=== PATIENT | male | born 1960 | race Caucasian/White ===

== ENCOUNTER → 2017-05-19 09:45 | Outpatient (CLI) | payer MEDICAID, SELFPAY ==
[2017-05-19 12:29] LABS: Hematocrit 40.3 % (40-54); Hemoglobin 13.6 g/dl (13.0-16.5); Mean Corp Hgb Conc 33.7 g/gl (32-36); Mean Corpuscular Hgb 33.9 pg (27.0-32.0); Mean Corpuscular Volume 100.5 fL (80-94); Mean Platelet Vol. 9.8 fl (6.2-12.0); Platelet Count 263 K/mm3 (150-450); RBC Distribution Width CV 12.7 % (11.6-14.6); RBC Distribution Width SD 46.2 fl (35.1-43.9); Red Blood Count 4.01 M/mm3 (4.6-6.2)
[2017-05-19 12:30] LABS: Scan Indicated on CBC? Y/N NO
[2017-05-19 12:51] LABS: Albumin, Serum 3.4 g/dL (3.2-5.0); BUN 17 mg/dL (7-18); BUN/Creat Ratio 13.9 RATIO (10-20); Calcium,Total 8.7 mg/dL (8.5-10.1); Chloride 99 mmol/L (98-107); Creatinine, Serum 1.22 mg/dL (0.70-1.30); EST Glomerular Filtration Rate 65 mL/min (>60); Est Glom Filt Rate - Afr Amer 79 mL/min (>60); Glucose 118 mg/dL (74-106); Phosphorus 2.2 mg/dL (2.5-4.9); Potassium 3.8 mmol/L (3.5-5.1); Sodium Level 135 mmol/L (136-145)
== END ==
PROVIDERS: Visit Provider Internal Medicine Nephrology
DX: N17.0 Acute kidney failure with tubular necrosis (principal); D64.9 Anemia, unspecified
CPT/HCPCS: 36415; 80069; 85027

== ENCOUNTER 2017-06-15 19:30 | Emergency (ER) | payer OTHER, MEDICAID, SELFPAY ==
[2017-06-15 19:32] VITALS: BP 148/76; PULSE 99; RESP 25; TEMP 36.9; O2SAT 96; BMI 31.8
[2017-06-15 20:15] VITALS: BP 141/80; PULSE 99; RESP 24; O2SAT 97
[2017-06-15] MEDS: Ondansetron 4 MG/2 ML Vial IV (20:15)
[2017-06-15 20:31] LABS: Absolute Neutrophil Count 4.4 X10^3/uL (2.0-7.7); Basophil# 0.04 X10^3/uL; Basophil% 0.6 % (0-1); Eosinophil# 0.06 X10^3/uL; Eosinophils% 0.9 % (0-5); Hematocrit 35.9 % (40-54); Hemoglobin 12.1 g/dl (13.0-16.5); Lymphocyte % 22.4 % (19-41); Mean Corp Hgb Conc 33.7 g/gl (32-36); Mean Corpuscular Volume 97.8 fL (80-94); Mean Platelet Vol. 9.1 fl (6.2-12.0); Monocyte# 0.71 X10^3/uL; Monocyte% 10.6 % (0-10); Neutrophil # 4.39 X10^3/uL (2.7-7.7); Neutrophil % 65.4 % (47-70); POSITIVE COUNT NO; POSITIVE DIFFERENTIAL NO; POSITIVE MORPHOLOGY NO; Platelet Count 213 K/mm3 (150-450); RBC Distribution Width SD 46.5 fl (35.1-43.9); Red Blood Count 3.67 M/mm3 (4.6-6.2); White Blood Count 6.7 K/mm3 (4.4-11.0)
[2017-06-15 20:44] LABS: ALB/GLOB Ratio 0.7 RATIO (0.9-2.4); AST(SGOT) 183 U/L (15-37); Alanine Aminotransfer ALT/SGPT 63 U/L (16-61); Alkaline Phosphatase 316 U/L (45-117); Anion Gap 12 (5-15); BUN 21 mg/dL (7-18); BUN/Creat Ratio 15.6 RATIO (10-20); Calcium,Total 7.7 mg/dL (8.5-10.1); Chloride 99 mmol/L (98-107); Creatinine, Serum 1.35 mg/dL (0.70-1.30); EST Glomerular Filtration Rate 58 mL/min (>60); Est Glom Filt Rate - Afr Amer 70 mL/min (>60); Estimated Creatinine Clearance 55.14 ml/min; Globulin 4.3 g/dL (2.2-4.2); Glucose 87 mg/dL (74-106); Lipase 420 U/L (73-393); Potassium 4.1 mmol/L (3.5-5.1); Protein, Total 7.3 g/dL (6.4-8.2); Sodium Level 132 mmol/L (136-145)
[2017-06-15 20:54] VITALS: BP 102/69; PULSE 99; RESP 15; O2SAT 94
--- NOTE | 2017-06-15 21:12 | ED.DCSUM_ITS ---
- ER Visit Summary Date of Service: 06/15/17 Chief Complaint: Abdominal pain History of Present Illness: The patient is a 56 M who has been having abdominal pain for the past 5 days. He describes sharp diffuse pain. He has also concerned about pain in his rectal area. He has had multiple episodes of diarrhea per day. They are now bloody. He has had nausea with vomiting. He took no medications for this at home. He denies any fevers. Physical Examination: Vital signs reviewed. HEENT exam unremarkable. Heart is regular rate and rhythm without murmurs. Lungs are clear to auscultation. Abdomen is soft diffuse tenderness to palpation. His rectal exam reveals significant tenderness with macerated skin around the anal area. Extremities reveal no edema. Skin exam normal. Neurologic exam normal. Test Results: Hemoglobin is 12.1 which is improved from his baseline. Sodium 132 ALT 63 AST 183 lipase 420. These are all significantly improved from his last visit Emergency Department Course and Treatment: She was given morphine and Zofran. He feels much better. I will send him home with Bentyl and cream for his anal area. He will follow up with his primary care physician Treatment Plan: [] Disposition: Discharge Impression: Abdominal pain This note was generated with [employer]ettaCore dictation software. It may contain incorrect words, spelling, and punctuation that were not noted in review of the chart prior to signing ED Disposition - Plan for ED Patient: Chief Complaint: Nausea/Vomiting/Diarrhea [facility] [[facility] -
--- NOTE | 2017-06-15 21:12 | ED.DEP ---
ED Disposition - Plan for ED Patient: Disposition: Home or Assisted Living Chief Complaint: Nausea/Vomiting/Diarrhea Instructions: ED Diet Vomiting Diarrhea Prescriptions: Dicyclomine HCl [Bentyl] 20 mg PO TIDAC #20 cap Vits A and D/White Pet/Lanolin [A and D Ointment] 113 gm TP TID #1 oint...g. [facility] [[facility] Provider] -
[2017-06-15 21:18] VITALS: BP 119/75; PULSE 95; RESP 16; O2SAT 93
== END 2017-06-15 21:23 | disposition home or self-care (01) ==
PROVIDERS: Emergency Provider Emergency Medicine
DX: R10.9 Unspecified abdominal pain (principal); R11.2 Nausea with vomiting, unspecified; R19.7 Diarrhea, unspecified; Z72.0 Tobacco use
CPT/HCPCS: 80053; 83690; 85025; 96374; 96375; 99285; A4216; J2405

== ENCOUNTER 2017-06-18 12:10 | Emergency (ER) | payer OTHER, MEDICAID, SELFPAY ==
[2017-06-18 12:12] VITALS: BP 169/93; PULSE 95; RESP 16; TEMP 36.6; O2SAT 98; BMI 31.2
--- NOTE | 2017-06-18 12:48 | ED.RN ---
PT WAS UP TO BSC AND C/O FAINT FEELING, PT WAS DIAPHORETIC, PALE, COOL COMPRESS APPLIED, VITAL SIGNS 148/73 82,22,96%
--- NOTE | 2017-06-18 12:50 | ED.RN ---
PRIMARY NURSE, DAILY PINORN INFORMED OF PT'S C/O FEELING FAINT.
--- NOTE | 2017-06-18 13:00 | CT_ITS ---
STUDY: CT ABDOMEN AND PELVIS WITH CONTRAST REASON FOR EXAM: Male, 56 years old. Rectal bleeding. Ethanol abuse. RADIATION DOSAGE (If Supplied By Facility): CTDIvol = ( 16.30 ) mGy, DLP = ( 1232.14 ) mGycm TECHNIQUE: Transaxial images were obtained from the dome of the diaphragm to the symphysis pubis without oral contrast. 100mL ml of Isovue 300 contrast was administered. Sagittal and coronal images were reconstructed. Individualized dose optimization techniques were used for this CT. COMPARISON: Comparison is made with prior study November 17, 2015. FINDINGS: The visualized lung bases are unremarkable. The visualized portions of the heart are within normal limits. There is decreased attenuation of the liver consistent with steatosis. Hepatomegaly. Normal gallbladder and extrahepatic biliary system. Normal spleen. Normal pancreas. Normal bilateral adrenal glands. Normal right kidney. Normal left kidney. There is a small hiatal hernia. Normal small intestine. There is evidence of diffuse circumferential thickening of the colon suggestive of diffuse colitis. Increased markings are seen in the surrounding peritoneal fat. There are surgical clips in the region of the appendix consistent with a prior appendectomy. There is diffuse atherosclerotic calcification of the abdominal aorta, without a demonstrated aneurysm. Normal inferior vena cava. There is borderline retroperitoneal lymphadenopathy with enlarged nodes no greater than 10mm in the short axis diameter. Normal urinary bladder. Normal abdominal wall. There are mild degenerative changes of the visualized lumbar spine. CT/Abdomen/Pelvis W IV Cont ONLY IMPRESSION: Hepatomegaly and diffuse fatty liver. Diffuse colitis. Electronically Signed: Remy Trivedi MD at 14:25 EST Tel [phone], Service support ,
[2017-06-18 13:09] LABS: Absolute Lymphocyte Count 1.51 X10^3/ul (0.83-4.51); Absolute Neutrophil Count 5.1 X10^3/uL (2.0-7.7); Basophil# 0.03 X10^3/uL; Basophil% 0.4 % (0-1); Eosinophil# 0.04 X10^3/uL; Eosinophils% 0.6 % (0-5); Hematocrit 38.4 % (40-54); Hemoglobin 13.2 g/dl (13.0-16.5); Lymphocyte # 1.51 X10^3/ul (4.0); Lymphocyte % 20.8 % (19-41); Mean Corp Hgb Conc 34.4 g/gl (32-36); Mean Corpuscular Hgb 33.2 pg (27.0-32.0); Mean Corpuscular Volume 96.7 fL (80-94); Mean Platelet Vol. 9.3 fl (6.2-12.0); Monocyte# 0.62 X10^3/uL; Monocyte% 8.5 % (0-10); Neutrophil # 5.05 X10^3/uL (2.7-7.7); Neutrophil % 69.6 % (47-70); Platelet Count 231 K/mm3 (150-450); RBC Distribution Width CV 12.5 % (11.6-14.6); Red Blood Count 3.97 M/mm3 (4.6-6.2); White Blood Count 7.3 K/mm3 (4.4-11.0)
[2017-06-18 13:10] LABS: POSITIVE COUNT NO; POSITIVE DIFFERENTIAL NO; POSITIVE MORPHOLOGY NO
[2017-06-18] MEDS: Ondansetron 4 MG/2 ML Vial IV (13:17)
[2017-06-18] MEDS: 0.9% Normal Saline 1,000 ML 150 ML IV (13:17)
[2017-06-18 13:19] LABS: International Normalized Ratio 1.2; Prothrombin Time (Protime)PT. 15.3 SECONDS (11.7-14.9)
[2017-06-18 13:20] LABS: Partial Thromboplast Time 32.2 Seconds (24.1-36.2)
[2017-06-18 13:21] LABS: AST(SGOT) 257 U/L (15-37); Alanine Aminotransfer ALT/SGPT 86 U/L (16-61); Albumin, Serum 3.3 g/dL (3.2-5.0); Alkaline Phosphatase 371 U/L (45-117); Anion Gap 14 (5-15); BUN 20 mg/dL (7-18); Bilirubin, Direct 0.29 mg/dL (0.00-0.30); Calcium,Total 8.2 mg/dL (8.5-10.1); Chloride 99 mmol/L (98-107); Creatinine, Serum 1.05 mg/dL (0.70-1.30); EST Glomerular Filtration Rate 77 mL/min (>60); Est Glom Filt Rate - Afr Amer 94 mL/min (>60); Estimated Creatinine Clearance 73.44 ml/min; Globulin 4.4 g/dL (2.2-4.2); Glucose 84 mg/dL (74-106); Potassium 3.7 mmol/L (3.5-5.1); Protein, Total 7.7 g/dL (6.4-8.2); Sodium Level 132 mmol/L (136-145)
[2017-06-18 13:55] VITALS: BP 127/84; PULSE 94; RESP 16; O2SAT 98
--- NOTE | 2017-06-18 15:34 | ED.DCSUM_ITS ---
- ER Visit Summary Date of Service: 06/18/17 Chief Complaint: Rectal bleeding History of Present Illness: The patient is a 56 M who was seen on June 15 for nausea, vomiting, diarrhea with bloody stools. Patient states he initially improved but is now worsened again. He denies nausea with dry heaves and states he has not been able to eat the last couple days. He does report passing blood rectally with bowel movements. He states he is only passing approximately 2 teaspoons of blood at the time. He is a history of an upper GI bleed secondary to Excedrin use in the past. He does have a history of alcoholism and is continuing to drink. Physical Examination: Vital signs on arrival include a blood pressure 169/93, otherwise normal. Patient's lying in bed no acute distress. He appears uncomfortable but not toxic. Heart is regular rate and rhythm. Lung sounds are clear. Abdomen is soft, distended, with mild diffuse tenderness palpation. There is no guarding or rebound. Hypoactive bowel sounds are present. Patient does appear anxious. I do not appreciate tremor. Test Results: CBC was normal white count with hemoglobin 13.2. This is improved when compared to his labs from a few days ago. Chemistry studies reveal sodium of 132 and a bicarb of 19. LFTs reveal alk phos of 371, ALT 86, AST 257. INR is 1.2. EtOH is 111. CT scan of the abdomen pelvis with IV contrast reveals hepatomegaly. There is diffuse colitis. Emergency Department Course and Treatment: Patient was given morphine, Zofran, and IV fluids. On repeat evaluation he is resting comfortably. Patient will prefer not to stay in the hospital. His blood counts are improved in a sound like he is only passing a small amount of blood at a time. I do feel that patient should be put on antibiotics and he will be started on Augmentin. He did asked to help with his anxiety and he will be given a dose of Ativan here. I think a lot of his anxiety stems from not been able to drink as much alcohol as he normally does. Patient does not want to attempt a p.o. challenge here and states he will eat something when he gets home. Treatment Plan: [] Disposition: Discharge Impression: Colitis This note was generated with BloomThat dictation software. It may contain incorrect words, spelling, and punctuation that were not noted in review of the chart prior to signing ED Disposition - Plan for ED Patient: Chief Complaint: GI Bleed [facility] [[facility]] -
--- NOTE | 2017-06-18 15:34 | ED.DEP ---
ED Disposition - Plan for ED Patient: Disposition: Home or Assisted Living Chief Complaint: GI Bleed Instructions: ED Gastroenteritis Bacterial Prescriptions: Amox/Clavulanate Tablet [Augmentin Tablet] 875 mg PO Q12H #20 tablet Referrals: [facility] [Primary Care Provider] - 1 Week
[2017-06-18] MEDS: Amox/Clavulanate 875 MG Tablet PO (15:48)
[2017-06-18] MEDS: LORazepam 2 MG/ML Syringe 1 MG IV (15:48)
[2017-06-18 15:49] VITALS: BP 159/99; PULSE 105; RESP 20
[2017-06-18 15:55] VITALS: BP 120/89; PULSE 78; RESP 21; O2SAT 96
== END 2017-06-18 15:56 | disposition home or self-care (01) ==
PROVIDERS: Emergency Provider Emergency Medicine
DX: K52.9 Noninfective gastroenteritis and colitis, unspecified (principal); F10.21 Alcohol dependence, in remission; E66.9 Obesity, unspecified; R16.0 Hepatomegaly, not elsewhere classified; I10 Essential (primary) hypertension; E78.00 Pure hypercholesterolemia, unspecified; J44.9 Chronic obstructive pulmonary disease, unspecified; K21.9 Gastro-esophageal reflux disease without esophagitis; Z86.73 Personal history of transient ischemic attack (TIA), and cerebral infarction without residual deficits; Z72.0 Tobacco use; Z86.19 Personal history of other infectious and parasitic diseases; Y90.5 Blood alcohol level of 100-119 mg/100 ml; Z79.899 Other long term (current) drug therapy
CPT/HCPCS: 74177; 80048; 80076; 80320; 85025; 85610; 85730; 96361; 96374; 96375; 99285; J7030; J7040; Q9967; A4216; G0480; J2405

== ENCOUNTER → 2017-11-18 10:53 | Outpatient (CLI) | payer MEDICAID, SELFPAY ==
[2017-11-18 13:02] LABS: Albumin, Serum 3.1 g/dL (3.2-5.0); BUN 7 mg/dL (7-18); BUN/Creat Ratio 9.1 RATIO (10-20); Calcium,Total 8.3 mg/dL (8.5-10.1); Chloride 98 mmol/L (98-107); Creatinine, Serum 0.77 mg/dL (0.70-1.30); EST Glomerular Filtration Rate 111 mL/min (>60); Est Glom Filt Rate - Afr Amer 134 mL/min (>60); Glucose 104 mg/dL (74-106); Phosphorus 2.2 mg/dL (2.5-4.9); Potassium 4.1 mmol/L (3.5-5.1); Sodium Level 130 mmol/L (136-145)
== END ==
PROVIDERS: Visit Provider Internal Medicine Nephrology
DX: N17.0 Acute kidney failure with tubular necrosis (principal)
CPT/HCPCS: 36415; 80069

== ENCOUNTER 2017-11-24 22:14 | Emergency (ER) | payer OTHER, MEDICAID, SELFPAY ==
[2017-11-24 22:15] VITALS: BP 93/57; PULSE 108; RESP 22; TEMP 37.3; O2SAT 96; BMI 31.2
[2017-11-24] MEDS: 0.9% Normal Saline 1,000 ML 1000 ML IV ×2 (22:15→23:15)
--- NOTE | 2017-11-24 23:03 | ED.VISSUMM ---
- ER Visit Summary Date of Service: 11/24/17 Chief Complaint: Weakness, near syncope History of Present Illness: The patient is a 57 M presents by EMS for weakness and near syncope at home. States almost blacked out, however recalls the events. Did have been vomiting for the last 3 days, mostly yesterday today only couple times. No hematemesis. No diarrhea. Nausea improved and tolerating some fluids. Complains of sweats. States decreased urine output over last 2 hours. States he was in dialysis a year ago short-term for rhabdomyolysis. Denied chest pains or shortness of breath. No cough. Does admit to continued alcohol daily, however only drink 2 beers today. No injuries. Denies any abdominal pain. Physical Examination: General: Alert and oriented ?3, no acute distress HEENT: Normocephalic, atraumatic. Dry mucosa membranes Neck: supple, nontender. Cardiovascular: Regular tachycardic rate and rhythm, no murmurs Respiratory: Normal breath sounds, symmetric, no distress Abdomen: Soft, nontender, nondistended, no guarding or rebound Extremities: Nontender, no edema, pulses intact ?4 Neuro: no focal neurological deficits. Test Results: WBC 9, hemoglobin 12.8. Potassium 5.3. Sodium 129. Creatinine 1.56. ALP 382. AST 162. Lactic acid 3.3. Blood culture ?2 pending. EKG sinus rate [address] or T-wave changes. Chest x-ray reviewed negative. Emergency Department Course and Treatment: Patient given 2 L of fluid. Dry mucosa membranes. Lab workup noted acute kidney injury creatinine 1.56, up from 0.7 previously. Sodium 129, potassium 5.3. Slightly elevated transaminitis. Sodium and liver enzymes similar to previous lab. Lactate 3.3. Likely from his vomiting over the past day. He has a nonsurgical abdomen. Reevaluation had improving symptoms, discussed with patient he is having multiple abnormal electrolytes including kidney injury and lactic acidosis. I recommend him stay overnight for hydration and recheck labs, however he declines this. Risks and benefits discussed. He is alert and oriented ?3. He does have capabilities of making his own decisions. He states he has an appointment with kitchen help handyman in 2 days. He will keep his appointment, however any worsening symptoms he understands to return. AMA papers were signed. Treatment Plan: [] Disposition: AGAINST MEDICAL ADVICE Impression: 1. Acute kidney injury 2. Lactic acidosis 3. Hyponatremia 4. Transaminitis This note was generated with W[employer] dictation software. It may contain incorrect words, spelling, and punctuation that were not noted in review of the chart prior to signing ED Disposition - Plan for ED Patient: Disposition: Home or Assisted Living Chief Complaint: Weakness Diagnosis: Acute kidney injury, Lactic acidosis, Hyponatremia, Transaminitis Instructions: ED Insufficiency Renal, ED Diet Vomiting Diarrhea Referrals: [facility] [Primary Care Provider] - Additional Instructions: Creatinine 1.56. Sodium 129. Potassium 5.3. ALP 382. AST 162. Continue oral hydration, follow with your kidney doctor. Return if worsening symptoms.
[2017-11-24 23:13] VITALS: BP 119/63; PULSE 102; RESP 21; O2SAT 95
[2017-11-24 23:16] LABS: Absolute Lymphocyte Count 1.47 X10^3/ul (0.83-4.51); Absolute Neutrophil Count 6.7 X10^3/uL (2.0-7.7); Basophil# 0.03 X10^3/uL; Basophil% 0.3 % (0-1); Eosinophil# 0.09 X10^3/uL; Hematocrit 37.9 % (40-54); Hemoglobin 12.8 g/dl (13.0-16.5); Lymphocyte # 1.47 X10^3/ul (4.0); Lymphocyte % 16.3 % (19-41); Mean Corp Hgb Conc 33.8 g/gl (32-36); Mean Corpuscular Hgb 31.6 pg (27.0-32.0); Mean Corpuscular Volume 93.6 fL (80-94); Mean Platelet Vol. 9.9 fl (6.2-12.0); Monocyte# 0.69 X10^3/uL; Monocyte% 7.7 % (0-10); Neutrophil # 6.72 X10^3/uL (2.7-7.7); Neutrophil % 74.6 % (47-70); Platelet Count 161 K/mm3 (150-450); RBC Distribution Width CV 13.5 % (11.6-14.6); RBC Distribution Width SD 46.3 fl (35.1-43.9); Red Blood Count 4.05 M/mm3 (4.6-6.2)
[2017-11-24 23:17] LABS: POSITIVE COUNT NO; POSITIVE DIFFERENTIAL NO; POSITIVE MORPHOLOGY NO
[2017-11-24 23:36] LABS: ALB/GLOB Ratio 0.5 RATIO (0.9-2.4); AST(SGOT) 162 U/L (15-37); Alanine Aminotransfer ALT/SGPT 38 U/L (16-61); Albumin, Serum 2.6 g/dL (3.2-5.0); Alkaline Phosphatase 382 U/L (45-117); Anion Gap 11 (5-15); BUN 6 mg/dL (7-18); BUN/Creat Ratio 3.8 RATIO (10-20); Chloride 95 mmol/L (98-107); Creatinine, Serum 1.56 mg/dL (0.70-1.30); EST Glomerular Filtration Rate 49 mL/min (>60); Est Glom Filt Rate - Afr Amer 59 mL/min (>60); Estimated Creatinine Clearance 48.85 ml/min; Glucose 80 mg/dL (74-106); Potassium 5.3 mmol/L (3.5-5.1); Protein, Total 7.6 g/dL (6.4-8.2); Sodium Level 129 mmol/L (136-145)
[2017-11-24 23:38] LABS: Lactic Acid 3.3 mmol/L (0.4-2.0)
--- NOTE | 2017-11-24 23:39 | ED.RN ---
LAB CALLED TO REPORT LACTIC ACID 3.3. DR. DANG NOTIFIED.
[2017-11-25] MEDS: diazePAM 2 MG Tablet PO (00:39)
[2017-11-25 00:49] VITALS: BP 111/63; PULSE 106; RESP 20; O2SAT 96
--- NOTE | 2017-11-25 00:50 | ED.RN ---
AFTER DR. DANG CONVERSATION WITH PT ABOUT ADMISSION TO HOSPITAL, PT DECIDED TO LEAVE AMA. PT WAS EXPLAINED THE RISK OF LEAVING AND IS CALLING A CAB.
[2017-11-25 03:04] LABS: Reflex Lactate? Y
== END 2017-11-25 00:52 | disposition left against medical advice (07) ==
PROVIDERS: Emergency Provider Emergency Medicine
DX: N17.9 Acute kidney failure, unspecified (principal); E87.2 Acidosis; E87.1 Hypo-osmolality and hyponatremia; I10 Essential (primary) hypertension; E78.00 Pure hypercholesterolemia, unspecified; J44.9 Chronic obstructive pulmonary disease, unspecified; Z72.0 Tobacco use
CPT/HCPCS: 71046; 80053; 83605; 85025; 87040; 93005; 94760; 96360; 99285; J7030; A4216

== ENCOUNTER → 2017-11-26 10:47 | Outpatient (CLI) | payer MEDICAID, SELFPAY ==
[2017-11-26 12:32] LABS: Urine Sodium 18 mmol/L (Not Establ.)
[2017-11-26 12:38] LABS: Osmolality, Urine 92 mOsm/KG
[2017-11-26 12:50] LABS: ALB/GLOB Ratio 0.6 RATIO (0.9-2.4); AST(SGOT) 111 U/L (15-37); Alanine Aminotransfer ALT/SGPT 41 U/L (16-61); Albumin, Serum 2.7 g/dL (3.2-5.0); Alkaline Phosphatase 370 U/L (45-117); Anion Gap 13 (5-15); BUN 9 mg/dL (7-18); BUN/Creat Ratio 9.6 RATIO (10-20); Calcium,Total 8.2 mg/dL (8.5-10.1); Chloride 103 mmol/L (98-107); Creatinine, Serum 0.94 mg/dL (0.70-1.30); EST Glomerular Filtration Rate 88 mL/min (>60); Est Glom Filt Rate - Afr Amer 107 mL/min (>60); Globulin 4.6 g/dL (2.2-4.2); Glucose 92 mg/dL (74-106); Potassium 3.4 mmol/L (3.5-5.1); Protein, Total 7.3 g/dL (6.4-8.2); Sodium Level 136 mmol/L (136-145)
== END ==
PROVIDERS: Visit Provider Internal Medicine Nephrology
DX: N17.9 Acute kidney failure, unspecified (principal); E87.1 Hypo-osmolality and hyponatremia
CPT/HCPCS: 36415; 80053; 83935; 84300

== ENCOUNTER → 2018-01-26 14:34 | Outpatient (CLI) | payer OTHER, MEDICAID, SELFPAY ==
[2018-01-26 16:54] LABS: ALB/GLOB Ratio 0.7 RATIO (0.9-2.4); AST(SGOT) 48 U/L (15-37); Alanine Aminotransfer ALT/SGPT 24 U/L (16-61); Albumin, Serum 3.2 g/dL (3.2-5.0); Alkaline Phosphatase 253 U/L (45-117); Anion Gap 12 (5-15); BUN 9 mg/dL (7-18); BUN/Creat Ratio 8.7 RATIO (10-20); Calcium,Total 8.9 mg/dL (8.5-10.1); Chloride 97 mmol/L (98-107); Creatinine, Serum 1.04 mg/dL (0.70-1.30); EST Glomerular Filtration Rate 78 mL/min (>60); Est Glom Filt Rate - Afr Amer 95 mL/min (>60); Globulin 4.9 g/dL (2.2-4.2); Glucose 97 mg/dL (74-106); Potassium 4.1 mmol/L (3.5-5.1); Protein, Total 8.1 g/dL (6.4-8.2); Sodium Level 131 mmol/L (136-145)
== END ==
PROVIDERS: Visit Provider Internal Medicine Nephrology
DX: N17.9 Acute kidney failure, unspecified (principal)
CPT/HCPCS: 36415; 80053

== ENCOUNTER → 2018-05-27 14:12 | Outpatient (CLI) | payer MEDICAID, SELFPAY ==
[2018-05-27 16:31] LABS: Albumin, Serum 3.4 g/dL (3.2-5.0); BUN 9 mg/dL (7-18); BUN/Creat Ratio 7.7 RATIO (10-20); Calcium,Total 8.9 mg/dL (8.5-10.1); Chloride 100 mmol/L (98-107); Creatinine, Serum 1.17 mg/dL (0.70-1.30); EST Glomerular Filtration Rate 68 mL/min (>60); Est Glom Filt Rate - Afr Amer 82 mL/min (>60); Glucose 95 mg/dL (74-106); Phosphorus 1.8 mg/dL (2.5-4.9); Potassium 4.1 mmol/L (3.5-5.1); Sodium Level 134 mmol/L (136-145)
== END ==
PROVIDERS: Visit Provider Internal Medicine Nephrology
DX: N17.0 Acute kidney failure with tubular necrosis (principal)
CPT/HCPCS: 36415; 80069

== ENCOUNTER 2018-08-17 17:52 | Emergency (ER) | payer OTHER, MEDICAID, SELFPAY ==
[2018-08-17 17:54] VITALS: BP 185/87; PULSE 89; RESP 16; TEMP 36.7; O2SAT 93; BMI 31.3
--- NOTE | 2018-08-17 17:59 | ED.RN ---
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 PT IS UNABLE TO DRIVE HOME. CALL TAMMI FOR RIDE.
[2018-08-17 18:16] VITALS: BP 185/87; PULSE 89; RESP 16; TEMP 36.7; O2SAT 93
[2018-08-17 18:19] LABS: Absolute Lymphocyte Count 1.22 X10^3/ul (0.83-4.51); Absolute Neutrophil Count 5.6 X10^3/uL (2.0-7.7); Basophil# 0.03 X10^3/uL; Basophil% 0.4 % (0-1); Eosinophil# 0.03 X10^3/uL; Eosinophils% 0.4 % (0-5); Hemoglobin 13.5 g/dl (13.0-16.5); Lymphocyte # 1.22 X10^3/ul (4.0); Lymphocyte % 16.5 % (19-41); Mean Corp Hgb Conc 33.8 g/gl (32-36); Mean Corpuscular Hgb 29.3 pg (27.0-32.0); Mean Corpuscular Volume 86.8 fL (80-94); Mean Platelet Vol. 9.3 fl (6.2-12.0); Monocyte# 0.54 X10^3/uL; Monocyte% 7.3 % (0-10); Neutrophil # 5.57 X10^3/uL (2.7-7.7); Neutrophil % 75.3 % (47-70); Platelet Count 183 K/mm3 (150-450); RBC Distribution Width CV 15.2 % (11.6-14.6); RBC Distribution Width SD 48.3 fl (35.1-43.9); Red Blood Count 4.61 M/mm3 (4.6-6.2); White Blood Count 7.4 K/mm3 (4.4-11.0)
[2018-08-17 18:21] LABS: POSITIVE COUNT NO; POSITIVE DIFFERENTIAL NO
[2018-08-17 18:22] LABS: POSITIVE MORPHOLOGY NO
[2018-08-17 18:32] LABS: Anion Gap 5 (5-15); BUN 12 mg/dL (7-18); BUN/Creat Ratio 12.8 RATIO (10-20); Calcium,Total 8.8 mg/dL (8.5-10.1); Chloride 101 mmol/L (98-107); Creatinine, Serum 0.94 mg/dL (0.70-1.30); EST Glomerular Filtration Rate 88 mL/min (>60); Est Glom Filt Rate - Afr Amer 107 mL/min (>60); Estimated Creatinine Clearance 81.06 ml/min; Glucose 95 mg/dL (74-106); Potassium 4.3 mmol/L (3.5-5.1); Sodium Level 133 mmol/L (136-145)
[2018-08-17 18:47] LABS: Bacteria 0 SEEN /hpf (None Seen); Mucous, Urine 0 SEEN /hpf (<or=2+); Red Blood Cells-Urine 0 SEEN /hpf (0-5); Squamous Epithelial Cells - UA 0 SEEN /hpf (0-5); White Blood Cells 0 SEEN /hpf (0-5)
[2018-08-17 19:02] LABS: Color, Urine Yellow (Yellow); Glucose, Dipstick Normal (Normal); Ketone-Dipstick Negative (Negative); Leukocyte Esterase-Dipstick Negative /ul (Negative); Nitrite-Dipstick Negative (Negative); Occult Blood-Urine 10 /ul (Negative); Protein-Dipstick 100 mg/dl (Negative); Urine Bilirubin Dipstick Negative (Negative); Urine Clarity Clear (Clear); Urine Urobilinogen Normal (Normal)
[2018-08-17 19:22] VITALS: BP 185/104; PULSE 90; RESP 16; TEMP 36.8; O2SAT 94
--- NOTE | 2018-08-17 19:25 | ED.DCSUM_ITS ---
History of Present Illness Chief Complaint: General Illness Informant: Patient Onset: Yesterday Context: Gradual Onset Timing: Continuous Narrative: Patient states since yesterday he has had a constellation of symptoms including nonproductive cough, nausea with dry heaving, and left-sided mid abdominal cramping, myalgias, malaise, sweats, subjective fevers, increased anxiety, swelling of both legs, and some shortness of breath that does not feel like wheezing/COPD which she has a history of. He is on no home oxygen. Denies any chest pain. No diarrhea or changes in bowel movements, no blood or melena. No urinary symptoms. States he is able to eat and drink, simply had dry heaving only. States he is otherwise always compliant with his medications but has not taken them today which includes his anxiety medicine. - Past Medical History (1) Anxiety Status: Chronic (2) Alcohol abuse Status: Chronic (3) Atrial fibrillation with RVR Status: Resolved (4) COPD (chronic obstructive pulmonary disease) Status: Chronic (5) Carotid stenosis Status: Chronic (6) Colon, diverticulosis Status: Chronic (7) Depression Status: Chronic (8) GERD (gastroesophageal reflux disease) Status: Chronic (9) HTN (hypertension) Status: Chronic (10) Hepatitis C Status: Chronic (11) Hyperlipemia Status: Chronic (12) Pancreatitis Status: Chronic (13) Stroke Status: Chronic (14) RENETTA (obstructive sleep apnea) Status: Chronic Past Medical History - Allergies and Home Meds Allergies/Adverse Reactions: Allergies No Known Allergies Allergy (Verified 08/17/18 17:56) Primary Care Physician: [place] [Primary [facility] Provider] - Surgical History: - - surgery on left foot due to accident, carotid endarterectemy on the right side. Smoking Status: Current every day smoker - Family History Maternal Family History: Reports: No pertinent history Paternal Family History: Reports: - - alcoholism Review of Systems General: Reports: Chills, Fever, Malaise, Subjective, Sweats Eyes: Denies: Visual changes - bilaterally, Diplopia ENT: Denies: Rhinorrhea, Sore throat Cardiovascular: Denies: Chest pain, Palpitations Respiratory: Reports: Dyspnea, Cough, Dyspnea on exertion. Denies: Sputum, Orthopnea, Paroxysmal nocturnal dyspnea Gastrointestinal: Reports: Abdominal pain, Nausea, Vomiting. Denies: Diarrhea, Melena, Hematochezia Genitourinary: Denies: Dysuria, Hematuria, Frequency Musculoskeletal: Reports: Myalgias, Swelling. Denies: Back pain, Extremity Pain Skin: Denies: Rash, Abscess, Wounds Neurological: Denies: Headache, Weakness, Numbness Physical Exam Vital Signs/Narrative: Vital Signs Temp Pulse Resp BP Pulse Ox 08/17/18 18:16 98.1 F 89 16 185/87 H 93 08/17/18 17:54 98.1 F 89 16 185/87 H 93 Inital Vital Signs reviewed: Yes General: Well nourished, Well developed, No Acute Distress Head: Normocephalic, Atraumatic Eyes: Perrl, EOMI ENT: Moist mucous membranes, No rhinorrhea. Negative for: Sinus tenderness Neck: Supple, Nontender, No lymphadenopathy, No JVD Cardiovascular: Regular rate, Regular rhythm, No murmurs, Normal S1, Normal S2. Negative for: Tachycardia Respiratory: No distress, CTA bilaterally, Chest nontender Abdomen: Soft, Nondistended, Normal bowel sounds, Tender - mild LUQ and across upper abd Back: Nontender, Normal Inspection. Negative for: CVA tenderness Extremities: Nontender, No edema. Negative for: Calf Tenderness Skin: Normal color, No rash, No Trauma Neurological: Alert, Oriented x3, Cranial nerves II-XII grossly intact, Normal Strength, Normal Sensation Psychological: Normal Mood, Agitated - and anxious Diagnostic/Tx/Re-eval Impressions Chest X-Ray 08/17/18 19:40 IMPRESSION: No acute cardiopulmonary pathology Electronically Signed: Peter Amaral MD at 20:06 EDT , Service support , 08/17/18 19:40 CXR [Chest PA and Lateral] [RAD] Stat Laboratory Results 08/17/18 08/17/18 08/17/18 18:10 18:10 18:10 WBC 7.4 RBC 4.61 Hgb 13.5 Hct 40.0 MCV 86.8 MCH 29.3 MCHC 33.8 RDW 15.2 H RDW Differential 48.3 H Plt Count 183 MPV 9.3 Immature Gran % (Auto) 0.100 Neut % (Auto) 75.3 H Lymph % (Auto) 16.5 L [place] % (Auto) 7.3 Eos % (Auto) 0.4 Baso % (Auto) 0.4 Absolute Neuts (auto) 5.6 Absolute Lymphs (auto) 1.22 Total Counted Not Reportable Sodium 133 L Potassium 4.3 Chloride 101 Carbon Dioxide 27.0 Anion Gap 5 BUN 12 Creatinine 0.94 Estim Creat Clear Calc 81.06 Est GFR (MDRD) Af Amer 107 Est GFR (MDRD) Non-Af 88 BUN/Creatinine Ratio 12.8 Glucose 95 Calcium 8.8 Total Bilirubin Direct Bilirubin AST ALT Alkaline Phosphatase Troponin I B-Natriuretic Peptide 802.2 H Total Protein Albumin Globulin Urine Color Urine Clarity Urine pH Ur Specific [place] Urine Protein Urine Glucose (UA) Urine Ketones Urine Occult Blood Urine Nitrite Urine Bilirubin Urine Urobilinogen Ur Leukocyte Esterase Urine RBC Urine WBC Ur Squamous Epith Cells Urine Bacteria Urine Mucus 08/17/18 08/17/18 18:10 18:40 WBC RBC Hgb Hct MCV MCH MCHC RDW RDW Differential Plt Count MPV Immature Gran % (Auto) Neut % (Auto) Lymph % (Auto) [place] % (Auto) Eos % (Auto) Baso % (Auto) Absolute Neuts (auto) Absolute Lymphs (auto) Total Counted Sodium Potassium Chloride Carbon Dioxide Anion Gap BUN Creatinine Estim Creat Clear Calc Est GFR (MDRD) Af Amer Est GFR (MDRD) Non-Af BUN/Creatinine Ratio Glucose Calcium Total Bilirubin 0.50 Direct Bilirubin 0.24 AST 196 H ALT 47 Alkaline Phosphatase 403 H Troponin I < 0.015 B-Natriuretic Peptide Total Protein 8.1 Albumin 3.5 Globulin 4.6 H Urine Color Yellow Urine Clarity Clear Urine pH 6.0 Ur Specific [place] 1.010 Urine Protein 100 H Urine Glucose (UA) Normal Urine Ketones Negative Urine Occult Blood 10 H Urine Nitrite Negative Urine Bilirubin Negative Urine Urobilinogen Normal Ur Leukocyte Esterase Negative Urine RBC 0 SEEN Urine WBC 0 SEEN Ur Squamous Epith Cells 0 SEEN Urine Bacteria 0 SEEN Urine Mucus 0 SEEN - Medical Decision Making Other than slight elevations of AST and alkaline phosphatase, which she has had chronically in the past, his work-up is unremarkable showing no pneumonia cardiac etiology. He was treated with Zofran, fluids, Toradol, GI cocktail. On reevaluation he is feeling much better and on reexamination, his abdomen is soft nontender and he states the pain is gone. Therefore I do not think he needs a CT of the abdomen and pelvis. He has no leukocytosis. I suspect he has a viral syndrome. Prescribed Zofran, supportive care advised as well as follow-up if he does not have resolution or improvement after a week. He is comfortable with that plan going home. ED Disposition - Plan for ED Patient: Disposition: Home or Assisted Living Diagnosis: Viral syndrome, Left sided abdominal pain, Anxiety Instructions: ED Viral Syndrome Prescriptions: Ondansetron [Zofran] 8 mg PO Q8H PRN PRN #10 tablet PRN Reason: Nausea [facility] - 1 Week if not improving
--- NOTE | 2018-08-17 19:40 | RAD_ITS ---
STUDY: X-RAY CHEST REASON FOR EXAM: Male, 57 years old. Cough with nausea TECHNIQUE: PA and lateral COMPARISON: November 24, 2017 FINDINGS: Nonspecific elevation of the right hemidiaphragm. Lungs are clear. There is no demonstrated pleural abnormality. Normal size heart. Normal mediastinum and emma. Normal visualized pulmonary arteries. Normal visualized aortic arch and descending thoracic aorta. Vascular stent noted within the right apical region Normal visualized thoracic spine. Normal visualized ribs, clavicles, and shoulders. There is no demonstrated abnormality of the visualized soft tissue structures of the upper abdomen. No significant change since prior study RAD/Chest PA and Lateral IMPRESSION: No acute cardiopulmonary pathology Electronically Signed: Peter Amaral MD at 20:06 EDT , Service support ,
[2018-08-17] MEDS: Ketorolac 30 MG/ML Syringe IV (19:42)
[2018-08-17] MEDS: LORazepam 2 MG/ML Syringe 0.5 MG IV (19:42)
[2018-08-17] MEDS: Ondansetron 4 MG/2 ML Vial IV (19:42)
[2018-08-17] MEDS: Mag Hydrox/Al Hydrox/Simeth 30 ML UDC PO (19:44)
[2018-08-17 19:57] LABS: AST(SGOT) 196 U/L (15-37); Alanine Aminotransfer ALT/SGPT 47 U/L (16-61); Albumin, Serum 3.5 g/dL (3.2-5.0); Alkaline Phosphatase 403 U/L (45-117); Bilirubin, Direct 0.24 mg/dL (0.00-0.30); Globulin 4.6 g/dL (2.2-4.2); Protein, Total 8.1 g/dL (6.4-8.2)
[2018-08-17 20:00] VITALS: BP 186/101; PULSE 94; RESP 16; TEMP 36.8; O2SAT 94
[2018-08-17 20:07] LABS: BNP,B-Type NATRIURETIC PEPTIDE 802.2 pg/mL (0-100)
[2018-08-17 21:28] VITALS: BP 169/81; PULSE 78; RESP 17; O2SAT 97
== END 2018-08-17 21:30 | disposition home or self-care (01) ==
PROVIDERS: Emergency Provider Emergency Medicine
DX: B34.9 Viral infection, unspecified (principal); F41.9 Anxiety disorder, unspecified; R10.9 Unspecified abdominal pain; F17.200 Nicotine dependence, unspecified, uncomplicated; G47.33 Obstructive sleep apnea (adult) (pediatric); E78.5 Hyperlipidemia, unspecified; I10 Essential (primary) hypertension; K21.9 Gastro-esophageal reflux disease without esophagitis; B18.2 Chronic viral hepatitis C; J44.9 Chronic obstructive pulmonary disease, unspecified; I48.91 Unspecified atrial fibrillation; F10.10 Alcohol abuse, uncomplicated; Y90.9 Presence of alcohol in blood, level not specified; Z86.73 Personal history of transient ischemic attack (TIA), and cerebral infarction without residual deficits
CPT/HCPCS: 71046; 80048; 80076; 81001; 83880; 84484; 85025; 96361; 96374; 96375; 99284; J7040; A4216; J2405

== ENCOUNTER 2018-08-30 19:37 | Emergency (ER) | payer OTHER, MEDICAID, SELFPAY ==
[2018-08-30 19:38] VITALS: BP 145/82; PULSE 83; RESP 15; TEMP 36.6; O2SAT 94; BMI 30.4
--- NOTE | 2018-08-30 20:18 | ED.VISSUMM ---
- ER Visit Summary Date of Service: 08/30/18 Chief Complaint: Anxiety History of Present Illness: The patient is a 57 M dates for 3 weeks he has had body aches with associated nausea, vomiting, diarrhea and shakes. [facility] Was seen here 2 weeks ago had a negative work-up at that time. He has had 2 prior strokes from right carotid disease with a carotid endarterectomy. He had prior pancreatitis. Denies any fever. No dysuria. No melena. Physical Examination: Well-appearing middle-age male. Vital signs stable afebrile. H EENT exam unremarkable. Neck nontender no lymphadenopathy. Lungs clear to auscultation bilaterally. Heart regular rhythm no murmur. Abdomen is soft and nontender normal bowel sounds no peritoneal signs. Patient is moving all 4 extremities. Neurovascularly intact. Calves are nontender without edema or cords. Neurologically he is awake and alert with no focal motor deficits. Equal symmetrical automobile contract clerk strength bilaterally. Dorsi plantarflexion intact. Test Results: CBC unremarkable white count 7. Hemoglobin 13. No bands. Chemistries sodium 133. Gap of 10. Creatinine 1. Emergency Department Course and Treatment: Clinically patient has an unremarkable exam I did screening labs. I will get a liter normal saline due to his vomiting and diarrhea. Patient was given a milligram of Ativan per his request for anxiety. On repeat 2240 is doing well. Treatment Plan: Follow-up with the MD in [place]. Disposition: discharge Impression: Nausea, vomiting and diarrhea Anxiety This note was generated with [employer] dictation software. It may contain incorrect words, spelling, and punctuation that were not noted in review of the chart prior to signing ED Disposition - Plan for ED Patient: Disposition: Home or Assisted Living Diagnosis: Anxiety Instructions: ED Stress React [facility] - 3-5 Days if not improving Additional Instructions: Plenty of fluids and rest., Follow-up with your MD doctor.
--- NOTE | 2018-08-30 20:45 | ED.DEP ---
ED Disposition - Plan for ED Patient: Disposition: Home or Assisted Living Diagnosis: Anxiety Instructions: ED Stress React [facility] - 3-5 Days if not improving Additional Instructions: Plenty of fluids and rest., [facility].
[2018-08-30 20:52] LABS: Absolute Lymphocyte Count 1.16 X10^3/ul (0.83-4.51); Absolute Neutrophil Count 5.4 X10^3/uL (2.0-7.7); Basophil# 0.04 X10^3/uL; Basophil% 0.5 % (0-1); Eosinophil# 0.05 X10^3/uL; Eosinophils% 0.7 % (0-5); Hematocrit 38.6 % (40-54); Hemoglobin 13.2 g/dl (13.0-16.5); Lymphocyte # 1.16 X10^3/ul (4.0); Lymphocyte % 15.6 % (19-41); Mean Corp Hgb Conc 34.2 g/gl (32-36); Mean Corpuscular Hgb 30.1 pg (27.0-32.0); Mean Corpuscular Volume 88.1 fL (80-94); Mean Platelet Vol. 9.5 fl (6.2-12.0); Monocyte# 0.72 X10^3/uL; Monocyte% 9.7 % (0-10); Neutrophil # 5.44 X10^3/uL (2.7-7.7); Neutrophil % 73.4 % (47-70); Platelet Count 166 K/mm3 (150-450); RBC Distribution Width CV 15.6 % (11.6-14.6); RBC Distribution Width SD 50.1 fl (35.1-43.9); Red Blood Count 4.38 M/mm3 (4.6-6.2); White Blood Count 7.4 K/mm3 (4.4-11.0)
[2018-08-30] MEDS: 0.9% Normal Saline 1,000 ML 1000 ML IV (20:53)
[2018-08-30 20:54] VITALS: BP 141/73; PULSE 82; RESP 15; O2SAT 93
[2018-08-30 20:57] LABS: POSITIVE COUNT NO; POSITIVE DIFFERENTIAL NO; POSITIVE MORPHOLOGY NO
[2018-08-30] MEDS: LORazepam 1 MG Tablet PO (21:03)
[2018-08-30 21:37] LABS: Anion Gap 10 (5-15); BUN 14 mg/dL (7-18); BUN/Creat Ratio 12.5 RATIO (10-20); Calcium,Total 8.5 mg/dL (8.5-10.1); Chloride 100 mmol/L (98-107); Creatinine, Serum 1.12 mg/dL (0.70-1.30); EST Glomerular Filtration Rate 72 mL/min (>60); Est Glom Filt Rate - Afr Amer 87 mL/min (>60); Estimated Creatinine Clearance 68.03 ml/min; Glucose 89 mg/dL (74-106); Potassium 3.8 mmol/L (3.5-5.1); Sodium Level 133 mmol/L (136-145)
[2018-08-30 22:00] VITALS: RESP 15; O2SAT 97
[2018-08-30 23:06] VITALS: BP 141/73; PULSE 82; RESP 15; O2SAT 93
== END 2018-08-30 23:07 | disposition home or self-care (01) ==
PROVIDERS: Emergency Provider Emergency Medicine
DX: R11.2 Nausea with vomiting, unspecified (principal); R19.7 Diarrhea, unspecified; F41.9 Anxiety disorder, unspecified; Z86.73 Personal history of transient ischemic attack (TIA), and cerebral infarction without residual deficits; Z72.0 Tobacco use
CPT/HCPCS: 80048; 85025; 96360; 99285; J7030; A4216

== ENCOUNTER 2019-04-25 09:38 | Inpatient (IN) | payer MEDICARE, SELFPAY ==
[2019-04-25] VITALS (14 sets, daily range): BP systolic 115–172; BP diastolic 76–98; PULSE 83–115; RESP 16–19; TEMP 36.4–36.9; O2SAT 92–100; BMI 30.4; BMI 29.0
--- NOTE | 2019-04-25 09:58 | EKG12_ITS ---
Test Reason : DIZZINESS Blood Pressure : / mmHG Vent. Rate : 088 BPM Atrial Rate : 088 BPM P-R Int : 152 ms QRS Dur : 088 ms QT Int : 402 ms P-R-T Axes : 037 054 051 degrees QTc Int : 486 ms Normal sinus rhythm Prolonged QT Abnormal ECG Confirmed by WILFRED WASHINGTON, ANGELES ([id number]), purchasing expeditor LENY SARMIENTO ([id number]) on 04/27/2019 10:03:40 AM Referred By: Luci Moore Confirmed By:ANGELES HARDIN MD
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
[2019-04-25 10:13] LABS: Absolute Lymphocyte Count 1.04 X10^3/uL (0.83-4.51); Absolute Neutrophil Count 3.8 X10^3/uL (2.0-7.7); Basophil# 0.03 X10^3/uL; Basophil% 0.5 % (0-1); Eosinophil# 0.05 X10^3/uL; Eosinophils% 0.9 % (0-5); Hematocrit 27.3 % (40-54); Hemoglobin 8.8 g/dL (13.0-16.5); Lymphocyte # 1.04 X10^3/ul (4.0); Mean Corp Hgb Conc 32.2 g/dL (32-36); Mean Corpuscular Hgb 28.7 pg (27.0-32.0); Mean Corpuscular Volume 88.9 fL (80-94); Mean Platelet Vol. 9.2 fl (6.2-12.0); Monocyte# 0.53 X10^3/uL; Monocyte% 9.7 % (0-10); NRBC Flagged by Analyzer 0 % (0-5); Neutrophil % 69.5 % (47-70); Platelet Count 100 K/mm3 (150-450); RBC Distribution Width CV 17.9 % (11.6-14.6); RBC Distribution Width SD 58.1 fl (35.1-43.9); Red Blood Count 3.07 M/mm3 (4.6-6.2); White Blood Count 5.5 K/mm3 (4.4-11.0)
[2019-04-25] MEDS: 0.9% Normal Saline 1,000 ML 1000 ML IV (10:26)
[2019-04-25 10:32] LABS: AST(SGOT) 107 U/L (15-37); Alanine Aminotransfer ALT/SGPT 27 U/L (16-61); Albumin, Serum 2.3 g/dL (3.2-5.0); Alkaline Phosphatase 276 U/L (45-117); Anion Gap 10 (5-15); BUN 12 mg/dL (7-18); BUN/Creat Ratio 10.3 RATIO (10-20); Calcium,Total 8.4 mg/dL (8.5-10.1); Chloride 99 mmol/L (98-107); Creatinine, Serum 1.17 mg/dL (0.70-1.30); EST Glomerular Filtration Rate 68 mL/min (>60); Est Glom Filt Rate - Afr Amer 82 mL/min (>60); Estimated Creatinine Clearance 64.34 ml/min; Globulin 4.4 g/dL (2.2-4.2); Glucose 87 mg/dL (74-106); Lipase 222 U/L (73-393); Potassium 4.2 mmol/L (3.5-5.1); Protein, Total 6.7 g/dL (6.4-8.2); Sodium Level 131 mmol/L (136-145)
[2019-04-25 10:41] LABS: Bacteria 0 SEEN /hpf (None Seen); Mucous, Urine 0 SEEN /hpf (<or=2+); Red Blood Cells-Urine 0 SEEN /hpf (0-5); Squamous Epithelial Cells - UA 0 SEEN /hpf (0-5); White Blood Cells 0 SEEN /hpf (0-5)
[2019-04-25 10:58] LABS: Color, Urine Yellow (Yellow); Glucose, Dipstick Normal (Normal); Ketone-Dipstick Negative (Negative); Leukocyte Esterase-Dipstick Negative /ul (Negative); Nitrite-Dipstick Negative (Negative); Occult Blood-Urine Negative /ul (Negative); Protein-Dipstick Negative (Negative); Specific Gravity, Urine 1.005 (1.002-1.030); Urine Bilirubin Dipstick Negative (Negative); Urine Clarity Clear (Clear); Urine Urobilinogen Normal (Normal)
[2019-04-25] MEDS: LORazepam 2 MG/ML Syringe 0.5 MG IV (11:11)
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
--- NOTE | 2019-04-25 12:29 | ED.RN ---
keys, shoes, shirt and a bag of medication were placed in pts belonging bag and taken to floor.
[2019-04-25 13:19] LABS: International Normalized Ratio 1.1; Prothrombin Time (Protime)PT. 14.4 SECONDS (11.7-14.9)
[2019-04-25 13:20] LABS: Magnesium 1.9 mg/dL (1.6-2.6)
[2019-04-25 13:46] LABS: Hemoglobin 9.3 g/dL (13.0-16.5)
[2019-04-25] MEDS: Lactated Ringers 1,000 ML 100 ML IV ×2 (13:49→23:12)
[2019-04-25] MEDS: LORazepam 1 MG Tablet 2 MG PO ×3 (13:55→23:18)
[2019-04-25] MEDS: Gabapentin 300 MG Capsule PO (13:59)
--- NOTE | 2019-04-25 17:42 | NURSING ---
pt had a small amt of bright red blood in toilet after having a bm.
[2019-04-25] MEDS: Acetaminophen 325 MG Tablet 650 MG PO (18:21)
[2019-04-25] MEDS: Ipratropium/Albuterol Sulfate 3 ML AMPUL.NEB INHALATION (18:52)
[2019-04-25 21:33] LABS: Hematocrit 28.4 % (40-54); Hemoglobin 9.1 g/dL (13.0-16.5)
[2019-04-25] MEDS: Metoprolol Tartrate 50 MG Tablet PO (21:46)
[2019-04-25] MEDS: Gabapentin 600 MG Tablet PO (21:46)
[2019-04-25] MEDS: busPIRone 5 MG Tablet 20 MG PO (21:46)
[2019-04-26] VITALS (18 sets, daily range): BP systolic 106–170; BP diastolic 64–122; PULSE 93–113; RESP 16–20; TEMP 36.5–37; O2SAT 92–98; BMI 29.0
[2019-04-26] MEDS: LORazepam 2 MG/ML Syringe IV ×2 (02:58→07:08)
[2019-04-26] MEDS: 0.9% Saline Lock 10 ML Syringe IV (03:03)
[2019-04-26 06:02] LABS: Absolute Lymphocyte Count 0.33 X10^3/uL (0.83-4.51); Absolute Neutrophil Count 3.4 X10^3/uL (2.0-7.7); Basophil# 0.03 X10^3/uL; Basophil% 0.7 % (0-1); Eosinophil# 0.07 X10^3/uL; Eosinophils% 1.7 % (0-5); Hematocrit 29.1 % (40-54); Hemoglobin 9.1 g/dL (13.0-16.5); Lymphocyte # 0.33 X10^3/ul (4.0); Lymphocyte % 7.8 % (19-41); Mean Corp Hgb Conc 31.3 g/dL (32-36); Mean Corpuscular Hgb 27.8 pg (27.0-32.0); Mean Platelet Vol. 9.8 fl (6.2-12.0); Monocyte# 0.37 X10^3/uL; Monocyte% 8.8 % (0-10); NRBC Flagged by Analyzer 0 % (0-5); Neutrophil # 3.38 X10^3/uL (2.7-7.7); Neutrophil % 80.3 % (47-70); POSITIVE COUNT YES; POSITIVE DIFFERENTIAL YES; Platelet Count 88 K/mm3 (150-450); RBC Distribution Width CV 17.9 % (11.6-14.6); RBC Distribution Width SD 58.3 fl (35.1-43.9); Red Blood Count 3.27 M/mm3 (4.6-6.2); White Blood Count 4.2 K/mm3 (4.4-11.0)
[2019-04-26 06:08] LABS: Differential Indicated SCAN CRITERIA MET
[2019-04-26 06:39] LABS: Anion Gap 6 (5-15); BUN 9 mg/dL (7-18); BUN/Creat Ratio 8.3 RATIO (10-20); Chloride 107 mmol/L (98-107); Creatinine, Serum 1.09 mg/dL (0.70-1.30); EST Glomerular Filtration Rate 74 mL/min (>60); Est Glom Filt Rate - Afr Amer 89 mL/min (>60); Estimated Creatinine Clearance 69.06 ml/min; Glucose 121 mg/dL (74-106); Potassium 3.9 mmol/L (3.5-5.1); Sodium Level 138 mmol/L (136-145)
[2019-04-26] MEDS: Ipratropium/Albuterol Sulfate 3 ML AMPUL.NEB INHALATION ×2 (06:49→13:19)
[2019-04-26 07:00] LABS: Differential Comment SCANNED
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
[2019-04-26] MEDS: Lisinopril 5 MG Tablet PO (08:11)
[2019-04-26] MEDS: Metoprolol Tartrate 50 MG Tablet PO (08:11)
[2019-04-26] MEDS: busPIRone 5 MG Tablet 20 MG PO (08:11)
[2019-04-26] MEDS: Multivitamins,Therapeutic Tablet 1 TABLET PO (08:11)
[2019-04-26] MEDS: Citalopram 20 MG Tablet 40 MG PO (08:12)
[2019-04-26 08:14] LABS: Amphetamine Urine VISTA NEGATIVE (<1000 ng/mL); Barbiturate Urine VISTA NEGATIVE (< 200 ng/mL); Benzodiazepine Urine VISTA NEGATIVE (< 200 ng/mL); Cocaine Urine VISTA NEGATIVE (< 300 ng/mL); Ecstacy Urine VISTA NEGATIVE (< 500 ng/mL); Methadone Urine VISTA NEGATIVE (< 300 ng/mL); PCP Urine VISTA NEGATIVE (< 25 ng/mL); THC Urine VISTA NEGATIVE (< 50 ng/mL); Vista UDS pH Range 6
[2019-04-26] MEDS: Acetaminophen 325 MG Tablet 650 MG PO (08:17)
[2019-04-26] MEDS: Lactated Ringers 1,000 ML 100 ML IV (08:25)
--- NOTE | 2019-04-26 09:02 | PN_ITS ---
Patient Problems: Active and Suspected Problems GI bleed (Acute) Anemia (Acute) Subjective: Chief complaint: Follow-up after admission for acute on chronic blood loss anemia, probable GI bleed and acute alcohol withdrawal. Patient seen and examined. No acute events overnight. This morning, he is jittery, anxious and probably is an acute alcohol withdrawal. Still complained of dizziness. Denied abdominal pain, nausea or vomiting. Denied chest pain or shortness of breath. He is afebrile, slightly tachycardic, blood pressure slightly better, pulse ox is maintained on room air. - Physical Exam Vitals/I&O's: Vital Signs Temp Pulse Resp BP Pulse Ox 98.1 F 113 H 18 158/122 H 95 04/26/19 08:05 04/26/19 08:11 04/26/19 08:05 04/26/19 08:05 04/26/19 08:05 Oxygen Delivery Method Room Air Weight: 185 lb Body Mass Index (BMI) 29.0 Finger Stick Blood Glucose 120 Intake and Output for Last 24 Hours 04/24/19 04/25/19 04/26/19 23:59 23:59 23:59 Intake Total 2066. / 1224.84 / 1224.84 Balance / 1224.84 / 1224.84 General: Alert, Oriented x3, Cooperative, - - Anxious, jittery. HEENT: Atraumatic, PERRLA, EOMI, Normocephalic Oral: Moist Mucosa, No Gingival or Mucosal Lesions/ Ulcerations Neck: Supple, No JVD, Negative Carotid Bruits, Trachea Midline, Thyroid Normal Size and Texture Lungs: Clear to auscultation, Normal air movement, No rhonchi, No wheeze, No rales, Diminished Cardiovascular: Regular rate, Regular Rhythm, Normal S1, Normal S2, No murmurs, PMI Normal, Tachycardic Abdomen: Bowel Sounds Present, Soft, Non Tender, Non-Distended, No Hepato- splenomegaly Extremities: No clubbing, No cyanosis, Edema Skin: No rashes, No breakdown Lymphatic: No Cervical, Supraclavicular, or Inguinal Adenopathy Neurological: Cranial nerves II-XII grossly intact, Motor Exam 5/5 strength throughout Psych/Mental Status: Normal Affect, Anxious Microbiology Past 72 Hours 04/25/19 10:30 Stool Stool Occult Blood (OLAYINKA) - Final Occult Blood Positive Laboratory Results 04/25/19 10:08: WBC 5.5, RBC 3.07 L, Hgb 8.8 L, Hct 27.3 L, MCV 88.9, MCH 28.7, MCHC 32.2, RDW Std Deviation 58.1 H, RDW Coeff of Donnie 17.9 H, Plt Count 100 L, MPV 9.2, Immature Gran % (Auto) 0.400, Neut % (Auto) 69.5, Lymph % (Auto) 19.0, Maverick % (Auto) 9.7, Eos % (Auto) 0.9, Baso % (Auto) 0.5, Absolute Neuts (auto) 3.8, Absolute Lymphs (auto) 1.04, Nucleated RBC % 0 04/25/19 10:08: Sodium 131 L, Potassium 4.2, Chloride 99, Carbon Dioxide 22.0, Anion Gap 10, BUN 12, Creatinine 1.17, Estim Creat Clear Calc 64.34, Est GFR (MDRD) Af Amer 82, Est GFR (MDRD) Non-Af 68, BUN/Creatinine Ratio 10.3, Glucose 87, Calcium 8.4 L, Total Bilirubin 0.40, Direct Bilirubin 0.30, AST 107 H, ALT 27, Alkaline Phosphatase 276 H, Troponin I < 0.015, Total Protein 6.7, Albumin 2.3 L, Globulin 4.4 H, Lipase 222 04/25/19 10:08: PT 14.4, INR 1.1 04/25/19 10:08: Magnesium 1.9 04/25/19 10:30: Urine Color Yellow, Urine Clarity Clear, Urine pH 6.0, Ur Specific [place] 1.005, Urine Protein Negative, Urine Glucose (UA) Normal, Urine Ketones Negative, Urine Occult Blood Negative, Urine Nitrite Negative, Urine Bilirubin Negative, Urine Urobilinogen Normal, Ur Leukocyte Esterase Negative, Urine RBC 0 SEEN, Urine WBC 0 SEEN, Ur Squamous Epith Cells 0 SEEN, Urine Bacteria 0 SEEN, Urine Mucus 0 SEEN 04/25/19 13:25: Hgb 9.3 L, Hct 29.0 L 04/25/19 13:25: Ethyl Alcohol 105.0 04/25/19 13:25: Blood Type O POSITIVE, Antibody Screen NEGATIVE, Crossmatch See Detail 04/25/19 21:26: Hgb 9.1 L, Hct 28.4 L 04/26/19 05:35: WBC 4.2 L, RBC 3.27 L, Hgb 9.1 L, Hct 29.1 L, MCV 89.0, MCH 27.8, MCHC 31.3 L, RDW Std Deviation 58.3 H, RDW Coeff of Donnie 17.9 H, Plt Count 88 L, MPV 9.8, Immature Gran % (Auto) 0.700, Neut % (Auto) 80.3 H, Lymph % (Auto) 7.8 L, Maverick % (Auto) 8.8, Eos % (Auto) 1.7, Baso % (Auto) 0.7, Absolute Neuts (auto) 3.4, Absolute Lymphs (auto) 0.33 L, Nucleated RBC % 0, Differential Comment SCANNED 04/26/19 05:35: Sodium 138, Potassium 3.9, Chloride 107, Carbon Dioxide 25.0, Anion Gap 6, BUN 9, Creatinine 1.09, Estim Creat Clear Calc 69.06, Est GFR (MDRD) Af Amer 89, Est GFR (MDRD) Non-Af 74, BUN/Creatinine Ratio 8.3 L, Glucose 121 H, Calcium 9.0 04/26/19 07:30: Urine Opiates Screen NEGATIVE, Urine Methadone Screen NEGATIVE, Ur Barbiturates Screen NEGATIVE, Ur Phencyclidine Scrn NEGATIVE, Ur Amphetamines Screen NEGATIVE, U Methamphetamin-MDMA NEGATIVE, U Benzodiazepines Scrn NEGATIVE, Urine Cocaine Screen NEGATIVE, U Cannabinoids Screen NEGATIVE, Ur Drug Screen Comment Current Medications Acetaminophen (Tylenol) 650 mg PO Q6H PRN PRN PRN Reason: Pain Score 1-3/Temp > 100.7 F Last Admin: 04/26/19 08:17 Dose: 650 mg Documented by: Albuterol Sulfate (Ventolin Aerosols) 2.5 mg INHALATION Q4H PRN PRN PRN Reason: Shortness of breath, wheezing Albuterol/Ipratropium (Duoneb) 3 ml INHALATION Q6H.RT [facility] Last Admin: 04/26/19 06:49 Dose: 3 ml Documented by: Buspirone HCl (Buspar) 20 mg PO BID [facility] Last Admin: 01/13/20 08:11 Dose: 20 mg Documented by: Citalopram Hydrobromide (Celexa) 40 mg PO DAILY [facility] Last Admin: 04/26/19 08:12 Dose: 40 mg Documented by: Gabapentin (Neurontin) 300 mg PO 0600,1400 [facility] Last Admin: 04/26/19 05:12 Dose: Not Given Documented by: Gabapentin (Neurontin) 600 mg PO QHS [facility] Last Admin: 04/25/19 21:46 Dose: 600 mg Documented by: Lactated Ringer's () 1,000 mls @ 100 mls/hr IV .Q10H [facility] Last Infusion: 04/26/19 08:31 Dose: 0 mls/hr Documented by: Pantoprazole Sodium 80 mg/ (Sodium Chloride) 100 mls @ 10 mls/hr CONT INF Q10H [facility] Last Infusion: 04/26/19 08:30 Dose: Infused Documented by: Thiamine HCl 100 mg/ Sodium (Chloride) 51 mls @ 200 mls/hr IV DAILY [facility] Folic Acid 1 mg/ Sodium (Chloride) 50.2 mls @ 200 mls/hr IV DAILY [facility] Last Admin: 04/26/19 08:17 Dose: 200 mls/hr Documented by: Lisinopril (Zestril) 5 mg PO DAILY [facility] Last Admin: 04/26/19 08:11 Dose: 5 mg Documented by: Lorazepam (Ativan) 2 mg PO Q2H PRN PRN; Protocol PRN Reason: CIWA score > 8 but <15 Last Admin: 04/25/19 23:18 Dose: 2 mg Documented by: Lorazepam (Ativan) 2 mg PO UD PRN; Protocol PRN Reason: CIWA score >/=15. Lorazepam (Ativan) 2 mg IV Q2H PRN PRN; Protocol PRN Reason: CIWA score > 8 but <15 Last Admin: 04/26/19 07:08 Dose: 2 mg Documented by: Lorazepam (Ativan) 2 mg IV UD PRN; Protocol PRN Reason: CIWA score >/=15. Metoprolol Tartrate (Lopressor (Beta Olga)) 50 mg PO BID [facility] Last Admin: 04/26/19 08:11 Dose: 50 mg Documented by: [facility]it[facility] ([facility]) [facility] Last Admin: 04/26/19 08:11 Dose: 1 tablet Documented by: Nicotine (Nicoderm Cq (Pbkc)) 21 mg TRANSDERM. DAILY [place] Last Admin: 04/26/19 08:11 Dose: 21 mg Documented by: Nicotine Polacrilex (Rugby Nicotine (Bkc)) 2 mg PO Q2H PRN PRN PRN Reason: Nicotine Craving Ondansetron HCl (Zofran) 4 mg IV Q8H PRN PRN PRN Reason: NAUSEA/VOMITING Sodium Chloride () 10 - 40 ml IV UD PRN PRN Reason: SALINE FLUSH Last Admin: 04/26/19 03:03 Dose: 10 ml Documented by: Medical Necessity - Tobacco Use Smoking Status: Current every day smoker Tobacco Use: Cigarettes Assessment/Plan All Active Problems GI bleed (Acute) Anemia (Acute) This is a 58 years old male patient presented to the emergency room because of dizziness, lightheadedness and profound weakness and fatigue, found to have acute on chronic blood loss symptomatic anemia probably due to GI bleed and he is being admitted for evaluation and treatment. #1 acute on chronic blood loss symptomatic anemia: Attributed to probable GI bleed. Stool was positive for occult blood. Today's hemoglobin is 9.1 g/dL. On January,, hemoglobin has been around 11 to 13 g/dL, most recently was 13.2 g/dL on Aug, 2018. Back in early 2016 and 2015, hemoglobin was around 8 g/dL. Plan for upper EGD today, repeat CBC tomorrow morning. #2 probable GI bleed: Likely due to alcohol abuse, Excedrin and being on Plavix. He is on IV Protonix drip. He is tachycardic but it is probably due to alcohol withdrawal. Plan for upper EGD today. #3 acute alcohol withdrawal: On admission, blood alcohol level was 105. Urine drug screen is negative. Today, patient is anxious, jittery, tachycardic. He is on thiamine, folic acid, multivitamin and Ativan. Plan to continue same treatment. #4 thrombocytopenia: This is probably due to chronic liver disease. Today's platelet count is 88,000. INR is 1.1. No evidence of active bleeding. #5 COPD: Clinically stable, pulse ox is maintained on room air. Continue DuoNeb every 6 hours, albuterol PRN. #6 hypertension: Blood pressure slightly elevated, continue lisinopril and metoprolol. Start IV adenosine PRN. #7 GERD/history of peptic ulcer disease: He is on IV Protonix drip, plan for upper endoscopy today.. #8 hepatitis C: With chronic elevated LFTs, stable. Recommend follow-up with infectious disease as outpatient. #9 carotid stenosis: Status post right carotid endarterectomy. Keep holding Plavix for now. #10 DVT prophylaxis: SCDs. This note was generated with [email or web address] dictation software. It may contain incorrect words, spelling, and punctuation that were not noted in checking the note before signing. Code Visit Inpatient E&M: 06698 Subs Hosp L2
--- NOTE | 2019-04-26 10:04 | CASEMGMT ---
Clinicals faxed to [place] transfer center at this time. Ramon VALENZUELA CM
--- NOTE | 2019-04-26 10:59 | NURSING ---
pt being taken to Endo for scope with Dr ramos
--- NOTE | 2019-04-26 12:00 | EGD_PTH ---
PATIENT: LUCIO YOUSIF LOC: [facility] U#:[id number] AGE/SX: 58/M ROOM: [facility] RE04/25/[address]: Dr. Luci Moore MD : 1960 BED: 1 DIS: 04/26/2019 SPEC #: [id number] RECD: 04/26/19 12:47 STATUS: ALEXANDRA REQ #: [id number] BRITTNEY: 04/26/19 12:[address]: Summer Abdullahi DEPT: SURGICAL PATHOLOGY RECD BY: Cuate Turk ENTERED: 04/26/19 13:06 SP TYPE: EGD BIOPSY OTHR DR: MD Dr. Summer Giang MD [facility] Tissues: Gastric mucous membrane Procedures: Surgery Specimen Level IV Comments: @ Ordering doctor for SUIV edited from to @ by VIKKI at 04/26/19 1420 @ Submitting doctor edited from to @ by JESSEOD at 04/26/19 1420 HEADER OPERATION: [place] PRE-OP DIAGNOSIS: Anemia, history duodenal ulcer TISSUE SUBMITTED: Antrum biopsy for histo and H. pylori MICROSCOPIC DIAGNOSIS Antrum biopsy: Mild gastritis. See microscopic description and comment. MILANA:candido 04/27/19 COMMENT The results of immunohistochemistry for Helicobacter pylori will be reported separately ([id number]). MICROSCOPIC DESCRIPTION Slides are reviewed. The specimen shows fragments of gastric mucosa with chronic inflammatory cell infiltrates in the lamina propria consisting of lymphocytes and plasma cells, consistent with mild chronic gastritis. GROSS DESCRIPTION Received in fixative is one container labeled with the patient's name and designated antrum biopsy. The specimen consists of one irregular fragment of light [place] soft tissue that measures 0.3 x 0.3 x 0.1 cm. The specimen is totally submitted in one cassette. / MILANA:candido 04/26/19 TC:5 CPT: 46328
--- NOTE | 2019-04-26 12:00 | IMM_PTH ---
PATIENT: LUCIO YOUSIF LOC: [facility] U#:[id number] AGE/SX: 58/M ROOM: [facility] RE04/25/[address]: Dr. Luci Moore MD : 1960 BED: 1 DIS: 04/26/2019 SPEC #: [id number] RECD: 04/26/19 13:10 STATUS: ALEXANDRA REElie #: [id number] BRITTNEY: 04/26/19 12:[address]: Summer Abdullahi DEPT: IMMUNOHISTOCHEMISTRY RECD BY: Katt Coy ENTERED: 04/26/19 13:10 SP TYPE: IMMUNO OTHR DR: Dr. Luci Moore MD [facility] Tissues: Stomach, NOS Procedures: H Pylori (initial) PHYSICIAN & INSTITUTION [place] [address] SPECIMEN INFORMATION: Tissue Source: Antrum biopsy Clinical Info: Anemia, history duodenal ulcer Specimen Number: [id number] CPT code: 77198 METHODOLOGY: Deparaffinized sections of prefer/formalin-fixed tissue or PAP/DQ stained slides are incubated with monoclonal/polyclonal antibodies/oligonucleotide probes. Localization is made via biotin free immunoperoxidase method. Appropriate controls are performed and reacted as expected. Results on target cell population are indicated in the following table: RESULTS: ANTIBODY / CLONE RESULT H Pylori (polyclonal) negative These tests were developed and their performance characteristics determined by [facility]. They may not have been cleared or approved by the U.S. Food and Drug Administration. The FDA has determined that such clearance or approval is not necessary. INTERPRETATION: Antrum biopsy: Negative for Helicobacter pylori organisms. SJ:candido 04/28/19
[2019-04-26] MEDS: Gabapentin 300 MG Capsule PO (13:10)
[2019-04-26 13:33] LABS: Hematocrit 28.1 % (40-54)
--- NOTE | 2019-04-26 14:19 | NURSING ---
Pt threatening to leave AMA. Educated on safety. pt is alert and oriented x3 but is unstable on his feet. Requiring x1 assist to walk to the bathroom. Dr. Cox notified and came back to talk to patient about safety and possibilities of falling. Asked pt to stay one more night to trend hgb to unsure no more bleeding. Pt refused stated that he has no much to do and is leaving tonight.
--- NOTE | 2019-04-26 14:39 | PCM.DC.SUM ---
Discharge Date and Diagnosis Date of Admission: 04/25/19 Date of Discharge: 04/26/19 - Primary Discharge Diagnosis Active and Suspected Problem #1 acute on chronic blood loss symptomatic anemia, no blood transfusion required. #2 Nonbleeding grade 2 esophageal varices. #3 gastritis. #4 acute alcohol withdrawal. #5 chronic thrombocytopenia. #6 left the hospital AGAINST MEDICAL ADVICE. - Secondary Discharge Diagnosis Chronic Problems Anxiety (Chronic) Pancreatitis (Chronic) Stroke (Chronic) Alcohol abuse (Chronic) Tobacco abuse (Chronic) Hepatitis C (Chronic) Depression (Chronic) COPD (chronic obstructive pulmonary disease) (Chronic) Hyperlipemia (Chronic) GERD (gastroesophageal reflux disease) (Chronic) HTN (hypertension) (Chronic) Colonic polyp (Chronic) Colon, diverticulosis (Chronic) Nicotine addiction (Chronic) RENETTA (obstructive sleep apnea) (Chronic) Carotid stenosis (Chronic) Hospital Course and Treatment Dr. Abdullahi, general surgery. Operations: None Procedures: EGD, EKG Summary of Care Provided: The patient is a 58 year old M patient presented to the emergency room because of dizziness, lightheadedness and fatigue as well as weakness and he was found to have acute on chronic blood loss anemia which is attributed to probable GI bleed. This patient had a history of alcohol abuse and he continues to drink and he has been using Excedrin, Plavix as well. His stool was positive for occult blood. Admission hemoglobin was 8.8 g/dL and his hemoglobin stayed above 9 g/dL afterwards. There was no indication for blood transfusion. Patient was treated with IV Protonix drip. General surgery consulted and he went for upper EGD that revealed findings consistent with antral gastritis and grade 2 nonbleeding esophageal varices. This patient had a history of alcohol abuse and on admission, his blood alcohol level was 105. He was started on thiamine, folic acid and Ativan as needed. On the second day post admission, patient was jittery, anxious and restless. He underwent upper EGD and later, nursing staff called me and mentioned that patient wants to leave the hospital AGAINST MEDICAL ADVICE. I went to see the patient in his room, patient was anxious and clearly he was withdrawing from alcohol. I explained to him that he is on the right medication for acute withdrawal symptoms including Ativan as needed, folic acid, thiamine and multivitamins. I informed the patient that I need to keep him overnight to make sure his blood counts are not dropping but he insisted to leave the hospital. I comforted the patient by saying that you wanted to go home and start drinking again and he admitted that yes he will be drinking again. I counseled him about the side effects of continuous drinking and complications but he insisted to leave the hospital now. I offered the patient to stay for alcohol detoxification but he refused. Patient left the hospital AGAINST MEDICAL ADVICE. - Physical Exam Vitals/I&O's: Vital Signs Temp Pulse Resp BP Pulse Ox 98.0 F 94 16 145/88 H 98 04/26/19 13:03 04/26/19 13:19 04/26/19 13:19 04/26/19 13:03 04/26/19 13:03 Oxygen Delivery Method Room Air Weight: 185 lb Body Mass Index (BMI) 29.0 Finger Stick Blood Glucose 120 Intake and Output for Last 24 Hours 04/24/19 04/25/19 04/26/19 23:59 23:59 23:59 Intake Total 2066. / 2831.54 / 2831.54 Balance / 2831.54 / 2831.54 General: Alert, Oriented x3, Cooperative, - - Restless, anxious. HEENT: Atraumatic, PERRLA, EOMI, Normocephalic Oral: Moist Mucosa, No Gingival or Mucosal Lesions/ Ulcerations Neck: Supple, No JVD, Negative Carotid Bruits, Trachea Midline, Thyroid Normal Size and Texture Lungs: Clear to auscultation, Normal air movement, No rhonchi, No wheeze, No rales, Diminished Cardiovascular: Regular rate, Regular Rhythm, Normal S1, Normal S2, PMI Normal, Tachycardic Abdomen: Bowel Sounds Present, Soft, Non Tender, Non-Distended, No Hepato-splenomegaly Extremities: No clubbing, No cyanosis, No edema Skin: No rashes, No breakdown Lymphatic: No Cervical, Supraclavicular, or Inguinal Adenopathy Neurological: Cranial nerves II-XII grossly intact, Neuro grossly intact Psych/Mental Status: Anxious, Restless Microbiology Past 72 Hours 04/25/19 10:30 Stool Stool Occult Blood (OLAYINKA) - Final Occult Blood Positive Laboratory Results 04/25/19 13:25: Blood Type O POSITIVE, Antibody Screen NEGATIVE, Crossmatch See Detail 04/25/19 21:26: Hgb 9.1 L, Hct 28.4 L 04/26/19 05:35: WBC 4.2 L, RBC 3.27 L, Hgb 9.1 L, Hct 29.1 L, MCV 89.0, MCH 27.8, MCHC 31.3 L, RDW Std Deviation 58.3 H, RDW Coeff of Donnie 17.9 H, Plt Count 88 L, MPV 9.8, Immature Gran % (Auto) 0.700, Neut % (Auto) 80.3 H, Lymph % (Auto) 7.8 L, Garvin % (Auto) 8.8, Eos % (Auto) 1.7, Baso % (Auto) 0.7, Absolute Neuts (auto) 3.4, Absolute Lymphs (auto) 0.33 L, Nucleated RBC % 0, Differential Comment SCANNED 04/26/19 05:35: Sodium 138, Potassium 3.9, Chloride 107, Carbon Dioxide 25.0, Anion Gap 6, BUN 9, Creatinine 1.09, Estim Creat Clear Calc 69.06, Est GFR (MDRD) Af Amer 89, Est GFR (MDRD) Non-Af 74, BUN/Creatinine Ratio 8.3 L, Glucose 121 H, Calcium 9.0 04/26/19 07:30: Urine Opiates Screen NEGATIVE, Urine Methadone Screen NEGATIVE, Ur Barbiturates Screen NEGATIVE, Ur Phencyclidine Scrn NEGATIVE, Ur Amphetamines Screen NEGATIVE, U Methamphetamin-MDMA NEGATIVE, U Benzodiazepines Scrn NEGATIVE, Urine Cocaine Screen NEGATIVE, U Cannabinoids Screen NEGATIVE, Ur Drug Screen Comment 04/26/19 13:20: Hgb 9.0 L, Hct 28.1 L Current Medications Acetaminophen (Tylenol) 650 mg PO Q6H PRN PRN PRN Reason: Pain Score 1-3/Temp > 100.7 F Last Admin: 04/26/19 08:17 Dose: 650 mg Documented by: Albuterol Sulfate (Ventolin Aerosols) 2.5 mg INHALATION Q4H PRN PRN PRN Reason: Shortness of breath, wheezing Albuterol/Ipratropium (Duoneb) 3 ml INHALATION Q6H.RT [place] Last Admin: 04/26/19 13:19 Dose: 3 ml Documented by: Buspirone HCl (Buspar) 20 mg PO BID [place] Last Admin: 04/26/19 08:11 Dose: 20 mg Documented by: Citalopram Hydrobromide (Celexa) 40 mg PO DAILY [facility] Last Admin: 04/26/19 08:12 Dose: 40 mg Documented by: Gabapentin (Neurontin) 300 mg PO 0600,1400 [facility] Last Admin: 04/26/19 13:10 Dose: 300 mg Documented by: Gabapentin (Neurontin) 600 mg PO QHS [facility] Last Admin: 04/25/19 21:46 Dose: 600 mg Documented by: Hydralazine HCl (Apresoline Iv) 10 mg IV Q6H PRN PRN PRN Reason: for SBP>160 Lactated Ringer's () 1,000 mls @ 100 mls/hr IV .Q10H [facility] Last Infusion: 04/26/19 14:25 Dose: Infused Documented by: Pantoprazole Sodium 80 mg/ (Sodium Chloride) 100 mls @ 10 mls/hr CONT INF Q10H [facility] Last Infusion: 04/26/19 14:25 Dose: Infused Documented by: Thiamine HCl 100 mg/ Sodium (Chloride) 51 mls @ 200 mls/hr IV DAILY [facility] Last Infusion: 04/26/19 09:31 Dose: Infused Documented by: Folic Acid 1 mg/ Sodium (Chloride) 50.2 mls @ 200 mls/hr IV DAILY [facility] Last Infusion: 04/26/19 09:02 Dose: Infused Documented by: Lisinopril (Zestril) 5 mg PO DAILY [facility] Last Admin: 04/26/19 08:11 Dose: 5 mg Documented by: Lorazepam (Ativan) 2 mg PO Q2H PRN PRN; Protocol PRN Reason: CIWA score > 8 but <15 Last Admin: 04/25/19 23:18 Dose: 2 mg Documented by: Lorazepam (Ativan) 2 mg PO UD PRN; Protocol PRN Reason: CIWA score >/=15. Lorazepam (Ativan) 2 mg IV Q2H PRN PRN; Protocol PRN Reason: CIWA score > 8 but <15 Last Admin: 04/26/19 07:08 Dose: 2 mg Documented by: Lorazepam (Ativan) 2 mg IV UD PRN; Protocol PRN Reason: CIWA score >/=15. Metoprolol Tartrate (Lopressor (Beta Olga)) 50 mg PO BID [facility] Last Admin: 04/26/19 08:11 Dose: 50 mg Documented by: Multivitamins (Multivitamin) 1 tablet PO DAILYCM [facility] Last Admin: 04/26/19 08:11 Dose: 1 tablet Documented by: Nicotine (Nicoderm Cq (Pbkc)) 21 mg TRANSDERM. DAILY [facility] Last Admin: 04/26/19 08:11 Dose: 21 mg Documented by: Nicotine Polacrilex (Rugby Nicotine (Bkc)) 2 mg PO Q2H PRN PRN PRN Reason: Nicotine Craving Ondansetron HCl (Zofran) 4 mg IV Q8H PRN PRN PRN Reason: NAUSEA/VOMITING Sodium Chloride () 10 - 40 ml IV UD PRN PRN Reason: SALINE FLUSH Last Admin: 04/26/19 03:03 Dose: 10 ml Documented by: Home Medications: Medications to take at Discharge Clopidogrel Bisulfate [Plavix] 75 mg PO DAILY 09/10/16 Folic Acid 1 mg PO DAILY@0800 09/10/16 Metoprolol Tartrate [Lopressor (beta olga)] 50 mg PO BID 09/10/16 Pantoprazole Sodium [Protonix] 20 mg PO BID 09/10/16 Rosuvastatin Calcium 40 mg PO QHS 09/23/16 Citalopram Hydrobromide [Celexa] 40 mg PO DAILY 06/15/17 Gabapentin [Neurontin] 600 mg PO QHS 08/17/18 busPIRone [Buspar] 20 mg PO BID 08/17/18 Gabapentin [Neurontin] 300 mg PO BID 08/30/18 Albuterol IH (ProAir) [Proair Hfa (SP)Vent Pts] 1 - 2 puff INHALATION Q4H PRN PRN 04/25/19 Budesonide/Formoterol Fumarate [Symbicort 160-4.5 Mcg Inhaler] 2 puff IH BID 04/25/19 Cholecalciferol (VIT D3) [Vitamin D] 2,000 unit PO DAILY 04/25/19 Lisinopril 5 mg PO DAILY 04/25/19 Magnesium Oxide [Mag-Ox 400] 420 mg PO DAILY 04/25/19 Tizanidine HCl 4 mg PO TID PRN PRN 04/25/19 [facility] Care Physician: [facility] [Primary Care Provider] - Disposition: Against Medical Advice Minutes spent on discharge:: 28 Patient Condition:: Stable Medical Necessity - Tobacco Use Smoking Status: Current every day smoker Tobacco Use: Cigarettes Meaningful Use Info Meaningful Use Diagnoses (Choose all that apply): None applicable Code Visit Inpatient E&M: 32501 Disch Hosp
--- NOTE | 2019-04-26 15:03 | CASEMGMT ---
RN CM Assessment Introduced role of RN CM to patient.?Patient just returned from having procedure- EGD, staff just at bedside getting patient dressed and states patient is leaving AMA, patient appears with slight swaying when sitting up from bed and while sitting up- attempting to lean back. Appears possibly drowsy but able to maintain eye opening and continuous conversation to assessment questions. Patient is alert, oriented and able?to participate in RN CM Assessment. ?Care providers, pharmacy, and demographics verified. Presentation: Dizziness, Lightheaded Admit Dx: AoC Symptomatic Anemia, possible GIB Re-Admit: No Barriers/Issues: Patient oriented and rational in discussion for assessment. States seeks care at [facility] and specialist in [facility]. Denies wanting to be transferred to [facility] and signed [place] declination which was faxed by other primary RNCM Berta Julio. Patient wishes to sign out against medical advice (AMA) and states rather just be in the comfort of his own home. Patient states that his apartment is with [employer] [place] housing and it is too big-3br and they just raised the rent. Inquiring about any assistance to help- this chief underwriter advised patient to discuss with [facility] contact personnel regarding finding alternative home that is lower in cost and smaller per his request or discussing with [facility] for assistance. Patient states that he will be safe for plan to return home and denies any additional needs or concerns. Patient states that he just wants to get up and walk and leave, this CM advised patient to stay in bed until staff assist him to ensure safety. This chief underwriter notified MA's near patient room to assist patient. PCP: At [facility]- Dr Anaya? Specialists: [facility] sees about six different specialist at [facility]. [facility] has seen Vascular surgery in the past and things related to skin such as Boils but could not think of exact specialist or provider names as he states does not go to specialist much d/t he uses [place] transportation to get to the appointments which take like 6hrs for them to see him for a few minutes. Preferred Pharmacy: [place]- states that he can call anytime and get immediate fill prescriptions through the [place] Insurance: [place], [place] only. Patient states that he has MERON as well, however is not reflected with registration this visit. Rx Benefit:?Yes with the [facility] ?LNOK: Friend Mariajose NIEVES/FABIANO: Both on file with [facility], [facility]- friend Mariajose Mccann Living Arrangements:? Lives alone on top of lower level apartment with 8 steps to enter ADL?s: Independent with ambulation and ADLs Transportation: Patient states that he does not drive. Uses [facility] transportation for medical appointments or a cab. States various friends transport him around and has a good support system and denies transportation issues. DME: Shower Chair that he does not use, HHC: None SNF: None Goal: Home and denies any needs. Denies any issues, concerns, needs or questions with DC planning at this time. Aware CM remains available for any emerging needs. DC PLAN: Home and no anticipated needs identified at this time. VIRGINIA Soler
--- NOTE | 2019-04-28 10:42 | OP.EGD_ITS ---
Patient Name: Dominic Najera Procedure Date: 04/26/2019 11:29 AM Date of : 1960 Age: 58 Procedure: Upper GI endoscopy Indications: Unexplained iron deficiency anemia Providers: Summer Abdullahi MD Referring MD: Luci Moore Medicines: See the Anesthesia note for documentation of the administered medications Patient Profile: Refer to note in patient chart for documentation of history and physical. Complications: No immediate complications. Procedure: Pre-Anesthesia Assessment: - see anesthesia note After obtaining informed consent, the endoscope was passed under direct vision. Throughout the procedure, the patient's blood pressure, pulse, and oxygen saturations were monitored continuously. The gastroscope was introduced through the mouth, and advanced to the second part of duodenum. The upper GI endoscopy was accomplished without difficulty. The patient tolerated the procedure well. Scope In: 11:53:20 AM Scope Out: 12:05:09 PM Total Procedure Duration Time 0 hours 11 minutes 49 seconds Findings: The first portion of the duodenum and second portion of the duodenum were normal. Diffuse mildly erythematous mucosa without bleeding was found in the gastric antrum. Biopsies were taken with a cold forceps for histology. To prevent bleeding after the biopsy, one hemostatic clip was successfully placed. There was no bleeding at the end of the procedure. A small hiatal hernia was present. Non-bleeding grade II varices were found in the lower third of the esophagus,. No stigmata of recent bleeding were evident. Impression: - Normal first portion of the duodenum and second portion of the duodenum. - Erythematous mucosa in the antrum. Biopsied. Clip was placed. - Small hiatal hernia. - Non-bleeding grade II esophageal varices. Recommendation: - Return patient to hospital [facility] for ongoing care. - Continue present medications. Procedure Code(s): --- Professional --- 18728, Esophagogastroduodenoscopy, flexible, transoral; with biopsy, single or multiple Diagnosis Code(s): --- Professional --- K31.89, Other diseases of stomach and duodenum K44.9, Diaphragmatic hernia without obstruction or gangrene I85.00, Esophageal varices without bleeding CPT copyright 2017 [employer]. All rights reserved. The codes documented in this report are preliminary and upon web content coordinator review may be revised to meet current compliance requirements. MD Summer Howe MD 04/26/2019 12:11:01 PM This report has been signed electronically. Number of Addenda: 0 Note Initiated On: 04/26/2019 11:29 AM
== END 2019-04-26 15:00 | disposition left against medical advice (07) | DRG 378 ==
LOC: ED 11:30 → PCU 12:08
PROVIDERS: Surgery; Admitting Provider Hospitalist; Emergency Provider Emergency Medicine; Referring Provider Hospitalist; Visit Provider Hospitalist
PROC: 0DJ08ZZ Inspection of Upper Intestinal Tract, Via Natural or Artificial Opening Endoscopic (ICD-10-PCS; CPT 43235; principal; 2019-04-26 11:55)
DX: K92.2 Gastrointestinal hemorrhage, unspecified (principal); D62 Acute posthemorrhagic anemia; F10.239 Alcohol dependence with withdrawal, unspecified; I85.00 Esophageal varices without bleeding; F41.9 Anxiety disorder, unspecified; J44.9 Chronic obstructive pulmonary disease, unspecified; G47.33 Obstructive sleep apnea (adult) (pediatric); Y90.5 Blood alcohol level of 100-119 mg/100 ml; F17.210 Nicotine dependence, cigarettes, uncomplicated; D69.59 Other secondary thrombocytopenia; K44.9 Diaphragmatic hernia without obstruction or gangrene; K29.70 Gastritis, unspecified, without bleeding; E78.5 Hyperlipidemia, unspecified; K21.9 Gastro-esophageal reflux disease without esophagitis; I10 Essential (primary) hypertension; B19.20 Unspecified viral hepatitis C without hepatic coma; K29.60 Other gastritis without bleeding; F32.9 Major depressive disorder, single episode, unspecified; R19.5 Other fecal abnormalities
CPT/HCPCS: 36415; 80048; 80076; 80307; 80320; 81001; 82274; 83690; 83735; 84484; 85014; 85018; 85025; 85610; 86850; 86900; 86901; 86920; 86922; 88305; 88342; 93005; 94640; 97162; 97166; 99285; J7120; A4216; G0480; J2405; J3490

== ENCOUNTER 2019-05-08 14:52 | Emergency (ER) | payer OTHER, SELFPAY ==
[2019-04-26 11:28] VITALS: BMI 29.0
[2019-05-08 14:52] VITALS: BP 157/82; PULSE 86; RESP 17; TEMP 37.2; O2SAT 96; BMI 32.1
--- NOTE | 2019-05-08 15:18 | EKG12_ITS ---
Test Reason : WEAKNESS Blood Pressure : / mmHG Vent. Rate : 083 BPM Atrial Rate : 083 BPM P-R Int : 142 ms QRS Dur : 088 ms QT Int : 392 ms P-R-T Axes : 051 084 032 degrees QTc Int : 460 ms Normal sinus rhythm Normal ECG Confirmed by WILFRED WASHINGTON, ANGELES ([id number]), index editor LENY SARMIENTO ([id number]) on 05/10/2019 12:24:03 PM Referred By: CRYSTAL/EVAN Confirmed By:ANGELES HARDIN MD
--- NOTE | 2019-05-08 15:19 | ED.DCSUM_ITS ---
- ER Visit Summary Date of Service: 05/08/19 Chief Complaint: Generalized weakness History of Present Illness: The patient is a 58 M history of anemia, anxiety, renal sufficiency, COPD, prior stroke, prior hypertension and alcoholism. Patient states the last 3) been generally weak. He was hospitalized a week or 2 ago but states he never was transfused. He was diagnosed with anemia. He also suffers from anxiety and is just been nervous. He denies any nausea, vomiting, diarrhea or melena. Physical Examination: Vital signs are stable afebrile. Middle-aged male no acute distress. HEENT exam poor dentition. Moist membranes. Neck nontender no lymphadenopathy. Lungs clear to auscultation bilaterally. Heart regular rhythm no murmur. Abdomen soft nontender. Extremities moves all 4. He does have 1+ pitting edema in his feet and lower extremities. Calves are nontender there is no cords. Neurologically is awake and alert with no focal motor deficits. Skin he does appear to be pale. Test Results: CBC shows a white count of 7. Hemoglobin 9.5 which is actually better than when he left the hospital his most recent admission at 9.0. His electrolytes show sodium 130. Normal gap of 7 BUN of 7 creatinine of 1. EKG sinus rhythm rate 83 with no acute abnormality. Emergency Department Course and Treatment: Patient generalized weakness. Clinically appears pale. Repeat exam at 1615 p.m. he is doing well. He is up ambulating about his room. He has had no rectal bleeding or black stool. His blood counts are higher than they were. He is comfortable being discharged to home. Treatment Plan: Follow-up with his primary care physician in the [facility]. Disposition: Discharge Impression: Acute generalized weakness History of alcohol abuse Chronic anemia History of alcoholism This note was generated with [employer] dictation software. It may contain incorrect words, spelling, and punctuation that were not noted in review of the chart prior to signing ED Disposition - Plan for ED Patient: [facility]errals: [facility] [Primary Care Provider] -
[2019-05-08 15:26] LABS: Absolute Lymphocyte Count 1.43 X10^3/uL (0.83-4.51); Basophil# 0.06 X10^3/uL; Basophil% 0.8 % (0-1); Eosinophil# 0.09 X10^3/uL; Eosinophils% 1.2 % (0-5); Hematocrit 30.1 % (40-54); Hemoglobin 9.5 g/dL (13.0-16.5); Lymphocyte # 1.43 X10^3/ul (4.0); Lymphocyte % 19.4 % (19-41); Mean Corp Hgb Conc 31.6 g/dL (32-36); Mean Corpuscular Hgb 28.2 pg (27.0-32.0); Mean Corpuscular Volume 89.3 fL (80-94); Monocyte# 0.79 X10^3/uL; Monocyte% 10.7 % (0-10); NRBC Flagged by Analyzer 0 % (0-5); Neutrophil # 4.99 X10^3/uL (2.7-7.7); Neutrophil % 67.6 % (47-70); Platelet Count 189 K/mm3 (150-450); RBC Distribution Width CV 17.6 % (11.6-14.6); RBC Distribution Width SD 57.5 fl (35.1-43.9); Red Blood Count 3.37 M/mm3 (4.6-6.2); White Blood Count 7.4 K/mm3 (4.4-11.0)
[2019-05-08 15:36] LABS: Anion Gap 7 (5-15); BUN 7 mg/dL (7-18); BUN/Creat Ratio 6.9 RATIO (10-20); Calcium,Total 8.7 mg/dL (8.5-10.1); Chloride 98 mmol/L (98-107); Creatinine, Serum 1.01 mg/dL (0.70-1.30); EST Glomerular Filtration Rate 81 mL/min (>60); Est Glom Filt Rate - Afr Amer 97 mL/min (>60); Estimated Creatinine Clearance 74.54 ml/min; Glucose 97 mg/dL (74-106); Potassium 4.2 mmol/L (3.5-5.1); Sodium Level 130 mmol/L (136-145)
[2019-05-08] MEDS: LORazepam 2 MG/ML Syringe 1 MG IV (15:39)
[2019-05-08 16:15] VITALS: BP 145/80; PULSE 89; RESP 16; O2SAT 95
--- NOTE | 2019-05-08 16:20 | ED.DEP ---
ED Disposition - Plan for ED Patient: Disposition: Home or Assisted Living Instructions: WEAKNESS, Unk Cause [facility] [Primary [facility] Provider[facility] - 3-5 Days Additional Instructions: Plenty of fluids and rest. Stop smoking. Decrease your alcohol use and strongly consider detox program. [facility].
== END 2019-05-08 16:45 | disposition home or self-care (01) ==
PROVIDERS: Emergency Provider Emergency Medicine
DX: R53.1 Weakness (principal); D64.9 Anemia, unspecified; F10.20 Alcohol dependence, uncomplicated; F41.9 Anxiety disorder, unspecified; I10 Essential (primary) hypertension; J44.9 Chronic obstructive pulmonary disease, unspecified; Z86.73 Personal history of transient ischemic attack (TIA), and cerebral infarction without residual deficits; Z72.0 Tobacco use
CPT/HCPCS: 80048; 85025; 86850; 86900; 86901; 93005; 96374; 99285; A4216

== ENCOUNTER 2019-05-22 14:23 | Inpatient (IN) | payer MEDICARE, OTHER, SELFPAY ==
[2019-05-22] VITALS (12 sets, daily range): BP systolic 153–184; BP diastolic 62–104; PULSE 85–96; RESP 18–24; TEMP 36.5–36.9; O2SAT 92–98; BMI 29.1; BMI 30.2
--- NOTE | 2019-05-22 15:05 | EKG12_ITS ---
Test Reason : SOB Blood Pressure : / mmHG Vent. Rate : 091 BPM Atrial Rate : 091 BPM P-R Int : 176 ms QRS Dur : 092 ms QT Int : 368 ms P-R-T Axes : 057 099 025 degrees QTc Int : 452 ms Sinus rhythm with occasional Premature ventricular complexes Rightward axis Borderline ECG Confirmed by AMANUEL WASHINGTON, MARTHA ([id number]), photograph editor RAJ ANN ([id number]) on 05/27/2019 2:52:42 PM Referred By: HARI Confirmed By:SHABBIR VITAL MD
--- NOTE | 2019-05-22 15:05 | RAD_ITS ---
STUDY: X-RAY CHEST REASON FOR EXAM: Male, 58 years old. SOB STARTING LAST NIGHT, COUGH TODAY. TECHNIQUE: 2 views of the chest were obtained COMPARISON: None. FINDINGS: No lung consolidation, pleural effusion or pneumothorax. Mild pulmonary congestive changes. Platelike atelectasis in the right lower lobe. IMPRESSION: Mild cardiomegaly and platelike atelectasis in right lower lobe. No consolidative process Electronically Signed: Jovanny Rock, at 16:56 EST Tel , Service support , RAD/Chest PA and Lateral
--- NOTE | 2019-05-22 15:18 | ED.VIS.GEN ---
History of Present Illness Chief Complaint: Shortness of Breath Informant: Patient Onset: Today Context: Gradual Onset Timing: Continuous Narrative: Patient is a 58-year-old male with history of anemia, anxiety, chronic kidney disease, COPD, history of stroke with residual right-sided paresthesias, hypertension, alcoholism and pancreatitis presenting with chest pain and shortness of breath. Triage note says the symptoms are last night but patient states that it started this morning to me. He states started around 7 AM. They started around the same time. He has had associated cough that is intermittently productive. The pain is in his bilateral upper chest. Does not radiate. He denies any fever but is having sweats. Denies any abdominal pain or urinary symptoms. He notes he has a headache from all the coughing. Patient denies any myalgias. He denies any other complaints at this time. Past Medical History - Allergies and Home Meds Allergies/Adverse Reactions: Allergies No Known Allergies Allergy (Verified 05/08/19 14:54) [facility] Care Phys[facility] [place] [[facility] - Past Medical History: - - Chronic anemia, anxiety, COPD, stroke, alcohol abuse, pancreatitis, hypertension Surgical History: noncontributory, - - surgery on left foot due to accident, carotid endarterectemy on the right side. Smoking Status: Current every day smoker - Family History Maternal Family History: Reports: No pertinent history Paternal Family History: Reports: - - alcoholism Review of Systems General: Reports: Malaise, Sweats. Denies: Chills, Fever Eyes: Denies: Visual changes - bilaterally, Diplopia ENT: Denies: Rhinorrhea, Sore throat Cardiovascular: Reports: Chest pain. Denies: Palpitations Respiratory: Reports: Dyspnea, Cough, Sputum. Denies: Dyspnea on exertion Gastrointestinal: Denies: Abdominal pain, Nausea, Vomiting, Diarrhea, Melena, Hematochezia Genitourinary: Denies: Dysuria, Hematuria, Frequency Musculoskeletal: Denies: Back pain, Extremity Pain Skin: Denies: Rash, Wounds Neurological: Reports: Headache. Denies: Weakness, Numbness Physical Exam Vital Signs/Narrative: Vital Signs Temp Pulse Resp BP Pulse Ox 05/22/19 14:26 98.4 F 91 20 H 184/87 H 98 Inital Vital Signs reviewed: Yes General: Well nourished, Well developed, No Acute Distress Head: Normocephalic, Atraumatic Eyes: Perrl, EOMI ENT: Moist mucous membranes, No rhinorrhea Neck: Supple, Nontender, No JVD Cardiovascular: Regular rate, Regular rhythm, No murmurs Respiratory: No distress, Chest nontender, Rhonchi - Bilateral. Negative for: Retractions Abdomen: Soft, Nontender, Nondistended, Normal bowel sounds Back: Nontender, Normal Inspection Extremities: Nontender, No edema Skin: Normal color, No rash, Diaphoresis Neurological: Alert, Oriented x3, Cranial nerves II-XII grossly intact, Normal Strength, Normal Sensation Psychological: Normal affect, Normal Mood, - - Anxious Diagnostic/Tx/Re-eval Chest X-Ray - ED: 2 View, Read by ED Physician, Read by Radiologist, No Acute Disease Clinical Impression(s) from Imaging Studies Chest X-Ray 05/22/19 15:05 Laboratory Data 05/22/19 05/22/19 05/22/19 14:35 14:35 14:35 WBC 7.7 RBC 3.03 L Hgb 8.6 L Hct 27.0 L MCV 89.1 MCH 28.4 MCHC 31.9 L RDW Std Deviation 50.4 H RDW Coeff of Donnie 15.6 H Plt Count 199 MPV 9.5 Immature Gran % (Auto) 0.500 Neut % (Auto) 77.2 H Lymph % (Auto) 13.8 L [place] % (Auto) 7.7 Eos % (Auto) 0.5 Baso % (Auto) 0.3 Absolute Neuts (auto) 5.9 Absolute Lymphs (auto) 1.06 Nucleated RBC % 0 Sodium 119 L* Potassium 5.0 Chloride 90 L Carbon Dioxide 22.0 Anion Gap 7 BUN 9 Creatinine 0.97 Estim Creat Clear Calc 77.61 Est GFR (MDRD) Af Amer 102 Est GFR (MDRD) Non-Af 84 BUN/Creatinine Ratio 9.2 L Glucose 92 Lactic Acid 1.8 Calcium 9.0 Troponin I 0.158 H - Rhythm Strip Rhythm Strip: Sinus Rhythm Rate: 91 Ectopy: None - EKG Initial EKG Interpretation: Sinus Rhythm, - - Sinus rhythm at a rate of 91 Normal axis Normal intervals Nonspecific T wave inversion in lead III - Medical Decision Making Patient is evaluated for chest pain shortness of breath. Symptoms seem to be mostly respiratory. His flu swab is negative. He does have bilateral rhonchi. Patient is given DuoNeb and albuterol and seems have improvement of his symptoms. At rest patient's O2 sat is dropping to 92% with good waveform. Lab work is significant for hyponatremia of 119 as well as an elevated troponin of 0.158. Chart review shows patient had an elevated troponin up to 0.2 however normally his troponin is negative. He his last sodium level was 130 about 2 weeks ago. Patient does drink a 12 pack of beer daily. His hyponatremia might be from his alcohol intake. Patient is given 500 cc of fluid as well as aspirin the emergency room. I did add on Solu-Medrol because I believe his respiratory symptoms are more of a COPD exacerbation. Patient will be admitted to PCU for further treatment. He is agreeable this plan. He is stable at time of disposition. ED Disposition - Plan for ED Patient: Disposition: Acute Care [facility] Diagnosis: Hyponatremia, Elevated troponin, Chest pain, Shortness of breath, COPD exacerbation [facility] [Primary [facility] Provider] -
[2019-05-22] MEDS: Ipratropium/Albuterol Sulfate 3 ML AMPUL.NEB INHALATION ×2 (15:22→19:37)
[2019-05-22] MEDS: Albuterol 2.5 MG/3 ML VIAL.NEB. INHALATION (15:22)
[2019-05-22 15:37] LABS: Absolute Lymphocyte Count 1.06 X10^3/uL (0.83-4.51); Absolute Neutrophil Count 5.9 X10^3/uL (2.0-7.7); Basophil# 0.02 X10^3/uL; Basophil% 0.3 % (0-1); Eosinophil# 0.04 X10^3/uL; Eosinophils% 0.5 % (0-5); Hemoglobin 8.6 g/dL (13.0-16.5); Lymphocyte # 1.06 X10^3/ul (4.0); Lymphocyte % 13.8 % (19-41); Mean Corp Hgb Conc 31.9 g/dL (32-36); Mean Corpuscular Hgb 28.4 pg (27.0-32.0); Mean Corpuscular Volume 89.1 fL (80-94); Mean Platelet Vol. 9.5 fl (6.2-12.0); Monocyte# 0.59 X10^3/uL; Monocyte% 7.7 % (0-10); NRBC Flagged by Analyzer 0 % (0-5); Neutrophil # 5.91 X10^3/uL (2.7-7.7); Neutrophil % 77.2 % (47-70); Platelet Count 199 K/mm3 (150-450); RBC Distribution Width CV 15.6 % (11.6-14.6); RBC Distribution Width SD 50.4 fl (35.1-43.9); Red Blood Count 3.03 M/mm3 (4.6-6.2); White Blood Count 7.7 K/mm3 (4.4-11.0)
[2019-05-22 15:52] LABS: Lactic Acid 1.8 mmol/L (0.4-1.9)
[2019-05-22 16:01] LABS: Anion Gap 7 (5-15); BUN 9 mg/dL (7-18); BUN/Creat Ratio 9.2 RATIO (10-20); Chloride 90 mmol/L (98-107); Creatinine, Serum 0.97 mg/dL (0.70-1.30); EST Glomerular Filtration Rate 84 mL/min (>60); Est Glom Filt Rate - Afr Amer 102 mL/min (>60); Estimated Creatinine Clearance 77.61 ml/min; Glucose 92 mg/dL (74-106); Sodium Level 119 mmol/L (136-145)
[2019-05-22] MEDS: Aspirin 325 MG Tablet PO (16:33)
--- NOTE | 2019-05-22 17:15 | NURSING ---
109 TERESSA HYPONATREMIA, CP, COPD EXAC
[2019-05-22] MEDS: MethylPREDNISolone 125 MG/2 ML Vial 60 MG IV (17:18)
[2019-05-22 17:22] LABS: AST(SGOT) 41 U/L (15-37); Alanine Aminotransfer ALT/SGPT 19 U/L (16-61); Albumin, Serum 2.9 g/dL (3.2-5.0); Alkaline Phosphatase 211 U/L (45-117); Bilirubin, Direct 0.37 mg/dL (0.00-0.30); Globulin 4.7 g/dL (2.2-4.2); Protein, Total 7.6 g/dL (6.4-8.2)
--- NOTE | 2019-05-22 17:29 | HP.PCM_ITS ---
<Jack Hutson - Last Filed: 05/22/19 17:29> Problem List (1) COPD exacerbation Status: Acute (2) Hyponatremia Status: Acute (3) Elevated troponin Status: Acute (4) Anemia Status: Chronic (5) Alcohol abuse Status: Chronic (6) Anxiety Status: Chronic (7) Depression Status: Chronic (8) GERD (gastroesophageal reflux disease) Status: Chronic (9) HTN (hypertension) Status: Chronic (10) Hepatitis C Status: Chronic (11) Hyperlipemia Status: Chronic (12) Nicotine addiction Status: Chronic (13) RENETTA (obstructive sleep apnea) Status: Chronic (14) Stroke Status: Chronic History of Present Illness Date of Admission: 05/22/19 Chief Complaint: SOB The patient is a 58 year old M wtih pmhx of COPD, alcoholism, nicotine abuse, hx DTs, pancreatitis, esophageal varices, thrombocytopenia, RENETTA, carotid stenosis, GERD, HTN, prior stroke who presented to the ER with c/o SOB. The patient states he was doing well until this AM. He woke up SOB. He has increased wheezing. He has a cough productive of greenish sputum. He has no hemoptysis. No nausea/vomiting/diarrhea.. No fever/chills. He was in the hospital in april for anemia, had an EGD, was found to have nonbleeding varices and left AMA. He denies sick contacts. He currently denies withdrawal symptoms. Last drink was this AM - beer. He drinks about 12 beers per day. He does not use drugs. He smokes about 1/2 ppd. He has no intention to stop drinking. [] Past Medical History Past Medical History (Chronic Problems): Chronic Problems Anxiety (Chronic) Anemia (Chronic) Pancreatitis (Chronic) Stroke (Chronic) Alcohol abuse (Chronic) Tobacco abuse (Chronic) Hepatitis C (Chronic) Depression (Chronic) COPD (chronic obstructive pulmonary disease) (Chronic) Hyperlipemia (Chronic) GERD (gastroesophageal reflux disease) (Chronic) HTN (hypertension) (Chronic) Colonic polyp (Chronic) Colon, diverticulosis (Chronic) Nicotine addiction (Chronic) RENETTA (obstructive sleep apnea) (Chronic) Carotid stenosis (Chronic) Allergies No Known Allergies Allergy (Verified 05/08/19 14:54) Home Medications: Ambulatory Orders Medication Instructions Recorded Clopidogrel Bisulfate [Plavix] 75 mg PO DAILY 09/10/16 Folic Acid 1 mg PO DAILY@0800 09/10/16 Metoprolol Tartrate [Lopressor 50 mg PO BID 09/10/16 (beta ran)] Pantoprazole Sodium [Protonix] 20 mg PO BID 09/10/16 Rosuvastatin Calcium 40 mg PO QHS 09/23/16 Citalopram Hydrobromide [Celexa] 40 mg PO DAILY 06/15/17 Gabapentin [Neurontin] 600 mg PO QHS 08/17/18 busPIRone [Buspar] 20 mg PO BID 08/17/18 Gabapentin [Neurontin] 300 mg PO DAILY 08/30/18 Albuterol IH (ProAir) [Proair Hfa 1 - 2 puff INHALATION Q4H PRN PRN 04/25/19 (SP)Vent Pts] Budesonide/Formoterol Fumarate 2 puff IH BID 04/25/19 [Symbicort 160-4.5 Mcg Inhaler] Cholecalciferol (VIT D3) [Vitamin 2,000 unit PO DAILY 04/25/19 D] Lisinopril 5 mg PO DAILY 04/25/19 Magnesium Oxide [Mag-Ox 400] 400 mg PO DAILY 04/25/19 Tizanidine HCl 4 mg PO TID PRN PRN 04/25/19 Surgical History: - - surgery on left foot due to accident, carotid endarterectemy on the right side. Psychiatric History: Depression Lives: Alone Smoking Status: Current every day smoker - *Family History Maternal History Items: No pertinent history - denies cancer, cad, DM, stroke Paternal History Items: - - alcoholism, of suicide Review of Systems Constitutional: Denies: Chills, Fever, Weight Change HEENT: Denies: Head Aches, Sinus Congestion, Sinus Drainage Cardiovascular: Denies: Chest Pain, Palpitations Respiratory: Denies: Cough, Shortness of breath at rest, Sputum production Gastrointestinal: Denies: Abdominal Pain, Nausea, Vomiting Genitourinary: Denies: Dysuria Musculoskeletal: Denies: Joint Pain, Joint Tenderness Skin: Denies: Rash, Wounds Neurological: Denies: Numbness, Tingling, Focal weakness Psychiatric: Denies: Anxiety, Depression, Homicidal Ideations, Suicidal Ideations Hematologic/ Lymphatic: Denies: Easy Bruising, Easy Bleeding VTE Information - Inpt Only VTE Present on Admission: No VTE Mechan Device Prophylaxis: SCD's VTE Pharm Prophylaxis ordered?: No - Physical Exam Vitals/I&O's: Vital Signs Temp Pulse Resp BP Pulse Ox 98.4 F 95 19 H 180/62 H 93 05/22/19 14:26 05/22/19 17:23 05/22/19 17:23 05/22/19 17:23 05/22/19 17:23 Oxygen Delivery Method Room Air Weight: 186 lb Body Mass Index (BMI) 29.1 Finger Stick Blood Glucose 120 General: Alert, Oriented x3, Cooperative HEENT: Atraumatic, PERRLA, EOMI, Normocephalic Neck: Supple, No JVD, Negative Carotid Bruits Lungs: Diminished, Wheezes Cardiovascular: Regular rate, No murmurs Abdomen: Bowel Sounds Present, Soft, Non Tender Extremities: No edema, Capillary Refill Less than 3 Seconds Skin: No rashes, No breakdown Musculoskeletal: No Tenderness to Palpation of Joints or Extremities Neurological: Cranial nerves II-XII grossly intact Psych/Mental Status: Normal Affect, Appropriate, Alert and oriented to time, place, person, mood and affect Microbiology Past 72 Hours 05/22/19 15:23 Mucosa - Nose Influenza Types A,B Direct FA (OLAYINKA) - Final Laboratory Results 05/22/19 14:35: WBC 7.7, RBC 3.03 L, Hgb 8.6 L, Hct 27.0 L, MCV 89.1, MCH 28.4, MCHC 31.9 L, RDW Std Deviation 50.4 H, RDW Coeff of Donnie 15.6 H, Plt Count 199, MPV 9.5, Immature Gran % (Auto) 0.500, Neut % (Auto) 77.2 H, Lymph % (Auto) 13.8 L, [place] % (Auto) 7.7, Eos % (Auto) 0.5, Baso % (Auto) 0.3, Absolute Neuts (auto) 5.9, Absolute Lymphs (auto) 1.06, Nucleated RBC % 0 05/22/19 14:35: Sodium 119 L*, Potassium 5.0, Chloride 90 L, Carbon Dioxide 22.0, Anion Gap 7, BUN 9, Creatinine 0.97, Estim Creat Clear Calc 77.61, Est GFR (MDRD) Af Amer 102, Est GFR (MDRD) Non-Af 84, BUN/Creatinine Ratio 9.2 L, Glucose 92, Calcium 9.0, Troponin I 0.158 H 05/22/19 14:35: Lactic Acid 1.8 05/22/19 14:35: Total Bilirubin 0.60, Direct Bilirubin 0.37 H, AST 41 H, ALT 19, Alkaline Phosphatase 211 H, Total Protein 7.6, Albumin 2.9 L, Globulin 4.7 H Assessment/Plan All Active Problems Hyponatremia (Acute) Elevated troponin (Acute) Chest pain (Acute) Shortness of breath (Acute) COPD exacerbation (Acute) GI bleed (Acute) 1. COPD exacerbation - no fever/leukocytosis. CXR with platelike atelectasis. Very wheezy. Improved after breathing tx in ER. Solumedrol, duonebs, incentive spirometer. Flu negative. No hypoxia. LA neg. 2. Hyponatremia - 2/2 beer potomania - IV NaCl. chronic however worse than us ual. Trend. 3. Alcoholism - no current withdrawal symptoms. He does not want to stop drinking and would rather have beer while here. Will also give thiamine, multivitamin, folate. CIWA protocol. Hx DT. Denies withdrawal seizures. Has had hallucinations. Avoid aspirin with hx alcoholism, prior thrombocytopenia, and hx GI bleed. LFTs mildly elevated. 4. Indeterminate trop - unclear etiology. Some CP. EKG neg. Will cycle enzymes and repeat AM EKG. No hx CAD. May be demand mediated with anemia and COPD exacerbation. Obtain Echo. Hold on asa/plavix as he has significant anemia, hx GI bleed, esophageal varices, gastritis, hx thrombocytopenia. He is already on metoprolol, lisinopril, and metoprolol. 5. Chronic Anemia - recently here with hemoccult + stools. Had EGD with Dr. Abdullahi with nonbleeding grade 2 varices. Platelets improved. check INR. Trend. Check iron/tibc. Hold plavix. Also has diaphragmatic hernia and gastritis. 6. Hx pancreatitis - currently no abd pain/nausea / vomiting 7. Hx esophageal varices - continue PPI 8. Hx stroke - on statin, hold plavix. 9. Anxiety - buspar 10. Htn - lisinopril, lopressor. DVT ppx: SCDs This patient was seen by Jack Hutson PA-C under the supervision of Dr. Gant. <Negro Gant Neil - Last Filed: 05/22/19 18:21> History of Present Illness The patient is a 58 year old M [] Past Medical History Allergies No Known Allergies Allergy (Verified 05/08/19 14:54) - Physical Exam Vitals/I&O's: Vital Signs Temp Pulse Resp BP Pulse Ox 97.7 F L 95 18 181/100 H 97 05/22/19 17:58 05/22/19 17:58 05/22/19 17:58 05/22/19 17:58 05/22/19 17:58 Oxygen Delivery Method Room Air Weight: 193 lb 1.999 oz Body Mass Index (BMI) 30.2 Finger Stick Blood Glucose 120 Microbiology Past 72 Hours 05/22/19 15:23 Mucosa - Nose Influenza Types A,B Direct FA (OLAYINKA) - Final Laboratory Results 05/22/19 14:33: PT 14.0, INR 1.1 05/22/19 14:35: WBC 7.7, RBC 3.03 L, Hgb 8.6 L, Hct 27.0 L, MCV 89.1, MCH 28.4, MCHC 31.9 L, RDW Std Deviation 50.4 H, RDW Coeff of Donnie 15.6 H, Plt Count 199, MPV 9.5, Immature Gran % (Auto) 0.500, Neut % (Auto) 77.2 H, Lymph % (Auto) 13.8 L, [place] % (Auto) 7.7, Eos % (Auto) 0.5, Baso % (Auto) 0.3, Absolute Neuts (auto) 5.9, Absolute Lymphs (auto) 1.06, Nucleated RBC % 0 05/22/19 14:35: Sodium 119 L*, Potassium 5.0, Chloride 90 L, Carbon Dioxide 22.0, Anion Gap 7, BUN 9, Creatinine 0.97, Estim Creat Clear Calc 77.61, Est GFR (MDRD) Af Amer 102, Est GFR (MDRD) Non-Af 84, BUN/Creatinine Ratio 9.2 L, Glucose 92, Calcium 9.0, Troponin I 0.158 H 05/22/19 14:35: Lactic Acid 1.8 05/22/19 14:35: Total Bilirubin 0.60, Direct Bilirubin 0.37 H, AST 41 H, ALT 19, Alkaline Phosphatase 211 H, Total Protein 7.6, Albumin 2.9 L, Globulin 4.7 H Current Medications Albuterol/Ipratropium (Duoneb) 3 ml INHALATION Q4HWA.RT MARIETTA Enoxaparin Sodium (Lovenox) 40 mg SC DAILY MAR[place] Sodium Chloride () 500 mls @ 999 mls/hr IV .Q31M ONE Last Admin: 05/22/19 16:00 Dose: 999 mls/hr Documented by: Sodium Chloride () 1,000 mls @ 100 mls/hr IV .Q10H [place] Melatonin (Melatonin) 3 mg PO QHS PRN PRN PRN Reason: INSOMNIA Methylprednisolone (Solu-Medrol) 40 mg IV Q8 [place] Nitroglycerin (Nitrostat) 0.4 mg SUBLINGUAL Q5M PRN PRN Reason: CARDIAC/CHEST PAIN Ondansetron HCl (Zofran) 4 mg IV Q8H PRN PRN PRN Reason: NAUSEA/VOMITING Sodium Chloride () 10 - 40 ml IV UD PRN PRN Reason: SALINE FLUSH Code Visit Addendum: Dr. Gant I personally examined the patient and reviewed the chart. I agree with the above. 58-year-old male who is an alcoholic and has a history of COPD presents with what appears to be a COPD exacerbation and chest pain. He says his symptoms started last night. He is not hypoxic however he has significant wheezing and rhonchi. He says that he is also been having nasal congestion and he swab negative for the flu. He does not have an elevated white count, however he is anemic and hyponatremic likely secondary to his chronic alcoholism. Also he has significant liver disease which is improved compared to previous levels. He has no interest in quitting therefore he will be provided beer prevent withdrawals, he will continue with DuoNeb as well as his home inhalers and Solu- Medrol. Will serialized troponins and obtain an echo. If he continues to rise may need to consult cardiology. Inpatient E&M: 53804 Init Hosp L3
[2019-05-22 17:55] LABS: International Normalized Ratio 1.1
[2019-05-22] MEDS: 0.9% Normal Saline 1,000 ML 100 ML IV (18:30)
[2019-05-22] MEDS: Ondansetron 4 MG/2 ML Vial IV (18:30)
[2019-05-22] MEDS: Acetaminophen 325 MG Tablet 650 MG PO (21:09)
[2019-05-22] MEDS: busPIRone 5 MG Tablet PO (21:10)
[2019-05-22] MEDS: Metoprolol Tartrate 50 MG Tablet PO (21:10)
[2019-05-22] MEDS: busPIRone 15 MG TABLET PO (21:10)
[2019-05-22] MEDS: Pantoprazole Sodium 20 MG Tablet PO (21:11)
[2019-05-22] MEDS: Atorvastatin Calcium 80 MG Tablet PO (21:11)
[2019-05-22] MEDS: Gabapentin 600 MG Tablet PO (21:11)
[2019-05-22] MEDS: MELATONIN 3 MG TABLET PO (23:50)
[2019-05-23] VITALS (25 sets, daily range): BP systolic 158–202; BP diastolic 92–112; PULSE 93–109; RESP 15–20; TEMP 36.6–36.9; O2SAT 94–98
[2019-05-23] MEDS: Acetaminophen 325 MG Tablet 650 MG PO ×2 (02:57→11:28)
[2019-05-23] MEDS: 0.9% Normal Saline 1,000 ML 100 ML IV (02:58)
[2019-05-23] MEDS: Ipratropium/Albuterol Sulfate 3 ML AMPUL.NEB INHALATION ×5 (03:12→19:05)
[2019-05-23] MEDS: hydrALAZINE 20 MG/ML Vial 5 MG IV ×3 (04:23→15:53)
--- NOTE | 2019-05-23 05:55 | ECHOD_ITS ---
Reason For Study: Elevated Troponin Procedure This was a 2D Doppler, Color Flow transthoracic echocardiogram. Exam performed in department. Left Ventricle Normal LV size. Left ventricular systolic function is normal. The estimated ejection fraction is 65 %. Stage 3 diastolic dysfunction. No regional wall motion abnormalities noted. Right Ventricle Normal RV size. Normal systolic function. Atria Normal left atrium. Normal right atrium. Mitral Valve Bileaflet diffuse mitral valve thickening. Mild-Moderate (1-2+) eccentric mitral valve insufficiency. Tricuspid Valve Normal tricuspid valve. Moderate (2+) tricuspid valve insufficiency. Pulmonary artery systolic pressure is 60 mmHg. Moderate pulmonary hypertension. Aortic Valve Normal aortic valve. Pulmonic Valve Normal pulmonic valve. Great Vessels Normal aortic root. The pulmonary artery is normal size. Normal inferior vena cava. Pericardium/Pleural No pericardial effusion. MMode/2D Measurements & Calculations LVIDd: 4.4 cm IVSd: 1.2 cm Ao root diam: 3.0 cm LVIDs: 2.9 cm LVPWd: 1.2 cm RVDd: 3.8 cm FS: 34.4 % LAV(MOD-bp): 61.0 ml LVAd ap4: 22.5 cm2 SV(MOD-sp4): 31.7 ml LAV(MOD-bp) Indexed: 31.1 ml/m2 EDV(MOD-sp4): 56.2 ml LAV(MOD-sp2): 53.0 ml EDV(sp4-el): 57.3 ml LAV(MOD-sp4): 58.0 ml LVAs ap4: 13.1 cm2 ESV(MOD-sp4): 24.5 ml ESV(sp4-el): 24.2 ml EF(MOD-sp4): 56.4 % EF(sp4-el): 57.7 % SV(sp4-el): 33.1 ml LA A4 area: 21.0 cm2 LA dimension(2D): 4.3 cm RA A4 area: 19.0 cm2 Time Measurements MV dec time: 0.11 sec Doppler Measurements & Calculations MV E max hollis: 163.6 cm/sec Lat Peak E' Hollis: 11.0 cm/sec Med Peak E' Hollis: 8.5 cm/sec MV A max hollis: 88.7 cm/sec E/E' lat: 14.8 E/E' med: 19.2 MV E/A: 1.8 MV V2 max: 184.2 cm/sec MV P1/2t max hollis: 183.4 cm/sec Ao V2 max: 145.3 cm/sec MV max P.6 mmHg MV P1/2t: 54.7 msec Ao max P.4 mmHg MV V2 mean: 109.3 cm/sec Ao V2 mean: 105.4 cm/sec MV mean P.5 mmHg MV dec slope: 981.7 cm/sec2 Ao mean P.8 mmHg MV V2 VTI: 35.3 cm MVA(P1/2t): 4.0 cm2 Ao V2 VTI: 27.1 cm LV V1 max: 124.4 cm/sec PA V2 max: 79.3 cm/sec TR max hollis: 377.3 cm/sec LV V1 max P.2 mmHg TR max P.9 mmHg Interpretation Summary Normal LV size. Left ventricular systolic function is normal. The estimated ejection fraction is 65 %. Stage 3 diastolic dysfunction. Mild-Moderate (1-2+) eccentric mitral valve insufficiency. Pulmonary artery systolic pressure is 60 mmHg. Moderate pulmonary hypertension. Ordering Physician: Negro Gant Referring Physician: [facility] Performed By: Kate Waller, GLADYS, RVT
[2019-05-23 06:08] LABS: Absolute Lymphocyte Count 0.12 X10^3/uL (0.83-4.51); Absolute Neutrophil Count 2.9 X10^3/uL (2.0-7.7); Hematocrit 26.5 % (40-54); Hemoglobin 8.6 g/dL (13.0-16.5); Lymphocyte # 0.12 X10^3/ul (4.0); Lymphocyte % 3.9 % (19-41); Mean Corp Hgb Conc 32.5 g/dL (32-36); Mean Corpuscular Hgb 28.3 pg (27.0-32.0); Mean Corpuscular Volume 87.2 fL (80-94); Mean Platelet Vol. 9.8 fl (6.2-12.0); Monocyte# 0.04 X10^3/uL; Monocyte% 1.3 % (0-10); NRBC Flagged by Analyzer 0 % (0-5); Neutrophil # 2.93 X10^3/uL (2.7-7.7); Neutrophil % 94.2 % (47-70); POSITIVE DIFFERENTIAL YES; Platelet Count 146 K/mm3 (150-450); RBC Distribution Width CV 15.5 % (11.6-14.6); RBC Distribution Width SD 49.2 fl (35.1-43.9); Red Blood Count 3.04 M/mm3 (4.6-6.2); White Blood Count 3.1 K/mm3 (4.4-11.0)
[2019-05-23 06:27] LABS: Differential Indicated SCAN CRITERIA MET
[2019-05-23 06:36] LABS: ALB/GLOB Ratio 0.6 RATIO (0.9-2.4); AST(SGOT) 40 U/L (15-37); Alanine Aminotransfer ALT/SGPT 20 U/L (16-61); Alkaline Phosphatase 204 U/L (45-117); Anion Gap 11 (5-15); BUN 11 mg/dL (7-18); BUN/Creat Ratio 10.4 RATIO (10-20); Calcium,Total 8.9 mg/dL (8.5-10.1); Chloride 95 mmol/L (98-107); Cholesterol 144 mg/dL (200); Creatinine, Serum 1.06 mg/dL (0.70-1.30); EST Glomerular Filtration Rate 76 mL/min (>60); Est Glom Filt Rate - Afr Amer 92 mL/min (>60); Estimated Creatinine Clearance 71.02 ml/min; Globulin 4.7 g/dL (2.2-4.2); Glucose 144 mg/dL (74-106); High Density Lipoprotein 112 mg/dL; Magnesium 1.5 mg/dL (1.6-2.6); Potassium 4.2 mmol/L (3.5-5.1); Protein, Total 7.7 g/dL (6.4-8.2); Sodium Level 125 mmol/L (136-145); Triglycerides 56 mg/dL; Very Low Density Lipoprotein 11 mg/dL (5-40)
[2019-05-23] MEDS: busPIRone 15 MG TABLET PO ×2 (09:31→22:23)
[2019-05-23] MEDS: Pantoprazole Sodium 20 MG Tablet PO ×2 (09:32→22:25)
[2019-05-23] MEDS: Gabapentin 300 MG Capsule PO (09:32)
[2019-05-23] MEDS: Magnesium Oxide 400 MG Tablet PO (09:32)
[2019-05-23] MEDS: Citalopram 40 MG TABLET PO (09:32)
[2019-05-23] MEDS: Folic Acid 1 MG Tablet PO (09:32)
[2019-05-23] MEDS: Clopidogrel Bisulfate 75 MG Tablet PO (09:32)
[2019-05-23] MEDS: Lisinopril 5 MG Tablet PO (09:32)
[2019-05-23] MEDS: Metoprolol Tartrate 50 MG Tablet PO ×2 (09:33→11:19)
[2019-05-23] MEDS: Enoxaparin 40 MG/0.4 ML Syringe SC (09:34)
[2019-05-23] MEDS: busPIRone 5 MG Tablet PO ×2 (09:35→22:23)
[2019-05-23] MEDS: hydrOXYzine PAM 25 MG Capsule 50 MG PO ×2 (11:16→22:25)
--- NOTE | 2019-05-23 12:34 | PCM.PN.HOSP ---
<Jack Hutson - Last Filed: 05/23/19 12:34> Patient Problems: Active and Suspected Problems Hyponatremia (Acute) Elevated troponin (Acute) Chest pain (Acute) Shortness of breath (Acute) COPD exacerbation (Acute) Reason for Visit: SOB Subjective: SOB and wheezing resolved. No cough today. Chest pain occurred with cough yesterday. No CP today. Pt is anxious stating he is agoraphobic and never leaves his house. He is agreeable to stress test in AM. Vitals/I&O's: Vital Signs Temp Pulse Resp BP Pulse Ox 98 F 101 H 18 197/107 H 98 05/23/19 10:56 05/23/19 11:19 05/23/19 10:56 05/23/19 11:19 05/23/19 10:56 Oxygen Delivery Method Room Air Weight: 193 lb 1.999 oz Body Mass Index (BMI) 30.2 Finger Stick Blood Glucose 120 Intake and Output for Last 24 Hours 05/21/19 05/22/19 05/23/19 23:59 23:59 23:59 Intake Total 500 / 500 3035.00 / 3035.00 Output Total 300 / 300 Balance 500 / 200 2735.00 / 2735.00 General: Alert, Oriented x3, Cooperative HEENT: Atraumatic, PERRLA, EOMI, Normocephalic Neck: Supple, No JVD, Negative Carotid Bruits Lungs: Clear to auscultation, Diminished Cardiovascular: Regular rate, No murmurs Abdomen: Bowel Sounds Present, Soft, Non Tender Extremities: No edema, Capillary Refill Less than 3 Seconds Skin: No rashes, No breakdown Musculoskeletal: No Tenderness to Palpation of Joints or Extremities Neurological: Cranial nerves II-XII grossly intact Psych/Mental Status: Appropriate, Anxious, Alert and oriented to time, place, person, mood and affect Microbiology Past 72 Hours 05/22/19 15:23 Mucosa - Nose Influenza Types A,B Direct FA (OLAYINKA) - Final Laboratory Results 05/22/19 14:33: PT 14.0, INR 1.1 05/22/19 14:35: WBC 7.7, RBC 3.03 L, Hgb 8.6 L, Hct 27.0 L, MCV 89.1, MCH 28.4, MCHC 31.9 L, RDW Std Deviation 50.4 H, RDW Coeff of Donnie 15.6 H, Plt Count 199, MPV 9.5, Immature Gran % (Auto) 0.500, Neut % (Auto) 77.2 H, Lymph % (Auto) 13.8 L, [place] % (Auto) 7.7, Eos % (Auto) 0.5, Baso % (Auto) 0.3, Absolute Neuts (auto) 5.9, Absolute Lymphs (auto) 1.06, Nucleated RBC % 0 05/22/19 14:35: Sodium 119 L*, Potassium 5.0, Chloride 90 L, Carbon Dioxide 22.0, Anion Gap 7, BUN 9, Creatinine 0.97, Estim Creat Clear Calc 77.61, Est GFR (MDRD) Af Amer 102, Est GFR (MDRD) Non-Af 84, BUN/Creatinine Ratio 9.2 L, Glucose 92, Calcium 9.0, Troponin I 0.158 H 05/22/19 14:35: Lactic Acid 1.8 05/22/19 14:35: Total Bilirubin 0.60, Direct Bilirubin 0.37 H, AST 41 H, ALT 19, Alkaline Phosphatase 211 H, Total Protein 7.6, Albumin 2.9 L, Globulin 4.7 H 05/22/19 18:17: Troponin I 0.161 H 05/22/19 23:00: Troponin I 0.118 H 05/23/19 05:48: WBC 3.1 L, RBC 3.04 L, Hgb 8.6 L, Hct 26.5 L, MCV 87.2, MCH 28.3, MCHC 32.5, RDW Std Deviation 49.2 H, RDW Coeff of Donnie 15.5 H, Plt Count 146 L, MPV 9.8, Immature Gran % (Auto) 0.600, Neut % (Auto) 94.2 H, Lymph % (Auto) 3.9 L, [place] % (Auto) 1.3, Eos % (Auto) 0.0, Baso % (Auto) 0.0, Absolute Neuts (auto) 2.9, Absolute Lymphs (auto) 0.12 L, Nucleated RBC % 0, Diff Path Review August05/23/19 05:48: Sodium 125 L, Potassium 4.2, Chloride 95 L, Carbon Dioxide 19.0 L, Anion Gap 11, BUN 11, Creatinine 1.06, Estim Creat Clear Calc 71.02, Est GFR (MDRD) Af Amer 92, Est GFR (MDRD) Non-Af 76, BUN/Creatinine Ratio 10.4, Glucose 144 H, Calcium 8.9, Magnesium 1.5 L, Total Bilirubin 1.30 H, AST 40 H, ALT 20, Alkaline Phosphatase 204 H, Total Protein 7.7, Albumin 3.0 L, Globulin 4.7 H, Albumin/Globulin Ratio 0.6 L, Triglycerides 56, Cholesterol 144, LDL Cholesterol 21, VLDL Cholesterol 11, HDL Cholesterol 112 05/23/19 05:48: Phosphorus 3.0 Current Medications Acetaminophen (Tylenol) 650 mg PO Q6H PRN PRN PRN Reason: Pain Score -01/21 Last Admin: 05/23/19 11:28 Dose: 650 mg Documented by: Albuterol/Ipratropium (Duoneb) 3 ml INHALATION Q4HWA.RT [facility] Last Admin: 05/23/19 10:24 Dose: 3 ml Documented by: Atorvastatin Calcium (Lipitor) 80 mg PO QHS [facility] Last Admin: 05/22/19 21:11 Dose: 80 mg Documented by: Buspirone HCl (Buspar) 15 mg PO BID [facility] Last Admin: 05/23/19 09:31 Dose: 15 mg Documented by: Buspirone HCl (Buspar) 5 mg PO BID [facility] Last Admin: 05/23/19 09:35 Dose: 5 mg Documented by: Citalopram Hydrobromide (Celexa) 40 mg PO DAILY [facility] Last Admin: 05/23/19 09:32 Dose: 40 mg Documented by: Clopidogrel Bisulfate (Plavix) 75 mg PO DAILY [facility] Last Admin: 05/23/19 09:32 Dose: 75 mg Documented by: Enoxaparin Sodium (Lovenox) 40 mg SC DAILY [facility] Last Admin: 05/23/19 09:34 Dose: 40 mg Documented by: Folic Acid (Folic Acid) 1 mg PO DAILY@0800 [facility] Last Admin: 05/23/19 09:32 Dose: 1 mg Documented by: Gabapentin (Neurontin) 300 mg PO DAILY [facility] Last Admin: 05/23/19 09:32 Dose: 300 mg Documented by: Gabapentin (Neurontin) 600 mg PO QHS [facility] Last Admin: 05/22/19 21:11 Dose: 600 mg Documented by: Hydralazine HCl (Apresoline Iv) 5 mg IV Q4H PRN PRN PRN Reason: SBP > 160 Last Admin: 05/23/19 09:43 Dose: 5 mg Documented by: Hydroxyzine Pamoate (Vistaril Pamoate Capsule) 50 mg PO TID PRN PRN PRN Reason: ANXIETY Last Admin: 05/23/19 11:16 Dose: 50 mg Documented by: Sodium Chloride () 500 mls @ 999 mls/hr IV .Q31M ONE Last Infusion: 05/22/19 16:40 Dose: Infused Documented by: Magnesium Sulfate 2 gm/ Sodium (Chloride) 104 mls @ 52 mls/hr IV X1 ONE Stop: 05/23/19 12:59 Last Admin: 05/23/19 10:53 Dose: 52 mls/hr Documented by: Lisinopril (Zestril) 5 mg PO DAILY [facility] Last Admin: 05/23/19 09:32 Dose: 5 mg Documented by: [facility] 400[facility] Last Admin: 05/23/19 09:32 Dose: 400 mg Documented by: Melatonin (Melatonin) 3 mg PO QHS PRN PRN PRN Reason: INSOMNIA Last Admin: 05/22/19 23:50 Dose: 3 mg Documented by: Methylprednisolone (Solu-Medrol) 40 mg IV Q8 [facility] Last Admin: 05/23/19 05:17 Dose: 40 mg Documented by: Metoprolol Tartrate (Lopressor (Beta Olga)) 100 mg PO BID [facility] Nicotine (Nicoderm Cq (Pbkc)) 21 mg TRANSDERM. DAILY [facility] Last Admin: 05/23/19 09:33 Dose: 21 mg Documented by: Nitroglycerin (Nitrostat) 0.4 mg SUBLINGUAL Q5M PRN PRN Reason: CARDIAC/CHEST PAIN Ondansetron HCl (Zofran) 4 mg IV Q8H PRN PRN PRN Reason: NAUSEA/VOMITING Last Admin: 05/22/19 18:30 Dose: 4 mg Documented by: Pantoprazole Sodium (Protonix) 20 mg PO BID [facility] Last Admin: 05/23/19 09:32 Dose: 20 mg Documented by: Sodium Chloride () 10 - 40 ml IV UD PRN PRN Reason: SALINE FLUSH Tizanidine HCl (Zanaflex) 4 mg PO TID PRN PRN PRN Reason: SPASMS STROKE Vital Signs/Narrative: Vital Signs Temp Pulse Resp BP Pulse Ox 05/23/19 11:19 101 H 197/107 H 05/23/19 11:04 101 H 05/23/19 10:56 98 F 100 18 197/107 H 98 05/23/19 10:24 101 H 18 05/23/19 09:43 109 H 202/112 H 05/23/19 09:33 109 H 202/112 H 05/23/19 09:29 97.9 F 109 H 17 202/112 H 98 Medical Necessity - Tobacco Use Smoking Status: Current every day smoker Assessment/Plan All Active Problems Hyponatremia (Acute) Elevated troponin (Acute) Chest pain (Acute) Shortness of breath (Acute) COPD exacerbation (Acute) GI bleed (Acute) 1. COPD exacerbation - improving. Continue solumedrol, aerosols, IS. 2. Hyponatremia - 2/2 beer potomania - improved. fluids held for LE edema. YOSEF wraps added. 3. Alcoholism - no current withdrawal symptoms. He does not want to stop drinking and would rather have beer while here. Will also give thiamine, multivitamin, folate. CIWA protocol. Hx DT. Denies withdrawal seizures. Has had w/d hallucinations in past. Avoid aspirin with hx alcoholism, prior thrombocytopenia, and hx GI bleed. LFTs mildly elevated. INR 1.1. 4. Indeterminate trop - unclear etiology. Some CP with coughing yesterday, none today. EKG neg. Echo pending. Severe HTN - hydralazine prn, increased metoprolol. Asa/plavix are held with anemia and hx hemoccult + stools, low platelets, and 5. Chronic Anemia - recently here with hemoccult + stools. Had EGD with Dr. Abdullahi with nonbleeding grade 2 varices. Platelets improved. check INR. Trend. Hold plavix. Also has diaphragmatic hernia and gastritis. 6. Hx pancreatitis - currently no abd pain/nausea / vomiting 7. Hx esophageal varices - continue PPI 8. Hx stroke - on statin, hold plavix. 9. Anxiety - buspar, vistaril prn 10. HTN - as per #4. DVT ppx: SCDs DC planning: stress in AM. This patient was seen by Jack Hutson PA-C under the supervision of Dr. Gant. <Negro Gant F - Last Filed: 05/23/19 14:07> Vitals/I&O's: Vital Signs Temp Pulse Resp BP Pulse Ox 97.8 F 94 17 162/92 H 98 05/23/19 13:35 05/23/19 13:35 05/23/19 13:35 05/23/19 13:35 05/23/19 13:35 Oxygen Delivery Method Room Air Weight: 193 lb 1.999 oz Body Mass Index (BMI) 30.2 Finger Stick Blood Glucose 120 Intake and Output for Last 24 Hours 05/21/19 05/22/19 05/23/19 23:59 23:59 23:59 Intake Total 500 / 500 3139.00 / 3139.00 Output Total 300 / 300 Balance 500 / 200 2839.00 / 2839.00 Microbiology Past 72 Hours 05/22/19 15:23 Mucosa - Nose Influenza Types A,B Direct FA (OLAYINKA) - Final Laboratory Results 05/22/19 14:33: PT 14.0, INR 1.1 05/22/19 14:35: WBC 7.7, RBC 3.03 L, Hgb 8.6 L, Hct 27.0 L, MCV 89.1, MCH 28.4, MCHC 31.9 L, RDW Std Deviation 50.4 H, RDW Coeff of Donnie 15.6 H, Plt Count 199, MPV 9.5, Immature Gran % (Auto) 0.500, Neut % (Auto) 77.2 H, Lymph % (Auto) 13.8 L, [place] % (Auto) 7.7, Eos % (Auto) 0.5, Baso % (Auto) 0.3, Absolute Neuts (auto) 5.9, Absolute Lymphs (auto) 1.06, Nucleated RBC % 0 05/22/19 14:35: Sodium 119 L*, Potassium 5.0, Chloride 90 L, Carbon Dioxide 22.0, Anion Gap 7, BUN 9, Creatinine 0.97, Estim Creat Clear Calc 77.61, Est GFR (MDRD) Af Amer 102, Est GFR (MDRD) Non-Af 84, BUN/Creatinine Ratio 9.2 L, Glucose 92, Calcium 9.0, Troponin I 0.158 H 05/22/19 14:35: Lactic Acid 1.8 05/22/19 14:35: Total Bilirubin 0.60, Direct Bilirubin 0.37 H, AST 41 H, ALT 19, Alkaline Phosphatase 211 H, Total Protein 7.6, Albumin 2.9 L, Globulin 4.7 H 05/22/19 18:17: Troponin I 0.161 H 05/22/19 23:00: Troponin I 0.118 H 05/23/19 05:48: WBC 3.1 L, RBC 3.04 L, Hgb 8.6 L, Hct 26.5 L, MCV 87.2, MCH 28.3, MCHC 32.5, RDW Std Deviation 49.2 H, RDW Coeff of Donnie 15.5 H, Plt Count 146 L, MPV 9.8, Immature Gran % (Auto) 0.600, Neut % (Auto) 94.2 H, Lymph % (Auto) 3.9 L, [place] % (Auto) 1.3, Eos % (Auto) 0.0, Baso % (Auto) 0.0, Absolute Neuts (auto) 2.9, Absolute Lymphs (auto) 0.12 L, Nucleated RBC % 0, Diff Path Review August05/23/19 05:48: Sodium 125 L, Potassium 4.2, Chloride 95 L, Carbon Dioxide 19.0 L, Anion Gap 11, BUN 11, Creatinine 1.06, Estim Creat Clear Calc 71.02, Est GFR (MDRD) Af Amer 92, Est GFR (MDRD) Non-Af 76, BUN/Creatinine Ratio 10.4, Glucose 144 H, Calcium 8.9, Magnesium 1.5 L, Total Bilirubin 1.30 H, AST 40 H, ALT 20, Alkaline Phosphatase 204 H, Total Protein 7.7, Albumin 3.0 L, Globulin 4.7 H, Albumin/Globulin Ratio 0.6 L, Triglycerides 56, Cholesterol 144, LDL Cholesterol 21, VLDL Cholesterol 11, HDL Cholesterol 112 05/23/19 05:48: Phosphorus 3.0 Current Medications Acetaminophen (Tylenol) 650 mg PO Q6H PRN PRN PRN Reason: Pain Score 1-10/ Last Admin: 05/23/19 11:28 Dose: 650 mg Documented by: Albuterol/Ipratropium (Duoneb) 3 ml INHALATION Q4HWA.RT [place] Last Admin: 05/23/19 10:24 Dose: 3 ml Documented by: Atorvastatin Calcium (Lipitor) 80 mg PO QHS [facility] Last Admin: 05/22/19 21:11 Dose: 80 mg Documented by: Buspirone HCl (Buspar) 15 mg PO BID [facility] Last Admin: 05/23/19 09:31 Dose: 15 mg Documented by: Buspirone HCl (Buspar) 5 mg PO BID [facility] Last Admin: 05/23/19 09:35 Dose: 5 mg Documented by: Citalopram Hydrobromide (Celexa) 40 mg PO DAILY [facility] Last Admin: 05/23/19 09:32 Dose: 40 mg Documented by: Clopidogrel Bisulfate (Plavix) 75 mg PO DAILY [facility] Last Admin: 05/23/19 09:32 Dose: 75 mg Documented by: Enoxaparin Sodium (Lovenox) 40 mg SC DAILY [facility] Last Admin: 05/23/19 09:34 Dose: 40 mg Documented by: Folic Acid (Folic Acid) 1 mg PO DAILY@0800 [facility] Last Admin: 05/23/19 09:32 Dose: 1 mg Documented by: Gabapentin (Neurontin) 300 mg PO DAILY [facility] Last Admin: 05/23/19 09:32 Dose: 300 mg Documented by: Gabapentin (Neurontin) 600 mg PO QHS [facility] Last Admin: 05/22/19 21:11 Dose: 600 mg Documented by: Hydralazine HCl (Apresoline Iv) 5 mg IV Q4H PRN PRN PRN Reason: SBP > 160 Last Admin: 05/23/19 09:43 Dose: 5 mg Documented by: Hydroxyzine Pamoate (Vistaril Pamoate Capsule) 50 mg PO TID PRN PRN PRN Reason: ANXIETY Last Admin: 05/23/19 11:16 Dose: 50 mg Documented by: Sodium Chloride () 500 mls @ 999 mls/hr IV .Q31M ONE Last Infusion: 05/22/19 16:40 Dose: Infused Documented by: Lisinopril (Zestril) 5 mg PO DAILY [facility] Last Admin: 05/23/19 09:32 Dose: 5 mg Documented by: [facility] ([facility]Ox 400) [facility] Last Admin: 05/23/19 09:32 Dose: 400 mg Documented by: Melatonin (Melatonin) 3 mg PO QHS PRN PRN PRN Reason: INSOMNIA Last Admin: 05/22/19 23:50 Dose: 3 mg Documented by: Methylprednisolone (Solu-Medrol) 40 mg IV Q8 [facility] Last Admin: 05/23/19 13:07 Dose: 40 mg Documented by: Metoprolol Tartrate (Lopressor (Beta Olga)) 100 mg PO BID [facility] Nicotine (Nicoderm Cq (Pbkc)) 21 mg TRANSDERM. DAILY [facility] Last Admin: 05/23/19 09:33 Dose: 21 mg Documented by: Nitroglycerin (Nitrostat) 0.4 mg SUBLINGUAL Q5M PRN PRN Reason: CARDIAC/CHEST PAIN Ondansetron HCl (Zofran) 4 mg IV Q8H PRN PRN PRN Reason: NAUSEA/VOMITING Last Admin: 05/22/19 18:30 Dose: 4 mg Documented by: Pantoprazole Sodium (Protonix) 20 mg PO BID [facility] Last Admin: 05/23/19 09:32 Dose: 20 mg Documented by: Sodium Chloride () 10 - 40 ml IV UD PRN PRN Reason: SALINE FLUSH Last Admin: 05/23/19 13:07 Dose: 20 ml Documented by: Tizanidine HCl (Zanaflex) 4 mg PO TID PRN PRN PRN Reason: SPASMS STROKE Vital Signs/Narrative: Vital Signs Temp Pulse Resp BP Pulse Ox 05/23/19 13:35 97.8 F 94 17 162/92 H 98 05/23/19 11:19 101 H 197/107 H 05/23/19 11:04 101 H 05/23/19 10:56 98 F 100 18 197/107 H 98 05/23/19 10:24 101 H 18 Code Visit Insert addendum 58-year-old male presents with chest pain and a cough secondary to COPD. Wheezing has resolved as has the shortness of breath. He states that he also gets anxious because he is agoraphobic. His troponin was elevated and therefore he was admitted for chest pain rule out. His troponin initially went up and then they went back down, given his age and his history will plan for an echo and a stress test in the morning and then discharge home. He has an alcoholic and he refuses to quit therefore he was started on 3 beers with meals every day he drinks about 12/day at home. Also hyponatremia is resolving with IV fluids. Inpatient E&M: 10619 Subs Hosp L2
[2019-05-23] MEDS: 0.9% Saline Lock 10 ML Syringe IV ×3 (13:07→22:31)
[2019-05-23] MEDS: Atorvastatin Calcium 80 MG Tablet PO (22:23)
[2019-05-23] MEDS: Metoprolol Tartrate 100 MG Tablet PO (22:24)
[2019-05-23] MEDS: Gabapentin 600 MG Tablet PO (22:25)
[2019-05-24] VITALS (9 sets, daily range): BP systolic 143–171; BP diastolic 79–125; PULSE 85–98; RESP 16–20; TEMP 36.3–36.8; O2SAT 97–99
[2019-05-24] MEDS: Clopidogrel Bisulfate 75 MG Tablet PO (05:43)
[2019-05-24] MEDS: Lisinopril 5 MG Tablet PO (05:44)
[2019-05-24] MEDS: Pantoprazole Sodium 20 MG Tablet PO (05:44)
[2019-05-24] MEDS: 0.9% Saline Lock 10 ML Syringe IV ×2 (05:46→08:42)
[2019-05-24 06:00] LABS: Absolute Lymphocyte Count 0.14 X10^3/uL (0.83-4.51); Absolute Neutrophil Count 5.5 X10^3/uL (2.0-7.7); Hemoglobin 7.5 g/dL (13.0-16.5); Lymphocyte # 0.14 X10^3/ul (4.0); Lymphocyte % 2.4 % (19-41); Mean Corp Hgb Conc 32.6 g/dL (32-36); Mean Corpuscular Hgb 28.3 pg (27.0-32.0); Mean Corpuscular Volume 86.8 fL (80-94); Mean Platelet Vol. 9.5 fl (6.2-12.0); Monocyte# 0.25 X10^3/uL; Monocyte% 4.3 % (0-10); NRBC Flagged by Analyzer 0 % (0-5); Neutrophil # 5.45 X10^3/uL (2.7-7.7); Neutrophil % 92.6 % (47-70); POSITIVE DIFFERENTIAL YES; Platelet Count 116 K/mm3 (150-450); RBC Distribution Width CV 15.8 % (11.6-14.6); RBC Distribution Width SD 50.3 fl (35.1-43.9); Red Blood Count 2.65 M/mm3 (4.6-6.2); White Blood Count 5.9 K/mm3 (4.4-11.0)
[2019-05-24 06:12] LABS: Differential Indicated SCAN CRITERIA MET
[2019-05-24 06:14] LABS: Anion Gap 9 (5-15); BUN 12 mg/dL (7-18); BUN/Creat Ratio 12.8 RATIO (10-20); Calcium,Total 8.7 mg/dL (8.5-10.1); Chloride 90 mmol/L (98-107); Creatinine, Serum 0.94 mg/dL (0.70-1.30); EST Glomerular Filtration Rate 87 mL/min (>60); Est Glom Filt Rate - Afr Amer 106 mL/min (>60); Estimated Creatinine Clearance 80.09 ml/min; Glucose 111 mg/dL (74-106); Potassium 4.4 mmol/L (3.5-5.1); Sodium Level 120 mmol/L (136-145)
[2019-05-24] MEDS: Ipratropium/Albuterol Sulfate 3 ML AMPUL.NEB INHALATION (06:29)
[2019-05-24 06:39] LABS: Differential Comment SCANNED
[2019-05-24] MEDS: Acetaminophen 325 MG Tablet 650 MG PO (07:43)
[2019-05-24] MEDS: hydrALAZINE 20 MG/ML Vial 5 MG IV (08:42)
[2019-05-24] MEDS: Magnesium Oxide 400 MG Tablet PO (11:54)
[2019-05-24] MEDS: Folic Acid 1 MG Tablet PO (11:54)
[2019-05-24] MEDS: Gabapentin 300 MG Capsule PO (11:54)
[2019-05-24] MEDS: hydrOXYzine PAM 25 MG Capsule 50 MG PO (11:54)
[2019-05-24] MEDS: Metoprolol Tartrate 100 MG Tablet PO (11:54)
[2019-05-24] MEDS: busPIRone 15 MG TABLET PO (11:55)
[2019-05-24] MEDS: Citalopram 40 MG TABLET PO (11:55)
[2019-05-24] MEDS: busPIRone 5 MG Tablet PO (11:55)
--- NOTE | 2019-05-24 12:07 | STRESSREP ---
Stress Test Report Pharmacologic myocardial perfusion stress test. 58-year-old man with a history of abnormal cardiac enzymes, anemia, and chest pain. Stress protocol: Resting EKG demonstrates normal sinus rhythm with a rate of 90 bpm normal intervals are noted resting blood pressures 160/90 mmHg. 0.4 mg of regadenoson was infused per usual protocol followed by rapid intravenous saline infusion. The maximum heart rate obtained was noted to be 102 bpm which was 62% of maximum predicted heart rate the maximum workload was 1 metabolic equivalent. At rest there were no ST or T wave changes noted to suggest abnormal flow reserve and at peak infusion nonspecific ST-T wave changes were noted with no meet the criteria for abnormal flow reserve. No clinical angina was noted. Myocardial perfusion protocol. 11.4 mCi of technetium 99m sestamibi was injected at rest. 0.4 mg of regadenoson was infused per usual protocol peak infusion 32.0 mCi of technetium 99m sestamibi was injected stress images were obtained stress and rest images were reconstructed and compared in the short axis vertical long horizontal long axis. Gated images were also obtained per Perfusion SPECT analysis: Review of the stress images demonstrate normal uptake of tracer noted in all areas of the myocardium the resting images similar demonstrate normal uptake of tracer noted in all areas of the myocardium. No areas of reversibility are noted suggest ischemia no previous infarct is noted. Gated SPECT analysis: The gated ejection fraction is 71%. Conclusion: Normal pharmacologic myocardial perfusion stress test. Preserved ejection fraction.
--- NOTE | 2019-05-24 12:11 | PCM.DC ---
- Discharge Diagnoses Current Active Problems: Current Active and Chronic Problems Hyponatremia (Acute) Elevated troponin (Acute) Chest pain (Acute) Shortness of breath (Acute) COPD exacerbation (Acute) You will use the following diet at home:: Cardiac Your food should be the consistency of: Regular Your liquids should be the consistency of: Regular/Thin Discharge Activity: Return to Normal Activity Additional Instructions: You will need to have a blood work (CBC, BMP) checked within 1 week. Call your PCP to arrange this. Allergies/Adverse Reactions: Allergies No Known Allergies Allergy (Verified 05/08/19 14:54) Medications to take at Discharge Clopidogrel Bisulfate [Plavix] 75 mg PO DAILY 09/10/16 Folic Acid 1 mg PO DAILY@0800 09/10/16 Metoprolol Tartrate [Lopressor (beta ran)] 50 mg PO BID 09/10/16 Pantoprazole Sodium [Protonix] 20 mg PO BID 09/10/16 Rosuvastatin Calcium 40 mg PO QHS 09/23/16 Citalopram Hydrobromide [Celexa] 40 mg PO DAILY 06/15/17 Gabapentin [Neurontin] 600 mg PO QHS 08/17/18 busPIRone [Buspar] 20 mg PO BID 08/17/18 Gabapentin [Neurontin] 300 mg PO DAILY 08/30/18 Albuterol IH (ProAir) [Proair Hfa] 1 - 2 puff INHALATION Q4H PRN PRN 04/25/19 Budesonide/Formoterol Fumarate [Symbicort 160-4.5 Mcg Inhaler] 2 puff IH BID 04/25/19 Cholecalciferol (VIT D3) [Vitamin D3] 2,000 unit PO DAILY 04/25/19 Lisinopril 5 mg PO DAILY 04/25/19 Magnesium Oxide [Mag-Ox 400] 400 mg PO DAILY 04/25/19 Tizanidine HCl 4 mg PO TID PRN PRN 04/25/19 Prednisone 10 mg PO UD #30 tab 05/24/19 The following prescriptions were given: Prednisone 10 mg PO UD #30 tab Transmission Status: Pending to [facility] Primary Care Physician: [facility] [Primary Care Provider] - Please follow up with your Primary Care Physician in: 1-2 weeks Test Results: Test results from this visit will be discussed in further detail at your follow-up appointment, if applicable. Proposed Discharge Date: 05/24/19
--- NOTE | 2019-05-24 12:16 | CASEMGMT ---
SW met with patient, introduced self and role at [facility]. SW asked patient if he would like any resources to help him quit drinking. He said he does not want any help. He said he does not plan on stopping. He thanked MALIA for checking in with him. Alexandria ARAUJO
--- NOTE | 2019-05-24 12:32 | CASEMGMT ---
Patient has a Healthcare Power of D[employer] and Healthcare Living Will on file at [facility]. However, patient's living will is not signed by witnesses nor is it signed by a notary. SW did let patient know this information. Alexandria ARAUJO
--- NOTE | 2019-05-24 12:36 | NURSING ---
Gave one beer per patient request with meal at this time
--- NOTE | 2019-05-24 12:43 | CASEMGMT ---
Case Management Readmission Note: Last Admit 04/25-04/26/2019 for AoC Symptomatic Anemia, signed out AMA on 04/26/2019 after EGD completed. Met with patient at bedside, sitting up in bed. Introduced self and role. Confirmed no changes from previous admission assessment by this chief underwriter on 04/26/2019 in which patient signed out AMA. Patient confirms [facility] and denies any issues/concerns or barriers encountered from last admission with DC. Admitted this time on 05/22/2019 for COPD and Hyponatremia. States goal is to DC home and denies any concerns, issues, needs, or questions with DC planning at this time. Aware CM remains available for any emerging needs. Kimberly Wynne RNCM
[2019-05-24 14:01] LABS: Pathologist Review Reviewed
--- NOTE | 2019-05-24 15:33 | DS.PCM_ITS ---
<Jack Hutson - Last Filed: 05/24/19 15:33> Discharge Date and Diagnosis Date of Admission: 05/22/19 Date of Discharge: 05/24/19 - Primary Discharge Diagnosis COPD exacerbation Chest pain indeterminate troponin Alcoholism Normocytic anemia thrombocytopenia hx GI bleed uncontrolled HTN hx pancreatitis hx esophageal varices hx stroke hx hep C anxiety, agoraphobia htn - Secondary Discharge Diagnosis Chronic Problems Anxiety (Chronic) Anemia (Chronic) Pancreatitis (Chronic) Stroke (Chronic) Alcohol abuse (Chronic) Tobacco abuse (Chronic) Hepatitis C (Chronic) Depression (Chronic) COPD (chronic obstructive pulmonary disease) (Chronic) Hyperlipemia (Chronic) GERD (gastroesophageal reflux disease) (Chronic) HTN (hypertension) (Chronic) Colonic polyp (Chronic) Colon, diverticulosis (Chronic) Nicotine addiction (Chronic) RENETTA (obstructive sleep apnea) (Chronic) Carotid stenosis (Chronic) Hospital Course and Treatment Imaging Results: IMPRESSION: Mild cardiomegaly and platelike atelectasis in right lower lobe. No consolidative process Echo: Interpretation Summary Normal LV size. Left ventricular systolic function is normal. The estimated ejection fraction is 65 %. Stage 3 diastolic dysfunction. Mild-Moderate (1-2+) eccentric mitral valve insufficiency. Pulmonary artery systolic pressure is 60 mmHg. Moderate pulmonary hypertension. Stress test: Gated SPECT analysis: The gated ejection fraction is 71%. Operations: None Procedures: 2-D Echocardiogram, Stress test Summary of Care Provided: Hospital Course: The patient is a 58 year old M with pmhx of COPD, alcoholism, hep c, pancreatitis, esophageal varices, GI bleeding, stroke, htn, hld, nicotine abuse, carotid stenosis, who presented to the ER with c/o SOB. The patient woke up very SOB the AM of presentation and was severely wheezy with a productive cough, and chest pain. He came to the ER, was not hypoxic, had CXR with atelectasis and cardiomegaly, had indeterminate troponin, significant HTN, and marked hyponatremia at 119. He was admitted to the hospital for COPD exacerbation and treated with solumedrol, aerosols, and given IV NaCl, which did somewhat improve his sodium (felt to be beer potomania - drinks at least 12 beers per day). He improved significantly overnight. As he had marked HTN, chest pain, and indeterminate trop with a high risk hx he went for a stress test the following day - this was negative. He had an echocardiogram showing EF 65%, St 3 diastolic dysfunction, and PASP of 60 mmHg. At the time of discharge he had full resolution of his SOB and wheezing. He was transitioned to a prednisone taper. His metoprolol was increased while he was here. His Hgb declined from 8.6 to 7.5 however he declined a blood transfusion. He was advised to have a CBC and BMP checked this week as an outpatient. He will need to follow up with his PCP in 1- 2 weeks. This patient was seen by Jack Hutson PA-C under the supervision of Dr. Gant [] - Physical Exam Vitals/I&O's: Vital Signs Temp Pulse Resp BP Pulse Ox 97.4 F L 93 16 171/98 H 98 05/24/19 11:46 05/24/19 11:54 05/24/19 11:46 05/24/19 11:46 05/24/19 11:46 Oxygen Delivery Method Room Air Weight: 193 lb 1.999 oz Body Mass Index (BMI) 30.2 Finger Stick Blood Glucose 120 Intake and Output for Last 24 Hours 05/22/19 05/23/19 05/24/19 23:59 23:59 23:59 Intake Total 500 / 500 3789.00 / 3789.00 770 / 770 Output Total 300 / 300 1125 / 1125 Balance 500 / 200 3489.00 / 3489.00 -355 / -355 General: Alert, Oriented x3, Cooperative HEENT: Atraumatic, PERRLA, EOMI, Normocephalic Neck: Supple, No JVD, Negative Carotid Bruits Lungs: Clear to auscultation, Normal air movement Cardiovascular: Regular rate, No murmurs Abdomen: Bowel Sounds Present, Soft, Non Tender Extremities: No edema, Capillary Refill Less than 3 Seconds Skin: No rashes, No breakdown Musculoskeletal: No Tenderness to Palpation of Joints or Extremities Neurological: Cranial nerves II-XII grossly intact Psych/Mental Status: Anxious, Alert and oriented to time, place, person, mood and affect Microbiology Past 72 Hours 05/22/19 15:23 Mucosa - Nose Influenza Types A,B Direct FA ([facility]) - Final Laboratory Results 05/23/19 05:48: Diff Path Review Reviewed 05/24/19 05:25: WBC 5.9, RBC 2.65 L, Hgb 7.5 L, Hct 23.0 L, MCV 86.8, MCH 28.3, MCHC 32.6, RDW Std Deviation 50.3 H, RDW Coeff of Donnie 15.8 H, Plt Count 116 L, MPV 9.5, Immature Gran % (Auto) 0.700, Neut % (Auto) 92.6 H, Lymph % (Auto) 2.4 L, Bay % (Auto) 4.3, Eos % (Auto) 0.0, Baso % (Auto) 0.0, Absolute Neuts (auto) 5.5, Absolute Lymphs (auto) 0.14 L, Nucleated RBC % 0, Differential Comment SCANNED 05/24/19 05:25: Sodium 120 L, Potassium 4.4, Chloride 90 L, Carbon Dioxide 21.0, Anion Gap 9, BUN 12, Creatinine 0.94, Estim Creat Clear Calc 80.09, Est GFR (MDRD) Af Amer 106, Est GFR (MDRD) Non-Af 87, BUN/Creatinine Ratio 12.8, Glucose 111 H, Calcium 8.7 Discharge Diet: Low fat/ Low Cholesterol, 2000 mg Sodium Diet Discharge Activity: Return to Normal Activity Home Medications: Medications to take at Discharge Clopidogrel Bisulfate [Plavix] 75 mg PO DAILY 09/10/16 Folic Acid 1 mg PO DAILY@0800 09/10/16 Pantoprazole Sodium [Protonix] 20 mg PO BID 09/10/16 Rosuvastatin Calcium 40 mg PO QHS 09/23/16 Citalopram Hydrobromide [Celexa] 40 mg PO DAILY 06/15/17 Gabapentin [Neurontin] 600 mg PO QHS 08/17/18 busPIRone [Buspar] 20 mg PO BID 08/17/18 Gabapentin [Neurontin] 300 mg PO DAILY 08/30/18 Albuterol IH (ProAir) [Proair Hfa] 1 - 2 puff INHALATION Q4H PRN PRN 04/25/19 Budesonide/Formoterol Fumarate [Symbicort 160-4.5 Mcg Inhaler] 2 puff IH BID 04/25/19 Cholecalciferol (VIT D3) [Vitamin D3] 2,000 unit PO DAILY 04/25/19 Lisinopril 5 mg PO DAILY 04/25/19 Magnesium Oxide [Mag-Ox 400] 400 mg PO DAILY 04/25/19 Tizanidine HCl 4 mg PO TID PRN PRN 04/25/19 Metoprolol Tartrate [Lopressor (beta ran)] 100 mg PO BID #60 tab 05/24/19 Prednisone 10 mg PO UD #30 tab 05/24/19 Following Prescrptions Were Given to Patient: Metoprolol Tartrate [Lopressor (beta ran)] 100 mg PO BID #60 tab Transmission Status: Received by [facility] [place] #30 Prednisone 10 mg PO UD #30 tab Transmission Status: Received by [facility] [place] [facility] Primary Care Physician: [facility] [Primary Care Provider] - Please follow up with your Primary Care Physician in: 1-2 weeks Disposition: Home Minutes spent on discharge:: 35 Patient Condition:: Stable Medical Necessity - Tobacco Use Smoking Status: Current every day smoker Meaningful Use Info Meaningful Use Diagnoses (Choose all that apply): None applicable <Negro Gant - Last Filed: 05/24/19 19:14> Discharge Date and Diagnosis - Secondary Discharge Diagnosis Chronic Problems Anxiety (Chronic) Anemia (Chronic) Pancreatitis (Chronic) Stroke (Chronic) Alcohol abuse (Chronic) Tobacco abuse (Chronic) Hepatitis C (Chronic) Depression (Chronic) COPD (chronic obstructive pulmonary disease) (Chronic) Hyperlipemia (Chronic) GERD (gastroesophageal reflux disease) (Chronic) HTN (hypertension) (Chronic) Colonic polyp (Chronic) Colon, diverticulosis (Chronic) Nicotine addiction (Chronic) RENETTA (obstructive sleep apnea) (Chronic) Carotid stenosis (Chronic) Hospital Course and Treatment Summary of Care Provided: The patient is a 58 year old M [] - Physical Exam Vitals/I&O's: Vital Signs Temp Pulse Resp BP Pulse Ox 97.4 F L 93 16 171/98 H 98 05/24/19 11:46 05/24/19 11:54 05/24/19 11:46 05/24/19 11:46 05/24/19 11:46 Oxygen Delivery Method Room Air Weight: 193 lb 1.999 oz Body Mass Index (BMI) 30.2 Finger Stick Blood Glucose 120 Intake and Output for Last 24 Hours 05/22/19 05/23/19 05/24/19 23:59 23:59 23:59 Intake Total 500 / 500 3789.00 / 3789.00 770 / 770 Output Total 300 / 300 1125 / 1125 Balance 500 / 200 3489.00 / 3489.00 -355 / -355 Microbiology Past 72 Hours 05/22/19 15:23 Mucosa - Nose Influenza Types A,B Direct FA ([facility]) - Final Laboratory Results 05/23/19 05:48: Diff Path Review Reviewed 05/24/19 05:25: WBC 5.9, RBC 2.65 L, Hgb 7.5 L, Hct 23.0 L, MCV 86.8, MCH 28.3, MCHC 32.6, RDW Std Deviation 50.3 H, RDW Coeff of Donnie 15.8 H, Plt Count 116 L, MPV 9.5, Immature Gran % (Auto) 0.700, Neut % (Auto) 92.6 H, Lymph % (Auto) 2.4 L, Bay % (Auto) 4.3, Eos % (Auto) 0.0, Baso % (Auto) 0.0, Absolute Neuts (auto) 5.5, Absolute Lymphs (auto) 0.14 L, Nucleated RBC % 0, Differential Comment SCANNED 05/24/19 05:25: Sodium 120 L, Potassium 4.4, Chloride 90 L, Carbon Dioxide 21.0, Anion Gap 9, BUN 12, Creatinine 0.94, Estim Creat Clear Calc 80.09, Est GFR (MDRD) Af Amer 106, Est GFR (MDRD) Non-Af 87, BUN/Creatinine Ratio 12.8, Glucose 111 H, Calcium 8.7 Code Visit Addendum: Dr. Gant I personally examined the patient and reviewed the chart. I agree with the above. 58-year-old male with history of alcoholism as well as pancreatitis, esophageal varices and a GI bleed presented with chest pain, cough, and a COPD exacerbation. He was initially found to have wheezing on admission as well as an elevated troponin. By the next day his wheezing had resolved and he was breathing much better however he was waiting for an echo and a stress test to evaluate his chest pain. At the time that the orders were put in his hemoglobin was at its baseline in the mid eights. He denies having any signs of bleeding, denies any dark tarry stools or bright red blood. Denies throwing up any blood. He denies any lightheadedness or dizziness. On the day of discharge his hemoglobin was 7.5 he did not want to wait for blood to be given and since he had no symptoms or signs of acute bleeding he was okay for discharge. He did p romise to follow-up with his PCP for outpatient CBC to evaluate his hemoglobin. There is a component of dilution given that he was started on IV fluids for hyponatremia with a sodium of 119. Echo showed stage III diastolic dysfunction he does have some lower extremity edema so he may benefit from Lasix as an outpatient however with his already hyponatremia and his alcoholism he may do more harm than good especially if he is not completely symptomatic. I did discuss with him the role of detox from alcohol however he says that he was not ready. He expressed understanding the risks and benefits of going home and the risks and benefits of the different options presented to him and still wanted to go home. Inpatient E&M: [id number] Disch Hosp
--- NOTE | 2019-05-24 16:00 | CASEMGMT ---
D/C summary faxed to [facility] at this time. Ramon VALENZUELA CM
--- NOTE | 2019-05-25 13:40 | CASEMGMT ---
[facility] DC PHONE CALL DC DATE: 05.24.2019 DC Disposition: Diagnosis on Discharge: Home LACE/STRATA: 03/17 Attempted call to phone. No answer and no machine with name identifier. Tosha PEREIRA RN ACM
== END 2019-05-24 13:47 | disposition home or self-care (01) | DRG 191 ==
LOC: ED 17:11 → PCU 17:39
PROVIDERS: Physician Assistant; Admitting Provider Family Medicine; Emergency Provider Emergency Medicine; Visit Provider Family Medicine
DX: J44.1 Chronic obstructive pulmonary disease with (acute) exacerbation (principal); E87.1 Hypo-osmolality and hyponatremia; F10.20 Alcohol dependence, uncomplicated; F17.210 Nicotine dependence, cigarettes, uncomplicated; D64.9 Anemia, unspecified; K44.9 Diaphragmatic hernia without obstruction or gangrene; D69.6 Thrombocytopenia, unspecified; F40.00 Agoraphobia, unspecified; I69.398 Other sequelae of cerebral infarction; R20.2 Paresthesia of skin; K21.9 Gastro-esophageal reflux disease without esophagitis; G47.33 Obstructive sleep apnea (adult) (pediatric); K57.90 Diverticulosis of intestine, part unspecified, without perforation or abscess without bleeding; E78.5 Hyperlipidemia, unspecified; F32.9 Major depressive disorder, single episode, unspecified; B19.20 Unspecified viral hepatitis C without hepatic coma; Z87.19 Personal history of other diseases of the digestive system
CPT/HCPCS: 36415; 71046; 78452; 80048; 80053; 80061; 80076; 83605; 83735; 84100; 84484; 85025; 85610; 87804; 93005; 93017; 93306; 94640; 97802; 99285; 99406; A9500; J7030; Q9957; A4216; J2405; J2785

== ENCOUNTER 2019-05-25 14:40 | Inpatient (IN) | payer MEDICARE, OTHER, SELFPAY ==
[2019-05-22 17:40] VITALS: BMI 30.2
[2019-05-25] VITALS (7 sets, daily range): BP systolic 110–123; BP diastolic 64–80; PULSE 73–81; RESP 18–27; TEMP 36.3–36.9; O2SAT 98–100; BMI 32.4; BMI 31.5
--- NOTE | 2019-05-25 15:09 | EKG12_ITS ---
Test Reason : WEAKNESS Blood Pressure : / mmHG Vent. Rate : 077 BPM Atrial Rate : 077 BPM P-R Int : 140 ms QRS Dur : 090 ms QT Int : 430 ms P-R-T Axes : 042 092 020 degrees QTc Int : 486 ms Normal sinus rhythm Rightward axis Prolonged QT Abnormal ECG Confirmed by GONZALEZ RAINEY ([id number]), editor in chief newspaper RAJ ANN ([id number]) on 05/27/2019 3:13:31 PM Referred By: CECILIA Confirmed By:GONZALEZ RAINEY
[2019-05-25 15:33] LABS: Absolute Lymphocyte Count 0.74 X10^3/uL (0.83-4.51); Absolute Neutrophil Count 8.4 X10^3/uL (2.0-7.7); Basophil# 0.01 X10^3/uL; Basophil% 0.1 % (0-1); Hematocrit 25.4 % (40-54); Hemoglobin 8.3 g/dL (13.0-16.5); Lymphocyte # 0.74 X10^3/ul (4.0); Lymphocyte % 7.3 % (19-41); Mean Corp Hgb Conc 32.7 g/dL (32-36); Mean Corpuscular Hgb 28.3 pg (27.0-32.0); Mean Corpuscular Volume 86.7 fL (80-94); Mean Platelet Vol. 9.1 fl (6.2-12.0); Monocyte# 0.91 X10^3/uL; Monocyte% 8.9 % (0-10); NRBC Flagged by Analyzer 0 % (0-5); Neutrophil # 8.42 X10^3/uL (2.7-7.7); Neutrophil % 82.8 % (47-70); Platelet Count 171 K/mm3 (150-450); RBC Distribution Width CV 15.3 % (11.6-14.6); RBC Distribution Width SD 48.8 fl (35.1-43.9); Red Blood Count 2.93 M/mm3 (4.6-6.2); White Blood Count 10.2 K/mm3 (4.4-11.0)
--- NOTE | 2019-05-25 15:35 | ED.DCSUM_ITS ---
History of Present Illness Chief Complaint: Weakness Narrative: Patient presenting for evaluation secondary to generalized illness. Patient was recently admitted secondary to hyponatremia and COPD exacerbation. He was discharged yesterday. He states with when he came into the hospital, he was unable to walk and unable to urinate, he had improvement while he was in the hospital, but he states that he had redevelopment of the symptoms. He states that he just feels generally ill. He reports generalized weakness that is nonlateralizing not associated with any sort of speech difficulty or vision changes. Patient states that the last time he urinated was yesterday. He denies any reemergence of fever cough nausea vomiting or diarrhea. His shortness of breath is associated with wheezing, and associated with his underlying COPD. He reports that he was supposed to start on steroids but has not taken them. Review of systems otherwise negative. Past Medical History - Allergies and Home Meds Allergies/Adverse Reactions: Allergies No Known Allergies Allergy (Verified 05/08/19 14:54) Primary Care Physician: [facility],[place] [Primary Care Provider] - Past Medical History: - - Alcoholism, COPD Surgical History: - - surgery on left foot due to accident, carotid endarterectemy on the right side. Smoking Status: Current every day smoker - Family History Maternal Family History: Reports: No pertinent history - denies cancer, cad, DM, stroke Paternal Family History: Reports: - - alcoholism, of suicide Review of Systems All systems negative except as indicated General: Reports: Malaise Eyes: Denies: Visual changes - bilaterally, Diplopia ENT: Denies: Rhinorrhea, Sore throat Cardiovascular: Denies: Chest pain, Palpitations Respiratory: Reports: Dyspnea, Cough Gastrointestinal: Denies: Abdominal pain, Nausea, Vomiting, Diarrhea, Melena, Hematochezia Genitourinary: Reports: - - Difficulty urinating Musculoskeletal: Denies: Back pain, Extremity Pain Skin: Denies: Rash, Wounds Neurological: Denies: Headache, Weakness, Numbness Physical Exam Vital Signs/Narrative: Vital Signs Temp Pulse Resp BP Pulse Ox 05/25/19 14:41 97.4 F L 77 27 H 115/80 100 Inital Vital Signs reviewed: Yes General: Well nourished, Well developed, No Acute Distress Head: Normocephalic, Atraumatic Eyes: Perrl, EOMI ENT: Moist mucous membranes, No rhinorrhea Neck: Supple, Nontender Cardiovascular: Regular rate, Regular rhythm, No murmurs Respiratory: No distress, CTA bilaterally, Chest nontender Abdomen: Soft, Nontender, Nondistended, Normal bowel sounds Back: Nontender, Normal Inspection Extremities: Edema - 2+ bilateral lower extremity symmetric Skin: Normal color, No rash Neurological: Alert, Oriented x3, Cranial nerves II-XII grossly intact, Normal Strength, Normal Sensation, - - 5 out of 5 strength of the upper and lower extremities bilaterally with normal sensation over all dermatomes. Normal reflexes. Psychological: Normal affect, Normal Mood Diagnostic/Tx/Re-eval - EKG Initial EKG Interpretation: - - Sinus rhythm [address] segments normal T waves. Mildly prolonged QTC at 486. No evidence of acute ischemia or arrhythmia. - Medical Decision Making Patient presented secondary to generalized weakness and generalized illness. Laboratory work-up was obtained. EKG was found to be unremarkable. CBC demonstrates patient's chronic anemia. Chemistry shows profound hyponatremia with a sodium of 111. This point the patient was started on very slow sodium replacement with normal saline, and he will be admitted for telemetry monitoring and frequent sodium checks. Due to the fact that the patient was just recently discharged Case management was consulted and will be involved with the patient on the floor. ED Disposition - Plan for ED Patient: Disposition: Acute Care Hospital [facility] Diagnosis: Hyponatremia
[2019-05-25 16:19] LABS: BUN 19 mg/dL (7-18); Glucose 84 mg/dL (74-106)
[2019-05-25 16:20] LABS: ALB/GLOB Ratio 0.7 RATIO (0.9-2.4); AST(SGOT) 55 U/L (15-37); Alanine Aminotransfer ALT/SGPT 28 U/L (16-61); Alkaline Phosphatase 175 U/L (45-117); Anion Gap 10 (5-15); BUN/Creat Ratio 15.8 RATIO (10-20); Calcium,Total 8.5 mg/dL (8.5-10.1); Chloride 82 mmol/L (98-107); EST Glomerular Filtration Rate 66 mL/min (>60); Est Glom Filt Rate - Afr Amer 80 mL/min (>60); Estimated Creatinine Clearance 62.73 ml/min; Globulin 4.2 g/dL (2.2-4.2); Potassium 4.2 mmol/L (3.5-5.1); Protein, Total 7.2 g/dL (6.4-8.2); Sodium Level 111 mmol/L (136-145)
[2019-05-25 16:22] LABS: Bacteria 0 SEEN /hpf (None Seen); Mucous, Urine 0 SEEN /hpf (<or=2+)
[2019-05-25 16:25] LABS: Color, Urine Yellow (Yellow); Glucose, Dipstick Normal (Normal); Ketone-Dipstick 5 mg/dl (Negative); Leukocyte Esterase-Dipstick 25 /ul (Negative); Nitrite-Dipstick Negative (Negative); Occult Blood-Urine 10 /ul (Negative); Protein-Dipstick 500 mg/dl (Negative); Specific Gravity, Urine 1.015 (1.002-1.030); Urine Bilirubin Dipstick Negative (Negative); Urine Clarity Cloudy (Clear); Urine Urobilinogen 1 mg/dl (Normal)
--- NOTE | 2019-05-25 16:31 | HP.PCM_ITS ---
History of Present Illness Date of Admission: 05/25/19 Chief Complaint: dizziness, weakness The patient is a 58 year old M with a PMH as outlined. He was admitted through the ED on 05/25/2019 with a complaint of weakness and lightheadedness as well as dizziness. Patient was admitted and just discharged on 05/24/2019 at [facility]. He was admitted after presenting with a complaint of shortness of breath with associated wheezing and was found to be hyponatremic with sodium of 119. He was admitted and managed for COPD exacerbation and hyponatremia and given IV sodium chloride. Hyponatremia was thought to be due to beer put to rio. He did improve and due to a complaint of chest pain and hypertension as well as indeterminate troponins, he had a stress test during the previous admission. Stress test was negative and he also had an echocardiogram which showed EF of 65% and stage III diastolic dysfunction as well as pulmonary artery systolic pressure of 60 mmHg. Of note, his hemoglobin dropped 7.5 during the previous admission but he declined blood transfusion. He was discharged home on 05/24/2019. He states he went home and started not feeling well and was lightheaded and dizzy. He drank about 5 beers yesterday after arriving home and drank to this morning. Dizziness persisted so he decided to come back to the ED today. He denied any nausea vomiting or diarrhea and states he still short of breath but has improved. He still has some wheezing and has a chronic cough which he states is been going on for over a month and he thought it was due to the weather. Review of systems otherwise negative. In the ED, vitals were significant for respiratory rate of 20 with pulse rate of 79 and blood pressure 122/78. Chemistry showed sodium of 111 with bicarb of 19 and chloride of 82. Troponin was 0.085. CBC showed hemoglobin of 8.3 with WBC of 10.2. He has been admitted to be managed for severe hyponatremia. [] Past Medical History Past Medical History (Chronic Problems): Chronic Problems Anxiety (Chronic) Anemia (Chronic) Pancreatitis (Chronic) Stroke (Chronic) Alcohol abuse (Chronic) Tobacco abuse (Chronic) Hepatitis C (Chronic) Depression (Chronic) COPD (chronic obstructive pulmonary disease) (Chronic) Hyperlipemia (Chronic) GERD (gastroesophageal reflux disease) (Chronic) HTN (hypertension) (Chronic) Colonic polyp (Chronic) Colon, diverticulosis (Chronic) Nicotine addiction (Chronic) RENETTA (obstructive sleep apnea) (Chronic) Carotid stenosis (Chronic) Allergies No Known Allergies Allergy (Verified 05/08/19 14:54) Home Medications: Ambulatory Orders Medication Instructions Recorded Clopidogrel Bisulfate [Plavix] 75 mg PO DAILY 09/10/16 Folic Acid 1 mg PO DAILY@0800 09/10/16 Pantoprazole Sodium [Protonix] 20 mg PO BID 09/10/16 Rosuvastatin Calcium 40 mg PO QHS 09/23/16 Gabapentin [Neurontin] 600 mg PO QHS 08/17/18 busPIRone [Buspar] 20 mg PO BID 08/17/18 Gabapentin [Neurontin] 300 mg PO DAILY 08/30/18 Budesonide/Formoterol Fumarate 2 puff IH BID 04/25/19 [Symbicort 160-4.5 Mcg Inhaler] Cholecalciferol (VIT D3) [Vitamin 2,000 unit PO DAILY 04/25/19 D3] Lisinopril 5 mg PO DAILY 04/25/19 Magnesium Oxide [Mag-Ox 400] 400 mg PO DAILY 04/25/19 Tizanidine HCl 4 mg PO TID PRN PRN 04/25/19 Metoprolol Tartrate [Lopressor 100 mg PO BID #60 tab 05/24/19 (beta ran)] Prednisone 10 mg PO UD #30 tab 05/24/19 Citalopram [Celexa] 40 mg PO DAILY 05/25/19 Surgical History: - - surgery on left foot due to accident, carotid endarterectemy on the right side. Psychiatric History: Depression Smoking Status: Current every day smoker - *Family History Maternal History Items: No pertinent history - denies cancer, cad, DM, stroke Paternal History Items: - - alcoholism, of suicide Review of Systems Constitutional: Reports: Malaise, Weakness, Weight Change. Denies: Anorexia, Chills, Fever Eyes: Denies: Blurred vision HEENT: Denies: Head Aches, Sinus Congestion, Sinus Drainage Cardiovascular: Reports: Light Headedness. Denies: Chest Pain, Heaviness, Palpitations Respiratory: Reports: Cough, Shortness of Breath, Wheezing. Denies: Shortness of breath at rest, Shortness of breath upon exertion, Sputum production Gastrointestinal: Denies: Abdominal Pain, Nausea, Vomiting Genitourinary: Denies: Dysuria Musculoskeletal: Denies: Joint Pain, Joint Tenderness Skin: Denies: Rash, Wounds Neurological: Reports: Tremor. Denies: Balance problems, Blurred vision, Double vision, Slurred speech, Confusion, Seizures Psychiatric: Denies: Anxiety, Depression, Homicidal Ideations, Suicidal Ideations Hematologic/ Lymphatic: Denies: Easy Bruising, Easy Bleeding VTE Information - Inpt Only VTE Present on Admission: No VTE Pharm Prophylaxis ordered?: Yes Patient Problems: Active and Suspected Problems Hyponatremia (Acute) - Physical Exam Vitals/I&O's: Vital Signs Temp Pulse Resp BP Pulse Ox 97.4 F L 77 27 H 115/80 100 05/25/19 14:41 05/25/19 14:41 05/25/19 14:41 05/25/19 14:41 05/25/19 14:41 Oxygen Delivery Method Room Air Weight: 207 lb 0.225 oz Body Mass Index (BMI) 32.4 Finger Stick Blood Glucose 120 General: Alert, Oriented x3, Cooperative, No apparent distress, Lethargic HEENT: Atraumatic, PERRLA, EOMI, Normocephalic Oral: Dry Mucosa Neck: Supple, No JVD, Negative Carotid Bruits Lungs: Clear to auscultation, Normal air movement, No rhonchi, No wheeze Cardiovascular: Regular rate, Regular Rhythm, Normal S1, Normal S2, No murmurs Abdomen: Bowel Sounds Present, Soft, Non Tender, Non-Distended, No Hepato- splenomegaly Extremities: No clubbing, No cyanosis, No edema, Capillary Refill Less than 3 Seconds Skin: No rashes, No breakdown Musculoskeletal: No Tenderness to Palpation of Joints or Extremities Lymphatic: No Cervical, Supraclavicular, or Inguinal Adenopathy Neurological: Cranial nerves II-XII grossly intact, - - tremors of UEs Psych/Mental Status: Normal Affect, Appropriate, Restless, Alert and oriented to time, place, person, mood and affect Laboratory Results 05/25/19 15:20: WBC 10.2, RBC 2.93 L, Hgb 8.3 L, Hct 25.4 L, MCV 86.7, MCH 28.3, MCHC 32.7, RDW Std Deviation 48.8 H, RDW Coeff of Donnie 15.3 H, Plt Count 171, MPV 9.1, Immature Gran % (Auto) 0.900, Neut % (Auto) 82.8 H, Lymph % (Auto) 7.3 L, [place] % (Auto) 8.9, Eos % (Auto) 0.0, Baso % (Auto) 0.1, Absolute Neuts (auto) 8.4 H, Absolute Lymphs (auto) 0.74 L, Nucleated RBC % 0 05/25/19 15:20: Sodium 111 L*, Potassium 4.2, Chloride 82 L, Carbon Dioxide 19.0 L, Anion Gap 10, BUN 19 H, Creatinine 1.20, Estim Creat Clear Calc 62.73, Est GFR (MDRD) Af Amer 80, Est GFR (MDRD) Non-Af 66, BUN/Creatinine Ratio 15.8, Glucose 84, Calcium 8.5, Total Bilirubin 0.90, AST 55 H, ALT 28, Alkaline P hosphatase 175 H, Troponin I 0.085 H, Total Protein 7.2, Albumin 3.0 L, Globulin 4.2, Albumin/Globulin Ratio 0.7 L 05/25/19 15:20: Ethyl Alcohol 5.0 05/25/19 16:15: Urine Color Yellow, Urine Clarity Cloudy, Urine pH 6.0, Ur Specific [place] 1.015, Urine Protein 500 H, Urine Glucose (UA) Normal, Urine Ketones 5 H, Urine Occult Blood 10 H, Urine Nitrite Negative, Urine Bilirubin Negative, Urine Urobilinogen 1 H, Ur Leukocyte Esterase 25 H, Urine RBC Pending, Urine WBC Pending, Ur Squamous Epith Cells Pending, Urine Bacteria Pending, Urine Mucus Pending Current Medications Sodium Chloride () 1,000 mls @ 150 mls/hr IV .[id number] [facility] Assessment/Plan All Active Problems Hyponatremia (Acute) Elevated troponin (Acute) Chest pain (Acute) Shortness of breath (Acute) COPD exacerbation (Acute) GI bleed (Acute) 58 y/o admitted with a complaint of dizziness and lightheadedness 1. Acute on chronic hyponatremia * Na is 111; sodium was 120 on dc on 03/23/19, and was 119 on admission on 05/22/2019. baseline sodium is in the 130s * admit to PCU * check serum and urine osmolality, urine sodium and chloride. * Hyponatremia previously described due to beer potomania. It is very likely patient has beer potomania but I think it is reasonable to assess for other causes as patient also has a chronic history of smoking. * check BNP also * if BNP is not elevated, will hydrate very gently with IVF NS, with aim of increasing sodium by 6-8mmol/L over next 24 hours * consult nephrology * 2. Anemia: Globin is 8.3. Baseline is around 8. Will monitor. 3. Indeterminate troponin: * Troponin is 0.085. * Troponin on admission 2 days ago was around 0.1. * Stress test was negative. * Will monitor. * 4. COPD: Still complains of some mild wheezing. Breathing treatments as needed. Continue prednisone taper. 5. Hypertension: On metoprolol. 5. History of GI bleed and esophageal varices: We will monitor. 6. Heart failure preserved ejection fraction: * EF is around 65% with stage III diastolic dysfunction. * Also a pulmonary systolic status: Full code pressure of 60 mmHg. * BNP is pending. on metoprolol * 7. Chronic alcohol abuse: * Drank 2 cans of beer today and drank 5 cans last night. * Will put on alcohol withdrawal protocol with Librium. * DVT prophylaxis: SCDs Code status; full code * Patient counseled extensively about different types of CODE STATUS including full code, DNR CCA and DNR CCA. Patient elects to be full code. * Total [id number] time 16 minutes. Code Visit Inpatient E&M: 45703 Init Hosp L3 Procedures: 63149 Advncd Care Plan 30 Min
[2019-05-25 16:37] LABS: Fine Granular Cast- Urine 0-5 SEEN /lpf (0-5)
[2019-05-25 16:38] LABS: Squamous Epithelial Cells - UA 0-5 SEEN /hpf (0-5)
[2019-05-25 16:41] LABS: Hyaline Cast 25-50 SEEN /lpf (0-5)
[2019-05-25] MEDS: 0.9% Normal Saline 1,000 ML 150 ML IV (16:41)
[2019-05-25 16:43] LABS: Renal Epithelial Cells 0-5 SEEN /hpf (0-5); White Blood Cells 0-5 SEEN /hpf (0-5)
[2019-05-25 16:44] LABS: Red Blood Cells-Urine 0-5 SEEN /hpf (0-5); Transitional Epithelial - Ur 0-5 SEEN /hpf (0-5)
[2019-05-25] MEDS: chlordiazePOXIDE 25 MG Capsule PO ×2 (18:17→23:22)
[2019-05-25 18:51] LABS: Anion Gap 9 (5-15); BUN 20 mg/dL (7-18); BUN/Creat Ratio 17.7 RATIO (10-20); Calcium,Total 8.4 mg/dL (8.5-10.1); Chloride 85 mmol/L (98-107); Creatinine, Serum 1.13 mg/dL (0.70-1.30); EST Glomerular Filtration Rate 71 mL/min (>60); Est Glom Filt Rate - Afr Amer 86 mL/min (>60); Estimated Creatinine Clearance 66.62 ml/min; Glucose 65 mg/dL (74-106); Magnesium 2.1 mg/dL (1.6-2.6); Potassium 4.1 mmol/L (3.5-5.1); Sodium Level 115 mmol/L (136-145)
[2019-05-25 19:29] LABS: Urine Sodium 11 mmol/L (Not Establ.)
[2019-05-25 19:40] LABS: BNP,B-Type NATRIURETIC PEPTIDE 1788.4 pg/mL (0-100)
[2019-05-25] MEDS: Dextrose 5%/0.9% NaCl 1,000 ML 75 ML IV (19:51)
[2019-05-25 19:52] LABS: Amphetamine Urine VISTA NEGATIVE (<1000 ng/mL); Barbiturate Urine VISTA NEGATIVE (< 200 ng/mL); Benzodiazepine Urine VISTA NEGATIVE (< 200 ng/mL); Cocaine Urine VISTA NEGATIVE (< 300 ng/mL); Ecstacy Urine VISTA NEGATIVE (< 500 ng/mL); Methadone Urine VISTA NEGATIVE (< 300 ng/mL); PCP Urine VISTA NEGATIVE (< 25 ng/mL); THC Urine VISTA NEGATIVE (< 50 ng/mL); Vista UDS pH Range 6
[2019-05-25 19:59] LABS: Osmolality, Serum 240 mOsm/KG (275-295)
[2019-05-25] MEDS: Furosemide 40 MG/4 ML Vial IV (20:49)
[2019-05-25] MEDS: 0.9% Saline Lock 10 ML Syringe IV (20:51)
[2019-05-25 21:33] LABS: Osmolality, Urine 288 mOsm/KG
[2019-05-25 23:03] LABS: Anion Gap 8 (5-15); BUN 20 mg/dL (7-18); BUN/Creat Ratio 17.4 RATIO (10-20); Calcium,Total 8.4 mg/dL (8.5-10.1); Chloride 85 mmol/L (98-107); Creatinine, Serum 1.15 mg/dL (0.70-1.30); EST Glomerular Filtration Rate 69 mL/min (>60); Est Glom Filt Rate - Afr Amer 84 mL/min (>60); Estimated Creatinine Clearance 65.46 ml/min; Glucose 82 mg/dL (74-106); Potassium 4.1 mmol/L (3.5-5.1); Sodium Level 115 mmol/L (136-145)
[2019-05-25] MEDS: Methocarbamol 750 MG Tablet PO (23:59)
[2019-05-26] VITALS (10 sets, daily range): BP systolic 118–144; BP diastolic 63–77; PULSE 82–98; RESP 16–20; TEMP 36.6–37.2; O2SAT 93–97
[2019-05-26 00:54] LABS: Anion Gap 9 (5-15); BUN 19 mg/dL (7-18); BUN/Creat Ratio 17.8 RATIO (10-20); Calcium,Total 8.7 mg/dL (8.5-10.1); Chloride 88 mmol/L (98-107); Creatinine, Serum 1.07 mg/dL (0.70-1.30); EST Glomerular Filtration Rate 75 mL/min (>60); Est Glom Filt Rate - Afr Amer 91 mL/min (>60); Estimated Creatinine Clearance 70.36 ml/min; Glucose 75 mg/dL (74-106); Potassium 3.7 mmol/L (3.5-5.1); Sodium Level 119 mmol/L (136-145)
[2019-05-26] MEDS: chlordiazePOXIDE 25 MG Capsule PO ×3 (05:08→19:58)
[2019-05-26 06:36] LABS: Absolute Lymphocyte Count 0.27 X10^3/uL (0.83-4.51); Absolute Neutrophil Count 3.9 X10^3/uL (2.0-7.7); Eosinophil# 0.01 X10^3/uL; Eosinophils% 0.2 % (0-5); Hematocrit 23.3 % (40-54); Hemoglobin 7.8 g/dL (13.0-16.5); Lymphocyte # 0.27 X10^3/ul (4.0); Lymphocyte % 5.7 % (19-41); Mean Corp Hgb Conc 33.5 g/dL (32-36); Mean Corpuscular Hgb 28.4 pg (27.0-32.0); Mean Corpuscular Volume 84.7 fL (80-94); Mean Platelet Vol. 9.5 fl (6.2-12.0); Monocyte# 0.48 X10^3/uL; Monocyte% 10.2 % (0-10); NRBC Flagged by Analyzer 0 % (0-5); Neutrophil # 3.93 X10^3/uL (2.7-7.7); Neutrophil % 83.3 % (47-70); POSITIVE DIFFERENTIAL YES; Platelet Count 101 K/mm3 (150-450); RBC Distribution Width SD 46.1 fl (35.1-43.9); Red Blood Count 2.75 M/mm3 (4.6-6.2); White Blood Count 4.7 K/mm3 (4.4-11.0)
[2019-05-26 06:46] LABS: Differential Indicated SCAN CRITERIA MET
[2019-05-26 06:51] LABS: BUN 17 mg/dL (7-18); Creatinine, Serum 0.95 mg/dL (0.70-1.30); EST Glomerular Filtration Rate 86 mL/min (>60); Estimated Creatinine Clearance 79.24 ml/min; Glucose 73 mg/dL (74-106)
[2019-05-26 06:52] LABS: Anion Gap 7 (5-15); BUN/Creat Ratio 17.8 RATIO (10-20); Calcium,Total 8.4 mg/dL (8.5-10.1); Chloride 88 mmol/L (98-107); Est Glom Filt Rate - Afr Amer 104 mL/min (>60); Potassium 3.1 mmol/L (3.5-5.1); Sodium Level 120 mmol/L (136-145)
[2019-05-26 07:05] LABS: Platelet Estimate SLT DEC (ADEQ)
[2019-05-26] MEDS: Folic Acid 1 MG Tablet PO (08:30)
[2019-05-26] MEDS: Multivitamins,Therapeutic Tablet 1 TABLET PO (08:30)
[2019-05-26] MEDS: Thiamine Hydrochloride 100 MG Tablet PO (08:30)
[2019-05-26] MEDS: Dextrose 5%/0.9% NaCl 1,000 ML 75 ML IV ×2 (10:07→22:46)
[2019-05-26 10:08] LABS: Magnesium 1.8 mg/dL (1.6-2.6)
[2019-05-26] MEDS: hydrOXYzine PAM 25 MG Capsule 50 MG PO (10:15)
[2019-05-26] MEDS: Furosemide 40 MG/4 ML Vial IV ×2 (10:15→17:30)
--- NOTE | 2019-05-26 11:07 | CASEMGMT ---
[facility] at [facility]. Ramon VALENZUELA CM
--- NOTE | 2019-05-26 11:31 | PCM.CONS.R ---
Consultation - Renal 05/26/19 PCP/ Referring MD: Requesting physician: Dr Jordan Primary care physician: [facility] Reason for Consultation:: Hyponatremia - History of Present Illness History of Present Illness: The patient is a 58 year old M with chronic alcohol abuse re- admitted for dizziness, weakness on 05/24 shortly after discharge from hospital for hyponatremia. Sodium chronically low at 120 on discharge to home then down to 111 on readmission. Sodium levels checked frequently overnight. Urine sodium low at 11. Serum Sodium improved to 120 this morning with NS. He was hypoglycemic given D10W. He has not eaten for 4 days. States agoraphobic and can't eat when someone is watching. He continues to drink alcohol and has tremors. He has preserved LV function but has pulmonary hypertension. He has a history of GI bleed with esophageal varices. Renal function has been stable. He continues to consume alcohol despite multiple discussions to quit. Discussed multiple consequences of drinking including but not limited to liver failure, renal failure, GI bleed, hyponatremia, seizures, etc. - Allergies Allergies: Allergies No Known Allergies Allergy (Verified 05/08/19 14:54) - Current Medications Current Medications: Current Medications Chlordiazepoxide (Librium) 50 mg PO Q6H [place]; Taper Stop: 05/28/19 19:59 Last Admin: 05/26/19 05:08 Dose: 50 mg Documented by: Dicyclomine HCl (Bentyl) 20 mg PO Q6H PRN PRN PRN Reason: abdominal discomfort Folic Acid (Folic Acid) 1 mg PO DAILYCM [facility] Stop: 05/28/19 08:01 Last Admin: 05/26/19 08:30 Dose: 1 mg Documented by: Furosemide (Lasix) 40 mg IV BID@1000,1800 [facility] Last Admin: 05/26/19 10:15 Dose: 40 mg Documented by: Glucagon () 1 mg IM .X1 PRN PRN Reason: Hypoglycemia Hydroxyzine Pamoate (Vistaril Pamoate Capsule) 50 mg PO Q6H PRN PRN PRN Reason: Mild Anxiety (score 1/3) Last Admin: 05/26/19 10:15 Dose: 50 mg Documented by: Dextrose/Sodium Chloride (Dextrose 5%/0.9% Nacl) 1,000 mls @ 75 mls/hr IV .[id number] [facility] Last Admin: 05/26/19 10:07 Dose: 75 mls/hr Documented by: Lorazepam (Ativan) 1 mg IV Q2H PRN PRN PRN Reason: Severe Anxiety Methocarbamol (Methocarbamol) 750 mg PO Q6H PRN PRN PRN Reason: Muscle Aches Last Admin: 05/25/19 23:59 Dose: 750 mg Documented by: [facility]) [facility] Last Admin: 05/26/19 08:30 Dose: 1 tablet Documented by: Nicotine (Nicoderm Cq (Pbkc)) 21 mg TRANSDERM. DAILY [facility] Last Admin: 05/26/19 10:14 Dose: 21 mg Documented by: Nitroglycerin (Nitrostat) 0.4 mg SUBLINGUAL Q5M PRN PRN Reason: CARDIAC/CHEST PAIN Ondansetron HCl (Zofran) 4 mg IV Q8H PRN PRN PRN Reason: NAUSEA/VOMITING Potassium Phos/Sodium Phos (Neutra-Phos Packet) 1 packet PO 4X/DAY [facility] Stop: 05/26/19 22:01 Sodium Chloride () 10 - 40 ml IV UD PRN PRN Reason: SALINE FLUSH Last Admin: 05/25/19 20:51 Dose: 10 ml Documented by: Thiamine HCl ([facility]itamin B1) [facility] Stop: 05/28/19 08:01 Last Admin: 05/26/19 08:30 Dose: 100 mg Documented by: - Past Medical History Past Medical History (Chronic Problems): Chronic Problems Anxiety (Chronic) Anemia (Chronic) Pancreatitis (Chronic) Stroke (Chronic) Alcohol abuse (Chronic) Tobacco abuse (Chronic) Hepatitis C (Chronic) Depression (Chronic) COPD (chronic obstructive pulmonary disease) (Chronic) Hyperlipemia (Chronic) GERD (gastroesophageal reflux disease) (Chronic) HTN (hypertension) (Chronic) Colonic polyp (Chronic) Colon, diverticulosis (Chronic) Nicotine addiction (Chronic) RENETTA (obstructive sleep apnea) (Chronic) Carotid stenosis (Chronic) - Past Surgical History Surgical History: - - surgery on left foot due to accident, carotid endarterectemy on the right side. - Social History Smoking Status: Current every day smoker - Family History Maternal History Items: No pertinent history - denies cancer, cad, DM, stroke Paternal History Items: - - alcoholism, of suicide Review of Systems Constitutional: Reports: Anorexia, Weakness, Fatigue, - - agoraphobia. Denies: Chills, Fever Cardiovascular: Denies: Chest Pain Respiratory: Denies: Cough, Shortness of breath at rest Gastrointestinal: Denies: Abdominal Pain, Constipation, Diarrhea, Nausea, Vomiting Genitourinary: Denies: Dysuria Skin: Denies: Rash Neurological: Reports: Tremor, - - weakness, hx stroke x2. Denies: Seizures Hematologic/ Lymphatic: Reports: Anemia Patient Problems: Active and Suspected Problems Hyponatremia (Acute) - Physical Exam Vitals/I&O's: Vital Signs Temp Pulse Resp BP Pulse Ox 98.9 F 85 16 132/63 H 93 05/26/19 08:05 05/26/19 08:05 05/26/19 08:05 05/26/19 08:05 05/26/19 08:05 Oxygen Delivery Method Room Air Weight: 91.3 kg Body Mass Index (BMI) 31.5 Finger Stick Blood Glucose 120 Intake and Output for Last 24 Hours 05/24/19 05/25/19 05/26/19 23:59 23:59 23:59 Intake Total 803.75 / 1043.75 315 / 315 Output Total 4550 / 4550 Balance 803.75 / -1356.25 -4235 / -4235 General: Alert, Oriented x3, Cooperative, - - debilitated, tremors, Oral: Dry Mucosa Lungs: Clear to auscultation - anteriorly Cardiovascular: Regular rate, No rub noted Abdomen: Bowel Sounds Present, Soft, Non Tender, Distended Extremities: No edema Skin: No rashes Musculoskeletal: Muscle Wasting Neurological: - - hx stroke, gen weakness, debilitated Psych/Mental Status: Anxious, - - agoraphobic, Alert and oriented to time, place, person, mood and affect Laboratory Results 05/25/19 15:20: WBC 10.2, RBC 2.93 L, Hgb 8.3 L, Hct 25.4 L, MCV 86.7, MCH 28.3, MCHC 32.7, RDW Std Deviation 48.8 H, RDW Coeff of Donnie 15.3 H, Plt Count 171, MPV 9.1, Immature Gran % (Auto) 0.900, Neut % (Auto) 82.8 H, Lymph % (Auto) 7.3 L, [place] % (Auto) 8.9, Eos % (Auto) 0.0, Baso % (Auto) 0.1, Absolute Neuts (auto) 8.4 H, Absolute Lymphs (auto) 0.74 L, Nucleated RBC % 0 05/25/19 15:20: Sodium 111 L*, Potassium 4.2, Chloride 82 L, Carbon Dioxide 19.0 L, Anion Gap 10, BUN 19 H, Creatinine 1.20, Estim Creat Clear Calc 62.73, Est GFR (MDRD) Af Amer 80, Est GFR (MDRD) Non-Af 66, BUN/Creatinine Ratio 15.8, Glucose 84, Calcium 8.5, Total Bilirubin 0.90, AST 55 H, ALT 28, Alkaline Phosphatase 175 H, Troponin I 0.085 H, Total Protein 7.2, Albumin 3.0 L, Globulin 4.2, Albumin/Globulin Ratio 0.7 L 05/25/19 15:20: Ethyl Alcohol 5.0 05/25/19 15:20: Serum Osmolality 240 L 05/25/19 15:20: B-Natriuretic Peptide 1788.4 H 05/25/19 16:15: Urine Color Yellow, Urine Clarity Cloudy, Urine pH 6.0, Ur Specific [place] 1.015, Urine Protein 500 H, Urine Glucose (UA) Normal, Urine Ketones 5 H, Urine Occult Blood 10 H, Urine Nitrite Negative, Urine Bilirubin Negative, Urine Urobilinogen 1 H, Ur Leukocyte Esterase 25 H, Urine RBC 0-5 SEEN, Urine WBC 0-5 SEEN, Ur Squamous Epith Cells 0-5 SEEN, Ur Transition Epith Cell 0-5 SEEN, Ur Renal Epithelial Cell 0-5 SEEN, Urine Bacteria 0 SEEN, Hyaline Casts 25-50 SEEN, Fine Granular Casts 0-5 SEEN, Urine Mucus 0 SEEN 05/25/19 18:08: Sodium 115 L*, Potassium 4.1, Chloride 85 L, Carbon Dioxide 21.0, Anion Gap 9, BUN 20 H, Creatinine 1.13, Estim Creat Clear Calc 66.62, Est GFR (MDRD) Af Amer 86, Est GFR (MDRD) Non-Af 71, BUN/Creatinine Ratio 17.7, Glucose 65 L, Calcium 8.4 L, Magnesium 2.1 05/25/19 19:00: Urine Opiates Screen NEGATIVE, Urine Methadone Screen NEGATIVE, Ur Barbiturates Screen NEGATIVE, Ur Phencyclidine Scrn NEGATIVE, Ur Amphetamines Screen NEGATIVE, U Methamphetamin-MDMA NEGATIVE, U Benzodiazepines Scrn NEGATIVE, Urine Cocaine Screen NEGATIVE, U Cannabinoids Screen NEGATIVE, Ur Drug Screen Comment 05/25/19 19:00: Ur Random Sodium 11 05/25/19 19:00: Urine Osmolality 288 05/25/19 21:48: Sodium 115 L*, Potassium 4.1, Chloride 85 L, Carbon Dioxide 22.0, Anion Gap 8, BUN 20 H, Creatinine 1.15, Estim Creat Clear Calc 65.46, Est GFR (MDRD) Af Amer 84, Est GFR (MDRD) Non-Af 69, BUN/Creatinine Ratio 17.4, Glucose 82, Calcium 8.4 L 05/26/19 00:27: Sodium 119 L*, Potassium 3.7, Chloride 88 L, Carbon Dioxide 22.0, Anion Gap 9, BUN 19 H, Creatinine 1.07, Estim Creat Clear Calc 70.36, Est GFR (MDRD) Af Amer 91, Est GFR (MDRD) Non-Af 75, BUN/Creatinine Ratio 17.8, Glucose 75, Calcium 8.7 05/26/19 06:10: WBC 4.7, RBC 2.75 L, Hgb 7.8 L, Hct 23.3 L, MCV 84.7, MCH 28.4, MCHC 33.5, RDW Std Deviation 46.1 H, RDW Coeff of Donnie 15.0 H, Plt Count 101 L, MPV 9.5, Immature Gran % (Auto) 0.600, Neut % (Auto) 83.3 H, Lymph % (Auto) 5.7 L, [place] % (Auto) 10.2 H, Eos % (Auto) 0.2, Baso % (Auto) 0.0, Absolute Neuts (auto) 3.9, Absolute Lymphs (auto) 0.27 L, Nucleated RBC % 0, Differential Comment COMMENT, Platelet Estimate SLT 05/26/19 06:10: Sodium 120 L, Potassium 3.1 L, Chloride 88 L, Carbon Dioxide 25.0, Anion Gap 7, BUN 17, Creatinine 0.95, Estim Creat Clear Calc 79.24, Est GFR (MDRD) Af Amer 104, Est GFR (MDRD) Non-Af 86, BUN/Creatinine Ratio 17.8, Glucose 73 L, Calcium 8.4 L 05/26/19 06:10: Phosphorus 2.0 L, Magnesium 1.8 Current Medications Chlordiazepoxide (Librium) 50 mg PO Q6H [facility]; Taper Stop: 05/28/19 19:59 Last Admin: 05/26/19 05:08 Dose: 50 mg Documented by: Dicyclomine HCl (Bentyl) 20 mg PO Q6H PRN PRN PRN Reason: abdominal discomfort [facility]) [facility] Stop: 05/28/19 08:01 Last Admin: 05/26/19 08:30 Dose: 1 mg Documented by: Furosemide (Lasix) 40 mg IV BID@1000,1800 [facility] Last Admin: 05/26/19 10:15 Dose: 40 mg Documented by: Glucagon () 1 mg IM .X1 PRN PRN Reason: Hypoglycemia Hydroxyzine Pamoate (Vistaril Pamoate Capsule) 50 mg PO Q6H PRN PRN PRN Reason: Mild Anxiety (score 1/3) Last Admin: 05/26/19 10:15 Dose: 50 mg Documented by: Dextrose/Sodium Chloride (Dextrose 5%/0.9% Nacl) 1,000 mls @ 75 mls/hr IV .[id number] [facility] Last Admin: 05/26/19 10:07 Dose: 75 mls/hr Documented by: Lorazepam (Ativan) 1 mg IV Q2H PRN PRN PRN Reason: Severe Anxiety Methocarbamol (Methocarbamol) 750 mg PO Q6H PRN PRN PRN Reason: Muscle Aches Last Admin: 05/25/19 23:59 Dose: 750 mg Documented by: Multivitamins ([facility]ivitamin) [facility] Last Admin: 05/26/19 08:30 Dose: 1 tablet Documented by: Nicotine (Nicoderm Cq (Pbkc)) 21 mg TRANSDERM. DAILY [facility] Last Admin: 05/26/19 10:14 Dose: 21 mg Documented by: Nitroglycerin (Nitrostat) 0.4 mg SUBLINGUAL Q5M PRN PRN Reason: CARDIAC/CHEST PAIN Ondansetron HCl (Zofran) 4 mg IV Q8H PRN PRN PRN Reason: NAUSEA/VOMITING Potassium Phos/Sodium Phos (Neutra-Phos Packet) 1 packet PO 4X/DAY [facility] Stop: 05/26/19 22:01 Sodium Chloride () 10 - 40 ml IV UD PRN PRN Reason: SALINE FLUSH Last Admin: 05/25/19 20:51 Dose: 10 ml Documented by: Thiamine HCl (Vitamin B1) 100 mg PO DAILYCM [facility] Stop: 05/28/19 08:01 Last Admin: 05/26/19 08:30 Dose: 100 mg Documented by: Assessment/Plan All Active Problems Hyponatremia (Acute) Elevated troponin (Acute) Chest pain (Acute) Shortness of breath (Acute) COPD exacerbation (Acute) GI bleed (Acute) 1. Hyponatremia with low sodium at 11 in sodium avid state, possible hepatorenal syndrome. Serum sodium 111 to 120. Discussed risk of seizures with low sodium. Discussed DNR, consider hospice due to poor overall outcome with his continued alcohol abuse. He would benefit for behavior health but his agoraphobia prohibits him from going out to his appts. 2. Chronic Etoh abuse, continues to drink. Hepatomegaly with esophageal varices, thrombocytopenia 3. Pulmonary hypertension 4. HTN stable 5. hx CVA 6. Agoraphobia. 7. anemia
--- NOTE | 2019-05-26 11:41 | CASEMGMT ---
Addendum entered by Alexandria Norman 05/26/19 15:12: MALIA spoke with Claritza at [facility]. She said they will give patient a try to see if they may be able to help him. They will call him when he is discharged. SW spoke with patient about Palliative and he is open to talking with them. SW told him they will call him to set up an appt. He also asked about how to get Medicare Part B so he can start seeing a physician in [place]. SW gave him the information on [facility] Health Insurance Information Program. SW told him to call them and they can direct him with what he needs to do next. He thanked SW for the help. Alexandria ARAUJO Original Note: SW spoke with patient. Introduced self and role at [facility]. SW spoke with patient and asked him if the doctors have told him he has to quit drinking or their is nothing they can do for him. He said they have told him. He told SW he has to be honest with SW. Since his stroke his life has changed. He really has nothing else. He can't work, he is impotent so why bother going on a date. SW asked him if he has been to counseling. [facility] but [facility]'t get [facility]. SW asked him if he is suicidal or homicidal and he said he is not. Patient is pleasant and open with SW about his situation. SW told him SW will need to think about what to do. He said he has to use the bathroom anyway. SW does not really feel a crisis consult would help patient as he denies being suicidal. MALIA did call [facility] to see if they think there is some way they may be able to help patient. Myrna told SW to send information and they will talk with Dr Angeles. SW faxed information to [facility]. SW will check back with patient. Alexandria ARAUJO
[2019-05-26] MEDS: Magnesium Oxide 400 MG Tablet 800 MG PO (12:56)
[2019-05-26] MEDS: Na Biphos/Potassium Phosphate PACKET 1 PACKET PO ×3 (13:05→21:17)
--- NOTE | 2019-05-26 13:37 | PN_ITS ---
<Jack Hutson - Last Filed: 05/26/19 13:37> Patient Problems: Active and Suspected Problems Hyponatremia (Acute) Reason for Visit: Hyponatremia Subjective: Pt returned to the hospital after becoming weak and LH at home. This has now resolved and his hyponatremia is improving. He expresses no intention to quit drinking. He states he has nothing left but drinking, as he cant leave his home, get around, date, and is impotent. He plans to conitnue drinking at [place], despite that it will likely kill him. Vitals/I&O's: Vital Signs Temp Pulse Resp BP Pulse Ox 98.9 F 90 16 132/63 H 93 05/26/19 08:05 05/26/19 08:55 05/26/19 08:05 05/26/19 08:05 05/26/19 08:05 Oxygen Delivery Method Room Air Weight: 201 lb 4.513 oz Body Mass Index (BMI) 31.5 Finger Stick Blood Glucose 120 Intake and Output for Last 24 Hours 05/24/19 05/25/19 05/26/19 23:59 23:59 23:59 Intake Total 803.75 / 1043.75 315 / 315 Output Total 4550 / 4550 Balance 803.75 / -1356.25 -4235 / -4235 General: Alert, Oriented x3, Cooperative HEENT: Atraumatic, PERRLA, EOMI, Normocephalic Neck: Supple, No JVD, Negative Carotid Bruits Lungs: Clear to auscultation, Normal air movement Cardiovascular: Regular rate, No murmurs Abdomen: Bowel Sounds Present, Soft, Non Tender Extremities: No edema, Capillary Refill Less than 3 Seconds Skin: No rashes, No breakdown Musculoskeletal: No Tenderness to Palpation of Joints or Extremities Neurological: Cranial nerves II-XII grossly intact Psych/Mental Status: Normal Affect, Appropriate, Alert and oriented to time, place, person, mood and affect Laboratory Results 05/25/19 15:20: WBC 10.2, RBC 2.93 L, Hgb 8.3 L, Hct 25.4 L, MCV 86.7, MCH 28.3, MCHC 32.7, RDW Std Deviation 48.8 H, RDW Coeff of Donnie 15.3 H, Plt Count 171, MPV 9.1, Immature Gran % (Auto) 0.900, Neut % (Auto) 82.8 H, Lymph % (Auto) 7.3 L, Wayne % (Auto) 8.9, Eos % (Auto) 0.0, Baso % (Auto) 0.1, Absolute Neuts (auto) 8.4 H, Absolute Lymphs (auto) 0.74 L, Nucleated RBC % 0 05/25/19 15:20: Sodium 111 L*, Potassium 4.2, Chloride 82 L, Carbon Dioxide 19.0 L, Anion Gap 10, BUN 19 H, Creatinine 1.20, Estim Creat Clear Calc 62.73, Est GFR (MDRD) Af Amer 80, Est GFR (MDRD) Non-Af 66, BUN/Creatinine Ratio 15.8, G lucose 84, Calcium 8.5, Total Bilirubin 0.90, AST 55 H, ALT 28, Alkaline Phosphatase 175 H, Troponin I 0.085 H, Total Protein 7.2, Albumin 3.0 L, Globulin 4.2, Albumin/Globulin Ratio 0.7 L 05/25/19 15:20: Ethyl Alcohol 5.0 05/25/19 15:20: Serum Osmolality 240 L 05/25/19 15:20: B-Natriuretic Peptide 1788.4 H 05/25/19 16:15: Urine Color Yellow, Urine Clarity Cloudy, Urine pH 6.0, Ur Specific [place] 1.015, Urine Protein 500 H, Urine Glucose (UA) Normal, Urine Ketones 5 H, Urine Occult Blood 10 H, Urine Nitrite Negative, Urine Bilirubin Negative, Urine Urobilinogen 1 H, Ur Leukocyte Esterase 25 H, Urine RBC 0-5 SEEN, Urine WBC 0-5 SEEN, Ur Squamous Epith Cells 0-5 SEEN, Ur Transition Epith Cell 0-5 SEEN, Ur Renal Epithelial Cell 0-5 SEEN, Urine Bacteria 0 SEEN, Hyaline Casts 25-50 SEEN, Fine Granular Casts 0-5 SEEN, Urine Mucus 0 SEEN 05/25/19 18:08: Sodium 115 L*, Potassium 4.1, Chloride 85 L, Carbon Dioxide 21.0, Anion Gap 9, BUN 20 H, Creatinine 1.13, Estim Creat Clear Calc 66.62, Est GFR (MDRD) Af Amer 86, Est GFR (MDRD) Non-Af 71, BUN/Creatinine Ratio 17.7, Glucose 65 L, Calcium 8.4 L, Magnesium 2.1 05/25/19 19:00: Urine Opiates Screen NEGATIVE, Urine Methadone Screen NEGATIVE, Ur Barbiturates Screen NEGATIVE, Ur Phencyclidine Scrn NEGATIVE, Ur Amphetamines Screen NEGATIVE, U Methamphetamin-MDMA NEGATIVE, U Benzodiazepines Scrn NEGATIVE, Urine Cocaine Screen NEGATIVE, U Cannabinoids Screen NEGATIVE, Ur Drug Screen Comment 05/25/19 19:00: Ur Random Sodium 11 05/25/19 19:00: Urine Osmolality 288 05/25/19 21:48: Sodium 115 L*, Potassium 4.1, Chloride 85 L, Carbon Dioxide 22.0, Anion Gap 8, BUN 20 H, Creatinine 1.15, Estim Creat Clear Calc 65.46, Est GFR (MDRD) Af Amer 84, Est GFR (MDRD) Non-Af 69, BUN/Creatinine Ratio 17.4, Glucose 82, Calcium 8.4 L 05/26/19 00:27: Sodium 119 L*, Potassium 3.7, Chloride 88 L, Carbon Dioxide 22.0, Anion Gap 9, BUN 19 H, Creatinine 1.07, Estim Creat Clear Calc 70.36, Est GFR (MDRD) Af Amer 91, Est GFR (MDRD) Non-Af 75, BUN/Creatinine Ratio 17.8, Glucose 75, Calcium 8.7 05/26/19 06:10: WBC 4.7, RBC 2.75 L, Hgb 7.8 L, Hct 23.3 L, MCV 84.7, MCH 28.4, MCHC 33.5, RDW Std Deviation 46.1 H, RDW Coeff of Donnie 15.0 H, Plt Count 101 L, MPV 9.5, Immature Gran % (Auto) 0.600, Neut % (Auto) 83.3 H, Lymph % (Auto) 5.7 L, Wayne % (Auto) 10.2 H, Eos % (Auto) 0.2, Baso % (Auto) 0.0, Absolute Neuts (auto) 3.9, Absolute Lymphs (auto) 0.27 L, Nucleated RBC % 0, Differential Comment COMMENT, Platelet Estimate SLT 05/26/19 06:10: Sodium 120 L, Potassium 3.1 L, Chloride 88 L, Carbon Dioxide 25.0, Anion Gap 7, BUN 17, Creatinine 0.95, Estim Creat Clear Calc 79.24, Est GFR (MDRD) Af Amer 104, Est GFR (MDRD) Non-Af 86, BUN/Creatinine Ratio 17.8, Glucose 73 L, Calcium 8.4 L 05/26/19 06:10: Phosphorus 2.0 L, Magnesium 1.8 Current Medications Chlordiazepoxide (Librium) 50 mg PO Q8H [facility]; Taper Stop: 05/28/19 19:59 Last Admin: 05/26/19 12:56 Dose: 50 mg Documented by: Dicyclomine HCl (Bentyl) 20 mg PO Q6H PRN PRN PRN Reason: abdominal discomfort [facility]) [facility]: 05/28/19 08:01 Last Admin: 05/26/19 08:30 Dose: 1 mg Documented by: Furosemide (Lasix) 40 mg IV BID@1000,1800 [facility] Last Admin: 05/26/19 10:15 Dose: 40 mg Documented by: Glucagon () 1 mg IM .X1 PRN PRN Reason: Hypoglycemia Hydroxyzine Pamoate (Vistaril Pamoate Capsule) 50 mg PO Q6H PRN PRN PRN Reason: Mild Anxiety (score 1/3) Last Admin: 05/26/19 10:15 Dose: 50 mg Documented by: Dextrose/Sodium Chloride (Dextrose 5%/0.9% Nacl) 1,000 mls @ 75 mls/hr IV .[id number] [facility] Last Admin: 05/26/19 10:07 Dose: 75 mls/hr Documented by: Lorazepam (Ativan) 1 mg IV Q2H PRN PRN PRN Reason: Severe Anxiety Methocarbamol (Methocarbamol) 750 mg PO Q6H PRN PRN PRN Reason: Muscle Aches Last Admin: 05/25/19 23:59 Dose: 750 mg Documented by: Multivitamins (Multivitamin) [facility] Last Admin: 05/26/19 08:30 Dose: 1 tablet Documented by: Nicotine (Nicoderm Cq (Pbkc)) 21 mg TRANSDERM. DAILY [facility] Last Admin: 05/26/19 10:14 Dose: 21 mg Documented by: Nitroglycerin (Nitrostat) 0.4 mg SUBLINGUAL Q5M PRN PRN Reason: CARDIAC/CHEST PAIN Ondansetron HCl (Zofran) 4 mg IV Q8H PRN PRN PRN Reason: NAUSEA/VOMITING Potassium Phos/Sodium Phos (Neutra-Phos Packet) 1 packet PO 4X/DAYCM [facility] Stop: 05/27/19 08:01 Last Admin: 05/26/19 13:05 Dose: 1 packet Documented by: Sodium Chloride () 10 - 40 ml IV UD PRN PRN Reason: SALINE FLUSH Last Admin: 05/25/19 20:51 Dose: 10 ml Documented by: Thiamine HCl (Vitamin B1) 100 mg PO DAILYCM [facility] Stop: 05/28/19 08:01 Last Admin: 05/26/19 08:30 Dose: 100 mg Documented by: Medical Necessity - Tobacco Use Smoking Status: Current every day smoker Tobacco Use: Cigarettes Assessment/Plan All Active Problems Hyponatremia (Acute) Elevated troponin (Acute) Chest pain (Acute) Shortness of breath (Acute) COPD exacerbation (Acute) GI bleed (Acute) 1. Hyponatremia 2/2 beer potomania - mild hypoglycemia, now in d5 NaCl. good gradual improvement. Replace K, mag, phos. LFTs abnormal. likely to recur after dc as he plans to continue drinking. 2. Ind. trop - stres test last admission negative. 3. Chronic anemia - stable. hx GI bleed. declined transfusion last admission. 4. Thrombocytopenia - avoid heparin products. 5. Alcoholism - hx hepatomegaly, esophageal varices. No plan or intention to quit. On librium, thiamine, folate, multivitamin, prn ativan. Continue protonix. 6. Hx CVA- plavix/statin held for anemia and abnormal LFTs. 7. Anxiety, depression, agoraphobia - complicating outpatient treatment possibilities. 8. COPD - recent exacerbation - resolved. continue aerosols, prednisone taper. today is day 3 of prednisone 40mg. DVT ppx: SCDs DC planning: consult to for alcoholism. This patient was seen by Jack Hutson PA-C under the supervision of Dr. Gant. <Negro Gant F - Last Filed: 05/26/19 17:02> Vitals/I&O's: Vital Signs Temp Pulse Resp BP Pulse Ox 98.4 F 93 16 135/64 H 97 05/26/19 15:36 05/26/19 15:39 05/26/19 15:36 05/26/19 15:36 05/26/19 15:36 Oxygen Delivery Method Room Air Weight: 201 lb 4.513 oz Body Mass Index (BMI) 31.5 Finger Stick Blood Glucose 120 Intake and Output for Last 24 Hours 05/24/19 05/25/19 05/26/19 23:59 23:59 23:59 Intake Total 803.75 / 1043.75 315 / 315 Output Total 6750 / 6750 Balance 803.75 / -1356.25 -6435 / -6435 Laboratory Results 05/25/19 15:20: Serum Osmolality 240 L 05/25/19 15:20: B-Natriuretic Peptide 1788.4 H 05/25/19 18:08: Sodium 115 L*, Potassium 4.1, Chloride 85 L, Carbon Dioxide 21.0, Anion Gap 9, BUN 20 H, Creatinine 1.13, Estim Creat Clear Calc 66.62, Est GFR (MDRD) Af Amer 86, Est GFR (MDRD) Non-Af 71, BUN/Creatinine Ratio 17.7, Glucose 65 L, Calcium 8.4 L, Magnesium 2.1 05/25/19 19:00: Urine Opiates Screen NEGATIVE, Urine Methadone Screen NEGATIVE, Ur Barbiturates Screen NEGATIVE, Ur Phencyclidine Scrn NEGATIVE, Ur Amphetamines Screen NEGATIVE, U Methamphetamin-MDMA NEGATIVE, U Benzodiazepines Scrn NEGATI VE, Urine Cocaine Screen NEGATIVE, U Cannabinoids Screen NEGATIVE, Ur Drug Screen Comment 05/25/19 19:00: Ur Random Sodium 11 05/25/19 19:00: Urine Osmolality 288 05/25/19 21:48: Sodium 115 L*, Potassium 4.1, Chloride 85 L, Carbon Dioxide 22.0, Anion Gap 8, BUN 20 H, Creatinine 1.15, Estim Creat Clear Calc 65.46, Est GFR (MDRD) Af Amer 84, Est GFR (MDRD) Non-Af 69, BUN/Creatinine Ratio 17.4, Glucose 82, Calcium 8.4 L 05/26/19 00:27: Sodium 119 L*, Potassium 3.7, Chloride 88 L, Carbon Dioxide 22.0, Anion Gap 9, BUN 19 H, Creatinine 1.07, Estim Creat Clear Calc 70.36, Est GFR (MDRD) Af Amer 91, Est GFR (MDRD) Non-Af 75, BUN/Creatinine Ratio 17.8, Glucose 75, Calcium 8.7 05/26/19 06:10: WBC 4.7, RBC 2.75 L, Hgb 7.8 L, Hct 23.3 L, MCV 84.7, MCH 28.4, MCHC 33.5, RDW Std Deviation 46.1 H, RDW Coeff of Donnie 15.0 H, Plt Count 101 L, MPV 9.5, Immature Gran % (Auto) 0.600, Neut % (Auto) 83.3 H, Lymph % (Auto) 5.7 L, Wayne % (Auto) 10.2 H, Eos % (Auto) 0.2, Baso % (Auto) 0.0, Absolute Neuts (auto) 3.9, Absolute Lymphs (auto) 0.27 L, Nucleated RBC % 0, Differential Comment COMMENT, Platelet Estimate SLT 05/26/19 06:10: Sodium 120 L, Potassium 3.1 L, Chloride 88 L, Carbon Dioxide 25.0, Anion Gap 7, BUN 17, Creatinine 0.95, Estim Creat Clear Calc 79.24, Est GFR (MDRD) Af Amer 104, Est GFR (MDRD) Non-Af 86, BUN/Creatinine Ratio 17.8, Glucose 73 L, Calcium 8.4 L 05/26/19 06:10: Phosphorus 2.0 L, Magnesium 1.8 Current Medications Buspirone HCl (Buspar) 5 mg PO BID [facility] Buspirone HCl (Buspar) 15 mg PO BID [facility] Chlordiazepoxide (Librium) 50 mg PO Q8H [facility]; Taper Stop: 05/28/19 19:59 Last Admin: 05/26/19 12:56 Dose: 50 mg Documented by: Citalopram Hydrobromide (Celexa) 40 mg PO DAILY [facility] Dicyclomine HCl (Bentyl) 20 mg PO Q6H PRN PRN PRN Reason: abdominal discomfort Folic Acid (Folic Acid) [facility] Stop: 05/28/19 08:01 Last Admin: 05/26/19 08:30 Dose: 1 mg Documented by: Furosemide (Lasix) 40 mg IV BID@1000,1800 [facility] Last Admin: 05/26/19 10:15 Dose: 40 mg Documented by: Glucagon () 1 mg IM .X1 PRN PRN Reason: Hypoglycemia Hydroxyzine Pamoate (Vistaril Pamoate Capsule) 50 mg PO Q6H PRN PRN PRN Reason: Mild Anxiety (score 1/3) Last Admin: 05/26/19 10:15 Dose: 50 mg Documented by: Dextrose/Sodium Chloride (Dextrose 5%/0.9% Nacl) 1,000 mls @ 75 mls/hr IV .[id number] [facility] Last Admin: 05/26/19 10:07 Dose: 75 mls/hr Documented by: Lisinopril (Zestril) 5 mg PO DAILY [facility] Lorazepam (Ativan) 1 mg IV Q2H PRN PRN PRN Reason: Severe Anxiety Magnesium Oxide (Mag-Ox 400) 400 mg PO DAILY [facility] Methocarbamol (Methocarbamol) 750 mg PO Q6H PRN PRN PRN Reason: Muscle Aches Last Admin: 05/25/19 23:59 Dose: 750 mg Documented by: Metoprolol Tartrate (Lopressor (Beta Olga)) 100 mg PO BID [facility] Multivitamins (Multivitamin) [facility] Last Admin: 05/26/19 08:30 Dose: 1 tablet Documented by: Nicotine (Nicoderm Cq (Pbkc)) 21 mg TRANSDERM. DAILY [facility] Last Admin: 05/26/19 10:14 Dose: 21 mg Documented by: Nitroglycerin (Nitrostat) 0.4 mg SUBLINGUAL Q5M PRN PRN Reason: CARDIAC/CHEST PAIN Ondansetron HCl (Zofran) 4 mg IV Q8H PRN PRN PRN Reason: NAUSEA/VOMITING Pantoprazole Sodium (Protonix) 20 mg PO BID [facility] Potassium Phos/Sodium Phos (Neutra-Phos Packet) 1 packet PO 4X/DAYCM [facility] Stop: 05/27/19 08:01 Last Admin: 05/26/19 13:05 Dose: 1 packet Documented by: Prednisone () 30 mg PO DAILY@0800 [facility] Stop: 05/29/19 08:01 Prednisone () 20 mg PO DAILY@0800 [facility] Stop: 06/01/19 08:01 Prednisone () 10 mg PO DAILY@0800 [facility] Stop: 06/04/19 08:01 Sodium Chloride () 10 - 40 ml IV UD PRN PRN Reason: SALINE FLUSH Last Admin: 05/25/19 20:51 Dose: 10 ml Documented by: Thiamine HCl (Vitamin B1) 100 mg PO DAILYCM [place] Stop: 05/28/19 08:01 Last Admin: 05/26/19 08:30 Dose: 100 mg Documented by: Tizanidine HCl (Zanaflex) 4 mg PO TID PRN PRN PRN Reason: SPASMS STROKE Vital Signs/Narrative: Vital Signs Temp Pulse Resp BP Pulse Ox 05/26/19 15:39 93 05/26/19 15:36 98.4 F 92 16 135/64 H 97 Code Visit Addendum: Dr. Gant I personally examined the patient and reviewed the chart. I agree with the above. 58-year-old man who was recently discharged from the hospital secondary to hyponatremia and alcoholism. His sodium had improved so he was discharged home however he was unable to make it 2 days without continuing to drink and come in with a sodium of 111 and an inability to walk. He routinely states that he does not want to quit drinking and therefore we had a renita discussion with him that if he can quit drinking and he is wanting get help for drinking that we cannot fix any of his medical issues and that he may be ready for hospice care. Nephrology was consulted however they felt that there was not much they could do given his hyponatremia secondary to his alcoholism. We will have behavioral health evaluate him and have further discussions internally try to get him to quit drinking. Inpatient E&M: [id number] Subs Hosp L2
[2019-05-26] MEDS: predniSONE 20 MG Tablet 40 MG PO (15:13)
--- NOTE | 2019-05-26 15:34 | CASEMGMT ---
Received a call from Claritza at [facility] and she scheduled patient's appt with Palliative Care for FridayMay 31 at 11am. SW will make sure patient gets this information before he is discharged. [place] ARAUJO
[2019-05-26] MEDS: 0.9% Saline Lock 10 ML Syringe IV (17:37)
[2019-05-26 19:47] LABS: Anion Gap 8 (5-15); BUN 14 mg/dL (7-18); BUN/Creat Ratio 13.9 RATIO (10-20); Calcium,Total 8.7 mg/dL (8.5-10.1); Chloride 92 mmol/L (98-107); Creatinine, Serum 1.01 mg/dL (0.70-1.30); EST Glomerular Filtration Rate 80 mL/min (>60); Est Glom Filt Rate - Afr Amer 97 mL/min (>60); Estimated Creatinine Clearance 74.54 ml/min; Glucose 146 mg/dL (74-106); Potassium 3.2 mmol/L (3.5-5.1); Sodium Level 128 mmol/L (136-145)
[2019-05-26] MEDS: Metoprolol Tartrate 100 MG Tablet PO (21:16)
[2019-05-26] MEDS: busPIRone 15 MG TABLET PO (21:16)
[2019-05-26] MEDS: busPIRone 5 MG Tablet PO (21:16)
[2019-05-26] MEDS: Pantoprazole Sodium 20 MG Tablet PO (21:17)
[2019-05-26] MEDS: Dicyclomine 10 MG Capsule 20 MG PO (22:42)
[2019-05-27] VITALS (10 sets, daily range): BP systolic 130–137; BP diastolic 55–77; PULSE 77–88; RESP 14–24; TEMP 36.4–36.8; O2SAT 96–99
[2019-05-27] MEDS: chlordiazePOXIDE 25 MG Capsule PO ×3 (03:33→21:02)
[2019-05-27 05:20] LABS: Hematocrit 23.2 % (40-54); Hemoglobin 7.5 g/dL (13.0-16.5); Mean Corp Hgb Conc 32.3 g/dL (32-36); Mean Corpuscular Hgb 28.2 pg (27.0-32.0); Mean Corpuscular Volume 87.2 fL (80-94); Mean Platelet Vol. 9.5 fl (6.2-12.0); POSITIVE COUNT YES; POSITIVE DIFFERENTIAL YES; POSITIVE MORPHOLOGY YES; Platelet Count 94 K/mm3 (150-450); RBC Distribution Width CV 15.4 % (11.6-14.6); RBC Distribution Width SD 49.1 fl (35.1-43.9); Red Blood Count 2.66 M/mm3 (4.6-6.2); White Blood Count 2.9 K/mm3 (4.4-11.0)
[2019-05-27 05:21] LABS: Differential Indicated MANUAL DIFF
[2019-05-27 05:40] LABS: ALB/GLOB Ratio 0.8 RATIO (0.9-2.4); AST(SGOT) 41 U/L (15-37); Alanine Aminotransfer ALT/SGPT 30 U/L (16-61); Albumin, Serum 2.8 g/dL (3.2-5.0); Alkaline Phosphatase 158 U/L (45-117); Anion Gap 6 (5-15); BUN 12 mg/dL (7-18); BUN/Creat Ratio 12.8 RATIO (10-20); Calcium,Total 8.1 mg/dL (8.5-10.1); Chloride 93 mmol/L (98-107); Creatinine, Serum 0.94 mg/dL (0.70-1.30); EST Glomerular Filtration Rate 88 mL/min (>60); Est Glom Filt Rate - Afr Amer 106 mL/min (>60); Estimated Creatinine Clearance 80.09 ml/min; Globulin 3.6 g/dL (2.2-4.2); Glucose 150 mg/dL (74-106); Magnesium 1.5 mg/dL (1.6-2.6); Phosphorus 2.6 mg/dL (2.5-4.9); Potassium 2.8 mmol/L (3.5-5.1); Protein, Total 6.4 g/dL (6.4-8.2); Sodium Level 130 mmol/L (136-145)
[2019-05-27 05:41] LABS: Lymphocyte 9 % (19-41); Monocyte 9 % (0-10); Neutrophil-Segmented 82 % (47-70); Total Cells Counted 100 (MANUAL DIFF)
[2019-05-27 05:43] LABS: Absolute Neutrophil Count 2.4 X10^3/uL (2.0-7.7); Anisocytosis 1+; Hypochromasia 1+; Neutrophil # 2.37 X10^3/uL (2.7-7.7); Platelet Estimate MOD DEC (ADEQ); Target Cells RARE
[2019-05-27 05:44] LABS: Absolute Lymphocyte Count 0.21 X10^3/uL (0.83-4.51); Lymphocyte # 0.21 X10^3/ul (4.0); Monocyte# 0.21 X10^3/uL
--- NOTE | 2019-05-27 07:36 | CASEMGMT ---
Patient has a Healthcare Power of [employer] and a Healthcare Living Will on file at [facility]. Alexandria BLANK MSW
[2019-05-27] MEDS: Lisinopril 5 MG Tablet PO (09:05)
[2019-05-27] MEDS: Metoprolol Tartrate 100 MG Tablet PO ×2 (09:05→21:03)
[2019-05-27] MEDS: Magnesium Oxide 400 MG Tablet PO (09:05)
[2019-05-27] MEDS: busPIRone 15 MG TABLET PO ×2 (09:05→21:03)
[2019-05-27] MEDS: predniSONE 10 MG Tablet 30 MG PO (09:05)
[2019-05-27] MEDS: Citalopram 40 MG TABLET PO (09:05)
[2019-05-27] MEDS: Multivitamins,Therapeutic Tablet 1 TABLET PO (09:06)
[2019-05-27] MEDS: Thiamine Hydrochloride 100 MG Tablet PO (09:06)
[2019-05-27] MEDS: Folic Acid 1 MG Tablet PO (09:06)
[2019-05-27] MEDS: busPIRone 5 MG Tablet PO ×2 (09:06→21:03)
[2019-05-27] MEDS: Na Biphos/Potassium Phosphate PACKET 1 PACKET PO (09:06)
[2019-05-27] MEDS: Pantoprazole Sodium 20 MG Tablet PO ×2 (09:08→21:04)
[2019-05-27] MEDS: Furosemide 40 MG/4 ML Vial IV (09:08)
[2019-05-27] MEDS: hydrOXYzine PAM 25 MG Capsule 50 MG PO (09:13)
--- NOTE | 2019-05-27 11:04 | PN_ITS ---
<Debbie Cantu - Last Filed: 05/27/19 11:35> Patient Problems: Active and Suspected Problems Hyponatremia (Acute) Subjective: Patient seen and examined. Denies current significant withdrawal symptoms. Patient discussed in length his history with alcohol abuse, depression and anxiety. He reports he rarely leaves his home due to severe anxiety. He is agreeable to inpatient treatment for alcohol abuse. - Physical Exam Vitals/I&O's: Vital Signs Temp Pulse Resp BP Pulse Ox 98.3 F 87 14 130/55 H 96 05/27/19 08:59 05/27/19 09:05 05/27/19 08:59 05/27/19 08:59 05/27/19 08:59 Oxygen Delivery Method Room Air Weight: 201 lb 4.513 oz Body Mass Index (BMI) 31.5 Finger Stick Blood Glucose 120 Intake and Output for Last 24 Hours 05/25/19 05/26/19 05/27/19 23:59 23:59 23:59 Intake Total 803.75 / 1043.75 1842.5 / 1842.5 763.75 / 763.75 Output Total 8800 / 8800 Balance 803.75 / -1356.25 -6957.5 / -6957.5 763.75 / 763.75 General: Alert, Oriented x3, Cooperative HEENT: Atraumatic, PERRLA, EOMI, Normocephalic Oral: Dry Mucosa Neck: Supple, No JVD, Negative Carotid Bruits Lungs: Clear to auscultation, Normal air movement Cardiovascular: Regular rate, Regular Rhythm, Normal S1, Normal S2, No murmurs Abdomen: Bowel Sounds Present, Soft, Non Tender, Non-Distended Extremities: No clubbing, No cyanosis, No edema, Capillary Refill Less than 3 Seconds Skin: No rashes, No breakdown Musculoskeletal: No Tenderness to Palpation of Joints or Extremities Neurological: Cranial nerves II-XII grossly intact, Neuro grossly intact Psych/Mental Status: Normal Affect, Appropriate Laboratory Results 05/26/19 19:10: Sodium 128 L, Potassium 3.2 L, Chloride 92 L, Carbon Dioxide 28.0, Anion Gap 8, BUN 14, Creatinine 1.01, Estim Creat Clear Calc 74.54, Est GFR (MDRD) Af Amer 97, Est GFR (MDRD) Non-Af 80, BUN/Creatinine Ratio 13.9, Glucose 146 H, Calcium 8.7 05/27/19 05:05: WBC 2.9 L, RBC 2.66 L, Hgb 7.5 L, Hct 23.2 L, MCV 87.2, MCH 28.2, MCHC 32.3, RDW Std Deviation 49.1 H, RDW Coeff of Donnie 15.4 H, Plt Count 94 L, MPV 9.5, Neut % (Auto) Not Reportable, Absolute Neuts (auto) 2.4, Absolute Lymphs (auto) 0.21 L, Total Counted 100, Neutrophils % (Manual) 82 H, Lymphocytes % (Manual) 9 L, Monocytes % (Manual) 9, Diff Path Review August, Platelet Estimate MOD DEC, Hypochromasia 1+, Anisocytosis 1+, Target Cells RARE 05/27/19 05:05: Sodium 130 L, Potassium 2.8 L, Chloride 93 L, Carbon Dioxide 31.0, Anion Gap 6, BUN 12, Creatinine 0.94, Estim Creat Clear Calc 80.09, Est GFR (MDRD) Af Amer 106, Est GFR (MDRD) Non-Af 88, BUN/Creatinine Ratio 12.8, Glucose 150 H, Calcium 8.1 L, Phosphorus 2.6, Magnesium 1.5 L, Total Bilirubin 0.70, AST 41 H, ALT 30, Alkaline Phosphatase 158 H, Total Protein 6.4, Albumin 2.8 L, Globulin 3.6, Albumin/Globulin Ratio 0.8 L Current Medications Buspirone HCl (Buspar) 5 mg PO BID [facility] Last Admin: 05/27/19 09:06 Dose: 5 mg Documented by: Buspirone HCl (Buspar) 15 mg PO BID [facility] Last Admin: 05/27/19 09:05 Dose: 15 mg Documented by: Chlordiazepoxide (Librium) 50 mg PO Q8H [facility]; Taper Stop: 05/28/19 19:59 Last Admin: 05/27/19 03:33 Dose: 50 mg Documented by: Citalopram Hydrobromide (Celexa) 40 mg PO DAILY [facility] Last Admin: 05/27/19 09:05 Dose: 40 mg Documented by: Dicyclomine HCl (Bentyl) 20 mg PO Q6H PRN PRN PRN Reason: abdominal discomfort Last Admin: 05/26/19 22:42 Dose: 20 mg Documented by: [facility] ([facility]) [facility] Stop: 05/28/19 08:01 Last Admin: 05/27/19 09:06 Dose: 1 mg Documented by: Furosemide (Lasix) 40 mg IV BID@1000,1800 [facility] Last Admin: 05/27/19 09:08 Dose: 40 mg Documented by: Glucagon () 1 mg IM .X1 PRN PRN Reason: Hypoglycemia Hydroxyzine Pamoate (Vistaril Pamoate Capsule) 50 mg PO Q6H PRN PRN PRN Reason: Mild Anxiety (score 1/3) Last Admin: 05/27/19 09:13 Dose: 50 mg Documented by: Dextrose/Sodium Chloride (Dextrose 5%/0.9% Nacl) 1,000 mls @ 75 mls/hr IV .[id number] [facility] Last Infusion: 05/27/19 11:03 Dose: 0 mls/hr Documented by: Lisinopril (Zestril) 5 mg PO DAILY [facility] Last Admin: 05/27/19 09:05 Dose: 5 mg Documented by: Lorazepam (Ativan) 1 mg IV Q2H PRN PRN PRN Reason: Severe Anxiety Magnesium Oxide (Mag-Ox 400) 400 mg PO DAILY [facility] Last Admin: 05/27/19 09:05 Dose: 400 mg Documented by: Methocarbamol (Methocarbamol) 750 mg PO Q6H PRN PRN PRN Reason: Muscle Aches Last Admin: 05/25/19 23:59 Dose: 750 mg Documented by: Metoprolol Tartrate (Lopressor (Beta Olga)) 100 mg PO BID [facility] Last Admin: 05/27/19 09:05 Dose: 100 mg Documented by: Multivitamins (Multivitamin) [facility] Last Admin: 05/27/19 09:06 Dose: 1 tablet Documented by: Nicotine (Nicoderm Cq (Pbkc)) 21 mg TRANSDERM. DAILY [facility] Last Admin: 05/27/19 09:06 Dose: 21 mg Documented by: Nitroglycerin (Nitrostat) 0.4 mg SUBLINGUAL Q5M PRN PRN Reason: CARDIAC/CHEST PAIN Ondansetron HCl (Zofran) 4 mg IV Q8H PRN PRN PRN Reason: NAUSEA/VOMITING Pantoprazole Sodium (Protonix) 20 mg PO BID [facility] Last Admin: 05/27/19 09:08 Dose: 20 mg Documented by: Prednisone () 30 mg PO DAILY@0800 [facility] Stop: 05/29/19 08:01 Last Admin: 05/27/19 09:05 Dose: 30 mg Documented by: Prednisone () 20 mg PO DAILY@0800 [facility] Stop: 06/01/19 08:01 Prednisone () 10 mg PO DAILY@0800 [facility] Stop: 06/04/19 08:01 Sodium Chloride () 10 - 40 ml IV UD PRN PRN Reason: SALINE FLUSH Last Admin: 05/26/19 17:37 Dose: 10 ml Documented by: Thiamine HCl (Vitamin B1) 100 mg PO DAILYCM [facility] Stop: 05/28/19 08:01 Last Admin: 05/27/19 09:06 Dose: 100 mg Documented by: Tizanidine HCl (Zanaflex) 4 mg PO TID PRN PRN PRN Reason: SPASMS Medical Necessity - Tobacco Use Smoking Status: Current every day smoker Tobacco Use: Cigarettes Assessment/Plan All Active Problems Hyponatremia (Acute) Elevated troponin (Acute) Chest pain (Acute) Shortness of breath (Acute) COPD exacerbation (Acute) GI bleed (Acute) 1. Hyponatremia secondary to beer potomania-improving. Continue fluid restriction, Lasix. 2. Chronic alcoholism-encouraged inpatient treatment, patient agreeable. Social work involved. Continue CIWA, Librium taper. Folic acid, thiamine and multivitamin supplementation. 3. Indeterminate troponin-recent normal stress test 05/24/2019. Denies chest pain. 4. Chronic normocytic anemia/pancytopenia-history of GI bleed. Check iron studies. Trend CBC. 5. Anxiety/depression/Agoraphobia-continue Celexa, BuSpar regimen. Not adequ ately treated. 6. History of CVA-statin and Plavix on hold due to anemia and abnormal LFTs. 7. Chronic COPD with recent exacerbation-continue prednisone taper as previously prescribed. As needed albuterol aerosol. 8. Hypertension-stable, continue lisinopril, metoprolol regimen. DVT prophylaxis- SCDs Discharge planning: Possible discharge to inpatient treatment facility for alcohol abuse pending acceptance and withdrawal protocol completion. This patient was seen by ROSSANA Mcintosh under the supervision of Dr. Gant. <Juliana Gants F - Last Filed: 05/27/19 15:58> - Physical Exam Vitals/I&O's: Vital Signs Temp Pulse Resp BP Pulse Ox 98.3 F 87 14 130/55 H 96 05/27/19 08:59 05/27/19 09:05 05/27/19 08:59 05/27/19 08:59 05/27/19 08:59 Oxygen Delivery Method Room Air Weight: 201 lb 4.513 oz Body Mass Index (BMI) 31.5 Finger Stick Blood Glucose 120 Intake and Output for Last 24 Hours 05/25/19 05/26/19 05/27/19 23:59 23:59 23:59 Intake Total 803.75 / 1043.75 1842.5 / 1842.5 936.50 / 936.50 Output Total 8800 / 8800 450 / 450 Balance 803.75 / -1356.25 -6957.5 / -6957.5 486.50 / 486.50 Laboratory Results 05/26/19 19:10: Sodium 128 L, Potassium 3.2 L, Chloride 92 L, Carbon Dioxide 28.0, Anion Gap 8, BUN 14, Creatinine 1.01, Estim Creat Clear Calc 74.54, Est GFR (MDRD) Af Amer 97, Est GFR (MDRD) Non-Af 80, BUN/Creatinine Ratio 13.9, Glucose 146 H, Calcium 8.7 05/27/19 05:05: WBC 2.9 L, RBC 2.66 L, Hgb 7.5 L, Hct 23.2 L, MCV 87.2, MCH 28.2, MCHC 32.3, RDW Std Deviation 49.1 H, RDW Coeff of Donnie 15.4 H, Plt Count 94 L, MPV 9.5, Neut % (Auto) Not Reportable, Absolute Neuts (auto) 2.4, Absolute Lymphs (auto) 0.21 L, Total Counted 100, Neutrophils % (Manual) 82 H, Lymphocytes % (Manual) 9 L, Monocytes % (Manual) 9, Diff Path Review Reviewed, Platelet Estimate MOD DEC, Hypochromasia 1+, Anisocytosis 1+, Target Cells RARE 05/27/19 05:05: Sodium 130 L, Potassium 2.8 L, Chloride 93 L, Carbon Dioxide 31.0, Anion Gap 6, BUN 12, Creatinine 0.94, Estim Creat Clear Calc 80.09, Est GFR (MDRD) Af Amer 106, Est GFR (MDRD) Non-Af 88, BUN/Creatinine Ratio 12.8, Glucose 150 H, Calcium 8.1 L, Phosphorus 2.6, Magnesium 1.5 L, Total Bilirubin 0.70, AST 41 H, ALT 30, Alkaline Phosphatase 158 H, Total Protein 6.4, Albumin 2.8 L, Globulin 3.6, Albumin/Globulin Ratio 0.8 L 05/27/19 05:05: Vitamin B12 469 05/27/19 05:05: Iron 10 L, TIBC 404, Iron Saturation 2.5 L, Ferritin 65, Folate 37.90 Current Medications Acetaminophen (Tylenol) 650 mg PO Q6H PRN PRN PRN Reason: Pain Score 1-1010 Last Admin: 05/27/19 12:19 Dose: 650 mg Documented by: Buspirone HCl (Buspar) 5 mg PO BID [facility] Last Admin: 05/27/19 09:06 Dose: 5 mg Documented by: Buspirone HCl (Buspar) 15 mg PO BID [facility] Last Admin: 05/27/19 09:05 Dose: 15 mg Documented by: Chlordiazepoxide (Librium) 50 mg PO Q8H [facility]; Taper Stop: 05/28/19 19:59 Last Admin: 05/27/19 12:21 Dose: 50 mg Documented by: Citalopram Hydrobromide (Celexa) 40 mg PO DAILY [facility] Last Admin: 05/27/19 09:05 Dose: 40 mg Documented by: Dicyclomine HCl (Bentyl) 20 mg PO Q6H PRN PRN PRN Reason: abdominal discomfort Last Admin: 05/26/19 22:42 Dose: 20 mg Documented by: Folic Acid (Folic Acid) [facility] Stop: 05/28/19 08:01 Last Admin: 05/27/19 09:06 Dose: 1 mg Documented by: Glucagon () 1 mg IM .X1 PRN PRN Reason: Hypoglycemia Hydroxyzine Pamoate (Vistaril Pamoate Capsule) 50 mg PO Q6H PRN PRN PRN Reason: Mild Anxiety (score 1/3) Last Admin: 05/27/19 09:13 Dose: 50 mg Documented by: Dextrose/Sodium Chloride (Dextrose 5%/0.9% Nacl) 1,000 mls @ 75 mls/hr IV .[id number] [facility] Last Admin: 05/27/19 12:21 Dose: 75 mls/hr Documented by: Lisinopril (Zestril) 5 mg PO DAILY [facility] Last Admin: 05/27/19 09:05 Dose: 5 mg Documented by: Lorazepam (Ativan) 1 mg IV Q2H PRN PRN PRN Reason: Severe Anxiety Magnesium Oxide (Mag-Ox 400) 400 mg PO DAILY [facility] Last Admin: 05/27/19 09:05 Dose: 400 mg Documented by: Methocarbamol (Methocarbamol) 750 mg PO Q6H PRN PRN PRN Reason: Muscle Aches Last Admin: 05/25/19 23:59 Dose: 750 mg Documented by: Metoprolol Tartrate (Lopressor (Beta Olga)) 100 mg PO BID [facility] Last Admin: 05/27/19 09:05 Dose: 100 mg Documented by: Multivitamins (Multivitamin) [facility] Last Admin: 05/27/19 09:06 Dose: 1 tablet Documented by: Nicotine (Nicoderm Cq (Pbkc)) 21 mg TRANSDERM. DAILY [facility] Last Admin: 05/27/19 09:06 Dose: 21 mg Documented by: Nitroglycerin (Nitrostat) 0.4 mg SUBLINGUAL Q5M PRN PRN Reason: CARDIAC/CHEST PAIN Ondansetron HCl (Zofran) 4 mg IV Q8H PRN PRN PRN Reason: NAUSEA/VOMITING Pantoprazole Sodium (Protonix) 20 mg PO BID [facility] Last Admin: 05/27/19 09:08 Dose: 20 mg Documented by: Potassium Chloride (K-Dur) 40 [facility]q [facility] Prednisone () 30 mg PO DAILY@0800 [facility] Stop: 05/29/19 08:01 Last Admin: 05/27/19 09:05 Dose: 30 mg Documented by: Prednisone () 20 mg PO DAILY@0800 [facility] Stop: 06/01/19 08:01 Prednisone () 10 mg PO DAILY@0800 [facility] Stop: 06/04/19 08:01 Sodium Chloride () 10 - 40 ml IV UD PRN PRN Reason: SALINE FLUSH Last Admin: 02/12/20 17:37 Dose: 10 ml Documented by: Thiamine HCl (Vitamin B1) 100 [facility] Stop: 05/28/19 08:01 Last Admin: 05/27/19 09:06 Dose: 100 mg Documented by: Tizanidine HCl (Zanaflex) 4 mg PO TID PRN PRN PRN Reason: SPASMS Code Visit Addendum: Dr. Gant I personally examined the patient and reviewed the chart. I agree with the above. 58-year-old male with a history of alcoholism presents to the hospital with hyponatremia and significant global weakness. He states that initially he had no desire to quit drinking however when he told him that he would not have improvement in any of his symptoms if he continued to drink as we would have extreme difficulty getting his hyponatremia under control, he expressed a desire to go to inpatient rehab at [facility] if possible. He is currently on alcohol withdrawal protocol and his sodium is getting better with IV fluids. Since his sodium is getting better with IV fluids he likely had hypovolemic hyponatremia. Therefore his Lasix were discontinued. He will need to follow-up as an outpatient with his PCP, appreciate nephrology recommendations. Inpatient E&M: 10749 Subs Hosp L2
[2019-05-27 12:05] LABS: Vitamin B12 469 pg/mL (211-911)
[2019-05-27 12:07] LABS: Ferritin 65 ng/mL (26-388); Iron 10 ug/dL (65-175); Iron Binding Capacity,Total 404 ug/dL (250-450); PERCENT IRON SATURATION 2.5 % (15.0-55.0)
[2019-05-27] MEDS: Acetaminophen 325 MG Tablet 650 MG PO ×2 (12:19→21:15)
[2019-05-27] MEDS: Dextrose 5%/0.9% NaCl 1,000 ML 75 ML IV (12:21)
--- NOTE | 2019-05-27 13:07 | PCM.PN.BLA ---
Progress Note notes reviewed. Sodium improving on D5NS. VSS, AF Will sign off.
--- NOTE | 2019-05-27 13:21 | CASEMGMT ---
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 Patient told SW he is not completely committed yet. SW asked him if he would like to go to inpatient alcohol rehab from the hospital. He told SW, No, I have to get home and care for my linda and take care of some other things. SW told him SW can connect him with [facility] and they can assess him and determine appropriate level of treatment for him. He said he would think about it. He agreed to complete a Medicaid application with SW. SW completed application and faxed to [facility]. Palliative Care came and talked with patient, but he wanted to think about it. SW then received a call from [facility] in [place] and they said if he went with [facility] through [facility] would not cover it and he would have to use his Medicare. However, he does not have a community physician, just a [facility]. SW will check back with patient again regarding his plan for ETOH treatment. [place] BLANK MSW
--- NOTE | 2019-05-27 14:26 | CASEMGMT ---
CM Readmission chart review: Pt initially admitted 05/22-05/24/19 for hyponatremia/COPD exac and ETOH abuse. Pt's hemoglobin did drop prior to discharge but pt declines blood transfusion and wanted to be discharged at that time. Pt then returned to [facility] ED on 05/25/19 with c/o weakness and was readmitted for Hyponatremia d/t hypervolemic hypotonic hyponatremia from fluid overload from acute HF, according to the H&P. See previous CM assessment from April 2019 admit and readmission note from 05/24/19. [facility] did see pt during this visit but [facility]. SW following for ETOH resources but pt is not sure that he wants to quit at this time. Per Dr. Vo(nephro), there is nothing she can do for pt unless he is willing to quit drinking ETOH and pt is aware of this at this time. She also stated for the pt to consider hospice with continued ETOH abuse. CM to follow for any further discharge planning/needs. Ramon VALENZUELA CM
[2019-05-27 14:27] LABS: Pathologist Review Reviewed
[2019-05-28] VITALS (12 sets, daily range): BP systolic 130–160; BP diastolic 59–84; PULSE 85–96; RESP 16–22; TEMP 36.5–37.1; O2SAT 95–98
[2019-05-28] MEDS: guaiFENesin 10 ML UDC (200MG/10ML) PO (00:09)
[2019-05-28] MEDS: Dextrose 5%/0.9% NaCl 1,000 ML 75 ML IV (02:11)
[2019-05-28] MEDS: Albuterol 2.5 MG/3 ML VIAL.NEB. INHALATION (04:02)
[2019-05-28] MEDS: 0.9% Saline Lock 10 ML Syringe IV (04:27)
[2019-05-28] MEDS: LORazepam 2 MG/ML Syringe 1 MG IV ×4 (04:27→19:18)
--- NOTE | 2019-05-28 04:55 | RAD_ITS ---
HISTORY: COUGH HYPONATREMIA ADDITIONAL HISTORY: None provided. TECHNIQUE: Frontal chest radiograph. Number of images including paperwork: 1 COMPARISON: 05/22/2019 FINDINGS: LUNGS AND PLEURA: Low lung volumes. No dense consolidation. No sizable pleural effusion. CARDIAC SILHOUETTE: Stable. MEDIASTINUM AND ETHEL: Stable. UPPER ABDOMEN: Unremarkable. SKELETON AND SOFT TISSUES: No acute findings. OTHER DEVICES AND HARDWARE: Vascular stent in the right upper chest. RAD/Chest 1 View (Portable) IMPRESSION: No acute findings on this portable exam. Follow-up as clinically indicated. at 0528 Reported and signed by: Sanaz Fernandez MD Electronically Signed: Sanaz Fernandez MD at 5:28 EST Tel , Service support ,
[2019-05-28 05:46] LABS: Hematocrit 26.8 % (40-54); Hemoglobin 8.2 g/dL (13.0-16.5); Mean Corp Hgb Conc 30.6 g/dL (32-36); Mean Corpuscular Hgb 27.6 pg (27.0-32.0); Mean Corpuscular Volume 90.2 fL (80-94); Mean Platelet Vol. 9.7 fl (6.2-12.0); Platelet Count 123 K/mm3 (150-450); RBC Distribution Width SD 52.7 fl (35.1-43.9); Red Blood Count 2.97 M/mm3 (4.6-6.2)
[2019-05-28 06:02] LABS: Anion Gap 4 (5-15); BUN 13 mg/dL (7-18); BUN/Creat Ratio 12.3 RATIO (10-20); Calcium,Total 8.8 mg/dL (8.5-10.1); Chloride 100 mmol/L (98-107); Creatinine, Serum 1.06 mg/dL (0.70-1.30); EST Glomerular Filtration Rate 76 mL/min (>60); Est Glom Filt Rate - Afr Amer 92 mL/min (>60); Estimated Creatinine Clearance 71.02 ml/min; Glucose 110 mg/dL (74-106); Potassium 3.6 mmol/L (3.5-5.1); Sodium Level 135 mmol/L (136-145)
[2019-05-28] MEDS: busPIRone 15 MG TABLET PO ×2 (09:33→22:42)
[2019-05-28] MEDS: busPIRone 5 MG Tablet PO ×2 (09:33→22:42)
[2019-05-28] MEDS: Lisinopril 5 MG Tablet PO (09:34)
[2019-05-28] MEDS: Citalopram 40 MG TABLET PO (09:34)
[2019-05-28] MEDS: Metoprolol Tartrate 100 MG Tablet PO ×2 (09:37→22:42)
[2019-05-28] MEDS: Folic Acid 1 MG Tablet PO (09:38)
[2019-05-28] MEDS: predniSONE 10 MG Tablet 30 MG PO (09:39)
[2019-05-28] MEDS: Pantoprazole Sodium 20 MG Tablet PO ×2 (09:40→22:42)
[2019-05-28] MEDS: Thiamine Hydrochloride 100 MG Tablet PO (09:40)
[2019-05-28] MEDS: Magnesium Oxide 400 MG Tablet PO (09:40)
[2019-05-28] MEDS: Multivitamins,Therapeutic Tablet 1 TABLET PO (09:40)
[2019-05-28] MEDS: Phenobarbital 32.4 MG Tablet 64.8 MG PO ×4 (09:54→22:42)
[2019-05-28] MEDS: Furosemide 40 MG Tablet PO ×2 (09:57→17:08)
--- NOTE | 2019-05-28 12:10 | PCM.PROGNOTE ---
<Debbie Cantu - Last Filed: 05/28/19 12:21> Patient Problems: Active and Suspected Problems Hyponatremia (Acute) Subjective: Patient seen and examined. Per nursing report, patient having increased anxiety, agitation. CIWA worsening. Upon assessment, patient heavily sleeping. - Physical Exam Vitals/I&O's: Vital Signs Temp Pulse Resp BP Pulse Ox 98.8 F 96 18 130/73 H 95 05/28/19 08:15 05/28/19 09:37 05/28/19 08:15 05/28/19 08:15 05/28/19 08:15 Oxygen Flow Rate (L/min) 2 Oxygen Delivery Method Nasal Cannula Weight: 201 lb 4.513 oz Body Mass Index (BMI) 31.5 Finger Stick Blood Glucose 120 Intake and Output for Last 24 Hours 05/26/19 05/27/19 05/28/19 23:59 23:59 23:59 Intake Total 1842.5 / 1842.5 1664.00 / 1664.00 923.75 / 923.75 Output Total 8800 / 8800 550 / 550 153 / 153 Balance -6957.5 / -6957.5 1114.00 / 1114.00 770.75 / 770.75 General: - - Drowsy HEENT: Atraumatic, PERRLA, EOMI, Normocephalic Oral: Dry Mucosa Neck: Supple, No JVD, Negative Carotid Bruits Lungs: Diminished, - - Coarse breath sounds throughout Cardiovascular: Regular rate, Regular Rhythm, Normal S1, Normal S2, No murmurs Abdomen: Bowel Sounds Present, Soft, Non Tender, Non-Distended Extremities: No clubbing, No cyanosis, No edema, Capillary Refill Less than 3 Seconds Skin: No rashes, No breakdown Musculoskeletal: No Tenderness to Palpation of Joints or Extremities Neurological: Cranial nerves II-XII grossly intact, Neuro grossly intact Psych/Mental Status: Anxious, Impulsive Laboratory Results 05/27/19 05:05: Diff Path Review Reviewed 05/28/19 05:15: WBC 6.0, RBC 2.97 L, Hgb 8.2 L, Hct 26.8 L, MCV 90.2, MCH 27.6, MCHC 30.6 L, RDW Std Deviation 52.7 H, RDW Coeff of Donnie 16.0 H, Plt Count 123 L, MPV 9.7 05/28/19 05:15: Sodium 135 L, Potassium 3.6, Chloride 100, Carbon Dioxide 31.0, Anion Gap 4 L, BUN 13, Creatinine 1.06, Estim Creat Clear Calc 71.02, Est GFR (MDRD) Af Amer 92, Est GFR (MDRD) Non-Af 76, BUN/Creatinine Ratio 12.3, Glucose 110 H, Calcium 8.8 Current Medications Acetaminophen (Tylenol) 650 mg PO Q6H PRN PRN PRN Reason: Pain Score 1-10/10 Last Admin: 05/27/19 21:15 Dose: 650 mg Documented by: Albuterol Sulfate (Ventolin Aerosols) 2.5 mg INHALATION Q2H PRN PRN PRN Reason: dyspnea, wheezing Last Admin: 05/28/19 04:02 Dose: 2.5 mg Documented by: Buspirone HCl (Buspar) 5 mg PO BID [facility] Last Admin: 05/28/19 09:33 Dose: 5 mg Documented by: Buspirone HCl (Buspar) 15 mg PO BID [facility] Last Admin: 05/28/19 09:33 Dose: 15 mg Documented by: Citalopram Hydrobromide (Celexa) 40 mg PO DAILY [facility] Last Admin: 05/28/19 09:34 Dose: 40 mg Documented by: Dicyclomine HCl (Bentyl) 20 mg PO Q6H PRN PRN PRN Reason: abdominal discomfort Last Admin: 05/26/19 22:42 Dose: 20 mg Documented by: Furosemide (Lasix) 40 mg PO BID@1000,1800 [facility] Last Admin: 05/28/19 09:57 Dose: 40 mg Documented by: Glucagon () 1 mg IM .X1 PRN PRN Reason: Hypoglycemia Guaifenesin (Robitussin) 10 ml PO Q4H PRN PRN PRN Reason: COUGH Last Admin: 05/28/19 00:09 Dose: 10 ml Documented by: Guaifenesin (Mucinex) 600 mg PO BID [facility] Last Admin: 05/28/19 12:04 Dose: Not Given Documented by: Hydroxyzine Pamoate (Vistaril Pamoate Capsule) 50 mg PO Q6H PRN PRN PRN Reason: Mild Anxiety (score 1/3) Last Admin: 05/27/19 09:13 Dose: 50 mg Documented by: Lisinopril (Zestril) 5 mg PO DAILY [facility] Last Admin: 05/28/19 09:34 Dose: 5 mg Documented by: Lorazepam (Ativan) 1 mg IV Q2H PRN PRN PRN Reason: Severe Anxiety Last Admin: 05/28/19 08:23 Dose: 1 mg Documented by: Magnesium Oxide (Mag-Ox 400) 400 mg PO DAILY [facility] Last Admin: 05/28/19 09:40 Dose: 400 mg Documented by: Methocarbamol (Methocarbamol) 750 mg PO Q6H PRN PRN PRN Reason: Muscle Aches Last Admin: 05/25/19 23:59 Dose: 750 mg Documented by: Metoprolol Tartrate (Lopressor (Beta Olga)) 100 mg PO BID [facility] Last Admin: 05/28/19 09:37 Dose: 100 mg Documented by: [facility] Last Admin: 05/28/19 09:40 Dose: 1 tablet Documented by: Nicotine (Nicoderm Cq (Pbkc)) 21 mg TRANSDERM. DAILY [facility] Last Admin: 05/28/19 09:42 Dose: 21 mg Documented by: Nitroglycerin (Nitrostat) 0.4 mg SUBLINGUAL Q5M PRN PRN Reason: CARDIAC/CHEST PAIN Ondansetron HCl (Zofran) 4 mg IV Q8H PRN PRN PRN Reason: NAUSEA/VOMITING Pantoprazole Sodium (Protonix) 20 mg PO BID [facility] Last Admin: 05/28/19 09:40 Dose: 20 mg Documented by: Phenobarbital (Phenobarbital) 64.8 mg PO 4X/DAY [facility]; Taper Stop: 06/01/19 09:59 Last Admin: 05/28/19 09:54 Dose: 64.8 mg Documented by: Potassium Chlor[facility] (K-Dur) [facility] Last Admin: 05/28/19 12:04 Dose: Not Given Documented by: Prednisone () 30 mg PO DAILY@0800 [facility] Stop: 05/29/19 08:01 Last Admin: 05/28/19 09:39 Dose: 30 mg Documented by: Prednisone () 20 mg PO DAILY@0800 [facility] Stop: 06/01/19 08:01 Prednisone () 10 mg PO DAILY@0800 [facility] Stop: 06/04/19 08:01 Sodium Chloride () 10 - 40 ml IV UD PRN PRN Reason: SALINE FLUSH Last Admin: 05/28/19 04:27 Dose: 20 ml Documented by: Tizanidine HCl (Zanaflex) 4 mg PO TID PRN PRN PRN Reason: SPASMS Medical Necessity - Tobacco Use Smoking Status: Current every day smoker Tobacco Use: Cigarettes Assessment/Plan All Active Problems Hyponatremia (Acute) Elevated troponin (Acute) Chest pain (Acute) Shortness of breath (Acute) COPD exacerbation (Acute) GI bleed (Acute) 1. Hyponatremia secondary to beer potomania-improving. Continue fluid restriction, IV Lasix. 2. Chronic alcoholism-encouraged inpatient treatment, patient agreeable. Social work involved. Continue CIWA. Given increased agitation and anxiety, discontinued Librium taper and transition to phenobarbital taper. Folic acid, thiamine and multivitamin supplementation. 3. Indeterminate troponin-recent normal stress test 05/24/2019. Denies chest pain. 4. Chronic normocytic anemia/pancytopenia-history of GI bleed. Check iron studies. Trend CBC. 5. Anxiety/depression/Agoraphobia-continue Celexa, BuSpar regimen. Not adequately treated. 6. History of CVA-statin and Plavix on hold due to anemia and abnormal LFTs. 7. Chronic COPD with recent exacerbation-continue prednisone taper as previously prescribed. As needed albuterol aerosol. 8. Hypertension-stable, continue lisinopril, metoprolol regimen. DVT prophylaxis- SCDs Discharge planning: Possible discharge to inpatient treatment facility for alcohol abuse pending acceptance and withdrawal protocol completion. This patient was seen by ROSSANA Mcintosh under the supervision of Dr. Jordan. <Shyann Jordan - Last Filed: 05/28/19 14:51> - Physical Exam Vitals/I&O's: Vital Signs Temp Pulse Resp BP Pulse Ox 98.2 F 90 20 H 131/59 H 98 05/28/19 14:04 05/28/19 14:04 05/28/19 14:04 05/28/19 14:04 05/28/19 14:04 Oxygen Flow Rate (L/min) 2 Oxygen Delivery Method Nasal Cannula Weight: 201 lb 4.513 oz Body Mass Index (BMI) 31.5 Finger Stick Blood Glucose 120 Intake and Output for Last 24 Hours 05/26/19 05/27/19 05/28/19 23:59 23:59 23:59 Intake Total 1842.5 / 1842.5 1664.00 / 1664.00 923.75 / 923.75 Output Total 8800 / 8800 550 / 550 153 / 153 Balance -6957.5 / -6957.5 1114.00 / 1114.00 770.75 / 770.75 Laboratory Results 05/28/19 05:15: WBC 6.0, RBC 2.97 L, Hgb 8.2 L, Hct 26.8 L, MCV 90.2, MCH 27.6, MCHC 30.6 L, RDW Std Deviation 52.7 H, RDW Coeff of Donnie 16.0 H, Plt Count 123 L, MPV 9.7 05/28/19 05:15: Sodium 135 L, Potassium 3.6, Chloride 100, Carbon Dioxide 31.0, Anion Gap 4 L, BUN 13, Creatinine 1.06, Estim Creat Clear Calc 71.02, Est GFR (MDRD) Af Amer 92, Est GFR (MDRD) Non-Af 76, BUN/Creatinine Ratio 12.3, Glucose 110 H, Calcium 8.8 Current Medications Acetaminophen (Tylenol) 650 mg PO Q6H PRN PRN PRN Reason: Pain Score 1-10/10 Last Admin: 05/27/19 21:15 Dose: 650 mg Documented by: Albuterol Sulfate (Ventolin Aerosols) 2.5 mg INHALATION Q2H PRN PRN PRN Reason: dyspnea, wheezing Last Admin: 05/28/19 04:02 Dose: 2.5 mg Documented by: Buspirone HCl (Buspar) 5 mg PO BID [facility] Last Admin: 05/28/19 09:33 Dose: 5 mg Documented by: Buspirone HCl (Buspar) 15 mg PO BID [facility] Last Admin: 05/28/19 09:33 Dose: 15 mg Documented by: Citalopram Hydrobromide (Celexa) 40 mg PO DAILY [facility] Last Admin: 05/28/19 09:34 Dose: 40 mg Documented by: Dicyclomine HCl (Bentyl) 20 mg PO Q6H PRN PRN PRN Reason: abdominal discomfort Last Admin: 05/26/19 22:42 Dose: 20 mg Documented by: Furosemide (Lasix) 40 mg PO BID@1000,1800 [facility] Last Admin: 05/28/19 09:57 Dose: 40 mg Documented by: Glucagon () 1 mg IM .X1 PRN PRN Reason: Hypoglycemia Guaifenesin (Robitussin) 10 ml PO Q4H PRN PRN PRN Reason: COUGH Last Admin: 05/28/19 00:09 Dose: 10 ml Documented by: Guaifenesin (Mucinex) 600 mg PO BID [facility] Last Admin: 05/28/19 12:04 Dose: Not Given Documented by: Hydroxyzine Pamoate (Vistaril Pamoate Capsule) 50 mg PO Q6H PRN PRN PRN Reason: Mild Anxiety (score 1/3) Last Admin: 05/27/19 09:13 Dose: 50 mg Documented by: Lisinopril (Zestril) 5 mg PO DAILY [facility] Last Admin: 05/28/19 09:34 Dose: 5 mg Documented by: Lorazepam (Ativan) 1 mg IV Q2H PRN PRN PRN Reason: Severe Anxiety Last Admin: 05/28/19 14:24 Dose: 1 mg Documented by: Magnesium Oxide (Mag-Ox 400) 400 mg PO DAILY [facility] Last Admin: 05/28/19 09:40 Dose: 400 mg Documented by: Methocarbamol (Methocarbamol) 750 mg PO Q6H PRN PRN PRN Reason: Muscle Aches Last Admin: 05/25/19 23:59 Dose: 750 mg Documented by: Metoprolol Tartrate (Lopressor (Beta Olga)) 100 mg PO BID [facility] Last Admin: 05/28/19 09:37 Dose: 100 mg Documented by: [facility]it[facility] ([facility]amin) [facility] Last Admin: 05/28/19 09:40 Dose: 1 tablet Documented by: Nicotine (Nicoderm Cq (Pbkc)) 21 mg TRANSDERM. DAILY [facility] Last Admin: 05/28/19 09:42 Dose: 21 mg Documented by: Nitroglycerin (Nitrostat) 0.4 mg SUBLINGUAL Q5M PRN PRN Reason: CARDIAC/CHEST PAIN Ondansetron HCl (Zofran) 4 mg IV Q8H PRN PRN PRN Reason: NAUSEA/VOMITING Pantoprazole Sodium (Protonix) 20 mg PO BID [facility] Last Admin: 05/28/19 09:40 Dose: 20 mg Documented by: Phenobarbital (Phenobarbital) 64.8 mg PO 4X/DAY [facility]; Taper Stop: 06/01/19 09:59 Last Admin: 05/28/19 13:55 Dose: 64.8 mg Documented by: Potassium Chloride (K-Dur) 40 meq PO BIDCM [facility] Last Admin: 05/28/19 12:04 Dose: Not Given Documented by: Prednisone () 30 mg PO DAILY@0800 [facility] Stop: 05/29/19 08:01 Last Admin: 05/28/19 09:39 Dose: 30 mg Documented by: Prednisone () 20 mg PO DAILY@0800 [facility] Stop: 06/01/19 08:01 Prednisone () 10 mg PO DAILY@0800 [facility] Stop: 06/04/19 08:01 Sodium Chloride () 10 - 40 ml IV UD PRN PRN Reason: SALINE FLUSH Last Admin: 05/28/19 04:27 Dose: 20 ml Documented by: Tizanidine HCl (Zanaflex) 4 mg PO TID PRN PRN PRN Reason: SPASMS Assessment/Plan Patient seen by Debbie TRACY under my supervision Patient was admitted o/a of hyponatremia. He was initially thought to be due to be put to rio but BNP was also elevated at 2788. Echo done on previous admission did show stage III diastolic dysfunction and so hyponatremia was also due to acute on chronic heart failure with preserved ejection fraction. Initially received fluids but subsequently started on IV Lasix. Patient seen and examined. He was sleeping at time of review but subsequently became agitated with CIWA score of 19. He remains on 2 L of oxygen and has a cough which is nonproductive. He denies any fever chills and admitted to mild shortness of breath. He had any chest pain or palpitations, dizziness, diarrhea or vomiting. Very systems otherwise negative. Labs and vitals reviewed. Sodium is up to 135 today. Hemoglobin is 8.2. o/e: Vital Signs Height 5 ft 7 in Weight: 201 lb 4.513 oz Weight in Pounds 201.3 lbs Pulse Ox 98 Temperature 98.2 F Pulse Rate 90 Respiratory Rate 20 Blood Pressure 131/59 Blood Pressure Position Semi-Fowlers General: - -alert but mildly Drowsy HEENT: Atraumatic, PERRLA, EOMI, Normocephalic Oral: Dry Mucosa Neck: Supple, No JVD, Negative Carotid Bruits Lungs: decreased breath sounds bibasally, no wheezes or crackles. Cardiovascular: Regular rate, Regular Rhythm, Normal S1, Normal S2, No murmurs Abdomen: Bowel Sounds Present, Soft, Non Tender, Non-Distended Extremities: No clubbing, No cyanosis, No edema, Capillary Refill Less than 3 Seconds Skin: No rashes, No breakdown Musculoskeletal: No Tenderness to Palpation of Joints or Extremities Neurological: Cranial nerves II-XII grossly intact, Neuro grossly intact Psych/Mental Status: drowsy Plan is to stop IV D5 normal saline and put patient back on Lasix. We will stop Librium and start patient on phenobarbital taper as it appears he is going into active withdrawal with CIWA score of 19. This x-ray done today showed no acute findings. He is in negative balance by 4.26 L since admission. Per case management note, patient is not sure that he wants to quit at this time patient has also told other providers but all he wants to do is drink to quit. Plan is for discharge home after he goes through acute withdrawal from alcohol. SCDs for DVT prophylaxis as he had positive occult blood in his stool on 04/25/2019 and has not been worked up for this. Follow-up with general surgery on outpatient basis for work-up for positive occult blood in stool. Rest as per Debbie Cantu NP-C's note, which I have reviewed and endorsed. Code Visit Inpatient E&M: 58317 Subs Hosp L3
[2019-05-28] MEDS: guaiFENesin 600 MG Tablet PO (22:42)
[2019-05-29] VITALS (13 sets, daily range): BP systolic 125–168; BP diastolic 22–100; PULSE 75–105; RESP 18–20; TEMP 36.8–37.3; O2SAT 94–97
--- NOTE | 2019-05-29 05:55 | RAD_ITS ---
STUDY: X-RAY CHEST REASON FOR EXAM: Male, 58 years old. HYPOXIA, TACHYPNEA TECHNIQUE: Single AP portable view of the chest. COMPARISON: FINDINGS: The lungs are clear and expanded. There is no demonstrated pleural abnormality. There is moderate cardiac enlargement. Normal mediastinum and emma. Normal visualized pulmonary arteries. Normal visualized aortic arch and descending thoracic aorta. Normal visualized thoracic spine. Normal visualized ribs, clavicles, and shoulders. There is no demonstrated abnormality of the visualized soft tissue structures of the upper abdomen. RAD/Chest 1 View (Portable) IMPRESSION: No active disease. Electronically Signed: Can Person MD at 17:22 EST Tel , Service support ,
[2019-05-29 08:01] LABS: Hematocrit 26.8 % (40-54); Mean Corp Hgb Conc 29.9 g/dL (32-36); Mean Corpuscular Volume 93.7 fL (80-94); Platelet Count 108 K/mm3 (150-450); RBC Distribution Width SD 54.6 fl (35.1-43.9); Red Blood Count 2.86 M/mm3 (4.6-6.2); White Blood Count 3.6 K/mm3 (4.4-11.0)
--- NOTE | 2019-05-29 08:14 | CT_ITS ---
STUDY: CTA CHEST REASON FOR EXAM: Male, 58 years old. SOB/HYPOXIA/CHF RADIATION DOSAGE (If Supplied By Facility): CTDIvol = ( 17.36 ) mGy, DLP = ( 493.10 ) mGycm TECHNIQUE: The examination was performed with the intravenous administration of 100ML ISOVUE 370. Post-processing of the angiographic images was performed, with multiplanar reformation and 3D reconstruction. Individualized dose optimization techniques were used for this CT. COMPARISON: Chest x-ray. FINDINGS: Normal enhancement of the main pulmonary artery and right and left pulmonary arteries. There is limited enhancement of the bilateral peripheral pulmonary arteries. There is no demonstrated pulmonary embolism. There is atherosclerotic calcification of the aortic arch with tortuosity. There is no demonstrated aortic dissection. There are calcifications of the coronary arteries. Normal mediastinum. Normal hilar regions. Normal visualized trachea and bronchi. The lungs are well expanded. There is emphysema in the lungs. There is perihilar interstitial accentuation with groundglass infiltrate in the left upper lobe. Normal pleura. Normal chest wall structures. There are degenerative changes of thoracic spine. Normal visualized upper abdomen. CT/CTA Chest W/WO Contrast IMPRESSION: CTA chest examination, without a demonstrated pulmonary embolism or arterial dissection. Emphysema. Left upper lung infiltrate. Electronically Signed: Iván Polo MD at 12:45 EST , Service support ,
[2019-05-29 08:24] LABS: Anion Gap 6 (5-15); BUN 14 mg/dL (7-18); BUN/Creat Ratio 13.7 RATIO (10-20); Calcium,Total 9.2 mg/dL (8.5-10.1); Chloride 100 mmol/L (98-107); Creatinine, Serum 1.02 mg/dL (0.70-1.30); EST Glomerular Filtration Rate 80 mL/min (>60); Est Glom Filt Rate - Afr Amer 96 mL/min (>60); Glucose 101 mg/dL (74-106); Potassium 3.4 mmol/L (3.5-5.1); Sodium Level 138 mmol/L (136-145)
[2019-05-29] MEDS: 0.9% Saline Lock 10 ML Syringe IV ×7 (09:55→23:52)
[2019-05-29] MEDS: Furosemide 40 MG/4 ML Vial IV (09:55)
--- NOTE | 2019-05-29 10:49 | PCM.PROGNOTE ---
<Debbie Cantu - Last Filed: 05/29/19 10:54> Patient Problems: Active and Suspected Problems Hyponatremia (Acute) Subjective: Patient seen and examined. Intermittently restless and confused. Patient noted to have labored breathing and coarse breath sounds throughout. Chest CTA ordered. - Physical Exam Vitals/I&O's: Vital Signs Temp Pulse Resp BP Pulse Ox 98.5 F 89 18 137/83 H 95 05/29/19 09:50 05/29/19 09:50 05/29/19 09:50 05/29/19 09:50 05/29/19 09:50 Oxygen Flow Rate (L/min) 2 Oxygen Delivery Method Nasal Cannula Weight: 201 lb 4.513 oz Body Mass Index (BMI) 31.5 Finger Stick Blood Glucose 120 Intake and Output for Last 24 Hours 05/27/19 05/28/19 05/29/19 23:59 23:59 23:59 Intake Total 1664.00 / 1664.00 1043.75 / 1043.75 Output Total 550 / 550 703 / 703 400 / 400 Balance 1114.00 / 1114.00 340.75 / 340.75 -400 / -400 General: - - Intermittent confusion, restlessness. HEENT: Atraumatic, PERRLA, EOMI, Normocephalic Oral: Dry Mucosa Neck: Supple, No JVD, Negative Carotid Bruits Lungs: Diminished, - - Coarse breath sounds throughout Cardiovascular: Regular rate, Regular Rhythm, Normal S1, Normal S2, No murmurs Abdomen: Bowel Sounds Present, Soft, Non Tender, Non-Distended Extremities: No clubbing, No cyanosis, No edema, Capillary Refill Less than 3 Seconds Skin: No rashes, No breakdown Musculoskeletal: No Tenderness to Palpation of Joints or Extremities Neurological: Cranial nerves II-XII grossly intact, Neuro grossly intact Psych/Mental Status: Impulsive, Restless Laboratory Results 05/29/19 06:19: WBC 3.6 L, RBC 2.86 L, Hgb 8.0 L, Hct 26.8 L, MCV 93.7, MCH 28.0, MCHC 29.9 L, RDW Std Deviation 54.6 H, RDW Coeff of Donnie 16.0 H, Plt Count 108 L, MPV 10.0 05/29/19 06:19: Sodium 138, Potassium 3.4 L, Chloride 100, Carbon Dioxide 32.0, Anion Gap 6, BUN 14, Creatinine 1.02, Estim Creat Clear Calc 73.80, Est GFR (MDRD) Af Amer 96, Est GFR (MDRD) Non-Af 80, BUN/Creatinine Ratio 13.7, Glucose 101, Calcium 9.2 Current Medications Acetaminophen (Tylenol) 650 mg PO Q6H PRN PRN PRN Reason: Pain Score 1-10/10 Last Admin: 05/27/19 21:15 Dose: 650 mg Documented by: Albuterol Sulfate (Ventolin Aerosols) 2.5 mg INHALATION Q2H PRN PRN PRN Reason: dyspnea, wheezing Last Admin: 05/28/19 04:02 Dose: 2.5 mg Documented by: Buspirone HCl (Buspar) 5 mg PO BID [facility] Last Admin: 05/28/19 22:42 Dose: 5 mg Documented by: Buspirone HCl (Buspar) 15 mg PO BID [facility] Last Admin: 05/28/19 22:42 Dose: 15 mg Documented by: Citalopram Hydrobromide (Celexa) 40 mg PO DAILY [facility] Last Admin: 05/28/19 09:34 Dose: 40 mg Documented by: Dicyclomine HCl (Bentyl) 20 mg PO Q6H PRN PRN PRN Reason: abdominal discomfort Last Admin: 05/26/19 22:42 Dose: 20 mg Documented by: Furosemide (Lasix) 40 mg PO BID@1000,1800 [facility] Last Admin: 05/28/19 17:08 Dose: 40 mg Documented by: Glucagon () 1 mg IM .X1 PRN PRN Reason: Hypoglycemia Guaifenesin (Robitussin) 10 ml PO Q4H PRN PRN PRN Reason: COUGH Last Admin: 05/28/19 00:09 Dose: 10 ml Documented by: Guaifenesin (Mucinex) 600 mg PO BID [facility] Last Admin: 05/28/19 22:42 Dose: 600 mg Documented by: Hydroxyzine Pamoate (Vistaril Pamoate Capsule) 50 mg PO Q6H PRN PRN PRN Reason: Mild Anxiety (score 1/3) Last Admin: 05/27/19 09:13 Dose: 50 mg Documented by: Lisinopril (Zestril) 5 mg PO DAILY [facility] Last Admin: 05/28/19 09:34 Dose: 5 mg Documented by: Lorazepam (Ativan) 1 mg IV Q2H PRN PRN PRN Reason: Severe Anxiety Last Admin: 05/28/19 19:18 Dose: 1 mg Documented by: Magnesium Oxide (Mag-Ox 400) 400 mg PO DAILY [facility] Last Admin: 05/28/19 09:40 Dose: 400 mg Documented by: Methocarbamol (Methocarbamol) 750 mg PO Q6H PRN PRN PRN Reason: Muscle Aches Last Admin: 05/25/19 23:59 Dose: 750 mg Documented by: Metoprolol Tartrate (Lopressor (Beta Olga)) 100 mg PO BID [facility] Last Admin: 05/28/19 22:42 Dose: 100 mg Documented by: [facility] Last Admin: 05/28/19 09:40 Dose: 1 tablet Documented by: Nicotine (Nicoderm Cq (Pbkc)) 21 mg TRANSDERM. DAILY [facility] Last Admin: 05/28/19 09:42 Dose: 21 mg Documented by: Nitroglycerin (Nitrostat) 0.4 mg SUBLINGUAL Q5M PRN PRN Reason: CARDIAC/CHEST PAIN Ondansetron HCl (Zofran) 4 mg IV Q8H PRN PRN PRN Reason: NAUSEA/VOMITING Pantoprazole Sodium (Protonix) 20 mg PO BID [facility] Last Admin: 05/28/19 22:42 Dose: 20 mg Documented by: Phenobarbital (Phenobarbital) 64.8 mg PO TID [facility]; Taper Stop: 06/01/19 09:59 Last Admin: 05/28/19 22:42 Dose: 64.8 mg Documented by: Potassium Chloride (K-Dur) [facility] Last Admin: 05/28/19 17:55 Dose: Not Given Documented by: Prednisone () 20 mg PO DAILY@0800 [facility] Stop: 06/01/19 08:01 Prednisone () 10 mg PO DAILY@0800 [facility] Stop: 06/04/19 08:01 Sodium Chloride () 10 - 40 ml IV UD PRN PRN Reason: SALINE FLUSH Last Admin: 05/29/19 09:55 Dose: 20 ml Documented by: Tizanidine HCl (Zanaflex) 4 mg PO TID PRN PRN PRN Reason: SPASMS Medical Necessity - Tobacco Use Smoking Status: Current every day smoker Tobacco Use: Cigarettes Assessment/Plan All Active Problems Hyponatremia (Acute) Elevated troponin (Acute) Chest pain (Acute) Shortness of breath (Acute) COPD exacerbation (Acute) GI bleed (Acute) 1. Hyponatremia secondary to beer potomania-improving. Continue fluid restriction, IV Lasix. 2. Chronic alcoholism-encouraged inpatient treatment, patient agreeable. Social work involved. Continue CIWA. Given increased agitation and anxiety, discontinued Librium taper and transition to phenobarbital taper. Folic acid, thiamine and multivitamin supplementation. 3. Acute hypoxic respiratory insufficiency-chest x-ray 05/28/2019 demonstrated no acute findings. Patient with coarse breath sounds throughout on exam today and harsh cough, concern for aspiration. CTA of chest completed, report pending. Continue albuterol and DuoNeb aerosols. Aspiration precautions. 4. Indeterminate troponin-recent normal stress test 05/24/2019. Denies chest pain. 5. Chronic normocytic anemia/pancytopenia-history of GI bleed. Check iron studies. Trend CBC. 6. Anxiety/depression/Agoraphobia-continue Celexa, BuSpar regimen. Not adequately treated. 7. History of CVA-statin and Plavix on hold due to anemia and abnormal LFTs. 8. Chronic COPD with recent exacerbation-continue prednisone taper as previously prescribed. As needed albuterol aerosol. 9. Hypertension-stable, continue lisinopril, metoprolol regimen. DVT prophylaxis- SCDs Discharge planning: Possible discharge to inpatient treatment facility for alcohol abuse pending acceptance and withdrawal protocol completion. This patient was seen by ROSSANA Mcintosh under the supervision of Dr. Jordan. <Shyann Jordan - Last Filed: 05/29/19 14:44> - Physical Exam Vitals/I&O's: Vital Signs Temp Pulse Resp BP Pulse Ox 98.4 F 75 18 125/22 H 95 05/29/19 11:37 05/29/19 11:37 05/29/19 11:37 05/29/19 12:33 05/29/19 11:37 Oxygen Flow Rate (L/min) 2 Oxygen Delivery Method Nasal Cannula Weight: 201 lb 4.513 oz Body Mass Index (BMI) 31.5 Finger Stick Blood Glucose 120 Intake and Output for Last 24 Hours 02/05/28/19 05/29/19 23:59 23:59 23:59 Intake Total 1664.00 / 1664.00 1043.75 / 1043.75 16.67 / 16.67 Output Total 550 / 550 703 / 703 850 / 850 Balance 1114.00 / 1114.00 340.75 / 340.75 -833.33 / -833.33 Laboratory Results 05/29/19 06:19: WBC 3.6 L, RBC 2.86 L, Hgb 8.0 L, Hct 26.8 L, MCV 93.7, MCH 28.0, MCHC 29.9 L, RDW Std Deviation 54.6 H, RDW Coeff of Donnie 16.0 H, Plt Count 108 L, MPV 10.0 05/29/19 06:19: Sodium 138, Potassium 3.4 L, Chloride 100, Carbon Dioxide 32.0, Anion Gap 6, BUN 14, Creatinine 1.02, Estim Creat Clear Calc 73.80, Est GFR (MDRD) Af Amer 96, Est GFR (MDRD) Non-Af 80, BUN/Creatinine Ratio 13.7, Glucose 101, Calcium 9.2 Current Medications Acetaminophen (Tylenol) 650 mg PO Q6H PRN PRN PRN Reason: Pain Score 1-10/10 Last Admin: 05/27/19 21:15 Dose: 650 mg Documented by: Albuterol Sulfate (Ventolin Aerosols) 2.5 mg INHALATION Q2H PRN PRN PRN Reason: dyspnea, wheezing Last Admin: 05/28/19 04:02 Dose: 2.5 mg Documented by: Buspirone HCl (Buspar) 5 mg PO BID [facility] Last Admin: 05/29/19 11:02 Dose: Not Given Documented by: Buspirone HCl (Buspar) 15 mg PO BID [facility] Last Admin: 05/29/19 11:02 Dose: Not Given Documented by: Citalopram Hydrobromide (Celexa) 40 mg PO DAILY [facility] Last Admin: 05/29/19 11:03 Dose: Not Given Documented by: Dicyclomine HCl (Bentyl) 20 mg PO Q6H PRN PRN PRN Reason: abdominal discomfort Last Admin: 05/26/19 22:42 Dose: 20 mg Documented by: Furosemide (Lasix) 40 mg PO BID@1000,1800 [facility] Last Admin: 05/29/19 11:03 Dose: Not Given Documented by: Glucagon () 1 mg IM .X1 PRN PRN Reason: Hypoglycemia Guaifenesin (Robitussin) 10 ml PO Q4H PRN PRN PRN Reason: COUGH Last Admin: 05/28/19 00:09 Dose: 10 ml Documented by: Guaifenesin (Mucinex) 600 mg PO BID [facility] Last Admin: 05/29/19 11:03 Dose: Not Given Documented by: Hydralazine HCl (Apresoline Iv) 5 mg IV Q4H PRN PRN PRN Reason: BLOOD PRESSURE Hydroxyzine Pamoate (Vistaril Pamoate Capsule) 50 mg PO Q6H PRN PRN PRN Reason: Mild Anxiety (score 1/3) Last Admin: 05/27/19 09:13 Dose: 50 mg Documented by: Lisinopril (Zestril) 5 mg PO DAILY [facility] Last Admin: 05/29/19 11:04 Dose: Not Given Documented by: Lorazepam (Ativan) 1 mg IV Q2H PRN PRN PRN Reason: Severe Anxiety Last Admin: 05/28/19 19:18 Dose: 1 mg Documented by: Magnesium Oxide (Mag-Ox 400) 400 mg PO DAILY [facility] Last Admin: 05/29/19 11:03 Dose: Not Given Documented by: Methocarbamol (Methocarbamol) 750 mg PO Q6H PRN PRN PRN Reason: Muscle Aches Last Admin: 05/25/19 23:59 Dose: 750 mg Documented by: Metoprolol Tartrate (Lopressor (Beta Olga)) 100 mg PO BID [facility] Last Admin: 05/29/19 11:03 Dose: Not Given Documented by: [facility]ivit[facility] ([facility]) [facility] Last Admin: 05/29/19 11:02 Dose: Not Given Documented by: Nicotine (Nicoderm Cq (Pbkc)) 21 mg TRANSDERM. DAILY [facility] Last Admin: 05/29/19 11:13 Dose: 21 mg Documented by: Nitroglycerin (Nitrostat) 0.4 mg SUBLINGUAL Q5M PRN PRN Reason: CARDIAC/CHEST PAIN Ondansetron HCl (Zofran) 4 mg IV Q8H PRN PRN PRN Reason: NAUSEA/VOMITING Pantoprazole Sodium (Protonix) 20 mg PO BID [facility] Last Admin: 05/29/19 11:04 Dose: Not Given Documented by: Phenobarbital (Phenobarbital) 64.8 mg PO TID [facility]; Taper Stop: 06/01/19 09:59 Last Admin: 05/28/19 22:42 Dose: 64.8 mg Documented by: Potassium Chloride (K-Dur) [facility] Last Admin: 05/29/19 11:02 Dose: Not Given Documented by: Prednisone () 20 mg PO DAILY@0800 [facility] Stop: 06/01/19 08:01 Prednisone () 10 mg PO DAILY@0800 [facility] Stop: 06/04/19 08:01 Sodium Chloride () 10 - 40 ml IV UD PRN PRN Reason: SALINE FLUSH Last Admin: 05/29/19 09:55 Dose: 20 ml Documented by: Tizanidine HCl (Zanaflex) 4 mg PO TID PRN PRN PRN Reason: SPASMS Assessment/Plan Patient seen by ROSSANA Mcintosh under my supervision. Patient seen and examined today. He was breathing heavily with audible crackles. He was quite lethargic. He was on 2 L of oxygen. Unable to do review of systems on account of his lethargy. o/e: Vital Signs Height 5 ft 7 in Weight: 201 lb 4.513 oz Weight in Pounds 201.3 lbs Pulse Ox 95 Temperature 98.4 F Pulse Rate 75 Respiratory Rate 18 Blood Pressure [BP] 125/22 Blood Pressure 160/82 Blood Pressure Position [BP] Semi-Fowlers Blood Pressure Position Semi-Fowlers General: - -lethargic HEENT: Atraumatic, PERRLA, EOMI, Normocephalic Oral: Dry Mucosa Neck: Supple, No JVD, Negative Carotid Bruits Lungs: coarse crackles in all lung cuellar anteriorly and posteriorly Cardiovascular: Regular rate, Regular Rhythm, Normal S1, Normal S2, No murmurs Abdomen: Bowel Sounds Present, Soft, Non Tender, Non-Distended Extremities: No clubbing, No cyanosis, No edema, Capillary Refill Less than 3 Seconds Skin: No rashes, No breakdown Musculoskeletal: No Tenderness to Palpation of Joints or Extremities Neurological: Cranial nerves II-XII grossly intact, Neuro grossly intact Psych/Mental Status: lethargic Patient receiving IV Lasix. Keep n.p.o. and get speech therapy to evaluate him as is likely he is aspirating. Chest CT ordered and was negative for PE but showed a left upper lung infiltrate and emphysema. Patient has no leukocytosis and no fever. HemoGlobin is 8. Await speech therapy evaluation. Continue diuresing with Lasix. Titrate oxygen to maintain saturation above 90%. Hold all sedatives. Will hold off on antibiotics for now as there is no evidence of fever or leukocytosis. Will have low threshold for starting antibiotics. Rest as per Debbie Cantu [employer]-C's note, which I have reviewed and endorsed. Code Visit Inpatient E&M: 58657 Subs Hosp L2
[2019-05-29] MEDS: Potassium Chloride 10mEq/100mL 10 MEQ/100 ML IV.SOLN. 100 MEQ IV BOLUS (12:40)
[2019-05-29] MEDS: LORazepam 2 MG/ML Syringe 1 MG IV ×3 (16:48→23:52)
[2019-05-29] MEDS: Phenobarbital Sodium 130 MG/ML Vial 60 MG IV (22:03)
[2019-05-30] VITALS (21 sets, daily range): BP systolic 72–164; BP diastolic 43–117; PULSE 78–104; RESP 14–23; TEMP 36.7–37.4; O2SAT 34–100
[2019-05-30] MEDS: 0.9% Saline Lock 10 ML Syringe IV ×10 (01:57→17:56)
[2019-05-30] MEDS: LORazepam 2 MG/ML Syringe 1 MG IV ×7 (01:57→17:56)
[2019-05-30] MEDS: Ketorolac 30 MG/ML Syringe IV (04:09)
[2019-05-30] MEDS: Phenobarbital Sodium 130 MG/ML Vial 60 MG IV ×2 (05:03→14:25)
[2019-05-30 05:54] LABS: Hematocrit 28.4 % (40-54); Hemoglobin 8.5 g/dL (13.0-16.5); Mean Corp Hgb Conc 29.9 g/dL (32-36); Mean Corpuscular Hgb 27.8 pg (27.0-32.0); Mean Corpuscular Volume 92.8 fL (80-94); Mean Platelet Vol. 10.1 fl (6.2-12.0); POSITIVE COUNT YES; RBC Distribution Width CV 15.9 % (11.6-14.6); RBC Distribution Width SD 53.9 fl (35.1-43.9); Red Blood Count 3.06 M/mm3 (4.6-6.2); White Blood Count 3.2 K/mm3 (4.4-11.0)
[2019-05-30 05:56] LABS: Platelet Count 95 K/mm3 (150-450); Scan Indicated on CBC? Y/N NO
[2019-05-30 06:34] LABS: Anion Gap 4 (5-15); BUN 14 mg/dL (7-18); BUN/Creat Ratio 13.7 RATIO (10-20); Calcium,Total 9.2 mg/dL (8.5-10.1); Chloride 99 mmol/L (98-107); Creatinine, Serum 1.02 mg/dL (0.70-1.30); EST Glomerular Filtration Rate 80 mL/min (>60); Est Glom Filt Rate - Afr Amer 96 mL/min (>60); Glucose 105 mg/dL (74-106); Potassium 2.9 mmol/L (3.5-5.1); Sodium Level 142 mmol/L (136-145)
[2019-05-30] MEDS: Potassium Chloride 10mEq/100mL 10 MEQ/100 ML IV.SOLN. 100 MEQ IV BOLUS ×7 (07:10→23:45)
[2019-05-30 07:17] LABS: Magnesium 1.4 mg/dL (1.6-2.6)
[2019-05-30] MEDS: Magnesium Sulfate 4gm/100mL 4 GM/100 ML IV.SOLN. IV (09:27)
[2019-05-30] MEDS: Furosemide 40 MG/4 ML Vial IV (09:32)
--- NOTE | 2019-05-30 10:51 | PN_ITS ---
<Debbie Cantu - Last Filed: 05/30/19 11:09> Patient Problems: Active and Suspected Problems Hyponatremia (Acute) Subjective: Patient seen and examined. Noted to have continued harsh cough this morning. Restless and confused. - Physical Exam Vitals/I&O's: Vital Signs Temp Pulse Resp BP Pulse Ox 98.1 F 95 18 152/75 H 34 05/30/19 09:22 05/30/19 09:22 05/30/19 09:22 05/30/19 09:22 05/30/19 10:34 Oxygen Flow Rate (L/min) 3 Oxygen Delivery Method Nasal Cannula Weight: 201 lb 4.513 oz Body Mass Index (BMI) 31.5 Finger Stick Blood Glucose 120 Intake and Output for Last 24 Hours 05/28/19 05/29/19 05/30/19 23:59 23:59 23:59 Intake Total 1043.75 / 1043.75 150.00 / 150.00 350 / 350 Output Total 703 / 703 2375 / 2375 200 / 200 Balance 340.75 / 340.75 -2225.00 / -2225.00 150 / 150 General: Confused, - - Restless HEENT: Atraumatic, PERRLA, EOMI, Normocephalic Oral: Dry Mucosa Neck: Supple, No JVD, Negative Carotid Bruits Lungs: Diminished, - - Coarse breath sounds throughout Cardiovascular: Regular rate, Regular Rhythm, Normal S1, Normal S2, No murmurs Abdomen: Bowel Sounds Present, Soft, Non Tender, Non-Distended Extremities: No clubbing, No cyanosis, No edema, Capillary Refill Less than 3 Seconds Skin: No rashes, No breakdown Musculoskeletal: No Tenderness to Palpation of Joints or Extremities Neurological: Cranial nerves II-XII grossly intact, Neuro grossly intact Psych/Mental Status: Impulsive, Restless Laboratory Results 05/30/19 04:50: WBC 3.2 L, RBC 3.06 L, Hgb 8.5 L, Hct 28.4 L, MCV 92.8, MCH 27.8, MCHC 29.9 L, RDW Std Deviation 53.9 H, RDW Coeff of Donnie 15.9 H, Plt Count 95 L, MPV 10.1 05/30/19 04:50: Sodium 142, Potassium 2.9 L, Chloride 99, Carbon Dioxide 39.0 H, Anion Gap 4 L, BUN 14, Creatinine 1.02, Estim Creat Clear Calc 73.80, Est GFR (MDRD) Af Amer 96, Est GFR (MDRD) Non-Af 80, BUN/Creatinine Ratio 13.7, Glucose 105, Calcium 9.2 05/30/19 05:00: Magnesium 1.4 L Current Medications Acetaminophen (Tylenol) 650 mg PO Q6H PRN PRN PRN Reason: Pain Score 1-10/10 Last Admin: 05/27/19 21:15 Dose: 650 mg Documented by: Albuterol Sulfate (Ventolin Aerosols) 2.5 mg INHALATION Q2H PRN PRN PRN Reason: dyspnea, wheezing Last Admin: 05/28/19 04:02 Dose: 2.5 mg Documented by: Buspirone HCl (Buspar) 5 mg PO BID [facility] Last Admin: 05/29/19 21:16 Dose: Not Given Documented by: Buspirone HCl (Buspar) 15 mg PO BID [facility] Last Admin: 05/29/19 21:16 Dose: Not Given Documented by: Citalopram Hydrobromide (Celexa) 40 mg PO DAILY [facility] Last Admin: 05/29/19 11:03 Dose: Not Given Documented by: Dicyclomine HCl (Bentyl) 20 mg PO Q6H PRN PRN PRN Reason: abdominal discomfort Last Admin: 05/26/19 22:42 Dose: 20 mg Documented by: Furosemide (Lasix) 40 mg IV DAILY [facility] Last Admin: 05/30/19 09:32 Dose: 40 mg Documented by: Glucagon () 1 mg IM .X1 PRN PRN Reason: Hypoglycemia Guaifenesin (Robitussin) 10 ml PO Q4H PRN PRN PRN Reason: COUGH Last Admin: 05/28/19 00:09 Dose: 10 ml Documented by: Guaifenesin (Mucinex) 600 mg PO BID [facility] Last Admin: 05/29/19 21:17 Dose: Not Given Documented by: Hydralazine HCl (Apresoline Iv) 5 mg IV Q4H PRN PRN PRN Reason: BLOOD PRESSURE Hydroxyzine Pamoate (Vistaril Pamoate Capsule) 50 mg PO Q6H PRN PRN PRN Reason: Mild Anxiety (score 1/3) Last Admin: 05/27/19 09:13 Dose: 50 mg Documented by: Piperacillin Sod/Tazobactam (Sod 3.375 gm/ Sodium Chloride) 50 mls @ 12.5 mls/hr IV Q8 [facility] Last Infusion: 05/30/19 09:08 Dose: Infused Documented by: Potassium Chloride () 10 meq in 100 mls @ 100 mls/hr IV BOLUS Q1H [facility] Stop: 05/30/19 10:59 Last Admin: 05/30/19 10:31 Dose: 100 mls/hr Documented by: Magnesium Sulfate () 4 gm in 100 mls @ 25 mls/hr IV X1 ONE Stop: 05/30/19 11:23 Last Admin: 05/30/19 09:27 Dose: 25 mls/hr Documented by: Lisinopril (Zestril) 5 mg PO DAILY [facility] Last Admin: 05/29/19 11:04 Dose: Not Given Documented by: Lorazepam (Ativan) 1 mg IV Q2H PRN PRN PRN Reason: Severe Anxiety Last Admin: 05/30/19 10:50 Dose: 1 mg Documented by: Magnesium Oxide (Mag-Ox 400) 400 mg PO DAILY [facility] Last Admin: 05/29/19 11:03 Dose: Not Given Documented by: Methocarbamol (Methocarbamol) 750 mg PO Q6H PRN PRN PRN Reason: Muscle Aches Last Admin: 05/25/19 23:59 Dose: 750 mg Documented by: Metoprolol Tartrate (Lopressor (Beta Olga)) 100 mg PO BID [facility] Last Admin: 05/29/19 21:17 Dose: Not Given Documented by: [facility] Last Admin: 05/29/19 11:02 Dose: Not Given Documented by: Nicotine (Nicoderm Cq (Pbkc)) 21 mg TRANSDERM. DAILY [facility] Last Admin: 05/30/19 09:28 Dose: 21 mg Documented by: Nitroglycerin (Nitrostat) 0.4 mg SUBLINGUAL Q5M PRN PRN Reason: CARDIAC/CHEST PAIN Ondansetron HCl (Zofran) 4 mg IV Q8H PRN PRN PRN Reason: NAUSEA/VOMITING Pantoprazole Sodium (Protonix) 20 mg PO BID [facility] Last Admin: 05/29/19 21:17 Dose: Not Given Documented by: Phenobarbital (Phenobarbital Sodium) 60 mg IV Q8 [facility] Last Admin: 05/30/19 05:03 Dose: 60 mg Documented by: Potassium Chloride (K-Dur) 40 meq PO BIDCM [facility] Last Admin: 05/29/19 16:12 Dose: Not Given Documented by: Prednisone () 20 mg PO DAILY@0800 [facility] Stop: 06/01/19 08:01 Prednisone () 10 mg PO DAILY@0800 [facility] Stop: 06/04/19 08:01 Sodium Chloride () 10 - 40 ml IV UD PRN PRN Reason: SALINE FLUSH Last Admin: 05/30/19 10:50 Dose: 20 ml Documented by: Tizanidine HCl (Zanaflex) 4 mg PO TID PRN PRN PRN Reason: SPASMS Medical Necessity - Tobacco Use Smoking Status: Current every day smoker Tobacco Use: Cigarettes Assessment/Plan All Active Problems Hyponatremia (Acute) Elevated troponin (Acute) Chest pain (Acute) Shortness of breath (Acute) COPD exacerbation (Acute) GI bleed (Acute) 1. Hyponatremia secondary to beer potomania-Resolved. Continue fluid restriction, IV Lasix. 2. Chronic alcoholism-encouraged inpatient treatment, patient agreeable. Social work involved. Continue CIWA. Given increased agitation and anxiety, discontinued Librium taper and transition to phenobarbital taper. Folic acid, thiamine and multivitamin supplementation. 3. Acute hypoxic respiratory insufficiency with left upper lobe infiltrate- chest x-ray 05/28/2019 demonstrated no acute findings. Patient with coarse b reath sounds throughout on exam and harsh cough, concern for aspiration. CTA of chest completed which demonstrated left upper lung infiltrate. Continue albuterol and DuoNeb aerosols. Aspiration precautions. Continue IV Lasix. IV Zosyn empirically given concern for aspiration although no current leukocytosis or fever. Obtain sputum culture. 4. Indeterminate troponin-recent normal stress test 05/24/2019. Denies chest pain. 5. Chronic normocytic anemia/pancytopenia-history of GI bleed. Iron studies demonstrated significant iron deficiency. IV Venofer x3 doses. Trend CBC. 6. Anxiety/depression/Agoraphobia-continue Celexa, BuSpar regimen. Not adequately treated. 7. History of CVA-statin and Plavix on hold due to anemia and abnormal LFTs. 8. Chronic COPD with recent exacerbation-continue prednisone taper as previously prescribed. As needed albuterol aerosol. 9. Hypertension-stable, continue lisinopril, metoprolol regimen. DVT prophylaxis- SCDs Discharge planning: Possible discharge to inpatient treatment facility for alcohol abuse pending acceptance and withdrawal protocol completion. This patient was seen by ROSSANA Mcintosh under the supervision of Dr. Jordan. <JulianShyann - Last Filed: 05/30/19 15:05> - Physical Exam Vitals/I&O's: Vital Signs Temp Pulse Resp BP Pulse Ox 98.1 F 95 18 152/75 H 34 05/30/19 09:22 05/30/19 09:22 05/30/19 09:22 05/30/19 09:22 05/30/19 10:34 Oxygen Flow Rate (L/min) 3 Oxygen Delivery Method Nasal Cannula Weight: 201 lb 4.513 oz Body Mass Index (BMI) 31.5 Finger Stick Blood Glucose 120 Intake and Output for Last 24 Hours 05/28/19 05/29/19 05/30/19 23:59 23:59 23:59 Intake Total 1043.75 / 1043.75 150.00 / 150.00 553.67 / 553.67 Output Total 703 / 703 2375 / 2375 850 / 850 Balance 340.75 / 340.75 -2225.00 / -2225.00 -296.33 / -296.33 Laboratory Results 05/30/19 04:50: WBC 3.2 L, RBC 3.06 L, Hgb 8.5 L, Hct 28.4 L, MCV 92.8, MCH 27.8, MCHC 29.9 L, RDW Std Deviation 53.9 H, RDW Coeff of Donnie 15.9 H, Plt Count 95 L, MPV 10.1 05/30/19 04:50: Sodium 142, Potassium 2.9 L, Chloride 99, Carbon Dioxide 39.0 H, Anion Gap 4 L, BUN 14, Creatinine 1.02, Estim Creat Clear Calc 73.80, Est GFR (MDRD) Af Amer 96, Est GFR (MDRD) Non-Af 80, BUN/Creatinine Ratio 13.7, Glucose 105, Calcium 9.2 05/30/19 05:00: Magnesium 1.4 L 05/30/19 13:22: POC Glucose 105 05/30/19 13:59: Specimen Type ART, Sample Site L Radial, pH 7.47 H, Bicarbonate Actual 41.9 H, POC Total CO2 44, Base Excess 18 H, O2 Saturation 95, ABG pCO2 57.4 H, ABG pO2 73 L, Brian Test POS, O2 Delivery Device Nasal Can, Liter Flow 3.0, Blood Gas Notified Whom GODWIN [place], Blood Gas Notified Time 1350 Current Medications Acetaminophen (Tylenol) 650 mg PO Q6H PRN PRN PRN Reason: Pain Score 1-10/10 Last Admin: 05/27/19 21:15 Dose: 650 mg Documented by: Albuterol Sulfate (Ventolin Aerosols) 2.5 mg INHALATION Q2H PRN PRN PRN Reason: dyspnea, wheezing Last Admin: 05/28/19 04:02 Dose: 2.5 mg Documented by: Buspirone HCl (Buspar) 5 mg PO BID [facility] Last Admin: 05/30/19 10:56 Dose: Not Given Documented by: Buspirone HCl (Buspar) 15 mg PO BID [facility] Last Admin: 05/30/19 10:56 Dose: Not Given Documented by: Citalopram Hydrobromide (Celexa) 40 mg PO DAILY [facility] Last Admin: 05/30/19 10:56 Dose: Not Given Documented by: Dicyclomine HCl (Bentyl) 20 mg PO Q6H PRN PRN PRN Reason: abdominal discomfort Last Admin: 05/26/19 22:42 Dose: 20 mg Documented by: Furosemide (Lasix) 40 mg IV DAILY [facility] Last Admin: 05/30/19 09:32 Dose: 40 mg Documented by: Glucagon () 1 mg IM .X1 PRN PRN Reason: Hypoglycemia Guaifenesin (Robitussin) 10 ml PO Q4H PRN PRN PRN Reason: COUGH Last Admin: 05/28/19 00:09 Dose: 10 ml Documented by: Guaifenesin (Mucinex) 600 mg PO BID [facility] Last Admin: 05/30/19 10:56 Dose: Not Given Documented by: Hydralazine HCl (Apresoline Iv) 5 mg IV Q4H PRN PRN PRN Reason: BLOOD PRESSURE Hydroxyzine Pamoate (Vistaril Pamoate Capsule) 50 mg PO Q6H PRN PRN PRN Reason: Mild Anxiety (score 1/3) Last Admin: 05/27/19 09:13 Dose: 50 mg Documented by: Piperacillin Sod/Tazobactam (Sod 3.375 gm/ Sodium Chloride) 50 mls @ 12.5 mls/hr IV Q8 [facility] Last Infusion: 05/30/19 09:08 Dose: Infused Documented by: Iron Sucrose 200 mg/ Sodium (Chloride) 110 mls @ 220 mls/hr IV DAILY [facility] Stop: 06/02/19 11:07 Last Infusion: 05/30/19 14:13 Dose: 220 mls/hr Documented by: Lisinopril (Zestril) 5 mg PO DAILY [facility] Last Admin: 05/30/19 11:01 Dose: Not Given Documented by: Lorazepam (Ativan) 1 mg IV Q2H PRN PRN PRN Reason: Severe Anxiety Last Admin: 05/30/19 11:35 Dose: 1 mg Documented by: Magnesium Oxide (Mag-Ox 400) 400 mg PO DAILY [facility] Last Admin: 05/30/19 10:56 Dose: Not Given Documented by: Methocarbamol (Methocarbamol) 750 mg PO Q6H PRN PRN PRN Reason: Muscle Aches Last Admin: 05/25/19 23:59 Dose: 750 mg Documented by: Metoprolol Tartrate (Lopressor (Beta Olga)) 100 mg PO BID [facility] Last Admin: 05/30/19 10:56 Dose: Not Given Documented by: [facility] Last Admin: 05/30/19 10:55 Dose: Not Given Documented by: Nicotine (Nicoderm Cq (Pbkc)) 21 mg TRANSDERM. DAILY [facility] Last Admin: 05/30/19 09:28 Dose: 21 mg Documented by: Nitroglycerin (Nitrostat) 0.4 mg SUBLINGUAL Q5M PRN PRN Reason: CARDIAC/CHEST PAIN Ondansetron HCl (Zofran) 4 mg IV Q8H PRN PRN PRN Reason: NAUSEA/VOMITING Pantoprazole Sodium (Protonix) 20 mg PO BID [facility] Last Admin: 05/30/19 10:56 Dose: Not Given Documented by: Phenobarbital (Phenobarbital Sodium) 60 mg IV Q8 [facility] Last Admin: 05/30/19 14:25 Dose: 60 mg Documented by: Pot[facility]) [facility] Last Admin: 05/30/19 14:39 Dose: Not Given Documented by: Prednisone () 20 mg PO DAILY@0800 [facility] Stop: 06/01/19 08:01 Last Admin: 05/30/19 10:56 Dose: Not Given Documented by: Prednisone () 10 mg PO DAILY@0800 [facility] Stop: 06/04/19 08:01 Sodium Chloride () 10 - 40 ml IV UD PRN PRN Reason: SALINE FLUSH Last Admin: 05/30/19 14:26 Dose: 10 ml Documented by: Tizanidine HCl (Zanaflex) 4 mg PO TID PRN PRN PRN Reason: SPASMS Assessment/Plan Patient seen by ROSSANA Mcintsoh under my supervision. Patient seen and examined. He is still lethargic, with audible crackles and breathing heavily. On 3L of oxygen. o/e: Vital Signs Height 5 ft 7 in Weight: 201 lb 4.513 oz Weight in Pounds 201.3 lbs Pulse Ox 34 Temperature 98.1 F Pulse Rate 95 Respiratory Rate 18 Blood Pressure [BP] 125/22 Blood Pressure 152/75 Blood Pressure Position [BP] Semi-Fowlers Blood Pressure Position Semi-Fowlers General: - -lethargic HEENT: Atraumatic, PERRLA, EOMI, Normocephalic Oral: Dry Mucosa Neck: Supple, No JVD, Negative Carotid Bruits Lungs: coarse crackles in all lung cuellar anteriorly and posteriorly; on 3L of oxygen Cardiovascular: Regular rate, Regular Rhythm, Normal S1, Normal S2, No murmurs Abdomen: Bowel Sounds Present, Soft, Non Tender, Non-Distended Extremities: No clubbing, No cyanosis, No edema, Capillary Refill Less than 3 Seconds Skin: No rashes, No breakdown Musculoskeletal: No Tenderness to Palpation of Joints or Extremities Neurological: Cranial nerves II-XII grossly intact, Neuro grossly intact Psych/Mental Status: lethargic Patient receiving IV Lasix. Patient still NPO; speech therapy couldn't evaluate him as he was not very cooperative. Continue diuresis. ABG done showed pH of 7.47, with bicarb of 41.9, and pCO2 of 57.4 and pO2 of 73. He did have CTA on 05/29/2019 which showed emphysema and perihilar intersitial accentuation with ground glass infiltarte in left upper lobe. ABGs look similar to previous ABGs from 2016. Will benefit from intensive chest physiotherapy and Acapella as I think patient does have atelectasis. Await speech therapy recommendations. Continue diuresing with IV Lasix. Continue phenobarb for alcohol withdrawal. Will hold BuSpar and tizanidine as well as citalopram as patient is on phenobarbital as he is very lethargic. Iron studies showed severe iron deficiency anemia so patient is on Venofer. Rest as per Debbie Cantu ROUTE CLERK-C's note, which I have reviewed and endorsed. Code Visit Inpatient E&M: 28387 Subs Hosp L2
[2019-05-30 13:36] LABS: Bedside Glucose 105 mg/dL (70-110)
[2019-05-30 14:06] LABS: Allen Test POS; Base Excess 18 mmol/L (-2 to +2); Bicarbonate 41.9 mmol/L (22-26); Blood Gas Specimen Type ART; O2 Delivery Device Nasal Can; PO2 73 mmHG (75-100); SITE L Radial; SO2 95 % (95-99); Time Given 1350; Total Carbon Dioxide 44 mmol/L; pCO2 57.4 mmHg (35-45); pH 7.47 (7.35-7.45)
--- NOTE | 2019-05-30 15:51 | PCM.PN.BLA ---
Progress Note I was asked by nursing to see the patient in 101 for lethargy and crackles. Pt is a 58 YO male admitted to the hospital for severe hyponatremia thought to be do to beer potomania. While in the hospital he experienced acute alcohol withdrawal and was placed on phenobarb. He is also getting Ativan PRN. He is very somnolent and we are unable to arouse him by calling his name or shaking him at the bedside. He did have a delayed withdrawal to a painful stimulus. His respirations are not labored and he has shallow breathing. There are coarse breath sounds anteriorly and laterally. Current vital signs are temperature 98.4, pulse rate 97, blood pressure 142/85, respiratory rate 20 and he is 94% saturated on a 3 L nasal cannula. He has had very poor oral intake since 05/25/2019 and remains on Lasix. He has a known history of stage III diastolic dysfunction. All lab was personally reviewed. He is pancytopenic with a WBC count of 3.2, hemoglobin of 8.5 (stable) and platelets of 95,000 which are decreasing. Sodium is 142 with a potassium of 2.9 and a serum bicarb of 39, up from 32 on 05/29/2019. Magnesium was low at 1.4. Potassium and magnesium have been supplemented. An ABG was obtained on a 3 L nasal cannula and the pH is 7.47 with a PCO2 of 57 and a PO2 of 73. Impressions 1. Metabolic alkalosis consistent with contraction alkalosis. I suspect the patient is hypoventilating because of this. His MM ar very dry and he has very poor oral intake for the past several days but continues on Lasix. Will DC the Lasix and consider starting IV fluids. 2. acute respiratory insufficiency with Hypoxia and hypercarbia. He is very lethargic. Will place him on a continuous pulse ox and advised nursing to call me if the pulse ox starts to decline. He would then be moved to the ICU and likely intubated. 3. RUL pneumonia - more likely than not due to ASP. continue the Zosyn. 4. Acute Alcohol withdrawal. Recheck a BMP, phosphorus and magnesium now. The Potassium was given IV this AM because he is unable to take PO meds at this time. Discussed with Debbie Cantu who has been caring for this pt. STROKE Vital Signs/Narrative: Vital Signs Pulse 05/30/19 14:57 97
--- NOTE | 2019-05-30 16:28 | NURSING ---
Spoke with patient mother who did have HIPAA password. Update given on patient's declining status. This RN stated patient has been confused and drowsy today and restless in bed. Patient is very weak. Still requiring oxygen. Mother thanked nursing. Nursing stated to call at anytime for updates.
[2019-05-30 18:09] LABS: Anion Gap 6 (5-15); BUN 15 mg/dL (7-18); BUN/Creat Ratio 13.3 RATIO (10-20); Calcium,Total 9.5 mg/dL (8.5-10.1); Chloride 95 mmol/L (98-107); Creatinine, Serum 1.13 mg/dL (0.70-1.30); EST Glomerular Filtration Rate 71 mL/min (>60); Est Glom Filt Rate - Afr Amer 86 mL/min (>60); Estimated Creatinine Clearance 66.62 ml/min; Glucose 121 mg/dL (74-106); Magnesium 2.6 mg/dL (1.6-2.6); Phosphorus 3.3 mg/dL (2.5-4.9); Potassium 2.9 mmol/L (3.5-5.1); Sodium Level 143 mmol/L (136-145)
--- NOTE | 2019-05-30 20:56 | NURSING ---
intubation record [address] chaparro 2099 successful intubation 7.5 ETT 24 at lip jarrett LS, good color change
[2019-05-30] MEDS: Etomidate 20 MG/10 ML Vial IV ×2 (20:58→21:05)
[2019-05-30] MEDS: Midazolam 2 MG/2 ML Syringe IV (21:06)
[2019-05-30] MEDS: fentaNYL drip 100 ML 2.5 MCG IV (21:10)
[2019-05-30] MEDS: Propofol 10MG/Ml 1,000 MG/100 ML Bottle 5.5 MG CONT INF (21:10)
--- NOTE | 2019-05-30 21:14 | PCM.HOSP.N ---
Hospitalist Note Intubation Note: Patient with evidence of respiratory and/or impending distress. Decline with increased oxygenation needs with ABG demonstrating hypoxia and hypercapnia with inability to appropriately protect airway prompting transition to the ICU for intubation. Medications administered: Etomidate 20 mg IV x 2, versed 2 mg IV x 1. ETT size: 7.5 Patient intubated in standard fashion with visualization of the vocal cords and passage of the ETT. Positioning verified with auscultation. Patient did require additional etomidate 20 mg IV x 1 as biting the ETT and tongue prior to initiation of versed. Post-intubation CXR requested. Patient transitioned from PCU to ICU with consultation to ICU physician requested. Will add vancomycin and request MRSA PCR w/ de-escalation if appropriate. Will obtain sputum Cx now. Notable purulent foul appearing secretions noted upon intubation, copious. Code Visit Procedures: [id number] Insert Emergency Airway
--- NOTE | 2019-05-30 21:20 | RAD_ITS ---
STUDY: X-RAY CHEST REASON FOR EXAM: Male, 58 years old. ET AND OG PLACEMENT TECHNIQUE: Single AP portable view of the chest. COMPARISON: 05/29/2019. FINDINGS: Endotracheal tube terminates 7 cm above the vitaly. Nasogastric tube enters the stomach. Tip is not seen. Mild infiltrate developing in the mid right lung. No other changes since yesterday. RAD/Chest 1 View (Portable) IMPRESSION: Endotracheal tube and nasogastric tubes in grossly satisfactory position. Mild new infiltrate in the mid right lung. Electronically Signed: Naveed Moore MD at 21:33 EST , Service support ,
[2019-05-30] MEDS: Famotidine 200 MG/20 ML MDV 20 MG in 0.9% Normal Saline (Pres. free 8 ML 300 MG IV (21:56)
[2019-05-30] MEDS: Chlorhexidine 15 ML PO (22:11)
[2019-05-30] MEDS: 0.9% Normal Saline 1,000 ML 100 ML IV (22:41)
--- NOTE | 2019-05-30 22:52 | NURSING ---
Notified contact lens flashing puncher Mariajose Mccann of pt admission to ICU. States she will bring in social work papers in AM.
[2019-05-30] MEDS: Ipratropium/Albuterol Sulfate 3 ML AMPUL.NEB INHALATION (23:14)
--- NOTE | 2019-05-30 23:28 | PCM.RX.CS ---
Consult Pharmacy has been consulted to manage selected antiobiotic: Vancomycin Type of Consult: New start Labs: Sodium 143 mmol/L (136-145) 05/30/19 17:45 Potassium 2.9 mmol/L (3.5-5.1) L 05/30/19 17:45 Chloride 95 mmol/L (98-107) L 05/30/19 17:45 Carbon Dioxide 42.0 mmol/L (21.0-32.0) H 05/30/19 17:45 Anion Gap 6 (5-15) 05/30/19 17:45 BUN 15 mg/dL (7-18) 05/30/19 17:45 Creatinine 1.13 mg/dL (0.70-1.30) 05/30/19 17:45 Est GFR (MDRD) Af Amer 86 mL/min (>60) 05/30/19 17:45 Est GFR (MDRD) Non-Af 71 mL/min (>60) 05/30/19 17:45 BUN/Creatinine Ratio 13.3 RATIO (10-20) 05/30/19 17:45 Glucose 121 mg/dL (74-106) H 05/30/19 17:45 Weight used for dosin.3 kg Estimated Creatinine Clearance: 76.78 Goal Trough: 15-20 mcg/mL Pharmacy Plan for Drug Dosing: Pharmacy Service will continue to monitor and adjust dosing as required. Medications Vancomycin HCl 1,250 mg/ (Sodium Chloride) 275 mls @ 167 mls/hr IV Q12H [place] Discontinued Medications Vancomycin HCl 1,750 mg/ (Sodium Chloride) 535 mls @ 250 mls/hr IV X1 [facility] Stop: 05/30/19 23:08 Last Admin: 05/30/19 22:10 Dose: 250 mls/hr Documented by: Follow-Up Labs: Trough Vancomycin Labs to be done on [date and time ordered]: 06/01 @ 1675
[2019-05-30] MEDS: Atorvastatin Calcium 80 MG Tablet PO (23:45)
[2019-05-30 23:51] LABS: Allen Test POS; Base Excess 15 mmol/L (-2 to +2); Bicarbonate 37.7 mmol/L (22-26); Blood Gas Specimen Type ART; FI02 40; Mode A-C; O2 Delivery Device Vent; PEEP 5; PO2 69 mmHG (75-100); RR 14; SITE R Radial; SO2 95 % (95-99); Time Given 2340; Total Carbon Dioxide 39 mmol/L; Vt 500; pCO2 47.5 mmHg (35-45); pH 7.51 (7.35-7.45)
[2019-05-31] VITALS (43 sets, daily range): BP systolic 81–159; BP diastolic 40–118; PULSE 69–91; RESP 14; TEMP 35.7–37.2; O2SAT 94–100; BMI 25.9
[2019-05-31] MEDS: Potassium Chloride 10mEq/100mL 10 MEQ/100 ML IV.SOLN. 100 MEQ IV BOLUS ×2 (00:45→02:02)
[2019-05-31] MEDS: Ipratropium/Albuterol Sulfate 3 ML AMPUL.NEB INHALATION ×6 (03:07→22:38)
[2019-05-31 04:39] LABS: Hematocrit 28.7 % (40-54); Hemoglobin 8.6 g/dL (13.0-16.5); Mean Corpuscular Hgb 27.6 pg (27.0-32.0); Mean Platelet Vol. 10.8 fl (6.2-12.0); POSITIVE COUNT YES; Platelet Count 84 K/mm3 (150-450); RBC Distribution Width CV 16.1 % (11.6-14.6); RBC Distribution Width SD 54.8 fl (35.1-43.9); Red Blood Count 3.12 M/mm3 (4.6-6.2); White Blood Count 2.9 K/mm3 (4.4-11.0)
[2019-05-31 05:05] LABS: Anion Gap 7 (5-15); BUN 16 mg/dL (7-18); BUN/Creat Ratio 17.1 RATIO (10-20); Calcium,Total 8.7 mg/dL (8.5-10.1); Chloride 103 mmol/L (98-107); Creatinine, Serum 0.94 mg/dL (0.70-1.30); EST Glomerular Filtration Rate 88 mL/min (>60); Est Glom Filt Rate - Afr Amer 106 mL/min (>60); Estimated Creatinine Clearance 80.09 ml/min; Glucose 131 mg/dL (74-106); Magnesium 2.2 mg/dL (1.6-2.6); Phosphorus 2.3 mg/dL (2.5-4.9); Potassium 3.1 mmol/L (3.5-5.1); Sodium Level 145 mmol/L (136-145)
[2019-05-31] MEDS: Propofol 10MG/Ml 1,000 MG/100 ML Bottle 9 MG CONT INF ×2 (06:18→09:32)
[2019-05-31] MEDS: fentaNYL drip 100 ML 10 MCG IV ×2 (06:55→17:18)
[2019-05-31] MEDS: 0.9% Normal Saline 1,000 ML 100 ML IV (07:54)
--- NOTE | 2019-05-31 08:16 | PCM.PN.HOSP ---
Patient Problems: Active and Suspected Problems Hyponatremia (Acute) Reason for Visit: Follow-up on respiratory failure Subjective: Patient was seen and examined. He was intubated last night for progressive shortness of breath and lethargy. He is on mechanical ventilator in the ICU, PEEP 5, FiO2 40%. He was given an extra dose of etomidate last night on account of biting on the ET tube and biting his tongue. He is otherwise sedated on propofol. His healthcare power of deputy county attorney/best friend: Mariajose Mccann is at the bedside. Patient is not , has grown children who live in [place]. His mother lives in [place]. Updated her of his overall medical condition, she had no questions for me. Objective: Physical exam: Vitals/I&O's: Vital Signs Temp Pulse Resp BP Pulse Ox 96.3 F L 72 14 129/63 H 97 05/31/19 08:00 05/31/19 08:00 05/31/19 08:00 05/31/19 08:00 05/31/19 08:00 Oxygen Flow Rate (L/min) 3 Oxygen Delivery Method Mechanical Ventilator Weight: 75 kg Body Mass Index (BMI) 31.5 Finger Stick Blood Glucose 120 Intake and Output for Last 24 Hours 05/29/19 05/30/19 05/31/19 23:59 23:59 23:59 Intake Total 150.00 / 150.00 1456.34 / 1477.34 / Output Total 2375 / 2375 1850 / 1999 350 / 350 Balance -2225.00 / -2225.00 -393.66 / -522.66 1631.67 / 1631.67 General: - - Intubated, sedated, on mechanical ventilator HEENT: Atraumatic, PERRLA, EOMI, Normocephalic, - - Dried blood on the tongue and around the lips, NG tube insitu, canister has old blood from when he bit his tongue last night Oral: Dry Mucosa Neck: Supple Lungs: Clear to auscultation - anteriorly, Normal air movement Cardiovascular: Regular rate, Regular Rhythm, Normal S1, Normal S2, No murmurs Abdomen: Bowel Sounds Present, Soft, Non Tender, Non-Distended, No Hepato-splenomegaly Extremities: No edema Skin: No rashes, No breakdown Musculoskeletal: No Tenderness to Palpation of Joints or Extremities Lymphatic: No Cervical, Supraclavicular, or Inguinal Adenopathy Neurological: Neuro grossly intact - sedated Psych/Mental Status: Normal Affect, Appropriate Laboratory Results 05/30/19 13:22: POC Glucose 105 05/30/19 13:59: Specimen Type ART, Sample Site L Radial, pH 7.47 H, Bicarbonate Actual 41.9 H, POC Total CO2 44, Base Excess 18 H, O2 Saturation 95, ABG pCO2 57.4 H, ABG pO2 73 L, Brian Test POS, O2 Delivery Device Nasal Can, Liter Flow 3.0, Blood Gas Notified Whom [facility] [place], Blood Gas Notified Time 1350 05/30/19 17:45: Sodium 143, Potassium 2.9 L, Chloride 95 L, Carbon Dioxide 42.0 H, Anion Gap 6, BUN 15, Creatinine 1.13, Estim Creat Clear Calc 66.62, Est GFR (MDRD) Af Amer 86, Est GFR (MDRD) Non-Af 71, BUN/Creatinine Ratio 13.3, Glucose 121 H, Calcium 9.5, Phosphorus 3.3, Magnesium 2.6 05/30/19 23:47: Specimen Type ART, Sample Site R Radial, pH 7.51 H, Bicarbonate Actual 37.7 H, POC Total CO2 39, Base Excess 15 H, O2 Saturation 95, O2 % 40, ABG pCO2 47.5 H, ABG pO2 69 L, Brian Test POS, Respiration Rate 14, O2 Delivery Device Vent, Minute Volume 7.00, Vent Mode A-C, Tidal Volume 500, POC PEEP 5, Blood Gas Notified Whom [facility] [place], Blood Gas Notified Time 233905/31/19 00:00: MRSA (PCR) Cancelled 05/31/19 04:20: WBC 2.9 L, RBC 3.12 L, Hgb 8.6 L, Hct 28.7 L, MCV 92.0, MCH 27.6, MCHC 30.0 L, RDW Std Deviation 54.8 H, RDW Coeff of Donnie 16.1 H, Plt Count 84 L, MPV 10.8 05/31/19 04:20: Sodium 145, Potassium 3.1 L, Chloride 103, Carbon Dioxide 35.0 H, Anion Gap 7, BUN 16, Creatinine 0.94, Estim Creat Clear Calc 80.09, Est GFR (MDRD) Af Amer 106, Est GFR (MDRD) Non-Af 88, BUN/Creatinine Ratio 17.1, Glucose 131 H, Calcium 8.7, Phosphorus 2.3 L, Magnesium 2.2 05/31/19 07:45: MRSA (PCR) Pending Current Medications Albuterol Sulfate (Ventolin Aerosols) 2.5 mg INHALATION Q2H PRN PRN PRN Reason: dyspnea, wheezing Last Admin: 05/28/19 04:02 Dose: 2.5 mg Documented by: Albuterol/Ipratropium (Duoneb) 3 ml INHALATION Q4H.RT [facility] Last Admin: 05/31/19 06:53 Dose: 3 ml Documented by: Atorvastatin Calcium (Lipitor) 80 mg PO QHS [facility] Last Admin: 05/30/19 23:45 Dose: 80 mg Documented by: Chlorhexidine Gluconate () 15 ml PO BID [facility] Last Admin: 05/30/19 22:11 Dose: 15 ml Documented by: Clopidogrel Bisulfate (Plavix) 75 mg GT DAILY [facility] Famotidine (Pepcid) 20 mg GT BID [facility] Last Admin: 05/30/19 22:42 Dose: Not Given Documented by: Piperacillin Sod/Tazobactam (Sod 3.375 gm/ Sodium Chloride) 50 mls @ 12.5 mls/hr IV Q8 [facility] Last Admin: 05/31/19 06:01 Dose: 12.5 mls/hr Documented by: Sodium Chloride () 1,000 mls @ 100 mls/hr IV .Q10H [facility] Last Admin: 05/31/19 07:54 Dose: 100 mls/hr Documented by: Fentanyl () 100 mls @ 2.5 mls/hr IV UD [facility]; Protocol Last Titration: 05/31/19 08:00 Dose: 100 mcg/hr, 10 mls/hr Documented by: Propofol (Diprivan) 1,000 mg in 100 mls @ 4.5 mls/hr CONT INF .Q12H [facility]; Protocol Last Titration: 05/31/19 08:00 Dose: 20 mcg/kg/min, 9 mls/hr Documented by: Vancomycin IV Pharmacy to Dose (1 ea/ Sodium Chloride) 500 mls @ 250 mls/hr IV X1 PRN; Protocol PRN Reason: Rx to Dose Vancomycin HCl 1,250 mg/ (Sodium Chloride) 275 mls @ 167 mls/hr IV Q12H [facility] Potassium Phosphate 30 mm/ (Sodium Chloride) 260 mls @ 42 mls/hr IV X1 ONE Stop: 05/31/19 13:41 Last Admin: 05/31/19 07:54 Dose: 42 mls/hr Documented by: Lisinopril (Zestril) 5 mg GT DAILY [facility] Last Admin: 05/30/19 22:42 Dose: Not Given Documented by: Methylprednisolone (Solu-Medrol) 40 mg IV Q8 [facility] Last Admin: 05/31/19 06:01 Dose: 40 mg Documented by: Metoprolol Tartrate (Lopressor (Beta Olga)) 100 mg GT BID [facility] Last Admin: 05/30/19 22:42 Dose: Not Given Documented by: Nicotine (Nicoderm Cq (Pbkc)) 21 mg TRANSDERM. DAILY [facility] Last Admin: 05/30/19 09:28 Dose: 21 mg Documented by: STROKE Vital Signs/Narrative: Vital Signs Temp Pulse Resp BP Pulse Ox 05/31/19 08:00 96.3 F L 72 14 129/63 H 97 05/31/19 07:00 69 14 131/66 H 100 05/31/19 06:00 72 14 125/67 H 98 05/31/19 05:29 73 14 97 05/31/19 05:00 72 14 125/62 H 98 Medical Necessity - Tobacco Use Smoking Status: Current every day smoker Tobacco Use: Cigarettes Assessment/Plan All Active Problems Hyponatremia (Acute) Elevated troponin (Acute) Chest pain (Acute) Shortness of breath (Acute) COPD exacerbation (Acute) GI bleed (Acute) 58-year-old male with past medical history of chronic alcohol abuse who was readmitted on 05/24 with persistent hyponatremia and found to be progressively lethargic with respiratory distress noted in this admission and hence intubated and currently in the ICU. 1. Acute hypoxic respiratory failure, likely secondary to pneumonia/acute metabolic encephalopathy Status post intubation, on mechanical ventilation Will continue on current supportive treatment and protocol, brass buffer following 2. Pneumonia, noted on right mid lung in post intubation chest x-ray, possibly aspiration pneumonia Previous mention of left upper lobe interstitial pneumonia on CT of the chest On vancomycin and Zosyn;Sputum cultures are pending Continue same pending results 3. Hypokalemia/hypophosphatemia, replace, recheck in a.m. 4. Leukopenia, steady trend down from 6.0 to current 2.9, no fevers noted We will continue to monitor, repeat CBCD in a.m. 5. Thrombocytopenia, steady drop in platelet count, not on heparin Will check LFTs, INR, PTT, and repeat CBCD in am 6. Metabolic alkalosis, slightly improved, off Lasix, on gentle IV fluids Decrease IV fluids to 80 mils per hr. This will be adjusted depending on the I's and O's as patient starts tube feeds 7. Acute metabolic encephalopathy, noted during this admission , currently intubated and sedated 8. Hyponatremia, resolved, sodium is 145 today, will continue to monitor 9. Chronic alcohol abuse, admitted with alcohol withdrawal, currently on propofol 10. DVT PPx- SCDs Code Visit Inpatient E&M: 46269 Subs Hosp L3
[2019-05-31] MEDS: Clopidogrel Bisulfate 75 MG Tablet GT (09:34)
[2019-05-31] MEDS: Famotidine 20 MG Tablet GT ×2 (09:34→21:13)
[2019-05-31] MEDS: Chlorhexidine 15 ML PO ×2 (09:35→21:13)
[2019-05-31 09:56] LABS: AST(SGOT) 24 U/L (15-37); Alanine Aminotransfer ALT/SGPT 24 U/L (16-61); Albumin, Serum 2.6 g/dL (3.2-5.0); Alkaline Phosphatase 123 U/L (45-117); Bilirubin, Direct 0.49 mg/dL (0.00-0.30); Globulin 3.8 g/dL (2.2-4.2); Protein, Total 6.4 g/dL (6.4-8.2)
--- NOTE | 2019-05-31 09:59 | CON.PCM_ITS ---
Problem List (1) Hyponatremia Status: Acute (2) Shortness of breath Status: Acute (3) COPD exacerbation Status: Acute (4) Anxiety Status: Chronic (5) Pancreatitis Status: Chronic (6) Alcohol abuse Status: Chronic (7) Hepatitis C Status: Chronic (8) Depression Status: Chronic (9) COPD (chronic obstructive pulmonary disease) Status: Chronic (10) Hyperlipemia Status: Chronic (11) HTN (hypertension) Status: Chronic (12) Colon, diverticulosis Status: Chronic (13) RENETTA (obstructive sleep apnea) Status: Chronic (14) Carotid stenosis Status: Chronic Reason for Consult Date of Consultation: 05/31/19 Reason for Consultation: Respiratory failure History of Present Illness: The patient is a 58 year old M, with past medical history listed below, who presented to [facility] on 05[facility]2019 secondary to generalized weakness. Patient was reportedly recently hospitalized with hyponatremia and COPD exacerbation and was discharged less than 24 hours previously. Patient reportedly was unable to walk or urinate when he originally came to the hospital. Patient had reported generalized weakness without focal neurologic deficits. Patient did not report any constitutional symptoms such as fever, cough, nausea or vomiting on presentation. Patient had reported some wheezing that he associated with his underlying COPD. Patient reportedly was supposed to take steroids, but did not fill the prescription. In the ER, patient was noted to have a sodium of 111. Additional lab work-up was unremarkable except for patient's chronic anemia. Patient was started on normal saline and admitted to the PCU for further management. Patient received IV fluids over the course of his hospitalization, but overnight patient was noted to have lethargy and crackles. Patient has been placed on phenobarbital secondary to alcohol withdrawal and is also receiving Ativan as needed. Patient was not responding full to a painful stimulus and was noted to have shallow breathing. Patient was hypertensive and saturating well on 3 L nasal cannula. Patient did have a history of stage III diastolic dysfunction. Sodium was improved to 142, but potassium was 2.9 and bicarbonate was up to 39. Magnesium was low. Patient was transferred to the intensive care unit and intubated. Following intubation, patient reportedly had copious secretions that were removed. Patient is unable to provide any history overnight, but blood pressures have remained marginal. Patient was transfused 1 unit of packed red blood cells. Oxygenation has been doing well on the ventilator. Patient is being covered with empiric antibiotics secondary to a left upper lobe infiltrate noted on CT scan. Unable to obtain a review of systems secondary to acute condition with intubation and sedation. Past Medical History Past Medical History (Chronic Problems): Chronic Problems Anxiety (Chronic) Anemia (Chronic) Pancreatitis (Chronic) Stroke (Chronic) Alcohol abuse (Chronic) Tobacco abuse (Chronic) Hepatitis C (Chronic) Depression (Chronic) COPD (chronic obstructive pulmonary disease) (Chronic) Hyperlipemia (Chronic) GERD (gastroesophageal reflux disease) (Chronic) HTN (hypertension) (Chronic) Colonic polyp (Chronic) Colon, diverticulosis (Chronic) Nicotine addiction (Chronic) RENETTA (obstructive sleep apnea) (Chronic) Carotid stenosis (Chronic) Allergies No Known Allergies Allergy (Verified 05/08/19 14:54) Home Medications: Ambulatory Orders Medication Instructions Recorded Clopidogrel Bisulfate [Plavix] 75 mg PO DAILY 09/10/16 Folic Acid 1 mg PO DAILY@0800 09/10/16 Pantoprazole Sodium [Protonix] 20 mg PO BID 09/10/16 Rosuvastatin Calcium 40 mg PO QHS 09/23/16 Gabapentin [Neurontin] 600 mg PO QHS 08/17/18 busPIRone [Buspar] 20 mg PO BID 08/17/18 Gabapentin [Neurontin] 300 mg PO DAILY 08/30/18 Budesonide/Formoterol Fumarate 2 puff IH BID 04/25/19 [Symbicort 160-4.5 Mcg Inhaler] Cholecalciferol (VIT D3) [Vitamin 2,000 unit PO DAILY 04/25/19 D3] Lisinopril 5 mg PO DAILY 04/25/19 Magnesium Oxide [Mag-Ox 400] 400 mg PO DAILY 04/25/19 Tizanidine HCl 4 mg PO TID PRN PRN 04/25/19 Citalopram [Celexa] 40 mg PO DAILY 05/25/19 Metoprolol Tartrate [Lopressor 100 mg PO BID 05/25/19 (beta olga)] Prednisone 10 mg PO UD 05/25/19 Surgical History: - - surgery on left foot due to accident, carotid endarterect aziza on the right side. Psychiatric History: Depression Smoking Status: Current every day smoker Tobacco Use: Cigarettes - *Family History Maternal History Items: No pertinent history - denies cancer, cad, DM, stroke Paternal History Items: - - alcoholism, of suicide Review of Systems Unable to obtain accurate/complete ROS d/t: Intubated and sedated Patient Problems: Active and Suspected Problems Hyponatremia (Acute) - Physical Exam Vitals/I&O's: Vital Signs Temp Pulse Resp BP Pulse Ox 35.9 C L 75 14 95/51 L 95 05/31/19 09:00 05/31/19 09:00 05/31/19 09:00 05/31/19 09:00 05/31/19 09:00 Oxygen Flow Rate (L/min) 3 Oxygen Delivery Method Mechanical Ventilator Weight: 75 kg Body Mass Index (BMI) 31.5 Finger Stick Blood Glucose 120 Intake and Output for Last 24 Hours 05/29/19 05/30/19 05/31/19 23:59 23:59 23:59 Intake Total 150.00 / 150.00 1456.34 / 1477.34 2083.80 / 2083.80 Output Total 2375 / 2375 1850 / 2000 350 / 350 Balance -2225.00 / -2225.00 -393.66 / -522.66 1733.80 / 1733.80 General: No apparent distress, - - Intubated and sedated. RASS -3. Good vent synchrony. HEENT: Atraumatic, PERRLA, EOMI, Normocephalic, - - Scleral injection without icterus Oral: Moist Mucosa, No Gingival or Mucosal Lesions/ Ulcerations, - - Tongue laceration Neck: Supple, No JVD, No Nodes, Trachea Midline Lungs: No rales, Diminished, Rhonchi - Improved with suctioning, Wheezes, - - Symmetric expansion. Cardiovascular: Regular rate, Regular Rhythm, Normal S1, Normal S2, No murmurs, No rub noted, No Gallop Abdomen: Bowel Sounds Present, Soft, Non Tender, Distended - Slightly Extremities: No clubbing, No cyanosis, Capillary Refill Less than 3 Seconds, Edema Skin: No rashes, No breakdown Musculoskeletal: No Tenderness to Palpation of Joints or Extremities Lymphatic: No Cervical, Supraclavicular, or Inguinal Adenopathy Neurological: Cranial nerves II-XII grossly intact, Neuro grossly intact Psych/Mental Status: Appropriate, Flat Affect Laboratory Results 05/30/19 13:22: POC Glucose 105 05/30/19 13:59: Specimen Type ART, Sample Site L Radial, pH 7.47 H, Bicarbonate Actual 41.9 H, POC Total CO2 44, Base Excess 18 H, O2 Saturation 95, ABG pCO2 57.4 H, ABG pO2 73 L, Brian Test POS, O2 Delivery Device Nasal Can, Liter Flow 3.0, Blood Gas Notified Whom [facility] , Blood Gas Notified Time 1350 05/30/19 17:45: Sodium 143, Potassium 2.9 L, Chloride 95 L, Carbon Dioxide 42.0 H, Anion Gap 6, BUN 15, Creatinine 1.13, Estim Creat Clear Calc 66.62, Est GFR (MDRD) Af Amer 86, Est GFR (MDRD) Non-Af 71, BUN/Creatinine Ratio 13.3, Glucose 121 H, Calcium 9.5, Phosphorus 3.3, Magnesium 2.6 05/30/19 23:47: Specimen Type ART, Sample Site R Radial, pH 7.51 H, Bicarbonate Actual 37.7 H, POC Total CO2 39, Base Excess 15 H, O2 Saturation 95, O2 % 40, ABG pCO2 47.5 H, ABG pO2 69 L, Brian Test POS, Respiration Rate 14, O2 Delivery Device Vent, Minute Volume 7.00, Vent Mode A-C, Tidal Volume 500, POC PEEP 5, Blood Gas Notified Whom [facility] , Blood Gas Notified Time 23405/31/19 00:00: MRSA (PCR) Cancelled 05/31/19 04:20: WBC 2.9 L, RBC 3.12 L, Hgb 8.6 L, Hct 28.7 L, MCV 92.0, MCH 27.6, MCHC 30.0 L, RDW Std Deviation 54.8 H, RDW Coeff of Donnie 16.1 H, Plt Count 84 L, MPV 10.8 05/31/19 04:20: Sodium 145, Potassium 3.1 L, Chloride 103, Carbon Dioxide 35.0 H , Anion Gap 7, BUN 16, Creatinine 0.94, Estim Creat Clear Calc 80.09, Est GFR (MDRD) Af Amer 106, Est GFR (MDRD) Non-Af 88, BUN/Creatinine Ratio 17.1, Glucose 131 H, Calcium 8.7, Phosphorus 2.3 L, Magnesium 2.2 05/31/19 04:20: Total Bilirubin 1.00, Direct Bilirubin 0.49 H, AST 24, ALT 24, Alkaline Phosphatase 123 H, Total Protein 6.4, Albumin 2.6 L, Globulin 3.8 05/31/19 07:45: MRSA (PCR) Pending Current Medications Albuterol Sulfate (Ventolin Aerosols) 2.5 mg INHALATION Q2H PRN PRN PRN Reason: dyspnea, wheezing Last Admin: 05/28/19 04:02 Dose: 2.5 mg Documented by: Albuterol/Ipratropium (Duoneb) 3 ml INHALATION Q4H.RT [facility] Last Admin: 05/31/19 06:53 Dose: 3 ml Documented by: Atorvastatin Calcium (Lipitor) 80 mg PO QHS [facility] Last Admin: 05/30/19 23:45 Dose: 80 mg Documented by: Chlorhexidine Gluconate () 15 ml PO BID [facility] Last Admin: 05/31/19 09:35 Dose: 15 ml Documented by: Clopidogrel Bisulfate (Plavix) 75 mg GT DAILY [facility] Last Admin: 05/31/19 09:34 Dose: 75 mg Documented by: Famotidine (Pepcid) 20 mg GT BID [facility] Last Admin: 05/31/19 09:34 Dose: 20 mg Documented by: Piperacillin Sod/Tazobactam (Sod 3.375 gm/ Sodium Chloride) 50 mls @ 12.5 mls/hr IV Q8 [facility] Last Admin: 05/31/19 06:01 Dose: 12.5 mls/hr Documented by: Sodium Chloride () 1,000 mls @ 80 mls/hr IV .[id number] [facility] Last Infusion: 05/31/19 08:41 Dose: 80 mls/hr Documented by: Fentanyl () 100 mls @ 2.5 mls/hr IV UD [facility]; Protocol Last Titration: 05/31/19 09:00 Dose: 100 mcg/hr, 10 mls/hr Documented by: Propofol (Diprivan) 1,000 mg in 100 mls @ 4.5 mls/hr CONT INF .Q12H [facility]; Protocol Last Admin: 05/31/19 09:32 Dose: 20 mcg/kg/min, 9 mls/hr Documented by: Vancomycin IV Pharmacy to Dose (1 ea/ Sodium Chloride) 500 mls @ 250 mls/hr IV X1 PRN; Protocol PRN Reason: Rx to Dose Vancomycin HCl 1,250 mg/ (Sodium Chloride) 275 mls @ 167 mls/hr IV Q12H [facility] Potassium Phosphate 30 mm/ (Sodium Chloride) 260 mls @ 42 mls/hr IV X1 ONE Stop: 05/31/19 13:41 Last Admin: 05/31/19 07:54 Dose: 42 mls/hr Documented by: Folic Acid 1 mg/ Sodium (Chloride) 50.2 mls @ 200 mls/hr IV DAILY [facility] Thiamine HCl 200 mg/ Sodium (Chloride) 52 mls @ 200 mls/hr IV DAILY [facility] Lisinopril (Zestril) 5 mg GT DAILY [facility] Last Admin: 05/31/19 09:33 Dose: Not Given Documented by: Methylprednisolone (Solu-Medrol) 40 mg IV Q8 [facility] Last Admin: 05/31/19 06:01 Dose: 40 mg Documented by: Metoprolol Tartrate (Lopressor (Beta Olga)) 100 mg GT BID [facility] Last Admin: 05/31/19 09:34 Dose: Not Given Documented by: Multivitamins (Multivitamin) 1 tablet GT DAILYCM [facility] Nicotine (Nicoderm Cq (Pbkc)) 21 mg TRANSDERM. DAILY [facility] Last Admin: 05/31/19 09:35 Dose: 21 mg Documented by: Clinical Impression(s) from Imaging Studies Chest X-Ray 05/30/19 21:20 IMPRESSION: Endotracheal tube and nasogastric tubes in grossly satisfactory position. Mild new infiltrate in the mid right lung. Electronically Signed: Naveed Moore MD at 21:33 EST , Service support , Assessment/Plan Active and Suspected Problems Hyponatremia (Acute) RECOMMENDATIONS: 1. Apply SCDs for DVT prophylaxis 2. Agree with steroids, bronchodilators and empiric antibiotics pending sputum culture 3. Continue propofol and fentanyl 4. Spontaneous breathing and awakening trials per protocol 5. Okay to initiate tube feeds 6. Okay to hold Plavix IMPRESSIONS: 1. Acute hypoxic respiratory failure Exact etiology is unclear at this time. Patient was receiving sedative medications of phenobarbital and Ativan secondary to alcohol withdrawal. Patient did have copious secretions that may indicate infection. Cannot exclude an element of aspiration pneumonia. Patient is being treated with vancomycin and Zosyn, which is appropriate given he was in the hospital multiple times recently. Cultures are currently pending. Continue with spontaneous breathing and awakening trials per protocol. We will hold phenobarb and Ativan for now. Await improvement in mentation prior to extubation. 2. Pancytopenia Exact etiology is unclear at this time. Patient may have an element of chronic marrow suppression secondary to alcoholism. Continue to monitor blood counts on a daily basis. Cannot exclude the need for transfusion through hospitalization. 3. Hypokalemia/hypophosphatemia/hyponatremia Electrolyte repletion was ordered. We will continue to monitor on a daily basis. Patient does not have any acute renal failure at this time. 4. Metabolic alkalosis/acute metabolic encephalopathy/acute toxic encephalopathy/chronic alcohol abuse/poor history Complicates care, management, recovery and prognosis. IV fluids have been decreased. These can likely be discontinued once patient starts tube feeds. TIME: 40 minutes of critical care time spent addressing patient's acute hypoxic respiratory failure, pancytopenia, electrolyte abnormalities, review of all data and collaboration with care team (6:30 AM to 8:30 AM) Code Visit [id number]: [id number] Critical care first hour
--- NOTE | 2019-05-31 10:05 | CASEMGMT ---
Social Work: Attended ICU rounds. Patient is currently intubated. Patient's friend Yaz who is also listed as DPOAHC is present. Patient has DPOAHC and Living Will scanned into EMR. SW to continue to follow to assist with D/C planning and ETOH use resources. ASIF Hernandez
--- NOTE | 2019-05-31 10:25 | PCM.NTREPORT ---
Nutrition Therapy Report - History Nutrition Services has been consulted to:: Manage enteral nutrition Current diet / nutrition support order:: NPO - Anthropometric Measurements Height:: 5 ft 7 in Weight:: 75 kg Body Mass Index (BMI):: 25.9 - Relevant Labs Relevant Labs:: WBC 2.9 K/mm3 (4.4-11.0) L 05/31/19 04:20 RBC 3.12 M/mm3 (4.6-6.2) L 05/31/19 04:20 Hgb 8.6 g/dL (13.0-16.5) L 05/31/19 04:20 Hct 28.7 % (40-54) L 05/31/19 04:20 MCHC 30.0 g/dL (32-36) L 05/31/19 04:20 RDW Std Deviation 54.8 fl (35.1-43.9) H 05/31/19 04:20 RDW Coeff of Donnie 16.1 % (11.6-14.6) H 05/31/19 04:20 Plt Count 84 K/mm3 (150-450) L 05/31/19 04:20 Neut % (Auto) 83.3 % (47-70) H 05/26/19 06:10 Lymph % (Auto) 5.7 % (19-41) L 05/26/19 06:10 [place] % (Auto) 10.2 % (0-10) H 05/26/19 06:10 Absolute Neuts (auto) 8.4 X10^3/uL (2.0-7.7) H 05/25/19 15:20 Absolute Lymphs (auto) 0.21 X10^3/uL (0.83-4.51) L 05/27/19 05:05 Neutrophils % (Manual) 82 % (47-70) H 05/27/19 05:05 Lymphocytes % (Manual) 9 % (19-41) L 05/27/19 05:05 Sodium 135 mmol/L (136-145) L 05/28/19 05:15 Potassium 3.1 mmol/L (3.5-5.1) L 05/31/19 04:20 Chloride 95 mmol/L (98-107) L 05/30/19 17:45 Carbon Dioxide 35.0 mmol/L (21.0-32.0) H 05/31/19 04:20 Anion Gap 4 (5-15) L 05/30/19 04:50 BUN 19 mg/dL (7-18) H 05/26/19 00:27 Glucose 131 mg/dL (74-106) H 05/31/19 04:20 Serum Osmolality 240 mOsm/KG (275-295) L 05/25/19 15:20 Calcium 8.1 mg/dL (8.5-10.1) L 05/27/19 05:05 Phosphorus 2.3 mg/dL (2.5-4.9) L 05/31/19 04:20 Magnesium 1.4 mg/dL (1.6-2.6) L 05/30/19 05:00 Iron 10 ug/dL (65-175) L 05/27/19 05:05 Iron Saturation 2.5 % (15.0-55.0) L 05/27/19 05:05 Direct Bilirubin 0.49 mg/dL (0.00-0.30) H 05/31/19 04:20 AST 41 U/L (15-37) H 05/27/19 05:05 Alkaline Phosphatase 123 U/L (45-117) H 05/31/19 04:20 Troponin I 0.085 ng/mL (<0.045) H 05/25/19 15:20 B-Natriuretic Peptide 1788.4 pg/mL (0-100) H 05/25/19 15:20 Albumin 2.6 g/dL (3.2-5.0) L 05/31/19 04:20 Albumin/Globulin Ratio 0.8 RATIO (0.9-2.4) L 05/27/19 05:05 - Assessment Food / Nutrition-Related History:: Pt with 15.7 kg wt loss since adm - 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 Overall output>intake and no edema noted at this time suggesting wt loss d/t fluid shift. Currently NPO - pt intubated and sedated with OG in place. Est nutritional needs ~ [id number] jessica / 80-90 gm pro/day. - Nutrition Diagnosis Problem / Etiology / Signs & Symptoms (PES):: Inadequate oral intake r/t on vent AEB NPO status - Nutrition Intervention Nutrition Prescription:: [id number] jessica / 80-90 gm pro / day - Food / Nutrient Delivery Interventions Summary of nutrition intervention:: While intubated, rec Vital AF 1.2 at goal rate 60 cc/hr with 100 cc H2O flush every 4 hours to provide ~ 1728 jessica / 108 gm pro / 1767 cc free water per day. Would start tf at 20 cc/hr and increase by 20 cc/hr every 6-8 hrs as pt tolerates until goal rate achieved. Nutrition support ordered as / adjusted to:: While intubated, rec Vital AF 1.2 at goal rate 60 cc/hr with 100 cc H2O flush every 4 hours to provide ~ 1728 jessica / 108 gm pro / 1767 cc free water per day. Would start tf at 20 cc/hr and increase by 20 cc/hr every 6-8 hrs as pt tolerates until goal rate achieved. Nutrition education provided?: No - MNT Monitoring Further MNT monitoring and evaluation required?: Yes MNT Follow-up in:: 1-2 days - Will follow and monitor for changes in pt nutritional status and will make further nutrition rec as indicated
[2019-05-31 10:43] LABS: M R Staph aureus DNA By PCR Negative (Negative); Probe Check PASS; Specimen Processing Control PASS
[2019-05-31 10:46] LABS: International Normalized Ratio 1.3; Prothrombin Time (Protime)PT. 15.9 SECONDS (11.7-14.9)
[2019-05-31 10:47] LABS: Partial Thromboplast Time 32.4 Seconds (24.1-36.2)
--- NOTE | 2019-05-31 10:49 | PCM.NTREPORT ---
Nutrition Therapy Report - History Nutrition Services has been consulted to:: Manage enteral nutrition Current diet / nutrition support order:: NPO - Anthropometric Measurements Height:: 5 ft 7 in Weight:: 75 kg Body Mass Index (BMI):: 25.9 - Relevant Labs Relevant Labs:: WBC 2.9 K/mm3 (4.4-11.0) L 05/31/19 04:20 RBC 3.12 M/mm3 (4.6-6.2) L 05/31/19 04:20 Hgb 8.6 g/dL (13.0-16.5) L 05/31/19 04:20 Hct 28.7 % (40-54) L 05/31/19 04:20 MCHC 30.0 g/dL (32-36) L 05/31/19 04:20 RDW Std Deviation 54.8 fl (35.1-43.9) H 05/31/19 04:20 RDW Coeff of Donnie 16.1 % (11.6-14.6) H 05/31/19 04:20 Plt Count 84 K/mm3 (150-450) L 05/31/19 04:20 Neut % (Auto) 83.3 % (47-70) H 05/26/19 06:10 Lymph % (Auto) 5.7 % (19-41) L 05/26/19 06:10 [place] % (Auto) 10.2 % (0-10) H 05/26/19 06:10 Absolute Neuts (auto) 8.4 X10^3/uL (2.0-7.7) H 05/25/19 15:20 Absolute Lymphs (auto) 0.21 X10^3/uL (0.83-4.51) L 05/27/19 05:05 Neutrophils % (Manual) 82 % (47-70) H 05/27/19 05:05 Lymphocytes % (Manual) 9 % (19-41) L 05/27/19 05:05 PT 15.9 SECONDS (11.7-14.9) H 05/31/19 10:25 Sodium 135 mmol/L (136-145) L 05/28/19 05:15 Potassium 3.1 mmol/L (3.5-5.1) L 05/31/19 04:20 Chloride 95 mmol/L (98-107) L 05/30/19 17:45 Carbon Dioxide 35.0 mmol/L (21.0-32.0) H 05/31/19 04:20 Anion Gap 4 (5-15) L 05/30/19 04:50 BUN 19 mg/dL (7-18) H 05/26/19 00:27 Glucose 131 mg/dL (74-106) H 05/31/19 04:20 Serum Osmolality 240 mOsm/KG (275-295) L 05/25/19 15:20 Calcium 8.1 mg/dL (8.5-10.1) L 05/27/19 05:05 Phosphorus 2.3 mg/dL (2.5-4.9) L 05/31/19 04:20 Magnesium 1.4 mg/dL (1.6-2.6) L 05/30/19 05:00 Iron 10 ug/dL (65-175) L 05/27/19 05:05 Iron Saturation 2.5 % (15.0-55.0) L 05/27/19 05:05 Direct Bilirubin 0.49 mg/dL (0.00-0.30) H 05/31/19 04:20 AST 41 U/L (15-37) H 05/27/19 05:05 Alkaline Phosphatase 123 U/L (45-117) H 05/31/19 04:20 Troponin I 0.085 ng/mL (<0.045) H 05/25/19 15:20 B-Natriuretic Peptide 1788.4 pg/mL (0-100) H 05/25/19 15:20 Albumin 2.6 g/dL (3.2-5.0) L 05/31/19 04:20 Albumin/Globulin Ratio 0.8 RATIO (0.9-2.4) L 05/27/19 05:05 - Assessment Food / Nutrition-Related History:: Pt with 15.7 kg wt loss since adm - 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 Overall output>intake and no edema noted at this time suggesting wt loss d/t fluid shift. Currently NPO - pt intubated and sedated with OG in place. Est nutritional needs ~ [phone] jessica / 80-90 gm pro/day. - Nutrition Diagnosis Problem / Etiology / Signs & Symptoms (PES):: Inadequate oral intake r/t vent AEB NPO status Evidence of Malnutrition Exists:: No - Nutrition Intervention Nutrition Prescription:: [phone] jessica / 80-90 gm pro - Food / Nutrient Delivery Interventions Summary of nutrition intervention:: start enteral nutrition support Nutrition support ordered as / adjusted to:: While intubated, rec Vital AF 1.2 at goal rate 60 cc/hr with 100 cc H2O flush every 4 hours to provide ~ 1728 jessica / 108 gm pro / 1767 cc free water per day. Would start tf at 20 cc/hr and increase by 20 cc/hr every 6-8 hrs as pt tolerates until goal rate achieved. Rec continue Cardiac/Low cholesterol diet w/ fluid restriction as medically indicated. [ End ] Nutrition education provided?: No - MNT Monitoring Further MNT monitoring and evaluation required?: Yes MNT Follow-up in:: 1-2 days - Will follow and monitor for changes in pt nutritional status and make rec as indicated
[2019-05-31] MEDS: Vital AF 1.2 Cal Liquid 1,000 ML 60 ML GT (14:42)
[2019-05-31] MEDS: 0.9% Normal Saline 1,000 ML 80 ML IV (19:47)
[2019-05-31] MEDS: Atorvastatin Calcium 80 MG Tablet PO (21:13)
[2019-05-31] MEDS: Propofol 10MG/Ml 1,000 MG/100 ML Bottle 2.3 MG CONT INF (21:13)
[2019-06-01] VITALS (44 sets, daily range): BP systolic 89–146; BP diastolic 40–85; PULSE 77–111; RESP 12–19; TEMP 36.6–37.2; O2SAT 95–99
[2019-06-01] MEDS: Ipratropium/Albuterol Sulfate 3 ML AMPUL.NEB INHALATION ×5 (03:19→23:43)
[2019-06-01 04:00] LABS: Absolute Lymphocyte Count 0.32 X10^3/uL (0.83-4.51); Absolute Neutrophil Count 4.9 X10^3/uL (2.0-7.7); Hematocrit 26.4 % (40-54); Hemoglobin 7.8 g/dL (13.0-16.5); Lymphocyte # 0.32 X10^3/ul (4.0); Lymphocyte % 5.8 % (19-41); Mean Corp Hgb Conc 29.5 g/dL (32-36); Mean Corpuscular Hgb 27.6 pg (27.0-32.0); Mean Corpuscular Volume 93.3 fL (80-94); Mean Platelet Vol. 10.7 fl (6.2-12.0); Monocyte% 5.4 % (0-10); NRBC Flagged by Analyzer 0 % (0-5); Neutrophil # 4.86 X10^3/uL (2.7-7.7); Neutrophil % 88.3 % (47-70); POSITIVE COUNT YES; POSITIVE DIFFERENTIAL YES; Platelet Count 98 K/mm3 (150-450); RBC Distribution Width CV 16.8 % (11.6-14.6); RBC Distribution Width SD 57.9 fl (35.1-43.9); Red Blood Count 2.83 M/mm3 (4.6-6.2); White Blood Count 5.5 K/mm3 (4.4-11.0)
[2019-06-01 04:08] LABS: Differential Indicated SCAN CRITERIA MET
[2019-06-01 04:18] LABS: ALB/GLOB Ratio 0.6 RATIO (0.9-2.4); AST(SGOT) 18 U/L (15-37); Alanine Aminotransfer ALT/SGPT 21 U/L (16-61); Albumin, Serum 2.3 g/dL (3.2-5.0); Alkaline Phosphatase 110 U/L (45-117); Anion Gap 6 (5-15); BUN 25 mg/dL (7-18); BUN/Creat Ratio 19.2 RATIO (10-20); Calcium,Total 7.7 mg/dL (8.5-10.1); Chloride 111 mmol/L (98-107); EST Glomerular Filtration Rate 60 mL/min (>60); Est Glom Filt Rate - Afr Amer 73 mL/min (>60); Estimated Creatinine Clearance 57.91 ml/min; Globulin 3.6 g/dL (2.2-4.2); Glucose 166 mg/dL (74-106); Magnesium 2.1 mg/dL (1.6-2.6); Phosphorus 4.3 mg/dL (2.5-4.9); Potassium 3.5 mmol/L (3.5-5.1); Protein, Total 5.9 g/dL (6.4-8.2); Sodium Level 149 mmol/L (136-145)
[2019-06-01 04:47] LABS: Differential Comment SCANNED; Hypochromasia 2+
--- NOTE | 2019-06-01 05:32 | CPS ---
apnea alarm went off 3 times in 5 minutes. even after being off sedation for longer than an hour. Turned pt back on volume control ventilation.
--- NOTE | 2019-06-01 07:23 | PN_ITS ---
Subjective: Patient did okay overnight. Secretions are reportedly improving per respiratory. No bleeding has been reported. Patient has been tolerating tube feeds. Patient had apneic events on spontaneous breathing trial initially and on repeat attempts. Currently we are attempting to hold fentanyl drip. Respiratory rate on the ventilator was also decreased. General: Alert, Cooperative, No apparent distress, - - Following commands better today. Good ventilator synchrony. Apneic events during spontaneous breathing trial noted. HEENT: Atraumatic, PERRLA, EOMI, Normocephalic, - - No scleral icterus or injection noted Oral: Moist Mucosa, No Gingival or Mucosal Lesions/ Ulcerations Neck: Supple, No JVD, No Nodes, Trachea Midline Lungs: No rales, Diminished, Rhonchi - Improved with suctioning, Wheezes - Sporadic, - - Symmetric expansion Cardiovascular: Regular rate, Regular Rhythm, Normal S1, Normal S2, No murmurs, No rub noted, No Gallop Abdomen: Bowel Sounds Present, Soft, Non Tender, Non-Distended Extremities: No clubbing, No cyanosis, Edema Skin: - - No significant change compared to previous Musculoskeletal: No Tenderness to Palpation of Joints or Extremities Lymphatic: No Cervical, Supraclavicular, or Inguinal Adenopathy Neurological: Cranial nerves II-XII grossly intact, Neuro grossly intact, Motor Exam 5/5 strength throughout Psych/Mental Status: Flat Affect Vital Signs Temp Pulse Resp BP Pulse Ox 36.8 C 80 14 129/54 H 96 06/01/19 04:00 06/01/19 06:00 06/01/19 06:00 06/01/19 06:00 06/01/19 06:00 Oxygen Flow Rate (L/min) 3 Oxygen Delivery Method Mechanical Ventilator Weight: 79.5 kg Body Mass Index (BMI) 25.9 Finger Stick Blood Glucose 120 Intake and Output for Last 24 Hours 05/30/19 05/31/19 06/01/19 23:59 23:59 23:59 Intake Total 1456.34 / 1477.34 4925.10 / 5277.40 1611.12 / 1611.12 Output Total 1850 / 2000 600 / 800 400 / 400 Balance -393.66 / -522.66 4325.10 / 4477.40 1211.12 / 1211.12 Labs (Last 48 Hours) 05/30/19 05/30/19 05/30/19 13:22 13:59 17:45 WBC RBC Hgb Hct MCV MCH MCHC RDW Std Deviation RDW Coeff of Donnie Plt Count MPV Immature Gran % (Auto) Neut % (Auto) Lymph % (Auto) [place] % (Auto) Eos % (Auto) Baso % (Auto) Absolute Neuts (auto) Absolute Lymphs (auto) Nucleated RBC % Differential Comment Hypochromasia PT INR APTT Specimen Type ART Sample Site L Radial pH 7.47 H Bicarbonate Actual 41.9 H POC Total CO2 44 Base Excess 18 H O2 Saturation 95 O2 % ABG pCO2 57.4 H ABG pO2 73 L Brian Test POS Respiration Rate O2 Delivery Device Nasal Can Liter Flow 3.0 Minute Volume Vent Mode Tidal Volume POC PEEP Blood Gas Notified Whom [facility] Blood Gas Notified Time 1350 Sodium 143 Potassium 2.9 L Chloride 95 L Carbon Dioxide 42.0 H Anion Gap 6 BUN 15 Creatinine 1.13 Estim Creat Clear Calc 66.62 Est GFR (MDRD) Af Amer 86 Est GFR (MDRD) Non-Af 71 BUN/Creatinine Ratio 13.3 Glucose 121 H Calcium 9.5 Phosphorus 3.3 Magnesium 2.6 Total Bilirubin Direct Bilirubin AST ALT Alkaline Phosphatase Total Protein Albumin Globulin Albumin/Globulin Ratio MRSA (PCR) POC Glucose 105 05/30/19 05/31/19 05/31/19 23:47 00:00 04:20 WBC 2.9 L RBC 3.12 L Hgb 8.6 L Hct 28.7 L MCV 92.0 MCH 27.6 MCHC 30.0 L RDW Std Deviation 54.8 H RDW Coeff of Donnie 16.1 H Plt Count 84 L MPV 10.8 Immature Gran % (Auto) Neut % (Auto) Lymph % (Auto) [place] % (Auto) Eos % (Auto) Baso % (Auto) Absolute Neuts (auto) Absolute Lymphs (auto) Nucleated RBC % Differential Comment Hypochromasia PT INR APTT Specimen Type ART Sample Site R Radial pH 7.51 H Bicarbonate Actual 37.7 H POC Total CO2 39 Base Excess 15 H O2 Saturation 95 O2 % 40 ABG pCO2 47.5 H ABG pO2 69 L Brian Test POS Respiration Rate 14 O2 Delivery Device Vent Liter Flow Minute Volume 7.00 Vent Mode A-C Tidal Volume 500 POC PEEP 5 Blood Gas Notified Whom [facility] Blood Gas Notified Time 2340 Sodium Potassium Chloride Carbon Dioxide Anion Gap BUN Creatinine Estim Creat Clear Calc Est GFR (MDRD) Af Amer Est GFR (MDRD) Non-Af BUN/Creatinine Ratio Glucose Calcium Phosphorus Magnesium Total Bilirubin Direct Bilirubin AST ALT Alkaline Phosphatase Total Protein Albumin Globulin Albumin/Globulin Ratio MRSA (PCR) Cancelled POC Glucose 05/31/19 05/31/19 05/31/19 04:20 04:20 07:45 WBC RBC Hgb Hct MCV MCH MCHC RDW Std Deviation RDW Coeff of Donnie Plt Count MPV Immature Gran % (Auto) Neut % (Auto) Lymph % (Auto) [place] % (Auto) Eos % (Auto) Baso % (Auto) Absolute Neuts (auto) Absolute Lymphs (auto) Nucleated RBC % Differential Comment Hypochromasia PT INR APTT Specimen Type Sample Site pH Bicarbonate Actual POC Total CO2 Base Excess O2 Saturation O2 % ABG pCO2 ABG pO2 Brian Test Respiration Rate O2 Delivery Device Liter Flow Minute Volume Vent Mode Tidal Volume POC PEEP Blood Gas Notified Whom Blood Gas Notified Time Sodium 145 Potassium 3.1 L Chloride 103 Carbon Dioxide 35.0 H Anion Gap 7 BUN 16 Creatinine 0.94 Estim Creat Clear Calc 80.09 Est GFR (MDRD) Af Amer 106 Est GFR (MDRD) Non-Af 88 BUN/Creatinine Ratio 17.1 Glucose 131 H Calcium 8.7 Phosphorus 2.3 L Magnesium 2.2 Total Bilirubin 1.00 Direct Bilirubin 0.49 H AST 24 ALT 24 Alkaline Phosphatase 123 H Total Protein 6.4 Albumin 2.6 L Globulin 3.8 Albumin/Globulin Ratio MRSA (PCR) Negative POC Glucose 05/31/19 06/01/19 06/01/19 10:25 03:50 03:50 WBC 5.5 RBC 2.83 L Hgb 7.8 L Hct 26.4 L MCV 93.3 MCH 27.6 MCHC 29.5 L RDW Std Deviation 57.9 H RDW Coeff of Donnie 16.8 H Plt Count 98 L MPV 10.7 Immature Gran % (Auto) 0.500 Neut % (Auto) 88.3 H Lymph % (Auto) 5.8 L [place] % (Auto) 5.4 Eos % (Auto) 0.0 Baso % (Auto) 0.0 Absolute Neuts (auto) 4.9 Absolute Lymphs (auto) 0.32 L Nucleated RBC % 0 Differential Comment SCANNED Hypochromasia 2+ PT 15.9 H INR 1.3 APTT 32.4 Specimen Type Sample Site pH Bicarbonate Actual POC Total CO2 Base Excess O2 Saturation O2 % ABG pCO2 ABG pO2 Brian Test Respiration Rate O2 Delivery Device Liter Flow Minute Volume Vent Mode Tidal Volume POC PEEP Blood Gas Notified Whom Blood Gas Notified Time Sodium 149 H Potassium 3.5 Chloride 111 H Carbon Dioxide 32.0 Anion Gap 6 BUN 25 H Creatinine 1.30 Estim Creat Clear Calc 57.91 Est GFR (MDRD) Af Amer 73 Est GFR (MDRD) Non-Af 60 BUN/Creatinine Ratio 19.2 Glucose 166 H Calcium 7.7 L Phosphorus 4.3 Magnesium 2.1 Total Bilirubin 0.60 Direct Bilirubin AST 18 ALT 21 Alkaline Phosphatase 110 Total Protein 5.9 L Albumin 2.3 L Globulin 3.6 Albumin/Globulin Ratio 0.6 L MRSA (PCR) POC Glucose Microbiology 05/30/19 21:20 Sputum, Induced/Lukens Gram Stain - Final 05/30/19 21:20 Sputum, Induced/Lukens Respiratory Culture - Preliminary Staphylococcus aureus Medical Necessity - Tobacco Use Smoking Status: Current every day smoker Tobacco Use: Cigarettes Assessment/Plan All Active Problems Hyponatremia (Acute) Elevated troponin (Acute) Chest pain (Acute) Shortness of breath (Acute) COPD exacerbation (Acute) GI bleed (Acute) RECOMMENDATIONS: 1. Continue vancomycin until staph resistance available 2. Agree with steroids, bronchodilators and empiric antibiotics pending sputum culture 3. Continue propofol, but attempt to minimize fentanyl 4. Spontaneous breathing and awakening trials per protocol 5. Decrease respiratory rate to 12 6. Hold on ABG for now, but anticipate ABG after spontaneous breathing trial tomorrow no matter the results IMPRESSIONS: 1. Acute hypoxic respiratory failure Exact etiology is unclear at this time. Patient was receiving sedative medications of phenobarbital and Ativan secondary to alcohol withdrawal. Patient is growing staph aureus from the sputum. Patient is covered broadly, but await the results of sensitivities prior to discontinue elation of vancomycin. Secretions appear to be improving. No fever was noted overnight and blood pressure has been stable. 2. Pancytopenia Exact etiology is unclear at this time. Patient may have an element of chronic marrow suppression secondary to alcoholism. Continue to monitor blood counts on a daily basis. Cannot exclude the need for transfusion through hospitalization. 3. Hypokalemia/hypophosphatemia/hyponatremia Electrolyte repletion was ordered as appropriate. We will continue to monitor on a daily basis. Patient does not have any acute renal failure at this time. Will discontinue IV fluids given hypernatremia this morning. 4. Metabolic alkalosis/acute metabolic encephalopathy/acute toxic encephalopathy/chronic alcohol abuse/poor history Complicates care, management, recovery and prognosis. IV fluids have been discontinued. Continue with tube feeds. TIME: 42 minutes of critical care time spent addressing patient's acute hypoxic respiratory failure, pancytopenia, electrolyte abnormalities, review of all data and collaboration with care team (5:45 AM to 6:45 AM) Code Visit 9xxxx: [id number] Critical care first hour
--- NOTE | 2019-06-01 07:35 | PN_ITS ---
Patient Problems: Active and Suspected Problems Hyponatremia (Acute) Reason for Visit: Follow-up on respiratory failure Subjective: Patient was seen and examined. Patient remains intubated, on mechanical ventilator. He failed his spontaneous awakening trial. EEG done this morning shows generalized slowness. Objective: Physical exam: General: - - Intubated, sedated, on mechanical ventilator HEENT: Atraumatic, PERRLA, EOMI, Normocephalic, Oral: Dry Mucosa Neck: Supple Lungs: Clear to auscultation - anteriorly, Normal air movement Cardiovascular: Regular rate, Regular Rhythm, Normal S1, Normal S2, No murmurs Abdomen: Bowel Sounds Present, Soft, Non Tender, Non-Distended, No Hepato- splenomegaly Extremities: No edema Skin: No rashes, No breakdown Musculoskeletal: No Tenderness to Palpation of Joints or Extremities Lymphatic: No Cervical, Supraclavicular, or Inguinal Adenopathy Neurological: Neuro grossly intact - sedated Psych/Mental Status: Normal Affect, Appropriate Vitals/I&O's: Vital Signs Temp Pulse Resp BP Pulse Ox 98.3 F 80 14 129/54 H 96 06/01/19 04:00 06/01/19 06:00 06/01/19 06:00 06/01/19 06:00 06/01/19 06:00 Oxygen Flow Rate (L/min) 3 Oxygen Delivery Method Mechanical Ventilator Weight: 79.5 kg Body Mass Index (BMI) 25.9 Finger Stick Blood Glucose 120 Intake and Output for Last 24 Hours 05/30/19 05/31/19 06/01/19 23:59 23:59 23:59 Intake Total 1456.34 / 1477.34 4925.10 / 5277.40 1611.12 / 1611.12 Output Total 1850 / 2000 600 / 800 400 / 400 Balance -393.66 / -522.66 4325.10 / 4477.40 1211.12 / 1211.12 Microbiology Past 72 Hours 05/30/19 21:20 Sputum, Induced/Lukens Gram Stain - Final 05/30/19 21:20 Sputum, Induced/Lukens Respiratory Culture - Preliminary Staphylococcus aureus Laboratory Results 05/31/19 04:20: Total Bilirubin 1.00, Direct Bilirubin 0.49 H, AST 24, ALT 24, Alkaline Phosphatase 123 H, Total Protein 6.4, Albumin 2.6 L, Globulin 3.8 05/31/19 07:45: MRSA (PCR) Negative 05/31/19 10:25: PT 15.9 H, INR 1.3, APTT 32.4 06/01/19 03:50: WBC 5.5, RBC 2.83 L, Hgb 7.8 L, Hct 26.4 L, MCV 93.3, MCH 27.6, MCHC 29.5 L, RDW Std Deviation 57.9 H, RDW Coeff of Donnie 16.8 H, Plt Count 98 L, MPV 10.7, Immature Gran % (Auto) 0.500, Neut % (Auto) 88.3 H, Lymph % (Auto) 5.8 L, [place] % (Auto) 5.4, Eos % (Auto) 0.0, Baso % (Auto) 0.0, Absolute Neuts (auto) 4.9, Absolute Lymphs (auto) 0.32 L, Nucleated RBC % 0, Differential Comment SCANNED, Hypochromasia 2+ 06/01/19 03:50: Sodium 149 H, Potassium 3.5, Chloride 111 H, Carbon Dioxide 32.0, Anion Gap 6, BUN 25 H, Creatinine 1.30, Estim Creat Clear Calc 57.91, Est GFR (MDRD) Af Amer 73, Est GFR (MDRD) Non-Af 60, BUN/Creatinine Ratio 19.2, Glucose 166 H, Calcium 7.7 L, Phosphorus 4.3, Magnesium 2.1, Total Bilirubin 0.60, AST 18, ALT 21, Alkaline Phosphatase 110, Total Protein 5.9 L, Albumin 2.3 L, Globulin 3.6, Albumin/Globulin Ratio 0.6 L Current Medications Albuterol Sulfate (Ventolin Aerosols) 2.5 mg INHALATION Q2H PRN PRN PRN Reason: dyspnea, wheezing Last Admin: 05/28/19 04:02 Dose: 2.5 mg Documented by: Albuterol/Ipratropium (Duoneb) 3 ml INHALATION Q4H.RT [place] Last Admin: 06/01/19 03:19 Dose: 3 ml Documented by: Atorvastatin Calcium (Lipitor) 80 mg PO QHS [place] Last Admin: 05/31/19 21:13 Dose: 80 mg Documented by: Chlorhexidine Gluconate () 15 ml PO BID [facility] Last Admin: 05/31/19 21:13 Dose: 15 ml Documented by: Clopidogrel Bisulfate (Plavix) 75 mg GT DAILY [facility] Last Admin: 05/31/19 09:34 Dose: 75 mg Documented by: Famotidine (Pepcid) 20 mg GT BID [facility] Last Admin: 05/31/19 21:13 Dose: 20 mg Documented by: Piperacillin Sod/Tazobactam (Sod 3.375 gm/ Sodium Chloride) 50 mls @ 12.5 mls/hr IV Q8 [facility] Last Admin: 06/01/19 06:29 Dose: 12.5 mls/hr Documented by: Fentanyl () 100 mls @ 2.5 mls/hr IV UD [facility]; Protocol Last Titration: 06/01/19 04:50 Dose: Infused Documented by: Propofol (Diprivan) 1,000 mg in 100 mls @ 4.5 mls/hr CONT INF .Q12H [facility]; Protocol Last Titration: 06/01/19 06:00 Dose: 0 mcg/kg/min, 0 mls/hr Documented by: Vancomycin IV Pharmacy to Dose (1 ea/ Sodium Chloride) 500 mls @ 250 mls/hr IV X1 PRN; Protocol PRN Reason: Rx to Dose Folic Acid 1 mg/ Sodium (Chloride) 50.2 mls @ 200 mls/hr IV DAILY [facility] Last Infusion: 05/31/19 13:25 Dose: Infused Documented by: Thiamine HCl 200 mg/ Sodium (Chloride) 52 mls @ 200 mls/hr IV DAILY [facility] Last Infusion: 05/31/19 12:59 Dose: Infused Documented by: Enteral Nutritional Formula (Vital Af 1.2 Heladio Liquid) 1,000 mls @ 60 mls/hr GT .[id number] [facility] Last Admin: 06/01/19 04:55 Dose: Not Given Documented by: Dextrose () 1,000 mls @ 100 mls/hr IV .Q10H [facility] Lisinopril (Zestril) 5 mg GT DAILY [facility] Last Admin: 05/31/19 09:33 Dose: Not Given Documented by: Methylprednisolone (Solu-Medrol) 40 mg IV Q8 [facility] Last Admin: 06/01/19 06:29 Dose: 40 mg Documented by: Metoprolol Tartrate (Lopressor (Beta Olga)) 100 mg GT BID [facility] Last Admin: 05/31/19 21:02 Dose: Not Given Documented by: [facility] Last Admin: 06/01/19 06:57 Dose: Not Given Documented by: Nicotine (Nicoderm Cq (kc)) 21 mg TRANSDERM. DAILY [facility] Last Admin: 05/31/19 09:35 Dose: 21 mg Documented by: STROKE Vital Signs/Narrative: Vital Signs Temp Pulse Resp BP Pulse Ox 06/01/19 06:00 80 14 129/54 H 96 06/01/19 05:00 83 14 114/50 L 95 06/01/19 04:50 83 14 95 06/01/19 04:00 98.3 F 82 14 113/47 L 97 Medical Necessity - Tobacco Use Smoking Status: Current every day smoker Tobacco Use: Cigarettes Assessment/Plan All Active Problems Hyponatremia (Acute) Elevated troponin (Acute) Chest pain (Acute) Shortness of breath (Acute) COPD exacerbation (Acute) GI bleed (Acute) 58-year-old male with past medical history of chronic alcohol abuse who was readmitted on 05/24 with persistent hyponatremia and found to be progressively lethargic with respiratory distress noted in this admission and hence intubated and currently in the ICU. 1. 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 FLEX, prerenal secondary dehydration versus probable vancomycin side effect Vancomycin discontinued, on IV fluids, will continue to monitor urine output 3. Hypernatremia secondary to dehydration, sodium is 149, increased from 145 We will switch to D5 water, continue to monitor 4. Hyponatremia, resolved 5. Pneumonia, noted on right mid lung in post intubation chest x-ray, possibly aspiration pneumonia Previous mention of left upper lobe interstitial pneumonia on CT of the chest He was on vancomycin and Zosyn;Sputum cultures are positive for staph aureus and GNR MRSA PCR is negative, will discontinue vancomycin continue on Zosyn 6. Leukopenia, improved from 2.9 to 5.5, no fevers noted We will continue to monitor, repeat CBCD in a.m. 7. Thrombocytopenia, improved from 84-98, not on heparin 8. Metabolic alkalosis, slightly improved, off Lasix, on gentle IV fluids 9. Acute metabolic encephalopathy, noted during this admission , currently intubated and sedated 10. Chronic alcohol abuse, admitted with alcohol withdrawal, currently on propofol 11. DVT PPx- SCDs Code Visit Inpatient E&M: 70233 Subs Hosp L3
--- NOTE | 2019-06-01 09:00 | NURSING ---
Ring taken off ring finger on right hand and given to VIRGIL Mukherjee.
[2019-06-01] MEDS: Chlorhexidine 15 ML PO ×2 (09:49→22:22)
[2019-06-01] MEDS: Clopidogrel Bisulfate 75 MG Tablet GT (09:52)
[2019-06-01] MEDS: Famotidine 20 MG Tablet GT ×2 (09:52→22:13)
[2019-06-01] MEDS: Metoprolol Tartrate 50 MG Tablet PO ×2 (09:52→22:14)
--- NOTE | 2019-06-01 09:55 | CASEMGMT ---
RN SAMI Note: participated in ICU interdisciplinary rounds. Pt remains intubated. Plan is for EEG today. Continue IV antibiotics, IV Solu-Medrol, TF. Pt's friend and DPOA was in rounds. States she went to pt's home yesterday- pt had 30 pack beer next to his chair and medication bottles in kitchen but does not know if he takes his medications. CM and SW to continue to follow for dc planning. Tosha CHAVEZN RN ACM
[2019-06-01] MEDS: Propofol 10MG/Ml 1,000 MG/100 ML Bottle 2.3 MG CONT INF (11:45)
[2019-06-01 13:12] LABS: Anion Gap 3 (5-15); BUN 24 mg/dL (7-18); BUN/Creat Ratio 20.5 RATIO (10-20); Calcium,Total 8.1 mg/dL (8.5-10.1); Chloride 114 mmol/L (98-107); Creatinine, Serum 1.17 mg/dL (0.70-1.30); EST Glomerular Filtration Rate 68 mL/min (>60); Est Glom Filt Rate - Afr Amer 82 mL/min (>60); Estimated Creatinine Clearance 64.34 ml/min; Glucose 147 mg/dL (74-106); Potassium 4.2 mmol/L (3.5-5.1); Sodium Level 148 mmol/L (136-145)
[2019-06-01] MEDS: Vital AF 1.2 Cal Liquid 1,000 ML 60 ML GT (19:00)
[2019-06-01] MEDS: Atorvastatin Calcium 80 MG Tablet PO (22:13)
[2019-06-02] VITALS (39 sets, daily range): BP systolic 117–196; BP diastolic 45–101; PULSE 67–97; RESP 10–24; TEMP 36.6–37.4; O2SAT 92–100
[2019-06-02] MEDS: Propofol 10MG/Ml 1,000 MG/100 ML Bottle 2.3 MG CONT INF (00:33)
[2019-06-02] MEDS: Ipratropium/Albuterol Sulfate 3 ML AMPUL.NEB INHALATION ×6 (03:47→23:17)
[2019-06-02 04:18] LABS: Absolute Lymphocyte Count 0.42 X10^3/uL (0.83-4.51); Absolute Neutrophil Count 6.4 X10^3/uL (2.0-7.7); Hematocrit 27.2 % (40-54); Lymphocyte # 0.42 X10^3/ul (4.0); Lymphocyte % 5.9 % (19-41); Mean Corp Hgb Conc 29.4 g/dL (32-36); Mean Corpuscular Volume 95.1 fL (80-94); Mean Platelet Vol. 10.7 fl (6.2-12.0); Monocyte# 0.29 X10^3/uL; NRBC Flagged by Analyzer 0 % (0-5); Neutrophil # 6.39 X10^3/uL (2.7-7.7); Neutrophil % 89.1 % (47-70); POSITIVE COUNT YES; POSITIVE DIFFERENTIAL YES; POSITIVE MORPHOLOGY YES; Platelet Count 92 K/mm3 (150-450); RBC Distribution Width CV 16.7 % (11.6-14.6); RBC Distribution Width SD 58.5 fl (35.1-43.9); Red Blood Count 2.86 M/mm3 (4.6-6.2); White Blood Count 7.2 K/mm3 (4.4-11.0)
[2019-06-02 04:22] LABS: Albumin, Serum 2.3 g/dL (3.2-5.0); BUN 22 mg/dL (7-18); BUN/Creat Ratio 21.2 RATIO (10-20); Calcium,Total 8.3 mg/dL (8.5-10.1); Chloride 108 mmol/L (98-107); Creatinine, Serum 1.04 mg/dL (0.70-1.30); EST Glomerular Filtration Rate 78 mL/min (>60); Est Glom Filt Rate - Afr Amer 94 mL/min (>60); Estimated Creatinine Clearance 72.39 ml/min; Glucose 168 mg/dL (74-106); Phosphorus 3.1 mg/dL (2.5-4.9); Potassium 3.8 mmol/L (3.5-5.1); Sodium Level 144 mmol/L (136-145)
[2019-06-02 04:23] LABS: Differential Indicated SCAN CRITERIA MET
[2019-06-02 04:42] LABS: Differential Comment SCANNED; Hypochromasia 2+
[2019-06-02] MEDS: TITRATION PARAMETER CHANGE 1 EACH IV (05:34)
[2019-06-02 06:36] LABS: Base Excess 6 mmol/L (-2 to +2); Bicarbonate 31.5 mmol/L (22-26); Blood Gas Specimen Type ART; FI02 35; Mode CPAP PS; O2 Delivery Device Vent; PEEP 5; PO2 49 mmHG (75-100); PS 5; SITE R Radial; SO2 82 % (95-99); Time Given 630; Total Carbon Dioxide 33 mmol/L; pH 7.37 (7.35-7.45)
--- NOTE | 2019-06-02 07:05 | NURSING ---
Pt. extubated by respiratory to 2L NC. Pt. tolerated well.
--- NOTE | 2019-06-02 07:14 | PN_ITS ---
Patient Problems: Active and Suspected Problems Hyponatremia (Acute) Reason for Visit: Follow-up on respiratory failure Subjective: Patient was seen and examined. He was extubated this morning, on 2-3L oxygen. Patient remains lethargic and unable to answer review of systems questions. Objective: Physical exam: General: Extubated,lethargic, on 2-3L oxygen HEENT: Atraumatic, PERRLA, EOMI, Normocephalic, Oral: Moist Mucosa Neck: Supple Lungs: Clear to auscultation - anteriorly, Normal air movement Cardiovascular: Regular rate, Regular Rhythm, Normal S1, Normal S2, No murmurs Abdomen: Bowel Sounds Present, Soft, Non Tender, Non-Distended, No Hepato- splenomegaly Extremities: No edema Skin: No rashes, No breakdown Musculoskeletal: No Tenderness to Palpation of Joints or Extremities Lymphatic: No Cervical, Supraclavicular, or Inguinal Adenopathy Neurological: Neuro grossly intact - sedated Psych/Mental Status: Normal Affect, Appropriate Vitals/I&O's: Vital Signs Temp Pulse Resp BP Pulse Ox 98.4 F 89 15 155/75 H 99 06/02/19 06:00 06/02/19 06:00 06/02/19 06:00 06/02/19 06:00 06/02/19 06:00 Oxygen Flow Rate (L/min) 35 Oxygen Delivery Method Mechanical Ventilator Weight: 82.6 kg Body Mass Index (BMI) 25.9 Finger Stick Blood Glucose 120 Intake and Output for Last 24 Hours 05/31/19 06/01/19 06/02/19 23:59 23:59 23:59 Intake Total 4925.10 / 5277.40 4995.76 / 4998.06 838.33 / 838.33 Output Total 600 / 800 1250 / 1250 250 / 250 Balance 4325.10 / 4477.40 3745.76 / 3748.06 588.33 / 588.33 Microbiology Past 72 Hours 05/30/19 21:20 Sputum, Induced/Lukens Gram Stain - Final 05/30/19 21:20 Sputum, Induced/Lukens Respiratory Culture - Preliminary Staphylococcus species Gram negative verito Laboratory Results 06/01/19 09:40: Vancomycin Trough 23.0 H 06/01/19 12:55: Sodium 148 H, Potassium 4.2, Chloride 114 H, Carbon Dioxide 31.0, Anion Gap 3 L, BUN 24 H, Creatinine 1.17, Estim Creat Clear Calc 64.34, Est GFR (MDRD) Af Amer 82, Est GFR (MDRD) Non-Af 68, BUN/Creatinine Ratio 20.5 H , Glucose 147 H, Calcium 8.1 L 06/02/19 04:00: WBC 7.2, RBC 2.86 L, Hgb 8.0 L, Hct 27.2 L, MCV 95.1 H, MCH 28.0, MCHC 29.4 L, RDW Std Deviation 58.5 H, RDW Coeff of Donnie 16.7 H, Plt Count 92 L, MPV 10.7, Immature Gran % (Auto) 1.000 H, Neut % (Auto) 89.1 H, Lymph % (Auto) 5.9 L, [place] % (Auto) 4.0, Eos % (Auto) 0.0, Baso % (Auto) 0.0, Absolute Neuts (auto) 6.4, Absolute Lymphs (auto) 0.42 L, Nucleated RBC % 0, Differential Comment SCANNED, Hypochromasia 2+ 06/02/19 04:00: Sodium 144, Potassium 3.8, Chloride 108 H, Carbon Dioxide 31.0, BUN 22 H, Creatinine 1.04, Estim Creat Clear Calc 72.39, Est GFR (MDRD) Af Amer 94, Est GFR (MDRD) Non-Af 78, BUN/Creatinine Ratio 21.2 H, Glucose 168 H, Calcium 8.3 L, Phosphorus 3.1, Albumin 2.3 L 06/02/19 06:30: Specimen Type ART, Sample Site R Radial, pH 7.37, Bicarbonate Actual 31.5 H, POC Total CO2 33, Base Excess 6 H, O2 Saturation 82 L, O2 % 35, ABG pCO2 55.0 H, ABG pO2 49 L, Brian Test NA, O2 Delivery Device Vent, Vent Mode CPAP PS, POC PEEP 5, POC Pressure Suppt 5, Blood Gas Notified Whom ICU MD, Blood Gas Notified Time 630 Current Medications Albuterol Sulfate (Ventolin Aerosols) 2.5 mg INHALATION Q2H PRN PRN PRN Reason: dyspnea, wheezing Last Admin: 05/28/19 04:02 Dose: 2.5 mg Documented by: Albuterol/Ipratropium (Duoneb) 3 ml INHALATION Q4H.RT [facility] Last Admin: 06/02/19 03:47 Dose: 3 ml Documented by: Atorvastatin Calcium (Lipitor) 80 mg PO QHS [facility] Last Admin: 06/01/19 22:13 Dose: 80 mg Documented by: Chlorhexidine Gluconate () 15 ml PO BID [facility] Last Admin: 06/01/19 22:22 Dose: 15 ml Documented by: Clopidogrel Bisulfate (Plavix) 75 mg GT DAILY [facility] Last Admin: 06/01/19 09:52 Dose: 75 mg Documented by: Famotidine (Pepcid) 20 mg GT BID [facility] Last Admin: 06/01/19 22:13 Dose: 20 mg Documented by: Folic Acid (Folic Acid) 1 mg GT DAILY@0800 [facility] Piperacillin Sod/Tazobactam (Sod 3.375 gm/ Sodium Chloride) 50 mls @ 12.5 mls/hr IV Q8 [facility] Last Admin: 06/02/19 05:18 Dose: 12.5 mls/hr Documented by: Fentanyl () 100 mls @ 2.5 mls/hr IV UD [facility]; Protocol Last Titration: 06/01/19 04:50 Dose: Infused Documented by: Propofol (Diprivan) 1,000 mg in 100 mls @ 4.956 mls/hr CONT INF .Q12H [facility]; Protocol Last Titration: 06/02/19 07:05 Dose: Infused Documented by: Enteral Nutritional Formula (Vital Af 1.2 Heladio Liquid) 1,000 mls @ 60 mls/hr GT .[id number] [facility] Last Admin: 06/01/19 19:00 Dose: 60 mls/hr Documented by: Dextrose () 1,000 mls @ 100 mls/hr IV .Q10H [facility] Last Admin: 06/02/19 03:03 Dose: 100 mls/hr Documented by: Methylprednisolone (Solu-Medrol) 40 mg IV Q8 [facility] Last Admin: 06/02/19 05:20 Dose: 40 mg Documented by: Metoprolol Tartrate (Lopressor (Beta Olga)) 50 mg PO BID [facility] Last Admin: 06/01/19 22:14 Dose: 50 mg Documented by: Multivitamins (Multivitamin) 1 tablet GT DAILYCM [facility] Last Admin: 06/01/19 06:57 Dose: Not Given Documented by: Nicotine (Nicoderm Cq (Pbkc)) 21 mg TRANSDERM. DAILY [facility] Last Admin: 06/01/19 09:51 Dose: 21 mg Documented by: Thiamine HCl (Vitamin B1) 100 mg GT BIDCM [facility] STROKE Vital Signs/Narrative: Vital Signs Temp Pulse Resp BP Pulse Ox 06/02/19 06:00 98.4 F 89 15 155/75 H 99 06/02/19 05:00 98 F 87 14 144/68 H 100 06/02/19 04:00 97.8 F 68 12 137/63 H 98 06/02/19 03:47 67 12 98 06/02/19 03:15 72 Medical Necessity - Tobacco Use Smoking Status: Current every day smoker Tobacco Use: Cigarettes Assessment/Plan All Active Problems Hyponatremia (Acute) Elevated troponin (Acute) Chest pain (Acute) Shortness of breath (Acute) COPD exacerbation (Acute) GI bleed (Acute) 58-year-old male with past medical history of chronic alcohol abuse who was readmitted on 05/24 with persistent hyponatremia and found to be progressively lethargic with respiratory distress noted in this admission and hence intubated and currently in the ICU. 1. Acute hypoxic respiratory failure, likely secondary to pneumonia/acute metabolic encephalopathy Status post intubation, extubated on 06/02/19, on 2-3L oxygen Will continue on current supportive treatment and protocol, waste transportation technician following 2. FLEX, prerenal secondary dehydration versus probable vancomycin side effect, improving Vancomycin discontinued, last vancomycin trough was 23, Urine output picked up; 1250mls/24 hours Continue on IV fluids, will continue to monitor urine output 3. Hypernatremia secondary to dehydration, resolved, continue on D5W 4. Hyponatremia, resolved 5. Pneumonia, noted on right mid lung in post intubation chest x-ray, possibly aspiration pneumonia Previous mention of left upper lobe interstitial pneumonia on CT of the chest He was on vancomycin and Zosyn;Sputum cultures are positive for staph aureus and GNR On Zosyn, will de-escalate to levaquin from tomorrow 6. Leukopenia, resolved 7. Thrombocytopenia, improved, 92 today 8. Metabolic alkalosis, improved, continue on gentle IV fluids 9. Acute metabolic encephalopathy, noted during this admission, will continue to monitor 10. Chronic alcohol abuse, was on withdrawal protocol, will continue on folic acid and multivitamin. 11. DVT PPx- SCDs Code Visit Inpatient E&M: 40813 Subs Hosp L2
--- NOTE | 2019-06-02 09:41 | CASEMGMT ---
BIANCA GALLARDO NOTE: Reviewed [facility] with VIRGIL/Yaz. Yaz voices she wishes for pt not to be transferred. Form signed by Yaz and [facility]. Javan PEREIRA RN CM
--- NOTE | 2019-06-02 10:11 | PCM.PN.INT ---
Subjective: Patient did okay overnight. Patient was able to pass a spontaneous breathing trial this morning and was successfully liberated from the ventilator under my direct supervision. Patient does remain confused and not very interactive, but denies any pain. General: - - RASS -1. Protecting airway. Appears older than stated age. HEENT: Atraumatic, PERRLA, EOMI, Normocephalic, - - Scleral injection noted Oral: Moist Mucosa, No Gingival or Mucosal Lesions/ Ulcerations Neck: Supple, No JVD, No Nodes, Trachea Midline Lungs: No wheeze, No rales, Diminished, Rhonchi, - - Symmetric expansion. Cardiovascular: Regular rate, Regular Rhythm, Normal S1, Normal S2, No murmurs, No rub noted, No Gallop Abdomen: Bowel Sounds Present, Soft, Non Tender, Non-Distended Extremities: No clubbing, No cyanosis, Edema - Trace to 1+ Skin: - - No change compared to previous Musculoskeletal: No Tenderness to Palpation of Joints or Extremities, No Muscle Wasting Lymphatic: No Cervical, Supraclavicular, or Inguinal Adenopathy Neurological: Cranial nerves II-XII grossly intact, Neuro grossly intact Psych/Mental Status: Appropriate, Flat Affect Vital Signs Temp Pulse Resp BP Pulse Ox 36.9 C 89 18 139/79 H 98 06/02/19 06:00 06/02/19 09:00 06/02/19 09:00 06/02/19 09:00 06/02/19 09:00 Oxygen Flow Rate (L/min) 2 Oxygen Delivery Method Room Air Weight: 82.6 kg Body Mass Index (BMI) 25.9 Finger Stick Blood Glucose 120 Intake and Output for Last 24 Hours 05/31/19 06/01/19 06/02/19 23:59 23:59 23:59 Intake Total 4925.10 / 5277.40 4995.76 / 4998.06 838.33 / 838.33 Output Total 600 / 800 1250 / 1250 250 / 250 Balance 4325.10 / 4477.40 3745.76 / 3748.06 588.33 / 588.33 Labs (Last 48 Hours) 05/31/19 05/31/19 06/01/19 07:45 10:25 03:50 WBC 5.5 RBC 2.83 L Hgb 7.8 L Hct 26.4 L MCV 93.3 MCH 27.6 MCHC 29.5 L RDW Std Deviation 57.9 H RDW Coeff of Donnie 16.8 H Plt Count 98 L MPV 10.7 Immature Gran % (Auto) 0.500 Neut % (Auto) 88.3 H Lymph % (Auto) 5.8 L Scott % (Auto) 5.4 Eos % (Auto) 0.0 Baso % (Auto) 0.0 Absolute Neuts (auto) 4.9 Absolute Lymphs (auto) 0.32 L Nucleated RBC % 0 Differential Comment SCANNED Hypochromasia 2+ PT 15.9 H INR 1.3 APTT 32.4 Specimen Type Sample Site pH Bicarbonate Actual POC Total CO2 Base Excess O2 Saturation O2 % ABG pCO2 ABG pO2 Brian Test O2 Delivery Device Vent Mode POC PEEP POC Pressure Suppt Blood Gas Notified Whom Blood Gas Notified Time Sodium Potassium Chloride Carbon Dioxide Anion Gap BUN Creatinine Estim Creat Clear Calc Est GFR (MDRD) Af Amer Est GFR (MDRD) Non-Af BUN/Creatinine Ratio Glucose Calcium Phosphorus Magnesium Total Bilirubin AST ALT Alkaline Phosphatase Total Protein Albumin Globulin Albumin/Globulin Ratio Vancomycin Trough MRSA (PCR) Negative 06/01/19 06/01/19 06/01/19 03:50 09:40 12:55 WBC RBC Hgb Hct MCV MCH MCHC RDW Std Deviation RDW Coeff of Donnie Plt Count MPV Immature Gran % (Auto) Neut % (Auto) Lymph % (Auto) Scott % (Auto) Eos % (Auto) Baso % (Auto) Absolute Neuts (auto) Absolute Lymphs (auto) Nucleated RBC % Differential Comment Hypochromasia PT INR APTT Specimen Type Sample Site pH Bicarbonate Actual POC Total CO2 Base Excess O2 Saturation O2 % ABG pCO2 ABG pO2 Brian Test O2 Delivery Device Vent Mode POC PEEP POC Pressure Suppt Blood Gas Notified Whom Blood Gas Notified Time Sodium 149 H 148 H Potassium 3.5 4.2 Chloride 111 H 114 H Carbon Dioxide 32.0 31.0 Anion Gap 6 3 L BUN 25 H 24 H Creatinine 1.30 1.17 Estim Creat Clear Calc 57.91 64.34 Est GFR (MDRD) Af Amer 73 82 Est GFR (MDRD) Non-Af 60 68 BUN/Creatinine Ratio 19.2 20.5 H Glucose 166 H 147 H Calcium 7.7 L 8.1 L Phosphorus 4.3 Magnesium 2.1 Total Bilirubin 0.60 AST 18 ALT 21 Alkaline Phosphatase 110 Total Protein 5.9 L Albumin 2.3 L Globulin 3.6 Albumin/Globulin Ratio 0.6 L Vancomycin Trough 23.0 H MRSA (PCR) 06/02/19 06/02/19 06/02/19 04:00 04:00 06:30 WBC 7.2 RBC 2.86 L Hgb 8.0 L Hct 27.2 L MCV 95.1 H MCH 28.0 MCHC 29.4 L RDW Std Deviation 58.5 H RDW Coeff of Donnie 16.7 H Plt Count 92 L MPV 10.7 Immature Gran % (Auto) 1.000 H Neut % (Auto) 89.1 H Lymph % (Auto) 5.9 L Scott % (Auto) 4.0 Eos % (Auto) 0.0 Baso % (Auto) 0.0 Absolute Neuts (auto) 6.4 Absolute Lymphs (auto) 0.42 L Nucleated RBC % 0 Differential Comment SCANNED Hypochromasia 2+ PT INR APTT Specimen Type ART Sample Site R Radial pH 7.37 Bicarbonate Actual 31.5 H POC Total CO2 33 Base Excess 6 H O2 Saturation 82 L O2 % 35 ABG pCO2 55.0 H ABG pO2 49 L Brian Test NA O2 Delivery Device Vent Vent Mode CPAP PS POC PEEP 5 POC Pressure Suppt 5 Blood Gas Notified Whom ICU MD Blood Gas Notified Time 630 Sodium 144 Potassium 3.8 Chloride 108 H Carbon Dioxide 31.0 Anion Gap BUN 22 H Creatinine 1.04 Estim Creat Clear Calc 72.39 Est GFR (MDRD) Af Amer 94 Est GFR (MDRD) Non-Af 78 BUN/Creatinine Ratio 21.2 H Glucose 168 H Calcium 8.3 L Phosphorus 3.1 Magnesium Total Bilirubin AST ALT Alkaline Phosphatase Total Protein Albumin 2.3 L Globulin Albumin/Globulin Ratio Vancomycin Trough MRSA (PCR) Microbiology 05/30/19 21:20 Sputum, Induced/Lukens Gram Stain - Final 05/30/19 21:20 Sputum, Induced/Lukens Respiratory Culture - Final Staphylococcus aureus Serratia marcescens Medical Necessity - Tobacco Use Smoking Status: Current every day smoker Tobacco Use: Cigarettes Assessment/Plan All Active Problems Hyponatremia (Acute) Elevated troponin (Acute) Chest pain (Acute) Shortness of breath (Acute) COPD exacerbation (Acute) GI bleed (Acute) RECOMMENDATIONS: 1. Transition to ceftriaxone to complete a 10-day course 2. Agree with decreased steroids, continue bronchodilators 3. Discontinue propofol and fentanyl 4. Increase activity as tolerated 5. Bedside swallow evaluation IMPRESSIONS: 1. Acute hypoxic respiratory failure Exact etiology is unclear at this time. Patient was receiving sedative medications of phenobarbital and Ativan secondary to alcohol withdrawal. Patient is growing staph aureus and Serratia from the sputum. Given sensitivities, transition to ceftriaxone to complete a 10-day course would be appropriate. Secretions appear to be improving. No fever was noted overnight and blood pressure has been stable. 2. Pancytopenia Exact etiology is unclear at this time. Patient may have an element of chronic marrow suppression secondary to alcoholism. Continue to monitor blood counts on a daily basis. No indication for transfusion at this time. 3. Hypokalemia/hypophosphatemia/hyponatremia Electrolyte repletion was ordered as appropriate. We will continue to monitor on a daily basis. Patient does not have any acute renal failure at this time. Await results of swallow evaluation prior to p.o. diet 4. Metabolic alkalosis/acute metabolic encephalopathy/acute toxic encephalopathy/chronic alcohol abuse/poor history Complicates care, management, recovery and prognosis. IV fluids have been discontinued. Continue with tube feeds. TIME: 38 minutes of critical care time spent addressing patient's acute hypoxic respiratory failure, pancytopenia, electrolyte abnormalities, review of all data and collaboration with care team (6 AM to 7:30 AM) Code Visit 9xxxx: [id number] Critical care first hour
[2019-06-02] MEDS: Ceftriaxone 1 GM/50 ML BAG IV (10:25)
[2019-06-02] MEDS: Clopidogrel Bisulfate 75 MG Tablet PO (11:07)
[2019-06-02] MEDS: Metoprolol Tartrate 50 MG Tablet PO ×2 (11:07→21:31)
[2019-06-02] MEDS: Famotidine 20 MG Tablet PO (11:08)
[2019-06-02] MEDS: Multivitamins,Therapeutic Tablet 1 TABLET GT ×2 (11:08)
[2019-06-02] MEDS: busPIRone 15 MG TABLET PO (11:12)
[2019-06-02] MEDS: busPIRone 5 MG Tablet PO (11:12)
[2019-06-02] MEDS: Citalopram 40 MG TABLET PO (11:13)
--- NOTE | 2019-06-02 11:21 | CASEMGMT ---
Social Work Note MALIA participated in ICU Rounds. Pt was extubated this morning, presents with lethargy. Pt's VIRGIL Mukherjee present in room. SW briefly spoke with Yaz. Yaz states she doesn't think pt is able to return home as pt was not able to do the steps at home and she had to carry him up the steps and she is not able to do that again. MALIA informed Yaz that SW will keep following with pt to see how pt does the next couple days. SW informed Yaz that pt will need to be agreeable to go to SNF. SW informed Yaz that pt has also been provided ETOH resources and pt has not been able to commit to any kind of substance abuse treatment at this time. Yaz states understanding. SW to continue to follow. Berta Ramirez [employer], NEW CAR INSPECTOR
[2019-06-02] MEDS: hydrALAZINE 20 MG/ML Vial 10 MG IV (15:04)
[2019-06-03] VITALS (30 sets, daily range): BP systolic 127–207; BP diastolic 56–93; PULSE 76–99; RESP 10–21; TEMP 36.3–36.8; O2SAT 94–99
[2019-06-03] MEDS: Ipratropium/Albuterol Sulfate 3 ML AMPUL.NEB INHALATION ×6 (02:43→23:17)
[2019-06-03] MEDS: hydrALAZINE 20 MG/ML Vial 10 MG IV ×2 (03:07→08:35)
[2019-06-03 04:24] LABS: Absolute Lymphocyte Count 0.48 X10^3/uL (0.83-4.51); Absolute Neutrophil Count 5.9 X10^3/uL (2.0-7.7); Hematocrit 26.7 % (40-54); Hemoglobin 8.1 g/dL (13.0-16.5); Lymphocyte # 0.48 X10^3/ul (4.0); Lymphocyte % 7.1 % (19-41); Mean Corp Hgb Conc 30.3 g/dL (32-36); Mean Corpuscular Hgb 27.3 pg (27.0-32.0); Mean Corpuscular Volume 89.9 fL (80-94); Mean Platelet Vol. 11.3 fl (6.2-12.0); Monocyte# 0.31 X10^3/uL; Monocyte% 4.6 % (0-10); NRBC Flagged by Analyzer 0 % (0-5); Neutrophil # 5.92 X10^3/uL (2.7-7.7); Neutrophil % 87.4 % (47-70); POSITIVE COUNT YES; POSITIVE DIFFERENTIAL YES; Platelet Count 76 K/mm3 (150-450); RBC Distribution Width CV 16.7 % (11.6-14.6); RBC Distribution Width SD 54.4 fl (35.1-43.9); Red Blood Count 2.97 M/mm3 (4.6-6.2); White Blood Count 6.8 K/mm3 (4.4-11.0)
[2019-06-03 04:48] LABS: Albumin, Serum 2.4 g/dL (3.2-5.0); BUN 16 mg/dL (7-18); BUN/Creat Ratio 19.5 RATIO (10-20); Calcium,Total 8.4 mg/dL (8.5-10.1); Chloride 105 mmol/L (98-107); Creatinine, Serum 0.82 mg/dL (0.70-1.30); EST Glomerular Filtration Rate 102 mL/min (>60); Est Glom Filt Rate - Afr Amer 124 mL/min (>60); Estimated Creatinine Clearance 91.81 ml/min; Glucose 127 mg/dL (74-106); Magnesium 1.8 mg/dL (1.6-2.6); Phosphorus 3.1 mg/dL (2.5-4.9); Potassium 3.7 mmol/L (3.5-5.1); Sodium Level 141 mmol/L (136-145)
[2019-06-03 04:54] LABS: Differential Indicated SCAN CRITERIA MET
[2019-06-03 05:08] LABS: Differential Comment SCANNED
[2019-06-03 05:09] LABS: Hypochromasia 1+; Schistocytes RARE; Target Cells 1+
--- NOTE | 2019-06-03 07:09 | PCM.PN.INT ---
Subjective: Patient extubated yesterday. Patient has had some confusion, but is becoming more appropriate with time. Patient has been on 2 L nasal cannula. Patient did have some hypertension overnight, but did not pass bedside swallow evaluation yesterday. Being treated with PRN medications. General: Alert, Cooperative, No apparent distress, - - Some confusion. Redirectable. HEENT: Atraumatic, PERRLA, EOMI, Normocephalic, - - Scleral injection without icterus Oral: Moist Mucosa, No Gingival or Mucosal Lesions/ Ulcerations, - - Poor dentition Neck: Supple, No JVD, No Nodes, Trachea Midline Lungs: No rhonchi, No rales, Diminished, Wheezes, - - Symmetric expansion. Cardiovascular: Regular rate, Regular Rhythm, Normal S1, Normal S2, No murmurs, No rub noted, No Gallop Abdomen: Bowel Sounds Present, Soft, Non Tender, Non-Distended Extremities: No clubbing, No cyanosis, Edema Skin: - - No significant change compared to previous Musculoskeletal: No Tenderness to Palpation of Joints or Extremities Lymphatic: No Cervical, Supraclavicular, or Inguinal Adenopathy Neurological: Cranial nerves II-XII grossly intact, Neuro grossly intact, Motor Exam 5/5 strength throughout Psych/Mental Status: Anxious, Impulsive, Restless Vital Signs Temp Pulse Resp BP Pulse Ox 36.3 C L 92 13 152/71 H 98 06/03/19 04:00 06/03/19 07:00 06/03/19 07:00 06/03/19 07:00 06/03/19 07:00 Oxygen Flow Rate (L/min) 2 Oxygen Delivery Method Nasal Cannula Weight: 82.6 kg Body Mass Index (BMI) 25.9 Finger Stick Blood Glucose 120 Intake and Output for Last 24 Hours 06/01/19 06/02/19 06/03/19 23:59 23:59 23:59 Intake Total 4995.76 / 4998.06 2928.33 / 2928.33 0 / 0 Output Total 1250 / 1250 600 / 600 50 / 50 Balance 3745.76 / 3748.06 2328.33 / 2328.33 -50 / -50 Labs (Last 48 Hours) 06/01/19 06/01/19 06/02/19 09:40 12:55 04:00 WBC 7.2 RBC 2.86 L Hgb 8.0 L Hct 27.2 L MCV 95.1 H MCH 28.0 MCHC 29.4 L RDW Std Deviation 58.5 H RDW Coeff of Donnie 16.7 H Plt Count 92 L MPV 10.7 Immature Gran % (Auto) 1.000 H Neut % (Auto) 89.1 H Lymph % (Auto) 5.9 L [place] % (Auto) 4.0 Eos % (Auto) 0.0 Baso % (Auto) 0.0 Absolute Neuts (auto) 6.4 Absolute Lymphs (auto) 0.42 L Nucleated RBC % 0 Differential Comment SCANNED Hypochromasia 2+ Target Cells Schistocytes Specimen Type Sample Site pH Bicarbonate Actual POC Total CO2 Base Excess O2 Saturation O2 % ABG pCO2 ABG pO2 Brian Test O2 Delivery Device Vent Mode POC PEEP POC Pressure Suppt Blood Gas Notified Whom Blood Gas Notified Time Sodium 148 H Potassium 4.2 Chloride 114 H Carbon Dioxide 31.0 Anion Gap 3 L BUN 24 H Creatinine 1.17 Estim Creat Clear Calc 64.34 Est GFR (MDRD) Af Amer 82 Est GFR (MDRD) Non-Af 68 BUN/Creatinine Ratio 20.5 H Glucose 147 H Calcium 8.1 L Phosphorus Magnesium Albumin Vancomycin Trough 23.0 H 06/02/19 06/02/19 06/03/19 04:00 06:30 04:15 WBC RBC Hgb Hct MCV MCH MCHC RDW Std Deviation RDW Coeff of Donnie Plt Count MPV Immature Gran % (Auto) Neut % (Auto) Lymph % (Auto) [place] % (Auto) Eos % (Auto) Baso % (Auto) Absolute Neuts (auto) Absolute Lymphs (auto) Nucleated RBC % Differential Comment Hypochromasia Target Cells Schistocytes Specimen Type ART Sample Site R Radial pH 7.37 Bicarbonate Actual 31.5 H POC Total CO2 33 Base Excess 6 H O2 Saturation 82 L O2 % 35 ABG pCO2 55.0 H ABG pO2 49 L Brian Test NA O2 Delivery Device Vent Vent Mode CPAP PS POC PEEP 5 POC Pressure Suppt 5 Blood Gas Notified Whom ICU MD Blood Gas Notified Time 630 Sodium 144 141 Potassium 3.8 3.7 Chloride 108 H 105 Carbon Dioxide 31.0 30.0 Anion Gap BUN 22 H 16 Creatinine 1.04 0.82 Estim Creat Clear Calc 72.39 91.81 Est GFR (MDRD) Af Amer 94 124 Est GFR (MDRD) Non-Af 78 102 BUN/Creatinine Ratio 21.2 H 19.5 Glucose 168 H 127 H Calcium 8.3 L 8.4 L Phosphorus 3.1 3.1 Magnesium 1.8 Albumin 2.3 L 2.4 L Vancomycin Trough 06/03/19 04:15 WBC 6.8 RBC 2.97 L Hgb 8.1 L Hct 26.7 L MCV 89.9 D MCH 27.3 MCHC 30.3 L RDW Std Deviation 54.4 H RDW Coeff of Donnie 16.7 H Plt Count 76 L MPV 11.3 Immature Gran % (Auto) 0.900 Neut % (Auto) 87.4 H Lymph % (Auto) 7.1 L [place] % (Auto) 4.6 Eos % (Auto) 0.0 Baso % (Auto) 0.0 Absolute Neuts (auto) 5.9 Absolute Lymphs (auto) 0.48 L Nucleated RBC % 0 Differential Comment SCANNED Hypochromasia 1+ Target Cells 1+ Schistocytes RARE Specimen Type Sample Site pH Bicarbonate Actual POC Total CO2 Base Excess O2 Saturation O2 % ABG pCO2 ABG pO2 Brian Test O2 Delivery Device Vent Mode POC PEEP POC Pressure Suppt Blood Gas Notified Whom Blood Gas Notified Time Sodium Potassium Chloride Carbon Dioxide Anion Gap BUN Creatinine Estim Creat Clear Calc Est GFR (MDRD) Af Amer Est GFR (MDRD) Non-Af BUN/Creatinine Ratio Glucose Calcium Phosphorus Magnesium Albumin Vancomycin Trough Microbiology 05/30/19 21:20 Sputum, Induced/Lukens Gram Stain - Final 05/30/19 21:20 Sputum, Induced/Lukens Respiratory Culture - Final Staphylococcus aureus Serratia marcescens Medical Necessity - Tobacco Use Smoking Status: Current every day smoker Tobacco Use: Cigarettes Assessment/Plan All Active Problems Hyponatremia (Acute) Elevated troponin (Acute) Chest pain (Acute) Shortness of breath (Acute) COPD exacerbation (Acute) GI bleed (Acute) RECOMMENDATIONS: 1. Transition to ceftriaxone to complete a 10-day course 2. Transition to p.o. steroids and wean over the next 12 to 14 days, continue bronchodilators 3. Await bedside swallow evaluation 4. Increase activity as tolerated 5. Okay to leave the intensive care unit from my perspective, but will need close observation IMPRESSIONS: 1. Acute hypoxic respiratory failure Exact etiology is unclear at this time. Patient was receiving sedative medications of phenobarbital and Ativan secondary to alcohol withdrawal. Patient is growing staph aureus and Serratia from the sputum. Given sensitivities, transitioned ceftriaxone to complete a 10-day course of total antibiotics would be appropriate. Secretions appear to be improving. No fever was noted overnight and blood pressure has been stable. Patient currently on 2 L nasal cannula. 2. Pancytopenia Exact etiology is unclear at this time. Patient may have an element of chronic marrow suppression secondary to alcoholism. Continue to monitor blood counts on a daily basis. No indication for transfusion at this time. 3. Hypokalemia/hypophosphatemia/hyponatremia Electrolyte repletion was ordered as appropriate. Labs appear to be appropriate today. We will continue to monitor on a daily basis. Patient does not have any acute renal failure at this time. Await results of swallow evaluation prior to p.o. diet 4. Metabolic alkalosis/acute metabolic encephalopathy/acute toxic encephalopathy/chronic alcohol abuse/poor history Complicates care, management, recovery and prognosis. IV fluids have been discontinued. Continue with tube feeds. Code Visit Inpatient E&M: [id number] [facility] L3
--- NOTE | 2019-06-03 07:26 | PCM.PN.HOSP ---
Patient Problems: Active and Suspected Problems Hyponatremia (Acute) Reason for Visit: Follow-up on respiratory failure Subjective: Patient was seen and examined. He appears lethargic and confused. No other acute events overnight. On room air. Objective: Physical exam: General: alert to self, confused, sleepy HEENT: Atraumatic, PERRLA, EOMI, Normocephalic, Oral: Moist Mucosa Neck: Supple Lungs: Clear to auscultation - anteriorly, Normal air movement Cardiovascular: Regular rate, Regular Rhythm, Normal S1, Normal S2, No murmurs Abdomen: Bowel Sounds Present, Soft, Non Tender, Non-Distended, No Hepato-splenomegaly Extremities: No edema Skin: No rashes, No breakdown Musculoskeletal: No Tenderness to Palpation of Joints or Extremities Lymphatic: No Cervical, Supraclavicular, or Inguinal Adenopathy Neurological: Neuro grossly intact - sedated Psych/Mental Status: Normal Affect, Appropriate Vitals/I&O's: Vital Signs Temp Pulse Resp BP Pulse Ox 97.4 F L 92 13 152/71 H 98 06/03/19 04:00 06/03/19 07:00 06/03/19 07:00 06/03/19 07:00 06/03/19 07:00 Oxygen Flow Rate (L/min) 2 Oxygen Delivery Method Nasal Cannula Weight: 82.6 kg Body Mass Index (BMI) 25.9 Finger Stick Blood Glucose 120 Intake and Output for Last 24 Hours 06/01/19 06/02/19 06/03/19 23:59 23:59 23:59 Intake Total 4995.76 / 4998.06 2928.33 / 2928.33 0 / 0 Output Total 1250 / 1250 600 / 600 50 / 50 Balance 3745.76 / 3748.06 2328.33 / 2328.33 -50 / -50 Microbiology Past 72 Hours 05/30/19 21:20 Sputum, Induced/Lukens Gram Stain - Final 05/30/19 21:20 Sputum, Induced/Lukens Respiratory Culture - Final Staphylococcus aureus Serratia marcescens Laboratory Results 06/03/19 04:15: Sodium 141, Potassium 3.7, Chloride 105, Carbon Dioxide 30.0, BUN 16, Creatinine 0.82, Estim Creat Clear Calc 91.81, Est GFR (MDRD) Af Amer 124, Est GFR (MDRD) Non-Af 102, BUN/Creatinine Ratio 19.5, Glucose 127 H, Calcium 8.4 L, Phosphorus 3.1, Magnesium 1.8, Albumin 2.4 L 06/03/19 04:15: WBC 6.8, RBC 2.97 L, Hgb 8.1 L, Hct 26.7 L, MCV 89.9 D, MCH 27.3, MCHC 30.3 L, RDW Std Deviation 54.4 H, RDW Coeff of Donnie 16.7 H, Plt Count 76 L, MPV 11.3, Immature Gran % (Auto) 0.900, Neut % (Auto) 87.4 H, Lymph % (Auto) 7.1 L, [place] % (Auto) 4.6, Eos % (Auto) 0.0, Baso % (Auto) 0.0, Absolute Neuts (auto) 5.9, Absolute Lymphs (auto) 0.48 L, Nucleated RBC % 0, Differential Comment SCANNED, Hypochromasia 1+, Target Cells 1+, Schistocytes RARE Current Medications Albuterol Sulfate (Ventolin Aerosols) 2.5 mg INHALATION Q2H PRN PRN PRN Reason: dyspnea, wheezing Last Admin: 05/28/19 04:02 Dose: 2.5 mg Documented by: Albuterol/Ipratropium (Duoneb) 3 ml INHALATION Q4H.RT [facility] Last Admin: 06/03/19 02:43 Dose: 3 ml Documented by: Atorvastatin Calcium (Lipitor) 80 mg PO QHS [facility] Last Admin: 06/02/19 21:32 Dose: Not Given Documented by: Buspirone HCl (Buspar) 15 mg PO BID [facility] Last Admin: 06/02/19 21:44 Dose: Not Given Documented by: Buspirone HCl (Buspar) 5 mg PO BID [facility] Last Admin: 06/02/19 21:44 Dose: Not Given Documented by: Chlorhexidine Gluconate () 15 ml PO BID [facility] Last Admin: 06/02/19 21:33 Dose: Not Given Documented by: Citalopram Hydrobromide (Celexa) 40 mg PO DAILY [facility] Last Admin: 06/02/19 11:13 Dose: 40 mg Documented by: Clopidogrel Bisulfate (Plavix) 75 mg PO DAILY [facility] Last Admin: 06/02/19 11:07 Dose: 75 mg Documented by: Famotidine (Pepcid) 20 mg PO BID [facility] Last Admin: 06/02/19 21:33 Dose: Not Given Documented by: Folic Acid (Folic Acid) 1 mg PO DAILY@0800 [facility] Hydralazine HCl (Apresoline Iv) 10 mg IV Q6H PRN PRN PRN Reason: SBP GREATER THAN 170 Last Admin: 06/03/19 03:07 Dose: 10 mg Documented by: Ceftriaxone Sodium (Rocephin) 1 gm in 50 mls @ 100 mls/hr IV Q24 [facility] Last Infusion: 06/02/19 11:19 Dose: Infused Documented by: Labetalol HCl (Trandate) 10 mg IV Q4H PRN PRN PRN Reason: SBP GREATER THAN 170 Metoprolol Tartrate (Lopressor (Beta Olga)) 50 mg PO BID [facility] Last Admin: 06/02/19 21:31 Dose: 50 mg Documented by: Multivit[facility] ([facility]amin) [facility] Last Admin: 06/02/19 11:08 Dose: 1 tablet Documented by: Nicotine (Nicoderm Cq (Pbkc)) 21 mg TRANSDERM. DAILY [facility] Last Admin: 06/02/19 11:08 Dose: 21 mg Documented by: Prednisone () 40 mg PO DAILY@0800 [facility] Thiamine HCl ([facility]itamin B1) [facility] Last Admin: 06/02/19 14:14 Dose: Not Given Documented by: STROKE Vital Signs/Narrative: Vital Signs Temp Pulse Resp BP Pulse Ox 06/03/19 07:00 92 13 152/71 H 98 06/03/19 06:00 96 17 164/84 H 95 06/03/19 05:00 90 11 L 149/56 H 94 06/03/19 04:00 97.4 F L 87 14 127/62 H 99 Medical Necessity - Tobacco Use Smoking Status: Current every day smoker Tobacco Use: Cigarettes Assessment/Plan All Active Problems Hyponatremia (Acute) Elevated troponin (Acute) Chest pain (Acute) Shortness of breath (Acute) COPD exacerbation (Acute) GI bleed (Acute) 58-year-old male with past medical history of chronic alcohol abuse who was readmitted on 05/24 with persistent hyponatremia and found to be progressively lethargic with respiratory distress noted in this admission and hence intubated and currently in the ICU. 1. Acute hypoxic respiratory failure, likely secondary to pneumonia/acute metabolic encephalopathy Status post intubation, extubated on 06/02/19, resolving Will continue on current supportive treatment and protocol, travel occupational therapist following 2. FLEX, prerenal secondary dehydration versus probable vancomycin side effect, resolved Continue on IV fluids, will continue to monitor urine output 3. Hypernatremia secondary to dehydration, resolved, continue on D5W 4. Hyponatremia, resolved 5. Pneumonia, noted on right mid lung in post intubation chest x-ray, possibly aspiration pneumonia Previous mention of left upper lobe interstitial pneumonia on CT of the chest He was on vancomycin and Zosyn;Sputum cultures are positive for staph aureus and GNR He was on Zosyn, de-escalated to levaquin 6. Leukopenia, resolved 7. Thrombocytopenia likely related to alcohol abuse, fluctuates, will monitor 8. Metabolic alkalosis, improved, continue on gentle IV fluids 9. Acute metabolic encephalopathy, persistently confused, will continue to monitor 10. Chronic alcohol abuse, was on withdrawal protocol, will continue on folic acid and multivitamin. 11. DVT PPx- SCDs Code Visit Inpatient E&M: 93724 Subs Hosp L2
[2019-06-03] MEDS: Chlorhexidine 15 ML PO (08:38)
[2019-06-03] MEDS: Metoprolol Tartrate 50 MG Tablet PO ×2 (08:39→10:53)
[2019-06-03] MEDS: Famotidine 20 MG Tablet PO ×2 (08:39→21:18)
--- NOTE | 2019-06-03 10:32 | CASEMGMT ---
RN CM Note: Pt was extubated 06.02.2019, now on 3L NC. Continues to be confused, but becoming more appropriate with time. Did not pass beside swallow eval per Speech Therapy. Ice chips only recommended. Per PT/OT notes, pt is requiring mod/max assist. Recommendation if for SNF on dc. SW updated. Tosha CHAVEZN BIANCA ACM
[2019-06-03] MEDS: busPIRone 15 MG TABLET PO ×2 (10:48→21:18)
[2019-06-03] MEDS: Clopidogrel Bisulfate 75 MG Tablet PO (10:48)
[2019-06-03] MEDS: busPIRone 5 MG Tablet PO ×2 (10:48→21:18)
[2019-06-03] MEDS: predniSONE 20 MG Tablet 40 MG PO (10:48)
[2019-06-03] MEDS: Citalopram 40 MG TABLET PO (10:48)
[2019-06-03] MEDS: levoFLOXacin IV 750 MG/150 ML BAG 100 MG IV (10:49)
[2019-06-03] MEDS: Folic Acid 1 MG Tablet PO (10:55)
[2019-06-03] MEDS: Thiamine Hydrochloride 100 MG Tablet PO (10:56)
--- NOTE | 2019-06-03 12:36 | CASEMGMT ---
Social Work SW met with pt and introduced self and role. Pt lives at home alone and pt states he has 8 steps to enter home. SW discussed with pt d/c plan and that pt was max assist x2 to transfer out of bed and possible need for SNF prior to returning home. Pt initially denying need for SNF stating he needs to get home to his cats. SW continued discussion with pt and how he can manage at home alone as well as get into his home. Pt stating he was in inpt rehab previously and that was alright. SW discussed possibility of TCU with pt and he states that he would think about it and would allow SW to put his name on waiting list, but would not consent to going at this time. SW left pt with list of area SNFs and will followup with pt tomorrow. TAMMI Valle
--- NOTE | 2019-06-03 14:37 | NURSING ---
report called for pcu for transfer to room 101, friend Yaz notified of transfer voiced understanding
[2019-06-03] MEDS: Acetaminophen 325 MG Tablet 650 MG PO (17:46)
[2019-06-03] MEDS: Metoprolol Tartrate 100 MG Tablet PO (21:18)
[2019-06-04] VITALS (18 sets, daily range): BP systolic 146–167; BP diastolic 75–96; PULSE 75–88; RESP 16–20; TEMP 36.4–36.8; O2SAT 94–99
[2019-06-04 06:12] LABS: Albumin, Serum 2.4 g/dL (3.2-5.0); BUN 13 mg/dL (7-18); BUN/Creat Ratio 15.9 RATIO (10-20); Chloride 107 mmol/L (98-107); Creatinine, Serum 0.82 mg/dL (0.70-1.30); EST Glomerular Filtration Rate 103 mL/min (>60); Est Glom Filt Rate - Afr Amer 124 mL/min (>60); Estimated Creatinine Clearance 91.81 ml/min; Glucose 72 mg/dL (74-106); Phosphorus 2.9 mg/dL (2.5-4.9); Potassium 3.5 mmol/L (3.5-5.1); Sodium Level 142 mmol/L (136-145)
[2019-06-04] MEDS: Ipratropium/Albuterol Sulfate 3 ML AMPUL.NEB INHALATION ×5 (07:28→22:59)
--- NOTE | 2019-06-04 07:28 | CPS ---
patient sleeping, PEP therapy not done at this time.
--- NOTE | 2019-06-04 08:24 | PCM.PN.PUL ---
Patient Problems: Active and Suspected Problems Hyponatremia (Acute) Subjective: Patient transferred out of the intensive care unit yesterday. Patient reports subjective improvement in overall condition. No BiPAP rescue or fluid boluses were required overnight. Patient continues to have a cough that is intermittently productive. - Physical Exam Vitals/I&O's: Vital Signs Temp Pulse Resp BP Pulse Ox 36.7 C 84 18 157/83 H 96 06/04/19 03:15 06/04/19 06:54 06/04/19 03:15 06/04/19 03:15 06/04/19 03:15 Oxygen Flow Rate (L/min) 2 Oxygen Delivery Method Nasal Cannula Weight: 78.2 kg Body Mass Index (BMI) 25.9 Finger Stick Blood Glucose 120 Intake and Output for Last 24 Hours 06/02/19 06/03/19 06/04/19 23:59 23:59 23:59 Intake Total 2928.33 / 2928.33 1098.33 / 1098.33 Output Total 600 / 600 50 / 50 100 / 100 Balance 2328.33 / 2328.33 1048.33 / 1048.33 -100 / -100 General: Alert, Oriented x3, Cooperative, No apparent distress, - - No conversational dyspnea. Appears older than stated age. HEENT: Atraumatic, PERRLA, EOMI, Normocephalic, - - No scleral icterus or injection noted Oral: Moist Mucosa, No Gingival or Mucosal Lesions/ Ulcerations Neck: Supple, No JVD, No Nodes, Trachea Midline Lungs: No rhonchi, No rales, Diminished, Wheezes, - - Symmetric expansion. No dullness to percussion. Cardiovascular: Regular rate, Regular Rhythm, Normal S1, Normal S2, No murmurs, No rub noted, No Gallop Abdomen: Bowel Sounds Present, Soft, Non Tender, Non-Distended Extremities: No clubbing, No cyanosis, No edema, Capillary Refill Less than 3 Seconds Skin: No rashes, No breakdown Musculoskeletal: No Tenderness to Palpation of Joints or Extremities Lymphatic: No Cervical, Supraclavicular, or Inguinal Adenopathy Neurological: Cranial nerves II-XII grossly intact, Neuro grossly intact, Motor Exam 5/5 strength throughout Psych/Mental Status: Alert and oriented to time, place, person, mood and affect Microbiology Past 72 Hours 05/30/19 21:20 Sputum, Induced/Lukens Gram Stain - Final 05/30/19 21:20 Sputum, Induced/Lukens Respiratory Culture - Final Staphylococcus aureus Serratia marcescens Laboratory Results 06/04/19 05:33: Sodium 142, Potassium 3.5, Chloride 107, Carbon Dioxide 30.0, BUN 13, Creatinine 0.82, Estim Creat Clear Calc 91.81, Est GFR (MDRD) Af Amer 124, Est GFR (MDRD) Non-Af 103, BUN/Creatinine Ratio 15.9, Glucose 72 L, Calcium 9.0, Phosphorus 2.9, Albumin 2.4 L Current Medications Acetaminophen (Tylenol) 650 mg PO Q6H PRN PRN PRN Reason: Pain Score 1-10/10 Last Admin: 06/03/19 17:46 Dose: 650 mg Documented by: Albuterol Sulfate (Ventolin Aerosols) 2.5 mg INHALATION Q2H PRN PRN PRN Reason: dyspnea, wheezing Last Admin: 05/28/19 04:02 Dose: 2.5 mg Documented by: Albuterol/Ipratropium (Duoneb) 3 ml INHALATION Q4H.RT [facility] Last Admin: 06/04/19 03:03 Dose: Not Given Documented by: Atorvastatin Calcium (Lipitor) 80 mg PO QHS [facility] Last Admin: 06/03/19 21:22 Dose: Not Given Documented by: Buspirone HCl (Buspar) 15 mg PO BID [facility] Last Admin: 06/03/19 21:18 Dose: 15 mg Documented by: Buspirone HCl (Buspar) 5 mg PO BID [facility] Last Admin: 06/03/19 21:18 Dose: 5 mg Documented by: Citalopram Hydrobromide (Celexa) 40 mg PO DAILY [facility] Last Admin: 06/03/19 10:48 Dose: 40 mg Documented by: Clopidogrel Bisulfate (Plavix) 75 mg PO DAILY [facility] Last Admin: 06/03/19 10:48 Dose: 75 mg Documented by: Famotidine (Pepcid) 20 mg PO BID [facility] Last Admin: 06/03/19 21:18 Dose: 20 mg Documented by: Folic Acid (Folic Acid) 1 mg PO DAILY@0800 [facility] Last Admin: 06/03/19 10:55 Dose: 1 mg Documented by: Hydralazine HCl (Apresoline Iv) 10 mg IV Q6H PRN PRN PRN Reason: SBP GREATER THAN 170 Last Admin: 06/03/19 08:35 Dose: 10 mg Documented by: Levofloxacin (Levaquin Iv) 750 mg in 150 mls @ 100 mls/hr IV Q24 [facility] Last Infusion: 06/03/19 11:48 Dose: 0 mls/hr Documented by: Labetalol HCl (Trandate) 10 mg IV Q4H PRN PRN PRN Reason: SBP GREATER THAN 170 Metoprolol Tartrate (Lopressor (Beta Olga)) 100 mg PO BID [facility] Last Admin: 06/03/19 21:18 Dose: 100 mg Documented by: Metoprolol Tartrate (Lopressor (Beta Olga)) 50 mg PO X1 ONE Stop: 06/04/19 10:41 Last Admin: 06/03/19 10:53 Dose: 50 mg Documented by: Multivitamins (Multivitamin) [facility] Last Admin: 06/02/19 11:08 Dose: 1 tablet Documented by: Nicotine (Nicoderm Cq (Pbkc)) 21 mg TRANSDERM. DAILY [facility] Last Admin: 06/03/19 08:39 Dose: 21 mg Documented by: Prednisone () 40 mg PO DAILY@0800 [facility] Last Admin: 06/03/19 10:48 Dose: 40 mg Documented by: Thiamine HCl (Vitamin B1) [facility] Last Admin: 06/03/19 17:40 Dose: Not Given Documented by: Medical Necessity - Tobacco Use Smoking Status: Current every day smoker Tobacco Use: Cigarettes Assessment/Plan All Active Problems Hyponatremia (Acute) Elevated troponin (Acute) Chest pain (Acute) Shortness of breath (Acute) COPD exacerbation (Acute) GI bleed (Acute) RECOMMENDATIONS: 1. Consider transition to p.o. Levaquin to complete a 10-day course 2. Continue p.o. steroids and wean over the next 12 to 14 days, continue bronchodilators 3. Await bedside swallow evaluation 4. Increase activity as tolerated 5. Discharge planning IMPRESSIONS: 1. Acute hypoxic respiratory failure Exact etiology is unclear at this time. Patient was receiving sedative medications of phenobarbital and Ativan secondary to alcohol withdrawal. Patient is growing staph aureus and Serratia from the sputum, so pneumonia is a probable contributor. Patient tolerating p.o., so transition to p.o. Levaquin would be appropriate. Secretions appear to be improving. No fever was noted overnight and blood pressure has been stable. Patient currently on 2 L nasal cannula. Walking oximetry prior to discharge 2. Pancytopenia Exact etiology is unclear at this time. Patient may have an element of chronic marrow suppression secondary to alcoholism. Continue to monitor blood counts on a daily basis. No indication for transfusion at this time. 3. Hypokalemia/hypophosphatemia/hyponatremia Electrolyte repletion was ordered as appropriate. Labs appear to be appropriate today. We will continue to monitor on a daily basis. Patient does not have any acute renal failure at this time. 4. Metabolic alkalosis/acute metabolic encephalopathy/acute toxic encephalopathy/chronic alcohol abuse/poor history Complicates care, management, recovery and prognosis. IV fluids have been discontinued. Code Visit Inpatient E&M: 51238 Subs Hosp L2
[2019-06-04] MEDS: Multivitamins,Therapeutic Tablet 1 TABLET GT (08:30)
[2019-06-04] MEDS: predniSONE 20 MG Tablet 40 MG PO (08:30)
[2019-06-04] MEDS: Acetaminophen 325 MG Tablet 650 MG PO ×2 (08:30→14:38)
[2019-06-04] MEDS: busPIRone 15 MG TABLET PO ×2 (08:31→21:37)
[2019-06-04] MEDS: Thiamine Hydrochloride 100 MG Tablet PO ×2 (08:31→17:28)
[2019-06-04] MEDS: busPIRone 5 MG Tablet PO ×2 (08:31→21:37)
[2019-06-04] MEDS: Citalopram 40 MG TABLET PO (08:31)
[2019-06-04] MEDS: levoFLOXacin IV 750 MG/150 ML BAG 150 MG IV (08:32)
[2019-06-04] MEDS: Famotidine 20 MG Tablet PO ×2 (08:33→21:37)
[2019-06-04] MEDS: Metoprolol Tartrate 100 MG Tablet PO ×2 (08:33→21:38)
[2019-06-04] MEDS: Folic Acid 1 MG Tablet PO (08:34)
[2019-06-04] MEDS: Clopidogrel Bisulfate 75 MG Tablet PO (08:34)
--- NOTE | 2019-06-04 14:10 | CASEMGMT ---
SW spoke with patient about going somewhere for rehab before going home. SW gave him the list of SNF's he was given yesterday. He will look at the list. He is possibly open to the 4th floor rehab unit. MALIA spoke with Tamie in rehab and they will accept patient. MALIA spoke with patient and he is in agreement with going to [facility] Inpatient Rehab Unit. MALIA notified physician and RN. Plan: [facility] 4th floor inpatient rehab unit on Friday. [place] BLANK MSW
[2019-06-04] MEDS: hydrALAZINE 20 MG/ML Vial 10 MG IV (17:28)
--- NOTE | 2019-06-04 17:54 | PCM.PN.HOSP ---
Patient Problems: Active and Suspected Problems Hyponatremia (Acute) Reason for Visit: Follow-up on respiratory failure Subjective: Patient was seen and examined. He is much more awake. He denied any new complaints. We discussed discharge to acute rehab or subacute rehab. Objective: Physical exam: General: alert x3, looks much interactive, on 2 L of oxygen HEENT: Atraumatic, PERRLA, EOMI, Normocephalic, Oral: Moist Mucosa Neck: Supple Lungs: Clear to auscultation Cardiovascular: Regular rate, Regular Rhythm, Normal S1, Normal S2, No murmurs Abdomen: Bowel Sounds Present, Soft, Non Tender, Non-Distended, No Hepato-splenomegaly Extremities: No edema Skin: No rashes, No breakdown Musculoskeletal: No Tenderness to Palpation of Joints or Extremities Lymphatic: No Cervical, Supraclavicular, or Inguinal Adenopathy Neurological: Neuro grossly intact - sedated Psych/Mental Status: Normal Affect, Appropriate Vitals/I&O's: Vital Signs Temp Pulse Resp BP Pulse Ox 98.1 F 88 16 167/96 H 97 06/04/19 17:17 06/04/19 17:28 06/04/19 17:17 06/04/19 17:17 06/04/19 17:17 Oxygen Flow Rate (L/min) 2 Oxygen Delivery Method Nasal Cannula Weight: 78.2 kg Body Mass Index (BMI) 25.9 Finger Stick Blood Glucose 120 Intake and Output for Last 24 Hours 06/02/19 06/03/19 06/04/19 23:59 23:59 23:59 Intake Total 2928.33 / 2928.33 1098.33 / 1098.33 280 / 280 Output Total 600 / 600 50 / 50 100 / 100 Balance 2328.33 / 2328.33 1048.33 / 1048.33 180 / 180 Microbiology Past 72 Hours 05/30/19 21:20 Sputum, Induced/Lukens Gram Stain - Final 05/30/19 21:20 Sputum, Induced/Lukens Respiratory Culture - Final Staphylococcus aureus Serratia marcescens Laboratory Results 06/04/19 05:33: Sodium 142, Potassium 3.5, Chloride 107, Carbon Dioxide 30.0, BUN 13, Creatinine 0.82, Estim Creat Clear Calc 91.81, Est GFR (MDRD) Af Amer 124, Est GFR (MDRD) Non-Af 103, BUN/Creatinine Ratio 15.9, Glucose 72 L, Calcium 9.0, Phosphorus 2.9, Albumin 2.4 L Current Medications Acetaminophen (Tylenol) 650 mg PO Q6H PRN PRN PRN Reason: Pain Score 1-10/10 Last Admin: 06/04/19 14:38 Dose: 650 mg Documented by: Albuterol Sulfate (Ventolin Aerosols) 2.5 mg INHALATION Q2H PRN PRN PRN Reason: dyspnea, wheezing Last Admin: 05/28/19 04:02 Dose: 2.5 mg Documented by: Albuterol/Ipratropium (Duoneb) 3 ml INHALATION Q4H.RT [facility] Last Admin: 06/04/19 15:07 Dose: 3 ml Documented by: Atorvastatin Calcium (Lipitor) 80 mg PO QHS [facility] Last Admin: 06/03/19 21:22 Dose: Not Given Documented by: Buspirone HCl (Buspar) 15 mg PO BID [facility] Last Admin: 06/04/19 08:31 Dose: 15 mg Documented by: Buspirone HCl (Buspar) 5 mg PO BID [facility] Last Admin: 06/04/19 08:31 Dose: 5 mg Documented by: Citalopram Hydrobromide (Celexa) 40 mg PO DAILY [facility] Last Admin: 06/04/19 08:31 Dose: 40 mg Documented by: Clopidogrel Bisulfate (Plavix) 75 mg PO DAILY [facility] Last Admin: 06/04/19 08:34 Dose: 75 mg Documented by: Famotidine (Pepcid) 20 mg PO BID [facility] Last Admin: 06/04/19 08:33 Dose: 20 mg Documented by: Folic Acid (Folic Acid) 1 mg PO DAILY@0800 [facility] Last Admin: 06/04/19 08:34 Dose: 1 mg Documented by: Hydralazine HCl (Apresoline Iv) 10 mg IV Q6H PRN PRN PRN Reason: SBP GREATER THAN 170 Last Admin: 06/04/19 17:28 Dose: 10 mg Documented by: Levofloxacin (Levaquin Iv) 750 mg in 150 mls @ 100 mls/hr IV Q24 [facility] Last Infusion: 06/04/19 10:27 Dose: Infused Documented by: Labetalol HCl (Trandate) 10 mg IV Q4H PRN PRN PRN Reason: SBP GREATER THAN 170 Metoprolol Tartrate (Lopressor (Beta Olga)) 100 mg PO BID [facility] Last Admin: 06/04/19 08:33 Dose: 100 mg Documented by: [facility]it[facility] ([facility]itamin) [facility] Last Admin: 06/04/19 08:30 Dose: 1 tablet Documented by: Nicotine (Nicoderm Cq (Pbkc)) 21 mg TRANSDERM. DAILY [facility] Last Admin: 06/04/19 08:33 Dose: 21 mg Documented by: Prednisone () 40 mg PO DAILY@0800 [facility] Last Admin: 06/04/19 08:30 Dose: 40 mg Documented by: Thiamine HCl ([facility]itamin B1) [facility] Last Admin: 06/04/19 17:28 Dose: 100 mg Documented by: STROKE Vital Signs/Narrative: Vital Signs Temp Pulse Resp BP Pulse Ox 06/04/19 17:28 88 06/04/19 17:17 98.1 F 88 16 167/96 H 97 06/04/19 15:05 75 16 98 06/04/19 15:00 80 06/04/19 14:29 98 F 78 18 146/83 H 95 Medical Necessity - Tobacco Use Smoking Status: Current every day smoker Tobacco Use: Cigarettes Assessment/Plan All Active Problems Hyponatremia (Acute) Elevated troponin (Acute) Chest pain (Acute) Shortness of breath (Acute) COPD exacerbation (Acute) GI bleed (Acute) 58-year-old male with past medical history of chronic alcohol abuse who was readmitted on 05/24 with persistent hyponatremia and found to be progressively lethargic with respiratory distress noted in this admission and hence intubated and currently in the ICU. 1. Acute hypoxic respiratory failure, likely secondary to pneumonia/acute metabolic encephalopathy Status post intubation, extubated on 06/02/19, resolving, currently on 2 L of oxygen Will continue on current supportive treatment and protocol, customer solutions representative following 2. FLEX, prerenal secondary dehydration versus probable vancomycin side effect, resolved Repeat blood work in a.m. 3. Hypernatremia secondary to dehydration, resolved, continue on D5W 4. Hypertension, uncontrolled, on metoprolol 100 mg p.o. twice daily as well as PRN Hydralazine and labetalol Will add lisinopril 20 mg p.o. daily, repeat blood work in a.m. 5. MSSA Pneumonia, noted on right mid lung in post intubation chest x-ray, possibly aspiration pneumonia Previous mention of left upper lobe interstitial pneumonia on CT of the chest Currently on IV Levaquin, will switch to oral Levaquin from tomorrow Repeat chest x-ray prior to discharge 6. Hypoxia secondary to #5 7. Leukopenia, resolved 8. Thrombocytopenia likely related to alcohol abuse, fluctuates, will monitor 9. Metabolic alkalosis,resolved 10. Acute metabolic encephalopathy, persistently confused, will continue to monitor 11. Chronic alcohol abuse, was on withdrawal protocol, will continue on folic acid and multivitamin. 12. DVT PPx- SCDs Code Visit Inpatient E&M: 28362 Subs Hosp L2
[2019-06-04] MEDS: Lisinopril 20 MG Tablet PO (18:22)
[2019-06-04] MEDS: Atorvastatin Calcium 80 MG Tablet PO (21:37)
[2019-06-05] VITALS (7 sets, daily range): BP systolic 152–171; BP diastolic 79–85; PULSE 79–89; RESP 16–18; TEMP 36.6–37.2; O2SAT 91–98
[2019-06-05] MEDS: Ipratropium/Albuterol Sulfate 3 ML AMPUL.NEB INHALATION ×3 (02:16→11:03)
[2019-06-05] MEDS: Acetaminophen 325 MG Tablet 650 MG PO (04:07)
[2019-06-05 06:40] LABS: Absolute Lymphocyte Count 0.89 X10^3/uL (0.83-4.51); Absolute Neutrophil Count 5.7 X10^3/uL (2.0-7.7); Eosinophil# 0.04 X10^3/uL; Eosinophils% 0.6 % (0-5); Hematocrit 27.4 % (40-54); Hemoglobin 8.4 g/dL (13.0-16.5); Lymphocyte # 0.89 X10^3/ul (4.0); Lymphocyte % 12.5 % (19-41); Mean Corp Hgb Conc 30.7 g/dL (32-36); Mean Corpuscular Hgb 27.5 pg (27.0-32.0); Mean Corpuscular Volume 89.8 fL (80-94); Mean Platelet Vol. 11.2 fl (6.2-12.0); Monocyte# 0.45 X10^3/uL; Monocyte% 6.3 % (0-10); NRBC Flagged by Analyzer 0 % (0-5); Neutrophil % 79.8 % (47-70); POSITIVE COUNT YES; Platelet Count 69 K/mm3 (150-450); RBC Distribution Width SD 55.6 fl (35.1-43.9); Red Blood Count 3.05 M/mm3 (4.6-6.2); White Blood Count 7.1 K/mm3 (4.4-11.0)
[2019-06-05 07:10] LABS: ALB/GLOB Ratio 0.7 RATIO (0.9-2.4); AST(SGOT) 34 U/L (15-37); Alanine Aminotransfer ALT/SGPT 34 U/L (16-61); Albumin, Serum 2.3 g/dL (3.2-5.0); Alkaline Phosphatase 101 U/L (45-117); Anion Gap 6 (5-15); BUN 12 mg/dL (7-18); Calcium,Total 8.9 mg/dL (8.5-10.1); Chloride 108 mmol/L (98-107); Creatinine, Serum 0.86 mg/dL (0.70-1.30); EST Glomerular Filtration Rate 97 mL/min (>60); Est Glom Filt Rate - Afr Amer 118 mL/min (>60); Estimated Creatinine Clearance 87.54 ml/min; Globulin 3.3 g/dL (2.2-4.2); Glucose 71 mg/dL (74-106); Potassium 3.3 mmol/L (3.5-5.1); Protein, Total 5.6 g/dL (6.4-8.2); Sodium Level 142 mmol/L (136-145)
[2019-06-05] MEDS: Folic Acid 1 MG Tablet PO (09:01)
[2019-06-05] MEDS: Multivitamins,Therapeutic Tablet 1 TABLET GT (09:01)
[2019-06-05] MEDS: predniSONE 20 MG Tablet 40 MG PO (09:02)
[2019-06-05] MEDS: Thiamine Hydrochloride 100 MG Tablet PO (09:03)
[2019-06-05] MEDS: busPIRone 15 MG TABLET PO (09:04)
[2019-06-05] MEDS: busPIRone 5 MG Tablet PO (09:07)
[2019-06-05] MEDS: Citalopram 40 MG TABLET PO (09:07)
[2019-06-05] MEDS: Metoprolol Tartrate 100 MG Tablet PO (09:12)
[2019-06-05] MEDS: Famotidine 20 MG Tablet PO (09:14)
[2019-06-05] MEDS: Lisinopril 20 MG Tablet PO (09:15)
[2019-06-05] MEDS: Clopidogrel Bisulfate 75 MG Tablet PO (09:15)
--- NOTE | 2019-06-05 09:21 | DCINST_ITS ---
- Discharge Diagnoses Current Active Problems: Current Active and Chronic Problems Hyponatremia (Acute) Reason(s) for Visit for Discharge Instructions: Alcohol withdrawal You will use the following diet at home:: Other - uree textures, honey thick liquids with aspiration precautions for TOTAL FEED, LIQUIDS BY TSP ONLY, FEED ONLY WHEN FULLY ALERT, frequent oral care, small bites/sips, slow rate, HOB at 90 degrees, discontinue feeding if increased s/s of aspiration at meals. Your food should be the consistency of: Puree Your liquids should be the consistency of: Honey Thick Discharge Activity: Return to Normal Activity Weight Bearing Status: Weight bearing as tolerated Allergies/Adverse Reactions: Allergies No Known Allergies Allergy (Verified 05/08/19 14:54) Medications to take at Discharge Clopidogrel Bisulfate [Plavix] 75 mg PO DAILY 09/10/16 Folic Acid 1 mg PO DAILY@0800 09/10/16 Pantoprazole Sodium [Protonix] 20 mg PO BID 09/10/16 busPIRone [Buspar] 20 mg PO BID 08/17/18 Budesonide/Formoterol Fumarate [Symbicort 160-4.5 Mcg Inhaler] 2 puff IH BID 04/25/19 Cholecalciferol (VIT D3) [Vitamin D3] 2,000 unit PO DAILY 04/25/19 Magnesium Oxide [Mag-Ox 400] 400 mg PO DAILY 04/25/19 Tizanidine HCl 4 mg PO TID PRN PRN 04/25/19 Citalopram [Celexa] 40 mg PO DAILY 05/25/19 Metoprolol Tartrate [Lopressor (beta ran)] 100 mg PO BID 05/25/19 Prednisone 10 mg PO UD 05/25/19 Acetaminophen [Tylenol Tablet] 650 mg PO Q6H PRN PRN tab 06/05/19 Albuterol Aerosols [Ventolin Aerosols] 2.5 mg INHALATION Q2H PRN PRN vial.neb. 06/05/19 Atorvastatin Calcium [Lipitor] 80 mg PO QHS tab 06/05/19 Famotidine [Pepcid] 20 mg PO BID tab 06/05/19 Folic Acid 1 mg PO DAILY@0800 tab 06/05/19 Lisinopril [Zestril] 20 mg PO DAILY tab 06/05/19 Multivitamins,Therapeutic [Multivitamin] 1 tab GT DAILYCM tab 06/05/19 Nicotine [Nicoderm Cq] 21 mg TRANSDERM. DAILY patch 06/05/19 Primary Care Physician: [facility] [Primary Care Provider] - Test Results: Test results from this visit will be discussed in further detail at your follow- up appointment, if applicable. Proposed Discharge Date: 06/05/19
[2019-06-05] MEDS: amLODIPine 5 MG Tablet PO (11:12)
--- NOTE | 2019-06-05 11:55 | NURSING ---
verbal report called to melvin espinal in patient rehab
--- NOTE | 2019-06-14 10:35 | PCM.DC.SUM ---
Discharge Date and Diagnosis - Problem List Patient Problems: Active and Suspected Problems Debility (Acute) Debility Secondary to chronic alcoholism, recent PNA and acute exacerbation COPD with intubation Metabolic encephalopathy (Acute) Thrombocytopenia (Acute) Suspect secondary to the toxic effects of EtOH on bone marrow Pneumonia (Acute) MSSA and Serratia Marcesans - more likely than not due to aspiration Diarrhea (Acute) suspect due to stool softeners Date of Admission: 06/05/19 Date of Discharge: 06/05/19 - Primary Discharge Diagnosis Active and Suspected Problems Acute hypoxic respiratory failure MSSA pneumonia Acute kidney injury Debility secondary to chronic alcoholism, recent pneumonia, acute COPD exacerbation Leukopenia Thrombocytopenia Metabolic alkalosis Acute metabolic encephalopathy - Secondary Discharge Diagnosis Chronic Problems Iron deficiency (Chronic) Grade III diastolic dysfunction (Chronic) Pulmonary hypertension (Chronic) Moderate with a RV systolic estimated at 60 Mitral regurgitation (Chronic) Hiatal hernia (Chronic) small Esophageal varices determined by endoscopy (Chronic) stage II varices on EGD 04/28/[address] Abdullahi. Esophageal varices due to chronic alcohol dependence and chronic liver disease. Anxiety (Chronic) Anemia (Chronic) Pancreatitis (Chronic) Stroke (Chronic) Alcohol abuse (Chronic) Hepatitis C (Chronic) I question this......he had a negative Hep C in 2017 here at [facility] so unless he has had a more recent test that is + to my knowledge he has never had Hep C Depression (Chronic) COPD (chronic obstructive pulmonary disease) (Chronic) Hyperlipemia (Chronic) GERD (gastroesophageal reflux disease) (Chronic) HTN (hypertension) (Chronic) Colonic polyp (Chronic) Colon, diverticulosis (Chronic) Nicotine addiction (Chronic) RENETTA (obstructive sleep apnea) (Chronic) non-compliant with PAP Carotid stenosis (Chronic) has had a R [facility] Hospital Course and Treatment Imaging Results: Clinical Impression(s) from Imaging Studies Chest X-Ray 05/28/19 04:55 IMPRESSION: No acute findings on this portable exam. Follow-up as clinically indicated. at 0528 Reported and signed by: Sanaz Fernandez MD Electronically Signed: Sanaz Fernandez MD at 5:28 EST Tel , Service support , Chest X-Ray 05/29/19 05:55 IMPRESSION: No active disease. Electronically Signed: Can Person MD at 17:22 EST Tel , Service support , Chest CTA 05/29/19 08:14 IMPRESSION: CTA chest examination, without a demonstrated pulmonary embolism or arterial dissection. Emphysema. Left upper lung infiltrate. Electronically Signed: Iván Polo MD at 12:45 EST , Service support , Chest X-Ray 05/30/19 21:20 IMPRESSION: Endotracheal tube and nasogastric tubes in grossly satisfactory position. Mild new infiltrate in the mid right lung. Electronically Signed: Naveed Moore MD at 21:33 EST , Service support , Critical care Operations: None Procedures: Intubation Summary of Care Provided: 58-year-old male with past medical history of chronic alcohol abuse who was readmitted on 05/24 with persistent hyponatremia and found to be progressively lethargic with respiratory distress intubated and managed on mechanical ventilator in the ICU. Patient was managed as acute pneumonia. Chest x-ray showed right mid-lung infiltrate. Sputum cultures were positive for MSSA and Serratia marcescens. Initially, he was started on IV Zosyn and vancomycin. He had acute kidney injury secondary to dehydration versus possible vancomycin side effect. This resolved with IV fluids. Patient also had hyponatremia that improved with hydration. He was managed on IV Levaquin and switched to oral Levaquin. Patient was seen by PT and OT and qualified for acute inpatient rehab. Patient Problems: Active and Suspected Problems Debility (Acute) Debility Secondary to chronic alcoholism, recent PNA and acute exacerbation COPD with intubation Metabolic encephalopathy (Acute) Thrombocytopenia (Acute) Suspect secondary to the toxic effects of EtOH on bone marrow Pneumonia (Acute) MSSA and Serratia Marcesans - more likely than not due to aspiration Diarrhea (Acute) suspect due to stool softeners Subjective: On the day of discharge, patient was seen and examined. He denied any new complains. He felt better. Objective: Physical exam: General: alert x3, looks much interactive, on 2 L of oxygen HEENT: Atraumatic, PERRLA, EOMI, Normocephalic, Oral: Moist Mucosa Neck: Supple Lungs: Clear to auscultation Cardiovascular: Regular rate, Regular Rhythm, Normal S1, Normal S2, No murmurs Abdomen: Bowel Sounds Present, Soft, Non Tender, Non-Distended, No Hepato-splenomegaly Extremities: No edema Skin: No rashes, No breakdown Musculoskeletal: No Tenderness to Palpation of Joints or Extremities Lymphatic: No Cervical, Supraclavicular, or Inguinal Adenopathy Neurological: Neuro grossly intact - sedated Psych/Mental Status: Normal Affect, Appropriate - Physical Exam Vitals/I&O's: Vital Signs Temp Pulse Resp BP Pulse Ox 98.9 F 80 16 171/85 H 93 06/05/19 08:24 06/05/19 11:03 06/05/19 11:03 06/05/19 08:24 06/05/19 08:24 Oxygen Flow Rate (L/min) 2 Oxygen Delivery Method Room Air Weight: 78.4 kg Body Mass Index (BMI) 25.9 Finger Stick Blood Glucose 120 Discharge Diet: Low fat/ Low Cholesterol, 2000 mg Sodium Diet Discharge Activity: Return to Normal Activity Weight Bearing Status: Weight bearing as tolerated Home Medications: Medications to take at Discharge Clopidogrel Bisulfate [Plavix] 75 mg PO DAILY 09/10/16 Folic Acid 1 mg PO DAILY@0800 09/10/16 busPIRone [Buspar] 20 mg PO BID 08/17/18 Budesonide/Formoterol Fumarate [Symbicort 160-4.5 Mcg Inhaler] 2 puff IH BID 04/25/19 Cholecalciferol (VIT D3) [Vitamin D3] 2,000 unit PO DAILY 04/25/19 Magnesium Oxide [Mag-Ox 400] 400 mg PO DAILY 04/25/19 Citalopram [Celexa] 40 mg PO DAILY 05/25/19 Metoprolol Tartrate [Lopressor (beta ran)] 100 mg PO BID 05/25/19 Acetaminophen [Tylenol Tablet] 650 mg PO Q6H PRN PRN tab 06/05/19 Albuterol Aerosols [Ventolin Aerosols] 2.5 mg INHALATION Q2H PRN PRN vial.neb. 06/05/19 Amlodipine [Norvasc] 5 mg PO DAILY 06/05/19 Atorvastatin Calcium [Lipitor] 80 mg PO QHS 06/05/19 Famotidine [Pepcid] 20 mg PO BID 06/05/19 Lisinopril [Zestril] 20 mg PO DAILY 06/05/19 Multivitamins,Therapeutic [Multivitamin] 1 tab PO DAILY 06/05/19 Nicotine [Nicoderm Cq] 21 mg TRANSDERM. DAILY 06/05/19 Primary Care Physician: [facility] [Primary Care Provider] - Disposition: Inpt Rehab Unit/Facility Minutes spent on discharge:: 40 Patient Condition:: Stable Medical Necessity - Tobacco Use Smoking Status: Current every day smoker Tobacco Use: Cigarettes Meaningful Use Info Meaningful Use Diagnoses (Choose all that apply): None applicable Code Visit Inpatient E&M: 98075 Disch Hosp
== END 2019-06-05 13:34 | DRG 640 ==
LOC: ED 16:26 → PCU 16:41 → ICU 05-30 20:35 → PCU 06-03 14:43
PROVIDERS: Family Medicine; Internal Medicine Critical Care Medicine; Internal Medicine Nephrology; Nurse Practitioner Family; Physician Assistant; Admitting Provider Student in an Organized Health Care Education/Training Program; Emergency Provider Emergency Medicine; Visit Provider Internal Medicine
DX: E87.1 Hypo-osmolality and hyponatremia (principal); J96.01 Acute respiratory failure with hypoxia; G93.41 Metabolic encephalopathy; J15.211 Pneumonia due to Methicillin susceptible Staphylococcus aureus; I50.33 Acute on chronic diastolic (congestive) heart failure; F10.239 Alcohol dependence with withdrawal, unspecified; D61.818 Other pancytopenia; J44.0 Chronic obstructive pulmonary disease with (acute) lower respiratory infection; N17.9 Acute kidney failure, unspecified; F40.00 Agoraphobia, unspecified; I27.20 Pulmonary hypertension, unspecified; E87.6 Hypokalemia; E83.39 Other disorders of phosphorus metabolism; F17.210 Nicotine dependence, cigarettes, uncomplicated; E87.0 Hyperosmolality and hypernatremia; R53.81 Other malaise; E87.3 Alkalosis; E78.5 Hyperlipidemia, unspecified; Z86.73 Personal history of transient ischemic attack (TIA), and cerebral infarction without residual deficits; K21.9 Gastro-esophageal reflux disease without esophagitis; G47.33 Obstructive sleep apnea (adult) (pediatric); I11.0 Hypertensive heart disease with heart failure
CPT/HCPCS: 31500; 31720; 36415; 36600; 71045; 71275; 80048; 80053; 80069; 80076; 80202; 80307; 80320; 81001; 82607; 82728; 82746; 82803; 82962; 83540; 83550; 83735; 83880; 83930; 83935; 84100; 84300; 84484; 85025; 85027; 85610; 85730; 87070; 87077; 87186; 87205; 87641; 92507; 92526; 92610; 93005; 94002; 94003; 94640; 94660; 94667; 94668; 94762; 95819; 97110; 97116; 97129; 97162; 97166; 97530; 97535; 97802; 97803; 99251; 99285; J1756; J7030; J7040; J7050; Q9967; A4216; G0463; G0480; J1940; J3490

== ENCOUNTER 2019-06-05 13:45 | Inpatient (IN) | payer MEDICARE, OTHER, SELFPAY ==
[2019-05-31 10:54] VITALS: BMI 25.9
[2019-06-05 14:17] VITALS: BP 158/80; PULSE 80; RESP 18; TEMP 36.7; O2SAT 95; BMI 27.8
--- NOTE | 2019-06-05 18:22 | NURSING ---
Patient has been impulsive on and off and alert x [address] person [address] times to [address]. Has been shown call paez several times with 1:1 and education and has used the call paez appropriately one time. Very pleasant to staff. Hi lo bed in place, bed alarm, personal alarm. Fluids encouraged.
[2019-06-05 19:35] VITALS: BP 170/92; PULSE 88; RESP 20; TEMP 37.2; O2SAT 93
[2019-06-05] MEDS: busPIRone 5 MG Tablet PO (19:46)
[2019-06-05] MEDS: Atorvastatin Calcium 80 MG Tablet PO (19:46)
[2019-06-05] MEDS: busPIRone 15 MG TABLET PO (19:46)
[2019-06-05] MEDS: 0.9% Saline Lock 10 ML Syringe IV (19:47)
[2019-06-05 20:25] VITALS: PULSE 88; RESP 14
[2019-06-05] MEDS: Albuterol 2.5 MG/3 ML VIAL.NEB. INHALATION (20:25)
[2019-06-05 21:15] VITALS: BP 158/82; PULSE 90
[2019-06-05] MEDS: Metoprolol Tartrate 100 MG Tablet PO (21:15)
[2019-06-05] MEDS: Famotidine 20 MG Tablet PO (21:15)
[2019-06-05 21:16] VITALS: BP 158/82; PULSE 90
[2019-06-06] VITALS (7 sets, daily range): BP systolic 142–147; BP diastolic 77–87; PULSE 78–83; RESP 16–17; TEMP 36.3; O2SAT 93–98
--- NOTE | 2019-06-06 03:16 | NURSING ---
DR STEELE NOTIFED THAT PT HAS HAD 3 EPISODES DIARRHEA THUS FAR THIS SHIFT-BROWN, LIQUID AND WITHOUT FOUL ORDER. INFORMED PT HAS RECENTLY BEEN ON LEVAQUIN. ORDERS GIVEN TO COLLECT STOOL TO CHECK FOR C.DIFF.
[2019-06-06] MEDS: Albuterol 2.5 MG/3 ML VIAL.NEB. INHALATION ×3 (07:15→18:40)
[2019-06-06] MEDS: Multivitamins,Therapeutic Tablet 1 TABLET PO (08:37)
[2019-06-06] MEDS: Folic Acid 1 MG Tablet PO (08:37)
[2019-06-06] MEDS: busPIRone 5 MG Tablet PO ×2 (08:38→20:27)
[2019-06-06] MEDS: busPIRone 15 MG TABLET PO ×2 (08:38→20:27)
[2019-06-06] MEDS: predniSONE 20 MG Tablet 40 MG PO (08:38)
[2019-06-06] MEDS: Citalopram 40 MG TABLET PO (08:38)
[2019-06-06] MEDS: Metoprolol Tartrate 100 MG Tablet PO ×2 (08:40→20:28)
[2019-06-06] MEDS: Magnesium Oxide 400 MG Tablet PO (08:43)
[2019-06-06] MEDS: Clopidogrel Bisulfate 75 MG Tablet PO (08:44)
[2019-06-06] MEDS: Famotidine 20 MG Tablet PO ×2 (08:44→20:27)
[2019-06-06] MEDS: amLODIPine 5 MG Tablet PO (08:44)
[2019-06-06] MEDS: Lisinopril 20 MG Tablet PO (08:45)
[2019-06-06] MEDS: 0.9% Saline Lock 10 ML Syringe IV (09:48)
[2019-06-06] MEDS: Loperamide 2 MG Capsule 4 MG PO (11:32)
[2019-06-06] MEDS: Atorvastatin Calcium 80 MG Tablet PO (20:27)
--- NOTE | 2019-06-06 20:34 | PCM.HP.STD ---
Problem List (1) Debility Status: Acute Comment: Debility Secondary to chronic alcoholism, recent PNA and acute exacerbation COPD with intubation (2) Elevated troponin Status: Resolved Comment: Indeterminate, no serial enzymes were done (3) Alcohol abuse Status: Chronic (4) Anemia Status: Chronic Qualifiers: Anemia type: iron deficiency (5) Anxiety Status: Chronic (6) COPD (chronic obstructive pulmonary disease) Status: Chronic (7) Carotid stenosis Status: Chronic Qualifiers: Laterality: bilateral Qualified Code(s): I65.23 - Occlusion and stenosis of bilateral carotid arteries Comment: has had a R CEA (8) Colon, diverticulosis Status: Chronic (9) Colonic polyp Status: Chronic (10) Depression Status: Chronic (11) GERD (gastroesophageal reflux disease) Status: Chronic (12) HTN (hypertension) Status: Chronic (13) Hepatitis C Status: Chronic Comment: I question this......he had a negative Hep C in 2017 here at [facility] so unless he has had a more recent test that is + to my knowledge he has never had Hep C (14) Hyperlipemia Status: Chronic (15) Nicotine addiction Status: Chronic Qualifiers: Nicotine product type: cigarettes (16) RENETTA (obstructive sleep apnea) Status: Chronic Comment: non-compliant with PAP (17) Pancreatitis Status: Chronic Qualifiers: Pancreatitis type: alcohol induced (18) Stroke Status: Chronic Qualifiers: Laterality of affected vessel: right (19) Metabolic encephalopathy Status: Acute (20) Thrombocytopenia Status: Acute Comment: Suspect secondary to the toxic effects of EtOH on bone marrow (21) Pneumonia Status: Acute Qualifiers: Pneumonia type: aspiration pneumonia Comment: MSSA and Serratia Marcesans - more likely than not due to aspiration (22) Neutropenia Status: Resolved (23) Hypokalemia Status: Resolved (24) Iron deficiency Status: Chronic (25) Hypomagnesemia Status: Resolved (26) Diarrhea Status: Acute Qualifiers: Diarrhea type: unspecified type Qualified Code(s): R19.7 - Diarrhea, unspecified Comment: suspect due to stool softeners (27) Grade III diastolic dysfunction Status: Chronic (28) Pulmonary hypertension Status: Chronic Comment: Moderate with a RV systolic estimated at 60 (29) Mitral regurgitation Status: Chronic Qualifiers: Cardiac valve disease etiology: nonrheumatic Qualified Code(s): I34.0 - Nonrheumatic mitral (valve) insufficiency (30) History of peptic ulcer disease Status: Inactive (31) Hiatal hernia Status: Chronic Comment: small (32) Esophageal varices determined by endoscopy Status: Chronic Comment: stage II varices on EGD 04/28/[address] Abdullahi. Esophageal varices due to chronic alcohol dependence and chronic liver disease. History of Present Illness Date of Admission: 06/05/19 Chief Complaint: Debility secondary to recent aspiration pneumonia and acute respiratory failure requiring intubation along with chronic alcoholism The patient is a 58 year old M with a past medical history of chronic alcohol dependence, chronic iron deficiency anemia since August 2018, anxiety/depression, COPD, bilateral carotid stenosis, diverticulosis, colon polyps, GERD, small hiatal hernia, grade 2 esophageal varices, hypertension, hepatitis C per recent H&P but Hep C was negative in September of 2016, hyperlipidemia, tobacco dependence, obstructive sleep apnea, chronic pancreatitis, stroke?, Thrombocytopenia, grade 3 diastolic dysfunction, moderate pulmonary hypertension, mitral valve regurgitation and recent DT's and aspiration PNA with acute hypoxic respiratory failure requiring intubation (intubated and sedated 4 days) who is admitted to the IPRU at [facility] on 06/05/19 for debility due to recent DT's, aspiration PNA and acute respiratory failure requiring intubation. He will do 3 hours or greater of therapy 6 days a week to restore him to a level of function where he can complete his ADL's and is mobile. He expressed interest in an inpt alcohol rehab facility during his admission to the acute side of the hospital. He currently lives in an appt and has 1 and 1/2 flights of stairs to get into his appt. He does not drive. Med list reviewed. Recent stress test in May 2019 was negative for ischemia and EF was 71%. Echocardiogram showed stage III diastolic dysfunction, moderate pulmonary hypertension with an RV systolic estimated at 60 and 1-2+ mitral regurgitation. There were no wall motion abnormalities. He has never been to an inpt or OP alcohol rehab program. He tells me he drinks because it makes me feel normal. He does not think an inpt alcohol rehab program would be for him but would consider an OP program. Both his mother and father were alcoholics. His mother quit at the age of 55 and she is still living. Father quit a few years after that. Unfortunately his father passed due to suicide. When I asked him what he is going to do to keep himself from drinking he told me he will need to find things to do since he is bored at home and all he does is sit around. He is seen every 6 months at the [facility] [place] and he does not get any counselling for anxiety/depression other than at those visits. He does not feel that the Citalopram works. He does not walk much because his feet hurt so bad. 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 Past Medical History Past Medical History (Chronic Problems): Chronic Problems Iron deficiency (Chronic) Grade III diastolic dysfunction (Chronic) Pulmonary hypertension (Chronic) Moderate with a RV systolic estimated at 60 Mitral regurgitation (Chronic) Hiatal hernia (Chronic) small Esophageal varices determined by endoscopy (Chronic) stage II varices on EGD 04/28/[address] Abdullahi. Esophageal varices due to chronic alcohol dependence and chronic liver disease. Anxiety (Chronic) Anemia (Chronic) Pancreatitis (Chronic) Stroke (Chronic) Alcohol abuse (Chronic) Hepatitis C (Chronic) I question this......he had a negative Hep C in 2017 here at [facility] so unless he has had a more recent test that is + to my knowledge he has never had Hep C Depression (Chronic) COPD (chronic obstructive pulmonary disease) (Chronic) Hyperlipemia (Chronic) GERD (gastroesophageal reflux disease) (Chronic) HTN (hypertension) (Chronic) Colonic polyp (Chronic) Colon, diverticulosis (Chronic) Nicotine addiction (Chronic) RENETTA (obstructive sleep apnea) (Chronic) non-compliant with PAP Carotid stenosis (Chronic) has had a R CEA Allergies No Known Allergies Allergy (Verified 05/08/19 14:54) Home Medications: Ambulatory Orders Medication Instructions Recorded Clopidogrel Bisulfate [Plavix] 75 mg PO DAILY 09/10/16 Folic Acid 1 mg PO DAILY@0800 09/10/16 busPIRone [Buspar] 20 mg PO BID 08/17/18 Budesonide/Formoterol Fumarate 2 puff IH BID 04/25/19 [Symbicort 160-4.5 Mcg Inhaler] Cholecalciferol (VIT D3) [Vitamin 2,000 unit PO DAILY 04/25/19 D3] Magnesium Oxide [Mag-Ox 400] 400 mg PO DAILY 04/25/19 Citalopram [Celexa] 40 mg PO DAILY 05/25/19 Metoprolol Tartrate [Lopressor 100 mg PO BID 05/25/19 (beta olga)] Acetaminophen [Tylenol Tablet] 650 mg PO Q6H PRN PRN tab 06/05/19 Albuterol Aerosols [Ventolin 2.5 mg INHALATION Q2H PRN PRN 06/05/19 Aerosols] vial.neb. Amlodipine [Norvasc] 5 mg PO DAILY 06/05/19 Atorvastatin Calcium [Lipitor] 80 mg PO QHS 06/05/19 Famotidine [Pepcid] 20 mg PO BID 06/05/19 Lisinopril [Zestril] 20 mg PO DAILY 06/05/19 Multivitamins,Therapeutic 1 tab PO DAILY 06/05/19 [Multivitamin] Nicotine [Nicoderm Cq] 21 mg TRANSDERM. DAILY 06/05/19 Surgical History: - - surgery on left foot due to accident, carotid endarterectemy on the right side. Psychiatric History: Anxiety, Depression Lives: Alone Smoking Status: Current every day smoker Tobacco Use: Cigarettes Alcohol: Heavy Drugs: None - *Family History Maternal History Items: No pertinent history - denies cancer, cad, DM, stroke, - - Mother had a history of alcoholism but quit drinking at the age of 55 Paternal History Items: - - alcoholism, of suicide Review of Systems Constitutional: Reports: Weakness, Fatigue. Denies: Chills, Fever, Weight Change HEENT: Denies: Difficulty Hearing, Difficulty Swallowing, Head Aches, Sinus Congestion, Sinus Drainage, Sore Throat Cardiovascular: Denies: Chest Pain, Edema, Light Headedness, Palpitations Respiratory: Reports: Cough - Loose, Shortness of Breath, Shortness of breath upon exertion. Denies: Shortness of breath at rest, Sputum production Gastrointestinal: Reports: Diarrhea - Stool is C. difficile negative. Denies: Abdominal Pain, Constipation, Nausea, Vomiting Genitourinary: Denies: Dysuria Musculoskeletal: Reports: Foot Pain - Bilateral, left greater than right. Denies: Joint Pain, Joint Tenderness Skin: Denies: Jaundice, Rash, Wounds Neurological: Reports: Balance problems, Tremor - Right hand. Denies: Double vision, Slurred speech, Focal weakness, Numbness, Tingling, Seizures Psychiatric: Reports: Anxiety, Depression. Denies: Homicidal Ideations, Suicidal Ideations Endocrine: Denies: Heat/ Cold Intolerance Hematologic/ Lymphatic: Denies: Easy Bruising, Easy Bleeding, Hx of blood clot VTE Information - Inpt Only VTE Present on Admission: No VTE Mechan Device Prophylaxis: SCD's, Knee High ZENIA Hose VTE Pharm Prophylaxis ordered?: No Reason prophylaxis not ordered:: Treatment Not Indicated - he has thrombocytopenia and anemia Patient Problems: Active and Suspected Problems Debility (Acute) Debility Secondary to chronic alcoholism, recent PNA and acute exacerbation COPD with intubation Metabolic encephalopathy (Acute) Thrombocytopenia (Acute) Suspect secondary to the toxic effects of EtOH on bone marrow Pneumonia (Acute) MSSA and Serratia Marcesans - more likely than not due to aspiration Diarrhea (Acute) suspect due to stool softeners - Physical Exam Vitals/I&O's: Vital Signs Temp Pulse Resp BP Pulse Ox 97.3 F L 80 16 147/87 H 95 06/06/19 19:25 06/06/19 20:28 06/06/19 19:25 06/06/19 20:28 06/06/19 19:25 Oxygen Delivery Method Room Air Weight: 177 lb 7.554 oz Body Mass Index (BMI) 27.8 Finger Stick Blood Glucose 120 Intake and Output for Last 24 Hours 06/04/19 06/05/19 06/06/19 23:59 23:59 23:59 Intake Total 240 / 290 2790 / 2790 Output Total 200 / 400 2049 / 2049 Balance 40 / -110 740 / 740 General: Alert, Oriented x3, Cooperative, No apparent distress, - - I awoke him from sleep and he is sitting in the recliner at the bedside. HEENT: Atraumatic, PERRLA, EOMI, Normocephalic Oral: Moist Mucosa, No Gingival or Mucosal Lesions/ Ulcerations Neck: Supple, No JVD, No Nodes, No Nuchal Rigidity, Trachea Midline, - - He has a scar on the right neck secondary to prior carotid endarterectomy Lungs: No rales, Diminished, Rhonchi, Wheezes - Rare inspiratory wheeze, - - He is not tachypneic and he has no conversational dyspnea. There is no accessory muscle use and there is symmetric chest expansion. Cardiovascular: Regular rate, Regular Rhythm, Normal S1, Normal S2, No murmurs, No Ectopic Activity Abdomen: Bowel Sounds Present, Soft, Non Tender, Non-Distended, - - No guarding with palpation Extremities: No clubbing, No cyanosis, No edema, - - there is surgical deformity to the left foot.....it is painful to bear weight. Musculoskeletal: No Muscle Wasting, Arthritic Changes Neurological: Cranial nerves II-XII grossly intact, Neuro grossly intact Psych/Mental Status: Appropriate, - - He did not seem anxious. He was oriented and pleasant. Denied any suicidal ideation. made good eye contact and he thanked me for coming to see him. Microbiology Past 72 Hours 06/06/19 06:00 Stool C. difficile DNA Amplification - Final Current Medications Acetaminophen (Tylenol) 650 mg PO Q6H PRN PRN PRN Reason: Pain Score 1-10/10 Albuterol Sulfate (Ventolin Aerosols) 2.5 mg INHALATION Q2H.RT PRN PRN Reason: dyspnea, wheezing Albuterol Sulfate (Ventolin Aerosols) 2.5 mg INHALATION Q6HWA.RT [facility] Last Admin: 06/06/19 18:40 Dose: 2.5 mg Documented by: Amlodipine Besylate (Norvasc) 5 mg PO DAILY [facility] Last Admin: 06/06/19 08:44 Dose: 5 mg Documented by: Atorvastatin Calcium (Lipitor) 80 mg PO QHS [facility] Last Admin: 06/06/19 20:27 Dose: 80 mg Documented by: Bisacodyl (Dulcolax) 10 mg RECTAL .PRN X 1 PRN PRN Reason: Constipation Buspirone HCl (Buspar) 15 mg PO BID [facility] Last Admin: 06/06/19 20:27 Dose: 15 mg Documented by: Buspirone HCl (Buspar) 5 mg PO BID [facility] Last Admin: 06/06/19 20:27 Dose: 5 mg Documented by: Cholecalciferol (Vitamin D (25mcg)) 2,000 unit PO DAILY [facility] Last Admin: 06/06/19 08:44 Dose: 2,000 unit Documented by: Citalopram Hydrobromide (Celexa) 40 mg PO DAILY [facility] Last Admin: 06/06/19 08:38 Dose: 40 mg Documented by: Clopidogrel Bisulfate (Plavix) 75 mg PO DAILY [facility] Last Admin: 06/06/19 08:44 Dose: 75 mg Documented by: Famotidine (Pepcid) 20 mg PO BID [facility] Last Admin: 06/06/19 20:27 Dose: 20 mg Documented by: Folic Acid (Folic Acid) 1 mg PO DAILY@0800 [facility] Last Admin: 06/06/19 08:37 Dose: 1 mg Documented by: Lisinopril (Zestril) 20 mg PO DAILY [facility] Last Admin: 06/06/19 08:45 Dose: 20 mg Documented by: Loperamide HCl (Imodium) 2 mg PO Q4H PRN PRN PRN Reason: DIARRHEA Magnesium Hydroxide (Milk Of Magnesia) 30 ml PO .PRN X 1 PRN PRN Reason: Constipation Magnesium Oxide (Mag-Ox 400) 400 mg PO DAILY [facility] Last Admin: 06/06/19 08:43 Dose: 400 mg Documented by: Metoprolol Tartrate (Lopressor (Beta Olga)) 100 mg PO BID [facility] Last Admin: 06/06/19 20:28 Dose: 100 mg Documented by: Multivitamins (Multivitamin) 1 tablet PO DAILYCM [facility] Last Admin: 06/06/19 08:37 Dose: 1 tablet Documented by: Nicotine (Nicoderm Cq (Pbkc)) 21 mg TRANSDERM. DAILY [facility] Last Admin: 06/06/19 08:43 Dose: 21 mg Documented by: Nutritional Formula (Lactose Free) (Ensure Enlive) 120 ml PO 4X/DAY [facility] Last Admin: 06/06/19 20:27 Dose: 120 ml Documented by: Prednisone () 40 mg PO DAILY@0800 [facility] Last Admin: 06/06/19 08:38 Dose: 40 mg Documented by: Senna/Docusate Sodium (Senokot-S, Chen-Colace) 2 tablet PO BID PRN PRN Reason: CONSTIPATION Sodium Chloride () 10 - 40 ml IV UD PRN PRN Reason: SALINE FLUSH Last Admin: 06/06/19 09:48 Dose: 10 ml Documented by: Assessment/Plan All Active Problems Hyponatremia (Resolved) Elevated troponin (Resolved) COPD exacerbation (Resolved) Debility (Acute) Metabolic encephalopathy (Acute) Thrombocytopenia (Acute) Pneumonia (Acute) Neutropenia (Resolved) Hypokalemia (Resolved) Diarrhea (Acute) Hypomagnesemia (Resolved) GI bleed (Resolved) Impressions 1. debility due to long standing ETOH dependence with chronic liver disease, esophageal varices, chronic anemia due to iron deficiency with likely chronic GI blood loss, metabolic encephalopathy AND recent DT's with aspiration PNA and acute respiratory failure requiring intubation. 2. chronic iron deficiency anemia - on an iron supplement but, also on a PPI which impairs iron absorption. Stool is currently heme negative. Will increase the iron to BID and give with Vitamin C. 3. Hypokalemia-supplementation ordered 4. HTN - BP's are mildly increased but he is still on high dose steroids so will just continue to monitor 5. Anxiety/depression- not getting any psychotherapy and these conditions are not adequately controlled at this time. I suspect that he will be unsuccessful at staying sober after DC unless this is addressed....he is needs appropriate medication and psychotherapy. Will D/W the SW. 6. gastritis 7. Grade 2 esophageal varices 8. Tobacco dependence-he has a nicotine patch and he is also been placed on BuSpar 20 mg twice daily to help with anxiety and smoking cessation 9. Bilateral carotid vascular disease-status post right carotid endarterectomy. He tells me that [place] been [place] needs [place] carotid done and would like to have it done at [facility] if possible. Will obtain records of his most recent carotid ultrasound from the [place]. 10. COPD 11. Obstructive sleep apnea-not compliant with PAP 12. History of colon polyps 13. History of diverticulosis 14. History of gastroesophageal reflux disease 15. Hyperlipidemia 16. Thrombocytopenia-suspect this is secondary to the toxic effects of alcohol on bone marrow. 17. Grade 3 diastolic dysfunction-suspect this is secondary to noncompliance with antihypertensives over long period of time 18. Pulmonary hypertension with an RV systolic estimated at 60. Suspect this is due to RENETTA and noncompliance with PAP PLAN PT for gait stability OT for ADL's ST for evaluation - has dysphagia on ST eval following extubation Analgesics as needed - He has such bad pain in his left foot he severely limits his walking. I am going to try Ultram 50 BID while in the rehab unit to see if it will help him be more mobile and able to do 3 hours of therapy. Bowel protocol Fall precautions Assess for Anxiety/Depression GI prophylaxis with Protonix DVT prophylaxis with ZENIA vue and SCDs in light of chronic anemia and significantly reduced platelet count. Follow up with Nikunj MEDELLIN following DC from [facility] Rehab. I suggested to him that he consider getting a PCP in [place] that he can go to when he is sick. We also discussed [address] OP at [place] and will also look into behavioral health. Will also try and get him to wear the PAP since he has chronic sleep deprivation without and this leads to depression and addiction. Smoking cessation was advised and he was provided with a Nicotine patch and Buspar to control his anxiety. Code Visit Inpatient E&M: 78128 Init Hosp L3
--- NOTE | 2019-06-06 20:46 | REHABEVAL_ITS ---
Admission Information Primary Diagnosis:: Debility secondary to chronic alcoholism and recent acute respiratory failure secondary to aspiration pneumonia with prolonged intubation Status Changes from Prescreening?: No changes Identified Actual Problem List:: Infection, Aspiration, Falls, Cognitve Impr/Memory Loss, Depression, Alteration in Sleep, Mobility Impaired, Self Care Deficit, Ineffective Communication, BP, Hypertension, Alteration/ Air Exchange, Alteration-Leisure Activ. Potential Problem List:: DVT, Bleeding, Infection, UTI, Aspiration, Falls, Skin Integrity, Depression Risk of Complications DVT: ZENIA Hose, Sequential Compression Device Bleeding: Monitor Lab Values, Wound, if applicable, to be assessed every shift. Infection: Clinical Staff to Monitor for S/S of infection:, S/S of infection include fever, redness, warmth, etc. Urinary Tract Infection: Monitor for frequency, burning, discomfort, or incontinence., Nursing will obtain urine sample for urinalysis and C&S when ordered. Aspiration: Clinical staff will monitor for coughing, drooling, congestion., Speech will evaluate swallowing and dsyphasia., Nursing will monitor patient swallowing during meals. Falls: Patient will be evaluated for Fall Precautions, Patient will be placed on Fall Precautions as indicated per protocol. Skin Breakdown: Nursing will assess skin daily using assessment tool., Nursing will place on Skin Breakdown Precautions as indicated. Pain: Clinical staff will assess patient's pain level per protocol., Medications will be given, if needed, and the pain level reassessed., Other methods: Massage, distraction, decrease stimulus, etc. used PRN. Plan of Care Patient requires physician specializing in physical medicine and rehab oversight to provide close medical supervision of rehab issues including: Pain Management, Sleep Problems, Bowel and Bladder, Medical and co-morbidity Management, DVT prophylaxis, Rehabilitation Leadership, Coordination of treatment team Patient needs Physical Therapy: For a minimum of 1 hour, At least 5 out of 7 days Patient needs Physical Therapy to improve:: Mobility, Mobility, Mobility, Strengthening, Transfers, Stretching, ROM, Endurance, Stairs, Gait, Balance Patient needs Occupational Therapy: For a minimum of 1 hour, At least 5 out of 7 days Patient needs Occupational Therapy to improve ADL's incl.: Eating, Grooming, Bathing, Dressing, Toileting, Toilet transfers, Community Reintegration, Higher functioning activities, Household tasks, Adaptive Equipment, Splinting, Other activities as determined Patient requires speech therapy: For a minimum of 1 hour, At least 5 out of 7 days Patient requires speech therapy for: Swallowing, Cognition, Language Skills, Compensatory Strategies Patient requires 24/ Rehabilitation Nursing for: Pain Issues, Identifying and preventing risk factors, Monitoring and reporting current medical conditions, Assisting with ambulation, transfer, and all ADL's, Teaching patients about disease process and medications, Family teaching, Providing safe environment, Bowel and Bladder Issues, Skin integrity, Medication Management Patient needs Public Housing Manager/ Case Management for: Discharge Planning, Arranging Home Equipment or Services, Family Interventions Patient needs Dietary and Nutrition Services for: Adequate Nutrition, Nutritional Supplements, Nutritional Education Goals Patient will remain: free from falls, or injury at time of discharge. Patient will perform bed mobility at: MOD I level of assist. Patient will complete transfers from bed to chair at: MOD I level of assist. Patient will ambulate: 100 feet, with MOD I assist, with LRD Patient will complete upper body dressing at: MOD I level of assist. Patient will complete lower body dressing at: MOD I level of assist. Patient will complete toileting at: MOD I level of assist. Patient will perform bathing at: MOD I level of assist. Patient will complete grooming at: MOD I level of assist. Patient will complete home management skills at: MOD I level of assist. Patient will achieve: 12 stairs, at MOD I assist Patient will have pain level of: of 3 or less Patient's skin will: remain intact, free from infection. Patient will receive: adequate nutrition. Discharge Planning Pt Prognosis for Sig. Practical Improv. w/in Reasonable Time: Fair Estimated Length of stay (days): 1 Anticipated D/C Destination: Home with Outpt Therapy - He is refusing inpt alcohol rehab at this time
[2019-06-07] VITALS (7 sets, daily range): BP systolic 113–148; BP diastolic 61–84; PULSE 76–80; RESP 16–18; TEMP 36.7–36.8; O2SAT 92–98; BMI 27.8
[2019-06-07 06:10] LABS: Hematocrit 29.2 % (40-54); Hemoglobin 8.9 g/dL (13.0-16.5); Mean Corp Hgb Conc 30.5 g/dL (32-36); Mean Corpuscular Hgb 27.2 pg (27.0-32.0); Mean Corpuscular Volume 89.3 fL (80-94); Mean Platelet Vol. 12.2 fl (6.2-12.0); POSITIVE COUNT YES; Platelet Count 71 K/mm3 (150-450); RBC Distribution Width CV 17.4 % (11.6-14.6); RBC Distribution Width SD 56.5 fl (35.1-43.9); Red Blood Count 3.27 M/mm3 (4.6-6.2); White Blood Count 6.4 K/mm3 (4.4-11.0)
[2019-06-07 06:30] LABS: ALB/GLOB Ratio 0.7 RATIO (0.9-2.4); AST(SGOT) 33 U/L (15-37); Alanine Aminotransfer ALT/SGPT 36 U/L (16-61); Albumin, Serum 2.6 g/dL (3.2-5.0); Alkaline Phosphatase 131 U/L (45-117); Anion Gap 8 (5-15); BUN 13 mg/dL (7-18); BUN/Creat Ratio 13.2 RATIO (10-20); Calcium,Total 8.9 mg/dL (8.5-10.1); Chloride 108 mmol/L (98-107); Creatinine, Serum 0.98 mg/dL (0.70-1.30); EST Glomerular Filtration Rate 83 mL/min (>60); Est Glom Filt Rate - Afr Amer 101 mL/min (>60); Estimated Creatinine Clearance 76.82 ml/min; Globulin 3.5 g/dL (2.2-4.2); Glucose 83 mg/dL (74-106); Magnesium 1.6 mg/dL (1.6-2.6); Phosphorus 5.7 mg/dL (2.5-4.9); Potassium 3.6 mmol/L (3.5-5.1); Protein, Total 6.1 g/dL (6.4-8.2); Sodium Level 142 mmol/L (136-145)
[2019-06-07] MEDS: Loperamide 2 MG Capsule PO ×2 (06:55→12:38)
[2019-06-07] MEDS: Albuterol 2.5 MG/3 ML VIAL.NEB. INHALATION ×2 (07:10→13:20)
[2019-06-07] MEDS: amLODIPine 5 MG Tablet PO ×2 (08:52→10:26)
[2019-06-07] MEDS: Magnesium Oxide 400 MG Tablet PO (08:52)
[2019-06-07] MEDS: Acetaminophen 325 MG Tablet 650 MG PO (08:52)
[2019-06-07] MEDS: predniSONE 20 MG Tablet 40 MG PO (08:53)
[2019-06-07] MEDS: Famotidine 20 MG Tablet PO ×2 (08:53→20:10)
[2019-06-07] MEDS: Lisinopril 20 MG Tablet PO (08:53)
[2019-06-07] MEDS: Citalopram 40 MG TABLET PO (08:53)
[2019-06-07] MEDS: busPIRone 15 MG TABLET PO ×2 (08:53→20:10)
[2019-06-07] MEDS: busPIRone 5 MG Tablet PO ×2 (08:53→20:10)
[2019-06-07] MEDS: Clopidogrel Bisulfate 75 MG Tablet PO (08:53)
[2019-06-07] MEDS: Folic Acid 1 MG Tablet PO (08:54)
[2019-06-07] MEDS: Multivitamins,Therapeutic Tablet 1 TABLET PO (08:54)
[2019-06-07] MEDS: Metoprolol Tartrate 100 MG Tablet PO ×2 (08:54→20:10)
[2019-06-07] MEDS: traMADol 50 MG Tablet PO ×3 (10:26→20:11)
--- NOTE | 2019-06-07 15:57 | CASEMGMT ---
Social Work Reviewed and agreed with social work grad intern documentation on this date. Peggy Goodman, CHERRY DIPPER OPTICAL LAB TECHNICIAN
[2019-06-07] MEDS: Atorvastatin Calcium 80 MG Tablet PO (20:10)
[2019-06-08] VITALS (7 sets, daily range): BP systolic 119–133; BP diastolic 65–73; PULSE 72–80; RESP 16–18; TEMP 36.5–36.8; O2SAT 93–98; BMI 27.8
--- NOTE | 2019-06-08 02:32 | NURSING ---
Reviewed and agree with SALES AND LEASING AGENT documentation.
[2019-06-08] MEDS: Albuterol 2.5 MG/3 ML VIAL.NEB. INHALATION ×3 (06:55→19:00)
[2019-06-08] MEDS: predniSONE 10 MG Tablet PO (07:48)
[2019-06-08] MEDS: Metoprolol Tartrate 100 MG Tablet PO ×2 (07:49→22:16)
[2019-06-08] MEDS: Folic Acid 1 MG Tablet PO (07:49)
[2019-06-08] MEDS: Magnesium Oxide 400 MG Tablet PO (07:49)
[2019-06-08] MEDS: busPIRone 15 MG TABLET PO ×2 (07:49→22:17)
[2019-06-08] MEDS: Clopidogrel Bisulfate 75 MG Tablet PO (07:49)
[2019-06-08] MEDS: Famotidine 20 MG Tablet PO ×2 (07:49→22:16)
[2019-06-08] MEDS: amLODIPine 10 MG Tablet PO (07:49)
[2019-06-08] MEDS: Lisinopril 20 MG Tablet PO (07:49)
[2019-06-08] MEDS: Multivitamins,Therapeutic Tablet 1 TABLET PO (07:50)
[2019-06-08] MEDS: Citalopram 40 MG TABLET PO (07:50)
[2019-06-08] MEDS: busPIRone 5 MG Tablet PO ×2 (07:51→22:16)
[2019-06-08] MEDS: traMADol 50 MG Tablet PO ×2 (07:54→22:16)
[2019-06-08] MEDS: buPROPion (XL) 150 MG TABLET.XL PO (12:27)
--- NOTE | 2019-06-08 12:57 | PCM.PN.BLA ---
Progress Note He had a sleep study in the past but, he did not like the mask and he sent the machine back. He c/o frequent muscles cramps at home but, he has no muscle cramps now and Impointed out that he does not eat properly and he primarily consumes beer leading to ELYTE abnormalities that cause the muscle cramping. He really has no friends. He talks to someone named Yaz but, they do not hang out. Yaz is 10 years younger than he is and she is an alcoholic. He had a son and a dtr. The son passed with complications due to epilepsy at due to anoxia and lives to be 32. He has a dtr but they have not spoken in 10 years. He was for 14 years and then got a divorce because he thought his was cheating on him. No romantic interests now and he tells me that he is impotent and Viagra did not help. Less pain in his feet today. pt wanted to walk without a FWW today and so he is ambulating with the PT and a gait belt. Gait is wide based and ataxic. HE has a poor memory. Lungs - rhonchi Heart - RRR no gallop abd - soft, ND, NT, no hyperactive BS's......frequent stooling per pt.....none of the nurses have observed this no peripheral edema Impressions 1. debility due to chronic alcoholism and recent acute DT's followed by aspiration PNA and respiratory failure requiring intubation 2. ? wernicke's Encephalopathy? 3. chronic alcoholism 4. anxiety and depression 5. carotid vascular disease - has had a R CEA and is wondering if he needs a L CEA? 6. diarrhea 7. ED Spoke with ST and they will do a cognitive assessment Check lab in the AM I am very concerned about his ability to care for himself, kobe if he is diagnosed with Wernicke's Encephalopathy and/or Korsakoff's S. He is still resistant to an inpt alcohol rehab facility. Decrease the Citalopram and start WEllbutrin XL 150 mg daily to try and increase activity and not make him sleepy. Continue BuSpar 20 mg twice daily - this can cause diarrhea and nausea......continue to monitor. May need to decrease if diarrhea continues and enteric pathogen panel and fecal leuko's are negative. Code Visit Inpatient E&M: 94154 Subs Hosp L2
[2019-06-08] MEDS: Ensure Clear 120 ML Liquid PO ×2 (17:09→22:19)
[2019-06-08] MEDS: Atorvastatin Calcium 80 MG Tablet PO (22:16)
[2019-06-09] VITALS (7 sets, daily range): BP systolic 122–137; BP diastolic 64–77; PULSE 68–75; RESP 16–18; TEMP 36.3–36.6; O2SAT 96–98; BMI 27.8
--- NOTE | 2019-06-09 02:03 | NURSING ---
Reviewed and agree with EMAIL MARKETING MANAGER documenting and charting
[2019-06-09 05:58] LABS: Hematocrit 28.2 % (40-54); Hemoglobin 8.9 g/dL (13.0-16.5); Mean Corp Hgb Conc 31.6 g/dL (32-36); Mean Corpuscular Hgb 27.9 pg (27.0-32.0); Mean Corpuscular Volume 88.4 fL (80-94); Mean Platelet Vol. 12.1 fl (6.2-12.0); POSITIVE COUNT YES; Platelet Count 85 K/mm3 (150-450); RBC Distribution Width CV 16.8 % (11.6-14.6); RBC Distribution Width SD 54.8 fl (35.1-43.9); Red Blood Count 3.19 M/mm3 (4.6-6.2); White Blood Count 6.3 K/mm3 (4.4-11.0)
[2019-06-09 06:15] LABS: Anion Gap 8 (5-15); BUN 12 mg/dL (7-18); BUN/Creat Ratio 12.6 RATIO (10-20); Calcium,Total 8.5 mg/dL (8.5-10.1); Chloride 106 mmol/L (98-107); Creatinine, Serum 0.95 mg/dL (0.70-1.30); EST Glomerular Filtration Rate 86 mL/min (>60); Est Glom Filt Rate - Afr Amer 104 mL/min (>60); Estimated Creatinine Clearance 79.24 ml/min; Glucose 68 mg/dL (74-106); Magnesium 1.5 mg/dL (1.6-2.6); Potassium 3.8 mmol/L (3.5-5.1); Sodium Level 138 mmol/L (136-145)
[2019-06-09] MEDS: Ensure Clear 120 ML Liquid PO ×4 (08:34→21:39)
[2019-06-09] MEDS: Multivitamins,Therapeutic Tablet 1 TABLET PO (08:35)
[2019-06-09] MEDS: Folic Acid 1 MG Tablet PO (08:35)
[2019-06-09] MEDS: busPIRone 15 MG TABLET PO ×2 (08:36→21:31)
[2019-06-09] MEDS: Metoprolol Tartrate 100 MG Tablet PO ×2 (08:36→21:41)
[2019-06-09] MEDS: predniSONE 10 MG Tablet PO (08:36)
[2019-06-09] MEDS: Citalopram 20 MG Tablet 30 MG PO (08:36)
[2019-06-09] MEDS: busPIRone 5 MG Tablet PO ×2 (08:36→21:31)
[2019-06-09] MEDS: Famotidine 20 MG Tablet PO ×2 (08:37→21:32)
[2019-06-09] MEDS: Clopidogrel Bisulfate 75 MG Tablet PO (08:37)
[2019-06-09] MEDS: Magnesium Oxide 400 MG Tablet PO ×2 (08:37→16:27)
[2019-06-09] MEDS: traMADol 50 MG Tablet PO ×2 (08:37→21:40)
[2019-06-09] MEDS: amLODIPine 10 MG Tablet PO (08:37)
[2019-06-09] MEDS: buPROPion (XL) 150 MG TABLET.XL PO (08:38)
[2019-06-09] MEDS: Lisinopril 20 MG Tablet PO (08:38)
[2019-06-09] MEDS: Thiamine Hydrochloride 100 MG Tablet PO (12:22)
[2019-06-09] MEDS: Albuterol 2.5 MG/3 ML VIAL.NEB. INHALATION ×2 (13:44→19:35)
--- NOTE | 2019-06-09 14:47 | CASEMGMT ---
Social Work Spoke with patient and physician and pt agreeable to Behavioral Health for depression, anxiety and assistance with alcohol. Referral made. Will continue to follow. Peggy Goodman MSW SPINNING MACHINE OPERATOR
[2019-06-09] MEDS: Ferrous Sulfate 325 MG Tablet PO (16:26)
[2019-06-09] MEDS: Ascorbic Acid 500 MG Tablet PO (16:27)
[2019-06-09] MEDS: Atorvastatin Calcium 80 MG Tablet PO (21:32)
[2019-06-10 02:21] VITALS: BMI 27.8
[2019-06-10 09:07] VITALS: PULSE 74
[2019-06-10] MEDS: Famotidine 20 MG Tablet PO ×2 (09:07→20:13)
[2019-06-10] MEDS: Thiamine Hydrochloride 100 MG Tablet PO (09:07)
[2019-06-10] MEDS: amLODIPine 10 MG Tablet PO (09:07)
[2019-06-10] MEDS: Metoprolol Tartrate 100 MG Tablet PO ×2 (09:07→20:14)
[2019-06-10] MEDS: busPIRone 15 MG TABLET PO ×2 (09:07→20:12)
[2019-06-10] MEDS: Clopidogrel Bisulfate 75 MG Tablet PO (09:07)
[2019-06-10] MEDS: buPROPion (XL) 150 MG TABLET.XL PO (09:07)
[2019-06-10] MEDS: Lisinopril 20 MG Tablet PO (09:07)
[2019-06-10] MEDS: traMADol 50 MG Tablet PO ×2 (09:07→20:17)
[2019-06-10] MEDS: Citalopram 20 MG Tablet 30 MG PO (09:08)
[2019-06-10] MEDS: Ascorbic Acid 500 MG Tablet PO ×2 (09:08→16:31)
[2019-06-10] MEDS: predniSONE 10 MG Tablet PO (09:11)
[2019-06-10] MEDS: Multivitamins,Therapeutic Tablet 1 TABLET PO (09:11)
[2019-06-10] MEDS: Folic Acid 1 MG Tablet PO (09:11)
[2019-06-10] MEDS: Ensure Clear 120 ML Liquid PO ×4 (09:11→20:11)
[2019-06-10] MEDS: Magnesium Oxide 400 MG Tablet PO ×2 (09:11→16:31)
[2019-06-10] MEDS: busPIRone 5 MG Tablet PO ×2 (09:11→20:12)
[2019-06-10] MEDS: Ferrous Sulfate 325 MG Tablet PO ×2 (09:15→16:31)
[2019-06-10 10:00] VITALS: BP 107/49; PULSE 71; RESP 18; TEMP 36.9; O2SAT 100
--- NOTE | 2019-06-10 10:27 | CASEMGMT ---
Social Work IDT met with pt for team meeting. Pt is SBA for transfers and is walking 150 ft at [facility], pt having more fluid steps. Pt is SBA for all ADLS. Pt on regular textured diet, drinking Kimberly thick liquids, but is on Love free water protocol. ST to work on memory, processing, safety. Pt is having trouble sleeping at night. Pt educated to , has been given 12 days, DC 06/16. Pt to be referred to [facility] for medication management. Working with pt to potentially manage AUD. Madie Andrew, social work consultants intern Peggy Goodman, CAFETERIA TABLE ATTENDANT AIRCRAFT PNEUDRAULIC SYSTEMS MECHANIC
--- NOTE | 2019-06-10 10:38 | PCM.PN.BLA ---
Progress Note Afebile VSS Maintaining appropriate oxygen saturation on RA Oral intake is fair. He has been on thickened clear liquids but does have Elton water available. Short term memory is poor. He tells me that he had several BM's last night and the nurses tell me he had no BM's last night but, he had a small formed stool today. Discussed with nursing - nursing reports that he is not sleeping well but Dominic tells me he is a night owl and he denies any trouble sleeping. The scheduled Tramadol has been helpful and he is walking better and with less pain. Reviewed the PT/OT/ST notes. He worked with St yesterday to problem solve how to pay 2 bills online and to then process through how he will get his rent paid. Medication list reviewed. All lab from 06/09/2019 was personally reviewed. Magnesium was low at 1.5 and the magnesium supplement was increased to 400 mg twice daily. Will need to continue monitoring for diarrhea. Testosterone level was 438.6 which is normal. Hemoglobin is stable at 8.9. Platelets are up to 85,000. He is willingly participating in therapy now and does not need to be coaxed any longer. He observed him walking in the ta and he was ambulating without AD and he was not ataxic. Alert, oriented X 3, pleasant and conversant Lungs - diminished with rare wheeze, no rales Heart - RRR, no gallop abd - soft, no guarding with palpation no edema and no calf tenderness Impressions 1. Debility due to longstanding EtOH dependence with chronic liver disease, esophageal varices, chronic anemia due to iron deficiency, metabolic encephalopathy, recent DTs, recent acute respiratory failure requiring intubation secondary to aspiration pneumonia 2. Longstanding alcohol dependence 3. Uncontrolled anxiety/depression-on citalopram for many years and still abusing alcohol and complaining of unrelieved anxiety/depression. Not getting any counselling. He did go to AA once but that was only because he had a DUI and he was required to go. Has never had a sponsor. 4. iron deficiency anemia - on Ferrous sulfate and vitamin C. Recheck HH in a few days. 5. Hypomagnesemia-supplement increased to 400 mg of Mag-Ox twice daily. We will continue to monitor for diarrhea. 6. ED - not due to hypogonadism. Could be vascular or it could be due to the Citalopram......he has had Wellbutrin added to his drug regimen and the Citalopram is being weaned down. If this is not effective will have him follow up with Dr. Maciel following DC. Advance the diet to low residue, dairy free Imodium PRN Recheck lab in a few days. Once again discussed alcohol rehab and what he plans on doing to not resume ETOH consumption at DC. He is agreeable to [facility] and would also like to talk with Behavioral Health about their intensive program for OP tx for anxiety and depression. He is also willing to consider 180. Will try and reach doctor Labor prior to DC to see if he would be a candidate for Vivitrol. DC the scheduled aerosols and continue with PRN albuterol. Continue the Prednisone taper I think it is very important for him if he is to remain sober to have plans in place for therapy and follow up before he is discharged. Reinforced the need to have a healthy support system and not another alcoholic....he must avoid friends who are addicted themselves. A total of 55 minutes was spent in the care of this pt.......> 50 % in counselling STROKE Vital Signs/Narrative: Vital Signs Temp Pulse Resp BP Pulse Ox 06/10/19 10:00 98.4 F 71 18 107/49 L 100 06/10/19 09:07 74 Code Visit Inpatient E&M: 86563 Subs Hosp L3
[2019-06-10] MEDS: Loperamide 2 MG Capsule PO (12:39)
[2019-06-10 12:53] VITALS: PULSE 68; RESP 19
[2019-06-10] MEDS: Albuterol 2.5 MG/3 ML VIAL.NEB. INHALATION ×2 (12:53→20:10)
[2019-06-10 14:47] VITALS: BMI 27.8
[2019-06-10] MEDS: Acetaminophen 325 MG Tablet 650 MG PO (16:30)
[2019-06-10 19:27] VITALS: BP 112/58; PULSE 69; RESP 16; TEMP 36.7; O2SAT 98
[2019-06-10 20:10] VITALS: PULSE 69; RESP 20
[2019-06-10] MEDS: Atorvastatin Calcium 80 MG Tablet PO (20:13)
[2019-06-10 20:14] VITALS: BP 112/58; PULSE 69
[2019-06-10 20:15] VITALS: BMI 27.8
[2019-06-11 07:00] VITALS: BP 111/66; PULSE 70; RESP 16; TEMP 36.7; O2SAT 97
[2019-06-11] MEDS: Magnesium Oxide 400 MG Tablet PO ×2 (09:07→17:41)
[2019-06-11] MEDS: Ferrous Sulfate 325 MG Tablet PO ×2 (09:07→17:41)
[2019-06-11] MEDS: Folic Acid 1 MG Tablet PO (09:07)
[2019-06-11] MEDS: Ascorbic Acid 500 MG Tablet PO ×2 (09:08→17:41)
[2019-06-11] MEDS: busPIRone 15 MG TABLET PO ×2 (09:08→22:57)
[2019-06-11] MEDS: Multivitamins,Therapeutic Tablet 1 TABLET PO (09:08)
[2019-06-11] MEDS: Citalopram 20 MG Tablet 30 MG PO (09:08)
[2019-06-11] MEDS: Thiamine Hydrochloride 100 MG Tablet PO (09:08)
[2019-06-11] MEDS: predniSONE 10 MG Tablet PO (09:08)
[2019-06-11] MEDS: busPIRone 5 MG Tablet PO ×2 (09:08→22:57)
[2019-06-11 09:09] VITALS: PULSE 70
[2019-06-11] MEDS: Metoprolol Tartrate 100 MG Tablet PO ×2 (09:09→22:56)
[2019-06-11] MEDS: Lisinopril 20 MG Tablet PO (09:10)
[2019-06-11] MEDS: amLODIPine 10 MG Tablet PO (09:10)
[2019-06-11] MEDS: Famotidine 20 MG Tablet PO ×2 (09:10→22:56)
[2019-06-11] MEDS: Clopidogrel Bisulfate 75 MG Tablet PO (09:10)
[2019-06-11] MEDS: buPROPion (XL) 150 MG TABLET.XL PO (09:10)
[2019-06-11] MEDS: Ensure Clear 120 ML Liquid PO (09:20)
[2019-06-11] MEDS: Acetaminophen 325 MG Tablet 650 MG PO (10:17)
[2019-06-11 10:56] VITALS: BMI 27.8
[2019-06-11] MEDS: traMADol 50 MG Tablet PO ×2 (11:09→22:56)
--- NOTE | 2019-06-11 11:14 | PCM.PN.BLA ---
Progress Note 58-year-old male with past medical history of alcohol dependence, hypertension, coronary artery disease, carotid vascular disease with history of right carotid endarterectomy, iron deficiency anemia, anxiety/depression-not adequately controlled, COPD, tobacco dependence, esophageal varices, obstructive sleep apnea not compliant with CPAP, grade 3 diastolic dysfunction who was admitted to the rehab unit on 06/05/2019 with physical debility secondary to recent acute hospital admission for hyponatremia, delirium tremens and aspiration pneumonia with acute hypoxemic respiratory failure requiring intubation. Afebile VSS Maintaining appropriate oxygen saturation on RA Oral intake is improving Discussed with nursing - no problems that need addressed Reviewed the PT/OT/ST notes Medication list reviewed. formed stool today H - RRR L - decreased but CTA abd - soft, NT, ND, normal BS's no ankle edema no tremors today Walking better today Impressions 1. physical debility 2. Hypomagnesemia 3. anxiety/depressions and isolating himself 4. iron deficiency anemia - on iron + vitamin C 5. ED - no erections in the morning and none at night - suspect this is either due to ETOH or to SSRI - Citalopram being weaned. 6. Long standing ETOH dependence - mother and father were both alcoholics. Looking into Vivitrol at DC - Dr. Mares can do this So can 180 Awaiting the eval by for suitability for their program Continue therapy Still refusing to consider an inpatient treatment program for alcohol dependence STROKE Vital Signs/Narrative: Vital Signs Pulse 06/11/19 09:09 70 Code Visit Inpatient E&M: [id number] Subs Hosp L2
--- NOTE | 2019-06-11 14:09 | SP.MBSS_ITS ---
PRIMARY / SECONDARY DIAGNOSIS: Oropharyngeal Dysphagia (R13.12) REFERRING PHYSICIAN: Dr. Carrington CURRENT DIET: Regular Textures/[place] Thick Liquids DENTITION: Natural Teeth MENTAL STATUS: WFL for assessment RESPIRATORY STATUS: O2 via room air PREVIOUS MODIFIED BARIUM SWALLOW STUDY: N/A REASON FOR REFERRAL: To determine presence and/or degree or aspiration. MEDICAL HISTORY: The patient is a 58/m admitted to [facility] on 05/25/2019 d/t acute respiratory insufficiency with hypoxia and hypercarbia, right upper lobe pneumonia, and metabolic alkalosis consistent with contraction alkalosis; required emergency intubation on 05/30/2019 at 2110. Patient was extubated 06/02/2019 at 0700. Past medical history is extensive, most significant for prior CVA (L thalamic), COPD, GERD. Patient was admitted to [facility] Inpatient Rehab Unit on 06/06/2019 with an admitting diagnosis of debility secondary to chronic alcoholism and recent acute respiratory failure secondary to aspiration pneumonia with prolonged intubation. STUDY FINDINGS: Patient participated in a Modified Barium Swallow (MBS) study on 06/11/2019. lead slot technician was present present for this evaluation. This study was recorded in the lateral view and images were sent to PACs for storage. The following consistencies were presented to this patient for analysis of oropharyngeal swallow function: thin liquid, nectar thick liquid, pudding, and a regular textured, Delmy Doone cookie. Results of the MBS are as follows: PENETRATION / ASPIRATION SCALE (MCCABE): 1 = does not enter airway 2 = enters airway/above vocal folds/ejected 3 = enters airway/above vocal folds/not ejected 4 = enters airway/contacts vocal folds/ejected 5 = enters airway/contacts vocal folds/not ejected 6 = enters airway/below vocal folds/ejected 7 = enters airway/below vocal folds/not ejected despite effort 8 = enters airway/below vocal folds/no effort PENETRATION / ASPIRATION SCALE (SCORE): 1) Thin liquids via teaspoon = 1 2) Thin liquids via teaspoon = 1 3) Thin liquids via small single sip from cup = 1 4) Thin liquids via large single sip from cup = 1 5) Thin liquids via sequential sips from cup = 2 6) [place] thick liquids = 1 7) pudding = 1 8) cookie = 1 9) Thin liquids via single sip from straw = 1 10) Thin liquids via sequential sips from straw = 1 IMPRESSION: mild oropharyngeal dysphagia (R13.12) ORAL PHASE CHARACTERIZED BY: LABIAL SEAL: no labial escape TONGUE CONTROL DURING BOLUS MANIPULATION:cohesive bolus between tongue to palatal seal BOLUS PREPARATION / MASTICATION: timely and efficient chewing and mashing BOLUS TRANSPORT / LINGUAL MOTION: brisk tongue motion ORAL RESIDUE: trace residue lining oral structures PHARYNGEAL PHASE CHARACTERIZED BY: INITIATION OF PHARYNGEAL SWALLOW: bolus head at posterior angle of ramus at first hyoid excursion SOFT PALATE ELEVATION: no bolus between soft palate and pharyngeal wall LARYNGEAL ELEVATION: partial superior movement of thyroid cartilage/partial approximation of arytenoids cartilage to epiglottic petiole ANTERIOR HYOID EXCURSION: trace anterior movement EPIGLOTTIC MOVEMENT: partial epiglottic inversion LARYNGEAL VESTIBULE CLOSURE AT HEIGHT OF SWALLOW: incomplete laryngeal vestibule closure with narrow column of air/contrast in laryngeal vestibule PHARYNGEAL STRIPPING WAVE: pharyngeal stripping wave present / diminished PHARYNGOESOPHAGEAL SEGMENT OPENING: partial distension and partial duration; partial obstruction of flow TONGUE BASE RETRACTION: narrow column of contrast between tongue base and posterior pharyngeal wall PHARYNGEAL RESIDUE: collection of residue within or on pharyngeal structures ESOPHAGEAL PHASE CHARACTERIZED BY: ESOPHAGEAL BOLUS CLEARANCE IN THE UPRIGHT POSITION: could not view DIET TEXTURE RECOMMENDATIONS: Will recommend a regular textured, thin liquid diet. COMPENSATORY STRATEGIES RECOMMENDED: Will recommend supervised meals, reduced bolus volume, reduced rate of intake, straws ok, seated upright at 90 degrees during PO intake, and remain upright for 30-60 minutes post meal (GERD precaution). INTERPRETATION OF RESULTS: Patient presents with mild oropharyngeal dysphagia (R13.12). Oral phase primarily marked by timely mastication of Delmy Doone shortbread cookie resulting in only trace oral residue. Pharyngeal phase primarily marked by slightly reduced closure of the airway during deglutition attributed to reduced laryngeal elevation and anterior hyoid excursion resulting in inconsistent complete epiglottic inversion and poor laryngeal vestibule closure / pressure. The patient had no aspiration during any of the trials completed during this evaluation although still considered at higher risk for aspiration given recent intubation/extubation from respiratory failure secondary to aspiration pneumonia. With larger sequential sips of thin liquids from the cup patient found to have transient penetration. Moderate amounts of pharyngeal residue present more with thicker viscosities. RECOMMENDATIONS: Patient requires intensive skilled speech-language intervention targeting continued diet texture management, training and implementation of recommended compensatory strategies, and training and implementation of recommended oral strengthening exercises to facilitate improved swallow function. ADDITIONAL COMMENTS/RECOMMENDATIONS: Results and recommendations were discussed with the patient immediately following MBS study completion, with the patient verbalizing understanding and agreement with all recommendations and education provided. Liz Bravo M.A., [facility] FUEL HANDLER Speech Language Pathologist [address] [address] [email or web address] [phone]
[2019-06-11 19:26] VITALS: BP 148/51; PULSE 73; RESP 18; TEMP 36.9; O2SAT 96
[2019-06-11 22:55] VITALS: BP 132/78; PULSE 76
[2019-06-11 22:56] VITALS: BP 132/78; PULSE 76
[2019-06-11] MEDS: Atorvastatin Calcium 80 MG Tablet PO (22:57)
[2019-06-12] MEDS: Folic Acid 1 MG Tablet PO (07:43)
[2019-06-12] MEDS: predniSONE 10 MG Tablet PO (07:43)
[2019-06-12] MEDS: Ascorbic Acid 500 MG Tablet PO ×2 (07:43→16:51)
[2019-06-12] MEDS: Ferrous Sulfate 325 MG Tablet PO ×2 (07:43→16:51)
[2019-06-12] MEDS: Multivitamins,Therapeutic Tablet 1 TABLET PO (07:43)
[2019-06-12] MEDS: Magnesium Oxide 400 MG Tablet PO ×2 (07:44→16:51)
[2019-06-12] MEDS: Thiamine Hydrochloride 100 MG Tablet PO (07:45)
[2019-06-12 08:56] VITALS: BP 114/68; PULSE 72; RESP 12; TEMP 36.6; O2SAT 99
[2019-06-12] MEDS: Lisinopril 20 MG Tablet PO (09:09)
[2019-06-12] MEDS: buPROPion (XL) 150 MG TABLET.XL PO (09:09)
[2019-06-12] MEDS: Citalopram 20 MG Tablet 30 MG PO (09:10)
[2019-06-12] MEDS: amLODIPine 10 MG Tablet PO (09:10)
[2019-06-12] MEDS: busPIRone 5 MG Tablet PO ×2 (09:10→21:54)
[2019-06-12 09:12] VITALS: BP 114/68; PULSE 72
[2019-06-12] MEDS: Metoprolol Tartrate 100 MG Tablet PO ×2 (09:12→21:54)
[2019-06-12] MEDS: busPIRone 15 MG TABLET PO ×2 (09:12→21:53)
[2019-06-12] MEDS: Clopidogrel Bisulfate 75 MG Tablet PO (09:12)
[2019-06-12] MEDS: Famotidine 20 MG Tablet PO ×2 (09:13→21:55)
[2019-06-12] MEDS: traMADol 50 MG Tablet PO ×2 (09:18→21:57)
[2019-06-12 09:31] VITALS: BMI 27.8
--- NOTE | 2019-06-12 12:38 | PCM.PN.HOSP ---
Patient Problems: Active and Suspected Problems Debility (Acute) Debility Secondary to chronic alcoholism, recent PNA and acute exacerbation COPD with intubation Metabolic encephalopathy (Acute) Thrombocytopenia (Acute) Suspect secondary to the toxic effects of EtOH on bone marrow Pneumonia (Acute) MSSA and Serratia Marcesans - more likely than not due to aspiration Diarrhea (Acute) suspect due to stool softeners Reason for Visit: Follow-up physical debility Subjective: Patient is a 58-year-old gentleman admitted to the inpatient rehab unit following hospitalization for hyponatremia delirium tremens and aspiration pneumonia with subsequent acute hypoxemic respiratory failure requiring intubation Objective: GENERAL: cooperative HEENT: Atraumatic; EYES; Anicteric, Normal Conjunctiva NECK; supple, normal thyroid, RESPIRATORY: Diminished to auscultation CARDIOVASCULAR: Regular S1 S2, GI: soft, normoactive bowel sounds, : No Renal angle tenderness; EXTREMITIES: No edema, no clubbing, MUSCULOSKELETAL: no muscle waisting NEURO: Awake; no lateralizing signs. SKIN: Bruising right upper extremity PSYCH; Flat affect Vitals/I&O's: Vital Signs Temp Pulse Resp BP Pulse Ox 98 F 72 12 114/68 99 06/12/19 08:56 06/12/19 09:12 06/12/19 08:56 06/12/19 09:12 06/12/19 08:56 Oxygen Delivery Method Room Air Weight: 79.9 kg Body Mass Index (BMI) 27.8 Finger Stick Blood Glucose 120 Intake and Output for Last 24 Hours 06/10/19 06/11/19 06/12/19 23:59 23:59 23:59 Intake Total 360 / 360 300 / 300 600 / 600 Output Total 200 / 200 450 / 450 Balance 160 / 160 300 / 300 150 / 150 Microbiology Past 72 Hours 06/09/19 02:30 Stool Enteric Bacteriology - Final Current Medications Acetaminophen (Tylenol) 650 mg PO Q6H PRN PRN PRN Reason: Pain Score 1-10/10 Last Admin: 06/11/19 10:17 Dose: 650 mg Documented by: Albuterol Sulfate (Ventolin Aerosols) 2.5 mg INHALATION Q2H.RT PRN PRN Reason: dyspnea, wheezing Last Admin: 06/10/19 20:10 Dose: 2.5 mg Documented by: Amlodipine Besylate (Norvasc) 10 mg PO DAILY [place] Last Admin: 06/12/19 09:10 Dose: 10 mg Documented by: Ascorbic Acid (Vitamin C) 500 mg PO BIDCM [facility] Last Admin: 06/12/19 07:43 Dose: 500 mg Documented by: Atorvastatin Calcium (Lipitor) 80 mg PO QHS [facility] Last Admin: 06/11/19 22:57 Dose: 80 mg Documented by: Bisacodyl (Dulcolax) 10 mg RECTAL .PRN X 1 PRN PRN Reason: Constipation Bupropion HCl (Wellbutrin Xl) 150 mg PO DAILY [facility] Last Admin: 06/12/19 09:09 Dose: 150 mg Documented by: Buspirone HCl (Buspar) 15 mg PO BID [facility] Last Admin: 06/12/19 09:12 Dose: 15 mg Documented by: Buspirone HCl (Buspar) 5 mg PO BID [facility] Last Admin: 06/12/19 09:10 Dose: 5 mg Documented by: Cholecalciferol (Vitamin D (25mcg)) 2,000 unit PO DAILY [facility] Last Admin: 06/12/19 09:09 Dose: 2,000 unit Documented by: Citalopram Hydrobromide (Celexa) 30 mg PO DAILY [facility] Last Admin: 06/12/19 09:10 Dose: 30 mg Documented by: Clopidogrel Bisulfate (Plavix) 75 mg PO DAILY [facility] Last Admin: 06/12/19 09:12 Dose: 75 mg Documented by: Famotidine (Pepcid) 20 mg PO BID [facility] Last Admin: 06/12/19 09:13 Dose: 20 mg Documented by: [facility]ous [facility]) [facility] Last Admin: 06/12/19 07:43 Dose: 325 mg Documented by: Folic Acid (Folic Acid) 1 mg PO DAILY@0800 [facility] Last Admin: 06/12/19 07:43 Dose: 1 mg Documented by: Lisinopril (Zestril) 20 mg PO DAILY [facility] Last Admin: 06/12/19 09:09 Dose: 20 mg Documented by: Loperamide HCl (Imodium) 2 mg PO Q4H PRN PRN PRN Reason: DIARRHEA Last Admin: 06/10/19 12:39 Dose: 2 mg Documented by: Magnesium Hydroxide (Milk Of Magnesia) 30 ml PO .PRN X 1 PRN PRN Reason: Constipation Magnesium Oxide (Mag-Ox 400) [facility] Last Admin: 06/12/19 07:44 Dose: 400 mg Documented by: Metoprolol Tartrate (Lopressor (Beta Olga)) 100 mg PO BID [facility] Last Admin: 06/12/19 09:12 Dose: 100 mg Documented by: Multivitamins (Multivitamin) [facility] Last Admin: 06/12/19 07:43 Dose: 1 tablet Documented by: Nicotine (Nicoderm Cq (Pbkc)) 21 mg TRANSDERM. DAILY [facility] Last Admin: 06/12/19 09:13 Dose: 21 mg Documented by: Nutritional Formula (Lactose Free) (Ensure Enlive) 120 ml PO 4X/DAY [facility] Last Admin: 06/12/19 09:12 Dose: 120 ml Documented by: Prednisone () 20 mg PO DAILY@0800 [facility]; Taper Stop: 06/17/19 07:59 Last Admin: 06/12/19 07:43 Dose: 20 mg Documented by: Senna/Docusate Sodium (Senokot-S, Chen-Colace) 2 tablet PO BID PRN PRN Reason: CONSTIPATION Sodium Chloride () 10 - 40 ml IV UD PRN PRN Reason: SALINE FLUSH Last Admin: 06/06/19 09:48 Dose: 10 ml Documented by: Thiamine HCl (Vitamin B1) [facility] Last Admin: 06/12/19 07:45 Dose: 100 mg Documented by: Tramadol HCl (Ultram) 50 mg PO BID [facility] Last Admin: 06/12/19 09:18 Dose: 50 mg Documented by: STROKE Vital Signs/Narrative: Vital Signs Temp Pulse Resp BP Pulse Ox 06/12/19 09:12 72 114/68 06/12/19 08:56 98 F 72 12 114/68 99 Medical Necessity - Tobacco Use Smoking Status: Current every day smoker Tobacco Use: Non-smoker Assessment/Plan All Active Problems Hyponatremia (Resolved) Elevated troponin (Resolved) COPD exacerbation (Resolved) Debility (Acute) Metabolic encephalopathy (Acute) Thrombocytopenia (Acute) Pneumonia (Acute) Neutropenia (Resolved) Hypokalemia (Resolved) Diarrhea (Acute) Hypomagnesemia (Resolved) GI bleed (Resolved) Patient is a 58-year-old gentleman admitted to the inpatient rehab unit following hospitalization for hyponatremia delirium tremens and aspiration pneumonia with subsequent acute hypoxemic respiratory failure requiring intubation 1. Physical debility ?Following recent hospitalization for hyponatremia DTs as well as aspiration pneumonia with subsequent acute hypoxic respiratory failure requiring intubation. Admitted to the intensive care unit where patient is currently undergoing therapy 2. Chronic alcoholic dependence ?With recent admission for delirium tremens 3. Hyponatremia Resolved as of 06/09/2019 4. Hypertension ~ blood pressure controlled, home medications continued with dose adjustment as needed 5. COPD ?Currently not in exacerbation 6. Tobacco dependence counseled on cessation, offered nicotine patch for tobacco cravings 7. Carotid artery disease with history of right carotid endarterectomy 8. Depression with anxiety 9. Chronic congestive heart failure with preserved ejection fraction 10. History of obstructive sleep apnea with history of noncompliance with CPAP therapy 11. History of esophageal varices Code Visit Inpatient E&M: 93772 Subs Hosp L2
[2019-06-12] MEDS: Albuterol 2.5 MG/3 ML VIAL.NEB. INHALATION (16:34)
[2019-06-12 16:35] VITALS: PULSE 63; RESP 18
[2019-06-12 17:50] VITALS: BMI 27.8
[2019-06-12 19:13] VITALS: BP 114/65; PULSE 66; RESP 16; TEMP 36.6; O2SAT 97
[2019-06-12 20:18] VITALS: BMI 27.8
[2019-06-12] MEDS: Atorvastatin Calcium 80 MG Tablet PO (21:53)
[2019-06-12 21:54] VITALS: BP 114/65; PULSE 66
[2019-06-13 08:14] VITALS: BP 145/77; PULSE 71; RESP 16; TEMP 36.6; O2SAT 98
[2019-06-13] MEDS: Ferrous Sulfate 325 MG Tablet PO ×2 (08:17→17:05)
[2019-06-13] MEDS: Multivitamins,Therapeutic Tablet 1 TABLET PO (08:17)
[2019-06-13] MEDS: predniSONE 10 MG Tablet PO (08:17)
[2019-06-13] MEDS: Thiamine Hydrochloride 100 MG Tablet PO (08:17)
[2019-06-13] MEDS: Folic Acid 1 MG Tablet PO (08:17)
[2019-06-13] MEDS: Magnesium Oxide 400 MG Tablet PO ×2 (08:17→17:05)
[2019-06-13] MEDS: busPIRone 15 MG TABLET PO ×2 (08:18→20:25)
[2019-06-13] MEDS: busPIRone 5 MG Tablet PO ×2 (08:18→20:25)
[2019-06-13] MEDS: Ascorbic Acid 500 MG Tablet PO ×2 (08:18→17:05)
[2019-06-13] MEDS: Citalopram 20 MG Tablet 30 MG PO (08:18)
[2019-06-13 08:19] VITALS: PULSE 71
[2019-06-13] MEDS: Metoprolol Tartrate 100 MG Tablet PO ×2 (08:19→20:26)
[2019-06-13] MEDS: amLODIPine 10 MG Tablet PO (08:19)
[2019-06-13] MEDS: Clopidogrel Bisulfate 75 MG Tablet PO (08:20)
[2019-06-13] MEDS: buPROPion (XL) 150 MG TABLET.XL PO (08:20)
[2019-06-13] MEDS: Lisinopril 20 MG Tablet PO (08:20)
[2019-06-13] MEDS: Famotidine 20 MG Tablet PO ×2 (08:20→20:26)
[2019-06-13] MEDS: traMADol 50 MG Tablet PO ×2 (08:23→22:20)
[2019-06-13 09:27] VITALS: BMI 27.8
[2019-06-13 19:08] VITALS: BP 117/70; PULSE 68; RESP 20; TEMP 36.4; O2SAT 100
[2019-06-13 20:03] VITALS: BMI 27.8
--- NOTE | 2019-06-13 20:06 | NURSING ---
Per pt request for early meds this hs.
[2019-06-13] MEDS: Atorvastatin Calcium 80 MG Tablet PO (20:25)
[2019-06-13 20:26] VITALS: BP 117/70; PULSE 68
[2019-06-14 06:13] LABS: Hematocrit 31.8 % (40-54); Hemoglobin 9.9 g/dL (13.0-16.5); Mean Corp Hgb Conc 31.1 g/dL (32-36); Mean Corpuscular Hgb 27.7 pg (27.0-32.0); Mean Corpuscular Volume 88.8 fL (80-94); Mean Platelet Vol. 11.1 fl (6.2-12.0); Platelet Count 173 K/mm3 (150-450); RBC Distribution Width SD 55.6 fl (35.1-43.9); Red Blood Count 3.58 M/mm3 (4.6-6.2); White Blood Count 8.6 K/mm3 (4.4-11.0)
[2019-06-14 06:43] LABS: Anion Gap 8 (5-15); BUN 18 mg/dL (7-18); BUN/Creat Ratio 14.1 RATIO (10-20); Calcium,Total 9.7 mg/dL (8.5-10.1); Chloride 103 mmol/L (98-107); Creatinine, Serum 1.28 mg/dL (0.70-1.30); EST Glomerular Filtration Rate 61 mL/min (>60); Est Glom Filt Rate - Afr Amer 74 mL/min (>60); Estimated Creatinine Clearance 58.81 ml/min; Glucose 65 mg/dL (74-106); Potassium 4.5 mmol/L (3.5-5.1); Sodium Level 137 mmol/L (136-145)
--- NOTE | 2019-06-14 07:02 | NURSING ---
PT HAD X2 LOOSE DIARRHEA THIS A.M. DARK BR[facility].
[2019-06-14] MEDS: Folic Acid 1 MG Tablet PO (07:53)
[2019-06-14] MEDS: Ferrous Sulfate 325 MG Tablet PO ×2 (07:53→16:39)
[2019-06-14] MEDS: Thiamine Hydrochloride 100 MG Tablet PO (07:54)
[2019-06-14] MEDS: Citalopram 20 MG Tablet 30 MG PO (07:54)
[2019-06-14] MEDS: Multivitamins,Therapeutic Tablet 1 TABLET PO (07:54)
[2019-06-14] MEDS: busPIRone 5 MG Tablet PO ×2 (07:54→20:01)
[2019-06-14] MEDS: Magnesium Oxide 400 MG Tablet PO ×2 (07:54→16:39)
[2019-06-14] MEDS: predniSONE 10 MG Tablet PO (07:54)
[2019-06-14] MEDS: busPIRone 15 MG TABLET PO ×2 (07:54→20:01)
[2019-06-14] MEDS: buPROPion (XL) 150 MG TABLET.XL PO (07:55)
[2019-06-14] MEDS: Clopidogrel Bisulfate 75 MG Tablet PO (07:55)
[2019-06-14] MEDS: Famotidine 20 MG Tablet PO (07:55)
[2019-06-14 09:04] VITALS: PULSE 70
[2019-06-14] MEDS: Metoprolol Tartrate 100 MG Tablet PO ×2 (09:04→20:00)
[2019-06-14] MEDS: amLODIPine 10 MG Tablet PO (09:04)
[2019-06-14] MEDS: Loperamide 2 MG Capsule PO (09:04)
[2019-06-14] MEDS: Ascorbic Acid 500 MG Tablet PO ×2 (09:04→16:39)
[2019-06-14] MEDS: traMADol 50 MG Tablet PO ×2 (09:04→21:40)
[2019-06-14] MEDS: Lisinopril 20 MG Tablet PO (09:05)
[2019-06-14 09:07] VITALS: BP 103/62; PULSE 70
--- NOTE | 2019-06-14 13:32 | PN_ITS ---
Progress Note I reviewed all the records sent to us from the [facility]. He missed his last appt for Carotid vascular study. His last carotid study at [facility] was seen in 2016 when he had a CTA of the head and neck. At that time the left internal carotid artery was 50% stenosed. has not been seen at the [facility] since the fall of 2018. He has consistently refused assistance with ETOH and tobacco cessation. He admits many times that he isolates and he also states he is agoraphobic. Has been on Citalopram 40 mg for a long time. At one point he was on Citalopram and Cymbalta and anxiety increased and the Cymbalta was discontinued. He has also been on Buspar but, only 10 mg BID. He wants to have a CEA at [facility] but, will need a carotid US prior to referring to Dr. Sanz and this can be done as an OP. All lab was personally reviewed. CBC shows a normal white count at 8.6. Hemoglobin is improving and is 9.9 today. Platelets have recovered and are 173,000 today. BMP is unremarkable with the exception of a BUN of 18 and a increased creatinine at 1.28, up from 0.95 on 06/09/2019. He tells me he vomited today.....no one witnessed this. He got lightheaded while ambulating in the ta today and BP dropped. [facility]...kobe when anxious. He is also c/o heartburn. He is currently on famotidine 20 mg twice daily. At admission to the hospital he was taking Protonix 20 mg twice daily. Alert and oriented x3, cooperative, smiling Heart-regular rate and rhythm, no gallop Lungs-diminished but clear to auscultation without wheezing, rhonchi or rales Abdomen-soft, nontender, nondistended, normal bowel sounds heard. No peripheral edema. No tremors He was observed ambulating in the ta without an assistive device and ataxia has resolved. Impressions 1. physical debility 2. Hypomagnesemia 3. anxiety/depressions and isolating himself 4. iron deficiency anemia - on iron + vitamin C 5. ED - no erections in the morning and none at night - suspect this is either due to ETOH or to SSRI - Citalopram being weaned. 6. Long standing ETOH dependence - mother and father were both alcoholics. 7. carotid vascular disease - will need to have an OP Carotid US prior to appt with Dr. Gabriel Sanz - [facility]. He missed his last appt for US 8. long standing GERD - not controlled with H2 ran OR the Famotidine and start Protonix 20 mg BID. He was instructed to increase his fluid intake today Orthostatics in the AM D/W the SW the fact that he has not been seen by yet. We also discussed referring to [facility] for possible Vivitrol injections. He is a candidate for Community Outreach at [facility] for medication management. I recommended to him that he have his friend Yaz, who has a shah to his appt, Take all the ETOH out of the appt. He wants to wait on the CCN until he has time to clean his appt but, it may be a good idea to see how he is living. Code Visit Inpatient E&M: 79873 Subs Hosp L2
[2019-06-14 14:28] VITALS: BMI 27.8
[2019-06-14 19:06] LABS: Bedside Glucose 135 mg/dL (70-110)
[2019-06-14 19:47] VITALS: BP 107/54; PULSE 64; RESP 17; TEMP 36.8; O2SAT 96
[2019-06-14] MEDS: Pantoprazole Sodium 20 MG Tablet PO (19:59)
[2019-06-14 20:00] VITALS: BP 107/54; PULSE 64
[2019-06-14] MEDS: Atorvastatin Calcium 80 MG Tablet PO (20:00)
[2019-06-14 20:15] VITALS: BMI 27.8
[2019-06-15 07:00] VITALS: BP 108/67; PULSE 71; RESP 18; TEMP 36.5; O2SAT 98
[2019-06-15] MEDS: Ferrous Sulfate 325 MG Tablet PO ×2 (08:00→17:17)
[2019-06-15] MEDS: Magnesium Oxide 400 MG Tablet PO ×2 (08:00→17:17)
[2019-06-15] MEDS: Folic Acid 1 MG Tablet PO (08:00)
[2019-06-15] MEDS: Thiamine Hydrochloride 100 MG Tablet PO (08:02)
[2019-06-15] MEDS: Multivitamins,Therapeutic Tablet 1 TABLET PO (08:02)
[2019-06-15] MEDS: predniSONE 10 MG Tablet PO (08:02)
[2019-06-15] MEDS: Citalopram 20 MG Tablet 30 MG PO (08:03)
[2019-06-15] MEDS: busPIRone 15 MG TABLET PO ×2 (08:03→21:02)
[2019-06-15] MEDS: Ascorbic Acid 500 MG Tablet PO ×2 (08:03→17:17)
[2019-06-15] MEDS: busPIRone 5 MG Tablet PO ×2 (08:03→21:05)
[2019-06-15 08:04] VITALS: PULSE 71
[2019-06-15] MEDS: amLODIPine 5 MG Tablet PO (08:04)
[2019-06-15] MEDS: traMADol 50 MG Tablet PO ×2 (08:04→21:04)
[2019-06-15] MEDS: Pantoprazole Sodium 20 MG Tablet PO ×2 (08:04→21:04)
[2019-06-15] MEDS: Metoprolol Tartrate 100 MG Tablet PO ×2 (08:04→21:03)
[2019-06-15] MEDS: Clopidogrel Bisulfate 75 MG Tablet PO (08:04)
[2019-06-15] MEDS: buPROPion (XL) 150 MG TABLET.XL PO (08:05)
[2019-06-15] MEDS: Lisinopril 20 MG Tablet PO (08:05)
[2019-06-15 13:44] VITALS: BMI 27.8
--- NOTE | 2019-06-15 14:37 | BH.NOTE ---
BH: Inpatient Note - Notes Behavioral Health Inpatient Note: 06/15/19 14:37 Referral to [facility] from [facility] due to hx of depression, anxiety, and alcohol use. Met with patient in his room. Alert and oriented. Pleasant and Cooperative. Smiling at times. In regards to his physical and emotional distress pt states I'm 75% better than when I got here. Reports that being around others, socializing, engaging in conversation, and interacting has helped alleviate his depression and anxiety. Shared that he has been severely isolated for the past 4 years stating that he only left the house to go grocery shopping. He had been a social person all his life however after significant medical trauma (Stroke, coma) in 2016 he began to isolate himself which led to increase alcohol use and depression. Currently he is motivated to remain sober and seek OP treatment however is only interested in individual counseling as he believes through past experiences that group therapy and AA increase his desire to drink. We discussed programs in the area and he was given referrals to [facility]. Transportation is an obstacle for pt as he does not drive and due to physical pain is unable to walk. Strongly encouraged him to follow up at discharge as due to the severity of his isolation he may fall quickly back into unhealthy patterns without accountability and support.
--- NOTE | 2019-06-15 16:45 | CASEMGMT ---
Social Work Met with pt about DC plans. Pt to DC home alone 06/16. Pt agreeable to [facility], provided pt with list of [facility] agencies, pt requesting [facility]-PT/OT/SW/SN, referral made. No DME needs. Pt met with Behavioral Health and discussed available options. Pt was only interested in individual counseling, resources were provided and offered to make an appointment but pt denied appointment at this time. Plan: Dc home alone 06/16, [place] [facility]-PT/OT/SW/SN, no DME Madie Andrew, social work restaurant management internship Peggy Goodman, [employer] STAVE LOG RIPSAW OPERATOR
--- NOTE | 2019-06-15 17:26 | CASEMGMT ---
Social Work Reviewed and agreed with social work qa internship documentation on this date. Peggy Goodman, RECYCLING TECH BAGGAGE SECURITY CHECKER
[2019-06-15 18:50] VITALS: BP 113/73; PULSE 71; RESP 18; TEMP 36.7; O2SAT 93
[2019-06-15 20:38] VITALS: BMI 27.8
[2019-06-15 21:03] VITALS: BP 118/71; PULSE 73
[2019-06-15] MEDS: Atorvastatin Calcium 80 MG Tablet PO (21:03)
[2019-06-16 08:19] VITALS: BP 99/63; PULSE 70; RESP 17; TEMP 36.3; O2SAT 100
[2019-06-16] MEDS: Citalopram 20 MG Tablet 30 MG PO (08:53)
[2019-06-16] MEDS: Pantoprazole Sodium 20 MG Tablet PO ×2 (08:53→21:04)
[2019-06-16] MEDS: traMADol 50 MG Tablet PO ×2 (08:53→21:04)
[2019-06-16] MEDS: buPROPion (XL) 150 MG TABLET.XL PO (08:53)
[2019-06-16] MEDS: predniSONE 10 MG Tablet PO (08:54)
[2019-06-16] MEDS: busPIRone 5 MG Tablet PO ×2 (08:54→21:03)
[2019-06-16] MEDS: Ascorbic Acid 500 MG Tablet PO ×2 (08:54→16:42)
[2019-06-16] MEDS: busPIRone 15 MG TABLET PO ×2 (08:54→21:03)
[2019-06-16] MEDS: Clopidogrel Bisulfate 75 MG Tablet PO (08:55)
[2019-06-16] MEDS: Magnesium Oxide 400 MG Tablet PO ×2 (08:55→16:43)
[2019-06-16] MEDS: Ferrous Sulfate 325 MG Tablet PO ×2 (08:55→16:43)
[2019-06-16] MEDS: Folic Acid 1 MG Tablet PO (08:55)
[2019-06-16] MEDS: Thiamine Hydrochloride 100 MG Tablet PO (08:55)
[2019-06-16] MEDS: Multivitamins,Therapeutic Tablet 1 TABLET PO (08:55)
[2019-06-16 08:58] VITALS: BP 110/75; PULSE 70
[2019-06-16] MEDS: amLODIPine 5 MG Tablet PO (08:58)
[2019-06-16] MEDS: Lisinopril 20 MG Tablet PO (08:58)
[2019-06-16] MEDS: Metoprolol Tartrate 100 MG Tablet PO ×2 (08:58→21:03)
--- NOTE | 2019-06-16 12:08 | PCM.PN.BLA ---
Progress Note Dominic met with David Ferguson from yesterday and I reviewed David's note. Pt is only agreeable to individual therapy and not group therapy. He was given resources to try to arrange counselling...[facility] and [facility] seem like good options. DC date is tomorrow. He has improved significantly since admission to the unit. He is ambulating without and AD and his mentation is better but still has lightly slowed processing and response time. Also having periods of inattention along with poor short-term memory. He realizes that he is not doing as well thinking as he had in the past and he may very well be developing Wernicke's encephalopathy. I reviewed the PT/OT and ST notes. He has been advanced to a diet with regular textures and thin liquids. HHC has been arranged. He tells me that he will consider getting Vivitrol. I offered to make an appointment for him to see Dr. Mares but he prefers to wait on this. I also offered to call the 2 counselling facilities he has chosen and once again he declined. He is open to scheduling and appt with Dr. Mata or Catalino Canchola YOUTH CARE WORKER in 1 week. He seems to think he has had an epiphany and is going to go home and fix up his place so it is light and cheerful and he is also going to get some new clothes (something he has not done in 30yrs.) He is also going to go home and get rid of any ETOH as soon as he gets home so he will not be tempted. He realizes that he has been isolating and has no healthy friends. He is going to make an effort to be more social. alert, oriented X 3, pleasant and has a positive attitude Lungs-diminished in the bases but clear to auscultation. Overall the air exchange has improved significantly during his stay in rehab. Heart-regular rate and rhythm, no gallop Abdomen-soft, nontender, nondistended, normal bowel sounds heard No tremors No peripheral edema Skin-no wounds or rashes, he has resolving bruises Impressions 1. physical debility - significantly improved 2. Hypomagnesemia 3. anxiety/depression and isolating himself 4. iron deficiency anemia - on iron + vitamin C - the last HGB had improved so will continue at [place]. 5. ED - no erections in the morning and none at night - suspect this is either due to ETOH or to SSRI - Citalopram being weaned. 6. Long standing ETOH dependence - mother and father were both alcoholics. 7. carotid vascular disease - will need to have an OP Carotid US prior to appt with Dr. Gabriel Sanz - [facility]. He missed his last appt for US 8. long standing GERD - not controlled with H2 ran. Has resolved with the transition to Protonix 9. chronic pain S. due to trauma falling off a roof and landing on his feet. Multiple surgeries on the Left foot. Has been getting Ultram 50 mg BID and the pain is 50% better and he is satisfied with this. Not a Tylenol due to chronic liver disease. Not on NSAID's due to hx of GIB requiring transfusion on NSAID's in the past. Will continue Ultram at DC because he is now able to ambulate without grimacing. He knows this is a controlled substance and use will be strictly monitored. 10. Cognitive dysfunction with delayed processing and difficulty problem solving without receiving cues. Will DC on Thiamin - may be developing chronic encephalopathy. Nursing will schedule an appt to see Dr. Mata or Catalino Canchola in 1 week. DC tomorrow Will send RX's to [facility] [place] retail pharmacy today so they will be ready in the morning. All his questions were answered and the plan for DC was discussed. I told him I would give him another opputunity to ask questions in the AM STROKE Vital Signs/Narrative: Vital Signs Temp Pulse Resp BP Pulse Ox 06/16/19 08:58 70 110/75 06/16/19 08:19 97.3 F L 70 17 99/63 100 Code Visit Inpatient E&M: 46304 Subs Hosp L2
[2019-06-16 15:00] VITALS: BMI 27.8
[2019-06-16 18:23] VITALS: BP 109/58; PULSE 69; RESP 16; TEMP 36.6; O2SAT 100
[2019-06-16 21:03] VITALS: BP 111/60; PULSE 76
[2019-06-16] MEDS: Atorvastatin Calcium 80 MG Tablet PO (21:03)
[2019-06-16 22:00] VITALS: PULSE 69; O2SAT 100
[2019-06-16 23:21] VITALS: BMI 27.8
--- NOTE | 2019-06-17 01:07 | NURSING ---
REVIEWED AND AGREE WITH LEARNING MANAGER'S FUNCTIONAL ASSESSMENT AND HANDOFF CHARTING.
[2019-06-17 05:57] LABS: Hematocrit 31.5 % (40-54); Hemoglobin 9.6 g/dL (13.0-16.5); Mean Corp Hgb Conc 30.5 g/dL (32-36); Mean Corpuscular Hgb 26.9 pg (27.0-32.0); Mean Corpuscular Volume 88.2 fL (80-94); Mean Platelet Vol. 10.9 fl (6.2-12.0); Platelet Count 162 K/mm3 (150-450); RBC Distribution Width CV 17.5 % (11.6-14.6); RBC Distribution Width SD 56.9 fl (35.1-43.9); Red Blood Count 3.57 M/mm3 (4.6-6.2); White Blood Count 9.2 K/mm3 (4.4-11.0)
[2019-06-17 06:34] LABS: Anion Gap 8 (5-15); BUN 20 mg/dL (7-18); BUN/Creat Ratio 14.5 RATIO (10-20); Calcium,Total 9.1 mg/dL (8.5-10.1); Chloride 105 mmol/L (98-107); Creatinine, Serum 1.38 mg/dL (0.70-1.30); EST Glomerular Filtration Rate 56 mL/min (>60); Est Glom Filt Rate - Afr Amer 68 mL/min (>60); Estimated Creatinine Clearance 54.55 ml/min; Glucose 87 mg/dL (74-106); Magnesium 1.7 mg/dL (1.6-2.6); Potassium 4.1 mmol/L (3.5-5.1); Sodium Level 137 mmol/L (136-145)
--- NOTE | 2019-06-17 09:35 | CCN.REFER ---
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 Peggy made aware via email.
[2019-06-17 09:38] VITALS: BP 110/60; PULSE 75; RESP 18; TEMP 37.1; O2SAT 97
[2019-06-17] MEDS: amLODIPine 5 MG Tablet PO (09:45)
[2019-06-17] MEDS: busPIRone 15 MG TABLET PO (09:45)
[2019-06-17] MEDS: buPROPion (XL) 150 MG TABLET.XL PO (09:45)
[2019-06-17 09:46] VITALS: BP 110/60; PULSE 75
[2019-06-17] MEDS: Multivitamins,Therapeutic Tablet 1 TABLET PO (09:46)
[2019-06-17] MEDS: busPIRone 5 MG Tablet PO (09:46)
[2019-06-17] MEDS: Ascorbic Acid 500 MG Tablet PO (09:46)
[2019-06-17] MEDS: Magnesium Oxide 400 MG Tablet PO (09:46)
[2019-06-17] MEDS: Ferrous Sulfate 325 MG Tablet PO (09:46)
[2019-06-17] MEDS: Clopidogrel Bisulfate 75 MG Tablet PO (09:46)
[2019-06-17] MEDS: Folic Acid 1 MG Tablet PO (09:46)
[2019-06-17] MEDS: Citalopram 20 MG Tablet 30 MG PO (09:46)
[2019-06-17] MEDS: Thiamine Hydrochloride 100 MG Tablet PO (09:46)
[2019-06-17] MEDS: Metoprolol Tartrate 100 MG Tablet PO (09:46)
[2019-06-17] MEDS: Pantoprazole Sodium 20 MG Tablet PO (09:47)
[2019-06-17] MEDS: Lisinopril 20 MG Tablet PO (09:47)
[2019-06-17] MEDS: traMADol 50 MG Tablet PO (09:47)
--- NOTE | 2019-06-17 09:55 | DCINST_ITS ---
- Discharge Diagnoses Current Active Problems: Current Active and Chronic Problems Debility (Acute) Debility Secondary to chronic alcoholism, recent PNA and acute exacerbation COPD with intubation Metabolic encephalopathy (Acute) Thrombocytopenia (Acute) Suspect secondary to the toxic effects of EtOH on bone marrow Pneumonia (Acute) MSSA and Serratia Marcesans - more likely than not due to aspiration Iron deficiency (Chronic) Diarrhea (Acute) suspect due to stool softeners Grade III diastolic dysfunction (Chronic) Pulmonary hypertension (Chronic) Moderate with a RV systolic estimated at 60 Mitral regurgitation (Chronic) Hiatal hernia (Chronic) small Esophageal varices determined by endoscopy (Chronic) stage II varices on EGD 04/28/[address] Abdullahi. Esophageal varices due to chronic alcohol dependence and chronic liver disease. You will use the following diet at home:: Cardiac - low salt and low fat Your food should be the consistency of: Regular Your liquids should be the consistency of: Regular/Thin - Continue to follow the recommendations from the speech therapist for swallowing - small bites and sips, one sip at a time, always sit upright at 90 degrees when eating and remain upright for 30 minutes after eating. Discharge Activity: No Restrictions Weight Bearing Status: Full weight bearing Call your doctor if you observe: Fever of 101 or Higher, Inability to urinate, Inability to have a bowel movement, Shortness of breath, Dizziness, Fainting spells, Chest pain, Increased palpitations (irregular heartbeat), Calf discomfort Instructions: Signs of Alcohol Addiction (Alcoholism), Understanding Alcoholism, Alcoholism: Myths and Facts, Alcoholism: Getting Help Additional Instructions: 1. You have done well in rehab and in fact you are the best I have seen you in the past 6 years when I have taken care of you in the hospital. You have not had a drink or smoked a cigarette since May 25. I am very worried that you are not going to follow through on making appts for counselling and developing a good support system of non-addicted friends. Depression, anxiety and addiction are intertwined and often co-exist in addicts. You have not been able to help yourself in the past and we have given you resources but, you will not allow us to help make appts for you [facility] or for [facility] (for outpatient alcohol rehab). An addict may think they will do this by themselves after discharge but, in reality the majority of the time this does not happen. You have phone numbers to call if you are not able to do this ASK FOR HELP. You are reaching a point in your life when you are having problems with damage to your brain and liver and bone marrow that soon will not resolve, even if you stop drinking. It takes a strong person to go to rehab and to get counselling.....be that person. 2. I think it is the alcohol and the Citalopram that are co ntributing to the erectile dysfunction. I am weaning down the Citalopram....you can not just stop taking it. You were on 40 mg when you came to the rehab unit and you will be on 20 mg when you are discharged. Your new PCP, Dr. Mata, will continue to wean this if she thinks it appropriate. Erectile dysfunction also comes from poor blood supply and we know you have vascular disease because you have had a stroke, you have had surgery on the right neck and you also have coronary artery disease. I advise you quit smoking. If the erectile dysfunction continues even with no alcohol and with tapering the Citalopram you can follow up with Dr. Maciel, he is a urologist, to address the erectile dysfunction and give you options for treatment. 3. You missed your last appt [facility] the [facility] for an ultrasound (US) of the carotid arteries. You will need to have an US prior to having a consult with Dr. Gabriel Sanz to see if you need surgery. 4. You are going to need help if you are going to be able to stop drinking and smoking. ASK FOR HELP. There are many resources in place these days to help addicts conquer their addiction.......nobody quits without help. You have to ASK FOR HELP. 5. Untreated sleep apnea can contribute to addiction....this is a well known fact. I think you should get a new sleep study and try to tolerate the mask or nose piece. You already have high pressures in your lungs from untreated sleep apnea. Treating the sleep apnea will likely help with quitting alcohol. You should discuss this with Dr. Mata. I wish I could fix you Dominic and make you quit drinking but, it is not possible. You have to want to quit AND you have to ask for help. Good luck Dominic.....I things work out for you. Allergies/Adverse Reactions: Allergies No Known Allergies Allergy (Verified 05/08/19 14:54) Medications to take at Discharge Clopidogrel Bisulfate [Plavix] 75 mg PO DAILY 09/10/16 Folic Acid 1 mg PO DAILY@0800 09/10/16 Budesonide/Formoterol Fumarate [Symbicort 160-4.5 Mcg Inhaler] 2 puff IH BID 04/25/19 Cholecalciferol (VIT D3) [Vitamin D3] 2,000 unit PO DAILY 04/25/19 Metoprolol Tartrate [Lopressor (beta ran)] 100 mg PO BID 05/25/19 Acetaminophen [Tylenol Tablet] 650 mg PO Q6H PRN PRN tab 06/05/19 Amlodipine [Norvasc] 5 mg PO DAILY 06/05/19 Atorvastatin Calcium [Lipitor] 80 mg PO QHS 06/05/19 Lisinopril [Zestril] 20 mg PO DAILY 06/05/19 Multivitamins,Therapeutic [Multivitamin] 1 tab PO DAILY 06/05/19 Albuterol Inhaler [Ventolin Hfa] 2 puff INHALATION Q4H PRN PRN #1 inhaler Ascorbic Acid [Vitamin C] 500 mg PO BIDCM #60 tab 06/16/19 Citalopram [Celexa] 20 mg PO DAILY #30 tab 06/16/19 Ferrous Sulfate 325 mg PO BIDCM #60 tab 06/16/19 Magnesium Oxide [Mag-Ox 400] 400 mg PO BIDCM #60 tab 06/16/19 Nicotine [Nicoderm Cq] 21 mg TRANSDERM. DAILY #28 patch 06/16/19 Pantoprazole Sodium [Protonix] 20 mg PO BID tab 06/16/19 Thiamine Hydrochloride [Vitamin B1] 100 mg PO DAILYCM #30 tab 06/16/19 buPROPion XL [Wellbutrin Xl] 150 mg PO DAILY #30 tablet.xl 06/16/19 busPIRone [Buspar] 5 mg PO BID #60 tab 06/16/19 busPIRone [Buspar] 15 mg PO BID #60 tab 06/16/19 traMADol [Ultram] 50 mg PO BID #60 tab 06/16/19 The following prescriptions were given: busPIRone [Buspar] 15 mg PO BID #60 tab Transmission Status: Sent to [facility] busPIRone [Buspar] 5 mg PO BID #60 tab Transmission Status: Sent to [facility] Citalopram [Celexa] 20 mg PO DAILY #30 tab Transmission Status: Sent to [facility] Ferrous Sulfate 325 mg PO BIDCM #60 tab Transmission Status: Sent to [facility] Magnesium Oxide [Mag-Ox 400] 400 mg PO BIDCM #60 tab Transmission Status: Sent to [facility] Nicotine [Nicoderm Cq] 21 mg TRANSDERM. DAILY #28 patch Transmission Status: Sent to [facility] traMADol [Ultram] 50 mg PO BID #60 tab Transmission Status: Sent to [facility] Albuterol Inhaler [Ventolin Hfa] 2 puff INHALATION Q4H PRN PRN #1 inhaler PRN Reason: Sob &/Or Wheezing Transmission Status: Sent to [facility] Thiamine Hydrochloride [Vitamin B1] 100 mg PO DAILYCM #30 tab Transmission Status: Sent to [facility] Ascorbic Acid [Vitamin C] 500 mg PO BIDCM #60 tab Transmission Status: Sent to [facility] buPROPion XL [Wellbutrin Xl] 150 mg PO DAILY #30 tablet.xl Transmission Status: Sent to [facility] [Primary [facility]] - Test Results: Test results from this visit will be discussed in further detail at your follow- up appointment, if applicable. Please Follow Up With: Meaghan Please Follow Up With: Mary Mares MD - for Vivitrol injections When: call the office to schedule an appt Please Follow Up With: Sivakumar Mata MD - She will be your PCP in [place]. When: keep the appt we have scheduled for you Proposed Discharge Date: 06/17/19
--- NOTE | 2019-06-17 10:39 | DS.PCM_ITS ---
Discharge Date and Diagnosis Date of Admission: 06/05/19 Date of Discharge: 06/17/19 - Primary Discharge Diagnosis Active and Suspected Problems Debility (Acute) Debility Secondary to chronic alcoholism, recent Aspiration PNA and acute exacerbation COPD with respiratory failure requiring intubation and mechanical ventilation Metabolic encephalopathy (Acute) - resolved Thrombocytopenia - resolved Diarrhea - resolved GERD - not relieved with H2B but resolved with PPI Hypomagnesemia Cognitive dysfunction with delayed processing and difficulty problem solving Elevated Creatinine/renal insufficiency Dysphagia - improved. Still requiring precautions when eating to sit upright and to take small sips and small bites Ataxia - resolved - Secondary Discharge Diagnosis Chronic Problems Iron deficiency (Chronic) Grade III diastolic dysfunction (Chronic) Pulmonary hypertension (Chronic) Moderate with a RV systolic estimated at 60 Mitral regurgitation (Chronic) Hiatal hernia (Chronic) small Esophageal varices determined by endoscopy (Chronic) stage II varices on EGD 04/28/[address] Abdullahi. Esophageal varices due to chronic alcohol dependence and chronic liver disease. Anxiety (Chronic) Iron deficiency Anemia (Chronic) Pancreatitis (Chronic) - asymptomatic at present Stroke (Chronic) - S/P R CEA Alcohol abuse (Chronic) Depression (Chronic) Tobacco Dependence COPD (chronic obstructive pulmonary disease) (Chronic) Hyperlipemia (Chronic) GERD (gastroesophageal reflux disease) (Chronic) HTN (hypertension) (Chronic) Colonic polyp (Chronic) Colon, diverticulosis (Chronic) RENETTA (obstructive sleep apnea) (Chronic) non-compliant with PAP therapy Carotid stenosis (Chronic) has had a R CEA and has known carotid stenosis on the Left. No recent US. Erectile Dysfunction Chronic pain S. Due to old injury to the Left foot and subsequent surgeries limiting ability to ambulate without pain medication Hospital Course and Treatment Imaging Results: Laboratory Results - last 24 hr 06/17/19 06/17/19 05:15 05:15 WBC 9.2 RBC 3.57 L Hgb 9.6 L Hct 31.5 L MCV 88.2 MCH 26.9 L MCHC 30.5 L RDW Std Deviation 56.9 H RDW Coeff of Donnie 17.5 H Plt Count 162 MPV 10.9 Sodium 137 Potassium 4.1 Chloride 105 Carbon Dioxide 24.0 Anion Gap 8 BUN 20 H Creatinine 1.38 H Estim Creat Clear Calc 54.55 Est GFR (MDRD) Af Amer 68 Est GFR (MDRD) Non-Af 56 L BUN/Creatinine Ratio 14.5 Glucose 87 Calcium 9.1 Magnesium 1.7 INTERPRETATION OF RESULTS: MBS Patient presents with mild oropharyngeal dysphagia (R13.12). Oral phase primarily marked by timely mastication of Delmy Doone shortbread cookie resulting in only trace oral residue. Pharyngeal phase primarily marked by slightly reduced closure of the airway during deglutition attributed to reduced laryngeal elevation and anterior hyoid excursion resulting in inconsistent complete epiglottic inversion and poor laryngeal vestibule closure / pressure. The patient had no aspiration during any of the trials completed during this evaluation although still considered at higher risk for aspiration given recent intubation/extubation from respiratory failure secondary to aspiration pneumonia. With larger sequential sips of thin liquids from the cup patient found to have transient penetration. Moderate amounts of pharyngeal residue pre sent more with thicker viscosities. [facility] - [facility] Operations: None Procedures: - - modified barium swallow Summary of Care Provided: The patient is a 58 year old M with a past medical history of chronic alcohol dependence, chronic iron deficiency anemia since August 2018, anxiety/depression, COPD, bilateral carotid stenosis, diverticulosis, colon polyps, GERD, small hiatal hernia, grade 2 esophageal varices, hypertension, hepatitis C per recent H&P but Hep C was negative in September of 2016?, hyperlipidemia, tobacco dependence, obstructive sleep apnea, chronic pancreatitis, stroke, Thrombocytopenia, grade 3 diastolic dysfunction, moderate pulmonary hypertension, mitral valve regurgitation, ED and recent DT's and aspiration PNA with acute hypoxic respiratory failure requiring intubation (intubated and sedated 4 days) who is admitted to the IPRU at [facility] on 06/05/19 for debility due to recent DT's, aspiration PNA and acute respiratory failure requiring intubation. He will do 3 hours or greater of therapy 6 days a week to restore him to a level of function where he can complete his ADL's and is mobile. He expressed interest in an inpt alcohol rehab facility during his admission to the acute side of the hospital. He currently lives in an appt and has 1 and 1/2 flights of stairs to get into his appt. He does not drive. He relies on taxi's for transportation. Lab at admission showed a HGB of 8.9, white blood cell count of 6.4 and platelets of 71,000. The CMP was essentially unremarkable. He was alert and oriented X 3 at presentation to the unit. His gait was noted to be ataxic. He was having difficulty swallowing and he had significant cognitive difficulty with slow processing and inability to problem solve. He received ST/PT/OT daily. He gradually progressed from requiring a FWW for safety and stability to ambulating independently without an AD and without ataxic gait. He had a MBS on 06/11/19. Supervised meals, reduced bolus volume, reduced rate of intake, upright at 90 degrees during p.o. intake and for 30 minutes afterwards was recommended. He was advanced to a regular texture, thin liquid diet. The speech therapist also recommended intensive skilled speech-language intervention targeting continue diet texture management, training and implementation of recommended compensatory strategies, and training and implantation of recommended oral strengthening exercises to facilitate improved swallow function. Lab prior to DC showed a HGB of 9,6 and PLT'S of 162,000. A BMP showed an elevated BUN at 20 with a creatinine of 1.38, up from 1.28 on 06/14/2019. He was instructed to increase his fluid intake. MAG was 1.7 on MAG ox 400 MG bid. A testosterone level was checked during his admission because I felt hypergonadism may be contributing to his chronic depression. The total testosterone was within normal limits at 438. Dominic had been on citalopram for years with no significant improvement in depression. Anxiety was also not well controlled on 10 mg BID. He was using ETOH to self medicate. He isolates and has no support system. He has 1 person he talks to and that is Yaz, who also abuses ETOH. He has little motivation to exercise, socialize or help himself. Buspar was increased to 20 mg BID while in the acute hospital and this was very helpful in controlling anxiety. He was on a high dose of Citalopram at 40 mg with little to no improvement in depression. I also felt the Citalopram was probably contributing to ED which he is fixated on. The Citalopram was decreased to 30 mg for 1 week and then decreased to 20 mg just prior to DC. He was started on Wellbutrin which he has tolerated well without any increase in anxiety. His willingness to participate in activity has increased significantly. He has surely benefitted from increased socialization while in the rehab unit. We talked daily about his plans for DC. After being in the inpt unit a few days Dominic made a decision to not go to inpt alcohol rehab. He was seen by David Ferguson from [facility] and he expressed that he was only interested in individual therapy. He was not interested in group therapy. David gave him a list of resources for individual therapy and the contact numbers. Dominic had 2 programs he was particularly interested in. The nurses and I all offered to help him contact these programs but, he assured us he would do it at home. We discussed Vivitrol to help with maintaining his sobriety and he was sort of interested. He told me he was afraid to take it.....I told him he should be more afraid of not taking the medication and continuing to drink. He already has cognitive dysfunction and he was ataxic while in rehab initially. He is on his way to developing Wernicke's encephalopathy if he hasn't already. He was placed on Thiamine 100 mg daily and was discharged home on thiamine. Fortunately the thrombocytopenia (more likely than not secondary to bone marrow suppression from alcohol) resolved with abstention from ETOH. His hemoglobin did increase during his admission to the rehab unit and he was discharged on ferrous sulfate 325 mg daily with vitamin C 500 mg twice daily to increase absorption from the gastrointestinal tract. Because he requires a PPI to control GERD he will always have a difficult time absorbing iron. If in 4-6 weeks the iron stores are still low he may need to get IV iron sucrose. Stool was heme negative while in the rehab unit. He has had a major GI bleeding the past when taking NSAID's for the chronic pain in his feet that is due to a fall from a roof landing on his feet requiring surgery. He was started on Tramadol 50 mg BID early in his stay in rehab and this was 50% effective in relieving the pain in the L>R foot and allowing him to ambulate much easier. He was discharged on 06/17/19 and will follow up with the [facility] for meds. He will follow up with Dr. Mata in [place] for his local PCP and he has an appt on 07/06/19. He would like to have an US on the carotids in [place] and if necessary he would prefer to have CEA if necessary in [place] with Dr. Gabriel Sanz. He was discharged with [facility] for PT/OT/ST/nursing to help manage the meds. Since he does not have an appt with Dr. Mata for another 2 weeks I will follow him until that time. I ordered a repeat CBC, BMP and MAG in 1 week and I will review thos labs when they become available. HH will draw the blood. He was instructed to call the rehab unit following DC if he needs help scheduling appts or if he resumes drinking. He knows that he needs to ask for help if he wants it because they are a lot of options for him to get help to stop drinking. alert, oriented X 3, pleasant and has a positive attitude Lungs-diminished in the bases but clear to auscultation. Overall the air exchange has improved significantly during his stay in rehab. Heart-regular rate and rhythm, no gallop Abdomen-soft, nontender, nondistended, normal bowel sounds heard No tremors No peripheral edema Skin-no wounds or rashes, he has resolving bruises This note was generated with Yooli dictation software. It may contain incorrect words, spelling, and punctuation that were not noted in checking the note before signing. - Physical Exam Vitals/I&O's: Vital Signs Temp Pulse Resp BP Pulse Ox 98.7 F 75 18 110/60 97 06/17/19 09:38 06/17/19 09:46 06/17/19 09:38 06/17/19 09:46 06/17/19 09:38 Oxygen Delivery Method Room Air Weight: 175 lb 4.28 oz Body Mass Index (BMI) 27.8 Finger Stick Blood Glucose 120 Intake and Output for Last 24 Hours 06/15/19 06/16/19 06/17/19 23:59 23:59 23:59 Intake Total 480 / 480 740 / 740 Output Total 300 / 300 Balance 480 / 480 440 / 440 Laboratory Results 06/17/19 05:15: WBC 9.2, RBC 3.57 L, Hgb 9.6 L, Hct 31.5 L, MCV 88.2, MCH 26.9 L , MCHC 30.5 L, RDW Std Deviation 56.9 H, RDW Coeff of Donnie 17.5 H, Plt Count 162, MPV 10.9 06/17/19 05:15: Sodium 137, Potassium 4.1, Chloride 105, Carbon Dioxide 24.0, Anion Gap 8, BUN 20 H, Creatinine 1.38 H, Estim Creat Clear Calc 54.55, Est GFR (MDRD) Af Amer 68, Est GFR (MDRD) Non-Af 56 L, BUN/Creatinine Ratio 14.5, Glucose 87, Calcium 9.1, Magnesium 1.7 Current Medications Acetaminophen (Tylenol) 650 mg PO Q6H PRN PRN PRN Reason: Pain Score 1-10/10 Last Admin: 06/11/19 10:17 Dose: 650 mg Documented by: Albuterol Sulfate (Ventolin Aerosols) 2.5 mg INHALATION Q2H.RT PRN PRN Reason: dyspnea, wheezing Last Admin: 06/12/19 16:34 Dose: 2.5 mg Documented by: Amlodipine Besylate (Norvasc) 5 mg PO DAILY [facility] Last Admin: 06/17/19 09:45 Dose: 5 mg Documented by: [facility]orb[facility]amin [facility]) [facility] Last Admin: 06/17/19 09:46 Dose: 500 mg Documented by: Atorvastatin Calcium (Lipitor) 80 mg PO QHS [facility] Last Admin: 06/16/19 21:03 Dose: 80 mg Documented by: Bisacodyl (Dulcolax) 10 mg RECTAL .PRN X 1 PRN PRN Reason: Constipation Bupropion HCl (Wellbutrin Xl) 150 mg PO DAILY [facility] Last Admin: 06/17/19 09:45 Dose: 150 mg Documented by: Buspirone HCl (Buspar) 15 mg PO BID [facility] Last Admin: 06/17/19 09:45 Dose: 15 mg Documented by: Buspirone HCl (Buspar) 5 mg PO BID [facility] Last Admin: 06/17/19 09:46 Dose: 5 mg Documented by: Cholecalciferol (Vitamin D (25mcg)) 2,000 unit PO DAILY [facility] Last Admin: 06/17/19 09:47 Dose: 2,000 unit Documented by: Citalopram Hydrobromide (Celexa) 20 mg PO DAILY [facility] Last Admin: 06/17/19 10:18 Dose: Not Given Documented by: Clopidogrel Bisulfate (Plavix) 75 mg PO DAILY [facility] Last Admin: 06/17/19 09:46 Dose: 75 mg Documented by: Ferrous Sulfate (Ferrous Sulfate) 325 mg PO BIDCM [facility] Last Admin: 06/17/19 09:46 Dose: 325 mg Documented by: Folic Acid (Folic Acid) 1 mg PO DAILY@0800 [facility] Last Admin: 06/17/19 09:46 Dose: 1 mg Documented by: Lisinopril (Zestril) 20 mg PO DAILY [facility] Last Admin: 06/17/19 09:47 Dose: 20 mg Documented by: Loperamide HCl (Imodium) 2 mg PO Q4H PRN PRN PRN Reason: DIARRHEA Last Admin: 06/14/19 09:04 Dose: 2 mg Documented by: Magnesium Hydroxide (Milk Of Magnesia) 30 ml PO .PRN X 1 PRN PRN Reason: Constipation Magnesium Oxide (Mag-Ox 400) [facility] Last Admin: 06/17/19 09:46 Dose: 400 mg Documented by: Metoprolol Tartrate (Lopressor (Beta Olga)) 100 mg PO BID [facility] Last Admin: 06/17/19 09:46 Dose: 100 mg Documented by: Multivitamins (Multivitamin) [facility] Last Admin: 06/17/19 09:46 Dose: 1 tablet Documented by: Nicotine (Nicoderm Cq (Pbkc)) 21 mg TRANSDERM. DAILY [facility] Last Admin: 06/17/19 09:47 Dose: 21 mg Documented by: Nutritional Formula (Lactose Free) (Ensure Enlive) 120 ml PO 4X/DAY [facility] Last Admin: 06/17/19 09:52 Dose: 120 ml Documented by: Pantoprazole Sodium (Protonix) 20 mg PO BID [facility] Last Admin: 06/17/19 09:47 Dose: 20 mg Documented by: Senna/Docusate Sodium (Senokot-S, Chen-Colace) 2 tablet PO BID PRN PRN Reason: CONSTIPATION Sodium Chloride () 10 - 40 ml IV UD PRN PRN Reason: SALINE FLUSH Last Admin: 06/06/19 09:48 Dose: 10 ml Documented by: Thiamine HCl (Vitamin B1) [facility] Last Admin: 06/17/19 09:46 Dose: 100 mg Documented by: Tramadol HCl (Ultram) 50 mg PO BID [facility] Last Admin: 06/17/19 09:47 Dose: 50 mg Documented by: Discharge Activity: No Restrictions Weight Bearing Status: Full weight bearing Call your doctor if you observe: Fever of 101 or Higher, Inability to urinate, Inability to have a bowel movement, Shortness of breath, Dizziness, Fainting spells, Chest pain, Increased palpitations (irregular heartbeat), Calf discomfort Home Medications: Medications to take at Discharge Clopidogrel Bisulfate [Plavix] 75 mg PO DAILY 09/10/16 Folic Acid 1 mg PO DAILY@0800 09/10/16 Budesonide/Formoterol Fumarate [Symbicort 160-4.5 Mcg Inhaler] 2 puff IH BID 04/25/19 Cholecalciferol (VIT D3) [Vitamin D3] 2,000 unit PO DAILY 04/25/19 Metoprolol Tartrate [Lopressor (beta olga)] 100 mg PO BID 05/25/19 Acetaminophen [Tylenol Tablet] 650 mg PO Q6H PRN PRN tab 06/05/19 Amlodipine [Norvasc] 5 mg PO DAILY 06/05/19 Atorvastatin Calcium [Lipitor] 80 mg PO QHS 06/05/19 Lisinopril [Zestril] 20 mg PO DAILY 06/05/19 Multivitamins,Therapeutic [Multivitamin] 1 tab PO DAILY 06/05/19 Albuterol Inhaler [Ventolin Hfa] 2 puff INHALATION Q4H PRN PRN #1 inhaler 06/16/19 Ascorbic Acid [Vitamin C] 500 mg PO BIDCM #60 tab 06/16/19 Citalopram [Celexa] 20 mg PO DAILY #30 tab 06/16/19 Ferrous Sulfate 325 mg PO BIDCM #60 tab 06/16/19 Magnesium Oxide [Mag-Ox 400] 400 mg PO BIDCM #60 tab 06/16/19 Nicotine [Nicoderm Cq] 21 mg TRANSDERM. DAILY #28 patch 06/16/19 Pantoprazole Sodium [Protonix] 20 mg PO BID tab 06/16/19 Thiamine Hydrochloride [Vitamin B1] 100 mg PO DAILYCM #30 tab 06/16/19 buPROPion XL [Wellbutrin Xl] 150 mg PO DAILY #30 tablet.xl 06/16/19 busPIRone [Buspar] 5 mg PO BID #60 tab 06/16/19 busPIRone [Buspar] 15 mg PO BID #60 tab 06/16/19 traMADol [Ultram] 50 mg PO BID #60 tab 06/16/19 Following Prescrptions Were Given to Patient: busPIRone [Buspar] 15 mg PO BID #60 tab Transmission Status: Sent to [facility] busPIRone [Buspar] 5 mg PO BID #60 tab Transmission Status: Sent to [facility] Citalopram [Celexa] 20 mg PO DAILY #30 tab Transmission Status: Sent to [facility] Ferrous Sulfate 325 mg PO BIDCM #60 tab Transmission Status: Sent to [facility] Magnesium Oxide [Mag-Ox 400] 400 mg PO BIDCM #60 tab Transmission Status: Sent to [facility] Nicotine [Nicoderm Cq] 21 mg TRANSDERM. DAILY #28 patch Transmission Status: Sent to [facility] traMADol [Ultram] 50 mg PO BID #60 tab Transmission Status: Sent to [facility] Albuterol Inhaler [Ventolin Hfa] 2 puff INHALATION Q4H PRN PRN #1 inhaler PRN Reason: Sob &/Or Wheezing Transmission Status: Sent to [facility] Thiamine Hydrochloride [Vitamin B1] 100 mg PO DAILYCM #30 tab Transmission Status: Sent to [facility] Ascorbic Acid [Vitamin C] 500 mg PO BIDCM #60 tab Transmission Status: Sent to [facility] buPROPion XL [Wellbutrin Xl] 150 mg PO DAILY #30 tablet.xl Transmission Status: Sent to [facility] Other Amb Orders: Basic Metabolic Profile (BMP) Time Frame: 1 Week, Facility: [facility], Location: Laboratory CBC-Complete Blood Cnt No Diff Time Frame: 1 Week, Facility: [facility], Location: Laboratory Magnesium Time Frame: 1 Week, Facility: [facility], Location: Laboratory [facility] [Primary [facility] Provider] - Please Follow Up With: Meaghan Please Follow Up With: Mary Mares MD - for Vivitrol injections When: call the office to schedule an appt Please Follow Up With: Sivakumar Mata MD - She will be your PCP in [place]. When: keep the appt we have scheduled for you Patient Instructions: Signs of Alcohol Addiction (Alcoholism), Understanding Alcoholism, Alcoholism: Myths and Facts, Alcoholism: Getting Help Disposition: Home with Home Health Minutes spent on discharge:: 60 Patient Condition:: Good Medical Necessity - Tobacco Use Smoking Status: Current every day smoker Tobacco Use: Cigarettes Meaningful Use Info Meaningful Use Diagnoses (Choose all that apply): None applicable Inpatient E&M: [id number] [facility]
[2019-06-17 13:04] VITALS: BMI 27.8
[2019-06-17 13:07] VITALS: BP 99/55; PULSE 73; RESP 18; TEMP 37.1; O2SAT 97
--- NOTE | 2019-06-17 13:08 | NURSING ---
discharged home via taxi. discharge instructions, medications and appointments reviewed with pt. denies questions or concerns
== END 2019-06-17 13:11 | disposition home health service (06) | DRG 177 ==
PROVIDERS: Admitting Provider Internal Medicine; Visit Provider Internal Medicine
DX: J69.0 Pneumonitis due to inhalation of food and vomit (principal); G93.41 Metabolic encephalopathy; I50.30 Unspecified diastolic (congestive) heart failure; I85.00 Esophageal varices without bleeding; F10.20 Alcohol dependence, uncomplicated; I27.20 Pulmonary hypertension, unspecified; K21.9 Gastro-esophageal reflux disease without esophagitis; I11.0 Hypertensive heart disease with heart failure; E78.5 Hyperlipidemia, unspecified; G47.33 Obstructive sleep apnea (adult) (pediatric); J44.9 Chronic obstructive pulmonary disease, unspecified; D50.9 Iron deficiency anemia, unspecified; F17.210 Nicotine dependence, cigarettes, uncomplicated; E87.6 Hypokalemia; Z91.19 Patient's noncompliance with other medical treatment and regimen; F41.8 Other specified anxiety disorders; K76.9 Liver disease, unspecified; G89.29 Other chronic pain; R13.12 Dysphagia, oropharyngeal phase
CPT/HCPCS: 36415; 76000; 80048; 80053; 82274; 82962; 83630; 83735; 84100; 84403; 85027; 87493; 87506; 92507; 92523; 92526; 92610; 92611; 94640; 97110; 97112; 97116; 97162; 97165; 97530; 97535; 99406; J7040; A4216

== ENCOUNTER → 2019-06-29 09:30 | Outpatient (CLI) | payer OTHER, SELFPAY ==
[2019-06-17 13:04] VITALS: BMI 27.8
[2019-06-29 10:32] LABS: Hematocrit 37.6 % (40-54); Hemoglobin 12.2 g/dL (13.0-16.5); Mean Corp Hgb Conc 32.4 g/dL (32-36); Mean Corpuscular Volume 89.3 fL (80-94); Mean Platelet Vol. 10.6 fl (6.2-12.0); Platelet Count 134 K/mm3 (150-450); RBC Distribution Width CV 17.7 % (11.6-14.6); RBC Distribution Width SD 58.3 fl (35.1-43.9); Red Blood Count 4.21 M/mm3 (4.6-6.2); White Blood Count 8.5 K/mm3 (4.4-11.0)
[2019-06-29 10:56] LABS: Anion Gap 13 (5-15); BUN 3 mg/dL (7-18); Calcium,Total 8.6 mg/dL (8.5-10.1); Chloride 104 mmol/L (98-107); Creatinine, Serum 0.74 mg/dL (0.70-1.30); EST Glomerular Filtration Rate 115 mL/min (>60); Est Glom Filt Rate - Afr Amer 139 mL/min (>60); Glucose 105 mg/dL (74-106); Magnesium 1.6 mg/dL (1.6-2.6); Potassium 3.8 mmol/L (3.5-5.1); Sodium Level 134 mmol/L (136-145)
== END ==
LOC: LABSPEC 10:22
PROVIDERS: Referring Provider Internal Medicine; Visit Provider Internal Medicine
DX: F10.20 Alcohol dependence, uncomplicated (principal)
CPT/HCPCS: 80048; 83735; 85027

== ENCOUNTER 2019-06-30 22:22 | Inpatient (IN) | payer MEDICARE, OTHER, SELFPAY ==
[2019-06-30 22:23] VITALS: BP 141/130; PULSE 116; RESP 18; RESP 24; TEMP 36.7; O2SAT 96; BMI 23.9
--- NOTE | 2019-06-30 22:38 | EKG12_ITS ---
Test Reason : WEAKNESS Blood Pressure : / mmHG Vent. Rate : 081 BPM Atrial Rate : 081 BPM P-R Int : 126 ms QRS Dur : 072 ms QT Int : 408 ms P-R-T Axes : 063 075 055 degrees QTc Int : 473 ms Normal sinus rhythm Possible Left atrial enlargement Nonspecific ST abnormality Abnormal ECG Confirmed by AMANUEL WASHINGTON, MARTHA ([id number]), news editor LENY SARMIENTO ([id number]) on 07/05/2019 11:25:13 AM Referred By: BRIDGET Confirmed By:SHABBIR VITAL MD
--- NOTE | 2019-06-30 22:39 | ED.DCSUM_ITS ---
History of Present Illness Chief Complaint: Weakness Informant: Patient Onset: Days - 3 days Context: Gradual Onset Timing: Waxes and wanes Current Severity: Moderate Maximum Severity: Moderate Narrative: Patient presents with 3-day history of generalized weakness secondary to nausea, vomiting, and diarrhea. He denies shortness of breath but tells me he does have chest pain. He reports generalized abdominal pain but when further asked states he just feels very queasy. He states today he felt very weak and was unable to get up to the bathroom to get himself a drink of water. He came in tonight via EMS. Patient denies having a fever at home. He is a regular drinker and states he has not been able to drink the past several days. He does not feel like he is going through withdrawal. - Past Medical History (1) Alcohol abuse Status: Chronic (2) Anemia Status: Chronic (3) Anxiety Status: Chronic (4) COPD (chronic obstructive pulmonary disease) Status: Chronic (5) Depression Status: Chronic (6) GERD (gastroesophageal reflux disease) Status: Chronic (7) Grade III diastolic dysfunction Status: Chronic (8) HTN (hypertension) Status: Chronic (9) Hiatal hernia Status: Chronic Comment: small (10) Hyperlipemia Status: Chronic (11) Iron deficiency Status: Chronic (12) RENETTA (obstructive sleep apnea) Status: Chronic Comment: non-compliant with PAP (13) Pulmonary hypertension Status: Chronic Comment: Moderate with a RV systolic estimated at 60 (14) Stroke Status: Chronic Past Medical History - Allergies and Home Meds Allergies/Adverse Reactions: Allergies No Known Allergies Allergy (Verified 05/08/19 14:54) Primary Care Physician: [facility],[place] [Primary Care Provider] - Prior records reviewed: Yes Surgical History: - - surgery on left foot due to accident, carotid endarterectemy on the right side. Lives: Alone Smoking Status: Current every day smoker - Family History Maternal Family History: Reports: No pertinent history - denies cancer, cad, DM, stroke, - - Mother had a history of alcoholism but quit drinking at the age of 55 Paternal Family History: Reports: - - alcoholism, of suicide Review of Systems General: Denies: Chills, Fever Eyes: Denies: Visual changes - bilaterally ENT: Denies: Bilateral ear pain Cardiovascular: Reports: Chest pain. Denies: Palpitations, Heart racing Respiratory: Denies: Dyspnea, Cough Gastrointestinal: Reports: Abdominal pain, Nausea, Vomiting, Diarrhea. Denies: Melena, Hematochezia Genitourinary: Denies: Dysuria Musculoskeletal: Reports: Myalgias Skin: Denies: Rash Neurological: Reports: Weakness Endocrine: Denies: Polyuria, Polydipsia Hematologic: Denies: Easy bruising Allergy: Denies: Uticaria Physical Exam Vital Signs/Narrative: Vital Signs Temp Pulse Resp BP Pulse Ox 06/30/19 22:23 98.1 F 116 H 24 H 141/130 H 96 Inital Vital Signs reviewed: Yes General: Well nourished, Well developed Head: Normocephalic ENT: Moist mucous membranes Neck: Supple, Nontender Cardiovascular: Tachycardia Respiratory: No distress, CTA bilaterally Abdomen: Soft, Tender - Epigastric tenderness to palpation., Hypoactive bowel sounds. Negative for: Guarding, Rebound tenderness Extremities: Nontender Skin: Normal color Neurological: Alert, Oriented x3 Psychological: Normal affect Diagnostic/Tx/Re-eval Impressions Chest X-Ray 06/30/19 22:45 IMPRESSION: 1. No acute cardiopulmonary disease. 2. Interval clearing of recently demonstrated bilateral pulmonary infiltrates. at 2331 Reported and signed by: Tha Shi MD Electronically Signed: Tha Shi, at 23:30 EDT Tel , Service support , 06/30/19 22:45 Chest 1 View (Portable) [RAD] Stat 06/30/19 23:05 Mucosa - Nasopharyngeal Influenza Types A,B Direct FA (OLAYINKA) - Final Laboratory Results 06/30/19 06/30/19 06/30/19 22:30 22:30 22:30 WBC 14.5 H RBC 5.23 Hgb 15.1 Hct 47.4 MCV 90.6 MCH 28.9 MCHC 31.9 L RDW Std Deviation 59.3 H RDW Coeff of Donnie 19.0 H Plt Count 237 MPV 10.2 Immature Gran % (Auto) 0.800 Neut % (Auto) 73.0 H Lymph % (Auto) 16.4 L [place] % (Auto) 9.1 Eos % (Auto) 0.3 Baso % (Auto) 0.4 Absolute Neuts (auto) 10.6 H Absolute Lymphs (auto) 2.38 Nucleated RBC % 0 Sodium 133 L Potassium 3.7 Chloride 96 L Carbon Dioxide 18.0 L Anion Gap 19 H BUN 16 Creatinine 4.44 H Estim Creat Clear Calc 16.96 Est GFR (MDRD) Af Amer 18 L Est GFR (MDRD) Non-Af 15 L BUN/Creatinine Ratio 3.6 L Glucose 128 H Lactic Acid 5.8 H* Calcium 10.0 Total Bilirubin 1.30 H Direct Bilirubin 0.41 H AST 46 H ALT 35 Alkaline Phosphatase 210 H Total Protein 9.2 H Albumin 4.0 Globulin 5.2 H Lipase 148 - EKG Initial EKG Interpretation: Sinus Rhythm - Sinus 81 with no acute ischemia. - Medical Decision Making Patient is initially ordered fentanyl, however as notified by nursing staff patient was hypotensive. This was held. Patient was given Zofran and IV fluids. Blood pressures are increasing with hydration. Test results discussed with the patient. He does have significant acute renal failure and lactic acidosis. Blood cultures have been sent. Patient will be covered with a dose of Zosyn, although I am unsure this is a bacterial infection. Patient states that he ran out of his acid reflux medication. Due to increased stomach acid and dry heaves he was not able to eat. This then led to vomiting and dehydration. At this time patient is starting to feel improved. He will be given mouth swabs. He will be admitted for further treatment. ED Disposition - Plan for ED Patient: Disposition: Acute Care [facility] Diagnosis: Acute renal failure, Lactic acidosis, Gastroenteritis Referrals: [facility] [Primary Care Provider] -
--- NOTE | 2019-06-30 22:45 | RAD_ITS ---
HISTORY: C/O WEAKNESS, VOMITING, NAUSEA, DIARRHEA, SOB FOR 2 DAYS EXAMINATION/TECHNIQUE: XR Chest 1 View: Portable COMPARISON: 05/30/2019 FINDINGS: Interval clearing of recently demonstrated bilateral pulmonary infiltrates. No acute infiltrate. Normal heart size. No vascular congestion or pleural effusion. Intravascular stent at the right paratracheal level. No pneumothorax. RAD/Chest 1 View (Portable) IMPRESSION: 1. No acute cardiopulmonary disease. 2. Interval clearing of recently demonstrated bilateral pulmonary infiltrates. at 2331 Reported and signed by: Tha Shi MD Electronically Signed: Tha Shi, at 23:30 EDT Tel , Service support ,
[2019-06-30 22:54] LABS: Absolute Lymphocyte Count 2.38 X10^3/uL (0.83-4.51); Absolute Neutrophil Count 10.6 X10^3/uL (2.0-7.7); Basophil# 0.06 X10^3/uL; Basophil% 0.4 % (0-1); Eosinophil# 0.04 X10^3/uL; Eosinophils% 0.3 % (0-5); Hematocrit 47.4 % (40-54); Hemoglobin 15.1 g/dL (13.0-16.5); Lymphocyte # 2.38 X10^3/ul (4.0); Lymphocyte % 16.4 % (19-41); Mean Corp Hgb Conc 31.9 g/dL (32-36); Mean Corpuscular Hgb 28.9 pg (27.0-32.0); Mean Corpuscular Volume 90.6 fL (80-94); Mean Platelet Vol. 10.2 fl (6.2-12.0); Monocyte# 1.32 X10^3/uL; Monocyte% 9.1 % (0-10); NRBC Flagged by Analyzer 0 % (0-5); Neutrophil # 10.57 X10^3/uL (2.7-7.7); Platelet Count 237 K/mm3 (150-450); RBC Distribution Width SD 59.3 fl (35.1-43.9); Red Blood Count 5.23 M/mm3 (4.6-6.2); White Blood Count 14.5 K/mm3 (4.4-11.0)
[2019-06-30] MEDS: Ondansetron 4 MG/2 ML Vial IV (22:57)
[2019-06-30] MEDS: 0.9% Normal Saline 1,000 ML 1000 ML IV (22:58)
[2019-06-30 23:02] VITALS: BP 53/36; PULSE 111; RESP 20; O2SAT 95
[2019-06-30 23:20] LABS: AST(SGOT) 46 U/L (15-37); Alanine Aminotransfer ALT/SGPT 35 U/L (16-61); Alkaline Phosphatase 210 U/L (45-117); Anion Gap 19 (5-15); BUN 16 mg/dL (7-18); BUN/Creat Ratio 3.6 RATIO (10-20); Bilirubin, Direct 0.41 mg/dL (0.00-0.30); Chloride 96 mmol/L (98-107); Creatinine, Serum 4.44 mg/dL (0.70-1.30); EST Glomerular Filtration Rate 15 mL/min (>60); Est Glom Filt Rate - Afr Amer 18 mL/min (>60); Estimated Creatinine Clearance 16.96 ml/min; Globulin 5.2 g/dL (2.2-4.2); Glucose 128 mg/dL (74-106); Lipase 148 U/L (73-393); Potassium 3.7 mmol/L (3.5-5.1); Protein, Total 9.2 g/dL (6.4-8.2); Sodium Level 133 mmol/L (136-145)
[2019-06-30 23:31] VITALS: BP 100/86; PULSE 90; RESP 24; TEMP 36.3
[2019-06-30] MEDS: 0.9% Normal Saline 1,000 ML 999 ML IV (23:45)
[2019-06-30 23:48] VITALS: BP 87/63; PULSE 77; RESP 18; TEMP 36.3; O2SAT 100
[2019-06-30 23:50] VITALS: BP 87/63; PULSE 77; RESP 18; TEMP 36.3; O2SAT 100
[2019-06-30 23:50] LABS: Lactic Acid 5.8 mmol/L (0.4-1.9)
--- NOTE | 2019-06-30 23:57 | HP.PCM_ITS ---
Problem List (1) Septic shock Status: Acute (2) Gastroenteritis Status: Acute (3) Acute renal failure Status: Acute (4) Gastroenteritis Status: Acute (5) Lactic acidosis Status: Acute (6) Debility Status: Acute Comment: Debility Secondary to chronic alcoholism, recent PNA and acute exacerbation COPD with intubation (7) Metabolic encephalopathy Status: Acute (8) Alcohol abuse Status: Chronic (9) Anemia Status: Chronic Qualifiers: Anemia type: iron deficiency (10) Anxiety Status: Chronic (11) COPD (chronic obstructive pulmonary disease) Status: Chronic (12) Carotid stenosis Status: Chronic Qualifiers: Laterality: bilateral Qualified Code(s): I65.23 - Occlusion and stenosis of bilateral carotid arteries Comment: has had a R CEA (13) Colon, diverticulosis Status: Chronic (14) Colonic polyp Status: Chronic (15) Depression Status: Chronic (16) Esophageal varices determined by endoscopy Status: Chronic Comment: stage II varices on EGD 04/28/[address] Abdullahi. Esophageal varices due to chronic alcohol dependence and chronic liver disease. (17) GERD (gastroesophageal reflux disease) Status: Chronic (18) Grade III diastolic dysfunction Status: Chronic (19) HTN (hypertension) Status: Chronic (20) Hiatal hernia Status: Chronic Comment: small (21) Hyperlipemia Status: Chronic (22) Iron deficiency Status: Chronic (23) Mitral regurgitation Status: Chronic Qualifiers: Cardiac valve disease etiology: nonrheumatic Qualified Code(s): I34.0 - Nonrheumatic mitral (valve) insufficiency (24) Nicotine addiction Status: Chronic Qualifiers: Nicotine product type: cigarettes (25) RENETTA (obstructive sleep apnea) Status: Chronic Comment: non-compliant with PAP (26) Pancreatitis Status: Chronic Qualifiers: Pancreatitis type: alcohol induced (27) Pulmonary hypertension Status: Chronic Comment: Moderate with a RV systolic estimated at 60 (28) Stroke Status: Chronic Qualifiers: Laterality of affected vessel: right History of Present Illness Date of Admission: 06/30/19 Chief Complaint: Diarrhea The patient is a 58 year old M with a significant history of COPD; and alcoholism who presented with a 2-day history of profuse diarrhea. Associated with his symptoms is nausea and vomiting. Also on the day of presentation he developed some shortness of breath. He has chronic cough unchanged from previous. He has poor appetite and poor fluid intake. Patient attributes his symptoms to missing his acid reflux medication secondary to he not receiving the medication in the mailbox. At the emergency department patient continued to have profuse diarrhea. At one time he was vomiting and after vomiting his blood pressure was recorded as 53/36. Further, the patient had tachycardia and tachypnea. His white count was elev ated at 14.5. His lactic acid was elevated at 5.8. Creatinine was severe elevated at 4.44. Past Medical History Past Medical History (Chronic Problems): Chronic Problems Iron deficiency (Chronic) Grade III diastolic dysfunction (Chronic) Pulmonary hypertension (Chronic) Moderate with a RV systolic estimated at 60 Mitral regurgitation (Chronic) Hiatal hernia (Chronic) small Esophageal varices determined by endoscopy (Chronic) stage II varices on EGD 04/28/[address] Abdullahi. Esophageal varices due to chronic alcohol dependence and chronic liver disease. Anxiety (Chronic) Anemia (Chronic) Pancreatitis (Chronic) Stroke (Chronic) Alcohol abuse (Chronic) Depression (Chronic) COPD (chronic obstructive pulmonary disease) (Chronic) Hyperlipemia (Chronic) GERD (gastroesophageal reflux disease) (Chronic) HTN (hypertension) (Chronic) Colonic polyp (Chronic) Colon, diverticulosis (Chronic) Nicotine addiction (Chronic) RENETTA (obstructive sleep apnea) (Chronic) non-compliant with PAP Carotid stenosis (Chronic) has had a R CEA Allergies No Known Allergies Allergy (Verified 05/08/19 14:54) Home Medications: Ambulatory Orders Medication Instructions Recorded Clopidogrel Bisulfate [Plavix] 75 mg PO DAILY 09/10/16 Folic Acid 1 mg PO DAILY@0800 09/10/16 Budesonide/Formoterol Fumarate 2 puff IH BID 04/25/19 [Symbicort 160-4.5 Mcg Inhaler] Cholecalciferol (VIT D3) [Vitamin 2,000 unit PO DAILY 04/25/19 D3] Metoprolol Tartrate [Lopressor 100 mg PO BID 05/25/19 (beta ran)] Acetaminophen [Tylenol Tablet] 650 mg PO Q6H PRN PRN tab 06/05/19 Amlodipine [Norvasc] 5 mg PO DAILY 06/05/19 Atorvastatin Calcium [Lipitor] 80 mg PO QHS 06/05/19 Lisinopril [Zestril] 20 mg PO DAILY 06/05/19 Multivitamins,Therapeutic 1 tab PO DAILY 06/05/19 [Multivitamin] Albuterol Inhaler [Ventolin Hfa] 2 puff INHALATION Q4H PRN PRN #1 06/16/19 inhaler Ascorbic Acid [Vitamin C] 500 mg PO BIDCM #60 tab 06/16/19 Citalopram [Celexa] 20 mg PO DAILY #30 tab 06/16/19 Ferrous Sulfate 325 mg PO BIDCM #60 tab 06/16/19 Magnesium Oxide [Mag-Ox 400] 400 mg PO BIDCM #60 tab 06/16/19 Nicotine [Nicoderm Cq] 21 mg TRANSDERM. DAILY #28 patch 06/16/19 Pantoprazole Sodium [Protonix] 20 mg PO BID tab 06/16/19 Thiamine Hydrochloride [Vitamin B1] 100 mg PO DAILYCM #30 tab 06/16/19 buPROPion XL [Wellbutrin Xl] 150 mg PO DAILY #30 tablet.xl 06/16/19 busPIRone [Buspar] 5 mg PO BID #60 tab 06/16/19 busPIRone [Buspar] 15 mg PO BID #60 tab 06/16/19 traMADol [Ultram] 50 mg PO BID #60 tab 06/16/19 Surgical History: - - surgery on left foot due to accident, carotid endarterectemy on the right side. Psychiatric History: Anxiety, Depression Lives: Alone Smoking Status: Current every day smoker Tobacco Use: Cigarettes Alcohol: Heavy - *Family History Maternal History Items: Hypertension, No pertinent history - denies cancer, cad, DM, stroke, - - Mother had a history of alcoholism but quit drinking at the age of 55 Paternal History Items: - - alcoholism, of suicide Review of Systems Constitutional: Reports: Anorexia. Denies: Chills, Fever, Weight Change HEENT: Denies: Head Aches, Sinus Congestion, Sinus Drainage Cardiovascular: Denies: Chest Pain, Palpitations Respiratory: Reports: Cough, Shortness of Breath. Denies: Shortness of breath at rest, Sputum production Gastrointestinal: Reports: Abdominal Pain - Chronic, Nausea, Vomiting Genitourinary: Denies: Dysuria Musculoskeletal: Denies: Joint Pain, Joint Tenderness Skin: Denies: Rash, Wounds Neurological: Denies: Numbness, Tingling, Focal weakness Psychiatric: Denies: Anxiety, Depression, Homicidal Ideations, Suicidal Ideations Hematologic/ Lymphatic: Denies: Easy Bruising, Easy Bleeding VTE Information - Inpt Only VTE Present on Admission: No VTE Mechan Device Prophylaxis: None VTE Pharm Prophylaxis ordered?: Yes Patient Problems: Active and Suspected Problems Septic shock (Acute) Gastroenteritis (Acute) Acute renal failure (Acute) Lactic acidosis (Acute) Gastroenteritis (Acute) - Physical Exam Vitals/I&O's: Vital Signs Temp Pulse Resp BP Pulse Ox 97.4 F L 77 18 87/63 L 100 06/30/19 23:31 06/30/19 23:48 06/30/19 23:48 06/30/19 23:48 06/30/19 23:48 Oxygen Delivery Method Room Air Weight: 69.3 kg Body Mass Index (BMI) 23.9 Finger Stick Blood Glucose 120 General: Alert, Oriented x3, Cooperative HEENT: Atraumatic, PERRLA, EOMI, Normocephalic Neck: Supple, No JVD, Negative Carotid Bruits Lungs: Clear to auscultation, Normal air movement Cardiovascular: Regular Rhythm, Normal S1, Normal S2, No murmurs, Tachycardic Abdomen: Bowel Sounds Present, Soft, Non Tender Extremities: No edema, Capillary Refill Less than 3 Seconds Skin: No rashes, No breakdown Musculoskeletal: No Tenderness to Palpation of Joints or Extremities Neurological: Cranial nerves II-XII grossly intact Psych/Mental Status: Normal Affect, Appropriate Microbiology Past 72 Hours 06/30/19 23:05 Mucosa - Nasopharyngeal Influenza Types A,B Direct FA (OLAYINKA) - Final Laboratory Results 06/30/19 22:30: WBC 14.5 H, RBC 5.23, Hgb 15.1, Hct 47.4, MCV 90.6, MCH 28.9, MCHC 31.9 L, RDW Std Deviation 59.3 H, RDW Coeff of Donnie 19.0 H, Plt Count 237, MPV 10.2, Immature Gran % (Auto) 0.800, Neut % (Auto) 73.0 H, Lymph % (Auto) 16.4 L, [place] % (Auto) 9.1, Eos % (Auto) 0.3, Baso % (Auto) 0.4, Absolute Neuts (auto) 10.6 H, Absolute Lymphs (auto) 2.38, Nucleated RBC % 0 06/30/19 22:30: Sodium 133 L, Potassium 3.7, Chloride 96 L, Carbon Dioxide 18.0 L, Anion Gap 19 H, BUN 16, Creatinine 4.44 H, Estim Creat Clear Calc 16.96, Est GFR (MDRD) Af Amer 18 L, Est GFR (MDRD) Non-Af 15 L, BUN/Creatinine Ratio 3.6 L, Glucose 128 H, Calcium 10.0, Total Bilirubin 1.30 H, Direct Bilirubin 0.41 H, AST 46 H, ALT 35, Alkaline Phosphatase 210 H, Total Protein 9.2 H, Albumin 4.0, Globulin 5.2 H, Lipase 148 06/30/19 22:30: Lactic Acid 5.8 H* Current Medications Sodium Chloride () 1,000 mls @ 150 mls/hr IV .Q6H40M [place] Sodium Chloride () 1,000 mls @ 999 mls/hr IV .Q1H1M ONE Stop: 07/01/19 00:00 Last Admin: 06/30/19 23:45 Dose: 999 mls/hr Documented by: Sodium Chloride () 500 mls @ 999 mls/hr IV .Q31M [place] Stop: 07/01/19 00:15 Assessment/Plan All Active Problems Septic shock (Acute) Gastroenteritis (Acute) Acute renal failure (Acute) Lactic acidosis (Acute) Gastroenteritis (Acute) Hyponatremia (Resolved) Elevated troponin (Resolved) COPD exacerbation (Resolved) Debility (Acute) Metabolic encephalopathy (Acute) Thrombocytopenia (Resolved) Pneumonia (Resolved) Neutropenia (Resolved) Hypokalemia (Resolved) Diarrhea (Resolved) GI bleed (Resolved) Hypomagnesemia (Resolved) Hepatitis C (Ruled-out) The patient is a 58 year old M with a significant history of COPD; and alcoholism who presented with a 2-day history of profuse diarrhea; nausea; vomiting; and shortness of breath and found to have tachycardia; tachypnea; elevated lactic acid; and elevated white count consistent with septic shock secondary to acute gastroenteritis Septic shock secondary to acute gastroenteritis Lactic acid: 5.8 RR: Highest respiratory rate of 24. Tachycardia: Highest heart rate of 116 White count: 14,500; with neutrophilic predominance. Patient meets sirs criteria. Creatinine of 4.44. Baseline creatinine is about 1. Blood culture ?2 is pending Influenza screen is negative Impression of chest x-ray: No acute cardiopulmonary disease. Interval clearing of recent demonstrated bilateral pulmonary infiltrates. Chest x-ray was independently reviewed. I agree radiologist interpretation. Antibiotics: Received Zosyn at emergency department. Start patient on ciprofloxacin IV; Flagyl IV and vancomycin p.o. Enteropathogenic panel; ova and parasite and C. difficile test ordered. IV hydration. Received normal saline bolus 30 MS per kilogram per septic shock protocol. Hold home p.o. magnesium. Check magnesium level. Hold home blood pressure medications. Continue patient on normal saline IV hydration 100 mL's per hour. FLEX Creatinine on presentation was 4.44 Baseline creatinine is about 1. BUN over creatinine is 3.6. Likely intrinsic renal from prerenal. IV fluids as above. Urinary electrolytes ordered. Avoid nephrotoxic's. Home lisinopril held. Ultrasound of bladder and kidneys. Consult nephrology. Trend CMP. Hypokalemia Likely secondary to diarrhea Replace. Alcoholism Reportedly the last time he drank was about 4 days ago. At that time he drank 7 bottles of beer. Patient does not look to be in withdrawal. Thiamine continued. Folic acid continued. Tobacco abuse: Counseled. Nicotine patch ordered. Wellbutrin continued. Depression/anxiety: Buspirone and Celexa continued COPD Patient does not appeared to be in exacerbation ICS?LABA continued. PRN albuterol DVT Prophylaxis Subcutaneous heparin Miscellaneous: Patient does not appear to have covid-19 Inpatient E&M: 74908 Init Hosp L3
[2019-07-01] VITALS (39 sets, daily range): BP systolic 82–147; BP diastolic 52–99; PULSE 82–145; RESP 13–24; TEMP 36.7–37.2; O2SAT 95–100; BMI 24.5
[2019-07-01] MEDS: proMETHazine 25 MG/ML Syringe 6.25 MG IV (00:01)
[2019-07-01] MEDS: LORazepam 2 MG/ML Syringe 0.5 MG IV (00:32)
--- NOTE | 2019-07-01 01:12 | ED.RN ---
ATTEMPTED TO CONTACT DAVID MEDELLIN. LINE DISCONNECTED BEFORE I WAS ABLE TO TALK TO ANYONE
--- NOTE | 2019-07-01 01:17 | ED.RN ---
PER [facility] BED COORDINATOR AT [facility], PT ABLE TO BE ADMITTED AT [facility]
--- NOTE | 2019-07-01 01:56 | SEPSISNOTE ---
Sepsis Note - Physical Exam/Vitals Objective: Chest X-Ray 06/30/19 22:45 IMPRESSION: 1. No acute cardiopulmonary disease. 2. Interval clearing of recently demonstrated bilateral pulmonary infiltrates. at 2331 Reported and signed by: Tha Shi MD Electronically Signed: Tha Shi, at 23:30 EDT Tel , Service support , Temp Pulse Resp BP Pulse Ox 98.4 F 90 18 105/69 98 07/01/19 01:00 07/01/19 01:30 07/01/19 01:30 07/01/19 01:30 07/01/19 01:30 06/30/19 06/30/19 06/30/19 22:30 22:30 22:30 WBC 14.5 H RBC 5.23 Hgb 15.1 Hct 47.4 MCV 90.6 MCH 28.9 MCHC 31.9 L RDW Std Deviation 59.3 H RDW Coeff of Donnie 19.0 H Plt Count 237 MPV 10.2 Immature Gran % (Auto) 0.800 Neut % (Auto) 73.0 H Lymph % (Auto) 16.4 L [place] % (Auto) 9.1 Eos % (Auto) 0.3 Baso % (Auto) 0.4 Absolute Neuts (auto) 10.6 H Absolute Lymphs (auto) 2.38 Nucleated RBC % 0 Sodium 133 L Potassium 3.7 Chloride 96 L Carbon Dioxide 18.0 L Anion Gap 19 H BUN 16 Creatinine 4.44 H Estim Creat Clear Calc 16.96 Est GFR (MDRD) Af Amer 18 L Est GFR (MDRD) Non-Af 15 L BUN/Creatinine Ratio 3.6 L Glucose 128 H Lactic Acid 5.8 H* Calcium 10.0 Total Bilirubin 1.30 H Direct Bilirubin 0.41 H AST 46 H ALT 35 Alkaline Phosphatase 210 H Total Protein 9.2 H Albumin 4.0 Globulin 5.2 H Lipase 148 General: Alert, Oriented x3, Cooperative Lungs: Clear to auscultation, Normal air movement Cardiovascular: Regular rate Capillary Refill: <3 seconds Peripheral Pulses: Normal Skin Color: [place] - Assessment/Plan Septic shock secondary to gastroenteritis and severe dehydration. Received normal saline 30 mL's per kilogram bolus per septic shock protocol. Continue patient on maintenance normal saline infusion. Blood cultures, stool studies are pending. Received Zosyn at the emergency department. Continue patient on ciprofloxacin; Flagyl and vancomycin p.o. Lactic acid has been trended.
[2019-07-01] MEDS: 0.9% Normal Saline 1,000 ML 150 ML IV ×3 (02:05→16:46)
--- NOTE | 2019-07-01 02:06 | US_ITS ---
STUDY: RENAL ULTRASOUND - COMPLETE REASON FOR EXAM: Male, 58 years old. FLEX TECHNIQUE: Ultrasound evaluation of the kidneys was performed with real-time and static linares-scale imaging. COMPARISON: None. FINDINGS: RIGHT KIDNEY: Normal location of the right kidney, which is normal in size. The right kidney measures 11.2 cm. There is a normal cortex of the right kidney. The renal cortex measures 2.3 cm. There is no right renal mass or cyst. There are no right renal calculi. There is no right hydronephrosis. DISTAL RIGHT URETER: There is non-visualization of the distal right ureter. There is no demonstrated right ureterovesical junction calculus. There is no demonstrated right ureteral jet. LEFT KIDNEY: Normal location of the left kidney, which is normal in size. The left kidney measures 11.3 cm. There is a normal cortex of the left kidney. The renal cortex measures 1.4 cm. There is no left renal mass or cyst. There are no left renal calculi. There is no left hydronephrosis. DISTAL LEFT URETER: There is non-visualization of the distal left ureter. There is no demonstrated left ureterovesical junction calculus. There is no demonstrated left ureteral jet. BLADDER: The distended urinary bladder has a volume of 22 ml. There is a normal wall thickness of the distended urinary bladder. There is no demonstrated mass within the urinary bladder. There are no demonstrated bladder calculi. US/Kidney and Bladder IMPRESSION: Unremarkable kidneys. Electronically Signed: Kel Srpinger DO at 20:41 EDT Tel , Service support ,
[2019-07-01 02:36] LABS: Magnesium 2.1 mg/dL (1.6-2.6)
[2019-07-01 03:13] LABS: Reflex Lactate? Y
[2019-07-01 03:37] LABS: Lactic Acid 2.5 mmol/L (0.4-1.9)
[2019-07-01 04:05] LABS: Absolute Lymphocyte Count 1.19 X10^3/uL (0.83-4.51); Absolute Neutrophil Count 9.6 X10^3/uL (2.0-7.7); Basophil# 0.02 X10^3/uL; Basophil% 0.2 % (0-1); Eosinophil# 0.01 X10^3/uL; Eosinophils% 0.1 % (0-5); Hematocrit 38.7 % (40-54); Hemoglobin 12.3 g/dL (13.0-16.5); Lymphocyte # 1.19 X10^3/ul (4.0); Lymphocyte % 10.1 % (19-41); Mean Corp Hgb Conc 31.8 g/dL (32-36); Mean Corpuscular Hgb 28.9 pg (27.0-32.0); Mean Corpuscular Volume 90.8 fL (80-94); Mean Platelet Vol. 9.8 fl (6.2-12.0); Monocyte# 0.86 X10^3/uL; Monocyte% 7.3 % (0-10); NRBC Flagged by Analyzer 0 % (0-5); Neutrophil # 9.56 X10^3/uL (2.7-7.7); Neutrophil % 81.3 % (47-70); Platelet Count 143 K/mm3 (150-450); RBC Distribution Width CV 18.2 % (11.6-14.6); RBC Distribution Width SD 59.5 fl (35.1-43.9); Red Blood Count 4.26 M/mm3 (4.6-6.2); White Blood Count 11.8 K/mm3 (4.4-11.0)
[2019-07-01 04:19] LABS: Urine Sodium 21 mmol/L (Not Establ.)
[2019-07-01 04:24] LABS: ALB/GLOB Ratio 0.8 RATIO (0.9-2.4); AST(SGOT) 34 U/L (15-37); Alanine Aminotransfer ALT/SGPT 29 U/L (16-61); Alkaline Phosphatase 158 U/L (45-117); Anion Gap 14 (5-15); BUN 17 mg/dL (7-18); BUN/Creat Ratio 4.5 RATIO (10-20); Calcium,Total 7.9 mg/dL (8.5-10.1); Chloride 104 mmol/L (98-107); Creatinine, Serum 3.82 mg/dL (0.70-1.30); EST Glomerular Filtration Rate 17 mL/min (>60); Est Glom Filt Rate - Afr Amer 21 mL/min (>60); Estimated Creatinine Clearance 19.71 ml/min; Glucose 116 mg/dL (74-106); Sodium Level 136 mmol/L (136-145)
[2019-07-01] MEDS: Acetaminophen 325 MG Tablet 650 MG PO (04:27)
[2019-07-01] MEDS: Heparin Injection (Vial) 5,000 UNIT/ML VIAL 5000 UNIT SC ×3 (05:01→20:49)
[2019-07-01] MEDS: metroNIDAZOLE 500 MG/100 ML BAG 100 MG IV ×3 (05:01→21:07)
[2019-07-01 05:04] LABS: Osmolality, Urine 351 mOsm/KG
[2019-07-01] MEDS: Lactated Ringers 1,000 ML 999 ML IV (06:35)
[2019-07-01] MEDS: Sodium Bicarbonate 650 MG Tablet PO ×4 (06:38→20:49)
[2019-07-01] MEDS: Budesonide Respules 0.5 MG/2 ML AMPUL.NEB. INHALATION ×2 (06:54→19:09)
[2019-07-01] MEDS: Albuterol 2.5 MG/3 ML VIAL.NEB. INHALATION ×3 (06:54→19:09)
[2019-07-01] MEDS: Ondansetron 4 MG/2 ML Vial IV (06:56)
--- NOTE | 2019-07-01 07:49 | PCM.CON.CC ---
Problem List (1) Septic shock Status: Acute (2) Gastroenteritis Status: Acute (3) Acute renal failure Status: Acute (4) Hyponatremia Status: Resolved (5) Debility Status: Acute Comment: Debility Secondary to chronic alcoholism, recent PNA and acute exacerbation COPD with intubation (6) Metabolic encephalopathy Status: Acute (7) Thrombocytopenia Status: Resolved Comment: Suspect secondary to the toxic effects of EtOH on bone marrow (8) Grade III diastolic dysfunction Status: Chronic (9) Pulmonary hypertension Status: Chronic Comment: Moderate with a RV systolic estimated at 60 (10) Mitral regurgitation Status: Chronic Qualifiers: Cardiac valve disease etiology: nonrheumatic Qualified Code(s): I34.0 - Nonrheumatic mitral (valve) insufficiency (11) Hiatal hernia Status: Chronic Comment: small (12) Esophageal varices determined by endoscopy Status: Chronic Comment: stage II varices on EGD 04/28/[address] Abdullahi. Esophageal varices due to chronic alcohol dependence and chronic liver disease. (13) Anxiety Status: Chronic (14) Anemia Status: Chronic Qualifiers: Anemia type: iron deficiency (15) Depression Status: Chronic (16) COPD (chronic obstructive pulmonary disease) Status: Chronic (17) Hyperlipemia Status: Chronic (18) GERD (gastroesophageal reflux disease) Status: Chronic (19) HTN (hypertension) Status: Chronic (20) Nicotine addiction Status: Chronic Qualifiers: Nicotine product type: cigarettes (21) RENETTA (obstructive sleep apnea) Status: Chronic Comment: non-compliant with PAP Reason for Consult Date of Consultation: 07/01/19 Reason for Consultation: Severe sepsis History of Present Illness: The patient is a 58 year old M, with past medical history listed below, who presented to [facility] on 06/30/2019 complaining of a 3-day history of generalized weakness secondary to nausea, vomiting and diarrhea. Patient reportedly had felt very weak and was unable to get up to the bathroom to get himself a drink of water, so called EMS for evaluation. Patient did not believe that he had a fever at home. Patient does report that he is a regular drinker and has not been able to drink in the past several days secondary to this episode. Patient does not feel like he is going through withdrawal. Patient is unable to report if there is been any coffee-ground emesis or bright red blood per rectum. In the ER, patient was noted to be hypotensive. Patient was given Zofran and 30 cc/kg IV fluids. Patient did have a good response to hydration. Patient has significant leukocytosis and acute renal failure with elevated lactate of 5.8. Blood cultures were sent. Patient was given a dose of Zosyn and admitted to the intensive care unit for further evaluation. In the intensive care unit, patient was transitioned to Cipro. Since being in the intensive care unit, patient reports subjective improvement in overall condition. Patient continues to have very watery diarrhea, but has no respiratory complaints. Blood pressures have been marginal despite blood pressure boluses. Patient is not reporting any signs or symptoms of withdrawal at this time. On my questioning, patient states that he has been having diarrhea for several weeks, but it only worsened over the last 3 days. Patient is unclear if he has had any recent antibiotics. Patient has had issues with alcohol withdrawal in the past but I feel go okay this time. Patient does carry a diagnosis of COPD, but he is unaware of any of his testing results. Patient denies any dysuria, trauma, syncope or bleeding symptoms. Review of systems otherwise negative from a constitutional, HEENT, respiratory, cardiovascular, GI, genitourinary, musculoskeletal, skin, neurologic, psychiatric and hematologic system unless stated above. Past Medical History Past Medical History (Chronic Problems): Chronic Problems Iron deficiency (Chronic) Grade III diastolic dysfunction (Chronic) Pulmonary hypertension (Chronic) Moderate with a RV systolic estimated at 60 Mitral regurgitation (Chronic) Hiatal hernia (Chronic) small Esophageal varices determined by endoscopy (Chronic) stage II varices on EGD 04/28/[address] Abdullahi. Esophageal varices due to chronic alcohol dependence and chronic liver disease. Anxiety (Chronic) Anemia (Chronic) Pancreatitis (Chronic) Stroke (Chronic) Alcohol abuse (Chronic) Depression (Chronic) COPD (chronic obstructive pulmonary disease) (Chronic) Hyperlipemia (Chronic) GERD (gastroesophageal reflux disease) (Chronic) HTN (hypertension) (Chronic) Colonic polyp (Chronic) Colon, diverticulosis (Chronic) Nicotine addiction (Chronic) RENETTA (obstructive sleep apnea) (Chronic) non-compliant with PAP Carotid stenosis (Chronic) has had a R CEA Allergies No Known Allergies Allergy (Verified 05/08/19 14:54) Home Medications: Ambulatory Orders Medication Instructions Recorded Clopidogrel Bisulfate [Plavix] 75 mg PO DAILY 09/10/16 Folic Acid 1 mg PO DAILY@0800 09/10/16 Budesonide/Formoterol Fumarate 2 puff IH BID 04/25/19 [Symbicort 160-4.5 Mcg Inhaler] Cholecalciferol (VIT D3) [Vitamin 2,000 unit PO DAILY 04/25/19 D3] Metoprolol Tartrate [Lopressor 100 mg PO BID 05/25/19 (beta ran)] Acetaminophen [Tylenol Tablet] 650 mg PO Q6H PRN PRN tab 06/05/19 Amlodipine [Norvasc] 5 mg PO DAILY 06/05/19 Atorvastatin Calcium [Lipitor] 80 mg PO QHS 06/05/19 Lisinopril [Zestril] 20 mg PO DAILY 06/05/19 Multivitamins,Therapeutic 1 tab PO DAILY 06/05/19 [Multivitamin] Albuterol Inhaler [Ventolin Hfa] 2 puff INHALATION Q4H PRN PRN #1 06/16/19 inhaler Ascorbic Acid [Vitamin C] 500 mg PO BIDCM #60 tab 06/16/19 Citalopram [Celexa] 20 mg PO DAILY #30 tab 06/16/19 Ferrous Sulfate 325 mg PO BIDCM #60 tab 06/16/19 Magnesium Oxide [Mag-Ox 400] 400 mg PO BIDCM #60 tab 06/16/19 Nicotine [Nicoderm Cq] 21 mg TRANSDERM. DAILY #28 patch 06/16/19 Pantoprazole Sodium [Protonix] 20 mg PO BID tab 06/16/19 Thiamine Hydrochloride [Vitamin B1] 100 mg PO DAILYCM #30 tab 06/16/19 buPROPion XL [Wellbutrin Xl] 150 mg PO DAILY #30 tablet.xl 06/16/19 busPIRone [Buspar] 5 mg PO BID #60 tab 06/16/19 busPIRone [Buspar] 15 mg PO BID #60 tab 06/16/19 traMADol [Ultram] 50 mg PO BID #60 tab 06/16/19 Surgical History: - - surgery on left foot due to accident, carotid endarterectemy on the right side. Psychiatric History: Anxiety, Depression Lives: Alone Smoking Status: Current every day smoker Tobacco Use: Cigarettes Alcohol: Heavy - *Family History Maternal History Items: Hypertension, No pertinent history - denies cancer, cad, DM, stroke, - - Mother had a history of alcoholism but quit drinking at the age of 55 Paternal History Items: - - alcoholism, of suicide Review of Systems Comment: See HPI Patient Problems: Active and Suspected Problems Septic shock (Acute) Gastroenteritis (Acute) Acute renal failure (Acute) Lactic acidosis (Acute) Gastroenteritis (Acute) Objective: Chest x-ray was personally reviewed and shows no acute infiltrates. Baseline creatinine is approximately 1. Patient had an echocardiogram on 05/23/2019 showing EF of 65% with stage III diastolic dysfunction, mild to moderate mitral valve insufficiency and a pulmonary artery pressure of 60 mmHg. Patient does not have any pulmonary function tests on record. Patient also had an EEG in May showing severe generalized background slowing, but no seizure activity. Patient did have an endoscopy in April 2019 showing esophageal varices. - Physical Exam Vitals/I&O's: Vital Signs Temp Pulse Resp BP Pulse Ox 36.8 C 95 16 95/52 L 97 07/01/19 05:00 07/01/19 07:00 07/01/19 07:00 07/01/19 07:00 07/01/19 07:00 Oxygen Delivery Method Room Air Weight: 71 kg Body Mass Index (BMI) 24.5 Finger Stick Blood Glucose 120 Intake and Output for Last 24 Hours 06/29/19 06/30/19 07/01/19 23:59 23:59 23:59 Intake Total 2840 / 2840 Output Total 150 / 150 Balance 2690 / 2690 General: Alert, Oriented x3, Cooperative, No apparent distress, - - Some difficulty in word finding. HEENT: Atraumatic, PERRLA, EOMI, Normocephalic, - - No scleral icterus or injection noted Oral: No Gingival or Mucosal Lesions/ Ulcerations, Dry Mucosa Neck: Supple, No JVD, No Nodes, Trachea Midline Lungs: No rhonchi, No wheeze, No rales, Diminished, - - Fair effort Cardiovascular: Normal S1, Normal S2, No murmurs, No rub noted, No Gallop, Tachycardic Abdomen: Bowel Sounds Present, Soft, Non Tender, Non-Distended, Hyperactive Bowel Sounds Extremities: No clubbing, No cyanosis, No edema, Capillary Refill Less than 3 Seconds Skin: No rashes, No breakdown Musculoskeletal: No Tenderness to Palpation of Joints or Extremities Lymphatic: No Cervical, Supraclavicular, or Inguinal Adenopathy Neurological: Cranial nerves II-XII grossly intact, Neuro grossly intact, Motor Exam 5/5 strength throughout Psych/Mental Status: Alert and oriented to time, place, person, mood and affect Microbiology Past 72 Hours 07/01/19 03:15 Stool C. difficile DNA Amplification - Final 06/30/19 23:05 Mucosa - Nasopharyngeal Influenza Types A,B Direct FA (OLAYINKA) - Final Laboratory Results 06/30/19 22:30: WBC 14.5 H, RBC 5.23, Hgb 15.1, Hct 47.4, MCV 90.6, MCH 28.9, MCHC 31.9 L, RDW Std Deviation 59.3 H, RDW Coeff of Donnie 19.0 H, Plt Count 237, MPV 10.2, Immature Gran % (Auto) 0.800, Neut % (Auto) 73.0 H, Lymph % (Auto) 16.4 L, Sebastian % (Auto) 9.1, Eos % (Auto) 0.3, Baso % (Auto) 0.4, Absolute Neuts (auto) 10.6 H, Absolute Lymphs (auto) 2.38, Nucleated RBC % 0 06/30/19 22:30: Sodium 133 L, Potassium 3.7, Chloride 96 L, Carbon Dioxide 18.0 L, Anion Gap 19 H, BUN 16, Creatinine 4.44 H, Estim Creat Clear Calc 16.96, Est GFR (MDRD) Af Amer 18 L, Est GFR (MDRD) Non-Af 15 L, BUN/Creatinine Ratio 3.6 L, Glucose 128 H, Calcium 10.0, Total Bilirubin 1.30 H, Direct Bilirubin 0.41 H, AST 46 H, ALT 35, Alkaline Phosphatase 210 H, Total Protein 9.2 H, Albumin 4.0, Globulin 5.2 H, Lipase 148 06/30/19 22:30: Lactic Acid 5.8 H* 06/30/19 22:30: Magnesium 2.1 07/01/19 02:30: Lactic Acid 2.5 H* 07/01/19 03:15: Urine Osmolality 351 07/01/19 03:15: Urine Creatinine 289.00 07/01/19 03:15: Ur Random Sodium 21 07/01/19 03:45: WBC 11.8 H, RBC 4.26 L, Hgb 12.3 L, Hct 38.7 L, MCV 90.8, MCH 28.9, MCHC 31.8 L, RDW Std Deviation 59.5 H, RDW Coeff of Donnie 18.2 H, Plt Count 143 L, MPV 9.8, Immature Gran % (Auto) 1.000 H, Neut % (Auto) 81.3 H, Lymph % (Auto) 10.1 L, Sebastian % (Auto) 7.3, Eos % (Auto) 0.1, Baso % (Auto) 0.2, Absolute Neuts (auto) 9.6 H, Absolute Lymphs (auto) 1.19, Nucleated RBC % 0 07/01/19 03:45: Sodium 136, Potassium 3.0 L, Chloride 104, Carbon Dioxide 18.0 L, Anion Gap 14, BUN 17, Creatinine 3.82 H, Estim Creat Clear Calc 19.71, Est GFR (MDRD) Af Amer 21 L, Est GFR (MDRD) Non-Af 17 L, BUN/Creatinine Ratio 4.5 L, Glucose 116 H, Calcium 7.9 L, Total Bilirubin 0.90, AST 34, ALT 29, Alkaline Phosphatase 158 H, Total Protein 7.0, Albumin 3.0 L, Globulin 4.0, Albumin/Globulin Ratio 0.8 L Current Medications Acetaminophen (Tylenol) 650 mg PO Q6H PRN PRN PRN Reason: Pain Score 1-10/Temp > 100.7 F Last Admin: 07/01/19 04:27 Dose: 650 mg Documented by: Albuterol Sulfate (Ventolin Aerosols) 2.5 mg INHALATION Q2H PRN PRN PRN Reason: sob/wheezing Albuterol Sulfate (Ventolin Aerosols) 2.5 mg INHALATION Q6HWA.RT [facility] Last Admin: 07/01/19 06:54 Dose: 2.5 mg Documented by: Ascorbic Acid (Vitamin C) 500 mg PO BID@1200,1700 [place] Atorvastatin Calcium (Lipitor) 80 mg PO QHS [place] Budesonide (Pulmicort Aerosol) 0.5 mg INHALATION Q12H.RT [facility] Last Admin: 07/01/19 06:54 Dose: 0.5 mg Documented by: Bupropion HCl (Wellbutrin Xl) 150 mg PO DAILY [facility] Buspirone HCl (Buspar) 5 mg PO BID [place] Buspirone HCl (Buspar) 15 mg PO BID [facility] Cholecalciferol (Vitamin D (25mcg)) 2,000 unit PO DAILY [facility] Citalopram Hydrobromide (Celexa) 20 mg PO DAILY [facility] Clopidogrel Bisulfate (Plavix) 75 mg PO DAILY [facility] Ferrous Sulfate (Ferrous Sulfate) 325 mg PO BID@1200,1700 [facility] Folic Acid (Folic Acid) 1 mg PO DAILY@0800 [facility] Glucagon () 1 mg IM .X1 PRN PRN Reason: Hypoglycemia Heparin Sodium (Porcine) (Heparin Na) 5,000 unit SC Q8 [facility] Last Admin: 07/01/19 05:01 Dose: 5,000 unit Documented by: Sodium Chloride () 1,000 mls @ 150 mls/hr IV .Q6H40M [facility] Last Admin: 07/01/19 05:06 Dose: Not Given Documented by: Ciprofloxacin (Cipro) 400 mg in 200 mls @ 200 mls/hr IV Q24 [facility] Metronidazole (Flagyl) 500 mg in 100 mls @ 100 mls/hr IV Q8 [facility] Last Admin: 07/01/19 05:01 Dose: 100 mls/hr Documented by: Dextrose (Dextrose 10%-Water) 250 mls @ 999 mls/hr IV .Q16M PRN; Protocol PRN Reason: HYPOGLYCEMIA Sodium Chloride () 250 mls @ 15 mls/hr IV .[id number] PRN PRN Reason: Saline Flush Sodium Chloride () 250 mls @ 15 mls/hr IV .[id number] PRN PRN Reason: Additional IVPB Infusion Potassium Chloride () 10 meq in 100 mls @ 100 mls/hr IV BOLUS Q1H [facility] Stop: 07/01/19 10:59 Melatonin (Melatonin) 3 mg PO QHS PRN PRN PRN Reason: INSOMNIA [facility]) [facility] Nicotine (Nicoderm Cq (Pbkc)) 21 mg TRANSDERM. DAILY [facility] Ondansetron HCl (Zofran) 4 mg IV Q6H PRN PRN PRN Reason: NAUSEA/VOMITING Last Admin: 07/01/19 06:56 Dose: 4 mg Documented by: Pantoprazole Sodium (Protonix) 20 mg PO BID [facility] Prochlorperazine Edisylate (Compazine Iv) 5 mg IV Q4H PRN PRN PRN Reason: Breakthrough Nausea/Vomiting Sodium Bicarbonate (Sodium Bicarbonate) 650 mg PO 4X/DAY [facility] Last Admin: 07/01/19 06:38 Dose: 650 mg Documented by: Sodium Chloride () 10 - 40 ml IV UD PRN PRN Reason: SALINE FLUSH Thiamine HCl (Vitamin B1) 100 mg PO DAILYCM [place] Vancomycin HCl () 125 mg PO Q6 [facility] Last Admin: 07/01/19 05:09 Dose: 125 mg Documented by: Clinical Impression(s) from Imaging Studies Chest X-Ray 06/30/19 22:45 IMPRESSION: 1. No acute cardiopulmonary disease. 2. Interval clearing of recently demonstrated bilateral pulmonary infiltrates. at 2331 Reported and signed by: Tha Shi MD Electronically Signed: Tha Shi, at 23:30 EDT Tel , Service support , Assessment/Plan Active and Suspected Problems Septic shock (Acute) Gastroenteritis (Acute) Acute renal failure (Acute) Lactic acidosis (Acute) Gastroenteritis (Acute) RECOMMENDATIONS: 1. Aggressive fluid resuscitation 2. Place central line for possible pressor therapy 3. Await C. difficile. Possibly start p.o. vancomycin 4. Monitor for alcohol withdrawal 5. Empiric bronchodilators, but no steroids indicated IMPRESSIONS: 1. Septic shock secondary to possible acute gastroenteritis with C. difficile Patient with significant leukocytosis. Patient is a poor historian so it is unclear if this has been going on for weeks versus days. Patient does have significant renal dysfunction noted on presentation with hypotension. Patient has received significant fluid boluses and blood pressures remained marginal. Will place a central line for possible pressor therapy. Given patient's diastolic dysfunction, flash pulmonary edema will be a concern. Patient is on Cipro, Flagyl and p.o. vancomycin at this time. C. difficile is currently pending. Abdomen does not appear to be acute to suggest pseudomembranous colitis. Patient does have an extensive history of smoking and other risk factors, so bowel ischemia would be a consideration. 2. Acute kidney injury Baseline creatinine appears to be normal at approximately 1. Findings consistent with prerenal etiology, likely secondary to volume loss with diarrhea. Home lisinopril will be held. Patient has an ultrasound of the bladder and kidneys to rule out postobstructive nephropathy. Nephrology has been consulted. We will continue with aggressive blood pressure management. 3. Hypokalemia Clinical suspicion for GI losses. Patient had an emesis of p.o. potassium, so this will be given IV. May need to supplement additional amounts once central line is placed. 4. History of alcoholism and tobacco abuse Patient reportedly had his last drink approximately 4 days ago. Patient states he drinks between 6 and 12 beers per day. Patient does not appear to be in withdrawal at this time, but folic acid and thiamine have been ordered. Continue to monitor clinically. Would not treat with phenobarbital's time. 5. Suspected COPD/poor historian/esophageal varices/depression/hypertension/hyperlipidemia Complicates care, management, recovery and prognosis. Okay to continue with baseline medications from a respiratory standpoint. Blood pressure medications will be held secondary to acute hypotension. Okay to continue with statin for now. TIME: 33 minutes of critical care time spent addressing patient's septic shock, acute kidney injury, hypokalemia, review of all data and collaboration with care team (7 AM to 8 AM) [id number]: [id number] Critical care first hour
[2019-07-01] MEDS: Potassium Chloride 10mEq/100mL 10 MEQ/100 ML IV.SOLN. 100 MEQ IV BOLUS ×4 (08:12→11:22)
--- NOTE | 2019-07-01 08:32 | CASEMGMT ---
LW/POA forms in summary tab of chart. Friend Yaz is listed as medical POA. ASIF Weir
[2019-07-01] MEDS: Ciprofloxacin 400 MG/200 ML BAG 200 MG IV (08:38)
[2019-07-01] MEDS: Thiamine Hydrochloride 100 MG Tablet PO (08:39)
[2019-07-01] MEDS: buPROPion (XL) 150 MG TABLET.XL PO (08:39)
[2019-07-01] MEDS: Multivitamins,Therapeutic Tablet 1 TABLET PO (08:39)
[2019-07-01] MEDS: Clopidogrel Bisulfate 75 MG Tablet PO (08:39)
[2019-07-01] MEDS: Citalopram 20 MG Tablet PO (08:39)
[2019-07-01] MEDS: busPIRone 5 MG Tablet PO ×2 (08:40→20:49)
[2019-07-01] MEDS: Pantoprazole Sodium 20 MG Tablet PO ×2 (08:40→20:49)
[2019-07-01] MEDS: Folic Acid 1 MG Tablet PO (08:40)
[2019-07-01] MEDS: busPIRone 15 MG TABLET PO ×2 (08:40→20:49)
[2019-07-01 08:43] LABS: Magnesium 1.5 mg/dL (1.6-2.6); Phosphorus 4.4 mg/dL (2.5-4.9)
[2019-07-01 08:59] LABS: International Normalized Ratio 1.3; Prothrombin Time (Protime)PT. 16.1 SECONDS (11.7-14.9)
[2019-07-01 09:00] LABS: Partial Thromboplast Time 34.9 Seconds (24.1-36.2)
--- NOTE | 2019-07-01 09:03 | PCM.PN.HOSP ---
Patient Problems: Active and Suspected Problems Septic shock (Acute) Gastroenteritis (Acute) Acute renal failure (Acute) Lactic acidosis (Acute) Gastroenteritis (Acute) Subjective: Feels little bit better now that he has been resuscitated. Denies any nausea or abdominal pain Vitals/I&O's: Vital Signs Temp Pulse Resp BP Pulse Ox 98.2 F 95 16 95/52 L 97 07/01/19 05:00 07/01/19 07:00 07/01/19 07:00 07/01/19 07:00 07/01/19 07:00 Oxygen Delivery Method Room Air Weight: 156 lb 8.451 oz Body Mass Index (BMI) 24.5 Finger Stick Blood Glucose 120 Intake and Output for Last 24 Hours 06/29/19 06/30/19 07/01/19 23:59 23:59 23:59 Intake Total 4940 / 4940 Output Total 150 / 150 Balance 4790 / 4790 General: Alert, Oriented x3, Cooperative, No apparent distress HEENT: Atraumatic, PERRLA, EOMI, Normocephalic Oral: Moist Mucosa Neck: Supple, No JVD Lungs: Clear to auscultation, Normal air movement, No rhonchi, No wheeze, No rales Cardiovascular: Regular rate, Regular Rhythm, Normal S1, Normal S2, No murmurs Abdomen: Soft, Non Tender, Non-Distended, No Hepato-splenomegaly Extremities: No edema, Capillary Refill Less than 3 Seconds Skin: No rashes, No breakdown Neurological: Neuro grossly intact, Sensory exam intact to light touch and pain Psych/Mental Status: Normal Affect, Appropriate Microbiology Past 72 Hours 07/01/19 03:15 Stool C. difficile DNA Amplification - Final 06/30/19 23:05 Mucosa - Nasopharyngeal Influenza Types A,B Direct FA (OLAYINKA) - Final Laboratory Results 06/30/19 22:30: WBC 14.5 H, RBC 5.23, Hgb 15.1, Hct 47.4, MCV 90.6, MCH 28.9, MCHC 31.9 L, RDW Std Deviation 59.3 H, RDW Coeff of Donnie 19.0 H, Plt Count 237, MPV 10.2, Immature Gran % (Auto) 0.800, Neut % (Auto) 73.0 H, Lymph % (Auto) 16.4 L, Phelps % (Auto) 9.1, Eos % (Auto) 0.3, Baso % (Auto) 0.4, Absolute Neuts (auto) 10.6 H, Absolute Lymphs (auto) 2.38, Nucleated RBC % 0 06/30/19 22:30: Sodium 133 L, Potassium 3.7, Chloride 96 L, Carbon Dioxide 18.0 L, Anion Gap 19 H, BUN 16, Creatinine 4.44 H, Estim Creat Clear Calc 16.96, Est GFR (MDRD) Af Amer 18 L, Est GFR (MDRD) Non-Af 15 L, BUN/Creatinine Ratio 3.6 L, Glucose 128 H, Calcium 10.0, Total Bilirubin 1.30 H, Direct Bilirubin 0.41 H, AST 46 H, ALT 35, Alkaline Phosphatase 210 H, Total Protein 9.2 H, Albumin 4.0, Globulin 5.2 H, Lipase 148 06/30/19 22:30: Lactic Acid 5.8 H* 06/30/19 22:30: Magnesium 2.1 07/01/19 02:30: Lactic Acid 2.5 H* 07/01/19 03:15: Urine Osmolality 351 07/01/19 03:15: Urine Creatinine 289.00 07/01/19 03:15: Ur Random Sodium 21 07/01/19 03:45: WBC 11.8 H, RBC 4.26 L, Hgb 12.3 L, Hct 38.7 L, MCV 90.8, MCH 28.9, MCHC 31.8 L, RDW Std Deviation 59.5 H, RDW Coeff of Donnie 18.2 H, Plt Count 143 L, MPV 9.8, Immature Gran % (Auto) 1.000 H, Neut % (Auto) 81.3 H, Lymph % (Auto) 10.1 L, Phelps % (Auto) 7.3, Eos % (Auto) 0.1, Baso % (Auto) 0.2, Absolute Neuts (auto) 9.6 H, Absolute Lymphs (auto) 1.19, Nucleated RBC % 0 07/01/19 03:45: Sodium 136, Potassium 3.0 L, Chloride 104, Carbon Dioxide 18.0 L, Anion Gap 14, BUN 17, Creatinine 3.82 H, Estim Creat Clear Calc 19.71, Est GFR (MDRD) Af Amer 21 L, Est GFR (MDRD) Non-Af 17 L, BUN/Creatinine Ratio 4.5 L, Glucose 116 H, Calcium 7.9 L, Total Bilirubin 0.90, AST 34, ALT 29, Alkaline Phosphatase 158 H, Total Protein 7.0, Albumin 3.0 L, Globulin 4.0, Albumin/Globulin Ratio 0.8 L 07/01/19 08:15: Phosphorus 4.4, Magnesium 1.5 L 07/01/19 08:15: PT 16.1 H, INR 1.3, APTT 34.9 Current Medications Acetaminophen (Tylenol) 650 mg PO Q6H PRN PRN PRN Reason: Pain Score 1-10/Temp > 100.7 F Last Admin: 07/01/19 04:27 Dose: 650 mg Documented by: Albuterol Sulfate (Ventolin Aerosols) 2.5 mg INHALATION Q2H PRN PRN PRN Reason: sob/wheezing Albuterol Sulfate (Ventolin Aerosols) 2.5 mg INHALATION Q6HWA.RT [facility] Last Admin: 07/01/19 06:54 Dose: 2.5 mg Documented by: Ascorbic Acid (Vitamin C) 500 mg PO BID@1200,1700 [facility] Atorvastatin Calcium (Lipitor) 80 mg PO QHS [place] Budesonide (Pulmicort Aerosol) 0.5 mg INHALATION Q12H.RT [facility] Last Admin: 07/01/19 06:54 Dose: 0.5 mg Documented by: Bupropion HCl (Wellbutrin Xl) 150 mg PO DAILY [facility] Last Admin: 07/01/19 08:39 Dose: 150 mg Documented by: Buspirone HCl (Buspar) 5 mg PO BID [facility] Last Admin: 07/01/19 08:40 Dose: 5 mg Documented by: Buspirone HCl (Buspar) 15 mg PO BID [facility] Last Admin: 07/01/19 08:40 Dose: 15 mg Documented by: Cholecalciferol (Vitamin D (25mcg)) 2,000 unit PO DAILY [facility] Last Admin: 07/01/19 08:39 Dose: 2,000 unit Documented by: Citalopram Hydrobromide (Celexa) 20 mg PO DAILY [facility] Last Admin: 07/01/19 08:39 Dose: 20 mg Documented by: Clopidogrel Bisulfate (Plavix) 75 mg PO DAILY [facility] Last Admin: 07/01/19 08:39 Dose: 75 mg Documented by: Ferrous Sulfate (Ferrous Sulfate) 325 mg PO BID@1200,1700 [facility] Folic Acid (Folic Acid) 1 mg PO DAILY@0800 [facility] Last Admin: 07/01/19 08:40 Dose: 1 mg Documented by: Glucagon () 1 mg IM .X1 PRN PRN Reason: Hypoglycemia Heparin Sodium (Porcine) (Heparin Na) 5,000 unit SC Q8 [facility] Last Admin: 07/01/19 05:01 Dose: 5,000 unit Documented by: Sodium Chloride () 1,000 mls @ 150 mls/hr IV .Q6H40M [facility] Last Admin: 07/01/19 08:52 Dose: 150 mls/hr Documented by: Ciprofloxacin (Cipro) 400 mg in 200 mls @ 200 mls/hr IV Q24 [facility] Last Admin: 07/01/19 08:38 Dose: 200 mls/hr Documented by: Metronidazole (Flagyl) 500 mg in 100 mls @ 100 mls/hr IV Q8 [facility] Last Infusion: 07/01/19 08:11 Dose: Infused Documented by: Dextrose (Dextrose 10%-Water) 250 mls @ 999 mls/hr IV .Q16M PRN; Protocol PRN Reason: HYPOGLYCEMIA Sodium Chloride () 250 mls @ 15 mls/hr IV .[id number] PRN PRN Reason: Saline Flush Sodium Chloride () 250 mls @ 15 mls/hr IV .[id number] PRN PRN Reason: Additional IVPB Infusion Potassium Chloride () 10 meq in 100 mls @ 100 mls/hr IV BOLUS Q1H [facility] Stop: 07/01/19 10:59 Last Admin: 07/01/19 08:12 Dose: 100 mls/hr Documented by: Melatonin (Melatonin) 3 mg PO QHS PRN PRN PRN Reason: INSOMNIA Multivitamins (Multivitamin) 1 tablet PO DAILYCM [facility] Last Admin: 07/01/19 08:39 Dose: 1 tablet Documented by: Nicotine (Nicoderm Cq (Pbkc)) 21 mg TRANSDERM. DAILY [facility] Last Admin: 07/01/19 08:41 Dose: 21 mg Documented by: Ondansetron HCl (Zofran) 4 mg IV Q6H PRN PRN PRN Reason: NAUSEA/VOMITING Last Admin: 07/01/19 06:56 Dose: 4 mg Documented by: Pantoprazole Sodium (Protonix) 20 mg PO BID [facility] Last Admin: 07/01/19 08:40 Dose: 20 mg Documented by: Prochlorperazine Edisylate (Compazine Iv) 5 mg IV Q4H PRN PRN PRN Reason: Breakthrough Nausea/Vomiting Sodium Bicarbonate (Sodium Bicarbonate) 650 mg PO 4X/DAY [facility] Last Admin: 07/01/19 06:38 Dose: 650 mg Documented by: Sodium Chloride () 10 - 40 ml IV UD PRN PRN Reason: SALINE FLUSH Thiamine HCl (Vitamin B1) 100 mg PO DAILYCM [facility] Last Admin: 07/01/19 08:39 Dose: 100 mg Documented by: Vancomycin HCl () 125 mg PO Q6 [facility] Last Admin: 07/01/19 05:09 Dose: 125 mg Documented by: STROKE Vital Signs/Narrative: Vital Signs Pulse Resp BP Pulse Ox 07/01/19 07:00 95 16 95/52 L 97 07/01/19 06:26 102 H 07/01/19 06:00 101 H 13 89/56 L 98 Medical Necessity - Tobacco Use Smoking Status: Current every day smoker Tobacco Use: Cigarettes Assessment/Plan All Active Problems Septic shock (Acute) Gastroenteritis (Acute) Acute renal failure (Acute) Lactic acidosis (Acute) Gastroenteritis (Acute) Hyponatremia (Resolved) Elevated troponin (Resolved) COPD exacerbation (Resolved) Debility (Acute) Metabolic encephalopathy (Acute) Thrombocytopenia (Resolved) Pneumonia (Resolved) Neutropenia (Resolved) Hypokalemia (Resolved) Diarrhea (Resolved) GI bleed (Resolved) Hypomagnesemia (Resolved) Hepatitis C (Ruled-out) 1. Septic shock secondary to gastroenteritis/acute renal failure -He has been having vomiting and diarrhea for the last 4 days. C. difficile test is negative and enteric pathogen panel is pending -Continue with IV fluids, he does have a history of stage III diastolic dysfunction therefore may need to have pressors before more fluid can be given -Appreciate ICU assistance -Kidney function has gone from 4.44 on admission to 3.82, baseline creatinine is 1 -Lactic acid is 2.5 from 5.8 2. COPD -Not currently in exacerbation -Flu was negative -Continue with home inhalers 3. HTN/HLD/chronic diastolic dysfunction -We will hold any home blood pressure medications -Can continue with Lipitor, Plavix 4. Anxiety/depression -Stable -Continue with BuSpar, Celexa 5. Alcohol abuse -He has had recent significant issues with alcoholism, he has had multiple admissions for hyponatremia -It appears that his sodium has improved and that he states he has not been drinking in the last several days to weeks -Continue with his thiamine and folic acid DVT: Heparin Inpatient E&M: 56449 Subs Hosp L2
--- NOTE | 2019-07-01 10:43 | CASEMGMT ---
Addendum entered by Joan Minor 07/02/19 08:44: SW spoke w/palliative care, it has not been initiated, a message was left however pt did not return call. ASIF Weir Original Note: SW reviewed chart, pt familiar to this SW from prior admissions. Palliative referral was made on 05/26/19. SW called palliative care to see if pt is active, message left. SW will follow up w/pt as needed. ASIF Weir
--- NOTE | 2019-07-01 12:00 | CASEMGMT ---
RN CM Note: RN CM assessment deferred as pt is in resp isolation. Next of kin not in hospital at this time. ETOH history. Will defer until tomorrow and evaluate if pt is able to participate. Tosha CHAVEZN RN ACM
--- NOTE | 2019-07-01 13:17 | NURSING ---
ION Dejesus and Dr Skaggs at bedside inserting CVC.
--- NOTE | 2019-07-01 13:20 | RAD_ITS ---
STUDY: X-RAY CHEST REASON FOR EXAM: Male, 58 years old. POST LINE PLACEMENT TECHNIQUE: Single AP portable view of the chest. COMPARISON: Comparison is made with prior examination dated June 30, 2019. FINDINGS: A right-sided jugular venous catheter has been placed. The tip is in the proximal portion of the superior vena cava. EKG electrodes are seen. The lungs are clear and expanded. There is no demonstrated pleural abnormality. Normal size heart. Normal mediastinum and emma. Normal visualized pulmonary arteries. Normal visualized aortic arch and descending thoracic aorta. Normal visualized thoracic spine. Normal visualized ribs, clavicles, and shoulders. There is no demonstrated abnormality of the visualized soft tissue structures of the upper abdomen. RAD/CXR for Line Placement IMPRESSION: The tip of the right internal jugular venous catheter is in the proximal portion of the superior vena cava. Electronically Signed: Remy Trivedi, at 13:37 EDT , Service support ,
[2019-07-01 13:58] LABS: Anion Gap 13 (5-15); BUN 18 mg/dL (7-18); BUN/Creat Ratio 5.5 RATIO (10-20); Calcium,Total 7.6 mg/dL (8.5-10.1); Chloride 109 mmol/L (98-107); Creatinine, Serum 3.27 mg/dL (0.70-1.30); EST Glomerular Filtration Rate 21 mL/min (>60); Est Glom Filt Rate - Afr Amer 25 mL/min (>60); Estimated Creatinine Clearance 23.02 ml/min; Glucose 113 mg/dL (74-106); Potassium 3.2 mmol/L (3.5-5.1); Sodium Level 140 mmol/L (136-145)
--- NOTE | 2019-07-01 14:00 | PCM.OPRPT ---
Report of Operation Date of Procedure: 07/01/19 Post-Operative Diagnosis: Triple-lumen catheter insertion Surgery/Procedure Performed:: Triple-lumen catheter insertion Description of Surgical Findings:: Central line placement procedure note Indication: IV access/hemodynamic instability/vasoactive medications Procedure: A time-out was completed to verify correct patient, indication, medication allergies, procedure, coagulation studies, informed consent signed, and equipment needed. The patient was placed in the supine position for a central line placement to the rt IJ rt vein. The patients rt neck was prepped using chlorhexidine and a full body sterile drape was applied. 1% lidocaine was used to anesthetize the surrounding skin. A 7fr 16 cm blue guard triple lumen catheter introduced into the internal jugular vein using the modified Seldinger technique with the assistance of ultrasound. The catheter was threaded smoothly over the guidewire, the guidewire was removed easily, nonpulsatile blood returned. All ports were aspirated of air and flushed with sterile saline. The catheter was sutured in place and covered with an occlusive dressing impregnated with chlorhexidine. Post-procedure: The patient tolerated the procedure well. Vital signs remained stable. EBL 7 cc. No complications. Chest X Ray ordered to confirm tip placement and the absence of pneumothorax.
[2019-07-01] MEDS: Ferrous Sulfate 325 MG Tablet PO ×2 (14:39→16:42)
[2019-07-01] MEDS: Ascorbic Acid 500 MG Tablet PO ×2 (14:39→16:42)
--- NOTE | 2019-07-01 15:43 | CON.PCM_ITS ---
Consultation - Renal PCP/ Referring MD: Requesting physician: [] Primary care physician: [facility] - History of Present Illness History of Present Illness: The patient is a 58 year old M PMH of iron def anemia, alcoholism, diastolic dysfunction, CVA. Pt presented with severe weakness,N/V and diarrhea for 3 days. Pt started he has been having diarrhea for 3 week but worsened in the last 3 days. In ED he was found to have high lactic acid, low BP and leukocytosis along with metabolic acidosis, and acute kidney injury Pt received IV NS bolus and started on IV Abx for possible colitis. BP responded well to IV fluid. currently on NS at 125 cc/hr SCr improved with IVF.UOP remains marginal Pt denied nausea/vomiting after hospital admission but he still has diarrhea Denied NSAIDs use. No recent IV contrast exposure.No urinary obstructive s ymptoms. ROS: 12 systems review is negative except diarrhea [] - Allergies Allergies: Allergies No Known Allergies Allergy (Verified 05/08/19 14:54) - Current Medications Current Medications: Current Medications Acetaminophen (Tylenol) 650 mg PO Q6H PRN PRN PRN Reason: Pain Score 1-10/Temp > 100.7 F Last Admin: 07/01/19 04:27 Dose: 650 mg Documented by: Albuterol Sulfate (Ventolin Aerosols) 2.5 mg INHALATION Q2H PRN PRN PRN Reason: sob/wheezing Albuterol Sulfate (Ventolin Aerosols) 2.5 mg INHALATION Q6HWA.RT [facility] Last Admin: 07/01/19 13:34 Dose: 2.5 mg Documented by: Ascorbic Acid (Vitamin C) 500 mg PO BID@1200,1700 [facility] Last Admin: 07/01/19 14:39 Dose: 500 mg Documented by: Atorvastatin Calcium (Lipitor) 80 mg PO QHS [place] Budesonide (Pulmicort Aerosol) 0.5 mg INHALATION Q12H.RT [facility] Last Admin: 07/01/19 06:54 Dose: 0.5 mg Documented by: Bupropion HCl (Wellbutrin Xl) 150 mg PO DAILY [facility] Last Admin: 07/01/19 08:39 Dose: 150 mg Documented by: Buspirone HCl (Buspar) 5 mg PO BID [facility] Last Admin: 07/01/19 08:40 Dose: 5 mg Documented by: Buspirone HCl (Buspar) 15 mg PO BID [facility] Last Admin: 07/01/19 08:40 Dose: 15 mg Documented by: Cholecalciferol (Vitamin D (25mcg)) 2,000 unit PO DAILY [facility] Last Admin: 07/01/19 08:39 Dose: 2,000 unit Documented by: Citalopram Hydrobromide (Celexa) 20 mg PO DAILY [facility] Last Admin: 07/01/19 08:39 Dose: 20 mg Documented by: Clopidogrel Bisulfate (Plavix) 75 mg PO DAILY [facility] Last Admin: 07/01/19 08:39 Dose: 75 mg Documented by: Ferrous Sulfate (Ferrous Sulfate) 325 mg PO BID@1200,1700 [facility] Last Admin: 07/01/19 14:39 Dose: 325 mg Documented by: Folic Acid (Folic Acid) 1 mg PO DAILY@0800 [facility] Last Admin: 07/01/19 08:40 Dose: 1 mg Documented by: Glucagon () 1 mg IM .X1 PRN PRN Reason: Hypoglycemia Heparin Sodium (Porcine) (Heparin Na) 5,000 unit SC Q8 [facility] Last Admin: 07/01/19 14:39 Dose: 5,000 unit Documented by: Sodium Chloride () 1,000 mls @ 150 mls/hr IV .Q6H40M [facility] Last Admin: 07/01/19 08:52 Dose: 150 mls/hr Documented by: Ciprofloxacin (Cipro) 400 mg in 200 mls @ 200 mls/hr IV Q24 [facility] Last Infusion: 07/01/19 09:42 Dose: Infused Documented by: Metronidazole (Flagyl) 500 mg in 100 mls @ 100 mls/hr IV Q8 [facility] Last Admin: 07/01/19 14:47 Dose: 100 mls/hr Documented by: Dextrose (Dextrose 10%-Water) 250 mls @ 999 mls/hr IV .Q16M PRN; Protocol PRN Reason: HYPOGLYCEMIA Sodium Chloride () 250 mls @ 15 mls/hr IV .[id number] PRN PRN Reason: Saline Flush Sodium Chloride () 250 mls @ 15 mls/hr IV .[id number] PRN PRN Reason: Additional IVPB Infusion Melatonin (Melatonin) 3 mg PO QHS PRN PRN PRN Reason: INSOMNIA Multivitamins (Multivitamin) 1 tablet PO DAILYCM [facility] Last Admin: 07/01/19 08:39 Dose: 1 tablet Documented by: Nicotine (Nicoderm Cq (Pbkc)) 21 mg TRANSDERM. DAILY [facility] Last Admin: 07/01/19 08:41 Dose: 21 mg Documented by: Ondansetron HCl (Zofran) 4 mg IV Q6H PRN PRN PRN Reason: NAUSEA/VOMITING Last Admin: 07/01/19 06:56 Dose: 4 mg Documented by: Pantoprazole Sodium (Protonix) 20 mg PO BID [facility] Last Admin: 07/01/19 08:40 Dose: 20 mg Documented by: Prochlorperazine Edisylate (Compazine Iv) 5 mg IV Q4H PRN PRN PRN Reason: Breakthrough Nausea/Vomiting Sodium Bicarbonate (Sodium Bicarbonate) 650 mg PO 4X/DAY [facility] Last Admin: 07/01/19 14:38 Dose: 650 mg Documented by: Sodium Chloride () 10 - 40 ml IV UD PRN PRN Reason: SALINE FLUSH Thiamine HCl (Vitamin B1) 100 mg PO DAILYCM [facility] Last Admin: 07/01/19 08:39 Dose: 100 mg Documented by: Vancomycin HCl () 125 mg PO Q6 [facility] Last Admin: 07/01/19 14:39 Dose: Not Given Documented by: - Past Medical History Past Medical History (Chronic Problems): Chronic Problems Iron deficiency (Chronic) Grade III diastolic dysfunction (Chronic) Pulmonary hypertension (Chronic) Moderate with a RV systolic estimated at 60 Mitral regurgitation (Chronic) Hiatal hernia (Chronic) small Esophageal varices determined by endoscopy (Chronic) stage II varices on EGD 04/28/[address] Abdullahi. Esophageal varices due to chronic alcohol dependence and chronic liver disease. Anxiety (Chronic) Anemia (Chronic) Pancreatitis (Chronic) Stroke (Chronic) Alcohol abuse (Chronic) Depression (Chronic) COPD (chronic obstructive pulmonary disease) (Chronic) Hyperlipemia (Chronic) GERD (gastroesophageal reflux disease) (Chronic) HTN (hypertension) (Chronic) Colonic polyp (Chronic) Colon, diverticulosis (Chronic) Nicotine addiction (Chronic) R[place]ETTA (obstructive sleep apnea) (Chronic) non-compliant with PAP Carotid stenosis (Chronic) has had a R CEA - Past Surgical History Surgical History: - - surgery on left foot due to accident, carotid endarterectemy on the right side. - Social History Smoking Status: Current every day smoker Alcohol: Heavy - Family History Maternal History Items: Hypertension, No pertinent history - denies cancer, cad, DM, stroke, - - Mother had a history of alcoholism but quit drinking at the age of 55 Paternal History Items: - - alcoholism, of suicide Patient Problems: Active and Suspected Problems Septic shock (Acute) Gastroenteritis (Acute) Acute renal failure (Acute) Lactic acidosis (Acute) Gastroenteritis (Acute) - Physical Exam Vitals/I&O's: Vital Signs Temp Pulse Resp BP Pulse Ox 98.7 F 120 H 24 H 133/74 H 100 07/01/19 12:00 07/01/19 15:00 07/01/19 15:00 07/01/19 15:00 07/01/19 15:00 Oxygen Delivery Method Room Air Weight: 71 kg Body Mass Index (BMI) 24.5 Finger Stick Blood Glucose 120 Intake and Output for Last 24 Hours 06/29/19 06/30/19 07/01/19 23:59 23:59 23:59 Intake Total 5660 / 5660 Output Total 650 / 650 Balance 5010 / 5010 General: Alert, Oriented x3 HEENT: Atraumatic Oral: Dry Mucosa Neck: Supple, No JVD Lungs: Clear to auscultation, Normal air movement, No rhonchi, No wheeze Cardiovascular: Regular rate, Regular Rhythm, Normal S1, Normal S2 Abdomen: Bowel Sounds Present, Soft, Non Tender, Non-Distended Extremities: No clubbing, No cyanosis Skin: No rashes Lymphatic: No Cervical, Supraclavicular, or Inguinal Adenopathy Neurological: Cranial nerves II-XII grossly intact, Neuro grossly intact Psych/Mental Status: Appropriate Microbiology Past 72 Hours 07/01/19 03:15 Stool Enteric Bacteriology - Final 07/01/19 03:15 Stool C. difficile DNA Amplification - Final 06/30/19 23:05 Mucosa - Nasopharyngeal Influenza Types A,B Direct FA (OLAYINKA) - Final Laboratory Results 06/30/19 22:30: WBC 14.5 H, RBC 5.23, Hgb 15.1, Hct 47.4, MCV 90.6, MCH 28.9, MCHC 31.9 L, RDW Std Deviation 59.3 H, RDW Coeff of Donnie 19.0 H, Plt Count 237, MPV 10.2, Immature Gran % (Auto) 0.800, Neut % (Auto) 73.0 H, Lymph % (Auto) 16.4 L, [place] % (Auto) 9.1, Eos % (Auto) 0.3, Baso % (Auto) 0.4, Absolute Neuts (auto) 10.6 H, Absolute Lymphs (auto) 2.38, Nucleated RBC % 0 06/30/19 22:30: Sodium 133 L, Potassium 3.7, Chloride 96 L, Carbon Dioxide 18.0 L, Anion Gap 19 H, BUN 16, Creatinine 4.44 H, Estim Creat Clear Calc 16.96, Est GFR (MDRD) Af Amer 18 L, Est GFR (MDRD) Non-Af 15 L, BUN/Creatinine Ratio 3.6 L, Glucose 128 H, Calcium 10.0, Total Bilirubin 1.30 H, Direct Bilirubin 0.41 H, AST 46 H, ALT 35, Alkaline Phosphatase 210 H, Total Protein 9.2 H, Albumin 4.0, Globulin 5.2 H, Lipase 148 06/30/19 22:30: Lactic Acid 5.8 H* 06/30/19 22:30: Magnesium 2.1 07/01/19 02:30: Lactic Acid 2.5 H* 07/01/19 03:15: Urine Osmolality 351 07/01/19 03:15: Urine Creatinine 289.00 07/01/19 03:15: Ur Random Sodium 21 07/01/19 03:45: WBC 11.8 H, RBC 4.26 L, Hgb 12.3 L, Hct 38.7 L, MCV 90.8, MCH 28.9, MCHC 31.8 L, RDW Std Deviation 59.5 H, RDW Coeff of Donnie 18.2 H, Plt Count 143 L, MPV 9.8, Immature Gran % (Auto) 1.000 H, Neut % (Auto) 81.3 H, Lymph % (Auto) 10.1 L, [place] % (Auto) 7.3, Eos % (Auto) 0.1, Baso % (Auto) 0.2, Absolute Neuts (auto) 9.6 H, Absolute Lymphs (auto) 1.19, Nucleated RBC % 0 07/01/19 03:45: Sodium 136, Potassium 3.0 L, Chloride 104, Carbon Dioxide 18.0 L , Anion Gap 14, BUN 17, Creatinine 3.82 H, Estim Creat Clear Calc 19.71, Est GFR (MDRD) Af Amer 21 L, Est GFR (MDRD) Non-Af 17 L, BUN/Creatinine Ratio 4.5 L, Glucose 116 H, Calcium 7.9 L, Total Bilirubin 0.90, AST 34, ALT 29, Alkaline Phosphatase 158 H, Total Protein 7.0, Albumin 3.0 L, Globulin 4.0, Albumin/Globulin Ratio 0.8 L 07/01/19 08:15: Sodium 140, Potassium 3.2 L, Chloride 109 H, Carbon Dioxide 18.0 L, Anion Gap 13, BUN 18, Creatinine 3.27 H, Estim Creat Clear Calc 23.02, Est GFR (MDRD) Af Amer 25 L, Est GFR (MDRD) Non-Af 21 L, BUN/Creatinine Ratio 5.5 L, Glucose 113 H, Calcium 7.6 L 07/01/19 08:15: Phosphorus 4.4, Magnesium 1.5 L 07/01/19 08:15: PT 16.1 H, INR 1.3, APTT 34.9 Current Medications Acetaminophen (Tylenol) 650 mg PO Q6H PRN PRN PRN Reason: Pain Score 1-10/Temp > 100.7 F Last Admin: 07/01/19 04:27 Dose: 650 mg Documented by: Albuterol Sulfate (Ventolin Aerosols) 2.5 mg INHALATION Q2H PRN PRN PRN Reason: sob/wheezing Albuterol Sulfate (Ventolin Aerosols) 2.5 mg INHALATION Q6HWA.RT [facility] Last Admin: 07/01/19 13:34 Dose: 2.5 mg Documented by: Ascorbic Acid (Vitamin C) 500 mg PO BID@1200,1700 [facility] Last Admin: 07/01/19 14:39 Dose: 500 mg Documented by: Atorvastatin Calcium (Lipitor) 80 mg PO QHS [facility] Budesonide (Pulmicort Aerosol) 0.5 mg INHALATION Q12H.RT [facility] Last Admin: 07/01/19 06:54 Dose: 0.5 mg Documented by: Bupropion HCl (Wellbutrin Xl) 150 mg PO DAILY [facility] Last Admin: 07/01/19 08:39 Dose: 150 mg Documented by: Buspirone HCl (Buspar) 5 mg PO BID [facility] Last Admin: 07/01/19 08:40 Dose: 5 mg Documented by: Buspirone HCl (Buspar) 15 mg PO BID [facility] Last Admin: 07/01/19 08:40 Dose: 15 mg Documented by: Cholecalciferol (Vitamin D (25mcg)) 2,000 unit PO DAILY [facility] Last Admin: 07/01/19 08:39 Dose: 2,000 unit Documented by: Citalopram Hydrobromide (Celexa) 20 mg PO DAILY [facility] Last Admin: 07/01/19 08:39 Dose: 20 mg Documented by: Clopidogrel Bisulfate (Plavix) 75 mg PO DAILY [facility] Last Admin: 07/01/19 08:39 Dose: 75 mg Documented by: Ferrous Sulfate (Ferrous Sulfate) 325 mg PO BID@1200,1700 [facility] Last Admin: 07/01/19 14:39 Dose: 325 mg Documented by: Folic Acid (Folic Acid) 1 mg PO DAILY@0800 [facility] Last Admin: 07/01/19 08:40 Dose: 1 mg Documented by: Glucagon () 1 mg IM .X1 PRN PRN Reason: Hypoglycemia Heparin Sodium (Porcine) (Heparin Na) 5,000 unit SC Q8 [facility] Last Admin: 07/01/19 14:39 Dose: 5,000 unit Documented by: Sodium Chloride () 1,000 mls @ 150 mls/hr IV .Q6H40M [facility] Last Admin: 07/01/19 08:52 Dose: 150 mls/hr Documented by: Ciprofloxacin (Cipro) 400 mg in 200 mls @ 200 mls/hr IV Q24 [facility] Last Infusion: 07/01/19 09:42 Dose: Infused Documented by: Metronidazole (Flagyl) 500 mg in 100 mls @ 100 mls/hr IV Q8 [facility] Last Admin: 07/01/19 14:47 Dose: 100 mls/hr Documented by: Dextrose (Dextrose 10%-Water) 250 mls @ 999 mls/hr IV .Q16M PRN; Protocol PRN Reason: HYPOGLYCEMIA Sodium Chloride () 250 mls @ 15 mls/hr IV .[id number] PRN PRN Reason: Saline Flush Sodium Chloride () 250 mls @ 15 mls/hr IV .[id number] PRN PRN Reason: Additional IVPB Infusion Melatonin (Melatonin) 3 mg PO QHS PRN PRN PRN Reason: INSOMNIA Multivitamins (Multivitamin) 1 tablet PO DAILYCM [facility] Last Admin: 07/01/19 08:39 Dose: 1 tablet Documented by: Nicotine (Nicoderm Cq (Pbkc)) 21 mg TRANSDERM. DAILY [facility] Last Admin: 07/01/19 08:41 Dose: 21 mg Documented by: Ondansetron HCl (Zofran) 4 mg IV Q6H PRN PRN PRN Reason: NAUSEA/VOMITING Last Admin: 07/01/19 06:56 Dose: 4 mg Documented by: Pantoprazole Sodium (Protonix) 20 mg PO BID [facility] Last Admin: 07/01/19 08:40 Dose: 20 mg Documented by: Prochlorperazine Edisylate (Compazine Iv) 5 mg IV Q4H PRN PRN PRN Reason: Breakthrough Nausea/Vomiting Sodium Bicarbonate (Sodium Bicarbonate) 650 mg PO 4X/DAY [facility] Last Admin: 07/01/19 14:38 Dose: 650 mg Documented by: Sodium Chloride () 10 - 40 ml IV UD PRN PRN Reason: SALINE FLUSH Thiamine HCl (Vitamin B1) 100 mg PO DAILYCM [facility] Last Admin: 07/01/19 08:39 Dose: 100 mg Documented by: Vancomycin HCl () 125 mg PO Q6 [facility] Last Admin: 07/01/19 14:39 Dose: Not Given Documented by: Assessment/Plan All Active Problems Septic shock (Acute) Gastroenteritis (Acute) Acute renal failure (Acute) Lactic acidosis (Acute) Gastroenteritis (Acute) Hyponatremia (Resolved) Elevated troponin (Resolved) COPD exacerbation (Resolved) Debility (Acute) Metabolic encephalopathy (Acute) Thrombocytopenia (Resolved) Pneumonia (Resolved) Neutropenia (Resolved) Hypokalemia (Resolved) Diarrhea (Resolved) GI bleed (Resolved) Hypomagnesemia (Resolved) Hepatitis C (Ruled-out) 1- FLEX . normal SCr at baseline . FLEX is likely prerenal from effective volume related to diarrhea, N/V. Urine sodium is low at 21 supporting this etiology SCr is improving to IVF at the same rate. Keep I>O Avoid diuretics. Keep MAP > 65 No need for [employer] Monitor UOP and RFP 2- hypokalemia from GI loss. Improving with replacement Last K 3.2. Monitor K closely since the patient has FLEX 3- Hypomagnesemia: last Mg level is 1.5. Will replace IV Keeping Mg level wnl helps K level from falling 4- Severe sepsis related to Colitis BP is well controlled with IVF Abx as per the ICU team 5- High anion gap acidosis from low BP . LA level improved from 5.8 to 2.5 HCO3 is 18 No need for HC03 replacement Thank you for allowing me to participate in Mr. Najera's care Renal team will continue to follow Please call if any question at [phone] dkathie patient and ICU staff Clau Oreilly MD
[2019-07-01] MEDS: LORazepam 1 MG Tablet 2 MG PO (16:41)
[2019-07-01] MEDS: Atorvastatin Calcium 80 MG Tablet PO (20:49)
[2019-07-01] MEDS: MELATONIN 3 MG TABLET PO (20:49)
[2019-07-02] VITALS (23 sets, daily range): BP systolic 91–147; BP diastolic 49–90; PULSE 109–133; RESP 13–24; TEMP 36.3–36.8; O2SAT 97–100
[2019-07-02] MEDS: 0.9% Normal Saline 1,000 ML 150 ML IV ×3 (00:56→17:52)
[2019-07-02] MEDS: 0.9% Saline Lock 10 ML Syringe IV (04:11)
[2019-07-02 04:15] LABS: Absolute Neutrophil Count 2.8 X10^3/uL (2.0-7.7); Basophil# 0.02 X10^3/uL; Basophil% 0.5 % (0-1); Eosinophil# 0.07 X10^3/uL; Eosinophils% 1.6 % (0-5); Hematocrit 29.3 % (40-54); Hemoglobin 9.3 g/dL (13.0-16.5); Lymphocyte % 22.5 % (19-41); Mean Corp Hgb Conc 31.7 g/dL (32-36); Mean Corpuscular Volume 91.3 fL (80-94); Mean Platelet Vol. 9.7 fl (6.2-12.0); Monocyte# 0.52 X10^3/uL; Monocyte% 11.7 % (0-10); NRBC Flagged by Analyzer 0 % (0-5); Neutrophil # 2.81 X10^3/uL (2.7-7.7); Neutrophil % 63.2 % (47-70); POSITIVE COUNT YES; Platelet Count 76 K/mm3 (150-450); RBC Distribution Width CV 18.7 % (11.6-14.6); RBC Distribution Width SD 62.8 fl (35.1-43.9); Red Blood Count 3.21 M/mm3 (4.6-6.2); White Blood Count 4.4 K/mm3 (4.4-11.0)
[2019-07-02 04:29] LABS: Differential Indicated SCAN CRITERIA MET
[2019-07-02 05:16] LABS: Anion Gap 9 (5-15); BUN 11 mg/dL (7-18); BUN/Creat Ratio 6.2 RATIO (10-20); Calcium,Total 7.6 mg/dL (8.5-10.1); Chloride 113 mmol/L (98-107); Creatinine, Serum 1.77 mg/dL (0.70-1.30); EST Glomerular Filtration Rate 42 mL/min (>60); Est Glom Filt Rate - Afr Amer 51 mL/min (>60); Estimated Creatinine Clearance 42.53 ml/min; Glucose 104 mg/dL (74-106); Phosphorus 2.5 mg/dL (2.5-4.9); Potassium 2.9 mmol/L (3.5-5.1); Sodium Level 141 mmol/L (136-145)
[2019-07-02 05:17] LABS: Platelet Estimate MOD DEC (ADEQ)
[2019-07-02] MEDS: metroNIDAZOLE 500 MG/100 ML BAG 100 MG IV ×3 (05:29→21:15)
[2019-07-02] MEDS: Heparin Injection (Vial) 5,000 UNIT/ML VIAL 5000 UNIT SC ×3 (05:29→21:18)
[2019-07-02] MEDS: Albuterol 2.5 MG/3 ML VIAL.NEB. INHALATION ×2 (06:41→19:13)
[2019-07-02] MEDS: Budesonide Respules 0.5 MG/2 ML AMPUL.NEB. INHALATION ×2 (06:41→19:13)
--- NOTE | 2019-07-02 07:40 | PN_ITS ---
Subjective: Patient did okay overnight. Patient did have to be placed on a CIWA protocol secondary to tremor and anxiety. Patient reports he is doing well this morning. No diarrhea has been reported overnight. Patient is tolerating room air General: Alert, Oriented x3, Cooperative, - - No conversational dyspnea. HEENT: Atraumatic, PERRLA, EOMI, Normocephalic, - - No scleral icterus or injection noted Oral: Moist Mucosa, No Gingival or Mucosal Lesions/ Ulcerations Neck: Supple, No JVD, No Nodes, Trachea Midline Lungs: Clear to auscultation, No rhonchi, No wheeze, No rales Cardiovascular: Regular rate, Regular Rhythm, Normal S1, Normal S2, No murmurs, No rub noted, No Gallop Abdomen: Bowel Sounds Present, Soft, Non Tender, Non-Distended Extremities: No clubbing, No cyanosis, No edema, Capillary Refill Less than 3 Seconds Skin: No rashes, No breakdown Musculoskeletal: No Tenderness to Palpation of Joints or Extremities Lymphatic: No Cervical, Supraclavicular, or Inguinal Adenopathy Neurological: Cranial nerves II-XII grossly intact, Neuro grossly intact, Motor Exam 5/5 strength throughout Psych/Mental Status: Anxious, Restless Vital Signs Temp Pulse Resp BP Pulse Ox 36.3 C L 118 H 15 91/52 L 99 07/02/19 04:00 07/02/19 06:42 07/02/19 06:42 07/02/19 06:00 07/02/19 06:42 Oxygen Delivery Method Room Air Weight: 71.4 kg Body Mass Index (BMI) 24.5 Finger Stick Blood Glucose 120 Intake and Output for Last 24 Hours 06/30/19 07/01/19 07/02/19 23:59 23:59 23:59 Intake Total 8201.5 / 8201.5 965.0 / 965.0 Output Total 975 / 975 575 / 575 Balance 7226.5 / 7226.5 390.0 / 390.0 Labs (Last 48 Hours) 06/30/19 06/30/19 06/30/19 22:30 22:30 22:30 WBC 14.5 H RBC 5.23 Hgb 15.1 Hct 47.4 MCV 90.6 MCH 28.9 MCHC 31.9 L RDW Std Deviation 59.3 H RDW Coeff of Donnie 19.0 H Plt Count 237 MPV 10.2 Immature Gran % (Auto) 0.800 Neut % (Auto) 73.0 H Lymph % (Auto) 16.4 L [place] % (Auto) 9.1 Eos % (Auto) 0.3 Baso % (Auto) 0.4 Absolute Neuts (auto) 10.6 H Absolute Lymphs (auto) 2.38 Nucleated RBC % 0 Platelet Estimate PT INR APTT Sodium 133 L Potassium 3.7 Chloride 96 L Carbon Dioxide 18.0 L Anion Gap 19 H BUN 16 Creatinine 4.44 H Estim Creat Clear Calc 16.96 Est GFR (MDRD) Af Amer 18 L Est GFR (MDRD) Non-Af 15 L BUN/Creatinine Ratio 3.6 L Glucose 128 H Lactic Acid 5.8 H* Calcium 10.0 Phosphorus Magnesium Total Bilirubin 1.30 H Direct Bilirubin 0.41 H AST 46 H ALT 35 Alkaline Phosphatase 210 H Total Protein 9.2 H Albumin 4.0 Globulin 5.2 H Albumin/Globulin Ratio Lipase 148 Urine Osmolality Ur Random Sodium Urine Creatinine 06/30/19 07/01/19 07/01/19 22:30 02:30 03:15 WBC RBC Hgb Hct MCV MCH MCHC RDW Std Deviation RDW Coeff of Donnie Plt Count MPV Immature Gran % (Auto) Neut % (Auto) Lymph % (Auto) [place] % (Auto) Eos % (Auto) Baso % (Auto) Absolute Neuts (auto) Absolute Lymphs (auto) Nucleated RBC % Platelet Estimate PT INR APTT Sodium Potassium Chloride Carbon Dioxide Anion Gap BUN Creatinine Estim Creat Clear Calc Est GFR (MDRD) Af Amer Est GFR (MDRD) Non-Af BUN/Creatinine Ratio Glucose Lactic Acid 2.5 H* Calcium Phosphorus Magnesium 2.1 Total Bilirubin Direct Bilirubin AST ALT Alkaline Phosphatase Total Protein Albumin Globulin Albumin/Globulin Ratio Lipase Urine Osmolality 351 Ur Random Sodium Urine Creatinine 07/01/19 07/01/19 07/01/19 03:15 03:15 03:45 WBC 11.8 H RBC 4.26 L Hgb 12.3 L Hct 38.7 L MCV 90.8 MCH 28.9 MCHC 31.8 L RDW Std Deviation 59.5 H RDW Coeff of Donnie 18.2 H Plt Count 143 L MPV 9.8 Immature Gran % (Auto) 1.000 H Neut % (Auto) 81.3 H Lymph % (Auto) 10.1 L [place] % (Auto) 7.3 Eos % (Auto) 0.1 Baso % (Auto) 0.2 Absolute Neuts (auto) 9.6 H Absolute Lymphs (auto) 1.19 Nucleated RBC % 0 Platelet Estimate PT INR APTT Sodium Potassium Chloride Carbon Dioxide Anion Gap BUN Creatinine Estim Creat Clear Calc Est GFR (MDRD) Af Amer Est GFR (MDRD) Non-Af BUN/Creatinine Ratio Glucose Lactic Acid Calcium Phosphorus Magnesium Total Bilirubin Direct Bilirubin AST ALT Alkaline Phosphatase Total Protein Albumin Globulin Albumin/Globulin Ratio Lipase Urine Osmolality Ur Random Sodium 21 Urine Creatinine 289.00 07/01/19 07/01/19 07/01/19 03:45 08:15 08:15 WBC RBC Hgb Hct MCV MCH MCHC RDW Std Deviation RDW Coeff of Donnie Plt Count MPV Immature Gran % (Auto) Neut % (Auto) Lymph % (Auto) [place] % (Auto) Eos % (Auto) Baso % (Auto) Absolute Neuts (auto) Absolute Lymphs (auto) Nucleated RBC % Platelet Estimate PT INR APTT Sodium 136 140 Potassium 3.0 L 3.2 L Chloride 104 109 H Carbon Dioxide 18.0 L 18.0 L Anion Gap 14 13 BUN 17 18 Creatinine 3.82 H 3.27 H Estim Creat Clear Calc 19.71 23.02 Est GFR (MDRD) Af Amer 21 L 25 L Est GFR (MDRD) Non-Af 17 L 21 L BUN/Creatinine Ratio 4.5 L 5.5 L Glucose 116 H 113 H Lactic Acid Calcium 7.9 L 7.6 L Phosphorus 4.4 Magnesium 1.5 L Total Bilirubin 0.90 Direct Bilirubin AST 34 ALT 29 Alkaline Phosphatase 158 H Total Protein 7.0 Albumin 3.0 L Globulin 4.0 Albumin/Globulin Ratio 0.8 L Lipase Urine Osmolality Ur Random Sodium Urine Creatinine 07/01/19 07/02/19 07/02/19 08:15 04:00 04:00 WBC 4.4 RBC 3.21 L Hgb 9.3 L Hct 29.3 L MCV 91.3 MCH 29.0 MCHC 31.7 L RDW Std Deviation 62.8 H RDW Coeff of Donnie 18.7 H Plt Count 76 L MPV 9.7 Immature Gran % (Auto) 0.500 Neut % (Auto) 63.2 Lymph % (Auto) 22.5 [place] % (Auto) 11.7 H Eos % (Auto) 1.6 Baso % (Auto) 0.5 Absolute Neuts (auto) 2.8 Absolute Lymphs (auto) 1.00 Nucleated RBC % 0 Platelet Estimate MOD DEC PT 16.1 H INR 1.3 APTT 34.9 Sodium 141 Potassium 2.9 L Chloride 113 H Carbon Dioxide 19.0 L Anion Gap 9 BUN 11 Creatinine 1.77 H Estim Creat Clear Calc 42.53 Est GFR (MDRD) Af Amer 51 L Est GFR (MDRD) Non-Af 42 L BUN/Creatinine Ratio 6.2 L Glucose 104 Lactic Acid Calcium 7.6 L Phosphorus 2.5 Magnesium 2.0 Total Bilirubin Direct Bilirubin AST ALT Alkaline Phosphatase Total Protein Albumin Globulin Albumin/Globulin Ratio Lipase Urine Osmolality Ur Random Sodium Urine Creatinine Microbiology 07/01/19 03:15 Stool Enteric Bacteriology - Final 07/01/19 03:15 Stool C. difficile DNA Amplification - Final 06/30/19 23:05 Mucosa - Nasopharyngeal Influenza Types A,B Direct FA ([facility]) - Final Clinical Impression(s) from Imaging Studies Renal Ultrasound 07/01/19 02:06 IMPRESSION: Unremarkable kidneys. Electronically Signed: Kel Springer DO at 20:41 EDT Tel , Service support , Chest X-Ray 07/01/19 13:20 IMPRESSION: The tip of the right internal jugular venous catheter is in the proximal portion of the superior vena cava. Electronically Signed: Remy Trivedi at 13:37 EDT , Service support , Medical Necessity - Tobacco Use Smoking Status: Current every day smoker Tobacco Use: Cigarettes Assessment/Plan All Active Problems Septic shock (Acute) Gastroenteritis (Acute) Acute renal failure (Acute) Lactic acidosis (Acute) Gastroenteritis (Acute) Hyponatremia (Resolved) Elevated troponin (Resolved) COPD exacerbation (Resolved) Debility (Acute) Metabolic encephalopathy (Acute) Thrombocytopenia (Resolved) Pneumonia (Resolved) Neutropenia (Resolved) Hypokalemia (Resolved) Diarrhea (Resolved) GI bleed (Resolved) Hypomagnesemia (Resolved) Hepatitis C (Ruled-out) RECOMMENDATIONS: 1. Likely okay to slow down IV fluids 2. Continue CIWA protocol 3. Aggressive potassium repletion 4. Empiric bronchodilators, but no steroids indicated 5. Potential transfer from the intensive care unit later today IMPRESSIONS: 1. Septic shock secondary to possible acute gastroenteritis Patient with significant leukocytosis. Patient is a poor historian so it is unclear if this has been going on for weeks versus days. Patient does have significant renal dysfunction noted on presentation with hypotension. Patient has received significant fluid boluses and blood pressures remained marginal. No pressors had to be reinitiated. Given patient's diastolic dysfunction, flash pulmonary edema will be a concern. Patient is on Cipro and Flagyl at this time, but enteric work-up is negative. Abdomen does not appear to be acute to suggest pseudomembranous colitis. Patient does have an extensive history of smoking and other risk factors, so bowel ischemia would be a consideration. 2. Acute kidney injury Baseline creatinine appears to be normal at approximately 1. Findings consistent with prerenal etiology, likely secondary to volume loss with diarrhea. Home lisinopril will be held. Bladder and kidneys normal on ultrasound. Nephrology has been consulted. We will continue with aggressive blood pressure management. 3. Hypokalemia Clinical suspicion for GI losses. Aggressive supplementation has been ordered. Most will be IV given patient's history of emesis with p.o. potassium.. May need to supplement additional amounts once central line is placed. 4. History of alcoholism and tobacco abuse Patient reportedly had his last drink approximately 4 days ago. Patient states he drinks between 6 and 12 beers per day. Patient showed some signs of possible withdrawal yesterday, so CIWA protocol was initiated. Continue to monitor clinically. Would not treat with phenobarbital at this time. 5. Suspected COPD/poor historian/esophageal varices/depression/ hypertension/hyperlipidemia Complicates care, management, recovery and prognosis. Okay to continue with baseline medications from a respiratory standpoint. Blood pressure medications will be held secondary to acute hypotension. Okay to continue with statin for now. Inpatient E&M: [id number] [facility] L3
[2019-07-02] MEDS: Folic Acid 1 MG Tablet PO (08:41)
[2019-07-02] MEDS: busPIRone 5 MG Tablet PO ×2 (08:42→21:14)
[2019-07-02] MEDS: Citalopram 20 MG Tablet PO (08:42)
[2019-07-02] MEDS: Multivitamins,Therapeutic Tablet 1 TABLET PO (08:42)
[2019-07-02] MEDS: Thiamine Hydrochloride 100 MG Tablet PO (08:42)
[2019-07-02] MEDS: busPIRone 15 MG TABLET PO ×2 (08:43→21:15)
[2019-07-02] MEDS: Clopidogrel Bisulfate 75 MG Tablet PO (08:44)
[2019-07-02] MEDS: Sodium Bicarbonate 650 MG Tablet PO (08:44)
[2019-07-02] MEDS: Pantoprazole Sodium 20 MG Tablet PO ×2 (08:44→21:14)
[2019-07-02] MEDS: Ciprofloxacin 400 MG/200 ML BAG 200 MG IV ×2 (08:48→22:47)
--- NOTE | 2019-07-02 09:02 | PCM.PN.REN ---
Patient Problems: Active and Suspected Problems Septic shock (Acute) Gastroenteritis (Acute) Acute renal failure (Acute) Lactic acidosis (Acute) Gastroenteritis (Acute) Subjective: Pt is doing well. No nausea No vomiting. No diarrhea Breathing is stable - Physical Exam Vitals/I&O's: Vital Signs Temp Pulse Resp BP Pulse Ox 97.3 F L 124 H 16 141/76 H 98 07/02/19 04:00 07/02/19 07:00 07/02/19 07:00 07/02/19 07:00 07/02/19 07:00 Oxygen Delivery Method Room Air Weight: 71.4 kg Body Mass Index (BMI) 24.5 Finger Stick Blood Glucose 120 Intake and Output for Last 24 Hours 06/30/19 07/01/19 07/02/19 23:59 23:59 23:59 Intake Total 8201.5 / 8201.5 1402.5 / 1402.5 Output Total 975 / 975 575 / 575 Balance 7226.5 / 7226.5 827.5 / 827.5 General: Oriented x3 HEENT: Atraumatic Oral: Moist Mucosa Neck: Supple, No JVD Lungs: Clear to auscultation, Normal air movement, No rhonchi Cardiovascular: Regular Rhythm, Tachycardic Abdomen: Bowel Sounds Present, Soft, Non Tender, Non-Distended Extremities: No clubbing, No cyanosis, No edema Skin: No rashes Lymphatic: No Cervical, Supraclavicular, or Inguinal Adenopathy Neurological: Cranial nerves II-XII grossly intact, Neuro grossly intact Psych/Mental Status: Appropriate Microbiology Past 72 Hours 07/01/19 03:15 Stool Enteric Bacteriology - Final 07/01/19 03:15 Stool C. difficile DNA Amplification - Final 06/30/19 23:05 Mucosa - Nasopharyngeal Influenza Types A,B Direct FA ([facility]) - Final Laboratory Results 07/01/19 08:15: Sodium 140, Potassium 3.2 L, Chloride 109 H, Carbon Dioxide 18.0 L, Anion Gap 13, BUN 18, Creatinine 3.27 H, Estim Creat Clear Calc 23.02, Est GFR (MDRD) Af Amer 25 L, Est GFR (MDRD) Non-Af 21 L, BUN/Creatinine Ratio 5.5 L, Glucose 113 H, Calcium 7.6 L 07/02/19 04:00: WBC 4.4, RBC 3.21 L, Hgb 9.3 L, Hct 29.3 L, MCV 91.3, MCH 29.0, MCHC 31.7 L, RDW Std Deviation 62.8 H, RDW Coeff of Donnie 18.7 H, Plt Count 76 L, MPV 9.7, Immature Gran % (Auto) 0.500, Neut % (Auto) 63.2, Lymph % (Auto) 22.5, [place] % (Auto) 11.7 H, Eos % (Auto) 1.6, Baso % (Auto) 0.5, Absolute Neuts (auto) 2.8, Absolute Lymphs (auto) 1.00, Nucleated RBC % 0, Platelet Estimate MOD 07/02/19 04:00: Sodium 141, Potassium 2.9 L, Chloride 113 H, Carbon Dioxide 19.0 L, Anion Gap 9, BUN 11, Creatinine 1.77 H, Estim Creat Clear Calc 42.53, Est GFR (MDRD) Af Amer 51 L, Est GFR (MDRD) Non-Af 42 L, BUN/Creatinine Ratio 6.2 L, Glucose 104, Calcium 7.6 L, Phosphorus 2.5, Magnesium 2.0 Current Medications Acetaminophen (Tylenol) 650 mg PO Q6H PRN PRN PRN Reason: Pain Score 1-10/Temp > 100.7 F Last Admin: 07/01/19 04:27 Dose: 650 mg Documented by: Albuterol Sulfate (Ventolin Aerosols) 2.5 mg INHALATION Q2H PRN PRN PRN Reason: sob/wheezing Albuterol Sulfate (Ventolin Aerosols) 2.5 mg INHALATION Q6HWA.RT [facility] Last Admin: 07/02/19 06:41 Dose: 2.5 mg Documented by: Ascorbic Acid (Vitamin C) 500 mg PO BID@1200,1700 [facility] Last Admin: 07/01/19 16:42 Dose: 500 mg Documented by: Atorvastatin Calcium (Lipitor) 80 mg PO QHS [facility] Last Admin: 07/01/19 20:49 Dose: 80 mg Documented by: Budesonide (Pulmicort Aerosol) 0.5 mg INHALATION Q12H.RT [facility] Last Admin: 07/02/19 06:41 Dose: 0.5 mg Documented by: Bupropion HCl (Wellbutrin Xl) 150 mg PO DAILY [facility] Last Admin: 07/01/19 08:39 Dose: 150 mg Documented by: Buspirone HCl (Buspar) 5 mg PO BID [facility] Last Admin: 07/02/19 08:42 Dose: 5 mg Documented by: Buspirone HCl (Buspar) 15 mg PO BID [facility] Last Admin: 07/02/19 08:43 Dose: 15 mg Documented by: Cholecalciferol (Vitamin D (25mcg)) 2,000 unit PO DAILY [facility] Last Admin: 07/01/19 08:39 Dose: 2,000 unit Documented by: Citalopram Hydrobromide (Celexa) 20 mg PO DAILY [facility] Last Admin: 07/02/19 08:42 Dose: 20 mg Documented by: Clopidogrel Bisulfate (Plavix) 75 mg PO DAILY [facility] Last Admin: 07/02/19 08:44 Dose: 75 mg Documented by: Ferrous Sulfate (Ferrous Sulfate) 325 mg PO BID@1200,1700 [facility] Last Admin: 07/01/19 16:42 Dose: 325 mg Documented by: Folic Acid (Folic Acid) 1 mg PO DAILY@0800 [facility] Last Admin: 07/02/19 08:41 Dose: 1 mg Documented by: Glucagon () 1 mg IM .X1 PRN PRN Reason: Hypoglycemia Heparin Sodium (Porcine) (Heparin Na) 5,000 unit SC Q8 [facility] Last Admin: 07/02/19 05:29 Dose: 5,000 unit Documented by: Sodium Chloride () 1,000 mls @ 150 mls/hr IV .Q6H40M [facility] Last Admin: 07/02/19 08:40 Dose: 150 mls/hr Documented by: Ciprofloxacin (Cipro) 400 mg in 200 mls @ 200 mls/hr IV Q24 [facility] Last Admin: 07/02/19 08:48 Dose: 200 mls/hr Documented by: Metronidazole (Flagyl) 500 mg in 100 mls @ 100 mls/hr IV Q8 [facility] Last Infusion: 07/02/19 06:29 Dose: Infused Documented by: Dextrose (Dextrose 10%-Water) 250 mls @ 999 mls/hr IV .Q16M PRN; Protocol PRN Reason: HYPOGLYCEMIA Sodium Chloride () 250 mls @ 15 mls/hr IV .[id number] PRN PRN Reason: Saline Flush Last Infusion: 07/02/19 06:34 Dose: 0 mls/hr Documented by: Sodium Chloride () 250 mls @ 15 mls/hr IV .[id number] PRN PRN Reason: Additional IVPB Infusion Lorazepam (Ativan) 2 mg PO Q2H PRN PRN; Protocol PRN Reason: CIWA score > 8 but <15 Last Admin: 07/01/19 16:41 Dose: 2 mg Documented by: Lorazepam (Ativan) 2 mg PO UD PRN; Protocol PRN Reason: CIWA score >/=15. Lorazepam (Ativan) 2 mg IV Q2H PRN PRN; Protocol PRN Reason: CIWA score > 8 but <15 Lorazepam (Ativan) 2 mg IV UD PRN; Protocol PRN Reason: CIWA score >/=15. Melatonin (Melatonin) 3 mg PO QHS PRN PRN PRN Reason: INSOMNIA Last Admin: 07/01/19 20:49 Dose: 3 mg Documented by: [facility]) [facility] Last Admin: 07/02/19 08:42 Dose: 1 tablet Documented by: Nicotine (Nicoderm Cq (Pbkc)) 21 mg TRANSDERM. DAILY [facility] Last Admin: 07/02/19 08:43 Dose: 21 mg Documented by: Ondansetron HCl (Zofran) 4 mg IV Q6H PRN PRN PRN Reason: NAUSEA/VOMITING Last Admin: 07/01/19 06:56 Dose: 4 mg Documented by: Pantoprazole Sodium (Protonix) 20 mg PO BID [facility] Last Admin: 07/02/19 08:44 Dose: 20 mg Documented by: Prochlorperazine Edisylate (Compazine Iv) 5 mg IV Q4H PRN PRN PRN Reason: Breakthrough Nausea/Vomiting Sodium Bicarbonate (Sodium Bicarbonate) 650 mg PO 4X/DAY [facility] Last Admin: 07/02/19 08:44 Dose: 650 mg Documented by: Sodium Chloride () 10 - 40 ml IV UD PRN PRN Reason: SALINE FLUSH Sodium Chloride () 10 - 40 ml IV UD PRN PRN Reason: Multilumen/Fuller Flush Last Admin: 07/02/19 04:11 Dose: 30 ml Documented by: Sodium Chloride (0.9% Nacl (Sterile) Posiflush) 10 - 40 ml IV UD PRN PRN Reason: Port access or dressing change Thiamine [facility]amin B1) [facility] Last Admin: 07/02/19 08:42 Dose: 100 mg Documented by: Medical Necessity - Tobacco Use Smoking Status: Current every day smoker Tobacco Use: Cigarettes Assessment/Plan All Active Problems Septic shock (Acute) Gastroenteritis (Acute) Acute renal failure (Acute) Lactic acidosis (Acute) Gastroenteritis (Acute) Hyponatremia (Resolved) Elevated troponin (Resolved) COPD exacerbation (Resolved) Debility (Acute) Metabolic encephalopathy (Acute) Thrombocytopenia (Resolved) Pneumonia (Resolved) Neutropenia (Resolved) Hypokalemia (Resolved) Diarrhea (Resolved) GI bleed (Resolved) Hypomagnesemia (Resolved) Hepatitis C (Ruled-out) 1- FLEX . normal SCr at baseline . FLEX is likely prerenal from effective volume related to diarrhea, N/V. Urine sodium is low at 21 supporting this etiology SCr is improving with IVF. SCr is down to 1.7 mg/dL. Non oliguric. UOP ~ 1 L can stop IVF Keep I>O Avoid diuretics. Keep MAP > 65 Monitor UOP and RFP 2- hypokalemia from GI loss. Still low K is 2.9. Pt will received 60 mEq Mg is nwl this am Monitor K after replacement 3- Hypomagnesemia:replaced IV Mg is 2.0 Keeping Mg level wnl helps K level from falling 4- Severe sepsis related to Colitis BP is well controlled with IVF. LA level improved Abx as per the ICU team 5- High anion gap acidosis from low BP . LA level improved from 5.8 to 2.5 HCO3 is 19 will d/c HCO3 tabs Renal team will continue to follow Please call if any question at [phone] Roman Oreilly MD
[2019-07-02] MEDS: LORazepam 1 MG Tablet 2 MG PO ×3 (10:11→21:44)
[2019-07-02] MEDS: Ascorbic Acid 500 MG Tablet PO ×2 (10:13→17:55)
[2019-07-02] MEDS: Ferrous Sulfate 325 MG Tablet PO ×2 (10:13→17:55)
[2019-07-02] MEDS: buPROPion (XL) 150 MG TABLET.XL PO (10:13)
--- NOTE | 2019-07-02 10:25 | CASEMGMT ---
SW spoke w/pt in room, reviewed how he is managing at home, and discussed discharge plan. PCP: Dr. [facility] [facility] Insurance: [place] Benefits Prescription benefit: Uses [place] [facility]acy: [facility] [place] for immediate prescriptions LW/POA: Friend Yaz is POA. Pt states daughter who is listed second, is no longer involved. Pt declined to update forms at this time, SW gave pt rack card to call SW dept in the future should he want to update the forms. LNOK: Mother, brother, sister, friend and friend's mother, daughter--through as per pt daughter not involved. Other than daughter pt reports to have good support. Living arrangements: Pt lives alone in an apartment, flight of steps to apartment. DME/SNF/HHC: Pt states has wheelchair, no other DME. Pt denies need for any additional DME. Pt was recently in rehab, left June 16. He was set up w/[facility] and is current with them for PT/OT/nursing/SW. Mental Health/Substance abuse: Pt has history of depression and anxiety, is taking medications for this. Pt does not feel suicidal, does not want to harm self at this time. Pt does state drank one time since leaving rehab on the . Pt declines referrals for alcohol abuse at this time, states was given numbers by Dr. Carrington when he was in rehab, for both alcohol abuse and mental health. Pt plans to follow up with the resources given to pt by Dr. Carrington when he feels better. Palliative care: SW spoke w/pt again about palliative care, pt is still interested in a referral to palliative. SW will re-refer pt. Plan: Pt plans to return home w/home health care, will follow up w/palliative care when they call. SW called [facility], confirmed pt has them for PT/OT/nursing/SW. SW asked [facility] to please have their SW also follow up w/pt regarding LW/POA. SW placed green sheet on chart w/order to resume home health care. SW called Palliative care, message left and referral faxed. SW remains available for any additional social service needs. ASIF Weir
--- NOTE | 2019-07-02 10:26 | CASEMGMT ---
RNB CM Note: Intro role of CM to patient. Discussed [facility] Transfer Declination Form. Pt does not wish to Transfer to [facility]. Discussed that billing for [facility] admission would be under [facility] A. Pt is agreeable and signed form. Clinical information and form faxed to [facility]. Tosha PEREIRA RN ACM
--- NOTE | 2019-07-02 10:40 | PN_ITS ---
Patient Problems: Active and Suspected Problems Septic shock (Acute) Gastroenteritis (Acute) Acute renal failure (Acute) Lactic acidosis (Acute) Gastroenteritis (Acute) Subjective: Patient seen and examined. He was awake and alert and had no complaints. He said diarrhea had resolved. He denied fever, chills, palpitations, cough or chest pain, nausea vomiting diarrhea. Review of systems otherwise negative. Labs and vitals reviewed. He has been tachycardic with heart rate of 124. He is otherwise hemodynamically stable. Labs reviewed. Potassium is down to 2.9 today and creatinine is down to 1.77. Leukocytosis has also resolved with WBC of 4.4. Hemoglobin dropped to 9.3 from 12.3 yesterday. Vitals/I&O's: Vital Signs Temp Pulse Resp BP Pulse Ox 97.3 F L 124 H 16 141/76 H 98 07/02/19 04:00 07/02/19 07:00 07/02/19 07:00 07/02/19 07:00 07/02/19 07:00 Oxygen Delivery Method Room Air Weight: 157 lb 6.561 oz Body Mass Index (BMI) 24.5 Finger Stick Blood Glucose 120 Intake and Output for Last 24 Hours 06/30/19 07/01/19 07/02/19 23:59 23:59 23:59 Intake Total 8201.5 / 8201.5 1402.5 / 1402.5 Output Total 975 / 975 575 / 575 Balance 7226.5 / 7226.5 827.5 / 827.5 General: Alert, Oriented x3, Cooperative, No apparent distress HEENT: Atraumatic, PERRLA, EOMI, Normocephalic Oral: Dry Mucosa Neck: Supple, No JVD, Negative Carotid Bruits Lungs: Clear to auscultation, Normal air movement, No rhonchi, No wheeze, No rales Cardiovascular: Regular rate, Regular Rhythm, Normal S1, Normal S2, No murmurs Abdomen: Bowel Sounds Present, Soft, Non Tender, Non-Distended, No Hepato- splenomegaly Extremities: No clubbing, No cyanosis, No edema, Capillary Refill Less than 3 Seconds Skin: No rashes, No breakdown Musculoskeletal: No Tenderness to Palpation of Joints or Extremities Lymphatic: No Cervical, Supraclavicular, or Inguinal Adenopathy Neurological: Cranial nerves II-XII grossly intact, Neuro grossly intact, Motor Exam 5/5 strength throughout Psych/Mental Status: Normal Affect, Appropriate, Alert and oriented to time, place, person, mood and affect Microbiology Past 72 Hours 07/01/19 03:15 Stool Enteric Bacteriology - Final 07/01/19 03:15 Stool C. difficile DNA Amplification - Final 06/30/19 23:05 Mucosa - Nasopharyngeal Influenza Types A,B Direct FA (OLAYINKA) - Final Laboratory Results 07/01/19 08:15: Sodium 140, Potassium 3.2 L, Chloride 109 H, Carbon Dioxide 18.0 L, Anion Gap 13, BUN 18, Creatinine 3.27 H, Estim Creat Clear Calc 23.02, Est GFR (MDRD) Af Amer 25 L, Est GFR (MDRD) Non-Af 21 L, BUN/Creatinine Ratio 5.5 L, Glucose 113 H, Calcium 7.6 L 07/02/19 04:00: WBC 4.4, RBC 3.21 L, Hgb 9.3 L, Hct 29.3 L, MCV 91.3, MCH 29.0, MCHC 31.7 L, RDW Std Deviation 62.8 H, RDW Coeff of Donnie 18.7 H, Plt Count 76 L, MPV 9.7, Immature Gran % (Auto) 0.500, Neut % (Auto) 63.2, Lymph % (Auto) 22.5, [place] % (Auto) 11.7 H, Eos % (Auto) 1.6, Baso % (Auto) 0.5, Absolute Neuts (auto) 2.8, Absolute Lymphs (auto) 1.00, Nucleated RBC % 0, Platelet Estimate MOD DEC 07/02/19 04:00: Sodium 141, Potassium 2.9 L, Chloride 113 H, Carbon Dioxide 19.0 L, Anion Gap 9, BUN 11, Creatinine 1.77 H, Estim Creat Clear Calc 42.53, Est GFR (MDRD) Af Amer 51 L, Est GFR (MDRD) Non-Af 42 L, BUN/Creatinine Ratio 6.2 L, Glucose 104, Calcium 7.6 L, Phosphorus 2.5, Magnesium 2.0 Diagnostic Data Renal Ultrasound 07/01/19 02:06 IMPRESSION: Unremarkable kidneys. Electronically Signed: Kel Springer DO at 20:41 EDT Tel , Service support , Chest X-Ray 07/01/19 13:20 IMPRESSION: The tip of the right internal jugular venous catheter is in the proximal portion of the superior vena cava. Electronically Signed: Remy Trivedi, at 13:37 EDT , Service support , Current Medications Acetaminophen (Tylenol) 650 mg PO Q6H PRN PRN PRN Reason: Pain Score 1-10/Temp > 100.7 F Last Admin: 07/01/19 04:27 Dose: 650 mg Documented by: Albuterol Sulfate (Ventolin Aerosols) 2.5 mg INHALATION Q2H PRN PRN PRN Reason: sob/wheezing Ascorbic Acid (Vitamin C) 500 mg PO BID@1200,1700 [facility] Last Admin: 07/02/19 10:13 Dose: 500 mg Documented by: Atorvastatin Calcium (Lipitor) 80 mg PO QHS [facility] Last Admin: 07/01/19 20:49 Dose: 80 mg Documented by: Budesonide (Pulmicort Aerosol) 0.5 mg INHALATION Q12H.RT [facility] Last Admin: 07/02/19 06:41 Dose: 0.5 mg Documented by: Bupropion HCl (Wellbutrin Xl) 150 mg PO DAILY [facility] Last Admin: 07/02/19 10:13 Dose: 150 mg Documented by: Buspirone HCl (Buspar) 5 mg PO BID [facility] Last Admin: 07/02/19 08:42 Dose: 5 mg Documented by: Buspirone HCl (Buspar) 15 mg PO BID [facility] Last Admin: 07/02/19 08:43 Dose: 15 mg Documented by: Cholecalciferol (Vitamin D (25mcg)) 2,000 unit PO DAILY [facility] Last Admin: 07/02/19 10:12 Dose: 2,000 unit Documented by: Citalopram Hydrobromide (Celexa) 20 mg PO DAILY [facility] Last Admin: 07/02/19 08:42 Dose: 20 mg Documented by: Clopidogrel Bisulfate (Plavix) 75 mg PO DAILY [facility] Last Admin: 07/02/19 08:44 Dose: 75 mg Documented by: Ferrous Sulfate (Ferrous Sulfate) 325 mg PO BID@1200,1700 [facility] Last Admin: 07/02/19 10:13 Dose: 325 mg Documented by: Folic Acid (Folic Acid) 1 mg PO DAILY@0800 [facility] Last Admin: 07/02/19 08:41 Dose: 1 mg Documented by: Glucagon () 1 mg IM .X1 PRN PRN Reason: Hypoglycemia Heparin Sodium (Porcine) (Heparin Na) 5,000 unit SC Q8 [facility] Last Admin: 07/02/19 05:29 Dose: 5,000 unit Documented by: Sodium Chloride () 1,000 mls @ 150 mls/hr IV .Q6H40M [facility] Last Admin: 07/02/19 08:40 Dose: 150 mls/hr Documented by: Ciprofloxacin (Cipro) 400 mg in 200 mls @ 200 mls/hr IV Q24 [facility] Stop: 07/02/19 12:00 Last Admin: 07/02/19 08:48 Dose: 200 mls/hr Documented by: Metronidazole (Flagyl) 500 mg in 100 mls @ 100 mls/hr IV Q8 [facility] Last Infusion: 07/02/19 06:29 Dose: Infused Documented by: Dextrose (Dextrose 10%-Water) 250 mls @ 999 mls/hr IV .Q16M PRN; Protocol PRN Reason: HYPOGLYCEMIA Sodium Chloride () 250 mls @ 15 mls/hr IV .[id number] PRN PRN Reason: Saline Flush Last Infusion: 07/02/19 06:34 Dose: 0 mls/hr Documented by: Sodium Chloride () 250 mls @ 15 mls/hr IV .[id number] PRN PRN Reason: Additional IVPB Infusion Ciprofloxacin (Cipro) 400 mg in 200 mls @ 200 mls/hr IV Q12 [facility] Lorazepam (Ativan) 2 mg PO Q2H PRN PRN; Protocol PRN Reason: CIWA score > 8 but <15 Last Admin: 07/02/19 10:11 Dose: 2 mg Documented by: Lorazepam (Ativan) 2 mg PO UD PRN; Protocol PRN Reason: CIWA score >/=15. Lorazepam (Ativan) 2 mg IV Q2H PRN PRN; Protocol PRN Reason: CIWA score > 8 but <15 Lorazepam (Ativan) 2 mg IV UD PRN; Protocol PRN Reason: CIWA score >/=15. Melatonin (Melatonin) 3 mg PO QHS PRN PRN PRN Reason: INSOMNIA Last Admin: 07/01/19 20:49 Dose: 3 mg Documented by: [facility] Admin: 07/02/19 08:42 Dose: 1 tablet Documented by: Nicotine (Nicoderm Cq (Pbkc)) 21 mg TRANSDERM. DAILY [facility] Last Admin: 07/02/19 08:43 Dose: 21 mg Documented by: Ondansetron HCl (Zofran) 4 mg IV Q6H PRN PRN PRN Reason: NAUSEA/VOMITING Last Admin: 07/01/19 06:56 Dose: 4 mg Documented by: Pantoprazole Sodium (Protonix) 20 mg PO BID [facility] Last Admin: 07/02/19 08:44 Dose: 20 mg Documented by: Prochlorperazine Edisylate (Compazine Iv) 5 mg IV Q4H PRN PRN PRN Reason: Breakthrough Nausea/Vomiting Sodium Chloride () 10 - 40 ml IV UD PRN PRN Reason: SALINE FLUSH Sodium Chloride () 10 - 40 ml IV UD PRN PRN Reason: Multilumen/Fuller Flush Last Admin: 07/02/19 04:11 Dose: 30 ml Documented by: Sodium Chloride (0.9% Nacl (Sterile) Posiflush) 10 - 40 ml IV UD PRN PRN Reason: Port access or dressing change Thiamine [facility]) [facility] Last Admin: 07/02/19 08:42 Dose: 100 mg Documented by: STROKE Vital Signs/Narrative: Vital Signs Pulse Resp BP Pulse Ox 07/02/19 07:00 124 H 16 141/76 H 98 07/02/19 06:42 118 H 15 99 Medical Necessity - Tobacco Use Smoking Status: Current every day smoker Tobacco Use: Cigarettes Assessment/Plan All Active Problems Septic shock (Acute) Gastroenteritis (Acute) Acute renal failure (Acute) Lactic acidosis (Acute) Gastroenteritis (Acute) Hyponatremia (Resolved) Elevated troponin (Resolved) COPD exacerbation (Resolved) Debility (Acute) Metabolic encephalopathy (Acute) Thrombocytopenia (Resolved) Pneumonia (Resolved) Neutropenia (Resolved) Hypokalemia (Resolved) Diarrhea (Resolved) GI bleed (Resolved) Hypomagnesemia (Resolved) Hepatitis C (Ruled-out) 1. Septic shock due to acute gastroenteritis * C Diff was negative. Diarrhea has resolved. * Stool for enteric pathogens was negative and ova and parasite screen is pending. * Continue gentle hydration with IV fluids and encourage oral hydration. * .2 FLEX * Creatinine was 4.44 on admission. Baseline is around 0.8. Creatinine is down to 1.77 today. * Nephrology is on board. Think is all prerenal due to diarrhea. * 3. Hypokalemia: * Potassium is 3.9 today. Will replace and monitor. * Magnesium is 2. * 4. Hypertension: BP meds on hold on account of hypotension on admission. 5. Anxiety and depression: * on Buspar and Celexa * 6. History of alcohol dependence * On thiamine, folic acid and Multivite. Inpatient E&M: 56644 [facility] Hosp L3
--- NOTE | 2019-07-02 10:54 | CASEMGMT ---
BIAN[facility] CM Readmission Note Previous admission: 05.25.2019-06.05.2019 Previous DX on dc: Hyponatremia DC Disposition: to Rehab Unit, then home on 06/17/2019 Current admission: 07.01.2019 Dx: severe sepsis due to gastroenteritis, FLEX Pt had been home from Rehab, receiving HHC. Now with 2 day hx of diarrhea, nausea, vomiting and shortness of breath. DC PLAN: home and resume HHC through [facility]. Tosha PEREIRA RN ACM
[2019-07-02] MEDS: Atorvastatin Calcium 80 MG Tablet PO (21:14)
[2019-07-02] MEDS: MELATONIN 3 MG TABLET PO (21:14)
[2019-07-03] VITALS (7 sets, daily range): BP systolic 140–143; BP diastolic 73–79; PULSE 105–136; RESP 16; TEMP 36.4–36.7; O2SAT 98–100
[2019-07-03] MEDS: 0.9% Normal Saline 1,000 ML 150 ML IV (02:57)
[2019-07-03] MEDS: Heparin Injection (Vial) 5,000 UNIT/ML VIAL 5000 UNIT SC (05:26)
[2019-07-03] MEDS: metroNIDAZOLE 500 MG/100 ML BAG 100 MG IV (05:30)
[2019-07-03 05:58] LABS: Absolute Lymphocyte Count 0.85 X10^3/uL (0.83-4.51); Absolute Neutrophil Count 1.5 X10^3/uL (2.0-7.7); Basophil# 0.01 X10^3/uL; Basophil% 0.4 % (0-1); Eosinophil# 0.06 X10^3/uL; Eosinophils% 2.2 % (0-5); Hematocrit 27.5 % (40-54); Hemoglobin 8.7 g/dL (13.0-16.5); Lymphocyte # 0.85 X10^3/ul (4.0); Mean Corp Hgb Conc 31.6 g/dL (32-36); Mean Corpuscular Hgb 29.2 pg (27.0-32.0); Mean Corpuscular Volume 92.3 fL (80-94); Mean Platelet Vol. 9.8 fl (6.2-12.0); Monocyte# 0.29 X10^3/uL; Monocyte% 10.6 % (0-10); NRBC Flagged by Analyzer 0 % (0-5); Neutrophil # 1.53 X10^3/uL (2.7-7.7); Neutrophil % 55.8 % (47-70); POSITIVE COUNT YES; Platelet Count 69 K/mm3 (150-450); RBC Distribution Width CV 18.9 % (11.6-14.6); RBC Distribution Width SD 63.8 fl (35.1-43.9); Red Blood Count 2.98 M/mm3 (4.6-6.2); White Blood Count 2.7 K/mm3 (4.4-11.0)
[2019-07-03 06:08] LABS: Differential Indicated SCAN CRITERIA MET
[2019-07-03 06:20] LABS: Anion Gap 7 (5-15); BUN 6 mg/dL (7-18); BUN/Creat Ratio 5.7 RATIO (10-20); Calcium,Total 7.9 mg/dL (8.5-10.1); Chloride 116 mmol/L (98-107); Creatinine, Serum 1.06 mg/dL (0.70-1.30); EST Glomerular Filtration Rate 76 mL/min (>60); Est Glom Filt Rate - Afr Amer 92 mL/min (>60); Estimated Creatinine Clearance 71.02 ml/min; Glucose 95 mg/dL (74-106); Potassium 3.2 mmol/L (3.5-5.1); Sodium Level 143 mmol/L (136-145)
[2019-07-03 06:29] LABS: Platelet Estimate MOD DEC (ADEQ)
[2019-07-03 06:30] LABS: Anisocytosis 1+; Hypochromasia RARE; Polychromasia RARE
[2019-07-03] MEDS: Budesonide Respules 0.5 MG/2 ML AMPUL.NEB. INHALATION (06:58)
--- NOTE | 2019-07-03 08:20 | PN_ITS ---
Patient Problems: Active and Suspected Problems Septic shock (Acute) Gastroenteritis (Acute) Acute renal failure (Acute) Lactic acidosis (Acute) Gastroenteritis (Acute) Subjective: Patient did well overnight. No acute issues were reported by the patient. Patient feels strong enough to go home. Patient has no respiratory complaints at this time. Blood pressures have remained stable to slightly elevated. Patient believes diarrhea is much improved. - Physical Exam Vitals/I&O's: Vital Signs Temp Pulse Resp BP Pulse Ox 36.7 C 118 H 16 143/79 H 98 07/03/19 03:00 07/03/19 06:58 07/03/19 06:58 07/03/19 03:00 07/03/19 06:58 Oxygen Delivery Method Room Air Weight: 71.4 kg Body Mass Index (BMI) 24.5 Finger Stick Blood Glucose 120 Intake and Output for Last 24 Hours 07/01/19 07/02/19 07/03/19 23:59 23:59 23:59 Intake Total 8201.5 / 8201.5 4385.0 / 4385.0 1032.5 / 1032.5 Output Total 975 / 975 1300 / 1300 Balance 7226.5 / 7226.5 3085.0 / 3085.0 1032.5 / 1032.5 General: Alert, Oriented x3, Cooperative, No apparent distress, Well developed, Well nourished, - - No conversational dyspnea. HEENT: Atraumatic, PERRLA, EOMI, Normocephalic, - - No scleral icterus or injection noted Oral: Moist Mucosa, No Gingival or Mucosal Lesions/ Ulcerations Neck: Supple, No JVD, No Nodes, Trachea Midline Lungs: Clear to auscultation, No rhonchi, No wheeze, No rales Cardiovascular: Regular rate, Regular Rhythm, Normal S1, Normal S2, No murmurs, No rub noted, No Gallop Abdomen: Bowel Sounds Present, Soft, Non Tender, Non-Distended Extremities: No clubbing, No cyanosis, No edema, Capillary Refill Less than 3 Seconds Skin: No rashes, No breakdown Musculoskeletal: No Tenderness to Palpation of Joints or Extremities Lymphatic: No Cervical, Supraclavicular, or Inguinal Adenopathy Neurological: Cranial nerves II-XII grossly intact, Neuro grossly intact, Motor Exam 5/5 strength throughout Psych/Mental Status: Alert and oriented to time, place, person, mood and affect Microbiology Past 72 Hours 06/30/19 23:43 Blood Culture (Wb) - Right Hand Blood Culture - Preliminary No growth in 48 hours. 06/30/19 22:30 Blood Culture (Wb) - Anticubital Right Blood Culture - Preliminary No growth in 48 hours. 07/01/19 03:15 Stool Enteric Bacteriology - Final 07/01/19 03:15 Stool C. difficile DNA Amplification - Final 06/30/19 23:05 Mucosa - Nasopharyngeal Influenza Types A,B Direct FA (OLAYINKA) - Final Laboratory Results 07/03/19 05:18: WBC 2.7 L, RBC 2.98 L, Hgb 8.7 L, Hct 27.5 L, MCV 92.3, MCH 29.2, MCHC 31.6 L, RDW Std Deviation 63.8 H, RDW Coeff of Donnie 18.9 H, Plt Count 69 L, MPV 9.8, Immature Gran % (Auto) 0.000, Neut % (Auto) 55.8, Lymph % (Auto) 31.0, [place] % (Auto) 10.6 H, Eos % (Auto) 2.2, Baso % (Auto) 0.4, Absolute Neuts (auto) 1.5 L, Absolute Lymphs (auto) 0.85, Nucleated RBC % 0, Platelet Estimate MOD DEC, Polychromasia RARE, Hypochromasia RARE, Anisocytosis 1+ 07/03/19 05:18: Sodium 143, Potassium 3.2 L, Chloride 116 H, Carbon Dioxide 20.0 L, Anion Gap 7, BUN 6 L, Creatinine 1.06, Estim Creat Clear Calc 71.02, Est GFR (MDRD) Af Amer 92, Est GFR (MDRD) Non-Af 76, BUN/Creatinine Ratio 5.7 L, Glucose 95, Calcium 7.9 L Current Medications Acetaminophen (Tylenol) 650 mg PO Q6H PRN PRN PRN Reason: Pain Score 1-10/Temp > 100.7 F Last Admin: 07/01/19 04:27 Dose: 650 mg Documented by: Albuterol Sulfate (Ventolin Aerosols) 2.5 mg INHALATION Q2H PRN PRN PRN Reason: sob/wheezing Last Admin: 07/02/19 19:13 Dose: 2.5 mg Documented by: Ascorbic Acid (Vitamin C) 500 mg PO BID@1200,1700 [facility] Last Admin: 07/02/19 17:55 Dose: 500 mg Documented by: Atorvastatin Calcium (Lipitor) 80 mg PO QHS [facility] Last Admin: 07/02/19 21:14 Dose: 80 mg Documented by: Budesonide (Pulmicort Aerosol) 0.5 mg INHALATION Q12H.RT [facility] Last Admin: 07/03/19 06:58 Dose: 0.5 mg Documented by: Bupropion HCl (Wellbutrin Xl) 150 mg PO DAILY [facility] Last Admin: 07/02/19 10:13 Dose: 150 mg Documented by: Buspirone HCl (Buspar) 5 mg PO BID [facility] Last Admin: 07/02/19 21:14 Dose: 5 mg Documented by: Buspirone HCl (Buspar) 15 mg PO BID [facility] Last Admin: 07/02/19 21:15 Dose: 15 mg Documented by: Cholecalciferol (Vitamin D (25mcg)) 2,000 unit PO DAILY [facility] Last Admin: 07/02/19 10:12 Dose: 2,000 unit Documented by: Citalopram Hydrobromide (Celexa) 20 mg PO DAILY [facility] Last Admin: 07/02/19 08:42 Dose: 20 mg Documented by: Clopidogrel Bisulfate (Plavix) 75 mg PO DAILY [facility] Last Admin: 07/02/19 08:44 Dose: 75 mg Documented by: Ferrous Sulfate (Ferrous Sulfate) 325 mg PO BID@1200,1700 [facility] Last Admin: 07/02/19 17:55 Dose: 325 mg Documented by: Folic Acid (Folic Acid) 1 mg PO DAILY@0800 [facility] Last Admin: 07/02/19 08:41 Dose: 1 mg Documented by: Glucagon () 1 mg IM .X1 PRN PRN Reason: Hypoglycemia Sodium Chloride () 1,000 mls @ 150 mls/hr IV .Q6H40M [facility] Last Infusion: 07/03/19 06:32 Dose: 150 mls/hr Documented by: Metronidazole (Flagyl) 500 mg in 100 mls @ 100 mls/hr IV Q8 [facility] Last Infusion: 07/03/19 06:31 Dose: Infused Documented by: Dextrose (Dextrose 10%-Water) 250 mls @ 999 mls/hr IV .Q16M PRN; Protocol PRN Reason: HYPOGLYCEMIA Sodium Chloride () 250 mls @ 15 mls/hr IV .[id number] PRN PRN Reason: Saline Flush Last Infusion: 07/02/19 06:34 Dose: 0 mls/hr Documented by: Sodium Chloride () 250 mls @ 15 mls/hr IV .[id number] PRN PRN Reason: Additional IVPB Infusion Ciprofloxacin (Cipro) 400 mg in 200 mls @ 200 mls/hr IV Q12 [facility] Last Infusion: 07/02/19 23:55 Dose: Infused Documented by: Lorazepam (Ativan) 2 mg PO Q2H PRN PRN; Protocol PRN Reason: CIWA score > 8 but <15 Last Admin: 07/02/19 21:44 Dose: 2 mg Documented by: Lorazepam (Ativan) 2 mg PO UD PRN; Protocol PRN Reason: CIWA score >/=15. Lorazepam (Ativan) 2 mg IV Q2H PRN PRN; Protocol PRN Reason: CIWA score > 8 but <15 Lorazepam (Ativan) 2 mg IV UD PRN; Protocol PRN Reason: CIWA score >/=15. Melatonin (Melatonin) 3 mg PO QHS PRN PRN PRN Reason: INSOMNIA Last Admin: 07/02/19 21:14 Dose: 3 mg Documented by: Multivitamins (Multivitamin) 1 tablet PO DAILYCM [facility] Last Admin: 07/02/19 08:42 Dose: 1 tablet Documented by: Nicotine (Nicoderm Cq (Pbkc)) 21 mg TRANSDERM. DAILY [facility] Last Admin: 07/02/19 08:43 Dose: 21 mg Documented by: Ondansetron HCl (Zofran) 4 mg IV Q6H PRN PRN PRN Reason: NAUSEA/VOMITING Last Admin: 07/01/19 06:56 Dose: 4 mg Documented by: Pantoprazole Sodium (Protonix) 20 mg PO BID [facility] Last Admin: 07/02/19 21:14 Dose: 20 mg Documented by: Potassium Chloride (K-Dur) 20 meq PO X1 ONE Stop: 07/03/19 17:01 Prochlorperazine Edisylate (Compazine Iv) 5 mg IV Q4H PRN PRN PRN Reason: Breakthrough Nausea/Vomiting Sodium Chloride () 10 - 40 ml IV UD PRN PRN Reason: SALINE FLUSH Sodium Chloride () 10 - 40 ml IV UD PRN PRN Reason: Multilumen/Fuller Flush Last Admin: 07/02/19 04:11 Dose: 30 ml Documented by: Sodium Chloride (0.9% Nacl (Sterile) Posiflush) 10 - 40 ml IV UD PRN PRN Reason: Port access or dressing change Thiamine HCl (Vitamin B1) 100 mg PO DAILYCM [facility] Last Admin: 07/02/19 08:42 Dose: 100 mg Documented by: Medical Necessity - Tobacco Use Smoking Status: Current every day smoker Tobacco Use: Cigarettes Assessment/Plan All Active Problems Septic shock (Acute) Gastroenteritis (Acute) Acute renal failure (Acute) Lactic acidosis (Acute) Gastroenteritis (Acute) Hyponatremia (Resolved) Elevated troponin (Resolved) COPD exacerbation (Resolved) Debility (Acute) Metabolic encephalopathy (Acute) Thrombocytopenia (Resolved) Pneumonia (Resolved) Neutropenia (Resolved) Hypokalemia (Resolved) Diarrhea (Resolved) GI bleed (Resolved) Hypomagnesemia (Resolved) Hepatitis C (Ruled-out) RECOMMENDATIONS: 1. Increase activity as tolerated 2. Continue CIWA protocol 3. Aggressive potassium repletion 4. Empiric bronchodilators, but no steroids indicated 5. Hemodynamically stable on room air. Will sign off from a critical care perspective IMPRESSIONS: 1. Septic shock secondary to possible acute gastroenteritis Patient with significant leukocytosis. Patient is a poor historian so it is unclear if this has been going on for weeks versus days. Patient did have significant renal dysfunction noted on presentation with hypotension, but this has resolved. Patient has received significant fluid boluses and blood pressures are back to baseline. 2. Acute kidney injury Resolved. Baseline creatinine appears to be normal at approximately 1. Findings consistent with prerenal etiology, likely secondary to volume loss with diarrhea. Likely okay to reinitiate lisinopril if okay with nephrology. Bladder and kidneys normal on ultrasound. Nephrology has been consulted. We will continue with aggressive blood pressure management. 3. Hypokalemia Clinical suspicion for GI losses. Aggressive supplementation has been ordered. 4. History of alcoholism and tobacco abuse Patient reportedly had his last drink approximately 4 days ago. Patient states he drinks between 6 and 12 beers per day. Patient showed some signs of possible withdrawal earlier in the hospitalization, so CIWA protocol was initiated. Continue to monitor clinically. Would not treat with phenobarbital at this time. 5. Suspected COPD/poor historian/esophageal varices/depression/hypertension/hyperlipidemia Complicates care, management, recovery and prognosis. Okay to continue with baseline medications from a respiratory standpoint. Likely okay to reinitiate home medications in a stepwise fashion. Inpatient E&M: 69272 Subs Hosp L2
[2019-07-03] MEDS: Folic Acid 1 MG Tablet PO (08:33)
[2019-07-03] MEDS: Multivitamins,Therapeutic Tablet 1 TABLET PO (08:33)
[2019-07-03] MEDS: Thiamine Hydrochloride 100 MG Tablet PO (08:33)
[2019-07-03] MEDS: Clopidogrel Bisulfate 75 MG Tablet PO (09:33)
[2019-07-03] MEDS: Citalopram 20 MG Tablet PO (09:33)
[2019-07-03] MEDS: Pantoprazole Sodium 20 MG Tablet PO (09:33)
[2019-07-03] MEDS: busPIRone 5 MG Tablet PO (09:33)
[2019-07-03] MEDS: busPIRone 15 MG TABLET PO (09:33)
[2019-07-03] MEDS: buPROPion (XL) 150 MG TABLET.XL PO (09:33)
[2019-07-03] MEDS: Ciprofloxacin 400 MG/200 ML BAG 200 MG IV (09:39)
--- NOTE | 2019-07-03 11:41 | PCM.DC ---
- Discharge Diagnoses Current Active Problems: Current Active and Chronic Problems Septic shock (Acute) Gastroenteritis (Acute) Acute renal failure (Acute) Lactic acidosis (Acute) Gastroenteritis (Acute) You will use the following diet at home:: Cardiac Your food should be the consistency of: Regular Your liquids should be the consistency of: Regular/Thin Discharge Activity: Return to Normal Activity Weight Bearing Status: Weight bearing as tolerated Call your doctor if you observe: Fever of 101 or Higher, Shortness of breath, Dizziness, Fainting spells, Swelling in the ankles, Chest pain Instructions: Bacterial Gastroenteritis, How Your Kidneys Work, Healthy Kidneys Allergies/Adverse Reactions: Allergies No Known Allergies Allergy (Verified 05/08/19 14:54) Medications to take at Discharge Clopidogrel Bisulfate [Plavix] 75 mg PO DAILY 09/10/16 Folic Acid 1 mg PO DAILY@0800 09/10/16 Budesonide/Formoterol Fumarate [Symbicort 160-4.5 Mcg Inhaler] 2 puff IH BID 04/25/19 Cholecalciferol (VIT D3) [Vitamin D3] 2,000 unit PO DAILY 04/25/19 Metoprolol Tartrate [Lopressor (beta ran)] 100 mg PO BID 05/25/19 Acetaminophen [Tylenol Tablet] 650 mg PO Q6H PRN PRN tab 06/05/19 Amlodipine [Norvasc] 5 mg PO DAILY 06/05/19 Atorvastatin Calcium [Lipitor] 80 mg PO QHS 06/05/19 Lisinopril [Zestril] 20 mg PO DAILY 06/05/19 Multivitamins,Therapeutic [Multivitamin] 1 tab PO DAILY 06/05/19 Albuterol Inhaler [Ventolin Hfa] 2 puff INHALATION Q4H PRN PRN #1 inhaler 06/16/19 Ascorbic Acid [Vitamin C] 500 mg PO BIDCM #60 tab 06/16/19 Citalopram [Celexa] 20 mg PO DAILY #30 tab 06/16/19 Ferrous Sulfate 325 mg PO BIDCM #60 tab 06/16/19 Magnesium Oxide [Mag-Ox 400] 400 mg PO BIDCM #60 tab 06/16/19 Nicotine [Nicoderm Cq] 21 mg TRANSDERM. DAILY #28 patch 06/16/19 Pantoprazole Sodium [Protonix] 20 mg PO BID tab 06/16/19 Thiamine Hydrochloride [Vitamin B1] 100 mg PO DAILYCM #30 tab 06/16/19 buPROPion XL [Wellbutrin Xl] 150 mg PO DAILY #30 tablet.xl 06/16/19 busPIRone [Buspar] 5 mg PO BID #60 tab 06/16/19 busPIRone [Buspar] 15 mg PO BID #60 tab 06/16/19 traMADol [Ultram] 50 mg PO BID #60 tab 06/16/19 Primary Care Physician: [facility] [Primary Care Provider] - Please follow up with your Primary Care Physician in: one week Test Results: Test results from this visit will be discussed in further detail at your follow-up appointment, if applicable. Please Follow Up With: Ravi Colindres MD When: 1-2 weeks o/a of history of positive occult blood in stool Proposed Discharge Date: 07/03/19
--- NOTE | 2019-07-03 11:48 | DS.PCM_ITS ---
Discharge Date and Diagnosis - Problem List Patient Problems: Active and Suspected Problems Septic shock (Acute) Gastroenteritis (Acute) Acute renal failure (Acute) Lactic acidosis (Acute) Gastroenteritis (Acute) Date of Admission: 06/30/19 Date of Discharge: 07/03/19 - Primary Discharge Diagnosis Active and Suspected Problems Septic shock (Acute) Gastroenteritis (Acute) Acute renal failure (Acute) Lactic acidosis (Acute) Gastroenteritis (Acute) - Secondary Discharge Diagnosis Chronic Problems Iron deficiency (Chronic) Grade III diastolic dysfunction (Chronic) Pulmonary hypertension (Chronic) Moderate with a RV systolic estimated at 60 Mitral regurgitation (Chronic) Hiatal hernia (Chronic) small Esophageal varices determined by endoscopy (Chronic) stage II varices on EGD 04/28/[address] Abdullahi. Esophageal varices due to chronic alcohol dependence and chronic liver disease. Anxiety (Chronic) Anemia (Chronic) Pancreatitis (Chronic) Stroke (Chronic) Alcohol abuse (Chronic) Depression (Chronic) COPD (chronic obstructive pulmonary disease) (Chronic) Hyperlipemia (Chronic) GERD (gastroesophageal reflux disease) (Chronic) HTN (hypertension) (Chronic) Colonic polyp (Chronic) Colon, diverticulosis (Chronic) Nicotine addiction (Chronic) RENETTA (obstructive sleep apnea) (Chronic) non-compliant with PAP Carotid stenosis (Chronic) has had a R CEA Hospital Course and Treatment Operations: None Summary of Care Provided: The patient is a 58 year old M with an extensive past medical history as outl ined was admitted through the ED on 06/30/2019 with a complaint of diarrhea. He had assisted nausea and vomiting and some mild shortness of breath. On admission in the ED, he was noted to be hypotensive with blood pressure being 53/36. White cell count was elevated at 14.5 and he was tachycardic and tachypneic. Lactic acid was also 5.8 and creatinine was 4.44. He was admitted and managed for septic shock due to acute gastroenteritis, FLEX and hyperkalemia as well as lactic acidosis. He was hydrated with IV fluids. Chest x-ray done showed no evidence of acute cardiopulmonary disease. He was started on IV Cipro and IV Flagyl as well as p.o. vancomycin for empiric treatment for C. difficile. C. difficile screen was negative. Stool for enteric pathogens was also negative. He was hydrated aggressively with IV fluids. Nephrology was consulted. Diarrhea gradually resolved and blood pressure also normalized with IV fluid administration. Patient was subsequently transferred out of the ICU. Hospital stay was complicated by hypokalemia, which was corrected per protocol. Patient was eventually transferred out of the ICu to the progressive care unit. Lactic acidosis resolved. Patient's hemoglobin was initially 12.3 but trended down to 8.7. It does appear that the initial elevation in hemoglobin was due to hemoconcentration as patient's baseline is around 8. Hemoglobin was 8.7 at time of discharge and white cell count is also come down to 2.7 from 11.8 on admission. Again patient has chronic pancytopenia and platelets were down to 69 at time of discharge, with his baseline platelets being in the 70s and 80s. Patient remained stable and was discharged home on 07/03/2019. He is to follow- up with his primary care doctor. Of note, patient had a positive occult blood test in previous admission. He says he has followed up at the [facility] for this. He was referred to Dr. Colindres with general surgery for further evaluation. patient seen and examined prior to discharge. He had no complaints and said he was ready to go home. Review of signs otherwise negative. Labs and vitals reviewed. Home medication reviewed and reconciled. o/e: Vital Signs Height 5 ft 7 in Weight: 157 lb 6.561 oz Weight in Pounds 157.4 lbs Pulse Ox 100 Temperature 97.6 F Pulse Rate 106 Respiratory Rate 16 Blood Pressure [BP] 144/81 Blood Pressure 140/73 Blood Pressure Position [BP] Semi-Fowlers Blood Pressure Position Semi-Fowlers [] General: Alert, Oriented x3, Cooperative, No apparent distress HEENT: Atraumatic, PERRLA, EOMI, Normocephalic Oral: Dry Mucosa Neck: Supple, No JVD, Negative Carotid Bruits Lungs: Clear to auscultation, Normal air movement, No rhonchi, No wheeze, No rales Cardiovascular: Regular rate, Regular Rhythm, Normal S1, Normal S2, No murmurs Abdomen: Bowel Sounds Present, Soft, Non Tender, Non-Distended, No Hepato- splenomegaly Extremities: No clubbing, No cyanosis, No edema, Capillary Refill Less than 3 Seconds Skin: No rashes, No breakdown Musculoskeletal: No Tenderness to Palpation of Joints or Extremities Lymphatic: No Cervical, Supraclavicular, or Inguinal Adenopathy Neurological: Cranial nerves II-XII grossly intact, Neuro grossly intact, Motor Exam 5/5 strength throughout Psych/Mental Status: Normal Affect, Appropriate, Alert and oriented to time, place, person, mood and affect Plan is for DC home today with home health care. He was given a prescription for p.o. potassium 20 mEq daily for 10 days for supplementation on account of low potassium during admission. Patient Problems: Active and Suspected Problems Septic shock (Acute) Gastroenteritis (Acute) Acute renal failure (Acute) Lactic acidosis (Acute) Gastroenteritis (Acute) - Physical Exam Vitals/I&O's: Vital Signs Temp Pulse Resp BP Pulse Ox 97.6 F L 106 H 16 140/73 H 100 07/03/19 09:00 07/03/19 09:00 07/03/19 09:00 07/03/19 09:00 07/03/19 09:00 Oxygen Delivery Method Room Air Weight: 157 lb 6.561 oz Body Mass Index (BMI) 24.5 Finger Stick Blood Glucose 120 Intake and Output for Last 24 Hours 07/01/19 07/02/19 07/03/19 23:59 23:59 23:59 Intake Total 8201.5 / 8201.5 4385.0 / 4385.0 1232.5 / 1232.5 Output Total 975 / 975 1300 / 1300 Balance 7226.5 / 7226.5 3085.0 / 3085.0 1232.5 / 1232.5 Microbiology Past 72 Hours 06/30/19 23:43 Blood Culture (Wb) - Right Hand Blood Culture - Preliminary No growth in 48 hours. 06/30/19 22:30 Blood Culture (Wb) - Anticubital Right Blood Culture - Preliminary No growth in 48 hours. 07/01/19 03:15 Stool Enteric Bacteriology - Final 07/01/19 03:15 Stool C. difficile DNA Amplification - Final 06/30/19 23:05 Mucosa - Nasopharyngeal Influenza Types A,B Direct FA (OLAYINKA) - Final Laboratory Results 07/03/19 05:18: WBC 2.7 L, RBC 2.98 L, Hgb 8.7 L, Hct 27.5 L, MCV 92.3, MCH 29.2, MCHC 31.6 L, RDW Std Deviation 63.8 H, RDW Coeff of Donnie 18.9 H, Plt Count 69 L, MPV 9.8, Immature Gran % (Auto) 0.000, Neut % (Auto) 55.8, Lymph % (Auto) 31.0, Dickson % (Auto) 10.6 H, Eos % (Auto) 2.2, Baso % (Auto) 0.4, Absolute Neuts (auto) 1.5 L, Absolute Lymphs (auto) 0.85, Nucleated RBC % 0, Platelet Estimate MOD DEC, Polychromasia RARE, Hypochromasia RARE, Anisocytosis 1+ 07/03/19 05:18: Sodium 143, Potassium 3.2 L, Chloride 116 H, Carbon Dioxide 20.0 L, Anion Gap 7, BUN 6 L, Creatinine 1.06, Estim Creat Clear Calc 71.02, Est GFR (MDRD) Af Amer 92, Est GFR (MDRD) Non-Af 76, BUN/Creatinine Ratio 5.7 L, Glucose 95, Calcium 7.9 L Current Medications Acetaminophen (Tylenol) 650 mg PO Q6H PRN PRN PRN Reason: Pain Score 1-10/Temp > 100.7 F Last Admin: 07/01/19 04:27 Dose: 650 mg Documented by: Albuterol Sulfate (Ventolin Aerosols) 2.5 mg INHALATION Q2H PRN PRN PRN Reason: sob/wheezing Last Admin: 07/02/19 19:13 Dose: 2.5 mg Documented by: Ascorbic Acid (Vitamin C) 500 mg PO BID@1200,1700 [facility] Last Admin: 07/02/19 17:55 Dose: 500 mg Documented by: Atorvastatin Calcium (Lipitor) 80 mg PO QHS [facility] Last Admin: 07/02/19 21:14 Dose: 80 mg Documented by: Budesonide (Pulmicort Aerosol) 0.5 mg INHALATION Q12H.RT [facility] Last Admin: 07/03/19 06:58 Dose: 0.5 mg Documented by: Bupropion HCl (Wellbutrin Xl) 150 mg PO DAILY [facility] Last Admin: 07/03/19 09:33 Dose: 150 mg Documented by: Buspirone HCl (Buspar) 5 mg PO BID [facility] Last Admin: 07/03/19 09:33 Dose: 5 mg Documented by: Buspirone HCl (Buspar) 15 mg PO BID [facility] Last Admin: 07/03/19 09:33 Dose: 15 mg Documented by: Cholecalciferol (Vitamin D (25mcg)) 2,000 unit PO DAILY [facility] Last Admin: 07/03/19 09:33 Dose: 2,000 unit Documented by: Citalopram Hydrobromide (Celexa) 20 mg PO DAILY [facility] Last Admin: 07/03/19 09:33 Dose: 20 mg Documented by: Clopidogrel Bisulfate (Plavix) 75 mg PO DAILY [facility] Last Admin: 07/03/19 09:33 Dose: 75 mg Documented by: Ferrous Sulfate (Ferrous Sulfate) 325 mg PO BID@1200,1700 [facility] Last Admin: 07/02/19 17:55 Dose: 325 mg Documented by: Folic Acid (Folic Acid) 1 mg PO DAILY@0800 [facility] Last Admin: 07/03/19 08:33 Dose: 1 mg Documented by: Glucagon () 1 mg IM .X1 PRN PRN Reason: Hypoglycemia Sodium Chloride () 1,000 mls @ 150 mls/hr IV .Q6H40M [facility] Last Infusion: 07/03/19 06:32 Dose: 150 mls/hr Documented by: Metronidazole (Flagyl) 500 mg in 100 mls @ 100 mls/hr IV Q8 [facility] Last Infusion: 07/03/19 06:31 Dose: Infused Documented by: Dextrose (Dextrose 10%-Water) 250 mls @ 999 mls/hr IV .Q16M PRN; Protocol PRN Reason: HYPOGLYCEMIA Sodium Chloride () 250 mls @ 15 mls/hr IV .[id number] PRN PRN Reason: Saline Flush Last Infusion: 07/02/19 06:34 Dose: 0 mls/hr Documented by: Sodium Chloride () 250 mls @ 15 mls/hr IV .[id number] PRN PRN Reason: Additional IVPB Infusion Ciprofloxacin (Cipro) 400 mg in 200 mls @ 200 mls/hr IV Q12 [facility] Last Infusion: 07/03/19 10:50 Dose: Infused Documented by: Lorazepam (Ativan) 2 mg PO Q2H PRN PRN; Protocol PRN Reason: CIWA score > 8 but <15 Last Admin: 07/02/19 21:44 Dose: 2 mg Documented by: Lorazepam (Ativan) 2 mg PO UD PRN; Protocol PRN Reason: CIWA score >/=15. Lorazepam (Ativan) 2 mg IV Q2H PRN PRN; Protocol PRN Reason: CIWA score > 8 but <15 Lorazepam (Ativan) 2 mg IV UD PRN; Protocol PRN Reason: CIWA score >/=15. Melatonin (Melatonin) 3 mg PO QHS PRN PRN PRN Reason: INSOMNIA Last Admin: 07/02/19 21:14 Dose: 3 mg Documented by: Multivitamins (Multivitamin) [facility] Last Admin: 07/03/19 08:33 Dose: 1 tablet Documented by: Nicotine (Nicoderm Cq (Pbkc)) 21 mg TRANSDERM. DAILY [facility] Last Admin: 07/03/19 09:33 Dose: 21 mg Documented by: Ondansetron HCl (Zofran) 4 mg IV Q6H PRN PRN PRN Reason: NAUSEA/VOMITING Last Admin: 07/01/19 06:56 Dose: 4 mg Documented by: Pantoprazole Sodium (Protonix) 20 mg PO BID [facility] Last Admin: 07/03/19 09:33 Dose: 20 mg Documented by: Potassium Chloride (K-Dur) 20 meq PO X1 ONE Stop: 07/03/19 17:01 Prochlorperazine Edisylate (Compazine Iv) 5 mg IV Q4H PRN PRN PRN Reason: Breakthrough Nausea/Vomiting Sodium Chloride () 10 - 40 ml IV UD PRN PRN Reason: SALINE FLUSH Sodium Chloride () 10 - 40 ml IV UD PRN PRN Reason: Multilumen/Fuller Flush Last Admin: 07/02/19 04:11 Dose: 30 ml Documented by: Sodium Chloride (0.9% Nacl (Sterile) Posiflush) 10 - 40 ml IV UD PRN PRN Reason: Port access or dressing change Thiamine HCl (Vitamin B1) [facility] Last Admin: 07/03/19 08:33 Dose: 100 mg Documented by: Discharge Activity: Return to Normal Activity Weight Bearing Status: Weight bearing as tolerated Call your doctor if you observe: Fever of 101 or Higher, Shortness of breath, Dizziness, Fainting spells, Swelling in the ankles, Chest pain Home Medications: Medications to take at Discharge Clopidogrel Bisulfate [Plavix] 75 mg PO DAILY 09/10/16 Folic Acid 1 mg PO DAILY@0800 09/10/16 Budesonide/Formoterol Fumarate [Symbicort 160-4.5 Mcg Inhaler] 2 puff IH BID 04/25/19 Cholecalciferol (VIT D3) [Vitamin D3] 2,000 unit PO DAILY 04/25/19 Metoprolol Tartrate [Lopressor (beta ran)] 100 mg PO BID 05/25/19 Acetaminophen [Tylenol Tablet] 650 mg PO Q6H PRN PRN tab 06/05/19 Amlodipine [Norvasc] 5 mg PO DAILY 06/05/19 Atorvastatin Calcium [Lipitor] 80 mg PO QHS 06/05/19 Lisinopril [Zestril] 20 mg PO DAILY 06/05/19 Multivitamins,Therapeutic [Multivitamin] 1 tab PO DAILY 06/05/19 Albuterol Inhaler [Ventolin Hfa] 2 puff INHALATION Q4H PRN PRN #1 inhaler 06/16/19 Ascorbic Acid [Vitamin C] 500 mg PO BIDCM #60 tab 06/16/19 Citalopram [Celexa] 20 mg PO DAILY #30 tab 06/16/19 Ferrous Sulfate 325 mg PO BIDCM #60 tab 06/16/19 Magnesium Oxide [Mag-Ox 400] 400 mg PO BIDCM #60 tab 06/16/19 Nicotine [Nicoderm Cq] 21 mg TRANSDERM. DAILY #28 patch 06/16/19 Pantoprazole Sodium [Protonix] 20 mg PO BID tab 06/16/19 Thiamine Hydrochloride [Vitamin B1] 100 mg PO DAILYCM #30 tab 06/16/19 buPROPion XL [Wellbutrin Xl] 150 mg PO DAILY #30 tablet.xl 06/16/19 busPIRone [Buspar] 5 mg PO BID #60 tab 06/16/19 busPIRone [Buspar] 15 mg PO BID #60 tab 06/16/19 traMADol [Ultram] 50 mg PO BID #60 tab 06/16/19 Potassium Chloride [K-Dur] 20 meq PO DAILY #10 tablet 07/03/19 Following Prescrptions Were Given to Patient: Potassium Chloride [K-Dur] 20 meq PO DAILY #10 tablet Primary Care Physician: [facility] [Primary Care Provider] - Please follow up with your Primary Care Physician in: one week Please Follow Up With: Ravi Colindres MD When: 1-2 weeks o/a of history of positive occult blood in stool Patient Instructions: Healthy Kidneys, How Your Kidneys Work, Bacterial Gastroenteritis Disposition: Home with Home Health Minutes spent on discharge:: 40 Patient Condition:: Stable Medical Necessity - Tobacco Use Smoking Status: Current every day smoker Tobacco Use: Cigarettes Meaningful Use Info Meaningful Use Diagnoses (Choose all that apply): None applicable Inpatient E&M: 97529 Disch Hosp
[2019-07-03] MEDS: LORazepam 1 MG Tablet 2 MG PO (12:15)
[2019-07-03] MEDS: Ferrous Sulfate 325 MG Tablet PO (12:15)
[2019-07-03] MEDS: Ascorbic Acid 500 MG Tablet PO (12:15)
--- NOTE | 2019-07-03 12:54 | NURSING ---
Right IJ dc'd tip intact. Pressure applied for 5 min. vaseline guaze applied with 2x2 over top and secured with tegaderm. Instructed to lay flat for 30 minutes.
--- NOTE | 2019-07-03 14:52 | CM.UR ---
Charge nurse, BIANCA Cortes, contacted me to ask me to fax the order to the [facility]. I explained there is a green sheet on the chart and the order just needs printed from the chart and faxed. She didn't appear to understand what I was directing her to do and she said the person on the phone was insistent they had to have the order. Explained I would take care of It. Faxed the resumption of C order and the Palliative care order to [facility], along with H&P, dc summary and Covid-19 communication form, at this time. Brent Fabian RN, CCM.
--- NOTE | 2019-07-06 14:35 | CASEMGMT ---
RN CM Discharge F/U Phone Call LACE: 14 Strata: 4 Discharge date: 07/03/2019 Call date: 07/06/2019 Call time: 1436 Attempted to reach pt without success at this time, message left for pt to call this RN CM back if/when able. SStaten RN CM Admission dx: Septic shock
--- NOTE | 2019-07-10 15:19 | CM.UR ---
RN Discharge F/U Phone Call LACPepe: 14 Strata: 4 Discharge date: 07/03/2019 Call date: 07/10/2019 Call time: 15:19 Admission dx: Septic shock States feeling good today. States no pain other chronic pain. No reoccurring symptoms. Home care is coming 1x per week. Only concern he has is the Wellbutrin--he did not get. Home care nurse called [facility] retail pharmacy but they didn't come to a conclusion. [facility]. Denies any questions about discharge instructions. Denies any questions about medications or side effects. States he was very pleased with his experience here at [facility] and has no recommendations. Expressed appreciation of call. Brent Fabian RN, CCM
== END 2019-07-03 15:39 | disposition home or self-care (01) | DRG 871 ==
LOC: ED 23:59 → ICU 07-01 00:40 → PCU 07-02 14:38
PROVIDERS: Internal Medicine Critical Care Medicine; Admitting Provider Hospitalist; Emergency Provider Emergency Medicine; Visit Provider Student in an Organized Health Care Education/Training Program
DX: A41.9 Sepsis, unspecified organism (principal); R65.21 Severe sepsis with septic shock; N17.9 Acute kidney failure, unspecified; I85.00 Esophageal varices without bleeding; E87.2 Acidosis; E87.6 Hypokalemia; F17.210 Nicotine dependence, cigarettes, uncomplicated; E83.42 Hypomagnesemia; K52.9 Noninfective gastroenteritis and colitis, unspecified; E86.0 Dehydration; I27.20 Pulmonary hypertension, unspecified; K44.9 Diaphragmatic hernia without obstruction or gangrene; K21.9 Gastro-esophageal reflux disease without esophagitis; I10 Essential (primary) hypertension; K76.9 Liver disease, unspecified; F10.20 Alcohol dependence, uncomplicated; E78.5 Hyperlipidemia, unspecified; J44.9 Chronic obstructive pulmonary disease, unspecified
CPT/HCPCS: 36415; 71045; 76770; 80048; 80053; 80076; 82570; 83605; 83690; 83735; 83935; 84100; 84300; 85025; 85610; 85730; 87040; 87177; 87209; 87493; 87506; 87804; 93005; 94640; 97110; 97116; 97162; 97166; 97530; 97535; 99285; J7030; J7040; J7050; J7120; A4216; C1751; J0744; J2405

== ENCOUNTER 2019-08-30 10:52 | Inpatient (IN) | payer MEDICARE, MEDICAID, OTHER, SELFPAY ==
[2019-07-01 02:00] VITALS: BMI 24.5
[2019-08-30] VITALS (28 sets, daily range): BP systolic 106–213; BP diastolic 50–101; PULSE 64–95; RESP 12–24; TEMP 36.3–37; O2SAT 91–100; BMI 27.7; BMI 27.6
--- NOTE | 2019-08-30 11:21 | ED.DCSUM_ITS ---
History of Present Illness Chief Complaint: Allergic Reaction Informant: Patient, [employer] Onset: Today Narrative: Patient states that 1 hour prior to arrival he developed tongue swelling that is progressively gotten worsened. He notes difficulty swallowing and his voice is muffled. He is not complaining of shortness of breath. He is on lisinopril. His last dose was yesterday. Past Medical History - Allergies and Home Meds Allergies/Adverse Reactions: Allergies No Known Allergies Allergy (Verified 05/08/19 14:54) Primary Care Physician: [facility],[place] [Primary Care Provider] - Surgical History: - - surgery on left foot due to accident, carotid endarterectemy on the right side. Smoking Status: Current every day smoker - Family History Maternal Family History: Reports: Hypertension, No pertinent history - denies cancer, cad, DM, stroke, - - Mother had a history of alcoholism but quit drinking at the age of 55 Paternal Family History: Reports: - - alcoholism, of suicide Review of Systems General: Denies: Chills, Fever, Sweats Eyes: Denies: Visual changes - bilaterally, Diplopia ENT: Denies: Rhinorrhea, Sore throat Cardiovascular: Denies: Chest pain, Palpitations Respiratory: Denies: Dyspnea, Cough, Dyspnea on exertion Gastrointestinal: Denies: Abdominal pain, Nausea, Vomiting, Diarrhea, Melena, Hematochezia Genitourinary: Denies: Dysuria, Hematuria, Frequency Musculoskeletal: Denies: Back pain, Extremity Pain Skin: Denies: Rash, Wounds Neurological: Denies: Headache, Weakness, Numbness Physical Exam Vital Signs/Narrative: Vital Signs Temp Pulse Resp BP Pulse Ox 08/30/19 11:16 97.8 F 88 21 H 96 08/30/19 11:14 92 18 203/91 H 96 08/30/19 10:54 98.0 F 95 20 H 213/101 H 98 Inital Vital Signs reviewed: Yes General: Well nourished, Well developed, No Acute Distress Head: Normocephalic, Atraumatic Eyes: Perrl, EOMI ENT: Moist mucous membranes, No rhinorrhea, - - The tongue is grossly edematous precluding any visualization of the pharynx. His voice is muffled. Neck: Supple, Nontender Cardiovascular: Regular rate, Regular rhythm, No murmurs Respiratory: No distress, CTA bilaterally, Chest nontender Abdomen: Soft, Nontender, Nondistended, Normal bowel sounds Back: Nontender, Normal Inspection Extremities: Nontender, No edema Skin: Normal color, No rash Neurological: Alert, Oriented x3, Cranial nerves II-XII grossly intact, Normal Strength, Normal Sensation Psychological: Normal affect, Normal Mood Diagnostic/Tx/Re-eval - Medical Decision Making Patient had received Benadryl by EMS. Upon evaluation of the patient's airway felt it best to contact ICU and: Airway team. Plan is to take the patient to the operating room for definitive airway control. - Critical Care Time Critical care time (excluding procedures): 30-74 minutes - 30 minutes, Discussing w/Patient &/or Family/Training Officer, Discussing w/Consultants, Arranging Admission or Transfer, Performing Direct Patient Care at Bedside ED Disposition - Plan for ED Patient: Disposition: Acute Care Hospital [facility] Diagnosis: Angioedema [facility] [[facility] -
[2019-08-30 11:27] LABS: Absolute Lymphocyte Count 0.91 X10^3/uL (0.83-4.51); Absolute Neutrophil Count 4.4 X10^3/uL (2.0-7.7); Basophil# 0.04 X10^3/uL; Basophil% 0.7 % (0-1); Eosinophil# 0.11 X10^3/uL; Eosinophils% 1.8 % (0-5); Hematocrit 32.2 % (40-54); Hemoglobin 10.3 g/dL (13.0-16.5); Lymphocyte # 0.91 X10^3/ul (4.0); Mean Corpuscular Hgb 27.8 pg (27.0-32.0); Mean Corpuscular Volume 86.8 fL (80-94); Mean Platelet Vol. 9.6 fl (6.2-12.0); Monocyte# 0.57 X10^3/uL; Monocyte% 9.4 % (0-10); NRBC Flagged by Analyzer 0 % (0-5); Neutrophil # 4.42 X10^3/uL (2.7-7.7); Neutrophil % 72.8 % (47-70); Platelet Count 140 K/mm3 (150-450); RBC Distribution Width SD 44.3 fl (35.1-43.9); Red Blood Count 3.71 M/mm3 (4.6-6.2); White Blood Count 6.1 K/mm3 (4.4-11.0)
--- NOTE | 2019-08-30 11:33 | HP.PCM_ITS ---
Problem List (1) Angioedema Status: Acute (2) Anemia Status: Chronic (3) Anxiety Status: Chronic (4) COPD (chronic obstructive pulmonary disease) Status: Chronic (5) Carotid stenosis Status: Chronic Qualifiers: Qualified Code(s): I65.23 - Occlusion and stenosis of bilateral carotid arteries Comment: has had a R CEA (6) Colon, diverticulosis Status: Chronic (7) Colonic polyp Status: Chronic (8) Depression Status: Chronic (9) Esophageal varices determined by endoscopy Status: Chronic Comment: stage II varices on EGD 04/28/[address] Abdullahi. Esophageal varices due to chronic alcohol dependence and chronic liver disease. (10) GERD (gastroesophageal reflux disease) Status: Chronic (11) Grade III diastolic dysfunction Status: Chronic (12) HTN (hypertension) Status: Chronic (13) Hiatal hernia Status: Chronic Comment: small (14) Hyperlipemia Status: Chronic (15) Iron deficiency Status: Chronic (16) Mitral regurgitation Status: Chronic Qualifiers: Qualified Code(s): I34.0 - Nonrheumatic mitral (valve) insufficiency (17) Nicotine addiction Status: Chronic (18) RENETTA (obstructive sleep apnea) Status: Chronic Comment: non-compliant with PAP (19) Pancreatitis Status: Chronic (20) Pulmonary hypertension Status: Chronic Comment: Moderate with a RV systolic estimated at 60 (21) Stroke Status: Chronic History of Present Illness Date of Admission: 08/30/19 Chief Complaint: Tongue swelling The patient is a 58 year old M with her history sent in for essential hypertension who was brought to the emergency department by the squad. Patient apparently woke up in the morning when he noticed significant tongue swelling with difficulty swallowing and hoarse voice. He did call the squad patient was given Benadryl in route to the hospital. In the emergency department patient was found to have with airway obstruction. Stat airway team was called patient was taken to the emergency department for emergency intubation in the OR Past Medical History Past Medical History (Chronic Problems): Chronic Problems Iron deficiency (Chronic) Grade III diastolic dysfunction (Chronic) Pulmonary hypertension (Chronic) Moderate with a RV systolic estimated at 60 Mitral regurgitation (Chronic) Hiatal hernia (Chronic) small Esophageal varices determined by endoscopy (Chronic) stage II varices on EGD 04/28/[address] Abdullahi. Esophageal varices due to chronic alcohol dependence and chronic liver disease. Anxiety (Chronic) Anemia (Chronic) Pancreatitis (Chronic) Stroke (Chronic) Alcohol abuse (Chronic) Depression (Chronic) COPD (chronic obstructive pulmonary disease) (Chronic) Hyperlipemia (Chronic) GERD (gastroesophageal reflux disease) (Chronic) HTN (hypertension) (Chronic) Colonic polyp (Chronic) Colon, diverticulosis (Chronic) Nicotine addiction (Chronic) RENETTA (obstructive sleep apnea) (Chronic) non-compliant with PAP Carotid stenosis (Chronic) has had a R CEA Allergies No Known Allergies Allergy (Verified 05/08/19 14:54) Home Medications: Ambulatory Orders Medication Instructions Recorded Clopidogrel Bisulfate [Plavix] 75 mg PO DAILY 09/10/16 Folic Acid 1 mg PO DAILY@0800 09/10/16 Budesonide/Formoterol Fumarate 2 puff IH BID 04/25/19 [Symbicort 160-4.5 Mcg Inhaler] Cholecalciferol (VIT D3) [Vitamin 2,000 unit PO DAILY 04/25/19 D3] Metoprolol Tartrate [Lopressor 100 mg PO BID 05/25/19 (beta ran)] Acetaminophen [Tylenol Tablet] 650 mg PO Q6H PRN PRN tab 06/05/19 Amlodipine [Norvasc] 5 mg PO DAILY 06/05/19 Atorvastatin Calcium [Lipitor] 80 mg PO QHS 06/05/19 Lisinopril [Zestril] 20 mg PO DAILY 06/05/19 Multivitamins,Therapeutic 1 tab PO DAILY 06/05/19 [Multivitamin] Albuterol Inhaler [Ventolin Hfa] 2 puff INHALATION Q4H PRN PRN #1 06/16/19 inhaler Ascorbic Acid [Vitamin C] 500 mg PO BIDCM #60 tab 06/16/19 Citalopram [Celexa] 20 mg PO DAILY #30 tab 06/16/19 Ferrous Sulfate 325 mg PO BIDCM #60 tab 06/16/19 Magnesium Oxide [Mag-Ox 400] 400 mg PO BIDCM #60 tab 06/16/19 Nicotine [Nicoderm Cq] 21 mg TRANSDERM. DAILY #28 patch 06/16/19 Pantoprazole Sodium [Protonix] 20 mg PO BID tab 06/16/19 Thiamine Hydrochloride [Vitamin B1] 100 mg PO DAILYCM #30 tab 06/16/19 buPROPion XL [Wellbutrin Xl] 150 mg PO DAILY #30 tablet.xl 06/16/19 busPIRone [Buspar] 5 mg PO BID #60 tab 06/16/19 busPIRone [Buspar] 15 mg PO BID #60 tab 06/16/19 traMADol [Ultram] 50 mg PO BID #60 tab 06/16/19 Potassium Chloride [K-Dur] 20 meq PO DAILY #10 tab 07/03/19 Surgical History: - - surgery on left foot due to accident, carotid endarterectemy on the right side. Psychiatric History: Anxiety, Depression Smoking Status: Current every day smoker - *Family History Maternal History Items: Hypertension, No pertinent history - denies cancer, cad, DM, stroke, - - Mother had a history of alcoholism but quit drinking at the age of 55 Paternal History Items: - - alcoholism, of suicide Review of Systems Unable to obtain accurate/complete ROS d/t: Patient on the vent VTE Information - Inpt Only VTE Present on Admission: No VTE Mechan Device Prophylaxis: SCD's VTE Pharm Prophylaxis ordered?: Yes Patient Problems: Active and Suspected Problems Angioedema (Acute) Objective: GENERAL: Dated on the vent HEENT: Atraumatic; EYES; Anicteric, Normal Conjunctiva NECK; supple, normal thyroid, RESPIRATORY: Diminished to auscultation CARDIOVASCULAR: Regular S1 S2, GI: soft, normoactive bowel sounds, : No Renal angle tenderness; EXTREMITIES: No edema, no clubbing, MUSCULOSKELETAL: no muscle waisting NEURO: sedated on the vent SKIN: No Rash PSYCH; Flat affect - Physical Exam Vitals/I&O's: Vital Signs Temp Pulse Resp BP Pulse Ox 97.8 F 88 22 H 190/95 H 95 08/30/19 11:16 08/30/19 11:32 08/30/19 11:32 08/30/19 11:32 08/30/19 11:32 Oxygen Delivery Method Room Air Weight: 80.4 kg Body Mass Index (BMI) 27.7 Finger Stick Blood Glucose 120 Laboratory Results 08/30/19 10:55: WBC 6.1, RBC 3.71 L, Hgb 10.3 L, Hct 32.2 L, MCV 86.8, MCH 27.8, MCHC 32.0, RDW Std Deviation 44.3 H, RDW Coeff of Donnie 14.0, Plt Count 140 L, MPV 9.6, Immature Gran % (Auto) 0.300, Neut % (Auto) 72.8 H, Lymph % (Auto) 15.0 L, [place] % (Auto) 9.4, Eos % (Auto) 1.8, Baso % (Auto) 0.7, Absolute Neuts (auto) 4.4, Absolute Lymphs (auto) 0.91, Nucleated RBC % 0 08/30/19 10:55: Sodium Pending, Potassium Pending, Chloride Pending, Carbon Dioxide Pending, Anion Gap Pending, BUN Pending, Creatinine Pending, Est GFR (MDRD) Af Amer Pending, Est GFR (MDRD) Non-Af Pending, BUN/Creatinine Ratio Pending, Glucose Pending, Calcium Pending, Total Bilirubin Pending, AST Pending, ALT Pending, Alkaline Phosphatase Pending, Total Protein Pending, Albumin Pending Assessment/Plan All Active Problems Septic shock (Acute) Gastroenteritis (Acute) Acute renal failure (Acute) Lactic acidosis (Acute) Gastroenteritis (Acute) Angioedema (Acute) Hyponatremia (Resolved) Elevated troponin (Resolved) COPD exacerbation (Resolved) Debility (Acute) Metabolic encephalopathy (Acute) Thrombocytopenia (Resolved) Pneumonia (Resolved) Neutropenia (Resolved) Hypokalemia (Resolved) Diarrhea (Resolved) GI bleed (Resolved) Hypomagnesemia (Resolved) Hepatitis C (Ruled-out) The patient is a 58 year old M with her history sent in for essential hypertension who was brought to the emergency department by the squad. Patient apparently woke up in the morning when he noticed significant tongue swelling with difficulty swallowing and hoarse voice. He did call the squad patient was given Benadryl in route to the hospital. In the emergency department patient was found to have with airway obstruction. Stat airway team was called patient was taken to the emergency department for emergency intubation in the OR 1. Acute hypoxic respiratory failure ?Secondary to YOSEF inhibitor induced angioedema with upper airway obstruction. Patient was taken to the OR where he underwent emergency intubation and subseq uently transferred to the intensive care unit. Patient left on the vent consult placed to Dr. Thomas with intensive care. Patient also placed on Solu-Medrol as well as Pepcid and Benadryl as needed 2. Essential hypertension ?Patient is on both YOSEF inhibitors, amlodipine as well as beta-blockers YOSEF inhibitors discontinued 3. Dyslipidemia ?patient is on atorvastatin at home 4. Chronic alcoholic dependence ?With with previous admission for delirium tremens. Currently on the vent do plan to add Precedex 5. Hyponatremia -Has some chronicity to his hyponatremia sodium levels on admission 132 6. COPD ?Currently not in exacerbation 7. Tobacco dependence -do plan to gambling counsellor on cessation once patient is weaned off the vent 8 Carotid artery disease - with history of right carotid endarterectomy 9. Chronic congestive heart failure -with preserved ejection fraction 10. History of obstructive sleep apnea - with history of noncompliance with CPAP therapy 11. History of esophageal varices ?Patient on beta-blockers 12. Depression with anxiety -Per history 10. DVT prophylaxis ?Lovenox Inpatient E&M: 18551 Init Hosp L3
[2019-08-30 11:40] LABS: ALB/GLOB Ratio 0.8 RATIO (0.9-2.4); AST(SGOT) 65 U/L (15-37); Alanine Aminotransfer ALT/SGPT 23 U/L (16-61); Albumin, Serum 3.1 g/dL (3.2-5.0); Alkaline Phosphatase 273 U/L (45-117); Anion Gap 6 (5-15); BUN 8 mg/dL (7-18); BUN/Creat Ratio 10.5 RATIO (10-20); Calcium,Total 8.9 mg/dL (8.5-10.1); Chloride 99 mmol/L (98-107); Creatinine, Serum 0.76 mg/dL (0.70-1.30); EST Glomerular Filtration Rate 111 mL/min (>60); Est Glom Filt Rate - Afr Amer 135 mL/min (>60); Estimated Creatinine Clearance 99.05 ml/min; Glucose 96 mg/dL (74-106); Potassium 3.9 mmol/L (3.5-5.1); Protein, Total 7.1 g/dL (6.4-8.2); Sodium Level 132 mmol/L (136-145)
--- NOTE | 2019-08-30 11:45 | PCM.PN.BLA ---
Progress Note See the patient at the request of the emergency room for a stat airway. Briefly, the patient is a 50-year-old white male who is on lisinopril. This morning he noted swelling of his tongue difficulty swallowing and changes in his voice. He presented to the emergency room. He had Benadryl given by the squad on the way to the ER. In the emergency room the patient is satting at 92% on room air. He is smiling and laughing without any stridor or stertor. Floor of mouth is edematous. The anterior tongue is also edematous. Oropharynx is not visible. Neck reveals a carotid endarterectomy scar. Assessment: angioedema with floor of mouth and tongue involvement. Plan: the patient will be taken to the operating room for intubation and unlikely but possible tracheotomy. We discussed the risks and benefits of this with the patient and he agrees to proceed. STROKE Vital Signs/Narrative: Vital Signs Temp Pulse Resp BP Pulse Ox 08/30/19 11:32 88 22 H 190/95 H 95 08/30/19 11:16 97.8 F 88 21 H 96 08/30/19 11:14 92 18 203/91 H 96 08/30/19 10:54 98.0 F 95 20 H 213/101 H 98
--- NOTE | 2019-08-30 11:52 | ED.RN ---
CALLED MATTEO ROLLE TO UPDATE ON PT'S SITUATION PER PT REQUEST.
[2019-08-30] MEDS: Propofol 10MG/Ml 1,000 MG/100 ML Bottle 4.8 MG CONT INF (12:20)
[2019-08-30] MEDS: fentaNYL drip 100 ML 2.5 MCG IV (12:45)
--- NOTE | 2019-08-30 12:55 | RAD_ITS ---
STUDY: X-RAY - ABDOMEN/PELVIS REASON FOR EXAM: Male, 58 years old. OG PLACEMENT TECHNIQUE: Single AP view of the abdomen / pelvis. COMPARISON: None. FINDINGS: Normal visualized lung bases. An OG tube is seen in good position its tip is in the gastric antrum. There is an unremarkable bowel gas pattern. There is no demonstrated free abdominal air. The visualized liver, spleen and kidneys are grossly normal in size and morphology. Normal soft tissue structures. Normal visualized osseous structures. RAD/Abdomen Single View (Portable) IMPRESSION: Normal x-ray examination of the abdomen and pelvis. Electronically Signed: Yary Kamara, at 13:47 EDT Tel , Service support ,
--- NOTE | 2019-08-30 12:55 | RAD_ITS ---
STUDY: X-RAY CHEST REASON FOR EXAM: Male, 58 years old. ETT PLACEMENT TECHNIQUE: Single AP portable view of the chest. COMPARISON: 08/30/2019 FINDINGS: Endotracheal tube is seen its tip is 4 cm superior to the vitaly. An NG tube is seen its tip is below the diaphragm is in good position. The lungs are underexpanded. There is no demonstrated pleural abnormality. Normal size heart. Normal mediastinum and emma. Normal visualized pulmonary arteries. Normal visualized aortic arch and descending thoracic aorta. Normal visualized thoracic spine. There is degenerative osteoarthritis of the bilateral shoulders. There is no demonstrated abnormality of the visualized soft tissue structures of the upper abdomen. RAD/Chest 1 View (Portable) IMPRESSION: Degenerative changes, as described above. No demonstrated acute cardiopulmonary process. Electronically Signed: Yary Kamara, at 13:33 EDT Tel , Service support ,
[2019-08-30] MEDS: DiphenhydrAMINE 50 MG/ML Syringe IV (13:12)
--- NOTE | 2019-08-30 13:30 | PCM.CON.CC ---
Reason for Consult Date of Consultation: 08/30/19 Reason for Consultation: Acute respiratory failure History of Present Illness: The patient is a 58-year-old male, with a history as outlined below, who presented to the emergency department on August 29 with tongue/oropharyngeal swelling. The patient is currently prescribed an YOSEF inhibitor and last took the aforementioned medication yesterday. The patient was recently admitted to the hospital in June 2019 with septic shock. The patient does have a history of chronic alcohol and tobacco dependency. He typically drinks between 6 and 12 beers per day. On presentation to the emergency department, the patient was noted to be afebrile but was significantly hypertensive with a blood pressure of 213/101 mmHg. The patient was, nevertheless, maintaining appropriate oxygen saturations on room air. Laboratory evaluation revealed no evidence of a leukocytosis. Chemistry profile was unremarkable. Upon initial evaluation in the emergency department, a stat airway team was called. Over concerns for the patency of the patient's airway, he was taken to the OR to undergo supervised intubation with ENT availability should tracheostomy be required. Despite concerns, the patient was able to be intubated by anesthesia. He was subsequently transferred back to the medical intensive care unit for further management. Past Medical History Past Medical History (Chronic Problems): Chronic Problems Iron deficiency (Chronic) Grade III diastolic dysfunction (Chronic) Pulmonary hypertension (Chronic) Moderate with a RV systolic estimated at 60 Mitral regurgitation (Chronic) Hiatal hernia (Chronic) small Esophageal varices determined by endoscopy (Chronic) stage II varices on EGD 04/28/[address] Abdullahi. Esophageal varices due to chronic alcohol dependence and chronic liver disease. Anxiety (Chronic) Anemia (Chronic) Pancreatitis (Chronic) Stroke (Chronic) Alcohol abuse (Chronic) Depression (Chronic) COPD (chronic obstructive pulmonary disease) (Chronic) Hyperlipemia (Chronic) GERD (gastroesophageal reflux disease) (Chronic) HTN (hypertension) (Chronic) Colonic polyp (Chronic) Colon, diverticulosis (Chronic) Nicotine addiction (Chronic) RENETTA (obstructive sleep apnea) (Chronic) non-compliant with PAP Carotid stenosis (Chronic) has had a R CEA Allergies No Known Allergies Allergy (Verified 05/08/19 14:54) Home Medications: Ambulatory Orders Medication Instructions Recorded Clopidogrel Bisulfate [Plavix] 75 mg PO DAILY 09/10/16 Folic Acid 1 mg PO DAILY@0800 09/10/16 Budesonide/Formoterol Fumarate 2 puff IH BID 04/25/19 [Symbicort 160-4.5 Mcg Inhaler] Cholecalciferol (VIT D3) [Vitamin 2,000 unit PO DAILY 04/25/19 D3] Metoprolol Tartrate [Lopressor 100 mg PO BID 05/25/19 (beta ran)] Acetaminophen [Tylenol Tablet] 650 mg PO Q6H PRN PRN tab 06/05/19 Amlodipine [Norvasc] 5 mg PO DAILY 06/05/19 Atorvastatin Calcium [Lipitor] 80 mg PO QHS 06/05/19 Lisinopril [Zestril] 20 mg PO DAILY 06/05/19 Multivitamins,Therapeutic 1 tab PO DAILY 06/05/19 [Multivitamin] Albuterol Inhaler [Ventolin Hfa] 2 puff INHALATION Q4H PRN PRN #1 06/16/19 inhaler Ascorbic Acid [Vitamin C] 500 mg PO BIDCM #60 tab 06/16/19 Citalopram [Celexa] 20 mg PO DAILY #30 tab 06/16/19 Ferrous Sulfate 325 mg PO BIDCM #60 tab 06/16/19 Magnesium Oxide [Mag-Ox 400] 400 mg PO BIDCM #60 tab 06/16/19 Nicotine [Nicoderm Cq] 21 mg TRANSDERM. DAILY #28 patch 06/16/19 Pantoprazole Sodium [Protonix] 20 mg PO BID tab 06/16/19 Thiamine Hydrochloride [Vitamin B1] 100 mg PO DAILYCM #30 tab 06/16/19 buPROPion XL [Wellbutrin Xl] 150 mg PO DAILY #30 tablet.xl 06/16/19 busPIRone [Buspar] 5 mg PO BID #60 tab 06/16/19 busPIRone [Buspar] 15 mg PO BID #60 tab 06/16/19 traMADol [Ultram] 50 mg PO BID #60 tab 06/16/19 Potassium Chloride [K-Dur] 20 meq PO DAILY #10 tab 07/03/19 Surgical History: - - surgery on left foot due to accident, carotid endarterectemy on the right side. Psychiatric History: Anxiety, Depression Smoking Status: Current every day smoker - *Family History Maternal History Items: Hypertension, No pertinent history - denies cancer, cad, DM, stroke, - - Mother had a history of alcoholism but quit drinking at the age of 55 Paternal History Items: - - alcoholism, of suicide Review of Systems Unable to obtain accurate/complete ROS d/t: Due to current intubation and mechanical ventilation status Patient Problems: Active and Suspected Problems Angioedema (Acute) Objective: The patient's most recent lab work, culture data and imaging studies have all been personally reviewed. - Physical Exam Vitals/I&O's: Vital Signs Temp Pulse Resp BP Pulse Ox 97.8 F 89 21 H 113/50 L 93 08/30/19 12:32 08/30/19 12:32 08/30/19 12:32 08/30/19 12:32 08/30/19 12:32 Oxygen Delivery Method Mechanical Ventilator Weight: 176 lb 2.389 oz Body Mass Index (BMI) 27.6 Finger Stick Blood Glucose 120 General: - - Intubated, sedated and mechanically ventilated. HEENT: Atraumatic, PERRLA, Normocephalic Oral: No Gingival or Mucosal Lesions/ Ulcerations, - - Endotracheal and OG tubes in place. Edematous/swollen tongue Neck: Supple, No Nodes, Trachea Midline Lungs: No rhonchi, No wheeze, No rales, Diminished Cardiovascular: Regular rate, Regular Rhythm, Normal S1, Normal S2 Abdomen: Bowel Sounds Present, Soft, Non Tender Extremities: No clubbing, No cyanosis Skin: No breakdown Musculoskeletal: No Tenderness to Palpation of Joints or Extremities Lymphatic: No Cervical, Supraclavicular, or Inguinal Adenopathy Neurological: - - No focal neurological deficits. Currently sedated on the vent. Labs (Last 48 Hours) 08/30/19 08/30/19 10:55 10:55 WBC 6.1 RBC 3.71 L Hgb 10.3 L Hct 32.2 L MCV 86.8 MCH 27.8 MCHC 32.0 RDW Std Deviation 44.3 H RDW Coeff of Donnie 14.0 Plt Count 140 L MPV 9.6 Immature Gran % (Auto) 0.300 Neut % (Auto) 72.8 H Lymph % (Auto) 15.0 L [place] % (Auto) 9.4 Eos % (Auto) 1.8 Baso % (Auto) 0.7 Absolute Neuts (auto) 4.4 Absolute Lymphs (auto) 0.91 Nucleated RBC % 0 Sodium 132 L Potassium 3.9 Chloride 99 Carbon Dioxide 27.0 Anion Gap 6 BUN 8 Creatinine 0.76 Estim Creat Clear Calc 99.05 Est GFR (MDRD) Af Amer 135 Est GFR (MDRD) Non-Af 111 BUN/Creatinine Ratio 10.5 Glucose 96 Calcium 8.9 Total Bilirubin 0.50 AST 65 H ALT 23 Alkaline Phosphatase 273 H Total Protein 7.1 Albumin 3.1 L Globulin 4.0 Albumin/Globulin Ratio 0.8 L Clinical Impression(s) from Imaging Studies Chest X-Ray 08/30/19 12:55 IMPRESSION: Degenerative changes, as described above. No demonstrated acute cardiopulmonary process. Electronically Signed: Pringle Asad, at 13:33 EDT Tel , Service support , Current Medications Acetaminophen (Tylenol) 650 mg PO Q6H PRN PRN PRN Reason: Pain Score 1-10/Temp > 100.7 F Al Hydroxide/Mg Hydroxide (Mylanta Ii) 30 ml PO Q6H PRN PRN PRN Reason: Gastric Burning Albuterol Sulfate (Ventolin Aerosols) 2.5 mg INHALATION Q2H PRN PRN PRN Reason: SOB/Wheezing Chlorhexidine Gluconate () 15 ml PO BID [facility] Dextrose (D50w Syringe) 0 gm IV X1 PRN; Protocol PRN Reason: Hypoglycemia Diphenhydramine HCl (Benadryl) 50 mg IV Q4H PRN PRN PRN Reason: ALLERGIES Last Admin: 08/30/19 13:12 Dose: 50 mg Documented by: Diphenhydramine HCl (Benadryl) 50 mg IV DAILY [facility] Enoxaparin Sodium (Lovenox) 40 mg SC DAILY [facility] Famotidine (Pepcid) 20 mg PO BID [facility] Glucagon () 1 mg IM .X1 PRN PRN Reason: Hypoglycemia Guaifenesin (Robitussin) 10 ml PO Q4H PRN PRN PRN Reason: COUGH Propofol (Diprivan) 1,000 mg in 100 mls @ 4.794 mls/hr CONT INF .Q12H [facility]; Protocol Last Admin: 08/30/19 12:20 Dose: 10 mcg/kg/min, 4.8 mls/hr Documented by: Fentanyl () 100 mls @ 2.5 mls/hr IV UD [facility]; Protocol Last Admin: 08/30/19 12:45 Dose: 25 mcg/hr, 2.5 mls/hr Documented by: Magnesium Hydroxide (Milk Of Magnesia) 30 ml PO DAILY PRN PRN PRN Reason: Constipation Melatonin (Melatonin) 3 mg PO QHS PRN PRN PRN Reason: INSOMNIA Methylprednisolone (Solu-Medrol) 40 mg IV Q8 [facility] Last Admin: 08/30/19 13:12 Dose: 40 mg Documented by: Nitroglycerin (Nitrostat) 0.4 mg SUBLINGUAL Q5M PRN PRN Reason: CARDIAC/CHEST PAIN Ondansetron HCl (Zofran) 4 mg IV Q8H PRN PRN PRN Reason: NAUSEA/VOMITING Oxycodone HCl (Oxyir) 5 mg PO Q4H PRN PRN PRN Reason: Pain Score 4-10/10 Promethazine HCl (Phenergan) 25 mg IM Q6H PRN PRN PRN Reason: Breakthrough Nausea/Vomiting Throat Lozenges (Cepacol Sore Throat Lozenge) 1 lozenge MUCOUS MEM Q2H PRN PRN PRN Reason: SORE THROAT Assessment/Plan Active and Suspected Problems Angioedema (Acute) RECOMMENDATIONS: 1. Continue current supportive measures with invasive mechanical ventilatory support. Wean FiO2 to maintain oxygen saturations at or above 90%. 2. Continue Benadryl, Pepcid and steroids. 3. Propofol and fentanyl for sedation. 4. Start thiamine and folate. 5. Monitor for signs of alcohol withdrawal. 6. Plan for paired spontaneous awakening and breathing trials beginning tomorrow. 7. Appropriate ICU prophylaxis. IMPRESSIONS: 1. Acute respiratory failure The patient required intubation over concerns for airway patency due to the development of angioedema due to YOSEF inhibitor use. Plan at this time to continue current supportive measures. Wean FiO2 to maintain oxygen saturations at or above 90%. Continue Benadryl, Pepcid and steroids. Reevaluate airway tomorrow morning. Initiate propofol and fentanyl for sedation and pain control. 2. History of chronic alcohol and tobacco dependency The patient reportedly drinks between 6 and 12 beers per day. We will monitor for signs of alcohol withdrawal. He does have a history of DTs in the past. The patient is currently sedated on propofol. If needed, Precedex can be utilized for sedation to facilitate weaning from invasive mechanical ventilatory support. 3. Hypertension/hyperlipidemia/COPD/coronary artery disease Complicates care, management, recovery and prognosis. Continue home medications as indicated. TIME: 38 minutes of critical care time, independent of procedures, was spent addressing the patient's acute respiratory failure, YOSEF inhibitor induced angioedema, history of alcohol dependency, review of all data and collaboration with the care team. [id number] [phone]) [id number] Critical care first hour
[2019-08-30 14:11] LABS: Base Excess -5 mmol/L (-2 to +2); Bicarbonate 21.1 mmol/L (22-26); PO2 91 mmHG (75-100); SO2 96 % (95-99); Total Carbon Dioxide 22 mmol/L; pCO2 42.9 mmHg (35-45)
[2019-08-30 15:14] LABS: CPK Total, Creatine Kinase 47 U/L (39-308); Triglycerides 127 mg/dL
[2019-08-30] MEDS: fentaNYL drip 100 ML 15 MCG IV (18:35)
[2019-08-30] MEDS: Propofol 10MG/Ml 1,000 MG/100 ML Bottle 14.4 MG CONT INF (18:39)
[2019-08-30] MEDS: Famotidine 20 MG Tablet PO (21:52)
[2019-08-30] MEDS: Chlorhexidine 15 ML PO (21:53)
[2019-08-31] VITALS (37 sets, daily range): BP systolic 117–189; BP diastolic 58–115; PULSE 64–122; RESP 12–24; TEMP 36–36.8; O2SAT 92–100
[2019-08-31 00:45] LABS: Magnesium 1.6 mg/dL (1.6-2.6)
[2019-08-31] MEDS: fentaNYL drip 100 ML 15 MCG IV (00:56)
[2019-08-31] MEDS: Propofol 10MG/Ml 1,000 MG/100 ML Bottle 14.4 MG CONT INF (00:57)
[2019-08-31] MEDS: amLODIPine 5 MG Tablet PO (00:59)
[2019-08-31] MEDS: Albuterol 2.5 MG/3 ML VIAL.NEB. INHALATION ×2 (01:24→07:20)
[2019-08-31] MEDS: hydrALAZINE 20 MG/ML Vial 10 MG IV (05:13)
[2019-08-31] MEDS: LORazepam 2 MG/ML Syringe IV ×2 (05:14→07:11)
[2019-08-31 05:33] LABS: Absolute Neutrophil Count 4.4 X10^3/uL (2.0-7.7); Hematocrit 33.3 % (40-54); Hemoglobin 10.6 g/dL (13.0-16.5); Lymphocyte % 4.3 % (19-41); Mean Corp Hgb Conc 31.8 g/dL (32-36); Mean Corpuscular Hgb 28.3 pg (27.0-32.0); Mean Platelet Vol. 9.8 fl (6.2-12.0); Monocyte# 0.07 X10^3/uL; Monocyte% 1.5 % (0-10); NRBC Flagged by Analyzer 0 % (0-5); Neutrophil # 4.36 X10^3/uL (2.7-7.7); Neutrophil % 93.6 % (47-70); POSITIVE DIFFERENTIAL YES; Platelet Count 127 K/mm3 (150-450); RBC Distribution Width CV 13.5 % (11.6-14.6); RBC Distribution Width SD 44.1 fl (35.1-43.9); Red Blood Count 3.74 M/mm3 (4.6-6.2); White Blood Count 4.7 K/mm3 (4.4-11.0)
[2019-08-31 05:34] LABS: Differential Indicated SCAN CRITERIA MET
[2019-08-31 05:45] LABS: Anion Gap 9 (5-15); BUN 9 mg/dL (7-18); BUN/Creat Ratio 10.8 RATIO (10-20); Calcium,Total 8.8 mg/dL (8.5-10.1); Chloride 102 mmol/L (98-107); Creatinine, Serum 0.83 mg/dL (0.70-1.30); EST Glomerular Filtration Rate 101 mL/min (>60); Est Glom Filt Rate - Afr Amer 122 mL/min (>60); Estimated Creatinine Clearance 87.54 ml/min; Glucose 131 mg/dL (74-106); Magnesium 1.7 mg/dL (1.6-2.6); Sodium Level 134 mmol/L (136-145)
[2019-08-31 06:05] LABS: Blood Gas Specimen Type ART
[2019-08-31 06:06] LABS: Allen Test POS; FI02 30; Mode A-C; PEEP 5; RR 14; SITE L BRACHIAL; Time Given 1356; Vt 450
--- NOTE | 2019-08-31 06:10 | PN_ITS ---
Subjective: The patient was seen and examined at the bedside this morning. Events from the last 24 hours have been reviewed. The patient is currently afebrile, hemodynamically stable and maintaining appropriate oxygen saturations on assist control mode of mechanical ventilation with an FiO2 requirement of 25%. The patient's tongue swelling has improved from yesterday. Objective: The patient's most recent lab work, culture data and imaging studies have all been personally reviewed. General: Alert, No apparent distress, - - Remains intubated and mechanically ventilated. No ventilator dyssynchrony noted. HEENT: Atraumatic, Normocephalic, - - Significant improvement in tongue swelling versus yesterday Oral: Moist Mucosa, - - Endotracheal and OG tubes remain in place Neck: Supple, No Nodes, Trachea Midline Lungs: No rhonchi, No wheeze, No rales, Diminished Cardiovascular: Regular rate, Regular Rhythm, Normal S1, Normal S2 Abdomen: Bowel Sounds Present, Soft, Non Tender Extremities: No clubbing, No cyanosis, No edema Skin: No breakdown Musculoskeletal: No Tenderness to Palpation of Joints or Extremities Lymphatic: No Cervical, Supraclavicular, or Inguinal Adenopathy Neurological: Neuro grossly intact Vital Signs Temp Pulse Resp BP Pulse Ox 98.2 F 105 H 20 H 189/96 H 99 08/31/19 01:00 08/31/19 05:13 08/31/19 05:00 08/31/19 05:13 08/31/19 05:00 Oxygen Delivery Method Mechanical Ventilator Weight: 176 lb 2.389 oz Body Mass Index (BMI) 27.6 Finger Stick Blood Glucose 120 Intake and Output for Last 24 Hours 08/29/19 08/30/19 08/31/19 23:59 23:59 23:59 Intake Total 384.60 / 414.00 147.00 / 147.00 Output Total 1600 / 1600 Balance -1215.40 / -1186.00 147.00 / 147.00 Labs (Last 48 Hours) 08/30/19 08/30/19 08/30/19 10:55 10:55 10:55 WBC 6.1 RBC 3.71 L Hgb 10.3 L Hct 32.2 L MCV 86.8 MCH 27.8 MCHC 32.0 RDW Std Deviation 44.3 H RDW Coeff of Donnie 14.0 Plt Count 140 L MPV 9.6 Immature Gran % (Auto) 0.300 Neut % (Auto) 72.8 H Lymph % (Auto) 15.0 L Schley % (Auto) 9.4 Eos % (Auto) 1.8 Baso % (Auto) 0.7 Absolute Neuts (auto) 4.4 Absolute Lymphs (auto) 0.91 Nucleated RBC % 0 Atypical Lymphocytes Specimen Type Sample Site pH Bicarbonate Actual POC Total CO2 Base Excess O2 Saturation O2 % ABG pCO2 ABG pO2 Brian Test Respiration Rate Vent Mode Tidal Volume POC PEEP Blood Gas Notified Whom Blood Gas Notified Time Sodium 132 L Potassium 3.9 Chloride 99 Carbon Dioxide 27.0 Anion Gap 6 BUN 8 Creatinine 0.76 Estim Creat Clear Calc 99.05 Est GFR (MDRD) Af Amer 135 Est GFR (MDRD) Non-Af 111 BUN/Creatinine Ratio 10.5 Glucose 96 Calcium 8.9 Phosphorus 3.0 Magnesium 1.6 Total Bilirubin 0.50 AST 65 H ALT 23 Alkaline Phosphatase 273 H Total Creatine Kinase Total Protein 7.1 Albumin 3.1 L Globulin 4.0 Albumin/Globulin Ratio 0.8 L Triglycerides 08/30/19 08/30/19 08/31/19 11:45 13:56 05:25 WBC 4.7 RBC 3.74 L Hgb 10.6 L Hct 33.3 L MCV 89.0 MCH 28.3 MCHC 31.8 L RDW Std Deviation 44.1 H RDW Coeff of Donnie 13.5 Plt Count 127 L MPV 9.8 Immature Gran % (Auto) 0.600 Neut % (Auto) 93.6 H Lymph % (Auto) 4.3 L Schley % (Auto) 1.5 Eos % (Auto) 0.0 Baso % (Auto) 0.0 Absolute Neuts (auto) 4.4 Absolute Lymphs (auto) 0.20 L Nucleated RBC % 0 Atypical Lymphocytes Specimen Type ART Sample Site L BRACHIAL pH 7.30 L Bicarbonate Actual 21.1 L POC Total CO2 22 Base Excess -5 L O2 Saturation 96 O2 % 30 ABG pCO2 42.9 ABG pO2 91 Brian Test POS Respiration Rate 14 Vent Mode A-C Tidal Volume 450 POC PEEP 5 Blood Gas Notified Whom ICU MD Blood Gas Notified Time 1356 Sodium Potassium Chloride Carbon Dioxide Anion Gap BUN Creatinine Estim Creat Clear Calc Est GFR (MDRD) Af Amer Est GFR (MDRD) Non-Af BUN/Creatinine Ratio Glucose Calcium Phosphorus Magnesium Total Bilirubin AST ALT Alkaline Phosphatase Total Creatine Kinase 47 Total Protein Albumin Globulin Albumin/Globulin Ratio Triglycerides 127 08/31/19 05:25 WBC RBC Hgb Hct MCV MCH MCHC RDW Std Deviation RDW Coeff of Donnie Plt Count MPV Immature Gran % (Auto) Neut % (Auto) Lymph % (Auto) Schley % (Auto) Eos % (Auto) Baso % (Auto) Absolute Neuts (auto) Absolute Lymphs (auto) Nucleated RBC % Atypical Lymphocytes Specimen Type Sample Site pH Bicarbonate Actual POC Total CO2 Base Excess O2 Saturation O2 % ABG pCO2 ABG pO2 Brian Test Respiration Rate Vent Mode Tidal Volume POC PEEP Blood Gas Notified Whom Blood Gas Notified Time Sodium 134 L Potassium 4.0 Chloride 102 Carbon Dioxide 23.0 Anion Gap 9 BUN 9 Creatinine 0.83 Estim Creat Clear Calc 87.54 Est GFR (MDRD) Af Amer 122 Est GFR (MDRD) Non-Af 101 BUN/Creatinine Ratio 10.8 Glucose 131 H Calcium 8.8 Phosphorus Magnesium 1.7 Total Bilirubin AST ALT Alkaline Phosphatase Total Creatine Kinase Total Protein Albumin Globulin Albumin/Globulin Ratio Triglycerides Clinical Impression(s) from Imaging Studies Chest X-Ray 08/30/19 12:55 IMPRESSION: Degenerative changes, as described above. No demonstrated acute cardiopulmonary process. Electronically Signed: Yary Kamara at 13:33 EDT Tel , Service support , KUB X-Ray 08/30/19 12:55 IMPRESSION: Normal x-ray examination of the abdomen and pelvis. Electronically Signed: Yary Kamara at 13:47 EDT Tel , Service support , Medical Necessity - Tobacco Use Smoking Status: Current every day smoker Assessment/Plan All Active Problems Septic shock (Acute) Gastroenteritis (Acute) Acute renal failure (Acute) Lactic acidosis (Acute) Gastroenteritis (Acute) Angioedema (Acute) Hyponatremia (Resolved) Elevated troponin (Resolved) COPD exacerbation (Resolved) Debility (Acute) Metabolic encephalopathy (Acute) Thrombocytopenia (Resolved) Pneumonia (Resolved) Neutropenia (Resolved) Hypokalemia (Resolved) Diarrhea (Resolved) GI bleed (Resolved) Hypomagnesemia (Resolved) Hepatitis C (Ruled-out) RECOMMENDATIONS: 1. Transition from propofol to Precedex, given history of DTs and alcohol withdrawal. 2. Continue patient on ventilator yet today. Plan for repeat spontaneous breathing trial tomorrow, with extubation likely. 3. Monitor for signs of alcohol withdrawal. Continue thiamine and folate. 4. Continue bronchodilator therapy. 5. Continue Benadryl, Pepcid and steroids. 6. Continue appropriate DVT prophylaxis. IMPRESSIONS: 1. Acute respiratory failure Improving. The patient required intubation over concerns for airway patency due to the development of angioedema due to YOSEF inhibitor use. Plan at this time to continue current supportive measures. Wean FiO2 to maintain oxygen saturations at or above 90%. Continue Benadryl, Pepcid and steroids. Tongue swelling has improved. The patient will remain on the ventilator for one additional day, with tentative plans for possible extubation tomorrow. Sedation regimen will be transitioned to Precedex, given history of alcohol withdrawal. 2. History of chronic alcohol and tobacco dependency The patient reportedly drinks between 6 and 12 beers per day. We will monitor for signs of alcohol withdrawal. He does have a history of DTs in the past. C ontinue Precedex for sedation as noted above, along with thiamine and folate. 3. Hypertension/hyperlipidemia/COPD/coronary artery disease Complicates care, management, recovery and prognosis. Continue home medications as indicated. TIME: 35 minutes of critical care time, independent of procedures, was spent addressing the patient's acute respiratory failure, YOSEF inhibitor induced angioedema, history of alcohol dependency, review of all data and collaboration with the care team. [id number]) [id number] Critical care first hour
--- NOTE | 2019-08-31 07:25 | PCM.PN.HOSP ---
Patient Problems: Active and Suspected Problems Angioedema (Acute) Reason for Visit: angioedema Subjective: The patient is a 58 year old M with her history sent in for essential hypertension who was brought to the emergency department by the squad. Patient apparently woke up in the morning when he noticed significant tongue swelling with difficulty swallowing and hoarse voice. He did call the squad patient was given Benadryl in route to the hospital. In the emergency department patient was found to have with airway obstruction. Stat airway team was called patient was taken to the emergency department for emergency intubation in the OR Objective: GENERAL: Patient awake on the vent HEENT: Atraumatic; EYES; Anicteric, Normal Conjunctiva NECK; supple, normal thyroid, RESPIRATORY: Diminished to auscultation CARDIOVASCULAR: Regular S1 S2, GI: soft, normoactive bowel sounds, : No Renal angle tenderness; EXTREMITIES: No edema, no clubbing, MUSCULOSKELETAL: no muscle waisting NEURO:Patient awake on the vent SKIN: No Rash PSYCH; Flat affect Vitals/I&O's: Vital Signs Temp Pulse Resp BP Pulse Ox 98.2 F 122 H 20 H 161/81 H 100 08/31/19 01:00 08/31/19 07:00 08/31/19 07:00 08/31/19 07:00 08/31/19 07:00 Oxygen Delivery Method Mechanical Ventilator Weight: 77.5 kg Body Mass Index (BMI) 27.6 Finger Stick Blood Glucose 120 Intake and Output for Last 24 Hours 08/29/19 08/30/19 08/31/19 23:59 23:59 23:59 Intake Total 384.60 / 414.00 247.00 / 247.00 Output Total 1600 / 1600 600 / 600 Balance -1215.40 / -1186.00 -353.00 / -353.00 Laboratory Results 08/30/19 10:55: WBC 6.1, RBC 3.71 L, Hgb 10.3 L, Hct 32.2 L, MCV 86.8, MCH 27.8, MCHC 32.0, RDW Std Deviation 44.3 H, RDW Coeff of Donnie 14.0, Plt Count 140 L, MPV 9.6, Immature Gran % (Auto) 0.300, Neut % (Auto) 72.8 H, Lymph % (Auto) 15.0 L, Starr % (Auto) 9.4, Eos % (Auto) 1.8, Baso % (Auto) 0.7, Absolute Neuts (auto) 4.4, Absolute Lymphs (auto) 0.91, Nucleated RBC % 0 08/30/19 10:55: Sodium 132 L, Potassium 3.9, Chloride 99, Carbon Dioxide 27.0, Anion Gap 6, BUN 8, Creatinine 0.76, Estim Creat Clear Calc 99.05, Est GFR (MDRD) Af Amer 135, Est GFR (MDRD) Non-Af 111, BUN/Creatinine Ratio 10.5, Glucose 96, Calcium 8.9, Total Bilirubin 0.50, AST 65 H, ALT 23, Alkaline Phosphatase 273 H, Total Protein 7.1, Albumin 3.1 L, Globulin 4.0, Albumin/Globulin Ratio 0.8 L 08/30/19 10:55: Phosphorus 3.0, Magnesium 1.6 08/30/19 11:45: Total Creatine Kinase 47, Triglycerides 127 08/30/19 13:56: Specimen Type ART, Sample Site L BRACHIAL, pH 7.30 L, Bicarbonate Actual 21.1 L, POC Total CO2 22, Base Excess -5 L, O2 Saturation 96, O2 % 30, ABG pCO2 42.9, ABG pO2 91, Brian Test POS, Respiration Rate 14, Vent Mode A-C, Tidal Volume 450, POC PEEP 5, Blood Gas Notified Whom ICU , Blood Gas Notified Time 1356 08/31/19 05:25: WBC 4.7, RBC 3.74 L, Hgb 10.6 L, Hct 33.3 L, MCV 89.0, MCH 28.3, MCHC 31.8 L, RDW Std Deviation 44.1 H, RDW Coeff of Donnie 13.5, Plt Count 127 L, MPV 9.8, Immature Gran % (Auto) 0.600, Neut % (Auto) 93.6 H, Lymph % (Auto) 4.3 L, Starr % (Auto) 1.5, Eos % (Auto) 0.0, Baso % (Auto) 0.0, Absolute Neuts (auto) 4.4, Absolute Lymphs (auto) 0.20 L, Nucleated RBC % 0, Atypical Lymphocytes 08/31/19 05:25: Sodium 134 L, Potassium 4.0, Chloride 102, Carbon Dioxide 23.0, Anion Gap 9, BUN 9, Creatinine 0.83, Estim Creat Clear Calc 87.54, Est GFR (MDRD) Af Amer 122, Est GFR (MDRD) Non-Af 101, BUN/Creatinine Ratio 10.8, Glucose 131 H, Calcium 8.8, Magnesium 1.7 Current Medications Acetaminophen (Tylenol) 650 mg PO Q6H PRN PRN PRN Reason: Pain Score 1-10/Temp > 100.7 F Al Hydroxide/Mg Hydroxide (Mylanta Ii) 30 ml PO Q6H PRN PRN PRN Reason: Gastric Burning Albuterol Sulfate (Ventolin Aerosols) 2.5 mg INHALATION Q2H PRN PRN PRN Reason: SOB/Wheezing Last Admin: 08/31/19 07:20 Dose: 2.5 mg Documented by: Amlodipine Besylate (Norvasc) 5 mg PO DAILY [facility] Last Admin: 08/31/19 00:59 Dose: 5 mg Documented by: Atorvastatin Calcium (Lipitor) 80 mg PO QHS [facility] Bupropion HCl (Wellbutrin Xl) 150 mg PO DAILY [facility] Buspirone HCl (Buspar) 20 mg PO BID [facility] Chlorhexidine Gluconate () 15 ml PO BID [facility] Last Admin: 08/30/19 21:53 Dose: 15 ml Documented by: Citalopram Hydrobromide (Celexa) 20 mg PO DAILY [facility] Clopidogrel Bisulfate (Plavix) 75 mg PO DAILY [facility] Dextrose (D50w Syringe) 0 gm IV X1 PRN; Protocol PRN Reason: Hypoglycemia Diphenhydramine HCl (Benadryl) 50 mg IV Q4H PRN PRN PRN Reason: ALLERGIES Last Admin: 08/30/19 13:12 Dose: 50 mg Documented by: Diphenhydramine HCl (Benadryl) 50 mg IV DAILY [facility] Enoxaparin Sodium (Lovenox) 40 mg SC DAILY [facility] Famotidine (Pepcid) 20 mg PO BID [facility] Last Admin: 08/30/19 21:52 Dose: 20 mg Documented by: Ferrous Sulfate (Ferrous Sulfate) 325 mg PO BIDCM@1200,1700 [facility] Folic Acid (Folic Acid) 1 mg PO DAILY@0800 [facility] Glucagon () 1 mg IM .X1 PRN PRN Reason: Hypoglycemia Guaifenesin (Robitussin) 10 ml PO Q4H PRN PRN PRN Reason: COUGH Hydralazine HCl (Apresoline Iv) 10 mg IV Q4H PRN PRN PRN Reason: SBP > 160 Last Admin: 08/31/19 05:13 Dose: 10 mg Documented by: Propofol (Diprivan) 1,000 mg in 100 mls @ 4.794 mls/hr CONT INF .Q12H [facility]; Protocol Last Titration: 08/31/19 05:00 Dose: 0 mcg/kg/min, 0 mls/hr Documented by: Fentanyl () 100 mls @ 2.5 mls/hr IV UD [facility]; Protocol Last Titration: 08/31/19 05:00 Dose: 0 mcg/hr, 0 mls/hr Documented by: Lorazepam (Ativan) 2 mg PO Q2H PRN PRN; Protocol PRN Reason: CIWA score > 8 but <15 Lorazepam (Ativan) 2 mg PO UD PRN; Protocol PRN Reason: CIWA score >/=15. Lorazepam (Ativan) 2 mg IV Q2H PRN PRN; Protocol PRN Reason: CIWA score > 8 but <15 Last Admin: 08/31/19 07:11 Dose: 2 mg Documented by: Lorazepam (Ativan) 2 mg IV UD PRN; Protocol PRN Reason: CIWA score >/=15. Magnesium Hydroxide (Milk Of Magnesia) 30 ml PO DAILY PRN PRN PRN Reason: Constipation Magnesium Oxide (Mag-Ox 400) [facility] Melatonin (Melatonin) 3 mg PO QHS PRN PRN PRN Reason: INSOMNIA Methylprednisolone (Solu-Medrol) 40 mg IV Q8 [facility] Last Admin: 08/31/19 05:16 Dose: 40 mg Documented by: Metoprolol Tartrate (Lopressor (Beta Olga)) 5 mg IV Q6H PRN PRN PRN Reason: SBP > 160, hold for HR < 60 Metoprolol Tartrate (Lopressor (Beta Olga)) 100 mg PO BID [facility] Multivitamins/Minerals (Multivitamin With Minerals (Bkc)) 1 tablet [facility] Nicotine (Nicoderm Cq (Pbkc)) 21 mg TRANSDERM. DAILY [facility] Last Admin: 08/31/19 00:58 Dose: 21 mg Documented by: Nitroglycerin (Nitrostat) 0.4 mg SUBLINGUAL Q5M PRN PRN Reason: CARDIAC/CHEST PAIN Ondansetron HCl (Zofran) 4 mg IV Q8H PRN PRN PRN Reason: NAUSEA/VOMITING Oxycodone HCl (Oxyir) 5 mg PO Q4H PRN PRN PRN Reason: Pain Score 4-10/10 Potassium Chloride (K-Dur) 20 meq PO DAILYCM [place] Promethazine HCl (Phenergan) 25 mg IM Q6H PRN PRN PRN Reason: Breakthrough Nausea/Vomiting Sodium Chloride () 10 - 40 ml IV UD PRN PRN Reason: SALINE FLUSH Thiamine HCl (Vitamin B1) 100 mg PO DAILYCM [place] Throat Lozenges (Cepacol Sore Throat Lozenge) 1 lozenge MUCOUS MEM Q2H PRN PRN PRN Reason: SORE THROAT STROKE Vital Signs/Narrative: Vital Signs Pulse Resp BP BP Pulse Ox 08/31/19 07:00 122 H 20 H 161/81 H 100 08/31/19 06:00 92 15 150/69 H 100 08/31/19 05:13 105 H 189/96 H 08/31/19 05:00 93 20 H 151/74 H 99 08/31/19 04:00 64 14 121/60 H 92 Medical Necessity - Tobacco Use Smoking Status: Current every day smoker Assessment/Plan All Active Problems Septic shock (Acute) Gastroenteritis (Acute) Acute renal failure (Acute) Lactic acidosis (Acute) Gastroenteritis (Acute) Angioedema (Acute) Hyponatremia (Resolved) Elevated troponin (Resolved) COPD exacerbation (Resolved) Debility (Acute) Metabolic encephalopathy (Acute) Thrombocytopenia (Resolved) Pneumonia (Resolved) Neutropenia (Resolved) Hypokalemia (Resolved) Diarrhea (Resolved) GI bleed (Resolved) Hypomagnesemia (Resolved) Hepatitis C (Ruled-out) The patient is a 58 year old M with her history sent in for essential hypertension who was brought to the emergency department by the squad. Patient apparently woke up in the morning when he noticed significant tongue swelling with difficulty swallowing and hoarse voice. He did call the squad patient was given Benadryl in route to the hospital. In the emergency department patient was found to have with airway obstruction. Stat airway team was called patient was taken to the emergency department for emergency intubation in the OR 1. Acute hypoxic respiratory failure ?Secondary to YOSEF inhibitor induced angioedema with upper airway obstruction. Patient was taken to the OR where he underwent emergency intubation and subsequently transferred to the intensive care unit. Patient left on the vent consult placed to Dr. Thomas with intensive care. Patient also placed on Solu-Medrol as well as Pepcid and Benadryl as needed ?08/31/2019: Patient remains on the vent. Case was discussed with business account specialist plan is to observe patient an additional day on the vent. Did continue with Pepcid Solu-Medrol as well as Benadryl as needed 2. Essential hypertension ?Patient is on both YOSEF inhibitors, amlodipine as well as beta-blockers YOSEF inhibitors discontinued ?08/31/2019; blood pressure has remained stable 3. Dyslipidemia ?patient is on atorvastatin at home 4. Chronic alcoholic dependence ?With with previous admission for delirium tremens. Currently on the vent do plan to add Precedex 5. Hyponatremia -Has some chronicity to his hyponatremia sodium levels on admission 132 6. COPD ?Currently not in exacerbation 7. Tobacco dependence -do plan to job placement counselor on cessation once patient is weaned off the vent 8 Carotid artery disease - with history of right carotid endarterectomy 9. Chronic congestive heart failure -with preserved ejection fraction 10. History of obstructive sleep apnea - with history of noncompliance with CPAP therapy 11. History of esophageal varices ?Patient on beta-blockers 12. Depression with anxiety -Per history 10. DVT prophylaxis ?Lovenox Inpatient E&M: [id number] [facility] L3
[2019-08-31] MEDS: Chlorhexidine 15 ML PO ×2 (11:00→21:40)
[2019-08-31] MEDS: busPIRone 5 MG Tablet 20 MG PO (11:01)
[2019-08-31] MEDS: Folic Acid 1 MG Tablet PO (11:01)
[2019-08-31] MEDS: Magnesium Oxide 400 MG Tablet PO (11:01)
[2019-08-31] MEDS: Famotidine 20 MG Tablet PO (11:02)
[2019-08-31] MEDS: Clopidogrel Bisulfate 75 MG Tablet PO (11:02)
[2019-08-31] MEDS: Multivitamins,Ther W-Minerals Tablet 1 TABLET PO (11:02)
[2019-08-31] MEDS: Thiamine Hydrochloride 100 MG Tablet PO (11:02)
[2019-08-31] MEDS: DiphenhydrAMINE 50 MG/ML Syringe IV (11:02)
[2019-08-31] MEDS: Metoprolol Tartrate 100 MG Tablet PO ×2 (11:02→21:40)
[2019-08-31] MEDS: Citalopram 20 MG Tablet PO (11:02)
[2019-08-31] MEDS: Enoxaparin 40 MG/0.4 ML Syringe SC (11:03)
--- NOTE | 2019-08-31 13:09 | CASEMGMT ---
RN CM Note: Pt remains on ventilator. Mother is bat person, living in [place]. Will defer RN CM assessment today. Anticipate pt will be extubated tomorrow and will be able to participate in assessment at that time. MALIA referral for ETOH abuse. Tosha CHAVEZN RN ACM
[2019-08-31] MEDS: 0.9% Saline Lock 10 ML Syringe IV (15:07)
[2019-08-31] MEDS: Ferrous Sulfate 300 MG/5 ML UDC PO (17:29)
[2019-08-31] MEDS: buPROPion 75 MG Tablet NG ×2 (17:29→21:40)
[2019-08-31] MEDS: Magnesium Oxide 400 MG Tablet GT (17:30)
[2019-08-31] MEDS: Famotidine 20 MG Tablet GT (21:39)
[2019-08-31] MEDS: oxyCODONE 5 MG Tablet GT (21:39)
[2019-08-31] MEDS: busPIRone 5 MG Tablet 20 MG GT (21:39)
[2019-08-31] MEDS: Atorvastatin Calcium 80 MG Tablet GT (21:40)
[2019-09-01] VITALS (36 sets, daily range): BP systolic 117–183; BP diastolic 51–114; PULSE 70–99; RESP 9–21; TEMP 36.1–37.4; O2SAT 92–100
--- NOTE | 2019-09-01 01:00 | RAD_ITS ---
STUDY: X-RAY CHEST REASON FOR EXAM: Male, 58 years old. ETT PLACEMENT TECHNIQUE: Single AP portable view of the chest. COMPARISON: August 30, 2019 chest x-ray FINDINGS: The endotracheal tube is 3.3 cm above the vitaly. There is a right side superior vena cava stent. An NG tube is partially visualized the tip is out of the [id number]. There is minimal atelectasis. There is no demonstrated pleural abnormality. There is mild cardiac enlargement. Normal mediastinum and emma. Normal visualized pulmonary arteries. Normal visualized aortic arch and descending thoracic aorta. There is a levoscoliosis of the thoracic spine. Normal visualized ribs, clavicles, and shoulders. There is no demonstrated abnormality of the visualized soft tissue structures of the upper abdomen. RAD/Chest 1 View (Portable) IMPRESSION: Endotracheal tube in satisfactory position. NG tube tip is difficult to visualize but appears to be an the stomach. Minimal atelectasis. Electronically Signed: Shaylee Pop MD at 1:39 EDT Tel , Service support ,
[2019-09-01] MEDS: LORazepam 2 MG/ML Syringe IV ×3 (01:06→22:21)
--- NOTE | 2019-09-01 01:11 | NURSING ---
IV pump alarming infusion complete and staff went into room to find pt leaned over self with his rt hand firmly gripping ETT. 2 staff members able to remove pt's hand from ETT and reposition pt and refasten restraints. When questioned, pt denies trying to pull ETT out, only scratching his face. Pt CIWA scored 8, PRN Ativan 2mg given IVP for CIWA.
[2019-09-01 03:39] LABS: Absolute Lymphocyte Count 0.19 X10^3/uL (0.83-4.51); Absolute Neutrophil Count 5.2 X10^3/uL (2.0-7.7); Basophil# 0.01 X10^3/uL; Basophil% 0.2 % (0-1); Hematocrit 31.4 % (40-54); Lymphocyte # 0.19 X10^3/ul (4.0); Lymphocyte % 3.4 % (19-41); Mean Corp Hgb Conc 31.8 g/dL (32-36); Mean Corpuscular Hgb 28.3 pg (27.0-32.0); Mean Platelet Vol. 10.7 fl (6.2-12.0); Monocyte# 0.17 X10^3/uL; NRBC Flagged by Analyzer 0 % (0-5); Neutrophil # 5.19 X10^3/uL (2.7-7.7); POSITIVE DIFFERENTIAL YES; Platelet Count 103 K/mm3 (150-450); RBC Distribution Width CV 13.6 % (11.6-14.6); RBC Distribution Width SD 43.9 fl (35.1-43.9); Red Blood Count 3.53 M/mm3 (4.6-6.2); White Blood Count 5.6 K/mm3 (4.4-11.0)
[2019-09-01 03:42] LABS: Differential Indicated SCAN CRITERIA MET
[2019-09-01 03:59] LABS: Differential Comment SCANNED
[2019-09-01] MEDS: hydrALAZINE 20 MG/ML Vial 10 MG IV (05:12)
--- NOTE | 2019-09-01 06:15 | PCM.PN.INT ---
Subjective: The patient was seen and examined at the bedside this morning. Events from the last 24 hours have been reviewed. The patient is currently afebrile, hemodynamically stable and maintaining appropriate oxygen saturations with an FiO2 requirement of 30%. The patient's tongue swelling continues to improve. He passed his spontaneous breathing trial this morning with a notable air leak. He is alert and able to follow commands appropriately. Objective: The patient's most recent lab work, culture data and imaging studies have all been personally reviewed. General: Alert, Cooperative, - - Remains intubated and mechanically ventilated. Currently tolerating spontaneous mode mechanical ventilation. HEENT: Atraumatic, Normocephalic, - Oral: Moist Mucosa, No Gingival or Mucosal Lesions/ Ulcerations, - - Endotracheal and OG tubes remain in place. There is no significant tongue or oropharyngeal swelling Neck: Supple, No Nodes, Trachea Midline Lungs: No rhonchi, No wheeze, No rales, Diminished Cardiovascular: Regular rate, Regular Rhythm, Normal S1, Normal S2 Abdomen: Bowel Sounds Present, Soft, Non Tender Extremities: No clubbing, No cyanosis, No edema Skin: No breakdown Musculoskeletal: No Tenderness to Palpation of Joints or Extremities Lymphatic: No Cervical, Supraclavicular, or Inguinal Adenopathy Neurological: Cranial nerves II-XII grossly intact, Neuro grossly intact, - - Alert and able to follow commands Vital Signs Temp Pulse Resp BP Pulse Ox 97.3 F L 76 14 127/72 H 98 09/01/19 06:00 09/01/19 06:00 09/01/19 06:00 09/01/19 06:00 09/01/19 06:00 Oxygen Delivery Method Mechanical Ventilator Weight: 168 lb 6.931 oz Body Mass Index (BMI) 27.6 Finger Stick Blood Glucose 120 Intake and Output for Last 24 Hours 08/30/19 08/31/19 09/01/19 23:59 23:59 23:59 Intake Total 384.60 / 414.00 614.22 / 629.72 108.50 / 108.50 Output Total 1600 / 1600 1225 / 1475 525 / 525 Balance -1215.40 / -1186.00 -610.78 / -845.28 -416.50 / -416.50 Labs (Last 48 Hours) 08/30/19 08/30/19 08/30/19 10:55 10:55 10:55 WBC 6.1 RBC 3.71 L Hgb 10.3 L Hct 32.2 L MCV 86.8 MCH 27.8 MCHC 32.0 RDW Std Deviation 44.3 H RDW Coeff of Donnie 14.0 Plt Count 140 L MPV 9.6 Immature Gran % (Auto) 0.300 Neut % (Auto) 72.8 H Lymph % (Auto) 15.0 L [place] % (Auto) 9.4 Eos % (Auto) 1.8 Baso % (Auto) 0.7 Absolute Neuts (auto) 4.4 Absolute Lymphs (auto) 0.91 Nucleated RBC % 0 Differential Comment Atypical Lymphocytes Specimen Type Sample Site pH Bicarbonate Actual POC Total CO2 Base Excess O2 Saturation O2 % ABG pCO2 ABG pO2 Brian Test Respiration Rate Vent Mode Tidal Volume POC PEEP Blood Gas Notified Whom Blood Gas Notified Time Sodium 132 L Potassium 3.9 Chloride 99 Carbon Dioxide 27.0 Anion Gap 6 BUN 8 Creatinine 0.76 Estim Creat Clear Calc 99.05 Est GFR (MDRD) Af Amer 135 Est GFR (MDRD) Non-Af 111 BUN/Creatinine Ratio 10.5 Glucose 96 Calcium 8.9 Phosphorus 3.0 Magnesium 1.6 Total Bilirubin 0.50 AST 65 H ALT 23 Alkaline Phosphatase 273 H Total Creatine Kinase Total Protein 7.1 Albumin 3.1 L Globulin 4.0 Albumin/Globulin Ratio 0.8 L Triglycerides 08/30/19 08/30/19 08/31/19 11:45 13:56 05:25 WBC 4.7 RBC 3.74 L Hgb 10.6 L Hct 33.3 L MCV 89.0 MCH 28.3 MCHC 31.8 L RDW Std Deviation 44.1 H RDW Coeff of Donnie 13.5 Plt Count 127 L MPV 9.8 Immature Gran % (Auto) 0.600 Neut % (Auto) 93.6 H Lymph % (Auto) 4.3 L [place] % (Auto) 1.5 Eos % (Auto) 0.0 Baso % (Auto) 0.0 Absolute Neuts (auto) 4.4 Absolute Lymphs (auto) 0.20 L Nucleated RBC % 0 Differential Comment Atypical Lymphocytes Specimen Type ART Sample Site L BRACHIAL pH 7.30 L Bicarbonate Actual 21.1 L POC Total CO2 22 Base Excess -5 L O2 Saturation 96 O2 % 30 ABG pCO2 42.9 ABG pO2 91 Brian Test POS Respiration Rate 14 Vent Mode A-C Tidal Volume 450 POC PEEP 5 Blood Gas Notified Whom ICU MD Blood Gas Notified Time 1356 Sodium Potassium Chloride Carbon Dioxide Anion Gap BUN Creatinine Estim Creat Clear Calc Est GFR (MDRD) Af Amer Est GFR (MDRD) Non-Af BUN/Creatinine Ratio Glucose Calcium Phosphorus Magnesium Total Bilirubin AST ALT Alkaline Phosphatase Total Creatine Kinase 47 Total Protein Albumin Globulin Albumin/Globulin Ratio Triglycerides 127 08/31/19 09/01/19 09/01/19 05:25 03:20 03:20 WBC 5.6 RBC 3.53 L Hgb 10.0 L Hct 31.4 L MCV 89.0 MCH 28.3 MCHC 31.8 L RDW Std Deviation 43.9 RDW Coeff of Donnie 13.6 Plt Count 103 L MPV 10.7 Immature Gran % (Auto) 0.400 Neut % (Auto) 93.0 H Lymph % (Auto) 3.4 L [place] % (Auto) 3.0 Eos % (Auto) 0.0 Baso % (Auto) 0.2 Absolute Neuts (auto) 5.2 Absolute Lymphs (auto) 0.19 L Nucleated RBC % 0 Differential Comment SCANNED Atypical Lymphocytes Specimen Type Sample Site pH Bicarbonate Actual POC Total CO2 Base Excess O2 Saturation O2 % ABG pCO2 ABG pO2 Brian Test Respiration Rate Vent Mode Tidal Volume POC PEEP Blood Gas Notified Whom Blood Gas Notified Time Sodium 134 L 136 Potassium 4.0 4.3 Chloride 102 103 Carbon Dioxide 23.0 25.0 Anion Gap 9 8 BUN 9 13 Creatinine 0.83 0.78 Estim Creat Clear Calc 87.54 93.16 Est GFR (MDRD) Af Amer 122 130 Est GFR (MDRD) Non-Af 101 108 BUN/Creatinine Ratio 10.8 16.6 Glucose 131 H 151 H Calcium 8.8 8.6 Phosphorus Magnesium 1.7 Total Bilirubin AST ALT Alkaline Phosphatase Total Creatine Kinase Total Protein Albumin Globulin Albumin/Globulin Ratio Triglycerides Microbiology 08/31/19 01:10 Sputum, Induced/Lukens Gram Stain - Final Clinical Impression(s) from Imaging Studies Chest X-Ray 08/30/19 12:55 IMPRESSION: Degenerative changes, as described above. No demonstrated acute cardiopulmonary process. Electronically Signed: Yary Kamara, at 13:33 EDT Tel , Service support , KUB X-Ray 08/30/19 12:55 IMPRESSION: Normal x-ray examination of the abdomen and pelvis. Electronically Signed: Pringle Asad, at 13:47 EDT Tel , Service support , Chest X-Ray 09/01/19 01:00 IMPRESSION: Endotracheal tube in satisfactory position. NG tube tip is difficult to visualize but appears to be an the stomach. Minimal atelectasis. Electronically Signed: Shaylee Pop MD at 1:39 EDT Tel , Service support , Medical Necessity - Tobacco Use Smoking Status: Current every day smoker Assessment/Plan All Active Problems Septic shock (Acute) Gastroenteritis (Acute) Acute renal failure (Acute) Lactic acidosis (Acute) Gastroenteritis (Acute) Angioedema (Acute) Hyponatremia (Resolved) Elevated troponin (Resolved) COPD exacerbation (Resolved) Debility (Acute) Metabolic encephalopathy (Acute) Thrombocytopenia (Resolved) Pneumonia (Resolved) Neutropenia (Resolved) Hypokalemia (Resolved) Diarrhea (Resolved) GI bleed (Resolved) Hypomagnesemia (Resolved) Hepatitis C (Ruled-out) RECOMMENDATIONS: 1. Okay to proceed with a trial of extubation this morning. 2. Once extubated, wean supplemental oxygen to maintain saturations at or above 90%. 3. Encourage incentive spirometer use and mobilize patient as tolerated. 4. Continue Precedex and wean as tolerated to prevent any alcohol withdrawal symptoms. 5. Continue thiamine and folate. 6. Okay to discontinue steroids and Benadryl. IMPRESSIONS: 1. Acute respiratory failure Resolved. The patient required intubation over concerns for airway patency due to the development of angioedema due to YOSEF inhibitor use. The patient's swelling improved with medical management. He is currently a candidate for a trial of extubation. Once extubated, supplemental oxygen will be weaned. A bedside swallow evaluation can be performed in his diet advanced accordingly. Scheduled Benadryl and steroids can be discontinued from my perspective. Encourage incentive spirometer use and mobilize patient as tolerated. 2. History of chronic alcohol and tobacco dependency The patient reportedly drinks between 6 and 12 beers per day. The patient will remain on Precedex following extubation, with plans to wean as tolerated to prevent any alcohol withdrawal symptoms. He does have a history of having experienced DTs in the past. Continue thiamine and folate accordingly. 3. Hypertension/hyperlipidemia/COPD/coronary artery disease Complicates care, management, recovery and prognosis. Continue home medications as indicated. TIME: 36 minutes of critical care time, independent of procedures, was spent addressing the patient's acute respiratory failure, YOSEF inhibitor induced angioedema, history of alcohol dependency, review of all data and collaboration with the care team. [id number]) [id number] Critical care first hour
--- NOTE | 2019-09-01 07:21 | PN_ITS ---
Patient Problems: Active and Suspected Problems Angioedema (Acute) Reason for Visit: Angioedema Subjective: Patient successfully weaned off the vent this a.m. Remains on Precedex for DT precautions Objective: GENERAL: Patient awake HEENT: Atraumatic; EYES; Anicteric, Normal Conjunctiva NECK; supple, normal thyroid, RESPIRATORY: Diminished to auscultation CARDIOVASCULAR: Regular S1 S2, GI: soft, normoactive bowel sounds, : No Renal angle tenderness; EXTREMITIES: No edema, no clubbing, MUSCULOSKELETAL: no muscle waisting NEURO: Grossly intact SKIN: No Rash PSYCH; Flat affect Vitals/I&O's: Vital Signs Temp Pulse Resp BP Pulse Ox 97.3 F L 76 14 127/72 H 98 09/01/19 06:00 09/01/19 06:00 09/01/19 06:00 09/01/19 06:00 09/01/19 06:00 Oxygen Delivery Method Mechanical Ventilator Weight: 76.4 kg Body Mass Index (BMI) 27.6 Finger Stick Blood Glucose 120 Intake and Output for Last 24 Hours 08/30/19 08/31/19 09/01/19 23:59 23:59 23:59 Intake Total 384.60 / 414.00 614.22 / 629.72 126.43 / 126.43 Output Total 1600 / 1600 1225 / 1475 525 / 525 Balance -1215.40 / -1186.00 -610.78 / -845.28 -398.57 / -398.57 Microbiology Past 72 Hours 08/31/19 01:10 Sputum, Induced/Lukens Gram Stain - Final Laboratory Results 09/01/19 03:20: WBC 5.6, RBC 3.53 L, Hgb 10.0 L, Hct 31.4 L, MCV 89.0, MCH 28.3, MCHC 31.8 L, RDW Std Deviation 43.9, RDW Coeff of Donnie 13.6, Plt Count 103 L, MPV 10.7, Immature Gran % (Auto) 0.400, Neut % (Auto) 93.0 H, Lymph % (Auto) 3.4 L, [place] % (Auto) 3.0, Eos % (Auto) 0.0, Baso % (Auto) 0.2, Absolute Neuts (auto) 5.2, Absolute Lymphs (auto) 0.19 L, Nucleated RBC % 0, Differential Comment SCANNED 09/01/19 03:20: Sodium 136, Potassium 4.3, Chloride 103, Carbon Dioxide 25.0, Anion Gap 8, BUN 13, Creatinine 0.78, Estim Creat Clear Calc 93.16, Est GFR (MDRD) Af Amer 130, Est GFR (MDRD) Non-Af 108, BUN/Creatinine Ratio 16.6, Glucose 151 H, Calcium 8.6 Current Medications Acetaminophen (Tylenol Liquid) 650 mg GT Q6H PRN PRN PRN Reason: Pain Score 1-10/Temp > 100.7 F Al Hydroxide/Mg Hydroxide (Mylanta Ii) 30 ml GT Q6H PRN PRN PRN Reason: Gastric Burning Albuterol Sulfate (Ventolin Aerosols) 2.5 mg INHALATION Q2H PRN PRN PRN Reason: SOB/Wheezing Last Admin: 08/31/19 07:20 Dose: 2.5 mg Documented by: Amlodipine Besylate (Norvasc) 5 mg GT DAILY [facility] Atorvastatin Calcium (Lipitor) 80 mg GT QHS [facility] Last Admin: 08/31/19 21:40 Dose: 80 mg Documented by: Bupropion HCl (Wellbutrin Tablets) 75 mg NG BID [facility] Last Admin: 08/31/19 21:40 Dose: 75 mg Documented by: Buspirone HCl (Buspar) 20 mg GT BID [facility] Last Admin: 08/31/19 21:39 Dose: 20 mg Documented by: Chlorhexidine Gluconate () 15 ml PO BID [facility] Last Admin: 08/31/19 21:40 Dose: 15 ml Documented by: Citalopram Hydrobromide (Celexa) 20 mg GT DAILY [facility] Clopidogrel Bisulfate (Plavix) 75 mg GT DAILY [facility] Dextrose (D50w Syringe) 0 gm IV X1 PRN; Protocol PRN Reason: Hypoglycemia Diphenhydramine HCl (Benadryl) 50 mg IV Q4H PRN PRN PRN Reason: ALLERGIES Last Admin: 08/30/19 13:12 Dose: 50 mg Documented by: Diphenhydramine HCl (Benadryl) 50 mg IV DAILY [facility] Last Admin: 08/31/19 11:02 Dose: 50 mg Documented by: Enoxaparin Sodium (Lovenox) 40 mg SC DAILY [facility] Last Admin: 08/31/19 11:03 Dose: 40 mg Documented by: Famotidine (Pepcid) 20 mg GT BID [facility] Last Admin: 08/31/19 21:39 Dose: 20 mg Documented by: Ferrous Sulfate (Ferrous Sulfate Syrup) 300 mg PO BIDCM@1200,1700 [facility] Last Admin: 08/31/19 17:29 Dose: 300 mg Documented by: Folic Acid (Folic Acid) 1 mg GT DAILY@0800 [facility] Glucagon () 1 mg IM .X1 PRN PRN Reason: Hypoglycemia Guaifenesin (Robitussin) 10 ml GT Q4H PRN PRN PRN Reason: COUGH Hydralazine HCl (Apresoline Iv) 10 mg IV Q4H PRN PRN PRN Reason: SBP > 160 Last Admin: 09/01/19 05:12 Dose: 10 mg Documented by: Dexmedetomidine HCl 400 mcg/ (Sodium Chloride) 100 mls @ 9.688 mls/hr CONT INF .[id number] [facility]; Protocol Last Titration: 09/01/19 07:15 Dose: 0.6 mcg/kg/hr, 11.6 mls/hr Documented by: Lorazepam (Ativan) 2 mg IV Q2H PRN PRN; Protocol PRN Reason: CIWA score > 8 but <15 Last Admin: 09/01/19 01:06 Dose: 2 mg Documented by: Lorazepam (Ativan) 2 mg IV UD PRN; Protocol PRN Reason: CIWA score >/=15. Lorazepam (Ativan) 2 mg NG Q2H PRN PRN; Protocol PRN Reason: CIWA score > 8 but <15 Lorazepam (Ativan) 2 mg NG UD PRN; Protocol PRN Reason: CIWA score >/=15. Magnesium Hydroxide (Milk Of Magnesia) 30 ml GT DAILY PRN PRN PRN Reason: Constipation Magnesium Oxide (Mag-Ox 400) 400 mg GT BIDCM [facility] Last Admin: 08/31/19 17:30 Dose: 400 mg Documented by: Melatonin (Melatonin) 3 mg GT QHS PRN PRN PRN Reason: INSOMNIA Methylprednisolone (Solu-Medrol) 40 mg IV Q8 [facility] Last Admin: 09/01/19 05:12 Dose: 40 mg Documented by: Metoprolol Tartrate (Lopressor (Beta Olga)) 5 mg IV Q6H PRN PRN PRN Reason: SBP > 160, hold for HR < 60 Metoprolol Tartrate (Lopressor (Beta Olga)) 100 mg PO BID [facility] Last Admin: 08/31/19 21:40 Dose: 100 mg Documented by: Multivitamins/Minerals (Multivitamin With Minerals (Bkc)) [facility] Last Admin: 08/31/19 11:02 Dose: 1 tablet Documented by: Nicotine (Nicoderm Cq (Pbkc)) 21 mg TRANSDERM. DAILY [facility] Last Admin: 08/31/19 11:31 Dose: Not Given Documented by: Nitroglycerin (Nitrostat) 0.4 mg SUBLINGUAL Q5M PRN PRN Reason: CARDIAC/CHEST PAIN Ondansetron HCl (Zofran) 4 mg IV Q8H PRN PRN PRN Reason: NAUSEA/VOMITING Oxycodone HCl (Oxyir) 5 mg GT Q4H PRN PRN PRN Reason: Pain Score 4-10/10 Last Admin: 08/31/19 21:39 Dose: 5 mg Documented by: Potassium Chloride (Potassium Chl Soln) 20 meq [facility] Last Admin: 08/31/19 17:30 Dose: 20 meq Documented by: Promethazine HCl (Phenergan) 25 mg IM Q6H PRN PRN PRN Reason: Breakthrough Nausea/Vomiting Sodium Chloride () 10 - 40 ml IV UD PRN PRN Reason: SALINE FLUSH Last Admin: 08/31/19 15:07 Dose: 10 ml Documented by: Thiamine HCl (Vitamin B1) [facility] Throat Lozenges (Cepacol Sore Throat Lozenge) 1 lozenge MUCOUS MEM Q2H PRN PRN PRN Reason: SORE THROAT STROKE Vital Signs/Narrative: Vital Signs Temp Pulse Resp BP BP Pulse Ox 09/01/19 06:00 97.3 F L 76 14 127/72 H 98 09/01/19 05:12 80 168/107 H 09/01/19 05:10 18 09/01/19 05:00 97.5 F L 70 18 168/107 H 96 09/01/19 04:00 97.7 F L 74 14 157/84 H 94 09/01/19 03:47 75 Medical Necessity - Tobacco Use Smoking Status: Current every day smoker Assessment/Plan All Active Problems Septic shock (Acute) Gastroenteritis (Acute) Acute renal failure (Acute) Lactic acidosis (Acute) Gastroenteritis (Acute) Angioedema (Acute) Hyponatremia (Resolved) Elevated troponin (Resolved) COPD exacerbation (Resolved) Debility (Acute) Metabolic encephalopathy (Acute) Thrombocytopenia (Resolved) Pneumonia (Resolved) Neutropenia (Resolved) Hypokalemia (Resolved) Diarrhea (Resolved) GI bleed (Resolved) Hypomagnesemia (Resolved) Hepatitis C (Ruled-out) The patient is a 58 year old M with her history sent in for essential hypertension who was brought to the emergency department by the squad. Patient apparently woke up in the morning when he noticed significant tongue swelling with difficulty swallowing and hoarse voice. He did call the squad patient was given Benadryl in route to the hospital. In the emergency department patient was found to have with airway obstruction. Stat airway team was called patient was taken to the emergency department for emergency intubation in the OR 1. Acute hypoxic respiratory failure ?Secondary to YOSEF inhibitor induced angioedema with upper airway obstruction. Patient was taken to the OR where he underwent emergency intubation and subsequently transferred to the intensive care unit. Patient left on the vent consult placed to Dr. Thomas with intensive care. Patient also placed on Solu- Medrol as well as Pepcid and Benadryl as needed ?08/31/2019: Patient remains on the vent. Case was discussed with mortgage originator plan is to observe patient an additional day on the vent. Did continue with Pepcid Solu-Medrol as well as Benadryl as needed -09/01/2019 patient successfully weaned off the vent this a.m. 2. Essential hypertension ?Patient is on both YOSEF inhibitors, amlodipine as well as beta-blockers YOSEF inhibitors discontinued ?08/31/2019; blood pressure has remained stable 3. Dyslipidemia ?patient is on atorvastatin at home 4. Chronic alcoholic dependence ?With with previous admission for delirium tremens. Currently on the vent do plan to add Precedex 09/01/2019 patient remains on Precedex for DT precautions 5. Hyponatremia -Has some chronicity to his hyponatremia sodium levels on admission 132 6. COPD ?Currently not in exacerbation 7. Tobacco dependence -do plan to tour counselor on cessation once patient is weaned off the vent 8 Carotid artery disease - with history of right carotid endarterectomy 9. Chronic congestive heart failure -with preserved ejection fraction 10. History of obstructive sleep apnea - with history of noncompliance with CPAP therapy 11. History of esophageal varices ?Patient on beta-blockers 12. Depression with anxiety -Per history 10. DVT prophylaxis ?Lovenox Inpatient E&M: [id number] Subs Hosp L2
--- NOTE | 2019-09-01 10:36 | CASEMGMT ---
RN CM Assessment Note Presentation: angioedema, ventilator required. Hx of ETOH abuse Attempted to see pt in room, however pt is currently not able to participate. On Presedex, drowsy and did not wake up to participate. PCP: [facility] (called to verify) Preferred Pharmacy: [email or web address] Insurance: [facility], ID Benefits Prescription Benefit: yes through [facility]. On dc, pt will need to have scripts filled locally @ [facility] LNOK : Mother, Trisha Najera Living Arrangements: Lives alone in apartment. Transportation: TBD SW Referral: ETOH abuse DC PLAN: anticipate home on discharge. DC needs r/t ETOH per SW. PT/OT evaluations pending. CM will follow and assist with any dc needs. Tosha PEREIRA RN ACM
[2019-09-01] MEDS: Enoxaparin 40 MG/0.4 ML Syringe SC (12:22)
[2019-09-01] MEDS: Magnesium Oxide 400 MG Tablet PO ×2 (12:27→17:21)
[2019-09-01] MEDS: Citalopram 20 MG Tablet PO (12:27)
[2019-09-01] MEDS: Multivitamins,Ther W-Minerals Tablet 1 TABLET PO (12:27)
[2019-09-01] MEDS: amLODIPine 5 MG Tablet PO (12:28)
[2019-09-01] MEDS: Famotidine 20 MG Tablet PO ×2 (12:28→21:11)
[2019-09-01] MEDS: Metoprolol Tartrate 100 MG Tablet PO ×2 (12:28→21:11)
[2019-09-01] MEDS: busPIRone 5 MG Tablet 20 MG PO ×2 (12:28→21:10)
[2019-09-01] MEDS: Ferrous Sulfate 325 MG Tablet PO (12:29)
[2019-09-01] MEDS: Thiamine Hydrochloride 100 MG Tablet PO (12:29)
[2019-09-01] MEDS: Clopidogrel Bisulfate 75 MG Tablet PO (12:29)
[2019-09-01] MEDS: Folic Acid 1 MG Tablet PO (12:29)
[2019-09-01] MEDS: buPROPion (XL) 150 MG TABLET.XL PO (14:48)
[2019-09-01] MEDS: Acetaminophen 325 MG Tablet 650 MG PO (15:31)
--- NOTE | 2019-09-01 16:33 | CASEMGMT ---
Social Work Note MALIA reviewed previous notes, pt was on RU was provided information on behavior health, Palliative and additional resources for ETOH Abuse. SW received referral for ETOH use. SW met with pt and introduced self and role at [facility]. Pt is alert and orientated however appeared very sleeping during conversation. Pt states that he has gone back to drinking at home and the amount just depends on the day. Pt states it could be anywhere from 4 to 5 to 6 beers that he drinks daily. Pt states that he attempted to follow up with Behavior Health at [facility] but pt states they wouldn't accept me because I didn't have medicaid. Pt also states that he attempted to follow up with Palliative Care but states the same that they wouldn't accept me because I didn't have medicaid. Pt states that he now has medicaid as of Friday and plans on following up with [facility] Behavior Health and Palliative at discharge. MALIA offered to call [facility] Behavior Health and Palliative for pt, but pt denied. MALIA provided pt with [facility] Behavior Health pamphlet, [facility] palliative pamphlet and additional resources. MALIA will follow up with pt again before pt discharges once pt is more awake to continue discussion of discharge needs. Berta Ramirez YARDER PUNCHER, FLEX O WRITER OPERATOR
[2019-09-01] MEDS: LORazepam 1 MG Tablet 2 MG PO (20:02)
[2019-09-01] MEDS: oxyCODONE 5 MG Tablet PO (20:03)
[2019-09-01] MEDS: Mag Hydrox/Al Hydrox/Simeth 30 ML UDC PO (20:04)
--- NOTE | 2019-09-01 20:40 | NURSING ---
Pt noted to be moving toward end of bed in camera;pt states that he needs to pee and this urinal has a leak in it. Pt assisted to BSC, urinal did in fact have a leak and was thrown away. Pt very unsteady, moderate tremors sitting still. Staff remains in room until toileting complete; bed linen changed, pt washed, new EKG electrodes and oxygen sensor applied. Pt returns to bed w/max staff assist and guidance; bed exit alarm in place, call light within reach.
[2019-09-01] MEDS: Atorvastatin Calcium 80 MG Tablet PO (21:11)
[2019-09-01] MEDS: 0.9% Saline Lock 10 ML Syringe IV ×2 (22:20→23:23)
[2019-09-02] VITALS (17 sets, daily range): BP systolic 85–171; BP diastolic 61–82; PULSE 76–92; RESP 12–22; TEMP 36.6–37.2; O2SAT 86–96
[2019-09-02 05:13] LABS: Absolute Lymphocyte Count 0.65 X10^3/uL (0.83-4.51); Absolute Neutrophil Count 4.4 X10^3/uL (2.0-7.7); Hematocrit 30.5 % (40-54); Hemoglobin 9.7 g/dL (13.0-16.5); Lymphocyte # 0.65 X10^3/ul (4.0); Lymphocyte % 11.8 % (19-41); Mean Corp Hgb Conc 31.8 g/dL (32-36); Mean Corpuscular Hgb 28.2 pg (27.0-32.0); Mean Corpuscular Volume 88.7 fL (80-94); Monocyte# 0.41 X10^3/uL; Monocyte% 7.4 % (0-10); NRBC Flagged by Analyzer 0 % (0-5); Neutrophil # 4.43 X10^3/uL (2.7-7.7); Neutrophil % 80.4 % (47-70); POSITIVE COUNT YES; Platelet Count 88 K/mm3 (150-450); RBC Distribution Width CV 13.5 % (11.6-14.6); RBC Distribution Width SD 43.8 fl (35.1-43.9); Red Blood Count 3.44 M/mm3 (4.6-6.2); White Blood Count 5.5 K/mm3 (4.4-11.0)
[2019-09-02 05:26] LABS: Anion Gap 6 (5-15); BUN 16 mg/dL (7-18); BUN/Creat Ratio 17.5 RATIO (10-20); Calcium,Total 8.8 mg/dL (8.5-10.1); Chloride 106 mmol/L (98-107); Creatinine, Serum 0.92 mg/dL (0.70-1.30); EST Glomerular Filtration Rate 90 mL/min (>60); Est Glom Filt Rate - Afr Amer 109 mL/min (>60); Estimated Creatinine Clearance 78.98 ml/min; Glucose 88 mg/dL (74-106); Potassium 3.3 mmol/L (3.5-5.1); Sodium Level 139 mmol/L (136-145)
--- NOTE | 2019-09-02 06:10 | PCM.PN.INT ---
Subjective: The patient was seen and examined at the bedside this morning. Events from the last 24 hours have been reviewed. The patient is currently afebrile, hemodynamically stable and maintaining appropriate oxygen saturations on room air. The patient was successfully weaned from Precedex yesterday afternoon. However, late last evening, the patient experienced increasing CIWA scores which prompted its reinitiation. CIWA scores are currently much improved at 7. Objective: The patient's most recent lab work, culture data and imaging studies have all been personally reviewed. General: Alert, Cooperative, No apparent distress HEENT: Atraumatic, Normocephalic Oral: No Gingival or Mucosal Lesions/ Ulcerations Neck: Supple, No Nodes, Trachea Midline Lungs: No rhonchi, No wheeze, No rales, Diminished Cardiovascular: Regular rate, Regular Rhythm, Normal S1, Normal S2 Abdomen: Bowel Sounds Present, Soft, Non Tender Extremities: No clubbing, No cyanosis, No edema Skin: No breakdown Musculoskeletal: No Muscle Wasting Lymphatic: No Cervical, Supraclavicular, or Inguinal Adenopathy Neurological: Neuro grossly intact Psych/Mental Status: Normal Affect, Appropriate Vital Signs Temp Pulse Resp BP Pulse Ox 98.9 F 92 19 H 129/72 H 93 09/02/19 04:00 09/02/19 06:00 09/02/19 06:00 09/02/19 06:00 09/02/19 06:00 Oxygen Delivery Method Room Air Weight: 165 lb 12.602 oz Body Mass Index (BMI) 27.6 Finger Stick Blood Glucose 120 Intake and Output for Last 24 Hours 08/31/19 09/01/19 09/02/19 23:59 23:59 23:59 Intake Total 614.22 / 629.72 291.65 / 534.05 530.22 / 530.22 Output Total 1225 / 1475 875 / 1375 950 / 950 Balance -610.78 / -845.28 -583.35 / -840.95 -419.78 / -419.78 Labs (Last 48 Hours) 09/01/19 09/01/19 09/02/19 03:20 03:20 05:00 WBC 5.6 5.5 RBC 3.53 L 3.44 L Hgb 10.0 L 9.7 L Hct 31.4 L 30.5 L MCV 89.0 88.7 MCH 28.3 28.2 MCHC 31.8 L 31.8 L RDW Std Deviation 43.9 43.8 RDW Coeff of Donnie 13.6 13.5 Plt Count 103 L 88 L MPV 10.7 10.0 Immature Gran % (Auto) 0.400 0.400 Neut % (Auto) 93.0 H 80.4 H Lymph % (Auto) 3.4 L 11.8 L Miner % (Auto) 3.0 7.4 Eos % (Auto) 0.0 0.0 Baso % (Auto) 0.2 0.0 Absolute Neuts (auto) 5.2 4.4 Absolute Lymphs (auto) 0.19 L 0.65 L Nucleated RBC % 0 0 Differential Comment SCANNED Sodium Cancelled Potassium Cancelled Chloride Cancelled Carbon Dioxide Cancelled Anion Gap Cancelled BUN Cancelled Creatinine Cancelled Estim Creat Clear Calc Cancelled Est GFR (MDRD) Af Amer Cancelled Est GFR (MDRD) Non-Af Cancelled BUN/Creatinine Ratio Cancelled Glucose Cancelled Calcium Cancelled 09/02/19 05:00 WBC RBC Hgb Hct MCV MCH MCHC RDW Std Deviation RDW Coeff of Donnie Plt Count MPV Immature Gran % (Auto) Neut % (Auto) Lymph % (Auto) Miner % (Auto) Eos % (Auto) Baso % (Auto) Absolute Neuts (auto) Absolute Lymphs (auto) Nucleated RBC % Differential Comment Sodium 139 Potassium 3.3 L Chloride 106 Carbon Dioxide 27.0 Anion Gap 6 BUN 16 Creatinine 0.92 Estim Creat Clear Calc 78.98 Est GFR (MDRD) Af Amer 109 Est GFR (MDRD) Non-Af 90 BUN/Creatinine Ratio 17.5 Glucose 88 Calcium 8.8 Microbiology 08/31/19 01:10 Sputum, Induced/Lukens Gram Stain - Final 08/31/19 01:10 Sputum, Induced/Lukens Respiratory Culture - Preliminary GNR Poss Pseudomonas sp Clinical Impression(s) from Imaging Studies Chest X-Ray 08/30/19 12:55 IMPRESSION: Degenerative changes, as described above. No demonstrated acute cardiopulmonary process. Electronically Signed: Yary Kamara, at 13:33 EDT Tel , Service support , KUB X-Ray 08/30/19 12:55 IMPRESSION: Normal x-ray examination of the abdomen and pelvis. Electronically Signed: Yary Asad, at 13:47 EDT Tel , Service support , Chest X-Ray 09/01/19 01:00 IMPRESSION: Endotracheal tube in satisfactory position. NG tube tip is difficult to visualize but appears to be an the stomach. Minimal atelectasis. Electronically Signed: Shaylee Pop MD at 1:39 EDT Tel , Service support , Medical Necessity - Tobacco Use Smoking Status: Current every day smoker Assessment/Plan All Active Problems Septic shock (Acute) Gastroenteritis (Acute) Acute renal failure (Acute) Lactic acidosis (Acute) Gastroenteritis (Acute) Angioedema (Acute) Hyponatremia (Resolved) Elevated troponin (Resolved) COPD exacerbation (Resolved) Debility (Acute) Metabolic encephalopathy (Acute) Thrombocytopenia (Resolved) Pneumonia (Resolved) Neutropenia (Resolved) Hypokalemia (Resolved) Diarrhea (Resolved) GI bleed (Resolved) Hypomagnesemia (Resolved) Hepatitis C (Ruled-out) RECOMMENDATIONS: 1. Wean patient from Precedex today and start Librium taper if needed. 2. Continue alcohol withdrawal protocol with thiamine, folate and multivitamins. 3. Encourage incentive spirometer use and mobilize patient as tolerated. 4. Continue appropriate DVT prophylaxis. IMPRESSIONS: 1. Acute respiratory failure Resolved. The patient required intubation over concerns for airway patency due to the development of angioedema due to YOSEF inhibitor use. Although the patient was initially intubated for airway protection, he was able to be extubated within 48 hours. Swelling has resolved and airway remains patent. Continue to encourage incentive spirometer use and mobilize patient as tolerated. 2. Acute alcohol withdrawal The patient reportedly drinks between 6 and 12 beers per day. The patient will remain on Precedex, with plans to wean as tolerated to prevent any alcohol withdrawal symptoms. He does have a history of having experienced DTs in the past. Continue thiamine and folate accordingly. I would recommend today that we transition the patient from Precedex to Librium taper. 3. Hypertension/hyperlipidemia/COPD/coronary artery disease/tobacco dependency Complicates care, management, recovery and prognosis. Continue home medications as indicated. Continue nicotine replacement therapy. This note was generated with [employer] dictation software. It may contain incorrect words, spelling, and punctuation that were not noted in checking the note before signing. Inpatient E&M: 44469 Subs Hosp L3
--- NOTE | 2019-09-02 07:19 | PCM.PN.HOSP ---
Patient Problems: Active and Suspected Problems Angioedema (Acute) Reason for Visit: Follow-up angioedema acute alcohol withdrawal Subjective: Went into acute alcohol withdrawal following his extubation. Patient was restarted on Precedex during the night as a result of agitation. Currently on Ativan do plan to switch to Librium Objective: GENERAL: Patient awake HEENT: Atraumatic; EYES; Anicteric, Normal Conjunctiva NECK; supple, normal thyroid, RESPIRATORY: Diminished to auscultation CARDIOVASCULAR: Regular S1 S2, GI: soft, normoactive bowel sounds, : No Renal angle tenderness; EXTREMITIES: No edema, no clubbing, MUSCULOSKELETAL: no muscle waisting NEURO: Grossly intact SKIN: No Rash PSYCH; Flat affect Vitals/I&O's: Vital Signs Temp Pulse Resp BP Pulse Ox 98.9 F 92 19 H 129/72 H 93 09/02/19 04:00 09/02/19 06:00 09/02/19 06:00 09/02/19 06:00 09/02/19 06:00 Oxygen Delivery Method Room Air Weight: 75.2 kg Body Mass Index (BMI) 27.6 Finger Stick Blood Glucose 120 Intake and Output for Last 24 Hours 08/31/19 09/01/19 09/02/19 23:59 23:59 23:59 Intake Total 614.22 / 629.72 291.65 / 534.05 530.22 / 530.22 Output Total 1225 / 1475 875 / 1375 950 / 950 Balance -610.78 / -845.28 -583.35 / -840.95 -419.78 / -419.78 Microbiology Past 72 Hours 08/31/19 01:10 Sputum, Induced/Lukens Gram Stain - Final 08/31/19 01:10 Sputum, Induced/Lukens Respiratory Culture - Preliminary GNR Poss Pseudomonas sp Laboratory Results 09/01/19 03:20: Sodium Cancelled, Potassium Cancelled, Chloride Cancelled, Carbon Dioxide Cancelled, Anion Gap Cancelled, BUN Cancelled, Creatinine Cancelled, Estim Creat Clear Calc Cancelled, Est GFR (MDRD) Af Amer Cancelled, Est GFR (MDRD) Non-Af Cancelled, BUN/Creatinine Ratio Cancelled, Glucose Cancelled, Calcium Cancelled 09/02/19 05:00: WBC 5.5, RBC 3.44 L, Hgb 9.7 L, Hct 30.5 L, MCV 88.7, MCH 28.2, MCHC 31.8 L, RDW Std Deviation 43.8, RDW Coeff of Donnie 13.5, Plt Count 88 L, MPV 10.0, Immature Gran % (Auto) 0.400, Neut % (Auto) 80.4 H, Lymph % (Auto) 11.8 L, George % (Auto) 7.4, Eos % (Auto) 0.0, Baso % (Auto) 0.0, Absolute Neuts (auto) 4.4, Absolute Lymphs (auto) 0.65 L, Nucleated RBC % 0 09/02/19 05:00: Sodium 139, Potassium 3.3 L, Chloride 106, Carbon Dioxide 27.0, Anion Gap 6, BUN 16, Creatinine 0.92, Estim Creat Clear Calc 78.98, Est GFR (MDRD) Af Amer 109, Est GFR (MDRD) Non-Af 90, BUN/Creatinine Ratio 17.5, Glucose 88, Calcium 8.8 Current Medications Acetaminophen (Tylenol) 650 mg PO Q6H PRN PRN PRN Reason: Pain Score 1-10/Temp > 100.7 F Last Admin: 09/01/19 15:31 Dose: 650 mg Documented by: Al Hydroxide/Mg Hydroxide (Mylanta Ii) 30 ml PO Q6H PRN PRN PRN Reason: Gastric Burning Last Admin: 09/01/19 20:04 Dose: 30 ml Documented by: Albuterol Sulfate (Ventolin Aerosols) 2.5 mg INHALATION Q2H PRN PRN PRN Reason: SOB/Wheezing Last Admin: 08/31/19 07:20 Dose: 2.5 mg Documented by: Amlodipine Besylate (Norvasc) 5 mg PO DAILY [facility] Last Admin: 09/01/19 12:28 Dose: 5 mg Documented by: Atorvastatin Calcium (Lipitor) 80 mg PO QHS [facility] Last Admin: 09/01/19 21:11 Dose: 80 mg Documented by: Bupropion HCl (Wellbutrin Xl) 150 mg PO DAILY [facility] Last Admin: 09/01/19 14:48 Dose: 150 mg Documented by: Buspirone HCl (Buspar) 20 mg PO BID [facility] Last Admin: 09/01/19 21:10 Dose: 20 mg Documented by: Citalopram Hydrobromide (Celexa) 20 mg PO DAILY [facility] Last Admin: 09/01/19 12:27 Dose: 20 mg Documented by: Clopidogrel Bisulfate (Plavix) 75 mg PO DAILY [facility] Last Admin: 09/01/19 12:29 Dose: 75 mg Documented by: Dextrose (D50w Syringe) 0 gm IV X1 PRN; Protocol PRN Reason: Hypoglycemia Enoxaparin Sodium (Lovenox) 40 mg SC DAILY [facility] Last Admin: 09/01/19 12:22 Dose: 40 mg Documented by: Famotidine (Pepcid) 20 mg PO BID [facility] Last Admin: 09/01/19 21:11 Dose: 20 mg Documented by: Ferrous Sulfate (Ferrous Sulfate) 325 mg PO BIDCM@1200,1700 [facility] Last Admin: 09/01/19 17:21 Dose: Not Given Documented by: Folic Acid (Folic Acid) 1 mg PO DAILY@0800 [facility] Last Admin: 09/01/19 12:29 Dose: 1 mg Documented by: Glucagon () 1 mg IM .X1 PRN PRN Reason: Hypoglycemia Guaifenesin (Robitussin) 10 ml PO Q4H PRN PRN PRN Reason: COUGH Hydralazine HCl (Apresoline Iv) 10 mg IV Q4H PRN PRN PRN Reason: SBP > 160 Last Admin: 09/01/19 05:12 Dose: 10 mg Documented by: Dexmedetomidine HCl 400 mcg/ (Sodium Chloride) 100 mls @ 9.55 mls/hr CONT INF .[id number] [facility]; Protocol Last Titration: 09/02/19 06:00 Dose: 0.3 mcg/kg/hr, 5.7 mls/hr Documented by: Lorazepam (Ativan) 2 mg IV Q2H PRN PRN; Protocol PRN Reason: CIWA score > 8 but <15 Last Admin: 09/01/19 22:21 Dose: 2 mg Documented by: Lorazepam (Ativan) 2 mg IV UD PRN; Protocol PRN Reason: CIWA score >/=15. Lorazepam (Ativan) 2 mg PO Q2H PRN PRN; Protocol PRN Reason: CIWA score > 8 but <15 Last Admin: 09/01/19 20:02 Dose: 2 mg Documented by: Lorazepam (Ativan) 2 mg PO UD PRN; Protocol PRN Reason: CIWA score >/=15. Magnesium Hydroxide (Milk Of Magnesia) 30 ml PO DAILY PRN PRN PRN Reason: Constipation [facility]Ox 400) [facility] Last Admin: 09/01/19 17:21 Dose: 400 mg Documented by: Metoprolol Tartrate (Lopressor (Beta Olga)) 5 mg IV Q6H PRN PRN PRN Reason: SBP > 160, hold for HR < 60 Metoprolol Tartrate (Lopressor (Beta Olga)) 100 mg PO BID [facility] Last Admin: 09/01/19 21:11 Dose: 100 mg Documented by: Multivitamins/Minerals (Multivitamin With Minerals (Bkc)) [facility] Last Admin: 09/01/19 12:27 Dose: 1 tablet Documented by: Nicotine (Nicoderm Cq (Pbkc)) 21 mg TRANSDERM. DAILY [facility] Last Admin: 09/01/19 11:07 Dose: 21 mg Documented by: Nitroglycerin (Nitrostat) 0.4 mg SUBLINGUAL Q5M PRN PRN Reason: CARDIAC/CHEST PAIN Ondansetron HCl (Zofran) 4 mg IV Q8H PRN PRN PRN Reason: NAUSEA/VOMITING Oxycodone HCl (Oxyir) 5 mg PO Q4H PRN PRN PRN Reason: Pain Score 4-10/10 Last Admin: 09/01/19 20:03 Dose: 5 mg Documented by: Potassium Chloride (K-Dur) [facility]q [facility] Last Admin: 09/01/19 12:27 Dose: 20 meq Documented by: Promethazine HCl (Phenergan) 25 mg IM Q6H PRN PRN PRN Reason: Breakthrough Nausea/Vomiting Sodium Chloride () 10 - 40 ml IV UD PRN PRN Reason: SALINE FLUSH Last Admin: 09/01/19 23:23 Dose: 10 ml Documented by: Thiamine HCl (Vitamin B1) [facility] Last Admin: 09/01/19 12:29 Dose: 100 mg Documented by: Throat Lozenges (Cepacol Sore Throat Lozenge) 1 lozenge MUCOUS MEM Q2H PRN PRN PRN Reason: SORE THROAT STROKE Vital Signs/Narrative: Vital Signs Temp Pulse Resp BP Pulse Ox 09/02/19 06:00 92 19 H 129/72 H 93 09/02/19 05:00 82 13 150/78 H 94 09/02/19 04:00 98.9 F 81 15 164/78 H 96 Medical Necessity - Tobacco Use Smoking Status: Current every day smoker Assessment/Plan All Active Problems Septic shock (Acute) Gastroenteritis (Acute) Acute renal failure (Acute) Lactic acidosis (Acute) Gastroenteritis (Acute) Angioedema (Acute) Hyponatremia (Resolved) Elevated troponin (Resolved) COPD exacerbation (Resolved) Debility (Acute) Metabolic encephalopathy (Acute) Thrombocytopenia (Resolved) Pneumonia (Resolved) Neutropenia (Resolved) Hypokalemia (Resolved) Diarrhea (Resolved) GI bleed (Resolved) Hypomagnesemia (Resolved) Hepatitis C (Ruled-out) The patient is a 58 year old M with her history sent in for essential hypertension who was brought to the emergency department by the squad. Patient apparently woke up in the morning when he noticed significant tongue swelling with difficulty swallowing and hoarse voice. He did call the squad patient was given Benadryl in route to the hospital. In the emergency department patient was found to have with airway obstruction. Stat airway team was called patient was taken to the emergency department for emergency intubation in the OR 1. Acute hypoxic respiratory failure ?Secondary to YOSEF inhibitor induced angioedema with upper airway obstruction. Patient was taken to the OR where he underwent emergency intubation and subsequently transferred to the intensive care unit. Patient left on the vent consult placed to Dr. Thomas with intensive care. Patient also placed on Solu-Medrol as well as Pepcid and Benadryl as needed ?08/31/2019: Patient remains on the vent. Case was discussed with vice president lending plan is to observe patient an additional day on the vent. Did continue with Pepcid Solu-Medrol as well as Benadryl as needed -09/01/2019 patient successfully weaned off the vent this a.m. ?09/02/2019 patient angioedema resolved 2. Acute alcohol withdrawal ?Patient has history of chronic alcohol dependence had been managed with Precedex was on the vent which was continued. Currently on Ativan based on CIWA score do plan to switch to Librium 3. Dyslipidemia ?patient is on atorvastatin at home 4. Essential hypertension ?Patient is on both YOSEF inhibitors, amlodipine as well as beta-blockers YOSEF inhibitors discontinued ?08/31/2019; blood pressure has remained stable 5. Hyponatremia -Has some chronicity to his hyponatremia sodium levels on admission 132 6. COPD ?Currently not in exacerbation 7. Tobacco dependence -counseled on cessation, offered nicotine patch for tobacco cravings 8 Carotid artery disease - with history of right carotid endarterectomy 9. Chronic congestive heart failure -with preserved ejection fraction 10. History of obstructive sleep apnea - with history of noncompliance with CPAP therapy 11. History of esophageal varices ?Patient on beta-blockers 12. Depression with anxiety -Per history 10. DVT prophylaxis ?Lovenox Inpatient E&M: 47067 Subs Hosp L2
[2019-09-02] MEDS: LORazepam 1 MG Tablet 2 MG PO (07:48)
[2019-09-02] MEDS: busPIRone 5 MG Tablet 20 MG PO (07:49)
[2019-09-02] MEDS: Famotidine 20 MG Tablet PO (07:50)
[2019-09-02] MEDS: Enoxaparin 40 MG/0.4 ML Syringe SC (07:50)
[2019-09-02] MEDS: Clopidogrel Bisulfate 75 MG Tablet PO (07:50)
[2019-09-02] MEDS: Metoprolol Tartrate 100 MG Tablet PO (07:51)
[2019-09-02] MEDS: Citalopram 20 MG Tablet PO (07:52)
[2019-09-02] MEDS: Folic Acid 1 MG Tablet PO (07:52)
[2019-09-02] MEDS: Magnesium Oxide 400 MG Tablet PO ×2 (07:52→15:34)
[2019-09-02] MEDS: Thiamine Hydrochloride 100 MG Tablet PO (07:53)
[2019-09-02] MEDS: amLODIPine 5 MG Tablet PO (07:53)
[2019-09-02] MEDS: Multivitamins,Ther W-Minerals Tablet 1 TABLET PO (07:54)
[2019-09-02] MEDS: Ferrous Sulfate 325 MG Tablet PO ×2 (07:54→15:34)
[2019-09-02] MEDS: buPROPion (XL) 150 MG TABLET.XL PO (07:55)
[2019-09-02] MEDS: Phenobarbital 32.4 MG Tablet 97.2 MG PO (15:30)
[2019-09-02] MEDS: Gabapentin 300 MG Capsule PO (15:32)
--- NOTE | 2019-09-02 15:56 | NURSING ---
back to room with RN as pt stating wants to leave AMA. attempted to talk with patient regarding plan of care, pt refused physician be called about medication states you guys have been great, I just want to go Pt informed may return to ER if feels necessary. Primary RN at bedside, pt signed AMA forms and physician notified.
== END 2019-09-02 16:07 | disposition home or self-care (01) | DRG 915 ==
LOC: ED 11:21 → SDC 11:27 → ICU 12:19 → MS3 09-02 13:37
PROVIDERS: Anesthesiology; Family Medicine; Otolaryngology; Admitting Provider Internal Medicine; Emergency Provider Emergency Medicine; Visit Provider Internal Medicine
DX: T78.3XXA Angioneurotic edema, initial encounter (principal); J96.01 Acute respiratory failure with hypoxia; E87.1 Hypo-osmolality and hyponatremia; J93.82 Other air leak; F10.239 Alcohol dependence with withdrawal, unspecified; I85.00 Esophageal varices without bleeding; I11.0 Hypertensive heart disease with heart failure; D64.9 Anemia, unspecified; K21.9 Gastro-esophageal reflux disease without esophagitis; K44.9 Diaphragmatic hernia without obstruction or gangrene; E78.5 Hyperlipidemia, unspecified; E61.1 Iron deficiency; I25.10 Atherosclerotic heart disease of native coronary artery without angina pectoris; K76.9 Liver disease, unspecified; J44.9 Chronic obstructive pulmonary disease, unspecified; F41.8 Other specified anxiety disorders; G47.33 Obstructive sleep apnea (adult) (pediatric); I50.9 Heart failure, unspecified; T46.4X5A Adverse effect of angiotensin-converting-enzyme inhibitors, initial encounter; Z91.19 Patient's noncompliance with other medical treatment and regimen; I34.0 Nonrheumatic mitral (valve) insufficiency; I27.20 Pulmonary hypertension, unspecified; I65.23 Occlusion and stenosis of bilateral carotid arteries; Y90.9 Presence of alcohol in blood, level not specified; F17.200 Nicotine dependence, unspecified, uncomplicated; Z86.73 Personal history of transient ischemic attack (TIA), and cerebral infarction without residual deficits; Z79.02 Long term (current) use of antithrombotics/antiplatelets; Z79.51 Long term (current) use of inhaled steroids; Z82.49 Family history of ischemic heart disease and other diseases of the circulatory system; Z87.19 Personal history of other diseases of the digestive system; Z81.1 Family history of alcohol abuse and dependence
CPT/HCPCS: 31720; 36600; 71045; 74018; 80048; 80053; 82550; 82803; 83735; 84100; 84478; 85025; 87070; 87077; 87186; 87205; 94002; 94003; 94640; 94660; 97116; 97162; 97166; 97530; 97535; 99285; 99406; A4216

== ENCOUNTER 2019-09-05 13:04 | Emergency (ER) | payer MEDICARE, OTHER, MEDICAID, SELFPAY ==
[2019-08-30 12:31] VITALS: BMI 27.6
[2019-09-05 13:06] VITALS: BP 169/73; PULSE 87; RESP 18; TEMP 36.8; O2SAT 98; BMI 26.9
--- NOTE | 2019-09-05 13:22 | RAD_ITS ---
STUDY: X-RAY - LEFT RADIUS AND ULNA REASON FOR EXAM: Male, 58 years old. Fell 2 days ago and bruising of the entire arm. TECHNIQUE: 2 view(s) of the forearm. COMPARISON: None. FINDINGS: There is no demonstrated soft tissue swelling. Normal visualized radius. Normal visualized ulna. RAD/Forearm 2 Views IMPRESSION: Normal x-ray examination of the left radius and ulna. Electronically Signed: Mahad Diaz MD at 15:26 EDT , Service support ,
--- NOTE | 2019-09-05 13:22 | RAD_ITS ---
STUDY: X-RAY - RIGHT RADIUS AND ULNA REASON FOR EXAM: Male, 58 years old. FELL 2 DAYS AGO -- BRUISING ENTIRE ARM TECHNIQUE: 2 view(s) of the forearm. COMPARISON: None. FINDINGS: There is no demonstrated soft tissue swelling. Normal visualized radius. Normal visualized ulna. RAD/Forearm 2 Views IMPRESSION: Normal x-ray examination of the radius and ulna. Electronically Signed: Gerard Klein DO at 14:53 EDT Tel [phone], Service support ,
--- NOTE | 2019-09-05 13:23 | RAD_ITS ---
STUDY: X-RAY - PELVIS REASON FOR EXAM: Male, 58 years old. FELL 2 DAYS AGO -- PAIN TECHNIQUE: One view of the pelvis was obtained. COMPARISON: None. FINDINGS: There is a mild ileus pattern. Normal visualized soft tissue structures. Normal bilateral iliac wings, sacroiliac joints and visualized sacrum. Normal visualized bilateral superior and inferior pubic rami. Normal pubic symphysis. Normal ischial tuberosities. Normal visualized right femoral head. Normal right acetabulum. Normal right hip joint. Normal visualized left femoral head. Normal left acetabulum. Normal left hip joint. RAD/Pelvis 1 or 2 Views IMPRESSION: Normal x-ray examination of the pelvis. Electronically Signed: Gerard Klein DO at 15:13 EDT Tel [phone], Service support ,
--- NOTE | 2019-09-05 13:24 | ED.DCSUM_ITS ---
History of Present Illness Chief Complaint: Fall Informant: Patient Onset: Days Context: Gradual Onset Current Severity: Mild Maximum Severity: Mild Narrative: Patient presents after evaluation for fall. Patient was recently discharged from the hospital. He states as he was going back into his apartment building he lost his balance while trying to unlock the door. He stumbled backwards maryan ing a pillar and then fell. EMS did evaluate the patient but he refused transport. He presents secondary to continued pain. He is complaining of pain and bruising to bilateral forearms and to the hips. He denies head or neck pain. - Past Medical History (1) Alcohol abuse Status: Chronic (2) Anemia Status: Chronic (3) Anxiety Status: Chronic (4) COPD (chronic obstructive pulmonary disease) Status: Chronic (5) Carotid stenosis Status: Chronic Comment: has had a R CEA (6) Depression Status: Chronic (7) Esophageal varices determined by endoscopy Status: Chronic Comment: stage II varices on EGD 04/28/[address] Abdullahi. Esophageal varices due to chronic alcohol dependence and chronic liver disease. (8) GERD (gastroesophageal reflux disease) Status: Chronic (9) Grade III diastolic dysfunction Status: Chronic (10) HTN (hypertension) Status: Chronic (11) Hiatal hernia Status: Chronic Comment: small (12) Hyperlipemia Status: Chronic (13) Pulmonary hypertension Status: Chronic Comment: Moderate with a RV systolic estimated at 60 (14) Stroke Status: Chronic Past Medical History - Allergies and Home Meds Allergies/Adverse Reactions: Allergies lisinopril Allergy (Severe, Verified 08/31/19 09:33) Angioedema Primary Care Physician: [facility],[place] [Primary Care Provider] - Prior records reviewed: Yes Surgical History: - - surgery on left foot due to accident, carotid endarterectemy on the right side. Lives: Alone Smoking Status: Current every day smoker - Family History Maternal Family History: Reports: Hypertension, No pertinent history - denies cancer, cad, DM, stroke, - - Mother had a history of alcoholism but quit drinking at the age of 55 Paternal Family History: Reports: - - alcoholism, of suicide Review of Systems General: Denies: Chills, Fever Eyes: Denies: Visual changes - bilaterally ENT: Denies: Bilateral ear pain Cardiovascular: Denies: Chest pain Respiratory: Denies: Dyspnea, Cough Gastrointestinal: Denies: Abdominal pain, Nausea, Vomiting, Diarrhea Genitourinary: Denies: Dysuria Musculoskeletal: Reports: Extremity Pain Skin: Reports: Abrasions Neurological: Denies: Headache Hematologic: Denies: Easy bruising, Easy bleeding Allergy: Denies: Uticaria Physical Exam Vital Signs/Narrative: Vital Signs Temp Pulse Resp BP Pulse Ox 09/05/19 13:06 98.2 F 87 18 169/73 H 98 Inital Vital Signs reviewed: Yes General: Well nourished, Well developed Head: - - Scabbed abrasion to the right forehead. Eyes: Perrl, EOMI ENT: Moist mucous membranes Neck: Supple, - - No C-spine tenderness. Cardiovascular: Regular rate, Regular rhythm Respiratory: No distress, CTA bilaterally Abdomen: Soft, Nontender Back: Nontender Extremities: - - Ecchymosis to the proximal and distal right forearm. No bony tenderness. Good range of motion. Ecchymosis noted to the left forearm as well. Patient has large area of ecchymosis along the right greater trochanter. Mild tenderness is noted to the left greater trochanter. Neurological: Alert, Oriented x3, Normal Strength, Normal Sensation Psychological: Normal affect Diagnostic/Tx/Re-eval Bilateral forearm x-rays and pelvis x-ray are reviewed by myself with no evidence of obvious fracture. - Medical Decision Making Patient is given Tylenol for pain. Right proximal forearm is wrapped in an Mayank wrap. I discussed with him that I do not appreciate any acute abnormalities on his x-rays. If radiology reads his x-rays otherwise I will call him and let him know. He is comfortable with this plan. ED Disposition - Plan for ED Patient: Disposition: Home or Assisted Living Diagnosis: Fall, Forearm contusion, Contusion, hip Instructions: ED SOFT TISSUE CONTUSION, ED Mechanical Fall [facility]errals: [facility] [Primary Care Provider] - 1 Week
[2019-09-05 14:22] VITALS: RESP 16
[2019-09-05] MEDS: Acetaminophen 325 MG Tablet 650 MG PO (14:22)
== END 2019-09-05 14:25 | disposition home or self-care (01) ==
PROVIDERS: Emergency Provider Emergency Medicine
DX: S50.12XA Contusion of left forearm, initial encounter (principal); S50.11XA Contusion of right forearm, initial encounter; W01.0XXA Fall on same level from slipping, tripping and stumbling without subsequent striking against object, initial encounter; S70.02XA Contusion of left hip, initial encounter; S70.01XA Contusion of right hip, initial encounter; F17.200 Nicotine dependence, unspecified, uncomplicated; E78.5 Hyperlipidemia, unspecified; Z86.73 Personal history of transient ischemic attack (TIA), and cerebral infarction without residual deficits; I27.20 Pulmonary hypertension, unspecified; F32.9 Major depressive disorder, single episode, unspecified; F41.9 Anxiety disorder, unspecified; I10 Essential (primary) hypertension; J44.9 Chronic obstructive pulmonary disease, unspecified; K21.9 Gastro-esophageal reflux disease without esophagitis; K44.9 Diaphragmatic hernia without obstruction or gangrene; Z82.49 Family history of ischemic heart disease and other diseases of the circulatory system; Z88.8 Allergy status to other drugs, medicaments and biological substances; F10.20 Alcohol dependence, uncomplicated; Y90.9 Presence of alcohol in blood, level not specified
CPT/HCPCS: 72170; 73090; 99282

== ENCOUNTER 2019-09-19 16:07 | Emergency (ER) | payer MEDICARE, OTHER, MEDICAID, SELFPAY ==
[2019-09-19 16:08] VITALS: BP 199/105; PULSE 89; RESP 16; TEMP 36.9; O2SAT 97; BMI 25.8
--- NOTE | 2019-09-19 16:26 | ED.DCSUM_ITS ---
- ER Visit Summary Date of Service: 09/19/19 Chief Complaint: [Rash] History of Present Illness: The patient is a 59 M [presents the emergency department with a rash that started 2 days ago when he put some Dove cream on his face. Patient states that for several months has had dry skin. The red burning skin on his face did not start until he use the Dove cream. Denies any new soaps or detergents. He denies any new medications. Patient has never had an issue like this before. He does have history of prior stroke, COPD, hypertension, metabolic encephalopathy, pulmonary hypertension, anxiety, obstructive sleep apnea, pancreatitis. He denies recent illness.] No exposures to poison sona or poison oak. Physical Examination: [HEENT-PERRLA, EOMI. Cranial nerves II through XII grossly intact. TMs clear. Mucous membranes moist. No adenopathy. Cardiovascular-regular rate and rhythm without murmur or ectopy Lungs-clear to auscultation, chest wall stable without crepitus or subcu emphysema Abdomen-normoactive bowel sounds, soft, nontender, no rebound or rigidity, no pe ritoneal signs. Skin exam-patient does have diffuse erythema involving the face as well as the neck. Patient has a patchy erythematous rash also on the upper back and chest. No significant involvement of the lower extremities. No vesicles or petechiae noted. Extremities-intact ?4, normal range of motion, normal pulses, atraumatic] Test Results: [None indicated] Emergency Department Course and Treatment: [Patient was started on prednisone. ] Treatment Plan: [Patient will be given referral to dermatology. Patient will be treated with prednisone and will get a few [place] for severe pain.] Disposition: [Discharged home in stable condition] Impression: [Dermatitis-suspect contact] This note was generated with [employer] dictation software. It may contain incorrect words, spelling, and punctuation that were not noted in review of the chart prior to signing ED Disposition - Plan for ED Patient: [facility] [[facility] Provider] -
--- NOTE | 2019-09-19 16:28 | DCINST.ED_ITS ---
ED Disposition - Plan for ED Patient: Instructions: ED CHEMICAL DERMATITIS Prescriptions: Prednisone [Deltasone] 20 mg PO BID #10 tab Transmission Status: Pending to [facility] Hydrocodone Bitart/Apap 5-325 [[place] 5MG-325MG] 1 tablet PO Q4H PRN PRN 2 Days #10 tablet PRN Reason: Pain Transmission Status: Sent to [facility] Referrals: [facility] [Primary Care Provider] - Giancarlo Sarah MD [STAFF PHYSICIAN] - 3-5 Days Additional Instructions: Stop using any creams to rash
[2019-09-19 16:30] VITALS: RESP 16
[2019-09-19] MEDS: predniSONE 20 MG Tablet 40 MG PO (16:41)
== END 2019-09-19 16:51 | disposition home or self-care (01) ==
LOC: ED 16:48
PROVIDERS: Emergency Provider Emergency Medicine
DX: L30.9 Dermatitis, unspecified (principal); F17.200 Nicotine dependence, unspecified, uncomplicated; J44.9 Chronic obstructive pulmonary disease, unspecified; I10 Essential (primary) hypertension; F41.9 Anxiety disorder, unspecified; Z86.73 Personal history of transient ischemic attack (TIA), and cerebral infarction without residual deficits
CPT/HCPCS: 99283

== ENCOUNTER 2019-10-07 16:17 | Emergency (ER) | payer OTHER, MEDICARE, SELFPAY ==
[2019-10-07 16:17] VITALS: BP 191/97; PULSE 88; RESP 18; TEMP 36.6; O2SAT 98; BMI 26.6
--- NOTE | 2019-10-07 16:50 | RAD_ITS ---
STUDY: X-RAY - RIGHT ELBOW REASON FOR EXAM: Male, 59 years old. Rt elbow pain since injury 10 days ago. Generalized pain with movement. Numbness in Rt hand. TECHNIQUE: 3 view(s) of the elbow. COMPARISON: None. FINDINGS: Normal visualized humerus, radius and ulna. Normal radiocapitellar and ulnotrochlear articulations. The soft tissue structures are unremarkable. RAD/Elbow min 3 Views IMPRESSION: Normal x-ray examination of the elbow. Electronically Signed: Avtar Bello, at 17:51 EDT Tel , Service support ,
[2019-10-07] MEDS: HYDROcodone Bitartrate/Apap 5/325 Tablet PO (17:07)
--- NOTE | 2019-10-07 17:56 | ED.DCSUM_ITS ---
- ER Visit Summary Date of Service: 10/07/19 Chief Complaint: Right elbow pain History of Present Illness: The patient is a 59 M who goes to the [facility]. He is right-hand dominant. He reports that 10 days ago he was vacuuming and had a pop in his right elbow. States his pain began then. Is a dull pain is gradually gotten worse. Is 10 out of 10 worsening to 10 currently. Is worsened by pronation and supination. Is relieved by rest. Is not taken anything for this. Reports that he has paresthesias in his hand, but these are chronic and unchanged. Patient denies any other trauma. No fall or MVA. Does report that he has pain in his right trapezius that is 4-10 in severity. He denies any neck pain. Review of systems: General: No fever, chills, cold sweats. Cardiovascular: No chest pain, palpitations. Respiratory: No cough, shortness of breath, dyspnea on exertion. Gastrointestinal: No abdominal pain, nausea, vomiting, diarrhea, melena, or hematochezia. Genitourinary: No dysuria, frequency, hematuria. Skin: No rash. Neuro: No headache, numbness, weakness. Physical Examination: Vitals: Stable. Afebrile. General: Well-nourished and well-developed. Head: Normocephalic atraumatic. Neck: Supple, no lymphadenopathy. No JVD. Nontender. No vertebral tenderness. He does have mild tenderness palpation the right trapezius muscle. Cardiovascular: Regular rate and rhythm. No murmurs. Respiratory: No respiratory distress. Clear to auscultation bilaterally. Abdominal: Soft, nontender, nondistended, normal bowel sounds. No guarding, rebound, or peritoneal signs. Back: Nontender. Extremities: Moderate tenderness palpation that is diffuse over his entire elbow. This is not localized to the radial head. Is worsened with pronation and supination especially against resistance. He has a 2+ radial pulse. He has less than 2-second capillary refill. Skin: Normal color, no rash. Neurologic: Alert and oriented ?3. Cranial nerves II through XII are intact. Normal strength and sensation. Psych: Normal affect. Test Results: Clinical Impression(s) from Imaging Studies Elbow X-Ray 10/07/19 16:50 IMPRESSION: Normal x-ray examination of the elbow. Electronically Signed: Avtar Bello at 17:51 EDT Tel , Service support , Emergency Department Course and Treatment: Patient was treated the dose of [place]. He is resting comfortably. Treatment Plan: Patient will be discharged in a sling with [place] for pain. Instructed to follow-up with Dr. Brent Sheikh or the [facility] in 1 week if not improving. I did discuss to him that he may have damaged the tendons in his elbow. Return to the emergency department for any worsening symptoms. Disposition: To home in improved and stable condition. Impression: 1. Right elbow pain, acute. This note was generated with [employer] dictation software. It may contain incorrect words, spelling, and punctuation that were not noted in review of the chart prior to signing ED Disposition - Plan for ED Patient: Disposition: Home or Assisted Living Instructions: ED ELBOW SPRAIN Prescriptions: Hydrocodone Bitart/Apap 5-325 [[place] 5MG-325MG] 1 tab PO Q4H PRN PRN 2 Days #10 tab PRN Reason: Pain Prescription Printed Referrals: Brent Sheikh MD [STAFF PHYSICIAN] - 1 Week if not improving [facility] [Primary Care Provider] - 1 Week if not improving
[2019-10-07 18:26] VITALS: BP 149/103; PULSE 72; RESP 16; O2SAT 99
--- NOTE | 2019-10-07 18:27 | ED.RN ---
PT'S BP ELEVATED, PT STATES HE IS DUE FOR BP MEDS WHEN HE GETS HOME. REVIEWED D/C INSTRUCTIONS, FOLLOW UP CARE, PRESCRIPTION, AND S/S THAT WOULD WARRANT A RETURN TO THE ED WITH PT. PT VERBALIZED AN UNDERSTANDING AND DENIES FURTHER QUESTIONS FOR THIS RN. PT SKIN P/W/D, RESP EVEN AND UNLABORED, PT A&O X 3, NO DISTRESS NOTED. PT AMBULATED OUT OF ED, GAIT STEADY.
== END 2019-10-07 18:28 | disposition home or self-care (01) ==
LOC: ED 17:14
PROVIDERS: Emergency Provider Emergency Medicine
DX: M25.521 Pain in right elbow (principal); J44.9 Chronic obstructive pulmonary disease, unspecified; I10 Essential (primary) hypertension; I69.998 Other sequelae following unspecified cerebrovascular disease; R20.2 Paresthesia of skin; R20.0 Anesthesia of skin; Z72.0 Tobacco use; Z79.899 Other long term (current) drug therapy
CPT/HCPCS: 73080; 99283

== ENCOUNTER 2019-11-02 23:02 | Inpatient (IN) | payer OTHER, MEDICARE, MEDICAID, SELFPAY ==
[2019-11-02 23:03] VITALS: BP 93/47; PULSE 79; RESP 22; TEMP 36.8; O2SAT 97; BMI 31.1
--- NOTE | 2019-11-02 23:35 | RAD_ITS ---
STUDY: X-RAY CHEST REASON FOR EXAM: Male, 59 years old. Increased sob -- hx of copd TECHNIQUE: Single frontal view of the chest. COMPARISON: September 01, 2019 FINDINGS: EKG leads artifacts. There is a stent projecting over the right upper mediastinum. Removal of endotracheal tube and nasogastric tubes. Bilateral atelectasis. There is no pneumothorax or pleural effusion. Chronic lung changes. No focal consolidation. There is mild cardiomegaly. Normal mediastinum and emma. Normal visualized pulmonary arteries. Normal visualized aortic arch and descending thoracic aorta. There are diffuse degenerative changes of the visualized thoracic spine. Mild scoliotic curvature. Normal visualized ribs, clavicles, and shoulders. There is no demonstrated abnormality of the visualized soft tissue structures of the upper abdomen. RAD/Chest 1 View (Portable) IMPRESSION: Mild cardiomegaly. There is bilateral basilar atelectasis. Similar to prior exam. No focal consolidation is seen. Electronically Signed: Andrey Roa, at 0:10 EDT Tel , Service support ,
--- NOTE | 2019-11-02 23:35 | EKG12_ITS ---
Test Reason : DYSRHYTHMIA Blood Pressure : / mmHG Vent. Rate : 076 BPM Atrial Rate : 076 BPM P-R Int : 148 ms QRS Dur : 090 ms QT Int : 450 ms P-R-T Axes : 043 091 044 degrees QTc Int : 506 ms Normal sinus rhythm Rightward axis Prolonged QT Abnormal ECG Confirmed by GONZALEZ RAINEY ([id number]), technical writer and editor RAJ ANN ([id number] on 11/08/2019 12:14:13 PM Referred By: KATEY Confirmed By:GONZALEZ RAINEY
--- NOTE | 2019-11-02 23:37 | ED.VIS.DYS ---
History of Present Illness Chief Complaint: Shortness of Breath Informant: Patient, EMS Onset: Weeks - 1 Activity at onset: Exertion Timing: Intermittent Quality: Dyspnea on exertion Current Severity: Mild Maximum Severity: Severe Worsened by: Exertion Relieved by: Rest Associated Symptoms: Cough - chronic, no worse. Negative for: Clear sputum, Fever, Green sputum, White sputum Chest Pain: Intermittent - when dyspneic; resolves w/ dyspnea when resting, Tightness Narrative: Patient stands and walks at home, he states he goes about 4 steps before he has to rest due to dyspnea and lightheadedness as well. No syncope. He is getting chest tightness along with the dyspnea. He has COPD and feels like some of this may be related but also feels like he may be dehydrated although he does not have a specific reason to be other than the recent heat. He has remained inside, lives in an apartment but does not have air conditioning. For these reasons his COPD has seemed worse. His cough is no worse, no fevers, no recent travel out of the area, no contact with anyone with COVID-19 that he knows of, he presents during the coronavirus national emergency declaration. Chronic leg swelling that is no worse than usual. No orthopnea. No GI symptoms. - Past Medical History (1) Anemia Status: Chronic (2) Anxiety Status: Chronic (3) COPD (chronic obstructive pulmonary disease) Status: Chronic (4) Carotid stenosis Status: Chronic Comment: has had a R CEA (5) Colon, diverticulosis Status: Chronic (6) Depression Status: Chronic (7) Esophageal varices determined by endoscopy Status: Chronic Comment: stage II varices on EGD 04/28/[address] Abdullahi. Esophageal varices due to chronic alcohol dependence and chronic liver disease. (8) GERD (gastroesophageal reflux disease) Status: Chronic (9) Grade III diastolic dysfunction Status: Chronic (10) HTN (hypertension) Status: Chronic (11) Hiatal hernia Status: Chronic Comment: small (12) Iron deficiency Status: Chronic (13) Mitral regurgitation Status: Chronic (14) RENETTA (obstructive sleep apnea) Status: Chronic Comment: non-compliant with PAP (15) Pulmonary hypertension Status: Chronic Comment: Moderate with a RV systolic estimated at 60 (16) Stroke Status: Chronic Past Medical History - Allergies and Home Meds Allergies/Adverse Reactions: Allergies lisinopril Allergy (Severe, Verified 11/02/19 23:11) Angioedema bee venom protein (honey bee) Allergy (Verified 11/02/19 23:11) Swelling Primary Care Physician: [facility],[place] [Primary Care Provider] - Surgical History: - - surgery on left foot due to accident, carotid endarterectemy on the right side. Lives: Alone Smoking Status: Current every day smoker Drugs: None - Family History Maternal Family History: Reports: Hypertension, No pertinent history - denies cancer, cad, DM, stroke, - - Mother had a history of alcoholism but quit drinking at the age of 55 Paternal Family History: Reports: - - alcoholism, of suicide Review of Systems General: Reports: Malaise, - - Lightheadedness with standing/exertion. Denies: Chills, Fever, Sweats Eyes: Denies: Visual changes - bilaterally, Diplopia ENT: Denies: Bilateral ear pain, Rhinorrhea, Sore throat Cardiovascular: Reports: Chest pain. Denies: Palpitations Respiratory: Reports: Dyspnea, Cough, Dyspnea on exertion. Denies: Sputum, Orthopnea Gastrointestinal: Denies: Abdominal pain, Nausea, Vomiting, Diarrhea, Melena, Hematochezia Genitourinary: Denies: Dysuria, Hematuria, Frequency Musculoskeletal: Reports: Swelling. Denies: Neck pain, Back pain, Extremity Pain Skin: Denies: Rash, Wounds Neurological: Denies: Headache, Weakness, Numbness Endocrine: Denies: Polyuria, Polydipsia Physical Exam Vital Signs/Narrative: Vital Signs Temp Pulse Resp BP Pulse Ox 11/02/19 23:03 98.3 F 79 22 H 93/47 L 97 Inital Vital Signs reviewed: Yes General: Well nourished, Well developed, No Acute Distress Head: Normocephalic, Atraumatic Eyes: Perrl, EOMI ENT: Moist mucous membranes, No rhinorrhea, - - Posterior oropharynx clear Neck: Supple, Nontender, No lymphadenopathy Cardiovascular: Regular rate, Regular rhythm, No murmurs Respiratory: No distress, CTA bilaterally, Chest nontender, Diminished - Diffusely, symmetrically Abdomen: Soft, Nontender, Nondistended, Normal bowel sounds Back: Nontender, Normal Inspection Extremities: Nontender, Edema - 1+ bilateral lower extremities pretibial. Negative for: Calf Tenderness Skin: Normal color, No rash, No Trauma Neurological: Alert, Oriented x3, Cranial nerves II-XII grossly intact, Normal Strength, Normal Sensation Psychological: Normal affect, Normal Mood Diagnostic/Tx/Re-eval Impressions Chest X-Ray 11/02/19 23:35 IMPRESSION: Mild cardiomegaly. There is bilateral basilar atelectasis. Similar to prior exam. No focal consolidation is seen. Electronically Signed: Andrey Roa, at 0:10 EDT Tel , Service support , 11/02/19 23:35 Chest 1 View (Portable) [RAD] Stat 11/03/19 00:40 Stool Stool Occult Blood (OLAYINKA) - Final Laboratory Results 11/02/19 11/02/19 11/02/19 23:40 23:40 23:40 WBC 5.5 RBC 2.51 L Hgb 5.8 L* Hct 19.4 L MCV 77.3 L MCH 23.1 L MCHC 29.9 L RDW Std Deviation 44.4 H RDW Coeff of Donnie 15.8 H Plt Count 134 L MPV 9.8 Immature Gran % (Auto) 0.900 Neut % (Auto) 67.3 Lymph % (Auto) 16.9 L Coffee % (Auto) 12.6 H Eos % (Auto) 1.8 Baso % (Auto) 0.5 Absolute Neuts (auto) 3.7 Absolute Lymphs (auto) 0.93 Nucleated RBC % 0.4 Differential Comment SCANNED Diff Path Review May foll Polychromasia 1+ Hypochromasia 2+ Microcytosis 2+ Ovalocytes RARE Sodium 125 L Potassium 4.1 Chloride 97 L Carbon Dioxide 18.0 L Anion Gap 10 BUN 9 Creatinine 1.01 Estim Creat Clear Calc 73.63 Est GFR (MDRD) Af Amer 97 Est GFR (MDRD) Non-Af 80 BUN/Creatinine Ratio 8.9 L Glucose 87 Calcium 8.2 L Troponin I 0.017 B-Natriuretic Peptide 1772.4 H Crossmatch 11/03/19 00:40 WBC RBC Hgb Hct MCV MCH MCHC RDW Std Deviation RDW Coeff of Donnie Plt Count MPV Immature Gran % (Auto) Neut % (Auto) Lymph % (Auto) Coffee % (Auto) Eos % (Auto) Baso % (Auto) Absolute Neuts (auto) Absolute Lymphs (auto) Nucleated RBC % Differential Comment Diff Path Review Polychromasia Hypochromasia Microcytosis Ovalocytes Sodium Potassium Chloride Carbon Dioxide Anion Gap BUN Creatinine Estim Creat Clear Calc Est GFR (MDRD) Af Amer Est GFR (MDRD) Non-Af BUN/Creatinine Ratio Glucose Calcium Troponin I B-Natriuretic Peptide Crossmatch See Detail - Rhythm Strip Rhythm Strip: Sinus Rhythm Rate: 75 Ectopy: None - EKG Initial EKG Interpretation: Sinus Rhythm, No Acute Injury Pattern Prior: Unchanged Treatment - Dyspnea: Albuterol, Steroid Repeat Evaluation: Improved - Medical Decision Making Chest x-ray shows nothing acute, with albuterol his COPD feels better and is relatively stable. However his hemoglobin is so low I think that is contributing to his symptoms more. He was consented for transfusion and we started a unit of packed red blood cells after also testing for Hemoccult stool since he said he had had some black stools after taking Pepto-Bismol, Hemoccult is negative. He has a history of iron deficiency anemia and his anemia today is microcytic which could be consistent with that. Plan is for admission further treatment. Of note, as I discussed with hospitalist, the patient has a history in his chart of esophageal varices. He has no symptoms of these bleeding or being the source of his anemia. He drinks quite a bit of alcohol and I suspect that is why he has varices and nonbleeding hemorrhoids. He states he does not get withdrawal symptoms in the morning when he does not drink, but he typically drinks 6-8 cans of beer per day because he enjoys it. He has never been diagnosed with cirrhosis. His Hemoccult is negative and his BUN is 9, arguing against any GI bleeding at this time. I was asked to discuss with surgery regarding the possibility of an EGD, which I do not believe is emergently indicated, or to otherwise transfer the patient. I discussed with Dr. Mcrae, who agreed that it was not indicated emergently but that he could do it as an outpatient, and the presence of esophageal varices would not prevent that. ED Disposition - Plan for ED Patient: Disposition: Acute Care Hospital [facility] Diagnosis: Symptomatic anemia, COPD exacerbation [facility] [[facility] Provider] -
[2019-11-02 23:47] VITALS: PULSE 80; RESP 20
[2019-11-02] MEDS: Albuterol 2.5 MG/3 ML VIAL.NEB. INHALATION (23:47)
[2019-11-02] MEDS: 0.9% Normal Saline 1,000 ML 150 ML IV (23:47)
[2019-11-02] MEDS: MethylPREDNISolone 125 MG/2 ML Vial IV (23:47)
[2019-11-03] VITALS (30 sets, daily range): BP systolic 120–195; BP diastolic 65–125; PULSE 68–106; RESP 16–22; TEMP 36.6–37.2; O2SAT 93–100; BMI 30.4
[2019-11-03 00:03] LABS: Absolute Lymphocyte Count 0.93 X10^3/uL (0.83-4.51); Absolute Neutrophil Count 3.7 X10^3/uL (2.0-7.7); Basophil# 0.03 X10^3/uL; Basophil% 0.5 % (0-1); Eosinophils% 1.8 % (0-5); Hematocrit 19.4 % (40-54); Lymphocyte # 0.93 X10^3/ul (4.0); Lymphocyte % 16.9 % (19-41); Mean Corp Hgb Conc 29.9 g/dL (32-36); Mean Corpuscular Hgb 23.1 pg (27.0-32.0); Mean Corpuscular Volume 77.3 fL (80-94); Mean Platelet Vol. 9.8 fl (6.2-12.0); Monocyte# 0.69 X10^3/uL; Monocyte% 12.6 % (0-10); NRBC Flagged by Analyzer 0.4 % (0-5); Neutrophil # 3.69 X10^3/uL (2.7-7.7); Neutrophil % 67.3 % (47-70); POSITIVE COUNT YES; Platelet Count 134 K/mm3 (150-450); RBC Distribution Width CV 15.8 % (11.6-14.6); RBC Distribution Width SD 44.4 fl (35.1-43.9); Red Blood Count 2.51 M/mm3 (4.6-6.2); White Blood Count 5.5 K/mm3 (4.4-11.0)
[2019-11-03 00:05] LABS: Differential Indicated SCAN CRITERIA MET
[2019-11-03 00:06] LABS: Hemoglobin 5.8 g/dL (13.0-16.5)
[2019-11-03 00:16] LABS: Anion Gap 10 (5-15); BUN 9 mg/dL (7-18); BUN/Creat Ratio 8.9 RATIO (10-20); Calcium,Total 8.2 mg/dL (8.5-10.1); Chloride 97 mmol/L (98-107); Creatinine, Serum 1.01 mg/dL (0.70-1.30); EST Glomerular Filtration Rate 80 mL/min (>60); Est Glom Filt Rate - Afr Amer 97 mL/min (>60); Estimated Creatinine Clearance 73.63 ml/min; Glucose 87 mg/dL (74-106); Potassium 4.1 mmol/L (3.5-5.1); Sodium Level 125 mmol/L (136-145)
[2019-11-03 00:24] LABS: BNP,B-Type NATRIURETIC PEPTIDE 1772.4 pg/mL (0-100)
[2019-11-03 00:49] LABS: Differential Comment SCANNED
[2019-11-03 00:50] LABS: Hypochromasia 2+
[2019-11-03 00:52] LABS: Microcytosis 2+
[2019-11-03 00:53] LABS: Polychromasia 1+
[2019-11-03 00:55] LABS: Ovalocyte RARE
--- NOTE | 2019-11-03 01:10 | ED.RN ---
ATTEMPTED TO CALL [facility] NO ANSWER AND UNABLE TO LEAVE MESSAGE AT THIS TIME
--- NOTE | 2019-11-03 01:28 | PCM.HP.STD ---
Problem List (1) Anemia Status: Acute (2) Symptomatic anemia Status: Acute (3) COPD exacerbation Status: Chronic (4) Acute renal failure Status: Inactive (5) Angioedema Status: Inactive (6) Debility Status: Inactive Comment: Debility Secondary to chronic alcoholism, recent PNA and acute exacerbation COPD with intubation (7) Gastroenteritis Status: Inactive (8) Gastroenteritis Status: Inactive (9) Lactic acidosis Status: Inactive (10) Metabolic encephalopathy Status: Inactive (11) Septic shock Status: Inactive (12) Alcohol abuse Status: Chronic (13) Anemia Status: Chronic Qualifiers: Anemia type: iron deficiency (14) Anxiety Status: Chronic (15) COPD (chronic obstructive pulmonary disease) Status: Chronic (16) Carotid stenosis Status: Chronic Qualifiers: Laterality: bilateral Qualified Code(s): I65.23 - Occlusion and stenosis of bilateral carotid arteries Comment: has had a R CEA (17) Colon, diverticulosis Status: Chronic (18) Colonic polyp Status: Chronic (19) Depression Status: Chronic (20) Esophageal varices determined by endoscopy Status: Chronic Comment: stage II varices on EGD 04/28/[address] Abdullahi. Esophageal varices due to chronic alcohol dependence and chronic liver disease. (21) GERD (gastroesophageal reflux disease) Status: Chronic (22) Grade III diastolic dysfunction Status: Chronic (23) HTN (hypertension) Status: Chronic (24) Hiatal hernia Status: Chronic Comment: small (25) Hyperlipemia Status: Chronic (26) Iron deficiency Status: Chronic (27) Mitral regurgitation Status: Chronic Qualifiers: Cardiac valve disease etiology: nonrheumatic Qualified Code(s): I34.0 - Nonrheumatic mitral (valve) insufficiency (28) Nicotine addiction Status: Chronic Qualifiers: Nicotine product type: cigarettes (29) RENETTA (obstructive sleep apnea) Status: Chronic Comment: non-compliant with PAP (30) Pancreatitis Status: Chronic Qualifiers: Pancreatitis type: alcohol induced (31) Pulmonary hypertension Status: Chronic Comment: Moderate with a RV systolic estimated at 60 (32) Stroke Status: Chronic Qualifiers: Laterality of affected vessel: right (33) COPD exacerbation Status: Inactive (34) Diarrhea Status: Inactive Qualifiers: Diarrhea type: unspecified type Qualified Code(s): R19.7 - Diarrhea, unspecified Comment: suspect due to stool softeners (35) Elevated troponin Status: Inactive Comment: Indeterminate, no serial enzymes were done (36) Hypokalemia Status: Inactive (37) Hyponatremia Status: Inactive (38) Neutropenia Status: Inactive (39) Pneumonia Status: Resolved Qualifiers: Pneumonia type: aspiration pneumonia Comment: MSSA and Serratia Marcesans - more likely than not due to aspiration (40) Thrombocytopenia Status: Chronic Comment: Suspect secondary to the toxic effects of EtOH on bone marrow History of Present Illness Date of Admission: 11/03/19 Chief Complaint: SOB The patient is a 59 year old M with a significant history of CVA; COPD; alcoholism: Varices and tobacco abuse who presents to the emergency department with 1 week history of shortness of breath. Shortness of breath is with mild exertion like taking short steps. Also he reports lightheadedness with standing up. He denies any wheezing. At emergency department his hemoglobin was 5.8. He reports that he has had black stools that he attributes to taking Pepto-Bismol. Reportedly he take Pepto-Bismol because of abdominal pain. He reports poor appetite. Past Medical History Past Medical History (Chronic Problems): Chronic Problems COPD exacerbation (Chronic) Thrombocytopenia (Chronic) Suspect secondary to the toxic effects of EtOH on bone marrow Iron deficiency (Chronic) Grade III diastolic dysfunction (Chronic) Pulmonary hypertension (Chronic) Moderate with a RV systolic estimated at 60 Mitral regurgitation (Chronic) Hiatal hernia (Chronic) small Esophageal varices determined by endoscopy (Chronic) stage II varices on EGD 04/28/[address] Abdullahi. Esophageal varices due to chronic alcohol dependence and chronic liver disease. Anxiety (Chronic) Anemia (Chronic) Pancreatitis (Chronic) Stroke (Chronic) Alcohol abuse (Chronic) Depression (Chronic) COPD (chronic obstructive pulmonary disease) (Chronic) Hyperlipemia (Chronic) GERD (gastroesophageal reflux disease) (Chronic) HTN (hypertension) (Chronic) Colonic polyp (Chronic) Colon, diverticulosis (Chronic) Nicotine addiction (Chronic) RENETTA (obstructive sleep apnea) (Chronic) non-compliant with PAP Carotid stenosis (Chronic) has had a R CEA Allergies lisinopril Allergy (Severe, Verified 11/02/19 23:11) Angioedema bee venom protein (honey bee) Allergy (Verified 11/02/19 23:11) Swelling Home Medications: Ambulatory Orders Medication Instructions Recorded Clopidogrel Bisulfate [Plavix] 75 mg PO DAILY 09/10/16 Folic Acid 1 mg PO DAILY@0800 09/10/16 Budesonide/Formoterol Fumarate 2 puff IH BID 04/25/19 [Symbicort 160-4.5 Mcg Inhaler] Cholecalciferol (VIT D3) [Vitamin 2,000 unit PO DAILY 04/25/19 D3] Metoprolol Tartrate [Lopressor 100 mg PO BID 05/25/19 (beta ran)] Acetaminophen [Tylenol Tablet] 650 mg PO Q6H PRN PRN tab 06/05/19 Amlodipine [Norvasc] 5 mg PO DAILY 06/05/19 Atorvastatin Calcium [Lipitor] 80 mg PO QHS 06/05/19 Albuterol Inhaler [Ventolin Hfa] 2 puff INHALATION Q4H PRN PRN #1 06/16/19 inhaler Ascorbic Acid [Vitamin C] 500 mg PO BIDCM #60 tab 06/16/19 Citalopram [Celexa] 20 mg PO DAILY #30 tab 06/16/19 Magnesium Oxide [Mag-Ox 400] 400 mg PO BIDCM #60 tab 06/16/19 Pantoprazole Sodium [Protonix] 20 mg PO BID tab 06/16/19 Thiamine Hydrochloride [Vitamin B1] 100 mg PO DAILYCM #30 tab 06/16/19 buPROPion XL [Wellbutrin Xl] 150 mg PO DAILY #30 tablet.xl 06/16/19 busPIRone [Buspar] 20 mg PO BID 11/03/19 Surgical History: - - surgery on left foot due to accident, carotid endarterectemy on the right side. Psychiatric History: Anxiety, Depression Lives: Alone Smoking Status: Current every day smoker Drugs: None - *Family History Maternal History Items: Hypertension, No pertinent history - denies cancer, cad, DM, stroke, - - Mother had a history of alcoholism but quit drinking at the age of 55 Paternal History Items: - - alcoholism, of suicide Review of Systems Constitutional: Denies: Chills, Fever, Weight Change HEENT: Denies: Head Aches, Sinus Congestion, Sinus Drainage Cardiovascular: Reports: Light Headedness. Denies: Chest Pain, Palpitations Respiratory: Reports: Cough - Chronic, Shortness of Breath. Denies: Shortness of breath at rest, Sputum production Gastrointestinal: Reports: Abdominal Pain, Melena. Denies: Nausea, Vomiting Genitourinary: Denies: Dysuria Musculoskeletal: Denies: Joint Pain, Joint Tenderness Skin: Denies: Rash, Wounds Neurological: Denies: Numbness, Tingling, Focal weakness Psychiatric: Reports: Anxiety, Depression. Denies: Homicidal Ideations, Suicidal Ideations Hematologic/ Lymphatic: Denies: Easy Bruising, Easy Bleeding VTE Information - Inpt Only VTE Present on Admission: No VTE Mechan Device Prophylaxis: SCD's VTE Pharm Prophylaxis ordered?: No Patient Problems: Active and Suspected Problems Symptomatic anemia (Acute) Anemia (Acute) - Physical Exam Vitals/I&O's: Vital Signs Temp Pulse Resp BP Pulse Ox 98.1 F 83 18 128/65 H 99 11/03/19 01:20 11/03/19 01:20 11/03/19 01:20 11/03/19 01:20 11/03/19 01:20 Oxygen Delivery Method Room Air Weight: 90.2 kg Body Mass Index (BMI) 31.1 Finger Stick Blood Glucose 120 General: Alert, Oriented x3, Cooperative HEENT: Atraumatic, PERRLA, EOMI, Normocephalic Neck: Supple, No JVD, Negative Carotid Bruits Lungs: Clear to auscultation, Normal air movement Cardiovascular: Regular rate, Normal S1, Normal S2, No murmurs Abdomen: Bowel Sounds Present, Soft, Non Tender Extremities: Capillary Refill Less than 3 Seconds, Edema - Bilateral lower legs, left leg worse than right leg. Skin: No rashes, No breakdown Musculoskeletal: No Tenderness to Palpation of Joints or Extremities Neurological: Cranial nerves II-XII grossly intact Psych/Mental Status: Normal Affect, Appropriate Microbiology Past 72 Hours 11/03/19 00:40 Stool Stool Occult Blood (OLAYINKA) - Final Laboratory Results 11/02/19 23:40: WBC 5.5, RBC 2.51 L, Hgb 5.8 L*, Hct 19.4 L, MCV 77.3 L, MCH 23.1 L, MCHC 29.9 L, RDW Std Deviation 44.4 H, RDW Coeff of Donnie 15.8 H, Plt Count 134 L, MPV 9.8, Immature Gran % (Auto) 0.900, Neut % (Auto) 67.3, Lymph % (Auto) 16.9 L, Letcher % (Auto) 12.6 H, Eos % (Auto) 1.8, Baso % (Auto) 0.5, Absolute Neuts (auto) 3.7, Absolute Lymphs (auto) 0.93, Nucleated RBC % 0.4, Differential Comment SCANNED, Diff Path Review May foll, Polychromasia 1+, Hypochromasia 2+, Microcytosis 2+, Ovalocytes RARE 11/02/19 23:40: Sodium 125 L, Potassium 4.1, Chloride 97 L, Carbon Dioxide 18.0 L, Anion Gap 10, BUN 9, Creatinine 1.01, Estim Creat Clear Calc 73.63, Est GFR (MDRD) Af Amer 97, Est GFR (MDRD) Non-Af 80, BUN/Creatinine Ratio 8.9 L, Glucose 87, Calcium 8.2 L, Troponin I 0.017 11/02/19 23:40: B-Natriuretic Peptide 1772.4 H 11/03/19 00:40: Blood Type Pending, Antibody Screen Pending, Crossmatch See Detail Current Medications Sodium Chloride () 1,000 mls @ 150 mls/hr IV .[id number] ONE Stop: 11/03/19 06:14 Last Admin: 11/02/19 23:47 Dose: 150 mls/hr Documented by: Assessment/Plan All Active Problems Symptomatic anemia (Acute) Anemia (Acute) Pneumonia (Resolved) GI bleed (Resolved) Hypomagnesemia (Resolved) Hepatitis C (Ruled-out) The patient is a 59 year old M with a significant history of CVA; COPD; viruses alcoholism and tobacco abuse who presents emergency department with shortness of breath; lightheadedness with standing up; and found to have anemia of 5.8 and with elevated BNP.. Acute on chronic anemia Emergency department nurse reported orthostatic was negative. His hemoglobin was 5.8 at emergency department. Emergent department doctor ordered for packed red blood cell transfusion in the emergency department. Nursing communication to check hemoglobin after packed red blood transfusion. Will do iron studies including iron; iron binding capacity; ferritin; haptoglobin; LDH; and reticulocyte panel. We will keep patient n.p.o. except medication. Will put on Protonix drip. Occult stools was negative at emergency department. Will repeat occult stools x2. Gentle IV hydration. Hold Plavix. Hold metoprolol. The case was discussed with general surgery Dr. Mcrae who has indicated that he will do an endoscopy if necessary. Elevated BNP Echocardiogram on 05/23/2019: Stage III diastolic dysfunction. Estimated ejection fraction was 65%. Mild to moderate eccentric mitral valve. Moderate tricuspid valve insufficiency. Pulmonary artery systolic pressure was 60. Moderate pulmonary hypertension. Likely secondary to high-output heart failure from anemia. Treat anemia as above. Alcoholism Placed on alcohol withdrawal protocol with phenobarbital and add adjunctive medication. Counselled Hyponatremia On presentation his sodium was 125. Likely secondary to beer potomania. Counseled. Gentle IV fluids for his acute on chronic anemia. COPD Does not appear to be in acute exacerbation. Received Solu-Medrol 125 mg IV x1 in the emergency department. Also received albuterol.. Albuterol ordered. On home Symbicort. Therapeutic interchange at the hospital. History of CVA Hold Plavix because of anemia. Reportedly he had CVA about 4 years ago. Lipitor continued. Depression/anxiety Reportedly he ran out some of his home medication. Buspirone continued Wellbutrin continued Celexa continued. DVT Prophylaxis SCD No chemoprophylaxis secondary to anemia. Inpatient E&M: [id number] Init Hosp L3
--- NOTE | 2019-11-03 02:51 | ECHOD_ITS ---
Reason For Study: Dyspnea/SOB Procedure This was a 2D Doppler, Color Flow transthoracic echocardiogram. Exam performed portable in patient room. Left Ventricle Mild concentric left ventricular hypertrophy. The estimated ejection fraction is 75 %. Stage 3 diastolic dysfunction. No regional wall motion abnormalities noted. Right Ventricle Moderately dilated right ventricle. Normal systolic function. Atria The left atrium is moderately enlarged. The right atrium is mildly enlarged. Normal atrial septum. Mitral Valve Mild focal mitral valve thickening. Possible prolapse of partial prolapse of anterior mitral leaflet with associated moderate to severe posteriorly directed mitral regurgitation. Moderately severe (3+) posteriorly directed mitral valve insufficiency. Tricuspid Valve Normal tricuspid valve. Mild to moderate (1-2+) tricuspid valve insufficiency. Right ventricular systolic pressure estimated to be 80 mmHg. Severe pulmonary hypertension. Aortic Valve Trisinus/trileaflet aortic valve. Normal aortic valve. Pulmonic Valve Normal pulmonic valve. Great Vessels Normal aortic root. Normal arch. The inferior vena cava is dilated. No collapse of the inferior vena cava. Pericardium/Pleural No pericardial effusion. MMode/2D Measurements & Calculations LVIDd: 4.9 cm IVSd: 1.3 cm Ao root diam: 3.1 cm LVIDs: 3.2 cm LVPWd: 1.1 cm RVDd: 4.0 cm FS: 34.3 % LAV(MOD-bp): 61.5 ml LVAd ap4: 26.3 cm2 SV(MOD-sp4): 45.6 ml LAV(MOD-bp) Indexed: 30.8 ml/m2 EDV(MOD-sp4): 72.0 ml LAV(MOD-sp2): 50.6 ml EDV(sp4-el): 73.1 ml LAV(MOD-sp4): 74.4 ml LVAs ap4: 14.3 cm2 ESV(MOD-sp4): 26.4 ml ESV(sp4-el): 25.7 ml EF(MOD-sp4): 63.3 % EF(sp4-el): 64.8 % SV(sp4-el): 47.3 ml LA A4 area: 23.6 cm2 LA dimension(2D): 4.8 cm RA A4 area: 20.3 cm2 Time Measurements MV dec time: 0.08 sec Doppler Measurements & Calculations MV E max hollis: 163.4 cm/sec Lat Peak E' Hollis: 13.6 cm/sec Med Peak E' Hollis: 9.3 cm/sec MV A max hollis: 133.8 cm/sec E/E' lat: 12.1 E/E' med: 17.6 MV E/A: 1.2 MV V2 max: 173.6 cm/sec MV P1/2t max hollis: 162.3 cm/sec Ao V2 max: 165.5 cm/sec MV max P.1 mmHg MV P1/2t: 76.4 msec Ao max P.0 mmHg MV V2 mean: 124.3 cm/sec Ao V2 mean: 114.2 cm/sec MV mean P.7 mmHg MV dec slope: 622.6 cm/sec2 Ao mean P.7 mmHg MV V2 VTI: 33.0 cm MVA(P1/2t): 2.9 cm2 Ao V2 VTI: 32.1 cm LV V1 max: 127.1 cm/sec PA V2 max: 87.1 cm/sec TR max hollis: 432.2 cm/sec LV V1 max P.5 mmHg TR max P.7 mmHg Interpretation Summary Mild concentric left ventricular hypertrophy. The estimated ejection fraction is 75 %. Stage 3 diastolic dysfunction. Moderately dilated right ventricle. The right atrium is mildly enlarged. The left atrium is moderately enlarged. Possible prolapse of partial prolapse of anterior mitral leaflet with associated moderate to severe posteriorly directed mitral regurgitation. Moderately severe (3+) posteriorly directed mitral valve insufficiency. Mild to moderate (1-2+) tricuspid valve insufficiency. Right ventricular systolic pressure estimated to be 80 mmHg. Severe pulmonary hypertension. The inferior vena cava is dilated No collapse of the inferior vena cava. Compared to echo report dated 05/24/2019, LV function has remained the same, mitral regurgitation appears to be slightly worse, and RVSP is increased from 60 to 80 mmHg. Would consider a transesophageal echocardiogram if clinically indicated. Ordering Physician: Tanmay Puentes Referring Physician: [facility] Performed By: Kate Waller RDCS, RVT
[2019-11-03] MEDS: 0.9% Normal Saline 1,000 ML 100 ML IV (04:57)
[2019-11-03] MEDS: Phenobarbital 32.4 MG Tablet 64.8 MG PO ×5 (05:19→19:58)
[2019-11-03] MEDS: Gabapentin 300 MG Capsule PO (05:19)
[2019-11-03 06:34] LABS: Platelet Count 144 K/mm3 (150-450); RET-HE 20.2 pg (30-35); Reticulocyte Count 2.96 % (0.5-1.5)
[2019-11-03 06:38] LABS: International Normalized Ratio 1.2; Prothrombin Time (Protime)PT. 14.7 SECONDS (11.7-14.9)
[2019-11-03] MEDS: Albuterol 2.5 MG/3 ML VIAL.NEB. INHALATION ×3 (07:23→19:21)
[2019-11-03 07:31] LABS: Hematocrit 26.3 % (40-54)
[2019-11-03 07:35] LABS: Ferritin 25 ng/mL (26-388); Iron 52 ug/dL (65-175); Iron Binding Capacity,Total 551 ug/dL (250-450); LDH 165 U/L (87-241); Magnesium 1.7 mg/dL (1.6-2.6); PERCENT IRON SATURATION 9.4 % (15.0-55.0)
[2019-11-03] MEDS: Folic Acid 1 MG Tablet PO (07:54)
[2019-11-03] MEDS: Thiamine Hydrochloride 100 MG Tablet PO (07:54)
[2019-11-03] MEDS: Multivitamins,Therapeutic Tablet 1 TABLET PO (07:54)
--- NOTE | 2019-11-03 08:29 | PCM.PN.BLA ---
Progress Note This is a 59 years old male patient presented to the emergency room because of shortness of breath, profound weakness and he was found to have acute on chronic anemia. On admission, hemoglobin was 5.8 g/dL. It is microcytic anemia due to iron deficiency. Patient received 1 unit of packed RBCs and 3 hemoglobin is 8 g/dL. At this time, no evidence of active bleeding. Patient does have a history of esophageal varices. He denied epistaxis, hemoptysis, hematemesis, hematuria, hematochezia or melena. His symptoms improved. His vital signs are stable. He is on IV Protonix drip. General surgery consulted for probable upper EGD. Plan: H&H every 6 hours x3, transfuse if hemoglobin less than 8 g/dL, continue IV Protonix drip, repeat CBC and BMP tomorrow morning, start Ativan as needed for alcohol withdrawal, CIWA. Patient mentioned that he is not interested in quitting drinking alcohol. STROKE Vital Signs/Narrative: Vital Signs Pulse Resp Pulse Ox 11/03/19 07:20 91 16 97
[2019-11-03 08:49] LABS: Hematocrit 25.1 % (40-54); Hemoglobin 7.6 g/dL (13.0-16.5)
[2019-11-03 09:16] LABS: Vitamin B12 273 pg/mL (211-911)
--- NOTE | 2019-11-03 10:02 | CASEMGMT ---
MALIA is familiar with patient from previous admissions. SW spoke with patient and asked how things were going and he said they were fine. He is not in counseling, but he is still thinking about it. SW asked if he would like and resources to help him quit drinking. He asked for AA meeting list. SW gave him a list of local AA meetings as well as local AA meetings that he can participate via phone. He thanked MALIA for the information. Alexandria BLANK MSW
--- NOTE | 2019-11-03 10:16 | PCM.CONS.GEN ---
Problem List (1) Acute on chronic anemia Status: Acute (2) Esophageal varices determined by endoscopy Status: Chronic Comment: stage II varices on EGD 04/28/[address] Abdullahi. Esophageal varices due to chronic alcohol dependence and chronic liver disease. Reason for Consult Date of Consultation: 11/03/19 History of Present Illness: This is a 59 years old male patient presented to the emergency room because of shortness of breath, profound weakness and he was found to have acute on chronic anemia. On admission, hemoglobin was 5.8 g/dL. It is microcytic anemia due to iron deficiency. Patient received 1 unit of packed RBCs and post hemoglobin is 8 g/dL. At this time, no evidence of active bleeding. Patient does have a history of esophageal varices. He denied epistaxis, hemoptysis, hematemesis, hematuria, hematochezia or melena. His symptoms improved. His vital signs are stable. He is on IV Protonix drip. General surgery consulted for probable upper EGD. Plan: H&H every 6 hours x3, transfuse if hemoglobin less than 8 g/dL, continue IV Protonix drip, repeat CBC and BMP tomorrow morning, start Ativan as needed for alcohol withdrawal, CIWA. Patient mentioned that he is not interested in quitting drinking alcohol. 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 Abdullahi. Esophageal varices due to chronic alcohol dependence and chronic liver disease. Anxiety (Chronic) Pancreatitis (Chronic) Stroke (Chronic) Alcohol abuse (Chronic) Depression (Chronic) COPD (chronic obstructive pulmonary disease) (Chronic) Hyperlipemia (Chronic) GERD (gastroesophageal reflux disease) (Chronic) HTN (hypertension) (Chronic) Colonic polyp (Chronic) Colon, diverticulosis (Chronic) Nicotine addiction (Chronic) RENETTA (obstructive sleep apnea) (Chronic) non-compliant with PAP Carotid stenosis (Chronic) has had a R CEA Allergies lisinopril Allergy (Severe, Verified 11/02/19 23:11) Angioedema bee venom protein (honey bee) Allergy (Verified 11/02/19 23:11) Swelling Home Medications: Ambulatory Orders Medication Instructions Recorded Clopidogrel Bisulfate [Plavix] 75 mg PO DAILY 09/10/16 Folic Acid 1 mg PO DAILY@0800 09/10/16 Budesonide/Formoterol Fumarate 2 puff IH BID 04/25/19 [Symbicort 160-4.5 Mcg Inhaler] Cholecalciferol (VIT D3) [Vitamin 2,000 unit PO DAILY 04/25/19 D3] Metoprolol Tartrate [Lopressor 100 mg PO BID 05/25/19 (beta olga)] Acetaminophen [Tylenol Tablet] 650 mg PO Q6H PRN PRN tab 06/05/19 Amlodipine [Norvasc] 5 mg PO DAILY 06/05/19 Atorvastatin Calcium [Lipitor] 80 mg PO QHS 06/05/19 Albuterol Inhaler [Ventolin Hfa] 2 puff INHALATION Q4H PRN PRN #1 06/16/19 inhaler Ascorbic Acid [Vitamin C] 500 mg PO BIDCM #60 tab 06/16/19 Citalopram [Celexa] 20 mg PO DAILY #30 tab 06/16/19 Magnesium Oxide [Mag-Ox 400] 400 mg PO BIDCM #60 tab 06/16/19 Pantoprazole Sodium [Protonix] 20 mg PO BID tab 06/16/19 Thiamine Hydrochloride [Vitamin B1] 100 mg PO DAILYCM #30 tab 06/16/19 buPROPion XL [Wellbutrin Xl] 150 mg PO DAILY #30 tablet.xl 06/16/19 busPIRone [Buspar] 20 mg PO BID 11/03/19 Surgical History: - - surgery on left foot due to accident, carotid endarterectemy on the right side. Psychiatric History: Anxiety, Depression Lives: Alone Smoking Status: Current every day smoker Drugs: None - *Family History Maternal History Items: Hypertension, No pertinent history - denies cancer, cad, DM, stroke, - - Mother had a history of alcoholism but quit drinking at the age of 55 Paternal History Items: - - alcoholism, of suicide Review of Systems Constitutional: Denies: Chills, Fever, Weight Change Cardiovascular: Denies: Chest Pain, Chest Pressure, Chest Tightness, Palpitations Respiratory: Denies: Cough, Hemoptysis, Shortness of breath at rest, Shortness of breath upon exertion, Wheezing Gastrointestinal: Denies: Abdominal Pain, Constipation, Diarrhea, Hematemesis, Nausea, Melena, Vomiting Patient Problems: Active and Suspected Problems Acute on chronic anemia (Acute) - Physical Exam Vitals/I&O's: Vital Signs Temp Pulse Resp BP Pulse Ox 98.7 F 103 H 18 195/89 H 100 11/03/19 09:20 11/03/19 09:20 11/03/19 09:20 11/03/19 09:20 11/03/19 09:20 Oxygen Delivery Method Room Air Weight: 194 lb 3.636 oz Body Mass Index (BMI) 30.4 Finger Stick Blood Glucose 120 Intake and Output for Last 24 Hours 11/01/19 11/02/19 11/03/19 23:59 23:59 23:59 Intake Total 845 / 845 Balance 845 / 845 General: Alert, Oriented x3 Abdomen: Bowel Sounds Present, Soft, Non Tender, Non-Distended Microbiology Past 72 Hours 11/03/19 04:47 Stool Stool Occult Blood (OLAYINKA) - Final 11/03/19 00:40 Stool Stool Occult Blood (OLAYINKA) - Final Laboratory Results 11/02/19 23:40: WBC 5.5, RBC 2.51 L, Hgb 5.8 L*, Hct 19.4 L, MCV 77.3 L, MCH 23.1 L, MCHC 29.9 L, RDW Std Deviation 44.4 H, RDW Coeff of Donnie 15.8 H, Plt Count 134 L, MPV 9.8, Immature Gran % (Auto) 0.900, Neut % (Auto) 67.3, Lymph % (Auto) 16.9 L, Rooks % (Auto) 12.6 H, Eos % (Auto) 1.8, Baso % (Auto) 0.5, Absolute Neuts (auto) 3.7, Absolute Lymphs (auto) 0.93, Nucleated RBC % 0.4, Differential Comment SCANNED, Diff Path Review May foll, Polychromasia 1+, Hypochromasia 2+, Microcytosis 2+, Ovalocytes RARE 11/02/19 23:40: Sodium 125 L, Potassium 4.1, Chloride 97 L, Carbon Dioxide 18.0 L, Anion Gap 10, BUN 9, Creatinine 1.01, Estim Creat Clear Calc 73.63, Est GFR (MDRD) Af Amer 97, Est GFR (MDRD) Non-Af 80, BUN/Creatinine Ratio 8.9 L, Glucose 87, Calcium 8.2 L, Troponin I 0.017 11/02/19 23:40: B-Natriuretic Peptide 1772.4 H 11/03/19 00:40: Blood Type O POSITIVE, Antibody Screen NEGATIVE, Crossmatch See Detail 11/03/19 06:00: Hgb 8.0 L, Hct 26.3 L 11/03/19 06:06: Retic Count 2.96 H, Immature Retic Fraction 34.10 H, Retic Hgb Equivalent 20.2 L 11/03/19 06:06: Vitamin B12 273 11/03/19 06:06: Haptoglobin Pending 11/03/19 06:06: PT 14.7, INR 1.2 11/03/19 06:06: Magnesium 1.7, Iron 52 L, TIBC 551 H, Iron Saturation 9.4 L, Ferritin 25 L, Lactate Dehydrogenase 165, Folate 78.30 H 11/03/19 08:35: Hgb 7.6 L, Hct 25.1 L Current Medications Acetaminophen (Tylenol) 650 mg PO Q6H PRN PRN PRN Reason: Pain Score 1-10/Temp > 100.7 F Albuterol Sulfate (Ventolin Aerosols) 2.5 mg INHALATION Q2H PRN PRN PRN Reason: SOB/Wheezing Albuterol Sulfate (Ventolin Aerosols) 2.5 mg INHALATION Q6HWA.RT REPLACED BY [facility] Last Admin: 11/03/19 07:23 Dose: 2.5 mg Documented by: Amlodipine Besylate (Norvasc) 5 mg PO DAILY REPLACED BY [facility] Bupropion HCl (Wellbutrin Xl) 150 mg PO DAILY REPLACED BY [facility] Buspirone HCl (Buspar) 20 mg PO BID REPLACED BY [facility] Citalopram Hydrobromide (Celexa) 20 mg PO DAILY REPLACED BY [facility] Dextrose (D50w Syringe) 0 gm IV X1 PRN; Protocol PRN Reason: Hypoglycemia Dicyclomine HCl (Bentyl) 20 mg PO Q6H PRN PRN PRN Reason: abdominal discomfort Folic Acid (Folic Acid) 1 mg PO DAILY@0800 REPLACED BY [facility] Last Admin: 11/03/19 07:54 Dose: 1 mg Documented by: Gabapentin (Neurontin) 300 mg PO Q8H PRN PRN PRN Reason: moderate to severe anxiety Last Admin: 11/03/19 05:19 Dose: 300 mg Documented by: Glucagon () 1 mg IM .X1 PRN PRN Reason: Hypoglycemia Hydralazine HCl (Apresoline Iv) 10 mg IV Q6H PRN PRN PRN Reason: for SBP>160 Hydroxyzine Pamoate (Vistaril Pamoate Capsule) 50 mg PO Q4H PRN PRN PRN Reason: mild anxiety Sodium Chloride () 1,000 mls @ 75 mls/hr IV .[id number] REPLACED BY [facility] Last Admin: 11/03/19 04:57 Dose: 100 mls/hr Documented by: Pantoprazole Sodium 80 mg/ (Sodium Chloride) 100 mls @ 10 mls/hr CONT INF Q10H REPLACED BY [facility] Last Admin: 11/03/19 05:25 Dose: 10 mls/hr Documented by: Loperamide HCl (Imodium) 2 mg PO Q4H PRN PRN PRN Reason: LOOSE STOOLS Lorazepam (Ativan) 2 mg PO Q2H PRN PRN; Protocol PRN Reason: CIWA score > 8 but <15 Lorazepam (Ativan) 2 mg PO UD PRN; Protocol PRN Reason: CIWA score >/=15. Lorazepam (Ativan) 2 mg IV Q2H PRN PRN; Protocol PRN Reason: CIWA score > 8 but <15 Lorazepam (Ativan) 2 mg IV UD PRN; Protocol PRN Reason: CIWA score >/=15. Metoprolol Tartrate (Lopressor (Beta Olga)) 100 mg PO BID REPLACED BY [facility]it[facility]itamin) [facility] Last Admin: 11/03/19 07:54 Dose: 1 tablet Documented by: Nicotine (Nicoderm Cq (Pbkc)) 21 mg TRANSDERM. DAILY REPLACED BY [facility] Last Admin: 11/03/19 05:24 Dose: 21 mg Documented by: Ondansetron HCl (Zofran) 4 mg IV Q8H PRN PRN PRN Reason: NAUSEA/VOMITING Ondansetron HCl (Zofran) 8 mg PO Q8H PRN PRN PRN Reason: NAUSEA Phenobarbital (Phenobarbital) 97.2 mg PO Q4H REPLACED BY [facility]; Taper Stop: 11/07/19 11:59 Last Admin: 11/03/19 07:54 Dose: 97.2 mg Documented by: Sodium Chloride () 10 - 40 ml IV UD PRN PRN Reason: SALINE FLUSH Thiamine HCl (Vitamin B1) 100 mg PO DAILYCM [place] Last Admin: 11/03/19 07:54 Dose: 100 mg Documented by: Trazodone HCl (Desyrel) 100 mg PO QHS PRN PRN PRN Reason: INSOMNIA Assessment/Plan All Active Problems Acute on chronic anemia (Acute) GI bleed (Resolved) Hypomagnesemia (Resolved) Hepatitis C (Ruled-out) At the present time the patient has no active bleeding. He has been taking Pepto-Bismol which probably has made his stools darker. He has had no evidence of hematemesis. And has shown appropriate response to blood transfusion although his hemoglobin is starting to drift down again. Patient will probably need another blood transfusion. I will continue to observe. I believe he is certainly going to need to have both an upper and lower scope but this is probably should be done at a larger institution where esophageal banding can be done more readily. Office Visits / Consults: [id number] IP Consult L3
[2019-11-03] MEDS: amLODIPine 5 MG Tablet PO (10:25)
[2019-11-03] MEDS: Metoprolol Tartrate 100 MG Tablet PO ×2 (10:25→21:29)
[2019-11-03] MEDS: busPIRone 5 MG Tablet 20 MG PO ×2 (10:25→21:29)
[2019-11-03] MEDS: Citalopram 20 MG Tablet PO (10:25)
[2019-11-03] MEDS: LORazepam 1 MG Tablet 2 MG PO ×2 (10:26→21:29)
[2019-11-03] MEDS: buPROPion (XL) 150 MG TABLET.XL PO (10:26)
--- NOTE | 2019-11-03 11:25 | CASEMGMT ---
Addendum entered by Javan Camp 11/03/19 17:19: PT/OT evals have been completed. No additional therapy is recommended. Addendum entered by Javan Camp 11/03/19 17:17: 1130: Discussed [facility] Transfer Decl[facility] Form. Pt does not wish to transfer to [facility]. Discussed that billing for [facility] admission would be under [facility]. Pt is agreeable and signed form. Copy made and placed on chart and original given to pt. Form faxed to [facility] along w/clinical information. Original Note: RN CM SURGICAL TECHNOLOGY INSTRUCTOR CM to room to meet with patient for initial transition planning/care coordination assessment. RN SAMI introduced self and role at [facility]. Pt voices understanding and consents to assessment at this time. Pt resting in bed in no distress at this time. Pt is A/O at this time and answers all questions appropriately. Care providers, pharmacy, and demographics verified/updated at this time. PCP: [facility] [place] Specialists: @ [place] Preferred Pharmacy: [facility] for short-term meds, [facility] for long-term meds. Insurance: [facility], [place] benefits. Pt states he just recently applied for [employer] but is not sure if he is eligible. Call placed to Tawnya in pre-cert department. She ran pt's information and confirms pt does have [employer]ON as well. She states she will scan this information into pt's records. Pt made aware. Prescription Benefit: [place] Living Will/HPOA: Has LW and healthcare POA, which is his friend, Mariajose Mccann. Copies of both are on file @ [facility] [place]: Mother, Trisha Najera, Friend, Mariajose Ramy/VIRGIL, Daughter, Tamiko, Brother, Burt Najera Living Arrangements: Lives alone in a 2-story apartment, with 3 steps to enter. States there are approx 14 steps (no railing) to 2nd floor where bathroom is where he showers. Has 1/2 bath on main floor. Pt states does have some difficulty with the stairs and has fallen down them in the past. States he gets his housing through [facility]. BIANCA GALLARDO suggested pt contact [facility] to see if they can assist with having rails placed on stairs or other housing options/assistance. Pt states he is independent w/ADL's, manages his own appts/medications. Friends drive him to grocery store but he does his own shopping. Transportation: Friends, Cab services DME: Has medical alert tammie. has a shower chair but does not use it. Ambulates independently w/no DME. Pt states no need for further DME at this time. HHC/SNF: Hx of T[facility] and [facility]. Also hx of HHC but does not remember name of agency. Discussed discharge planning. Pt states he wants to return home and states has no concerns with going home at time of discharge. States is interested in HHC, as he does not like to go out to very many places and states it is difficult at times. Pt made aware of [facility]'s guidelines/requirements of being homebound. Also discussed OP therapy at this time, but pt states is not interested in that. PT/OT sincere pending. Pt states he does drink ETOH, approx 6-8 beers/day. CM to follow for any discharge planning/needs. Pt voices no concerns/needs at this time. Advised pt to ask for CM if any questions/concerns/needs arise. Voices understanding. PLAN: Home. PT/OT sincere pending. SW was just in to see pt to provide ETOH resources Javan PEREIRA RN CM
[2019-11-03 12:35] LABS: Pathologist Review Reviewed
[2019-11-03] MEDS: hydrALAZINE 20 MG/ML Vial 10 MG IV ×2 (15:09→21:29)
--- NOTE | 2019-11-03 15:50 | NURSING ---
pt with bruising noted above right eye lid, does not recall hitting his eye. unsure if he had this prior to admission.
[2019-11-03] MEDS: 0.9% Normal Saline 1,000 ML 75 ML IV (19:58)
[2019-11-04] VITALS (7 sets, daily range): BP systolic 152–164; BP diastolic 91–100; PULSE 95–103; RESP 16–20; TEMP 36.6–36.9; O2SAT 95–99
[2019-11-04] MEDS: Phenobarbital 32.4 MG Tablet 64.8 MG PO ×3 (01:51→09:44)
--- NOTE | 2019-11-04 04:58 | NURSING ---
Midnight dose of phenobarbital given late at 0151. Called pharmacy and spoke to Chris, who states that as long as pt waking up, no signs of lethargy and no decreased respers, would go ahead and give 0400 dose now, to get pt back on schedule. Pt's VS stable and even respers, wakes up easily, phenobarbital given Sky, RN
[2019-11-04] MEDS: Albuterol 2.5 MG/3 ML VIAL.NEB. INHALATION (06:41)
[2019-11-04 06:42] LABS: Absolute Lymphocyte Count 0.49 X10^3/uL (0.83-4.51); Absolute Neutrophil Count 10.1 X10^3/uL (2.0-7.7); Basophil# 0.01 X10^3/uL; Basophil% 0.1 % (0-1); Eosinophil# 0.01 X10^3/uL; Eosinophils% 0.1 % (0-5); Hematocrit 27.8 % (40-54); Hemoglobin 8.6 g/dL (13.0-16.5); Lymphocyte # 0.49 X10^3/ul (4.0); Lymphocyte % 4.1 % (19-41); Mean Corp Hgb Conc 30.9 g/dL (32-36); Mean Corpuscular Hgb 24.2 pg (27.0-32.0); Mean Corpuscular Volume 78.3 fL (80-94); Mean Platelet Vol. 10.1 fl (6.2-12.0); Monocyte# 1.21 X10^3/uL; Monocyte% 10.1 % (0-10); NRBC Flagged by Analyzer 0.2 % (0-5); Neutrophil # 10.12 X10^3/uL (2.7-7.7); Neutrophil % 84.8 % (47-70); POSITIVE COUNT YES; POSITIVE DIFFERENTIAL YES; Platelet Count 136 K/mm3 (150-450); RBC Distribution Width CV 15.7 % (11.6-14.6); RBC Distribution Width SD 44.2 fl (35.1-43.9); Red Blood Count 3.55 M/mm3 (4.6-6.2); White Blood Count 11.9 K/mm3 (4.4-11.0)
[2019-11-04 06:52] LABS: Differential Indicated SCAN CRITERIA MET
[2019-11-04 07:00] LABS: Anion Gap 8 (5-15); BUN 12 mg/dL (7-18); BUN/Creat Ratio 14.3 RATIO (10-20); Calcium,Total 8.5 mg/dL (8.5-10.1); Chloride 103 mmol/L (98-107); Creatinine, Serum 0.84 mg/dL (0.70-1.30); EST Glomerular Filtration Rate 99 mL/min (>60); Est Glom Filt Rate - Afr Amer 120 mL/min (>60); Estimated Creatinine Clearance 88.53 ml/min; Glucose 117 mg/dL (74-106); Potassium 3.9 mmol/L (3.5-5.1); Sodium Level 130 mmol/L (136-145)
[2019-11-04 07:14] LABS: Differential Comment SCANNED
[2019-11-04 07:17] LABS: Microcytosis 1+
[2019-11-04 07:18] LABS: Hypochromasia 1+; Ovalocyte RARE
[2019-11-04 07:19] LABS: Polychromasia RARE
[2019-11-04] MEDS: Metoprolol Tartrate 100 MG Tablet PO (09:41)
[2019-11-04] MEDS: busPIRone 5 MG Tablet 20 MG PO (09:41)
[2019-11-04] MEDS: amLODIPine 5 MG Tablet PO (09:42)
[2019-11-04] MEDS: buPROPion (XL) 150 MG TABLET.XL PO (09:42)
[2019-11-04] MEDS: Thiamine Hydrochloride 100 MG Tablet PO (09:42)
[2019-11-04] MEDS: Pantoprazole Sodium 20 MG Tablet PO (09:42)
[2019-11-04] MEDS: Folic Acid 1 MG Tablet PO (09:42)
[2019-11-04] MEDS: Citalopram 20 MG Tablet PO (09:42)
[2019-11-04] MEDS: Multivitamins,Therapeutic Tablet 1 TABLET PO (09:43)
[2019-11-04 11:25] LABS: Hematocrit 27.4 % (40-54); Hemoglobin 8.3 g/dL (13.0-16.5)
--- NOTE | 2019-11-04 11:41 | PCM.DC ---
- Discharge Diagnoses Current Active Problems: Current Active and Chronic Problems Acute on chronic anemia (Acute) Chronic iron deficiency anemia (Chronic) You will use the following diet at home:: Cardiac Your food should be the consistency of: Regular Discharge Activity: Return to Normal Activity Weight Bearing Status: Weight bearing as tolerated Call your doctor if you observe: Fever of 101 or Higher, Shortness of breath, Dizziness, Fainting spells, Chest pain, Increased palpitations (irregular heartbeat), Uncontrolled pain Allergies/Adverse Reactions: Allergies lisinopril Allergy (Severe, Verified 11/02/19 23:11) Angioedema bee venom protein (honey bee) Allergy (Verified 11/02/19 23:11) Swelling Medications to take at Discharge Clopidogrel Bisulfate [Plavix] 75 mg PO DAILY 09/10/16 Folic Acid 1 mg PO DAILY@0800 09/10/16 Budesonide/Formoterol Fumarate [Symbicort 160-4.5 Mcg Inhaler] 2 puff IH BID 04/25/19 Cholecalciferol (VIT D3) [Vitamin D3] 2,000 unit PO DAILY 04/25/19 Metoprolol Tartrate [Lopressor (beta ran)] 100 mg PO BID 05/25/19 Acetaminophen [Tylenol Tablet] 650 mg PO Q6H PRN PRN tab 06/05/19 Amlodipine [Norvasc] 5 mg PO DAILY 06/05/19 Atorvastatin Calcium [Lipitor] 80 mg PO QHS 06/05/19 Albuterol Inhaler [Ventolin Hfa] 2 puff INHALATION Q4H PRN PRN #1 inhaler 06/16/19 Ascorbic Acid [Vitamin C] 500 mg PO BIDCM #60 tab 06/16/19 Citalopram [Celexa] 20 mg PO DAILY #30 tab 06/16/19 Magnesium Oxide [Mag-Ox 400] 400 mg PO BIDCM #60 tab 06/16/19 Pantoprazole Sodium [Protonix] 20 mg PO BID tab 06/16/19 Thiamine Hydrochloride [Vitamin B1] 100 mg PO DAILYCM #30 tab 06/16/19 buPROPion XL [Wellbutrin Xl] 150 mg PO DAILY #30 tablet.xl 06/16/19 busPIRone [Buspar] 20 mg PO BID 11/03/19 Ferrous Sulfate 325 mg PO BIDCM #90 tab 11/04/19 The following prescriptions were given: Ferrous Sulfate 325 mg PO BIDCM #90 tab Transmission Status: Pending to [email or web address] #30 Primary Care Physician: Chayo,VIGNESH [Primary Care Provider] - Please follow up with your Primary Care Physician in: 1 week. Test Results: Test results from this visit will be discussed in further detail at your follow-up appointment, if applicable.
--- NOTE | 2019-11-04 11:43 | DS.PCM_ITS ---
Discharge Date and Diagnosis - Problem List Patient Problems: Active and Suspected Problems Acute on chronic anemia (Acute) Date of Admission: 11/03/19 Date of Discharge: 11/04/19 - Primary Discharge Diagnosis Acute Problems: Active Problems #1 acute on chronic blood loss/iron deficiency symptomatic anemia. #2 chronic hyponatremia, due to alcohol abuse. #3 chronic alcohol abuse. 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 Abdullahi. Esophageal varices due to chronic alcohol dependence and chronic liver disease. Anxiety (Chronic) Pancreatitis (Chronic) Stroke (Chronic) Alcohol abuse (Chronic) Depression (Chronic) COPD (chronic obstructive pulmonary disease) (Chronic) Hyperlipemia (Chronic) GERD (gastroesophageal reflux disease) (Chronic) HTN (hypertension) (Chronic) Colonic polyp (Chronic) Colon, diverticulosis (Chronic) Nicotine addiction (Chronic) REENTTA (obstructive sleep apnea) (Chronic) non-compliant with PAP Carotid stenosis (Chronic) has had a [facility] Hospital Course and Treatment Imaging Results: Clinical Impression(s) from Imaging Studies Chest X-Ray 11/02/19 23:35 IMPRESSION: Mild cardiomegaly. There is bilateral basilar atelectasis. Similar to prior exam. No focal consolidation is seen. Electronically Signed: Andrey Roa, at 0:10 EDT Tel , Service support , Operations: None Procedures: Blood transfusion Summary of Care Provided: Patient seen and examined on the day of discharge and appeared to be stable to be discharged home. He denied any more shortness of breath. Denied dizziness or lightheadedness. He has been ambulating, no symptoms. His blood pressure has been on the higher side, other vital signs are stable. The patient is a 59 year old M presented to the emergency room because of shortness of breath, dizziness and lightheadedness and he was found to have severe acute on chronic blood loss symptomatic anemia. This patient had a history of liver cirrhosis with esophageal varices. During this hospital stay, there was no obvious source of bleeding identified and there was no evidence of active bleeding. Patient denied any hemoptysis, hematemesis, hematochezia, melena or hematuria. Stool for occult blood done twice and was negative. On admission, hemoglobin was 5.8 g/dL. Patient received a total of 2 weeks of packed RBCs and his hemoglobin came up to 8.3 g/dL upon discharge. He does have chronic thrombocytopenia but his platelet count was around 130,000. Pro time was 14.7 and INR was 1.2. General surgery consulted and stated that there is no active GI bleed at this time. Recommended blood transfusion as appropriate. After blood transfusion, patient symptoms of shortness of breath, dizziness and lightheadedness improved. He was started on phenobarbital taper as well as Ativan as needed, folic acid, thiamine and multivitamins for alcohol use and possible withdrawal. On the day of discharge, patient started to exhibit some symptoms of acute alcohol withdrawal. He was unsteady and jittery. I spoke with the patient regarding his alcohol drinking behavior and he clearly mentioned that he is not thinking to cut back or quit drinking alcohol. He states that he is not interested and detoxification. He has no interest and no intentions and cutting or quitting alcohol drinking although he is aware of all medical problems that was caused to him by drinking alcohol. The mental health case manager was worried about patient going home being and steady and he may fell at home. I went back to the patient to talk to him about his drinking behavior and again clearly mentioned that he is not interested in cutting back or quitting drinking alcohol. He was given couple of beers to drink before he go home. Nursing staff mentioned that he is looking and feeling better already. He was kept for couple of hours afterwards to make sure he is stable to go home. Patient agreed to call a friend of his to pick him up from the hospital to go home and make sure he is safe. Patient discharged home in a stable medical condition, discharged on PPI as before, started on iron supplement, continued on his other previous home medications without any changes, recommended follow-up with PCP in 1 week. I think if this patient happened to come back because of anemia, he should transferred to a larger facility where they can handle GI bleed due to esophageal varices. Patient Problems: Active and Suspected Problems Acute on chronic anemia (Acute) - Physical Exam Vitals/I&O's: Vital Signs Temp Pulse Resp BP Pulse Ox 98.4 F 97 18 164/100 H 95 11/04/19 09:50 11/04/19 09:50 11/04/19 09:50 11/04/19 09:50 11/04/19 09:50 Oxygen Flow Rate (L/min) 2 Oxygen Delivery Method Room Air Weight: 194 lb 3.636 oz Body Mass Index (BMI) 30.4 Finger Stick Blood Glucose 120 Intake and Output for Last 24 Hours 11/02/19 11/03/19 11/04/19 23:59 23:59 23:59 Intake Total 3427.5 / 3427.5 1206.83 / 1206.83 Balance 3427.5 / 3427.5 1206.83 / 1206.83 General: Alert, Oriented x3, Cooperative HEENT: Atraumatic, PERRLA, EOMI Oral: Moist Mucosa, No Gingival or Mucosal Lesions/ Ulcerations Neck: Supple, No JVD, Negative Carotid Bruits, Trachea Midline, Thyroid Normal Size and Texture Lungs: Clear to auscultation, Normal air movement, No rhonchi, No wheeze, No rales, Diminished Cardiovascular: Regular rate, Regular Rhythm, Normal S1, Normal S2, PMI Normal Abdomen: Bowel Sounds Present, Soft, Non Tender, Non-Distended, No Hepato- splenomegaly Extremities: No clubbing, No cyanosis, No edema Skin: No rashes, No breakdown Lymphatic: No Cervical, Supraclavicular, or Inguinal Adenopathy Neurological: Cranial nerves II-XII grossly intact, Neuro grossly intact Psych/Mental Status: Normal Affect, Appropriate Microbiology Past 72 Hours 11/03/19 04:47 Stool Stool Occult Blood (OLAYINKA) - Final 11/03/19 00:40 Stool Stool Occult Blood (OLAYINKA) - Final Laboratory Results 11/02/19 23:40: Diff Path Review Reviewed 11/03/19 00:30: Crossmatch See Detail 11/03/19 00:40: Crossmatch See Detail 11/04/19 06:22: WBC 11.9 H, RBC 3.55 L, Hgb 8.6 L, Hct 27.8 L, MCV 78.3 L, MCH 24.2 L, MCHC 30.9 L, RDW Std Deviation 44.2 H, RDW Coeff of Donnie 15.7 H, Plt Count 136 L, MPV 10.1, Immature Gran % (Auto) 0.800, Neut % (Auto) 84.8 H, Lymph % (Auto) 4.1 L, Mcleod % (Auto) 10.1 H, Eos % (Auto) 0.1, Baso % (Auto) 0.1, Absolute Neuts (auto) 10.1 H, Absolute Lymphs (auto) 0.49 L, Nucleated RBC % 0.2, Differential Comment SCANNED, Polychromasia RARE, Hypochromasia 1+, Microcytosis 1+, Ovalocytes RARE 11/04/19 06:22: Sodium 130 L, Potassium 3.9, Chloride 103, Carbon Dioxide 19.0 L , Anion Gap 8, BUN 12, Creatinine 0.84, Estim Creat Clear Calc 88.53, Est GFR (MDRD) Af Amer 120, Est GFR (MDRD) Non-Af 99, BUN/Creatinine Ratio 14.3, Glucose 117 H, Calcium 8.5 11/04/19 11:10: Hgb 8.3 L, Hct 27.4 L Current Medications Acetaminophen (Tylenol) 650 mg PO Q6H PRN PRN PRN Reason: Pain Score 1-10/Temp > 100.7 F Albuterol Sulfate (Ventolin Aerosols) 2.5 mg INHALATION Q2H PRN PRN PRN Reason: SOB/Wheezing Albuterol Sulfate (Ventolin Aerosols) 2.5 mg INHALATION Q6HWA.RT [facility] Last Admin: 11/04/19 06:41 Dose: 2.5 mg Documented by: Amlodipine Besylate (Norvasc) 5 mg PO DAILY [facility] Last Admin: 11/04/19 09:42 Dose: 5 mg Documented by: Bupropion HCl (Wellbutrin Xl) 150 mg PO DAILY [facility] Last Admin: 11/04/19 09:42 Dose: 150 mg Documented by: Buspirone HCl (Buspar) 20 mg PO BID [facility] Last Admin: 11/04/19 09:41 Dose: 20 mg Documented by: Citalopram Hydrobromide (Celexa) 20 mg PO DAILY [facility] Last Admin: 11/04/19 09:42 Dose: 20 mg Documented by: Dextrose (D50w Syringe) 0 gm IV X1 PRN; Protocol PRN Reason: Hypoglycemia Dicyclomine HCl (Bentyl) 20 mg PO Q6H PRN PRN PRN Reason: abdominal discomfort Folic Acid (Folic Acid) 1 mg PO DAILY@0800 [facility] Last Admin: 11/04/19 09:42 Dose: 1 mg Documented by: Gabapentin (Neurontin) 300 mg PO Q8H PRN PRN PRN Reason: moderate to severe anxiety Last Admin: 11/03/19 05:19 Dose: 300 mg Documented by: Glucagon () 1 mg IM .X1 PRN PRN Reason: Hypoglycemia Hydralazine HCl (Apresoline Iv) 10 mg IV Q6H PRN PRN PRN Reason: for SBP>160 Last Admin: 11/03/19 21:29 Dose: 10 mg Documented by: Hydroxyzine Pamoate (Vistaril Pamoate Capsule) 50 mg PO Q4H PRN PRN PRN Reason: mild anxiety Loperamide HCl (Imodium) 2 mg PO Q4H PRN PRN PRN Reason: LOOSE STOOLS Lorazepam (Ativan) 2 mg PO Q2H PRN PRN; Protocol PRN Reason: CIWA score > 8 but <15 Last Admin: 11/03/19 21:29 Dose: 2 mg Documented by: Lorazepam (Ativan) 2 mg PO UD PRN; Protocol PRN Reason: CIWA score >/=15. Lorazepam (Ativan) 2 mg IV Q2H PRN PRN; Protocol PRN Reason: CIWA score > 8 but <15 Lorazepam (Ativan) 2 mg IV UD PRN; Protocol PRN Reason: CIWA score >/=15. Metoprolol Tartrate (Lopressor (Beta Olga)) 100 mg PO BID [facility] Last Admin: 11/04/19 09:41 Dose: 100 mg Documented by: [facility] Admin: 11/04/19 09:43 Dose: 1 tablet Documented by: Nicotine (Nicoderm Cq (Pbkc)) 21 mg TRANSDERM. DAILY [facility] Last Admin: 11/04/19 09:41 Dose: 21 mg Documented by: Ondansetron HCl (Zofran) 4 mg IV Q8H PRN PRN PRN Reason: NAUSEA/VOMITING Ondansetron HCl (Zofran) 8 mg PO Q8H PRN PRN PRN Reason: NAUSEA Pantoprazole Sodium (Protonix) 20 mg PO BID [facility] Last Admin: 11/04/19 09:42 Dose: 20 mg Documented by: Phenobarbital (Phenobarbital) 97.2 mg PO Q4H [facility]; Taper Stop: 11/07/19 11:59 Last Admin: 11/04/19 09:44 Dose: 97.2 mg Documented by: Sodium Chloride () 10 - 40 ml IV UD PRN PRN Reason: SALINE FLUSH Thiamine [facility]amin B1) [facility] Last Admin: 11/04/19 09:42 Dose: 100 mg Documented by: Trazodone HCl (Desyrel) 100 mg PO QHS PRN PRN PRN Reason: INSOMNIA Discharge Activity: Return to Normal Activity Weight Bearing Status: Weight bearing as tolerated Call your doctor if you observe: Fever of 101 or Higher, Shortness of breath, Dizziness, Fainting spells, Chest pain, Increased palpitations (irregular heartbeat), Uncontrolled pain Home Medications: Medications to take at Discharge Clopidogrel Bisulfate [Plavix] 75 mg PO DAILY 09/10/16 Folic Acid 1 mg PO DAILY@0800 09/10/16 Budesonide/Formoterol Fumarate [Symbicort 160-4.5 Mcg Inhaler] 2 puff IH BID 04/25/19 Cholecalciferol (VIT D3) [Vitamin D3] 2,000 unit PO DAILY 04/25/19 Metoprolol Tartrate [Lopressor (beta olga)] 100 mg PO BID 05/25/19 Acetaminophen [Tylenol Tablet] 650 mg PO Q6H PRN PRN tab 06/05/19 Amlodipine [Norvasc] 5 mg PO DAILY 06/05/19 Atorvastatin Calcium [Lipitor] 80 mg PO QHS 06/05/19 Albuterol Inhaler [Ventolin Hfa] 2 puff INHALATION Q4H PRN PRN #1 inhaler 06/16/19 Ascorbic Acid [Vitamin C] 500 mg PO BIDCM #60 tab 06/16/19 Citalopram [Celexa] 20 mg PO DAILY #30 tab 06/16/19 Magnesium Oxide [Mag-Ox 400] 400 mg PO BIDCM #60 tab 06/16/19 Pantoprazole Sodium [Protonix] 20 mg PO BID tab 06/16/19 Thiamine Hydrochloride [Vitamin B1] 100 mg PO DAILYCM #30 tab 06/16/19 buPROPion XL [Wellbutrin Xl] 150 mg PO DAILY #30 tablet.xl 06/16/19 busPIRone [Buspar] 20 mg PO BID 11/03/19 Ferrous Sulfate 325 mg PO BIDCM #90 tab 11/04/19 Following Prescrptions Were Given to Patient: Ferrous Sulfate 325 mg PO BIDCM #90 tab Transmission Status: Received by [facility]] - Please follow up with your Primary Care Physician in: 1 week. Disposition: Home Minutes spent on discharge:: 32 Patient Condition:: Stable Medical Necessity - Tobacco Use Smoking Status: Current every day smoker Meaningful Use Info Meaningful Use Diagnoses (Choose all that apply): None applicable Inpatient E&M: 86798 [facility]
--- NOTE | 2019-11-04 11:43 | CASEMGMT ---
BIANCA GALLARDO NOTE: To room to talk with pt. As BIANCA GALLARDO entered room, pt holding a folded menu and coughing phlegm into it. Pt's face bluish/purple in color, and he stated, I choked. BIANCA Szymanski, made aware and to room to assess pt. Javan CHAVEZN BIANCA GALLARDO
--- NOTE | 2019-11-04 12:16 | CASEMGMT ---
Patient has a Healthcare Power of Wood Grinder and a Healthcare Living Will on file at [facility]. His friend Yaz is his POA. Alexandria BLANK MSW
--- NOTE | 2019-11-04 12:22 | CASEMGMT ---
BIANCA GALLARDO NOTE: Discharge order is in. BIANCA GALLARDO back in room to talk with pt. Pt laying in bed, restless, and picking at his sheets. Noted he has ripped his Kleenex box apart and his glasses are broken--one of the arms of his glasses are laying on the floor. Pt sat up on edge of bed and attempted to stand up while having his eyes closed. RN CM re-directed pt and he sat back down on edge of the bed and opened his eyes when RN CM asked him to. Pt started picking at his bedsheet again. Speech sl slurred at times. RN SAMI discussed concerns w/pt going home alone and getting up his stairs safely, as he is starting to exhibit signs of ETOH withdrawal. Pt stated to this RN SAMI, You are right. I understand your concerns. Pt states he would still like to return home. BIANCA GALLARDO voiced concerns again about him going home alone and asked him if he has a friend or family member that could take him home and stay with him for awhile. Pt states he has a friend, Mimi, who he will try to reach to see if she is available. He states if she is not available, he can try and call another friend as well. Pt opened his wallet and took out a phone number. Pt having difficulty w/dialing the phone number. RN SAMI assisted pt with making the call at this time. Dr Moore made aware that pt lives alone and has 14 steps to enter his home, and that pt reported to this RN CM that he has fallen down them on a couple of occasions and has had injuries. Dr Moore also made aware that pt is starting to have ETOH w/d symptoms. Dr Moore in room to talk with pt at this time. Dr Moore discussed with pt if he wishes to stop drinking ETOH and pt states he does not wish to stop. Dr Moore states plans to place an order for pt to have a couple of beers and wait a couple of hours to see how pt is doing. Pt is agreeable to this. Dr Moore aware pt is going to try and contact a friend to take him home and stay with him so he is not home alone. Stephon VALENZUELA, aware of all of the above. Javan CHAVEZN BIANCA GALLARDO
--- NOTE | 2019-11-04 14:30 | NURSING ---
This RN and CM RN notified Dr. Moore of safety concerns with patients discharge. Pt is exhibiting signs of withdrawal, minor agitation, malaise, garbled speech and he is shaky and unsteady. Fearful of his return home safely especially with the use of stairs that he has at home, both MD and CMRN spoke with patient extensively about their recommendations for him to stop drinking alcohol and provided him with the option to seek alcohol cessation treatment. After multiple attempts the patient refused. He has no plans to stop drinking. The patient became adamant about leaving and going home today. This RN, MD and CMRN recommended that patient have family or friend pick him up and stay with him to help with his needs at home and make sure he remains safe. The patient was given 2 beers to drink to help alleviate his withdrawal symptoms per MD orders. after about 2 hours the patient only drank one beer but did appear more awake, less unsteady and have less tremors. MD did come to patients bedside again and evaluate him and at that time the patient told the physician that he was ready to leave and that he had called his friend Yaz to come pick him up. notified RN of this and this RN then removed the patients IVs and gave him his discharge instructions. After the patient was taken out to his ride for discharge, his friend Yaz care her card to [facility] with phone number to have this RN call her. This RN then called Yaz and notified her of patients stay and situation. Yaz then asked of this RN would call her back after she assists the patient into his home. This RN called her back about 45min later as requested. Yaz then stated to this RN that she is unable to stay with patient as requested by the patient and recommended by and CMRN. This RN verbalized his understanding of this but encouraged her to continue to do her best to check up on him regularly and monitor his safety. Yaz verbalized to this RN her concern for his safety and her fear for him falling again especially when he drinks and that she will do the best she can to help him.
[2019-11-04 15:42] LABS: Haptoglobin 111 mg/dL (29-370)
--- NOTE | 2019-11-05 09:41 | CASEMGMT ---
RN CM NOTE: Discharge instructions and summary faxed to [place] transfer center. Javan CHAVEZN RN CM
--- NOTE | 2019-11-05 15:49 | CASEMGMT ---
BIANCA GALLARDO Discharge Follow-Up Phone Call. Lace: 13 Strata: 4 Discharge Date: 11/04/19 Adm Dx: Acute on Chronic Anemia. Attempted discharge follow-up phone call. No answer. No VM message came on/unable to leave message. Javan CHAVEZN RN CM
== END 2019-11-04 14:07 | disposition home or self-care (01) | DRG 812 ==
LOC: ED 11-03 02:34 → PCU 11-03 02:53
PROVIDERS: Admitting Provider Hospitalist; Emergency Provider Emergency Medicine; Visit Provider Hospitalist
DX: D50.0 Iron deficiency anemia secondary to blood loss (chronic) (principal); I85.00 Esophageal varices without bleeding; E87.1 Hypo-osmolality and hyponatremia; K86.1 Other chronic pancreatitis; K21.9 Gastro-esophageal reflux disease without esophagitis; F32.9 Major depressive disorder, single episode, unspecified; E78.5 Hyperlipidemia, unspecified; G47.33 Obstructive sleep apnea (adult) (pediatric); F17.200 Nicotine dependence, unspecified, uncomplicated; I27.20 Pulmonary hypertension, unspecified; Z91.19 Patient's noncompliance with other medical treatment and regimen; D69.6 Thrombocytopenia, unspecified; Z86.73 Personal history of transient ischemic attack (TIA), and cerebral infarction without residual deficits; F10.20 Alcohol dependence, uncomplicated; F41.9 Anxiety disorder, unspecified; I08.1 Rheumatic disorders of both mitral and tricuspid valves; K44.9 Diaphragmatic hernia without obstruction or gangrene; Z87.19 Personal history of other diseases of the digestive system; Z82.49 Family history of ischemic heart disease and other diseases of the circulatory system; Z79.02 Long term (current) use of antithrombotics/antiplatelets; Z79.51 Long term (current) use of inhaled steroids; I50.9 Heart failure, unspecified; I11.0 Hypertensive heart disease with heart failure; J44.9 Chronic obstructive pulmonary disease, unspecified; K57.90 Diverticulosis of intestine, part unspecified, without perforation or abscess without bleeding
CPT/HCPCS: 36415; 71045; 80048; 82274; 82607; 82728; 82746; 83010; 83540; 83550; 83615; 83735; 83880; 84484; 85014; 85018; 85025; 85045; 85610; 86850; 86900; 86901; 86920; 86922; 93005; 93306; 94640; 97162; 97166; 99251; 99285; 99406; J7030; J7040; P9016; Q9957; A4216; G0463

== ENCOUNTER 2019-11-05 16:01 | Emergency (ER) | payer MEDICARE, SELFPAY ==
[2019-11-03 03:21] VITALS: BMI 30.4
[2019-11-05] VITALS (12 sets, daily range): BP systolic 141–186; BP diastolic 80–104; PULSE 86–116; RESP 17–23; TEMP 36.9–37.2; O2SAT 92–98; BMI 32.1
--- NOTE | 2019-11-05 16:30 | EKG12_ITS ---
Test Reason : Blood Pressure : / mmHG Vent. Rate : 097 BPM Atrial Rate : 097 BPM P-R Int : 144 ms QRS Dur : 086 ms QT Int : 374 ms P-R-T Axes : 046 086 048 degrees QTc Int : 474 ms Normal sinus rhythm Normal ECG Confirmed by ANGELES HARDIN MD ([id number]), marketing editor RAJ ANN ([id number] on 11/08/2019 1:06:56 PM Referred By: Confirmed By:ANGELES HARDIN MD
--- NOTE | 2019-11-05 16:51 | RAD_ITS ---
STUDY: X-RAY CHEST REASON FOR EXAM: Male, 59 years old. C/O SOB AND WEAKNESS TECHNIQUE: Single AP portable view of the chest. COMPARISON: 11-02-19 FINDINGS: The lungs are clear and expanded. There is no demonstrated pleural abnormality. Normal size heart. Normal mediastinum and emma. Normal visualized pulmonary arteries. Normal visualized aortic arch and descending thoracic aorta. Normal visualized thoracic spine. Normal visualized ribs, clavicles, and shoulders. There is no demonstrated abnormality of the visualized soft tissue structures of the upper abdomen. RAD/Chest 1 View (Portable) IMPRESSION: Normal x-ray examination of the chest. Electronically Signed: Can Person MD at 17:17 EDT Tel , Service support ,
[2019-11-05 17:02] LABS: Absolute Neutrophil Count 5.4 X10^3/uL (2.0-7.7); Basophil# 0.01 X10^3/uL; Basophil% 0.2 % (0-1); Eosinophil# 0.01 X10^3/uL; Eosinophils% 0.2 % (0-5); Hemoglobin 7.9 g/dL (13.0-16.5); Lymphocyte % 6.1 % (19-41); Mean Corp Hgb Conc 30.4 g/dL (32-36); Mean Platelet Vol. 10.1 fl (6.2-12.0); Monocyte# 0.68 X10^3/uL; Monocyte% 10.4 % (0-10); NRBC Flagged by Analyzer 0 % (0-5); Neutrophil # 5.39 X10^3/uL (2.7-7.7); Neutrophil % 82.6 % (47-70); POSITIVE DIFFERENTIAL YES; Platelet Count 116 K/mm3 (150-450); RBC Distribution Width SD 45.7 fl (35.1-43.9); Red Blood Count 3.29 M/mm3 (4.6-6.2); White Blood Count 6.5 K/mm3 (4.4-11.0)
[2019-11-05 17:05] LABS: ALB/GLOB Ratio 1.1 RATIO (0.9-2.4); AST(SGOT) 35 U/L (15-37); Alanine Aminotransfer ALT/SGPT 19 U/L (16-61); Albumin, Serum 3.3 g/dL (3.2-5.0); Alkaline Phosphatase 146 U/L (45-117); Anion Gap 9 (5-15); BUN 8 mg/dL (7-18); BUN/Creat Ratio 10.6 RATIO (10-20); Calcium,Total 8.6 mg/dL (8.5-10.1); Chloride 98 mmol/L (98-107); Creatinine, Serum 0.76 mg/dL (0.70-1.30); EST Glomerular Filtration Rate 112 mL/min (>60); Est Glom Filt Rate - Afr Amer 135 mL/min (>60); Estimated Creatinine Clearance 97.85 ml/min; Globulin 3.1 g/dL (2.2-4.2); Glucose 88 mg/dL (74-106); Lipase 95 U/L (73-393); Potassium 3.6 mmol/L (3.5-5.1); Protein, Total 6.4 g/dL (6.4-8.2); Sodium Level 128 mmol/L (136-145)
[2019-11-05] MEDS: MethylPREDNISolone 125 MG/2 ML Vial IV (17:21)
[2019-11-05] MEDS: Ipratropium/Albuterol Sulfate 3 ML AMPUL.NEB INHALATION (17:21)
[2019-11-05] MEDS: LORazepam 2 MG/ML Syringe IV (17:22)
[2019-11-05 17:35] LABS: Differential Indicated SCAN CRITERIA MET
[2019-11-05 17:44] LABS: International Normalized Ratio 1.2; Partial Thromboplast Time 33.7 Seconds (24.1-36.2); Prothrombin Time (Protime)PT. 14.4 SECONDS (11.7-14.9)
[2019-11-05 17:52] LABS: Lactic Acid 1.3 mmol/L (0.4-1.9)
[2019-11-05 17:59] LABS: Differential Comment SCANNED
--- NOTE | 2019-11-05 18:30 | NURSING ---
[facility] PT DAVID HADLEY WILL FOLLOW UP TOMORROW
[2019-11-05 18:42] LABS: Probe Check PASS; Specimen Processing Control PASS
--- NOTE | 2019-11-05 18:49 | ED.DCSUM_ITS ---
- ER Visit Summary Date of Service: 11/05/19 Chief Complaint: Shortness of breath History of Present Illness: The patient is a 59 M who [place] to the [place]. He reports he has shortness of breath began 9 days ago. States that he was admitted to the hospital for anemia he was transfused 2 units of packed red blo od cells. He reports that initially he felt slight improvement, but now it is back to the way it was previously. He reports that it is much worse when he walks around. There is no change with laying flat. He is used his nebulizer with minimal relief. Patient denies any possible sick exposure. He states that he is [place] phobic and stays at home. Anytime he has to go out he wears a mask. He denies any fever or chills. He reports that he has a chronic cough that is unchanged. He has is nonproductive. He reports he has chest pain that began yesterday. Is a dull constant pain that is increased with coughing. Is 7 on 10 currently 9 out of 10 at worst. Patient reports that he has epigastric abdominal pain that is 7 out of 10 in severity as well. He denies any nausea, vomiting, or diarrhea. He reports that his stool has been black today after taking Pepto-Bismol. He is also taking iron. Patient does report that he usually drinks 6-8 beers per day. He states that he is only had 2 today. He does not want to stop drinking. He has had problems with anemia since the beginning of this year. He has not had endoscopy for this. Physical Examination: Vitals: Stable. Afebrile. General: Well-nourished and well-developed. Head: Normocephalic atraumatic. Neck: Supple, no lymphadenopathy. No JVD. Nontender. Cardiovascular: Regular rate and rhythm. No murmurs. Respiratory: Mild respiratory distress. Moderate wheezing bilaterally with greatly decreased air movement. Abdominal: Soft, nontender, nondistended, normal bowel sounds. No guarding, rebound, or peritoneal signs. Back: Nontender. Extremities: Nontender, 1+ pitting edema of his lower extremities bilaterally. Skin: Normal color, no rash. Neurologic: Alert and oriented ?3. Cranial nerves II through XII are intact. Normal strength and sensation. Psych: Normal affect. Test Results: EKG is sinus at [address] changes. Initial troponin is 0.203. LFTs show alk phos 146. Chem-7 shows a sodium 128. CBC shows a hemoglobin of 7.9, hematocrit of 26.0, platelets 116, stable neutrophils 83, lymphocytes of 6. Alcohol is negative. Chest x-ray shows no acute disease. Emergency Department Course and Treatment: Patient was given albuterol Atrovent aerosols. He continues to have a great deal of wheezing. He was given another albuterol aerosol. He was also given Solu-Medrol and Ativan IV. Treatment Plan: The patient was discussed with the hospitalist, Dr. Gant, who reviewed the patient's recent admission to the hospital. Patient's hemoglobin yesterday was 8.6 and today it is down to 7.9. The patient was seen by Dr. Mcrae while here who feels the patient would require endoscopy by a sandblast or shotblast equipment tender due to the risk from esophageal varices with his alcoholism. The patient was discussed with [facility]. They do not have beds. He was discussed with the [facility]. They do not have beds. He was also discussed with [facility]. They have accepted him in transfer. Disposition: Transferred in improved, but serious condition. Impression: 1. COPD exacerbation. 2. Alcoholism. 3. Anemia. 4. Indeterminate troponin. 5. Hyponatremia. This note was generated with [employer] dictation software. It may contain incorrect words, spelling, and punctuation that were not noted in review of the chart prior to signing ED Disposition - Plan for ED Patient: [facility] [[facility] -
[2019-11-05] MEDS: Albuterol 2.5 MG/3 ML VIAL.NEB. INHALATION (19:30)
--- NOTE | 2019-11-05 20:57 | ED.RN ---
pt pacing in room, refuses to leave monitor on. MD made aware. MD ordered phenobarb. Pt educated to stay in bed and wear his monitor and o2 per md order. pt now resting in bed. Pt has no further needs at this time.
--- NOTE | 2019-11-05 20:59 | ED.RN ---
sepsis completed no further criteria, DR. delgado aware.
[2019-11-05] MEDS: Phenobarbital 32.4 MG Tablet 97.2 MG PO (21:05)
[2019-11-05] MEDS: Morphine 4 MG/ML Syringe IV (23:03)
== END 2019-11-05 23:43 | disposition short-term general hospital (02) ==
LOC: ED 16:38
PROVIDERS: Emergency Provider Emergency Medicine
DX: J44.1 Chronic obstructive pulmonary disease with (acute) exacerbation (principal); F10.20 Alcohol dependence, uncomplicated; D64.9 Anemia, unspecified; E87.1 Hypo-osmolality and hyponatremia; I10 Essential (primary) hypertension; J44.9 Chronic obstructive pulmonary disease, unspecified; E78.00 Pure hypercholesterolemia, unspecified; Z86.73 Personal history of transient ischemic attack (TIA), and cerebral infarction without residual deficits; F17.210 Nicotine dependence, cigarettes, uncomplicated; Y90.9 Presence of alcohol in blood, level not specified
CPT/HCPCS: 71045; 80053; 80320; 83605; 83690; 84484; 85025; 85610; 85730; 87040; 87635; 93005; 94640; 94799; 96374; 96375; 99285; A4216; G0480; U0003

== ENCOUNTER → 2019-11-18 12:17 | Outpatient (CLI) | payer MEDICARE, MEDICAID, SELFPAY ==
[2019-11-05 16:02] VITALS: BMI 32.1
== END ==
PROVIDERS: Referring Provider Dermatology; Visit Provider Dermatology
DX: L21.8 Other seborrheic dermatitis (principal); L02.424 Furuncle of left upper limb; L02.423 Furuncle of right upper limb; L02.222 Furuncle of back [any part, except buttock and flank]; I85.01 Esophageal varices with bleeding
CPT/HCPCS: 87070; 87205

== ENCOUNTER → 2020-01-12 | Outpatient (CLI) | payer MEDICARE, MEDICAID, SELFPAY ==
[2019-11-05 16:02] VITALS: BMI 32.1
[2020-01-12 12:22] LABS: Hematocrit 36.6 % (40-54); Hemoglobin 10.8 g/dL (13.0-16.5); Mean Corp Hgb Conc 29.5 g/dL (32-36); Mean Corpuscular Hgb 25.2 pg (27.0-32.0); Mean Corpuscular Volume 85.5 fL (80-94); Mean Platelet Vol. 9.8 fl (6.2-12.0); POSITIVE MORPHOLOGY YES; Platelet Count 151 K/mm3 (150-450); RBC Distribution Width CV 22.4 % (11.6-14.6); RBC Distribution Width SD 69.8 fl (35.1-43.9); Red Blood Count 4.28 M/mm3 (4.6-6.2)
[2020-01-12 12:32] LABS: Scan Indicated on CBC? Y/N YES- FLAGS NOTED
[2020-01-12 12:44] LABS: International Normalized Ratio 1.1; Partial Thromboplast Time 31.7 Seconds (24.1-36.2); Prothrombin Time (Protime)PT. 13.6 SECONDS (11.7-14.9)
[2020-01-12 13:02] LABS: AST(SGOT) 55 U/L (15-37); Alanine Aminotransfer ALT/SGPT 24 U/L (16-61); Albumin, Serum 3.7 g/dL (3.2-5.0); Alkaline Phosphatase 256 U/L (45-117); Anion Gap 8 (5-15); BUN 14 mg/dL (7-18); BUN/Creat Ratio 14.6 RATIO (10-20); Chloride 99 mmol/L (98-107); Creatinine, Serum 0.96 mg/dL (0.70-1.30); EST Glomerular Filtration Rate 85 mL/min (>60); Est Glom Filt Rate - Afr Amer 103 mL/min (>60); Globulin 3.7 g/dL (2.2-4.2); Glucose 93 mg/dL (74-106); Potassium 4.1 mmol/L (3.5-5.1); Protein, Total 7.4 g/dL (6.4-8.2); Sodium Level 132 mmol/L (136-145)
[2020-01-12 13:24] LABS: Hepatitis B Surface Antigen Non-Reactive (Nonreactive); Hepatitis C Antibody Non-Reactive (Nonreactive)
[2020-01-13 10:28] LABS: AFP, Tumor Marker 2.7 ng/mL (0.0-8.3)
== END | disposition home or self-care (01) ==
LOC: MTLAB 10:25
PROVIDERS: Referring Provider Internal Medicine Gastroenterology; Visit Provider Internal Medicine Gastroenterology
DX: K74.60 Unspecified cirrhosis of liver (principal)
CPT/HCPCS: 36415; 80053; 82105; 85027; 85610; 85730; 86803; 87340

== ENCOUNTER 2020-06-12 20:46 | Observation (INO) | payer OTHER, MEDICARE, MEDICAID, SELFPAY ==
[2019-11-05 16:02] VITALS: BMI 32.1
[2020-06-12 20:47] VITALS: BP 70/45; PULSE 89; RESP 16; TEMP 36.9; O2SAT 98; BMI 28.9
--- NOTE | 2020-06-12 20:50 | EKG12_ITS ---
Test Reason : BACK PAIN Blood Pressure : / mmHG Vent. Rate : 079 BPM Atrial Rate : 079 BPM P-R Int : 146 ms QRS Dur : 088 ms QT Int : 408 ms P-R-T Axes : 017 080 034 degrees QTc Int : 467 ms Normal sinus rhythm Normal ECG Confirmed by SEDA WASHINGTON, FAIZAN ([id number]), dictionary editor SUE POMPA ([id number]) on 06/13/2020 10:50:54 AM Referred By: REGI Confirmed By:FAIZAN STACK MD
[2020-06-12 20:51] VITALS: BP 70/45; PULSE 89; RESP 16; TEMP 36.9; O2SAT 98
--- NOTE | 2020-06-12 20:51 | CT_ITS ---
STUDY: CT LUMBAR SPINE WITH CONTRAST REASON FOR EXAM: Male, 59 years old. Lower back pain RADIATION DOSAGE (If Supplied By Facility): CTDIvol = ( 16.74 ) mGy, DLP = ( 457.02 ) mGycm TECHNIQUE: The patient was scanned in a multi detector CT scanner. High resolution transaxial imaging was performed following the intravenous administration of IV 100mL Isovue-300. Images were obtained from T12 to S1. Sagittal and coronal images were reconstructed. Individualized dose optimization techniques were used for this CT. COMPARISON: CT abdomen and pelvis dated 06/18/2017 FINDINGS: Normal lumbar lordosis. There is no substantial scoliosis. Normal vertebrae of the lumbar spine. No acute fracture or listhesis. Stable mild endplate degenerative change and disc space height loss with prominent disc bulge at L5-S1. No evidence of critical central canal stenosis or neural foraminal narrowing. Normal visualized paraspinous soft tissue structures. No abnormal enhancement CT/Spine Lumbar WITH Contrast IMPRESSION: Degenerative changes without acute findings. No evidence of abnormal enhancement. No critical central canal stenosis or neural foraminal narrowing Electronically Signed: Kel Springer DO at 22:17 EST Tel , Service support ,
[2020-06-12] MEDS: 0.9% Normal Saline 1,000 ML 1000 ML IV (21:10)
[2020-06-12 21:14] LABS: Absolute Lymphocyte Count 1.46 X10^3/uL (0.83-4.51); Absolute Neutrophil Count 7.2 X10^3/uL (2.0-7.7); Basophil# 0.04 X10^3/uL; Basophil% 0.4 % (0-1); Eosinophil# 0.06 X10^3/uL; Eosinophils% 0.6 % (0-5); Hematocrit 28.1 % (40-54); Hemoglobin 8.4 g/dL (13.0-16.5); Lymphocyte # 1.46 X10^3/ul (4.0); Lymphocyte % 15.1 % (19-41); Mean Corp Hgb Conc 29.9 g/dL (32-36); Mean Corpuscular Hgb 26.8 pg (27.0-32.0); Mean Corpuscular Volume 89.8 fL (80-94); Mean Platelet Vol. 9.3 fl (6.2-12.0); Monocyte# 0.86 X10^3/uL; Monocyte% 8.9 % (0-10); NRBC Flagged by Analyzer 0 % (0-5); Neutrophil % 74.4 % (47-70); Platelet Count 147 K/mm3 (150-450); RBC Distribution Width CV 15.9 % (11.6-14.6); RBC Distribution Width SD 52.2 fl (35.1-43.9); Red Blood Count 3.13 M/mm3 (4.6-6.2); White Blood Count 9.7 K/mm3 (4.4-11.0)
[2020-06-12 21:32] LABS: ALB/GLOB Ratio 0.8 RATIO (0.9-2.4); AST(SGOT) 31 U/L (15-37); Alanine Aminotransfer ALT/SGPT 20 U/L (16-61); Albumin, Serum 2.9 g/dL (3.2-5.0); Alkaline Phosphatase 155 U/L (45-117); Anion Gap 13 (5-15); BUN 18 mg/dL (7-18); BUN/Creat Ratio 14.2 RATIO (10-20); Calcium,Total 8.3 mg/dL (8.5-10.1); Chloride 101 mmol/L (98-107); Creatinine, Serum 1.27 mg/dL (0.70-1.30); EST Glomerular Filtration Rate 62 mL/min (>60); Est Glom Filt Rate - Afr Amer 75 mL/min (>60); Estimated Creatinine Clearance 58.55 ml/min; Globulin 3.7 g/dL (2.2-4.2); Glucose 97 mg/dL (74-106); Protein, Total 6.6 g/dL (6.4-8.2); Sodium Level 134 mmol/L (136-145)
[2020-06-12 21:44] LABS: Lactic Acid 4.7 mmol/L (0.4-1.9)
--- NOTE | 2020-06-12 21:54 | RAD_ITS ---
STUDY: X-RAY CHEST REASON FOR EXAM: Male, 59 years old. weakness TECHNIQUE: Single AP portable view of the chest. COMPARISON: 11/05/2019 FINDINGS: The lungs are clear and expanded. There is no demonstrated pleural abnormality. There is borderline cardiomegaly. Normal mediastinum and emma. Normal visualized pulmonary arteries. Normal visualized aortic arch and descending thoracic aorta. Normal visualized thoracic spine. Normal visualized ribs, clavicles, and shoulders. There is no demonstrated abnormality of the visualized soft tissue structures of the upper abdomen. RAD/Chest 1 View (Portable) IMPRESSION: Normal x-ray examination of the chest. Electronically Signed: Kel Springer DO at 22:13 EST Tel , Service support ,
[2020-06-12 22:14] VITALS: BP 131/77; PULSE 84; RESP 16; TEMP 36.9; O2SAT 99
[2020-06-12 22:25] LABS: International Normalized Ratio 1.1; Prothrombin Time (Protime)PT. 14.1 SECONDS (11.7-14.9)
[2020-06-12 22:26] LABS: Partial Thromboplast Time 30.6 Seconds (24.1-36.2)
[2020-06-12] MEDS: 0.9% Normal Saline 1,000 ML 999 ML IV (22:29)
[2020-06-12] MEDS: oxyCODONE 5 MG Tablet PO (22:29)
--- NOTE | 2020-06-12 22:29 | ED.VIS.GEN ---
History of Present Illness Chief Complaint: Back Narrative: Patient presents with generalized weakness as well as back pain, he has left back pain with radiation to his left leg. He arrives via EMS. He admits to taking a muscle relaxant and drinking 5 beers but his pain is still there. He denies fever chills cough congestion or urinary symptoms he has no urinary retention symptoms. The pain does radiate to his left leg. He has no weakness in that leg. The pain started over a month ago and was placed on steroids per his doctor. Past medical history: Reviewed and unremarkable Medications: Reviewed Social history: Daily drinker, smoker Review of systems: All systems negative except as indicated General: Denies: Fever. Generalized weakness as in HPI Eyes: Denies: Visual changes - bilaterally ENT: Denies: Rhinorrhea, Sore throat Cardiovascular: Denies: Chest pain Respiratory: Denies: Dyspnea, Cough Gastrointestinal: Denies: Abdominal pain, Nausea, Vomiting Genitourinary: Denies: Dysuria Musculoskeletal: Denies: Myalgias Back: Left-sided back pain as in HPI Skin: Denies: Rash Neurological: Denies: Headache, no focal weakness Psych: Reports: negative Hematologic: Denies: Easy bruising, Easy bleeding Physical exam General: Does not appear in significant distress he is relatively comfortable. However he is hypotensive on the monitor Head: Normocephalic, Atraumatic Eyes: Conjunctiva not pale ENT: Dry mucous membranes Neck: Supple, Nontender, No lymphadenopathy Cardiovascular: Regular rate, Regular rhythm Respiratory: No distress, CTA bilaterally Abdomen: Soft, Nontender, Nondistended Back: There is left paraspinal tenderness to palpation. No spinal tenderness. Extremities: Nontender, No edema Skin: Normal color, No rash Neurological: Normal strength and sensation. Equal 2+ patellar reflexes. Equal 1+ Achilles reflexes. Normal plantar flexion and dorsiflexion of both the feet and great toes. Negative straight leg test, when I raise his leg he has pain into his buttock but not into his leg. Psychological: Normal affect Past Medical History - Allergies and Home Meds Allergies/Adverse Reactions: Allergies lisinopril Allergy (Severe, Verified 06/12/20 20:57) Angioedema bee venom protein (honey bee) Allergy (Verified 06/12/20 20:57) Swelling Primary Care Physician: [facility],[place] [Primary Care Provider] - Surgical History: - - surgery on left foot due to accident, carotid endarterectemy on the right side. Smoking Status: Current every day smoker - Family History Maternal Family History: Reports: Hypertension, No pertinent history - denies cancer, cad, DM, stroke, - - Mother had a history of alcoholism but quit drinking at the age of 55 Paternal Family History: Reports: - - alcoholism, of suicide Physical Exam Vital Signs/Narrative: Vital Signs Temp Pulse Resp BP Pulse Ox 06/12/20 22:14 98.4 F 84 16 131/77 H 99 06/12/20 20:51 98.4 F 89 16 70/45 L 98 06/12/20 20:47 98.4 F 89 16 70/45 L 98 Diagnostic/Tx/Re-eval Chest X-Ray - ED: 1 View, Normal, Heart, Lungs - Medical Decision Making Patient has work-up consistent with significant lactic acidosis, his blood pressure significantly improved after IV fluids I do not find a source of infection I will treat him with antibiotics although I am unsure about the etiology at this time. I will need to admit him since presuming he has an infection this would be considered septic shock. Sepsis reperfusion was done by me after IV fluids, patient significantly improved he is perfusing well has a normal blood pressure - Critical Care Time Critical care time (excluding procedures): 30-74 minutes - Patient has shock at first it was undifferentiated I am wondering about a septic shock. I spent time at the bedside, frequent checks. I consulted with medicine. ED Disposition - Plan for ED Patient: Disposition: Acute Care [facility] Diagnosis: Septic shock, Back pain [facility]errals[facility] [Primary Care Provider] -
[2020-06-12 22:30] VITALS: BP 131/77; PULSE 84; RESP 21; O2SAT 98
[2020-06-12 22:48] LABS: Bacteria 0 SEEN /hpf (None Seen); Mucous, Urine 0 SEEN /hpf (<or=2+); Red Blood Cells-Urine 0 SEEN /hpf (0-5)
[2020-06-12 22:49] LABS: Color, Urine Yellow (Yellow); Glucose, Dipstick Normal (Normal); Ketone-Dipstick Negative (Negative); Leukocyte Esterase-Dipstick 25 /ul (Negative); Nitrite-Dipstick Negative (Negative); Occult Blood-Urine Negative /ul (Negative); Protein-Dipstick 30 mg/dl (Negative); Urine Bilirubin Dipstick Negative (Negative); Urine Clarity Clear (Clear); Urine Urobilinogen Normal (Normal)
[2020-06-12 22:55] LABS: Squamous Epithelial Cells - UA 0-5 SEEN /hpf (0-5); White Blood Cells 0-5 SEEN /hpf (0-5)
[2020-06-12 23:00] VITALS: BP 154/84; PULSE 51; RESP 16; TEMP 36.8; O2SAT 99
[2020-06-13] VITALS (11 sets, daily range): BP systolic 149–178; BP diastolic 81–99; PULSE 91–101; RESP 15–24; TEMP 36.6–36.9; O2SAT 95–99; BMI 28.3
--- NOTE | 2020-06-13 00:05 | HP.PCM_ITS ---
Problem List (1) Septic shock Status: Inactive (2) Back pain Status: Acute (3) Acute on chronic anemia Status: Chronic (4) Chronic iron deficiency anemia Status: Chronic (5) Thrombocytopenia Status: Chronic Comment: Suspect secondary to the toxic effects of EtOH on bone marrow (6) Grade III diastolic dysfunction Status: Chronic (7) Pulmonary hypertension Status: Chronic Comment: Moderate with a RV systolic estimated at 60 (8) Mitral regurgitation Status: Chronic Qualifiers: Cardiac valve disease etiology: nonrheumatic Qualified Code(s): I34.0 - Nonrheumatic mitral (valve) insufficiency (9) Hiatal hernia Status: Chronic Comment: small (10) Esophageal varices determined by endoscopy Status: Chronic Comment: stage II varices on EGD 04/28/[address] Abdullahi. Esophageal varices due to chronic alcohol dependence and chronic liver disease. (11) Anxiety Status: Chronic (12) Pancreatitis Status: Chronic Qualifiers: Pancreatitis type: alcohol induced (13) Stroke Status: Chronic Qualifiers: Laterality of affected vessel: right (14) Alcohol abuse Status: Chronic (15) Depression Status: Chronic (16) COPD (chronic obstructive pulmonary disease) Status: Chronic (17) Hyperlipemia Status: Chronic (18) GERD (gastroesophageal reflux disease) Status: Chronic (19) HTN (hypertension) Status: Chronic (20) Colonic polyp Status: Chronic (21) Colon, diverticulosis Status: Chronic (22) Nicotine addiction Status: Chronic Qualifiers: Nicotine product type: cigarettes (23) RENETTA (obstructive sleep apnea) Status: Chronic Comment: non-compliant with PAP (24) Carotid stenosis Status: Chronic Qualifiers: Laterality: bilateral Qualified Code(s): I65.23 - Occlusion and stenosis of bilateral carotid arteries Comment: has had a R CEA History of Present Illness Date of Admission: 06/13/20 Chief Complaint: LOWER BACK PAIN The patient is a 59 year old M with a significant history of alcoholism; and multiple strokes who presents emergency department with excruciating lower back pain. He describes back pain as shooting. The back pain radiates to his left leg. He denies any ameliorating factors. His pain worsens with lying down. He completed a course of steroid on the same day of presentation. He is on muscle relaxants. However he thinks it in the muscle relaxant only helped him to sleep but has not helped with his pain. At the emergency department his lactic acid was elevated at 4.2. Past Medical History Past Medical History (Chronic Problems): Chronic Problems Acute on chronic anemia (Chronic) Chronic iron deficiency anemia (Chronic) Thrombocytopenia (Chronic) Suspect secondary to the toxic effects of EtOH on bone marrow Grade III diastolic dysfunction (Chronic) Pulmonary hypertension (Chronic) Moderate with a RV systolic estimated at 60 Mitral regurgitation (Chronic) Hiatal hernia (Chronic) small Esophageal varices determined by endoscopy (Chronic) stage II varices on EGD 04/28/[address] Abdullahi. Esophageal varices due to chronic alcohol dependence and chronic liver disease. Anxiety (Chronic) Pancreatitis (Chronic) Stroke (Chronic) Alcohol abuse (Chronic) Depression (Chronic) COPD (chronic obstructive pulmonary disease) (Chronic) Hyperlipemia (Chronic) GERD (gastroesophageal reflux disease) (Chronic) HTN (hypertension) (Chronic) Colonic polyp (Chronic) Colon, diverticulosis (Chronic) Nicotine addiction (Chronic) RENETTA (obstructive sleep apnea) (Chronic) non-compliant with PAP Carotid stenosis (Chronic) has had a R CEA Allergies lisinopril Allergy (Severe, Verified 06/12/20 20:57) Angioedema bee venom protein (honey bee) Allergy (Verified 06/12/20 20:57) Swelling Home Medications: Ambulatory Orders Medication Instructions Recorded Clopidogrel Bisulfate [Plavix] 75 mg PO DAILY 09/10/16 Folic Acid 1 mg PO DAILY@0800 09/10/16 Budesonide/Formoterol Fumarate 2 puff IH BID 04/25/19 [Symbicort 160-4.5 Mcg Inhaler] Cholecalciferol (VIT D3) [Vitamin 2,000 unit PO DAILY 04/25/19 D3] Metoprolol Tartrate [Lopressor 100 mg PO BID 05/25/19 (beta ran)] Acetaminophen [Tylenol Tablet] 650 mg PO Q6H PRN PRN tab 06/05/19 Amlodipine [Norvasc] 5 mg PO DAILY 06/05/19 Atorvastatin Calcium [Lipitor] 80 mg PO QHS 06/05/19 Albuterol Inhaler [Ventolin Hfa] 2 puff INHALATION Q4H PRN PRN #1 06/16/19 inhaler Ascorbic Acid [Vitamin C] 500 mg PO BIDCM #60 tab 06/16/19 Citalopram [Celexa] 20 mg PO DAILY #30 tab 06/16/19 Magnesium Oxide [Mag-Ox 400] 400 mg PO BIDCM #60 tab 06/16/19 Pantoprazole Sodium [Protonix] 20 mg PO BID tab 06/16/19 Thiamine Hydrochloride [Vitamin B1] 100 mg PO DAILYCM #30 tab 06/16/19 buPROPion XL [Wellbutrin Xl] 150 mg PO DAILY #30 tablet.xl 06/16/19 busPIRone [Buspar] 20 mg PO BID 11/03/19 Surgical History: - - surgery on left foot due to accident, carotid endarterectemy on the right side. Psychiatric History: Anxiety, Depression Smoking Status: Current every day smoker - *Family History Maternal History Items: Hypertension, - - Mother had a history of alcoholism but quit drinking at the age of 55 Paternal History Items: - - alcoholism, of suicide Review of Systems Constitutional: Denies: Chills, Fever, Weight Change HEENT: Denies: Head Aches, Sinus Congestion, Sinus Drainage Cardiovascular: Denies: Chest Pain, Palpitations Respiratory: Denies: Cough, Shortness of breath at rest, Sputum production Gastrointestinal: Denies: Abdominal Pain, Nausea, Vomiting Genitourinary: Denies: Dysuria Musculoskeletal: Reports: Back Pain, Leg Pain. Denies: Joint Pain, Joint Tenderness Skin: Denies: Rash, Wounds Neurological: Denies: Numbness, Tingling, Focal weakness Psychiatric: Denies: Anxiety, Depression, Homicidal Ideations, Suicidal Ideations Hematologic/ Lymphatic: Denies: Easy Bruising, Easy Bleeding VTE Information - Inpt Only VTE Present on Admission: No VTE Mechan Device Prophylaxis: None VTE Pharm Prophylaxis ordered?: Yes Patient Problems: Active and Suspected Problems Back pain (Acute) - Physical Exam Vitals/I&O's: Vital Signs Temp Pulse Resp BP Pulse Ox 98.2 F 51 L 16 154/84 H 99 06/12/20 23:00 06/12/20 23:00 06/12/20 23:00 06/12/20 23:00 06/12/20 23:00 Oxygen Delivery Method Room Air Weight: 83.7 kg Body Mass Index (BMI) 28.9 Finger Stick Blood Glucose 120 Intake and Output for Last 24 Hours 06/11/20 06/12/20 06/13/20 23:59 23:59 23:59 Intake Total 1000 / 1000 Balance 1000 / 1000 General: Alert, Oriented x3, Cooperative HEENT: Atraumatic, PERRLA, EOMI, Normocephalic Neck: Supple, No JVD, Negative Carotid Bruits Lungs: Clear to auscultation, Normal air movement Cardiovascular: Regular rate, Normal S1, Normal S2, No murmurs Abdomen: Bowel Sounds Present, Soft, Non Tender Extremities: No edema, Capillary Refill Less than 3 Seconds Skin: No rashes, No breakdown Musculoskeletal: No Tenderness to Palpation of Joints or Extremities, - - Positive straight leg raise at the left side. Neurological: Cranial nerves II-XII grossly intact Psych/Mental Status: Normal Affect, Appropriate Laboratory Results 06/12/20 21:06: WBC 9.7, RBC 3.13 L, Hgb 8.4 L, Hct 28.1 L, MCV 89.8, MCH 26.8 L , MCHC 29.9 L, RDW Std Deviation 52.2 H, RDW Coeff of Donnie 15.9 H, Plt Count 147 L, MPV 9.3, Immature Gran % (Auto) 0.600, Neut % (Auto) 74.4 H, Lymph % (Auto) 15.1 L, [place] % (Auto) 8.9, Eos % (Auto) 0.6, Baso % (Auto) 0.4, Absolute Neuts (auto) 7.2, Absolute Lymphs (auto) 1.46, Nucleated RBC % 0 06/12/20 21:06: Sodium 134 L, Potassium 4.0, Chloride 101, Carbon Dioxide 20.0 L , Anion Gap 13, BUN 18, Creatinine 1.27, Estim Creat Clear Calc 58.55, Est GFR (MDRD) Af Amer 75, Est GFR (MDRD) Non-Af 62, BUN/Creatinine Ratio 14.2, Glucose 97, Calcium 8.3 L, Total Bilirubin 0.50, AST 31, ALT 20, Alkaline Phosphatase 155 H, Troponin I 0.021, Total Protein 6.6, Albumin 2.9 L, Globulin 3.7, Albumin/Globulin Ratio 0.8 L 06/12/20 21:06: Lactic Acid 4.7 H* 06/12/20 21:06: PT 14.1, INR 1.1, APTT 30.6 06/12/20 22:38: Urine Color Cancelled, Urine Clarity Cancelled, Urine pH Cancelled, Ur Specific [place] Cancelled, U Specif Grav (Refrac) Cancelled, Urine Protein Cancelled, Urine Glucose (UA) Cancelled, Urine Ketones Cancelled, Urine Occult Blood Cancelled, Urine Nitrite Cancelled, Urine Bilirubin Cancelled, Urine Urobilinogen Cancelled, Ur Leukocyte Esterase Cancelled, Urine RBC Cancelled, Urine WBC Cancelled, Ur Squamous Epith Cells Cancelled, Ur Transition Epith Cell Cancelled, Ur Renal Epithelial Cell Cancelled, Calcium Oxalate Crystal Cancelled, Uric Acid Crystals Cancelled, Triple Phos Crystals Cancelled, Other Crystals Cancelled, Amorphous Sediment Cancelled, Urine Bacteria Cancelled, Hyaline Casts Cancelled, Fine Granular Casts Cancelled, Coarse Granular Casts Cancelled, Waxy Casts Cancelled, RBC Casts Cancelled, WBC Casts Cancelled, Urine Mucus Cancelled, Urine Trichomonas Cancelled, Urine Yeast Cancelled 06/12/20 22:38: Urine Color Yellow, Urine Clarity Clear, Urine pH 6.0, Ur Specific [place] 1.010, Urine Protein 30 H, Urine Glucose (UA) Normal, Urine Ketones Negative, Urine Occult Blood Negative, Urine Nitrite Negative, Urine Bilirubin Negative, Urine Urobilinogen Normal, Ur Leukocyte Esterase 25 H, Urine RBC 0 SEEN, Urine WBC 0-5 SEEN, Ur Squamous Epith Cells 0-5 SEEN, Urine Bacteri a 0 SEEN, Urine Mucus 0 SEEN Assessment/Plan All Active Problems Back pain (Acute) GI bleed (Resolved) Hypomagnesemia (Resolved) Hepatitis C (Ruled-out) The patient is a 59 year old M with a significant history of alcoholism; and multiple strokes who presents to the emergency department with excruciating lower back pain and found to have hypotension and lactic acidosis. Acute back pain Lumbar spine CT with no acute findings. Started on oxycodone at emergency department and continued. Bowel protocol and antiemetics in place. Hypotension and lactic acidosis Likely secondary to alcoholism. Counselled. We will hold off further antibiotics at this time. Follow urine culture and blood culture ordered at the emergency department. Impression of chest x-ray by radiology: Normal x-ray examination of the chest. Actual checks x-ray image was independently interpreted. I agree with radiologist interpretation. Home metoprolol and amlodipine held. Trend lactic acid. Alcoholism Counseled. Placed on phenobarbital taper and as needed Ativan with CIWA. Pancytopenia With chronic anemia and thrombocytopenia. Likely secondary to alcoholism. Counselled. Depression/anxiety Celexa continued Buspirone continued. GERD Protonix continued. History of CVA Plavix continued DVT prophylaxis Lovenox continued OBSV E&M: [id number] Initial observation care L3
[2020-06-13 01:09] LABS: Reflex Lactate? Y
[2020-06-13] MEDS: 0.9% Normal Saline 1,000 ML 1000 ML IV (01:17)
[2020-06-13 01:39] LABS: Lactic Acid 1.3 mmol/L (0.4-1.9)
[2020-06-13] MEDS: 0.9% Normal Saline 1,000 ML 75 ML IV (02:33)
[2020-06-13] MEDS: Phenobarbital 32.4 MG Tablet 97.2 MG PO ×3 (02:34→09:33)
[2020-06-13] MEDS: oxyCODONE 5 MG Tablet PO ×2 (06:04→11:19)
[2020-06-13 06:33] LABS: Absolute Lymphocyte Count 1.09 X10^3/uL (0.83-4.51); Absolute Neutrophil Count 5.4 X10^3/uL (2.0-7.7); Basophil# 0.05 X10^3/uL; Basophil% 0.7 % (0-1); Eosinophils% 1.4 % (0-5); Hemoglobin 8.4 g/dL (13.0-16.5); Lymphocyte # 1.09 X10^3/ul (4.0); Lymphocyte % 14.8 % (19-41); Mean Corpuscular Hgb 26.4 pg (27.0-32.0); Mean Corpuscular Volume 88.1 fL (80-94); Mean Platelet Vol. 9.3 fl (6.2-12.0); Monocyte# 0.65 X10^3/uL; Monocyte% 8.8 % (0-10); NRBC Flagged by Analyzer 0 % (0-5); Neutrophil # 5.43 X10^3/uL (2.7-7.7); Neutrophil % 73.8 % (47-70); Platelet Count 120 K/mm3 (150-450); RBC Distribution Width CV 15.9 % (11.6-14.6); RBC Distribution Width SD 51.8 fl (35.1-43.9); Red Blood Count 3.18 M/mm3 (4.6-6.2); White Blood Count 7.4 K/mm3 (4.4-11.0)
[2020-06-13] MEDS: hydrOXYzine PAM 25 MG Capsule 50 MG PO (06:50)
[2020-06-13 06:52] LABS: Anion Gap 7 (5-15); BUN 16 mg/dL (7-18); BUN/Creat Ratio 16.7 RATIO (10-20); Calcium,Total 8.1 mg/dL (8.5-10.1); Chloride 110 mmol/L (98-107); Creatinine, Serum 0.96 mg/dL (0.70-1.30); EST Glomerular Filtration Rate 85 mL/min (>60); Est Glom Filt Rate - Afr Amer 103 mL/min (>60); Estimated Creatinine Clearance 77.46 ml/min; Glucose 99 mg/dL (74-106); Potassium 4.2 mmol/L (3.5-5.1); Sodium Level 138 mmol/L (136-145)
[2020-06-13] MEDS: Folic Acid 1 MG Tablet PO (09:28)
[2020-06-13] MEDS: Enoxaparin 40 MG/0.4 ML Syringe SC (09:29)
[2020-06-13] MEDS: Thiamine Hydrochloride 100 MG Tablet PO (09:29)
--- NOTE | 2020-06-13 11:41 | DCINST_ITS ---
<PepeClaudiaDebbie HUB CUTTER APPRENTICE - Last Filed: 06/13/20 11:41> - Discharge Diagnoses Current Active Problems: Current Active and Chronic Problems Back pain (Acute) Acute on chronic anemia (Chronic) Chronic iron deficiency anemia (Chronic) Thrombocytopenia (Chronic) Suspect secondary to the toxic effects of EtOH on bone marrow Grade III diastolic dysfunction (Chronic) Pulmonary hypertension (Chronic) Moderate with a RV systolic estimated at 60 Mitral regurgitation (Chronic) Hiatal hernia (Chronic) small Esophageal varices determined by endoscopy (Chronic) stage II varices on EGD 04/28/[address] Abdullahi. Esophageal varices due to chronic alcohol dependence and chronic liver disease. Anxiety (Chronic) Pancreatitis (Chronic) Stroke (Chronic) Alcohol abuse (Chronic) Depression (Chronic) COPD (chronic obstructive pulmonary disease) (Chronic) Hyperlipemia (Chronic) GERD (gastroesophageal reflux disease) (Chronic) HTN (hypertension) (Chronic) Colonic polyp (Chronic) Colon, diverticulosis (Chronic) Nicotine addiction (Chronic) RENETTA (obstructive sleep apnea) (Chronic) non-compliant with PAP Carotid stenosis (Chronic) has had a R CEA Allergies/Adverse Reactions: Allergies lisinopril Allergy (Severe, Verified 06/13/20 01:54) Angioedema bee venom protein (honey bee) Allergy (Verified 06/13/20 01:54) Swelling Medications to take at Discharge Clopidogrel Bisulfate [Plavix] 75 mg PO DAILY 09/10/16 Folic Acid 1 mg PO DAILY@0800 09/10/16 Budesonide/Formoterol Fumarate [Symbicort 160-4.5 Mcg Inhaler] 2 puff IH BID 04/25/19 Cholecalciferol (VIT D3) [Vitamin D3] 2,000 unit PO DAILY 04/25/19 Metoprolol Tartrate [Lopressor (beta ran)] 100 mg PO BID 05/25/19 Acetaminophen [Tylenol Tablet] 650 mg PO Q6H PRN PRN tab 06/05/19 Amlodipine [Norvasc] 5 mg PO DAILY 06/05/19 Atorvastatin Calcium [Lipitor] 80 mg PO QHS 06/05/19 Albuterol Inhaler [Ventolin Hfa] 2 puff INHALATION Q4H PRN PRN #1 inhaler 06/16/19 Ascorbic Acid [Vitamin C] 500 mg PO BIDCM #60 tab 06/16/19 Citalopram [Celexa] 20 mg PO DAILY #30 tab 06/16/19 Magnesium Oxide [Mag-Ox 400] 400 mg PO BIDCM #60 tab 06/16/19 Pantoprazole Sodium [Protonix] 20 mg PO BID tab 06/16/19 Thiamine Hydrochloride [Vitamin B1] 100 mg PO DAILYCM #30 tab 06/16/19 buPROPion XL [Wellbutrin Xl] 150 mg PO DAILY #30 tablet.xl 06/16/19 busPIRone [Buspar] 20 mg PO BID 11/03/19 Gabapentin [Neurontin] 300 mg PO Q8H PRN PRN 7 Days #21 cap 06/13/20 Lidocaine [Lidoderm Patch] 1 patch TOPICAL DAILY 10 Days #10 patch 06/13/20 Nicotine [Nicoderm Cq] 21 mg TD DAILY 30 Days #30 patch 06/13/20 Primary Care Physician: [facility],[place] [Primary Care Provider] - Test Results: Test results from this visit will be discussed in further detail at your follow- up appointment, if applicable. <Prachi Skaggs - Last Filed: 06/13/20 13:54> - Discharge Diagnoses Current Active Problems: Current Active and Chronic Problems Back pain (Acute) Acute on chronic anemia (Chronic) Chronic iron deficiency anemia (Chronic) Thrombocytopenia (Chronic) Suspect secondary to the toxic effects of EtOH on bone marrow Grade III diastolic dysfunction (Chronic) Pulmonary hypertension (Chronic) Moderate with a RV systolic estimated at 60 Mitral regurgitation (Chronic) Hiatal hernia (Chronic) small Esophageal varices determined by endoscopy (Chronic) stage II varices on EGD 04/28/[address] Abdullahi. Esophageal varices due to chronic alcohol dependence and chronic liver disease. Anxiety (Chronic) Pancreatitis (Chronic) Stroke (Chronic) Alcohol abuse (Chronic) Depression (Chronic) COPD (chronic obstructive pulmonary disease) (Chronic) Hyperlipemia (Chronic) GERD (gastroesophageal reflux disease) (Chronic) HTN (hypertension) (Chronic) Colonic polyp (Chronic) Colon, diverticulosis (Chronic) Nicotine addiction (Chronic) RENETTA (obstructive sleep apnea) (Chronic) non-compliant with PAP Carotid stenosis (Chronic) has had a R CEA Reason(s) for Visit for Discharge Instructions: Back pain You will use the following diet at home:: Cardiac Your food should be the consistency of: Regular Your liquids should be the consistency of: Regular/Thin Discharge Activity: Return to Normal Activity Additional Instructions: Take note of changes in your medications. Continue with your outpatient therapy as scheduled. You can take some Tylenol as needed for pain. I have also prescribed some Lidoderm patches to apply to the back for pain. Please follow up with your Primary Care Physician in: within 2 weeks Test Results: Test results from this visit will be discussed in further detail at your follow- up appointment, if applicable. Proposed Discharge Date: 06/13/20
--- NOTE | 2020-06-13 14:04 | PCM.DC.SUM ---
<Debbie Cantu STOCK HAND[employer]ER FLOORPERSON - Last Filed: 06/13/20 14:11> Discharge Date and Diagnosis - Problem List Patient Problems: Active and Suspected Problems Back pain (Acute) Date of Admission: 06/13/20 Date of Discharge: 06/13/20 - Primary Discharge Diagnosis Acute Problems: Active Problems 1. Acute on chronic back pain 2. Hypotension 3. Lactic acidosis 4. Chronic alcoholism 5. Chronic pancytopenia/Anemia 6. Depression/anxiety/agoraphobia 7. GERD 8. History of CVA 9. Chronic COPD 10. 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 Abdullahi. Esophageal varices due to chronic alcohol dependence and chronic liver disease. Anxiety (Chronic) Pancreatitis (Chronic) Stroke (Chronic) Alcohol abuse (Chronic) Depression (Chronic) COPD (chronic obstructive pulmonary disease) (Chronic) Hyperlipemia (Chronic) GERD (gastroesophageal reflux disease) (Chronic) HTN (hypertension) (Chronic) Colonic polyp (Chronic) Colon, diverticulosis (Chronic) Nicotine addiction (Chronic) RENETTA (obstructive sleep apnea) (Chronic) non-compliant with PAP Carotid stenosis (Chronic) has had a R CEA Hospital Course and Treatment Imaging Results: Diagnostic Data Lumbar Spine CT 06/12/20 20:51 IMPRESSION: Degenerative changes without acute findings. No evidence of abnormal enhancement. No critical central canal stenosis or neural foraminal narrowing Electronically Signed: Kel Springer DO at 22:17 EST Tel , Service support , Chest X-Ray 06/12/20 21:54 IMPRESSION: Normal x-ray examination of the chest. Electronically Signed: Kel Springer DO at 22:13 EST Tel , Service support , Operations: None Procedures: None Summary of Care Provided: The patient is a 59 year old M admitted 06/13/2020 due to lower back pain. 1. Acute on chronic back pain-lumbar CT shows degenerative changes, no acute findings. No critical central canal stenosis or neuroforaminal narrowing. Recently given steroid burst and gabapentin by PA provider. Recommend continued outpatient therapy as recently ordered by PA. Lidocaine patches and as needed Tylenol at discharge. Follow-up with PCP in 1 week. 2. Hypotension-resolved. Blood pressure now elevated, resume home medication regimen. 3. Lactic acidosis-reactive, related to alcohol use. Repeat lactic acid normal. 4. Chronic alcoholism-advised cessation. No withdrawal during admission. 5. Chronic pancytopenia/Anemia-stable. 6. Depression/anxiety/agoraphobia-on Celexa, BuSpar. Follows with psychiatry. 7. GERD-on PPI. 8. History of CVA-on statin, Plavix. 9. Chronic COPD-no exacerbation. 10. Hypertension-continue amlodipine, metoprolol. Patient seen and examined prior to discharge. Physical assessment as noted below. Patient is stable for discharge with follow up recommendations as noted above. This patient was seen by ROSSANA Mcintosh under the supervision of Dr. Skaggs. Patient Problems: Active and Suspected Problems Back pain (Acute) - Physical Exam Vitals/I&O's: Vital Signs Temp Pulse Resp BP Pulse Ox 98.2 F 101 H 15 168/99 H 96 06/13/20 09:25 06/13/20 10:49 06/13/20 09:25 06/13/20 09:25 06/13/20 09:25 Oxygen Delivery Method Room Air Weight: 180 lb 8.937 oz Body Mass Index (BMI) 28.3 Finger Stick Blood Glucose 120 Intake and Output for Last 24 Hours 06/11/20 06/12/20 06/13/20 23:59 23:59 23:59 Intake Total 1000 / 1000 3916.25 / 3916.25 Output Total 700 / 700 Balance 1000 / 1000 3216.25 / 3216.25 General: Alert, Oriented x3, Cooperative HEENT: Atraumatic, PERRLA, EOMI, Normocephalic Neck: Supple, No JVD, Negative Carotid Bruits Lungs: Clear to auscultation, Normal air movement Cardiovascular: Regular rate, No murmurs Abdomen: Bowel Sounds Present, Soft, Non Tender Extremities: No edema, Capillary Refill Less than 3 Seconds Skin: No rashes, No breakdown Musculoskeletal: No Tenderness to Palpation of Joints or Extremities Neurological: Cranial nerves II-XII grossly intact, Neuro grossly intact Psych/Mental Status: Normal Affect, Appropriate Laboratory Results 06/12/20 21:06: WBC 9.7, RBC 3.13 L, Hgb 8.4 L, Hct 28.1 L, MCV 89.8, MCH 26.8 L, MCHC 29.9 L, RDW Std Deviation 52.2 H, RDW Coeff of Donnie 15.9 H, Plt Count 147 L, MPV 9.3, Immature Gran % (Auto) 0.600, Neut % (Auto) 74.4 H, Lymph % (Auto) 15.1 L, [place] % (Auto) 8.9, Eos % (Auto) 0.6, Baso % (Auto) 0.4, Absolute Neuts (auto) 7.2, Absolute Lymphs (auto) 1.46, Nucleated RBC % 0 06/12/20 21:06: Sodium 134 L, Potassium 4.0, Chloride 101, Carbon Dioxide 20.0 L, Anion Gap 13, BUN 18, Creatinine 1.27, Estim Creat Clear Calc 58.55, Est GFR (MDRD) Af Amer 75, Est GFR (MDRD) Non-Af 62, BUN/Creatinine Ratio 14.2, Glucose 97, Calcium 8.3 L, Total Bilirubin 0.50, AST 31, ALT 20, Alkaline Phosphatase 155 H, Troponin I 0.021, Total Protein 6.6, Albumin 2.9 L, Globulin 3.7, Albumin/Globulin Ratio 0.8 L 06/12/20 21:06: Lactic Acid 4.7 H* 06/12/20 21:06: PT 14.1, INR 1.1, APTT 30.6 06/12/20 22:38: Urine Color Cancelled, Urine Clarity Cancelled, Urine pH Cancelled, Ur Specific [place] Cancelled, U Specif Grav (Refrac) Cancelled, Urine Protein Cancelled, Urine Glucose (UA) Cancelled, Urine Ketones Cancelled, Urine Occult Blood Cancelled, Urine Nitrite Cancelled, Urine Bilirubin Cancelled, Urine Urobilinogen Cancelled, Ur Leukocyte Esterase Cancelled, Urine RBC Cancelled, Urine WBC Cancelled, Ur Squamous Epith Cells Cancelled, Ur Transition Epith Cell Cancelled, Ur Renal Epithelial Cell Cancelled, Calcium Oxalate Crystal Cancelled, Uric Acid Crystals Cancelled, Triple Phos Crystals Cancelled, Other Crystals Cancelled, Amorphous Sediment Cancelled, Urine Bacteria Cancelled, Hyaline Casts Cancelled, Fine Granular Casts Cancelled, Coarse Granular Casts Cancelled, Waxy Casts Cancelled, RBC Casts Cancelled, WBC Casts Cancelled, Urine Mucus Cancelled, Urine Trichomonas Cancelled, Urine Yeast Cancelled 06/12/20 22:38: Urine Color Yellow, Urine Clarity Clear, Urine pH 6.0, Ur Specific [place] 1.010, Urine Protein 30 H, Urine Glucose (UA) Normal, Urine Ketones Negative, Urine Occult Blood Negative, Urine Nitrite Negative, Urine Bilirubin Negative, Urine Urobilinogen Normal, Ur Leukocyte Esterase 25 H, Urine RBC 0 SEEN, Urine WBC 0-5 SEEN, Ur Squamous Epith Cells 0-5 SEEN, Urine Bacteria 0 SEEN, Urine Mucus 0 SEEN 06/13/20 01:10: Lactic Acid 1.3 06/13/20 06:10: Sodium 138, Potassium 4.2, Chloride 110 H, Carbon Dioxide 21.0, Anion Gap 7, BUN 16, Creatinine 0.96, Estim Creat Clear Calc 77.46, Est GFR (MDRD) Af Amer 103, Est GFR (MDRD) Non-Af 85, BUN/Creatinine Ratio 16.7, Glucose 99, Calcium 8.1 L 06/13/20 06:10: WBC 7.4, RBC 3.18 L, Hgb 8.4 L, Hct 28.0 L, MCV 88.1, MCH 26.4 L, MCHC 30.0 L, RDW Std Deviation 51.8 H, RDW Coeff of Donnie 15.9 H, Plt Count 120 L, MPV 9.3, Immature Gran % (Auto) 0.500, Neut % (Auto) 73.8 H, Lymph % (Auto) 14.8 L, [place] % (Auto) 8.8, Eos % (Auto) 1.4, Baso % (Auto) 0.7, Absolute Neuts (auto) 5.4, Absolute Lymphs (auto) 1.09, Nucleated RBC % 0 Current Medications Albuterol Sulfate (Albuterol 2.5 Mg/3 Ml Vial.Neb.) 2.5 mg INHALATION Q2H PRN PRN PRN Reason: SOB/WHEEZING Dicyclomine HCl (Dicyclomine 10 Mg Capsule) 20 mg PO Q6H PRN PRN PRN Reason: abdominal discomfort Enoxaparin Sodium (Enoxaparin 40 Mg/0.4 Ml Syringe) 40 mg SC DAILY [facility] Last Admin: 06/13/20 09:29 Dose: 40 mg Documented by: Folic Acid (Folic Acid 1 Mg Tablet) 1 mg PO DAILY@0800 [facility] Last Admin: 06/13/20 09:28 Dose: 1 mg Documented by: Gabapentin (Gabapentin 300 Mg Capsule) 300 mg PO Q8H PRN PRN PRN Reason: moderate to severe anxiety Hydroxyzine Pamoate (Hydroxyzine Jacinta 25 Mg Capsule) 50 mg PO Q4H PRN PRN PRN Reason: mild anxiety Last Admin: 06/13/20 06:50 Dose: 50 mg Documented by: Sodium Chloride () 250 mls @ 15 mls/hr IV .[id number] PRN PRN Reason: Saline Flush Sodium Chloride () 250 mls @ 15 mls/hr IV .[id number] PRN PRN Reason: Additional IVPB Infusion Loperamide HCl (Loperamide 2 Mg Capsule) 2 mg PO Q4H PRN PRN PRN Reason: LOOSE STOOLS Lorazepam (Lorazepam 1 Mg Tablet) 2 mg PO Q2H PRN PRN; Protocol PRN Reason: CIWA score > 8 but <15 Lorazepam (Lorazepam 1 Mg Tablet) 2 mg PO UD PRN; Protocol PRN Reason: CIWA score >/=15. Lorazepam (Lorazepam 2 Mg/Ml Syringe) 2 mg IV Q2H PRN PRN; Protocol PRN Reason: CIWA score > 8 but <15 Lorazepam (Lorazepam 2 Mg/Ml Syringe) 2 mg IV UD PRN; Protocol PRN Reason: CIWA score >/=15. Nicotine (Nicotine 21 Mg Patch) 21 mg TD DAILY [facility] Last Admin: 06/13/20 09:29 Dose: Not Given Documented by: Ondansetron HCl (Ondansetron 4 Mg/2 Ml Vial) 4 mg IV Q8H PRN PRN PRN Reason: NAUSEA/VOMITING Ondansetron HCl (Ondansetron 8 Mg Tablet) 8 mg PO Q8H PRN PRN PRN Reason: NAUSEA Oxycodone HCl (Oxycodone 5 Mg Tablet) 5 mg PO Q4H PRN PRN PRN Reason: Pain Score 4-5 Last Admin: 06/13/20 11:19 Dose: 5 mg Documented by: Phenobarbital (Phenobarbital 32.4 Mg Tablet) 97.2 mg PO Q4H [facility]; Taper Stop: 06/17/20 09:59 Last Admin: 06/13/20 09:33 Dose: 97.2 mg Documented by: Senna/Docusate Sodium (Senna/Docusate Sodium 1 Tablet) 2 tablet PO BID PRN PRN PRN Reason: Constipation Sodium Chloride (0.9% Saline Lock 10 Ml Syringe) 10 - 40 ml IV UD PRN PRN Reason: SALINE FLUSH Thiamine HCl (Thiamine Hydrochloride 100 Mg Tablet) 100 mg PO DAILYCM [facility] Last Admin: 06/13/20 09:29 Dose: 100 mg Documented by: Trazodone HCl (Trazodone 100 Mg Tablet) 100 mg PO QHS PRN PRN PRN Reason: INSOMNIA Discharge Diet: No Restrictions Discharge Activity: Return to Normal Activity Home Medications: Medications to take at Discharge Clopidogrel Bisulfate [Plavix] 75 mg PO DAILY 09/10/16 Folic Acid 1 mg PO DAILY@0800 09/10/16 Budesonide/Formoterol Fumarate [Symbicort 160-4.5 Mcg Inhaler] 2 puff IH BID 04/25/19 Cholecalciferol (VIT D3) [Vitamin D3] 2,000 unit PO DAILY 04/25/19 Metoprolol Tartrate [Lopressor (beta arn)] 100 mg PO BID 05/25/19 Acetaminophen [Tylenol Tablet] 650 mg PO Q6H PRN PRN tab 06/05/19 Amlodipine [Norvasc] 5 mg PO DAILY 06/05/19 Atorvastatin Calcium [Lipitor] 80 mg PO QHS 06/05/19 Albuterol Inhaler [Ventolin Hfa] 2 puff INHALATION Q4H PRN PRN #1 inhaler 06/16/19 Ascorbic Acid [Vitamin C] 500 mg PO BIDCM #60 tab 06/16/19 Citalopram [Celexa] 20 mg PO DAILY #30 tab 06/16/19 Magnesium Oxide [Mag-Ox 400] 400 mg PO BIDCM #60 tab 06/16/19 Pantoprazole Sodium [Protonix] 20 mg PO BID tab 06/16/19 Thiamine Hydrochloride [Vitamin B1] 100 mg PO DAILYCM #30 tab 06/16/19 buPROPion XL [Wellbutrin Xl] 150 mg PO DAILY #30 tablet.xl 06/16/19 busPIRone [Buspar] 20 mg PO BID 11/03/19 Gabapentin [Neurontin] 300 mg PO Q8H PRN PRN 7 Days #21 cap 06/13/20 Lidocaine [Lidoderm Patch] 1 patch TOPICAL DAILY 10 Days #10 patch 06/13/20 Nicotine [Nicoderm Cq] 21 mg TD DAILY 30 Days #30 patch 06/13/20 Following Prescriptions Were Given to Patient: Lidocaine [Lidoderm Patch] 1 patch TOPICAL DAILY 10 Days #10 patch Transmission Status: Received by [facility] Gabapentin [Neurontin] 300 mg PO Q8H PRN PRN 7 Days #21 cap PRN Reason: moderate to severe anxiety Transmission Status: Received by [facility] Nicotine [Nicoderm Cq] 21 mg TD DAILY 30 Days #30 patch Transmission Status: Received by [facility] Primary Care Physician: [facility] [Primary Care Provider] - Please follow up with your Primary Care Physician in: within 2 weeks Disposition: Home Minutes spent on discharge:: 35 Patient Condition:: Stable Medical Necessity - Tobacco Use Smoking Status: Current every day smoker Meaningful Use Info Meaningful Use Diagnoses (Choose all that apply): None applicable <Prachi Skaggs - Last Filed: 06/14/20 17:00> Discharge Date and Diagnosis - Primary Discharge Diagnosis Acute Problems: Active Problems Back pain (Acute) - Secondary Discharge Diagnosis Chronic Problems: Chronic Problems Acute on chronic anemia (Chronic) Chronic iron deficiency anemia (Chronic) Thrombocytopenia (Chronic) Suspect secondary to the toxic effects of EtOH on bone marrow Grade III diastolic dysfunction (Chronic) Pulmonary hypertension (Chronic) Moderate with a RV systolic estimated at 60 Mitral regurgitation (Chronic) Hiatal hernia (Chronic) small Esophageal varices determined by endoscopy (Chronic) stage II varices on EGD 04/28/[address] Abdullahi. Esophageal varices due to chronic alcohol dependence and chronic liver disease. Anxiety (Chronic) Pancreatitis (Chronic) Stroke (Chronic) Alcohol abuse (Chronic) Depression (Chronic) COPD (chronic obstructive pulmonary disease) (Chronic) Hyperlipemia (Chronic) GERD (gastroesophageal reflux disease) (Chronic) HTN (hypertension) (Chronic) Colonic polyp (Chronic) Colon, diverticulosis (Chronic) Nicotine addiction (Chronic) RENETTA (obstructive sleep apnea) (Chronic) non-compliant with PAP Carotid stenosis (Chronic) has had a R CEA Hospital Course and Treatment Summary of Care Provided: This patient was seen in conjunction with Debbie Cantu NP. I have independently interviewed and examined the patient and reviewed pertinent historical, laboratory, and other data. Please refer to her note for patient's presentation, findings, and recommendations. 59-year-old male with multiple comorbidities, history of chronic alcohol use disorder who presented with acute excruciating lower back pain that radiated down her legs. Pain is worse with lying down. Patient had recently completed a course of steroids. Ct of lumbar spine that did not show any critical central canal stenosis or neuroforamina narrowing. He was admitted to the telemetry floor, patient was managed on Lidoderm patches, Tylenol, morphine with improvement in his pain. The next day, patient was seen and examined. Denied any new complaint. Pain was much improved. He was eager to be discharged. Physical Exam: Gen: Comfortable, not pale, not jaundiced, alert oriented x3 CVS:HS I +II, regular, no murmurs RESP: Diminished at lung bases GI: BS present and normal, nontender, no palpable organs EXT:No edema Back: Tenderness over the lower back - Physical Exam Vitals/I&O's: Vital Signs Temp Pulse Resp BP Pulse Ox 98.2 F 101 H 15 168/99 H 96 06/13/20 09:25 06/13/20 10:49 06/13/20 09:25 06/13/20 09:25 06/13/20 09:25 Oxygen Delivery Method Room Air Weight: 81.9 kg Body Mass Index (BMI) 28.3 Finger Stick Blood Glucose 120 Intake and Output for Last 24 Hours 06/12/20 06/13/20 06/14/20 23:59 23:59 23:59 Intake Total 1000 / 1000 3916.25 / 3916.25 Output Total 700 / 700 Balance 1000 / 1000 3216.25 / 3216.25 Microbiology Past 72 Hours 06/12/20 22:38 Urine, Clean Catch Urine Culture - Preliminary Beta hemolytic organism GPC Poss Enterococcus sp OBSV E&M: [id number] Observation care discharge
== END 2020-06-13 11:41 | disposition home or self-care (01) ==
LOC: ED 23:23 → PCU 06-13 00:23
PROVIDERS: Admitting Provider Hospitalist; Emergency Provider Emergency Medicine; Visit Provider Internal Medicine
DX: M54.9 Dorsalgia, unspecified (principal); Z23 Encounter for immunization; K21.9 Gastro-esophageal reflux disease without esophagitis; I10 Essential (primary) hypertension; J44.9 Chronic obstructive pulmonary disease, unspecified; F41.9 Anxiety disorder, unspecified; F32.9 Major depressive disorder, single episode, unspecified; F10.20 Alcohol dependence, uncomplicated; F17.210 Nicotine dependence, cigarettes, uncomplicated; E87.2 Acidosis; I27.20 Pulmonary hypertension, unspecified; D50.9 Iron deficiency anemia, unspecified; K44.9 Diaphragmatic hernia without obstruction or gangrene; E78.5 Hyperlipidemia, unspecified; G47.33 Obstructive sleep apnea (adult) (pediatric); D61.818 Other pancytopenia; Z86.73 Personal history of transient ischemic attack (TIA), and cerebral infarction without residual deficits; Z79.899 Other long term (current) drug therapy; Z79.02 Long term (current) use of antithrombotics/antiplatelets; Z79.51 Long term (current) use of inhaled steroids; Z91.19 Patient's noncompliance with other medical treatment and regimen; F40.00 Agoraphobia, unspecified
CPT/HCPCS: 71045; 72132; 80048; 80053; 81001; 83605; 84484; 85025; 85610; 85730; 87040; 87086; 87088; 93005; 96360; 96361; 96372; 99218; 99285; 99406; J7030; J7040; Q9967; 90686; A4216; G0378

== ENCOUNTER 2020-06-17 06:27 | Inpatient (IN) | payer OTHER, MEDICARE, MEDICAID, SELFPAY ==
[2020-06-13 01:52] VITALS: BMI 28.3
[2020-06-17] VITALS (9 sets, daily range): BP systolic 110–159; BP diastolic 55–76; PULSE 78–110; RESP 14–20; TEMP 36.6–37.1; O2SAT 98–100; BMI 30.6; BMI 29.2
--- NOTE | 2020-06-17 07:03 | ED.VIS.GEN ---
History of Present Illness Chief Complaint: Back Informant: Patient Narrative: Patient is a 59-year-old male with chronic back pain, alcohol abuse and cirrhosis of the liver presenting with worsening back pain. Patient was actually admitted to the hospital earlier this week and then discharged for the same complaint. He was discharged home. Patient was home alone. He was discharged home with gabapentin. He does admit that he has not received his prescription yet. Since he has been home he states the pain is getting worse and he can even walk around his house. He states he is having a PE in a bucket. He does not feel safe at home and wants to come into the hospital to be evaluated for inpatient rehab. Patient states he has been having back problems chronically but is been worse over the past 2 months. It is worse on the left side and radiates down his left leg. He feels that his leg is buckling. He reports 1 fall in this time. Patient continues to drink alcohol. He states he has had 4 beers over the course of the night. He does have history of DTs. He has a history of strokes which he attributes to the reason he drinks so much. He denies any saddle anesthesia, bowel or bladder incontinence or new extremity weakness. Past Medical History - Allergies and Home Meds Allergies/Adverse Reactions: Allergies lisinopril Allergy (Severe, Verified 06/17/20 06:29) Angioedema bee venom protein (honey bee) Allergy (Verified 06/17/20 06:29) Swelling Primary Care Physician: [place] [Primary Care Provider] - Past Medical History: - - Chronic back pain, stroke, alcohol abuse, liver cirrhosis Surgical History: - - surgery on left foot due to accident, carotid endarterectemy on the right side. Smoking Status: Current every day smoker Alcohol: Heavy - Family History Maternal Family History: Reports: Hypertension, - - Mother had a history of alcoholism but quit drinking at the age of 55 Paternal Family History: Reports: - - alcoholism, of suicide Review of Systems General: Denies: Chills, Fever, Sweats Eyes: Denies: Visual changes - bilaterally, Diplopia ENT: Denies: Rhinorrhea, Sore throat Cardiovascular: Denies: Chest pain, Palpitations Respiratory: Denies: Dyspnea, Cough, Dyspnea on exertion Gastrointestinal: Denies: Abdominal pain, Nausea, Vomiting, Diarrhea, Melena, Hematochezia Genitourinary: Denies: Dysuria, Hematuria, Frequency Musculoskeletal: Reports: Back pain. Denies: Extremity Pain Skin: Denies: Rash, Wounds Neurological: Denies: Headache, Weakness, Numbness Physical Exam Vital Signs/Narrative: Vital Signs Temp Pulse Resp BP Pulse Ox 06/17/20 06:30 97.8 F 84 18 110/73 99 Inital Vital Signs reviewed: Yes General: Well nourished, Well developed, No Acute Distress Head: Normocephalic, Atraumatic Eyes: Perrl, EOMI ENT: Moist mucous membranes, No rhinorrhea Neck: Supple, Nontender Cardiovascular: Regular rate, Regular rhythm, No murmurs Respiratory: No distress, CTA bilaterally, Chest nontender Abdomen: Soft, Nontender, Nondistended, Normal bowel sounds. Negative for: Pulsatile mass Back: Normal Inspection, - - left paraspinal tenderness - lumbar . Negative for: CVA tenderness, Spinal tenderness Extremities: Nontender, No edema Skin: Normal color, No rash Neurological: Alert, Oriented x3, Cranial nerves II-XII grossly intact, Normal Strength, Normal Sensation, - - cannot test gait secondary to pain . Negative for: Weakness Psychological: Normal affect, Normal Mood Diagnostic/Tx/Re-eval Laboratory Data 06/17/20 07:04 WBC 4.7 RBC 2.95 L Hgb 7.9 L Hct 25.5 L MCV 86.4 MCH 26.8 L MCHC 31.0 L RDW Std Deviation 51.2 H RDW Coeff of Donnie 16.2 H Plt Count 104 L MPV 9.7 Immature Gran % (Auto) 0.600 Neut % (Auto) 68.1 Lymph % (Auto) 17.6 L [place] % (Auto) 11.4 H Eos % (Auto) 1.7 Baso % (Auto) 0.6 Absolute Neuts (auto) 3.2 Absolute Lymphs (auto) 0.82 L Nucleated RBC % 0 - Medical Decision Making Patient is evaluated for worsening back pain. Patient was hospitalized earlier this week for the same complaint. At that time he did not want inpatient rehab and wanted to go home. Since he has been home patient has continued to decline and is now not able to care for himself. At this point he would like to be evaluated for inpatient rehab/placement. Patient does not changes in the characteristics of his pain and has no new injuries. I do not think repeat imaging is indicated. Patient is a heavy drinker and CIWA and EtOH levels are ordered. Screening labs are obtained for hospitalist. Patient is given oxycodone for pain control in the ER. ED Disposition - Plan for ED Patient: Disposition: Acute Care Hospital [facility] Diagnosis: Back pain, Chronic anemia, Alcohol abuse [facility]errals: [facility] [Primary Care Provider] -
[2020-06-17 07:08] LABS: Absolute Lymphocyte Count 0.82 X10^3/uL (0.83-4.51); Absolute Neutrophil Count 3.2 X10^3/uL (2.0-7.7); Basophil# 0.03 X10^3/uL; Basophil% 0.6 % (0-1); Eosinophil# 0.08 X10^3/uL; Eosinophils% 1.7 % (0-5); Hematocrit 25.5 % (40-54); Hemoglobin 7.9 g/dL (13.0-16.5); Lymphocyte # 0.82 X10^3/ul (4.0); Lymphocyte % 17.6 % (19-41); Mean Corpuscular Hgb 26.8 pg (27.0-32.0); Mean Corpuscular Volume 86.4 fL (80-94); Mean Platelet Vol. 9.7 fl (6.2-12.0); Monocyte# 0.53 X10^3/uL; Monocyte% 11.4 % (0-10); NRBC Flagged by Analyzer 0 % (0-5); Neutrophil # 3.17 X10^3/uL (2.7-7.7); Neutrophil % 68.1 % (47-70); Platelet Count 104 K/mm3 (150-450); RBC Distribution Width CV 16.2 % (11.6-14.6); RBC Distribution Width SD 51.2 fl (35.1-43.9); Red Blood Count 2.95 M/mm3 (4.6-6.2); White Blood Count 4.7 K/mm3 (4.4-11.0)
[2020-06-17] MEDS: 0.9% Normal Saline 1,000 ML 150 ML IV ×2 (07:10→14:11)
[2020-06-17] MEDS: oxyCODONE 5 MG Tablet PO ×5 (07:10→23:32)
--- NOTE | 2020-06-17 07:15 | PCM.HP.STD ---
Problem List (1) Back pain Status: Acute Qualifiers: Back pain location: low back pain Chronicity: acute Back pain laterality: midline Sciatica presence: with sciatica Sciatica laterality: sciatica of left side Qualified Code(s): M54.42 - Lumbago with sciatica, left side (2) Alcohol abuse Status: Chronic (3) Depression Status: Chronic Qualifiers: Depression Type: unspecified Qualified Code(s): F32.9 - Major depressive disorder, single episode, unspecified (4) COPD (chronic obstructive pulmonary disease) Status: Chronic Qualifiers: Chronic bronchitis type: unspecified (5) GERD (gastroesophageal reflux disease) Status: Chronic Qualifiers: Esophagitis presence: esophagitis presence not specified Qualified Code(s): K21.9 - Gastro-esophageal reflux disease without esophagitis (6) HTN (hypertension) Status: Chronic Qualifiers: Hypertension type: unspecified Qualified Code(s): I10 - Essential (primary) hypertension History of Present Illness Date of Admission: 06/17/20 Chief Complaint: Progressive leg weakness, inability to walk The patient is a 59 year old M with past medical history of chronic alcohol use disorder, anxiety/depression/agoraphobia, chronic back pain with left-sided sciatica who was recently admitted and discharged on 06/13/20. Patient's CT scan of the lumbar spine at that time showed degenerative changes without acute findings. There were no critical central canal stenosis or neural foraminal narrowing. Patient was managed on pain medications. He insisted on being discharged and did not want to go to a skilled facility. He also had denied home health. He however was open to outpatient therapy. Patient comes in because he is unable to walk. He has progressive weakness and pain and can only walk 4 steps before he has to stop. He has severe pain that shoots down his left leg. He denied any incontinence of stool or urine. He denied any continuous tingling numbness in his lower extremities.Patient has continued to drink. Vitals in the ED was 97.8F, heart rate 84, blood pressure 113/73, respiratory was 18, SPO2 99% on room air. Admitting blood work showed RBC count of 4.7, hemoglobin was 7.9 which was not far from his baseline. Globin was 8.4. His BMP was changed from previous except for sodium of 127. 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 Abdullahi. Esophageal varices due to chronic alcohol dependence and chronic liver disease. Anxiety (Chronic) Pancreatitis (Chronic) Stroke (Chronic) Alcohol abuse (Chronic) Depression (Chronic) COPD (chronic obstructive pulmonary disease) (Chronic) Hyperlipemia (Chronic) GERD (gastroesophageal reflux disease) (Chronic) HTN (hypertension) (Chronic) Colonic polyp (Chronic) Colon, diverticulosis (Chronic) Nicotine addiction (Chronic) RENETTA (obstructive sleep apnea) (Chronic) non-compliant with PAP Carotid stenosis (Chronic) has had a R CEA Allergies lisinopril Allergy (Severe, Verified 06/17/20 06:29) Angioedema bee venom protein (honey bee) Allergy (Verified 06/17/20 06:29) Swelling Home Medications: Ambulatory Orders Medication Instructions Recorded Clopidogrel Bisulfate [Plavix] 75 mg PO DAILY 09/10/16 Folic Acid 1 mg PO DAILY@0800 09/10/16 Budesonide/Formoterol Fumarate 2 puff IH BID 04/25/19 [Symbicort 160-4.5 Mcg Inhaler] Cholecalciferol (VIT D3) [Vitamin 2,000 unit PO DAILY 04/25/19 D3] Metoprolol Tartrate [Lopressor 100 mg PO BID 05/25/19 (beta ran)] Acetaminophen [Tylenol Tablet] 650 mg PO Q6H PRN PRN tab 06/05/19 Amlodipine [Norvasc] 5 mg PO DAILY 06/05/19 Atorvastatin Calcium [Lipitor] 80 mg PO QHS 06/05/19 Albuterol Inhaler [Ventolin Hfa] 2 puff INHALATION Q4H PRN PRN #1 06/16/19 inhaler Ascorbic Acid [Vitamin C] 500 mg PO BIDCM #60 tab 06/16/19 Citalopram [Celexa] 20 mg PO DAILY #30 tab 06/16/19 Magnesium Oxide [Mag-Ox 400] 400 mg PO BIDCM #60 tab 06/16/19 Pantoprazole Sodium [Protonix] 20 mg PO BID tab 06/16/19 Thiamine Hydrochloride [Vitamin B1] 100 mg PO DAILYCM #30 tab 06/16/19 buPROPion XL [Wellbutrin Xl] 150 mg PO DAILY #30 tablet.xl 06/16/19 busPIRone [Buspar] 20 mg PO BID 11/03/19 Gabapentin [Neurontin] 300 mg PO Q8H PRN PRN 7 Days #21 06/13/20 cap Lidocaine [Lidoderm Patch] 1 patch TOPICAL DAILY 10 Days #10 06/13/20 patch Nicotine [Nicoderm Cq] 21 mg TD DAILY 30 Days #30 patch 06/13/20 Surgical History: - - surgery on left foot due to accident, carotid endarterectemy on the right side. Psychiatric History: Anxiety, Depression Smoking Status: Current every day smoker Tobacco Use: Cigarettes Alcohol: Heavy Drugs: None - *Family History Maternal History Items: Hypertension, - - Mother had a history of alcoholism but quit drinking at the age of 55 Paternal History Items: - - alcoholism, of suicide Review of Systems Constitutional: Denies: Anorexia, Chills, Fever, Night Sweats, Malaise, Weakness, Weight Change, Fatigue Eyes: Denies: Blurred vision, Cataracts, Conjunctivae Inflammation, Pain HEENT: Denies: Difficulty Hearing, Difficulty Swallowing, Head Aches, Hearing Changes, Sinus Congestion, Sinus Drainage Cardiovascular: Denies: Chest Pain, Claudication, Orthopnea, Palpitations Respiratory: Denies: Cough, Hemoptysis, Shortness of breath at rest, Shortness of breath upon exertion, Sputum production Gastrointestinal: Denies: Abdominal Pain, Hematemesis, Hematochezia, Nausea, Vomiting Genitourinary: Denies: Dysuria Musculoskeletal: Denies: Joint Pain, Joint stiffness, Joint swelling, Joint Tenderness Skin: Denies: Rash, Wounds Neurological: Denies: Numbness, Tingling, Focal weakness Psychiatric: Denies: Anxiety, Depression, Homicidal Ideations, Suicidal Ideations Hematologic/ Lymphatic: Denies: Easy Bruising, Easy Bleeding VTE Information - Inpt Only VTE Present on Admission: No VTE Pharm Prophylaxis ordered?: Yes Patient Problems: Active and Suspected Problems Back pain (Acute) - Physical Exam Vitals/I&O's: Vital Signs Temp Pulse Resp BP Pulse Ox 97.8 F 84 18 110/73 99 06/17/20 06:30 06/17/20 06:30 06/17/20 06:30 06/17/20 06:30 06/17/20 06:30 Weight: 88.6 kg Body Mass Index (BMI) 30.6 Finger Stick Blood Glucose 120 General: Alert, Oriented x3, Cooperative, No apparent distress HEENT: Atraumatic, PERRLA, EOMI, Normocephalic Oral: Moist Mucosa Neck: Supple Lungs: Clear to auscultation, Normal air movement Cardiovascular: Regular rate, Regular Rhythm, Normal S1, Normal S2, No murmurs Abdomen: Bowel Sounds Present, Soft, Non Tender, Non-Distended, No Hepato-splenomegaly Extremities: No edema Skin: No rashes Musculoskeletal: No Tenderness to Palpation of Joints or Extremities Neurological: Cranial nerves II-XII grossly intact, Motor Exam 5/5 strength throughout - except for positive straight leg test on the left Psych/Mental Status: Normal Affect, Appropriate Laboratory Results 06/17/20 07:04: WBC 4.7, RBC 2.95 L, Hgb 7.9 L, Hct 25.5 L, MCV 86.4, MCH 26.8 L, MCHC 31.0 L, RDW Std Deviation 51.2 H, RDW Coeff of Donnie 16.2 H, Plt Count 104 L, MPV 9.7, Immature Gran % (Auto) 0.600, Neut % (Auto) 68.1, Lymph % (Auto) 17.6 L, [place] % (Auto) 11.4 H, Eos % (Auto) 1.7, Baso % (Auto) 0.6, Absolute Neuts (auto) 3.2, Absolute Lymphs (auto) 0.82 L, Nucleated RBC % 0 06/17/20 07:04: Sodium Pending, Potassium Pending, Chloride Pending, Carbon Dioxide Pending, Anion Gap Pending, BUN Pending, Creatinine Pending, Est GFR (MDRD) Af Amer Pending, Est GFR (MDRD) Non-Af Pending, BUN/Creatinine Ratio Pending, Glucose Pending, Calcium Pending, Total Bilirubin Pending, Direct Bilirubin Pending, AST Pending, ALT Pending, Alkaline Phosphatase Pending, Total Protein Pending, Albumin Pending 06/17/20 07:04: Ethyl Alcohol Pending Current Medications Sodium Chloride () 1,000 mls @ 150 mls/hr IV .[id number] [facility] Last Admin: 06/17/20 07:10 Dose: 150 mls/hr Documented by: Assessment/Plan All Active Problems Back pain (Acute) GI bleed (Resolved) Hypomagnesemia (Resolved) Hepatitis C (Ruled-out) 1. Acute on chronic low back pain with left lower leg weakness Patient has positive left leg straight test Recent CT of the lumbar spine was negative for any canal stenosis or neural foraminal stenosis We will get an MRI of the lumbar spine Check vitamin B12 and folate level Will consider spine surgery if MRI is concerning for inciting cause 2. Alcohol use withdrawal, will start on phenobarbital withdrawal protocol Continue on thiamine, folic acid 3. Anemia, history of blood transfusion in October 2019 Check iron stores, trend H&H 4. Hypertension, controlled, continue on metoprolol, amlodipine 5. Nicotine dependence, advised to quit, will continue on replacement 6. COPD not in acute exacerbation, will continue with prn breathing treatments Continue on Symbicort 7. Anxiety/depression/agoraphobia, stable, continue on bupropion, BuSpar, Celexa 8. H/o CVA, bilateral carotid stenosis, more on the right, continue on Plavix 9. Debility, multifactorial, related to uncontrolled/progressive pain is low back with inability to walk 10. DVT prophylaxis?on SCDs Inpatient E&M: 45534 Init Hosp L2
[2020-06-17 08:02] LABS: AST(SGOT) 28 U/L (15-37); Alanine Aminotransfer ALT/SGPT 20 U/L (16-61); Albumin, Serum 2.7 g/dL (3.2-5.0); Alkaline Phosphatase 177 U/L (45-117); Anion Gap 11 (5-15); BUN 14 mg/dL (7-18); BUN/Creat Ratio 14.9 RATIO (10-20); Bilirubin, Direct 0.15 mg/dL (0.00-0.30); Calcium,Total 8.7 mg/dL (8.5-10.1); Chloride 98 mmol/L (98-107); Creatinine, Serum 0.94 mg/dL (0.70-1.30); EST Glomerular Filtration Rate 87 mL/min (>60); Est Glom Filt Rate - Afr Amer 106 mL/min (>60); Estimated Creatinine Clearance 79.11 ml/min; Globulin 3.4 g/dL (2.2-4.2); Glucose 78 mg/dL (74-106); Potassium 4.5 mmol/L (3.5-5.1); Protein, Total 6.1 g/dL (6.4-8.2); Sodium Level 127 mmol/L (136-145)
[2020-06-17] MEDS: Enoxaparin 40 MG/0.4 ML Syringe SC (09:35)
[2020-06-17] MEDS: amLODIPine 5 MG Tablet PO (10:39)
[2020-06-17] MEDS: Clopidogrel Bisulfate 75 MG Tablet PO (10:39)
[2020-06-17] MEDS: Phenobarbital 32.4 MG Tablet 64.8 MG PO ×4 (10:39→22:02)
[2020-06-17] MEDS: buPROPion (XL) 150 MG TABLET.XL PO (10:40)
[2020-06-17] MEDS: Citalopram 20 MG Tablet PO (10:40)
--- NOTE | 2020-06-17 12:06 | CASEMGMT ---
MALIA called [facility], spoke w/pt navigator and she will come see pt tomorrow. ASIF Weir
[2020-06-17] MEDS: Albuterol 2.5 MG/3 ML VIAL.NEB. INHALATION ×2 (13:33→19:39)
[2020-06-17 15:07] LABS: Hematocrit 26.6 % (40-54); Hemoglobin 7.9 g/dL (13.0-16.5)
[2020-06-17] MEDS: Ascorbic Acid 500 MG Tablet PO (18:34)
[2020-06-17] MEDS: hydrOXYzine PAM 25 MG Capsule 50 MG PO (18:36)
[2020-06-17] MEDS: Budesonide Respules 0.5 MG/2 ML AMPUL.NEB. INHALATION (19:40)
[2020-06-17] MEDS: busPIRone 5 MG Tablet 20 MG PO (22:01)
[2020-06-17] MEDS: traZODone 100 MG Tablet PO (22:02)
[2020-06-17] MEDS: Atorvastatin Calcium 80 MG Tablet PO (22:02)
[2020-06-17] MEDS: Pantoprazole Sodium 20 MG Tablet PO (22:02)
[2020-06-17] MEDS: Metoprolol Tartrate 100 MG Tablet PO (22:06)
[2020-06-17] MEDS: Acetaminophen 325 MG Tablet 650 MG PO (23:32)
[2020-06-18] VITALS (9 sets, daily range): BP systolic 126–167; BP diastolic 60–78; PULSE 86–99; RESP 16–18; TEMP 36.3–37; O2SAT 98–100
[2020-06-18] MEDS: Gabapentin 300 MG Capsule PO (02:05)
[2020-06-18] MEDS: Phenobarbital 32.4 MG Tablet 64.8 MG PO ×6 (02:05→22:44)
[2020-06-18] MEDS: hydrOXYzine PAM 25 MG Capsule 50 MG PO ×3 (03:12→20:41)
[2020-06-18] MEDS: oxyCODONE 5 MG Tablet PO ×5 (03:50→22:44)
[2020-06-18] MEDS: Budesonide Respules 0.5 MG/2 ML AMPUL.NEB. INHALATION ×2 (07:37→20:10)
[2020-06-18] MEDS: Albuterol 2.5 MG/3 ML VIAL.NEB. INHALATION ×3 (07:38→20:10)
[2020-06-18] MEDS: Lidocaine 5% Patch 1 PATCH TOPICAL (07:58)
[2020-06-18] MEDS: busPIRone 5 MG Tablet 20 MG PO ×2 (07:59→20:41)
[2020-06-18] MEDS: Pantoprazole Sodium 20 MG Tablet PO ×2 (07:59→20:41)
[2020-06-18] MEDS: buPROPion (XL) 150 MG TABLET.XL PO (08:00)
[2020-06-18] MEDS: Citalopram 20 MG Tablet PO (08:00)
[2020-06-18] MEDS: Ascorbic Acid 500 MG Tablet PO ×2 (08:01→16:10)
[2020-06-18] MEDS: Clopidogrel Bisulfate 75 MG Tablet PO (08:01)
[2020-06-18] MEDS: Folic Acid 1 MG Tablet PO (08:02)
[2020-06-18] MEDS: Metoprolol Tartrate 100 MG Tablet PO ×2 (08:02→20:41)
[2020-06-18] MEDS: Thiamine Hydrochloride 100 MG Tablet PO (08:02)
[2020-06-18] MEDS: amLODIPine 5 MG Tablet PO (08:06)
--- NOTE | 2020-06-18 12:58 | PCM.PN.HOSP ---
Patient Problems: Active and Suspected Problems Back pain (Acute) Reason for Visit: Follow-up on acute on chronic back pain/leg weakness/alcohol use disorder Subjective: Patient was seen and examined. Denied any new complaint. Still has weakness in left leg. MRI of the lower back is pending Objective: Physical exam: General: Alert, Oriented x3, Cooperative, No apparent distress HEENT: Atraumatic, PERRLA, EOMI, Normocephalic Oral: Moist Mucosa Neck: Supple Lungs: Clear to auscultation, Normal air movement Cardiovascular: Regular rate, Regular Rhythm, Normal S1, Normal S2, No murmurs Abdomen: Bowel Sounds Present, Soft, Non Tender, Non-Distended, No Hepato-splenomegaly Extremities: No edema Skin: No rashes Musculoskeletal: No Tenderness to Palpation of Joints or Extremities Neurological: Cranial nerves II-XII grossly intact, Motor Exam 5/5 strength throughout - except for positive straight leg test on the left Psych/Mental Status: Normal Affect, Appropriate Vitals/I&O's: Vital Signs Temp Pulse Resp BP Pulse Ox 98.6 F 86 18 167/78 H 99 06/18/20 08:08 06/18/20 08:08 06/18/20 08:08 06/18/20 08:08 06/18/20 08:08 Oxygen Delivery Method Room Air Weight: 81.692 kg Body Mass Index (BMI) 29.2 Finger Stick Blood Glucose 120 Intake and Output for Last 24 Hours 06/16/20 06/17/20 06/18/20 23:59 23:59 23:59 Intake Total 997.5 / 997.5 480 / 480 Output Total 650 / 650 1500 / 1500 Balance 347.5 / 347.5 -1020 / -1020 Laboratory Results 06/17/20 14:50: Hgb 7.9 L, Hct 26.6 L 06/17/20 14:50: Vitamin B12 Pending 06/17/20 14:50: Folate 24.90 Current Medications Acetaminophen (Acetaminophen 325 Mg Tablet) 650 mg PO Q6H PRN PRN PRN Reason: Pain Score 1-10 Last Admin: 06/17/20 23:32 Dose: 650 mg Documented by: Al Hydroxide/Mg Hydroxide (Mag Hydrox/Al Hydrox/Simeth 30 Ml Udc) 30 ml PO Q6H PRN PRN PRN Reason: dyspesia Albuterol Sulfate (Albuterol 2.5 Mg/3 Ml Vial.Neb.) 2.5 mg INHALATION Q4H PRN PRN PRN Reason: SOB &/OR WHEEZING Last Admin: 06/17/20 19:39 Dose: 2.5 mg Documented by: Albuterol Sulfate (Albuterol 2.5 Mg/3 Ml Vial.Neb.) 2.5 mg INHALATION Q6HWA.RT [facility] Last Admin: 06/18/20 07:38 Dose: 2.5 mg Documented by: Amlodipine Besylate (Amlodipine 5 Mg Tablet) 5 mg PO DAILY [facility] Last Admin: 06/18/20 08:06 Dose: 5 mg Documented by: Ascorbic Acid (Ascorbic Acid 500 Mg Tablet) 500 mg PO BIDCM [facility] Last Admin: 06/18/20 08:01 Dose: 500 mg Documented by: Atorvastatin Calcium (Atorvastatin Calcium 80 Mg Tablet) 80 mg PO QHS [facility] Last Admin: 06/17/20 22:02 Dose: 80 mg Documented by: Bisacodyl (Bisacodyl 10 Mg Suppository) 10 mg RC DAILY PRN PRN Reason: Constipation Budesonide (Budesonide Respules 0.5 Mg/2 Ml Ampul.Neb.) 0.5 mg INHALATION Q12H.RT [facility] Last Admin: 06/18/20 07:37 Dose: 0.5 mg Documented by: Bupropion HCl (Bupropion (Xl) 150 Mg Tablet.Xl) 150 mg PO DAILY [facility] Last Admin: 06/18/20 08:00 Dose: 150 mg Documented by: Buspirone HCl (Buspirone 5 Mg Tablet) 20 mg PO BID [facility] Last Admin: 06/18/20 07:59 Dose: 20 mg Documented by: Cholecalciferol (Cholecalciferol (Vit D3) 1,000 Unit (25mcg)) 2,000 unit PO DAILY [facility] Last Admin: 06/18/20 08:00 Dose: 2,000 unit Documented by: Citalopram Hydrobromide (Citalopram 20 Mg Tablet) 20 mg PO DAILY [facility] Last Admin: 06/18/20 08:00 Dose: 20 mg Documented by: Clopidogrel Bisulfate (Clopidogrel Bisulfate 75 Mg Tablet) 75 mg PO DAILY [facility] Last Admin: 06/18/20 08:01 Dose: 75 mg Documented by: Dicyclomine HCl (Dicyclomine 10 Mg Capsule) 20 mg PO Q6H PRN PRN PRN Reason: abdominal discomfort Folic Acid (Folic Acid 1 Mg Tablet) 1 mg PO DAILY@0800 [facility] Last Admin: 06/18/20 08:02 Dose: 1 mg Documented by: Gabapentin (Gabapentin 300 Mg Capsule) 300 mg PO Q8H PRN PRN PRN Reason: moderate to severe anxiety Last Admin: 06/18/20 02:05 Dose: 300 mg Documented by: Hydroxyzine Pamoate (Hydroxyzine Jacinta 25 Mg Capsule) 50 mg PO Q4H PRN PRN PRN Reason: mild anxiety Last Admin: 06/18/20 08:12 Dose: 50 mg Documented by: Sodium Chloride () 250 mls @ 15 mls/hr IV .[id number] PRN PRN Reason: Saline Flush Sodium Chloride () 250 mls @ 15 mls/hr IV .[id number] PRN PRN Reason: Additional IVPB Infusion Lidocaine (Lidocaine 5% Patch) 1 patch TOPICAL DAILY [facility]; Protocol Last Admin: 06/18/20 07:58 Dose: 1 patch Documented by: Loperamide HCl (Loperamide 2 Mg Capsule) 2 mg PO Q4H PRN PRN PRN Reason: LOOSE STOOLS Metoprolol Tartrate (Metoprolol Tartrate 100 Mg Tablet) 100 mg PO BID [facility] Last Admin: 06/18/20 08:02 Dose: 100 mg Documented by: Nicotine (Nicotine 21 Mg Patch) 21 mg TD DAILY [facility] Last Admin: 06/18/20 08:01 Dose: 21 mg Documented by: Nicotine Polacrilex (Nicotine Polacrilex 2 Mg Gum) 2 mg PO Q2H PRN PRN PRN Reason: Nicotine Craving Ondansetron HCl (Ondansetron 4 Mg/2 Ml Vial) 4 mg IV Q8H PRN PRN PRN Reason: NAUSEA/VOMITING Ondansetron HCl (Ondansetron 8 Mg Tablet) 8 mg PO Q8H PRN PRN PRN Reason: NAUSEA Oxycodone HCl (Oxycodone 5 Mg Tablet) 5 mg PO Q4H PRN PRN PRN Reason: Pain Score 4-10 Last Admin: 06/18/20 08:13 Dose: 5 mg Documented by: Pantoprazole Sodium (Pantoprazole Sodium 20 Mg Tablet) 20 mg PO BID [facility] Last Admin: 06/18/20 07:59 Dose: 20 mg Documented by: Phenobarbital (Phenobarbital 32.4 Mg Tablet) 97.2 mg PO Q4H [facility]; Taper Stop: 06/21/20 18:29 Last Admin: 06/18/20 11:18 Dose: 97.2 mg Documented by: Senna (Senna Tablet) 2 tablet PO QHS PRN PRN Reason: Constipation Sodium Chloride (0.9% Saline Lock 10 Ml Syringe) 10 - 40 ml IV UD PRN PRN Reason: SALINE FLUSH Thiamine HCl (Thiamine Hydrochloride 100 Mg Tablet) 100 mg PO DAILYCM [place] Last Admin: 06/18/20 08:02 Dose: 100 mg Documented by: Trazodone HCl (Trazodone 100 Mg Tablet) 100 mg PO QHS PRN PRN Reason: INSOMNIA Last Admin: 06/17/20 22:02 Dose: 100 mg Documented by: Medical Necessity - Tobacco Use Smoking Status: Current every day smoker Tobacco Use: Cigarettes Assessment/Plan All Active Problems Back pain (Acute) GI bleed (Resolved) Hypomagnesemia (Resolved) Hepatitis C (Ruled-out) 59-year-old with past medical history of chronic alcohol use disorder, recently discharged on 06/13/20 comes in with acute on chronic low back pain, inability to walk, inability to take care of himself. 1. Acute on chronic low back pain with left lower leg weakness; positive left leg straight test Recent CT of the lumbar spine was negative for any canal stenosis or neural foraminal stenosis MRI of the lumbar spine is pending Folate levels are normal, vitamin B12 levels are pending Will consider spine surgery if MRI is concerning for inciting cause PT/OT to evaluate and treat 2. Alcohol use withdrawal, continue on phenobarbital withdrawal protocol Admitting alcohol level was 49, Continue on thiamine, folic acid 3. Anemia, history of blood transfusion in October 2019. Hb appears to be stable at 7.9. Will check iron stores in am, repeat blood work in am 4. Hypertension, controlled, continue on metoprolol, amlodipine 5. Nicotine dependence, advised to quit, continue on replacement 6. COPD not in acute exacerbation, continue with prn breathing treatments Continue on Symbicort 7. Anxiety/depression/agoraphobia, stable, continue on bupropion, BuSpar, Celexa 8. H/o CVA, bilateral carotid stenosis, more on the right, continue on Plavix 9. Debility, multifactorial, related to uncontrolled/progressive pain is low back with inability to walk SW consulted for discharge planning to SNF 10. DVT prophylaxis?on SCDs Inpatient E&M: 87501 Subs Hosp L2
--- NOTE | 2020-06-18 16:14 | NURSING ---
This nurse encouraged pt twice today to get into chair and out of bed. Pt refused, I don't like that chair. This nurse offered to get a different chair, pt refused.
[2020-06-18] MEDS: Atorvastatin Calcium 80 MG Tablet PO (20:41)
[2020-06-18] MEDS: traZODone 100 MG Tablet PO (20:41)
[2020-06-19] VITALS (11 sets, daily range): BP systolic 127–153; BP diastolic 67–84; PULSE 78–91; RESP 12–22; TEMP 36.4–37; O2SAT 92–99
[2020-06-19] MEDS: oxyCODONE 5 MG Tablet PO ×3 (03:12→20:12)
[2020-06-19] MEDS: Phenobarbital 32.4 MG Tablet 64.8 MG PO ×5 (03:12→18:48)
[2020-06-19 05:59] LABS: Absolute Lymphocyte Count 0.91 X10^3/uL (0.83-4.51); Absolute Neutrophil Count 2.9 X10^3/uL (2.0-7.7); Basophil# 0.02 X10^3/uL; Basophil% 0.5 % (0-1); Eosinophil# 0.09 X10^3/uL; Hematocrit 25.6 % (40-54); Hemoglobin 7.4 g/dL (13.0-16.5); Lymphocyte # 0.91 X10^3/ul (4.0); Lymphocyte % 20.6 % (19-41); Mean Corp Hgb Conc 28.9 g/dL (32-36); Mean Corpuscular Volume 89.8 fL (80-94); Monocyte# 0.47 X10^3/uL; Monocyte% 10.7 % (0-10); NRBC Flagged by Analyzer 0 % (0-5); Neutrophil % 65.7 % (47-70); POSITIVE COUNT YES; Platelet Count 96 K/mm3 (150-450); RBC Distribution Width CV 16.6 % (11.6-14.6); RBC Distribution Width SD 54.2 fl (35.1-43.9); Red Blood Count 2.85 M/mm3 (4.6-6.2); White Blood Count 4.4 K/mm3 (4.4-11.0)
[2020-06-19 06:31] LABS: ALB/GLOB Ratio 0.8 RATIO (0.9-2.4); AST(SGOT) 25 U/L (15-37); Alanine Aminotransfer ALT/SGPT 20 U/L (16-61); Alkaline Phosphatase 163 U/L (45-117); Anion Gap 7 (5-15); BUN 12 mg/dL (7-18); BUN/Creat Ratio 10.6 RATIO (10-20); Calcium,Total 9.1 mg/dL (8.5-10.1); Chloride 104 mmol/L (98-107); Creatinine, Serum 1.13 mg/dL (0.70-1.30); EST Glomerular Filtration Rate 70 mL/min (>60); Est Glom Filt Rate - Afr Amer 85 mL/min (>60); Estimated Creatinine Clearance 65.81 ml/min; Ferritin 33 ng/mL (26-388); Globulin 3.7 g/dL (2.2-4.2); Glucose 107 mg/dL (74-106); Iron 15 ug/dL (65-175); Iron Binding Capacity,Total 487 ug/dL (250-450); PERCENT IRON SATURATION 3.1 % (15.0-55.0); Potassium 3.9 mmol/L (3.5-5.1); Protein, Total 6.7 g/dL (6.4-8.2); Sodium Level 138 mmol/L (136-145)
[2020-06-19] MEDS: Budesonide Respules 0.5 MG/2 ML AMPUL.NEB. INHALATION ×2 (07:05→19:40)
[2020-06-19] MEDS: Albuterol 2.5 MG/3 ML VIAL.NEB. INHALATION ×2 (07:05→19:40)
[2020-06-19] MEDS: Ascorbic Acid 500 MG Tablet PO ×2 (08:05→17:18)
[2020-06-19] MEDS: Folic Acid 1 MG Tablet PO (08:05)
[2020-06-19] MEDS: Thiamine Hydrochloride 100 MG Tablet PO (08:06)
[2020-06-19 08:34] LABS: Vitamin B12 361 pg/mL (211-911)
--- NOTE | 2020-06-19 09:00 | MRI_ITS ---
STUDY: MRI LUMBAR SPINE WITH AND WITHOUT CONTRAST REASON FOR EXAM: Male, 59 years old. progressive leg weakness, inability to walk TECHNIQUE: Standardized fat and water weighted pulse sequences were obtained in the sagittal and axial planes. dotarem 16ml IV was administered for the contrast portion of the examination. COMPARISON: None FINDINGS: T12-L1: Normal endplates. Normal disc height, hydration and morphology. Normal bilateral facet joints. Normal central canal and bilateral lateral recesses. Normal bilateral intervertebral neural foramina. Normal lumbar lordosis. There is no substantial scoliosis. Normal conus medullaris that terminates at the L1-2, L2-3, L3-4, L5-S1: Endplate spondylosis. Decreased disc height and small circumferential disc bulge. Degenerative changes of the bilateral facet joints. Mild narrowing of the central canal and bilateral intervertebral neural foramina. L4-5: Endplate spondylosis. Decreased disc height and small circumferential disc bulge. Degenerative changes of the bilateral facet joints. Mild narrowing of the central canal and moderate narrowing of the right neuroforamen. Severe narrowing of left neural foramen at L4-5 due to left foraminal disc herniation impinging on the left L4 nerve root. Normal visualized sacral ala. Normal visualized paraspinous soft tissue structures. MRI/Spine Lumbar W/WO Contrast IMPRESSION: Multilevel degenerative changes, as described above. Severe narrowing of left neural foramen at L4-5 due to left foraminal disc herniation impinging on the left L4 nerve root. Electronically Signed: Yary Kamara MD at 11:52 EST Tel , Service support ,
[2020-06-19] MEDS: 0.9% Saline Lock 10 ML Syringe IV (09:37)
[2020-06-19] MEDS: Pantoprazole Sodium 20 MG Tablet PO ×2 (09:38→21:14)
[2020-06-19] MEDS: buPROPion (XL) 150 MG TABLET.XL PO (09:39)
[2020-06-19] MEDS: Metoprolol Tartrate 100 MG Tablet PO ×2 (09:39→21:14)
[2020-06-19] MEDS: Clopidogrel Bisulfate 75 MG Tablet PO (09:39)
[2020-06-19] MEDS: Citalopram 20 MG Tablet PO (09:39)
[2020-06-19] MEDS: amLODIPine 5 MG Tablet PO (09:40)
[2020-06-19] MEDS: busPIRone 5 MG Tablet 20 MG PO ×2 (09:40→21:14)
[2020-06-19] MEDS: LORazepam 2 MG/ML Syringe 1 MG IM (10:10)
--- NOTE | 2020-06-19 10:12 | CASEMGMT ---
Healthcare POA form scanned into summary tab, with some LW provisions listed in it. The LW document scanned separately is not completed or signed. Pt has friend Amanda Alexandre listed as POA, and the document also specifies pt's brother Helio Najera is to get no information regarding pt's health. ASIF Weir
--- NOTE | 2020-06-19 10:59 | PCM.PN.HOSP ---
Patient Problems: Active and Suspected Problems Back pain (Acute) Subjective: Patient seen and examined. He was comfortably eating breakfast. He complained of back pain and rated it at 8.5 out of 10. Symptoms otherwise negative. He has remained hemodynamically stable. He is due for an MRI today. Vitals/I&O's: Vital Signs Temp Pulse Resp BP Pulse Ox 97.8 F 88 12 132/73 H 96 06/19/20 03:17 06/19/20 10:38 06/19/20 10:38 06/19/20 10:38 06/19/20 10:38 Oxygen Flow Rate (L/min) 2 Oxygen Delivery Method Nasal Cannula Weight: 182 lb 4.8 oz Body Mass Index (BMI) 29.2 Finger Stick Blood Glucose 120 Intake and Output for Last 24 Hours 06/17/20 06/18/20 06/19/20 23:59 23:59 23:59 Intake Total 997.5 / 997.5 840 / 840 Output Total 650 / 650 1800 / 1800 Balance 347.5 / 347.5 -960 / -960 General: Alert, Oriented x3, Cooperative HEENT: Atraumatic, PERRLA, EOMI, Normocephalic Oral: Dry Mucosa Neck: Supple, No JVD, Negative Carotid Bruits Lungs: Clear to auscultation, Normal air movement Cardiovascular: Regular rate, No murmurs Abdomen: Bowel Sounds Present, Soft, Non Tender Extremities: No edema, Capillary Refill Less than 3 Seconds Skin: No rashes, No breakdown Musculoskeletal: No Tenderness to Palpation of Joints or Extremities Neurological: Cranial nerves II-XII grossly intact, Neuro grossly intact, Motor Exam 5/5 strength throughout Psych/Mental Status: Normal Affect, Appropriate, Alert and oriented to time, place, person, mood and affect Laboratory Results 06/17/20 14:50: Vitamin B12 361 06/19/20 05:36: WBC 4.4, RBC 2.85 L, Hgb 7.4 L, Hct 25.6 L, MCV 89.8, MCH 26.0 L, MCHC 28.9 L D, RDW Std Deviation 54.2 H, RDW Coeff of Donnie 16.6 H, Plt Count 96 L, MPV 10.0, Immature Gran % (Auto) 0.500, Neut % (Auto) 65.7, Lymph % (Auto) 20.6, [place] % (Auto) 10.7 H, Eos % (Auto) 2.0, Baso % (Auto) 0.5, Absolute Neuts (auto) 2.9, Absolute Lymphs (auto) 0.91, Nucleated RBC % 0 06/19/20 05:36: Sodium 138, Potassium 3.9, Chloride 104, Carbon Dioxide 27.0, Anion Gap 7, BUN 12, Creatinine 1.13, Estim Creat Clear Calc 65.81, Est GFR (MDRD) Af Amer 85, Est GFR (MDRD) Non-Af 70, BUN/Creatinine Ratio 10.6, Glucose 107 H, Calcium 9.1, Iron 15 L, TIBC 487 H, Iron Saturation 3.1 L, Ferritin 33, Total Bilirubin 0.50, AST 25, ALT 20, Alkaline Phosphatase 163 H, Total Protein 6.7, Albumin 3.0 L, Globulin 3.7, Albumin/Globulin Ratio 0.8 L Current Medications Acetaminophen (Acetaminophen 325 Mg Tablet) 650 mg PO Q6H PRN PRN PRN Reason: Pain Score 1-10 Last Admin: 06/17/20 23:32 Dose: 650 mg Documented by: Al Hydroxide/Mg Hydroxide (Mag Hydrox/Al Hydrox/Simeth 30 Ml Udc) 30 ml PO Q6H PRN PRN PRN Reason: dyspesia Albuterol Sulfate (Albuterol 2.5 Mg/3 Ml Vial.Neb.) 2.5 mg INHALATION Q4H PRN PRN PRN Reason: SOB &/OR WHEEZING Last Admin: 06/17/20 19:39 Dose: 2.5 mg Documented by: Albuterol Sulfate (Albuterol 2.5 Mg/3 Ml Vial.Neb.) 2.5 mg INHALATION Q6HWA.RT [facility] Last Admin: 06/19/20 07:05 Dose: 2.5 mg Documented by: Amlodipine Besylate (Amlodipine 5 Mg Tablet) 5 mg PO DAILY [facility] Last Admin: 06/19/20 09:40 Dose: 5 mg Documented by: Ascorbic Acid (Ascorbic Acid 500 Mg Tablet) 500 mg PO BIDCM [facility] Last Admin: 06/19/20 08:05 Dose: 500 mg Documented by: Atorvastatin Calcium (Atorvastatin Calcium 80 Mg Tablet) 80 mg PO QHS [facility] Last Admin: 06/18/20 20:41 Dose: 80 mg Documented by: Bisacodyl (Bisacodyl 10 Mg Suppository) 10 mg RC DAILY PRN PRN Reason: Constipation Budesonide (Budesonide Respules 0.5 Mg/2 Ml Ampul.Neb.) 0.5 mg INHALATION Q12H.RT [facility] Last Admin: 06/19/20 07:05 Dose: 0.5 mg Documented by: Bupropion HCl (Bupropion (Xl) 150 Mg Tablet.Xl) 150 mg PO DAILY [facility] Last Admin: 06/19/20 09:39 Dose: 150 mg Documented by: Buspirone HCl (Buspirone 5 Mg Tablet) 20 mg PO BID [facility] Last Admin: 06/19/20 09:40 Dose: 20 mg Documented by: Cholecalciferol (Cholecalciferol (Vit D3) 1,000 Unit (25mcg)) 2,000 unit PO DAILY [facility] Last Admin: 06/19/20 09:39 Dose: 2,000 unit Documented by: Citalopram Hydrobromide (Citalopram 20 Mg Tablet) 20 mg PO DAILY [facility] Last Admin: 06/19/20 09:39 Dose: 20 mg Documented by: Clopidogrel Bisulfate (Clopidogrel Bisulfate 75 Mg Tablet) 75 mg PO DAILY [facility] Last Admin: 06/19/20 09:39 Dose: 75 mg Documented by: Dicyclomine HCl (Dicyclomine 10 Mg Capsule) 20 mg PO Q6H PRN PRN PRN Reason: abdominal discomfort Folic Acid (Folic Acid 1 Mg Tablet) 1 mg PO DAILY@0800 [facility] Last Admin: 06/19/20 08:05 Dose: 1 mg Documented by: Gabapentin (Gabapentin 300 Mg Capsule) 300 mg PO Q8H PRN PRN PRN Reason: moderate to severe anxiety Last Admin: 06/18/20 02:05 Dose: 300 mg Documented by: Hydroxyzine Pamoate (Hydroxyzine Jacinta 25 Mg Capsule) 50 mg PO Q4H PRN PRN PRN Reason: mild anxiety Last Admin: 06/18/20 20:41 Dose: 50 mg Documented by: Sodium Chloride () 250 mls @ 15 mls/hr IV .[id number] PRN PRN Reason: Saline Flush Sodium Chloride () 250 mls @ 15 mls/hr IV .[id number] PRN PRN Reason: Additional IVPB Infusion Lidocaine (Lidocaine 5% Patch) 1 patch TOPICAL DAILY [facility]; Protocol Last Admin: 06/18/20 07:58 Dose: 1 patch Documented by: Loperamide HCl (Loperamide 2 Mg Capsule) 2 mg PO Q4H PRN PRN PRN Reason: LOOSE STOOLS Metoprolol Tartrate (Metoprolol Tartrate 100 Mg Tablet) 100 mg PO BID [facility] Last Admin: 06/19/20 09:39 Dose: 100 mg Documented by: Nicotine (Nicotine 21 Mg Patch) 21 mg TD DAILY [facility] Last Admin: 06/19/20 09:38 Dose: 21 mg Documented by: Nicotine Polacrilex (Nicotine Polacrilex 2 Mg Gum) 2 mg PO Q2H PRN PRN PRN Reason: Nicotine Craving Ondansetron HCl (Ondansetron 4 Mg/2 Ml Vial) 4 mg IV Q8H PRN PRN PRN Reason: NAUSEA/VOMITING Ondansetron HCl (Ondansetron 8 Mg Tablet) 8 mg PO Q8H PRN PRN PRN Reason: NAUSEA Oxycodone HCl (Oxycodone 5 Mg Tablet) 5 mg PO Q4H PRN PRN PRN Reason: Pain Score 4-10 Last Admin: 06/19/20 08:04 Dose: 5 mg Documented by: Pantoprazole Sodium (Pantoprazole Sodium 20 Mg Tablet) 20 mg PO BID [facility] Last Admin: 06/19/20 09:38 Dose: 20 mg Documented by: Phenobarbital (Phenobarbital 32.4 Mg Tablet) 64.8 mg PO Q4H [facility]; Taper Stop: 06/21/20 18:29 Last Admin: 06/19/20 05:26 Dose: 64.8 mg Documented by: Senna (Senna Tablet) 2 tablet PO QHS PRN PRN Reason: Constipation Sodium Chloride (0.9% Saline Lock 10 Ml Syringe) 10 - 40 ml IV UD PRN PRN Reason: SALINE FLUSH Last Admin: 06/19/20 09:37 Dose: 10 ml Documented by: Thiamine HCl ([facility] Hydrochloride 100 Mg [facility]t) [facility] Last Admin: 06/19/20 08:06 Dose: 100 mg Documented by: Trazodone HCl (Trazodone 100 Mg Tablet) 100 mg PO QHS PRN PRN Reason: INSOMNIA Last Admin: 06/18/20 20:41 Dose: 100 mg Documented by: STROKE Vital Signs/Narrative: Vital Signs Pulse Resp BP Pulse Ox 06/19/20 10:38 88 12 132/73 H 96 06/19/20 10:21 87 12 127/67 H 95 06/19/20 09:39 90 06/19/20 07:05 88 20 H Medical Necessity - Tobacco Use Smoking Status: Current every day smoker Tobacco Use: Cigarettes Assessment/Plan All Active Problems Back pain (Acute) GI bleed (Resolved) Hypomagnesemia (Resolved) Hepatitis C (Ruled-out) #Acute on chronic lower back pain with left lower leg weakness still complains of 8.5/10 lower back pain to have MRI of the lumbar spine today. continue curent pain meds. #Acute alcohol withdrawal on phenobarb withdrawal protocol monitor CIWA score #Iron deficiency anemia hb is 7.4. iron panel shows iron level of 15, with iron saturation of 3.1, and TIBC of 487. will check stool for occult blood. had EGD in 2019 which showed erythematous mucosa in the gastric antrum, and nonbleeding rgade II varices no colonoscopy on file give IV iron infusion whilst in hospital. to follow up with general surgery/gastroenterology on outpatient basis #Hypertension: controlled. On metoprolol and amlodipine #COPD: Not in exacerbation. On Symbicort. Breathing treatments as needed. #Anxiety and depression: On bupropion, Celexa and BuSpar #History of CVA with bilateral carotid stenosis: On Plavix and statin. #Debility due to chronic back pain: PT OT on board. Fall precaution. Inpatient E&M: 85922 Subs Hosp L2
--- NOTE | 2020-06-19 10:59 | NURSING ---
PT NEEDS REPETITIVE REMINDERS TO HOLD STILL WHILE IN THE MRI.
[2020-06-19] MEDS: Lidocaine 5% Patch 1 PATCH TOPICAL (11:38)
--- NOTE | 2020-06-19 11:40 | CASEMGMT ---
Social Work Note MALIA updated that pt is requesting SNF at discharge. SW in to speak with pt. SW introduced self and role at [facility]. Pt is alert and orientated, does appear sleepy during conversation with this worker. Pt states he lives alone with a linda. Pt states that's the problem, I live alone. Pt states he lives in a two story apartment but sleeps downstairs. Pt states he has 15 steps to get from level to level in apartment and has fell of the steps before. Pt states [facility] and will be [facility]. SW asked pt about HHC. Pt brought up how he interviewed people for a roommate and a male was living with him. Pt states he is not milian though and his roommate at that time was milian and it didn't work out because his roommate was all over him. Pt states that roommate has moved out. Pt states he has never been to a SNF before, states he has never had HHC before. SW asked pt about discharge planning. Pt states it is too soon to tell. SW informed pt that medically pt will likely be ready for discharge soon and a plan needs to be established. Patient was provided a list of SNF providers including quality and resource use data and consistent with the patient?s preferred geographic region, medical needs, and insurance network. Pt states that he would like to return home with HHC. SW informed pt that [facility] GALLARDO can provide pt with list of HHC. SW asked pt about his ETOH use, Pt denied wanting any resources as he states I don't want to quit, alcohol is all I have. MALIA spoke with pt regarding this. Pt states he does have good support through his family and friends. SW asked pt about Mental Health Hx. Pt states his father had anxiety and depression. SW educated pt on anxiety and depression. Pt states he thinks he has both. Pt states he has never been in counseling before, pt denied wanting counseling resources. Pt denied any history of suicidal thoughts/plans/ideations. Pt denied any current suicidal thoughts/plans/ideations. 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 MALIA encouraged pt to call Poultry Hatchery Supervisor and make sure Poultry Hatchery Supervisor has right address and asked pt to mail copy again to pt. Pt states understanding, denied additional needs or concerns at this time. MALIA updated RN CM on pt's request for HHC but informed RN CM That pt appeared sleepy during conversation, will need followed up with once pt is more awake. Plan: TBD. Pt now states he would like to return home with HHC. MALIA and [facility]IANCA GALLARDO to continue to follow. Berta Ramirez HEALTHCARE CONSULTING MANAGER, DISPLAY ASSOCIATE
[2020-06-19] MEDS: Sodium Ferric Gluconat 250 MG in 0.9% Normal Saline 250 ML 135 MG IV (14:10)
[2020-06-19] MEDS: hydrOXYzine PAM 25 MG Capsule 50 MG PO (20:12)
--- NOTE | 2020-06-19 20:52 | CPS ---
On arrival to pt.'s room to deliver breathing tx.'s, I checked pt.'s SpO2 during pre-assessment. Pt.'s SpO2 was 80-81% at this time. I got a nasal cannula for the pt., and I started him on 3L. Pt.'s SpO2 was 97% before I left. Pt.'s nurse made aware of this.
[2020-06-19] MEDS: Atorvastatin Calcium 80 MG Tablet PO (21:14)
[2020-06-19] MEDS: LORazepam 1 MG Tablet 2 MG PO (21:15)
[2020-06-20] VITALS (53 sets, daily range): BP systolic 86–190; BP diastolic 38–101; PULSE 74–105; RESP 10–22; TEMP 36.5–37.2; O2SAT 76–100; BMI 28.1
--- NOTE | 2020-06-20 00:13 | NURSING ---
pt was unresponsive, sitter at bedside. called porsche linda at [phone]. cpr started. pt was asystole on monitor. epi was given. , Rn, full service supervisor and Chorus Master's in room. pt got intubated and transferred in ICU room 2. gave face to face report to Britany Reed from ICU. This Rn tried to call Trisha Najera,pts mother and publicity person, unable to reach and left a voicemail. Will call again.
--- NOTE | 2020-06-20 00:18 | CB_ITS ---
Code Blue Report CODE JOSSY was called at about 11:50 PM on 06/19/2020. ACLS protocol was followed with high intensity CPR. Patient received 2 doses of epinephrine 1 mg dose. monitor technician shows asystole. After about 10 minutes, ROSC was achieved. Subsequently patient was intubated in the room. Blood pressure check, stat labs, chest x-ray, EKG, ABG and immediate transfer to ICU ordered. Patient was started on AC, volume control mode of ventilator. Front Office Manager consult. On exam Pupils sluggish reactive, no corneal reflex Heart: S1-S2 muffled. Carotids, radial and femoral pulses palpable Respiration: Patient intubated, air entry on both side. On ventilator Transfer order ordered Patient Problems: Active and Suspected Problems Back pain (Acute) - Physical Exam Vitals/I&O's: Vital Signs Temp Pulse Resp BP Pulse Ox 98.6 F 90 18 148/84 H 94 06/19/20 20:15 06/19/20 21:14 06/19/20 20:15 06/19/20 21:14 06/19/20 20:15 Oxygen Flow Rate (L/min) 2 Oxygen Delivery Method Nasal Cannula Weight: 182 lb 4.8 oz Body Mass Index (BMI) 29.2 Finger Stick Blood Glucose 120 Intake and Output for Last 24 Hours 06/18/20 06/19/20 06/20/20 23:59 23:59 23:59 Intake Total 840 / 840 1570 / 1570 Output Total 1800 / 1800 Balance -960 / -960 1570 / 1570 Laboratory Results 06/17/20 14:50: Vitamin B12 361 06/19/20 05:36: WBC 4.4, RBC 2.85 L, Hgb 7.4 L, Hct 25.6 L, MCV 89.8, MCH 26.0 L , MCHC 28.9 L D, RDW Std Deviation 54.2 H, RDW Coeff of Donnie 16.6 H, Plt Count 96 L, MPV 10.0, Immature Gran % (Auto) 0.500, Neut % (Auto) 65.7, Lymph % (Auto) 20 .6, [place] % (Auto) 10.7 H, Eos % (Auto) 2.0, Baso % (Auto) 0.5, Absolute Neuts (auto) 2.9, Absolute Lymphs (auto) 0.91, Nucleated RBC % 0 06/19/20 05:36: Sodium 138, Potassium 3.9, Chloride 104, Carbon Dioxide 27.0, Anion Gap 7, BUN 12, Creatinine 1.13, Estim Creat Clear Calc 65.81, Est GFR (MDRD) Af Amer 85, Est GFR (MDRD) Non-Af 70, BUN/Creatinine Ratio 10.6, Glucose 107 H, Calcium 9.1, Iron 15 L, TIBC 487 H, Iron Saturation 3.1 L, Ferritin 33, Total Bilirubin 0.50, AST 25, ALT 20, Alkaline Phosphatase 163 H, Total Protein 6.7, Albumin 3.0 L, Globulin 3.7, Albumin/Globulin Ratio 0.8 L Current Medications Acetaminophen (Acetaminophen 325 Mg Tablet) 650 mg PO Q6H PRN PRN PRN Reason: Pain Score 1-10 Last Admin: 06/17/20 23:32 Dose: 650 mg Documented by: Al Hydroxide/Mg Hydroxide (Mag Hydrox/Al Hydrox/Simeth 30 Ml Udc) 30 ml PO Q6H PRN PRN PRN Reason: dyspesia Albuterol Sulfate (Albuterol 2.5 Mg/3 Ml Vial.Neb.) 2.5 mg INHALATION Q4H PRN PRN PRN Reason: SOB &/OR WHEEZING Last Admin: 06/17/20 19:39 Dose: 2.5 mg Documented by: Albuterol Sulfate (Albuterol 2.5 Mg/3 Ml Vial.Neb.) 2.5 mg INHALATION Q6HWA.RT [facility] Last Admin: 06/19/20 19:40 Dose: 2.5 mg Documented by: Amlodipine Besylate (Amlodipine 5 Mg Tablet) 5 mg PO DAILY [facility] Last Admin: 06/19/20 09:40 Dose: 5 mg Documented by: Ascorbic Acid (Ascorbic Acid 500 Mg Tablet) 500 mg PO BIDCM [facility] Last Admin: 06/19/20 17:18 Dose: 500 mg Documented by: Atorvastatin Calcium (Atorvastatin Calcium 80 Mg Tablet) 80 mg PO QHS [facility] Last Admin: 06/19/20 21:14 Dose: 80 mg Documented by: Bisacodyl (Bisacodyl 10 Mg Suppository) 10 mg RC DAILY PRN PRN Reason: Constipation Budesonide (Budesonide Respules 0.5 Mg/2 Ml Ampul.Neb.) 0.5 mg INHALATION Q12H.RT [facility] Last Admin: 06/19/20 19:40 Dose: 0.5 mg Documented by: Bupropion HCl (Bupropion (Xl) 150 Mg Tablet.Xl) 150 mg PO DAILY [facility] Last Admin: 06/19/20 09:39 Dose: 150 mg Documented by: Buspirone HCl (Buspirone 5 Mg Tablet) 20 mg PO BID [facility] Last Admin: 06/19/20 21:14 Dose: 20 mg Documented by: Cholecalciferol (Cholecalciferol (Vit D3) 1,000 Unit (25mcg)) 2,000 unit PO DAILY [facility] Last Admin: 06/19/20 09:39 Dose: 2,000 unit Documented by: Citalopram Hydrobromide (Citalopram 20 Mg Tablet) 20 mg PO DAILY [facility] Last Admin: 06/19/20 09:39 Dose: 20 mg Documented by: Clopidogrel Bisulfate (Clopidogrel Bisulfate 75 Mg Tablet) 75 mg PO DAILY [facility] Last Admin: 06/19/20 09:39 Dose: 75 mg Documented by: Dicyclomine HCl (Dicyclomine 10 Mg Capsule) 20 mg PO Q6H PRN PRN PRN Reason: abdominal discomfort Folic Acid (Folic Acid 1 Mg Tablet) 1 mg PO DAILY@0800 [facility] Last Admin: 06/19/20 08:05 Dose: 1 mg Documented by: Gabapentin (Gabapentin 300 Mg Capsule) 300 mg PO Q8H PRN PRN PRN Reason: moderate to severe anxiety Last Admin: 06/18/20 02:05 Dose: 300 mg Documented by: Hydroxyzine Pamoate (Hydroxyzine Jacinta 25 Mg Capsule) 50 mg PO Q4H PRN PRN PRN Reason: mild anxiety Last Admin: 06/19/20 20:12 Dose: 50 mg Documented by: Sodium Chloride () 250 mls @ 15 mls/hr IV .[id number] PRN PRN Reason: Saline Flush Sodium Chloride () 250 mls @ 15 mls/hr IV .[id number] PRN PRN Reason: Additional IVPB Infusion Lidocaine (Lidocaine 5% Patch) 1 patch TOPICAL DAILY [facility]; Protocol Last Admin: 06/19/20 11:38 Dose: 1 patch Documented by: Loperamide HCl (Loperamide 2 Mg Capsule) 2 mg PO Q4H PRN PRN PRN Reason: LOOSE STOOLS Lorazepam (Lorazepam 1 Mg Tablet) 2 mg PO Q2H PRN PRN; Protocol PRN Reason: CIWA score > 8 but <15 Last Admin: 06/19/20 21:15 Dose: 2 mg Documented by: Lorazepam (Lorazepam 1 Mg Tablet) 2 mg PO UD PRN; Protocol PRN Reason: CIWA score >/=15. Lorazepam (Lorazepam 2 Mg/Ml Syringe) 2 mg IV Q2H PRN PRN; Protocol PRN Reason: CIWA score > 8 but <15 Lorazepam (Lorazepam 2 Mg/Ml Syringe) 2 mg IV UD PRN; Protocol PRN Reason: CIWA score >/=15. Metoprolol Tartrate (Metoprolol Tartrate 100 Mg Tablet) 100 mg PO BID [facility] Last Admin: 06/19/20 21:14 Dose: 100 mg Documented by: Nicotine (Nicotine 21 Mg Patch) 21 mg TD DAILY [facility] Last Admin: 06/19/20 09:38 Dose: 21 mg Documented by: Nicotine Polacrilex (Nicotine Polacrilex 2 Mg Gum) 2 mg PO Q2H PRN PRN PRN Reason: Nicotine Craving Ondansetron HCl (Ondansetron 4 Mg/2 Ml Vial) 4 mg IV Q8H PRN PRN PRN Reason: NAUSEA/VOMITING Ondansetron HCl (Ondansetron 8 Mg Tablet) 8 mg PO Q8H PRN PRN PRN Reason: NAUSEA Oxycodone HCl (Oxycodone 5 Mg Tablet) 5 mg PO Q4H PRN PRN PRN Reason: Pain Score 4-10 Last Admin: 06/19/20 20:12 Dose: 5 mg Documented by: Pantoprazole Sodium (Pantoprazole Sodium 20 Mg Tablet) 20 mg PO BID [facility] Last Admin: 06/19/20 21:14 Dose: 20 mg Documented by: Phenobarbital (Phenobarbital 32.4 Mg Tablet) 64.8 mg PO Q6H [facility]; Taper Stop: 06/21/20 18:29 Last Admin: 06/19/20 18:48 Dose: 64.8 mg Documented by: Senna (Senna Tablet) 2 tablet PO QHS PRN PRN Reason: Constipation Sodium Chloride (0.9% Saline Lock 10 Ml Syringe) 10 - 40 ml IV UD PRN PRN Reason: SALINE FLUSH Last Admin: 06/19/20 09:37 Dose: 10 ml Documented by: Thiamine HCl (Thiamine Hydrochloride 100 Mg Tablet) 100 mg PO DAILYCM [place] Last Admin: 06/19/20 08:06 Dose: 100 mg Documented by: Trazodone HCl (Trazodone 100 Mg Tablet) 100 mg PO QHS PRN PRN Reason: INSOMNIA Last Admin: 06/18/20 20:41 Dose: 100 mg Documented by: Assessment/Plan All Active Problems Back pain (Acute) GI bleed (Resolved) Hypomagnesemia (Resolved) Hepatitis C (Ruled-out)
--- NOTE | 2020-06-20 00:21 | RAD_ITS ---
STUDY: X-RAY CHEST REASON FOR EXAM: Male, 59 years old. intubated TECHNIQUE: Single frontal view of the chest. COMPARISON: 06/12/2020. FINDINGS: There is been placement of a nasogastric tube the tip projecting over the topography of the stomach. EKG leads artifacts are present. Endotracheal tube is been placed with the tip approximately 4.3 cm superior to the vitaly. There is a stent noted projecting over the right lung apex. There is some biapical scarring. Right basilar atelectasis. There is no pneumothorax or pleural effusion identified. Chronic lung changes. Mild cardiomegaly. Aortic calcifications. There are diffuse degenerative changes of the visualized thoracic spine. There is degenerative osteoarthritis of the bilateral shoulders. There is no demonstrated abnormality of the visualized soft tissue structures of the upper abdomen. RAD/Chest 1 View (Portable) IMPRESSION: Placement of endotracheal tube and nasogastric tube. Cardiomegaly. Mild pulmonary vascular congestion. No focal consolidation identified. Otherwise no significant interval change in appearance of the chest. Electronically Signed: Andrey Roa MD at 1:46 EST Tel , Service support ,
--- NOTE | 2020-06-20 00:21 | EKG12_ITS ---
Test Reason : CODE BLUE Blood Pressure : / mmHG Vent. Rate : 078 BPM Atrial Rate : 078 BPM P-R Int : 146 ms QRS Dur : 082 ms QT Int : 406 ms P-R-T Axes : 022 072 063 degrees QTc Int : 462 ms Normal sinus rhythm Normal ECG No previous ECGs available Confirmed by WILFRED WASHINGTON, ANGELES ([id number]), editor city SUE [place]OM[place] ([id number]) on 06/22/2020 11:09:08 AM Referred By: ELINA Confirmed By:ANGELES HARDIN MD
--- NOTE | 2020-06-20 00:23 | NURSING ---
0024-Tried calling Trisha Najera, pts mother, no answer. will call again.
[2020-06-20] MEDS: Propofol 10MG/Ml 1,000 MG/100 ML Bottle 5 MG CONT INF (00:30)
[2020-06-20 00:35] LABS: Allen Test Positive; Base Excess -9 mmol/L (-2 to +2); Bicarbonate 19.6 mmol/L (22-26); Blood Gas Specimen Type ART; FI02 60; Mode AC; O2 Delivery Device Adult Vent; PEEP 5; PO2 114 mmHG (75-100); RR 14; SITE R Radial; SO2 97 % (95-99); Total Carbon Dioxide 21 mmol/L; Vt 450; pCO2 51.8 mmHg (35-45); pH 7.19 (7.35-7.45)
--- NOTE | 2020-06-20 00:48 | NURSING ---
0049- called pts next of kin Mimi Chávez at this time. no answer, was not able to leave a voicemail d/t her mailbox is full.
--- NOTE | 2020-06-20 00:49 | PCM.OP.PRO ---
Problem List (1) Cardiopulmonary arrest with successful resuscitation Status: Acute Procedure Report Date of Procedure: 06/20/20 CODE JOSSY was called about 11:50 PM on 06/19/2020. Patient had CPR and ROSC achieved. Under direct visualization with MAC 4 blade, vallecula, epiglottis not visualized. Patient was intubated with 7.5 mg G-tube without anesthetic agent. ABG, chest x-ray ordered. Patient is being transferred to ICU for further care. Chest x-ray individually reviewed and shows tip of ET tube about 2 cm above vitaly and OG tube below diaphragm, body of the stomach. Official report pending. Procedures: [id number] Insert Emergency Airway
--- NOTE | 2020-06-20 00:53 | NURSING ---
0051-called pts friend Mimi Chávez one ore time, no answer. called Mariajose Mccann, pts friend listed on his contact info. no answer.
[2020-06-20] MEDS: Sodium Bicarbonate 8.4% 50 ML Syringe 50 MEQ IV (00:57)
[2020-06-20] MEDS: 0.9% Saline Lock 10 ML Syringe IV (01:07)
--- NOTE | 2020-06-20 01:26 | CPS ---
Dr. Merino notified regarding pt.'s critically low pH (7.18); wants repeat ABG two hours after initial one
[2020-06-20 01:36] LABS: Absolute Lymphocyte Count 0.21 X10^3/uL (0.83-4.51); Absolute Neutrophil Count 11.2 X10^3/uL (2.0-7.7); Basophil# 0.02 X10^3/uL; Basophil% 0.2 % (0-1); Hemoglobin 7.4 g/dL (13.0-16.5); Lymphocyte # 0.21 X10^3/ul (4.0); Lymphocyte % 1.7 % (19-41); Mean Corp Hgb Conc 27.4 g/dL (32-36); Mean Corpuscular Hgb 25.9 pg (27.0-32.0); Mean Corpuscular Volume 94.4 fL (80-94); Mean Platelet Vol. 10.9 fl (6.2-12.0); Monocyte# 0.83 X10^3/uL; Monocyte% 6.8 % (0-10); NRBC Flagged by Analyzer 0 % (0-5); Neutrophil # 11.15 X10^3/uL (2.7-7.7); Neutrophil % 90.7 % (47-70); POSITIVE DIFFERENTIAL YES; Platelet Count 117 K/mm3 (150-450); RBC Distribution Width SD 59.2 fl (35.1-43.9); Red Blood Count 2.86 M/mm3 (4.6-6.2); White Blood Count 12.3 K/mm3 (4.4-11.0)
[2020-06-20 01:37] LABS: Differential Indicated SCAN CRITERIA MET
[2020-06-20 02:35] LABS: ALB/GLOB Ratio 0.8 RATIO (0.9-2.4); AST(SGOT) 43 U/L (15-37); Alanine Aminotransfer ALT/SGPT 21 U/L (16-61); Albumin, Serum 2.9 g/dL (3.2-5.0); Alkaline Phosphatase 141 U/L (45-117); Anion Gap 7 (5-15); BUN 14 mg/dL (7-18); BUN/Creat Ratio 10.4 RATIO (10-20); CPK Total, Creatine Kinase 119 U/L (39-308); Calcium,Total 8.9 mg/dL (8.5-10.1); Chloride 108 mmol/L (98-107); Creatinine, Serum 1.34 mg/dL (0.70-1.30); EST Glomerular Filtration Rate 58 mL/min (>60); Est Glom Filt Rate - Afr Amer 70 mL/min (>60); Estimated Creatinine Clearance 55.49 ml/min; Globulin 3.7 g/dL (2.2-4.2); Glucose 149 mg/dL (74-106); Magnesium 1.6 mg/dL (1.6-2.6); Phosphorus 6.8 mg/dL (2.5-4.9); Potassium 5.1 mmol/L (3.5-5.1); Protein, Total 6.6 g/dL (6.4-8.2); Sodium Level 140 mmol/L (136-145); Triglycerides 66 mg/dL
[2020-06-20 02:36] LABS: Allen Test Positive; Base Excess 1 mmol/L (-2 to +2); Bicarbonate 26.5 mmol/L (22-26); Blood Gas Specimen Type ART; FI02 60; Mode AC; O2 Delivery Device Adult Vent; PEEP 5; PO2 95 mmHG (75-100); RR 14; SITE R Radial; SO2 97 % (95-99); Total Carbon Dioxide 28 mmol/L; Vt 450; pCO2 44.6 mmHg (35-45); pH 7.38 (7.35-7.45)
--- NOTE | 2020-06-20 02:40 | NURSING ---
VIRGIL Rodriguez, returned call. Aware that patient has been transferred to ICU.
[2020-06-20] MEDS: Furosemide 20 MG/2 ML VIAL IV (02:55)
[2020-06-20 03:12] LABS: Bacteria 0 SEEN /hpf (None Seen); Mucous, Urine 0 SEEN /hpf (<or=2+)
[2020-06-20 03:13] LABS: Color, Urine Yellow (Yellow); Glucose, Dipstick Normal (Normal); Ketone-Dipstick 5 mg/dl (Negative); Leukocyte Esterase-Dipstick 25 /ul (Negative); Nitrite-Dipstick Negative (Negative); Occult Blood-Urine 150 /ul (Negative); Protein-Dipstick 500 mg/dl (Negative); Urine Bilirubin Dipstick Negative (Negative); Urine Clarity Clear (Clear); Urine Urobilinogen Normal (Normal)
[2020-06-20 03:19] LABS: Red Blood Cells-Urine 5-10 SEEN /hpf (0-5); Squamous Epithelial Cells - UA 0-5 SEEN /hpf (0-5); Transitional Epithelial - Ur 0-5 SEEN /hpf (0-5); White Blood Cells 10-25 SEEN /hpf (0-5)
[2020-06-20 05:38] LABS: Absolute Lymphocyte Count 0.21 X10^3/uL (0.83-4.51); Basophil# 0.01 X10^3/uL; Basophil% 0.1 % (0-1); Hematocrit 25.6 % (40-54); Hemoglobin 7.5 g/dL (13.0-16.5); Lymphocyte # 0.21 X10^3/ul (4.0); Lymphocyte % 2.1 % (19-41); Mean Corp Hgb Conc 29.3 g/dL (32-36); Mean Corpuscular Volume 88.9 fL (80-94); Mean Platelet Vol. 9.8 fl (6.2-12.0); Monocyte# 0.53 X10^3/uL; Monocyte% 5.4 % (0-10); NRBC Flagged by Analyzer 0 % (0-5); Neutrophil # 8.95 X10^3/uL (2.7-7.7); Neutrophil % 91.7 % (47-70); POSITIVE DIFFERENTIAL YES; Platelet Count 101 K/mm3 (150-450); RBC Distribution Width CV 16.9 % (11.6-14.6); Red Blood Count 2.88 M/mm3 (4.6-6.2); White Blood Count 9.8 K/mm3 (4.4-11.0)
[2020-06-20 05:59] LABS: ALB/GLOB Ratio 0.8 RATIO (0.9-2.4); AST(SGOT) 30 U/L (15-37); Alanine Aminotransfer ALT/SGPT 20 U/L (16-61); Alkaline Phosphatase 147 U/L (45-117); Anion Gap 7 (5-15); BUN 15 mg/dL (7-18); BUN/Creat Ratio 11.1 RATIO (10-20); Chloride 107 mmol/L (98-107); Creatinine, Serum 1.35 mg/dL (0.70-1.30); EST Glomerular Filtration Rate 57 mL/min (>60); Est Glom Filt Rate - Afr Amer 69 mL/min (>60); Estimated Creatinine Clearance 55.08 ml/min; Globulin 3.6 g/dL (2.2-4.2); Glucose 134 mg/dL (74-106); Protein, Total 6.6 g/dL (6.4-8.2); Sodium Level 142 mmol/L (136-145)
[2020-06-20 06:05] LABS: Differential Indicated SCAN CRITERIA MET
--- NOTE | 2020-06-20 06:23 | PCM.CON.CC ---
Reason for Consult Date of Consultation: 06/20/20 Reason for Consultation: Acute hypoxemic respiratory failure History of Present Illness: The patient is a 59-year-old male, with a history as outlined below, who initially presented to the emergency department on June 17 with complaints of back pain. The patient does have a history of chronic alcohol and tobacco dependency. He typically drinks between 6 and 12 beers per day. The patient had just been recently admitted to the hospital for 1 day at the beginning of June 2020 with similar complaints of back pain. On presentation to the emergency department, the patient was noted to be afebrile and hemodynamically stable. He was initially maintaining appropriate oxygen saturations on room air. Laboratory evaluation revealed evidence of normocytic anemia with a hemoglobin of 7.9 g/dL. The patient was also thrombocytopenic with a platelet count of 104,000. Chemistry profile revealed a sodium of 127 and bicarbonate of 18. AST and ALT were within normal limits. Alcohol level was noted to be 49. L-spine MRI revealed multilevel degenerative changes. The patient was initially admitted to the medical surgical floor for management of his acute on chronic low back pain. In addition, the patient was noted to be demonstrating signs and symptoms of possible alcohol withdrawal and was started on a phenobarbital taper. During the late evening hours of June 19, a CODE BLUE was called after the patient was found to be unresponsive. It appears that the patient was given BuSpar at 2113, hydroxyzine at 2011, Ativan at 2114, oxycodone at 2011 and trazodone at 2040. ACLS was initiated and return of spontaneous circulation was achieved after 2 rounds of epinephrine. The patient was emergently intubated and transferred to the medical intensive care unit for further management. Post intubation ABG revealed a pH of 7.38 with a corresponding PCO2 of 44 and PO2 of 95. 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 Abdullahi. Esophageal varices due to chronic alcohol dependence and chronic liver disease. Anxiety (Chronic) Pancreatitis (Chronic) Stroke (Chronic) Alcohol abuse (Chronic) Depression (Chronic) COPD (chronic obstructive pulmonary disease) (Chronic) Hyperlipemia (Chronic) GERD (gastroesophageal reflux disease) (Chronic) HTN (hypertension) (Chronic) Colonic polyp (Chronic) Colon, diverticulosis (Chronic) Nicotine addiction (Chronic) RENETTA (obstructive sleep apnea) (Chronic) non-compliant with PAP Carotid stenosis (Chronic) has had a R CEA Allergies lisinopril Allergy (Severe, Verified 06/17/20 06:29) Angioedema bee venom protein (honey bee) Allergy (Verified 06/17/20 06:29) Swelling Home Medications: Ambulatory Orders Medication Instructions Recorded Clopidogrel Bisulfate [Plavix] 75 mg PO DAILY 09/10/16 Folic Acid 1 mg PO DAILY@0800 09/10/16 Budesonide/Formoterol Fumarate 2 puff IH BID 04/25/19 [Symbicort 160-4.5 Mcg Inhaler] Cholecalciferol (VIT D3) [Vitamin 2,000 unit PO DAILY 04/25/19 D3] Metoprolol Tartrate [Lopressor 100 mg PO BID 05/25/19 (beta ran)] Acetaminophen [Tylenol Tablet] 650 mg PO Q6H PRN PRN tab 06/05/19 Amlodipine [Norvasc] 5 mg PO DAILY 06/05/19 Atorvastatin Calcium [Lipitor] 80 mg PO QHS 06/05/19 Albuterol Inhaler [Ventolin Hfa] 2 puff INHALATION Q4H PRN PRN #1 06/16/19 inhaler Ascorbic Acid [Vitamin C] 500 mg PO BIDCM #60 tab 06/16/19 Citalopram [Celexa] 20 mg PO DAILY #30 tab 06/16/19 Magnesium Oxide [Mag-Ox 400] 400 mg PO BIDCM #60 tab 06/16/19 Pantoprazole Sodium [Protonix] 20 mg PO BID tab 06/16/19 Thiamine Hydrochloride [Vitamin B1] 100 mg PO DAILYCM #30 tab 06/16/19 buPROPion XL [Wellbutrin Xl] 150 mg PO DAILY #30 tablet.xl 06/16/19 busPIRone [Buspar] 20 mg PO BID 11/03/19 Gabapentin [Neurontin] 300 mg PO Q8H PRN PRN 7 Days #21 06/13/20 cap Lidocaine [Lidoderm Patch] 1 patch TOPICAL DAILY 10 Days #10 06/13/20 patch Nicotine [Nicoderm Cq] 21 mg TD DAILY 30 Days #30 patch 06/13/20 Tizanidine HCl 4 mg PO QHS PRN 06/18/20 Surgical History: - - surgery on left foot due to accident, carotid endarterectemy on the right side. Psychiatric History: Anxiety, Depression Smoking Status: Current every day smoker Tobacco Use: Cigarettes Alcohol: Heavy Drugs: None - *Family History Maternal History Items: Hypertension, - - Mother had a history of alcoholism but quit drinking at the age of 55 Paternal History Items: - - alcoholism, of suicide Review of Systems Unable to obtain accurate/complete ROS d/t: Due to current intubation and mechanical ventilation status Patient Problems: Active and Suspected Problems Back pain (Acute) Cardiopulmonary arrest with successful resuscitation (Acute) Objective: The patient's most recent lab work, culture data and imaging studies have all been personally reviewed. Surface echocardiogram from October 2019 revealed mild concentric LVH with an ejection fraction of 75% and stage III diastolic dysfunction. RV was noted to be moderately dilated. Moderate to severe mitral valve regurgitation was noted. Right ventricular systolic pressure was estimated to be 80 mmHg. Blood and urine cultures are pending. - Physical Exam Vitals/I&O's: Vital Signs Temp Pulse Resp BP Pulse Ox 98.5 F 83 16 134/63 H 96 06/20/20 04:00 06/20/20 06:00 06/20/20 06:00 06/20/20 06:00 06/20/20 06:00 Oxygen Flow Rate (L/min) 2 Oxygen Delivery Method Mechanical Ventilator Weight: 179 lb 14.355 oz Body Mass Index (BMI) 29.2 Finger Stick Blood Glucose 120 Intake and Output for Last 24 Hours 06/18/20 06/19/20 06/20/20 23:59 23:59 23:59 Intake Total 840 / 840 1570 / 1570 50.03 / 50.03 Output Total 1800 / 1800 400 / 400 Balance -960 / -960 1570 / 1570 -349.97 / -349.97 General: - - Intubated, sedated and mechanically ventilated. HEENT: Atraumatic, Normocephalic Oral: No Gingival or Mucosal Lesions/ Ulcerations, - - Endotracheal and OG tubes in place Neck: Supple, No Nodes, Trachea Midline Lungs: - - Clear across anterior lung cuellar Cardiovascular: Regular rate, Regular Rhythm Abdomen: Bowel Sounds Present, Soft, Non Tender Extremities: No clubbing, No cyanosis, No edema Skin: No breakdown Musculoskeletal: No Tenderness to Palpation of Joints or Extremities Lymphatic: No Cervical, Supraclavicular, or Inguinal Adenopathy Neurological: - - No focal neurological deficits. Currently sedated on the ventilator. Labs (Last 48 Hours) 06/17/20 06/19/20 06/19/20 14:50 05:36 05:36 WBC 4.4 RBC 2.85 L Hgb 7.4 L Hct 25.6 L MCV 89.8 MCH 26.0 L MCHC 28.9 L D RDW Std Deviation 54.2 H RDW Coeff of Donnie 16.6 H Plt Count 96 L MPV 10.0 Immature Gran % (Auto) 0.500 Neut % (Auto) 65.7 Lymph % (Auto) 20.6 [place] % (Auto) 10.7 H Eos % (Auto) 2.0 Baso % (Auto) 0.5 Absolute Neuts (auto) 2.9 Absolute Lymphs (auto) 0.91 Nucleated RBC % 0 Specimen Type Sample Site pH Bicarbonate Actual Total CO2 Base Excess O2 Saturation O2 % ABG pCO2 ABG pO2 Brian Test Respiration Rate O2 Delivery Device Vent Mode Tidal Volume POC PEEP Crit Call To/Read Back Sodium 138 Potassium 3.9 Chloride 104 Carbon Dioxide 27.0 Anion Gap 7 BUN 12 Creatinine 1.13 Estim Creat Clear Calc 65.81 Est GFR (MDRD) Af Amer 85 Est GFR (MDRD) Non-Af 70 BUN/Creatinine Ratio 10.6 Glucose 107 H Calcium 9.1 Phosphorus Magnesium Iron 15 L TIBC 487 H Iron Saturation 3.1 L Ferritin 33 Total Bilirubin 0.50 AST 25 ALT 20 Alkaline Phosphatase 163 H Total Creatine Kinase Troponin I Total Protein 6.7 Albumin 3.0 L Globulin 3.7 Albumin/Globulin Ratio 0.8 L Triglycerides Vitamin B12 361 Urine Color Urine Clarity Urine pH Ur Specific [place] Urine Protein Urine Glucose (UA) Urine Ketones Urine Occult Blood Urine Nitrite Urine Bilirubin Urine Urobilinogen Ur Leukocyte Esterase Urine RBC Urine WBC Ur Squamous Epith Cells Ur Transition Epith Cell Urine Bacteria Urine Mucus Blood Type Antibody Screen 03/09/21 03/09/21 03/09/21 00:30 01:30 01:30 WBC 12.3 H RBC 2.86 L Hgb 7.4 L Hct 27.0 L MCV 94.4 H D MCH 25.9 L MCHC 27.4 L D RDW Std Deviation 59.2 H RDW Coeff of Donnie 17.0 H Plt Count 117 L MPV 10.9 Immature Gran % (Auto) 0.600 Neut % (Auto) 90.7 H Lymph % (Auto) 1.7 L [place] % (Auto) 6.8 Eos % (Auto) 0.0 Baso % (Auto) 0.2 Absolute Neuts (auto) 11.2 H Absolute Lymphs (auto) 0.21 L Nucleated RBC % 0 Specimen Type ART Sample Site R Radial pH 7.19 L* Bicarbonate Actual 19.6 L Total CO2 21 Base Excess -9 L O2 Saturation 97 O2 % 60 ABG pCO2 51.8 H ABG pO2 114 H Brian Test Positive Respiration Rate 14 O2 Delivery Device Adult Vent Vent Mode AC Tidal Volume 450 POC PEEP 5 Crit Call To/Read Back Yes Sodium 140 Potassium 5.1 Chloride 108 H Carbon Dioxide 25.0 Anion Gap 7 BUN 14 Creatinine 1.34 H Estim Creat Clear Calc 55.49 Est GFR (MDRD) Af Amer 70 Est GFR (MDRD) Non-Af 58 L BUN/Creatinine Ratio 10.4 Glucose 149 H Calcium 8.9 Phosphorus 6.8 H Magnesium 1.6 Iron TIBC Iron Saturation Ferritin Total Bilirubin 0.70 AST 43 H ALT 21 Alkaline Phosphatase 141 H Total Creatine Kinase Troponin I 0.024 Total Protein 6.6 Albumin 2.9 L Globulin 3.7 Albumin/Globulin Ratio 0.8 L Triglycerides 66 Vitamin B12 Urine Color Urine Clarity Urine pH Ur Specific [place] Urine Protein Urine Glucose (UA) Urine Ketones Urine Occult Blood Urine Nitrite Urine Bilirubin Urine Urobilinogen Ur Leukocyte Esterase Urine RBC Urine WBC Ur Squamous Epith Cells Ur Transition Epith Cell Urine Bacteria Urine Mucus Blood Type Antibody Screen 06/20/20 06/20/20 06/20/20 01:30 02:28 02:55 WBC RBC Hgb Hct MCV MCH MCHC RDW Std Deviation RDW Coeff of Donnie Plt Count MPV Immature Gran % (Auto) Neut % (Auto) Lymph % (Auto) [place] % (Auto) Eos % (Auto) Baso % (Auto) Absolute Neuts (auto) Absolute Lymphs (auto) Nucleated RBC % Specimen Type ART Sample Site R Radial pH 7.38 Bicarbonate Actual 26.5 H Total CO2 28 Base Excess 1 O2 Saturation 97 O2 % 60 ABG pCO2 44.6 ABG pO2 95 Brian Test Positive Respiration Rate 14 O2 Delivery Device Adult Vent Vent Mode AC Tidal Volume 450 POC PEEP 5 Crit Call To/Read Back Sodium Potassium Chloride Carbon Dioxide Anion Gap BUN Creatinine Estim Creat Clear Calc Est GFR (MDRD) Af Amer Est GFR (MDRD) Non-Af BUN/Creatinine Ratio Glucose Calcium Phosphorus Magnesium Iron TIBC Iron Saturation Ferritin Total Bilirubin AST ALT Alkaline Phosphatase Total Creatine Kinase 119 Troponin I Total Protein Albumin Globulin Albumin/Globulin Ratio Triglycerides Vitamin B12 Urine Color Yellow Urine Clarity Clear Urine pH 6.0 Ur Specific [place] 1.020 Urine Protein 500 H Urine Glucose (UA) Normal Urine Ketones 5 H Urine Occult Blood 150 H Urine Nitrite Negative Urine Bilirubin Negative Urine Urobilinogen Normal Ur Leukocyte Esterase 25 H Urine RBC 5-10 SEEN Urine WBC 10-25 SEEN Ur Squamous Epith Cells 0-5 SEEN Ur Transition Epith Cell 0-5 SEEN Urine Bacteria 0 SEEN Urine Mucus 0 SEEN Blood Type Antibody Screen 06/20/20 06/20/20 06/20/20 05:30 05:30 06:30 WBC 9.8 RBC 2.88 L Hgb 7.5 L Hct 25.6 L MCV 88.9 D MCH 26.0 L MCHC 29.3 L D RDW Std Deviation 55.0 H RDW Coeff of Donnie 16.9 H Plt Count 101 L MPV 9.8 Immature Gran % (Auto) 0.700 Neut % (Auto) 91.7 H Lymph % (Auto) 2.1 L [place] % (Auto) 5.4 Eos % (Auto) 0.0 Baso % (Auto) 0.1 Absolute Neuts (auto) 9.0 H Absolute Lymphs (auto) 0.21 L Nucleated RBC % 0 Specimen Type Sample Site pH Bicarbonate Actual Total CO2 Base Excess O2 Saturation O2 % ABG pCO2 ABG pO2 Brian Test Respiration Rate O2 Delivery Device Vent Mode Tidal Volume POC PEEP Crit Call To/Read Back Sodium 142 Potassium 4.0 Chloride 107 Carbon Dioxide 28.0 Anion Gap 7 BUN 15 Creatinine 1.35 H Estim Creat Clear Calc 55.08 Est GFR (MDRD) Af Amer 69 Est GFR (MDRD) Non-Af 57 L BUN/Creatinine Ratio 11.1 Glucose 134 H Calcium 9.0 Phosphorus Magnesium Iron TIBC Iron Saturation Ferritin Total Bilirubin 0.60 AST 30 ALT 20 Alkaline Phosphatase 147 H Total Creatine Kinase Troponin I Total Protein 6.6 Albumin 3.0 L Globulin 3.6 Albumin/Globulin Ratio 0.8 L Triglycerides Vitamin B12 Urine Color Urine Clarity Urine pH Ur Specific [place] Urine Protein Urine Glucose (UA) Urine Ketones Urine Occult Blood Urine Nitrite Urine Bilirubin Urine Urobilinogen Ur Leukocyte Esterase Urine RBC Urine WBC Ur Squamous Epith Cells Ur Transition Epith Cell Urine Bacteria Urine Mucus Blood Type Pending Antibody Screen Pending Clinical Impression(s) from Imaging Studies Lumbar Spine MRI 06/19/20 09:00 IMPRESSION: Multilevel degenerative changes, as described above. Severe narrowing of left neural foramen at L4-5 due to left foraminal disc herniation impinging on the left L4 nerve root. Electronically Signed: Yary Kamara MD at 11:52 EST Tel , Service support , Chest X-Ray 06/20/20 00:21 IMPRESSION: Placement of endotracheal tube and nasogastric tube. Cardiomegaly. Mild pulmonary vascular congestion. No focal consolidation identified. Otherwise no significant interval change in appearance of the chest. Electronically Signed: Andrey Roa MD at 1:46 EST Tel , Service support , Current Medications Acetaminophen (Acetaminophen 650 Mg/20 Ml Udc) 650 mg GT Q6H PRN PRN PRN Reason: Pain Score 1-10 Al Hydroxide/Mg Hydroxide (Mag Hydrox/Al Hydrox/Simeth 30 Ml Udc) 30 ml GT Q6H PRN PRN PRN Reason: dyspesia Albuterol Sulfate (Albuterol 2.5 Mg/3 Ml Vial.Neb.) 2.5 mg INHALATION Q4H PRN PRN PRN Reason: SOB &/OR WHEEZING Last Admin: 06/17/20 19:39 Dose: 2.5 mg Documented by: Albuterol Sulfate (Albuterol 2.5 Mg/3 Ml Vial.Neb.) 2.5 mg INHALATION Q6HWA.RT [place] Last Admin: 06/19/20 19:40 Dose: 2.5 mg Documented by: Amlodipine Besylate (Amlodipine 5 Mg Tablet) 5 mg GT DAILY [facility] Ascorbic Acid (Ascorbic Acid 500 Mg Tablet) 500 mg GT BIDCM [facility] Atorvastatin Calcium (Atorvastatin Calcium 80 Mg Tablet) 80 mg GT QHS [facility] Bisacodyl (Bisacodyl 10 Mg Suppository) 10 mg RC DAILY PRN PRN Reason: Constipation Budesonide (Budesonide Respules 0.5 Mg/2 Ml Ampul.Neb.) 0.5 mg INHALATION Q12H.RT [facility] Last Admin: 06/19/20 19:40 Dose: 0.5 mg Documented by: Chlorhexidine Gluconate (Chlorhexidine 15 Ml) 15 ml PO BID [facility] Cholecalciferol (Cholecalciferol (Vit D3) 1,000 Unit (25mcg)) 2,000 unit GT DAILY [facility] Clopidogrel Bisulfate (Clopidogrel Bisulfate 75 Mg Tablet) 75 mg GT DAILY [facility] Folic Acid (Folic Acid 1 Mg Tablet) 1 mg GT DAILY@0800 [facility] Gabapentin (Gabapentin 300 Mg Capsule) 300 mg GT Q8H PRN PRN PRN Reason: moderate to severe anxiety Hydroxyzine Pamoate (Hydroxyzine Jacinta 25 Mg Capsule) 50 mg GT Q4H PRN PRN PRN Reason: mild anxiety Sodium Chloride () 250 mls @ 15 mls/hr IV .[id number] PRN PRN Reason: Saline Flush Sodium Chloride () 250 mls @ 15 mls/hr IV .[id number] PRN PRN Reason: Additional IVPB Infusion Fentanyl Citrate 1,000 mcg/ (Sodium Chloride) 100 mls @ 2.5 mls/hr CONT INF .Q40H [facility]; Protocol Last Titration: 06/20/20 06:00 Dose: 50 mcg/hr, 5 mls/hr Documented by: Propofol (Diprivan) 1,000 mg in 100 mls @ 4.896 mls/hr CONT INF .Q12H [facility]; Protocol Last Titration: 06/20/20 06:00 Dose: 5 mcg/kg/min, 2.4 mls/hr Documented by: Pantoprazole Sodium 40 mg/ (Sodium Chloride) 110 mls @ 330 mls/hr IV Q24 [facility] Loperamide HCl (Loperamide 2 Mg Capsule) 2 mg GT Q4H PRN PRN PRN Reason: LOOSE STOOLS Lorazepam (Lorazepam 2 Mg/Ml Syringe) 2 mg IV UD PRN; Protocol PRN Reason: CIWA score >/=15. Nicotine (Nicotine 21 Mg Patch) 21 mg TD DAILY [facility] Last Admin: 06/19/20 09:38 Dose: 21 mg Documented by: Nicotine Polacrilex (Nicotine Polacrilex 2 Mg Gum) 2 mg PO Q2H PRN PRN PRN Reason: Nicotine Craving Ondansetron HCl (Ondansetron 4 Mg/2 Ml Vial) 4 mg IV Q8H PRN PRN PRN Reason: NAUSEA/VOMITING Ondansetron HCl (Ondansetron 8 Mg Tablet) 8 mg GT Q8H PRN PRN PRN Reason: NAUSEA Senna (Senna Tablet) 2 tablet GT QHS PRN PRN Reason: Constipation Sodium Chloride (0.9% Saline Lock 10 Ml Syringe) 10 - 40 ml IV UD PRN PRN Reason: SALINE FLUSH Last Admin: 06/20/20 01:07 Dose: 30 ml Documented by: Thiamine HCl (Thiamine Hydrochloride 100 Mg Tablet) [facility] Assessment/Plan Active and Suspected Problems Back pain (Acute) Cardiopulmonary arrest with successful resuscitation (Acute) RECOMMENDATIONS: 1. Continue patient on assist control mode of mechanical ventilation and wean FiO2 to maintain saturations at or above 90%. 2. Continue bronchodilator therapy. 3. Continue propofol and fentanyl for sedation. 4. Send type and screen. Continue to monitor H&H daily. Transfuse if hemoglobin drops below 7 g/dL. 5. Start IV PPI therapy. 6. Okay from my perspective to start tube feeds. IMPRESSIONS: 1. Acute hypoxemic respiratory failure The patient was initially intubated as a consequence of a CODE BLUE and subsequent ACLS. I do suspect that his respiratory failure may have been related to polypharmacy. Chest x-ray did not demonstrate evidence of a focal consolidation to suggest pneumonia. Therefore, the patient will be continued on assist control mode of mechanical ventilation with plans to wean FiO2 to maintain oxygen saturations at or above 90%. Once the patient is outside of his window for alcohol withdrawal, will attempt extubation. In the interim, tube feeds can be initiated today. 2. Acute alcohol withdrawal Continue propofol and fentanyl for sedation. Plan for daily paired spontaneous awakening and breathing trials. Continue thiamine and folate. 3. Acute on chronic low back pain Continue current pain control regimen and follow-up on outpatient basis. 4. Chronic tobacco dependency/anemia/hypertension/anxiety/depression Complicates care, management, recovery and prognosis. Continue to monitor H&H and transfuse if hemoglobin drops below 7 g/dL. TIME: 42 minutes of critical care time, independent of procedures, was spent addressing the patient's acute hypoxemic respiratory failure, acute alcohol withdrawal, acute on chronic low back pain, anemia, review of all data and collaboration with the care team. ([id number]) [phone] [id number] Critical care first hour
[2020-06-20] MEDS: TITRATION PARAMETER CHANGE 1 EACH IV ×2 (06:33→23:29)
[2020-06-20] MEDS: Albuterol 2.5 MG/3 ML VIAL.NEB. INHALATION ×3 (07:03→19:09)
[2020-06-20] MEDS: Budesonide Respules 0.5 MG/2 ML AMPUL.NEB. INHALATION ×2 (07:03→19:09)
[2020-06-20] MEDS: Thiamine Hydrochloride 100 MG Tablet GT (07:41)
[2020-06-20] MEDS: Ascorbic Acid 500 MG Tablet GT ×2 (07:41→16:51)
[2020-06-20] MEDS: Folic Acid 1 MG Tablet GT (07:41)
[2020-06-20] MEDS: Chlorhexidine 15 ML PO ×2 (09:27→20:15)
[2020-06-20] MEDS: amLODIPine 5 MG Tablet GT (09:28)
[2020-06-20] MEDS: Clopidogrel Bisulfate 75 MG Tablet GT (09:28)
--- NOTE | 2020-06-20 09:42 | NT.THERAPY_ITS ---
Nutrition Therapy Report - History Nutrition Services has been consulted to:: Manage nutrient details of diet order, Manage enteral nutrition Current diet / nutrition support order:: NPO - Anthropometric Measurements Height:: 5 ft 7 in Weight:: 81.6 kg Body Mass Index (BMI):: 28.1 - Relevant Labs Relevant Labs:: WBC 12.3 K/mm3 (4.4-11.0) H 06/20/20 01:30 RBC 2.88 M/mm3 (4.6-6.2) L 06/20/20 05:30 Hgb 7.5 g/dL (13.0-16.5) L 06/20/20 05:30 Hct 25.6 % (40-54) L 06/20/20 05:30 MCV 94.4 fL (80-94) H D 06/20/20 01:30 MCH 26.0 pg (27.0-32.0) L 06/20/20 05:30 MCHC 29.3 g/dL (32-36) L D 06/20/20 05:30 RDW Std Deviation 55.0 fl (35.1-43.9) H 06/20/20 05:30 RDW Coeff of Donnie 16.9 % (11.6-14.6) H 06/20/20 05:30 Plt Count 101 K/mm3 (150-450) L 06/20/20 05:30 Neut % (Auto) 91.7 % (47-70) H 06/20/20 05:30 Lymph % (Auto) 2.1 % (19-41) L 06/20/20 05:30 [place] % (Auto) 10.7 % (0-10) H 06/19/20 05:36 Absolute Neuts (auto) 9.0 X10^3/uL (2.0-7.7) H 06/20/20 05:30 Absolute Lymphs (auto) 0.21 X10^3/uL (0.83-4.51) L 06/20/20 05:30 Sodium 127 mmol/L (136-145) L 06/17/20 07:04 Chloride 108 mmol/L (98-107) H 06/20/20 01:30 Carbon Dioxide 18.0 mmol/L (21.0-32.0) L 06/17/20 07:04 Creatinine 1.35 mg/dL (0.70-1.30) H 06/20/20 05:30 Est GFR (MDRD) Non-Af 57 mL/min (>60) L 06/20/20 05:30 Glucose 134 mg/dL (74-106) H 06/20/20 05:30 Phosphorus 6.8 mg/dL (2.5-4.9) H 06/20/20 01:30 Iron 15 ug/dL (65-175) L 06/19/20 05:36 TIBC 487 ug/dL (250-450) H 06/19/20 05:36 Iron Saturation 3.1 % (15.0-55.0) L 06/19/20 05:36 AST 43 U/L (15-37) H 06/20/20 01:30 Alkaline Phosphatase 147 U/L (45-117) H 06/20/20 05:30 Total Protein 6.1 g/dL (6.4-8.2) L 06/17/20 07:04 Albumin 3.0 g/dL (3.2-5.0) L 06/20/20 05:30 Albumin/Globulin Ratio 0.8 RATIO (0.9-2.4) L 06/20/20 05:30 - Assessment Food / Nutrition-Related History:: Pt intubated s/p code blue. Discussed in ICU rounds. OGT in place. Per rounds, okay to start enteral nutrition support. Wt loss of ~3 kg since admission- may be r/t different bedscales. Will monitor. - Nutrition Diagnosis Problem / Etiology / Signs & Symptoms (PES):: inadequate oral intake r/t inadequate energy intake d/t mechanical intubation as evidenced by NPO status Evidence of Malnutrition Exists:: No - Nutrition Intervention Nutrition Prescription:: [id number] calories/day (RMR x 1.3). 120-130 g protein/day (1.5g/kg). 2000 mL/day (1 mL/calorie) - Food / Nutrient Delivery Interventions Summary of nutrition intervention:: Will order enteral nutrition support. Nutrition support ordered as / adjusted to:: Vital AF 1.2 via OGT at goal rate of 70mL/hour w/ 125mL H2O flush every 4 hours to provide 2016 calories, 126 g protein, and 2112mL total fluid/day. Would start at 20mL/hour and increase by 15mL every 10-12 hours as pt tolerates until goal rate achieved. - MNT Monitoring Further MNT monitoring and evaluation required?: Yes MNT Follow-up in:: 1-2 days
[2020-06-20] MEDS: Vital AF 1.2 Cal Liquid 1,000 ML 70 ML GT (10:51)
--- NOTE | 2020-06-20 11:44 | CASEMGMT ---
Pt admitted on 06/17/20 for acute on chronic back pain and ETOH w/d. Participated in multidisciplinary rounds, pt is vented. Code blue called lastnight. Pt lives alone and has HPOA. Pt with known alcohol abuse. CM to follow.
[2020-06-20] MEDS: Propofol 10MG/Ml 1,000 MG/100 ML Bottle 4.9 MG CONT INF (12:12)
--- NOTE | 2020-06-20 14:17 | PN_ITS ---
Patient Problems: Active and Suspected Problems Back pain (Acute) Cardiopulmonary arrest with successful resuscitation (Acute) Subjective: Patient seen and examined. AMARI FENTON was called overnight after he was found to be unresponsive. It appears patient received BuSpar, hydroxyzine, Ativan and oxycodone as well as trazodone all within about an hour, between 8 PM and 9 PM. ACLS was initiated and patient had return of spontaneous circulation after he received 2 rounds of epinephrine. He was emergently intubated and transferred to the ICU. Patient remains intubated and sedated. He is on propofol and fentanyl. RASS score is -4. Vitals/I&O's: Vital Signs Temp Pulse Resp BP Pulse Ox 97.8 F 76 14 88/41 L 98 06/20/20 12:00 06/20/20 14:00 06/20/20 14:00 06/20/20 14:00 06/20/20 14:00 Oxygen Flow Rate (L/min) 2 Oxygen Delivery Method Mechanical Ventilator Weight: 179 lb 14.355 oz Body Mass Index (BMI) 28.1 Finger Stick Blood Glucose 120 Intake and Output for Last 24 Hours 06/18/20 06/19/20 06/20/20 23:59 23:59 23:59 Intake Total 840 / 840 1570 / 1570 591.63 / 591.63 Output Total 1800 / 1800 1370 / 1370 Balance -960 / -960 1570 / 1570 -778.37 / -778.37 General: - - intubated, sedated, not responsive. HEENT: Atraumatic, PERRLA, EOMI, Normocephalic Oral: Dry Mucosa Neck: Supple, No JVD, Negative Carotid Bruits Lungs: Clear to auscultation, Normal air movement Cardiovascular: Regular rate, Regular Rhythm, Normal S1, Normal S2, No murmurs Abdomen: Bowel Sounds Present, Soft, Non Tender, Non-Distended, No Hepato- splenomegaly Extremities: No clubbing, No cyanosis, No edema, Capillary Refill Less than 3 Seconds Skin: No rashes, No breakdown Musculoskeletal: No Tenderness to Palpation of Joints or Extremities Lymphatic: No Cervical, Supraclavicular, or Inguinal Adenopathy Neurological: Cranial nerves II-XII grossly intact, Neuro grossly intact, Motor Exam 5/5 strength throughout Psych/Mental Status: - - intubated, sedated, RASS score is -4 Laboratory Results 06/20/20 00:30: Specimen Type ART, Sample Site R Radial, pH 7.19 L*, Bicarbonate Actual 19.6 L, Total CO2 21, Base Excess -9 L, O2 Saturation 97, O2 % 60, ABG pCO2 51.8 H, ABG pO2 114 H, Brian Test Positive, Respiration Rate 14, O2 Delivery Device Adult Vent, Vent Mode AC, Tidal Volume 450, POC PEEP 5, Crit Call To/Read Back Yes 06/20/20 01:30: WBC 12.3 H, RBC 2.86 L, Hgb 7.4 L, Hct 27.0 L, MCV 94.4 H D, MCH 25.9 L, MCHC 27.4 L D, RDW Std Deviation 59.2 H, RDW Coeff of Donnie 17.0 H, Plt Count 117 L, MPV 10.9, Immature Gran % (Auto) 0.600, Neut % (Auto) 90.7 H, Lymph % (Auto) 1.7 L, Band[place] % (Auto) 6.8, Eos % (Auto) 0.0, Baso % (Auto) 0.2, Absolute Neuts (auto) 11.2 H, Absolute Lymphs (auto) 0.21 L, Nucleated RBC % 0 06/20/20 01:30: Sodium 140, Potassium 5.1, Chloride 108 H, Carbon Dioxide 25.0, Anion Gap 7, BUN 14, Creatinine 1.34 H, Estim Creat Clear Calc 55.49, Est GFR (MDRD) Af Amer 70, Est GFR (MDRD) Non-Af 58 L, BUN/Creatinine Ratio 10.4, Glucose 149 H, Calcium 8.9, Phosphorus 6.8 H, Magnesium 1.6, Total Bilirubin 0.70, AST 43 H, ALT 21, Alkaline Phosphatase 141 H, Troponin I 0.024, Total Protein 6.6, Albumin 2.9 L, Globulin 3.7, Albumin/Globulin Ratio 0.8 L, Triglycerides 66 06/20/20 01:30: Total Creatine Kinase 119 06/20/20 02:28: Specimen Type ART, Sample Site R Radial, pH 7.38, Bicarbonate Actual 26.5 H, Total CO2 28, Base Excess 1, O2 Saturation 97, O2 % 60, ABG pCO2 44.6, ABG pO2 95, Brian Test Positive, Respiration Rate 14, O2 Delivery Device A dult Vent, Vent Mode AC, Tidal Volume 450, POC PEEP 5 06/20/20 02:55: Urine Color Yellow, Urine Clarity Clear, Urine pH 6.0, Ur Specific [place] 1.020, Urine Protein 500 H, Urine Glucose (UA) Normal, Urine Ketones 5 H, Urine Occult Blood 150 H, Urine Nitrite Negative, Urine Bilirubin Negative, Urine Urobilinogen Normal, Ur Leukocyte Esterase 25 H, Urine RBC 5-10 SEEN, Urine WBC 10-25 SEEN, Ur Squamous Epith Cells 0-5 SEEN, Ur Transition Epith Cell 0-5 SEEN, Urine Bacteria 0 SEEN, Urine Mucus 0 SEEN 06/20/20 05:30: WBC 9.8, RBC 2.88 L, Hgb 7.5 L, Hct 25.6 L, MCV 88.9 D, MCH 26.0 L, MCHC 29.3 L D, RDW Std Deviation 55.0 H, RDW Coeff of Donnie 16.9 H, Plt Count 101 L, MPV 9.8, Immature Gran % (Auto) 0.700, Neut % (Auto) 91.7 H, Lymph % (Auto) 2.1 L, [place] % (Auto) 5.4, Eos % (Auto) 0.0, Baso % (Auto) 0.1, Absolute Neuts (auto) 9.0 H, Absolute Lymphs (auto) 0.21 L, Nucleated RBC % 0 06/20/20 05:30: Sodium 142, Potassium 4.0, Chloride 107, Carbon Dioxide 28.0, Anion Gap 7, BUN 15, Creatinine 1.35 H, Estim Creat Clear Calc 55.08, Est GFR (MDRD) Af Amer 69, Est GFR (MDRD) Non-Af 57 L, BUN/Creatinine Ratio 11.1, Glucose 134 H, Calcium 9.0, Total Bilirubin 0.60, AST 30, ALT 20, Alkaline Phosphatase 147 H, Total Protein 6.6, Albumin 3.0 L, Globulin 3.6, Albumin/Globulin Ratio 0.8 L 06/20/20 06:30: Blood Type O POSITIVE, Antibody Screen NEGATIVE Current Medications Acetaminophen (Acetaminophen 650 Mg/20 Ml Udc) 650 mg GT Q6H PRN PRN PRN Reason: Pain Score 1-10 Al Hydroxide/Mg Hydroxide (Mag Hydrox/Al Hydrox/Simeth 30 Ml Udc) 30 ml GT Q6H PRN PRN PRN Reason: dyspesia Albuterol Sulfate (Albuterol 2.5 Mg/3 Ml Vial.Neb.) 2.5 mg INHALATION Q4H PRN PRN PRN Reason: SOB &/OR WHEEZING Last Admin: 06/17/20 19:39 Dose: 2.5 mg Documented by: Albuterol Sulfate (Albuterol 2.5 Mg/3 Ml Vial.Neb.) 2.5 mg INHALATION Q6HWA.RT [facility] Last Admin: 06/20/20 13:00 Dose: 2.5 mg Documented by: Amlodipine Besylate (Amlodipine 5 Mg Tablet) 5 mg GT DAILY [facility] Last Admin: 06/20/20 09:28 Dose: 5 mg Documented by: Ascorbic Acid (Ascorbic Acid 500 Mg Tablet) 500 mg GT BIDCM [facility] Last Admin: 06/20/20 07:41 Dose: 500 mg Documented by: Atorvastatin Calcium (Atorvastatin Calcium 80 Mg Tablet) 80 mg GT QHS [facility] Bisacodyl (Bisacodyl 10 Mg Suppository) 10 mg RC DAILY PRN PRN Reason: Constipation Budesonide (Budesonide Respules 0.5 Mg/2 Ml Ampul.Neb.) 0.5 mg INHALATION Q12H.RT [facility] Last Admin: 06/20/20 07:03 Dose: 0.5 mg Documented by: Chlorhexidine Gluconate (Chlorhexidine 15 Ml) 15 ml PO BID [facility] Last Admin: 06/20/20 09:27 Dose: 15 ml Documented by: Cholecalciferol (Cholecalciferol (Vit D3) 1,000 Unit (25mcg)) 2,000 unit GT DAILY [facility] Last Admin: 06/20/20 09:28 Dose: 2,000 unit Documented by: Clopidogrel Bisulfate (Clopidogrel Bisulfate 75 Mg Tablet) 75 mg GT DAILY [facility] Last Admin: 06/20/20 09:28 Dose: 75 mg Documented by: Folic Acid (Folic Acid 1 Mg Tablet) 1 mg GT DAILY@0800 [facility] Last Admin: 06/20/20 07:41 Dose: 1 mg Documented by: Sodium Chloride () 250 mls @ 15 mls/hr IV .[id number] PRN PRN Reason: Saline Flush Sodium Chloride () 250 mls @ 15 mls/hr IV .[id number] PRN PRN Reason: Additional IVPB Infusion Fentanyl Citrate 1,000 mcg/ (Sodium Chloride) 100 mls @ 2.5 mls/hr CONT INF .Q40H [facility]; Protocol Last Admin: 06/20/20 13:11 Dose: 100 mcg/hr, 10 mls/hr Documented by: Propofol (Diprivan) 1,000 mg in 100 mls @ 4.896 mls/hr CONT INF .Q12H [facility]; Protocol Last Titration: 06/20/20 13:00 Dose: 10 mcg/kg/min, 4.9 mls/hr Documented by: Pantoprazole Sodium 40 mg/ (Sodium Chloride) 110 mls @ 330 mls/hr IV Q24 [facility] Last Infusion: 06/20/20 06:56 Dose: Infused Documented by: Enteral Nutritional Formula (Vital Af 1.2 Heladio Liquid) 1,000 mls @ 70 mls/hr GT .[id number] [facility] Last Admin: 06/20/20 10:51 Dose: 70 mls/hr Documented by: Loperamide HCl (Loperamide 2 Mg Capsule) 2 mg GT Q4H PRN PRN PRN Reason: LOOSE STOOLS Nicotine (Nicotine 21 Mg Patch) 21 mg TD DAILY [facility] Last Admin: 06/20/20 09:28 Dose: 21 mg Documented by: Ondansetron HCl (Ondansetron 4 Mg/2 Ml Vial) 4 mg IV Q8H PRN PRN PRN Reason: NAUSEA/VOMITING Ondansetron HCl (Ondansetron 8 Mg Tablet) 8 mg GT Q8H PRN PRN PRN Reason: NAUSEA Senna (Senna Tablet) 2 tablet GT QHS PRN PRN Reason: Constipation Sodium Chloride (0.9% Saline Lock 10 Ml Syringe) 10 - 40 ml IV UD PRN PRN Reason: SALINE FLUSH Last Admin: 06/20/20 01:07 Dose: 30 ml Documented by: Thiamine HCl ([facility]iamine Hydrochloride 100 Mg Tablet) [facility] Last Admin: 06/20/20 07:41 Dose: 100 mg Documented by: STROKE Vital Signs/Narrative: Vital Signs Temp Pulse Resp BP BP Pulse Ox 06/20/20 14:00 76 14 88/41 L 98 06/20/20 13:05 76 14 98 06/20/20 13:04 76 14 06/20/20 13:00 76 10 L 93/43 L 96 06/20/20 12:00 97.8 F 77 12 100/47 L 98 06/20/20 11:58 78 06/20/20 11:00 76 14 91/42 L 98 06/20/20 10:53 80 14 98 Medical Necessity - Tobacco Use Smoking Status: Current every day smoker Tobacco Use: Cigarettes Assessment/Plan All Active Problems Back pain (Acute) Cardiopulmonary arrest with successful resuscitation (Acute) GI bleed (Resolved) Hypomagnesemia (Resolved) Hepatitis C (Ruled-out) #Acute cardiopulmonary arrest * likely due to polypharmacy. Attained ROSC after 2 doses of epinephrine * he remains intubated and sedated * on propofol and fentanyl. * CXR showed no evidence of a focal consolidation. * critical care on board * #Acute respiratory failure * due to cardiac arrest likely from polypharmacy * currently intubated and sedated * vent settings as per critical care * titrate oxygen to maintain sats >90% * #Acute on chronic lower back pain with left lower leg weakness * MRI of the lumbar spine showed multilevel degenerative disc changes with se sal narrowing of the left neural foramen at L4-5 due to left foraminal disc herniation impinging on the left L4 nerve root. * to follow up with spine surgery once he is extubated and clinically stable. * #Acute alcohol withdrawal * on phenobarb withdrawal protocol * now intubated and sedated. * monitor CIWA score * #Iron deficiency anemia * hb is 7.5 today. iron panel showed iron level of 15, with iron saturation of 3.1, and TIBC of 487. * will check stool for occult blood. * had EGD in 2019 which showed erythematous mucosa in the gastric antrum, and nonbleeding grade II varices * no colonoscopy on file * to follow up with general surgery/gastroenterology on outpatient basis * #Hypertension: controlled. On metoprolol and amlodipine #COPD: Not in exacerbation. On Symbicort. Breathing treatments as needed. #Anxiety and depression: On bupropion, Celexa and BuSpar #History of CVA with bilateral carotid stenosis: On Plavix and statin. #Debility due to chronic back pain: PT OT on board. Fall precaution. DVT prophylaxis: SCDs Inpatient E&M: [id number] [facility] L3
[2020-06-20 14:20] LABS: Bedside Glucose 129 mg/dL (70-110)
[2020-06-20 17:36] LABS: Bedside Glucose 114 mg/dL (70-110)
[2020-06-20] MEDS: 0.9% Normal Saline 1,000 ML 125 ML IV (18:41)
[2020-06-20] MEDS: Atorvastatin Calcium 80 MG Tablet GT (20:15)
[2020-06-20] MEDS: Lactated Ringers 1,000 ML 999 ML IV (22:07)
--- NOTE | 2020-06-20 22:12 | PCM.HOSP.N ---
Hospitalist Note Nurse called me for hypotension. Patient blood pressure was low, SBP upper 90s and map 61 to 62 mmHg. Intake and output +590 mL, total fluid intake about 4.5 L. 1 L of Ringer lactate fluid ordered patient blood pressure did not improve, map still less than 65 mmHg. Low-dose norepinephrine drip ordered. Patient had 2D echo in October 2019 which is consistent with stage III diastolic failure/HFpEF, right-sided heart failure with moderately dilated RV, severe pulmonary hypertension, RVSP 80 mmHg, moderate TR, moderate to severe MR and IVC dilated. RA and LA moderately enlarged. History of chronic alcohol disease, use and dependence. BNP and 2D echo ordered for tomorrow a.m. 2D echo October 2019 Interpretation Summary Mild concentric left ventricular hypertrophy. The estimated ejection fraction is 75 %. Stage 3 diastolic dysfunction. Moderately dilated right ventricle. The right atrium is mildly enlarged. The left atrium is moderately enlarged. Possible prolapse of partial prolapse of anterior mitral leaflet with associated moderate to severe posteriorly directed mitral regurgitation. Moderately severe (3+) posteriorly directed mitral valve insufficiency. Mild to moderate (1-2+) tricuspid valve insufficiency. Right ventricular systolic pressure estimated to be 80 mmHg. Severe pulmonary hypertension. The inferior vena cava is dilated No collapse of the inferior vena cava. Compared to echo report dated 05/24/2019, LV function has remained the same, mitral regurgitation appears to be slightly worse, and RVSP is increased from 60 to 80 mmHg. Would consider a transesophageal echocardiogram if clinically indicated.
[2020-06-20] MEDS: 0.9% Normal Saline 1,000 ML 75 ML IV (23:29)
[2020-06-21] VITALS (46 sets, daily range): BP systolic 98–158; BP diastolic 47–81; PULSE 76–104; RESP 9–18; TEMP 36.8–37.4; O2SAT 88–100
[2020-06-21 00:40] LABS: Bedside Glucose 107 mg/dL (70-110)
[2020-06-21 04:32] LABS: Absolute Lymphocyte Count 0.71 X10^3/uL (0.83-4.51); Absolute Neutrophil Count 9.9 X10^3/uL (2.0-7.7); Basophil# 0.03 X10^3/uL; Basophil% 0.3 % (0-1); Eosinophil# 0.03 X10^3/uL; Eosinophils% 0.3 % (0-5); Hematocrit 25.1 % (40-54); Hemoglobin 7.3 g/dL (13.0-16.5); Lymphocyte # 0.71 X10^3/ul (4.0); Mean Corp Hgb Conc 29.1 g/dL (32-36); Mean Corpuscular Hgb 25.9 pg (27.0-32.0); Mean Platelet Vol. 10.6 fl (6.2-12.0); Monocyte# 1.16 X10^3/uL; Monocyte% 9.8 % (0-10); NRBC Flagged by Analyzer 0 % (0-5); Neutrophil % 83.1 % (47-70); Platelet Count 126 K/mm3 (150-450); RBC Distribution Width CV 17.2 % (11.6-14.6); RBC Distribution Width SD 56.1 fl (35.1-43.9); Red Blood Count 2.82 M/mm3 (4.6-6.2); White Blood Count 11.9 K/mm3 (4.4-11.0)
[2020-06-21] MEDS: Propofol 10MG/Ml 1,000 MG/100 ML Bottle 2.4 MG CONT INF (04:35)
[2020-06-21] MEDS: TITRATION PARAMETER CHANGE 1 EACH IV (04:36)
[2020-06-21 04:51] LABS: ALB/GLOB Ratio 0.7 RATIO (0.9-2.4); AST(SGOT) 23 U/L (15-37); Alanine Aminotransfer ALT/SGPT 17 U/L (16-61); Albumin, Serum 2.6 g/dL (3.2-5.0); Alkaline Phosphatase 129 U/L (45-117); BUN 24 mg/dL (7-18); BUN/Creat Ratio 15.2 RATIO (10-20); Calcium,Total 8.3 mg/dL (8.5-10.1); Creatinine, Serum 1.58 mg/dL (0.70-1.30); EST Glomerular Filtration Rate 48 mL/min (>60); Est Glom Filt Rate - Afr Amer 58 mL/min (>60); Estimated Creatinine Clearance 47.06 ml/min; Globulin 3.5 g/dL (2.2-4.2); Glucose 126 mg/dL (74-106); Protein, Total 6.1 g/dL (6.4-8.2)
[2020-06-21 04:52] LABS: Anion Gap 6 (5-15); Chloride 107 mmol/L (98-107); Potassium 3.5 mmol/L (3.5-5.1); Sodium Level 141 mmol/L (136-145)
--- NOTE | 2020-06-21 05:32 | PCM.PN.INT ---
Subjective: The patient was seen and examined at the bedside this morning. Events from the last 24 hours have been reviewed. The patient is currently afebrile, hemodynamically stable and maintaining appropriate oxygen saturations on assist control mode of mechanical ventilation with an FiO2 requirement of 30%. The patient did fairly well this morning on his spontaneous awakening and breathing trial. However, there is still some concern that he is going through active alcohol withdrawal. Therefore, the patient will be placed on Precedex. Hemoglobin is still stable at 7.3 g/dL. Creatinine is up a bit to 1.58. The patient did have some tenuous hemodynamics overnight, for which he received a bolus of fluid and did have to be placed on Levophed for a very short period of time. Objective: The patient's most recent lab work, culture data and imaging studies have all been personally reviewed. Surface echocardiogram from October 2019 revealed mild concentric LVH with an ejection fraction of 75% and stage III diastolic dysfunction. RV was noted to be moderately dilated. Moderate to severe mitral valve regurgitation was noted. Right ventricular systolic pressure was estimated to be 80 mmHg. Blood and urine cultures are pending. General: - - Remains intubated and mechanically ventilated. HEENT: Atraumatic, Normocephalic Oral: No Gingival or Mucosal Lesions/ Ulcerations, - - Endotracheal and OG tubes remain in place Neck: Supple, No Nodes, Trachea Midline Lungs: Diminished, Tachypneic Cardiovascular: Normal S1, Normal S2, No murmurs, Tachycardic Abdomen: Bowel Sounds Present, Soft, Non Tender Extremities: No clubbing, No cyanosis, No edema Skin: No breakdown Musculoskeletal: No Tenderness to Palpation of Joints or Extremities Lymphatic: No Cervical, Supraclavicular, or Inguinal Adenopathy Neurological: - - No focal neurological deficits. Moving all extremities spontaneously. Not currently following commands. Psych/Mental Status: Agitated, Restless Vital Signs Temp Pulse Resp BP Pulse Ox 98.6 F 82 17 106/47 L 95 06/21/20 00:00 06/21/20 04:25 06/21/20 04:25 06/21/20 03:00 06/21/20 04:25 Oxygen Flow Rate (L/min) 2 Oxygen Delivery Method Mechanical Ventilator Weight: 184 lb 15.485 oz Body Mass Index (BMI) 28.1 Finger Stick Blood Glucose 120 Intake and Output for Last 24 Hours 06/19/20 06/20/20 06/21/20 23:59 23:59 23:59 Intake Total 1570 / 1570 2323.27 / 3249.63 1232.38 / 1232.38 Output Total 1565 / 1615 165 / 165 Balance 1570 / 1570 758.27 / 1634.63 1067.38 / 1067.38 Labs (Last 48 Hours) 06/17/20 06/19/20 06/19/20 14:50 05:36 05:36 WBC 4.4 RBC 2.85 L Hgb 7.4 L Hct 25.6 L MCV 89.8 MCH 26.0 L MCHC 28.9 L D RDW Std Deviation 54.2 H RDW Coeff of Donnie 16.6 H Plt Count 96 L MPV 10.0 Immature Gran % (Auto) 0.500 Neut % (Auto) 65.7 Lymph % (Auto) 20.6 [place] % (Auto) 10.7 H Eos % (Auto) 2.0 Baso % (Auto) 0.5 Absolute Neuts (auto) 2.9 Absolute Lymphs (auto) 0.91 Nucleated RBC % 0 Specimen Type Sample Site pH Bicarbonate Actual Total CO2 Base Excess O2 Saturation O2 % ABG pCO2 ABG pO2 Brian Test Respiration Rate O2 Delivery Device Vent Mode Tidal Volume POC PEEP Crit Call To/Read Back Sodium 138 Potassium 3.9 Chloride 104 Carbon Dioxide 27.0 Anion Gap 7 BUN 12 Creatinine 1.13 Estim Creat Clear Calc 65.81 Est GFR (MDRD) Af Amer 85 Est GFR (MDRD) Non-Af 70 BUN/Creatinine Ratio 10.6 Glucose 107 H Calcium 9.1 Phosphorus Magnesium Iron 15 L TIBC 487 H Iron Saturation 3.1 L Ferritin 33 Total Bilirubin 0.50 AST 25 ALT 20 Alkaline Phosphatase 163 H Total Creatine Kinase Troponin I B-Natriuretic Peptide Total Protein 6.7 Albumin 3.0 L Globulin 3.7 Albumin/Globulin Ratio 0.8 L Triglycerides Vitamin B12 361 Urine Color Urine Clarity Urine pH Ur Specific [place] Urine Protein Urine Glucose (UA) Urine Ketones Urine Occult Blood Urine Nitrite Urine Bilirubin Urine Urobilinogen Ur Leukocyte Esterase Urine RBC Urine WBC Ur Squamous Epith Cells Ur Transition Epith Cell Urine Bacteria Urine Mucus POC Glucose Blood Type Antibody Screen 06/20/20 06/20/20 06/20/20 00:30 01:30 01:30 WBC 12.3 H RBC 2.86 L Hgb 7.4 L Hct 27.0 L MCV 94.4 H D MCH 25.9 L MCHC 27.4 L D RDW Std Deviation 59.2 H RDW Coeff of Donnie 17.0 H Plt Count 117 L MPV 10.9 Immature Gran % (Auto) 0.600 Neut % (Auto) 90.7 H Lymph % (Auto) 1.7 L [place] % (Auto) 6.8 Eos % (Auto) 0.0 Baso % (Auto) 0.2 Absolute Neuts (auto) 11.2 H Absolute Lymphs (auto) 0.21 L Nucleated RBC % 0 Specimen Type ART Sample Site R Radial pH 7.19 L* Bicarbonate Actual 19.6 L Total CO2 21 Base Excess -9 L O2 Saturation 97 O2 % 60 ABG pCO2 51.8 H ABG pO2 114 H Brian Test Positive Respiration Rate 14 O2 Delivery Device Adult Vent Vent Mode AC Tidal Volume 450 POC PEEP 5 Crit Call To/Read Back Yes Sodium 140 Potassium 5.1 Chloride 108 H Carbon Dioxide 25.0 Anion Gap 7 BUN 14 Creatinine 1.34 H Estim Creat Clear Calc 55.49 Est GFR (MDRD) Af Amer 70 Est GFR (MDRD) Non-Af 58 L BUN/Creatinine Ratio 10.4 Glucose 149 H Calcium 8.9 Phosphorus 6.8 H Magnesium 1.6 Iron TIBC Iron Saturation Ferritin Total Bilirubin 0.70 AST 43 H ALT 21 Alkaline Phosphatase 141 H Total Creatine Kinase Troponin I 0.024 B-Natriuretic Peptide Total Protein 6.6 Albumin 2.9 L Globulin 3.7 Albumin/Globulin Ratio 0.8 L Triglycerides 66 Vitamin B12 Urine Color Urine Clarity Urine pH Ur Specific [place] Urine Protein Urine Glucose (UA) Urine Ketones Urine Occult Blood Urine Nitrite Urine Bilirubin Urine Urobilinogen Ur Leukocyte Esterase Urine RBC Urine WBC Ur Squamous Epith Cells Ur Transition Epith Cell Urine Bacteria Urine Mucus POC Glucose Blood Type Antibody Screen 06/20/20 06/20/20 06/20/20 01:30 02:28 02:55 WBC RBC Hgb Hct MCV MCH MCHC RDW Std Deviation RDW Coeff of Donnie Plt Count MPV Immature Gran % (Auto) Neut % (Auto) Lymph % (Auto) [place] % (Auto) Eos % (Auto) Baso % (Auto) Absolute Neuts (auto) Absolute Lymphs (auto) Nucleated RBC % Specimen Type ART Sample Site R Radial pH 7.38 Bicarbonate Actual 26.5 H Total CO2 28 Base Excess 1 O2 Saturation 97 O2 % 60 ABG pCO2 44.6 ABG pO2 95 Brian Test Positive Respiration Rate 14 O2 Delivery Device Adult Vent Vent Mode AC Tidal Volume 450 POC PEEP 5 Crit Call To/Read Back Sodium Potassium Chloride Carbon Dioxide Anion Gap BUN Creatinine Estim Creat Clear Calc Est GFR (MDRD) Af Amer Est GFR (MDRD) Non-Af BUN/Creatinine Ratio Glucose Calcium Phosphorus Magnesium Iron TIBC Iron Saturation Ferritin Total Bilirubin AST ALT Alkaline Phosphatase Total Creatine Kinase 119 Troponin I B-Natriuretic Peptide Total Protein Albumin Globulin Albumin/Globulin Ratio Triglycerides Vitamin B12 Urine Color Yellow Urine Clarity Clear Urine pH 6.0 Ur Specific [place] 1.020 Urine Protein 500 H Urine Glucose (UA) Normal Urine Ketones 5 H Urine Occult Blood 150 H Urine Nitrite Negative Urine Bilirubin Negative Urine Urobilinogen Normal Ur Leukocyte Esterase 25 H Urine RBC 5-10 SEEN Urine WBC 10-25 SEEN Ur Squamous Epith Cells 0-5 SEEN Ur Transition Epith Cell 0-5 SEEN Urine Bacteria 0 SEEN Urine Mucus 0 SEEN POC Glucose Blood Type Antibody Screen 06/20/20 06/20/20 06/20/20 05:30 05:30 06:30 WBC 9.8 RBC 2.88 L Hgb 7.5 L Hct 25.6 L MCV 88.9 D MCH 26.0 L MCHC 29.3 L D RDW Std Deviation 55.0 H RDW Coeff of Donnie 16.9 H Plt Count 101 L MPV 9.8 Immature Gran % (Auto) 0.700 Neut % (Auto) 91.7 H Lymph % (Auto) 2.1 L [place] % (Auto) 5.4 Eos % (Auto) 0.0 Baso % (Auto) 0.1 Absolute Neuts (auto) 9.0 H Absolute Lymphs (auto) 0.21 L Nucleated RBC % 0 Specimen Type Sample Site pH Bicarbonate Actual Total CO2 Base Excess O2 Saturation O2 % ABG pCO2 ABG pO2 Brian Test Respiration Rate O2 Delivery Device Vent Mode Tidal Volume POC PEEP Crit Call To/Read Back Sodium 142 Potassium 4.0 Chloride 107 Carbon Dioxide 28.0 Anion Gap 7 BUN 15 Creatinine 1.35 H Estim Creat Clear Calc 55.08 Est GFR (MDRD) Af Amer 69 Est GFR (MDRD) Non-Af 57 L BUN/Creatinine Ratio 11.1 Glucose 134 H Calcium 9.0 Phosphorus Magnesium Iron TIBC Iron Saturation Ferritin Total Bilirubin 0.60 AST 30 ALT 20 Alkaline Phosphatase 147 H Total Creatine Kinase Troponin I B-Natriuretic Peptide Total Protein 6.6 Albumin 3.0 L Globulin 3.6 Albumin/Globulin Ratio 0.8 L Triglycerides Vitamin B12 Urine Color Urine Clarity Urine pH Ur Specific [place] Urine Protein Urine Glucose (UA) Urine Ketones Urine Occult Blood Urine Nitrite Urine Bilirubin Urine Urobilinogen Ur Leukocyte Esterase Urine RBC Urine WBC Ur Squamous Epith Cells Ur Transition Epith Cell Urine Bacteria Urine Mucus POC Glucose Blood Type O POSITIVE Antibody Screen NEGATIVE 06/20/20 06/20/20 06/21/20 13:12 17:31 00:30 WBC RBC Hgb Hct MCV MCH MCHC RDW Std Deviation RDW Coeff of Donnie Plt Count MPV Immature Gran % (Auto) Neut % (Auto) Lymph % (Auto) [place] % (Auto) Eos % (Auto) Baso % (Auto) Absolute Neuts (auto) Absolute Lymphs (auto) Nucleated RBC % Specimen Type Sample Site pH Bicarbonate Actual Total CO2 Base Excess O2 Saturation O2 % ABG pCO2 ABG pO2 Brian Test Respiration Rate O2 Delivery Device Vent Mode Tidal Volume POC PEEP Crit Call To/Read Back Sodium Potassium Chloride Carbon Dioxide Anion Gap BUN Creatinine Estim Creat Clear Calc Est GFR (MDRD) Af Amer Est GFR (MDRD) Non-Af BUN/Creatinine Ratio Glucose Calcium Phosphorus Magnesium Iron TIBC Iron Saturation Ferritin Total Bilirubin AST ALT Alkaline Phosphatase Total Creatine Kinase Troponin I B-Natriuretic Peptide Total Protein Albumin Globulin Albumin/Globulin Ratio Triglycerides Vitamin B12 Urine Color Urine Clarity Urine pH Ur Specific [place] Urine Protein Urine Glucose (UA) Urine Ketones Urine Occult Blood Urine Nitrite Urine Bilirubin Urine Urobilinogen Ur Leukocyte Esterase Urine RBC Urine WBC Ur Squamous Epith Cells Ur Transition Epith Cell Urine Bacteria Urine Mucus POC Glucose 129 H 114 H 107 Blood Type Antibody Screen 06/21/20 06/21/20 06/21/20 04:20 04:20 04:20 WBC 11.9 H RBC 2.82 L Hgb 7.3 L Hct 25.1 L MCV 89.0 MCH 25.9 L MCHC 29.1 L RDW Std Deviation 56.1 H RDW Coeff of Donnie 17.2 H Plt Count 126 L MPV 10.6 Immature Gran % (Auto) 0.500 Neut % (Auto) 83.1 H Lymph % (Auto) 6.0 L [place] % (Auto) 9.8 Eos % (Auto) 0.3 Baso % (Auto) 0.3 Absolute Neuts (auto) 9.9 H Absolute Lymphs (auto) 0.71 L Nucleated RBC % 0 Specimen Type Sample Site pH Bicarbonate Actual Total CO2 Base Excess O2 Saturation O2 % ABG pCO2 ABG pO2 Brian Test Respiration Rate O2 Delivery Device Vent Mode Tidal Volume POC PEEP Crit Call To/Read Back Sodium 141 Potassium 3.5 Chloride 107 Carbon Dioxide 28.0 Anion Gap 6 BUN 24 H Creatinine 1.58 H Estim Creat Clear Calc 47.06 Est GFR (MDRD) Af Amer 58 L Est GFR (MDRD) Non-Af 48 L BUN/Creatinine Ratio 15.2 Glucose 126 H Calcium 8.3 L Phosphorus Magnesium Iron TIBC Iron Saturation Ferritin Total Bilirubin 0.60 AST 23 ALT 17 Alkaline Phosphatase 129 H Total Creatine Kinase Troponin I B-Natriuretic Peptide 1338.0 H Total Protein 6.1 L Albumin 2.6 L Globulin 3.5 Albumin/Globulin Ratio 0.7 L Triglycerides Vitamin B12 Urine Color Urine Clarity Urine pH Ur Specific [place] Urine Protein Urine Glucose (UA) Urine Ketones Urine Occult Blood Urine Nitrite Urine Bilirubin Urine Urobilinogen Ur Leukocyte Esterase Urine RBC Urine WBC Ur Squamous Epith Cells Ur Transition Epith Cell Urine Bacteria Urine Mucus POC Glucose Blood Type Antibody Screen Clinical Impression(s) from Imaging Studies Lumbar Spine MRI 06/19/20 09:00 IMPRESSION: Multilevel degenerative changes, as described above. Severe narrowing of left neural foramen at L4-5 due to left foraminal disc herniation impinging on the left L4 nerve root. Electronically Signed: Yary Kamara MD at 11:52 EST Tel , Service support , Chest X-Ray 06/20/20 00:21 IMPRESSION: Placement of endotracheal tube and nasogastric tube. Cardiomegaly. Mild pulmonary vascular congestion. No focal consolidation identified. Otherwise no significant interval change in appearance of the chest. Electronically Signed: Andrey Roa MD at 1:46 EST Tel , Service support , Medical Necessity - Tobacco Use Smoking Status: Current every day smoker Tobacco Use: Cigarettes Assessment/Plan All Active Problems Back pain (Acute) Cardiopulmonary arrest with successful resuscitation (Acute) GI bleed (Resolved) Hypomagnesemia (Resolved) Hepatitis C (Ruled-out) RECOMMENDATIONS: 1. Continue patient on spontaneous mode of mechanical ventilation as tolerated. Transition back to assist control for overnight support. 2. Discontinue propofol and start Precedex today. 3. Continue tube feeds as tolerated. 4. Continue scheduled bronchodilator therapy. 5. Give 1 unit of packed red blood cells today. 6. Continue PPI therapy. IMPRESSIONS: 1. Acute hypoxemic respiratory failure The patient was initially intubated as a consequence of a CODE BLUE and subsequent ACLS. I do suspect that his respiratory failure may have been related to polypharmacy. Chest x-ray did not demonstrate evidence of a focal consolidation to suggest pneumonia. Therefore, the patient will be continued on assist control mode of mechanical ventilation with plans to wean FiO2 to maintain oxygen saturations at or above 90%. Once the patient is outside of his window for alcohol withdrawal, will attempt extubation. In the interim, tube feeds will be continued. 2. Acute alcohol withdrawal Continue Precedex for sedation. Plan for daily paired spontaneous awakening and breathing trials. Continue thiamine and folate. 3. Acute on chronic low back pain Continue current pain control regimen and follow-up on outpatient basis. 4. Chronic tobacco dependency/anemia/hypertension/anxiety/depression Complicates care, management, recovery and prognosis. Continue to monitor H&H and transfuse if hemoglobin drops below 7 g/dL. TIME: 34 minutes of critical care time, independent of procedures, was spent addressing the patient's acute hypoxemic respiratory failure, acute alcohol withdrawal, acute on chronic low back pain, anemia, review of all data and collaboration with the care team. ([id number]) [id number] Critical care first hour
[2020-06-21] MEDS: Budesonide Respules 0.5 MG/2 ML AMPUL.NEB. INHALATION ×2 (06:47→18:46)
[2020-06-21] MEDS: Albuterol 2.5 MG/3 ML VIAL.NEB. INHALATION ×3 (06:47→18:46)
[2020-06-21] MEDS: Folic Acid 1 MG Tablet GT (08:09)
[2020-06-21] MEDS: Thiamine Hydrochloride 100 MG Tablet GT (08:09)
[2020-06-21] MEDS: Ascorbic Acid 500 MG Tablet GT ×2 (08:09→16:24)
--- NOTE | 2020-06-21 08:15 | NURSING ---
respiratory aware of desats, FiO2 increased to 35%
[2020-06-21] MEDS: Clopidogrel Bisulfate 75 MG Tablet GT (09:09)
[2020-06-21] MEDS: Chlorhexidine 15 ML PO ×2 (09:10→19:58)
--- NOTE | 2020-06-21 10:20 | NURSING ---
phone call made to mick Patel, no answer. Spoke with ginger Mukherjee, and received consent to give blood products, witness with BIANCA Win
[2020-06-21] MEDS: 0.9% Saline Lock 10 ML Syringe IV (10:25)
--- NOTE | 2020-06-21 10:26 | NURSING ---
tolerating tube feed, rate increased too 50 ml/hr per order
[2020-06-21 11:51] LABS: Bedside Glucose 132 mg/dL (70-110)
--- NOTE | 2020-06-21 11:52 | PCM.PN.HOSP ---
Patient Problems: Active and Suspected Problems Back pain (Acute) Cardiopulmonary arrest with successful resuscitation (Acute) Subjective: Patient seen and examined. He remains intubated and sedated. He was started on Precedex drip during the night on account of agitation. He is now on pressure support ventilation. Has remained hemodynamically stable otherwise. Creatinine has trended up slightly to 1.58. Vitals/I&O's: Vital Signs Temp Pulse Resp BP Pulse Ox 98.2 F 78 14 103/54 L 95 06/21/20 10:48 06/21/20 11:00 06/21/20 11:00 06/21/20 11:00 06/21/20 11:00 Oxygen Flow Rate (L/min) 2 Oxygen Delivery Method Mechanical Ventilator Weight: 184 lb 15.485 oz Body Mass Index (BMI) 28.1 Finger Stick Blood Glucose 120 Intake and Output for Last 24 Hours 06/19/20 06/20/20 06/21/20 23:59 23:59 23:59 Intake Total 1570 / 1570 2323.27 / 3249.63 2866.51 / 2866.51 Output Total 1565 / 1615 465 / 465 Balance 1570 / 1570 758.27 / 1634.63 2401.51 / 2401.51 General: - - intubated, sedated, restless, moving all limbs spontaneously HEENT: Atraumatic, PERRLA, EOMI, Normocephalic Oral: Dry Mucosa Neck: Supple, No JVD, Negative Carotid Bruits Lungs: Clear to auscultation, Normal air movement Cardiovascular: Regular rate, Regular Rhythm, Normal S1, Normal S2, No murmurs Abdomen: Bowel Sounds Present, Soft, Non Tender, Non-Distended, No Hepato-splenomegaly Extremities: No clubbing, No cyanosis, No edema, Capillary Refill Less than 3 Seconds Skin: No rashes, No breakdown Musculoskeletal: No Tenderness to Palpation of Joints or Extremities Lymphatic: No Cervical, Supraclavicular, or Inguinal Adenopathy Neurological: intubated, sedated, moving all limgs spontaneously, restless Psych/Mental Status: - - intubated, sedated, RASS score is +2 Microbiology Past 72 Hours 06/20/20 02:55 Urine Catheter - Catheter Urine Culture - Preliminary GPC Poss Enterococcus sp Laboratory Results 06/20/20 06:30: Blood Type O POSITIVE, Antibody Screen NEGATIVE 06/20/20 13:12: POC Glucose 129 H 06/20/20 17:31: POC Glucose 114 H 06/21/20 00:30: POC Glucose 107 06/21/20 04:20: WBC 11.9 H, RBC 2.82 L, Hgb 7.3 L, Hct 25.1 L, MCV 89.0, MCH 25.9 L, MCHC 29.1 L, RDW Std Deviation 56.1 H, RDW Coeff of Donnie 17.2 H, Plt Count 126 L, MPV 10.6, Immature Gran % (Auto) 0.500, Neut % (Auto) 83.1 H, Lymph % (Auto) 6.0 L, [place] % (Auto) 9.8, Eos % (Auto) 0.3, Baso % (Auto) 0.3, Absolute Neuts (auto) 9.9 H, Absolute Lymphs (auto) 0.71 L, Nucleated RBC % 0 06/21/20 04:20: B-Natriuretic Peptide 1338.0 H 06/21/20 04:20: Sodium 141, Potassium 3.5, Chloride 107, Carbon Dioxide 28.0, Anion Gap 6, BUN 24 H, Creatinine 1.58 H, Estim Creat Clear Calc 47.06, Est GFR (MDRD) Af Amer 58 L, Est GFR (MDRD) Non-Af 48 L, BUN/Creatinine Ratio 15.2, Glucose 126 H, Calcium 8.3 L, Total Bilirubin 0.60, AST 23, ALT 17, Alkaline Phosphatase 129 H, Total Protein 6.1 L, Albumin 2.6 L, Globulin 3.5, Albumin/Globulin Ratio 0.7 L 06/21/20 06:30: Crossmatch See Detail 06/21/20 11:47: POC Glucose 132 H Current Medications Acetaminophen (Acetaminophen 650 Mg/20 Ml Udc) 650 mg GT Q6H PRN PRN PRN Reason: Pain Score 1-10 Al Hydroxide/Mg Hydroxide (Mag Hydrox/Al Hydrox/Simeth 30 Ml Udc) 30 ml GT Q6H PRN PRN PRN Reason: dyspesia Albuterol Sulfate (Albuterol 2.5 Mg/3 Ml Vial.Neb.) 2.5 mg INHALATION Q4H PRN PRN PRN Reason: SOB &/OR WHEEZING Last Admin: 06/17/20 19:39 Dose: 2.5 mg Documented by: Albuterol Sulfate (Albuterol 2.5 Mg/3 Ml Vial.Neb.) 2.5 mg INHALATION Q6HWA.RT [facility] Last Admin: 06/21/20 06:47 Dose: 2.5 mg Documented by: Ascorbic Acid (Ascorbic Acid 500 Mg Tablet) 500 mg GT BIDCM [facility] Last Admin: 06/21/20 08:09 Dose: 500 mg Documented by: Atorvastatin Calcium (Atorvastatin Calcium 80 Mg Tablet) 80 mg GT QHS [facility] Last Admin: 06/20/20 20:15 Dose: 80 mg Documented by: Bisacodyl (Bisacodyl 10 Mg Suppository) 10 mg RC DAILY PRN PRN Reason: Constipation Budesonide (Budesonide Respules 0.5 Mg/2 Ml Ampul.Neb.) 0.5 mg INHALATION Q12H.RT [facility] Last Admin: 06/21/20 06:47 Dose: 0.5 mg Documented by: Chlorhexidine Gluconate (Chlorhexidine 15 Ml) 15 ml PO BID [facility] Last Admin: 06/21/20 09:10 Dose: 15 ml Documented by: Cholecalciferol (Cholecalciferol (Vit D3) 1,000 Unit (25mcg)) 2,000 unit GT DAILY [facility] Last Admin: 06/21/20 09:09 Dose: 2,000 unit Documented by: Clopidogrel Bisulfate (Clopidogrel Bisulfate 75 Mg Tablet) 75 mg GT DAILY [facility] Last Admin: 06/21/20 09:09 Dose: 75 mg Documented by: Folic Acid (Folic Acid 1 Mg Tablet) 1 mg GT DAILY@0800 [facility] Last Admin: 06/21/20 08:09 Dose: 1 mg Documented by: Sodium Chloride () 250 mls @ 15 mls/hr IV .[id number] PRN PRN Reason: Saline Flush Sodium Chloride () 250 mls @ 15 mls/hr IV .[id number] PRN PRN Reason: Additional IVPB Infusion Fentanyl Citrate 1,000 mcg/ (Sodium Chloride) 100 mls @ 2.5 mls/hr CONT INF .Q40H [facility]; Protocol Last Titration: 06/21/20 11:00 Dose: 125 mcg/hr, 12.5 mls/hr Documented by: Pantoprazole Sodium 40 mg/ (Sodium Chloride) 110 mls @ 330 mls/hr IV Q24 [facility] Last Infusion: 06/21/20 10:42 Dose: Infused Documented by: Enteral Nutritional Formula (Vital Af 1.2 Heladio Liquid) 1,000 mls @ 70 mls/hr GT .[id number] [facility] Last Admin: 06/21/20 00:32 Dose: Not Given Documented by: Norepinephrine Bitartrate 8 mg (/ Sodium Chloride) 250 mls @ 9.375 mls/hr CONT INF .[id number] [facility]; Protocol Last Titration: 06/21/20 11:00 Dose: 0 mcg/min, 0 mls/hr Documented by: Sodium Chloride () 1,000 mls @ 75 mls/hr IV .[id number] [facility] Last Infusion: 06/21/20 06:00 Dose: 75 mls/hr Documented by: Dexmedetomidine HCl 400 mcg/ (Sodium Chloride) 100 mls @ 10.488 mls/hr CONT INF .[id number] [facility]; Protocol Last Titration: 06/21/20 11:00 Dose: 0.9 mcg/kg/hr, 18.9 mls/hr Documented by: Loperamide HCl (Loperamide 2 Mg Capsule) 2 mg GT Q4H PRN PRN PRN Reason: LOOSE STOOLS Nicotine (Nicotine 21 Mg Patch) 21 mg TD DAILY [facility] Last Admin: 06/21/20 09:09 Dose: 21 mg Documented by: Ondansetron HCl (Ondansetron 4 Mg/2 Ml Vial) 4 mg IV Q8H PRN PRN PRN Reason: NAUSEA/VOMITING Ondansetron HCl (Ondansetron 8 Mg Tablet) 8 mg GT Q8H PRN PRN PRN Reason: NAUSEA Senna (Senna Tablet) 2 tablet GT QHS PRN PRN Reason: Constipation Sodium Chloride (0.9% Saline Lock 10 Ml Syringe) 10 - 40 ml IV UD PRN PRN Reason: SALINE FLUSH Last Admin: 06/21/20 10:25 Dose: 40 ml Documented by: Thiamine HCl ([facility] Hydrochloride 100 Mg [facility]t) [facility] Last Admin: 06/21/20 08:09 Dose: 100 mg Documented by: STROKE Vital Signs/Narrative: Vital Signs Temp Pulse Resp BP Pulse Ox 06/21/20 11:00 78 14 103/54 L 95 06/21/20 10:55 78 14 96 06/21/20 10:48 98.2 F 78 14 101/57 L 96 06/21/20 10:33 98.5 F 79 15 98/53 L 96 06/21/20 10:00 79 14 100/51 L 96 06/21/20 09:30 82 14 97 06/21/20 09:00 86 15 104/58 L 95 06/21/20 08:30 106/59 L 93 06/21/20 08:15 131/63 H 92 06/21/20 08:00 98.7 F 104 H 18 121/64 H 88 Medical Necessity - Tobacco Use Smoking Status: Current every day smoker Tobacco Use: Cigarettes Assessment/Plan All Active Problems Back pain (Acute) Cardiopulmonary arrest with successful resuscitation (Acute) GI bleed (Resolved) Hypomagnesemia (Resolved) Hepatitis C (Ruled-out) #Acute cardiopulmonary arrest likely due to polypharmacy. Attained ROSC after 2 doses of epinephrine he remains intubated and sedated now on precedex drip as it was started due to agitation now on pressure support ventilation CXR showed no evidence of a focal consolidation. critical care on board #Acute respiratory failure due to cardiac arrest likely from polypharmacy became hypotensive overnight, requiring initiation of levophed. has been weaned off levophed this morning 2D echo from October 2019 showed concentric left ventricular hypertrophy with EF of 75% and stage III diastolic dysfunction as well as moderately dilated right ventricle and moderate to severe mitral regurgitation with moderately severe mitral valve insufficiency. RVSP was 80 mmHg with severe pulmonary hypertension and dilated inferior vena cava. TTE ordered for today. BNP markedly elevated at 1228 currently intubated and sedated vent settings as per critical care titrate oxygen to maintain sats >90% #Acute on chronic lower back pain with left lower leg weakness MRI of the lumbar spine showed multilevel degenerative disc changes with severe narrowing of the left neural foramen at L4-5 due to left foraminal disc herniation impinging on the left L4 nerve root. to follow up with spine surgery once he is extubated and clinically stable. #Acute alcohol withdrawal now on precedex drip now intubated and sedated. RASS score is +2 monitor CIWA score #Iron deficiency anemia hb is 7.3 today. iron panel showed iron level of 15, with iron saturation of 3.1, and TIBC of 487. will check stool for occult blood. had EGD in 2019 which showed erythematous mucosa in the gastric antrum, and nonbleeding grade II varices no colonoscopy on file to follow up with general surgery/gastroenterology on outpatient basis transfuse one unit of PRBCS today on IV pantoprazole #Hypertension: hold amlodipine and metoprolol due to hypotension #COPD: Not in exacerbation. On Symbicort. Breathing treatments as needed. #Anxiety and depression: On bupropion, Celexa and BuSpar #History of CVA with bilateral carotid stenosis: On Plavix and statin. #Debility due to chronic back pain: PT OT on board. Fall precaution. DVT prophylaxis: SCDs Inpatient E&M: [id number] L[facility]
--- NOTE | 2020-06-21 13:16 | CASEMGMT ---
Pt triggered [facility] Palliative Care Screening Tool. ordered consult. Face sheet and screening tool faxed to Palliative Care and left vm regarding referral.
[2020-06-21] MEDS: 0.9% Normal Saline 1,000 ML 75 ML IV (14:31)
[2020-06-21 17:55] LABS: Bedside Glucose 125 mg/dL (70-110)
[2020-06-21] MEDS: Vital AF 1.2 Cal Liquid 1,000 ML 70 ML GT (21:33)
[2020-06-21] MEDS: Atorvastatin Calcium 80 MG Tablet GT (22:38)
[2020-06-22] VITALS (36 sets, daily range): BP systolic 99–205; BP diastolic 50–99; PULSE 74–112; RESP 12–28; TEMP 36.9–37.4; O2SAT 89–100
[2020-06-22] MEDS: Albuterol 2.5 MG/3 ML VIAL.NEB. INHALATION ×3 (00:12→19:10)
[2020-06-22 00:20] LABS: Bedside Glucose 132 mg/dL (70-110)
[2020-06-22] MEDS: 0.9% Normal Saline 1,000 ML 75 ML IV ×2 (03:01→17:41)
[2020-06-22] MEDS: 0.9% Saline Lock 10 ML Syringe IV (06:33)
--- NOTE | 2020-06-22 06:50 | NURSING ---
Precedex turned off at 0645 06/22/[address] Thomas after pt. was extubated.
[2020-06-22 06:56] LABS: Bedside Glucose 123 mg/dL (70-110)
--- NOTE | 2020-06-22 07:18 | PCM.PN.INT ---
Subjective: The patient was seen and examined at the bedside this morning. Events from the last 24 hours have been reviewed. The patient is currently afebrile, hemodynamically stable and maintaining appropriate oxygen saturations on spontaneous mode of mechanical ventilation with an FiO2 requirement of 35%. The patient has been tolerant of a spontaneous awakening trial this morning and is currently doing well on his spontaneous breathing trial. The patient was transfused 1 unit of packed red blood cells yesterday. The patient is currently alert and able to follow simple commands. The patient is currently documented to be overall net +7.3 L for the hospital admission. Objective: The patient's most recent lab work, culture data and imaging studies have all been personally reviewed. Surface echocardiogram from October 2019 revealed mild concentric LVH with an ejection fraction of 75% and stage III diastolic dysfunction. RV was noted to be moderately dilated. Moderate to severe mitral valve regurgitation was noted. Right ventricular systolic pressure was estimated to be 80 mmHg. General: Alert, No apparent distress HEENT: Atraumatic, Normocephalic Oral: No Gingival or Mucosal Lesions/ Ulcerations, - - Endotracheal and OG tubes remain in place Neck: Supple, No Nodes, Trachea Midline Lungs: Diminished, - - Scant rhonchi Cardiovascular: Regular rate, Regular Rhythm Abdomen: Bowel Sounds Present, Soft, Non Tender Extremities: No clubbing, No cyanosis, No edema Skin: No breakdown Musculoskeletal: No Tenderness to Palpation of Joints or Extremities Lymphatic: No Cervical, Supraclavicular, or Inguinal Adenopathy Neurological: - - No focal neurological deficits. Moving all extremities spontaneously. Alert and able to follow simple commands. Vital Signs Temp Pulse Resp BP Pulse Ox 98.8 F 88 14 130/73 H 92 06/22/20 04:00 06/22/20 06:00 06/22/20 06:00 06/22/20 06:00 06/22/20 06:00 Oxygen Flow Rate (L/min) 2 Oxygen Delivery Method Mechanical Ventilator Weight: 191 lb 2.252 oz Body Mass Index (BMI) 28.1 Finger Stick Blood Glucose 120 Intake and Output for Last 24 Hours 06/20/20 06/21/20 06/22/20 23:59 23:59 23:59 Intake Total 2323.27 / 3249.63 4553.12 / 4693.62 2177.59 / 2177.59 Output Total 1565 / 1615 840 / 885 220 / 220 Balance 758.27 / 1634.63 3713.12 / 3808.62 1957.59 / 1957.59 Labs (Last 48 Hours) 06/20/20 06/20/20 06/20/20 06:30 13:12 17:31 WBC RBC Hgb Hct MCV MCH MCHC RDW Std Deviation RDW Coeff of Donnie Plt Count MPV Immature Gran % (Auto) Neut % (Auto) Lymph % (Auto) [place] % (Auto) Eos % (Auto) Baso % (Auto) Absolute Neuts (auto) Absolute Lymphs (auto) Nucleated RBC % Sodium Potassium Chloride Carbon Dioxide Anion Gap BUN Creatinine Estim Creat Clear Calc Est GFR (MDRD) Af Amer Est GFR (MDRD) Non-Af BUN/Creatinine Ratio Glucose Calcium Total Bilirubin AST ALT Alkaline Phosphatase B-Natriuretic Peptide Total Protein Albumin Globulin Albumin/Globulin Ratio POC Glucose 129 H 114 H Blood Type O POSITIVE Antibody Screen NEGATIVE Crossmatch 06/21/20 06/21/20 06/21/20 00:30 04:20 04:20 WBC 11.9 H RBC 2.82 L Hgb 7.3 L Hct 25.1 L MCV 89.0 MCH 25.9 L MCHC 29.1 L RDW Std Deviation 56.1 H RDW Coeff of Donnie 17.2 H Plt Count 126 L MPV 10.6 Immature Gran % (Auto) 0.500 Neut % (Auto) 83.1 H Lymph % (Auto) 6.0 L [place] % (Auto) 9.8 Eos % (Auto) 0.3 Baso % (Auto) 0.3 Absolute Neuts (auto) 9.9 H Absolute Lymphs (auto) 0.71 L Nucleated RBC % 0 Sodium Potassium Chloride Carbon Dioxide Anion Gap BUN Creatinine Estim Creat Clear Calc Est GFR (MDRD) Af Amer Est GFR (MDRD) Non-Af BUN/Creatinine Ratio Glucose Calcium Total Bilirubin AST ALT Alkaline Phosphatase B-Natriuretic Peptide 1338.0 H Total Protein Albumin Globulin Albumin/Globulin Ratio POC Glucose 107 Blood Type Antibody Screen Crossmatch 06/21/20 06/21/20 06/21/20 04:20 06:30 11:47 WBC RBC Hgb Hct MCV MCH MCHC RDW Std Deviation RDW Coeff of Donnie Plt Count MPV Immature Gran % (Auto) Neut % (Auto) Lymph % (Auto) [place] % (Auto) Eos % (Auto) Baso % (Auto) Absolute Neuts (auto) Absolute Lymphs (auto) Nucleated RBC % Sodium 141 Potassium 3.5 Chloride 107 Carbon Dioxide 28.0 Anion Gap 6 BUN 24 H Creatinine 1.58 H Estim Creat Clear Calc 47.06 Est GFR (MDRD) Af Amer 58 L Est GFR (MDRD) Non-Af 48 L BUN/Creatinine Ratio 15.2 Glucose 126 H Calcium 8.3 L Total Bilirubin 0.60 AST 23 ALT 17 Alkaline Phosphatase 129 H B-Natriuretic Peptide Total Protein 6.1 L Albumin 2.6 L Globulin 3.5 Albumin/Globulin Ratio 0.7 L POC Glucose 132 H Blood Type Antibody Screen Crossmatch See Detail 06/21/20 06/22/20 06/22/20 17:51 00:10 06:28 WBC RBC Hgb Hct MCV MCH MCHC RDW Std Deviation RDW Coeff of Donnie Plt Count MPV Immature Gran % (Auto) Neut % (Auto) Lymph % (Auto) [place] % (Auto) Eos % (Auto) Baso % (Auto) Absolute Neuts (auto) Absolute Lymphs (auto) Nucleated RBC % Sodium Potassium Chloride Carbon Dioxide Anion Gap BUN Creatinine Estim Creat Clear Calc Est GFR (MDRD) Af Amer Est GFR (MDRD) Non-Af BUN/Creatinine Ratio Glucose Calcium Total Bilirubin AST ALT Alkaline Phosphatase B-Natriuretic Peptide Total Protein Albumin Globulin Albumin/Globulin Ratio POC Glucose 125 H 132 H 123 H Blood Type Antibody Screen Crossmatch Microbiology 06/20/20 02:55 Urine Catheter - Catheter Urine Culture - Preliminary GPC Poss Enterococcus sp Clinical Impression(s) from Imaging Studies Lumbar Spine MRI 06/19/20 09:00 IMPRESSION: Multilevel degenerative changes, as described above. Severe narrowing of left neural foramen at L4-5 due to left foraminal disc herniation impinging on the left L4 nerve root. Electronically Signed: Yary Kamara MD at 11:52 EST Tel , Service support , Chest X-Ray 06/20/20 00:21 IMPRESSION: Placement of endotracheal tube and nasogastric tube. Cardiomegaly. Mild pulmonary vascular congestion. No focal consolidation identified. Otherwise no significant interval change in appearance of the chest. Electronically Signed: Andrey Roa MD at 1:46 EST Tel , Service support , Medical Necessity - Tobacco Use Smoking Status: Current every day smoker Tobacco Use: Cigarettes Assessment/Plan All Active Problems Back pain (Acute) Cardiopulmonary arrest with successful resuscitation (Acute) GI bleed (Resolved) Hypomagnesemia (Resolved) Hepatitis C (Ruled-out) RECOMMENDATIONS: 1. Proceed with a trial of extubation this morning. 2. Once extubated, wean supplemental oxygen to maintain saturations at or above 90%. 3. Continue bronchodilator therapy. 4. Patient to remain n.p.o. pending evaluation by speech therapy. 5. Encourage incentive spirometer use and mobilize patient as tolerated. 6. Give IV Lasix x1 today. IMPRESSIONS: 1. Acute hypoxemic respiratory failure The patient was initially intubated as a consequence of a CODE BLUE and subsequent ACLS. I do suspect that his respiratory failure may have been related to polypharmacy. Chest x-ray did not demonstrate evidence of a focal consolidation to suggest pneumonia. The patient has improved from a respiratory perspective and was able to be extubated on the morning of June 22. Plan to continue supplemental oxygen to maintain saturations at or above 90%. I would recommend that the patient be evaluated by speech therapy prior to advancing diet. Encourage incentive spirometer use and mobilize patient as tolerated. 2. Acute alcohol withdrawal If the patient demonstrates any residual signs of withdrawal upon extubation, CIWA protocol can be reinitiated. 3. Acute on chronic low back pain Continue current pain control regimen and follow-up on outpatient basis. 4. Chronic tobacco dependency/anemia/hypertension/anxiety/depression Complicates care, management, recovery and prognosis. Continue to monitor H&H and transfuse if hemoglobin drops below 7 g/dL. TIME: 34 minutes of critical care time, independent of procedures, was spent addressing the patient's acute hypoxemic respiratory failure, acute alcohol withdrawal, acute on chronic low back pain, anemia, review of all data and collaboration with the care team. [id number]) [id number] Critical care first hour
[2020-06-22 08:21] LABS: Anion Gap 5 (5-15); BUN 26 mg/dL (7-18); BUN/Creat Ratio 18.4 RATIO (10-20); Calcium,Total 8.3 mg/dL (8.5-10.1); Chloride 110 mmol/L (98-107); Creatinine, Serum 1.41 mg/dL (0.70-1.30); EST Glomerular Filtration Rate 55 mL/min (>60); Est Glom Filt Rate - Afr Amer 66 mL/min (>60); Estimated Creatinine Clearance 52.74 ml/min; Glucose 133 mg/dL (74-106); Potassium 3.8 mmol/L (3.5-5.1); Sodium Level 141 mmol/L (136-145)
[2020-06-22 08:29] LABS: Absolute Lymphocyte Count 0.82 X10^3/uL (0.83-4.51); Absolute Neutrophil Count 6.1 X10^3/uL (2.0-7.7); Basophil# 0.01 X10^3/uL; Basophil% 0.1 % (0-1); Eosinophil# 0.04 X10^3/uL; Eosinophils% 0.5 % (0-5); Hematocrit 27.1 % (40-54); Hemoglobin 8.2 g/dL (13.0-16.5); Lymphocyte # 0.82 X10^3/ul (4.0); Lymphocyte % 10.6 % (19-41); Mean Corp Hgb Conc 30.3 g/dL (32-36); Mean Corpuscular Hgb 26.8 pg (27.0-32.0); Mean Corpuscular Volume 88.6 fL (80-94); Mean Platelet Vol. 11.7 fl (6.2-12.0); Monocyte# 0.76 X10^3/uL; Monocyte% 9.8 % (0-10); NRBC Flagged by Analyzer 0 % (0-5); Neutrophil # 6.09 X10^3/uL (2.7-7.7); Neutrophil % 78.6 % (47-70); POSITIVE COUNT YES; Platelet Count 87 K/mm3 (150-450); RBC Distribution Width CV 17.2 % (11.6-14.6); RBC Distribution Width SD 55.2 fl (35.1-43.9); Red Blood Count 3.06 M/mm3 (4.6-6.2); White Blood Count 7.8 K/mm3 (4.4-11.0)
[2020-06-22] MEDS: Furosemide 40 MG/4 ML Vial IV (10:13)
--- NOTE | 2020-06-22 16:11 | PN_ITS ---
Patient Problems: Active and Suspected Problems Back pain (Acute) Cardiopulmonary arrest with successful resuscitation (Acute) Subjective: Patient seen and examined. He was successfully extubated this morning. He had no complaints this morning, and review of systems was otherwise negative. He was mildly agitated and thrashing around in bed. Review of systems otherwise negative. He has remained hemodynamically stable. Hemoglobin today is 8.2. Vitals/I&O's: Vital Signs Temp Pulse Resp BP Pulse Ox 98.8 F 110 H 18 190/81 H 96 06/22/20 15:53 06/22/20 15:53 06/22/20 15:53 06/22/20 15:53 06/22/20 15:53 Oxygen Flow Rate (L/min) 2 Oxygen Delivery Method Nasal Cannula Weight: 191 lb 2.252 oz Body Mass Index (BMI) 28.1 Finger Stick Blood Glucose 120 Intake and Output for Last 24 Hours 06/20/20 06/21/20 06/22/20 23:59 23:59 23:59 Intake Total 2323.27 / 3249.63 4553.12 / 4693.62 3186.34 / 3186.34 Output Total 1565 / 1615 840 / 885 1170 / 1170 Balance 758.27 / 1634.63 3713.12 / 3808.62 / General: - -alert, restless, extubated HEENT: Atraumatic, PERRLA, EOMI, Normocephalic Oral: Dry Mucosa Neck: Supple, No JVD, Negative Carotid Bruits Lungs: Clear to auscultation, Normal air movement Cardiovascular: Regular rate, Regular Rhythm, Normal S1, Normal S2, No murmurs Abdomen: Bowel Sounds Present, Soft, Non Tender, Non-Distended, No Hepato- splenomegaly Extremities: No clubbing, No cyanosis, No edema, Capillary Refill Less than 3 Seconds Skin: No rashes, No breakdown Musculoskeletal: No Tenderness to Palpation of Joints or Extremities Lymphatic: No Cervical, Supraclavicular, or Inguinal Adenopathy Neurological: moving all limbs spontaneously, restless, extubated Psych/Mental Status: - -anxious Microbiology Past 72 Hours 06/20/20 02:55 Blood Culture (Wb) - Left Hand Blood Culture - Preliminary No growth in 48 hours. 06/20/20 02:55 Blood Culture (Wb) - Right Hand Blood Culture - Preliminary No growth in 48 hours. 06/20/20 02:55 Urine Catheter - Catheter Urine Culture - Preliminary Enterococcus faecalis Laboratory Results 06/21/20 17:51: POC Glucose 125 H 06/22/20 00:10: POC Glucose 132 H 06/22/20 04:15: WBC 7.8, RBC 3.06 L, Hgb 8.2 L, Hct 27.1 L, MCV 88.6, MCH 26.8 L , MCHC 30.3 L, RDW Std Deviation 55.2 H, RDW Coeff of Donnie 17.2 H, Plt Count 87 L , MPV 11.7, Immature Gran % (Auto) 0.400, Neut % (Auto) 78.6 H, Lymph % (Auto) 10.6 L, [place] % (Auto) 9.8, Eos % (Auto) 0.5, Baso % (Auto) 0.1, Absolute Neuts (auto) 6.1, Absolute Lymphs (auto) 0.82 L, Nucleated RBC % 0 06/22/20 04:15: Sodium 141, Potassium 3.8, Chloride 110 H, Carbon Dioxide 26.0, Anion Gap 5, BUN 26 H, Creatinine 1.41 H, Estim Creat Clear Calc 52.74, Est GFR (MDRD) Af Amer 66, Est GFR (MDRD) Non-Af 55 L, BUN/Creatinine Ratio 18.4, Glucose 133 H, Calcium 8.3 L 06/22/20 06:28: POC Glucose 123 H Current Medications Acetaminophen (Acetaminophen 650 Mg/20 Ml Udc) 650 mg PO Q6H PRN PRN PRN Reason: Pain Score 1-10 Al Hydroxide/Mg Hydroxide (Mag Hydrox/Al Hydrox/Simeth 30 Ml Udc) 30 ml PO Q6H PRN PRN PRN Reason: dyspesia Albuterol Sulfate (Albuterol 2.5 Mg/3 Ml Vial.Neb.) 2.5 mg INHALATION Q4H PRN PRN PRN Reason: SOB &/OR WHEEZING Last Admin: 06/17/20 19:39 Dose: 2.5 mg Documented by: Albuterol Sulfate (Albuterol 2.5 Mg/3 Ml Vial.Neb.) 2.5 mg INHALATION Q6HWA.RT [place] Last Admin: 06/22/20 13:11 Dose: 2.5 mg Documented by: Ascorbic Acid (Ascorbic Acid 500 Mg Tablet) 500 mg PO BIDCM [facility] Atorvastatin Calcium (Atorvastatin Calcium 80 Mg Tablet) 80 mg PO QHS [facility] Bisacodyl (Bisacodyl 10 Mg Suppository) 10 mg RC DAILY PRN PRN Reason: Constipation Budesonide (Budesonide Respules 0.5 Mg/2 Ml Ampul.Neb.) 0.5 mg INHALATION Q12H.RT [facility] Last Admin: 06/21/20 18:46 Dose: 0.5 mg Documented by: Cholecalciferol (Cholecalciferol (Vit D3) 1,000 Unit (25mcg)) 2,000 unit PO DAILY [facility] Clopidogrel Bisulfate (Clopidogrel Bisulfate 75 Mg Tablet) 75 mg PO DAILY [facility] Folic Acid (Folic Acid 1 Mg Tablet) 1 mg PO DAILY@0800 [facility] Sodium Chloride () 250 mls @ 15 mls/hr IV .[id number] PRN PRN Reason: Additional IVPB Infusion Pantoprazole Sodium 40 mg/ (Sodium Chloride) 110 mls @ 330 mls/hr IV Q24 [facility] Last Infusion: 06/22/20 10:14 Dose: Infused Documented by: Sodium Chloride () 1,000 mls @ 75 mls/hr IV .[id number] [facility] Last Infusion: 06/22/20 15:00 Dose: 75 mls/hr Documented by: Ketorolac Tromethamine (Ketorolac 30 Mg/Ml Syringe) 30 mg IV Q6H PRN PRN PRN Reason: Pain 1-10 or Fever Stop: 06/27/20 11:55 Loperamide HCl (Loperamide 2 Mg Capsule) 2 mg PO Q4H PRN PRN PRN Reason: LOOSE STOOLS Nicotine (Nicotine 21 Mg Patch) 21 mg TD DAILY [facility] Last Admin: 06/22/20 09:51 Dose: 21 mg Documented by: Ondansetron HCl (Ondansetron 4 Mg/2 Ml Vial) 4 mg IV Q8H PRN PRN PRN Reason: NAUSEA/VOMITING Ondansetron HCl (Ondansetron 8 Mg Tablet) 8 mg PO Q8H PRN PRN PRN Reason: NAUSEA Senna (Senna Tablet) 2 tablet PO QHS PRN PRN Reason: Constipation Sodium Chloride (0.9% Saline Lock 10 Ml Syringe) 10 - 40 ml IV UD PRN PRN Reason: SALINE FLUSH Last Admin: 06/22/20 06:33 Dose: 10 ml Documented by: Thiamine HCl (Thiamine Hydrochloride 100 Mg Tablet) 100 mg PO DAILYCM [place] [facility] Vital Signs/Narrative: Vital Signs Temp Pulse Resp BP Pulse Ox 06/22/20 15:53 98.8 F 110 H 18 190/81 H 96 06/22/20 15:37 111 H 06/22/20 15:00 103 H 16 162/83 H 98 06/22/20 14:00 108 H 16 171/77 H 97 06/22/20 13:11 108 H 28 H 94 06/22/20 13:00 105 H 16 158/68 H 95 Medical Necessity - Tobacco Use Smoking Status: Current every day smoker Tobacco Use: Cigarettes Assessment/Plan All Active Problems Back pain (Acute) Cardiopulmonary arrest with successful resuscitation (Acute) GI bleed (Resolved) Hypomagnesemia (Resolved) Hepatitis C (Ruled-out) #Acute cardiopulmonary arrest * likely due to polypharmacy. Attained ROSC after 2 doses of epinephrine * extubated this morning. Off precedex drip * critical are on board * * #Acute respiratory failure * due to cardiac arrest likely from polypharmacy * extubated this morning. * 2D echo showed EF of 75%, with hyperdynamic LV and no regional wall motion abnormalities noted; left atrium mildly enlarged, right atrium moderately enlarged, RVSP of 75mmHg, consisent with severe pulmonary hypertension * titrate oxygen to maintain sats >90% * breathing treatment with bronchodilators * * #Acute on chronic lower back pain with left lower leg weakness * MRI of the lumbar spine showed multilevel degenerative disc changes with severe narrowing of the left neural foramen at L4-5 due to left foraminal disc herniation impinging on the left L4 nerve root. * to follow up with spine surgery once he is clinically stable * #Acute alcohol withdrawal * extubated, now off precedex drip * monitor CIWA score * #Iron deficiency anemia * s/p transfusion of one unit of PRBC * Hb today is 8.6 * had EGD in 2019 which showed erythematous mucosa in the gastric antrum, and nonbleeding grade II varices * no colonoscopy on file * to follow up with general surgery/gastroenterology on outpatient basis * on IV pantoprazole * #Hypertension: hold amlodipine and metoprolol due to hypotension #COPD: Not in exacerbation. On Symbicort. Breathing treatments as needed. #Anxiety and depression: On bupropion, Celexa and BuSpar #History of CVA with bilateral carotid stenosis: On Plavix and statin. #Debility due to chronic back pain: PT OT on board. Fall precaution. DVT prophylaxis: SCDs Inpatient E&M: [id number] Subs Hosp L3
[2020-06-22] MEDS: Ascorbic Acid 500 MG Tablet PO (17:41)
[2020-06-22] MEDS: Ketorolac 30 MG/ML Syringe IV (18:54)
[2020-06-22] MEDS: Labetalol (Compound) 20 MG/4 ML SYRINGE 10 MG IV (18:55)
[2020-06-22] MEDS: Budesonide Respules 0.5 MG/2 ML AMPUL.NEB. INHALATION (19:10)
[2020-06-22] MEDS: amLODIPine 5 MG Tablet PO (19:42)
[2020-06-22] MEDS: Metoprolol Tartrate 100 MG Tablet PO (22:56)
[2020-06-22] MEDS: Atorvastatin Calcium 80 MG Tablet PO (22:56)
--- NOTE | 2020-06-22 23:26 | RAD_ITS ---
STUDY: X-RAY CHEST REASON FOR EXAM: Male, 59 years old. tachypnea TECHNIQUE: Single AP portable view of the chest. COMPARISON: 06/20/2020 FINDINGS: There are superimposed monitor leads. There is low inspiratory level. Interval removal of endotracheal and enteric tube. There is improved aeration in the right base, accentuation of bronchovascular markings, areas of hyperinflation, faint right perihilar opacification. There is no demonstrated pleural abnormality. There is mild cardiac enlargement. Normal mediastinum and emma. Normal visualized pulmonary arteries. Normal visualized aortic arch and descending thoracic aorta. Age-appropriate thoracic spine. Normal visualized ribs, clavicles, and shoulders. Stent placement over the right thoracic inlet is stable. There is no demonstrated abnormality of the visualized soft tissue structures of the upper abdomen. RAD/Chest 1 View (Portable) IMPRESSION: Stable cardiomegaly. Component of COPD, accentuation of bronchovascular markings suspected. Minimal residual opacification/airspace disease possibly in the right perihilar parenchyma could represent an inflammatory process. Electronically Signed: No Vernon MD at 0:37 EST , Service support ,
[2020-06-23] VITALS (34 sets, daily range): BP systolic 95–203; BP diastolic 42–127; PULSE 87–100; RESP 15–32; TEMP 37–37.6; O2SAT 90–100
[2020-06-23] MEDS: Furosemide 40 MG/4 ML Vial IV ×3 (00:06→13:35)
[2020-06-23] MEDS: Ketorolac 30 MG/ML Syringe IV ×3 (01:09→20:38)
[2020-06-23] MEDS: guaiFENesin 1,200 MG Tablet 1200 MG PO ×3 (01:09→22:06)
[2020-06-23] MEDS: Mag Hydrox/Al Hydrox/Simeth 30 ML UDC PO ×2 (03:22→18:41)
[2020-06-23 05:25] LABS: Absolute Lymphocyte Count 0.56 X10^3/uL (0.83-4.51); Absolute Neutrophil Count 5.7 X10^3/uL (2.0-7.7); Basophil# 0.02 X10^3/uL; Basophil% 0.3 % (0-1); Eosinophil# 0.06 X10^3/uL; Eosinophils% 0.8 % (0-5); Hematocrit 29.8 % (40-54); Hemoglobin 8.8 g/dL (13.0-16.5); Lymphocyte # 0.56 X10^3/ul (4.0); Lymphocyte % 7.9 % (19-41); Mean Corp Hgb Conc 29.5 g/dL (32-36); Mean Corpuscular Hgb 25.9 pg (27.0-32.0); Mean Corpuscular Volume 87.6 fL (80-94); Mean Platelet Vol. 10.9 fl (6.2-12.0); Monocyte# 0.76 X10^3/uL; Monocyte% 10.7 % (0-10); NRBC Flagged by Analyzer 0 % (0-5); POSITIVE COUNT YES; POSITIVE DIFFERENTIAL YES; Platelet Count 92 K/mm3 (150-450); RBC Distribution Width CV 17.2 % (11.6-14.6); RBC Distribution Width SD 53.4 fl (35.1-43.9); White Blood Count 7.1 K/mm3 (4.4-11.0)
[2020-06-23 05:35] LABS: Differential Indicated SCAN CRITERIA MET
[2020-06-23 05:36] LABS: Anion Gap 9 (5-15); BUN 22 mg/dL (7-18); BUN/Creat Ratio 17.5 RATIO (10-20); Chloride 108 mmol/L (98-107); Creatinine, Serum 1.26 mg/dL (0.70-1.30); EST Glomerular Filtration Rate 62 mL/min (>60); Est Glom Filt Rate - Afr Amer 75 mL/min (>60); Estimated Creatinine Clearance 59.02 ml/min; Glucose 111 mg/dL (74-106); Potassium 3.2 mmol/L (3.5-5.1); Sodium Level 144 mmol/L (136-145)
--- NOTE | 2020-06-23 05:37 | PCM.PN.INT ---
Subjective: The patient was seen and examined at the bedside this morning. Events from the last 24 hours have been reviewed. The patient is currently afebrile, hemodynamically stable and maintaining appropriate oxygen saturations on 4 L/min via nasal cannula. Potassium is low this morning at 3.2. Creatinine has improved to 1.26. The patient is currently documented to be overall net +4 L for the hospital admission. The patient does report the presence of shortness of breath this morning and has had a productive cough overnight. Objective: The patient's most recent lab work, culture data and imaging studies have all been personally reviewed. Surface echocardiogram from October 2019 revealed mild concentric LVH with an ejection fraction of 75% and stage III diastolic dysfunction. RV was noted to be moderately dilated. Moderate to severe mitral valve regurgitation was noted. Right ventricular systolic pressure was estimated to be 80 mmHg. General: Alert, Cooperative, No apparent distress HEENT: Atraumatic, Normocephalic Oral: No Gingival or Mucosal Lesions/ Ulcerations Neck: Supple, No Nodes, Trachea Midline Lungs: Diminished, Rhonchi, Tachypneic Cardiovascular: Normal S1, Normal S2, Tachycardic Abdomen: Bowel Sounds Present, Soft, Non Tender Extremities: No clubbing, No cyanosis, No edema Skin: No breakdown Musculoskeletal: No Tenderness to Palpation of Joints or Extremities Lymphatic: No Cervical, Supraclavicular, or Inguinal Adenopathy Neurological: Cranial nerves II-XII grossly intact, Neuro grossly intact Psych/Mental Status: Anxious Vital Signs Temp Pulse Resp BP Pulse Ox 98.6 F 89 32 H 148/63 H 91 06/23/20 04:00 06/23/20 04:00 06/23/20 04:00 06/23/20 04:00 06/23/20 04:00 Oxygen Flow Rate (L/min) 4 Oxygen Delivery Method Nasal Cannula Weight: 184 lb 15.485 oz Body Mass Index (BMI) 28.1 Finger Stick Blood Glucose 120 Intake and Output for Last 24 Hours 06/21/20 06/22/20 06/23/20 23:59 23:59 23:59 Intake Total 4553.12 / 4693.62 3705.09 / 3705.09 Output Total 840 / 885 3720 / 3870 1325 / 1325 Balance 3713.12 / 3808.62 -14.91 / -164.91 -1325 / -1325 Labs (Last 48 Hours) 06/20/20 06/21/20 06/21/20 06:30 06:30 11:47 WBC RBC Hgb Hct MCV MCH MCHC RDW Std Deviation RDW Coeff of Donnie Plt Count MPV Immature Gran % (Auto) Neut % (Auto) Lymph % (Auto) [place] % (Auto) Eos % (Auto) Baso % (Auto) Absolute Neuts (auto) Absolute Lymphs (auto) Nucleated RBC % Sodium Potassium Chloride Carbon Dioxide Anion Gap BUN Creatinine Estim Creat Clear Calc Est GFR (MDRD) Af Amer Est GFR (MDRD) Non-Af BUN/Creatinine Ratio Glucose Calcium POC Glucose 132 H Blood Type O POSITIVE Antibody Screen NEGATIVE Crossmatch See Detail 06/21/20 06/22/20 06/22/20 17:51 00:10 04:15 WBC 7.8 RBC 3.06 L Hgb 8.2 L Hct 27.1 L MCV 88.6 MCH 26.8 L MCHC 30.3 L RDW Std Deviation 55.2 H RDW Coeff of Donnie 17.2 H Plt Count 87 L MPV 11.7 Immature Gran % (Auto) 0.400 Neut % (Auto) 78.6 H Lymph % (Auto) 10.6 L [place] % (Auto) 9.8 Eos % (Auto) 0.5 Baso % (Auto) 0.1 Absolute Neuts (auto) 6.1 Absolute Lymphs (auto) 0.82 L Nucleated RBC % 0 Sodium Potassium Chloride Carbon Dioxide Anion Gap BUN Creatinine Estim Creat Clear Calc Est GFR (MDRD) Af Amer Est GFR (MDRD) Non-Af BUN/Creatinine Ratio Glucose Calcium POC Glucose 125 H 132 H Blood Type Antibody Screen Crossmatch 06/22/20 06/22/20 06/23/20 04:15 06:28 05:15 WBC 7.1 RBC 3.40 L Hgb 8.8 L Hct 29.8 L MCV 87.6 MCH 25.9 L MCHC 29.5 L RDW Std Deviation 53.4 H RDW Coeff of Donnie 17.2 H Plt Count 92 L MPV 10.9 Immature Gran % (Auto) 0.300 Neut % (Auto) 80.0 H Lymph % (Auto) 7.9 L [place] % (Auto) 10.7 H Eos % (Auto) 0.8 Baso % (Auto) 0.3 Absolute Neuts (auto) 5.7 Absolute Lymphs (auto) 0.56 L Nucleated RBC % 0 Sodium 141 Potassium 3.8 Chloride 110 H Carbon Dioxide 26.0 Anion Gap 5 BUN 26 H Creatinine 1.41 H Estim Creat Clear Calc 52.74 Est GFR (MDRD) Af Amer 66 Est GFR (MDRD) Non-Af 55 L BUN/Creatinine Ratio 18.4 Glucose 133 H Calcium 8.3 L POC Glucose 123 H Blood Type Antibody Screen Crossmatch 06/23/20 05:15 WBC RBC Hgb Hct MCV MCH MCHC RDW Std Deviation RDW Coeff of Donnie Plt Count MPV Immature Gran % (Auto) Neut % (Auto) Lymph % (Auto) [place] % (Auto) Eos % (Auto) Baso % (Auto) Absolute Neuts (auto) Absolute Lymphs (auto) Nucleated RBC % Sodium 144 Potassium 3.2 L Chloride 108 H Carbon Dioxide 27.0 Anion Gap 9 BUN 22 H Creatinine 1.26 Estim Creat Clear Calc 59.02 Est GFR (MDRD) Af Amer 75 Est GFR (MDRD) Non-Af 62 BUN/Creatinine Ratio 17.5 Glucose 111 H Calcium 9.0 POC Glucose Blood Type Antibody Screen Crossmatch Microbiology 06/20/20 02:55 Blood Culture (Wb) - Left Hand Blood Culture - Preliminary No growth in 48 hours. 06/20/20 02:55 Blood Culture (Wb) - Right Hand Blood Culture - Preliminary No growth in 48 hours. 06/20/20 02:55 Urine Catheter - Catheter Urine Culture - Preliminary Enterococcus faecalis Clinical Impression(s) from Imaging Studies Lumbar Spine MRI 06/19/20 09:00 IMPRESSION: Multilevel degenerative changes, as described above. Severe narrowing of left neural foramen at L4-5 due to left foraminal disc herniation impinging on the left L4 nerve root. Electronically Signed: Yary Kamara MD at 11:52 EST Tel , Service support , Chest X-Ray 06/20/20 00:21 IMPRESSION: Placement of endotracheal tube and nasogastric tube. Cardiomegaly. Mild pulmonary vascular congestion. No focal consolidation identified. Otherwise no significant interval change in appearance of the chest. Electronically Signed: Andrey Roa MD at 1:46 EST Tel , Service support , Chest X-Ray 06/22/20 23:26 IMPRESSION: Stable cardiomegaly. Component of COPD, accentuation of bronchovascular markings suspected. Minimal residual opacification/airspace disease possibly in the right perihilar parenchyma could represent an inflammatory process. Electronically Signed: No Vernon MD at 0:37 EST , Service support , Medical Necessity - Tobacco Use Smoking Status: Current every day smoker Tobacco Use: Cigarettes Assessment/Plan All Active Problems Back pain (Acute) Cardiopulmonary arrest with successful resuscitation (Acute) GI bleed (Resolved) Hypomagnesemia (Resolved) Hepatitis C (Ruled-out) RECOMMENDATIONS: 1. Restart home antihypertensive medications. 2. Aggressive bronchopulmonary hygiene. 3. Obtain repeat chest x-ray this morning. If there appears to be an evolving infiltrate, will start antibiotics. 4. Continue attempts at diuresis as tolerated by hemodynamics and renal function. 5. Continue scheduled bronchodilators and inhaled corticosteroid. 6. Continue nicotine replacement therapy. 7. Encourage incentive spirometer use and mobilize patient as tolerated. IMPRESSIONS: 1. Acute hypoxemic respiratory failure The patient was initially intubated as a consequence of a CODE BLUE and subsequent ACLS. I do suspect that his respiratory failure may have been related to polypharmacy. Chest x-ray did not demonstrate evidence of a focal consolidation to suggest pneumonia. The patient has improved from a respiratory perspective and was able to be extubated on the morning of June 22. Plan to continue supplemental oxygen to maintain saturations at or above 90%. Given that the patient is more rhonchorous this morning, will obtain chest x-ray and if there are findings concerning for evolving pneumonia, will start on empiric antimicrobials. The patient will also be continued on twice daily Lasix. Recommend aggressive bronchopulmonary hygiene. 2. Acute alcohol withdrawal If the patient demonstrates any residual signs of withdrawal upon extubation, CIWA protocol can be reinitiated. 3. Acute on chronic low back pain Continue current pain control regimen and follow-up on outpatient basis. 4. Hypokalemia Electrolyte repletion as ordered. Recheck levels in the morning. 5. Chronic tobacco dependency/anemia/hypertension/anxiety/depression Complicates care, management, recovery and prognosis. Continue to monitor H&H and transfuse if hemoglobin drops below 7 g/dL. This note was generated with [facility] dictation software. It may contain incorrect words, spelling, and punctuation that were not noted in checking the note before signing. Inpatient E&M: 11429 Subs Hosp L3
[2020-06-23] MEDS: Potassium Chloride 10mEq/100mL 10 MEQ/100 ML IV.SOLN. 100 MEQ IV BOLUS ×4 (06:07→12:17)
[2020-06-23] MEDS: Budesonide Respules 0.5 MG/2 ML AMPUL.NEB. INHALATION ×2 (07:30→19:01)
[2020-06-23] MEDS: Albuterol 2.5 MG/3 ML VIAL.NEB. INHALATION (07:30)
[2020-06-23] MEDS: Metoprolol Tartrate 100 MG Tablet PO ×2 (07:54→20:35)
[2020-06-23] MEDS: Folic Acid 1 MG Tablet PO (07:54)
[2020-06-23] MEDS: Thiamine Hydrochloride 100 MG Tablet PO (07:55)
[2020-06-23] MEDS: Ascorbic Acid 500 MG Tablet PO ×2 (07:55→16:13)
[2020-06-23] MEDS: amLODIPine 5 MG Tablet PO (08:04)
[2020-06-23] MEDS: Clopidogrel Bisulfate 75 MG Tablet PO (08:08)
[2020-06-23] MEDS: Labetalol (Prefilled) 20 MG/4 ML IV (08:33)
--- NOTE | 2020-06-23 08:35 | RAD_ITS ---
STUDY: X-RAY CHEST REASON FOR EXAM: Male, 59 years old. Respiratory Failure , cough, dyspnea TECHNIQUE: Single AP portable view of the chest. COMPARISON: 06/20/2020 FINDINGS: Enteric and endotracheal tubes have been removed. EKG leads project over the chest. Vascular stent projects over the right lower neck. Lungs are underexpanded more so than the prior study with patchy interstitial and groundglass opacities more conspicuous. There is no demonstrated pleural abnormality. There is borderline cardiomegaly. Normal mediastinum and emma. Normal visualized pulmonary arteries. Normal visualized aortic arch and descending thoracic aorta. No acute bony process. There is no demonstrated abnormality of the visualized soft tissue structures of the upper abdomen. RAD/Chest 1 View (Portable) IMPRESSION: 1. Unfavorable change. Developing multilobar atelectasis versus infiltrates (edema versus pneumonia). 2. Extubation. Electronically Signed: Ronen Moseley MD ([place]) at 8:52 EST , Service support ,
--- NOTE | 2020-06-23 10:24 | PCM.PN.HOSP ---
Patient Problems: Active and Suspected Problems Back pain (Acute) Cardiopulmonary arrest with successful resuscitation (Acute) Subjective: Patient seen and examined. Patient was more short of breath and was sitting propped up in bed. He had very audible wheezing and rhonchi. He did receive Lasix overnight on account of concerns of fluid overload. He does have a low-grade fever of 99.3 Fahrenheit this morning and was tachypneic at 26. Chemistry showed potassium of 3.2. Vitals/I&O's: Vital Signs Temp Pulse Resp BP Pulse Ox 99.3 F H 100 27 H 180/107 H 95 06/23/20 08:00 06/23/20 08:00 06/23/20 08:00 06/23/20 08:00 06/23/20 08:00 Oxygen Flow Rate (L/min) 6 Oxygen Delivery Method Nasal Cannula Weight: 184 lb 15.485 oz Body Mass Index (BMI) 28.1 Finger Stick Blood Glucose 120 Intake and Output for Last 24 Hours 06/21/20 06/22/20 06/23/20 23:59 23:59 23:59 Intake Total 4553.12 / 4693.62 3705.09 / 3705.09 310 / 310 Output Total 840 / 885 3720 / 3870 3175 / 3175 Balance 3713.12 / 3808.62 -14.91 / -164.91 -2865 / -2865 General: - -alert, restless, extubated HEENT: Atraumatic, PERRLA, EOMI, Normocephalic Oral: Dry Mucosa Neck: Supple, No JVD, Negative Carotid Bruits Lungs:very coarse rhonchi in all lung cuellar, sitting propped up in bed, now on 50L of oxygen via hi flow nasal canula Cardiovascular: Regular rate, Regular Rhythm, Normal S1, Normal S2, No murmurs Abdomen: Bowel Sounds Present, Soft, Non Tender, Non-Distended, No Hepato-splenomegaly Extremities: No clubbing, No cyanosis, No edema, Capillary Refill Less than 3 Seconds Skin: No rashes, No breakdown Musculoskeletal: No Tenderness to Palpation of Joints or Extremities Lymphatic: No Cervical, Supraclavicular, or Inguinal Adenopathy Neurological: moving all limbs spontaneously, restless, Psych/Mental Status: - -anxious Microbiology Past 72 Hours 06/20/20 02:55 Urine Catheter - Catheter Urine Culture - Preliminary Enterococcus faecalis 06/20/20 02:55 Blood Culture (Wb) - Left Hand Blood Culture - Preliminary No growth in 48 hours. 06/20/20 02:55 Blood Culture (Wb) - Right Hand Blood Culture - Preliminary No growth in 48 hours. Laboratory Results 06/23/20 05:15: WBC 7.1, RBC 3.40 L, Hgb 8.8 L, Hct 29.8 L, MCV 87.6, MCH 25.9 L, MCHC 29.5 L, RDW Std Deviation 53.4 H, RDW Coeff of Donnie 17.2 H, Plt Count 92 L, MPV 10.9, Immature Gran % (Auto) 0.300, Neut % (Auto) 80.0 H, Lymph % (Auto) 7.9 L, [place] % (Auto) 10.7 H, Eos % (Auto) 0.8, Baso % (Auto) 0.3, Absolute Neuts (auto) 5.7, Absolute Lymphs (auto) 0.56 L, Nucleated RBC % 0 06/23/20 05:15: Sodium 144, Potassium 3.2 L, Chloride 108 H, Carbon Dioxide 27.0, Anion Gap 9, BUN 22 H, Creatinine 1.26, Estim Creat Clear Calc 59.02, Est GFR (MDRD) Af Amer 75, Est GFR (MDRD) Non-Af 62, BUN/Creatinine Ratio 17.5, Glucose 111 H, Calcium 9.0 Diagnostic Data Lumbar Spine MRI 06/19/20 09:00 IMPRESSION: Multilevel degenerative changes, as described above. Severe narrowing of left neural foramen at L4-5 due to left foraminal disc herniation impinging on the left L4 nerve root. Electronically Signed: Yary Kamara MD at 11:52 EST Tel , Service support , Chest X-Ray 06/23/20 08:35 IMPRESSION: 1. Unfavorable change. Developing multilobar atelectasis versus infiltrates (edema versus pneumonia). 2. Extubation. Electronically Signed: Ronen Moseley MD ([place]) at 8:52 EST , Service support , Current Medications Acetaminophen (Acetaminophen 650 Mg/20 Ml Udc) 650 mg PO Q6H PRN PRN PRN Reason: Pain Score 1-10 Al Hydroxide/Mg Hydroxide (Mag Hydrox/Al Hydrox/Simeth 30 Ml Udc) 30 ml PO Q6H PRN PRN PRN Reason: dyspesia Last Admin: 06/23/20 03:22 Dose: 30 ml Documented by: Albuterol Sulfate (Albuterol 2.5 Mg/3 Ml Vial.Neb.) 2.5 mg INHALATION Q4H PRN PRN PRN Reason: SOB &/OR WHEEZING Last Admin: 06/17/20 19:39 Dose: 2.5 mg Documented by: Albuterol/Ipratropium (Ipratropium/Albuterol Sulfate 3 Ml Ampul.Neb) 3 ml INHALATION Q4HWA.RT REPLACED BY [facility] Amlodipine Besylate (Amlodipine 5 Mg Tablet) 5 mg PO DAILY REPLACED BY [facility] Last Admin: 06/23/20 08:04 Dose: 5 mg Documented by: Ascorbic Acid (Ascorbic Acid 500 Mg Tablet) 500 mg PO BIDCM REPLACED BY [facility] Last Admin: 06/23/20 07:55 Dose: 500 mg Documented by: Atorvastatin Calcium (Atorvastatin Calcium 80 Mg Tablet) 80 mg PO QHS REPLACED BY [facility] Last Admin: 06/22/20 22:56 Dose: 80 mg Documented by: Bisacodyl (Bisacodyl 10 Mg Suppository) 10 mg RC DAILY PRN PRN Reason: Constipation Budesonide (Budesonide Respules 0.5 Mg/2 Ml Ampul.Neb.) 0.5 mg INHALATION Q12H.RT REPLACED BY [facility] Last Admin: 06/23/20 07:30 Dose: 0.5 mg Documented by: Cholecalciferol (Cholecalciferol (Vit D3) 1,000 Unit (25mcg)) 2,000 unit PO DAILY REPLACED BY [facility] Last Admin: 06/23/20 08:08 Dose: 2,000 unit Documented by: Clopidogrel Bisulfate (Clopidogrel Bisulfate 75 Mg Tablet) 75 mg PO DAILY REPLACED BY [facility] Last Admin: 06/23/20 08:08 Dose: 75 mg Documented by: Folic Acid (Folic Acid 1 Mg Tablet) 1 mg PO DAILY@0800 REPLACED BY [facility] Last Admin: 06/23/20 07:54 Dose: 1 mg Documented by: Furosemide (Furosemide 40 Mg/4 Ml Vial) 40 mg IV X1 ONE Stop: 06/23/20 14:01 Guaifenesin (Guaifenesin 1,200 Mg Tablet) 1,200 mg PO BID REPLACED BY [facility] Last Admin: 06/23/20 08:08 Dose: 1,200 mg Documented by: Sodium Chloride () 250 mls @ 15 mls/hr IV .[id number] PRN PRN Reason: Additional IVPB Infusion Pantoprazole Sodium 40 mg/ (Sodium Chloride) 110 mls @ 330 mls/hr IV Q24 REPLACED BY [facility] Last Infusion: 06/23/20 10:01 Dose: Infused Documented by: Piperacillin Sod/Tazobactam (Sod 3.375 gm/ Sodium Chloride) 50 mls @ 12.5 mls/hr IV Q8 REPLACED BY [facility] Ketorolac Tromethamine (Ketorolac 30 Mg/Ml Syringe) 30 mg IV Q6H PRN PRN PRN Reason: Pain 1-10 or Fever Stop: 06/27/20 11:55 Last Admin: 06/23/20 01:09 Dose: 30 mg Documented by: Labetalol HCl (Labetalol (Prefilled) 20 Mg/4 Ml) 10 mg IV Q4H PRN PRN PRN Reason: SBP> 180 Loperamide HCl (Loperamide 2 Mg Capsule) 2 mg PO Q4H PRN PRN PRN Reason: LOOSE STOOLS Metoprolol Tartrate (Metoprolol Tartrate 100 Mg Tablet) 100 mg PO BID REPLACED BY [facility] Last Admin: 06/23/20 07:54 Dose: 100 mg Documented by: Nicotine (Nicotine 21 Mg Patch) 21 mg TD DAILY REPLACED BY [facility] Last Admin: 06/23/20 09:38 Dose: 21 mg Documented by: Ondansetron HCl (Ondansetron 4 Mg/2 Ml Vial) 4 mg IV Q8H PRN PRN PRN Reason: NAUSEA/VOMITING Ondansetron HCl (Ondansetron 8 Mg Tablet) 8 mg PO Q8H PRN PRN PRN Reason: NAUSEA Senna (Senna Tablet) 2 tablet PO QHS PRN PRN Reason: Constipation Sodium Chloride (0.9% Saline Lock 10 Ml Syringe) 10 - 40 ml IV UD PRN PRN Reason: SALINE FLUSH Last Admin: 06/22/20 06:33 Dose: 10 ml Documented by: Thiamine HCl (Thiamine Hydrochloride 100 Mg Tablet) 100 mg PO DAILYCM MAREITTA Last Admin: 06/23/20 07:55 Dose: 100 mg Documented by: STROKE Vital Signs/Narrative: Vital Signs Temp Pulse Resp BP BP Pulse Ox 06/23/20 08:00 99.3 F H 100 27 H 180/107 H 95 06/23/20 07:54 97 190/81 H 06/23/20 07:36 99 30 H 94 06/23/20 07:00 100 24 H 182/108 H 90 Medical Necessity - Tobacco Use Smoking Status: Current every day smoker Tobacco Use: Cigarettes Assessment/Plan All Active Problems Back pain (Acute) Cardiopulmonary arrest with successful resuscitation (Acute) GI bleed (Resolved) Hypomagnesemia (Resolved) Hepatitis C (Ruled-out) #Acute cardiopulmonary arrest likely due to polypharmacy. Attained ROSC after 2 doses of epinephrine extubated this morning. Off precedex drip critical are on board #Acute respiratory failure now having very coarse rhonchi in all cuellar. Likely due to fluid overload CXR today showed developing multilobar atelectasis vs infiltrate 2D echo showed EF of 75%, with hyperdynamic LV and no regional wall motion abnormalities noted; left atrium mildly enlarged, right atrium moderately enlarged, RVSP of 75mmHg, consistent with severe pulmonary hypertension titrate oxygen to maintain sats >90% breathing treatment with bronchodilators started on IV lasix. MOnitor intake and output #Acute on chronic lower back pain with left lower leg weakness MRI of the lumbar spine showed multilevel degenerative disc changes with severe narrowing of the left neural foramen at L4-5 due to left foraminal disc herniation impinging on the left L4 nerve root. to follow up with spine surgery once he is clinically stable #Acute alcohol withdrawal extubated, now off precedex drip monitor CIWA score #Iron deficiency anemia s/p transfusion of one unit of PRBC Hb today is 8.8 had EGD in 2020 which showed erythematous mucosa in the gastric antrum, and nonbleeding grade II varices no colonoscopy on file to follow up with general surgery/gastroenterology on outpatient basis on IV pantoprazole #Hypokalemia: K is 3.2. Will replace and monitor #Hypertension: hold amlodipine and metoprolol due to hypotension #COPD: Not in exacerbation. On Symbicort. Breathing treatments as needed. #Anxiety and depression: On bupropion, Celexa and BuSpar #History of CVA with bilateral carotid stenosis: On Plavix and statin. #Debility due to chronic back pain: PT OT on board. Fall precaution. DVT prophylaxis: SCDs Inpatient E&M: [id number] [facility] Hosp L3
[2020-06-23] MEDS: Ipratropium/Albuterol Sulfate 3 ML AMPUL.NEB INHALATION ×3 (10:32→19:01)
[2020-06-23] MEDS: 0.9% Saline Lock 10 ML Syringe IV ×2 (20:39→22:05)
[2020-06-23] MEDS: Atorvastatin Calcium 80 MG Tablet PO (22:06)
[2020-06-24] VITALS (22 sets, daily range): BP systolic 132–184; BP diastolic 61–97; PULSE 78–96; RESP 16–22; TEMP 36.7–37.5; O2SAT 92–100
[2020-06-24 04:27] LABS: Absolute Lymphocyte Count 0.59 X10^3/uL (0.83-4.51); Absolute Neutrophil Count 2.7 X10^3/uL (2.0-7.7); Basophil# 0.01 X10^3/uL; Basophil% 0.3 % (0-1); Eosinophil# 0.06 X10^3/uL; Eosinophils% 1.6 % (0-5); Hematocrit 28.6 % (40-54); Hemoglobin 8.6 g/dL (13.0-16.5); Lymphocyte # 0.59 X10^3/ul (4.0); Lymphocyte % 15.2 % (19-41); Mean Corp Hgb Conc 30.1 g/dL (32-36); Mean Corpuscular Hgb 26.3 pg (27.0-32.0); Mean Corpuscular Volume 87.5 fL (80-94); Mean Platelet Vol. 10.9 fl (6.2-12.0); Monocyte# 0.48 X10^3/uL; Monocyte% 12.4 % (0-10); NRBC Flagged by Analyzer 0 % (0-5); Neutrophil # 2.71 X10^3/uL (2.7-7.7); POSITIVE COUNT YES; POSITIVE DIFFERENTIAL YES; Platelet Count 93 K/mm3 (150-450); RBC Distribution Width CV 17.4 % (11.6-14.6); RBC Distribution Width SD 55.5 fl (35.1-43.9); Red Blood Count 3.27 M/mm3 (4.6-6.2); White Blood Count 3.9 K/mm3 (4.4-11.0)
[2020-06-24 04:54] LABS: Differential Indicated SCAN CRITERIA MET
[2020-06-24 04:57] LABS: Anion Gap 7 (5-15); BUN 22 mg/dL (7-18); BUN/Creat Ratio 17.1 RATIO (10-20); Chloride 104 mmol/L (98-107); Creatinine, Serum 1.29 mg/dL (0.70-1.30); EST Glomerular Filtration Rate 60 mL/min (>60); Est Glom Filt Rate - Afr Amer 73 mL/min (>60); Estimated Creatinine Clearance 57.65 ml/min; Glucose 115 mg/dL (74-106); Potassium 2.7 mmol/L (3.5-5.1); Sodium Level 144 mmol/L (136-145)
--- NOTE | 2020-06-24 05:33 | PN_ITS ---
Subjective: The patient was seen and examined at the bedside this morning. Events from the last 24 hours have been reviewed. The patient is currently afebrile, hemodynamically stable and maintaining appropriate oxygen saturations on 2 L/min via nasal cannula. Potassium is low this morning at 2.7. The patient diuresed well yesterday with IV Lasix. The patient is now overall net positive less than 1 L for the hospital admission. The patient does report interval improvement in his shortness of breath since yesterday. However, he does continue to report the presence of a cough. Objective: The patient's most recent lab work, culture data and imaging studies have all been personally reviewed. Surface echocardiogram from October 2019 revealed mild concentric LVH with an ejection fraction of 75% and stage III diastolic dysfunction. RV was noted to be moderately dilated. Moderate to severe mitral valve regurgitation was noted. Right ventricular systolic pressure was estimated to be 80 mmHg. General: Alert, Cooperative, No apparent distress HEENT: Atraumatic, Normocephalic Oral: No Gingival or Mucosal Lesions/ Ulcerations Neck: Supple, No Nodes, Trachea Midline Lungs: No rhonchi, No wheeze, No rales, Diminished, - - Significant improvement from yesterday. Cardiovascular: Regular rate, Regular Rhythm Abdomen: Bowel Sounds Present, Soft, Non Tender Extremities: No clubbing, No cyanosis, No edema Skin: No breakdown Musculoskeletal: No Tenderness to Palpation of Joints or Extremities Lymphatic: No Cervical, Supraclavicular, or Inguinal Adenopathy Neurological: Cranial nerves II-XII grossly intact, Neuro grossly intact Psych/Mental Status: Normal Affect, Appropriate Vital Signs Temp Pulse Resp BP Pulse Ox 98.8 F 85 22 H 132/61 H 96 06/24/20 04:00 06/24/20 04:00 06/24/20 04:00 06/24/20 04:00 06/24/20 04:00 Oxygen Flow Rate (L/min) 2 Oxygen Delivery Method Nasal Cannula Weight: 184 lb 15.485 oz Body Mass Index (BMI) 28.1 Finger Stick Blood Glucose 120 Intake and Output for Last 24 Hours 06/22/20 06/23/20 06/24/20 23:59 23:59 23:59 Intake Total 3705.09 / 3705.09 560 / 560 50 / 50 Output Total 3720 / 3870 4850 / 5025 300 / 300 Balance -14.91 / -164.91 -4290 / -4465 -250 / -250 Labs (Last 48 Hours) 06/22/20 06/22/20 06/22/20 04:15 04:15 06:28 WBC 7.8 RBC 3.06 L Hgb 8.2 L Hct 27.1 L MCV 88.6 MCH 26.8 L MCHC 30.3 L RDW Std Deviation 55.2 H RDW Coeff of Donnie 17.2 H Plt Count 87 L MPV 11.7 Immature Gran % (Auto) 0.400 Neut % (Auto) 78.6 H Lymph % (Auto) 10.6 L [place] % (Auto) 9.8 Eos % (Auto) 0.5 Baso % (Auto) 0.1 Absolute Neuts (auto) 6.1 Absolute Lymphs (auto) 0.82 L Nucleated RBC % 0 Diff Path Review Sodium 141 Potassium 3.8 Chloride 110 H Carbon Dioxide 26.0 Anion Gap 5 BUN 26 H Creatinine 1.41 H Estim Creat Clear Calc 52.74 Est GFR (MDRD) Af Amer 66 Est GFR (MDRD) Non-Af 55 L BUN/Creatinine Ratio 18.4 Glucose 133 H Calcium 8.3 L POC Glucose 123 H 06/23/20 06/23/20 06/24/20 05:15 05:15 04:10 WBC 7.1 3.9 L RBC 3.40 L 3.27 L Hgb 8.8 L 8.6 L Hct 29.8 L 28.6 L MCV 87.6 87.5 MCH 25.9 L 26.3 L MCHC 29.5 L 30.1 L RDW Std Deviation 53.4 H 55.5 H RDW Coeff of Donnie 17.2 H 17.4 H Plt Count 92 L 93 L MPV 10.9 10.9 Immature Gran % (Auto) 0.300 0.500 Neut % (Auto) 80.0 H 70.0 Lymph % (Auto) 7.9 L 15.2 L [place] % (Auto) 10.7 H 12.4 H Eos % (Auto) 0.8 1.6 Baso % (Auto) 0.3 0.3 Absolute Neuts (auto) 5.7 2.7 Absolute Lymphs (auto) 0.56 L 0.59 L Nucleated RBC % 0 0 Diff Path Review May foll Sodium 144 Potassium 3.2 L Chloride 108 H Carbon Dioxide 27.0 Anion Gap 9 BUN 22 H Creatinine 1.26 Estim Creat Clear Calc 59.02 Est GFR (MDRD) Af Amer 75 Est GFR (MDRD) Non-Af 62 BUN/Creatinine Ratio 17.5 Glucose 111 H Calcium 9.0 POC Glucose 06/24/20 04:10 WBC RBC Hgb Hct MCV MCH MCHC RDW Std Deviation RDW Coeff of Donnie Plt Count MPV Immature Gran % (Auto) Neut % (Auto) Lymph % (Auto) [place] % (Auto) Eos % (Auto) Baso % (Auto) Absolute Neuts (auto) Absolute Lymphs (auto) Nucleated RBC % Diff Path Review Sodium 144 Potassium 2.7 L* Chloride 104 Carbon Dioxide 33.0 H Anion Gap 7 BUN 22 H Creatinine 1.29 Estim Creat Clear Calc 57.65 Est GFR (MDRD) Af Amer 73 Est GFR (MDRD) Non-Af 60 BUN/Creatinine Ratio 17.1 Glucose 115 H Calcium 9.0 POC Glucose Microbiology 06/20/20 02:55 Urine Catheter - Catheter Urine Culture - Preliminary Enterococcus faecalis 06/20/20 02:55 Blood Culture (Wb) - Left Hand Blood Culture - Preliminary No growth in 48 hours. 06/20/20 02:55 Blood Culture (Wb) - Right Hand Blood Culture - Preliminary No growth in 48 hours. Clinical Impression(s) from Imaging Studies Lumbar Spine MRI 06/19/20 09:00 IMPRESSION: Multilevel degenerative changes, as described above. Severe narrowing of left neural foramen at L4-5 due to left foraminal disc herniation impinging on the left L4 nerve root. Electronically Signed: Yary Kamara MD at 11:52 EST Tel , Service support , Chest X-Ray 06/20/20 00:21 IMPRESSION: Placement of endotracheal tube and nasogastric tube. Cardiomegaly. Mild pulmonary vascular congestion. No focal consolidation identified. Otherwise no significant interval change in appearance of the chest. Electronically Signed: Andrey Roa MD at 1:46 EST Tel , Service support , Chest X-Ray 06/22/20 23:26 IMPRESSION: Stable cardiomegaly. Component of COPD, accentuation of bronchovascular markings suspected. Minimal residual opacification/airspace disease possibly in the right perihilar parenchyma could represent an inflammatory process. Electronically Signed: No Vernon MD at 0:37 EST , Service support , Chest X-Ray 06/23/20 08:35 IMPRESSION: 1. Unfavorable change. Developing multilobar atelectasis versus infiltrates (edema versus pneumonia). 2. Extubation. Electronically Signed: Ronen Moseley MD ([place]) at 8:52 EST , Service support , Medical Necessity - Tobacco Use Smoking Status: Current every day smoker Tobacco Use: Cigarettes Assessment/Plan All Active Problems Back pain (Acute) Cardiopulmonary arrest with successful resuscitation (Acute) GI bleed (Resolved) Hypomagnesemia (Resolved) Hepatitis C (Ruled-out) RECOMMENDATIONS: 1. Given the findings noted on the patient's chest x-ray, recommend transitioning him from Zosyn to Augmentin to complete a 7-day treatment course. 2. Continue to wean supplemental oxygen to maintain saturations at or above 90%. 3. Continue bronchodilator and inhaled corticosteroid. 4. Continue current antihypertensive regimen. 5. Continue nicotine replacement therapy. 6. Encourage incentive spirometer use and mobilize patient as tolerated. 7. The patient is medically stable for transfer out of the intensive care unit. IMPRESSIONS: 1. Acute hypoxemic respiratory failure The patient was initially intubated as a consequence of a CODE BLUE and subsequent ACLS. I do suspect that his respiratory failure may have been related to polypharmacy. The patient has improved from a respiratory perspective and was able to be extubated on the morning of June 22. Follow-up chest x-ray did reveal some findings concerning for potential pneumonia. It is certainly plausible that the patient may have aspirated. Accordingly, he was placed on antimicrobials and diuresed. This morning, the patient's respiratory status is significantly improved. Recommend continuing aggressive bronchopulmonary hygiene. Wean supplemental oxygen to maintain saturations at or above 90%. Encourage incentive spirometer use and mobilize patient as tolerated. Okay from my perspective to transition the patient from Zosyn to Augmentin to complete a 7-day treatment course. 2. Acute alcohol withdrawal Resolved. If the patient demonstrates any residual signs of withdrawal upon extubation, CIWA protocol can be reinitiated. 3. Acute on chronic low back pain Continue current pain control regimen and follow-up on outpatient basis. 4. Hypokalemia Electrolyte repletion as ordered. Recheck levels in the morning. 5. Chronic tobacco dependency/anemia/hypertension/anxiety/depression Complicates care, management, recovery and prognosis. Continue to monitor H&H and transfuse if hemoglobin drops below 7 g/dL. This note was generated with [employer] dictation software. It may contain incorrect words, spelling, and punctuation that were not noted in checking the note before signing. Inpatient E&M: 44628 Subs Hosp L3
[2020-06-24] MEDS: Potassium Chloride Oral Tablet 20 MEQ 40 MEQ PO (06:42)
[2020-06-24] MEDS: 0.9% Saline Lock 10 ML Syringe IV ×3 (07:06→14:44)
[2020-06-24] MEDS: Budesonide Respules 0.5 MG/2 ML AMPUL.NEB. INHALATION ×2 (07:11→19:04)
[2020-06-24] MEDS: Ipratropium/Albuterol Sulfate 3 ML AMPUL.NEB INHALATION ×4 (07:11→19:04)
--- NOTE | 2020-06-24 07:39 | PN_ITS ---
Patient Problems: Active and Suspected Problems Back pain (Acute) Cardiopulmonary arrest with successful resuscitation (Acute) Subjective: Patient seen and examined. No active events overnight and he had no complaints. He diuresed well with Lasix yesterday and shortness of breath has improved slightly. He still however has a cough. Potassium is 2.7 today. Review of systems otherwise negative. Vitals/I&O's: Vital Signs Temp Pulse Resp BP Pulse Ox 99.3 F H 95 20 H 149/90 H 94 06/24/20 04:00 06/24/20 07:11 06/24/20 07:11 06/24/20 06:00 06/24/20 07:11 Oxygen Flow Rate (L/min) 2 Oxygen Delivery Method Nasal Cannula Weight: 173 lb 4.533 oz Body Mass Index (BMI) 28.1 Finger Stick Blood Glucose 120 Intake and Output for Last 24 Hours 06/22/20 06/23/20 06/24/20 23:59 23:59 23:59 Intake Total 3705.09 / 3705.09 560 / 560 50 / 50 Output Total 3720 / 3870 4850 / 5025 600 / 600 Balance -14.91 / -164.91 -4290 / -4465 -550 / -550 General: - -alert, restless, HEENT: Atraumatic, PERRLA, EOMI, Normocephalic Oral: Dry Mucosa Neck: Supple, No JVD, Negative Carotid Bruits Lungs:few rhonchi in all lung cuellar, few crackles. On 2L of oxygen Cardiovascular: Regular rate, Regular Rhythm, Normal S1, Normal S2, No murmurs Abdomen: Bowel Sounds Present, Soft, Non Tender, Non-Distended, No Hepato- splenomegaly Extremities: No clubbing, No cyanosis, No edema, Capillary Refill Less than 3 Seconds Skin: No rashes, No breakdown Musculoskeletal: No Tenderness to Palpation of Joints or Extremities Lymphatic: No Cervical, Supraclavicular, or Inguinal Adenopathy Neurological: moving all limbs spontaneously, restless, Psych/Mental Status: - -anxious Microbiology Past 72 Hours 06/20/20 02:55 Urine Catheter - Catheter Urine Culture - Preliminary Enterococcus faecalis 06/20/20 02:55 Blood Culture (Wb) - Left Hand Blood Culture - Preliminary No growth in 48 hours. 06/20/20 02:55 Blood Culture (Wb) - Right Hand Blood Culture - Preliminary No growth in 48 hours. Laboratory Results 06/24/20 04:10: WBC 3.9 L, RBC 3.27 L, Hgb 8.6 L, Hct 28.6 L, MCV 87.5, MCH 26.3 L, MCHC 30.1 L, RDW Std Deviation 55.5 H, RDW Coeff of Donnie 17.4 H, Plt Count 93 L, MPV 10.9, Immature Gran % (Auto) 0.500, Neut % (Auto) 70.0, Lymph % (Auto) 15.2 L, [place] % (Auto) 12.4 H, Eos % (Auto) 1.6, Baso % (Auto) 0.3, Absolute Neuts (auto) 2.7, Absolute Lymphs (auto) 0.59 L, Nucleated RBC % 0, Diff Path Review August06/24/20 04:10: Sodium 144, Potassium 2.7 L*, Chloride 104, Carbon Dioxide 33.0 H, Anion Gap 7, BUN 22 H, Creatinine 1.29, Estim Creat Clear Calc 57.65, Est GFR (MDRD) Af Amer 73, Est GFR (MDRD) Non-Af 60, BUN/Creatinine Ratio 17.1, Glucose 115 H, Calcium 9.0 Current Medications Acetaminophen (Acetaminophen 650 Mg/20 Ml Udc) 650 mg PO Q6H PRN PRN PRN Reason: Pain Score 1-10 Al Hydroxide/Mg Hydroxide (Mag Hydrox/Al Hydrox/Simeth 30 Ml Udc) 30 ml PO Q6H PRN PRN PRN Reason: dyspesia Last Admin: 06/23/20 18:41 Dose: 30 ml Documented by: Albuterol Sulfate (Albuterol 2.5 Mg/3 Ml Vial.Neb.) 2.5 mg INHALATION Q4H PRN PRN PRN Reason: SOB &/OR WHEEZING Last Admin: 06/17/20 19:39 Dose: 2.5 mg Documented by: Albuterol/Ipratropium (Ipratropium/Albuterol Sulfate 3 Ml Ampul.Neb) 3 ml INHALATION Q4HWA.RT [place] Last Admin: 06/24/20 07:11 Dose: 3 ml Documented by: Amlodipine Besylate (Amlodipine 5 Mg Tablet) 5 mg PO DAILY [place] Last Admin: 06/23/20 08:04 Dose: 5 mg Documented by: Ascorbic Acid (Ascorbic Acid 500 Mg Tablet) 500 mg PO BIDCM ON LICENSE OF [facility] Last Admin: 06/23/20 16:13 Dose: 500 mg Documented by: Atorvastatin Calcium (Atorvastatin Calcium 80 Mg Tablet) 80 mg PO QHS ON LICENSE OF [facility] Last Admin: 06/23/20 22:06 Dose: 80 mg Documented by: Bisacodyl (Bisacodyl 10 Mg Suppository) 10 mg RC DAILY PRN PRN Reason: Constipation Budesonide (Budesonide Respules 0.5 Mg/2 Ml Ampul.Neb.) 0.5 mg INHALATION Q12H.RT ON LICENSE OF [facility] Last Admin: 06/24/20 07:11 Dose: 0.5 mg Documented by: Cholecalciferol (Cholecalciferol (Vit D3) 1,000 Unit (25mcg)) 2,000 unit PO DAILY ON LICENSE OF [facility] Last Admin: 06/23/20 08:08 Dose: 2,000 unit Documented by: Clopidogrel Bisulfate (Clopidogrel Bisulfate 75 Mg Tablet) 75 mg PO DAILY ON LICENSE OF [facility] Last Admin: 06/23/20 08:08 Dose: 75 mg Documented by: Folic Acid (Folic Acid 1 Mg Tablet) 1 mg PO DAILY@0800 ON LICENSE OF [facility] Last Admin: 06/23/20 07:54 Dose: 1 mg Documented by: Guaifenesin (Guaifenesin 1,200 Mg Tablet) 1,200 mg PO BID ON LICENSE OF [facility] Last Admin: 06/23/20 22:06 Dose: 1,200 mg Documented by: Sodium Chloride () 250 mls @ 15 mls/hr IV .[id number] PRN PRN Reason: Additional IVPB Infusion Pantoprazole Sodium 40 mg/ (Sodium Chloride) 110 mls @ 330 mls/hr IV Q24 ON LICENSE OF [facility] Last Infusion: 06/23/20 10:01 Dose: Infused Documented by: Piperacillin Sod/Tazobactam (Sod 3.375 gm/ Sodium Chloride) 50 mls @ 12.5 mls/hr IV Q8 ON LICENSE OF [facility] Last Admin: 06/24/20 06:41 Dose: 12.5 mls/hr Documented by: Potassium Chloride () 10 meq in 100 mls @ 100 mls/hr IV BOLUS Q1H ON LICENSE OF [facility] Stop: 06/24/20 09:44 Ketorolac Tromethamine (Ketorolac 30 Mg/Ml Syringe) 30 mg IV Q6H PRN PRN PRN Reason: Pain 1-10 or Fever Stop: 06/27/20 11:55 Last Admin: 06/23/20 20:38 Dose: 30 mg Documented by: Labetalol HCl (Labetalol (Prefilled) 20 Mg/4 Ml) 10 mg IV Q4H PRN PRN PRN Reason: SBP> 180 Loperamide HCl (Loperamide 2 Mg Capsule) 2 mg PO Q4H PRN PRN PRN Reason: LOOSE STOOLS Metoprolol Tartrate (Metoprolol Tartrate 100 Mg Tablet) 100 mg PO BID ON LICENSE OF [facility] Last Admin: 06/23/20 20:35 Dose: 100 mg Documented by: Nicotine (Nicotine 21 Mg Patch) 21 mg TD DAILY ON LICENSE OF [facility] Last Admin: 06/23/20 09:38 Dose: 21 mg Documented by: Ondansetron HCl (Ondansetron 4 Mg/2 Ml Vial) 4 mg IV Q8H PRN PRN PRN Reason: NAUSEA/VOMITING Ondansetron HCl (Ondansetron 8 Mg Tablet) 8 mg PO Q8H PRN PRN PRN Reason: NAUSEA Senna (Senna Tablet) 2 tablet PO QHS PRN PRN Reason: Constipation Sodium Chloride (0.9% Saline Lock 10 Ml Syringe) 10 - 40 ml IV UD PRN PRN Reason: SALINE FLUSH Last Admin: 06/24/20 07:06 Dose: 20 ml Documented by: Thiamine HCl ([facility] Hydrochlor[facility] Mg [facility] Last Admin: 06/23/20 07:55 Dose: 100 mg Documented by: STROKE Vital Signs/Narrative: Vital Signs Temp Pulse Resp BP Pulse Ox 06/24/20 07:11 95 20 H 94 06/24/20 06:00 90 20 H 149/90 H 98 06/24/20 05:00 87 16 165/67 H 98 06/24/20 04:00 99.3 F H 85 22 H 132/61 H 96 Medical Necessity - Tobacco Use Smoking Status: Current every day smoker Tobacco Use: Cigarettes Assessment/Plan All Active Problems Back pain (Acute) Cardiopulmonary arrest with successful resuscitation (Acute) GI bleed (Resolved) Hypomagnesemia (Resolved) Hepatitis C (Ruled-out) #Acute cardiopulmonary arrest * likely due to polypharmacy. Attained ROSC after 2 doses of epinephrine * extubated this morning. Off precedex drip * critical are on board * * #Acute respiratory failure * doing much better today, down to 2L of oxygen * now having very coarse rhonchi in all cuellar. Likely due to fluid overload * CXR today showed developing multilobar atelectasis vs infiltrate * 2D echo showed EF of 75%, with hyperdynamic LV and no regional wall motion abnormalities noted; left atrium mildly enlarged, right atrium moderately enlarged, RVSP of 75mmHg, consistent with severe pulmonary hypertension * titrate oxygen to maintain sats >90% * breathing treatment with bronchodilators * on IV lasix; in cumulative positive balance by 573mls * started on IV lasix. MOnitor intake and output * #Acute on chronic lower back pain with left lower leg weakness * MRI of the lumbar spine showed multilevel degenerative disc changes with severe narrowing of the left neural foramen at L4-5 due to left foraminal disc herniation impinging on the left L4 nerve root. * to follow up with spine surgery once he is clinically stable * #Acute alcohol withdrawal * now off precedex drip * monitor CIWA score * #Iron deficiency anemia * s/p transfusion of one unit of PRBC * Hb today is 8.6 * had EGD in 2020 which showed erythematous mucosa in the gastric antrum, and nonbleeding grade II varices * no colonoscopy on file * to follow up with general surgery/gastroenterology on outpatient basis * on IV pantoprazole * #Hypokalemia: K is 2.7. Will replace and monitor/. Check magnesium #Hypertension: amlodipine and metoprolol resumed due to elevated BP. #COPD: Not in exacerbation. On Symbicort. Breathing treatments as needed. #Anxiety and depression: On bupropion, Celexa and BuSpar #History of CVA with bilateral carotid stenosis: On Plavix and statin. #Debility due to chronic back pain: PT OT on board. Fall precaution. #Severe pulmonary hypertension: RVSP as per echo above is 75mmhg. To follow up with pulmonology and cardiology on outpatient basis DVT prophylaxis: SCDs Inpatient E&M: 46220 [facility] Hosp L3
[2020-06-24] MEDS: Ketorolac 30 MG/ML Syringe IV ×3 (08:11→21:18)
[2020-06-24] MEDS: Potassium Chloride 10mEq/100mL 10 MEQ/100 ML IV.SOLN. 100 MEQ IV BOLUS ×4 (08:11→11:19)
[2020-06-24] MEDS: Folic Acid 1 MG Tablet PO (08:12)
[2020-06-24] MEDS: Thiamine Hydrochloride 100 MG Tablet PO (08:12)
[2020-06-24] MEDS: Ascorbic Acid 500 MG Tablet PO ×2 (08:13→16:36)
[2020-06-24] MEDS: Metoprolol Tartrate 100 MG Tablet PO ×2 (08:13→21:14)
[2020-06-24] MEDS: guaiFENesin 1,200 MG Tablet 1200 MG PO ×2 (08:13→21:15)
[2020-06-24] MEDS: Clopidogrel Bisulfate 75 MG Tablet PO (08:14)
[2020-06-24] MEDS: amLODIPine 5 MG Tablet PO (08:14)
[2020-06-24 08:21] LABS: Magnesium 1.2 mg/dL (1.6-2.6)
--- NOTE | 2020-06-24 09:20 | CM.UR ---
Faxed clinical to [facility] ([facility]) and [facility] bed control/transfer center at this time. Brent Fabian RN, CCM.
[2020-06-24] MEDS: Acetaminophen 650 MG/20 ML UDC PO ×2 (11:22→19:52)
[2020-06-24] MEDS: Magnesium Sulfate 4gm/100mL 4 GM/100 ML IV.SOLN. IV (12:29)
[2020-06-24 17:50] LABS: Bedside Glucose 123 mg/dL (70-110)
[2020-06-24] MEDS: Atorvastatin Calcium 80 MG Tablet PO (21:15)
[2020-06-25] VITALS (13 sets, daily range): BP systolic 114–162; BP diastolic 72–87; PULSE 79–94; RESP 16–20; TEMP 36.8–37.2; O2SAT 94–97
[2020-06-25 06:50] LABS: Absolute Lymphocyte Count 0.71 X10^3/uL (0.83-4.51); Absolute Neutrophil Count 2.5 X10^3/uL (2.0-7.7); Basophil# 0.03 X10^3/uL; Basophil% 0.8 % (0-1); Eosinophil# 0.15 X10^3/uL; Eosinophils% 3.9 % (0-5); Hematocrit 29.2 % (40-54); Hemoglobin 8.7 g/dL (13.0-16.5); Lymphocyte # 0.71 X10^3/ul (4.0); Lymphocyte % 18.3 % (19-41); Mean Corp Hgb Conc 29.8 g/dL (32-36); Mean Corpuscular Hgb 26.4 pg (27.0-32.0); Mean Corpuscular Volume 88.5 fL (80-94); Mean Platelet Vol. 11.7 fl (6.2-12.0); Monocyte# 0.46 X10^3/uL; Monocyte% 11.9 % (0-10); NRBC Flagged by Analyzer 0 % (0-5); Neutrophil # 2.51 X10^3/uL (2.7-7.7); Neutrophil % 64.8 % (47-70); Platelet Count 117 K/mm3 (150-450); RBC Distribution Width CV 17.3 % (11.6-14.6); RBC Distribution Width SD 55.9 fl (35.1-43.9); White Blood Count 3.9 K/mm3 (4.4-11.0)
--- NOTE | 2020-06-25 06:58 | PN_ITS ---
Subjective: Patient did okay overnight. No acute issues were reported. Patient has been hemodynamically stable on room air. Patient is reporting chronic bilateral foot pain, but has developed left flank/back pain. Patient does continue to report a cough, especially with exertion. This is described as nonproductive. General: Alert, Oriented x3, Cooperative, - - Appears restless, but not really toxic HEENT: Atraumatic, PERRLA, EOMI, Normocephalic, - - No scleral icterus or injection noted Oral: Moist Mucosa, No Gingival or Mucosal Lesions/ Ulcerations Neck: Supple, No JVD, No Nodes, Trachea Midline Lungs: No rhonchi, No wheeze, Diminished, Rales - Cough with deep inhalation Cardiovascular: Regular rate, Regular Rhythm, Normal S1, Normal S2, No murmurs, No rub noted, No Gallop Abdomen: Bowel Sounds Present, Soft, Non Tender, Non-Distended, Obese Extremities: No clubbing, No cyanosis, No edema Skin: No rashes, No breakdown Musculoskeletal: No Tenderness to Palpation of Joints or Extremities Lymphatic: No Cervical, Supraclavicular, or Inguinal Adenopathy Neurological: Cranial nerves II-XII grossly intact, Neuro grossly intact, Motor Exam 5/5 strength throughout Psych/Mental Status: Anxious, Restless Vital Signs Temp Pulse Resp BP Pulse Ox 36.8 C 83 18 144/72 H 95 06/25/20 04:23 06/25/20 04:23 06/25/20 04:23 06/25/20 04:23 06/25/20 04:23 Oxygen Flow Rate (L/min) 1 Oxygen Delivery Method Room Air Weight: 80.5 kg Body Mass Index (BMI) 28.1 Finger Stick Blood Glucose 120 Intake and Output for Last 24 Hours 06/23/20 06/24/20 06/26/20 23:59 23:59 00:59 Intake Total 560 / 560 1420.62 / 1420.62 50 / 50 Output Total 4850 / 5025 725 / 725 Balance -4290 / -4465 695.62 / 695.62 50 / 50 Labs (Last 48 Hours) 06/24/20 06/24/20 06/24/20 04:10 04:10 04:10 WBC 3.9 L RBC 3.27 L Hgb 8.6 L Hct 28.6 L MCV 87.5 MCH 26.3 L MCHC 30.1 L RDW Std Deviation 55.5 H RDW Coeff of Donnie 17.4 H Plt Count 93 L MPV 10.9 Immature Gran % (Auto) 0.500 Neut % (Auto) 70.0 Lymph % (Auto) 15.2 L [place] % (Auto) 12.4 H Eos % (Auto) 1.6 Baso % (Auto) 0.3 Absolute Neuts (auto) 2.7 Absolute Lymphs (auto) 0.59 L Nucleated RBC % 0 Diff Path Review May foll Sodium 144 Potassium 2.7 L* Chloride 104 Carbon Dioxide 33.0 H Anion Gap 7 BUN 22 H Creatinine 1.29 Estim Creat Clear Calc 57.65 Est GFR (MDRD) Af Amer 73 Est GFR (MDRD) Non-Af 60 BUN/Creatinine Ratio 17.1 Glucose 115 H Calcium 9.0 Magnesium 1.2 L POC Glucose 06/24/20 06/25/20 06/25/20 17:45 06:25 06:25 WBC 3.9 L RBC 3.30 L Hgb 8.7 L Hct 29.2 L MCV 88.5 MCH 26.4 L MCHC 29.8 L RDW Std Deviation 55.9 H RDW Coeff of Donnie 17.3 H Plt Count 117 L MPV 11.7 Immature Gran % (Auto) 0.300 Neut % (Auto) 64.8 Lymph % (Auto) 18.3 L [place] % (Auto) 11.9 H Eos % (Auto) 3.9 Baso % (Auto) 0.8 Absolute Neuts (auto) 2.5 Absolute Lymphs (auto) 0.71 L Nucleated RBC % 0 Diff Path Review Sodium Pending Potassium Pending Chloride Pending Carbon Dioxide Pending Anion Gap Pending BUN Pending Creatinine Pending Estim Creat Clear Calc Est GFR (MDRD) Af Amer Pending Est GFR (MDRD) Non-Af Pending BUN/Creatinine Ratio Pending Glucose Pending Calcium Pending Magnesium POC Glucose 123 H Microbiology 06/20/20 02:55 Blood Culture (Wb) - Left Hand Blood Culture - Final No growth in 5 days. 06/20/20 02:55 Blood Culture (Wb) - Right Hand Blood Culture - Final No growth in 5 days. 06/20/20 02:55 Urine Catheter - Catheter Urine Culture - Preliminary Enterococcus faecalis Medical Necessity - Tobacco Use Smoking Status: Current every day smoker Tobacco Use: Cigarettes Assessment/Plan All Active Problems Back pain (Acute) Cardiopulmonary arrest with successful resuscitation (Acute) GI bleed (Resolved) Hypomagnesemia (Resolved) Hepatitis C (Ruled-out) RECOMMENDATIONS: 1. Complete a 7-day course of Augmentin 2. Walking oximetry prior to discharge 3. Continue bronchodilator and inhaled corticosteroid. 4. Continue current antihypertensive regimen. 5. Continue nicotine replacement therapy. 6. Encourage incentive spirometer use and mobilize patient as tolerated. 7. Dynamically stable on room air. Will sign off from a critical care perspective IMPRESSIONS: 1. Acute hypoxemic respiratory failure The patient was initially intubated as a consequence of a CODE BLUE and subsequent ACLS. I do suspect that his respiratory failure may have been related to polypharmacy. The patient has improved from a respiratory perspective and was able to be extubated on the morning of June 22. Follow-up chest x-ray did reveal some findings concerning for potential pneumonia. It is certainly plausible that the patient may have aspirated. Accordingly, he was placed on antimicrobials and diuresed. This morning, the patient's respiratory status is significantly improved. Recommend continuing aggressive bronchopulmonary hygiene. Patient will need a walking oximetry prior to discharge. Encourage incentive spirometer use and mobilize patient as tolerated. Patient does have findings on exam consistent with atelectasis despite room air. 2. Acute alcohol withdrawal Resolved. If the patient demonstrates any residual signs of withdrawal upon extubation, CIWA protocol can be reinitiated. 3. Acute on chronic low back pain Continue current pain control regimen and follow-up on outpatient basis. 4. Hypokalemia Electrolyte repletion as ordered. Recheck levels in the morning. 5. Chronic tobacco dependency/anemia/hypertension/anxiety/depression Complicates care, management, recovery and prognosis. Continue to monitor H&H and transfuse if hemoglobin drops below 7 g/dL. Inpatient E&M: 15430 Subs Hosp L2
[2020-06-25] MEDS: Budesonide Respules 0.5 MG/2 ML AMPUL.NEB. INHALATION ×2 (07:09→19:43)
[2020-06-25] MEDS: Ipratropium/Albuterol Sulfate 3 ML AMPUL.NEB INHALATION ×4 (07:10→19:43)
[2020-06-25 07:15] LABS: Anion Gap 7 (5-15); BUN 22 mg/dL (7-18); BUN/Creat Ratio 19.3 RATIO (10-20); Calcium,Total 8.8 mg/dL (8.5-10.1); Chloride 106 mmol/L (98-107); Creatinine, Serum 1.14 mg/dL (0.70-1.30); EST Glomerular Filtration Rate 70 mL/min (>60); Est Glom Filt Rate - Afr Amer 84 mL/min (>60); Estimated Creatinine Clearance 65.23 ml/min; Glucose 103 mg/dL (74-106); Potassium 2.9 mmol/L (3.5-5.1); Sodium Level 142 mmol/L (136-145)
[2020-06-25 07:55] LABS: Magnesium 2.1 mg/dL (1.6-2.6)
[2020-06-25] MEDS: guaiFENesin 1,200 MG Tablet 1200 MG PO ×2 (08:56→21:45)
[2020-06-25] MEDS: Folic Acid 1 MG Tablet PO (08:56)
[2020-06-25] MEDS: Metoprolol Tartrate 100 MG Tablet PO ×2 (08:56→21:45)
[2020-06-25] MEDS: Clopidogrel Bisulfate 75 MG Tablet PO (08:57)
[2020-06-25] MEDS: amLODIPine 5 MG Tablet PO (08:57)
[2020-06-25] MEDS: Ascorbic Acid 500 MG Tablet PO ×2 (08:58→16:47)
[2020-06-25] MEDS: Potassium Chloride Oral Tablet 20 MEQ 60 MEQ PO (09:07)
[2020-06-25] MEDS: Acetaminophen 650 MG/20 ML UDC PO ×3 (09:08→23:23)
[2020-06-25] MEDS: Thiamine Hydrochloride 100 MG Tablet PO (09:18)
[2020-06-25] MEDS: Potassium Chloride 10mEq/100mL 10 MEQ/100 ML IV.SOLN. 100 MEQ IV BOLUS ×4 (09:36→12:21)
--- NOTE | 2020-06-25 10:37 | PCM.PN.HOSP ---
Patient Problems: Active and Suspected Problems Back pain (Acute) Cardiopulmonary arrest with successful resuscitation (Acute) Subjective: Patient seen and examined today. He had no complaints. He is now on room air, and denied shortness of breath, cough, chest pain, palpitations, dizziness, nausea or vomiting. Review of systems is otherwise negative. Potassium is 2.9 today. Magnesium is 2.1. Vitals/I&O's: Vital Signs Temp Pulse Resp BP Pulse Ox 98.7 F 89 18 150/87 H 97 06/25/20 08:54 06/25/20 08:56 06/25/20 08:54 06/25/20 08:56 06/25/20 08:54 Oxygen Flow Rate (L/min) 1 Oxygen Delivery Method Room Air Weight: 177 lb 7.554 oz Body Mass Index (BMI) 28.1 Finger Stick Blood Glucose 120 Intake and Output for Last 24 Hours 06/23/20 06/24/20 06/26/20 23:59 23:59 00:59 Intake Total 560 / 560 1420.62 / 1420.62 296.67 / 296.67 Output Total 4850 / 5025 725 / 725 Balance -4290 / -4465 695.62 / 695.62 296.67 / 296.67 General: - -alert, calm HEENT: Atraumatic, PERRLA, EOMI, Normocephalic Oral: Dry Mucosa Neck: Supple, No JVD, Negative Carotid Bruits Lungs:diminished breath sounds bibasally, no wheezes or crackles. On room air. Cardiovascular: Regular rate, Regular Rhythm, Normal S1, Normal S2, No murmurs Abdomen: Bowel Sounds Present, Soft, Non Tender, Non-Distended, No Hepato-splenomegaly Extremities: No clubbing, No cyanosis, No edema, Capillary Refill Less than 3 Seconds Skin: No rashes, No breakdown Musculoskeletal: No Tenderness to Palpation of Joints or Extremities Lymphatic: No Cervical, Supraclavicular, or Inguinal Adenopathy Neurological: power 5/5 in all extremities; normal tone. CN II-XII intact Psych/Mental Status: normal affect Microbiology Past 72 Hours 06/20/20 02:55 Blood Culture (Wb) - Left Hand Blood Culture - Final No growth in 5 days. 06/20/20 02:55 Blood Culture (Wb) - Right Hand Blood Culture - Final No growth in 5 days. 06/20/20 02:55 Urine Catheter - Catheter Urine Culture - Preliminary Enterococcus faecalis Laboratory Results 06/24/20 17:45: POC Glucose 123 H 06/25/20 06:25: WBC 3.9 L, RBC 3.30 L, Hgb 8.7 L, Hct 29.2 L, MCV 88.5, MCH 26.4 L, MCHC 29.8 L, RDW Std Deviation 55.9 H, RDW Coeff of Donnie 17.3 H, Plt Count 117 L, MPV 11.7, Immature Gran % (Auto) 0.300, Neut % (Auto) 64.8, Lymph % (Auto) 18.3 L, Towns % (Auto) 11.9 H, Eos % (Auto) 3.9, Baso % (Auto) 0.8, Absolute Neuts (auto) 2.5, Absolute Lymphs (auto) 0.71 L, Nucleated RBC % 0 06/25/20 06:25: Sodium 142, Potassium 2.9 L, Chloride 106, Carbon Dioxide 29.0, Anion Gap 7, BUN 22 H, Creatinine 1.14, Estim Creat Clear Calc 65.23, Est GFR (MDRD) Af Amer 84, Est GFR (MDRD) Non-Af 70, BUN/Creatinine Ratio 19.3, Glucose 103, Calcium 8.8 06/25/20 06:25: Magnesium 2.1 Current Medications Acetaminophen (Acetaminophen 650 Mg/20 Ml Udc) 650 mg PO Q6H PRN PRN PRN Reason: Pain Score 1-10 Last Admin: 06/25/20 09:08 Dose: 650 mg Documented by: Al Hydroxide/Mg Hydroxide (Mag Hydrox/Al Hydrox/Simeth 30 Ml Udc) 30 ml PO Q6H PRN PRN PRN Reason: dyspesia Last Admin: 06/23/20 18:41 Dose: 30 ml Documented by: Albuterol Sulfate (Albuterol 2.5 Mg/3 Ml Vial.Neb.) 2.5 mg INHALATION Q4H PRN PRN PRN Reason: SOB &/OR WHEEZING Last Admin: 06/17/20 19:39 Dose: 2.5 mg Documented by: Albuterol/Ipratropium (Ipratropium/Albuterol Sulfate 3 Ml Ampul.Neb) 3 ml INHALATION Q4HWA.RT [place] Last Admin: 06/25/20 07:10 Dose: 3 ml Documented by: Amlodipine Besylate (Amlodipine 5 Mg Tablet) 5 mg PO DAILY [facility] Last Admin: 06/25/20 08:57 Dose: 5 mg Documented by: Ascorbic Acid (Ascorbic Acid 500 Mg Tablet) 500 mg PO BIDCM [facility] Last Admin: 06/25/20 08:58 Dose: 500 mg Documented by: Atorvastatin Calcium (Atorvastatin Calcium 80 Mg Tablet) 80 mg PO QHS [facility] Last Admin: 06/24/20 21:15 Dose: 80 mg Documented by: Bisacodyl (Bisacodyl 10 Mg Suppository) 10 mg RC DAILY PRN PRN Reason: Constipation Budesonide (Budesonide Respules 0.5 Mg/2 Ml Ampul.Neb.) 0.5 mg INHALATION Q12H.RT [facility] Last Admin: 06/25/20 07:09 Dose: 0.5 mg Documented by: Cholecalciferol (Cholecalciferol (Vit D3) 1,000 Unit (25mcg)) 2,000 unit PO DAILY [facility] Last Admin: 06/25/20 08:58 Dose: 2,000 unit Documented by: Clopidogrel Bisulfate (Clopidogrel Bisulfate 75 Mg Tablet) 75 mg PO DAILY [facility] Last Admin: 06/25/20 08:57 Dose: 75 mg Documented by: Folic Acid (Folic Acid 1 Mg Tablet) 1 mg PO DAILY@0800 [facility] Last Admin: 06/25/20 08:56 Dose: 1 mg Documented by: Guaifenesin (Guaifenesin 1,200 Mg Tablet) 1,200 mg PO BID [facility] Last Admin: 06/25/20 08:56 Dose: 1,200 mg Documented by: Sodium Chloride () 250 mls @ 15 mls/hr IV .[id number] PRN PRN Reason: Additional IVPB Infusion Pantoprazole Sodium 40 mg/ (Sodium Chloride) 110 mls @ 330 mls/hr IV Q24 [facility] Last Infusion: 06/25/20 10:21 Dose: Infused Documented by: Piperacillin Sod/Tazobactam (Sod 3.375 gm/ Sodium Chloride) 50 mls @ 12.5 mls/hr IV Q8 [facility] Last Infusion: 06/25/20 10:20 Dose: Infused Documented by: Potassium Chloride () 10 meq in 100 mls @ 100 mls/hr IV BOLUS Q1H [facility] Stop: 06/25/20 11:59 Last Admin: 06/25/20 10:28 Dose: 100 mls/hr Documented by: Ketorolac Tromethamine (Ketorolac 30 Mg/Ml Syringe) 30 mg IV Q6H PRN PRN PRN Reason: Pain 1-10 or Fever Stop: 06/27/20 11:55 Last Admin: 06/24/20 21:18 Dose: 30 mg Documented by: Labetalol HCl (Labetalol (Prefilled) 20 Mg/4 Ml) 10 mg IV Q4H PRN PRN PRN Reason: SBP> 180 Loperamide HCl (Loperamide 2 Mg Capsule) 2 mg PO Q4H PRN PRN PRN Reason: LOOSE STOOLS Metoprolol Tartrate (Metoprolol Tartrate 100 Mg Tablet) 100 mg PO BID [facility] Last Admin: 06/25/20 08:56 Dose: 100 mg Documented by: Nicotine (Nicotine 21 Mg Patch) 21 mg TD DAILY [facility] Last Admin: 06/25/20 08:57 Dose: 21 mg Documented by: Ondansetron HCl (Ondansetron 4 Mg/2 Ml Vial) 4 mg IV Q8H PRN PRN PRN Reason: NAUSEA/VOMITING Ondansetron HCl (Ondansetron 8 Mg Tablet) 8 mg PO Q8H PRN PRN PRN Reason: NAUSEA Senna (Senna Tablet) 2 tablet PO QHS PRN PRN Reason: Constipation Sodium Chloride (0.9% Saline Lock 10 Ml Syringe) 10 - 40 ml IV UD PRN PRN Reason: SALINE FLUSH Last Admin: 06/24/20 14:44 Dose: 10 ml Documented by: Thiamine HCl (Thiamine Hydrochloride 100 Mg Tablet) 100 mg PO DAILYCM [facility] Last Admin: 06/25/20 09:18 Dose: 100 mg Documented by: STROKE Vital Signs/Narrative: Vital Signs Temp Pulse Resp BP Pulse Ox 06/25/20 08:56 89 150/87 H 06/25/20 08:54 98.7 F 89 18 150/87 H 97 06/25/20 07:09 89 20 H 95 Medical Necessity - Tobacco Use Smoking Status: Current every day smoker Tobacco Use: Cigarettes Assessment/Plan All Active Problems Back pain (Acute) Cardiopulmonary arrest with successful resuscitation (Acute) GI bleed (Resolved) Hypomagnesemia (Resolved) Hepatitis C (Ruled-out) #Acute respiratory failure now on room air. 2D echo showed EF of 75%, with hyperdynamic LV and no regional wall motion abnormalities noted; left atrium mildly enlarged, right atrium moderately enlarged, RVSP of 75mmHg, consistent with severe pulmonary hypertension titrate oxygen to maintain sats >90% breathing treatment with bronchodilators #Acute on chronic lower back pain with left lower leg weakness MRI of the lumbar spine showed multilevel degenerative disc changes with severe narrowing of the left neural foramen at L4-5 due to left foraminal disc herniation impinging on the left L4 nerve root. patient says his back pain remains the same. Will consult paini management for a pain shot. to follow up with spine surgery on outpatient basis #Acute alcohol withdrawal stable. Was on precedex drip but now off it. #Iron deficiency anemia s/p transfusion of one unit of PRBC Hb today is 8.7 had EGD in 2019 which showed erythematous mucosa in the gastric antrum, and nonbleeding grade II varices no colonoscopy on file to follow up with general surgery/gastroenterology on outpatient basis on IV pantoprazole; will switch to PO pantoprazole now #Hypokalemia and hypomagnesemia: K is 2.9 today. WIll monitor. Magnesium is 2.1 Will replace and monitor/. Check magnesium #Hypertension: on amlodipine and metoprolol #COPD: Not in exacerbation. On Symbicort. Breathing treatments as needed. #Anxiety and depression: On bupropion, Celexa and BuSpar #History of CVA with bilateral carotid stenosis: On Plavix and statin. #Debility due to chronic back pain: PT OT on board. Fall precaution. #Severe pulmonary hypertension: RVSP as per echo above is 75mmhg. To follow up with pulmonology and cardiology on outpatient basis DVT prophylaxis: SCDs Inpatient E&M: 27715 Subs Hosp L2
[2020-06-25] MEDS: Ketorolac 30 MG/ML Syringe IV ×2 (11:20→20:06)
[2020-06-25] MEDS: Atorvastatin Calcium 80 MG Tablet PO (21:45)
[2020-06-25 22:26] LABS: Bedside Glucose 90 mg/dL (70-110)
[2020-06-26] VITALS (8 sets, daily range): BP systolic 142–167; BP diastolic 69–91; PULSE 83–92; RESP 16–20; TEMP 36.7–36.9; O2SAT 95–97
[2020-06-26 06:01] LABS: Absolute Lymphocyte Count 0.92 X10^3/uL (0.83-4.51); Absolute Neutrophil Count 2.9 X10^3/uL (2.0-7.7); Basophil# 0.03 X10^3/uL; Basophil% 0.7 % (0-1); Eosinophil# 0.16 X10^3/uL; Eosinophils% 3.6 % (0-5); Hematocrit 29.8 % (40-54); Hemoglobin 8.8 g/dL (13.0-16.5); Lymphocyte # 0.92 X10^3/ul (4.0); Lymphocyte % 20.8 % (19-41); Mean Corp Hgb Conc 29.5 g/dL (32-36); Mean Corpuscular Hgb 26.3 pg (27.0-32.0); Mean Platelet Vol. 10.5 fl (6.2-12.0); Monocyte# 0.44 X10^3/uL; Monocyte% 9.9 % (0-10); NRBC Flagged by Analyzer 0 % (0-5); Neutrophil # 2.86 X10^3/uL (2.7-7.7); Neutrophil % 64.5 % (47-70); Platelet Count 114 K/mm3 (150-450); RBC Distribution Width CV 17.2 % (11.6-14.6); RBC Distribution Width SD 55.6 fl (35.1-43.9); Red Blood Count 3.35 M/mm3 (4.6-6.2); White Blood Count 4.4 K/mm3 (4.4-11.0)
[2020-06-26 06:51] LABS: Bedside Glucose 98 mg/dL (70-110)
[2020-06-26] MEDS: Ipratropium/Albuterol Sulfate 3 ML AMPUL.NEB INHALATION ×2 (06:53→10:43)
[2020-06-26] MEDS: Budesonide Respules 0.5 MG/2 ML AMPUL.NEB. INHALATION (06:53)
[2020-06-26] MEDS: Ascorbic Acid 500 MG Tablet PO (08:29)
[2020-06-26] MEDS: Folic Acid 1 MG Tablet PO (08:29)
[2020-06-26] MEDS: Metoprolol Tartrate 100 MG Tablet PO (08:29)
[2020-06-26] MEDS: guaiFENesin 1,200 MG Tablet 1200 MG PO (08:29)
[2020-06-26] MEDS: Thiamine Hydrochloride 100 MG Tablet PO (08:29)
[2020-06-26] MEDS: Pantoprazole Sodium 40 MG Tablet PO (08:30)
[2020-06-26] MEDS: Clopidogrel Bisulfate 75 MG Tablet PO (08:30)
[2020-06-26] MEDS: amLODIPine 5 MG Tablet PO (08:30)
[2020-06-26] MEDS: Ketorolac 30 MG/ML Syringe IV (08:37)
[2020-06-26] MEDS: Acetaminophen 650 MG/20 ML UDC PO (08:37)
--- NOTE | 2020-06-26 10:29 | DCINST_ITS ---
- Discharge Diagnoses Current Active Problems: Current Active and Chronic Problems Back pain (Acute) Chronic anemia (Chronic) Cardiopulmonary arrest with successful resuscitation (Acute) Alcohol abuse (Chronic) Depression (Chronic) COPD (chronic obstructive pulmonary disease) (Chronic) GERD (gastroesophageal reflux disease) (Chronic) HTN (hypertension) (Chronic) You will use the following diet at home:: Cardiac Your food should be the consistency of: Regular Discharge Activity: Return to Normal Activity Weight Bearing Status: Weight bearing as tolerated Call your doctor if you observe: Fever of 101 or Higher, Shortness of breath, Dizziness, Fainting spells, Chest pain, Increased palpitations (irregular heartbeat), Uncontrolled pain Instructions: Recovering from Addiction: Coping with Relapse, Recovering from Addiction: Continuing with Counseling Allergies/Adverse Reactions: Allergies lisinopril Allergy (Severe, Verified 06/17/20 06:29) Angioedema bee venom protein (honey bee) Allergy (Verified 06/17/20 06:29) Swelling Medications to take at Discharge Clopidogrel Bisulfate [Plavix] 75 mg PO DAILY 09/10/16 Folic Acid 1 mg PO DAILY@0800 09/10/16 Budesonide/Formoterol Fumarate [Symbicort 160-4.5 Mcg Inhaler] 2 puff IH BID 04/25/19 Cholecalciferol (VIT D3) [Vitamin D3] 2,000 unit PO DAILY 04/25/19 Metoprolol Tartrate [Lopressor (beta ran)] 100 mg PO BID 05/25/19 Acetaminophen [Tylenol Tablet] 650 mg PO Q6H PRN PRN tab 06/05/19 Amlodipine [Norvasc] 5 mg PO DAILY 06/05/19 Atorvastatin Calcium [Lipitor] 80 mg PO QHS 06/05/19 Albuterol Inhaler [Ventolin Hfa] 2 puff INHALATION Q4H PRN PRN #1 inhaler 06/16/19 Ascorbic Acid [Vitamin C] 500 mg PO BIDCM #60 tab 06/16/19 Citalopram [Celexa] 20 mg PO DAILY #30 tab 06/16/19 Magnesium Oxide [Mag-Ox 400] 400 mg PO BIDCM #60 tab 06/16/19 Pantoprazole Sodium [Protonix] 20 mg PO BID tab 06/16/19 Thiamine Hydrochloride [Vitamin B1] 100 mg PO DAILYCM #30 tab 06/16/19 buPROPion XL [Wellbutrin Xl] 150 mg PO DAILY #30 tablet.xl 06/16/19 busPIRone [Buspar] 20 mg PO BID 11/03/19 Gabapentin [Neurontin] 300 mg PO Q8H PRN PRN 7 Days #21 cap 06/13/20 Lidocaine [Lidoderm Patch] 1 patch TOPICAL DAILY 10 Days #10 patch 06/13/20 Nicotine [Nicoderm Cq] 21 mg TD DAILY 30 Days #30 patch 06/13/20 Tizanidine HCl 4 mg PO QHS PRN 06/18/20 Amox/Clavulanate Tablet [Augmentin Tablet] 875 mg PO Q12H #8 tab 06/26/20 MethylPREDNISolone DosePak [Medrol DosePak] 4 mg PO UD #1 box 06/26/20 The following prescriptions were given: Amox/Clavulanate Tablet [Augmentin Tablet] 875 mg PO Q12H #8 tab Transmission Status: Pending to [facility] MethylPREDNISolone DosePak [Medrol DosePak] 4 mg PO UD #1 box Transmission Status: Pending to [facility] Primary Care Physician: [facility] [Primary Care Provider] - Please follow up with your Primary Care Physician in: 2 weeks. Test Results: Test results from this visit will be discussed in further detail at your follow- up appointment, if applicable. Please Follow Up With: Mary aMres MD When: 1 week.
--- NOTE | 2020-06-26 11:55 | CASEMGMT ---
Pt is ready for discharge today, as per physician wants to go home. SW met w/pt in room, confirmed his plan is to go home. Pt is open to home care, and would like a rolling walker. Pt declined any resources for substance abuse. SW provided a list of home care providers to pt that includes quality and resource use data and is consistent with the pt's preferred geographic area, medical needs, and insurance. Pt would like [facility]. MALIA let CM know, she will work on home health and on getting walker for pt. Pt states has not gotten a walker through insurance in the past. No further social service needs anticipated, SW remains available for any additional needs. ASIF Weir
--- NOTE | 2020-06-26 11:56 | PHA.DC.MC ---
Pharmacy Service has performed discharge medication reconciliation and counseling for this patient. 1. AUGMENTIN 875MG PO BID X 4 DAYS 2. METHYLPREDNISOLONE DOSE PACK The patient's discharge medication list was reviewed for discrepancies and discrepancies were resolved. Home Medications Clopidogrel Bisulfate [Plavix] 75 mg PO DAILY 09/10/16 Folic Acid 1 mg PO DAILY@0800 09/10/16 Budesonide/Formoterol Fumarate [Symbicort 160-4.5 Mcg Inhaler] 2 puff IH BID 04/25/19 Cholecalciferol (VIT D3) [Vitamin D3] 2,000 unit PO DAILY 04/25/19 Metoprolol Tartrate [Lopressor (beta ran)] 100 mg PO BID 05/25/19 Acetaminophen [Tylenol Tablet] 650 mg PO Q6H PRN PRN tab 06/05/19 Amlodipine [Norvasc] 5 mg PO DAILY 06/05/19 Atorvastatin Calcium [Lipitor] 80 mg PO QHS 06/05/19 Albuterol Inhaler [Ventolin Hfa] 2 puff INHALATION Q4H PRN PRN #1 inhaler 06/16/19 Ascorbic Acid [Vitamin C] 500 mg PO BIDCM #60 tab 06/16/19 Citalopram [Celexa] 20 mg PO DAILY #30 tab 06/16/19 Magnesium Oxide [Mag-Ox 400] 400 mg PO BIDCM #60 tab 06/16/19 Pantoprazole Sodium [Protonix] 20 mg PO BID tab 06/16/19 Thiamine Hydrochloride [Vitamin B1] 100 mg PO DAILYCM #30 tab 06/16/19 buPROPion XL [Wellbutrin Xl] 150 mg PO DAILY #30 tablet.xl 06/16/19 busPIRone [Buspar] 20 mg PO BID 11/03/19 Gabapentin [Neurontin] 300 mg PO Q8H PRN PRN 7 Days #21 cap 06/13/20 Lidocaine [Lidoderm Patch] 1 patch TOPICAL DAILY 10 Days #10 patch 06/13/20 Nicotine [Nicoderm Cq] 21 mg TD DAILY 30 Days #30 patch 06/13/20 Tizanidine HCl 4 mg PO QHS PRN 06/18/20 Amox/Clavulanate Tablet [Augmentin Tablet] 875 mg PO Q12H #8 tab 06/26/20 MethylPREDNISolone DosePak [Medrol DosePak] 4 mg PO UD #1 box 06/26/20 The patient was counseled on the following discharge medications and changes in medications for homegoing were reviewed. The Reason for Use, instructions for use, and potential side effects were reviewed for all new medications. The patient's questions regarding all of their medications were answered. The patient was able to verbally demonstrate an understanding of their discharge medications.
--- NOTE | 2020-06-26 12:01 | PCM.DC.SUM ---
Discharge Date and Diagnosis - Problem List Patient Problems: Active and Suspected Problems Back pain (Acute) Cardiopulmonary arrest with successful resuscitation (Acute) Date of Admission: 06/17/20 Date of Discharge: 06/26/20 - Primary Discharge Diagnosis Acute Problems: Active Problems #1 acute cardiopulmonary arrest, status post CPR. #2 acute respiratory failure. #3 acute alcohol withdrawal. #4 acute on chronic low back pain. #5 acute on chronic anemia. #6 hypokalemia. 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 Abdullahi. Esophageal varices due to chronic alcohol dependence and chronic liver disease. Anxiety (Chronic) Pancreatitis (Chronic) Stroke (Chronic) Alcohol abuse (Chronic) Depression (Chronic) COPD (chronic obstructive pulmonary disease) (Chronic) Hyperlipemia (Chronic) GERD (gastroesophageal reflux disease) (Chronic) HTN (hypertension) (Chronic) Colonic polyp (Chronic) Colon, diverticulosis (Chronic) Nicotine addiction (Chronic) RENETTA (obstructive sleep apnea) (Chronic) non-compliant with PAP Carotid stenosis (Chronic) has had a R CEA Hospital Course and Treatment Imaging Results: Clinical Impression(s) from Imaging Studies Lumbar Spine MRI 06/19/20 09:00 IMPRESSION: Multilevel degenerative changes, as described above. Severe narrowing of left neural foramen at L4-5 due to left foraminal disc herniation impinging on the left L4 nerve root. Electronically Signed: Yary Kamara MD at 11:52 EST Tel , Service support , Chest X-Ray 06/20/20 00:21 IMPRESSION: Placement of endotracheal tube and nasogastric tube. Cardiomegaly. Mild pulmonary vascular congestion. No focal consolidation identified. Otherwise no significant interval change in appearance of the chest. Electronically Signed: Andrey Roa MD at 1:46 EST Tel , Service support , Chest X-Ray 06/22/20 23:26 IMPRESSION: Stable cardiomegaly. Component of COPD, accentuation of bronchovascular markings suspected. Minimal residual opacification/airspace disease possibly in the right perihilar parenchyma could represent an inflammatory process. Electronically Signed: No Vernon MD at 0:37 EST , Service support , Chest X-Ray 06/23/20 08:35 IMPRESSION: 1. Unfavorable change. Developing multilobar atelectasis versus infiltrates (edema versus pneumonia). 2. Extubation. Electronically Signed: Ronen Moseley MD (Brooks) at 8:52 EST , Service support , Dr. Thomas, critical care. Operations: None Procedures: Blood transfusion, CPR performed, EKG, Intubation Summary of Care Provided: Patient seen and examined on the day of discharge and appeared to be stable to be discharged home. He stated that his back pain still there but has been improving. His vital assessment stable and he remained on room air. The patient is a 59 year old M presented to the emergency room because of difficulty ambulating, back pain and bilateral leg weakness because of the pain. This patient had a history of chronic back pain and chronic left hip pain that has been going on for several months. He had a history of alcohol abuse with frequent admissions for intoxication and withdrawal and patient continued to drink. He was admitted for back pain and acute alcohol withdrawal. He was started on alcohol withdrawal protocol and pain medication for pain control. On the third day post admission, patient had cardiopulmonary arrest with asystole, received CPR which was successful and patient was intubated and started on mechanical ventilation for acute respiratory failure. It was suspected that his respiratory arrest is due to polypharmacy in addition to acute alcohol withdrawal. Chest x-ray did not show clear evidence of consolidation or infiltrate to suggest pneumonia but there was atelectasis and the patient was started on IV Zosyn empirically. Patient stayed in the ICU on mechanical ventilation and sedation for acute alcohol withdrawal as well. He stayed 2 days on mechanical ventilation and then extubated. Post extubation, respiratory status stabilized and we were able to wean him down to room air and his oxygen has been fine. His other vital signs were stable. He had no other significant symptoms of alcohol withdrawal after extubation. He had MRI lumbar spine done that showed multilevel degenerative changes, severe narrowing of the left neural foramen at L4-L5 due to left femoral disc herniation impinging on left L4 nerve root. Dr. Mares was consulted and recommended to start patient on Medrol Dosepak along with pain control and plan to follow-up with him as outpatient. Assessment stable, remains afebrile and he remained on room air. He was found to have acute on chronic anemia, received 1 unit of packed RBCs and discharge hemoglobin was 8.8 g/dL. There was no evidence of active bleeding. His potassium was low which was replaced and corrected by protocol. Patient discharged home in a stable medical condition, discharged on Augmentin to complete 7 days of treatment for questionable pneumonia, discharged on Medrol Dosepak, continued on his previous home medications without any changes, plan to follow-up with Dr. Mares in 1 week, follow-up with PCP in 2 week. Patient Problems: Active and Suspected Problems Back pain (Acute) Cardiopulmonary arrest with successful resuscitation (Acute) - Physical Exam Vitals/I&O's: Vital Signs Temp Pulse Resp BP Pulse Ox 98.5 F 87 18 148/91 H 97 06/26/20 11:07 06/26/20 11:07 06/26/20 11:07 06/26/20 11:07 06/26/20 11:07 Oxygen Flow Rate (L/min) 1 Oxygen Delivery Method Room Air Weight: 178 lb 9.191 oz Body Mass Index (BMI) 28.1 Finger Stick Blood Glucose 120 Intake and Output for Last 24 Hours 06/24/20 06/25/20 06/26/20 22:59 23:59 23:59 Intake Total 400 / 400 Output Total Balance 400 / 400 General: Alert, Oriented x3, Cooperative, No apparent distress HEENT: Atraumatic, PERRLA, EOMI, Normocephalic Oral: Moist Mucosa, No Gingival or Mucosal Lesions/ Ulcerations Neck: Supple, No JVD, Negative Carotid Bruits, Trachea Midline, Thyroid Normal Size and Texture Lungs: Clear to auscultation, No rhonchi, No wheeze, No rales, Diminished Cardiovascular: Regular rate, Regular Rhythm, Normal S1, Normal S2, PMI Normal Abdomen: Bowel Sounds Present, Soft, Non Tender, Non-Distended, No Hepato-splenomegaly Extremities: No clubbing, No cyanosis, No edema Skin: No rashes, No breakdown Lymphatic: No Cervical, Supraclavicular, or Inguinal Adenopathy Neurological: Cranial nerves II-XII grossly intact, Neuro grossly intact Psych/Mental Status: Normal Affect, Appropriate Microbiology Past 72 Hours 06/20/20 02:55 Blood Culture (Wb) - Left Hand Blood Culture - Final No growth in 5 days. 06/20/20 02:55 Blood Culture (Wb) - Right Hand Blood Culture - Final No growth in 5 days. 06/20/20 02:55 Urine Catheter - Catheter Urine Culture - Preliminary Enterococcus faecalis Laboratory Results 06/25/20 21:52: POC Glucose 90 06/26/20 05:26: WBC 4.4, RBC 3.35 L, Hgb 8.8 L, Hct 29.8 L, MCV 89.0, MCH 26.3 L, MCHC 29.5 L, RDW Std Deviation 55.6 H, RDW Coeff of Donnie 17.2 H, Plt Count 114 L, MPV 10.5, Immature Gran % (Auto) 0.500, Neut % (Auto) 64.5, Lymph % (Auto) 20.8, Bollinger % (Auto) 9.9, Eos % (Auto) 3.6, Baso % (Auto) 0.7, Absolute Neuts (auto) 2.9, Absolute Lymphs (auto) 0.92, Nucleated RBC % 0 06/26/20 06:46: POC Glucose 98 Current Medications Acetaminophen (Acetaminophen 650 Mg/20 Ml Udc) 650 mg PO Q6H PRN PRN PRN Reason: Pain Score 1-10 Last Admin: 06/26/20 08:37 Dose: 650 mg Documented by: Al Hydroxide/Mg Hydroxide (Mag Hydrox/Al Hydrox/Simeth 30 Ml Udc) 30 ml PO Q6H PRN PRN PRN Reason: dyspesia Last Admin: 06/23/20 18:41 Dose: 30 ml Documented by: Albuterol Sulfate (Albuterol 2.5 Mg/3 Ml Vial.Neb.) 2.5 mg INHALATION Q4H PRN PRN PRN Reason: SOB &/OR WHEEZING Last Admin: 06/17/20 19:39 Dose: 2.5 mg Documented by: Albuterol/Ipratropium (Ipratropium/Albuterol Sulfate 3 Ml Ampul.Neb) 3 ml INHALATION Q4HWA.RT [facility] Last Admin: 06/26/20 10:43 Dose: 3 ml Documented by: Amlodipine Besylate (Amlodipine 5 Mg Tablet) 5 mg PO DAILY [facility] Last Admin: 06/26/20 08:30 Dose: 5 mg Documented by: Ascorbic Acid (Ascorbic Acid 500 Mg Tablet) 500 mg PO BIDCM [facility] Last Admin: 06/26/20 08:29 Dose: 500 mg Documented by: Atorvastatin Calcium (Atorvastatin Calcium 80 Mg Tablet) 80 mg PO QHS [facility] Last Admin: 06/25/20 21:45 Dose: 80 mg Documented by: Bisacodyl (Bisacodyl 10 Mg Suppository) 10 mg RC DAILY PRN PRN Reason: Constipation Budesonide (Budesonide Respules 0.5 Mg/2 Ml Ampul.Neb.) 0.5 mg INHALATION Q12H.RT [facility] Last Admin: 06/26/20 06:53 Dose: 0.5 mg Documented by: Cholecalciferol (Cholecalciferol (Vit D3) 1,000 Unit (25mcg)) 2,000 unit PO DAILY [facility] Last Admin: 06/26/20 08:30 Dose: 2,000 unit Documented by: Clopidogrel Bisulfate (Clopidogrel Bisulfate 75 Mg Tablet) 75 mg PO DAILY [facility] Last Admin: 06/26/20 08:30 Dose: 75 mg Documented by: Folic Acid (Folic Acid 1 Mg Tablet) 1 mg PO DAILY@0800 [facility] Last Admin: 06/26/20 08:29 Dose: 1 mg Documented by: Guaifenesin (Guaifenesin 1,200 Mg Tablet) 1,200 mg PO BID [facility] Last Admin: 06/26/20 08:29 Dose: 1,200 mg Documented by: Sodium Chloride () 250 mls @ 15 mls/hr IV .[id number] PRN PRN Reason: Additional IVPB Infusion Piperacillin Sod/Tazobactam (Sod 3.375 gm/ Sodium Chloride) 50 mls @ 12.5 mls/hr IV Q8 [facility] Last Infusion: 06/26/20 11:14 Dose: Infused Documented by: Ketorolac Tromethamine (Ketorolac 30 Mg/Ml Syringe) 30 mg IV Q6H PRN PRN PRN Reason: Pain 1-10 or Fever Stop: 06/27/20 11:55 Last Admin: 06/26/20 08:37 Dose: 30 mg Documented by: Labetalol HCl (Labetalol (Prefilled) 20 Mg/4 Ml) 10 mg IV Q4H PRN PRN PRN Reason: SBP> 180 Loperamide HCl (Loperamide 2 Mg Capsule) 2 mg PO Q4H PRN PRN PRN Reason: LOOSE STOOLS Metoprolol Tartrate (Metoprolol Tartrate 100 Mg Tablet) 100 mg PO BID [facility] Last Admin: 06/26/20 08:29 Dose: 100 mg Documented by: Nicotine (Nicotine 21 Mg Patch) 21 mg TD DAILY [facility] Last Admin: 06/26/20 08:30 Dose: 21 mg Documented by: Ondansetron HCl (Ondansetron 4 Mg/2 Ml Vial) 4 mg IV Q8H PRN PRN PRN Reason: NAUSEA/VOMITING Ondansetron HCl (Ondansetron 8 Mg Tablet) 8 mg PO Q8H PRN PRN PRN Reason: NAUSEA Pantoprazole Sodium (Pantoprazole Sodium 40 Mg Tablet) 40 mg PO DAILY [facility] Last Admin: 06/26/20 08:30 Dose: 40 mg Documented by: Senna (Senna Tablet) 2 tablet PO QHS PRN PRN Reason: Constipation Sodium Chloride (0.9% Saline Lock 10 Ml Syringe) 10 - 40 ml IV UD PRN PRN Reason: SALINE FLUSH Last Admin: 06/24/20 14:44 Dose: 10 ml Documented by: Thiamine HCl ([facility]amine Hydrochloride 100 Mg Tablet) [facility] Last Admin: 06/26/20 08:29 Dose: 100 mg Documented by: Discharge Activity: Return to Normal Activity Weight Bearing Status: Weight bearing as tolerated Call your doctor if you observe: Fever of 101 or Higher, Shortness of breath, Dizziness, Fainting spells, Chest pain, Increased palpitations (irregular heartbeat), Uncontrolled pain Home Medications: Medications to take at Discharge Clopidogrel Bisulfate [Plavix] 75 mg PO DAILY 09/10/16 Folic Acid 1 mg PO DAILY@0800 09/10/16 Budesonide/Formoterol Fumarate [Symbicort 160-4.5 Mcg Inhaler] 2 puff IH BID 04/25/19 Cholecalciferol (VIT D3) [Vitamin D3] 2,000 unit PO DAILY 04/25/19 Metoprolol Tartrate [Lopressor (beta ran)] 100 mg PO BID 05/25/19 Acetaminophen [Tylenol Tablet] 650 mg PO Q6H PRN PRN tab 06/05/19 Amlodipine [Norvasc] 5 mg PO DAILY 06/05/19 Atorvastatin Calcium [Lipitor] 80 mg PO QHS 06/05/19 Albuterol Inhaler [Ventolin Hfa] 2 puff INHALATION Q4H PRN PRN #1 inhaler 06/16/19 Ascorbic Acid [Vitamin C] 500 mg PO BIDCM #60 tab 06/16/19 Citalopram [Celexa] 20 mg PO DAILY #30 tab 06/16/19 Magnesium Oxide [Mag-Ox 400] 400 mg PO BIDCM #60 tab 06/16/19 Pantoprazole Sodium [Protonix] 20 mg PO BID tab 06/16/19 Thiamine Hydrochloride [Vitamin B1] 100 mg PO DAILYCM #30 tab 06/16/19 buPROPion XL [Wellbutrin Xl] 150 mg PO DAILY #30 tablet.xl 06/16/19 busPIRone [Buspar] 20 mg PO BID 11/03/19 Nicotine [Nicoderm Cq] 21 mg TD DAILY 30 Days #30 patch 06/13/20 Tizanidine HCl 4 mg PO QHS PRN 06/18/20 Amox/Clavulanate Tablet [Augmentin Tablet] 875 mg PO Q12H #8 tab 06/26/20 MethylPREDNISolone DosePak [Medrol DosePak] 4 mg PO UD #1 box 06/26/20 Following Prescriptions Were Given to Patient: Amox/Clavulanate Tablet [Augmentin Tablet] 875 mg PO Q12H #8 tab Transmission Status: Received by [facility] MethylPREDNISolone DosePak [Medrol DosePak] 4 mg PO UD #1 box Transmission Status: Received by [facility] [[facility] - Please follow up with your Primary Care Physician in: 2 weeks. Please Follow Up With: Mary Mares MD When: 1 week. [facility] Patient Instructions: Recovering from Addiction: Continuing with Counseling, Recovering from Addiction: Coping with Relapse Disposition: Home Minutes spent on discharge:: 32 Patient Condition:: Stable Medical Necessity - Tobacco Use Smoking Status: Current every day smoker Tobacco Use: Cigarettes Meaningful Use Info Meaningful Use Diagnoses (Choose all that apply): None applicable Inpatient E&M: 77349 Disch Hosp
--- NOTE | 2020-06-26 12:03 | CASEMGMT ---
Per Malcolm FINLEY, pt would like to go home with HHC and [facility] at this time and pt states would like [facility] and no preference for DME company but would like [facility] delivered prior to discharge. Script faxed to [facility] [place] [facility] as they will deliver prior to discharge and call to Soraida at [facility] as pt would like PT/OT/aide. Per Soraida, they can take pt at this time and will do start of care on 06/28/20. Eli at [facility] [place] updated on [facility] script and states they will be over with a WW trent. Pt updated on all at this time, voices understanding and voices no further questions/concerns/needs. Ramon VALENZUELA CM
[2020-06-26 12:17] LABS: Pathologist Review Reviewed
--- NOTE | 2020-06-27 13:20 | CASEMGMT ---
BIANCA GALLARDO Discharge Follow Up Phone Call: MELONY: Burt Strata: 3 Call Date: 06/27/20 Discharge Date: 06/26/20 Time of Call:[id number] Duration: 2 min Admitting Diagnosis: Acute back pain BIANCA GALLARDO completed FU tc after recent hospitalization. Pt states he is doing well. His pain is the same. He reports he sees Dr. Mares on Friday and has a FU tc with his PCP this Friday. Pt has picked up his prescriptions. He denies questions regarding dc instructions.
== END 2020-06-26 14:57 | disposition home or self-care (01) | DRG 551 ==
LOC: ED 07:20 → MS3 06-18 21:29 → ICU 06-20 00:48 → PCU 06-24 15:35
PROVIDERS: Internal Medicine; Internal Medicine Critical Care Medicine; Student in an Organized Health Care Education/Training Program; Admitting Provider Internal Medicine; Emergency Provider Emergency Medicine; Visit Provider Hospitalist
DX: M54.42 Lumbago with sciatica, left side (principal); I46.9 Cardiac arrest, cause unspecified; J96.01 Acute respiratory failure with hypoxia; F10.239 Alcohol dependence with withdrawal, unspecified; J98.11 Atelectasis; F32.9 Major depressive disorder, single episode, unspecified; G89.29 Other chronic pain; I65.23 Occlusion and stenosis of bilateral carotid arteries; Y90.2 Blood alcohol level of 40-59 mg/100 ml; I34.0 Nonrheumatic mitral (valve) insufficiency; D50.9 Iron deficiency anemia, unspecified; J44.9 Chronic obstructive pulmonary disease, unspecified; K21.9 Gastro-esophageal reflux disease without esophagitis; I27.20 Pulmonary hypertension, unspecified; I10 Essential (primary) hypertension; F40.00 Agoraphobia, unspecified; F17.210 Nicotine dependence, cigarettes, uncomplicated; Z79.02 Long term (current) use of antithrombotics/antiplatelets; Z86.73 Personal history of transient ischemic attack (TIA), and cerebral infarction without residual deficits; Z79.899 Other long term (current) drug therapy; M51.36 Other intervertebral disc degeneration, lumbar region; M51.26 Other intervertebral disc displacement, lumbar region; E87.6 Hypokalemia; E87.70 Fluid overload, unspecified; I95.9 Hypotension, unspecified; D69.6 Thrombocytopenia, unspecified; G47.33 Obstructive sleep apnea (adult) (pediatric); E78.5 Hyperlipidemia, unspecified; E83.42 Hypomagnesemia; Z79.51 Long term (current) use of inhaled steroids; Z82.49 Family history of ischemic heart disease and other diseases of the circulatory system; Z87.19 Personal history of other diseases of the digestive system; Z91.19 Patient's noncompliance with other medical treatment and regimen; K74.60 Unspecified cirrhosis of liver
CPT/HCPCS: 31500; 31720; 36415; 36600; 71045; 72158; 80048; 80053; 80076; 81001; 82077; 82550; 82607; 82728; 82746; 82803; 82962; 83540; 83550; 83735; 83880; 84100; 84478; 84484; 85014; 85018; 85025; 86850; 86900; 86901; 86920; 86922; 87040; 87077; 87086; 87088; 87186; 92507; 92523; 92526; 92610; 92950; 93005; 93306; 94002; 94003; 94640; 94660; 94667; 94668; 97110; 97162; 97165; 97530; 97535; 97802; 97803; 99251; 99285; 99406; A9575; J7030; J7050; J7120; P9016; Q9957; A4216; G0463; J1940; J2916; J3010

== ENCOUNTER → 2020-09-20 10:54 | Outpatient (CLI) | payer MEDICARE, MEDICAID, SELFPAY ==
[2020-06-20 09:44] VITALS: BMI 28.1
[2020-09-20 11:47] LABS: Amphetamine Urine VISTA NEGATIVE (<1000 ng/mL); Barbiturate Urine VISTA NEGATIVE (< 200 ng/mL); Benzodiazepine Urine VISTA NEGATIVE (< 200 ng/mL); Cocaine Urine VISTA NEGATIVE (< 300 ng/mL); Ecstacy Urine VISTA NEGATIVE (< 500 ng/mL); Methadone Urine VISTA NEGATIVE (< 300 ng/mL); PCP Urine VISTA NEGATIVE (< 25 ng/mL); THC Urine VISTA NEGATIVE (< 50 ng/mL); Vista UDS pH Range 6
== END ==
PROVIDERS: Referring Provider Anesthesiology Pain Medicine; Visit Provider Anesthesiology Pain Medicine
DX: F11.20 Opioid dependence, uncomplicated (principal)
CPT/HCPCS: 80307

== ENCOUNTER 2020-10-06 13:16 | Emergency (ER) | payer OTHER, MEDICARE, MEDICAID, SELFPAY ==
[2020-06-20 09:44] VITALS: BMI 28.1
[2020-10-06 13:18] VITALS: BP 83/41; PULSE 90; RESP 18; TEMP 36.8; O2SAT 97; BMI 28.0
[2020-10-06 13:31] VITALS: BP 103/54
[2020-10-06 13:58] VITALS: BP 117/54; PULSE 91; RESP 18; O2SAT 97
[2020-10-06] MEDS: Morphine 4 MG/ML Syringe IV (14:00)
--- NOTE | 2020-10-06 14:07 | ED.VIS.BACK ---
HPI History of Present Illness Chief Complaint: Back Informant: patient Onset/Context/Timing Onset: Yesterday Injury: twisting Narrative Narrative: Patient is a 60-year-old male with history of chronic back pain, and pain management with Dr. Perez, presenting with acute exacerbation of his back pain. Patient states it started yesterday when he was scooping of the litter box. He was twisting when suddenly had severe worsening pain in his lower back. He is been having a hard time getting around images pain since then. The pain radiates down his entire left leg. He denies associated numbness or tingling. He states he normally has pain in his buttocks and in his leg but it is usually not as bad in his back and it usually does not radiate all the way down his leg. He took hydrocodone as well as a muscle relaxer at home with no relief of his pain. He came to the emergency room via EMS for further evaluation. Patient notes he lives home independently. He denies any associated incontinence. He denies any lightheadedness or feel like he is going to pass out. He denies any fever or chills. Prior similar symptoms: Yes and With Prior Back Pain [facility] Medical History Afib Ankle fracture, left Ankle fracture, right CAD (coronary artery disease) COPD (chronic obstructive pulmonary disease) Diverticulosis Esophageal varices GERD (gastroesophageal reflux disease) Heart attack Hepatitis C High cholesterol HTN (hypertension) Hx of pancreatitis Kidney failure Liver failure Stroke Home Medications clopidogrel 75 mg PO DAILY 09/10/16 [History Last Taken 09/10/16 08:00] folic acid 1 mg PO DAILY@0800 09/10/16 [History Last Taken 05/24/19] budesonide-formoterol 2 puff IH BID 04/25/19 [History Last Taken 05/25/19] cholecalciferol (vitamin D3) 2,000 unit PO DAILY 04/25/19 [History Last Taken Unknown] metoprolol tartrate 100 mg PO BID 05/25/19 [History Last Taken 05/25/19] acetaminophen 650 mg PO Q6H PRN PRN tab 06/05/19 [Rx Last Taken Unknown] amlodipine 5 mg PO DAILY 06/05/19 [History Last Taken Unknown] atorvastatin 80 mg PO QHS 06/05/19 [History Last Taken Unknown] albuterol sulfate 2 puff INHALATION Q4H PRN PRN #1 inhaler 06/16/19 [Rx Last Taken Unknown] ascorbic acid (vitamin C) 500 mg PO BIDCM #60 tab 06/16/19 [Rx Last Taken Unknown] bupropion HCl 150 mg PO DAILY #30 tablet.xl 06/16/19 [Rx Last Taken Unknown] citalopram 20 mg PO DAILY #30 tab 06/16/19 [Rx Last Taken Unknown] magnesium oxide 400 mg PO BIDCM #60 tab 06/16/19 [Rx Last Taken Unknown] pantoprazole 20 mg PO BID tab 06/16/19 [Rx Last Taken Unknown] thiamine HCl (vitamin B1) 100 mg PO DAILYCM #30 tab 06/16/19 [Rx Last Taken Unknown] buspirone 20 mg PO BID 11/03/19 [History Last Taken Unknown] tizanidine 4 mg PO QHS PRN 06/18/20 [History Last Taken Unknown] amoxicillin-pot clavulanate 875 mg PO Q12H #8 tab 06/26/20 [Rx Last Taken Unknown] methylprednisolone 4 mg PO UD #1 box 06/26/20 [Rx Last Taken Unknown] Allergy/AdvReac Type Severity Reaction Status Date / Time lisinopril Allergy Severe Angioedema Verified 10/06/20 13:28 bee venom protein (honey bee) Allergy Swelling Verified 10/06/20 13:28 Social History Smoking Status: Current every day smoker tobacco type: cigarettes ROS ROS ED Constitutional Constitutional ED: Denies chills or fever(s) Eyes Eyes: Denies change in vision ENT ENT ED: Denies sore throat Cardiovascular Cardiovascular: Denies chest pain Respiratory/Chest Respiratory/Chest: Denies dyspnea Gastrointestinal Gastrointestinal: Denies abdominal pain, nausea or vomiting Genitourinary Genitourinary ED: Reports other Details: No incontinence ; Denies dysuria or hematuria Musculoskeletal Musculoskeletal: Reports back pain; Denies arthralgias or myalgias Integumentary Denies rash Neurologic Neurologic: Denies headache(s), paresthesias or weakness Psychiatric Psychiatric: Denies anxiety or depression EXAM Physical Exam Const Vital Signs: 10/06/20 13:18 10/06/20 13:31 10/06/20 13:58 Temperature 98.2 F Temperature Source Oral Pulse Rate 90 91 Respiratory Rate 18 18 Blood Pressure 83/41 L 103/54 L 117/54 L Blood Pressure Mean 55 70 75 Pulse Ox 97 97 Oxygen Delivery Method Room Air Room Air 10/06/20 14:53 Temperature Temperature Source Pulse Rate 81 Respiratory Rate 16 Blood Pressure 135/64 H Blood Pressure Mean Pulse Ox 98 Oxygen Delivery Method Positive well nourished and well developed General Appearance ED: well developed HEENT Reports moist mucous membranes Negative for tenderness Eyes PERRL Neck supple and no JVD Resp normal respiratory effort and clear to auscultation bilaterally Cardio regular rate, regular rhythm and no murmurs Cardio Narrative: 2+ bilateral DP pulses GI normal to inspection, nondistended, normoactive bowel sounds and no masses Palpation: Negative for pulsatile mass Back/Spine Back/Spine Narrative: No midline tenderness. No step-off sign. spasm of the paraspinal muscles bilaterally in the lumbar region noted. Extremity General Extremety ED: Yes edema; Negative for tenderness General Extremity: edema Psych mental status grossly normal Skin no rashes or lesions noted MDM MDM MDM Narrative Medical decision making narrative: Patient evaluated for current acute on chronic back pain. He has no focal neurologic deficits. He appears nontoxic in no acute distress. He has good distal pulses. No pulsatile mass in the abdomen. The pain started with rotational movement and I suspect it is muscle skeletal. It is consistent with his prior back pain. He is not have any red flag symptoms concerning for cauda equina syndrome. He is given dose of IV morphine in the ER with significant improvement of his symptoms. He is able to ambulate in the ER. He is discharged home. He will follow-up with his pain management doctor. He states he has been referred to spine as well. Discharge Plan Triage Chief Complaint: Back ED Provider: Trudi Garrison Dx/Rx/DC Orders Clinical Impression: Back pain Instructions: ED Back Pain (Acute or Chronic) Prescriptions: No Action clopidogrel 75 MG tablet 75 mg PO DAILY RF: 0 folic acid 1 MG tablet 1 mg PO DAILY@0800 RF: 0 cholecalciferol (vitamin D3) 1,000 UNIT tablet 2,000 unit PO DAILY RF: 0 budesonide-formoterol 6 GM HFA aerosol inhaler 2 puff IH BID RF: 0 metoprolol tartrate 100 MG tablet 100 mg PO BID RF: 0 acetaminophen 325 MG tablet 650 mg PO Q6H PRN PRN (Reason: Pain Score 1-10/10) RF: 0 atorvastatin 80 MG tablet 80 mg PO QHS RF: 0 amlodipine 5 MG tablet 5 mg PO DAILY RF: 0 thiamine HCl (vitamin B1) 100 MG tablet 100 mg PO DAILYCM Qty: 30 RF: 0 pantoprazole 20 MG tablet 20 mg PO BID RF: 0 citalopram 20 MG tablet 20 mg PO DAILY Qty: 30 RF: 0 magnesium oxide 400 MG tablet 400 mg PO BIDCM Qty: 60 RF: 0 ascorbic acid (vitamin C) 500 MG tablet 500 mg PO BIDCM Qty: 60 RF: 0 bupropion HCl 150 MG tablet extended release 24 hr 150 mg PO DAILY Qty: 30 RF: 0 albuterol sulfate 1 INHALER inhaler 2 puff inhalation Q4H PRN PRN (Reason: Sob &/Or Wheezing) Qty: 1 RF: 0 buspirone 5 MG tablet 20 mg PO BID RF: 0 tizanidine 4 MG capsule 4 mg PO QHS PRN (Reason: Spasms) RF: 0 methylprednisolone 4 MG tablet 4 mg PO UD Qty: 1 RF: 0 amoxicillin-pot clavulanate 875 MG tablet 875 mg PO Q12H Qty: 8 RF: 0 [facility] Provider: [facility] Referrals: Mary Mares MD [STAFF PHYSICIAN] - [facility] [Primary Care Provider] - Activity Restrictions/Additional Instructions: Please follow-up with your pain management doctor as needed. Disposition Disposition: Home, Self Care Discharge Date/Time: 10/06/20 14:55
[2020-10-06 14:53] VITALS: BP 135/64; PULSE 81; RESP 16; O2SAT 98
== END 2020-10-06 14:55 | disposition home or self-care (01) ==
PROVIDERS: Emergency Provider Emergency Medicine
DX: M54.5 Low back pain (principal); F17.210 Nicotine dependence, cigarettes, uncomplicated; E78.00 Pure hypercholesterolemia, unspecified; I10 Essential (primary) hypertension; I25.10 Atherosclerotic heart disease of native coronary artery without angina pectoris; I48.91 Unspecified atrial fibrillation; K21.9 Gastro-esophageal reflux disease without esophagitis; J44.9 Chronic obstructive pulmonary disease, unspecified; Z79.52 Long term (current) use of systemic steroids; Z79.899 Other long term (current) drug therapy; Z87.19 Personal history of other diseases of the digestive system; I25.2 Old myocardial infarction
CPT/HCPCS: 96374; 99282; J7030; A4216

== ENCOUNTER 2020-10-09 11:10 | Emergency (ER) | payer OTHER, MEDICARE, MEDICAID, SELFPAY ==
[2020-10-09 11:11] VITALS: PULSE 76; RESP 14; TEMP 36.9; O2SAT 96; BMI 27.2
[2020-10-09 11:21] VITALS: BP 86/44
[2020-10-09] MEDS: Morphine 4 MG/ML Syringe IM (12:04)
[2020-10-09] MEDS: Ketorolac 60 MG/2 ML Vial IM (12:05)
--- NOTE | 2020-10-09 12:11 | ED.VIS.BACK ---
HPI History of Present Illness Chief Complaint: Back Informant: patient Narrative Narrative: 60-year-old male presents to the emergency department for acute on chronic back pain. Tells me he was seen in the emergency department on Friday received a shot of morphine which helped him. He was going to call Dr. Chavez his pain management doctor's office today but came here. He states he is plan on calling him later today. He notes radiation of the pain down the left leg. This is chronic for him. States it is due to a bulging disc. He notes lower extremity edema. He has a history of alcohol abuse and tobacco abuse. The lower leg swelling has been going on for months. Patient denies any red flag history. Review of his OARRS shows that he is prescribed [place] by Dr. Camacho and is prescribed tizanidine by his primary care doctor [facility] Medical History Afib Ankle fracture, left Ankle fracture, right CAD (coronary artery disease) COPD (chronic obstructive pulmonary disease) Diverticulosis Esophageal varices GERD (gastroesophageal reflux disease) Heart attack Hepatitis C High cholesterol HTN (hypertension) Hx of pancreatitis Kidney failure Liver failure Stroke Home Medications clopidogrel 75 mg PO DAILY 09/10/16 [History Last Taken 09/10/16 08:00] folic acid 1 mg PO DAILY@0800 09/10/16 [History Last Taken 05/24/19] budesonide-formoterol 2 puff IH BID 04/25/19 [History Last Taken 05/25/19] cholecalciferol (vitamin D3) 2,000 unit PO DAILY 04/25/19 [History Last Taken Unknown] metoprolol tartrate 100 mg PO BID 05/25/19 [History Last Taken 05/25/19] acetaminophen 650 mg PO Q6H PRN PRN tab 06/05/19 [Rx Last Taken Unknown] amlodipine 5 mg PO DAILY 06/05/19 [History Last Taken Unknown] atorvastatin 80 mg PO QHS 06/05/19 [History Last Taken Unknown] albuterol sulfate 2 puff INHALATION Q4H PRN PRN #1 inhaler 06/16/19 [Rx Last Taken Unknown] bupropion HCl 150 mg PO DAILY #30 tablet.xl 06/16/19 [Rx Last Taken Unknown] citalopram 20 mg PO DAILY #30 tab 06/16/19 [Rx Last Taken Unknown] magnesium oxide 400 mg PO BIDCM #60 tab 06/16/19 [Rx Last Taken Unknown] pantoprazole 20 mg PO BID tab 06/16/19 [Rx Last Taken Unknown] thiamine HCl (vitamin B1) 100 mg PO DAILYCM #30 tab 06/16/19 [Rx Last Taken Unknown] buspirone 20 mg PO BID 11/03/19 [History Last Taken Unknown] tizanidine 4 mg PO QHS PRN 06/18/20 [History Last Taken Unknown] furosemide [Lasix] 40 mg PO DAILY #7 tab 10/09/20 [Rx Last Taken Unknown] Allergy/AdvReac Type Severity Reaction Status Date / Time lisinopril Allergy Severe Angioedema Verified 10/09/20 11:14 bee venom protein (honey bee) Allergy Swelling Verified 10/09/20 11:14 Social History Smoking Status: Current every day smoker tobacco type: cigarettes ROS ROS ED Constitutional Constitutional ED: Denies chills or weight loss Eyes Eyes: Denies change in vision or diplopia ENT ENT ED: Denies ear pain, rhinorrhea or sore throat Cardiovascular Cardiovascular: Denies chest pain, orthopnea, palpitations or racing heartbeat Respiratory/Chest Respiratory/Chest: Denies cough, dyspnea or orthopnea Gastrointestinal Gastrointestinal: Denies abdominal pain, diarrhea, nausea or vomiting Genitourinary Genitourinary ED: Denies dysuria, hematuria or urinary frequency Musculoskeletal Musculoskeletal: Reports back pain and other Details: Leg edema ; Denies arthralgias or myalgias Integumentary Denies abscess or rash Neurologic Neurologic: Denies headache(s) or weakness Psychiatric Psychiatric: Denies anxiety, depression, suicidal ideation or suicidal thoughts Endocrine Endocrinology: Denies polydipsia, polyphagia or polyuria Allergic/Immunologic Allergic/Immunologic ED: Denies mouth swelling, tongue swelling or urticaria EXAM Physical Exam Const Vital Signs: 10/09/20 11:11 10/09/20 11:21 Temperature 98.5 F Temperature Source Oral Pulse Rate 76 Respiratory Rate 14 Blood Pressure 86/44 L Blood Pressure Mean 58 Pulse Ox 96 Oxygen Delivery Method Room Air Positive well nourished and well developed General Appearance ED: well developed HEENT Reports normocephalic, head/scalp atraumatic and moist mucous membranes Eyes PERRL and EOMs intact bilaterally Neck no lymphadenopathy, supple and no JVD Resp normal respiratory effort and clear to auscultation bilaterally Cardio regular rate, regular rhythm and no murmurs GI normal to inspection, nondistended, normoactive bowel sounds and non-tender Palpation: soft Back/Spine no CVA tenderness and normal ROM Back/Spine Narrative: Patient has tenderness palpation of the lower lumbar diffusely. There are no skin changes to suggest abscess. Extremity normal to inspection Extremity Narrative: 2+ lower extremity edema symmetric General Extremety ED: Yes edema General Extremity: edema Neuro oriented x3 and CN's II-XII intact bilaterally Sensorium / Orientation: alert Motor Exam: strength 5/5 throughout Psych mental status grossly normal Mood & Affect: Negative for depressed or tearful Skin no rashes or lesions noted and no wounds MDM MDM MDM Narrative Medical decision making narrative: I will give the patient a dose of IM Toradol and morphine. I did speak with Dr. Camacho who can see him tomorrow. I will also write for Lasix and suggest he follow-up with his primary care doctor. Discharge Plan Triage Chief Complaint: Back ED Provider: Manuel Bolanos Dx/Rx/DC Orders Clinical Impression: Lymphedema, Chronic back pain Instructions: ED Peripheral Edema, Bilateral Prescriptions: New furosemide [Lasix] 40 mg tablet 40 mg PO DAILY Qty: 7 RF: 0 No Action clopidogrel 75 MG tablet 75 mg PO DAILY RF: 0 folic acid 1 MG tablet 1 mg PO DAILY@0800 RF: 0 cholecalciferol (vitamin D3) 1,000 UNIT tablet 2,000 unit PO DAILY RF: 0 budesonide-formoterol 6 GM HFA aerosol inhaler 2 puff IH BID RF: 0 metoprolol tartrate 100 MG tablet 100 mg PO BID RF: 0 acetaminophen 325 MG tablet 650 mg PO Q6H PRN PRN (Reason: Pain Score 1-10/10) RF: 0 atorvastatin 80 MG tablet 80 mg PO QHS RF: 0 amlodipine 5 MG tablet 5 mg PO DAILY RF: 0 thiamine HCl (vitamin B1) 100 MG tablet 100 mg PO DAILYCM Qty: 30 RF: 0 pantoprazole 20 MG tablet 20 mg PO BID RF: 0 citalopram 20 MG tablet 20 mg PO DAILY Qty: 30 RF: 0 magnesium oxide 400 MG tablet 400 mg PO BIDCM Qty: 60 RF: 0 bupropion HCl 150 MG tablet extended release 24 hr 150 mg PO DAILY Qty: 30 RF: 0 albuterol sulfate 1 INHALER inhaler 2 puff inhalation Q4H PRN PRN (Reason: Sob &/Or Wheezing) Qty: 1 RF: 0 buspirone 5 MG tablet 20 mg PO BID RF: 0 tizanidine 4 MG capsule 4 mg PO QHS PRN (Reason: Spasms) RF: 0 [facility] [place] Referrals: Mary Mares MD [STAFF PHYSICIAN] - 1 Day (Please call the office today and he can see you tomorrow) [facility] [Primary Care Provider] - As soon as possible (To discuss your leg swelling) Disposition Disposition: Home, Self Care
[2020-10-09 12:32] VITALS: BP 113/51; PULSE 68; RESP 14; O2SAT 96
--- NOTE | 2020-10-10 15:52 | ED.RN ---
PT ARRIVVED BY EMS AGAIN TODAY WITH THE SAME C/O CHRONIC BACK PAIN. PT STATES HE WAS UNABLE TO GO TO HIS SCHEDULED APPT W DR THOMPSON THAT DR LUGO SET UP FOR HIM. EXPLAINED TO PT THAT WE WOULD NOT BE GIVING HIM ANY PAIN MEDS OCCURRED YESTERDAY. PT STATES THEN HE WILL JUST WALK TO HIS DR OFFICE NOW. DISCUSSED THIS PLAN WITH DR LUGO AND HE WAS AGREEABLE TO THIS PLAN. PT WAS GIVEN DIRECTIONS TO DR THOMPSON OFFICE
== END 2020-10-09 12:33 | disposition home or self-care (01) ==
LOC: ED 12:19
PROVIDERS: Emergency Provider Emergency Medicine
DX: I89.0 Lymphedema, not elsewhere classified (principal); M54.9 Dorsalgia, unspecified; G89.29 Other chronic pain; F17.210 Nicotine dependence, cigarettes, uncomplicated; I25.10 Atherosclerotic heart disease of native coronary artery without angina pectoris; J44.9 Chronic obstructive pulmonary disease, unspecified; I25.2 Old myocardial infarction; I10 Essential (primary) hypertension; E78.00 Pure hypercholesterolemia, unspecified; I48.91 Unspecified atrial fibrillation; Z86.73 Personal history of transient ischemic attack (TIA), and cerebral infarction without residual deficits; K21.9 Gastro-esophageal reflux disease without esophagitis; Z87.19 Personal history of other diseases of the digestive system; Z79.899 Other long term (current) drug therapy
CPT/HCPCS: 96372; 99284

== ENCOUNTER → 2020-11-10 14:50 | Outpatient (CLI) | payer MEDICARE, SELFPAY ==
[2020-10-25 11:00] VITALS: BMI 27.2
--- NOTE | 2020-11-10 14:52 | MRI_ITS ---
HISTORY: Worsening LBP, LEFT leg pain, numbness, falls, N/T in left leg. TECHNIQUE: Multiplanar and multisequence MR images of the lumbar spine. IV Contrast dosage and agent: None. # of images incl. paperwork: 124. COMPARISON: XR 10/25/2020, MR 06/19/2020. FINDINGS: VERTEBRAE: Vertebral body heights maintained with Schmorl's nodes again noted. Degenerative bone marrow endplate changes. ALIGNMENT: No significant anterior or posterior subluxation. CONUS: Normal morphology and position at T12-L1. SOFT TISSUES: No paraspinal fluid collection. INTERVERTEBRAL DISCS: Multilevel degenerative changes with posterior disc bulge osteophyte complexes and facet arthropathy. L1-2: Minimal narrowing of the thecal sac. L2-3:Minimal narrowing of the thecal sac and mild left foraminal narrowing. L3-4: 0.7 x 1.2 x 2.8 cm left paracentral T1 isointense lesion contiguous with the intervertebral disc demonstrating superior and inferior migration, extension into the left lateral recess with effacement of the left L4 nerve root, severe central canal stenosis with effacement of the left L5 nerve root in the thecal sac, and moderate left and mild right foraminal narrowing L4-5: Mild central canal stenosis. Moderate right and severe left foraminal narrowing. L5-S1: Mild bilateral foraminal narrowing. MRI/Spine Lumbar (Routine) IMPRESSION: 2.8 cm long lesion in the spinal canal at the L3-4 level, concerning for large disc extrusion with migration resulting in severe spinal canal stenosis and left nerve root impingement. Multilevel degenerative disc disease as described above. at [id number] Reported and signed by: Ashley Parkinson MD Electronically Signed: Ashley Parkinson MD at 16:26 EDT Tel , Service support ,
== END ==
PROVIDERS: Referring Provider Orthopaedic Surgery; Visit Provider Orthopaedic Surgery
DX: M54.17 Radiculopathy, lumbosacral region (principal); M54.5 Low back pain
CPT/HCPCS: 72148

== ENCOUNTER → 2020-11-17 12:54 | Outpatient (CLI) | payer MEDICARE, SELFPAY ==
[2020-11-15 13:49] VITALS: BMI 27.2
--- NOTE | 2020-11-17 09:13 | EKG12_ITS ---
Test Reason : PREOP Blood Pressure : / mmHG Vent. Rate : 080 BPM Atrial Rate : 080 BPM P-R Int : 144 ms QRS Dur : 080 ms QT Int : 392 ms P-R-T Axes : 009 058 049 degrees QTc Int : 452 ms Normal sinus rhythm Normal ECG Confirmed by SEDA WASHINGTON, FAIZAN ([id number]), manager editorial SUE POMPA ([id number]) on 11/20/2020 10:07:24 AM Referred By: Josesito Couch Confirmed By:FAIZAN STACK MD
[2020-11-17 10:15] LABS: Absolute Lymphocyte Count 0.47 X10^3/uL (0.83-4.51); Absolute Neutrophil Count 2.8 X10^3/uL (2.0-7.7); Basophil# 0.02 X10^3/uL; Basophil% 0.5 % (0-1); Eosinophil# 0.04 X10^3/uL; Hematocrit 33.5 % (40-54); Hemoglobin 10.2 g/dL (13.0-16.5); Lymphocyte # 0.47 X10^3/ul (0.83-4.51); Lymphocyte % 11.4 % (19-41); Mean Corp Hgb Conc 30.4 g/dL (32-36); Mean Corpuscular Hgb 27.2 pg (27.0-32.0); Mean Corpuscular Volume 89.3 fL (80-94); Mean Platelet Vol. 9.6 fl (6.2-12.0); Monocyte# 0.77 X10^3/uL; Monocyte% 18.7 % (0-10); NRBC Flagged by Analyzer 0 % (0-5); Neutrophil # 2.79 X10^3/uL (2.7-7.7); Neutrophil % 67.9 % (47-70); POSITIVE DIFFERENTIAL YES; Platelet Count 121 K/mm3 (150-450); RBC Distribution Width CV 15.9 % (11.6-14.6); RBC Distribution Width SD 52.9 fl (35.1-43.9); Red Blood Count 3.75 M/mm3 (4.6-6.2)
[2020-11-17 10:22] LABS: Differential Indicated SCAN CRITERIA MET
[2020-11-17 10:37] LABS: Anion Gap 8 (5-15); BUN 9 mg/dL (7-18); BUN/Creat Ratio 10.5 RATIO (10-20); Calcium,Total 9.3 mg/dL (8.5-10.1); Chloride 99 mmol/L (98-107); Creatinine, Serum 0.86 mg/dL (0.70-1.30); EST Glomerular Filtration Rate 96 mL/min (>60); Est Glom Filt Rate - Afr Amer 116 mL/min (>60); Glucose 93 mg/dL (74-106); Potassium 3.8 mmol/L (3.5-5.1); Sodium Level 134 mmol/L (136-145)
[2020-11-17 10:53] LABS: Differential Comment D
[2020-11-17 10:55] LABS: White Blood Count 4.1 K/mm3 (4.4-11.0)
[2020-11-17 11:02] LABS: HIV - WCH Non-Reactive (Nonreactive)
[2020-11-19 09:36] LABS: HEPATITIS B SURFACE AG Negative (Negative); Hepatitis A AB, Total Negative (Negative); Hepatitis A IgM Antibody Negative (Negative); Hepatitis B Core AB IgM Negative (Negative); Hepatitis B Core Ab Total Negative (Negative)
[2020-11-19 10:01] LABS: Hep B Surface Antibodies Non Reactive (.)
[2020-11-20 14:38] LABS: Pathologist Review Reviewed
== END ==
PROVIDERS: Anesthesiology; Referring Provider Orthopaedic Surgery; Visit Provider Orthopaedic Surgery
DX: Z01.818 Encounter for other preprocedural examination (principal); Z01.812 Encounter for preprocedural laboratory examination; Z20.828 Contact with and (suspected) exposure to other viral communicable diseases
CPT/HCPCS: 36415; 80048; 83735; 85025; 86703; 86704; 86705; 86706; 86708; 86709; 86803; 87081; 87340; 87426; 93005; C9803

== ENCOUNTER 2021-09-08 12:41 | Inpatient (IN) | payer MEDICARE, OTHER, SELFPAY ==
[2021-09-08] VITALS (11 sets, daily range): BP systolic 147–180; BP diastolic 73–103; PULSE 96–117; RESP 16–20; TEMP 36.8–37.2; O2SAT 95–100; BMI 24.2; BMI 25.8
--- NOTE | 2021-09-08 13:07 | EKG12_ITS ---
Test Reason : WEAKNESS Blood Pressure : / mmHG Vent. Rate : 104 BPM Atrial Rate : 104 BPM P-R Int : 138 ms QRS Dur : 084 ms QT Int : 392 ms P-R-T Axes : 043 057 032 degrees QTc Int : 515 ms Sinus tachycardia Nonspecific ST abnormality Abnormal ECG Confirmed by ANGELES HARDIN MD ([id number]), video editor KAVEH BOATENG ([id number]) on 09/11/2021 1:12:31 PM Referred By: KENDELL Confirmed By:ANGELES HARDIN MD
--- NOTE | 2021-09-08 13:09 | CT_ITS ---
STUDY: CT BRAIN WITHOUT CONTRAST REASON FOR EXAM: Male, 61 years old. weakness RADIATION DOSAGE (If Supplied By Facility): CTDIvol = ( 44.99 ) mGy, DLP = ( 796.11 ) mGycm TECHNIQUE: Transaxial CT imaging of the brain was performed without administration of intravenous contrast material. Individualized dose optimization techniques were used for this CT. COMPARISON: 09/14/2016 FINDINGS: Normal soft tissue structures. Normal calvarium. There is mild cerebral atrophy with widening of the extra-axial spaces and ventricular dilatation. There are areas of decreased attenuation within the white matter tracts of the supratentorial brain, consistent with microvascular disease changes. Chronic lacunar infarct of the left thalamus. Normal brainstem. Normal cerebellum. There is no intracranial hemorrhage. There are no findings of an acute ischemic infarction. Normal visualized paranasal sinuses. CT/Brain/Head without Contrast IMPRESSION: Chronic involutional changes of the brain. Electronically Signed: Can Person MD at 14:49 EDT ,
--- NOTE | 2021-09-08 13:13 | EDS_ITS ---
HPI <ROSSANA Aaron - Last Filed: 09/08/21 14:54> History of Present Illness Chief Complaint: Weakness Narrative Narrative: 61-year-old male with history of alcohol abuse, stroke, pancreatitis, chronic back pain presents the emergency department for weakness. A welfare check was being conducted on this patient secondary to him not responding to his friend. Patient was found to be cold up in a blanket, he was covered in his own feces and urine. Patient is acting somnolent, and was brought in by EMS. Patient states that he has been sick for the last 7 days, he has a cough, generalized fatigue. He denies any falls, denies any fevers, chills, blood in stool. Patient did drink 1 beer today, denies any fevers or chills. PFSH <ROSSANA Aaron - Last Filed: 09/08/21 14:54> [facility] Medical History Afib Alcohol use Ankle fracture, left Ankle fracture, right CAD (coronary artery disease) COPD (chronic obstructive pulmonary disease) Diverticulosis Easy bruising Esophageal varices Excessive bleeding GERD (gastroesophageal reflux disease) Heart attack High cholesterol History of broken leg History of echocardiogram History of edema History of GI bleed History of liver failure History of renal failure HTN (hypertension) Hx of pancreatitis Loss of consciousness Psoriasis Smoker Stroke Uses wheelchair Walker as ambulation aid Home Medications clopidogrel 75 mg PO DAILY 09/10/16 [History Last Taken 09/10/16 08:00] folic acid 1 mg PO DAILY@0800 09/10/16 [History Last Taken 05/24/19] budesonide-formoterol 2 puff IH BID 04/25/19 [History Last Taken 05/25/19] cholecalciferol (vitamin D3) 2,000 unit PO DAILY 04/25/19 [History Last Taken Unknown] amlodipine 5 mg PO BID 06/05/19 [History Last Taken Unknown] atorvastatin 80 mg PO QHS 06/05/19 [History Last Taken Unknown] albuterol sulfate 2 puff INHALATION Q4H PRN PRN #1 inhaler 06/16/19 [Rx Last Taken Unknown] thiamine HCl (vitamin B1) 100 mg PO DAILYCM #30 tab 06/16/19 [Rx Last Taken Unknown] buspirone 20 mg PO BID 11/03/19 [History Last Taken Unknown] acetaminophen 325 mg tablet 650 mg PO Q6H PRN PRN tab 10/25/20 [History Last Taken Unknown] bupropion HCl 150 mg PO DAILY 11/20/20 [History Last Taken Unknown] citalopram 20 mg PO DAILY 11/20/20 [History Last Taken Unknown] magnesium oxide 400 mg PO DAILY 11/20/20 [History Last Taken Unknown] buprenorphine 1 patch TRANSDERMAL FR 09/09/21 [History Last Taken 09/07/21] ciprofloxacin HCl [Cipro] 750 mg PO .q week #1 tab 09/15/21 [Rx Last Taken Unknown] pantoprazole 40 mg PO BID #0 tab 09/15/21 [Rx Last Taken Unknown] potassium chloride [Klor-Con M20] 40 meq PO DAILY #0 tab 09/15/21 [Rx Last Taken Unknown] rifaximin [Xifaxan] 550 mg PO BID #0 tab 09/15/21 [Rx Last Taken Unknown] spironolactone 25 mg PO DAILY #0 tab 09/15/21 [Rx Last Taken Unknown] sulfamethoxazole-trimethoprim 1 tab PO BID #0 tab 09/15/21 [Rx Last Taken Unknown] furosemide [Lasix] 20 mg PO DAILY #7 tab 09/16/21 [Rx Last Taken Unknown] metoprolol tartrate 100 mg PO BID #0 tab 09/16/21 [Rx Last Taken 05/25/19] Allergy/AdvReac Type Severity Reaction Status Date / Time lisinopril Allergy Severe Angioedema Verified 09/08/21 12:59 bee venom protein (honey bee) Allergy Swelling Verified 09/08/21 12:59 Surgical History History of esophagogastroduodenoscopy (EGD) History of foot surgery History of intravascular stent placement Social History (Updated 09/08/21 @ 15:11 by Sandra Pemberton NP-C) Smoking Status: Current every day smoker tobacco type: cigarettes alcohol intake: current alcohol intake frequency: 3 or more drinks per day Alcohol type: beer ROS <ROSSANA Aaron - Last Filed: 09/08/21 14:54> ROS ED ROS Narrative Constitutional: Negative for fever, chills, weight loss. Positive for weakness Eyes: Negative for vision loss, vision change, double vision ENT: Negative for any sore throat, ear pain, congestion Cardiovascular: Negative for any chest pain, tightness, palpitations Respiratory: Negative for any sputum production, hemoptysis, dyspnea, dyspnea on exertion, orthopnea. Positive for cough Gastrointestinal: Negative for any abdominal pain, nausea, vomiting, diarrhea, constipation, blood in stool, blood in vomit : Negative for any urinary frequency, dysuria, retention, blood in urine Muscle skeletal: Negative for any muscle joint pain, stiffness, arthralgias, neck pain, back pain. Positive for myalgias Neurological: Negative for any headache, syncope, numbness or tingling, dizzines s Skin: Negative for any rashes, lumps, itching, abrasions, lacerations Psychiatric: Negative for any depression, anxiety, stress, suicidal ideation, homicidal ideation Hematologic: Negative for any easy bruising, excessive bruising, easy bleeding Allergies: Negative for any eczema, hives, rash EXAM <ROSSANA Aaron - Last Filed: 09/08/21 14:54> Physical Exam Narrative Exam Narrative: Vital signs reviewed. Patient is pale appearing, patient is somnolent, he does answer questions, patient was brought in in a blanket covered in his own feces, urine. HEET: Head normocephalic atraumatic, TMs clear bilaterally. Posterior pharynx is clear, dry mucous membranes. Nares clear bilaterally. Neck: Supple with no lymphadenopathy or tenderness. No signs of meningismus, negative jolt sign. Cardiac: Tachycardic rate no murmurs gallops or rubs, equal peripheral pulses bilaterally. Respiratory: Crackles, rales throughout pulmonary exam. No chest tenderness. Abdomen: Soft, nontender. No abdominal bruit or pulsatile masses. No hepatosplenomegaly. Patient does have slight distention however I am unsure that this is new or chronic. Extremities: No peripheral edema, no signs of gross trauma or deformity. Active full range of motion of all extremities. Neuro: Cranial nerves II through XII intact, no focal neurological deficits. Skin: Clean dry and intact with no rash, purpura, petechiae, vesicles or pustules. Pale, ill appearance Backs/flank: No CVA tenderness, no midline spinal tenderness, no deformity. Psych: Normal mood and affect. No SI, HI or acute psychosis. Const Vital Signs: 09/08/21 12:50 09/08/21 13:40 09/08/21 13:42 Temperature 98.8 F Temperature Source Temporal Pulse Rate 102 H 96 Respiratory Rate 20 H 16 Respiratory Effort Short of Breath Respiratory Pattern Normal Blood Pressure 157/83 H 160/86 H Blood Pressure Mean 107 110 Pulse Ox 100 96 Oxygen Delivery Method Room Air Room Air Positive cachectic and unkempt General Appearance ED: unkempt and cachectic Nutritional Appearance: cachectic Psych Appearance: unkempt <Dr. Trudi Garrison, DO - Last Filed: 09/19/21 07:05> Physical Exam Const Vital Signs: 09/08/21 12:50 09/08/21 13:40 09/08/21 13:42 Temperature 98.8 F Temperature Source Temporal Pulse Rate 102 H 96 Respiratory Rate 20 H 16 Respiratory Effort Short of Breath Respiratory Pattern Normal Blood Pressure 157/83 H 160/86 H Blood Pressure Mean 107 110 Pulse Ox 100 96 Oxygen Delivery Method Room Air Room Air MDM <ROSSANA Aaron - Last Filed: 09/08/21 14:54> [facility] Narrative Medical decision making narrative: Patient does arrive lethargic, patient's vital signs are stable, patient presents the emergency department after police were sent to his house for a welfare check. Patient was found lethargic, in his own feces and urine. Patient did receive a full work-up, patient does have known alcohol abuse, patient CBC shows elevated white blood count of 12.8, hemoglobin is 7.8. Patient has been this low in the past.Patient's sodium was low at 127, lactic acid was 1.6 patient's liver enzymes were elevated. Pat arianne's urinalysis was positive for opiates, negative for any infection. Patient's ammonia level was elevated at 53, this could be the reason for his altered mental status. Patient's chest x-ray was unremarkable. Patient CT of the brain showed no acute process. Patient was given IV fluids, patient have a rectal exam done, he did have a acute hemorrhoid with no rectal bleeding. Patient's rectal exam was unremarkable showing yellow stool. Patient will need to be admitted to the hospital for hepatic encephalopathy, hyponatremia, transaminitis. Due to the patient's elevated liver enzymes, patient will also receive a CT of the abdomen pelvis. Patient will be admitted to the hospital. Lab Data Labs: Laboratory Results - last 24 hr 09/08/21 09/08/21 09/08/21 13:26 13:26 13:26 WBC 12.8 H RBC 3.35 L Hgb 7.8 L Hct 26.7 L MCV 79.7 L MCH 23.3 L MCHC 29.2 L RDW Std Deviation 53.7 H RDW Coeff of Donnie 18.8 H Plt Count 198 MPV 9.5 Immature Gran % (Auto) 0.600 Neut % (Auto) 91.2 H Lymph % (Auto) 5.0 L Concho % (Auto) 3.1 Eos % (Auto) 0.0 Baso % (Auto) 0.1 Absolute Neuts (auto) 11.7 H Absolute Lymphs (auto) 0.64 L Nucleated RBC % 0 Sodium Potassium Chloride Carbon Dioxide Anion Gap BUN Creatinine Estim Creat Clear Calc Est GFR (MDRD) Af Amer Est GFR (MDRD) Non-Af BUN/Creatinine Ratio Glucose Lactic Acid Calcium Total Bilirubin Direct Bilirubin AST ALT Alkaline Phosphatase Ammonia 53.0 H Total Creatine Kinase Troponin I High Sens Total Protein Albumin Globulin Amylase Lipase Urine Color Urine Clarity Urine pH Ur Specific Spruce Urine Protein Urine Glucose (UA) Urine Ketones Urine Occult Blood Urine Nitrite Urine Bilirubin Urine Urobilinogen Ur Leukocyte Esterase Urine RBC Urine WBC Ur Squamous Epith Cells Urine Bacteria Urine Mucus Urine Opiates Screen Urine Methadone Screen Ur Barbiturates Screen Ur Phencyclidine Scrn Ur Amphetamines Screen MDMA (Ecstasy) Screen U Benzodiazepines Scrn Urine Cocaine Screen U Cannabinoids Screen Ur Drug Screen Comment Ethyl Alcohol < 3.0 09/08/21 09/08/21 09/08/21 13:26 13:26 13:30 WBC RBC Hgb Hct MCV MCH MCHC RDW Std Deviation RDW Coeff of Donnie Plt Count MPV Immature Gran % (Auto) Neut % (Auto) Lymph % (Auto) Concho % (Auto) Eos % (Auto) Baso % (Auto) Absolute Neuts (auto) Absolute Lymphs (auto) Nucleated RBC % Sodium 127 L Potassium 3.5 Chloride 94 L Carbon Dioxide 23.0 Anion Gap 10 BUN 7 Creatinine 0.89 Estim Creat Clear Calc 78.65 Est GFR (MDRD) Af Amer 111 Est GFR (MDRD) Non-Af 92 BUN/Creatinine Ratio 7.8 L Glucose 114 H Lactic Acid 1.6 Calcium 8.1 L Total Bilirubin 0.70 Direct Bilirubin 0.41 H AST 140 H ALT 127 H Alkaline Phosphatase 258 H Ammonia Total Creatine Kinase 89 Troponin I High Sens 18 Total Protein 6.6 Albumin 2.4 L Globulin 4.2 Amylase 21 L Lipase 67 L Urine Color Urine Clarity Urine pH Ur Specific Spruce Urine Protein Urine Glucose (UA) Urine Ketones Urine Occult Blood Urine Nitrite Urine Bilirubin Urine Urobilinogen Ur Leukocyte Esterase Urine RBC Urine WBC Ur Squamous Epith Cells Urine Bacteria Urine Mucus Urine Opiates Screen Urine Methadone Screen Ur Barbiturates Screen Ur Phencyclidine Scrn Ur Amphetamines Screen MDMA (Ecstasy) Screen U Benzodiazepines Scrn Urine Cocaine Screen U Cannabinoids Screen Ur Drug Screen Comment Ethyl Alcohol 09/08/21 09/08/21 13:50 13:50 WBC RBC Hgb Hct MCV MCH MCHC RDW Std Deviation RDW Coeff of Donnie Plt Count MPV Immature Gran % (Auto) Neut % (Auto) Lymph % (Auto) Concho % (Auto) Eos % (Auto) Baso % (Auto) Absolute Neuts (auto) Absolute Lymphs (auto) Nucleated RBC % Sodium Potassium Chloride Carbon Dioxide Anion Gap BUN Creatinine Estim Creat Clear Calc Est GFR (MDRD) Af Amer Est GFR (MDRD) Non-Af BUN/Creatinine Ratio Glucose Lactic Acid Calcium Total Bilirubin Direct Bilirubin AST ALT Alkaline Phosphatase Ammonia Total Creatine Kinase Troponin I High Sens Total Protein Albumin Globulin Amylase Lipase Urine Color Yellow Urine Clarity Clear Urine pH 6.0 Ur Specific Spruce 1.015 Urine Protein 30 H Urine Glucose (UA) Normal Urine Ketones 5 H Urine Occult Blood Negative Urine Nitrite Negative Urine Bilirubin Negative Urine Urobilinogen Normal Ur Leukocyte Esterase Negative Urine RBC 0 SEEN Urine WBC 0 SEEN Ur Squamous Epith Cells 0 SEEN Urine Bacteria 0 SEEN Urine Mucus 0 SEEN Urine Opiates Screen POSITIVE H Urine Methadone Screen NEGATIVE Ur Barbiturates Screen NEGATIVE Ur Phencyclidine Scrn NEGATIVE Ur Amphetamines Screen NEGATIVE MDMA (Ecstasy) Screen NEGATIVE U Benzodiazepines Scrn NEGATIVE Urine Cocaine Screen NEGATIVE U Cannabinoids Screen NEGATIVE Ur Drug Screen Comment Ethyl Alcohol Radiography Diagnostic Testing: Clinical Impression(s) from Imaging Studies Brain CT 09/08/21 13:09 IMPRESSION: Chronic involutional changes of the brain. Electronically Signed: Can Person MD at 14:49 EDT , Chest X-Ray 09/08/21 13:15 IMPRESSION: No active disease. Electronically Signed: Can Person MD at 14:14 EDT , Abdomen/Pelvis CT 09/08/21 14:16 IMPRESSION: Cirrhosis with a large amount of ascites. Electronically Signed: Can Person MD at 16:21 EDT , EKG Sinus tachycardia: Comments: Sinus tachycardia, rate 104 bpm, NC interval was 138 ms, QRS duration 84 ms, there is no acute ST elevation, no acute infarct noted. <Dr. Trudi Garrison, DO - Last Filed: 09/19/21 07:05> [facility] MDM Narrative Medical decision making narrative: I have personally performed a face to face assessment of the patient and have reviewed the LEONID Note. I performed a substantive portion of the visit including all aspects of the following. My shah findings include: History is patient is evaluated for acute mental status. His known alcoholic. Patient is somnolent does not verbalize any complaints at this time. On exam patient appears chronically ill but no acute distress. He is unkempt and covered in excrement. Intermittently arousable but protecting his airway. Heart regular rate and rhythm. Abdomen protuberant with diminished bowel sounds. No fluid wave. No peritoneal signs. No tenderness to the abdomen. No deformity or signs of trauma. No focal neurologic deficits. Medical Decision Making Patient is found to have a mild leukocytosis of 12.8 but no clear sign of infection. He is anemic with a hemoglobin of 7.8. No signs of active bleeding. Patient does have an elevated ammonia level and I suspect he is hepatic encephalopathy causing his altered mental state. Likely secondary to his history of alcohol abuse. Lactate is normal at 1.6. Patient is admitted for further treatment of suspected hepatic encephalopathy. Other additions or changes: [None] Lab Data Attestation: I reviewed the patient's lab results. Labs: Laboratory Results - last 24 hr 09/08/21 09/08/21 09/08/21 13:26 13:26 13:26 WBC 12.8 H RBC 3.35 L Hgb 7.8 L Hct 26.7 L MCV 79.7 L MCH 23.3 L MCHC 29.2 L RDW Std Deviation 53.7 H RDW Coeff of Donnie 18.8 H Plt Count 198 MPV 9.5 Immature Gran % (Auto) 0.600 Neut % (Auto) 91.2 H Lymph % (Auto) 5.0 L Concho % (Auto) 3.1 Eos % (Auto) 0.0 Baso % (Auto) 0.1 Absolute Neuts (auto) 11.7 H Absolute Lymphs (auto) 0.64 L Nucleated RBC % 0 Sodium Potassium Chloride Carbon Dioxide Anion Gap BUN Creatinine Estim Creat Clear Calc Est GFR (MDRD) Af Amer Est GFR (MDRD) Non-Af BUN/Creatinine Ratio Glucose Lactic Acid Calcium Total Bilirubin Direct Bilirubin AST ALT Alkaline Phosphatase Ammonia 53.0 H Total Creatine Kinase Troponin I High Sens Total Protein Albumin Globulin Amylase Lipase Urine Color Urine Clarity Urine pH Ur Specific Spruce Urine Protein Urine Glucose (UA) Urine Ketones Urine Occult Blood Urine Nitrite Urine Bilirubin Urine Urobilinogen Ur Leukocyte Esterase Urine RBC Urine WBC Ur Squamous Epith Cells Urine Bacteria Urine Mucus Urine Opiates Screen Urine Methadone Screen Ur Barbiturates Screen Ur Phencyclidine Scrn Ur Amphetamines Screen MDMA (Ecstasy) Screen U Benzodiazepines Scrn Urine Cocaine Screen U Cannabinoids Screen Ur Drug Screen Comment Ethyl Alcohol < 3.0 09/08/21 09/08/21 09/08/21 13:26 13:26 13:30 WBC RBC Hgb Hct MCV MCH MCHC RDW Std Deviation RDW Coeff of Donnie Plt Count MPV Immature Gran % (Auto) Neut % (Auto) Lymph % (Auto) Concho % (Auto) Eos % (Auto) Baso % (Auto) Absolute Neuts (auto) Absolute Lymphs (auto) Nucleated RBC % Sodium 127 L Potassium 3.5 Chloride 94 L Carbon Dioxide 23.0 Anion Gap 10 BUN 7 Creatinine 0.89 Estim Creat Clear Calc 78.65 Est GFR (MDRD) Af Amer 111 Est GFR (MDRD) Non-Af 92 BUN/Creatinine Ratio 7.8 L Glucose 114 H Lactic Acid 1.6 Calcium 8.1 L Total Bilirubin 0.70 Direct Bilirubin 0.41 H AST 140 H ALT 127 H Alkaline Phosphatase 258 H Ammonia Total Creatine Kinase 89 Troponin I High Sens 18 Total Protein 6.6 Albumin 2.4 L Globulin 4.2 Amylase 21 L Lipase 67 L Urine Color Urine Clarity Urine pH Ur Specific Spruce Urine Protein Urine Glucose (UA) Urine Ketones Urine Occult Blood Urine Nitrite Urine Bilirubin Urine Urobilinogen Ur Leukocyte Esterase Urine RBC Urine WBC Ur Squamous Epith Cells Urine Bacteria Urine Mucus Urine Opiates Screen Urine Methadone Screen Ur Barbiturates Screen Ur Phencyclidine Scrn Ur Amphetamines Screen MDMA (Ecstasy) Screen U Benzodiazepines Scrn Urine Cocaine Screen U Cannabinoids Screen Ur Drug Screen Comment Ethyl Alcohol 09/08/21 09/08/21 13:50 13:50 WBC RBC Hgb Hct MCV MCH MCHC RDW Std Deviation RDW Coeff of Donnie Plt Count MPV Immature Gran % (Auto) Neut % (Auto) Lymph % (Auto) Concho % (Auto) Eos % (Auto) Baso % (Auto) Absolute Neuts (auto) Absolute Lymphs (auto) Nucleated RBC % Sodium Potassium Chloride Carbon Dioxide Anion Gap BUN Creatinine Estim Creat Clear Calc Est GFR (MDRD) Af Amer Est GFR (MDRD) Non-Af BUN/Creatinine Ratio Glucose Lactic Acid Calcium Total Bilirubin Direct Bilirubin AST ALT Alkaline Phosphatase Ammonia Total Creatine Kinase Troponin I High Sens Total Protein Albumin Globulin Amylase Lipase Urine Color Yellow Urine Clarity Clear Urine pH 6.0 Ur Specific Spruce 1.015 Urine Protein 30 H Urine Glucose (UA) Normal Urine Ketones 5 H Urine Occult Blood Negative Urine Nitrite Negative Urine Bilirubin Negative Urine Urobilinogen Normal Ur Leukocyte Esterase Negative Urine RBC 0 SEEN Urine WBC 0 SEEN Ur Squamous Epith Cells 0 SEEN Urine Bacteria 0 SEEN Urine Mucus 0 SEEN Urine Opiates Screen POSITIVE H Urine Methadone Screen NEGATIVE Ur Barbiturates Screen NEGATIVE Ur Phencyclidine Scrn NEGATIVE Ur Amphetamines Screen NEGATIVE MDMA (Ecstasy) Screen NEGATIVE U Benzodiazepines Scrn NEGATIVE Urine Cocaine Screen NEGATIVE U Cannabinoids Screen NEGATIVE Ur Drug Screen Comment Ethyl Alcohol Radiography Chest X-Ray - ED: 1 View, Read by ED Physician, Read by Radiologist and No Acute Disease Diagnostic Testing: Clinical Impression(s) from Imaging Studies Brain CT 09/08/21 13:09 IMPRESSION: Chronic involutional changes of the brain. Electronically Signed: Can Person MD at 14:49 EDT Reading Location ID and State: [id number] / [employer] Tel , Service support , Chest X-Ray 09/08/21 13:15 IMPRESSION: No active disease. Electronically Signed: Can Person MD at 14:14 EDT Reading Location ID and State: [id number] / [employer] Tel , Service support , Abdomen/Pelvis CT 09/08/21 14:16 IMPRESSION: Cirrhosis with a large amount of ascites. Electronically Signed: Can Person MD at 16:21 EDT Reading Location ID and State: [id number] / [employer] Tel , Service support , Discharge Plan Dx/Rx/DC Orders Clinical Impression: Ascites, Hyperammonemia, Cirrhosis, Anemia, Hyponatremia, Failure to thrive in adult, Debility Disposition Disposition: Acute Care [facility]
--- NOTE | 2021-09-08 13:15 | RAD_ITS ---
STUDY: X-RAY CHEST REASON FOR EXAM: Male, 61 years old. shortness of breath TECHNIQUE: Single AP portable view of the chest. COMPARISON: 06/23/2020 FINDINGS: The lungs are clear and expanded. There is no demonstrated pleural abnormality. There is moderate cardiac enlargement. Normal mediastinum and emma. Normal visualized pulmonary arteries. Normal visualized aortic arch and descending thoracic aorta. Normal visualized thoracic spine. Normal visualized ribs, clavicles, and shoulders. There is no demonstrated abnormality of the visualized soft tissue structures of the upper abdomen. RAD/Chest 1 View (Portable) IMPRESSION: No active disease. Electronically Signed: Can Person MD at 14:14 EDT ,
[2021-09-08] MEDS: 0.9% Normal Saline 1,000 ML 1000 ML IV (13:44)
[2021-09-08 13:49] LABS: Absolute Lymphocyte Count 0.64 X10^3/uL (0.83-4.51); Absolute Neutrophil Count 11.7 X10^3/uL (2.0-7.7); Basophil# 0.01 X10^3/uL; Basophil% 0.1 % (0-1); Hematocrit 26.7 % (40-54); Hemoglobin 7.8 g/dL (13.0-16.5); Lymphocyte # 0.64 X10^3/ul (0.83-4.51); Mean Corp Hgb Conc 29.2 g/dL (32-36); Mean Corpuscular Hgb 23.3 pg (27.0-32.0); Mean Corpuscular Volume 79.7 fL (80-94); Mean Platelet Vol. 9.5 fl (6.2-12.0); Monocyte% 3.1 % (0-10); NRBC Flagged by Analyzer 0 % (0-5); Neutrophil # 11.68 X10^3/uL (2.7-7.7); Neutrophil % 91.2 % (47-70); Platelet Count 198 K/mm3 (150-450); RBC Distribution Width CV 18.8 % (11.6-14.6); RBC Distribution Width SD 53.7 fl (35.1-43.9); Red Blood Count 3.35 M/mm3 (4.6-6.2); White Blood Count 12.8 K/mm3 (4.4-11.0)
[2021-09-08 14:01] LABS: Bacteria 0 SEEN /hpf (None Seen); Mucous, Urine 0 SEEN /hpf (<or=2+); Red Blood Cells-Urine 0 SEEN /hpf (0-5); Squamous Epithelial Cells - UA 0 SEEN /hpf (0-5); White Blood Cells 0 SEEN /hpf (0-5)
[2021-09-08 14:02] LABS: Color, Urine Yellow (Yellow); Glucose, Dipstick Normal (Normal); Ketone-Dipstick 5 mg/dl (Negative); Leukocyte Esterase-Dipstick Negative /ul (Negative); Nitrite-Dipstick Negative (Negative); Occult Blood-Urine Negative /ul (Negative); Protein-Dipstick 30 mg/dl (Negative); Specific Gravity, Urine 1.015 (1.002-1.030); Urine Bilirubin Dipstick Negative (Negative); Urine Clarity Clear (Clear); Urine Urobilinogen Normal (Normal)
[2021-09-08 14:03] LABS: AST(SGOT) 140 U/L (15-37); Alanine Aminotransfer ALT/SGPT 127 U/L (16-61); Albumin, Serum 2.4 g/dL (3.2-5.0); Alkaline Phosphatase 258 U/L (45-117); Amylase 21 U/L (25-115); Anion Gap 10 (5-15); BUN 7 mg/dL (7-18); BUN/Creat Ratio 7.8 RATIO (10-20); Bilirubin, Direct 0.41 mg/dL (0.00-0.30); Calcium,Total 8.1 mg/dL (8.5-10.1); Chloride 94 mmol/L (98-107); Creatinine, Serum 0.89 mg/dL (0.70-1.30); EST Glomerular Filtration Rate 92 mL/min (>60); Est Glom Filt Rate - Afr Amer 111 mL/min (>60); Estimated Creatinine Clearance 78.65 ml/min; Globulin 4.2 g/dL (2.2-4.2); Glucose 114 mg/dL (74-106); Lipase 67 U/L (73-393); Potassium 3.5 mmol/L (3.5-5.1); Protein, Total 6.6 g/dL (6.4-8.2); Sodium Level 127 mmol/L (136-145); Troponin-I HS 18 pg/mL (3.0-78.0)
[2021-09-08 14:06] LABS: Alcohol, Blood (Medical)-Serum < 3.0 mg/dL
[2021-09-08 14:11] LABS: CPK Total, Creatine Kinase 89 U/L (39-308)
--- NOTE | 2021-09-08 14:16 | CT_ITS ---
STUDY: CT ABDOMEN AND PELVIS WITH CONTRAST REASON FOR EXAM: Male, 61 years old. abdominal pain RADIATION DOSAGE (If Supplied By Facility): CTDIvol = ( 14.84 ) mGy, DLP = ( 1111.16 ) mGycm TECHNIQUE: Transaxial images were obtained from the dome of the diaphragm to the symphysis pubis without oral contrast. IV 75mL [id number] was administered. Sagittal and coronal images were reconstructed. Individualized dose optimization techniques were used for this CT. COMPARISON: 06/18/2017 FINDINGS: The visualized lung bases are unremarkable. The visualized portions of the heart are within normal limits. Large amount of ascites. There is a diffuse contour abnormality of the liver consistent with cirrhotic changes. Normal gallbladder and extrahepatic biliary system. Normal spleen. Normal pancreas. Normal bilateral adrenal glands. Normal right kidney. Normal left kidney. Normal visualized stomach. Normal small intestine. Normal colon. There is non-visualization of the appendix. There is diffuse atherosclerotic calcification of the abdominal aorta, without a demonstrated aneurysm. Normal inferior vena cava. Normal retroperitoneum. Shields catheter within the collapsed bladder. Small bilateral inguinal hernias containing fat and fluid. Normal osseous structures. CT/Abdomen/Pelvis W IV Cont ONLY IMPRESSION: Cirrhosis with a large amount of ascites. Electronically Signed: Can Person MD at 16:21 EDT ,
[2021-09-08 14:21] LABS: Lactic Acid 1.6 mmol/L (0.4-1.9)
[2021-09-08 14:25] LABS: Amphetamine Urine VISTA NEGATIVE (<1000 ng/mL); Barbiturate Urine VISTA NEGATIVE (< 200 ng/mL); Benzodiazepine Urine VISTA NEGATIVE (< 200 ng/mL); Cocaine Urine VISTA NEGATIVE (< 300 ng/mL); Ecstacy Urine VISTA NEGATIVE (< 500 ng/mL); Methadone Urine VISTA NEGATIVE (< 300 ng/mL); PCP Urine VISTA NEGATIVE (< 25 ng/mL); THC Urine VISTA NEGATIVE (< 50 ng/mL); Vista UDS pH Range 5
[2021-09-08] MEDS: Lactulose 20 GM/30 ML UDC PO (14:46)
[2021-09-08 14:49] LABS: International Normalized Ratio 1.2; Prothrombin Time (Protime)PT. 15.3 SECONDS (11.7-14.9)
--- NOTE | 2021-09-08 15:07 | PCM.HP.STD ---
Documented by User: ROSSANA Johnston 09/08/21 15:34 HPI - General General Date of Admission: 09/08/21 Date of Service: 09/08/21 Chief Complaint: Weakness HPI Narrative LUCIO YOUSIF, is a 61 M who presents following a welfare check at his residence due to patient has not been in contact with anyone for a couple of days. Patient was found curled up in a ball under covers covered in feces and urine by police and told police that he had been ill for approximately 1 week. Of note patient was found with 2 buprenorphine patches on when he arrived to ER. Patient has a history of atrial fibrillation, GERD, CAD, COPD, hypertension, hyperlipidemia. Patient also reports that he drinks 4-5 12 ounce beers per day. Patient is lethargic although he will answer questions but his responses are delayed. REPLACED BY [facility] Medical History Afib Alcohol use Ankle fracture, left Ankle fracture, right CAD (coronary artery disease) COPD (chronic obstructive pulmonary disease) Diverticulosis Easy bruising Esophageal varices Excessive bleeding GERD (gastroesophageal reflux disease) Heart attack High cholesterol History of broken leg History of echocardiogram History of edema History of GI bleed History of liver failure History of renal failure HTN (hypertension) Hx of pancreatitis Loss of consciousness Psoriasis Smoker Stroke Uses wheelchair Walker as ambulation aid Home Medications clopidogrel 75 mg PO DAILY 09/10/16 [History Last Taken 09/10/16 08:00] folic acid 1 mg PO DAILY@0800 09/10/16 [History Last Taken 05/24/19] budesonide-formoterol 2 puff IH BID 04/25/19 [History Last Taken 05/25/19] cholecalciferol (vitamin D3) 2,000 unit PO DAILY 04/25/19 [History Last Taken Unknown] metoprolol tartrate 100 mg PO BID 05/25/19 [History Last Taken 05/25/19] amlodipine 5 mg PO BID 06/05/19 [History Last Taken Unknown] atorvastatin 80 mg PO QHS 06/05/19 [History Last Taken Unknown] albuterol sulfate 2 puff INHALATION Q4H PRN PRN #1 inhaler 06/16/19 [Rx Last Taken Unknown] thiamine HCl (vitamin B1) 100 mg PO DAILYCM #30 tab 06/16/19 [Rx Last Taken Unknown] buspirone 20 mg PO BID 11/03/19 [History Last Taken Unknown] tizanidine 4 mg PO QHS PRN 06/18/20 [History Last Taken Unknown] furosemide [Lasix] 40 mg PO DAILY #7 tab 10/09/20 [Rx Last Taken Unknown] acetaminophen 325 mg tablet 650 mg PO Q6H PRN PRN tab 10/25/20 [History Last Taken Unknown] buprenorphine 1 patch TRANSDERMAL FR 11/20/20 [History Last Taken Unknown] bupropion HCl 150 mg PO DAILY 11/20/20 [History Last Taken Unknown] citalopram 20 mg PO DAILY 11/20/20 [History Last Taken Unknown] magnesium oxide 400 mg PO DAILY 11/20/20 [History Last Taken Unknown] pantoprazole 20 mg PO BID 11/20/20 [History Last Taken Unknown] Allergy/AdvReac Type Severity Reaction Status Date / Time lisinopril Allergy Severe Angioedema Verified 09/08/21 12:59 bee venom protein (honey bee) Allergy Swelling Verified 09/08/21 12:59 Surgical History History of esophagogastroduodenoscopy (EGD) History of foot surgery History of intravascular stent placement Social History (Updated 09/08/21 @ 15:11 by ROSSANA Johnston) Smoking Status: Current every day smoker tobacco type: cigarettes alcohol intake: current alcohol intake frequency: 3 or more drinks per day Alcohol type: beer ROS Constitutional Constitutional: Reports chills, fatigue, malaise and weakness; Denies anorexia Cardiovascular Cardiovascular: Reports edema; Denies chest pain, palpitations or syncope Respiratory/Chest Respiratory/Chest: Denies cough, shortness of breath at rest, shortness of breath with exertion or wheezing Gastrointestinal Gastrointestinal: Reports abdominal pain, diarrhea, nausea and vomiting; Denies constipation Genitourinary Genitourinary: Denies dysuria Musculoskeletal Musculoskeletal: Reports back pain, extremity pain and joint pain Integumentary Integumentary: Denies dry skin Neurologic Neurologic: Reports weakness Psychiatric Psychiatric: Reports depression Endocrine Endocrinology: Denies change in body appearance Hematologic/Lymphatic Hematologic/Lymphatic: Reports anemia Vital Signs Vital Signs Vital Signs: 09/08/21 12:50 09/08/21 13:40 09/08/21 13:42 Temperature 98.8 F Temperature Source Temporal Pulse Rate 102 H 96 Respiratory Rate 20 H 16 Respiratory Effort Short of Breath Respiratory Pattern Normal Blood Pressure 157/83 H 160/86 H Blood Pressure Mean 107 110 Pulse Ox 100 96 Oxygen Delivery Method Room Air Room Air Weight Weight: 150 lb Body Mass Index (BMI) 24.2 Physical Exam Const General Appearance: lethargic and ill appearing Orientation / Consciousness: oriented to person, oriented to place, disoriented and lethargic HEENT normocephalic and head/scalp atraumatic Eyes conjunctivae normal and no scleral icterus Neck supple General: trachea midline Resp normal respiratory effort, normal air movement and clear to auscultation bilaterally Cardio regular rate, regular rhythm, S1 normal heart sound, S2 normal heart sound and peripheral pulses 2+ throughout GI Auscultation: normoactive bowel sounds Palpation: soft and tender Extremity normal capillary refill General Extremity: edema bilateral lower extremity Details: mild and no tenderness to palpation of joints or extremities Skin General Skin Exam: turgor normal Neuro no focal motor deficits and no sensory deficits noted Motor Exam: general weakness Psych Appearance: unkempt and disheveled Attitude: bizarre Mood & Affect: flat affect Results Lab / Micro Data Result Diagrams: 09/08/21 13:26 09/08/21 13:26 Labs: Laboratory Results - last 24 hr 09/08/21 13:26: Ethyl Alcohol < 3.0 09/08/21 13:26: Ammonia 53.0 H 09/08/21 13:26: WBC 12.8 H, RBC 3.35 L, Hgb 7.8 L, Hct 26.7 L, MCV 79.7 L, MCH 23.3 L, MCHC 29.2 L, RDW Std Deviation 53.7 H, RDW Coeff of Donnie 18.8 H, Plt Count 198, MPV 9.5, Immature Gran % (Auto) 0.600, Neut % (Auto) 91.2 H, Lymph % (Auto) 5.0 L, [place] % (Auto) 3.1, Eos % (Auto) 0.0, Baso % (Auto) 0.1, Absolute Neuts (auto) 11.7 H, Absolute Lymphs (auto) 0.64 L, Nucleated RBC % 0 09/08/21 13:26: Sodium 127 L, Potassium 3.5, Chloride 94 L, Carbon Dioxide 23.0, Anion Gap 10, BUN 7, Creatinine 0.89, Estim Creat Clear Calc 78.65, Est GFR (MDRD) Af Amer 111, Est GFR (MDRD) Non-Af 92, BUN/Creatinine Ratio 7.8 L, Glucose 114 H, Calcium 8.1 L, Total Bilirubin 0.70, Direct Bilirubin 0.41 H, AST 140 H, ALT 127 H, Alkaline Phosphatase 258 H, Troponin I High Sens 18, Total Protein 6.6, Albumin 2.4 L, Globulin 4.2, Amylase 21 L, Lipase 67 L 09/08/21 13:26: Total Creatine Kinase 89 09/08/21 13:30: Lactic Acid 1.6 09/08/21 13:30: PT 15.3 H, INR 1.2 09/08/21 13:50: Urine Opiates Screen POSITIVE H, Urine Methadone Screen NEGATIVE, Ur Barbiturates Screen NEGATIVE, Ur Phencyclidine Scrn NEGATIVE, Ur Amphetamines Screen NEGATIVE, MDMA (Ecstasy) Screen NEGATIVE, U Benzodiazepines Scrn NEGATIVE, Urine Cocaine Screen NEGATIVE, U Cannabinoids Screen NEGATIVE, Ur Drug Screen Comment 09/08/21 13:50: Urine Color Yellow, Urine Clarity Clear, Urine pH 6.0, Ur Specific [place] 1.015, Urine Protein 30 H, Urine Glucose (UA) Normal, Urine Ketones 5 H, Urine Occult Blood Negative, Urine Nitrite Negative, Urine Bilirubin Negative, Urine Urobilinogen Normal, Ur Leukocyte Esterase Negative, Urine RBC 0 SEEN, Urine WBC 0 SEEN, Ur Squamous Epith Cells 0 SEEN, Urine Bacteria 0 SEEN, Urine Mucus 0 SEEN Micro: Microbiology 09/08/21 13:30 Nasal Secretion SARS-CoV-2 & FLU Antigen (Rapid) - Final Radiology Impression Brain CT 09/08/21 13:09 IMPRESSION: Chronic involutional changes of the brain. Electronically Signed: Can Person MD at 14:49 EDT , Chest X-Ray 09/08/21 13:15 IMPRESSION: No active disease. Electronically Signed: Can Person MD at 14:14 EDT , Assessment & Plan Assessment/Plan (1) Debility: (2) Alcohol abuse: (3) Failure to thrive in adult: (4) Hyponatremia: (5) Hypochloremia: (6) Hyperammonemia: PLAN: 1. Gastritis -Admit to MedSurg -Patient reports diarrhea and abdominal pain, CT abdomen pending -IV Protonix ordered -As needed medications for nausea vomiting and diarrhea ordered 2. Failure to Thrive -Consult social work and case management as patient lives at home alone and cannot take care of himself -PT and OT to eval and treat -Magnesium and phosphorus stat -CBC, CMP, magnesium, phosphorus in a.m. -Maintain urinary catheter 2. Hyperammonemia -Patient received lactulose 20 g p.o. x1 in ER -Lactulose 20 g p.o. twice daily -Daily CMP 3. Hyponatremia and hypochloremia -Likely secondary to alcohol use -Normal saline 75 mL/h -Daily CMP 4. Acute on chronic anemia -Patient is chronically anemic hemoglobin baseline 8.0-9.0 -Currently 7.8 -Hemoglobin and hematocrit every 6 hours x2 -CBC in a.m. -Type and screen ordered 5. Alcohol abuse -Patient is reportedly a 4-5 12 ounce beer drinker a day -Phenobarbital taper ordered -Protocol along with supportive medications including thiamine and folic acid 6. Tobacco abuse -Nicotine patch ordered Will continue medications for chronic diseases including depression, hypertension, GERD, chronic back pain, hyperlipidemia, A. fib as appropriate once verified. DVT prophylaxis-SCDs This patient was seen by Sandra Pemberton NP-C under the supervision of Dr. Wick. 30 minutes spent in clinical coordination of patient's plan of care. Documented by User: Dr. Prachi Wick MD 09/08/21 16:43 REPLACED BY [facility] Medical History Afib Alcohol use Ankle fracture, left Ankle fracture, right CAD (coronary artery disease) COPD (chronic obstructive pulmonary disease) Diverticulosis Easy bruising Esophageal varices Excessive bleeding GERD (gastroesophageal reflux disease) Heart attack High cholesterol History of broken leg History of echocardiogram History of edema History of GI bleed History of liver failure History of renal failure HTN (hypertension) Hx of pancreatitis Loss of consciousness Psoriasis Smoker Stroke Uses wheelchair Walker as ambulation aid Home Medications clopidogrel 75 mg PO DAILY 09/10/16 [History Last Taken 09/10/16 08:00] folic acid 1 mg PO DAILY@0800 09/10/16 [History Last Taken 05/24/19] budesonide-formoterol 2 puff IH BID 04/25/19 [History Last Taken 05/25/19] cholecalciferol (vitamin D3) 2,000 unit PO DAILY 04/25/19 [History Last Taken Unknown] metoprolol tartrate 100 mg PO BID 05/25/19 [History Last Taken 05/25/19] amlodipine 5 mg PO BID 06/05/19 [History Last Taken Unknown] atorvastatin 80 mg PO QHS 06/05/19 [History Last Taken Unknown] albuterol sulfate 2 puff INHALATION Q4H PRN PRN #1 inhaler 06/16/19 [Rx Last Taken Unknown] thiamine HCl (vitamin B1) 100 mg PO DAILYCM #30 tab 06/16/19 [Rx Last Taken Unknown] buspirone 20 mg PO BID 11/03/19 [History Last Taken Unknown] tizanidine 4 mg PO QHS PRN 06/18/20 [History Last Taken Unknown] furosemide [Lasix] 40 mg PO DAILY #7 tab 10/09/20 [Rx Last Taken Unknown] acetaminophen 325 mg tablet 650 mg PO Q6H PRN PRN tab 10/25/20 [History Last Taken Unknown] buprenorphine 1 patch TRANSDERMAL FR 11/20/20 [History Last Taken Unknown] bupropion HCl 150 mg PO DAILY 11/20/20 [History Last Taken Unknown] citalopram 20 mg PO DAILY 11/20/20 [History Last Taken Unknown] magnesium oxide 400 mg PO DAILY 11/20/20 [History Last Taken Unknown] pantoprazole 20 mg PO BID 11/20/20 [History Last Taken Unknown] Allergy/AdvReac Type Severity Reaction Status Date / Time lisinopril Allergy Severe Angioedema Verified 09/08/21 12:59 bee venom protein (honey bee) Allergy Swelling Verified 09/08/21 12:59 Surgical History History of esophagogastroduodenoscopy (EGD) History of foot surgery History of intravascular stent placement Social History (Updated 09/08/21 @ 15:11 by Sandra Pemberton NP-C) Smoking Status: Current every day smoker tobacco type: cigarettes alcohol intake: current alcohol intake frequency: 3 or more drinks per day Alcohol type: beer Results Lab / Micro Data Result Diagrams: 09/08/21 13:26 09/08/21 13:26 Charges/Coding Addendum Addendum: This patient was seen in conjunction with Manuel Pemberton NP. I have independently interviewed and examined the patient and reviewed pertinent historical, laboratory, and other data. I have reviewed her note and concur with her documentation 59-year-old male with past medical history of chronic alcohol abuse, anxiety/depression, chronic back pain with left-sided sciatica from large L3-L4 disc herniation who comes in with generalized weakness. The EMS/police with called to his house for generalized weakness. He admits to feeling unwell for 7 days. He said he has chronic diarrhea. He denied any nausea but admits to some vomiting. Denied any fever chills or sick contact. Patient is a poor historian. He denied any chest pain. He admits to generalized body aches. Physical Exam: Gen: Appears lethargic, very pale, not jaundiced, moderately dehydrated CVS:HS I +II, regular, no murmurs RESP: Diminished at lung bases GI: Distended ascites++, BS present and normal, soft, nontender, no palpable organs EXT: Bilateral pedal edema +1 Labs: ASSESSMENT: 1. Acute on chronic debility 2. Acute on chronic low back pain 3. Severe anemia 5. Hypomagnesemia/hypophosphatemia/hyponatremia 4. Alcohol abuse/alcoholic liver disease/liver cirrhosis 5. Nicotine dependence 6. Anxiety/depression/agoraphobia 7. History of CVA, bilateral carotid stenosis 8. Hypertensive urgency 9. Severe protein calorie malnutrition Plan: Admit to MedSurg Replace electrolyte Trend H&H, type and screen Stool for occult blood Lactulose PT/OT to evaluate and treat Nutrition consult Resume home blood pressure medications Time spent taking history, physical examining patient, reviewing patient's data, medical chart ,coordinating all aspects of patient's care, discussing with nursin minutes Visit Charges Inpatient E&M: 88826 Init Hosp L3
[2021-09-08 15:49] LABS: Magnesium 1.3 mg/dL (1.6-2.6); Phosphorus 1.6 mg/dL (2.5-4.9)
--- NOTE | 2021-09-08 16:40 | NURSING ---
MED SURG [facility] HEPATIC ENCEPHALOPATHY, ANEMIA, ASCITES
[2021-09-08 18:00] LABS: Hematocrit 26.6 % (40-54); Hemoglobin 7.8 g/dL (13.0-16.5)
[2021-09-08] MEDS: Magnesium Sulfate 4gm/100mL 4 GM/100 ML IV.SOLN. IV (18:01)
[2021-09-08] MEDS: 0.9% Normal Saline 1,000 ML 75 ML IV (18:02)
[2021-09-08] MEDS: 0.9% Saline Lock 10 ML Syringe IV (18:03)
[2021-09-08] MEDS: Phenobarbital 32.4 MG Tablet 97.2 MG PO (18:05)
[2021-09-08] MEDS: Albuterol 2.5 MG/3 ML VIAL.NEB. INHALATION (19:56)
[2021-09-08] MEDS: Budesonide Respules 0.5 MG/2 ML AMPUL.NEB. INHALATION (19:56)
--- NOTE | 2021-09-08 21:53 | PCM.PN.BLA ---
Progress Note Nurse reported that patient aspirated on p.o. and has been made n.p.o. with speech consult. Reportedly patient lungs is rhonchorous and he is having tachycardia in the 120s. Patient on p.o. metoprolol p.o. Change p.o. metoprolol to IV. Change p.o. phenobarbital to IV. Get chest x-ray.
[2021-09-08] MEDS: Metoprolol Tartrate 5 MG/5 ML Vial IV (22:23)
--- NOTE | 2021-09-08 22:27 | RAD_ITS ---
STUDY: X-RAY CHEST REASON FOR EXAM: Male, 61 years old. SOB TECHNIQUE: Frontal view COMPARISON: 09/08/2021 1:15 PM. FINDINGS: The lungs are clear and expanded. There is no demonstrated pleural abnormality. Normal size heart. Normal mediastinum and emma. Normal visualized pulmonary arteries. Normal visualized aortic arch and descending thoracic aorta. Normal visualized thoracic spine. Normal visualized ribs, clavicles, and shoulders. There is no demonstrated abnormality of the visualized soft tissue structures of the upper abdomen. Stable findings. RAD/Chest 1 View (Portable) IMPRESSION: Normal x-ray examination of the chest. Electronically Signed: Catalino Andres MD, ELYSSA at 23:00 EDT ,
[2021-09-08] MEDS: Phenobarbital Sodium 65 MG/ML Vial 32.4 MG IV (22:41)
[2021-09-08 23:53] LABS: Hematocrit 25.9 % (40-54); Hemoglobin 7.6 g/dL (13.0-16.5)
[2021-09-09] VITALS (25 sets, daily range): BP systolic 142–176; BP diastolic 75–99; PULSE 100–135; RESP 14–20; TEMP 36.3–37.1; O2SAT 95–100
[2021-09-09] MEDS: Metoprolol Tartrate 5 MG/5 ML Vial IV ×4 (02:08→14:45)
[2021-09-09] MEDS: Phenobarbital Sodium 65 MG/ML Vial 32.4 MG IV ×6 (02:17→21:49)
[2021-09-09 06:23] LABS: Absolute Lymphocyte Count 0.93 X10^3/uL (0.83-4.51); Absolute Neutrophil Count 12.6 X10^3/uL (2.0-7.7); Basophil# 0.01 X10^3/uL; Basophil% 0.1 % (0-1); Eosinophil# 0.01 X10^3/uL; Eosinophils% 0.1 % (0-5); Hematocrit 24.2 % (40-54); Hemoglobin 7.1 g/dL (13.0-16.5); Lymphocyte # 0.93 X10^3/ul (0.83-4.51); Lymphocyte % 6.4 % (19-41); Mean Corp Hgb Conc 29.3 g/dL (32-36); Mean Corpuscular Hgb 23.4 pg (27.0-32.0); Mean Corpuscular Volume 79.6 fL (80-94); Mean Platelet Vol. 9.4 fl (6.2-12.0); Monocyte# 0.73 X10^3/uL; Monocyte% 5.1 % (0-10); NRBC Flagged by Analyzer 0.2 % (0-5); Neutrophil # 12.62 X10^3/uL (2.7-7.7); Neutrophil % 87.4 % (47-70); Platelet Count 181 K/mm3 (150-450); RBC Distribution Width CV 19.7 % (11.6-14.6); RBC Distribution Width SD 55.7 fl (35.1-43.9); Red Blood Count 3.04 M/mm3 (4.6-6.2); White Blood Count 14.4 K/mm3 (4.4-11.0)
[2021-09-09 06:58] LABS: ALB/GLOB Ratio 0.6 RATIO (0.9-2.4); AST(SGOT) 78 U/L (15-37); Alanine Aminotransfer ALT/SGPT 95 U/L (16-61); Albumin, Serum 2.3 g/dL (3.2-5.0); Alkaline Phosphatase 233 U/L (45-117); Anion Gap 9 (5-15); BUN 6 mg/dL (7-18); BUN/Creat Ratio 7.9 RATIO (10-20); Calcium,Total 7.6 mg/dL (8.5-10.1); Chloride 99 mmol/L (98-107); Creatinine, Serum 0.76 mg/dL (0.70-1.30); EST Glomerular Filtration Rate 110 mL/min (>60); Est Glom Filt Rate - Afr Amer 134 mL/min (>60); Estimated Creatinine Clearance 92.11 ml/min; Globulin 3.7 g/dL (2.2-4.2); Glucose 106 mg/dL (74-106); Phosphorus 2.8 mg/dL (2.5-4.9); Potassium 3.4 mmol/L (3.5-5.1); Sodium Level 130 mmol/L (136-145)
[2021-09-09] MEDS: Albuterol 2.5 MG/3 ML VIAL.NEB. INHALATION (07:14)
[2021-09-09] MEDS: Budesonide Respules 0.5 MG/2 ML AMPUL.NEB. INHALATION ×2 (07:14→19:10)
--- NOTE | 2021-09-09 08:44 | PCM.PN.HOSP ---
Documented by User: Sandra Pemberton NP-C 09/09/21 08:52 Subjective Subjective Patient seen and examined. Patient lying in bed eyes closed no distress noted. Patient states that he just feels awful and wants to rest. Objective Data Objective Data Vital Signs: Vital Signs Temp Pulse Resp BP Pulse Ox 97.8 F 104 H 20 H 162/83 H 100 09/09/21 06:13 09/09/21 07:16 09/09/21 07:16 09/09/21 06:13 09/09/21 06:13 Oxygen Delivery Method Room Air Weight: 160 lb Body Mass Index (BMI) 25.8 Intake & Output: Intake and Output for Last 24 Hours 09/07/21 09/08/21 09/09/21 23:59 23:59 23:59 Intake Total 1516.63 / 1516.63 228.9533 / 228.9533 Output Total 350 / 550 450 / 450 Balance 1166.63 / 966.63 -221.0467 / -221.0467 Lab / Micro Data Result Diagrams: 09/09/21 05:56 09/09/21 05:56 Labs: Laboratory Results - last 24 hr 09/08/21 13:26: Ethyl Alcohol < 3.0 09/08/21 13:26: Ammonia 53.0 H 09/08/21 13:26: WBC 12.8 H, RBC 3.35 L, Hgb 7.8 L, Hct 26.7 L, MCV 79.7 L, MCH 23.3 L, MCHC 29.2 L, RDW Std Deviation 53.7 H, RDW Coeff of Donnie 18.8 H, Plt Count 198, MPV 9.5, Immature Gran % (Auto) 0.600, Neut % (Auto) 91.2 H, Lymph % (Auto) 5.0 L, [place] % (Auto) 3.1, Eos % (Auto) 0.0, Baso % (Auto) 0.1, Absolute Neuts (auto) 11.7 H, Absolute Lymphs (auto) 0.64 L, Nucleated RBC % 0 09/08/21 13:26: Sodium 127 L, Potassium 3.5, Chloride 94 L, Carbon Dioxide 23.0, Anion Gap 10, BUN 7, Creatinine 0.89, Estim Creat Clear Calc 78.65, Est GFR (MDRD) Af Amer 111, Est GFR (MDRD) Non-Af 92, BUN/Creatinine Ratio 7.8 L, Glucose 114 H, Calcium 8.1 L, Total Bilirubin 0.70, Direct Bilirubin 0.41 H, AST 140 H, ALT 127 H, Alkaline Phosphatase 258 H, Troponin I High Sens 18, Total Protein 6.6, Albumin 2.4 L, Globulin 4.2, Amylase 21 L, Lipase 67 L 09/08/21 13:26: Total Creatine Kinase 89 09/08/21 13:26: Phosphorus 1.6 L, Magnesium 1.3 L 09/08/21 13:30: Lactic Acid 1.6 09/08/21 13:30: PT 15.3 H, INR 1.2 09/08/21 13:50: Urine Opiates Screen POSITIVE H, Urine Methadone Screen NEGATIVE, Ur Barbiturates Screen NEGATIVE, Ur Phencyclidine Scrn NEGATIVE, Ur Amphetamines Screen NEGATIVE, MDMA (Ecstasy) Screen NEGATIVE, U Benzodiazepines Scrn NEGATIVE, Urine Cocaine Screen NEGATIVE, U Cannabinoids Screen NEGATIVE, Ur Drug Screen Comment 09/08/21 13:50: Urine Color Yellow, Urine Clarity Clear, Urine pH 6.0, Ur Specific [place] 1.015, Urine Protein 30 H, Urine Glucose (UA) Normal, Urine Ketones 5 H, Urine Occult Blood Negative, Urine Nitrite Negative, Urine Bilirubin Negative, Urine Urobilinogen Normal, Ur Leukocyte Esterase Negative, Urine RBC 0 SEEN, Urine WBC 0 SEEN, Ur Squamous Epith Cells 0 SEEN, Urine Bacteria 0 SEEN, Urine Mucus 0 SEEN 09/08/21 14:15: Blood Type O POSITIVE, Antibody Screen NEGATIVE 09/08/21 17:54: Hgb 7.8 L, Hct 26.6 L 09/08/21 23:47: Hgb 7.6 L, Hct 25.9 L 09/09/21 05:56: WBC 14.4 H, RBC 3.04 L, Hgb 7.1 L, Hct 24.2 L, MCV 79.6 L, MCH 23.4 L, MCHC 29.3 L, RDW Std Deviation 55.7 H, RDW Coeff of Donnie 19.7 H, Plt Count 181, MPV 9.4, Immature Gran % (Auto) 0.900, Neut % (Auto) 87.4 H, Lymph % (Auto) 6.4 L, [place] % (Auto) 5.1, Eos % (Auto) 0.1, Baso % (Auto) 0.1, Absolute Neuts (auto) 12.6 H, Absolute Lymphs (auto) 0.93, Nucleated RBC % 0.2 09/09/21 05:56: Sodium 130 L, Potassium 3.4 L, Chloride 99, Carbon Dioxide 22.0, Anion Gap 9, BUN 6 L, Creatinine 0.76, Estim Creat Clear Calc 92.11, Est GFR (MDRD) Af Amer 134, Est GFR (MDRD) Non-Af 110, BUN/Creatinine Ratio 7.9 L, Glucose 106, Calcium 7.6 L, Phosphorus 2.8, Magnesium 2.0, Total Bilirubin 0.70, AST 78 H, ALT 95 H, Alkaline Phosphatase 233 H, Total Protein 6.0 L, Albumin 2.3 L, Globulin 3.7, Albumin/Globulin Ratio 0.6 L Micro: Microbiology 09/08/21 14:15 Stool Stool Occult Blood (OLAYINKA) - Final Occult Blood Positive 09/08/21 13:30 Nasal Secretion SARS-CoV-2 & FLU Antigen (Rapid) - Final Radiography Diagnostic Testing: Radiology Impression Brain CT 09/08/21 13:09 IMPRESSION: Chronic involutional changes of the brain. Electronically Signed: Can Person MD at 14:49 EDT Reading Location ID and State: Lost My Name / [employer] , Service support , Chest X-Ray 09/08/21 13:15 IMPRESSION: No active disease. Electronically Signed: Can Person MD at 14:14 EDT Reading Location ID and State: [id number] / [employer] , Service support , Abdomen/Pelvis CT 09/08/21 14:16 IMPRESSION: Cirrhosis with a large amount of ascites. Electronically Signed: Can Person MD at 16:21 EDT Reading Location ID and State: [employer] / [employer] , Service support , Chest X-Ray 09/08/21 22:27 IMPRESSION: Normal x-ray examination of the chest. Electronically Signed: Catalino Andres MD, ELYSSA at 23:00 EDT , Physical Exam Const General Appearance: lethargic Orientation / Consciousness: oriented to person, oriented to place and lethargic HEENT normocephalic and head/scalp atraumatic Head and Scalp: normocephalic Eyes conjunctivae normal and no scleral icterus Neck supple General: trachea midline Resp normal respiratory effort, normal air movement and clear to auscultation bilaterally Cardio regular rate, regular rhythm, S1 normal heart sound, S2 normal heart sound and peripheral pulses 2+ throughout GI Auscultation: normoactive bowel sounds Palpation: soft and tender Extremity normal capillary refill General Extremity: edema bilateral lower extremity Details: mild and no tenderness to palpation of joints or extremities Skin General Skin Exam: turgor normal Neuro no focal motor deficits and no sensory deficits noted Motor Exam: general weakness Psych Appearance: unkempt and disheveled Attitude: bizarre Mood & Affect: flat affect Assessment & Plan Assessment/Plan (1) Debility: (2) Alcohol abuse: (3) Failure to thrive in adult: (4) Hyponatremia: (5) Hypochloremia: (6) Hyperammonemia: PLAN: 1. Gastritis -Patient reports diarrhea and abdominal pain, CT abdomen pending -IV Protonix ordered -As needed medications for nausea vomiting and diarrhea ordered -Occult blood positive stool -GI consulted 2. Failure to Thrive -Consult social work and case management as patient lives at home alone and cannot take care of himself -PT and OT to eval and treat -Maintain urinary catheter -Patient failed swallow evaluation at bedside, ST consulted 2. Hyperammonemia -Patient received lactulose 20 g p.o. x1 in ER -Lactulose 20 g p.o. twice daily -Daily CMP 3. Hyponatremia and hypochloremia -Sodium improved from 127-130. hypochloremia resolved, 99 -Likely secondary to alcohol use -Normal saline 75 mL/h -Daily CMP 4. Acute on chronic anemia -Patient is chronically anemic hemoglobin baseline 8.0-9.0 -Hemoglobin 09/09/2021 7.1, 1 unit packed red blood cells ordered -CBC daily 5. Alcohol abuse -Patient is reportedly a 4-5 12 ounce beer drinker a day -Phenobarbital taper ordered -Protocol along with supportive medications including thiamine and folic acid 6. Tobacco abuse -Nicotine patch ordered Will continue medications for chronic diseases including depression, hypertension, GERD, chronic back pain, hyperlipidemia, A. fib as appropriate once verified. DVT prophylaxis-SCDs This patient was seen by Sandra Pemberton NP-C under the supervision of Dr. Wick. 14 minutes spent in clinical coordination of patient's plan of care. Documented by User: Dr. Prachi Wick MD 09/09/21 13:01 Objective Data Lab / Micro Data Result Diagrams: 09/09/21 05:56 09/09/21 05:56 Charges/Coding Addendum Addendum: This patient was seen in conjunction with Manuel Pemberton NP. I have independently interviewed and examined the patient and reviewed pertinent historical, laboratory, and other data. I have reviewed her note and concur with her documentation Patient was seen and examined. Remains confused. He had a couple of bowel movements overnight. He failed his swallow exam last night. His phenobarbital and metoprolol were switched to IV. Patient passed a swallow test this morning. Physical Exam: Gen: Appears lethargic, very pale, not jaundiced, mildly dehydrated CVS:HS I +II, regular, no murmurs RESP: Diminished at lung bases GI: Distended ascites++, BS present and normal, soft, nontender, no palpable organs EXT: Bilateral pedal edema +1 ASSESSMENT: 1. Acute on chronic debility 2. Acute on chronic low back pain 3. Severe anemia 5. Hypomagnesemia/hypophosphatemia/hyponatremia 4. Alcohol abuse/alcoholic liver disease/liver cirrhosis 5. Nicotine dependence 6. Anxiety/depression/agoraphobia 7. History of CVA, bilateral carotid stenosis 8. Hypertensive urgency 9. Severe protein calorie malnutrition Plan: Continue lactulose, Transfuse 1 unit of pRBC Continue on IV phenobarbital and IV metoprolol Repeat blood work in am Diagnostic and therapeutic paracentesis Time spent taking coordinating all aspects of patient's care, discussing with nursin minutes Visit Charges Inpatient E&M: 62185 Subs Hosp L2
[2021-09-09] MEDS: Potassium Chloride 10mEq/100mL 10 MEQ/100 ML IV.SOLN. 100 MEQ IV BOLUS ×2 (08:58→10:56)
[2021-09-09] MEDS: Furosemide 40 MG/4 ML Vial IV (09:11)
[2021-09-09] MEDS: 0.9% Saline Lock 10 ML Syringe IV ×3 (09:11→17:52)
[2021-09-09] MEDS: Lactulose 20 GM/30 ML UDC PO ×2 (11:21→21:49)
[2021-09-09] MEDS: amLODIPine 5 MG Tablet PO (11:41)
[2021-09-09] MEDS: Clopidogrel Bisulfate 75 MG Tablet PO (11:42)
--- NOTE | 2021-09-09 15:46 | CON.PCM_ITS ---
Assessment & Plan Assessment/Plan (1) Hyperammonemia: PLAN: Hyperammonemia likely from decompensated liver disease. Also it could be from GI bleed as it can cause elevated ammonia and LDH which we will order. He is getting lactulose 20 cc every 12 hours. We will need to increase that to every 6 hours. (2) Esophageal varices determined by endoscopy: PLAN: Patient has not had an upper endoscopy since he was identified as having esophageal varices back in 2014 and he has not had banding procedure done. He he will need to have an upper endoscopy to evaluate if he has es ophageal varices, gastric varices, duodenal varices as a source of upper GI bleedHe needs to undergo an upper endoscopy for evaluation of his upper GI tract. (3) Cirrhosis: PLAN: Alcoholic cirrhosis thought to be the main cause of his end-stage liver disease. I will need to get an INR, PT, PTT in order to calculate his meld. He does not have an alcohol level drawn we will need to check that in his urine. This is in order to calculate a Madrey score to see if he needs to toxic filing on steroids. Right now he is decompensated due to the fact that he has ascites. We will have to give him ceftriaxone 1 g every 24 hours for possible GI bleed in the setting of ascites. With his blood pressure elevated he should be on beta-ran therapy as protection for esophageal variceal bleeding and further possible oozing from the GI tract. (4) Anemia: PLAN: His anemia is multifactorial. I know he has iron deficiency anemia due to low ferritin count that was previously drawn. He also is at risk for B12 and folic acid deficiency due to alcoholism and cirrhosis. I would transfuse to keep hematocrit greater than 30% to 35%. I do not have any documentation of a colonoscopy and GI blood loss from malignancy is also a possibility along with arteriovenous malformations and definitely ulcerations anywhere in the GI tract secondary to Excedrin usage that the patient admits to from chronic migraine disorder. HPI Consult Data Date of Consult: 09/09/21 HPI Narrative HPI Narrative: LUCIO YOUSIF, is a 61 M with past medical history of alcoholic cirrhosis complicated by thrombocytopenia, esophageal varices, iron deficiency anemia. He does not know if he is undergoing esophageal banding or if he has been assessed for duodenal varices or gastric varices. He also history of a non-ST segment elevation LA in 07/02/2020. He is status post PTCA with stent that was placed back in 2016. He does take Plavix on a daily basis. He has a history of COPD and is not on home oxygen and paroxysmal atrial fibrillation not on anticoagulation. Patient presented to the emergency room via EMS. He was found curled up in a ball under covers covered in feces and urine by police and told police that he had been ill for approximately 1 week. Of note patient was found with 2 buprenorphine patches on when he arrived to ER. Patient has a history of atrial fibrillation, GERD, CAD, COPD, hypertension, hyperlipidemia. While mid to the hospital the nurse reported that patient aspirated on p.o. and has been made n.p.o. with speech consult. Reportedly patient lungs is rhonchorous and he is having tachycardia in the 120s. Patient on p.o. metoprolol p.o. Change p.o. metoprolol to IV. Change p.o. phenobarbital to IV. Chest x-ray did not show any signs of aspiration pneumonia. He had a CT scan of the abdomen pelvis on admission and it showed large volume ascites with a cirrhotic liver and splenomegaly. On admission his hemoglobin was 7.8 and is down to 7.1 this morning. His ammonia is elevated at 78. He is still on antiplatelet therapy. He denies any melanotic stool. [facility] Medical History Afib Alcohol use Ankle fracture, left Ankle fracture, right CAD (coronary artery disease) COPD (chronic obstructive pulmonary disease) Diverticulosis Easy bruising Esophageal varices Excessive bleeding GERD (gastroesophageal reflux disease) Heart attack High cholesterol History of broken leg History of echocardiogram History of edema History of GI bleed History of liver failure History of renal failure HTN (hypertension) Hx of pancreatitis Loss of consciousness Psoriasis Smoker Stroke Uses wheelchair Walker as ambulation aid Home Medications clopidogrel 75 mg PO DAILY 09/10/16 [History Last Taken 09/10/16 08:00] folic acid 1 mg PO DAILY@0800 09/10/16 [History Last Taken 05/24/19] budesonide-formoterol 2 puff IH BID 04/25/19 [History Last Taken 05/25/19] cholecalciferol (vitamin D3) 2,000 unit PO DAILY 04/25/19 [History Last Taken Unknown] metoprolol tartrate 100 mg PO BID 05/25/19 [History Last Taken 05/25/19] amlodipine 5 mg PO BID 06/05/19 [History Last Taken Unknown] atorvastatin 80 mg PO QHS 06/05/19 [History Last Taken Unknown] albuterol sulfate 2 puff INHALATION Q4H PRN PRN #1 inhaler 06/16/19 [Rx Last Taken Unknown] thiamine HCl (vitamin B1) 100 mg PO DAILYCM #30 tab 06/16/19 [Rx Last Taken Unknown] buspirone 20 mg PO BID 11/03/19 [History Last Taken Unknown] tizanidine 4 mg PO QHS PRN 06/18/20 [History Last Taken Unknown] furosemide [Lasix] 40 mg PO DAILY #7 tab 10/09/20 [Rx Last Taken Unknown] acetaminophen 325 mg tablet 650 mg PO Q6H PRN PRN tab 10/25/20 [History Last Taken Unknown] bupropion HCl 150 mg PO DAILY 11/20/20 [History Last Taken Unknown] citalopram 20 mg PO DAILY 11/20/20 [History Last Taken Unknown] magnesium oxide 400 mg PO DAILY 11/20/20 [History Last Taken Unknown] pantoprazole 20 mg PO BID 11/20/20 [History Last Taken Unknown] buprenorphine 1 patch TRANSDERMAL FR 09/09/21 [History Last Taken 09/07/21] Allergy/AdvReac Type Severity Reaction Status Date / Time lisinopril Allergy Severe Angioedema Verified 09/08/21 12:59 bee venom protein (honey bee) Allergy Swelling Verified 09/08/21 12:59 Surgical History History of esophagogastroduodenoscopy (EGD) History of foot surgery History of intravascular stent placement Social History (Updated 09/08/21 @ 15:11 by CORNELIO JohnstonC) Smoking Status: Current every day smoker tobacco type: cigarettes alcohol intake: current alcohol intake frequency: 3 or more drinks per day Alcohol type: beer ROS Review of Systems ROS Unobtainable: other Constitutional Constitutional: Denies fatigue, fever(s), poor appetite, weight gain or weight loss ENT HEENT: Denies mouth lesions Cardiovascular Cardiovascular: Denies abdominal bloating, abdominal edema or abdominal pain Respiratory/Chest Respiratory/Chest: Reports dry cough Gastrointestinal Gastrointestinal: Denies belching, bloating, change in bowel habits, change in stool character, chewing difficulty, coffee ground emesis, constipation, cramping, diarrhea, dyspepsia, dysphagia, early satiety, excessive flatus, fecal incontinence, heartburn, hematemesis, hematochezia, hemorrhoids, loose stools, melena, nausea, odynophagia, rectal bleeding, tenesmus, vomiting or weight changes Genitourinary Genitourinary: Denies abdominal discomfort, burning urination or itching Musculoskeletal Musculoskeletal: Reports as per HPI; Denies muscle weakness or myalgias Integumentary Integumentary: Denies jaundice Neurologic Neurologic: Denies lack of coordination or weakness Psychiatric Psychiatric: Denies confusion, depression, memory loss, mood swings, paranoia or suicidal ideation Endocrine Endocrinology: Denies systems reviewed and no addt'l complaints, except as documented Hematologic/Lymphatic Hematologic/Lymphatic: Denies anemia, easy bleeding, easy bruising or lymphadenopathy Allergic/Immunologic Allergic/Immunologic: Denies systems reviewed and no addt'l complaints, except as documented Physical Exam Const alert General Appearance: cooperative Orientation / Consciousness: oriented to person HEENT hearing grossly normal bilaterally Head and Scalp: normal to inspection Face and Sinus: face symmetric Nose: external nose normal Mouth: oral and palatal mucosa normal Eyes conjunctivae normal General Eye: normal appearance of both eyes Neck full ROM General: normal visual inspection Lymph Lymphatic: no lymphadenopathy noted Chest inspection of chest normal and palpation of chest normal Chest: symmetrical chest wall rise Resp normal respiratory effort Effort and Inspection: able to speak in complete sentences Cardio regular rate GI non-distended Percussion: normal to percussion Rectal Exam: deferred Neuro Speech: speech normal Lab / Micro Data Result Diagrams: 09/09/21 05:56 09/09/21 05:56 Labs: Laboratory Results - last 24 hr 09/08/21 13:26: Phosphorus 1.6 L, Magnesium 1.3 L 09/08/21 14:15: Crossmatch See Detail 09/08/21 17:54: Hgb 7.8 L, Hct 26.6 L 09/08/21 23:47: Hgb 7.6 L, Hct 25.9 L 09/09/21 05:56: WBC 14.4 H, RBC 3.04 L, Hgb 7.1 L, Hct 24.2 L, MCV 79.6 L, MCH 23.4 L, MCHC 29.3 L, RDW Std Deviation 55.7 H, RDW Coeff of Donnie 19.7 H, Plt Count 181, MPV 9.4, Immature Gran % (Auto) 0.900, Neut % (Auto) 87.4 H, Lymph % (Auto) 6.4 L, Canyon % (Auto) 5.1, Eos % (Auto) 0.1, Baso % (Auto) 0.1, Absolute Neuts (auto) 12.6 H, Absolute Lymphs (auto) 0.93, Nucleated RBC % 0.2 09/09/21 05:56: Sodium 130 L, Potassium 3.4 L, Chloride 99, Carbon Dioxide 22.0, Anion Gap 9, BUN 6 L, Creatinine 0.76, Estim Creat Clear Calc 92.11, Est GFR (MDRD) Af Amer 134, Est GFR (MDRD) Non-Af 110, BUN/Creatinine Ratio 7.9 L, Glucose 106, Calcium 7.6 L, Phosphorus 2.8, Magnesium 2.0, Total Bilirubin 0.70, AST 78 H, ALT 95 H, Alkaline Phosphatase 233 H, Total Protein 6.0 L, Albumin 2.3 L, Globulin 3.7, Albumin/Globulin Ratio 0.6 L 09/09/21 09:14: Ammonia 85.0 H Micro: Microbiology 09/08/21 14:15 Stool Stool Occult Blood (OLAYINKA) - Final Occult Blood Positive 09/08/21 13:30 Nasal Secretion SARS-CoV-2 & FLU Antigen (Rapid) - Final Radiology Impression Abdomen/Pelvis CT 09/08/21 14:16 IMPRESSION: Cirrhosis with a large amount of ascites. Electronically Signed: Can Person MD at 16:21 EDT , Chest X-Ray 09/08/21 22:27 IMPRESSION: Normal x-ray examination of the chest. Electronically Signed: Catalino Andres MD, ELYSSA at 23:00 EDT , Charges/Coding Visit Charges Inpatient E&M: 96951 Init Hosp L3
[2021-09-09] MEDS: oxyCODONE 5 MG Tablet PO (16:14)
[2021-09-09] MEDS: Ceftriaxone 1 GM/50 ML BAG IV (17:02)
[2021-09-09] MEDS: Metoprolol Tartrate 5 MG/5 ML Vial 10 MG IV (17:03)
[2021-09-09] MEDS: Gabapentin 300 MG Capsule PO (18:33)
[2021-09-09] MEDS: Metoprolol Tartrate 100 MG Tablet PO (19:21)
[2021-09-10] VITALS (23 sets, daily range): BP systolic 88–167; BP diastolic 57–92; PULSE 85–128; RESP 12–20; TEMP 36.3–37.2; O2SAT 93–100; BMI 24.5
[2021-09-10] MEDS: Phenobarbital Sodium 65 MG/ML Vial 32.4 MG IV ×6 (02:23→22:08)
[2021-09-10 06:16] LABS: Absolute Lymphocyte Count 0.99 X10^3/uL (0.83-4.51); Absolute Neutrophil Count 12.7 X10^3/uL (2.0-7.7); Basophil# 0.01 X10^3/uL; Basophil% 0.1 % (0-1); Eosinophil# 0.01 X10^3/uL; Eosinophils% 0.1 % (0-5); Hematocrit 25.8 % (40-54); Hemoglobin 7.9 g/dL (13.0-16.5); Lymphocyte # 0.99 X10^3/ul (0.83-4.51); Lymphocyte % 6.7 % (19-41); Mean Corp Hgb Conc 30.6 g/dL (32-36); Mean Corpuscular Hgb 24.8 pg (27.0-32.0); Mean Corpuscular Volume 81.1 fL (80-94); Mean Platelet Vol. 9.6 fl (6.2-12.0); Monocyte# 0.87 X10^3/uL; Monocyte% 5.9 % (0-10); NRBC Flagged by Analyzer 0.2 % (0-5); Neutrophil # 12.68 X10^3/uL (2.7-7.7); Neutrophil % 86.3 % (47-70); Platelet Count 143 K/mm3 (150-450); RBC Distribution Width CV 19.3 % (11.6-14.6); RBC Distribution Width SD 54.3 fl (35.1-43.9); Red Blood Count 3.18 M/mm3 (4.6-6.2); White Blood Count 14.7 K/mm3 (4.4-11.0)
[2021-09-10 06:38] LABS: ALB/GLOB Ratio 0.7 RATIO (0.9-2.4); AST(SGOT) 66 U/L (15-37); Alanine Aminotransfer ALT/SGPT 78 U/L (16-61); Albumin, Serum 2.4 g/dL (3.2-5.0); Alkaline Phosphatase 216 U/L (45-117); Anion Gap 9 (5-15); BUN 7 mg/dL (7-18); Calcium,Total 7.7 mg/dL (8.5-10.1); Chloride 100 mmol/L (98-107); Creatinine, Serum 0.87 mg/dL (0.70-1.30); EST Glomerular Filtration Rate 95 mL/min (>60); Est Glom Filt Rate - Afr Amer 115 mL/min (>60); Estimated Creatinine Clearance 80.46 ml/min; Globulin 3.6 g/dL (2.2-4.2); Glucose 133 mg/dL (74-106); Potassium 3.2 mmol/L (3.5-5.1); Sodium Level 133 mmol/L (136-145)
[2021-09-10] MEDS: Albuterol 2.5 MG/3 ML VIAL.NEB. INHALATION ×2 (07:51→19:23)
[2021-09-10] MEDS: Budesonide Respules 0.5 MG/2 ML AMPUL.NEB. INHALATION ×2 (07:51→19:23)
--- NOTE | 2021-09-10 08:33 | NURSING ---
pt to endo
--- NOTE | 2021-09-10 08:35 | EGD_PTH ---
PATIENT: LUCIO YOUSIF LOC: MS3 U#:[id number] AGE/SX: 61/M ROOM: NM324 RE09/08/[address]: Dr. Luis Miguel Merino MD : 1960 BED: 1 DIS: 09/16/2021 SPEC #: [id number] RECD: 09/11/21 09:39 STATUS: ALEXANDRA REElie #: [id number] BRITTNEY: 09/10/21 08:[address]: Kemar Phelps DEPT: SURGICAL PATHOLOGY RECD BY: Tonja Moreau ENTERED: 09/11/21 10:41 SP TYPE: EGD BIOPSY OTHR DR: MD Dr. Luis Miguel Purcell MD [facility] Tissues: Duodenum, NOS Procedures: Surgery Specimen Level IV Comments: @ Ordering doctor for SUIV edited from to @ by RGOOD at 09/11/21 1426 @ Submitting doctor edited from to @ by RGOOD at 09/11/21 1426 HEADER OPERATION: [place] DIAGNOSIS: GI bleed TISSUE SUBMITTED: Duodenal polyp biopsy MICROSCOPIC DIAGNOSIS Duodenal polyp, biopsy: Tubular adenoma. AM:candido 09/12/2021 MICROSCOPIC DESCRIPTION Slides are reviewed. GROSS DESCRIPTION Received in fixative is one container labeled with the patient's name and designated duodenal polyp biopsy. The specimen consists of one irregular fragment of light [place] soft tissue that measures 0.5 x 0.3 x 0.1 cm. The specimen is totally submitted in one cassette. / AM:candido 09/11/2021 TC:5 CPT: 00042
--- NOTE | 2021-09-10 08:54 | PCM.PROGNOTE ---
Subjective Subjective Patient went an upper endoscopy. He is still quite encephalopathic and sleeping a lot. He tolerated procedure without any problems Objective Data Objective Data Vital Signs: Vital Signs Temp Pulse Resp BP Pulse Ox 97.7 F L 87 16 160/89 H 98 09/10/21 08:02 09/10/21 08:48 09/10/21 08:02 09/10/21 08:02 09/10/21 08:02 Oxygen Delivery Method Room Air Weight: 152 lb 8.958 oz Body Mass Index (BMI) 24.5 Intake & Output: Intake and Output for Last 24 Hours 09/08/21 09/09/21 09/10/21 23:59 23:59 23:59 Intake Total 1516.63 / 1516.63 1567.9533 / 1617.9533 50 / 50 Output Total 350 / 550 2300 / 2550 360 / 360 Balance 1166.63 / 966.63 -732.0467 / -932.0467 -310 / -310 Lab / Micro Data Result Diagrams: 09/10/21 06:00 09/10/21 06:00 Labs: Laboratory Results - last 24 hr 09/08/21 14:15: Crossmatch See Detail 09/09/21 09:14: Ammonia 85.0 H 09/10/21 06:00: WBC 14.7 H, RBC 3.18 L, Hgb 7.9 L, Hct 25.8 L, MCV 81.1, MCH 24.8 L, MCHC 30.6 L, RDW Std Deviation 54.3 H, RDW Coeff of Donnie 19.3 H, Plt Count 143 L, MPV 9.6, Immature Gran % (Auto) 0.900, Neut % (Auto) 86.3 H, Lymph % (Auto) 6.7 L, Tucker % (Auto) 5.9, Eos % (Auto) 0.1, Baso % (Auto) 0.1, Absolute Neuts (auto) 12.7 H, Absolute Lymphs (auto) 0.99, Nucleated RBC % 0.2 09/10/21 06:00: Sodium 133 L, Potassium 3.2 L, Chloride 100, Carbon Dioxide 24.0, Anion Gap 9, BUN 7, Creatinine 0.87, Estim Creat Clear Calc 80.46, Est GFR (MDRD) Af Amer 115, Est GFR (MDRD) Non-Af 95, BUN/Creatinine Ratio 8.0 L, Glucose 133 H, Calcium 7.7 L, Total Bilirubin 1.50 H, AST 66 H, ALT 78 H, Alkaline Phosphatase 216 H, Total Protein 6.0 L, Albumin 2.4 L, Globulin 3.6, Albumin/Globulin Ratio 0.7 L 09/10/21 06:00: Ammonia 28.0 Micro: Microbiology 09/08/21 14:15 Stool Stool Occult Blood (OLAYINKA) - Final Occult Blood Positive 09/08/21 13:30 Nasal Secretion SARS-CoV-2 & FLU Antigen (Rapid) - Final Physical Exam Const alert General Appearance: cooperative Orientation / Consciousness: oriented to person HEENT hearing grossly normal bilaterally Head and Scalp: normal to inspection Face and Sinus: face symmetric Nose: external nose normal Mouth: oral and palatal mucosa normal Eyes conjunctivae normal General Eye: normal appearance of both eyes Neck full ROM General: normal visual inspection Lymph Lymphatic: no lymphadenopathy noted Chest inspection of chest normal and palpation of chest normal Chest: symmetrical chest wall rise Resp normal respiratory effort Effort and Inspection: able to speak in complete sentences Cardio regular rate GI non-distended Percussion: normal to percussion Rectal Exam: deferred Neuro Speech: speech normal Gait (Neuro): normal gait Assessment & Plan Assessment/Plan (1) Anemia: PLAN: . Anemia likely multifactorial. He had esophageal varices grade 2 which were banded. He also had gastric varices that were not banded there were grade 1. Recommend to follow his hemoglobin. Continue ceftriaxone. PPI IV twice daily. (2) Cirrhosis: PLAN: Decompensated cirrhosis resulting in mild ascites, upper GI bleed, encephalopathy, acute kidney injury. Patient does not need diagnostic or therapeutic paracentesis at this time as he is on IV ceftriaxone. No more signs of upper GI bleed at this time. He will need a colonoscopy in the future to rule out another source of patient's persistent anemia. (3) Hyperammonemia: PLAN: Patient should have lactulose increased to every 4 hours Charges/Coding Visit Charges Inpatient E&M: 42349 Subs Hosp L3
--- NOTE | 2021-09-10 09:02 | OP.CCLET_ITS ---
01/11/2022 [facility] Re : Upper GI endoscopy procedure for [facility] This procedure was performed on Friday, September 10, 2021. My impressions and recommendations are as follows: Impressions : - Grade II esophageal varices. Incompletely eradicated. Banded. - Z-line irregular, 40 cm from the incisors. - Medium-sized hiatal hernia. - Type 1 gastroesophageal varices (GOV1, esophageal varices which extend along the lesser curvature), without bleeding. - A single duodenal polyp. Resected and retrieved. Recommendations : - Return patient to [facility] for ongoing care. - Full liquid diet. - Continue present medications. My findings are described in the full procedure note, which is enclosed. If I can be of further assistance, please feel free to contact me at . Sincerely, Kemar Friend, 09/10/2021 9:02:18 AM This report has been signed electronically.
--- NOTE | 2021-09-10 09:02 | OP.EGD_ITS ---
Patient Name: Dominic Najera Procedure Date: 09/10/2021 8:33 AM Date of : 1960 Age: 61 Procedure: Upper GI endoscopy Indications: Iron deficiency anemia, Hematemesis Providers: Kemar Phelps DO Medicines: Monitored Anesthesia Care Patient Profile: This is a 61 year old male. Refer to note in patient chart for documentation of history and physical. Patient has symptoms. Complications: No immediate complications. Procedure: Pre-Anesthesia Assessment: - Prior to the procedure, a History and Physical was performed, and patient medications and allergies were reviewed. The risks and benefits of the procedure and the sedation options and risks were discussed with the patient. All questions were answered and informed consent was obtained. Patient identification and proposed procedure were verified by the physician in the pre-procedure area. Mental Status Examination: alert and oriented. Airway Examination: normal oropharyngeal airway and neck mobility. Respiratory Examination: clear to auscultation. CV Examination: normal. Prophylactic Antibiotics: The patient does not require prophylactic antibiotics. Prior Anticoagulants: The patient has taken no previous anticoagulant or antiplatelet agents. ASA Grade Assessment: II - A patient with mild systemic disease. After reviewing the risks and benefits, the patient was deemed in satisfactory condition to undergo the procedure. The anesthesia plan was to use moderate sedation / analgesia (conscious sedation). Immediately prior to administration of medications, the patient was re-assessed for adequacy to receive sedatives. The heart rate, respiratory rate, oxygen saturations, blood pressure, adequacy of pulmonary ventilation, and response to care were monitored throughout the procedure. The physical status of the patient was re-assessed after the procedure. After obtaining informed consent, the endoscope was passed under direct vision. Throughout the procedure, the patient's blood pressure, pulse, and oxygen saturations were monitored continuously. The Endoscope was introduced through the mouth, and advanced to the second part of duodenum. The upper GI endoscopy was accomplished without difficulty. The patient tolerated the procedure well. Scope In: 8:41:52 AM Scope Out: 8:51:39 AM Total Procedure Duration Time 0 hours 9 minutes 47 seconds Findings: Grade II varices were found in the lower third of the esophagus. They were 5 mm in largest diameter. Two bands were successfully placed with incomplete eradication of varices. There was no bleeding during the procedure. The Z-line was irregular and was found 40 cm from the incisors. A medium-sized hiatal hernia was present. Type 1 gastroesophageal varices (GOV1, esophageal varices which extend along the lesser curvature) with no bleeding were found in the gastric fundus. There were no stigmata of recent bleeding. They were 5 mm in largest diameter. A single 5 mm sessile polyp was found in the second portion of the duodenum. The polyp was removed with a cold snare. Resection and retrieval were complete. Verification of patient identification for the specimen was done. Estimated blood loss was minimal. Impression: - Grade II esophageal varices. Incompletely eradicated. Banded. - Z-line irregular, 40 cm from the incisors. - Medium-sized hiatal hernia. - Type 1 gastroesophageal varices (GOV1, esophageal varices which extend along the lesser curvature), without bleeding. - A single duodenal polyp. Resected and retrieved. Recommendation: - Return patient to [facility] for ongoing care. - Full liquid diet. - Continue present medications. Procedure Code(s): --- Professional --- 32232, Esophagogastroduodenoscopy, flexible, transoral; with band ligation of esophageal/gastric varices 45505, Esophagogastroduodenoscopy, flexible, transoral; with removal of tumor(s), polyp(s), or other lesion(s) by snare technique CPT copyright 2017 [employer]. All rights reserved. The codes documented in this report are preliminary and upon corporate quality manager review may be revised to meet current compliance requirements. Kemar Phelps DO 09/10/2021 9:02:18 AM This report has been signed electronically. Number of Addenda: 1 Note Initiated On: 09/10/2021 8:33 AM Addendum Number: 1 Addendum Date: 01/11/2022 6:08:45 AM MAC was used as sedation for this procedure. Kemar Phelps DO 01/11/2022 6:08:49 AM This report has been signed electronically.
[2021-09-10] MEDS: Ceftriaxone 1 GM/50 ML BAG IV (10:14)
--- NOTE | 2021-09-10 10:45 | PN.HOSP_ITS ---
Documented by User: ROSSANA Johnston 09/10/21 10:55 Subjective Subjective Patient seen and examined. Patient just returned from EGD with Dr. Phelps. Patient is lethargic but able to answer questions appropriately. Objective Data Objective Data Vital Signs: Vital Signs Temp Pulse Resp BP Pulse Ox 98 F 107 H 16 164/89 H 100 09/10/21 09:38 09/10/21 09:38 09/10/21 09:38 09/10/21 09:38 09/10/21 09:38 Oxygen Delivery Method Room Air Weight: 152 lb 8.958 oz Body Mass Index (BMI) 24.5 Intake & Output: Intake and Output for Last 24 Hours 09/08/21 09/09/21 09/10/21 23:59 23:59 23:59 Intake Total 1516.63 / 1516.63 1567.9533 / 1617.9533 329.25 / 329.25 Output Total 350 / 550 2300 / 2550 360 / 360 Balance 1166.63 / 966.63 -732.0467 / -932.0467 -30.75 / -30.75 Lab / Micro Data Result Diagrams: 09/10/21 06:00 09/10/21 06:00 Labs: Laboratory Results - last 24 hr 09/08/21 14:15: Crossmatch See Detail 09/10/21 06:00: WBC 14.7 H, RBC 3.18 L, Hgb 7.9 L, Hct 25.8 L, MCV 81.1, MCH 24.8 L, MCHC 30.6 L, RDW Std Deviation 54.3 H, RDW Coeff of Donnie 19.3 H, Plt Count 143 L, MPV 9.6, Immature Gran % (Auto) 0.900, Neut % (Auto) 86.3 H, Lymph % (Auto) 6.7 L, [place] % (Auto) 5.9, Eos % (Auto) 0.1, Baso % (Auto) 0.1, Absolute Neuts (auto) 12.7 H, Absolute Lymphs (auto) 0.99, Nucleated RBC % 0.2 09/10/21 06:00: Sodium 133 L, Potassium 3.2 L, Chloride 100, Carbon Dioxide 24.0, Anion Gap 9, BUN 7, Creatinine 0.87, Estim Creat Clear Calc 80.46, Est GFR (MDRD) Af Amer 115, Est GFR (MDRD) Non-Af 95, BUN/Creatinine Ratio 8.0 L, Glucose 133 H, Calcium 7.7 L, Total Bilirubin 1.50 H, AST 66 H, ALT 78 H, Alkaline Phosphatase 216 H, Total Protein 6.0 L, Albumin 2.4 L, Globulin 3.6, Albumin/Globulin Ratio 0.7 L 09/10/21 06:00: Ammonia 28.0 Micro: Microbiology 09/08/21 14:15 Stool Stool Occult Blood (OLAYINKA) - Final Occult Blood Positive 09/08/21 13:30 Nasal Secretion SARS-CoV-2 & FLU Antigen (Rapid) - Final Physical Exam Const General Appearance: lethargic Orientation / Consciousness: oriented to person, oriented to place and lethargic HEENT normocephalic and head/scalp atraumatic Eyes conjunctivae normal and no scleral icterus Neck supple General: trachea midline Resp normal respiratory effort, normal air movement and clear to auscultation bilaterally Cardio regular rate, regular rhythm, S1 normal heart sound, S2 normal heart sound and peripheral pulses 2+ throughout GI Auscultation: normoactive bowel sounds Palpation: soft and tender Extremity normal capillary refill General Extremity: edema bilateral lower extremity Details: mild and no tenderness to palpation of joints or extremities Skin no rashes or lesions noted and no wounds General Skin Exam: turgor normal Neuro no focal motor deficits and no sensory deficits noted Motor Exam: general weakness Psych Appearance: unkempt and disheveled Attitude: bizarre Mood & Affect: flat affect Assessment & Plan Assessment/Plan (1) Debility: (2) Alcohol abuse: (3) Failure to thrive in adult: (4) Hyponatremia: (5) Hypochloremia: (6) Hyperammonemia: PLAN: 1. Gastritis -Continues to report pain -Continue IV Protonix -As needed medications for nausea vomiting and diarrhea ordered -Occult blood positive stool -Patient underwent EGD with Dr. Lenin santillan which demonstrated grade 2 esophageal varices, incompletely eradicated, banded. Z-line irregular 40 cm from the incisors. Medium sized hiatal hernia. Type I gastroesophageal varices which extend along the lesser curvature without bleeding. A single duodenal polyp resected and retrieved. -Patient ordered full liquid diet 2. Failure to Thrive -Consult social work and case management as patient lives at home alone and cannot take care of himself -PT, OT, ST to eval and treat -Maintain urinary catheter 3. Hyperammonemia -Resolved, ammonia 28 this a.m. 4. Hyponatremia -Sodium improved, 133 -Likely secondary to alcohol use -Daily CMP 5. Acute on chronic anemia -Patient is chronically anemic hemoglobin baseline 8.0-9.0 -Hemoglobin 7.9 -CBC daily 6. Alcohol abuse -Patient is reportedly a 4-5 12 ounce beer drinker a day -Phenobarbital taper ordered -Protocol along with supportive medications including thiamine and folic acid 7. Tobacco abuse -Nicotine patch ordered Will continue medications for chronic diseases including depression, hypertension, GERD, chronic back pain, hyperlipidemia, A. fib as appropriate once verified. DVT prophylaxis-SCDs This patient was seen by Sandra Pemberton NP-C under the supervision of Dr. Merino 12 minutes spent in clinical coordination of patient's plan of care. Documented by User: Dr. Luis Miguel Merino MD 09/10/21 11:54 Subjective Subjective Patient had EGD in the morning. Lethargic and groggy but later answers questions appropriately. Complain of abdominal pain Objective Data Lab / Micro Data Result Diagrams: 09/10/21 06:00 09/10/21 06:00 Physical Exam Narrative General: Lethargic, drowsy. HEENT: Atraumatic, PERRLA, EOMI, Normocephalic Oral: Oral mucosa dry no Gingival or Mucosal Lesions/ Ulcerations Neck: Supple, No JVD, Negative Carotid Bruits Lungs: Air entry diminished in bilateral lung bases. No crepitation/rhonchi Cardiovascular: Regular rate, Regular Rhythm, Normal S1, Normal S2, No murmurs Abdomen: Abdomen distended, ascites. Shifting dullness present. Nontender. Bowel Sounds sluggish : No renal angle tenderness. No suprapubic tenderness. Extremities: No edema, Capillary Refill Less than 3 Seconds Skin: No rashes, No breakdown Musculoskeletal: ROM restricted over hip and knee joints. Stiffness of joints. No point tenderness over palpation of hip and knee joints. Neurological: Cranial nerves II-XII grossly intact, DTR 2+/4 and Symmetrical, Neuro grossly intact Psych/Mental Status: Flat affect. Assessment & Plan Assessment/Plan (1) Cirrhosis: (2) Esophageal varices determined by endoscopy: PLAN: This patient was seen in conjunction with ION Flores. I have independently interviewed and examined the patient and reviewed pertinent history, examination findings, laboratory and plan of management. I have reviewed the note and agree with the documented findings with the few additional points. In brief, patient is 61-year-old gentleman with history of chronic alcohol use and dependence, stroke and other comorbidities admitted with generalized weakness. He was found not responding to his friend, covered in his own feces and urine found to be cold. He was somnolent therefore brought to ED by EMS and admitted. Assessment and plan 1. Decompensated cirrhosis most likely alcoholic cirrhosis with krystal roesophageal varices, ascites and toxic metabolic encephalopathy. Patient seen by senior mortgage loan processor and had EGD today. Patient had EGD reported grade 2 esophageal varices, incompletely eradicated, banded. Z-line irregular, medium- sized hiatus hernia. GOV 1 without bleeding. Single duodenal polyp. Full liquid diet recommended. On lactulose. Patient had diagnosis of esophageal varices on previous EGD in 2014. Ceftriaxone 1 g daily for possible GI bleed in the setting of ascites as he is high risk for SBP. Calculated MELD Na is 16, less than 2% estimated 90-day mortality. 2. Acute on chronic anemia most likely due to cirrhosis/chronic iron deficiency anemia, hyponatremia, severe protein calorie malnourished with evidence of loss of subcutaneous fat and mild to moderate atrophy of muscles of extremity. 3. Hyponatremia, hypomagnesemia and hypophosphatemia: Electrolytes are being monitored and getting replaced as per lab abnormality. Hyponatremia is chronic mainly hypotonic hypervolemic hyponatremia from cirrhosis. On Neutra-Phos 4. Bilateral carotid stenosis, history of a stroke. 5. Coronary artery status post PTCA/PCI in 2016. On Plavix. I have discussed my assessment with ION Flores and orders have been reviewed. Charges/Coding Visit Charges Inpatient E&M: 87778 Subs Hosp L2
[2021-09-10] MEDS: Lactulose 20 GM/30 ML UDC PO ×4 (10:46→20:36)
[2021-09-10] MEDS: Morphine 2 MG/ML Syringe IV (10:46)
[2021-09-10] MEDS: Metoprolol Tartrate 100 MG Tablet PO ×2 (10:50→20:36)
[2021-09-10] MEDS: Magnesium Chloride 64 MG Delay Rel.Tablet 128 MG PO (10:50)
[2021-09-10] MEDS: Cholecalciferol (VIT D3) 25 MCG TABLET (1,000 UNITS) 50 MCG PO (10:51)
[2021-09-10] MEDS: buPROPion (XL) 150 MG TABLET.XL PO (10:51)
[2021-09-10] MEDS: Citalopram 20 MG Tablet PO (10:51)
[2021-09-10] MEDS: amLODIPine 5 MG Tablet PO (10:52)
[2021-09-10] MEDS: Folic Acid 1 MG Tablet PO (10:52)
[2021-09-10] MEDS: Thiamine Hydrochloride 100 MG Tablet PO (10:52)
[2021-09-10] MEDS: Bisacodyl 5 MG Tablet 20 MG PO (10:53)
[2021-09-10] MEDS: Electrolyte Solution/Peg's 4000 ML PO (11:04)
--- NOTE | 2021-09-10 12:56 | NURSING ---
david (poa) called for consent for colonoscopy
[2021-09-10] MEDS: Na Biphos/Potassium Phosphate PACKET 1 PACKET PO ×3 (13:21→20:36)
[2021-09-10] MEDS: hydrALAZINE 20 MG/ML Vial 5 MG IV (15:31)
[2021-09-10] MEDS: oxyCODONE 5 MG Tablet PO ×2 (17:28→23:29)
[2021-09-10] MEDS: Gabapentin 300 MG Capsule PO (17:28)
[2021-09-10] MEDS: 0.9% Saline Lock 10 ML Syringe IV (20:43)
[2021-09-10] MEDS: hydrOXYzine PAM 25 MG Capsule 50 MG PO (23:05)
[2021-09-11] VITALS (22 sets, daily range): BP systolic 84–147; BP diastolic 53–100; PULSE 87–120; RESP 16–21; TEMP 36.3–37.1; O2SAT 95–100; BMI 24.5
[2021-09-11] MEDS: Lactulose 20 GM/30 ML UDC PO ×3 (02:29→21:33)
[2021-09-11] MEDS: Phenobarbital Sodium 65 MG/ML Vial 32.4 MG IV ×4 (02:34→20:57)
[2021-09-11] MEDS: Menthol/Lanolin/Calamine/Znox 113 GM Tube 1 APPLIC TOPICAL ×2 (05:53→21:42)
[2021-09-11 06:21] LABS: Absolute Lymphocyte Count 1.02 X10^3/uL (0.83-4.51); Absolute Neutrophil Count 9.2 X10^3/uL (2.0-7.7); Basophil# 0.01 X10^3/uL; Basophil% 0.1 % (0-1); Differential Indicated SCAN CRITERIA MET; Hematocrit 25.2 % (40-54); Hemoglobin 7.7 g/dL (13.0-16.5); Lymphocyte # 1.02 X10^3/ul (0.83-4.51); Lymphocyte % 9.2 % (19-41); Mean Corp Hgb Conc 30.6 g/dL (32-36); Mean Corpuscular Hgb 24.9 pg (27.0-32.0); Mean Corpuscular Volume 81.6 fL (80-94); Mean Platelet Vol. 9.1 fl (6.2-12.0); Monocyte# 0.76 X10^3/uL; Monocyte% 6.9 % (0-10); NRBC Flagged by Analyzer 0.3 % (0-5); Neutrophil % 83.2 % (47-70); POSITIVE MORPHOLOGY YES; Platelet Count 114 K/mm3 (150-450); RBC Distribution Width CV 20.3 % (11.6-14.6); RBC Distribution Width SD 55.6 fl (35.1-43.9); Red Blood Count 3.09 M/mm3 (4.6-6.2); White Blood Count 11.1 K/mm3 (4.4-11.0)
[2021-09-11 06:33] LABS: Anisocytosis 2+; Platelet Estimate SLT DEC (ADEQ)
[2021-09-11 06:50] LABS: Phosphorus 1.6 mg/dL (2.5-4.9)
[2021-09-11 06:58] LABS: ALB/GLOB Ratio 0.6 RATIO (0.9-2.4); AST(SGOT) 81 U/L (15-37); Alanine Aminotransfer ALT/SGPT 69 U/L (16-61); Albumin, Serum 2.3 g/dL (3.2-5.0); Alkaline Phosphatase 214 U/L (45-117); Anion Gap 11 (5-15); BUN 7 mg/dL (7-18); Calcium,Total 8.3 mg/dL (8.5-10.1); Chloride 106 mmol/L (98-107); Creatinine, Serum 1.16 mg/dL (0.70-1.30); EST Glomerular Filtration Rate 68 mL/min (>60); Est Glom Filt Rate - Afr Amer 82 mL/min (>60); Estimated Creatinine Clearance 60.35 ml/min; Globulin 3.8 g/dL (2.2-4.2); Glucose 127 mg/dL (74-106); Magnesium 1.8 mg/dL (1.6-2.6); Potassium 2.3 mmol/L (3.5-5.1); Protein, Total 6.1 g/dL (6.4-8.2); Sodium Level 141 mmol/L (136-145)
--- NOTE | 2021-09-11 07:36 | PN.HOSP_ITS ---
Objective Data Objective Data Vital Signs: Vital Signs Temp Pulse Resp BP Pulse Ox 98.1 F 117 H 18 147/100 H 99 09/11/21 02:26 09/11/21 06:02 09/11/21 02:26 09/11/21 02:26 09/11/21 02:26 Oxygen Delivery Method Room Air Weight: 152 lb 8.958 oz Body Mass Index (BMI) 24.5 Intake & Output: Intake and Output for Last 24 Hours 09/09/21 09/10/21 09/11/21 23:59 23:59 23:59 Intake Total 1567.9533 / 1617.9533 2139.25 / 2139.25 Output Total 2300 / 2550 710 / 710 200 / 200 Balance -732.0467 / -932.0467 1429.25 / 1429.25 -200 / -200 Lab / Micro Data Result Diagrams: 09/11/21 06:10 09/11/21 06:10 Labs: Laboratory Results - last 24 hr 09/11/21 06:10: WBC 11.1 H, RBC 3.09 L, Hgb 7.7 L, Hct 25.2 L, MCV 81.6, MCH 24.9 L, MCHC 30.6 L, RDW Std Deviation 55.6 H, RDW Coeff of Donnie 20.3 H, Plt Count 114 L, MPV 9.1, Immature Gran % (Auto) 0.600, Neut % (Auto) 83.2 H, Lymph % (Auto) 9.2 L, [place] % (Auto) 6.9, Eos % (Auto) 0.0, Baso % (Auto) 0.1, Absolute Neuts (auto) 9.2 H, Absolute Lymphs (auto) 1.02, Nucleated RBC % 0.3, Platelet Estimate SLT DEC, Anisocytosis 2+ 09/11/21 06:10: Sodium 141, Potassium 2.3 L*, Chloride 106, Carbon Dioxide 24.0, Anion Gap 11, BUN 7, Creatinine 1.16, Estim Creat Clear Calc 60.35, Est GFR (MDRD) Af Amer 82, Est GFR (MDRD) Non-Af 68, BUN/Creatinine Ratio 6.0 L, Glucose 127 H, Calcium 8.3 L, Magnesium 1.8, Total Bilirubin 1.10 H, AST 81 H, ALT 69 H, Alkaline Phosphatase 214 H, Total Protein 6.1 L, Albumin 2.3 L, Globulin 3.8, Albumin/Globulin Ratio 0.6 L 09/11/21 06:10: Ammonia 12.0 09/11/21 06:10: Phosphorus 1.6 L Micro: Microbiology 09/08/21 14:15 Stool Stool Occult Blood (OLAYINKA) - Final Occult Blood Positive 09/08/21 13:30 Nasal Secretion SARS-CoV-2 & FLU Antigen (Rapid) - Final
[2021-09-11] MEDS: Budesonide Respules 0.5 MG/2 ML AMPUL.NEB. INHALATION ×2 (07:40→19:50)
[2021-09-11] MEDS: 0.9% Saline Lock 10 ML Syringe IV ×6 (08:30→22:53)
--- NOTE | 2021-09-11 09:40 | CASEMGMT ---
Addendum entered by Beatriz Gonzalez 09/11/21 14:44: Faxed registration [facility] Decl[facility] Form. Original Note: BIANCA GALLARDO Assessment: Face to Face with pt for initial transition planning/care coordination assessment. BIANCA GALLARDO introduced self and role at [facility], pt voices understanding and consents to assessment. Pt is A/O x3 and answers all questions appropriately at this time. Pt asked to have his DPOA Mariajose Mccann in the room for assessment. BIANCA GALLARDO went to get her and another male friend was in room during assessment. Male friend states they know his situation and they are only here to sign the DNR form. Notified pt nurse for this. Care providers, pharmacy, and demographics verified/updated. Admitting Dx: AMS [facility]CP:[facility]- pt is not sure the name of his PCP, states it keeps changing. Specialists:Pt denies. Preferred Pharmacy: [facility] for s/t. Insurance: [place], calling registration to verify other insurances. Prescription Benefit: yes LW/HPOA: Pt has a LW/DPOA on file. His DPOA is Mariajose Mccann and Mimi Chávez is also listed. Pt states he does not speak to Mimi currently but is ok with this information being on file. LNOK:The above friends. Living Arrangements: Pt lives alone in a single story apt with 14 steps with a rail to enter. Pt states once in the home his living quarters are on one floor. Pt states he has not ambulated in a few mos. States he needs assistance with bathing and dressing but has no one to help. He states that he cannot get to the bathroom so he just goes when he needs to. Mariajose supplies pt with beer and cigarettes. He states he drinks 5 beers per day. She states it is way more. Transportation: Pt reports he does not drive. States he has a friend who is a cable splicing technician who provides his transportation. DME/HHC/SNF: Pt has a FWW at home but Mariajose states it is at her house. Pt denies hx of HHC or SNF stays. Pt is aware that he cannot return home. He is agreeable and wants to go to a SNF. Mariajose also agrees. Mariajose signed [facility] decl[place] and this was fax[place] to the [place]. Pt states no further concerns/needs. CM to follow. Advised pt to ask CM if any further question/concerns/needs arise, voices understanding. Pt Goal: SNF Plan: SNF, notified SW.
--- NOTE | 2021-09-11 10:26 | CASEMGMT ---
Addendum entered by Janeth Berg 09/11/21 15:12: Social Work Return call from Jeane at [facility] and they are able to accept pt. Precert will need obtained prior to pt discharge. Pt is out of room for procedure, SW will notify pt tomorrow. Plan: [facility], pending precert TAMMI Valle Original Note: Social Work Per RNCM pt is agreeable to need for SNF. Phone call to VIGNESH Bush, who states pt is not service connected. MALIA met with pt and introduced self and role of SW. SW provided pt with list of SNF providers including quality and resource use data and consistent with the patient's preferred geographic region, medical needs and insurance network. Pt is agreeable that he cannot return home and will need SNF placement. Preferred SNF is [facility]. Phone call to Jeane at [facility] and VM left. Referral faxed to [facility]. SW will await determination of acceptance. Plan: [facility], pending acceptance and precTAMMI Corral
[2021-09-11] MEDS: Ceftriaxone 1 GM/50 ML BAG IV (10:38)
[2021-09-11] MEDS: Metoprolol Tartrate 100 MG Tablet PO ×2 (11:02→21:33)
[2021-09-11] MEDS: Cholecalciferol (VIT D3) 25 MCG TABLET (1,000 UNITS) 50 MCG PO (11:03)
[2021-09-11] MEDS: amLODIPine 5 MG Tablet PO (11:05)
--- NOTE | 2021-09-11 11:26 | PN.HOSP_ITS ---
Documented by User: ROSSANA Johnston 09/11/21 11:35 Subjective Subjective Patient seen and examined. Patient states that he is feeling a little bit better than yesterday after his procedure. Patient is not as ill appearing as he has been in previous evaluations. Objective Data Objective Data Vital Signs: Vital Signs Temp Pulse Resp BP Pulse Ox 98.4 F 120 H 20 H 141/79 H 99 09/11/21 08:04 09/11/21 11:02 09/11/21 08:04 09/11/21 08:04 09/11/21 08:04 Oxygen Delivery Method Room Air Weight: 152 lb 8.958 oz Body Mass Index (BMI) 24.5 Intake & Output: Intake and Output for Last 24 Hours 09/09/21 09/10/21 09/11/21 23:59 23:59 23:59 Intake Total 1567.9533 / 1617.9533 2139.25 / 2139.25 412 / 412 Output Total 2300 / 2550 710 / 710 200 / 200 Balance -732.0467 / -932.0467 1429.25 / 1429.25 212 / 212 Lab / Micro Data Result Diagrams: 09/11/21 06:10 09/11/21 06:10 Labs: Laboratory Results - last 24 hr 09/11/21 06:10: WBC 11.1 H, RBC 3.09 L, Hgb 7.7 L, Hct 25.2 L, MCV 81.6, MCH 24.9 L, MCHC 30.6 L, RDW Std Deviation 55.6 H, RDW Coeff of Donnie 20.3 H, Plt Count 114 L, MPV 9.1, Immature Gran % (Auto) 0.600, Neut % (Auto) 83.2 H, Lymph % (Auto) 9.2 L, [place] % (Auto) 6.9, Eos % (Auto) 0.0, Baso % (Auto) 0.1, Absolute Neuts (auto) 9.2 H, Absolute Lymphs (auto) 1.02, Nucleated RBC % 0.3, Platelet Estimate SLT DEC, Anisocytosis 2+ 09/11/21 06:10: Sodium 141, Potassium 2.3 L*, Chloride 106, Carbon Dioxide 24.0, Anion Gap 11, BUN 7, Creatinine 1.16, Estim Creat Clear Calc 60.35, Est GFR (MDRD) Af Amer 82, Est GFR (MDRD) Non-Af 68, BUN/Creatinine Ratio 6.0 L, Glucose 127 H, Calcium 8.3 L, Magnesium 1.8, Total Bilirubin 1.10 H, AST 81 H, ALT 69 H, Alkaline Phosphatase 214 H, Total Protein 6.1 L, Albumin 2.3 L, Globulin 3.8, Albumin/Globulin Ratio 0.6 L 09/11/21 06:10: Ammonia 12.0 09/11/21 06:10: Phosphorus 1.6 L Micro: Microbiology 09/08/21 14:15 Stool Stool Occult Blood (OLAYINKA) - Final Occult Blood Positive 09/08/21 13:30 Nasal Secretion SARS-CoV-2 & FLU Antigen (Rapid) - Final Physical Exam Const alert General Appearance: cooperative Orientation / Consciousness: oriented to person and oriented to place HEENT normocephalic and head/scalp atraumatic Eyes conjunctivae normal and no scleral icterus Neck supple General: trachea midline Resp normal respiratory effort, normal air movement and clear to auscultation bilaterally Cardio regular rate, regular rhythm, S1 normal heart sound, S2 normal heart sound and peripheral pulses 2+ throughout GI Auscultation: normoactive bowel sounds Palpation: soft and tender Extremity normal capillary refill General Extremity: edema bilateral lower extremity Details: trace and no tenderness to palpation of joints or extremities Skin no rashes or lesions noted and no wounds General Skin Exam: turgor normal Neuro no focal motor deficits and no sensory deficits noted Motor Exam: general weakness Psych Appearance: unkempt and disheveled Attitude: bizarre Mood & Affect: flat affect Assessment & Plan Assessment/Plan (1) Cirrhosis: (2) Esophageal varices determined by endoscopy: PLAN: 1. Gastritis -Continues to report pain however states this is improving -Continue IV Protonix -As needed medications for nausea vomiting and diarrhea ordered -Occult blood positive stool -Patient underwent EGD 09/10/[address] Phelps today which demonstrated grade 2 esophageal varices, incompletely eradicated, banded. Z-line irregular 40 cm from the incisors. Medium sized hiatal hernia. Type I gastroesophageal varices which extend along the lesser curvature without bleeding. A single duodenal polyp resected and retrieved. -Patient ordered full liquid diet -White blood cell count improved 2. Failure to Thrive -Consult social work and case management as patient lives at home alone and cannot take care of himself -PT, OT, ST following -Maintain urinary catheter 3. Hypokalemia -Patient potassium 2.3 today, received potassium phosphate 40 mm IV x1 -Sodium biphosphate and potassium packet ordered to begin tomorrow -CMP daily 4. Hypophosphatemia -Phosphorus 1.6 today -K-Phos IV given, sodium biphosphate and potassium packet ordered to begin tomorrow -Phosphorus level ordered in a.m. 5. Hyponatremia-resolved -Sodium improved, 141 -Likely secondary to alcohol use -Daily CMP 5. Acute on chronic anemia -Patient is chronically anemic hemoglobin baseline 8.0-9.0 -Hemoglobin 7.7 -CBC daily 6. Alcohol abuse -Patient is reportedly a 4-5 12 ounce beer drinker a day -Phenobarbital taper ordered -Protocol along with supportive medications including thiamine and folic acid 7. Tobacco abuse -Nicotine patch ordered Will continue medications for chronic diseases including depression, hypertension, GERD, chronic back pain, hyperlipidemia, A. fib as appropriate once verified. DVT prophylaxis-SCDs This patient was seen by Sandra Pemberton NP-C under the supervision of Dr. Merino 14 minutes spent in clinical coordination of patient's plan of care. Documented by User: Dr. Luis Miguel Merino MD 09/11/21 14:12 Subjective Subjective Seen and examined. Patient mental status is better than yesterday. He is awake alert and answering simple questions. Objective Data Lab / Micro Data Result Diagrams: 09/11/21 06:10 09/11/21 06:10 Physical Exam Narrative Seen and examined. Nursing staff called in the afternoon with patient urine output is 100 cc in the last 6 hours General: Alert awake oriented x3. HEENT: Atraumatic, PERRLA, EOMI, Normocephalic Oral: Oral mucosa dry. No Gingival or Mucosal Lesions/ Ulcerations Neck: Supple, No JVD, Negative Carotid Bruits Lungs: Air entry diminished in bilateral lung bases. No crepitation/rhonchi Cardiovascular: Regular rate, Regular Rhythm, Normal S1, Normal S2, No murmurs Abdomen: Abdomen distended, ascites. Shifting dullness present. Nontender. Bowel Sounds sluggish : Urine output 100 mL in last 6 hours. No renal angle tenderness. No suprapubic tenderness. Extremities: No edema, Capillary Refill Less than 3 Seconds Skin: No rashes, No breakdown Musculoskeletal: ROM restricted over hip and knee joints. Stiffness of joints. No point tenderness over palpation of hip and knee joints. Neurological: Cranial nerves II-XII grossly intact, DTR 2+/4 and Symmetrical, Neuro grossly intact Psych/Mental Status: Flat affect. Assessment & Plan Assessment/Plan (1) Cirrhosis: PLAN: This patient was seen in conjunction with ION Flores. I have independently interviewed and examined the patient and reviewed pertinent history, examination findings, laboratory and plan of management. I have reviewed the note and agree with the documented findings with the few additional points. In brief, patient is 61-year-old gentleman with history of chronic alcohol use and dependence, stroke and other comorbidities admitted with generalized weakness. He was found not responding to his friend, covered in his own feces and urine found to be cold. He was somnolent therefore brought to ED by EMS and admitted. Assessment and plan 1. Decompensated cirrhosis most likely alcoholic cirrhosis with gastroesophageal varices, ascites and toxic metabolic encephalopathy. Patient seen by motor vehicle inspector and had EGD today. Patient had EGD reported grade 2 esophageal varices, incompletely eradicated, banded. Z-line irregular, medium- sized hiatus hernia. GOV 1 without bleeding. Single duodenal polyp. Full liqu id diet recommended. On lactulose. Patient had diagnosis of esophageal varices on previous EGD in 2014. Ceftriaxone 1 g daily for possible GI bleed in the setting of ascites as he is high risk for SBP. Calculated MELD Na is 16, less than 2% estimated 90-day mortality. 09/11: Plan for colonoscopy today. 2. Acute on chronic anemia most likely due to cirrhosis/chronic iron deficiency anemia, hyponatremia, severe protein calorie malnourished with evidence of loss of subcutaneous fat and mild to moderate atrophy of muscles of extremity. 09/11: Hemoglobin 7.7. 3. Hyponatremia, hypomagnesemia and hypophosphatemia: Electrolytes are being monitored and getting replaced as per lab abnormality. Hyponatremia is chronic mainly hypotonic hypervolemic hyponatremia from cirrhosis. On Neutra-Phos 09/11: Patient has hypokalemia and hypophosphatemia. On IV phosphate. Continue Neutra-Phos from tomorrow 4. Bilateral carotid stenosis, history of a stroke. 5. Coronary artery status post PTCA/PCI in 2016. On Plavix. 6. FLEX stage I on CKD stage II: Patient had 100 mL urine output last 16 hours which is less than 210 mL/h therefore stage I of FLEX. Patient also has fluctuation of creatinine clearance but usually it is around 80mL/min therefore he stays to CKD mainly due to fluid shift. Patient had colon prep and loose bowel movement for most probably prerenal. Patient has Shields catheter. 1 L Ringer lactate bolus and then 25 g of IV albumin. I have discussed my assessment with Sandra, IRISH MOSS GATHERER and orders have been reviewed. Total time of the visit including total time spent in counseling or coordination of care, (more than 50% of the total time, spent in obtaining medical informatio n from nurses and other ancillary care providers,explaining to the patient about labs, imaging, diagnosis and management), review of labs and imaging is 40 minutes I spent 26 minutes and IRISH MOSS GATHERER spent 14 minutes. Charges/Coding Visit Charges Inpatient E&M: 13312 Subs Hosp L3
[2021-09-11] MEDS: Albuterol 2.5 MG/3 ML VIAL.NEB. INHALATION (13:25)
[2021-09-11] MEDS: Lactated Ringers 1,000 ML 999 ML IV (14:26)
--- NOTE | 2021-09-11 15:05 | NURSING ---
Off the floor at this time.
[2021-09-11] MEDS: Lactated Ringers 1,000 ML 15 ML IV (15:30)
--- NOTE | 2021-09-11 16:58 | OP.COLON_ITS ---
Patient Name: Dominic Najera Procedure Date: 09/11/2021 4:23 PM Date of : 1960 Age: 61 Procedure: Colonoscopy Indications: Iron deficiency anemia Providers: Kemar Phelps DO Medicines: Monitored Anesthesia Care Patient Profile: This is a 61 year old male. Refer to note in patient chart for documentation of history and physical. Last Colonoscopy: date unknown. Unable to locate last colonoscopy report. Complications: No immediate complications. Procedure: Pre-Anesthesia Assessment: - Prior to the procedure, a History and Physical was performed, and patient medications and allergies were reviewed. The patient is competent. The risks and benefits of the procedure and the sedation options and risks were discussed with the patient. All questions were answered and informed consent was obtained. Patient identification and proposed procedure were verified by the physician in the pre-procedure area. Mental Status Examination: alert and oriented. Airway Examination: normal oropharyngeal airway and neck mobility. Respiratory Examination: clear to auscultation. CV Examination: normal. Prophylactic Antibiotics: The patient does not require prophylactic antibiotics. Prior Anticoagulants: The patient has taken no previous anticoagulant or antiplatelet agents. ASA Grade Assessment: II - A patient with mild systemic disease. After reviewing the risks and benefits, the patient was deemed in satisfactory condition to undergo the procedure. The anesthesia plan was to use moderate sedation / analgesia (conscious sedation). Immediately prior to administration of medications, the patient was re-assessed for adequacy to receive sedatives. The heart rate, respiratory rate, oxygen saturations, blood pressure, adequacy of pulmonary ventilation, and response to care were monitored throughout the procedure. The physical status of the patient was re-assessed after the procedure. After I obtained informed consent, the scope was passed under direct vision. Throughout the procedure, the patient's blood pressure, pulse, and oxygen saturations were monitored continuously. The pediatric colonoscope was introduced through the anus and advanced to the ileocecal valve. The ileocecal valve, appendiceal orifice, and rectum were photographed. Scope In: 4:28:35 PM Scope Withdrawal Time 0 hours 4 minutes 0 seconds Scope Out: 4:44:45 PM Total Procedure Duration Time 0 hours 16 minutes 10 seconds Findings: Multiple small and large-mouthed diverticula were found in the recto-sigmoid colon, sigmoid colon and descending colon. Hemorrhoids were found on perianal exam. Impression: - Diverticulosis in the recto-sigmoid colon, in the sigmoid colon and in the descending colon. - Hemorrhoids found on perianal exam. - No specimens collected. Recommendation: - [facility] to [facility] for [facility] care. - Resume previous diet. - Continue present medications. - No repeat colonoscopy due to no evidence of mucosal or other abnormalities on today's exam. Procedure Code(s): --- Professional --- 11127, Colonoscopy, flexible; diagnostic, including collection of specimen(s) by brushing or washing, when performed (separate procedure) CPT copyright 2017 [employer]. All rights reserved. The codes documented in this report are preliminary and upon senior staff accountant review may be revised to meet current compliance requirements. Kemar Phelps DO 09/11/2021 4:57:39 PM This report has been signed electronically. Number of Addenda: 1 Note Initiated On: 09/11/2021 4:23 PM Addendum Number: 1 Addendum Date: 01/11/2022 6:06:39 AM MAC was used as sedation for this procedure. Kemar Phelps DO 01/11/2022 6:06:43 AM This report has been signed electronically.
--- NOTE | 2021-09-11 16:58 | OP.CCLET_ITS ---
01/11/2022 [facility] Re : Colonoscopy procedure for [facility] This procedure was performed on Saturday, September 11, 2021. My impressions and recommendations are as follows: Impressions : - Diverticulosis in the recto-sigmoid colon, in the sigmoid colon and in the descending colon. - Hemorrhoids found on perianal exam. - No specimens collected. Recommendations : - Return patient to [facility] for ongoing care. - Resume previous diet. - Continue present medications. - No repeat colonoscopy due to no evidence of mucosal or other abnormalities on today's exam. My findings are described in the full procedure note, which is enclosed. If I can be of further assistance, please feel free to contact me at . Sincerely, Kemar Phelps, 09/11/2021 4:57:39 PM This report has been signed electronically.
[2021-09-11] MEDS: oxyCODONE 5 MG Tablet PO (17:59)
[2021-09-11] MEDS: Gabapentin 300 MG Capsule PO (17:59)
--- NOTE | 2021-09-11 18:37 | NURSING ---
Albumin late, pt was going down for Colonscopy. Was going to give it after returned from [facility]ons[facility] but K phos still running. K pooja and Albumin not compatiable per Federico in Pharmacy. This nurse attempted to start another IV site but after 2 attempts was unsuccessful. Will wait until K phos done infusing.
[2021-09-11] MEDS: Albumin Human 25% (100 mL) 25 GM/100 ML BAG IV (21:03)
[2021-09-12] VITALS (17 sets, daily range): BP systolic 113–144; BP diastolic 70–98; PULSE 100–122; RESP 16–26; TEMP 36.5–37.2; O2SAT 87–100
--- NOTE | 2021-09-12 | FLU_PTH ---
PATIENT: LUCIO YOUSIF LOC: MS3 U#:[id number] AGE/SX: 61/M ROOM: NJ324 RE09/08/[address]: Dr. Luis Miguel Merino MD : 1960 BED: 1 DIS: 09/16/2021 SPEC #: [id number] RECD: 09/12/21 11:02 STATUS: ALEXANDRA REElie #: [id number] BRITTNEY: 09/12/21 00:[address]: Luis Miguel Merino DEPT: CYTOLOGY RECD BY: Tonja Moreau ENTERED: 09/12/21 14:01 SP TYPE: Fluid OTHR DR: Dr. Prachi Wick MD [facility] Tissues: PARACENTESIS FLUID Procedures: Special Stain Group II Mucicarmine Stain (control) Surgery Specimen Level IV Cytospin Fluid HEADER OPERATION: Ultrasound-guided right paracentesis PRE-OP DIAGNOSIS: Ascites TISSUE SUBMITTED: Paracentesis for cytology DIAGNOSIS CYTOLOGY Paracentesis for cytology (cytospin and cell block): Negative for malignant cells. See comment. AM:candido 09/13/2021 COMMENT Immunohistochemistry ([id number]) supports the above diagnosis. Mucin stain with matched control was used in the evaluation of this case. CYTOLOGY STUDY Slides are reviewed. CYTOLOGY GROSS Received is 70 ml of light yellow clear fluid labeled with the patient's name and and designated per the requisition as paracentesis. Submitted for cytology preparation including cell block. / candido 09/12/2021 TC:5 CPT: 21405, 11259, 14033
--- NOTE | 2021-09-12 | IMM_PTH ---
PATIENT: LUCIO YOUSIF LOC: MS3 U#:[id number] AGE/SX: 61/M ROOM: CO324 RE09/08/[address]: Dr. Luis Miguel Merino MD : 1960 BED: 1 DIS: 09/16/2021 SPEC #: [id number] RECD: 09/13/21 14:16 STATUS: SOUT REQ #: [id number] BRITTNEY: 09/12/21 00:[address]: Luis Miguel Merino DEPT: IMMUNOHISTOCHEMISTRY RECD BY: Katt Coy ENTERED: 09/13/21 14:18 SP TYPE: IMMUNO OTHR DR: Dr. Prachi Wick MD [facility] Tissues: PARACENTESIS FLUID Procedures: NAPSIN A (add) Heladio Ret (add) CK5-6 (add) CK7 (add) MACRO (add) P53 (add) TTF1 (add) Pankeratin (initial) P40 (add) PHYSICIAN & [address] [address] SPECIMEN INFORMATION: Tissue Source: Paracentesis fluid Clinical Info: Ascites Specimen Number: [id number] CPT code: 97710, 63744 x8 METHODOLOGY: Deparaffinized sections of prefer/formalin-fixed tissue or PAP/DQ stained slides are incubated with monoclonal/polyclonal antibodies/oligonucleotide probes. Localization is made via biotin free immunoperoxidase method. Appropriate controls are performed and reacted as expected. Results on target cell population are indicated in the following table: RESULTS: ANTIBODY / CLONE RESULT AE1-3 (AE1/AE3/PCK26) positive CK7 (OV-TL12/30) positive Macro (HAM-56) positive TTF-1 (8G7G3/1) negative Napsin A (Rabbit Polyclonal) negative CALRET (polyclonal) positive CK5-6 (D5 & 1684) positive P40 (BC28) negative P53 (DO-7) negative These tests were developed and their performance characteristics determined by [facility]. They may not have been cleared or approved by the U.S. Food and Drug Administration. The FDA has determined that such clearance or approval is not necessary. The above immunohistochemical/dualISH markers are ordered and reviewed by the Pathologist. INTERPRETATION: Paracentesis fluid (cell block): No evidence of malignancy. AM:candido 09/14/2021
[2021-09-12] MEDS: Phenobarbital Sodium 65 MG/ML Vial 32.4 MG IV (02:40)
[2021-09-12] MEDS: Lactulose 20 GM/30 ML UDC PO ×6 (02:40→21:00)
[2021-09-12 07:16] LABS: ALB/GLOB Ratio 0.8 RATIO (0.9-2.4); AST(SGOT) 76 U/L (15-37); Alanine Aminotransfer ALT/SGPT 52 U/L (16-61); Albumin, Serum 2.5 g/dL (3.2-5.0); Alkaline Phosphatase 178 U/L (45-117); Anion Gap 10 (5-15); BUN 5 mg/dL (7-18); BUN/Creat Ratio 4.7 RATIO (10-20); Calcium,Total 7.8 mg/dL (8.5-10.1); Chloride 111 mmol/L (98-107); Creatinine, Serum 1.07 mg/dL (0.70-1.30); EST Glomerular Filtration Rate 75 mL/min (>60); Est Glom Filt Rate - Afr Amer 90 mL/min (>60); Estimated Creatinine Clearance 65.42 ml/min; Globulin 3.3 g/dL (2.2-4.2); Glucose 100 mg/dL (74-106); Phosphorus 2.7 mg/dL (2.5-4.9); Potassium 2.7 mmol/L (3.5-5.1); Protein, Total 5.8 g/dL (6.4-8.2); Sodium Level 144 mmol/L (136-145)
[2021-09-12 07:41] LABS: Absolute Lymphocyte Count 0.66 X10^3/uL (0.83-4.51); Absolute Neutrophil Count 6.3 X10^3/uL (2.0-7.7); Eosinophil# 0.02 X10^3/uL; Eosinophils% 0.3 % (0-5); Hematocrit 24.2 % (40-54); Hemoglobin 7.3 g/dL (13.0-16.5); Lymphocyte # 0.66 X10^3/ul (0.83-4.51); Lymphocyte % 8.8 % (19-41); Mean Corp Hgb Conc 30.2 g/dL (32-36); Mean Corpuscular Hgb 25.4 pg (27.0-32.0); Mean Corpuscular Volume 84.3 fL (80-94); Mean Platelet Vol. 9.7 fl (6.2-12.0); Monocyte# 0.42 X10^3/uL; Monocyte% 5.6 % (0-10); NRBC Flagged by Analyzer 0.7 % (0-5); Neutrophil # 6.32 X10^3/uL (2.7-7.7); Neutrophil % 84.6 % (47-70); POSITIVE COUNT YES; POSITIVE MORPHOLOGY YES; Platelet Count 72 K/mm3 (150-450); RBC Distribution Width CV 21.9 % (11.6-14.6); RBC Distribution Width SD 59.5 fl (35.1-43.9); Red Blood Count 2.87 M/mm3 (4.6-6.2); White Blood Count 7.5 K/mm3 (4.4-11.0)
[2021-09-12 07:43] LABS: Differential Indicated SCAN CRITERIA MET
[2021-09-12] MEDS: Folic Acid 1 MG Tablet PO (07:43)
[2021-09-12] MEDS: Phenobarbital 32.4 MG Tablet PO ×3 (07:46→21:01)
[2021-09-12] MEDS: Albuterol 2.5 MG/3 ML VIAL.NEB. INHALATION ×2 (07:47→20:10)
[2021-09-12] MEDS: Thiamine Hydrochloride 100 MG Tablet PO (07:48)
[2021-09-12] MEDS: Na Biphos/Potassium Phosphate PACKET 1 PACKET PO ×3 (07:49→21:01)
[2021-09-12 07:57] LABS: Magnesium 1.4 mg/dL (1.6-2.6)
[2021-09-12 08:20] LABS: Anisocytosis 1+; Hypochromasia 1+; Platelet Estimate SLT DEC (ADEQ)
--- NOTE | 2021-09-12 09:20 | US_ITS ---
PROCEDURE: Ultrasound guided paracentesis. DATE OF EXAMINATION: 09/12/2021. INDICATION: Male, 61 years old. Ascites. PHYSICIAN: Remy Trivedi M.D. TECHNIQUE: The risks, benefits, and alternatives to the procedure were explained to the patient. The specific risks of bleeding, infection, and damage to bowel were detailed and accepted. Witnessed informed consent was obtained. The abdomen was ultrasonographically surveyed. An appropriate pocket of fluid was identified at the right lower quadrant. The skin were cleaned and prepped in the usual sterile fashion. Using ultrasound guidance, the peritoneal cavity was accessed with a 5-Yemeni paracentesis needle/catheter system. The trocar was removed. A total of 2350 ml of nati-colored fluid were removed from the peritoneal cavity. A 100 mL sample was sent to laboratory for testing. The catheter was removed and a sterile dressing was applied. The procedure was well tolerated. US/Paracentesis with US IMPRESSION: Ultrasound guided paracentesis. Electronically Signed: Remy Trivedi MD at 11:32 EDT ,
--- NOTE | 2021-09-12 09:53 | CASEMGMT ---
Social Work Per SALOME Ogden pt not ready for discharge today but possibly in the next day or two. MALIA spoke with Jeane at [facility] and requested precert be started. Phone call to pt friend Yaz Ramy and informed about discharge plan. Yaz is agreeable with discharge to [facility] and confirms pt cannot return home. Plan: [facility], precert pending TAMMI Valle
[2021-09-12] MEDS: Lidocaine 2% (20 ml mdv) 20 ML Vial INFILT (10:20)
--- NOTE | 2021-09-12 10:55 | PCM.PN.HOSP ---
Documented by User: ROSSANA Johnston 09/12/21 11:03 Subjective Subjective Patient seen and examined. Patient sitting in chair no distress noted. Patient working with PT and OT during evaluation. Patient to go for paracentesis today Objective Data Objective Data Vital Signs: Vital Signs Temp Pulse Resp BP Pulse Ox 98.6 F 108 H 22 H 144/77 H 98 09/12/21 07:58 09/12/21 10:28 09/12/21 10:28 09/12/21 10:28 09/12/21 09:16 Oxygen Flow Rate (L/min) [3] 2 Oxygen Flow Rate (L/min) [2] 2 Oxygen Flow Rate (L/min) 2 Oxygen Delivery Method [3] Nasal Cannula Oxygen Delivery Method [2] Nasal Cannula Oxygen Delivery Method [1 ( Room Air Initial Baseline)] Oxygen Delivery Method Room Air Weight: 152 lb 8.958 oz Body Mass Index (BMI) 24.5 Intake & Output: Intake and Output for Last 24 Hours 09/10/21 09/11/21 09/12/21 23:59 23:59 23:59 Intake Total 2139.25 / 2139.25 2500.5833 / 2600.5833 200 / 200 Output Total 710 / 710 500 / 600 700 / 700 Balance 1429.25 / 1429.25 2000.5833 / 1999.5833 -500 / -500 Lab / Micro Data Result Diagrams: 09/12/21 07:27 09/12/21 06:20 Labs: Laboratory Results - last 24 hr 09/12/21 06:20: Sodium 144, Potassium 2.7 L*, Chloride 111 H, Carbon Dioxide 23.0, Anion Gap 10, BUN 5 L, Creatinine 1.07, Estim Creat Clear Calc 65.42, Est GFR (MDRD) Af Amer 90, Est GFR (MDRD) Non-Af 75, BUN/Creatinine Ratio 4.7 L, Glucose 100, Calcium 7.8 L, Phosphorus 2.7, Total Bilirubin 1.10 H, AST 76 H, ALT 52, Alkaline Phosphatase 178 H, Total Protein 5.8 L, Albumin 2.5 L, Globulin 3.3, Albumin/Globulin Ratio 0.8 L 09/12/21 06:20: Magnesium 1.4 L 09/12/21 07:27: WBC 7.5, RBC 2.87 L, Hgb 7.3 L, Hct 24.2 L, MCV 84.3, MCH 25.4 L, MCHC 30.2 L, RDW Std Deviation 59.5 H, RDW Coeff of Donnie 21.9 H, Plt Count 72 L, MPV 9.7, Immature Gran % (Auto) 0.700, Neut % (Auto) 84.6 H, Lymph % (Auto) 8.8 L, Price % (Auto) 5.6, Eos % (Auto) 0.3, Baso % (Auto) 0.0, Absolute Neuts (auto) 6.3, Absolute Lymphs (auto) 0.66 L, Nucleated RBC % 0.7, Platelet Estimate SLT DEC, Hypochromasia 1+, Anisocytosis 1+ Micro: Microbiology 09/08/21 14:15 Stool Stool Occult Blood (OLAYINKA) - Final Occult Blood Positive 09/08/21 13:30 Nasal Secretion SARS-CoV-2 & FLU Antigen (Rapid) - Final Physical Exam Const alert General Appearance: cooperative Orientation / Consciousness: oriented to person and oriented to place HEENT normocephalic and head/scalp atraumatic Eyes conjunctivae normal and no scleral icterus Neck supple General: trachea midline Resp normal respiratory effort and normal air movement Effort and Inspection: able to speak in complete sentences, symmetric chest movement and tachypneic Auscultation: rhonchi lower bilaterally Cardio regular rate, regular rhythm, S1 normal heart sound, S2 normal heart sound and peripheral pulses 2+ throughout GI Auscultation: normoactive bowel sounds Palpation: tender and ascites Extremity normal capillary refill General Extremity: edema bilateral lower extremity Details: trace and no tenderness to palpation of joints or extremities Skin no rashes or lesions noted and no wounds General Skin Exam: turgor normal Neuro no focal motor deficits and no sensory deficits noted Motor Exam: general weakness Psych Appearance: unkempt and disheveled Attitude: bizarre Mood & Affect: flat affect Assessment & Plan Assessment/Plan (1) Cirrhosis: QUALIFIERS: Ascites presence: with ascites Hepatic cirrhosis type: unspecified hepatic cirrhosis Qualified Code(s): K74.60 - Unspecified cirrhosis of liver; R18.8 - Other ascites (2) Failure to thrive in adult: (3) Anemia: QUALIFIERS: Anemia type: unspecified type Qualified Code(s): D64.9 - Anemia, unspecified PLAN: 1. Gastritis -Continues to report pain however states this is improving -Continue IV Protonix -As needed medications for nausea vomiting and diarrhea ordered -Occult blood positive stool -Patient underwent EGD 09/10/[address] Phelps today which demonstrated grade 2 esophageal varices, incompletely eradicated, banded. Z-line irregular 40 cm from the incisors. Medium sized hiatal hernia. Type I gastroesophageal varices which extend along the lesser curvature without bleeding. A single duodenal polyp resected and retrieved. -Patient ordered full liquid diet -White blood cell count improved 2. Failure to Thrive -Consult social work and case management as patient lives at home alone and cannot take care of himself -PT, OT, ST following -Maintain urinary catheter 3. Hypokalemia -Patient potassium 2.7 today -Sodium biphosphate and potassium packet ordered to begin tomorrow -CMP daily 4. Hypophosphatemia-resolved -Phosphorus 2.7 today -K-Phos IV given, sodium biphosphate and potassium packet ordered to begin tomorrow 5. Hyponatremia-resolved -Sodium improved, 141 -Likely secondary to alcohol use -Daily CMP 5. Acute on chronic anemia -Patient is chronically anemic hemoglobin baseline 8.0-9.0 -Hemoglobin 7.3 -CBC daily 6. Alcohol abuse with cirrhosis -Patient is reportedly a 4-5 12 ounce beer drinker a day -Phenobarbital taper ordered -Protocol along with supportive medications including thiamine and folic acid -Paracentesis ordered for today due to increasing ascites 7. Tobacco abuse -Nicotine patch ordered Will continue medications for chronic diseases including depression, hypertension, GERD, chronic back pain, hyperlipidemia, A. fib as appropriate once verified. DVT prophylaxis-SCDs This patient was seen by Sandra Pemberton NP-C under the supervision of Dr. Merino 15 minutes spent in clinical coordination of patient's plan of care. Documented by User: Dr. Luis Miguel Merino MD 09/12/21 11:33 Subjective Subjective Follow-up for alcoholic cirrhosis complicated with ascites, gastroesophageal varices. Patient also oropharyngeal dysphagia being managed by speech therapist. Objective Data Lab / Micro Data Result Diagrams: 09/12/21 07:27 09/12/21 06:20 Physical Exam Narrative Seen and examined. Patient looks very weak, dehydrated. He also has wheezing sound. Needs 2 people assist to get out of chair on the bed. General: Alert awake oriented x3. HEENT: Atraumatic, PERRLA, EOMI, Normocephalic Oral: Oral mucosa dry. No Gingival or Mucosal Lesions/ Ulcerations Neck: Supple, No JVD, Negative Carotid Bruits Lungs: Air entry diminished in bilateral lung bases. Bilateral coarse wheezing. SOB on exertion Cardiovascular: Regular rate, Regular Rhythm, Normal S1, Normal S2, No murmurs Abdomen: Abdomen distended, ascites. Shifting dullness present. Nontender. Bowel Sounds sluggish : UOP 1000 mL in 24 hours. Shields catheter. No renal angle tenderness. No suprapubic tenderness. Extremities: No edema, Capillary Refill Less than 3 Seconds Skin: No rashes, No breakdown Musculoskeletal: ROM restricted over hip and knee joints. Stiffness of joints. No point tenderness over palpation of hip and knee joints. Neurological: Cranial nerves II-XII grossly intact, DTR 2+/4 and Symmetrical, Neuro grossly intact Psych/Mental Status: Flat affect. Assessment & Plan Assessment/Plan (1) Cirrhosis: QUALIFIERS: Ascites presence: with ascites Hepatic cirrhosis type: unspecified hepatic cirrhosis Qualified Code(s): K74.60 - Unspecified cirrhosis of liver; R18.8 - Other ascites PLAN: This patient was seen in conjunction with ION Flores. I have independently interviewed and examined the patient and reviewed pertinent history, examination findings, laboratory and plan of management. I have reviewed the note and agree with the documented findings with the few additional points. In brief, patient is 61-year-old gentleman with history of chronic alcohol use and dependence, stroke and other comorbidities admitted with generalized weakness. He was found not responding to his friend, covered in his own feces and urine found to be cold. He was somnolent therefore brought to ED by EMS and admitted. Assessment and plan 1. Decompensated cirrhosis most likely alcoholic cirrhosis with gastroesophageal varices, ascites and toxic metabolic encephalopathy. Patient seen by lab tester and had EGD today. Patient had EGD reported grade 2 esophageal varices, incompletely eradicated, banded. Z-line irregular, medium-sized hiatus hernia. GOV 1 without bleeding. Single duodenal polyp. Full liquid diet recommended. On lactulose. Patient had diagnosis of esophageal varices on previous EGD in 2014. Ceftriaxone 1 g daily for possible GI bleed in the setting of ascites as he is high risk for SBP. Calculated MELD Na is 16, less than 2% estimated 90-day mortality. 09/11: Plan for colonoscopy today. 09/12: Diverticulosis in the rectosigmoid, sigmoid colon and descending colon. Hemorrhoidal. Patient is scheduled for diagnostic paracentesis. Looks very dehydrated. IV fluid D5 0.2 NS with KCl for nutritional purposes And hydration. Oropharyngeal dysphagia, on modified dysphagia diet under supervision as per speech therapist. 2. Acute on chronic anemia most likely due to cirrhosis/chronic iron deficiency anemia, hyponatremia, severe protein calorie malnourished with evidence of loss of subcutaneous fat and mild to moderate atrophy of muscles of extremity. 09/11: Hemoglobin 7.7. 09/12: Hemoglobin remains low, 7.3, MCV normal. Thrombocytopenia 72,000. Acute anemia probably due to chronic blood loss anemia from varices. IV iron to 50 mg ordered. Patient has paracentesis. Cell count and chemistry pending. 3. Hyponatremia, hypomagnesemia and hypophosphatemia: Electrolytes are being monitored and getting replaced as per lab abnormality. Hyponatremia is chronic mainly hypotonic hypervolemic hyponatremia from cirrhosis. On Neutra-Phos 09/11: Patient has hypokalemia and hypophosphatemia. On IV phosphate. Continue Neutra-Phos from tomorrow 09/12: Hypomagnesemia, hypokalemia: Electrolyte replacement ordered. 4. Bilateral carotid stenosis, history of a stroke. 5. Coronary artery status post PTCA/PCI in 2016. On Plavix. 6. FLEX stage I on CKD stage II possible HRS: Patient had 100 mL urine output last 16 hours which is less than 210 mL/h therefore stage I of FLEX. Patient also has fluctuation of creatinine clearance but usually it is around 80mL/min therefore he stays to CKD mainly due to fluid shift. Patient had colon prep and loose bowel movement for most probably prerenal. Patient has Shields catheter. 1 L Ringer lactate bolus and then 25 g of IV albumin. 6/1: Creatinine 1.07. BUN low suggestive of low muscle mass. There was improvement of urine output after Ringer lactate and IV albumin yesterday. IV albumin ordered today. Overall poor prognosis. Diffuse sarcopenia, low muscle mass and subcutaneous tissue. Severe protein calorie malnutrition. I have discussed my assessment with Sandra, BLANKET WINDER OPERATOR and orders have been reviewed. Total time of the visit including total time spent in counseling or coordination of care, (more than 50% of the total time, spent in obtaining medical information from nurses and other ancillary care providers,explaining to the patient about labs, imaging, diagnosis and management), review of labs and imaging is 40 minutes I spent 25 minutes and BLANKET WINDER OPERATOR spent 15 minutes.
[2021-09-12] MEDS: Ceftriaxone 1 GM/50 ML BAG IV (11:07)
[2021-09-12 11:09] LABS: Cytology, Body Fluid / CSF SEE PATHOLOGY REPORT
[2021-09-12 11:28] LABS: Body Fluid Mononuclear WBC # 0.019 10^3/uL; Body Fluid Polynuclear WBC # 0.006 10^3/uL; Body Fluid Total Cells Counted 0.036 10^3/ul; White Blood Count/Body Fluid 0.025 10^3/uL
[2021-09-12 11:30] LABS: Auto B Fluid Analyzer BKGD Ct COUNTS W/IN LIMITS (W/IN LIMITS); Color/Body Fluid YELLOW; Source- Body Fluid OTHER
[2021-09-12 11:31] LABS: Appearance/Body Fluid CLEAR
[2021-09-12 11:41] LABS: Red Cell Count/Body Fluid 10 /mm3
[2021-09-12] MEDS: Metoprolol Tartrate 100 MG Tablet PO ×2 (12:05→21:00)
[2021-09-12] MEDS: Citalopram 20 MG Tablet PO (12:06)
[2021-09-12] MEDS: amLODIPine 5 MG Tablet PO (12:06)
[2021-09-12] MEDS: Menthol/Lanolin/Calamine/Znox 113 GM Tube 1 APPLIC TOPICAL ×2 (12:06→21:01)
[2021-09-12] MEDS: buPROPion (XL) 150 MG TABLET.XL PO (12:07)
[2021-09-12 12:11] LABS: Lymphocytes 60 %; Monocytes 20 %; Neutrophil (Segs) 10 %; Other Cell Type/BF 10 %
[2021-09-12 12:14] LABS: Body Fluid QC Type(s) BF1,BF2
[2021-09-12 12:21] LABS: Glucose, Body Fluid 114 mg/dL (40-70); LDH,Body Fluid 73 Units/l (Not Establ.)
--- NOTE | 2021-09-12 15:09 | ST.MBS ---
Modified Barium Swallow - Patient Information Study Date: 09/12/21 Study Time: 14:30 Direct Billable Minutes: 120 Total Minutes procedure & reportin Diagnosis: COPD (J44.9) Referring Physician: Luis Miguel Meirno Reason for Referral: Objectively assess swallow function, risk for aspiration, and determine recommendations for least restrictive diet textures and compensatory strategies to improve safety of swallow. Medical History: Dominic Najera is a 61-year-old male who presented to [facility] ED 09/08/2021 who was found by police at his residence in feces and urine curled up in a ball. He reported feeling ill for 1 week. He has extensive PMH including alcohol use (4-5 12 ounce beers per day), atrial fibrillation, GERD, CAD, COPD, hypertension, hyperlipidemia, CVA, smoker, heart attack, GI bleed (SEE EMR for full PMH). 09/08/2021 pt was made NPO after aspiration event of po intake. He was recommended for speech therapy consult. The patient was placed on puree textures / nectar thick liquid diet. Upper GI 09/10/2021 revealing esophageal varices - banded, medium sized hiatal hernia, single duodenal polyp - resected (SEE EMR for full impressions). Recommended for full liquid diet. Colonoscopy 09/11/2021 revealing diverticulosis. Ok to resume previous diet but pt NPO for paracentesis 09/12/2021. RN concerned for resuming diet due to rhonchorous breathing and lung sounds, as well as weak, wet nonproductive cough METAL [employer]INEERING PROCESS WORKER reassessed swallow function and recommended NPO with ice chips and meds crushed in applesauce permitted. METAL ENGINEERING PROCESS WORKER recommending MBS study to objectively assess aspiration risk prior to diet advancement due to concerns for silent aspiration. Current Diet Ordered: NPO w/ ice chips and meds crushed Dentition: Natural Teeth Mental Status: Impaired Respiratory Status: Oxygenating on Room Air - Penetration-Aspiration Scale Penetration-Aspiration Scale: OBJECTIVE ASSESSMENT OF SWALLOW FUNCTION (QUANTITATIVE ? PER TRIAL): PENETRATION / ASPIRATION SCALE (MCCABE): 1 = does not enter airway 2 = enters airway/above vocal folds/ejected 3 = enters airway/above vocal folds/not ejected 4 = enters airway/contacts vocal folds/ejected 5 = enters airway/contacts vocal folds/not ejected 6 = enters airway/below vocal folds/ejected 7 = enters airway/below vocal folds/not ejected despite effort 8 = enters airway/below vocal folds/no effort VIDEOFLOROSCOPIC SCALE SCORE (MCCABE): Grade I = aspiration of material that has penetrated into the laryngeal vestibule, intact cough reflex Grade II = aspiration < 10 % of the bolus, intact cough reflex Grade III = aspiration of < 10 % of the bolus, reduced cough reflex or aspiration of > 10 % of the bolus, intact cough reflex Grade IV = aspiration of > 10 % of the bolus, reduced cough reflex - Penetration-Aspiration Scale Score Thin Liquid via teaspoon Result: 1= does not enter airway Thin Liquid via teaspoon Trial 2 Result: 1= does not enter airway Thin Liquid via large single sip from cup Result: 7= enters airways/below vocal folds/not ejected despite effort Comment: Grade III = aspiration of < 10 % of the bolus, reduced cough reflex Thin Liquid via small single sip from cup Result: 1= does not enter airway [place] Thick Liquid via large single sip from cup Result: 1= does not enter airway [place] Thick Liquid via small single sip from cup Result: 1= does not enter airway [place] Thick Liquid via small single sip from cup Result: 1= does not enter airway Pudding via teaspoon w/ esophageal screen Result: 1= does not enter airway 1/4 Cookie Result: 1= does not enter airway Thin Liquid via teaspoon Trial 3 Result: 1= does not enter airway [place] Thick Liquid via large single sip from cup Trial 2 Result: 8= enters airway/below vocal folds/no effort Comment: Grade III = aspiration of < 10 % of the bolus, NO cough reflex Thin Liquid via teaspoon Trial 4 Result: 1= does not enter airway - Oral Phase Labial Seal: Escape beyond mid-chin Tongue Control During Bolus Hold: Posterior escape of greater than half of bolus Bolus Preparation/Mastication: Disorganized chewing/mashing with solid pieces of bolus unchewed Bolus Transport/Lingual Motion: Repetitive/disorganized tongue motion Oral Residue: Residue collection on oral structures - Pharyngeal Phase Initiation of Pharyngeal Swallow: Bolus head in pyriforms Soft Palate Elevation: No bolus between soft palate and pharyngeal wall Laryngeal Elevation: Partial superior movement thyroid cart/partial apprx aryt-epig petiole Anterior Hyoid Excursion: Complete anterior movement Epiglottic Movement: Complete inversion Pharyngeal Stripping Wave: Present - diminished Pharyngoesophageal Segment Opening: Parital distension and partial duration; parital obstruction of flow Tongue Base Retraction: Wide column of contrast between tongue base & post. pharyngeal wall Pharyngeal Residue: Collection of residue within or on pharyngeal structures - Esophageal Phase Esophageal Clearance: Esophageal retention w/ retrograde flow below pharyngoesophageal seg. - Diagnosis/Impression Diagnosis: Mod oropharyngeal dysphagia (R13.12), mod esophageal dysphagia (R13.14) Impression: The patient appeared lethargic. He was verbally responsive and followed simple commands WNL; however, he required cues during MBS study to keep eyes open. The oral phase is marked by poor bolus control with frequent premature posterior loss of >1/2 of various liquid and solids boluses throughout study. He demonstrated premature posterior loss of large cup sip of portion of thin and nectar thick trial to the laryngeal vestibule with resulting aspiration during the swallow. He also has decreased mastication abilities with small pieces of cookie bolus appearing unchewed and disorganized A-P transport of bolus. He had mild-moderate oral residue after the swallow. The pharyngeal phase is primarily marked by delayed swallow onset, decreased tongue base retraction, decreased laryngeal elevation, and decreased pharyngeal contraction. He had mild-moderate pharyngeal residue after the swallow, especially noted with larger boluses. Residue somewhat increased with boluses of thicker viscosity. He demonstrated SILENT aspiration of nectar thick liquids via cup during the swallow and aspiration of thin liquids via cup during the swallow with weak, ineffective cough reflex. The patient greatly benefits from decreased bolus size to decrease risk for aspiration. The esophageal phase is marked by slowed esophageal emptying with little clearance of pudding via tsp from lower esophagus after ~45 seconds. He also demonstrated retrograde flow of pudding bolus to mid esophagus. He is at increased risk for aspiration of reflux. - Recommendations Diet: Puree Textures, Thin Liquids Comment: FEED ONLY IF FULLY ALERT, frequent oral care, consider smaller more frequent meals Compensatory Strategies: Small Bites, Liquid by Teaspoon Only, Slow Rate, Alternate bites/solids and sips/liquids, Sitting upright, Remain sitting upright for 30 minutes after PO intake - 60 minutes after meal Supervision: Total Feed - DISCONTINUE MEAL IF INCREASED S/S OF ASPIRATION Recommend Repeat Modified Barium Swallow: Yes Comment: Will recommend repeat MBS study after 2-4 weeks of oropharyngeal strengthening. Need for Skilled Speech Therapy Services: Yes Comment: Will recommend the patient for continued dysphagia therapy to address deficits in oropharyngeal swallow function. Would consider the patient for oropharyngeal strengthening to improve lingual coordination, laryngeal elevation, tongue base retraction, and pharyngeal contraction (lingual resistance, Lovely, tongue retraction, effortful, CTAR). The patient and staff would benefit from thorough education regarding diet recommendations and recommended compensatory strategies. If improved alertness and good diet tolerance, consider trialing ground textures for diet advancement. Would not increase bolus size without repeat MBS study. Recommended Referrals: GI Consult - Recent upper GI completed. Will recommend continued management of reflux due to high risk for reflux aspiration., Dietitian Consult - Spoke w/ auto tester discussing METAL ENGINEERING PROCESS WORKER concerns for the pt maintaining adequate nutrition & hydration via oral intake with strict aspiration & reflux precauti. Requested auto tester follow closely in upcoming days & consider the patient for alternative means of nutrition if deemed clinically appropriate. Education Completed: 1. Described result of evaluation. - Reviewed results and recommendations with RNGertrudis, via phone call and nursing communication note., 7. Pt requires further education on strategies & risks. - Image Count: [phone] - Status Active ST Patient: Active - Contact Information [facility] Speech Therapy:: July Hernández M.A. [facility]-METAL ENGINEERING PROCESS WORKER Speech-Language Pathologist [facility] [address] [place] [address] [phone] 09/12/21 15:48
[2021-09-12] MEDS: Albumin Human 25% (100 mL) 25 GM/100 ML BAG IV (15:53)
--- NOTE | 2021-09-12 17:01 | PN_ITS ---
Subjective Subjective Patient underwent large-volume paracentesis today. He does feel a lot better after undergoing the removal of Large-volume ascites. Objective Data Objective Data Vital Signs: Vital Signs Temp Pulse Resp BP Pulse Ox 98.2 F 100 20 H 123/98 H 97 09/12/21 11:13 09/12/21 14:00 09/12/21 11:13 09/12/21 11:13 09/12/21 11:13 Oxygen Flow Rate (L/min) [3] 2 Oxygen Flow Rate (L/min) [2] 2 Oxygen Flow Rate (L/min) 2 Oxygen Delivery Method [3] Nasal Cannula Oxygen Delivery Method [2] Nasal Cannula Oxygen Delivery Method [1 ( Room Air Initial Baseline)] Oxygen Delivery Method Room Air Weight: 152 lb 8.958 oz Body Mass Index (BMI) 24.5 Intake & Output: Intake and Output for Last 24 Hours 09/10/21 09/11/21 09/12/21 23:59 23:59 23:59 Intake Total 2139.25 / 2139.25 2500.5833 / 2600.5833 676.82 / 676.82 Output Total 710 / 710 500 / 600 900 / 900 Balance 1429.25 / 1429.25 1999.5833 / 1999.5833 -223.18 / -223.18 Lab / Micro Data Result Diagrams: 09/12/21 07:27 09/12/21 06:20 Labs: Laboratory Results - last 24 hr 09/12/21 06:20: Sodium 144, Potassium 2.7 L*, Chloride 111 H, Carbon Dioxide 23.0, Anion Gap 10, BUN 5 L, Creatinine 1.07, Estim Creat Clear Calc 65.42, Est GFR (MDRD) Af Amer 90, Est GFR (MDRD) Non-Af 75, BUN/Creatinine Ratio 4.7 L, Glucose 100, Calcium 7.8 L, Phosphorus 2.7, Total Bilirubin 1.10 H, AST 76 H, ALT 52, Alkaline Phosphatase 178 H, Total Protein 5.8 L, Albumin 2.5 L, Globulin 3.3, Albumin/Globulin Ratio 0.8 L 09/12/21 06:20: Magnesium 1.4 L 09/12/21 07:27: WBC 7.5, RBC 2.87 L, Hgb 7.3 L, Hct 24.2 L, MCV 84.3, MCH 25.4 L , MCHC 30.2 L, RDW Std Deviation 59.5 H, RDW Coeff of Donnie 21.9 H, Plt Count 72 L , MPV 9.7, Immature Gran % (Auto) 0.700, Neut % (Auto) 84.6 H, Lymph % (Auto) 8.8 L, Bland % (Auto) 5.6, Eos % (Auto) 0.3, Baso % (Auto) 0.0, Absolute Neuts (auto) 6.3, Absolute Lymphs (auto) 0.66 L, Nucleated RBC % 0.7, Platelet Estimate SLT DEC, Hypochromasia 1+, Anisocytosis 1+ 09/12/21 09:20: Fluid Glucose 114 H, Fluid Total Protein 1.0, Fluid LDH 73 09/12/21 : Fluid Specific Grav 1.010 09/12/21 : Fluid Source OTHER, Fluid Color YELLOW, Fluid Appearance CLEAR, Fluid WBC 0.025, Fluid RBC 10, Fluid Tot Cell Count 0.036, Fld Polynuclear WBCs # 0.006, Fld Polynuclear WBCs % 24.0, Fluid Mononuclear WBCs 0.019, Fld Mononuclear WBCs % 76.0, Fluid Neutrophils 10, Fluid Lymphocytes 60, Fluid Monocytes 20, Fluid Other Cells 10, Fl Pathologist Comment May follow, Fluid Comment 2 SEE COMMENT Micro: Microbiology 09/12/21 Unknown Fluid - Paracentesis (Abd) Gram Stain - Final 09/08/21 14:15 Stool Stool Occult Blood (OLAYINKA) - Final Occult Blood Positive 09/08/21 13:30 Nasal Secretion SARS-CoV-2 & FLU Antigen (Rapid) - Final Radiography Diagnostic Testing: Radiology Impression Paracentesis Ultrasound 09/12/21 09:20 IMPRESSION: Ultrasound guided paracentesis. Electronically Signed: Remy Trivedi MD at 11:32 EDT , Physical Exam Const alert General Appearance: cooperative Orientation / Consciousness: oriented to person HEENT hearing grossly normal bilaterally Head and Scalp: normal to inspection Face and Sinus: face symmetric Nose: external nose normal Mouth: oral and palatal mucosa normal Eyes conjunctivae normal General Eye: normal appearance of both eyes Neck full ROM General: normal visual inspection Lymph Lymphatic: no lymphadenopathy noted Chest inspection of chest normal and palpation of chest normal Chest: symmetrical chest wall rise Resp normal respiratory effort Effort and Inspection: able to speak in complete sentences Cardio regular rate GI non-distended Percussion: normal to percussion Rectal Exam: deferred Neuro Speech: speech normal Gait (Neuro): normal gait Assessment & Plan Assessment/Plan (1) Hyperammonemia: PLAN: Hyperbilirubinemia is mostly resolved. He still has a slow response to questions and I believe is likely secondary to chronic alcoholism resulting in an Warnicke's encephalopathy. Would have him on B12 and folic acid on a daily basis. 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 He is better from that standpoint. His meld was elevated 20 when he arrived and it is decreased down to 10 after his hyperammonia anemia improved and him undergoing large-volume paracentesis. He is not showing any signs of SBP.The only abnormality from the ascitic fluid was an elevated glucose level. in patients with ascites produced by portal hypertension or hypoproteinemia, the glucose values were higher in ascitic fluid than in blood. In patients with peritoneal affections, the glucose levels were mostly equal to or lower than those in blood. (3) Anemia: QUALIFIERS: Anemia type: unspecified type Qualified Code(s): D64.9 - Anemia, unspecified PLAN: His hemoglobin is slightly down from 7.7-7.3. I would not transfuse any blood until he goes about a low hemoglobin of 7 or his hematocrit dropped to 29%. (4) Ascites: PLAN: Since he underwent large-volume paracentesis and his glucose level was high I do not recommend him going ciprofloxacin 750 once a week for Bactrim 1 double strength twice a day to prevent SBP. There are some good studies regarding midodrine for the use of decreasing ascitic fluid. However I am not sure to be compliant with midodrine at this time. I would recommend low-dose Lasix 20 mg a day and Aldactone 25 mg therapy for an appointment discharge. Charges/Coding Visit Charges Inpatient E&M: 30703 Subs Hosp L3
[2021-09-12] MEDS: Budesonide Respules 0.5 MG/2 ML AMPUL.NEB. INHALATION (20:10)
[2021-09-12] MEDS: Magnesium Chloride 64 MG Delay Rel.Tablet 128 MG PO (21:00)
[2021-09-13] VITALS (13 sets, daily range): BP systolic 123–140; BP diastolic 71–86; PULSE 99–110; RESP 18–24; TEMP 36.6–37.1; O2SAT 93–100
[2021-09-13] MEDS: Lactulose 20 GM/30 ML UDC PO ×2 (02:12→06:32)
[2021-09-13 06:16] LABS: Basophil# 0.01 X10^3/uL; Basophil% 0.2 % (0-1); Hemoglobin 7.2 g/dL (13.0-16.5); Lymphocyte % 8.4 % (19-41); Mean Corp Hgb Conc 28.8 g/dL (32-36); Mean Corpuscular Hgb 25.1 pg (27.0-32.0); Mean Corpuscular Volume 87.1 fL (80-94); Mean Platelet Vol. 10.4 fl (6.2-12.0); Monocyte# 0.41 X10^3/uL; Monocyte% 6.9 % (0-10); NRBC Flagged by Analyzer 0.7 % (0-5); Neutrophil # 4.98 X10^3/uL (2.7-7.7); Neutrophil % 83.8 % (47-70); POSITIVE COUNT YES; POSITIVE DIFFERENTIAL YES; POSITIVE MORPHOLOGY YES; Platelet Count 54 K/mm3 (150-450); RBC Distribution Width CV 22.9 % (11.6-14.6); RBC Distribution Width SD 61.9 fl (35.1-43.9); Red Blood Count 2.87 M/mm3 (4.6-6.2); White Blood Count 5.9 K/mm3 (4.4-11.0)
[2021-09-13 06:22] LABS: Differential Indicated SCAN CRITERIA MET
[2021-09-13 06:45] LABS: Anisocytosis 2+; Platelet Estimate MOD DEC (ADEQ)
[2021-09-13 06:46] LABS: ALB/GLOB Ratio 0.8 RATIO (0.9-2.4); AST(SGOT) 53 U/L (15-37); Alanine Aminotransfer ALT/SGPT 48 U/L (16-61); Albumin, Serum 2.8 g/dL (3.2-5.0); Alkaline Phosphatase 180 U/L (45-117); Anion Gap 9 (5-15); BUN 3 mg/dL (7-18); BUN/Creat Ratio 2.6 RATIO (10-20); Calcium,Total 8.2 mg/dL (8.5-10.1); Chloride 121 mmol/L (98-107); Creatinine, Serum 1.16 mg/dL (0.70-1.30); EST Glomerular Filtration Rate 68 mL/min (>60); Est Glom Filt Rate - Afr Amer 82 mL/min (>60); Estimated Creatinine Clearance 60.35 ml/min; Globulin 3.7 g/dL (2.2-4.2); Glucose 122 mg/dL (74-106); Potassium 2.7 mmol/L (3.5-5.1); Protein, Total 6.5 g/dL (6.4-8.2); Sodium Level 152 mmol/L (136-145)
[2021-09-13] MEDS: Budesonide Respules 0.5 MG/2 ML AMPUL.NEB. INHALATION ×2 (07:35→19:27)
[2021-09-13] MEDS: Potassium Chloride 10mEq/100mL 10 MEQ/100 ML IV.SOLN. 100 MEQ IV BOLUS ×4 (08:06→12:44)
[2021-09-13] MEDS: Folic Acid 1 MG Tablet PO (08:13)
[2021-09-13] MEDS: Thiamine Hydrochloride 100 MG Tablet PO (08:14)
[2021-09-13 08:16] LABS: Magnesium 1.8 mg/dL (1.6-2.6); Phosphorus 3.2 mg/dL (2.5-4.9)
--- NOTE | 2021-09-13 09:10 | PN.HOSP_ITS ---
Documented by User: Debbie Cantu SPECIMEN ACCESSIONER, SPECIMEN ACCESSIONER-C 09/13/21 10:25 Subjective Subjective Patient seen and examined. Drowsy however easily arousable. Denies shortness of breath, appears mildly dyspneic. Denies nausea, vomiting, diarrhea. Objective Data Objective Data Vital Signs: Vital Signs Temp Pulse Resp BP Pulse Ox 97.8 F 110 H 18 140/72 H 99 09/13/21 02:10 09/13/21 07:35 09/13/21 07:35 09/13/21 02:10 09/13/21 07:35 Oxygen Flow Rate (L/min) [3] 2 Oxygen Flow Rate (L/min) [2] 2 Oxygen Flow Rate (L/min) 3 Oxygen Delivery Method [3] Nasal Cannula Oxygen Delivery Method [2] Nasal Cannula Oxygen Delivery Method [1 ( Room Air Initial Baseline)] Oxygen Delivery Method Nasal Cannula Weight: 152 lb 8.958 oz Body Mass Index (BMI) 24.5 Intake & Output: Intake and Output for Last 24 Hours 09/11/21 09/12/21 09/13/21 23:59 23:59 23:59 Intake Total 2500.5833 / 2600.5833 2654.8433 / 2654.8433 Output Total 500 / 600 1430 / 1630 450 / 450 Balance 2000.5833 / 2000.5833 1224.8433 / 1024.8433 -450 / -450 Lab / Micro Data Result Diagrams: 09/13/21 06:07 09/13/21 06:07 Labs: Laboratory Results - last 24 hr 09/12/21 09:20: Fluid Glucose 114 H, Fluid Total Protein 1.0, Fluid LDH 73 09/12/21 : Fluid Specific Grav 1.010 09/12/21 : Fluid Source OTHER, Fluid Color YELLOW, Fluid Appearance CLEAR, Fluid WBC 0.025, Fluid RBC 10, Fluid Tot Cell Count 0.036, Fld Polynuclear WBCs # 0.006, Fld Polynuclear WBCs % 24.0, Fluid Mononuclear WBCs 0.019, Fld Mononuclear WBCs % 76.0, Fluid Neutrophils 10, Fluid Lymphocytes 60, Fluid Monocytes 20, Fluid Other Cells 10, Fl Pathologist Comment May follow, Fluid Comment 2 SEE COMMENT 09/13/21 06:07: WBC 5.9, RBC 2.87 L, Hgb 7.2 L, Hct 25.0 L, MCV 87.1, MCH 25.1 L , MCHC 28.8 L, RDW Std Deviation 61.9 H, RDW Coeff of Donnie 22.9 H, Plt Count 54 L , MPV 10.4, Immature Gran % (Auto) 0.700, Neut % (Auto) 83.8 H, Lymph % (Auto) 8.4 L, [place] % (Auto) 6.9, Eos % (Auto) 0.0, Baso % (Auto) 0.2, Absolute Neuts (auto) 5.0, Absolute Lymphs (auto) 0.50 L, Nucleated RBC % 0.7, Platelet Estimate MOD DEC, Anisocytosis 2+ 09/13/21 06:07: Sodium 152 H, Potassium 2.7 L*, Chloride 121 H, Carbon Dioxide 22.0, Anion Gap 9, BUN 3 L, Creatinine 1.16, Estim Creat Clear Calc 60.35, Est GFR (MDRD) Af Amer 82, Est GFR (MDRD) Non-Af 68, BUN/Creatinine Ratio 2.6 L, Glucose 122 H, Calcium 8.2 L, Total Bilirubin 1.10 H, AST 53 H, ALT 48, Alkaline Phosphatase 180 H, Total Protein 6.5, Albumin 2.8 L, Globulin 3.7, Albumin/Globulin Ratio 0.8 L 09/13/21 06:07: Phosphorus 3.2, Magnesium 1.8 Micro: Microbiology 09/12/21 Unknown Fluid - Paracentesis (Abd) Gram Stain - Final 09/08/21 14:15 Stool Stool Occult Blood (OLAYINKA) - Final Occult Blood Positive 09/08/21 13:30 Nasal Secretion SARS-CoV-2 & FLU Antigen (Rapid) - Final Radiography Diagnostic Testing: Radiology Impression Paracentesis Ultrasound 09/12/21 09:20 IMPRESSION: Ultrasound guided paracentesis. Electronically Signed: Remy Trivedi MD at 11:32 EDT , Physical Exam Const alert and oriented x3 Constitutional Narrative: Appears fatigued, drowsy HEENT normocephalic Mouth: dry mucous membranes Eyes PERRL, EOMs intact bilaterally and conjunctivae normal Neck no lymphadenopathy Resp Effort and Inspection: tachypneic Auscultation: rhonchi and diminished lung sounds Cardio regular rate, regular rhythm and no murmurs Peripheral Pulses: pulses 2+ throughout GI normal to inspection, nondistended, normoactive bowel sounds, non-tender and non-distended Extremity normal to inspection Extremity Narrative: Bilateral lower extremities, ascites General Extremity: edema Skin no rashes or lesions noted Lesions: no lesions Rashes: no rashes Trauma: no lacerations or abrasions Neuro CN's II-XII intact bilaterally, no focal motor deficits, no sensory deficits noted and deep tendon reflexes 2+ bilaterally Psych Mood & Affect: flat affect Assessment & Plan Assessment/Plan (1) Cirrhosis: QUALIFIERS: Ascites presence: with ascites Hepatic cirrhosis type: unspecified hepatic cirrhosis Qualified Code(s): K74.60 - Unspecified cirrhosis of liver; R18.8 - Other ascites (2) Failure to thrive in adult: PLAN: 1. Acute toxic and metabolic encephalopathy-secondary to decompensated cirrhosis, electrolyte disturbances, acute kidney injury, alcohol withdrawal- improved. Treat underlying processes as noted below. 2. Decompensated cirrhosis secondary to underlying alcoholic hepatitis with associated ascites, portal hypertension, esophageal varices and hyperammonia- status post large-volume paracentesis 09/12/2021. Patient received albumin following procedure. Cipro and Bactrim X1 week for SBP prevention. Continue Lasix, Aldactone, lactulose. GI following. 3. Acute on Chronic pancytopenia/Anemia-secondary to alcoholic cirrhosis, iron deficiency anemia. Patient underwent EGD 09/10 and colonoscopy 09/11 secondary to anemia/hematemesis/occult blood positive stool which demonstrated grade 2 varices in the lower third of the esophagus which were successfully banded, type I gastroesophageal varices with no bleeding in the gastric fundus, diverticulosis in the rectosigmoid colon, in the sigmoid colon and in the descending colon, hemorrhoids on perianal exam. Transfuse for hemoglobin less than 7. Continue PPI. 4. Electrolyte disturbances including hypokalemia, hyponatremia/hypernatremia, hypomagnesia, hypophosphatemia- replace per protocol, trend labs. Aggressive IV potassium supplementation this morning with repeat lab in a.m. Magnesium, phosphorus now normal. Patient initially with hyponatremia however now mildly hypernatremic, fluids transitioned to D5. 5. Acute kidney injury- resolved. Trend BMP. No evidence of CKD. 6. Moderate oropharyngeal dysphagia/moderate esophageal dysphagia-continue dietary modifications and aspiration precautions per speech therapy recommendations. Due to significant ongoing aspiration risk, will discuss with family PEG tube vs comfort measures. 7. Failure to thrive-found at home in very poor condition. Debilitated. PT/OT. SNF pending and medically stable. 8. Severe protein calorie malnutrition-secondary to cachectic appearance with very poor oral intake, recent weight loss, evidence of muscle and fat loss. Continue dietary supplementation per nutrition recommendation. 9. Alcohol withdrawal, chronic alcoholism-completed phenobarb taper. No evidence of active withdrawal. 10. CAD with history of PTCA/PCI-continue statin, Plavix, metoprolol. 11. Bilateral carotid stenosis-on statin, Plavix 12. Chronic alcoholism-advised cessation. No withdrawal during admission. Continue folic acid, thiamine supplementation. 13. Chronic pancytopenia/Anemia-secondary to alcoholic cirrhosis. Plan to transfuse for hemoglobin less than 7. 14. Depression/anxiety/agoraphobia-on Celexa, BuSpar. Follows with psychiatry. 15. GERD-on PPI. 16. Chronic COPD-no exacerbation. As needed albuterol aerosol. 17. Hypertension-continue amlodipine, metoprolol. 18. RENETTA- per patient, not on pap therapy. DVT prophylaxis-SCDs This patient was seen by ROSSANA Mcintosh under the supervision of Dr. Merino. Time spent examining patient, reviewing data and subsequent management of care: 20 minutes Documented by User: Dr. Luis Miguel Merino MD 09/13/21 14:00 Objective Data Lab / Micro Data Result Diagrams: 09/13/21 06:07 09/13/21 06:07 Physical Exam Narrative Seen and examined. Patient having diarrhea because of lactulose which is discontinued. Hypokalemia also probably due to diarrhea. He also has wheezing sound. Needs 2 people assist to get out of chair on the bed. General: Alert awake oriented x3. HEENT: Atraumatic, PERRLA, EOMI, Normocephalic Oral: Oral mucosa dry. No significant movement of oropharyngeal muscles on exam. No Gingival or Mucosal Lesions/ Ulcerations Neck: Supple, No JVD, Negative Carotid Bruits Lungs: Air entry diminished in bilateral lung bases. Bilateral coarse wheezing. SOB on exertion Cardiovascular: Regular rate, Regular Rhythm, Normal S1, Normal S2, No murmurs Abdomen: Abdomen distended, ascites. Shifting dullness present. Nontender. Bowel Sounds sluggish : UOP 1000 mL in 24 hours. Shields catheter. No renal angle tenderness. No suprapubic tenderness. Extremities: No edema, Capillary Refill Less than 3 Seconds Skin: No rashes, No breakdown Musculoskeletal: ROM restricted over hip and knee joints. Stiffness of joints. Moderate atrophy of muscles of extremities Neurological: Cranial nerves II-XII grossly intact, DTR 2+/4 and Symmetrical, Neuro grossly intact Psych/Mental Status: Flat affect. Assessment & Plan Assessment/Plan (1) Esophageal varices determined by endoscopy: PLAN: This patient was seen in conjunction with SPECIMEN ACCESSIONERDebbie. I have independently interviewed and examined the patient and reviewed pertinent history, examination findings, laboratory and plan of management. I have r eviewed the note and agree with the documented findings with the few additional points. In brief, patient is 61-year-old gentleman with history of chronic alcohol use and dependence, stroke and other comorbidities admitted with generalized weakness. He was found not responding to his friend, covered in his own feces and urine found to be cold. He was somnolent therefore brought to ED by EMS and admitted. Assessment and plan 1. Decompensated cirrhosis most likely alcoholic cirrhosis with gastroesophageal varices, ascites and toxic metabolic encephalopathy. Patient seen by electronic video games servicer and had EGD today. Patient had EGD reported grade 2 esophageal varices, incompletely eradicated, banded. Z-line irregular, medium- sized hiatus hernia. GOV 1 without bleeding. Single duodenal polyp. Full liquid diet recommended. On lactulose. Patient had diagnosis of esophageal va rices on previous EGD in 2014. Ceftriaxone 1 g daily for possible GI bleed in the setting of ascites as he is high risk for SBP. Calculated MELD Na is 16, less than 2% estimated 90-day mortality. 09/11: Plan for colonoscopy today. 09/12: Diverticulosis in the rectosigmoid, sigmoid colon and descending colon. Hemorrhoidal. Patient is scheduled for diagnostic paracentesis. Looks very dehydrated. IV fluid D5 0.2 NS with KCl for nutritional purposes And hydration. Oropharyngeal dysphagia, on modified dysphagia diet under supervision as per speech therapist. 09/13: Patient is very dehydrated therefore D5W for nutritional support. Lactulose discontinued as patient having severe diarrhea. Patient looks very weak and dehydrated. Patient had large-volume paracentesis total of 2350 mL. IV albumin was given. In peritoneal fluid, absolute neutrophil cell count shows 6, 24% with total cell count 36. 76% mononuclear cells. Glucose is elevated 114. Total protein 1.0. Our lab does not do peritoneal fluid albumin which is required to calculate SAG. It is not consistent with SBP or secondary peritonitis as glucose will be very low and WBC count will be high in secondary peritonitis. 2. Acute on chronic anemia most likely due to cirrhosis/chronic iron deficiency anemia, hyponatremia, severe protein calorie malnourished with evidence of loss of subcutaneous fat and mild to moderate atrophy of muscles of extremity. 09/11: Hemoglobin 7.7. 09/12: Hemoglobin remains low, 7.3, MCV normal. Thrombocytopenia 72,000. Acute anemia probably due to chronic blood loss anemia from varices. IV iron to 50 mg ordered. Patient has paracentesis. Cell count and chemistry pending. 09/13: Hemoglobin 7.2, platelet count 54,000 due to cirrhosis with significant gastroesophageal varices. 3. Hyponatremia, hypomagnesemia and hypophosphatemia: Electrolytes are being monitored and getting replaced as per lab abnormality. Hyponatremia is chronic mainly hypotonic hypervolemic hyponatremia from cirrhosis. On Neutra-Phos 09/11: Patient has hypokalemia and hypophosphatemia. On IV phosphate. Continue Neutra-Phos from tomorrow 09/12: Hypomagnesemia, hypokalemia: Electrolyte replacement ordered. 09/13: Hypokalemia probably due to severe diarrhea secondary to lactulose. Lactulose discontinued. IV potassium on replacement. Phosphorus 3.2. Magnesium 1.8. 4. Bilateral carotid stenosis, history of a stroke. 5. Coronary artery status post PTCA/PCI in 2016. On Plavix. 6. FLEX stage I on CKD stage II possible HRS: Patient had 100 mL urine output last 16 hours which is less than 210 mL/h therefore stage I of FLEX. Patient also has fluctuation of creatinine clearance but usually it is around 80mL/min therefore he stays to CKD mainly due to fluid shift. Patient had colon prep and loose bowel movement for most probably prerenal. Patient has Shields catheter. 1 L Ringer lactate bolus and then 25 g of IV albumin. 09/12: Creatinine 1.07. BUN low suggestive of low muscle mass. There was imp rovement of urine output after Ringer lactate and IV albumin yesterday. IV albumin ordered today. Patient failed modified barium swallow with significant moderate oropharyngeal dysphagia and moderate esophageal dysphagia. Patient also lethargic. There is significant risk of aspiration. I told about PEG tube to the patient but I think he is not comprehending therefore will discuss with family. Even with PEG tube there is significant risk of aspiration with patient's own salivary secretion and tube feed. Chest x-ray shows underventilated with atelectasis. Overall poor prognosis. Diffuse sarcopenia, low muscle mass and subcutaneous tissue. Severe protein calorie malnutrition. I have discussed my assessment with SPECIMEN ACCESSIONER, Debbie and orders have been reviewed. Total time of the visit including total time spent in counseling or coordination of care, (more than 50% of the total time, spent in obtaining medical information from nurses and other ancillary care providers,explaining to the patient about labs, imaging, diagnosis and management), , review of labs and imaging is 50 minutes. Debbie I spent 20 minutes and I spent 30 minutes Charges/Coding Visit Charges Inpatient E&M: 25624 Subs Hosp L3
--- NOTE | 2021-09-13 09:50 | RAD_ITS ---
STUDY: X-RAY CHEST REASON FOR EXAM: Male, 61 years old. Hypoxia and altered mental status. TECHNIQUE: AP and lateral views of the chest. COMPARISON: Comparison is made with prior study dated 09/08/2021. FINDINGS: EKG electrodes are seen. New infiltrate in the left lung and a preferential lateral distribution. Pneumonitis associated with Covid should be ruled out. There is no demonstrated pleural abnormality. Normal size heart. Normal mediastinum and emma. Normal visualized pulmonary arteries. Normal visualized aortic arch and descending thoracic aorta. There is demineralization of the osseous structures. Normal visualized ribs, clavicles, and shoulders. There is no demonstrated abnormality of the visualized soft tissue structures of the upper abdomen. RAD/Chest PA and Lateral IMPRESSION: New infiltrate in the peripheral lateral aspect of the left lung. Follow-up is recommended. Electronically Signed: Remy Trivedi MD at 14:21 EDT ,
[2021-09-13] MEDS: Magnesium Chloride 64 MG Delay Rel.Tablet 128 MG PO ×2 (11:04→22:01)
[2021-09-13] MEDS: Cholecalciferol (VIT D3) 25 MCG TABLET (1,000 UNITS) 50 MCG PO (11:04)
[2021-09-13] MEDS: Metoprolol Tartrate 100 MG Tablet PO ×2 (11:05→22:00)
[2021-09-13] MEDS: amLODIPine 5 MG Tablet PO (11:05)
[2021-09-13] MEDS: Furosemide 20 MG Tablet PO (11:06)
[2021-09-13] MEDS: Citalopram 20 MG Tablet PO (11:06)
[2021-09-13] MEDS: Spironolactone 25 MG Tablet PO (11:06)
[2021-09-13] MEDS: buPROPion (XL) 150 MG TABLET.XL PO (11:06)
[2021-09-13] MEDS: Menthol/Lanolin/Calamine/Znox 113 GM Tube 1 APPLIC TOPICAL ×2 (11:07→21:58)
[2021-09-13] MEDS: Potassium Chloride Oral Tablet 20 MEQ 40 MEQ PO ×2 (11:58→18:23)
--- NOTE | 2021-09-13 12:17 | CASEMGMT ---
Social Work Per physician, pt is not ready for discharge today. MALIA spoke with Jeane at [facility] and precert has been obtained. Precert is good through Friday. If pt does not discharge tomorrow, Jeane will resubmit for a weekend extension. MALIA met with pt and informed that [facility] can accept and insurance has authorized but pt will not discharge today. Pt is agreeable to plan to go to [facility] at discharge. Plan: [facility], when medically ready TAMMI Valle
--- NOTE | 2021-09-13 13:18 | CASEMGMT ---
Spoke with Paulino from the [facility], he states he did not receive the declination form. Faxed form to requested fax of [phone] at this time.
[2021-09-13 13:58] LABS: Pathologist Comment/Body Fluid Reviewed
[2021-09-13] MEDS: Ciprofloxacin 250 MG Tablet 750 MG PO (18:28)
[2021-09-13] MEDS: Smz/Tmp Ds Tablet 1 TABLET PO (22:00)
[2021-09-13] MEDS: traZODone 100 MG Tablet PO (22:15)
[2021-09-14] VITALS (16 sets, daily range): BP systolic 78–129; BP diastolic 52–80; PULSE 93–117; RESP 16–24; TEMP 36.5–37.1; O2SAT 94–100; BMI 24.5
[2021-09-14 07:10] LABS: Absolute Lymphocyte Count 0.91 X10^3/uL (0.83-4.51); Absolute Neutrophil Count 4.6 X10^3/uL (2.0-7.7); Basophil# 0.01 X10^3/uL; Basophil% 0.2 % (0-1); Eosinophil# 0.03 X10^3/uL; Eosinophils% 0.5 % (0-5); Hematocrit 24.7 % (40-54); Hemoglobin 6.8 g/dL (13.0-16.5); Lymphocyte # 0.91 X10^3/ul (0.83-4.51); Lymphocyte % 14.9 % (19-41); Mean Corp Hgb Conc 27.5 g/dL (32-36); Mean Corpuscular Volume 90.8 fL (80-94); Mean Platelet Vol. 10.9 fl (6.2-12.0); Monocyte# 0.52 X10^3/uL; Monocyte% 8.5 % (0-10); NRBC Flagged by Analyzer 1.1 % (0-5); Neutrophil # 4.58 X10^3/uL (2.7-7.7); Neutrophil % 74.9 % (47-70); POSITIVE COUNT YES; POSITIVE MORPHOLOGY YES; Platelet Count 57 K/mm3 (150-450); RBC Distribution Width CV 23.5 % (11.6-14.6); RBC Distribution Width SD 68.4 fl (35.1-43.9); Red Blood Count 2.72 M/mm3 (4.6-6.2); White Blood Count 6.1 K/mm3 (4.4-11.0)
[2021-09-14 07:18] LABS: Differential Indicated SCAN CRITERIA MET
[2021-09-14 07:27] LABS: ALB/GLOB Ratio 0.6 RATIO (0.9-2.4); AST(SGOT) 41 U/L (15-37); Alanine Aminotransfer ALT/SGPT 42 U/L (16-61); Albumin, Serum 2.4 g/dL (3.2-5.0); Alkaline Phosphatase 153 U/L (45-117); Anion Gap 6 (5-15); BUN 7 mg/dL (7-18); BUN/Creat Ratio 5.8 RATIO (10-20); Calcium,Total 8.3 mg/dL (8.5-10.1); Chloride 124 mmol/L (98-107); Creatinine, Serum 1.21 mg/dL (0.70-1.30); EST Glomerular Filtration Rate 65 mL/min (>60); Est Glom Filt Rate - Afr Amer 78 mL/min (>60); Estimated Creatinine Clearance 57.85 ml/min; Globulin 3.7 g/dL (2.2-4.2); Glucose 104 mg/dL (74-106); Potassium 3.7 mmol/L (3.5-5.1); Protein, Total 6.1 g/dL (6.4-8.2); Sodium Level 149 mmol/L (136-145)
[2021-09-14] MEDS: Budesonide Respules 0.5 MG/2 ML AMPUL.NEB. INHALATION ×2 (07:38→18:58)
[2021-09-14 07:47] LABS: Anisocytosis 2+; Differential Comment SCANNED; Macrocytosis 1+; Microcytosis 1+; Platelet Estimate MKD DEC (ADEQ); Platelet Morphology LARGE
[2021-09-14 08:02] LABS: Ferritin 565 ng/mL (26-388); Iron 100 ug/dL (65-175); Iron Binding Capacity,Total 404 ug/dL (250-450); PERCENT IRON SATURATION 24.8 % (15.0-55.0)
[2021-09-14] MEDS: levoFLOXacin IV 500 MG/100 ML BAG 100 MG IV (08:47)
[2021-09-14] MEDS: Nystatin/Triamcin Cream Tube 1 APPLIC TOPICAL ×2 (08:55→21:50)
[2021-09-14] MEDS: Menthol/Lanolin/Calamine/Znox 113 GM Tube 1 APPLIC TOPICAL ×2 (08:56→21:39)
--- NOTE | 2021-09-14 09:20 | CASEMGMT ---
Addendum entered by Berta Ramirez 09/14/21 11:13: MALIA placed a call to Jeane at [facility] to inquire if pt's pre-cert was extended through the weekend. Jeane states pre-cert has been extended through the weekend, pt can discharge to [facility] Friday or Friday. MALIA updated PA. SW in to speak with pt. SW updated pt that he will discharge to [facility], likely tomorrow. Pt asked if he can eat. SW explained that pt is getting a procedure later. Pt asked if he can call his friend Yaz. SW informed pt that he can, MALIA then updated that Yaz is coming to [facility] to see pt. MALIA updated pt that Yaz is coming to [facility] to see pt today. Plan: [facility] skilled when medically cleared. Pre-cert is good Friday and Friday. Original Note: Social Work Note MALIA updated that pt is getting PEG TUBE placed today, will not discharge to [facility] today, likely tomorrow. MALIA placed a call to [facility] and spoke with Jeane. Jeane states she will update pt's insurance so see if pt's pre-cert can be extended through the weekend. Plan: [facility] Berta Ramirez HOME ECONOMIST, PAYROLL ASSISTANT
--- NOTE | 2021-09-14 10:14 | PCM.PN.HOSP ---
Documented by User: Debbie Cantu AADC PLANS STAFF OFFICER, AADC PLANS STAFF OFFICER-C 09/14/21 10:28 Subjective Subjective Patient seen and examined. Resting in chair. Per therapy, patient able to participate more today and did ambulate with a walker and assistance. Patient mental status improved today. Agreeable to PEG tube. PEG tube placement this afternoon. Objective Data Objective Data Vital Signs: Vital Signs Temp Pulse Resp BP Pulse Ox 98.6 F 117 H 20 H 121/74 H 98 09/14/21 09:18 09/14/21 09:40 09/14/21 09:18 09/14/21 09:18 09/14/21 09:18 Oxygen Flow Rate (L/min) [3] 2 Oxygen Flow Rate (L/min) [2] 2 Oxygen Flow Rate (L/min) 2 Oxygen Delivery Method [3] Nasal Cannula Oxygen Delivery Method [2] Nasal Cannula Oxygen Delivery Method [1 ( Room Air Initial Baseline)] Oxygen Delivery Method Room Air Weight: 152 lb 8.958 oz Body Mass Index (BMI) 24.5 Intake & Output: Intake and Output for Last 24 Hours 09/12/21 09/13/21 09/14/21 23:59 23:59 23:59 Intake Total 2654.8433 / 2654.8433 1645.84 / 1745.84 1403.33 / 1403.33 Output Total 1430 / 1630 1180 / 1230 175 / 175 Balance 1224.8433 / 1024.8433 465.84 / 515.84 1228.33 / 1228.33 Lab / Micro Data Result Diagrams: 09/14/21 06:25 09/14/21 06:25 Labs: Laboratory Results - last 24 hr 09/12/21 : Fl Pathologist Comment Reviewed 09/14/21 04:44: COVID-19 ([place]) Not Detected 09/14/21 06:25: WBC 6.1, RBC 2.72 L, Hgb 6.8 L, Hct 24.7 L, MCV 90.8, MCH 25.0 L, MCHC 27.5 L, RDW Std Deviation 68.4 H, RDW Coeff of Donnie 23.5 H, Plt Count 57 L, MPV 10.9, Immature Gran % (Auto) 1.000 H, Neut % (Auto) 74.9 H, Lymph % (Auto) 14.9 L, [place] % (Auto) 8.5, Eos % (Auto) 0.5, Baso % (Auto) 0.2, Absolute Neuts (auto) 4.6, Absolute Lymphs (auto) 0.91, Nucleated RBC % 1.1, Differential Comment SCANNED, Platelet Estimate MKD DEC, Plt Morphology Comment LARGE, Anisocytosis 2+, Microcytosis 1+, Macrocytosis 1+ 09/14/21 06:25: Sodium 149 H, Potassium 3.7, Chloride 124 H, Carbon Dioxide 19.0 L, Anion Gap 6, BUN 7, Creatinine 1.21, Estim Creat Clear Calc 57.85, Est GFR (MDRD) Af Amer 78, Est GFR (MDRD) Non-Af 65, BUN/Creatinine Ratio 5.8 L, Glucose 104, Calcium 8.3 L, Total Bilirubin 1.00, AST 41 H, ALT 42, Alkaline Phosphatase 153 H, Total Protein 6.1 L, Albumin 2.4 L, Globulin 3.7, Albumin/Globulin Ratio 0.6 L 09/14/21 06:25: Iron 100, TIBC 404, Iron Saturation 24.8, Ferritin 565 H Micro: Microbiology 09/12/21 Unknown Fluid - Paracentesis (Abd) Gram Stain - Final 09/12/21 Unknown Fluid - Paracentesis (Abd) Body Fluid Culture - Preliminary No growth-Final to follow 09/12/21 Unknown Fluid - Paracentesis (Abd) Anaerobic Culture - Preliminary No growth in 48 hours. 09/08/21 14:15 Stool Stool Occult Blood (OLAYINKA) - Final Occult Blood Positive 09/08/21 13:30 Nasal Secretion SARS-CoV-2 & FLU Antigen (Rapid) - Final Radiography Diagnostic Testing: Radiology Impression Chest X-Ray 09/13/21 09:50 IMPRESSION: New infiltrate in the peripheral lateral aspect of the left lung. Follow-up is recommended. Electronically Signed: Remy Trivedi MD at 14:21 EDT , Physical Exam Const alert and oriented x3 Orientation / Consciousness: awake, oriented to person and oriented to place Nutritional Appearance: cachectic HEENT normocephalic Mouth: dry mucous membranes Eyes PERRL, EOMs intact bilaterally and conjunctivae normal Neck no lymphadenopathy Resp Effort and Inspection: tachypneic Auscultation: rhonchi and diminished lung sounds Cardio regular rate, regular rhythm and no murmurs Peripheral Pulses: pulses 2+ throughout GI normal to inspection, nondistended, normoactive bowel sounds, non-tender and non-distended Extremity normal to inspection General Extremity: edema bilateral lower extremity Skin no rashes or lesions noted Lesions: no lesions Rashes: no rashes Trauma: no lacerations or abrasions Neuro CN's II-XII intact bilaterally, no focal motor deficits, no sensory deficits noted and deep tendon reflexes 2+ bilaterally Psych Mood & Affect: flat affect Assessment & Plan Assessment/Plan (1) Cirrhosis: QUALIFIERS: Ascites presence: with ascites Hepatic cirrhosis type: unspecified hepatic cirrhosis Qualified Code(s): K74.60 - Unspecified cirrhosis of liver; R18.8 - Other ascites (2) Failure to thrive in adult: PLAN: 1. Acute toxic and metabolic encephalopathy-secondary to decompensated cirrhosis, electrolyte disturbances, acute kidney injury, alcohol withdrawal- improved. Treat underlying processes as noted below. Improved. 2. Decompensated cirrhosis secondary to underlying alcoholic hepatitis with associated ascites, portal hypertension, esophageal varices and hyperammonia-status post large-volume paracentesis 09/12/2021. Patient received albumin following procedure. Cipro and Bactrim indefinitely for SBP prevention. Continue Lasix, Aldactone, lactulose. GI following. 3. Acute on Chronic pancytopenia/Anemia-secondary to alcoholic cirrhosis, iron deficiency anemia. Patient underwent EGD 09/10 and colonoscopy 09/11 secondary to anemia/hematemesis/occult blood positive stool which demonstrated grade 2 varices in the lower third of the esophagus which were successfully banded, type I gastroesophageal varices with no bleeding in the gastric fundus, diverticulosis in the rectosigmoid colon, in the sigmoid colon and in the descending colon, hemorrhoids on perianal exam. Transfuse for hemoglobin less than 7. 1 unit PRBC ordered for hemoglobin 6.8. Continue PPI. 4. Electrolyte disturbances including hypokalemia, hyponatremia/hypernatremia, hypomagnesia, hypophosphatemia- replace per protocol, trend labs. Aggressive IV potassium supplementation this morning with repeat lab in a.m. Magnesium, phosphorus now normal. Patient initially with hyponatremia however now mildly hypernatremic, fluids transitioned to D5. 5. Acute kidney injury- resolved. Trend BMP. No evidence of CKD. 6. Moderate oropharyngeal dysphagia/moderate esophageal dysphagia-continue dietary modifications and aspiration precautions per speech therapy recommendations. Due to significant ongoing aspiration risk, will discuss with family PEG tube vs comfort measures. Healthcare power of criminal attorney as well as patient amendable to proceed with PEG tube. Dietitian consult for tube feeds. 7. Failure to thrive-found at home in very poor condition. Debilitated. PT/OT. SNF pending and medically stable. 8. Severe protein calorie malnutrition-secondary to cachectic appearance with very poor oral intake, recent weight loss, evidence of muscle and fat loss. Continue dietary supplementation per nutrition recommendation. 9. Alcohol withdrawal, chronic alcoholism-completed phenobarb taper. No evidence of active withdrawal. 10. CAD with history of PTCA/PCI-continue statin, Plavix, metoprolol. 11. Bilateral carotid stenosis-on statin, Plavix 12. Chronic alcoholism-advised cessation. No withdrawal during admission. Continue folic acid, thiamine supplementation. 13. Chronic pancytopenia/Anemia-secondary to alcoholic cirrhosis. Plan to transfuse for hemoglobin less than 7. 14. Depression/anxiety/agoraphobia-on Celexa, BuSpar. Follows with psychiatry. 15. GERD-on PPI. 16. Chronic COPD-no exacerbation. As needed albuterol aerosol. 17. Hypertension-continue amlodipine, metoprolol. 18. RENETTA- per patient, not on pap therapy. DVT prophylaxis-SCDs This patient was seen by ROSSANA Mcintosh under the supervision of Dr. Merino. Discharge planning: PEG tube placement 09/14/2021, likely SNF discharge 09/15/2021 if remains medically stable. Time spent examining patient, reviewing data and subsequent management of care: 15 minutes Documented by User: Dr. Luis Miguel Merino MD 09/14/21 15:07 Objective Data Lab / Micro Data Result Diagrams: 09/14/21 06:25 09/14/21 06:25 Physical Exam Narrative Seen and examined. Patient still having loose bowel movement/diarrhea even after stopping lactulose. He looks more awake alert and has some understanding. Findings of modified barium swallow, oropharyngeal and esophageal dysphagia discussed with the patient. Agreeable for PEG tube. Physical exam General: Alert awake oriented x3. HEENT: Atraumatic, PERRLA, EOMI, Normocephalic Oral: Oral mucosa dry. No significant movement of oropharyngeal muscles on exam. No Gingival or Mucosal Lesions/ Ulcerations Neck: Supple, No JVD, Negative Carotid Bruits Lungs: Air entry diminished in bilateral lung bases. Bilateral coarse wheezing. SOB on exertion Cardiovascular: Regular rate, Regular Rhythm, Normal S1, Normal S2, No murmurs Abdomen: Soft bowel movement. Abdomen distended, ascites. Shifting dullness present. Nontender. Bowel Sounds sluggish : Shields catheter. Urine output and 30 mL. No renal angle tenderness. No suprapubic tenderness. Extremities: No edema, Capillary Refill Less than 3 Seconds Skin: No rashes, No breakdown Musculoskeletal: ROM restricted over hip and knee joints. Stiffness of joints. Moderate atrophy of muscles of extremities Neurological: Cranial nerves II-XII grossly intact, DTR 2+/4 and Symmetrical, Neuro grossly intact Psych/Mental Status: Flat affect. Assessment & Plan Assessment/Plan (1) Cirrhosis: QUALIFIERS: Ascites presence: with ascites Hepatic cirrhosis type: unspecified hepatic cirrhosis Qualified Code(s): K74.60 - Unspecified cirrhosis of liver; R18.8 - Other ascites (2) Ascites: PLAN: This patient was seen in conjunction with AADC PLANS STAFF OFFICERDebbie. I have independently interviewed and examined the patient and reviewed pertinent history, examination findings, laboratory and plan of management. I have reviewed the note and agree with the documented findings with the few additional points. In brief, patient is 61-year-old gentleman with history of chronic alcohol use and dependence, stroke and other comorbidities admitted with generalized weakness. He was found not responding to his friend, covered in his own feces and urine found to be cold. He was somnolent therefore brought to ED by EMS and admitted. Assessment and plan 1. Decompensated cirrhosis most likely alcoholic cirrhosis with gastroesophageal varices, ascites and toxic metabolic encephalopathy. Patient seen by maintenance equipment operator and had EGD today. Patient had EGD reported grade 2 esophageal varices, incompletely eradicated, banded. Z-line irregular, medium-sized hiatus hernia. GOV 1 without bleeding. Single duodenal polyp. Full liquid diet recommended. On lactulose. Patient had diagnosis of esophageal varices on previous EGD in 2014. Ceftriaxone 1 g daily for possible GI bleed in the setting of ascites as he is high risk for SBP. Calculated MELD Na is 16, less than 2% estimated 90-day mortality. 09/11: Plan for colonoscopy today. 09/12: Diverticulosis in the rectosigmoid, sigmoid colon and descending colon. Hemorrhoidal. Patient is scheduled for diagnostic paracentesis. Looks very dehydrated. IV fluid D5 0.2 NS with KCl for nutritional purposes And hydration. Oropharyngeal dysphagia, on modified dysphagia diet under supervision as per speech therapist. 09/13: Patient is very dehydrated therefore D5W for nutritional support. Lactulose discontinued as patient having severe diarrhea. Patient looks very weak and dehydrated. Patient had large-volume paracentesis total of 2350 mL. IV albumin was given. In peritoneal fluid, absolute neutrophil cell count shows 6, 24% with total cell count 36. 76% mononuclear cells. Glucose is elevated 114. Total protein 1.0. Our lab does not do peritoneal fluid albumin which is required to calculate SAG. It is not consistent with SBP or secondary peritonitis as glucose will be very low and WBC count will be high in secondary peritonitis. 09/14: On acetic fluid, fluid culture does not show any organism. Cytology negative for malignant cells. Continue medical management with furosemide, spironolactone and cannot take lactulose for diarrhea but can take Xifaxan if he cannot swallow otherwise after PEG tube insertion 2. Acute on chronic anemia most likely due to cirrhosis/chronic iron deficiency anemia, hyponatremia, severe protein calorie malnourished with evidence of loss of subcutaneous fat and mild to moderate atrophy of muscles of extremity. 09/11: Hemoglobin 7.7. 09/12: Hemoglobin remains low, 7.3, MCV normal. Thrombocytopenia 72,000. Acute anemia probably due to chronic blood loss anemia from varices. IV iron to 50 mg ordered. Patient has paracentesis. Cell count and chemistry pending. 09/13: Hemoglobin 7.2, platelet count 54,000 due to cirrhosis with significant gastroesophageal varices. 09/14: 1 L PRBC transfusion ordered. 3. Hyponatremia, hypomagnesemia and hypophosphatemia: Electrolytes are being monitored and getting replaced as per lab abnormality. Hyponatremia is chronic mainly hypotonic hypervolemic hyponatremia from cirrhosis. On Neutra-Phos 09/11: Patient has hypokalemia and hypophosphatemia. On IV phosphate. Continue Neutra-Phos from tomorrow 09/12: Hypomagnesemia, hypokalemia: Electrolyte replacement ordered. 09/13: Hypokalemia probably due to severe diarrhea secondary to lactulose. Lactulose discontinued. IV potassium on replacement. Phosphorus 3.2. Magnesium 1.8. 09/14: Sodium level is better 3.7. Monitor electrolytes and replace accordingly. 4. Bilateral carotid stenosis, history of a stroke. 5. Coronary artery status post PTCA/PCI in 2016. On Plavix. 6. FLEX stage I on CKD stage II possible HRS: Patient had 100 mL urine output last 16 hours which is less than 210 mL/h therefore stage I of FLEX. Patient also has fluctuation of creatinine clearance but usually it is around 80mL/min therefore he stays to CKD mainly due to fluid shift. Patient had colon prep and loose bowel movement for most probably prerenal. Patient has Shields catheter. 1 L Ringer lactate bolus and then 25 g of IV albumin. 09/12: Creatinine 1.07. BUN low suggestive of low muscle mass. There was improvement of urine output after Ringer lactate and IV albumin yesterday. IV albumin ordered today. 09/14: FLEX resolved. Patient failed modified barium swallow with significant moderate oropharyngeal dysphagia and moderate esophageal dysphagia. Patient also lethargic. There is significant risk of aspiration. I told about PEG tube to the patient but I think he is not comprehending therefore will discuss with family. Even with PEG tube there is significant risk of aspiration with patient's own salivary secretion and tube feed. Chest x-ray shows underventilated with atelectasis. Overall poor prognosis. Diffuse sarcopenia, low muscle mass and subcutaneous tissue. Severe protein calorie malnutrition. 09/14: I again discussed with patient's friend, Yaz. She was doubtful about going ahead with PEG tube or not as patient prognosis is poor in view of decompensated alcoholic cirrhosis severe malnutrition physically debilitated. After explaining prognosis, she wants to go ahead with PEG tube insertion. Patient not ready for hospice care yet I have discussed my assessment with AADC PLANS STAFF OFFICER, Debbie and orders have been reviewed. Total time of the visit including total time spent in counseling or coordination of care, (more than 50% of the total time, spent in obtaining medical information from nurses and other ancillary care providers,explaining to the patient about labs, imaging, diagnosis and management), , review of labs and imaging is 50 minutes. Debbie I spent 20 minutes and I spent 30 minutes Charges/Coding Visit Charges Inpatient E&M: 43708 Subs Hosp L3
--- NOTE | 2021-09-14 13:38 | CASEMGMT ---
Social Work Note MALIA had received message yesterday from pt's POA Yaz asking about guardianship for pt. MALIA placed a call to Yaz. MALIA informed Yaz that pt will need to go through his PCP to inquire about Guardianship. MALIA informed Yaz that pt's pre-cert for [facility] is good through the weekend so pt can discharge to [facility] this weekend if he is medically cleared. Yaz states understanding. MALIA reviewed chart. Pt has HCPOA on file and the first agent listed is Joseious. MALIA placed a call to Mimi and updated her that pre-cert is good through the weekend for [facility] and pt will likely discharge to [facility] over the weekend if pt is medically cleared. Mimi asked to be called when pt discharges to [facility]. Plan: [facility] skilled when medically cleared Berta Ramirez CURTAIN ROLLER ASSEMBLER, PRECIPITATION EQUIPMENT TENDER
--- NOTE | 2021-09-14 15:25 | NURSING ---
pt to endo
--- NOTE | 2021-09-14 15:51 | CASEMGMT ---
Noted [employer] as insurance. TC to Registration, spoke with [facility], they did not receive [employer] Declination Form. Pt is off floor currently. Asked patient care secretary to fax form to registration and provided fax cover sheet when pt and chart return to the floor.
--- NOTE | 2021-09-14 16:45 | CASEMGMT ---
Social Work Note MALIA placed a call to [place] MALIA and left message letting her know that the plan is for pt to discharge to [facility] when medically cleared, likely this weekend. MALIA also updated that pt was found in a ball under a blanket with stool and urine. MALIA placed a call to [place] with APS and inquired if APS is involved with pt and also made APS report on pt. MALIA placed Green sheet, transport forms, COVID tool on pt's chart. Plan: [facility] when medically cleared. Pt will need a COVID test on day of discharge. Berta Ramirez MOLDER FITTING, RUBBER STAMP DIE INSPECTOR
--- NOTE | 2021-09-14 17:08 | OP.CCLET_ITS ---
01/15/2022 [facility] Re : Upper GI endoscopy procedure for [facility] This procedure was performed on Tuesday, September 14, 2021. My impressions and recommendations are as follows: Impressions : - Grade I esophageal varices. - Gastritis. - Normal duodenal bulb. - An externally removable PEG placement was successfully completed. - No specimens collected. Recommendations : - Please follow the post-PEG recommendations including: Nutrition consult for formula and volume, external bolster 1 cm from abdominal wall, remove dressing after 2 weeks, may use PEG today for meds and water and may use PEG tomorrow for feedings. - Continue present medications. My findings are described in the full procedure note, which is enclosed. If I can be of further assistance, please feel free to contact me at . Sincerely, Kemar Friend, 09/14/2021 5:07:39 PM This report has been signed electronically.
--- NOTE | 2021-09-14 17:08 | OP.EGD_ITS ---
Patient Name: Dominic Najera Procedure Date: 09/14/2021 4:15 PM Date of : 1960 Age: 61 Procedure: Upper GI endoscopy Indications: Place PEG due to impaired swallowing, Place PEG due to aspiration risk Providers: Kemar Phelps DO Medicines: Monitored Anesthesia Care Patient Profile: This is a 61 year old male. Refer to note in patient chart for documentation of history and physical. Patient has symptoms. Complications: No immediate complications. Procedure: Pre-Anesthesia Assessment: - Prior to the procedure, a History and Physical was performed, and patient medications and allergies were reviewed. The risks and benefits of the procedure and the sedation options and risks were discussed with the patient. All questions were answered and informed consent was obtained. Patient identification and proposed procedure were verified by the physician in the pre-procedure area. Mental Status Examination: alert and oriented. Airway Examination: normal oropharyngeal airway and neck mobility. Respiratory Examination: clear to auscultation. CV Examination: normal. Prophylactic Antibiotics: The patient does not require prophylactic antibiotics. Prior Anticoagulants: The patient has taken no previous anticoagulant or antiplatelet agents. After reviewing the risks and benefits, the patient was deemed in satisfactory condition to undergo the procedure. The anesthesia plan was to use moderate sedation / analgesia (conscious sedation). Immediately prior to administration of medications, the patient was re-assessed for adequacy to receive sedatives. The heart rate, respiratory rate, oxygen saturations, blood pressure, adequacy of pulmonary ventilation, and response to care were monitored throughout the procedure. The physical status of the patient was re-assessed after the procedure. After obtaining informed consent, the endoscope was passed under direct vision. Throughout the procedure, the patient's blood pressure, pulse, and oxygen saturations were monitored continuously. The Endoscope was introduced through the mouth, and advanced to the second part of duodenum. The upper GI endoscopy was accomplished without difficulty. The patient tolerated the procedure well. Scope In: 4:42:54 PM Scope Out: 5:01:44 PM Total Procedure Duration Time 0 hours 18 minutes 50 seconds Findings: Grade I varices were found in the lower third of the esophagus. They were 5 mm in largest diameter. Localized mild inflammation characterized by congestion (edema) was found in the stomach. The patient was placed in the supine position for PEG placement. The stomach was insufflated to appose gastric and abdominal rocha. A site was located in the cardia with excellent transillumination for placement. The abdominal wall was marked and prepped in a sterile manner. The area was anesthetized with 1 mL of 0.5% lidocaine. The trocar needle was introduced through the abdominal wall and into the stomach under direct endoscopic view. A snare was introduced through the endoscope and opened in the gastric lumen. The guide wire was passed through the trocar and into the open snare. The snare was closed around the guide wire. The endoscope and snare were removed, pulling the wire out through the mouth. A skin incision was made at the site of needle insertion. The externally removable 20 Fr Bard gastrostomy tube was lubricated. The G-tube was tied to the guide wire and pulled through the mouth and into the stomach. The trocar needle was removed, and the gastrostomy tube was pulled out from the stomach through the skin. The external bumper was attached to the gastrostomy tube, and the tube was cut to remove the guide wire. The final position of the gastrostomy tube was confirmed by relook endoscopy, and skin marking noted to be 4 cm at the external bumper. The final tension and compression of the abdominal wall by the PEG tube and external bumper were checked. The feeding tube was capped, and the tube site cleaned and dressed. Estimated blood loss was minimal. The duodenal bulb was normal. Impression: - Grade I esophageal varices. - Gastritis. - Normal duodenal bulb. - An externally removable PEG placement was successfully completed. - No specimens collected. Recommendation: - Please follow the post-PEG recommendations including: Nutrition consult for formula and volume, external bolster 1 cm from abdominal wall, remove dressing after 2 weeks, may use PEG today for meds and water and may use PEG tomorrow for feedings. - Continue present medications. Procedure Code(s): --- Professional --- 62007, Esophagogastroduodenoscopy, flexible, transoral; with directed placement of percutaneous gastrostomy tube CPT copyright 2017 [employer]. All rights reserved. The codes documented in this report are preliminary and upon casing machine operator review may be revised to meet current compliance requirements. Kemar Phelps DO 09/14/2021 5:07:39 PM This report has been signed electronically. Number of Addenda: 1 Note Initiated On: 09/14/2021 4:15 PM Addendum Number: 1 Addendum Date: 01/15/2022 6:29:17 AM MAC was used as sedation for this procedure. Kemar Phelps DO 01/15/2022 6:29:21 AM This report has been signed electronically.
[2021-09-14] MEDS: BUPRENORPHINE 15 MCG/HR PATCH 1 EACH TD (18:03)
[2021-09-14] MEDS: rifAXIMin 550 MG Tablet PO ×2 (18:06→21:50)
[2021-09-14] MEDS: oxyCODONE 5 MG Tablet PO (18:10)
[2021-09-14 20:17] LABS: Amylase Body Fluid 7 U/L (.); pH, Body Fluid 11254 7.4 (Not Estab.)
[2021-09-14] MEDS: Magnesium Chloride 64 MG Delay Rel.Tablet 128 MG PO (21:39)
[2021-09-14] MEDS: Metoprolol Tartrate 100 MG Tablet PO (21:39)
[2021-09-14] MEDS: Smz/Tmp Ds Tablet 1 TABLET PO (21:50)
[2021-09-15] VITALS (9 sets, daily range): BP systolic 100–125; BP diastolic 57–73; PULSE 93–104; RESP 18–24; TEMP 36.6–37.1; O2SAT 93–95
[2021-09-15] MEDS: oxyCODONE 5 MG Tablet PO ×3 (02:50→16:21)
[2021-09-15] MEDS: Loperamide 2 MG Capsule PO (02:50)
[2021-09-15] MEDS: Budesonide Respules 0.5 MG/2 ML AMPUL.NEB. INHALATION ×2 (07:01→19:20)
[2021-09-15 08:33] LABS: Absolute Lymphocyte Count 0.62 X10^3/uL (0.83-4.51); Absolute Neutrophil Count 3.9 X10^3/uL (2.0-7.7); Basophil# 0.01 X10^3/uL; Basophil% 0.2 % (0-1); Eosinophil# 0.02 X10^3/uL; Eosinophils% 0.4 % (0-5); Hematocrit 26.9 % (40-54); Hemoglobin 7.7 g/dL (13.0-16.5); Lymphocyte # 0.62 X10^3/ul (0.83-4.51); Mean Corp Hgb Conc 28.6 g/dL (32-36); Mean Corpuscular Hgb 25.2 pg (27.0-32.0); Mean Corpuscular Volume 88.2 fL (80-94); Mean Platelet Vol. 11.4 fl (6.2-12.0); Monocyte% 9.7 % (0-10); NRBC Flagged by Analyzer 1.7 % (0-5); Neutrophil # 3.87 X10^3/uL (2.7-7.7); Neutrophil % 74.6 % (47-70); POSITIVE COUNT YES; POSITIVE MORPHOLOGY YES; Platelet Count 59 K/mm3 (150-450); RBC Distribution Width CV 23.9 % (11.6-14.6); RBC Distribution Width SD 70.8 fl (35.1-43.9); Red Blood Count 3.05 M/mm3 (4.6-6.2); White Blood Count 5.2 K/mm3 (4.4-11.0)
[2021-09-15 08:35] LABS: Differential Indicated SCAN CRITERIA MET
[2021-09-15 08:46] LABS: Anion Gap 7 (5-15); BUN 15 mg/dL (7-18); BUN/Creat Ratio 11.2 RATIO (10-20); Calcium,Total 8.5 mg/dL (8.5-10.1); Chloride 121 mmol/L (98-107); Creatinine, Serum 1.34 mg/dL (0.70-1.30); EST Glomerular Filtration Rate 58 mL/min (>60); Est Glom Filt Rate - Afr Amer 70 mL/min (>60); Estimated Creatinine Clearance 52.24 ml/min; Glucose 110 mg/dL (74-106); Magnesium 1.2 mg/dL (1.6-2.6); Potassium 3.1 mmol/L (3.5-5.1); Sodium Level 147 mmol/L (136-145)
[2021-09-15 09:03] LABS: Platelet Estimate MKD DEC (ADEQ)
[2021-09-15 09:04] LABS: Anisocytosis 1+
[2021-09-15 09:29] LABS: AST(SGOT) 30 U/L (15-37); Alanine Aminotransfer ALT/SGPT 35 U/L (16-61); Albumin, Serum 2.4 g/dL (3.2-5.0); Alkaline Phosphatase 141 U/L (45-117); Bilirubin, Direct 0.38 mg/dL (0.00-0.30); Globulin 3.8 g/dL (2.2-4.2); Phosphorus 1.7 mg/dL (2.5-4.9); Protein, Total 6.2 g/dL (6.4-8.2)
[2021-09-15] MEDS: buPROPion (XL) 150 MG TABLET.XL PO (10:56)
[2021-09-15] MEDS: Spironolactone 25 MG Tablet PO (10:57)
[2021-09-15] MEDS: Magnesium Chloride 64 MG Delay Rel.Tablet 128 MG PO ×2 (10:57→21:59)
[2021-09-15] MEDS: Potassium Chloride Oral Tablet 20 MEQ 40 MEQ PO ×2 (10:58→16:17)
[2021-09-15] MEDS: rifAXIMin 550 MG Tablet PO ×2 (10:59→21:59)
[2021-09-15] MEDS: Folic Acid 1 MG Tablet PO (11:00)
[2021-09-15] MEDS: Citalopram 20 MG Tablet PO (11:00)
[2021-09-15] MEDS: amLODIPine 5 MG Tablet PO (11:01)
[2021-09-15] MEDS: Furosemide 20 MG Tablet PO (11:01)
[2021-09-15] MEDS: Metoprolol Tartrate 100 MG Tablet PO ×2 (11:03→21:59)
[2021-09-15] MEDS: Menthol/Lanolin/Calamine/Znox 113 GM Tube 1 APPLIC TOPICAL ×2 (11:03→22:00)
[2021-09-15] MEDS: Thiamine Hydrochloride 100 MG Tablet PO (11:05)
[2021-09-15] MEDS: Nystatin/Triamcin Cream Tube 1 APPLIC TOPICAL ×2 (11:05→22:00)
[2021-09-15] MEDS: Smz/Tmp Ds Tablet 1 TABLET PO ×2 (11:05→21:59)
[2021-09-15] MEDS: Cholecalciferol (VIT D3) 25 MCG TABLET (1,000 UNITS) 50 MCG PO (11:06)
--- NOTE | 2021-09-15 11:39 | PCM.PN.HOSP ---
Documented by User: Debbie Cantu PREDICTIVE MAINTENANCE TECHNICIAN, PREDICTIVE MAINTENANCE TECHNICIAN-C 09/15/21 11:48 Subjective Subjective Patient seen and examined. Sitting up at edge of bed working with therapy. Denies shortness of breath. Confused this morning. Tube feeds to be initiated this morning, plan to monitor tolerance before transition to SNF. Objective Data Objective Data Vital Signs: Vital Signs Temp Pulse Resp BP Pulse Ox 98.7 F 104 H 20 H 125/73 H 94 09/15/21 08:00 09/15/21 11:03 09/15/21 08:35 09/15/21 11:03 09/15/21 08:35 Oxygen Flow Rate (L/min) [3] 2 Oxygen Flow Rate (L/min) [2] 2 Oxygen Flow Rate (L/min) 2 Oxygen Delivery Method [3] Nasal Cannula Oxygen Delivery Method [2] Nasal Cannula Oxygen Delivery Method [1 ( Room Air Initial Baseline)] Oxygen Delivery Method Room Air Weight: 141 lb 15.643 oz Body Mass Index (BMI) 24.5 Intake & Output: Intake and Output for Last 24 Hours 09/13/21 09/14/21 09/15/21 23:59 23:59 23:59 Intake Total 1645.84 / 1745.84 2015.00 / 2115.00 650 / 650 Output Total 1180 / 1230 275 / 425 150 / 150 Balance 465.84 / 515.84 1740.00 / 1690.00 500 / 500 Medical Nutrition Assessment Dietitian: Malnutrition Criteria Met Start: 09/14/21 11:28 Freq: Status: Active Protocol: Document 09/15/21 11:28 DO (Rec: 09/15/21 11:28 DO [id number]) Nutrition Malnutrition Evidence of Malnutrition Exists Yes Malnutrition (severe): Acute Illness/Injury Evidenced By Suboptimal Energy Intake ( Severe),Physical Changes ( Moderate) Intake Problem Inadequate Oral Intake Etiology related to altered mental status, swallowing difficulty Signs/Symptoms as evidenced by estimated energy intake meeting <50% of estimated energy needs >5 days Status Active Problem Clinical Problem Acute Disease or Injury Related Malnutrition Etiology severe, acute (on likely chronic malnutrition) related to inadequate energy intake d/ t swallowing difficulty, altered mental status Signs/Symptoms as evidenced by estimated energy intake meeting <50% of estimated energy needs >5 days ; moderate muscle wasting/fat loss per physical exam Status Active Problem Recommendation Dietitian Recommendations/Changes 1) Per PREDICTIVE MAINTENANCE TECHNICIAN request, will order Vital AF 1.2 at goal rate of 60mL/hour w/ 100mL H2O flush every 4 hours to provide 1728 calories, 108 g protein, and 1767mL fluid/day. Will start at 20mL/hour and increase by 15mL/hour every 8 to 12 hours as tolerated until goal rate is achieved. As ordered, enteral nutrition at goal rate will meet 100% of estimated nutritional needs. 2) Close monitoring of electrolytes, concerns for refeeding syndrome. Daily wts. 3) Will adjust enteral nutrition if able to consume more sufficient nutrition via PO diet. Lab / Micro Data Result Diagrams: 09/15/21 08:14 09/15/21 08:14 Labs: Laboratory Results - last 24 hr 09/12/21 09:20: Fluid pH 7.4, Fluid Amylase 7 09/12/21 : Miscellaneous Cytology SEE PATHOLOGY REPORT 09/15/21 08:14: WBC 5.2, RBC 3.05 L, Hgb 7.7 L, Hct 26.9 L, MCV 88.2, MCH 25.2 L, MCHC 28.6 L, RDW Std Deviation 70.8 H, RDW Coeff of Donnie 23.9 H, Plt Count 59 L, MPV 11.4, Immature Gran % (Auto) 3.100 H, Neut % (Auto) 74.6 H, Lymph % (Auto) 12.0 L, [place] % (Auto) 9.7, Eos % (Auto) 0.4, Baso % (Auto) 0.2, Absolute Neuts (auto) 3.9, Absolute Lymphs (auto) 0.62 L, Nucleated RBC % 1.7, Platelet Estimate MKD DEC, Anisocytosis 1+ 09/15/21 08:14: Sodium 147 H, Potassium 3.1 L, Chloride 121 H, Carbon Dioxide 19.0 L, Anion Gap 7, BUN 15, Creatinine 1.34 H, Estim Creat Clear Calc 52.24, Est GFR (MDRD) Af Amer 70, Est GFR (MDRD) Non-Af 58 L, BUN/Creatinine Ratio 11.2, Glucose 110 H, Calcium 8.5, Magnesium 1.2 L 09/15/21 08:14: Phosphorus Cancelled 09/15/21 08:14: Blood Type O POSITIVE, Antibody Screen NEGATIVE, Crossmatch See Detail 09/15/21 08:14: Phosphorus 1.7 L, Total Bilirubin 0.90, Direct Bilirubin 0.38 H, AST 30, ALT 35, Alkaline Phosphatase 141 H, Total Protein 6.2 L, Albumin 2.4 L, Globulin 3.8 Micro: Microbiology 09/12/21 Unknown Fluid - Paracentesis (Abd) Gram Stain - Final 09/12/21 Unknown Fluid - Paracentesis (Abd) Body Fluid Culture - Final No growth aerobically. 09/12/21 Unknown Fluid - Paracentesis (Abd) Anaerobic Culture - Preliminary No growth in 48 hours. 09/08/21 14:15 Stool Stool Occult Blood (OLAYINKA) - Final Occult Blood Positive 09/08/21 13:30 Nasal Secretion SARS-CoV-2 & FLU Antigen (Rapid) - Final Physical Exam Const alert Orientation / Consciousness: awake and oriented to person Nutritional Appearance: cachectic HEENT normocephalic Mouth: dry mucous membranes Eyes PERRL, EOMs intact bilaterally and conjunctivae normal Neck no lymphadenopathy Resp Auscultation: rhonchi and diminished lung sounds Cardio regular rate, regular rhythm and no murmurs Peripheral Pulses: pulses 2+ throughout GI normal to inspection, nondistended, normoactive bowel sounds, non-tender and non-distended Extremity normal to inspection General Extremity: edema bilateral lower extremity Skin no rashes or lesions noted Lesions: no lesions Rashes: no rashes Trauma: no lacerations or abrasions Neuro CN's II-XII intact bilaterally, no focal motor deficits, no sensory deficits noted and deep tendon reflexes 2+ bilaterally Psych mental status grossly normal Mood & Affect: flat affect Assessment & Plan Assessment/Plan (1) Anemia: QUALIFIERS: Anemia type: unspecified type Qualified Code(s): D64.9 - Anemia, unspecified (2) Cirrhosis: QUALIFIERS: Ascites presence: with ascites Hepatic cirrhosis type: unspecified hepatic cirrhosis Qualified Code(s): K74.60 - Unspecified cirrhosis of liver; R18.8 - Other ascites (3) Failure to thrive in adult: PLAN: 1. Acute toxic and metabolic encephalopathy-secondary to decompensated cirrhosis, electrolyte disturbances, acute kidney injury, alcohol withdrawal- improved. Treat underlying processes as noted below. Improved. 2. Decompensated cirrhosis secondary to underlying alcoholic hepatitis with associated ascites, portal hypertension, esophageal varices and hyperammonia-status post large-volume paracentesis 09/12/2021. Patient received albumin following procedure. Cipro and Bactrim indefinitely for SBP prevention. Continue Lasix, Aldactone. Lactulose held due to persistent diarrhea. GI following. 3. Acute on Chronic pancytopenia/Anemia-secondary to alcoholic cirrhosis, iron deficiency anemia. Patient underwent EGD 09/10 and colonoscopy 09/11 secondary to anemia/hematemesis/occult blood positive stool which demonstrated grade 2 varices in the lower third of the esophagus which were successfully banded, type I gastroesophageal varices with no bleeding in the gastric fundus, diverticulosis in the rectosigmoid colon, in the sigmoid colon and in the descending colon, hemorrhoids on perianal exam. Transfuse for hemoglobin less than 7. Continue PPI. 4. Electrolyte disturbances including hypokalemia, hyponatremia/hypernatremia, hypomagnesia, hypophosphatemia- replace per protocol, trend labs. Aggressive IV potassium supplementation this morning with repeat lab in a.m. Magnesium, phosphorus now normal. Patient initially with hyponatremia however now mildly hypernatremic, fluids transitioned to D5. 5. Acute kidney injury- resolved. Trend BMP. No evidence of CKD. 6. Moderate oropharyngeal dysphagia/moderate esophageal dysphagia-continue dietary modifications and aspiration precautions per speech therapy recommendations. Due to significant ongoing aspiration risk, will discuss with family PEG tube vs comfort measures. Healthcare power of personal injury attorney as well as patient amendable to proceed with PEG tube. PEG tube placed 09/14/21. Initiate tube feed and monitor tolerance prior to DC. 7. Failure to thrive-found at home in very poor condition. Debilitated. PT/OT. SNF pending and medically stable. 8. Severe protein calorie malnutrition-secondary to cachectic appearance with very poor oral intake, recent weight loss, evidence of muscle and fat loss. Continue dietary supplementation per nutrition recommendation. 9. Alcohol withdrawal, chronic alcoholism-completed phenobarb taper. No evidence of active withdrawal. 10. CAD with history of PTCA/PCI-continue statin, Plavix, metoprolol. 11. Bilateral carotid stenosis-on statin, Plavix 12. Chronic alcoholism-advised cessation. No withdrawal during admission. Continue folic acid, thiamine supplementation. 13. Chronic pancytopenia/Anemia-secondary to alcoholic cirrhosis. Plan to transfuse for hemoglobin less than 7. 14. Depression/anxiety/agoraphobia-on Celexa, BuSpar. Follows with psychiatry. 15. GERD-on PPI. 16. Chronic COPD-no exacerbation. As needed albuterol aerosol. 17. Hypertension-continue amlodipine, metoprolol. 18. RENETTA- per patient, not on pap therapy. DVT prophylaxis-SCDs This patient was seen by ROSSANA Mcintosh under the supervision of Dr. Merino. Discharge planning: Likely SNF discharge 09/16/2021 pending tolerance of tube feed. Time spent examining patient, reviewing data and subsequent management of care: 15 minutes Documented by User: Dr. Luis Miguel Merino MD 09/15/21 16:40 Subjective Subjective Follow-up for decompensated cirrhosis, severe anemia, severe malnutrition, dysphagia and multiple comorbidities Objective Data Lab / Micro Data Result Diagrams: 09/15/21 08:14 09/15/21 08:14 Physical Exam Narrative Seen and examined. Patient had PEG tube placed yesterday. Dressing changed. Started on tube feed today. Yesterday evening patient was anxious for food and even said he want to leave the hospital. Patient was convinced. Tube feed regimen. Discussed with the dietitian. Physical exam General: Alert awake oriented x3. HEENT: Atraumatic, PERRLA, EOMI, Normocephalic Oral: Oral mucosa dry. No significant movement of oropharyngeal muscles on exam. No Gingival or Mucosal Lesions/ Ulcerations Neck: Supple, No JVD, Negative Carotid Bruits Lungs: Air entry diminished in bilateral lung bases. Bilateral coarse wheezing. SOB on exertion Cardiovascular: Regular rate, Regular Rhythm, Normal S1, Normal S2, No murmurs Abdomen: Soft bowel movement. Abdomen distended, ascites. Shifting dullness present. Nontender. Bowel Sounds sluggish : Shields catheter. Urine output and 30 mL. No renal angle tenderness. No suprapubic tenderness. Extremities: No edema, Capillary Refill Less than 3 Seconds Skin: Multiple subcutaneous ecchymosis Musculoskeletal: ROM restricted over hip and knee joints. Stiffness of joints. Moderate atrophy of muscles of extremities Neurological: Cranial nerves II-XII grossly intact, DTR 2+/4 and Symmetrical, Neuro grossly intact Psych/Mental Status: Flat affect. Assessment & Plan Assessment/Plan (1) Cirrhosis: QUALIFIERS: Ascites presence: with ascites Hepatic cirrhosis type: unspecified hepatic cirrhosis Qualified Code(s): K74.60 - Unspecified cirrhosis of liver; R18.8 - Other ascites PLAN: This patient was seen in conjunction with PREDICTIVE MAINTENANCE TECHNICIANDebbie. I have independently interviewed and examined the patient and reviewed pertinent history, examination findings, laboratory and plan of management. I have reviewed the note and agree with the documented findings with the few additional points. In brief, patient is 61-year-old gentleman with history of chronic alcohol use and dependence, stroke and other comorbidities admitted with generalized weakness. He was found not responding to his friend, covered in his own feces and urine found to be cold. He was somnolent therefore brought to ED by EMS and admitted. Assessment and plan 1. Decompensated cirrhosis most likely alcoholic cirrhosis with gastroesophageal varices, ascites and toxic metabolic encephalopathy. Patient seen by room service food service attendant and had EGD today. Patient had EGD reported grade 2 esophageal varices, incompletely eradicated, banded. Z-line irregular, medium-sized hiatus hernia. GOV 1 without bleeding. Single duodenal polyp. Full liquid diet recommended. On lactulose. Patient had diagnosis of esophageal varices on previous EGD in 2014. Ceftriaxone 1 g daily for possible GI bleed in the setting of ascites as he is high risk for SBP. Calculated MELD Na is 16, less than 2% estimated 90-day mortality. 09/11: Plan for colonoscopy today. 09/12: Diverticulosis in the rectosigmoid, sigmoid colon and descending colon. Hemorrhoidal. Patient is scheduled for diagnostic paracentesis. Looks very dehydrated. IV fluid D5 0.2 NS with KCl for nutritional purposes And hydration. Oropharyngeal dysphagia, on modified dysphagia diet under supervision as per speech therapist. 09/13: Patient is very dehydrated therefore D5W for nutritional support. Lactulose discontinued as patient having severe diarrhea. Patient looks very weak and dehydrated. Patient had large-volume paracentesis total of 2350 mL. IV albumin was given. In peritoneal fluid, absolute neutrophil cell count shows 6, 24% with total cell count 36. 76% mononuclear cells. Glucose is elevated 114. Total protein 1.0. Our lab does not do peritoneal fluid albumin which is required to calculate SAG. It is not consistent with SBP or secondary peritonitis as glucose will be very low and WBC count will be high in secondary peritonitis. 09/14: On acetic fluid, fluid culture does not show any organism. Cytology negative for malignant cells. Continue medical management with furosemide, spironolactone and cannot take lactulose for diarrhea but can take Xifaxan if he cannot swallow otherwise after PEG tube insertion 09/15: Tube feed started as per recommendation of painting technician. Patient has hypernatremia, sodium 147, chloride 121, bicarb 19 anion gap 7 suggestive of normal anion gap metabolic acidosis. Free water 150 mill every 4 to address hypernatremia. Hypernatremia improving. 2. Acute on chronic anemia most likely due to cirrhosis/chronic iron deficiency anemia, hyponatremia, severe protein calorie malnourished with evidence of loss of subcutaneous fat and mild to moderate atrophy of muscles of extremity. 09/11: Hemoglobin 7.7. 09/12: Hemoglobin remains low, 7.3, MCV normal. Thrombocytopenia 72,000. Acute anemia probably due to chronic blood loss anemia from varices. IV iron to 50 mg ordered. Patient has paracentesis. Cell count and chemistry pending. 09/13: Hemoglobin 7.2, platelet count 54,000 due to cirrhosis with significant gastroesophageal varices. 09/14: 1 L PRBC transfusion ordered. 09/15: Patient did not get blood transfusion yesterday but hemoglobin improved to 7.7. Platelet count 59,000. 3. Hyponatremia, hypomagnesemia and hypophosphatemia: Electrolytes are being monitored and getting replaced as per lab abnormality. Hyponatremia is chronic mainly hypotonic hypervolemic hyponatremia from cirrhosis. On Neutra-Phos 09/11: Patient has hypokalemia and hypophosphatemia. On IV phosphate. Continue Neutra-Phos from tomorrow 09/12: Hypomagnesemia, hypokalemia: Electrolyte replacement ordered. 09/13: Hypokalemia probably due to severe diarrhea secondary to lactulose. Lactulose discontinued. IV potassium on replacement. Phosphorus 3.2. Magnesium 1.8. 09/14: Sodium level is better 3.7. Monitor electrolytes and replace accordingly. 09/15: Potassium 3.1. 4. Bilateral carotid stenosis, history of a stroke. 5. Coronary artery status post PTCA/PCI in 2016. On Plavix. 6. FLEX stage I on CKD stage II possible HRS: Patient had 100 mL urine output last 16 hours which is less than 210 mL/h therefore stage I of FLEX. Patient also has fluctuation of creatinine clearance but usually it is around 80mL/min therefore he stays to CKD mainly due to fluid shift. Patient had colon prep and loose bowel movement for most probably prerenal. Patient has Shields catheter. 1 L Ringer lactate bolus and then 25 g of IV albumin. 09/12: Creatinine 1.07. BUN low suggestive of low muscle mass. There was improvement of urine output after Ringer lactate and IV albumin yesterday. IV albumin ordered today. 09/14: FLEX resolved. Patient failed modified barium swallow with significant moderate oropharyngeal dysphagia and moderate esophageal dysphagia. Patient also lethargic. There is significant risk of aspiration. I told about PEG tube to the patient but I think he is not comprehending therefore will discuss with family. Even with PEG tube there is significant risk of aspiration with patient's own salivary secretion and tube feed. Chest x-ray shows underventilated with atelectasis. Overall poor prognosis. Diffuse sarcopenia, low muscle mass and subcutaneous tissue. Severe protein calorie malnutrition. 09/14: I again discussed with patient's friend, Yaz. She was doubtful about going ahead with PEG tube or not as patient prognosis is poor in view of decompensated alcoholic cirrhosis severe malnutrition physically debilitated. After explaining prognosis, she wants to go ahead with PEG tube insertion. Patient not ready for hospice care yet I have discussed my assessment with PREDICTIVE MAINTENANCE TECHNICIANDebbie and orders have been reviewed. Total time of the visit including total time spent in counseling or coordination of care, (more than 50% of the total time, spent in obtaining medical information from nurses and other ancillary care providers,explaining to the patient about labs, imaging, diagnosis and management), , review of labs and imaging is 50 minutes. Debbie I spent 20 minutes and I spent 30 minutes Charges/Coding Visit Charges Inpatient E&M: 35348 Subs Hosp L3
--- NOTE | 2021-09-15 13:53 | CASEMGMT ---
Social Work Note MALIA updated that pt is to discharge to [facility] tomorrow. MALIA completed [facility] in [facility]. MALIA faxed [facility] to [facility] and wrote on fax coversheet that pt is to discharge tomorrow. Plan: [facility] skilled tomorrow Berta Raimrez APPRISE COUNSELOR, GREEN BUILDING DESIGN SPECIALIST
[2021-09-15] MEDS: Magnesium Sulfate 4gm/100mL 4 GM/100 ML IV.SOLN. IV (14:47)
[2021-09-15] MEDS: Vital AF 1.2 Cal Liquid 1,000 ML 20 ML GT (16:17)
[2021-09-15] MEDS: Albuterol 2.5 MG/3 ML VIAL.NEB. INHALATION (19:20)
[2021-09-15] MEDS: traZODone 100 MG Tablet PO (21:59)
[2021-09-16] VITALS (11 sets, daily range): BP systolic 95–132; BP diastolic 53–66; PULSE 82–90; RESP 18; TEMP 36.2–36.6; O2SAT 92–97
[2021-09-16] MEDS: Budesonide Respules 0.5 MG/2 ML AMPUL.NEB. INHALATION (07:01)
[2021-09-16] MEDS: Albuterol 2.5 MG/3 ML VIAL.NEB. INHALATION (07:01)
[2021-09-16 07:04] LABS: Absolute Lymphocyte Count 0.81 X10^3/uL (0.83-4.51); Basophil# 0.01 X10^3/uL; Basophil% 0.2 % (0-1); Eosinophil# 0.05 X10^3/uL; Eosinophils% 0.9 % (0-5); Hematocrit 22.3 % (40-54); Hemoglobin 6.2 g/dL (13.0-16.5); Lymphocyte # 0.81 X10^3/ul (0.83-4.51); Lymphocyte % 14.8 % (19-41); Mean Corp Hgb Conc 27.8 g/dL (32-36); Mean Corpuscular Hgb 25.2 pg (27.0-32.0); Mean Corpuscular Volume 90.7 fL (80-94); Monocyte# 0.56 X10^3/uL; Monocyte% 10.2 % (0-10); NRBC Flagged by Analyzer 0.9 % (0-5); Neutrophil % 72.8 % (47-70); POSITIVE COUNT YES; POSITIVE MORPHOLOGY YES; Platelet Count 62 K/mm3 (150-450); RBC Distribution Width CV 23.4 % (11.6-14.6); RBC Distribution Width SD 72.4 fl (35.1-43.9); Red Blood Count 2.46 M/mm3 (4.6-6.2); White Blood Count 5.5 K/mm3 (4.4-11.0)
[2021-09-16 07:18] LABS: Differential Indicated SCAN CRITERIA MET
[2021-09-16 07:45] LABS: Anisocytosis 2+
[2021-09-16 07:46] LABS: Crenated RBC 1+; Platelet Estimate MKD DEC (ADEQ); Schistocytes RARE
[2021-09-16 07:50] LABS: Anion Gap 8 (5-15); BUN 26 mg/dL (7-18); BUN/Creat Ratio 13.8 RATIO (10-20); Chloride 122 mmol/L (98-107); Creatinine, Serum 1.89 mg/dL (0.70-1.30); EST Glomerular Filtration Rate 39 mL/min (>60); Est Glom Filt Rate - Afr Amer 47 mL/min (>60); Estimated Creatinine Clearance 37.04 ml/min; Glucose 117 mg/dL (74-106); Magnesium 2.5 mg/dL (1.6-2.6); Phosphorus 2.4 mg/dL (2.5-4.9); Potassium 3.2 mmol/L (3.5-5.1); Sodium Level 149 mmol/L (136-145)
--- NOTE | 2021-09-16 08:50 | PCM.TXEXTCAR ---
Documented by User: Debbie Cantu DEMAND PLANNING ANALYST, DEMAND PLANNING ANALYST-C 09/15/21 13:16 Diet 09/14/21 00:01 Diet: Pureed texture, thin liquids. Diet Comments: Total feed. Small bites/sips. Liquid by teaspoon only. HOB 90 degrees. Remain sitting upright for 30 minutes after PO intake. Tube feed via PEG tube: Vital AF 1.2 at goal rate 60cc/hr with 100ml H20 flush every 4 hours. Start at 20ml/hr and increase by 15ml an hour every 8-12 hours as tolerated until goal rate is achieved. Daily weights. Routine Orders/Code Status O2 Liters per Minute: 2 O2 Frequency: PRN Keep PO Greater than or Equal to (%): 90 Routine Lab Work: - (Daily CBC, BMP, magnesium, phosphorus for one week, then weekly labs) Code Status: DNRCC-A (No intubation) Wound(s) L heel: Wound Type: Pressure Injury RT lower abd: Wound Type: Puncture MID ABD: Wound Type: Puncture Suggestions for Active Care Change Position every (hours): 2 Times a day to sit in chair: 3 Therapies Physical Therapy: Eval and Treat Occupational Therapy: Eval and Treat Speech Therapy: Eval and Treat Problem/Diagnosis (1) Anemia: Status: Acute (2) Cirrhosis: Status: Acute (3) Failure to thrive in adult: Status: Acute Allergies/Procedures Done in Hospital Allergies lisinopril Allergy (Severe, Verified 09/08/21 12:59) Angioedema bee venom protein (honey bee) Allergy (Verified 09/08/21 12:59) Swelling Procedures: EGD and - (PEG tube placement) Type of Care/Length of Stay Estimated LOS: Convalescent Care Less Than 30 days Type of Care Needed: Skilled Rehab Potential: Fair Prognosis: Poor Additional Orders/Day of Discharge H&P will serve as current which was dated: 09/08/21 Day of Discharge: 09/16/21 Dietary and Speech Recommendations Dietitian Recommendations/Changes: 1) Per DEMAND PLANNING ANALYST request, will order Vital AF 1.2 at goal rate of 60mL/hour w/ 100mL H2O flush every 4 hours to provide 1728 calories, 108 g protein, and 1767mL fluid/day. Will start at 20mL/hour and increase by 15mL/hour every 8 to 12 hours as tolerated until goal rate is achieved. As ordered, enteral nutrition at goal rate will meet 100% of estimated nutritional needs. 2) Close monitoring of electrolytes, concerns for refeeding syndrome. Daily wts. 3) Will adjust enteral nutrition if able to consume more sufficient nutrition via PO diet. Discharge Plan Admission Admit Date/Time: 09/08/21 14:26 Primary Reason for Your Visit: Decompensated cirrhosis Attending Provider: Luis Miguel Merino Primary Care Provider: [facility] Consulting Providers: Prachi Wick Instructions Patient Instructions: Paracentesis Dc Additional Instructions / Restrictions: Recommend palliative referral at DC. Give meds through PEG tube if able. Discharge Orders/Prescriptions Prescriptions: New spironolactone 25 mg Tablet 25 mg PO DAILY Qty: 0 RF: 0 sulfamethoxazole-trimethoprim 800-160 mg Tablet 1 tab PO BID Qty: 0 RF: 0 Xifaxan 550 mg Tablet 550 mg PO BID Qty: 0 RF: 0 potassium chloride [Klor-Con M20] 20 mEq Tablet,Er Particles/Crystals 40 meq PO DAILY Qty: 0 RF: 0 ciprofloxacin HCl [Cipro] 250 mg tablet 750 mg PO .q week Qty: 1 RF: 0 Continued acetaminophen 325 mg tablet 650 mg PO Q6H PRN PRN (Reason: Pain Score 1-10/10) RF: 0 folic acid 1 MG tablet 1 mg PO DAILY@0800 RF: 0 cholecalciferol (vitamin D3) 1,000 UNIT tablet 2,000 unit PO DAILY RF: 0 budesonide-formoterol 6 GM HFA aerosol inhaler 2 puff IH BID RF: 0 atorvastatin 80 MG tablet 80 mg PO QHS RF: 0 amlodipine 5 MG tablet 5 mg PO BID RF: 0 thiamine HCl (vitamin B1) 100 MG tablet 100 mg PO DAILYCM Qty: 30 RF: 0 albuterol sulfate 1 INHALER inhaler 2 puff inhalation Q4H PRN PRN (Reason: Sob &/Or Wheezing) Qty: 1 RF: 0 buspirone 5 MG tablet 20 mg PO BID RF: 0 citalopram 20 MG tablet 20 mg PO DAILY RF: 0 magnesium oxide 400 MG tablet 400 mg PO DAILY RF: 0 bupropion HCl 150 MG tablet extended release 24 hr 150 mg PO DAILY RF: 0 buprenorphine 20 mcg/hour patch weekly 1 patch transdermal FR RF: 0 metoprolol tartrate 100 MG tablet 100 mg PO BID Qty: 0 RF: 0 Changed pantoprazole 20 MG tablet,delayed release (DR/EC) 40 mg PO BID Qty: 0 RF: 0 furosemide [Lasix] 40 mg tablet 20 mg PO DAILY Qty: 7 RF: 0 Held clopidogrel 75 MG tablet 75 mg PO DAILY RF: 0 Hold Instructions: Resume on 09/29/21. Hold until follow up with GI Discontinued tizanidine 4 MG capsule 4 mg PO QHS PRN (Reason: Spasms) RF: 0 Referrals / Follow Up: Kemar Phelps DO [STAFF PHYSICIAN] - In 1 Week [facility] [Primary Care Provider] - In 1 Week Disposition Disposition (needs filled in before D/C Order can be placed): Jail Facility Documented by User: Dr. Luis Miguel Merino MD 09/16/21 08:50 Routine Orders/Code Status Suppository Type: Dulcolax 10mg Suppository Frequency: Daily PRN Code Status: DNRCC-A Therapies Weight Bearing: Weight bearing as tolerated Extremity Affected:: Bilateral Lower Physical Therapy: Eval and Treat Occupational Therapy: Eval and Treat Speech Therapy: Eval and Treat Allergies/Procedures Done in Hospital Allergies lisinopril Allergy (Severe, Verified 09/08/21 12:59) Angioedema bee venom protein (honey bee) Allergy (Verified 09/08/21 12:59) Swelling Discharge Plan Admission Admit Date/Time: 09/08/21 14:26 Primary Reason for Your Visit: Decompensated cirrhosis Attending Provider: Luis Miguel Merino Primary Care Provider: [facility] Consulting Providers: Prachi Wick Instructions Patient Instructions: Paracentesis Dc Additional Instructions / Restrictions: Recommend palliative referral at DC. Give meds through PEG tube if able. Discharge Orders/Prescriptions Prescriptions: New spironolactone 25 mg Tablet 25 mg PO DAILY Qty: 0 RF: 0 sulfamethoxazole-trimethoprim 800-160 mg Tablet 1 tab PO BID Qty: 0 RF: 0 Xifaxan 550 mg Tablet 550 mg PO BID Qty: 0 RF: 0 potassium chloride [Klor-Con M20] 20 mEq Tablet,Er Particles/Crystals 40 meq PO DAILY Qty: 0 RF: 0 ciprofloxacin HCl [Cipro] 250 mg tablet 750 mg PO .q week Qty: 1 RF: 0 Continued acetaminophen 325 mg tablet 650 mg PO Q6H PRN PRN (Reason: Pain Score 1-10/10) RF: 0 folic acid 1 MG tablet 1 mg PO DAILY@0800 RF: 0 cholecalciferol (vitamin D3) 1,000 UNIT tablet 2,000 unit PO DAILY RF: 0 budesonide-formoterol 6 GM HFA aerosol inhaler 2 puff IH BID RF: 0 atorvastatin 80 MG tablet 80 mg PO QHS RF: 0 amlodipine 5 MG tablet 5 mg PO BID RF: 0 thiamine HCl (vitamin B1) 100 MG tablet 100 mg PO DAILYCM Qty: 30 RF: 0 albuterol sulfate 1 INHALER inhaler 2 puff inhalation Q4H PRN PRN (Reason: Sob &/Or Wheezing) Qty: 1 RF: 0 buspirone 5 MG tablet 20 mg PO BID RF: 0 citalopram 20 MG tablet 20 mg PO DAILY RF: 0 magnesium oxide 400 MG tablet 400 mg PO DAILY RF: 0 bupropion HCl 150 MG tablet extended release 24 hr 150 mg PO DAILY RF: 0 buprenorphine 20 mcg/hour patch weekly 1 patch transdermal FR RF: 0 metoprolol tartrate 100 MG tablet 100 mg PO BID Qty: 0 RF: 0 Changed pantoprazole 20 MG tablet,delayed release (DR/EC) 40 mg PO BID Qty: 0 RF: 0 furosemide [Lasix] 40 mg tablet 20 mg PO DAILY Qty: 7 RF: 0 Held clopidogrel 75 MG tablet 75 mg PO DAILY RF: 0 Hold Instructions: Resume on 09/29/21. Hold until follow up with GI Discontinued tizanidine 4 MG capsule 4 mg PO QHS PRN (Reason: Spasms) RF: 0 Referrals / Follow Up: Kemar Phelps DO [STAFF PHYSICIAN] - [facility] [Primary [facility] - In 1 Week Disposition Disposition (needs filled in before D/C Order can be placed): Jail Facility
[2021-09-16] MEDS: Potassium Chloride Oral Tablet 20 MEQ 40 MEQ PO (10:48)
[2021-09-16] MEDS: Folic Acid 1 MG Tablet PO (10:48)
[2021-09-16] MEDS: Thiamine Hydrochloride 100 MG Tablet PO (10:48)
[2021-09-16] MEDS: Spironolactone 25 MG Tablet PO (10:48)
[2021-09-16] MEDS: Smz/Tmp Ds Tablet 1 TABLET PO (10:48)
[2021-09-16] MEDS: Citalopram 20 MG Tablet PO (10:49)
[2021-09-16] MEDS: Magnesium Chloride 64 MG Delay Rel.Tablet 128 MG PO (10:49)
[2021-09-16] MEDS: Menthol/Lanolin/Calamine/Znox 113 GM Tube 1 APPLIC TOPICAL (10:49)
[2021-09-16] MEDS: Furosemide 20 MG Tablet PO (10:49)
--- NOTE | 2021-09-16 10:49 | PCM.DC.SUM ---
Documented by User: Debbie Cantu NP, QUALITY CONTROL EXPERT-C 09/16/21 12:31 Providers Date of Admission: 09/08/21 Date of Discharge: 09/16/21 Primary Care Physician: [facility] Consultations 09/09/21 07:17 Consult: Gastroenterology Routine Consulting Provider: Shena Dougherty Reason for Consult: GI bleed EMERGENT Consult: No MD Notified: Yes Date Notified: 09/09/21 Time Notified: 08:01 Method of Notification: Text Reason For Visit: AMS Diagnosis Discharge Diagnosis (1) Cirrhosis: Status: Acute Code(s): K74.60 - Unspecified cirrhosis of liver Qualifiers: Ascites presence: with ascites Hepatic cirrhosis type: unspecified hepatic cirrhosis Qualified Code(s): K74.60 - Unspecified cirrhosis of liver; R18.8 - Other ascites Medications at Discharge Home Medications clopidogrel 75 mg PO DAILY 09/10/16 folic acid 1 mg PO DAILY@0800 09/10/16 budesonide-formoterol 2 puff IH BID 04/25/19 cholecalciferol (vitamin D3) 2,000 unit PO DAILY 04/25/19 amlodipine 5 mg PO BID 06/05/19 atorvastatin 80 mg PO QHS 06/05/19 albuterol sulfate 2 puff INHALATION Q4H PRN PRN #1 inhaler 06/16/19 thiamine HCl (vitamin B1) 100 mg PO DAILYCM #30 tab 06/16/19 buspirone 20 mg PO BID 11/03/19 acetaminophen 325 mg tablet 650 mg PO Q6H PRN PRN tab 10/25/20 bupropion HCl 150 mg PO DAILY 11/20/20 citalopram 20 mg PO DAILY 11/20/20 magnesium oxide 400 mg PO DAILY 11/20/20 buprenorphine 1 patch TRANSDERMAL FR 09/09/21 ciprofloxacin HCl [Cipro] 750 mg PO .q week #1 tab 09/15/21 pantoprazole 40 mg PO BID #0 tab 09/15/21 potassium chloride [Klor-Con M20] 40 meq PO DAILY #0 tab 09/15/21 rifaximin [Xifaxan] 550 mg PO BID #0 tab 09/15/21 spironolactone 25 mg PO DAILY #0 tab 09/15/21 sulfamethoxazole-trimethoprim 1 tab PO BID #0 tab 09/15/21 furosemide [Lasix] 20 mg PO DAILY #7 tab 09/16/21 metoprolol tartrate 100 mg PO BID #0 tab 09/16/21 Hospital Course Procedures Colonoscopy, EGD and Peg tube placement Summary of Care Provided Hospital Course: Patient is a 61-year-old male admitted 09/08/2021 due to weakness. 1. Acute toxic and metabolic encephalopathy-secondary to decompensated cirrhosis, electrolyte disturbances, acute kidney injury, alcohol withdrawal- improved. Continue ongoing management per below. 2. Decompensated cirrhosis secondary to underlying alcoholic hepatitis with associated ascites, portal hypertension, esophageal varices and hyperammonia-status post large-volume paracentesis 09/12/2021. Patient received albumin following procedure. Cipro and Bactrim indefinitely for SBP prevention. Continue Lasix, Aldactone. Lactulose held due to persistent diarrhea. Continue follow-up with GI. 3. Acute on Chronic pancytopenia/Anemia-secondary to alcoholic cirrhosis, iron deficiency anemia. Patient underwent EGD 09/10 and colonoscopy 09/11 secondary to anemia/hematemesis/occult blood positive stool which demonstrated grade 2 varices in the lower third of the esophagus which were successfully banded, type I gastroesophageal varices with no bleeding in the gastric fundus, diverticulosis in the rectosigmoid colon, in the sigmoid colon and in the descending colon, hemorrhoids on perianal exam. 1 unit PRBC for hemoglobin less than 7. Follow CBC at SNF. Continue PPI. Continue follow-up with GI as noted above. 4. Electrolyte disturbances including hypokalemia, hyponatremia/hypernatremia, hypomagnesia, hypophosphatemia- replaced per protocol, trend labs at SNF. Magnesium, phosphorus now normal. Continue scheduled potassium supplement. Patient initially with hyponatremia however now mildly hypernatremic, stable. 5. Acute kidney injury-initially resolved however creatinine this morning again increased. Hold nephrotoxic regimen and follow BMP at SNF. 6. Moderate oropharyngeal dysphagia/moderate esophageal dysphagia-continue dietary modifications and aspiration precautions per speech therapy recommendations. Due to significant ongoing aspiration risk, will discuss with family PEG tube vs comfort measures. Healthcare power of ip attorney as well as patient amendable to proceed with PEG tube. PEG tube placed 09/14/21. Continue tube feed as ordered by dietitian. 7. Failure to thrive-found at home in very poor condition. Debilitated. PT/OT. SNF at discharge and will likely need long-term placement. 8. Severe protein calorie malnutrition-secondary to cachectic appearance with very poor oral intake, recent weight loss, evidence of muscle and fat loss. Continue dietary supplementation per nutrition recommendation. 9. Alcohol withdrawal, chronic alcoholism-completed phenobarb taper. No evidence of active withdrawal. 10. CAD with history of PTCA/PCI-continue statin, Plavix, metoprolol. 11. Bilateral carotid stenosis-on statin, Plavix 12. Chronic alcoholism-advised cessation. No withdrawal during admission. Continue folic acid, thiamine supplementation. 13. Depression/anxiety/agoraphobia-on Celexa, BuSpar. Follows with psychiatry. 14. GERD-on PPI. 15. Chronic COPD-no exacerbation. As needed albuterol aerosol. 16. Hypertension-continue amlodipine, metoprolol. 17. RENETTA- per patient, not on pap therapy. Physical Exam Const alert Orientation / Consciousness: awake and oriented to person Nutritional Appearance: cachectic HEENT normocephalic Mouth: dry mucous membranes Eyes PERRL, EOMs intact bilaterally and conjunctivae normal Neck no lymphadenopathy Resp Auscultation: rhonchi and diminished lung sounds Cardio regular rate, regular rhythm and no murmurs Peripheral Pulses: pulses 2+ throughout GI normal to inspection, nondistended, normoactive bowel sounds, non-tender and non-distended Extremity normal to inspection General Extremity: edema bilateral lower extremity Skin no rashes or lesions noted Lesions: no lesions Rashes: no rashes Trauma: no lacerations or abrasions Neuro CN's II-XII intact bilaterally, no focal motor deficits, no sensory deficits noted and deep tendon reflexes 2+ bilaterally Psych mental status grossly normal Mood & Affect: flat affect Patient seen and examined prior to discharge. Physical assessment as noted above. Patient is stable for discharge with follow up recommendations as noted above. This patient was seen by ROSSANA Mcintosh under the supervision of Dr. Merino. Time spent examining patient, reviewing data and subsequent management of care: 27 minutes Medical Records Data Medical Nutrition Assessment Dietitian: Malnutrition Criteria Met Start: 09/14/21 11:28 Freq: Status: Active Protocol: Document 09/16/21 08:38 DO (Rec: 09/16/21 08:38 [facility] [id number]) Nutrition Malnutrition Evidence of Malnutrition Exists Yes Malnutrition (severe): Acute Illness/Injury Evidenced By Suboptimal Energy Intake ( Severe),Physical Changes ( Moderate) Intake Problem Inadequate Oral Intake Etiology related to altered mental status, swallowing difficulty Signs/Symptoms as evidenced by estimated energy intake meeting <50% of estimated energy needs >5 days Status Active Problem Clinical Problem Acute Disease or Injury Related Malnutrition Etiology severe, acute (on likely chronic malnutrition) related to inadequate energy intake d/ t swallowing difficulty, altered mental status Signs/Symptoms as evidenced by estimated energy intake meeting <50% of estimated energy needs >5 days ; moderate muscle wasting/fat loss per physical exam Status Active Problem Recommendation Dietitian Recommendations/Changes 1) Vital AF 1.2 at goal rate of 60mL/hour w/ 100mL H2O flush every 4 hours to provide 1728 calories, 108 g protein, and 1767mL fluid/day. Continue to increase by 15mL/ hour every 8 to 12 hours as tolerated until goal rate is achieved. As ordered, enteral nutrition at goal rate will meet 100% of estimated nutritional needs. 2) Close monitoring of electrolytes, concerns for refeeding syndrome. Daily wts. 3) Will adjust enteral nutrition if able to consume more sufficient nutrition via PO diet. Weight / BMI Weight Weight: 141 lb 8.588 oz Body Mass Index (BMI) 24.5 ABG / Lab / Microbiology Data Result Diagrams: 09/16/21 06:34 09/16/21 06:34 Laboratory: Laboratory Results - last 24 hr 09/16/21 06:34: Sodium 149 H, Potassium 3.2 L, Chloride 122 H, Carbon Dioxide 19.0 L, Anion Gap 8, BUN 26 H, Creatinine 1.89 H, Estim Creat Clear Calc 37.04, Est GFR (MDRD) Af Amer 47 L, Est GFR (MDRD) Non-Af 39 L, BUN/Creatinine Ratio 13.8, Glucose 117 H, Calcium 8.0 L, Phosphorus 2.4 L, Magnesium 2.5 09/16/21 06:34: WBC 5.5, RBC 2.46 L, Hgb 6.2 L, Hct 22.3 L, MCV 90.7, MCH 25.2 L, MCHC 27.8 L, RDW Std Deviation 72.4 H, RDW Coeff of Donnie 23.4 H, Plt Count 62 L, MPV 12.0, Immature Gran % (Auto) 1.100 H, Neut % (Auto) 72.8 H, Lymph % (Auto) 14.8 L, Wayne % (Auto) 10.2 H, Eos % (Auto) 0.9, Baso % (Auto) 0.2, Absolute Neuts (auto) 4.0, Absolute Lymphs (auto) 0.81 L, Nucleated RBC % 0.9, Platelet Estimate MKD DEC, Anisocytosis 2+, Crenated Cell 1+, Schistocytes RARE Microbiology: Microbiology 09/16/21 08:51 Nasal Secretion SARS-CoV-2 Antigen (Rapid) - Final 09/12/21 Unknown Fluid - Paracentesis (Abd) Gram Stain - Final 09/12/21 Unknown Fluid - Paracentesis (Abd) Body Fluid Culture - Final No growth aerobically. 09/12/21 Unknown Fluid - Paracentesis (Abd) Anaerobic Culture - Preliminary No growth in 48 hours. 09/08/21 14:15 Stool Stool Occult Blood (OLAYINKA) - Final Occult Blood Positive 09/08/21 13:30 Nasal Secretion SARS-CoV-2 & FLU Antigen (Rapid) - Final Meaningful Use Info Meaningful Use Diagnoses (Choose all that apply): None applicable Discharge Plan Admission Admit Date/Time: 09/08/21 14:26 Primary Reason for Your Visit: Decompensated cirrhosis Attending Provider: Luis Miguel Merino Primary Care Provider: [facility] Consulting Providers: Prachi Wick Instructions Patient Instructions: Paracentesis Dc Additional Instructions / Restrictions: Recommend palliative referral at DC. Give meds through PEG tube if able. Discharge Orders/Prescriptions Prescriptions: New spironolactone 25 mg Tablet 25 mg PO DAILY Qty: 0 RF: 0 sulfamethoxazole-trimethoprim 800-160 mg Tablet 1 tab PO BID Qty: 0 RF: 0 Xifaxan 550 mg Tablet 550 mg PO BID Qty: 0 RF: 0 potassium chloride [Klor-Con M20] 20 mEq Tablet,Er Particles/Crystals 40 meq PO DAILY Qty: 0 RF: 0 ciprofloxacin HCl [Cipro] 250 mg tablet 750 mg PO .q week Qty: 1 RF: 0 Continued acetaminophen 325 mg tablet 650 mg PO Q6H PRN PRN (Reason: Pain Score 1-10/10) RF: 0 folic acid 1 MG tablet 1 mg PO DAILY@0800 RF: 0 cholecalciferol (vitamin D3) 1,000 UNIT tablet 2,000 unit PO DAILY RF: 0 budesonide-formoterol 6 GM HFA aerosol inhaler 2 puff IH BID RF: 0 atorvastatin 80 MG tablet 80 mg PO QHS RF: 0 amlodipine 5 MG tablet 5 mg PO BID RF: 0 thiamine HCl (vitamin B1) 100 MG tablet 100 mg PO DAILYCM Qty: 30 RF: 0 albuterol sulfate 1 INHALER inhaler 2 puff inhalation Q4H PRN PRN (Reason: Sob &/Or Wheezing) Qty: 1 RF: 0 buspirone 5 MG tablet 20 mg PO BID RF: 0 citalopram 20 MG tablet 20 mg PO DAILY RF: 0 magnesium oxide 400 MG tablet 400 mg PO DAILY RF: 0 bupropion HCl 150 MG tablet extended release 24 hr 150 mg PO DAILY RF: 0 buprenorphine 20 mcg/hour patch weekly 1 patch transdermal FR RF: 0 metoprolol tartrate 100 MG tablet 100 mg PO BID Qty: 0 RF: 0 Changed pantoprazole 20 MG tablet,delayed release (DR/EC) 40 mg PO BID Qty: 0 RF: 0 furosemide [Lasix] 40 mg tablet 20 mg PO DAILY Qty: 7 RF: 0 Held clopidogrel 75 MG tablet 75 mg PO DAILY RF: 0 Hold Instructions: Resume on 09/29/21. Hold until follow up with GI Discontinued tizanidine 4 MG capsule 4 mg PO QHS PRN (Reason: Spasms) RF: 0 Referrals / Follow Up: Kemar Phelps DO [STAFF PHYSICIAN] - [facility]Primary [facility] - In 1 Week Disposition Disposition (needs filled in before D/C Order can be placed): [facility] Documented by User: Dr. Luis Miguel Merino MD 09/16/21 15:07 Providers Date of Admission: 09/08/21 Reason For Visit: AMS Medications at Discharge Home Medications clopidogrel 75 mg PO DAILY 09/10/16 folic acid 1 mg PO DAILY@0800 09/10/16 budesonide-formoterol 2 puff IH BID 04/25/19 cholecalciferol (vitamin D3) 2,000 unit PO DAILY 04/25/19 amlodipine 5 mg PO BID 06/05/19 atorvastatin 80 mg PO QHS 06/05/19 albuterol sulfate 2 puff INHALATION Q4H PRN PRN #1 inhaler 06/16/19 thiamine HCl (vitamin B1) 100 mg PO DAILYCM #30 tab 06/16/19 buspirone 20 mg PO BID 11/03/19 acetaminophen 325 mg tablet 650 mg PO Q6H PRN PRN tab 10/25/20 bupropion HCl 150 mg PO DAILY 11/20/20 citalopram 20 mg PO DAILY 11/20/20 magnesium oxide 400 mg PO DAILY 11/20/20 buprenorphine 1 patch TRANSDERMAL FR 09/09/21 ciprofloxacin HCl [Cipro] 750 mg PO .q week #1 tab 09/15/21 pantoprazole 40 mg PO BID #0 tab 09/15/21 potassium chloride [Klor-Con M20] 40 meq PO DAILY #0 tab 09/15/21 rifaximin [Xifaxan] 550 mg PO BID #0 tab 09/15/21 spironolactone 25 mg PO DAILY #0 tab 09/15/21 sulfamethoxazole-trimethoprim 1 tab PO BID #0 tab 09/15/21 furosemide [Lasix] 20 mg PO DAILY #7 tab 09/16/21 metoprolol tartrate 100 mg PO BID #0 tab 09/16/21 Hospital Course Summary of Care Provided Hospital Course: This patient was seen in conjunction with QUALITY CONTROL EXPERT, Debbie. I have independently interviewed and examined the patient and reviewed pertinent history, examination findings, laboratory and plan of management. I have reviewed the note and agree with the documented findings with the few additional points. In brief, patient is 61-year-old gentleman with history of chronic alcohol use and dependence, stroke and other comorbidities admitted with generalized weakness. He was found not responding to his friend, covered in his own feces and urine found to be cold. He was somnolent therefore brought to ED by EMS and admitted. Assessment and plan 1. Decompensated cirrhosis most likely alcoholic cirrhosis with gastroesophageal varices, ascites and toxic metabolic encephalopathy. Patient seen by repairer sash and door and had EGD today. Patient had EGD reported grade 2 esophageal varices, incompletely eradicated, banded. Z-line irregular, medium-sized hiatus hernia. GOV 1 without bleeding. Single duodenal polyp. Full liquid diet recommended. On lactulose. Patient had diagnosis of esophageal varices on previous EGD in 2014. Ceftriaxone 1 g daily for possible GI bleed in the setting of ascites as he is high risk for SBP. Calculated MELD Na is 16, less than 2% estimated 90-day mortality. 09/11: Plan for colonoscopy today. 09/12: Diverticulosis in the rectosigmoid, sigmoid colon and descending colon. Hemorrhoidal. Patient is scheduled for diagnostic paracentesis. Looks very dehydrated. IV fluid D5 0.2 NS with KCl for nutritional purposes And hydration. Oropharyngeal dysphagia, on modified dysphagia diet under supervision as per speech therapist. 09/13: Patient is very dehydrated therefore D5W for nutritional support. Lactulose discontinued as patient having severe diarrhea. Patient looks very weak and dehydrated. Patient had large-volume paracentesis total of 2350 mL. IV albumin was given. In peritoneal fluid, absolute neutrophil cell count shows 6, 24% with total cell count 36. 76% mononuclear cells. Glucose is elevated 114. Total protein 1.0. Our lab does not do peritoneal fluid albumin which is required to calculate SAG. It is not consistent with SBP or secondary peritonitis as glucose will be very low and WBC count will be high in secondary peritonitis. 09/14: On acetic fluid, fluid culture does not show any organism. Cytology negative for malignant cells. Continue medical management with furosemide, spironolactone and cannot take lactulose for diarrhea but can take Xifaxan if he cannot swallow otherwise after PEG tube insertion 09/15: Tube feed started as per recommendation of blind lacer. Patient has hypernatremia, sodium 147, chloride 121, bicarb 19 anion gap 7 suggestive of normal anion gap metabolic acidosis. Free water 150 mill every 4 to address hypernatremia. Hypernatremia improving. 2. Acute on chronic anemia most likely due to cirrhosis/chronic iron deficiency anemia, hyponatremia, severe protein calorie malnourished with evidence of loss of subcutaneous fat and mild to moderate atrophy of muscles of extremity. 09/11: Hemoglobin 7.7. 09/12: Hemoglobin remains low, 7.3, MCV normal. Thrombocytopenia 72,000. Acute anemia probably due to chronic blood loss anemia from varices. IV iron to 50 mg ordered. Patient has paracentesis. Cell count and chemistry pending. 09/13: Hemoglobin 7.2, platelet count 54,000 due to cirrhosis with significant gastroesophageal varices. 09/14: 1 L PRBC transfusion ordered. 09/15: Patient did not get blood transfusion yesterday but hemoglobin improved to 7.7. Platelet count 59,000. 09/16: Patient had drop in hemoglobin 6.2 and 1 unit of PRBC which was saved yesterday as transfused. Patient does not have any external bleeding but probably fluid shift with history of third spacing, cirrhosis and splenomegaly. 3. Hyponatremia, hypomagnesemia and hypophosphatemia: Electrolytes are being monitored and getting replaced as per lab abnormality. Hyponatremia is chronic mainly hypotonic hypervolemic hyponatremia from cirrhosis. On Neutra-Phos 09/11: Patient has hypokalemia and hypophosphatemia. On IV phosphate. Continue Neutra-Phos from tomorrow 09/12: Hypomagnesemia, hypokalemia: Electrolyte replacement ordered. 09/13: Hypokalemia probably due to severe diarrhea secondary to lactulose. Lactulose discontinued. IV potassium on replacement. Phosphorus 3.2. Magnesium 1.8. 09/14: Sodium level is better 3.7. Monitor electrolytes and replace accordingly. 09/15: Potassium 3.1. 09/16: Hypokalemia, potassium 3.2, hypernatremia. Free water flush increased to 200 mL every 4 hour for hypernatremia. Potassium replacement. 4. Bilateral carotid stenosis, history of a stroke. 5. Coronary artery status post PTCA/PCI in 2016. On Plavix. 6. FLEX stage I on CKD stage II possible HRS: Patient had 100 mL urine output last 16 hours which is less than 210 mL/h therefore stage I of FLEX. Patient also has fluctuation of creatinine clearance but usually it is around 80mL/min therefore he stays to CKD mainly due to fluid shift. Patient had colon prep and loose bowel movement for most probably prerenal. Patient has Shields catheter. 1 L Ringer lactate bolus and then 25 g of IV albumin. 09/12: Creatinine 1.07. BUN low suggestive of low muscle mass. There was improvement of urine output after Ringer lactate and IV albumin yesterday. IV albumin ordered today. 09/14: FLEX resolved. Patient failed modified barium swallow with significant moderate oropharyngeal dysphagia and moderate esophageal dysphagia. Patient also lethargic. There is significant risk of aspiration. I told about PEG tube to the patient but I think he is not comprehending therefore will discuss with family. Even with PEG tube there is significant risk of aspiration with patient's own salivary secretion and tube feed. Chest x-ray shows underventilated with atelectasis. Overall poor prognosis. Diffuse sarcopenia, low muscle mass and subcutaneous tissue. Severe protein calorie malnutrition. 09/14: I again discussed with patient's friend, Yaz. She was doubtful about going ahead with PEG tube or not as patient prognosis is poor in view of decompensated alcoholic cirrhosis severe malnutrition physically debilitated. After explaining prognosis, she wants to go ahead with PEG tube insertion. Patient not ready for hospice care yet Patient prognosis is poor and family knows about that. Comfortable care. Follow with the family for hospice care discussion. I have discussed my assessment with QUALITY CONTROL EXPERTDebbie and orders have been reviewed. Total time of the visit including total time spent in counseling or coordination of care, (more than 50% of the total time, spent in obtaining medical information from nurses and other ancillary care providers,explaining to the patient about labs, imaging, diagnosis and management), , review of labs and imaging is 50 minutes. Debbie I spent 20 minutes and I spent 30 minutes Physical Exam Narrative Seen and examined on the day of discharge Patient had PEG tube placed on 09/14 and feeding was started on 09/15. Patient is on baseline mental status. Physical exam General: Alert Fluctuating orientation. Chronic debilitated HEENT: Atraumatic, PERRLA, EOMI, Normocephalic Oral: Oral mucosa dry. No significant movement of oropharyngeal muscles on exam. No Gingival or Mucosal Lesions/ Ulcerations Neck: Supple, No JVD, Negative Carotid Bruits Lungs: Air entry diminished in bilateral lung bases. Bilateral coarse wheezing. SOB on exertion Cardiovascular: Regular rate, Regular Rhythm, Normal S1, Normal S2, No murmurs Abdomen: Soft bowel movement. Abdomen distended, ascites. Shifting dullness present. Nontender. Bowel Sounds sluggish : Shields catheter. Urine output and 30 mL. No renal angle tenderness. No suprapubic tenderness. Extremities: No edema, Capillary Refill Less than 3 Seconds Skin: Multiple subcutaneous ecchymosis Musculoskeletal: ROM restricted over hip and knee joints. Stiffness of joints. Moderate atrophy of muscles of extremities Neurological: DTR 2+/4 and Symmetrical, Neuro grossly intact. No acute focal deficit Psych/Mental Status: Flat affect. ABG / Lab / Microbiology Data Result Diagrams: 09/16/21 06:34 09/16/21 06:34 Discharge Plan Admission Admit Date/Time: 09/08/21 14:26 Primary Reason for Your Visit: Decompensated cirrhosis Attending Provider: Luis Miguel Merino Primary Care Provider: [facility] Consulting Providers: Prachi Wick Instructions Patient Instructions: Paracentesis Dc Additional Instructions / Restrictions: Recommend palliative referral at DC. Give meds through PEG tube if able. Discharge Orders/Prescriptions Prescriptions: New spironolactone 25 mg Tablet 25 mg PO DAILY Qty: 0 RF: 0 sulfamethoxazole-trimethoprim 800-160 mg Tablet 1 tab PO BID Qty: 0 RF: 0 Xifaxan 550 mg Tablet 550 mg PO BID Qty: 0 RF: 0 potassium chloride [Klor-Con M20] 20 mEq Tablet,Er Particles/Crystals 40 meq PO DAILY Qty: 0 RF: 0 ciprofloxacin HCl [Cipro] 250 mg tablet 750 mg PO .q week Qty: 1 RF: 0 Continued acetaminophen 325 mg tablet 650 mg PO Q6H PRN PRN (Reason: Pain Score 1-10/10) RF: 0 folic acid 1 MG tablet 1 mg PO DAILY@0800 RF: 0 cholecalciferol (vitamin D3) 1,000 UNIT tablet 2,000 unit PO DAILY RF: 0 budesonide-formoterol 6 GM HFA aerosol inhaler 2 puff IH BID RF: 0 atorvastatin 80 MG tablet 80 mg PO QHS RF: 0 amlodipine 5 MG tablet 5 mg PO BID RF: 0 thiamine HCl (vitamin B1) 100 MG tablet 100 mg PO DAILYCM Qty: 30 RF: 0 albuterol sulfate 1 INHALER inhaler 2 puff inhalation Q4H PRN PRN (Reason: Sob &/Or Wheezing) Qty: 1 RF: 0 buspirone 5 MG tablet 20 mg PO BID RF: 0 citalopram 20 MG tablet 20 mg PO DAILY RF: 0 magnesium oxide 400 MG tablet 400 mg PO DAILY RF: 0 bupropion HCl 150 MG tablet extended release 24 hr 150 mg PO DAILY RF: 0 buprenorphine 20 mcg/hour patch weekly 1 patch transdermal FR RF: 0 metoprolol tartrate 100 MG tablet 100 mg PO BID Qty: 0 RF: 0 Changed pantoprazole 20 MG tablet,delayed release (DR/EC) 40 mg PO BID Qty: 0 RF: 0 furosemide [Lasix] 40 mg tablet 20 mg PO DAILY Qty: 7 RF: 0 Held clopidogrel 75 MG tablet 75 mg PO DAILY RF: 0 Hold Instructions: Resume on 09/29/21. Hold until follow up with GI Discontinued tizanidine 4 MG capsule 4 mg PO QHS PRN (Reason: Spasms) RF: 0 Referrals / Follow Up: Kemar Phelps DO [STAFF PHYSICIAN] - [facility] [Primary [facility] - In 1 Week Disposition Disposition (needs filled in before D/C Order can be placed): [facility]irement Facility Charges/Coding Visit Charges Inpatient E&M: 30091 Disch Hosp
[2021-09-16] MEDS: Nystatin/Triamcin Cream Tube 1 APPLIC TOPICAL (10:50)
[2021-09-16] MEDS: Cholecalciferol (VIT D3) 25 MCG TABLET (1,000 UNITS) 50 MCG PO (10:50)
[2021-09-16] MEDS: rifAXIMin 550 MG Tablet PO (10:50)
--- NOTE | 2021-09-16 11:09 | NURSING ---
Spoke with Debbie LEMON and made her aware of pt only opening eyes to his name. That he is unable to take his medications by mouth and very drowsy. Made her aware that he is on 2 liters of oxygen only having oxygen levels between 93-94%. Also made were aware of concerns with his lung songs being rhonchi and giving blood products. HANDBELL CHOIR DIRECTOR does not want to give lasix at this time due to kidney function.
--- NOTE | 2021-09-16 15:17 | NURSING ---
Called report to nurse Hampton at [facility]
--- NOTE | 2021-09-16 15:18 | PN_ITS ---
Subjective Subjective Patient has been tolerating the tube feeds. His abdomen has not become distended and he has not been leaking ascites from his PEG tube. Objective Data Objective Data Vital Signs: Vital Signs Temp Pulse Resp BP Pulse Ox 97.2 F L 84 18 100/53 L 96 09/16/21 14:14 09/16/21 14:14 09/16/21 14:14 09/16/21 14:14 09/16/21 14:14 Oxygen Flow Rate (L/min) [3] 2 Oxygen Flow Rate (L/min) [2] 2 Oxygen Flow Rate (L/min) 2 Oxygen Delivery Method [3] Nasal Cannula Oxygen Delivery Method [2] Nasal Cannula Oxygen Delivery Method [1 ( Room Air Initial Baseline)] Oxygen Delivery Method Nasal Cannula Weight: 141 lb 8.588 oz Body Mass Index (BMI) 24.5 Intake & Output: Intake and Output for Last 24 Hours 09/14/21 09/15/21 09/16/21 23:59 23:59 23:59 Intake Total 2014.00 / 5.00 2370 / 2370 953.91 / 953.91 Output Total 275 / 425 400 / 600 475 / 475 Balance 1740.00 / 1690.00 1970 / 1770 478.91 / 478.91 Medical Nutrition Assessment Dietitian: Malnutrition Criteria Met Start: 09/14/21 11:28 Freq: Status: Active Protocol: Document 09/16/21 08:38 DO (Rec: 09/16/21 08:38 DO [id number]) Nutrition Malnutrition Evidence of Malnutrition Exists Yes Malnutrition (severe): Acute Illness/Injury Evidenced By Suboptimal Energy Intake ( Severe),Physical Changes ( Moderate) Intake Problem Inadequate Oral Intake Etiology related to altered mental status, swallowing difficulty Signs/Symptoms as evidenced by estimated energy intake meeting <50% of estimated energy needs >5 days Status Active Problem Clinical Problem Acute Disease or Injury Related Malnutrition Etiology severe, acute (on likely chronic malnutrition) related to inadequate energy intake d/ t swallowing difficulty, altered mental status Signs/Symptoms as evidenced by estimated energy intake meeting <50% of estimated energy needs >5 days ; moderate muscle wasting/fat loss per physical exam Status Active Problem Recommendation Dietitian Recommendations/Changes 1) Vital AF 1.2 at goal rate of 60mL/hour w/ 100mL H2O flush every 4 hours to provide 1728 calories, 108 g protein, and 1767mL fluid/day. Continue to increase by 15mL/ hour every 8 to 12 hours as tolerated until goal rate is achieved. As ordered, enteral nutrition at goal rate will meet 100% of estimated nutritional needs. 2) Close monitoring of electrolytes, concerns for refeeding syndrome. Daily wts. 3) Will adjust enteral nutrition if able to consume more sufficient nutrition via PO diet. Lab / Micro Data Result Diagrams: 09/16/21 06:34 09/16/21 06:34 Labs: Laboratory Results - last 24 hr 09/15/21 08:14: Blood Type O POSITIVE, Antibody Screen NEGATIVE, Crossmatch See Detail 09/16/21 06:34: Sodium 149 H, Potassium 3.2 L, Chloride 122 H, Carbon Dioxide 19.0 L, Anion Gap 8, BUN 26 H, Creatinine 1.89 H, Estim Creat Clear Calc 37.04, Est GFR (MDRD) Af Amer 47 L, Est GFR (MDRD) Non-Af 39 L, BUN/Creatinine Ratio 13.8, Glucose 117 H, Calcium 8.0 L, Phosphorus 2.4 L, Magnesium 2.5 09/16/21 06:34: WBC 5.5, RBC 2.46 L, Hgb 6.2 L, Hct 22.3 L, MCV 90.7, MCH 25.2 L , MCHC 27.8 L, RDW Std Deviation 72.4 H, RDW Coeff of Donnie 23.4 H, Plt Count 62 L , MPV 12.0, Immature Gran % (Auto) 1.100 H, Neut % (Auto) 72.8 H, Lymph % (Auto) 14.8 L, [place] % (Auto) 10.2 H, Eos % (Auto) 0.9, Baso % (Auto) 0.2, Absolute Neuts (auto) 4.0, Absolute Lymphs (auto) 0.81 L, Nucleated RBC % 0.9, Platelet Estimate MKD DEC, Anisocytosis 2+, Crenated Cell 1+, Schistocytes RARE Micro: Microbiology 09/16/21 08:51 Nasal Secretion SARS-CoV-2 Antigen (Rapid) - Final 09/12/21 Unknown Fluid - Paracentesis (Abd) Gram Stain - Final 09/12/21 Unknown Fluid - Paracentesis (Abd) Body Fluid Culture - Final No growth aerobically. 09/12/21 Unknown Fluid - Paracentesis (Abd) Anaerobic Culture - Preliminary No growth in 48 hours. 09/08/21 14:15 Stool Stool Occult Blood (OLAYINKA) - Final Occult Blood Positive 09/08/21 13:30 Nasal Secretion SARS-CoV-2 & FLU Antigen (Rapid) - Final Physical Exam Const alert General Appearance: cooperative Orientation / Consciousness: oriented to person HEENT hearing grossly normal bilaterally Head and Scalp: normal to inspection Face and Sinus: face symmetric Nose: external nose normal Mouth: oral and palatal mucosa normal Eyes conjunctivae normal General Eye: normal appearance of both eyes Neck full ROM General: normal visual inspection Lymph Lymphatic: no lymphadenopathy noted Chest inspection of chest normal and palpation of chest normal Chest: symmetrical chest wall rise Resp normal respiratory effort Effort and Inspection: able to speak in complete sentences Cardio regular rate GI non-distended Percussion: normal to percussion Rectal Exam: deferred Neuro Speech: speech normal Assessment & Plan Assessment/Plan (1) Ascites: PLAN: Continue diuretic therapy with Lasix and Aldactone. Monitor potassium as an outpatient. (2) Anemia: QUALIFIERS: Anemia type: unspecified type Qualified Code(s): D64.9 - Anemia, unspecified PLAN: Hemoglobin seems to be stable. He did not get his 1 unit of packed red blood cells that was previously ordered due to his improving hemoglobin. 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 He is still decompensated at this time but improving. His meld is 20. He is not a transplant candidate due multiple issues including social issues and noncompl iance (4) Hyperammonemia: PLAN: .. Continue lactulose therapy via PEG tube twice a day to maintain 3 bowel movements a day. Charges/Coding Visit Charges Inpatient E&M: 84218 Subs Hosp L3
--- NOTE | 2021-09-16 17:04 | NURSING ---
Report given to EMS [facility]. EMS took over care
== END 2021-09-16 16:58 | disposition skilled nursing facility (03) | DRG 432 ==
LOC: ED 14:23 → MS3 16:49
PROVIDERS: Family Medicine; Internal Medicine Gastroenterology; Nurse Practitioner; Nurse Practitioner Family; Admitting Provider Internal Medicine; Emergency Provider Emergency Medicine; Visit Provider Internal Medicine
PROC: 0DJ08ZZ Inspection of Upper Intestinal Tract, Via Natural or Artificial Opening Endoscopic (ICD-10-PCS; CPT 43235; principal; 2021-09-10 08:30)
PROC: 0DJD8ZZ Inspection of Lower Intestinal Tract, Via Natural or Artificial Opening Endoscopic (ICD-10-PCS; CPT 45378; principal; 2021-09-11 16:10)
DX: K70.31 Alcoholic cirrhosis of liver with ascites (principal); E43 Unspecified severe protein-calorie malnutrition; I85.01 Esophageal varices with bleeding; G92.8 Other toxic encephalopathy; D61.818 Other pancytopenia; E87.0 Hyperosmolality and hypernatremia; N17.9 Acute kidney failure, unspecified; K76.6 Portal hypertension; D62 Acute posthemorrhagic anemia; E87.1 Hypo-osmolality and hyponatremia; K72.90 Hepatic failure, unspecified without coma; I48.91 Unspecified atrial fibrillation; J44.9 Chronic obstructive pulmonary disease, unspecified; Z93.1 Gastrostomy status; K57.30 Diverticulosis of large intestine without perforation or abscess without bleeding; K70.11 Alcoholic hepatitis with ascites; E83.39 Other disorders of phosphorus metabolism; E87.8 Other disorders of electrolyte and fluid balance, not elsewhere classified; K44.9 Diaphragmatic hernia without obstruction or gangrene; M51.16 Intervertebral disc disorders with radiculopathy, lumbar region; Q27.33 Arteriovenous malformation of digestive system vessel; K31.7 Polyp of stomach and duodenum; K52.9 Noninfective gastroenteritis and colitis, unspecified; E83.42 Hypomagnesemia; K29.70 Gastritis, unspecified, without bleeding; F41.9 Anxiety disorder, unspecified; I25.10 Atherosclerotic heart disease of native coronary artery without angina pectoris; F17.210 Nicotine dependence, cigarettes, uncomplicated; K21.9 Gastro-esophageal reflux disease without esophagitis; I16.0 Hypertensive urgency; E78.5 Hyperlipidemia, unspecified; I12.9 Hypertensive chronic kidney disease with stage 1 through stage 4 chronic kidney disease, or unspecified chronic kidney disease; N18.2 Chronic kidney disease, stage 2 (mild); I65.23 Occlusion and stenosis of bilateral carotid arteries; E87.6 Hypokalemia; E86.0 Dehydration; G47.33 Obstructive sleep apnea (adult) (pediatric); I25.2 Old myocardial infarction; Z79.02 Long term (current) use of antithrombotics/antiplatelets; F32.A Depression, unspecified; Z95.5 Presence of coronary angioplasty implant and graft; G89.29 Other chronic pain; Z79.51 Long term (current) use of inhaled steroids; R62.7 Adult failure to thrive; R13.12 Dysphagia, oropharyngeal phase; R73.9 Hyperglycemia, unspecified; Z79.899 Other long term (current) drug therapy; Z68.22 Body mass index [BMI] 22.0-22.9, adult
CPT/HCPCS: 36415; 49083; 70450; 71045; 71046; 74177; 74230; 80048; 80053; 80076; 80307; 81001; 81002; 82077; 82140; 82150; 82274; 82550; 82728; 82945; 83540; 83550; 83605; 83615; 83690; 83735; 83986; 84100; 84157; 84484; 85014; 85018; 85025; 85610; 86850; 86900; 86901; 86920; 86922; 87070; 87075; 87205; 87426; 87428; 87635; 88108; 88305; 88313; 88341; 88342; 89050; 92507; 92526; 92610; 92611; 93005; 94640; 97110; 97116; 97162; 97166; 97530; 97535; 97802; 97803; 99251; 99285; J7030; J7040; J7050; J7120; P9016; P9047; Q9967; A4216; G0463; J1940; J2405; J2916; U0003; U0005

== ENCOUNTER → 2021-09-18 | Outpatient (REF) | payer SELFPAY ==
[2021-09-18 08:28] LABS: Hematocrit 26.7 % (40-54); Hemoglobin 7.7 g/dL (13.0-16.5); Mean Corp Hgb Conc 28.8 g/dL (32-36); Mean Corpuscular Hgb 26.1 pg (27.0-32.0); Mean Corpuscular Volume 90.5 fL (80-94); Mean Platelet Vol. 11.3 fl (6.2-12.0); POSITIVE COUNT YES; POSITIVE MORPHOLOGY YES; Platelet Count 68 K/mm3 (150-450); RBC Distribution Width CV 23.2 % (11.6-14.6); RBC Distribution Width SD 67.3 fl (35.1-43.9); Red Blood Count 2.95 M/mm3 (4.6-6.2); White Blood Count 5.6 K/mm3 (4.4-11.0)
[2021-09-18 10:25] LABS: Anion Gap 7 (5-15); BUN 37 mg/dL (7-18); BUN/Creat Ratio 19.8 RATIO (10-20); Calcium,Total 8.5 mg/dL (8.5-10.1); Chloride 126 mmol/L (98-107); Creatinine, Serum 1.87 mg/dL (0.70-1.30); EST Glomerular Filtration Rate 39 mL/min (>60); Est Glom Filt Rate - Afr Amer 47 mL/min (>60); Glucose 107 mg/dL (74-106); Magnesium 1.9 mg/dL (1.6-2.6); Phosphorus 0.6 mg/dL (2.5-4.9); Potassium 4.2 mmol/L (3.5-5.1); Sodium Level 147 mmol/L (136-145)
== END | disposition home or self-care (01) ==
LOC: OLS.SW1020 04:00
PROVIDERS: Visit Provider Family Medicine
DX: K29.71 Gastritis, unspecified, with bleeding (principal); D64.9 Anemia, unspecified
CPT/HCPCS: 36415; 80048; 83735; 84100; 85027